=== PATIENT | male | born 1990 | race Caucasian/White ===

== ENCOUNTER 2017-10-03 16:45 | Inpatient (IN) | payer OTHER ==
[~2017-10-03] VITALS: Ht 182.9 cm; Wt 95.7 kg
[~2017-10-03 16:45] MED LIST: ALBU17I; ALLE24TA OR; AUGM875 PO; FLUTI44I INH; METH500T3 PO; NAPR-576 PO
[2017-10-03 16:46] VITALS: BP 120/62; PULSE 155; RESP 18; TEMP 101; O2SAT 98
[2017-10-03] MEDS ORDERED: ACETAMINOPHEN 500 MG CPLT PO ONE (17:30)
--- NOTE | 2017-10-03 17:56 | PD ---
HPI Chief Complaint: Cold / Flu Symptoms Time Seen by Provider: 17:54 Travel History International Travel<30 days: No Contact w/Intl Traveler<30days: No Traveled to known affect area: No History of Present Illness HPI 27-year-old male with remote history of IV drug abuse, states he last used heroin 2 months ago, presents to the emergency department for evaluation of 8 days of body aches, 7 days of diarrhea with development of subjective fever yesterday. Patient denies any nausea or vomiting. He denies any chest pain. States that he is short of breath and feels anxious. This has developed within the last 24 hours. Patient does have a cough with clear sputum. Denies any history of endocarditis. Denies any abdominal pain. Does report some left back pain, worse while lying flat. Patient also reports generalized weakness. He has no other symptoms to report at this time. [facility] Past Medical History Asthma: Yes Social History Alcohol Use: No Tobacco Use: Yes Substance Use: No Allergies-Medications (Allergen,Severity, Reaction): Coded Allergies: erythromycin base (Verified Allergy, Severe, Nausea/Vomiting, 10/03/17) raspberry (Unverified Allergy, Mild, 10/03/17) Reported Meds & Prescriptions Reported Meds & Active Scripts Active Robaxin (Methocarbamol) 500 Mg Tab 500 Mg PO QID Naproxen 500 Mg Tab 500 Mg PO BID Flovent Hfa (Fluticasone Propionate) 44 Mcg Aero 2 Puff INH BID Kelsie-D 24 Hour Allergy (Fexofenadine-Pseudoephedrine) 24 Hour Tab 24 Hour OR DAILY Augmentin (Amoxicillin/Clavulanate Potassium) 875 Mg Tab 875 Mg PO BID Reported Proventil Mdi (Albuterol Sulfate) 17 Gm Aero Review of Systems Except as stated in HPI: all other systems reviewed are Neg Physical Exam Narrative GENERAL: Well-nourished but toxic-appearing male patient, lying in bed, and mild distress. SKIN: Focused skin assessment warm/dry. HEAD: Atraumatic. Normocephalic. EYES: Pupils equal and round. No scleral icterus. No injection or drainage. ENT: No nasal bleeding or discharge. Mucous membranes dry. NECK: Trachea midline. No JVD. CARDIOVASCULAR: Tachycardic. No murmur appreciated. RESPIRATORY: Tachypneic mild accessory muscle use. Clear to auscultation. Breath sounds equal bilaterally. GASTROINTESTINAL: Abdomen soft, non-tender, nondistended. Hepatic and splenic margins not palpable. MUSCULOSKELETAL: No obvious deformities. No clubbing. No cyanosis. Trace lower extremity edema. Distal pulses are palpable. Cap refills within normal limits. NEUROLOGICAL: Awake and alert. No obvious cranial nerve deficits. Motor grossly within normal limits. Normal speech. Data Data Last Documented VS Vital Signs Date Time Temp Pulse Resp B/P (MAP) Pulse Ox O2 Delivery O2 Flow Rate FiO2 10/03/17 17:58 142 24 115/57 (76) 94 Room Air 10/03/17 16:46 101.0 Orders Orders Sepsis Workup Initiated (10/03/17 ) Complete Blood Count With Diff (10/03/17 17:01) Comprehensive Metabolic Panel (10/03/17 17:01) Urinalysis - C+S If Indicated (10/03/17 17:01) Lactic Acid Sepsis Protocol (10/03/17 17:01) Influenzae A/B Antigen (10/03/17 17:03) Electrocardiogram (10/03/17 ) Acetaminophen (Tylenol) (10/03/17 17:30) Westergren Sedimentation Rate (10/03/17 17:56) Sodium Chlor 0.9% 1000 Ml Inj (Ns 1000 M (10/03/17 17:57) Sodium Chlor 0.9% 1000 Ml Inj (Ns 1000 M (10/03/17 17:57) Sodium Chlor 0.9% 1000 Ml Inj (Ns 1000 M (10/03/17 17:57) Urine Culture (10/03/17 17:45) Chest, Single Ap (10/03/17 ) Vancomycin Inj (Vancomycin Inj) (10/03/17 18:30) Piperacil-Tazo 3.375 Gm Premix (Zosyn 3. (10/03/17 18:30) Admit Order (Ed Use Only) (10/03/17 18:42) Arterial Blood Gas (Abg) (10/03/17 ) Labs Laboratory Tests Test 10/03/17 17:30 10/03/17 17:45 Blood Urea Nitrogen 55 MG/DL Creatinine 2.21 MG/DL Random Glucose 109 MG/DL Total Protein 7.6 GM/DL Albumin 2.0 GM/DL Calcium Level 7.8 MG/DL Alkaline Phosphatase 109 U/L Aspartate Amino Transf (AST/SGOT) 25 U/L Alanine Aminotransferase (ALT/SGPT) 23 U/L Total Bilirubin 2.0 MG/DL Sodium Level 128 MEQ/L Potassium Level 3.2 MEQ/L Chloride Level 94 MEQ/L Carbon Dioxide Level 21.1 MEQ/L Anion Gap 13 MEQ/L Estimat Glomerular Filtration Rate 36 ML/MIN Lactic Acid Level 2.9 mmol/L Urine Color DARK-YELLOW Urine Turbidity HAZY Urine pH 5.5 Urine Specific [place] 1.018 Urine Protein 100 mg/dL Urine Glucose (UA) NEG mg/dL Urine Ketones NEG mg/dL Urine Occult Blood SMALL Urine Nitrite NEG Urine Bilirubin SMALL Urine Urobilinogen 4.0 MG/DL Urine Leukocyte Esterase SMALL Urine RBC 3 /hpf Urine WBC 12 /hpf Urine Bacteria RARE /hpf Urine Hyaline Casts 7 /lpf Urine Granular Casts 8 /lpf Microscopic Urinalysis Comment CULTURE INDICATED MDM Medical Decision Making Medical Screen Exam Complete: Yes Emergency Medical Condition: Yes Medical Record Reviewed: Yes Differential Diagnosis Sepsis versus pneumonia versus endocarditis versus PE Narrative Course 27-year-old male presents to emergency department for evaluation. Patient appears not well. He is tachycardic, tachypneic, and oxygen saturation on room air is 84-85%. Sepsis workup has been initiated. Discussed the patient my attending physician is also assessed the patient. Patient is given IV fluid boluses with IV Zosyn and IV Cipro vancomycin. I I discussed the patient with Dr. Mcallister, army manager personnel generalist manager. Patient will be admitted to the intensive care unit. CBC has not yet resulted as it is a reflex. Chest x-ray has not yet been completed. Laboratory Tests Test 10/03/17 17:30 10/03/17 17:45 Blood Urea Nitrogen 55 MG/DL Creatinine 2.21 MG/DL Random Glucose 109 MG/DL Total Protein 7.6 GM/DL Albumin 2.0 GM/DL Calcium Level 7.8 MG/DL Alkaline Phosphatase 109 U/L Aspartate Amino Transf (AST/SGOT) 25 U/L Alanine Aminotransferase (ALT/SGPT) 23 U/L Total Bilirubin 2.0 MG/DL Sodium Level 128 MEQ/L Potassium Level 3.2 MEQ/L Chloride Level 94 MEQ/L Carbon Dioxide Level 21.1 MEQ/L Anion Gap 13 MEQ/L Estimat Glomerular Filtration Rate 36 ML/MIN Lactic Acid Level 2.9 mmol/L Urine Color DARK-YELLOW Urine Turbidity HAZY Urine pH 5.5 Urine Specific [place] 1.018 Urine Protein 100 mg/dL Urine Glucose (UA) NEG mg/dL Urine Ketones NEG mg/dL Urine Occult Blood SMALL Urine Nitrite NEG Urine Bilirubin SMALL Urine Urobilinogen 4.0 MG/DL Urine Leukocyte Esterase SMALL Urine RBC 3 /hpf Urine WBC 12 /hpf Urine Bacteria RARE /hpf Urine Hyaline Casts 7 /lpf Urine Granular Casts 8 /lpf Microscopic Urinalysis Comment CULTURE INDICATED Diagnosis Primary Impression: Sepsis Qualified Codes: A41.9 - Sepsis, unspecified organism Admitting Information Admitting Physician Requests: Admit Condition: Stable LinetteGeraldine MCKEON Oct 03, 2017 17:56
[2017-10-03] MEDS ORDERED: SODIUM CHLOR 0.9% 1000 ML INJ 700 ML IV ONE (17:57)
[2017-10-03] MEDS ORDERED: SODIUM CHLOR 0.9% 1000 ML INJ 1,000 ML IV ONE ×2 (17:57)
[2017-10-03 17:58] VITALS: BP 115/57; PULSE 142; RESP 24; O2SAT 94
[2017-10-03 18:15] LABS: BACTERIA, URINE RARE /hpf; BILIRUBIN, URINE SMALL (NEG); BLOOD, URINE SMALL (NEG); GLUCOSE,URINE NEG (NEG); HYALINE CAST, URINE 7 /lpf (RARE); KETONE, URINE NEG (NEG); NITRITE,URINE NEG (NEG); PH, URINE 5.5 (5.0-8.5); URINE COLOR DARK-YELLOW (YELLW/STRAW); URINE LEUKOCYTE ESTERASE SMALL (NEG)
[2017-10-03 18:21] LABS: ALT (GPT) 23 U/L (12-78); AST (GOT) 25 U/L (15-37); BICARBONATE 21.1 MEQ/L (21.0-32.0); BLOOD UREA NITROGEN 55 MG/DL (7-18); CALCIUM 7.8 MG/DL (8.5-10.1); CHLORIDE 94 MEQ/L (98-107); CREATININE 2.21 MG/DL (0.60-1.30); GLOMERULAR FILTRATION RATE 36 ML/MIN (>89); GLUCOSE,RANDOM 109 MG/DL (74-106); SODIUM (NA) 128 MEQ/L (136-145)
[2017-10-03 18:24] LABS: ALKALINE PHOSPHATASE 109 U/L (45-117); TOTAL PROTEIN 7.6 GM/DL (6.4-8.2)
[2017-10-03 18:25] LABS: LACTIC ACID SEPSIS PROTOCOL 2.9 mmol/L (0.4-2.0)
[2017-10-03] MEDS ORDERED: VANCOMYCIN INJ 1,000 MG in SODIUM CHLOR 0.9% 250 ML INJ 250 ML IV ONE (18:30)
[2017-10-03] MEDS ORDERED: PIPERACIL-TAZO 3.375 GM PREMIX 50 ML IV SCH (18:30)
--- NOTE | 2017-10-03 18:56 | PD ---
Physical Exam Date Seen by Provider: Oct 03, 2017 Time Seen by Provider: 18:00 Narrative I, Dr. Sr , have reviewed the advance practice practitioner's documentation and am in agreement, met with the patient face to face, made the diagnosis, and the medical decision making was done by me. *My assessment and Findings: Patient seen and evaluated with nurse practitioner , please see practitioner note for further details, history of IV drug use, here for fevers, general weakness, dizziness, fairly tachycardic and hypoxic, fevers of 102, concerning for underlying sepsis. He is tachycardic as well and IV fluids are initiated in the ER. Sepsis protocol initiated in the ER. Considering the history of IV drug use, clear lungs, there is great concern for underlying endocarditis as well. Vancomycin and Zosyn was initiated in the ER. EKG shows sinus tachycardia. Laboratory Tests Test 10/03/17 17:30 10/03/17 17:45 Blood Urea Nitrogen 55 MG/DL (7-18) Creatinine 2.21 MG/DL (0.60-1.30) Random Glucose 109 MG/DL (74-106) Albumin 2.0 GM/DL (3.4-5.0) Calcium Level 7.8 MG/DL (8.5-10.1) Total Bilirubin 2.0 MG/DL (0.2-1.0) Sodium Level 128 MEQ/L (136-145) Potassium Level 3.2 MEQ/L (3.5-5.1) Chloride Level 94 MEQ/L (98-107) Estimat Glomerular Filtration Rate 36 ML/MIN (>89) Lactic Acid Level 2.9 mmol/L (0.4-2.0) Urine Color DARK-YELLOW (YELLW/STRAW) Urine Turbidity HAZY (CLEAR) Urine Protein 100 mg/dL (NEG-TRACE) Urine Occult Blood SMALL (NEG) Urine Bilirubin SMALL (NEG) Urine Urobilinogen 4.0 MG/DL (LESS THAN Urine Leukocyte Esterase SMALL (NEG) Urine WBC 12 /hpf (0-5) Urine Bacteria RARE /hpf (NONE) Lactate level is fairly elevated and patient is dehydrated with elevated BUN and creatinine a low sodium. Considering symptoms and history, my plan would be to admit the patient for further treatment in the ICU. Case has been discussed with Dr. Mcallister for admission. Aggregate critical care time was 30 minutes. Time to perform other separately billable procedures was not included in the critical care time. My time did not include minutes spent treating any other patients simultaneously or on activities that did not directly contribute to the patient's treatment. The services I provided to this patient were to treat and/or prevent clinically significant deterioration that could result in: Septic shock, cardiopulmonary compromise, endocarditis, I provided critical care services requiring my management, as noted below: Chart data review, documentation time, medication orders and management, vital sign assessments/reviewing monitor data, ordering and reviewing lab tests, ordering and interpreting/reviewing x-rays and diagnostic studies, care of the patient and discussion of the patient with the admitting physicians. Data Data Last Documented VS Vital Signs Date Time Temp Pulse Resp B/P (MAP) Pulse Ox O2 Delivery O2 Flow Rate FiO2 10/03/17 17:58 142 24 115/57 (76) 94 Room Air 10/03/17 16:46 101.0 Orders Orders Sepsis Workup Initiated (10/03/17 ) Complete Blood Count With Diff (10/03/17 17:01) Comprehensive Metabolic Panel (10/03/17 17:01) Urinalysis - C+S If Indicated (10/03/17 17:01) Lactic Acid Sepsis Protocol (10/03/17 17:01) Influenzae A/B Antigen (10/03/17 17:03) Electrocardiogram (10/03/17 ) Acetaminophen (Tylenol) (10/03/17 17:30) Westergren Sedimentation Rate (10/03/17 17:56) Sodium Chlor 0.9% 1000 Ml Inj (Ns 1000 M (10/03/17 17:57) Sodium Chlor 0.9% 1000 Ml Inj (Ns 1000 M (10/03/17 17:57) Sodium Chlor 0.9% 1000 Ml Inj (Ns 1000 M (10/03/17 17:57) Urine Culture (10/03/17 17:45) Chest, Single Ap (10/03/17 ) Vancomycin Inj (Vancomycin Inj) (10/03/17 18:30) Piperacil-Tazo 3.375 Gm Premix (Zosyn 3. (10/03/17 18:30) Admit Order (Ed Use Only) (10/03/17 18:42) Arterial Blood Gas (Abg) (10/03/17 ) Labs Laboratory Tests Test 10/03/17 17:30 10/03/17 17:45 Blood Urea Nitrogen 55 MG/DL Creatinine 2.21 MG/DL Random Glucose 109 MG/DL Total Protein 7.6 GM/DL Albumin 2.0 GM/DL Calcium Level 7.8 MG/DL Alkaline Phosphatase 109 U/L Aspartate Amino Transf (AST/SGOT) 25 U/L Alanine Aminotransferase (ALT/SGPT) 23 U/L Total Bilirubin 2.0 MG/DL Sodium Level 128 MEQ/L Potassium Level 3.2 MEQ/L Chloride Level 94 MEQ/L Carbon Dioxide Level 21.1 MEQ/L Anion Gap 13 MEQ/L Estimat Glomerular Filtration Rate 36 ML/MIN Lactic Acid Level 2.9 mmol/L Urine Color DARK-YELLOW Urine Turbidity HAZY Urine pH 5.5 Urine Specific [place] 1.018 Urine Protein 100 mg/dL Urine Glucose (UA) NEG mg/dL Urine Ketones NEG mg/dL Urine Occult Blood SMALL Urine Nitrite NEG Urine Bilirubin SMALL Urine Urobilinogen 4.0 MG/DL Urine Leukocyte Esterase SMALL Urine RBC 3 /hpf Urine WBC 12 /hpf Urine Bacteria RARE /hpf Urine Hyaline Casts 7 /lpf Urine Granular Casts 8 /lpf Microscopic Urinalysis Comment CULTURE INDICATED MDM Medical Record Reviewed: Yes Supervised Visit with TRAVIS: Yes Sepsis Criteria SIRS Criteria (2 or more): Heart rate over 90 Severe Sepsis (+one): Hypotension, Lactate >2, Acute Oliguria/Renal Failure Criteria Outcome: Meets severe sepsis criteria Diagnosis Primary Impression: Sepsis Qualified Codes: A41.9 - Sepsis, unspecified organism Admitting Information Admitting Physician Requests: Admit Condition: Stable Jose E Sr MD Oct 03, 2017 18:56
--- NOTE | 2017-10-03 19:19 | RADRPT ---
EXAM DATE/TIME: 10/03/2017 18:55 [place] COMPARISON: No previous studies available for comparison. INDICATIONS : Short of breath. MEDICAL HISTORY : None. SURGICAL HISTORY : None. ENCOUNTER: Initial ACUITY: 4 - 6 days PAIN SCORE: 3/10 LOCATION: Bilateral chest FINDINGS: A single view of the chest demonstrates scattered bilateral pulmonary infiltrates especially involvin g the mid to lower lung valdovinos. The heart size is upper limits of normal. No definite pleural effusio ns are demonstrated. The bony structures are grossly intact.. CONCLUSION: Bilateral patchy pulmonary infiltrates involving the mid to lower lung field bilaterally suggestive o f bilateral pneumonia. Victorino Vang MD on October 03, 2017 at 19:16 Board Certified Radiologist. This report was verified electronically.
[2017-10-03 19:33] VITALS: BP 120/56; PULSE 130; RESP 28; O2SAT 93
[2017-10-03 19:44] LABS: AUTOMATED NEUTROPHIL # 12.9 TH/MM3 (1.8-7.7); BASOPHIL % 0.2 % (0.0-2.0); EOSINOPHIL % 0.2 % (0.0-4.0); HEMOGLOBIN 8.8 GM/DL (13.0-17.0); LYMPH % 5.2 % (9.0-44.0); LYMPHOCYTE # 0.8 TH/MM3 (1.0-4.8); MEAN CELL VOLUME 83.6 FL (80.0-100.0); MEAN CORPUSCULAR HEMOGLOBIN 29.3 PG (27.0-34.0); MEAN CORPUSCULAR HGB CONC 35.1 % (32.0-36.0); MEAN PLATELET VOLUME 9.5 FL (7.0-11.0); MONO % 7.4 % (0.0-8.0); MONOCYTE # 1.1 TH/MM3 (0-0.9); RED BLOOD COUNT 2.99 MIL/MM3 (4.50-5.90); WHITE BLOOD COUNT 14.8 TH/MM3 (4.0-11.0)
[2017-10-03 20:08] LABS: PLATELET COUNT 120 TH/MM3 (150-450)
[2017-10-03 20:12] LABS: BANDS 11 % (0-6); LYMPHOCYTES 2 % (9-44); MONOCYTES 3 % (0-8); NEUTROPHIL # MANUAL DIFF 14.1 TH/MM3 (1.8-7.7); POLYS (SEG NEUTROPHILS) 84 % (16-70)
[2017-10-03 20:13] LABS: DOHLE BODIES PRESENT (NONE SEEN); TOXIC GRANULATION 1+ (NORMAL); TOXIC VACUOLATION PRESENT (NONE SEEN)
--- NOTE | 2017-10-03 20:16 | HHI.HP ---
[facility] Service Critical Care Medicine Primary Care Physician No Primary Care Physician Admission Diagnosis SEVERE SEPSIS; HYPOXIA Diagnosis: Travel History International Travel<30 Days: No Contact w/Intl Traveler <30 Da: No Traveled to Known Affected Are: No History of Present Illness 27-year-old male with remote history of IV drug abuse, states he last used heroin 2 months ago, presents for evaluation of 8 days of body aches, 7 days of diarrhea with development of subjective fever yesterday. Patient denies any nausea or vomiting. He denies any chest pain. States that he is short of breath and feels anxious. This has developed within the last 24 hours. Patient does have a cough with clear sputum. Denies any prior history of endocarditis. Denies any abdominal pain. Does report some left back pain, worse while lying flat. He is well reports generalized weakness. Review of Systems Constitutional: COMPLAINS OF: Diaphoretic episodes, Fatigue, Fever, Chills, Dizziness, Night Sweats, DENIES: Weight gain, Weight loss, Change in appetite Endocrine: DENIES: Heat/cold intolerance, Polydipsia, Polyuria, Polyphagia Eyes: DENIES: Blurred vision, Diplopia, Eye inflammation, Eye pain, Vision loss , Photosensitivity, Double Vision Ears, nose, mouth, throat: DENIES: Tinnitus, Hearing loss, Vertigo, Nasal discharge, Oral lesions, Throat pain, Hoarseness, Ear Pain, Running Nose, Epistaxis, Sinus Pain, Toothache, Odynophagia Respiratory: COMPLAINS OF: Cough, Sputum production, Shortness of breath, DENIES: Apneas, Snoring, Wheezing, Hemoptysis Cardiovascular: DENIES: Chest pain, Palpitations, Syncope, Dyspnea on Exertion , PND, Lower Extremity Edema, Orthopnea, Claudication Gastrointestinal: COMPLAINS OF: Diarrhea, DENIES: Abdominal pain, Black stools , Bloody stools, Constipation, Nausea, Vomiting, Difficulty Swallowing, Anorexia Genitourinary: DENIES: Sexual dysfunction, Urinary frequency, Urinary incontinence, Urgency, Hematuria, Dysuria, Nocturia, Penile Discharge, Testicular Pain, Testicular Swelling Musculoskeletal: COMPLAINS OF: Joint pain, Muscle aches, Back pain, DENIES: Stiffness, Joint Swelling, Neck pain Integumentary: DENIES: Abnormal pigmentation, Nail changes, Pruritus, Rash Hematologic/lymphatic: DENIES: Bruising, Lymphadenopathy Immunologic/allergic: DENIES: Eczema, Urticaria Neurologic: DENIES: Abnormal gait, Headache, Localized weakness, Paresthesias, Seizures, Speech Problems, Tremor, Poor Balance Psychiatric: DENIES: Anxiety, Confusion, Mood changes, Depression, Hallucinations, Agitation, Suicidal Ideation, Homicidal Ideation, Delusions Past Family Social History Allergies: Coded Allergies: erythromycin base (Verified Allergy, Severe, Nausea/Vomiting, 10/03/17) raspberry (Unverified Allergy, Mild, 10/03/17) Past Medical History Asthma Past Surgical History No surgical history Reported Medications Reported Meds & Active Scripts Active Robaxin (Methocarbamol) 500 Mg Tab 500 Mg PO QID Naproxen 500 Mg Tab 500 Mg PO BID Flovent Hfa (Fluticasone Propionate) 44 Mcg Aero 2 Puff INH BID Kelsie-D 24 Hour Allergy (Fexofenadine-Pseudoephedrine) 24 Hour Tab 24 Hour OR DAILY Augmentin (Amoxicillin/Clavulanate Potassium) 875 Mg Tab 875 Mg PO BID Reported Proventil Mdi (Albuterol Sulfate) 17 Gm Aero Active Ordered Medications Current Medications Medications (Trade) Dose Ordered Sig/Willem Route PRN Reason Start Time Stop Time Status Last Admin Dose Admin Sodium Chloride 1,000 ml @ 124 mls/hr Q8H4M IV 10/03/17 21:06 10/03/17 22:03 Sodium Chloride (NS Flush) 2 ml UNSCH PRN IV FLUSH FLUSH AFTER USING IV ACCESS 10/03/17 21:15 Sodium Chloride (NS Flush) 2 ml BID IV FLUSH 10/04/17 09:00 Acetaminophen (Tylenol) 650 mg Q6H PRN PO PAIN 1-5 AND/OR FEVER >101F 10/03/17 21:15 Morphine Sulfate (Morphine Inj) 2 mg Q2H PRN IV PUSH PAIN SCALE 6 TO 10 10/03/17 21:15 10/03/17 23:08 Famotidine (Pepcid Inj) 10 mg Q12HR IV PUSH 10/04/17 09:00 Lorazepam (Ativan Inj) 1 mg Q1H PRN IV PUSH Agitation/Sedation 10/03/17 21:15 Ondansetron HCl (Zofran Inj) 4 mg Q6H PRN IV PUSH NAUSEA OR VOMITING 10/03/17 21:15 Temazepam (Restoril) 15 mg HS PRN PO INSOMNIA 10/03/17 21:15 Albuterol/ Ipratropium (Duoneb Neb) 1 ampule Q6HR NEB INH 10/03/17 22:00 10/03/17 21:46 Albuterol/ Ipratropium (Duoneb Neb) 1 ampule Q2HR NEB PRN INH WHEEZING 10/03/17 21:15 Heparin Sodium (Porcine) (Heparin Inj) 5,000 units Q8H SQ 10/03/17 22:00 10/03/17 22:03 Miscellaneous Information 1 [id number] XX 10/03/17 21:15 Chlorhexidine Gluconate (Chlorhexidine 2% Cloth) 3 pack Taper DAILY@04 TOP 10/04/17 04:00 09/30/18 03:59 Chlorhexidine Gluconate (Chlorhexidine 2% Cloth) 3 pack UNSCH PRN TOP HYGIENIC CARE 10/03/17 21:15 Senna/Docusate Sodium (Renita-Colace) 1 tab BID PO 10/04/17 09:00 Magnesium Hydroxide (Milk Of Magnesia Liq) 30 ml Q12H PRN PO Mild constipation 10/03/17 21:15 Sennosides (Senokot) 17.2 mg Q12H PRN PO Moderate constipation 10/03/17 21:15 Bisacodyl (Dulcolax Supp) 10 mg DAILY PRN RECTAL SEVERE CONSITIPATION 10/03/17 21:15 Lactulose (Lactulose Liq) 30 ml DAILY PRN PO SEVERE CONSITIPATION 10/03/17 21:15 Pharmacy Profile Note 0 ml @ 0 mls/hr UNSCH OTHER 10/03/17 21:15 Piperacillin Sod/ Tazobactam Sod 100 ml @ 200 mls/hr Q6H IV 10/04/17 02:00 Azithromycin 500 mg/Sodium Chloride 250 ml @ 250 mls/hr Q24H IV 10/03/17 22:00 10/03/17 23:08 Family History No family history significant of malignancy Social History No alcohol abuse, positive for tobacco, he quit using heroin 2 months ago Physical Exam Vital Signs Vital Signs Date Time Temp Pulse Resp B/P (MAP) Pulse Ox O2 Delivery O2 Flow Rate FiO2 10/03/17 19:33 130 28 120/56 (77) 93 Nasal Cannula 4.00 10/03/17 17:58 142 24 115/57 (76) 94 Room Air 10/03/17 17:55 145 22 93 Room Air 10/03/17 16:46 101.0 155 18 120/62 (81) 98 Physical Exam GENERAL: Well-nourished, well-developed patient. SKIN: Warm and dry. HEAD: Normocephalic. EYES: No scleral icterus. No injection or drainage. NECK: Supple, trachea midline. No JVD or lymphadenopathy. CARDIOVASCULAR: Regular rate and rhythm without murmurs, gallops, or rubs. RESPIRATORY: Breath sounds equal bilaterally. No accessory muscle use. GASTROINTESTINAL: Abdomen soft, non-tender, nondistended. MUSCULOSKELETAL: No cyanosis, or edema. BACK: Nontender without obvious deformity. NEURO EXAM: GCS: 15 Mental Status: The patient is alert and oriented to person, place, and time with normal speech. Cranial Nerves: Visual acuity intact bilaterally. Visual valdovinos normal in all quadrants. Pupils are round, reactive to light. Extraocular movements are intact without ptosis. Hearing is normal bilaterally. Voice is normal. Tongue protrudes midline and moves symmetrically. Reflexes: Biceps, patellar, and Achilles are 2/4 bilaterally. No clonus. Sensation: Sensation is intact bilaterally to pain and light touch. Two-point discrimination is intact. Motor: Good muscle tone. Strength is 5/5 bilaterally. Cerebellar: [id number] and oizj-hu-[id number] test normal bilaterally. Laboratory Laboratory Tests Test 10/03/17 17:30 10/03/17 17:45 10/03/17 18:00 10/03/17 19:00 Blood Urea Nitrogen 55 Creatinine 2.21 Random Glucose 109 Total Protein 7.6 Albumin 2.0 Calcium Level 7.8 Alkaline Phosphatase 109 Aspartate Amino Transf (AST/SGOT) 25 Alanine Aminotransferase (ALT/SGPT) 23 Total Bilirubin 2.0 Sodium Level 128 Potassium Level 3.2 Chloride Level 94 Carbon Dioxide Level 21.1 Anion Gap 13 Estimat Glomerular Filtration Rate 36 Lactic Acid Level 2.9 Urine Color DARK-YELLOW Urine Turbidity HAZY Urine pH 5.5 Urine Specific [place] 1.018 Urine Protein 100 Urine Glucose (UA) NEG Urine Ketones NEG Urine Occult Blood SMALL Urine Nitrite NEG Urine Bilirubin SMALL Urine Urobilinogen 4.0 Urine Leukocyte Esterase SMALL Urine RBC 3 Urine WBC 12 Urine Bacteria RARE Urine Hyaline Casts 7 Urine Granular Casts 8 Microscopic Urinalysis Comment CULTURE INDICATED White Blood Count 14.8 Red Blood Count 2.99 Hemoglobin 8.8 Hematocrit 25.0 Mean Corpuscular Volume 83.6 Mean Corpuscular Hemoglobin 29.3 Mean Corpuscular Hemoglobin Concent 35.1 Red Cell Distribution Width 19.0 Platelet Count 120 Mean Platelet Volume 9.5 Neutrophils (%) (Auto) 87.0 Lymphocytes (%) (Auto) 5.2 Monocytes (%) (Auto) 7.4 Eosinophils (%) (Auto) 0.2 Basophils (%) (Auto) 0.2 Neutrophils # (Auto) 12.9 Lymphocytes # (Auto) 0.8 Monocytes # (Auto) 1.1 Eosinophils # (Auto) 0.0 Basophils # (Auto) 0.0 CBC Comment AUTO DIFF Differential Total Cells Counted 100 Neutrophils % (Manual) 84 Band Neutrophils % 11 Lymphocytes % 2 Monocytes % 3 Neutrophils # (Manual) 14.1 Differential Comment FINAL DIFF MANUAL Toxic Granulation 1+ Toxic Vacuolation PRESENT Dohle Bodies PRESENT Platelet Estimate LOW Platelet Morphology Comment ENLARGED Blood Gas Puncture Site LT RADIAL Blood Gas Patient Temperature 98.6 Venous Blood pH 7.47 Venous Blood Partial Pressure CO2 28 Venous Blood Partial Pressure O2 47 Venous Blood HCO3 20 Venous Blood Oxygen Saturation 79 Venous Blood Oxygen Content 7.8 Venous Blood Base Excess -2.9 Oxygen Delivery Device NASAL CANNULA Blood Gas Liter Flow 2 Blood Gas Inspired Oxygen 28 Date/Time Source Procedure Growth Status 10/03/17 17:40 Nasal Aspirate Influenza Types A,B Antigen (GIOVANA) - Final NEGATIVE FOR FLU A AND B ANTIGEN.... Complete 10/03/17 17:45 Urine Clean Catch Urine Culture Pending Worksheet Result Diagram: 10/03/17 1800 10/03/17 8250 Septic Shock Reassessment Septic shock perfusion: reassessment completed Caprini VTE Risk Assessment Caprini VTE Risk Assessment: Mod/High Risk (score >= 2) Caprini Risk Assessment Model Point Value = 1 Point Value = 2 Point Value = 3 Point Value = 5 Age 41-60 Minor surgery BMI > 25 kg/m2 Swollen legs Varicose veins or History of unexplained or recurrent spontaneous Oral contraceptives or hormone replacement Sepsis (< 1 month) Serious lung disease, including pneumonia (< 1 month) Abnormal pulmonary function Acute myocardial infarction Congestive heart failure (< 1 month) History of inflammatory bowel disease Medical patient at bed rest Age 61-74 Arthroscopic surgery Major open surgery (> 45 min) Laparoscopic surgery (> 45 min) Malignancy Confined to bed (> 72 hours) Immobilizing plaster cast Central venous access Age >= 75 History of VTE Family history of VTE Factor V Leiden Prothrombin [id number] Lupus anticoagulant Anticardiolipin antibodies Elevated serum homocysteine Heparin-induced thrombocytopenia Other congenital or acquired thrombophilia Stroke (< 1 month) Elective arthroplasty Hip, pelvis, or leg fracture Acute spinal cord injury (< 1 month) Prophylaxis Regimen Total Risk Factor Score Risk Level Prophylaxis Regimen 0-1 Low Early ambulation 2 Moderate Order ONE of the following: *Sequential Compression Device (SCD) *Heparin 5000 units SQ BID 3-4 Higher Order ONE of the following medications: *Heparin 5000 units SQ TID *Enoxaparin/Lovenox 40 mg SQ daily (WT < 150 kg, CrCl > 30 mL/min) *Enoxaparin/Lovenox 30 mg SQ daily (WT < 150 kg, CrCl > 10-29 mL/min) *Enoxaparin/Lovenox 30 mg SQ BID (WT < 150 kg, CrCl > 30 mL/min) AND/OR *Sequential Compression Device (SCD) 5 or more Highest Order ONE of the following medications: *Heparin 5000 units SQ TID (Preferred with Epidurals) *Enoxaparin/Lovenox 40 mg SQ daily (WT < 150 kg, CrCl > 30 mL/min) *Enoxaparin/Lovenox 30 mg SQ daily (WT < 150 kg, CrCl > 10-29 mL/min) *Enoxaparin/Lovenox 30 mg SQ BID (WT < 150 kg, CrCl > 30 mL/min) AND *Sequential Compression Device (SCD) Assessment and Plan Assessment and Plan Pneumonia - Broad-spectrum antibiotics - Panculture - Follow-up culture and sensitivity - De-escalate - Urine antigens - HIV testing Acute kidney injury - Severe dehydration - Aggressive IV fluids resuscitation - Strict I's and O's - Monitor trend of creatinine - Electrolytes replacement per ICU protocol Diarrhea - Likely bilateral - IV fluids and supportive care History of heroine abuse - HIV testing - Control for withdrawal DVT GI prophylaxis - Teds SCDs - Subcutaneous heparin - Pepcid Critical Care: The total critical care time was 35 minutes. Time to perform other separately billable procedures was not included in the critical care time. Abel Mcallister MD Oct 03, 2017 8:16 pm
[2017-10-03] MEDS ORDERED: CHLORHEXIDINE GLUCONATE 2 % 1 PACK (2 CLOTHS) TOP PRN (21:15)
[2017-10-03] MEDS ORDERED: LACTULOSE SYRUP 20 GM/30 ML CUP PO PRN (21:15)
[2017-10-03] MEDS ORDERED: BISACODYL 10 MG SUPP RECTAL PRN (21:15)
[2017-10-03] MEDS ORDERED: Vancomycin Consult Pharmacy 1 EA OTHER SCH (21:15)
[2017-10-03] MEDS ORDERED: SENNOSIDES 8.6 MG TAB PO PRN (21:15)
[2017-10-03] MEDS ORDERED: MISCELLANEOUS NURSING INFORMATION XX SCH (21:15)
[2017-10-03] MEDS ORDERED: MAGNESIUM HYDROXIDE SUSP 30 ML CUP PO PRN (21:15)
[2017-10-03] MEDS ORDERED: LORazepam 2 MG/ML VIAL IV PUSH ONE (21:45)
[2017-10-03] MEDS: RESP: ALBUTEROL 2.5 MG/IPRATROPIUM 0.5 MG NEB (SCH) INH (21:46)
[2017-10-03 21:50] VITALS: O2SAT 96
[2017-10-03] MEDS: HEPARIN SODIUM - SQ 10,000 UNITS/ML VIAL SQ SCH (22:03)
[2017-10-03] MEDS: SODIUM CHLOR 0.9% 1000 ML INJ 1,000 ML IV SCH (22:03)
[2017-10-03 22:18] VITALS: BP 121/59; PULSE 123; RESP 26; TEMP 98.8; O2SAT 95
[2017-10-03 23:00] VITALS: BP 124/57; PULSE 124; RESP 24; TEMP 98.8; O2SAT 95
[2017-10-03] MEDS ORDERED: VANCOMYCIN 1,000 MG/NS 250 ML IV ONE ×2 (23:00)
[2017-10-03] MEDS: AZITHROMYCIN INJ 500 MG in SODIUM CHLOR 0.9% 250 ML INJ 250 ML IV SCH (23:08)
[2017-10-03] MEDS: MORPHINE SULFATE 4 MG/ML INJ IV PUSH PRN (23:08)
[2017-10-04] VITALS (24 sets, daily range): BP systolic 98–125; BP diastolic 54–79; PULSE 113–145; RESP 20–48; TEMP 99.2–103; O2SAT 88–100
[2017-10-04] MEDS ORDERED: POTASSIUM PHOSPHATE MONOBASIC 500 MG TAB PO PRN (01:00)
[2017-10-04] MEDS ORDERED: MAGNESIUM SULFATE INJ 2 GM in SODIUM CHLORIDE 0.9% INJ 96 ML IV PRN (01:00)
[2017-10-04] MEDS ORDERED: POTASSIUM CHLOR 40 MEQ PREMIX 100 ML IV PRN ×2 (01:00)
[2017-10-04] MEDS ORDERED: SODIUM PHOSPHATE INJ 30 MMOL in SODIUM CHLOR 0.9% 250 ML INJ 240 ML IV PRN (01:00)
[2017-10-04] MEDS ORDERED: POTASSIUM PHOSPHATE MONOBASIC 500 MG TAB PO/TUBE PRN (01:00)
[2017-10-04] MEDS ORDERED: MAGNESIUM OXIDE 400 MG TAB PO PRN (01:00)
[2017-10-04] MEDS ORDERED: MAGNESIUM SULFATE INJ 4 GM in SODIUM CHLORIDE 0.9% INJ 92 ML IV PRN (01:00)
[2017-10-04] MEDS ORDERED: POTASSIUM CHLOR 20 MEQ PREMIX 100 ML IV PRN ×2 (01:00)
[2017-10-04] MEDS ORDERED: POTASSIUM PHOSPHATE INJ 30 MMOL in SODIUM CHLOR 0.9% 250 ML INJ 250 ML IV PRN (01:00)
[2017-10-04] MEDS ORDERED: POTASSIUM CHLORIDE 25 MEQ EFFERVESCENT TAB PO PRN (01:00)
[2017-10-04] MEDS ORDERED: SODIUM CHLOR 0.9% 1000 ML INJ 1,000 ML IV ONE ×5 (01:00→12:30)
[2017-10-04] MEDS: MORPHINE SULFATE 4 MG/ML INJ IV PUSH PRN ×5 (01:20→12:54)
[2017-10-04] MEDS: ACETAMINOPHEN 325 MG TAB PO PRN ×2 (01:39→11:44)
[2017-10-04] MEDS: PIPERACIL-TAZO 4.5 GM PREMIX 100 ML IV SCH ×4 (02:18→20:00)
[2017-10-04] MEDS: CHLORHEXIDINE GLUCONATE 2 % 1 PACK (2 CLOTHS) TOP SCH (04:00)
[2017-10-04] MEDS: RESP: ALBUTEROL 2.5 MG/IPRATROPIUM 0.5 MG NEB (SCH) INH ×4 (04:00→20:27)
[2017-10-04 04:08] LABS: INTERNATIONAL NORMALIZED RATIO 1.4 RATIO; MEAN CORPUSCULAR HEMOGLOBIN 30.2 PG (27.0-34.0); MEAN PLATELET VOLUME 8.7 FL (7.0-11.0); PLATELET COUNT 93 TH/MM3 (150-450); PROTHROMBIN TIME - PATIENT 14.4 SEC (9.8-11.6); RED BLOOD COUNT 2.19 MIL/MM3 (4.50-5.90); RED CELL DISTRIBUTION WIDTH 18.8 % (11.6-17.2); WHITE BLOOD COUNT 8.9 TH/MM3 (4.0-11.0)
[2017-10-04 04:28] LABS: ALBUMIN 1.4 GM/DL (3.4-5.0); BICARBONATE 22.2 MEQ/L (21.0-32.0); CALCIUM 6.4 MG/DL (8.5-10.1); CREATININE 1.21 MG/DL (0.60-1.30); MAGNESIUM 2.2 MG/DL (1.5-2.5); PHOSPHORUS 3.4 MG/DL (2.5-4.9); TOTAL BILIRUBIN ADULT 1.2 MG/DL (0.2-1.0); TOTAL PROTEIN 5.8 GM/DL (6.4-8.2)
[2017-10-04] MEDS: HEPARIN SODIUM - SQ 10,000 UNITS/ML VIAL SQ SCH (05:08)
[2017-10-04 05:09] LABS: HEMATOCRIT 18.4 % (39.0-51.0); HEMOGLOBIN 6.6 GM/DL (13.0-17.0)
[2017-10-04] MEDS: SODIUM CHLOR 0.9% 1000 ML INJ 1,000 ML IV SCH ×3 (05:10→22:10)
[2017-10-04] MEDS ORDERED: POTASSIUM CHLORIDE 20 MEQ CONTROLLED RELEASE TAB PO ONE (06:00)
[2017-10-04] MEDS: POTASSIUM CHLOR 20 MEQ PREMIX 100 ML IV SCH ×2 (06:15→08:12)
[2017-10-04 07:42] LABS: BANDS 10 % (0-6); LYMPHOCYTES 1 % (9-44); MONOCYTES 8 % (0-8); POLYS (SEG NEUTROPHILS) 80 % (16-70)
[2017-10-04] MEDS: FAMOTIDINE 20 MG/2 ML VIAL IV PUSH SCH ×2 (08:09→22:33)
[2017-10-04] MEDS: LORazepam 2 MG/ML VIAL IV PUSH PRN ×3 (08:09→12:14)
[2017-10-04] MEDS: DOCUSATE SODIUM 50 MG/SENNA 8.6 MG TAB PO SCH ×2 (08:10→22:33)
[2017-10-04] MEDS: SODIUM CHLORIDE 0.9% FLUSH 10 ML FLUSH IV FLUSH SCH ×2 (08:12→22:10)
[2017-10-04] MEDS: FLUTICASONE PROPIONATE 44 MCG/ACT 10.6 GM INHALER INH SCH ×2 (09:00→21:00)
[2017-10-04] MEDS: METHOCARBAMOL 500 MG TAB PO SCH ×4 (09:00→22:33)
--- NOTE | 2017-10-04 12:22 | HHI.CCPN ---
Subjective Remarks/Hospital Course 27-year-old male with remote history of IV drug abuse, states he last used heroin 2 months ago, presents for evaluation of 8 days of body aches, 7 days of diarrhea with development of subjective fever yesterday. Patient denies any nausea or vomiting. He denies any chest pain. States that he is short of breath and feels anxious. This has developed within the last 24 hours. Patient does have a cough with clear sputum. Denies any prior history of endocarditis. Denies any abdominal pain. Does report some left back pain, worse while lying flat. He is well reports generalized weakness. 10/04/17: He is critically ill, remains febrile up to 103, tachycardic diaphoretic. large tricuspid valve vegetation on bedside echo, formal echo pending. Infectious disease consulted, CT surgery consult ordered. D/W Dr. Macias and Dr. Charles. CARMEN/senior revenue accountant consult ordered. Hb 6.6 getting 2U PRBC Objective Vital Signs Date Time Temp Pulse Resp B/P (MAP) Pulse Ox O2 Delivery O2 Flow Rate FiO2 10/04/17 11:13 103.0 134 28 103/59 97 10/04/17 07:42 Nasal Cannula 2.00 Intake and Output 10/04/17 10/04/17 10/05/17 08:00 16:00 00:00 Intake Total 5200 ml 530 ml Output Total 1150 ml Balance 4050 ml 530 ml Result Diagram: 10/04/17 0331 10/04/17 0331 Other Results Microbiology Date/Time Source Procedure Growth Status 10/03/17 17:40 Nasal Aspirate Influenza Types A,B Antigen (GIOVANA) - Final NEGATIVE FOR FLU A AND B ANTIGEN.... Complete 10/03/17 21:30 Urine Random Urine Legionella Antigen - Final PRESUMPTIVE NEGATIVE FOR LEGIONELLA P... Complete 10/03/17 21:30 Urine Random Urine Streptococcus pneumoniae Antigen (M - Final PRESUMPTIVE NEGATIVE FOR STREPTOCOCCU... Complete Laboratory Tests Test 10/03/17 19:00 Blood Gas Puncture Site LT RADIAL Blood Gas Patient Temperature 98.6 Venous Blood pH 7.47 (7.360-7.400) Venous Blood Partial Pressure CO2 28 mmHg (44-48) Venous Blood Partial Pressure O2 47 mmHg (35-40) Venous Blood HCO3 20 mmol/L (22-26) Venous Blood Oxygen Saturation 79 % (70-76) Venous Blood Oxygen Content 7.8 Vol % (9.0-17.0) Venous Blood Base Excess -2.9 mmol/L (-2-2) Oxygen Delivery Device NASAL CANNULA Blood Gas Liter Flow 2 L/M Blood Gas Inspired Oxygen 28 % Objective Remarks GENERAL: Well-nourished, well-developed patient. Critically ill, tachypneic diaphoretic and tachycardic SKIN: Warm and dry. Extensive tattoos limit skin exam HEAD: Normocephalic. EYES: No scleral icterus. No injection or drainage. NECK: Supple, trachea midline. No JVD or lymphadenopathy. CARDIOVASCULAR: Tachycardic, heart rate in 140s. S1-S2 normal with systolic murmur at the left sternal border. Large TV vegetation on bedside echo RESPIRATORY: Tachypnea. Using accessory muscle use. Coarse rhonchi and crackles GASTROINTESTINAL: Abdomen soft, non-tender, nondistended. MUSCULOSKELETAL: No cyanosis, or edema. NEURO EXAM: The patient is alert and oriented to person, place, and time with normal speech. Pupils are round, reactive to light. Motor and sensory exam grossly normal A/P Assessment and Plan Neuro IVDU: Watch closely for withdrawal -Use Ativan and morphine as needed Resp: Acute hypoxemic respiratory failure Probable septic emboli to the lung -Proceed with endotracheal intubation due to hypoxemic respiratory failure, and to facilitate CARMEN - Broad-spectrum antibiotics - DuoNeb q6hr and PRN - Panculture, Follow-up culture and sensitivity - Urine antigens - HIV testing CVS: Large tricuspid valve vegetation/ Severe sepsis - Bedside echo shows mild tricuspid regurgitation - Cardiology and CT surgery consult - Need CARMEN GI: Diarrhea - NPO, IV famotidine : Acute kidney injury - Severe dehydration - Aggressive IV fluids resuscitation - Strict I's and O's - Monitor trend of creatinine - Electrolytes replacement per ICU protocol ID: Tricuspid valve lymphadenitis Severe sepsis - SEE CVS plan for details. - Continue Zosyn and vancomycin for now - Infectious disease in home sales consultant, CARMEN pending Endo: -Electrolyte replacement per protocol Heme: Anemia requiring transfusion Thrombocytopenia - Transfuse 2 units PRBC - Monitor CBC, Coags - Thrombocytopenia base most likely from sepsis and DIC DVT GI prophylaxis - Teds SCDs - Avoid chemical DVT prophylaxis due to blood loss - Pepcid Critical Care: The total critical care time was 55 minutes. Time to perform other separately billable procedures was not included in the critical care time. Physician D/W Melvin Harmon, and Jaki Brown MD Oct 04, 2017 12:22
--- NOTE | 2017-10-04 12:48 | ECHRPT ---
Indication: endocarditis CONCLUSIONS Mildly dilated left ventricle. Hyperdynamic left ventricular systolic function is mildly reduced with an estimated ejection fractio n in the range of 45-50%. [id number] mitral valve regurgitation. No aortic valve regurgitation. There is mild tricuspid valve regurgitation. The estimated pulmonary arterial pressure is 40.7 mmHg. two vegetations 2.1 x 3.2 2.6 x .8 at the tricuspid valve The estimated pulmonary arterial pressure is 40.7 mmHg. BP: / HR: Rhythm: MEASUREMENTS (Male / Female) Normal Values Technical Quality:Good 2D ECHO LV Diastolic Diameter PLAX 5.9 cm 4.2 - 5.9 / 3.9 - 5.3 cm LV Systolic Diameter PLAX 4.7 cm IVS Diastolic Thickness 1.0 cm 0.6 - 1.0 / 0.6 - 0.9 cm LVPW Diastolic Thickness 1.2 cm 0.6 - 1.0 / 0.6 - 0.9 cm LV Relative Wall Thickness 0.4 RV Internal Dim ED PLAX 2.8 cm M-MODE Aortic Root Diameter MM 3.5 cm LA Systolic Diameter MM 3.1 cm LA Ao Ratio MM 0.9 AV Cusp Separation MM 2.8 cm DOPPLER TR Peak Velocity 277.0 cm/s TR Peak Gradient 30.7 mmHg Right Atrial Pressure 10.0 mmHg Pulmonary Artery Systolic Pressu 40.7 mmHg Right Ventricular Systolic Press 40.7 mmHg FINDINGS LEFT VENTRICLE Mildly dilated left ventricle. The left ventricular systolic function is mildly reduced with an estimated ejection fraction in the range of 45- 50%. RIGHT VENTRICLE Normal right ventricular size and systolic function. LEFT ATRIUM The left atrial size is normal. RIGHT ATRIUM The right atrial size is normal. ATRIAL SEPTUM Normal atrial septal thickness without atrial level shunting by limited color doppler interrogation. AORTA The aortic root and proximal ascending aorta are normal in size on limited imaging. MITRAL VALVE Structurally normal mitral valve. [id number] mitral valve regurgitation. AORTIC VALVE Trileaflet aortic valve. No aortic valve regurgitation. TRICUSPID VALVE Structurally normal tricuspid valve. There is mild tricuspid valve regurgitation. The estimated pulmonary arterial pressure is 40.7 mmHg. two vegetations 2.1 x 3.2 2.6 x .8 The estimated pulmonary arterial pressure is 40.7 mmHg. PULMONARY VALVE No pulmonary valve regurgitation or stenosis. VESSELS The inferior vena cava is normal in size. PERICARDIUM No pericardial effusion. Carlos Enrique Nicolas MD (Electronically Signed) Final Date:04 October 2017 12:47
[2017-10-04] MEDS ORDERED: MIDAZOLAM HCL 5 MG/ML VIAL (1 ML) ONE ×2 (12:49→13:55)
[2017-10-04] MEDS ORDERED: ETOMIDATE 40 MG/20 ML VIAL ONE ×2 (12:49→13:56)
[2017-10-04] MEDS ORDERED: ROCURONIUM INJ 50 MG/5 ML VIAL IV ONE (14:00)
[2017-10-04] MEDS ORDERED: MIDAZOLAM HCL 5 MG/5 ML VIAL IV PUSH ONE (14:00)
[2017-10-04] MEDS ORDERED: ETOMIDATE 20 MG/10 ML VIAL IV PUSH ONE (14:00)
--- NOTE | 2017-10-04 14:22 | PD.ID.CON ---
History of Present Illness Service ID Consult Requested By Reason for Consult Evaluation and Mment of Severe Sepsis and Endocarditis. Primary Care Physician No Primary Care Physician Diagnoses: History of Present Illness Extremely poor historian. Most of the history was by review of medical records. Patient was being consented for Intubation and CARMEN. is a 27 y/o CM with remote history of IV drug abuse, states he last used heroin 2 months ago, presents for evaluation of body aches, 7 days of diarrhea with development of subjective fever yesterday. Patient denies any nausea or vomiting. He denies any chest pain. This has developed within the last 24 hours. Patient does have a cough with clear sputum. Denies any prior history of endocarditis. Denies any abdominal pain. Does report some left back pain, worse while lying flat. He is well reports generalized weakness. Patient met criteria for sepsis on admission. Flu antigen negative. CXR with bilateral infiltrates. performed a bedside 2D ECHO and verbally reported a large ~4.5 cm vegetation on TV. CXR suspicious for septic emboli. Blood cultures drawn but it appears patient has received augmentin at some point and cultures may possibly be negative. At the time of my evaluation patient is in the ICU, appears in respiratory distress there is a plan for intubation and CARMEN today. UO ok. No diarrhea, no rash. Not on pressors. ID is consulted for evaluation and Mment of Severe Sepsis and Endocarditis. Review of Systems ROS Limitations: Clinical Condition Constitutional: COMPLAINS OF: Diaphoretic episodes, Fever, Chills, DENIES: Fatigue, Weight gain, Weight loss, Dizziness, Change in appetite, Night Sweats Endocrine: DENIES: Heat/cold intolerance, Polydipsia, Polyuria, Polyphagia Eyes: DENIES: Blurred vision, Diplopia, Eye inflammation, Eye pain, Vision loss , Photosensitivity, Double Vision Ears, nose, mouth, throat: DENIES: Tinnitus, Hearing loss, Vertigo, Nasal discharge, Oral lesions, Throat pain, Hoarseness, Ear Pain, Running Nose, Epistaxis, Sinus Pain, Toothache, Odynophagia Respiratory: COMPLAINS OF: Sputum production, Shortness of breath, DENIES: Apneas, Cough, Snoring, Wheezing, Hemoptysis Cardiovascular: COMPLAINS OF: Chest pain, DENIES: Palpitations, Syncope, Dyspnea on Exertion, PND, Lower Extremity Edema, Orthopnea, Claudication Gastrointestinal: DENIES: Abdominal pain, Black stools, Bloody stools, Constipation, Diarrhea, Nausea, Vomiting, Difficulty Swallowing, Anorexia Genitourinary: DENIES: Sexual dysfunction, Urinary frequency, Urinary incontinence, Urgency, Hematuria, Dysuria, Nocturia, Penile Discharge, Testicular Pain, Testicular Swelling Musculoskeletal: DENIES: Joint pain, Muscle aches, Stiffness, Joint Swelling, Back pain, Neck pain Integumentary: DENIES: Abnormal pigmentation, Nail changes, Pruritus, Rash Hematologic/lymphatic: DENIES: Bruising, Lymphadenopathy Immunologic/allergic: DENIES: Eczema, Urticaria Neurologic: DENIES: Abnormal gait, Headache, Localized weakness, Paresthesias, Seizures, Speech Problems, Tremor, Poor Balance Psychiatric: COMPLAINS OF: Anxiety, DENIES: Confusion, Mood changes, Depression , Hallucinations, Agitation, Suicidal Ideation, Homicidal Ideation, Delusions Except as stated in HPI: all other systems reviewed are Neg Past Family Social History Allergies: Coded Allergies: erythromycin base (Verified Allergy, Severe, Nausea/Vomiting, 10/03/17) raspberry (Unverified Allergy, Mild, 10/03/17) Past Medical History Asthma Past Surgical History No surgical history per records. Reported Medications Reported Meds & Active Scripts Active Methocarbamol 500 Mg Tab 500 Mg PO QID Naproxen 500 Mg Tab 500 Mg PO BID Flovent Hfa (Fluticasone Propionate) 44 Mcg Aero 2 Puff INH BID Kelsie-D 24 Hour Allergy (Fexofenadine-Pseudoephedrine) 24 Hour Tab 24 Hour OR DAILY Augmentin (Amoxicillin/Clavulanate Potassium) 875 Mg Tab 875 Mg PO BID Reported Proventil Mdi (Albuterol Sulfate) 17 Gm Aero Active Ordered Medications Current Medications Medications (Trade) Dose Ordered Sig/Willem Route Start Time Stop Time Status Last Admin Sodium Chloride 1,000 ml @ 124 mls/hr Q8H4M IV 10/03/17 21:06 10/04/17 05:10 (NS Flush) 2 ml UNSCH PRN IV FLUSH 10/03/17 21:15 (NS Flush) 2 ml BID IV FLUSH 10/04/17 09:00 10/04/17 08:12 (Tylenol) 650 mg Q6H PRN PO 10/03/17 21:15 10/04/17 11:44 (Morphine Inj) 2 mg Q2H PRN IV PUSH 10/03/17 21:15 10/04/17 12:54 (Pepcid Inj) 10 mg Q12HR IV PUSH 10/04/17 09:00 10/04/17 08:09 (Ativan Inj) 1 mg Q1H PRN IV PUSH 10/03/17 21:15 10/04/17 12:14 (Zofran Inj) 4 mg Q6H PRN IV PUSH 10/03/17 21:15 (Restoril) 15 mg HS PRN PO 10/03/17 21:15 (Duoneb Neb) 1 ampule Q6HR NEB INH 10/03/17 22:00 10/03/17 21:46 (Duoneb Neb) 1 ampule Q2HR NEB PRN INH 10/03/17 21:15 Miscellaneous Information 1 Q361D XX 10/03/17 21:15 (Chlorhexidine 2% Cloth) 3 pack Taper DAILY@04 TOP 10/04/17 04:00 09/30/18 03:59 10/04/17 04:00 (Chlorhexidine 2% Cloth) 3 pack UNSCH PRN TOP 10/03/17 21:15 (Renita-Colace) 1 tab BID PO 10/04/17 09:00 10/04/17 08:10 (Milk Of Magnesia Liq) 30 ml Q12H PRN PO 10/03/17 21:15 (Senokot) 17.2 mg Q12H PRN PO 10/03/17 21:15 (Dulcolax Supp) 10 mg DAILY PRN RECTAL 10/03/17 21:15 (Lactulose Liq) 30 ml DAILY PRN PO 10/03/17 21:15 Pharmacy Profile Note 0 ml @ 0 mls/hr UNSCH OTHER 10/03/17 21:15 Piperacillin Sod/ Tazobactam Sod 100 ml @ 200 mls/hr Q6H IV 10/04/17 02:00 10/04/17 08:12 Azithromycin 500 mg/Sodium Chloride 250 ml @ 250 mls/hr Q24H IV 10/03/17 22:00 10/03/17 23:08 Potassium Chloride 100 ml @ 50 mls/hr Q2H PRN IV 10/04/17 01:00 Potassium Chloride 100 ml @ 50 mls/hr Q2H PRN IV 10/04/17 01:00 (K-Lyte Cl Eff) 50 meq UNSCH PRN PO 10/04/17 01:00 Potassium Chloride 100 ml @ 25 mls/hr UNSCH PRN IV 10/04/17 01:00 Potassium Chloride 100 ml @ 50 mls/hr Q2H PRN IV 10/04/17 01:00 Magnesium Sulfate 4 gm/Sodium Chloride 100 ml @ 50 mls/hr UNSCH PRN IV 10/04/17 01:00 (Mag-Ox) 800 mg UNSCH PRN PO 10/04/17 01:00 Magnesium Sulfate 2 gm/Sodium Chloride 100 ml @ 50 mls/hr UNSCH PRN IV 10/04/17 01:00 (K-Phos) 2,000 mg Q4H PRN PO 10/04/17 01:00 Sodium Phosphate 30 mmol/Sodium Chloride 250 ml @ 42 mls/hr UNSCH PRN IV 10/04/17 01:00 (K-Phos) 2,000 mg UNSCH PRN PO/TUBE 10/04/17 01:00 Potassium Phosphate 30 mmol/ Sodium Chloride 260 ml @ 42 mls/hr UNSCH PRN IV 10/04/17 01:00 (Flovent Hfa 44 Mcg Inh) 2 puff BID INH 10/04/17 09:00 (Robaxin) 500 mg QID PO 10/04/17 09:00 10/04/17 10:18 Acetaminophen 100 ml @ 400 mls/hr Q6H PRN IV 10/04/17 12:00 Family History could not be obtained. Social History IVDA heroin, cocaine and meth. Physical Exam Vital Signs Vital Signs Date Time Temp Pulse Resp B/P (MAP) Pulse Ox O2 Delivery O2 Flow Rate FiO2 10/04/17 12:59 26 10/04/17 11:13 103.0 134 28 103/59 97 10/04/17 11:00 103.0 134 34 103/59 (74) 97 10/04/17 10:00 143 32 98/79 (85) 100 10/04/17 10:00 143 10/04/17 09:00 129 30 125/63 (83) 100 10/04/17 08:43 101.0 127 28 111/58 99 10/04/17 08:00 128 10/04/17 08:00 101.0 129 32 111/69 (83) 98 10/04/17 07:42 100 Nasal Cannula 2.00 10/04/17 07:00 122 30 111/58 (75) 99 10/04/17 06:00 120 10/04/17 06:00 101.1 120 25 122/58 (79) 100 10/04/17 05:00 128 35 114/56 (75) 91 10/04/17 04:00 134 10/04/17 04:00 99.2 134 48 122/58 (79) 92 10/04/17 03:00 100.2 130 25 120/55 (76) 93 10/04/17 02:39 19 10/04/17 02:00 128 26 122/55 (77) 96 10/04/17 02:00 128 10/04/17 01:00 101.2 133 45 119/61 (80) 88 10/04/17 00:00 122 10/04/17 00:00 122 20 114/59 (77) 97 10/03/17 23:00 98.8 124 24 124/57 (79) 95 10/03/17 22:28 10/03/17 22:18 98.8 123 26 121/59 (79) 95 Nasal Cannula 4.00 10/03/17 21:50 96 Nasal Cannula 2.00 10/03/17 19:33 130 28 120/56 (77) 93 Nasal Cannula 4.00 10/03/17 17:58 142 24 115/57 (76) 94 Room Air 10/03/17 17:55 145 22 93 Room Air 10/03/17 16:46 101.0 155 18 120/62 (81) 98 Physical Exam GENERAL: This is a well-nourished, well-developed patient, in no apparent distress. SKIN: No rashes, ecchymoses or lesions. Cool and dry. Multiple tattoos. HEAD: Atraumatic. Normocephalic. No temporal or scalp tenderness. EYES: Pupils equal round and reactive. Extraocular motions intact. ENT: Nose without bleeding, purulent drainage or septal hematoma. Throat without erythema, tonsillar hypertrophy or exudate. Uvula midline. Airway patent. NECK: Trachea midline. Supple, nontender, no meningeal signs. CARDIOVASCULAR: ? systolic murmur. RESPIRATORY: Clear to auscultation. Decreased air entry bilaterally bases. GASTROINTESTINAL: Abdomen soft, non-tender, nondistended. MUSCULOSKELETAL: Extremities without clubbing, cyanosis, or edema. No joint tenderness, effusion, or edema noted. No calf tenderness. Negative Homans sign bilaterally. NEUROLOGICAL: Awake and alert. No obvious focal deficit. Psych cooperative IV line sites with no e.o infection. Laboratory Laboratory Tests Test 10/03/17 17:30 10/03/17 17:45 10/03/17 18:00 10/03/17 19:00 Blood Urea Nitrogen 55 Creatinine 2.21 Random Glucose 109 Total Protein 7.6 Albumin 2.0 Calcium Level 7.8 Alkaline Phosphatase 109 Aspartate Amino Transf (AST/SGOT) 25 Alanine Aminotransferase (ALT/SGPT) 23 Total Bilirubin 2.0 Sodium Level 128 Potassium Level 3.2 Chloride Level 94 Carbon Dioxide Level 21.1 Anion Gap 13 Estimat Glomerular Filtration Rate 36 Lactic Acid Level 2.9 Troponin I LESS THAN 0.02 Urine Color DARK-YELLOW Urine Turbidity HAZY Urine pH 5.5 Urine Specific [place] 1.018 Urine Protein 100 Urine Glucose (UA) NEG Urine Ketones NEG Urine Occult Blood SMALL Urine Nitrite NEG Urine Bilirubin SMALL Urine Urobilinogen 4.0 Urine Leukocyte Esterase SMALL Urine RBC 3 Urine WBC 12 Urine Bacteria RARE Urine Hyaline Casts 7 Urine Granular Casts 8 Microscopic Urinalysis Comment CULTURE INDICATED White Blood Count 14.8 Red Blood Count 2.99 Hemoglobin 8.8 Hematocrit 25.0 Mean Corpuscular Volume 83.6 Mean Corpuscular Hemoglobin 29.3 Mean Corpuscular Hemoglobin Concent 35.1 Red Cell Distribution Width 19.0 Platelet Count 120 Mean Platelet Volume 9.5 Neutrophils (%) (Auto) 87.0 Lymphocytes (%) (Auto) 5.2 Monocytes (%) (Auto) 7.4 Eosinophils (%) (Auto) 0.2 Basophils (%) (Auto) 0.2 Neutrophils # (Auto) 12.9 Lymphocytes # (Auto) 0.8 Monocytes # (Auto) 1.1 Eosinophils # (Auto) 0.0 Basophils # (Auto) 0.0 CBC Comment AUTO DIFF Differential Total Cells Counted 100 Neutrophils % (Manual) 84 Band Neutrophils % 11 Lymphocytes % 2 Monocytes % 3 Neutrophils # (Manual) 14.1 Differential Comment FINAL DIFF MANUAL Toxic Granulation 1+ Toxic Vacuolation PRESENT Dohle Bodies PRESENT Platelet Estimate LOW Platelet Morphology Comment ENLARGED Erythrocyte Sedimentation Rate 72 Blood Gas Puncture Site LT RADIAL Blood Gas Patient Temperature 98.6 Venous Blood pH 7.47 Venous Blood Partial Pressure CO2 28 Venous Blood Partial Pressure O2 47 Venous Blood HCO3 20 Venous Blood Oxygen Saturation 79 Venous Blood Oxygen Content 7.8 Venous Blood Base Excess -2.9 Oxygen Delivery Device NASAL CANNULA Blood Gas Liter Flow 2 Blood Gas Inspired Oxygen 28 Test 10/03/17 21:30 10/03/17 23:20 10/04/17 03:31 10/04/17 05:50 Lactic Acid Level 2.2 1.3 Nasal Screen MRSA (PCR) MRSA DETECTED White Blood Count 8.9 Red Blood Count 2.19 Hemoglobin 6.6 Hematocrit 18.4 Mean Corpuscular Volume 84.0 Mean Corpuscular Hemoglobin 30.2 Mean Corpuscular Hemoglobin Concent 36.0 Red Cell Distribution Width 18.8 Platelet Count 93 Mean Platelet Volume 8.7 CBC Comment AUTO DIFF Differential Total Cells Counted 100 Neutrophils % (Manual) 80 Band Neutrophils % 10 Lymphocytes % 1 Monocytes % 8 Eosinophils % 1 Neutrophils # (Manual) 8.0 Differential Comment FINAL DIFF MANUAL Platelet Estimate LOW Platelet Morphology Comment NORMAL Prothrombin Time 14.4 Prothromb Time International Ratio 1.4 Activated Partial Thromboplast Time 35.5 Blood Urea Nitrogen 31 Creatinine 1.21 Random Glucose 91 Total Protein 5.8 Albumin 1.4 Calcium Level 6.4 Phosphorus Level 3.4 Magnesium Level 2.2 Alkaline Phosphatase 72 Aspartate Amino Transf (AST/SGOT) 22 Alanine Aminotransferase (ALT/SGPT) 16 Total Bilirubin 1.2 Sodium Level 138 Potassium Level 3.1 Chloride Level 108 Carbon Dioxide Level 22.2 Anion Gap 8 Estimat Glomerular Filtration Rate 72 Protein Corrected Calcium 7.0 Troponin I LESS THAN 0.02 Date/Time Source Procedure Growth Status 10/04/17 03:31 Blood Peripheral Aerobic Blood Culture Pending Received 10/04/17 03:31 Blood Peripheral Anaerobic Blood Culture Pending Received 10/04/17 03:49 Sputum Expectorated Sputum Gram Stain Pending Received 10/04/17 03:49 Sputum Expectorated Sputum Sputum Culture Pending Received 10/03/17 21:30 Urine Random Urine Legionella Antigen - Final PRESUMPTIVE NEGATIVE FOR LEGIONELLA P... Complete 10/03/17 21:30 Urine Random Urine Streptococcus pneumoniae Antigen (M - Final PRESUMPTIVE NEGATIVE FOR STREPTOCOCCU... Complete Result Diagram: 10/04/1733010/04/17330 Imaging Last Impressions Chest X-Ray 10/03/17 0000 Signed Impressions: Service Date/Time: Tuesday, October 03, 2017 18:55 - CONCLUSION: Bilateral patchy pulmonary infiltrates involving the mid to lower lung field bilaterally suggestive of bilateral pneumonia. Victorino Vang MD Assessment and Plan Assessment and Plan Severe Sepsis present on admission High Probability of endocarditis. Pneumonia: septic emboli, aspiration pneumonia. TV vegetation IVDA: heroin, cocaine and methamphetamine. Recs: Continue Azithro IV Continue Vanco IV(target 15-20) Continue Zosyn IV Blood cultures x 2 CARMEN planned for [address] chest , A/P Follow cultures Follow clinically d/w , . D.w patients mom briefly findings so far. Lakia Macias MD Oct 04, 2017 14:22
--- NOTE | 2017-10-04 14:38 | PD.PROCEDR ---
Procedure Note Procedure After the risks and benefits were discussed the following procedure was performed: INTUBATION: The patient was put in optimal position for the procedure. Rapid sequence intubation was initiated by me using 20 milligrams of etomidate IV and [5 milligrams of Versed IV, 50 mg IV Rocuronium. DL with Mac 4 Blade Grade 1 view. The patient was intubated with a 8.0 cuffed endotracheal tube. Tube placement was confirmed by visualization of the tube and balloon passing through the cords, capnometry and subsequent chest x-ray. Breath sounds were equal and well aerated bilaterally postintubation. No breath sounds over stomach. Patient tolerated procedure well. Jaki Barraza MD Oct 04, 2017 14:38
[2017-10-04] MEDS ORDERED: PROPOFOL 500 MG/50 ML INJ 50 ML ONE (14:50)
[2017-10-04] MEDS: VANCOMYCIN INJ 1,750 MG in SODIUM CHLORID 0.9% 500 ML INJ 500 ML IV SCH (15:33)
--- NOTE | 2017-10-04 17:13 | RADRPT ---
EXAM DATE/TIME: 10/04/2017 16:11 [facility] COMPARISON: CHEST SINGLE AP, October 03, 2017, 18:55. INDICATIONS : Post intubation. MEDICAL HISTORY : None. SURGICAL HISTORY : None. ENCOUNTER: Initial ACUITY: 1 day PAIN SCORE: Non-responsive. LOCATION: Bilateral chest FINDINGS: Interval intubation with ET tube tip 4 cm above the sydni. Increasing patchy and partially consolid ated airspace infiltrates in the mid and lower lungs, now with loss of delineation of both hemidiaphr agms. The heart is upper limits normal in size. No evidence of pneumothorax. CONCLUSION: 1. ET tube in good position. 2. Significant increase in bilateral airspace opacities, now with consolidation in the lower lungs bi laterally. Mat Alejandra MD on October 04, 2017 at 17:10 Board Certified Radiologist. This report was verified electronically.
[2017-10-04 18:36] LABS: BASOPHIL % 0.3 % (0.0-2.0); EOSINOPHIL # 0.1 TH/MM3 (0-0.4); EOSINOPHIL % 0.6 % (0.0-4.0); HEMATOCRIT 22.4 % (39.0-51.0); HEMOGLOBIN 7.8 GM/DL (13.0-17.0); LYMPH % 8.6 % (9.0-44.0); MEAN CORPUSCULAR HEMOGLOBIN 29.3 PG (27.0-34.0); MEAN CORPUSCULAR HGB CONC 34.9 % (32.0-36.0); MEAN PLATELET VOLUME 8.4 FL (7.0-11.0); MONO % 11.9 % (0.0-8.0); MONOCYTE # 1.4 TH/MM3 (0-0.9); NEUT % 78.6 % (16.0-70.0); PLATELET COUNT 97 TH/MM3 (150-450); RED BLOOD COUNT 2.67 MIL/MM3 (4.50-5.90); WHITE BLOOD COUNT 11.5 TH/MM3 (4.0-11.0)
[2017-10-04 19:38] LABS: BANDS 7 % (0-6); CORRECTED NUCLEATED RBC 2 /100 WBC (0-0); LYMPHOCYTES 4 % (9-44); METAMYELOCYTES 2 % (0-1); MONOCYTES 3 % (0-8); NEUTROPHIL # MANUAL DIFF 10.7 TH/MM3 (1.8-7.7); NUCLEATED RED BLOOD CELL 2 (0-0); POLYS (SEG NEUTROPHILS) 84 % (16-70)
[2017-10-04 19:40] LABS: DOHLE BODIES PRESENT (NONE SEEN); TOXIC GRANULATION 1+ (NORMAL); TOXIC VACUOLATION PRESENT (NONE SEEN)
[2017-10-04] MEDS: CHLORHEXIDINE 0.12% (ORAL KIT) 15 ML CUP MT SCH (20:02)
[2017-10-04] MEDS: PROPOFOL 1000 MG/100 ML INJ 100 ML IV PRN ×2 (20:08→22:10)
[2017-10-04] MEDS ORDERED: IOHEXOL 350 MG/ML 10 ML VIAL (for RAD DIAG) IVCONTRAST ONE (21:33)
--- NOTE | 2017-10-04 21:41 | RADRPT ---
EXAM DATE/TIME: 10/04/2017 21:18 [facility] COMPARISON: CHEST SINGLE AP, October 04, 2017, 16:11. INDICATIONS : Hypoxia; septic. IV CONTRAST: 100 cc Omnipaque 350 (iohexol) IV ; Cumulative dose for multiple exams. RADIATION DOSE: 7.62 CTDIvol (mGy) ; Combined studies - Thorax/Abdomen/Pelvis MEDICAL HISTORY : None SURGICAL HISTORY : None. ENCOUNTER: Initial ACUITY: 1 day PAIN SCALE: Non-responsive LOCATION: Bilateral chest TECHNIQUE: Volumetric scanning of the chest was performed. Using automated exposure control and adjustment of t he mA and/or kV according to patient size, radiation dose was kept as low as reasonably achievable to obtain optimal diagnostic quality images. DICOM format image data is available electronically for review and comparison. Follow-up recommendations for detected pulmonary nodules are based at a minimum on nodule size and pa tient risk factors according to Fleischner Society Guidelines. FINDINGS: LUNGS: Abnormal appearance of the lungs with lobar consolidation of both lower lobes with air bronchograms a nd patchy areas of masslike infiltrate throughout the remainder of the segments of the lungs. These focal areas of masslike infiltrate measuring up to 4.1 cm and contains air bronchograms. One of the lesions is cavitary, best seen on image #27, located in the periphery of the lateral right midlung. All segments of both lungs are involved. PLEURA: Bilateral pleural effusions with mild lobular contour suggesting possible loculated pleural effusions . Effusions measure up to 3.4 cm in thickness on the left and 2.0 cm in thickness on the right. MEDIASTINUM: The heart and great vessels demonstrate no acute abnormality. There is no mediastinal or hilar lymph adenopathy. AXILLAE: Within normal limits. No lymphadenopathy. SKELETAL: Within normal limits for patient age. MISCELLANEOUS: Gastric and endotracheal tubes in place. CONCLUSION: Abnormal diffuse airspace opacities throughout both lungs with bilateral lower lobe consolidation and patchy focal areas of consolidation the remainder of the lungs. There is also bilateral pleural eff usions with probable loculation. Mat Alejandra MD on October 04, 2017 at 21:35 Board Certified Radiologist. This report was verified electronically.
--- NOTE | 2017-10-04 21:45 | RADRPT ---
EXAM DATE/TIME: 10/04/2017 21:21 [facility] COMPARISON: No previous studies available for comparison. INDICATIONS : Hypoxia; septic. IV CONTRAST: 100 cc Omnipaque 350 (iohexol) IV ; Cumulative dose for multiple exams. ORAL CONTRAST: No oral contrast ingested. RADIATION DOSE: 7.62 CTDIvol (mGy) ; Combined studies - Thorax/Abdomen/Pelvis MEDICAL HISTORY : None SURGICAL HISTORY : None. ENCOUNTER: Initial ACUITY: 1 day PAIN SCALE: Non-responsive LOCATION: Bilateral abdomen TECHNIQUE: Volumetric scanning of the abdomen and pelvis was performed. Using automated exposure control and ad justment of the mA and/or kV according to patient size, radiation dose was kept as low as reasonably achievable to obtain optimal diagnostic quality images. DICOM format image data is available electro nically for review and comparison. FINDINGS: LOWER LUNGS: Abnormal appearance the lungs; please see report of concurrently performed CT thorax. LIVER: Hepatomegaly with superior inferior dimension 24 cm. No focal lesions seen. No biliary duct dilatat ion. No calcified gallstones. SPLEEN: A large spleen with superior/inferior extent measuring 25 cm. No focal lesions. PANCREAS: Within normal limits. KIDNEYS: Normal in size and shape. There is no mass, stone or hydronephrosis. ADRENAL GLANDS: Within normal limits. VASCULAR: There is no aortic aneurysm. BOWEL/MESENTERY: No dilated loops of small or large bowel. ABDOMINAL WALL: Within normal limits. RETROPERITONEUM: There is no lymphadenopathy. Prominent varicosities in the anterior pararenal space about the pancre as. Mild amount of free fluid in the dependent pelvis measuring up to 1.7 cm.. BLADDER: No wall thickening or mass. REPRODUCTIVE: Within normal limits. INGUINAL: There is no lymphadenopathy or hernia. MUSCULOSKELETAL: Hemangioma of the L3 vertebral body. CONCLUSION: 1. Severe hepatosplenomegaly without focal lesion. 2. Free fluid in the pelvis. 3. Abnormal lower lungs and pleural effusions. 4. Prominent varices about the splenic vein. Mat Alejandra MD on October 04, 2017 at 21:39 Board Certified Radiologist. This report was verified electronically.
[2017-10-04] MEDS: AZITHROMYCIN INJ 500 MG in SODIUM CHLOR 0.9% 250 ML INJ 250 ML IV SCH (22:33)
[2017-10-04] MEDS: fentaNYL DRIP 250 ML IV PRN (22:33)
--- NOTE | 2017-10-04 22:49 | ECHRPT ---
Indication: endocarditis CONCLUSIONS The left ventricular systolic function is moderately reduced with an estimated ejection fraction in the range of 40-45%. Trace mitral valve regurgitation. There is mild tricuspid valve regurgitation. Large mobile vegetation noted on the tricuspid valve, may be into 2 separate vegetations, measures overall 4cm x 1.7cm. In limited views, there may be a mobile density noted on the pulmonic valve. BP: / HR: Rhythm: Sinus MEASUREMENTS (Male / Female) Normal Values Technical Quality:Good DOPPLER TR Peak Velocity 245.0 cm/s Pulmonary Artery Systolic 34.0 mmHg TR Peak Gradient 24.0 mmHg Right Ventricular Systoli 34.0 mmHg Right Atrial Pressure 10.0 mmHg Medications Versed 7mg Complications Proc. Components Patient intubated, medications given for sedation during the procedure FINDINGS LEFT VENTRICLE Normal left ventricular size. The left ventricular systolic function is moderately reduced with an estimated ejection fraction in the range of 40-45%. RIGHT VENTRICLE The right ventricular size is normal. LEFT ATRIUM The left atrial size is normal. RIGHT ATRIUM The right atrial size is normal. ATRIAL APPENDAGES Normal left atrial appendage size with no evidence of thrombus formation. ATRIAL SEPTUM Normal atrial septal thickness. No atrial level shunt is demonstrated by color flow Doppler or agitated saline imaging. AORTA Descending aorta showing no dissection MITRAL VALVE Structurally normal mitral valve. Trace mitral valve regurgitation. No evidence of vegetation AORTIC VALVE Trileaflet aortic valve. No aortic valve stenosis or regurgitation. TRICUSPID VALVE Mild thickening of the tricuspid valve leaflets. There is mild tricuspid valve regurgitation. Large mobile vegetation noted on the tricuspid valve, may be into 2 separate vegetations, measures overall 4cm x 1.7cm VESSELS The pulmonary valve is not well visualized. In limited views, there may be a mobile density noted on the pulmonic valve. Zen Roberts DO (Electronically Signed) Final Date:04 October 2017 22:48
--- NOTE | 2017-10-04 23:53 | EKG ---
Date Performed: 10/03/2017 Time Performed: 17:26:00 PTAGE: 27 years EKG: SINUS TACHYCARDIA WITH SHORT SC INTERVAL, POSSIBLE ATRIAL FLUTTER NONSPECIFIC ST & T-WAVE A BNORMALITY ABNORMAL RHYTHM ECG NO PREVIOUS TRACING DOCTOR: Zen Roberts Interpretating Date/Time 10/04/2017 23:52:23
[2017-10-05] VITALS (19 sets, daily range): BP systolic 96–115; BP diastolic 47–71; PULSE 86–129; RESP 16–20; TEMP 98.6–102.7; O2SAT 95–100
[2017-10-05] MEDS: PROPOFOL 1000 MG/100 ML INJ 100 ML IV PRN ×6 (02:05→22:37)
[2017-10-05] MEDS: PIPERACIL-TAZO 4.5 GM PREMIX 100 ML IV SCH ×3 (02:36→14:56)
[2017-10-05] MEDS: ACETAMINOPHEN 1000 MG/100 ML 100 ML IV PRN (03:09)
[2017-10-05] MEDS: CHLORHEXIDINE GLUCONATE 2 % 1 PACK (2 CLOTHS) TOP SCH (04:00)
[2017-10-05] MEDS: RESP: ALBUTEROL 2.5 MG/IPRATROPIUM 0.5 MG NEB (SCH) INH ×4 (04:19→20:24)
[2017-10-05] MEDS: VANCOMYCIN INJ 1,750 MG in SODIUM CHLORID 0.9% 500 ML INJ 500 ML IV SCH ×2 (05:15→16:00)
[2017-10-05] MEDS: SODIUM CHLOR 0.9% 1000 ML INJ 1,000 ML IV SCH ×3 (05:16→21:10)
--- NOTE | 2017-10-05 05:58 | MB ---
cc: ZEN ROBERTS DO DATE OF CONSULTATION: October 04, 2017 REASON FOR CONSULTATION Endocarditis. HISTORY OF PRESENT ILLNESS Mendoza New is a 27-year-old male who presented to [facility] on October 03, 2017 due to body aches, diarrhea and subjective fevers. The patient states that his fever started about 24 hours ago. He has a cough with clear sputum. Denies chest pain or shortness of breath. Overall he does have some generalized weakness. He admits to using heroin the last time around two months ago. On arrival he was treated for sepsis and had an echocardiogram this morning which showed a large vegetation on the tricuspid valve. This was evaluated by the CT surgeon, Dr. Charles, who asked that a CARMEN be done to further characterize the vegetation. I was asked to see the patient for consideration of CARMEN. PAST MEDICAL HISTORY 1. Asthma 2. IV drug abuse. PAST SURGICAL HISTORY Denies. ALLERGIES 1. Erythromycin 2. Rasberries. MEDICATIONS 1. Kelsie-D daily. 1. Augmentin 875 milligrams b.i.d. 2. Albuterol. 3. Methocarbamol 500 milligrams q.i.d. 4. Naproxen 500 milligrams b.i.d. 5. Flovent two puffs b.i.d. FAMILY HISTORY: Denies premature coronary artery disease or sudden cardiac within the family. SOCIAL HISTORY: The patient does smoke about a pack per day, previously used heroin but he states the last time was two months ago. Denies alcohol abuse. REVIEW OF SYSTEMS 14-systems were reviewed as above. Pertinent positives and negatives above otherwise negative. PHYSICAL EXAMINATION Vital signs: Temperature 103, heart rate 134, blood pressure 103/59, respirations 28, pulse ox 97%. In general the patient is a well-nourished, well-developed young male in mild distress. Extraocular muscles intact. Mucous membranes moist. Neck: Supple. No JVD at 45 degrees. No carotid bruits heard bilaterally. Carotid upstroke is brisk in nature. Heart: Tachycardiac, positive first and second heart sounds and due to the tachycardia difficult to determine if any murmurs. Lungs: Decreased breath sounds at bilateral bases. Abdomen: Soft, nontender, nondistended, no organomegaly noted. Extremities: Show no clubbing, cyanosis or edema. Femoral and distal pulses intact bilaterally. Neurologically: No focal deficits. Skin: Warm, dry and intact. Osteopathically, no kyphoscoliosis, lordosis or paraspinal tender points. LABORATORY FINDINGS Hemoglobin 6.6, hematocrit 18.1, platelets 93. Potassium 3.1, BUN 31, creatinine 1.21, lactic acid 2.2, troponin negative. Electrocardiogram: (October 03, 2017 at 17:26) sinus tachycardia with short CO interval. Nonspecific ST-T wave changes. IMPRESSION 1. Large tricuspid valve vegetation. 2. Severe sepsis. 3. Acute hypoxic respiratory failure. 4. Tachycardia secondary to dehydration as well as fever and sepsis. 5. Acute kidney injury. 6. Anemia requiring transfusion. 7. Thrombocytopenia. 8. IV heroin use. 9. Tobacco abuse. RECOMMENDATIONS 1. Mr. New presented with severe sepsis and was found to have a large vegetation due to his IV heroin use. 2. I was asked to consider CARMEN and I have discussed this with both the patient and his mother. They both consent to the procedure. 3. The patient is at the edge of acute respiratory failure and discuss this with Dr. Barraza and we felt that the best option is to intubate him. After intubation CARMEN will be done. 4. I spoke to him about his IV heroin use. 5. I spoke to him for greater than three minutes about his tobacco abuse. 6. CT surgery will evaluate the patient for further considerations. 7. He will be seen by Infectious Disease for their recommendations on antibiotics. 8. Further recommendations will be made based on the hospital course. Thank you for allowing me to see Mendoza New. If there are any questions, please do not hesitate to call. Zen Roberts DO VGP/JENY /10:02 PM /5:23 AM
--- NOTE | 2017-10-05 06:59 | PD.CAR.PN ---
CVT Progress Note Subjective/Hospital Course: Pt examined and chart reviewed. Full consult dictated. Agree with full antibiotic course (4-6 weeks) and repeat ECHO to evaluate the tricuspid valve. Objective: Vital Signs Date Time Temp Pulse Resp B/P (MAP) Pulse Ox O2 Delivery O2 Flow Rate FiO2 10/05/17 06:00 100 10/05/17 05:00 99.0 10/05/17 04:21 100 40 10/05/17 04:00 107 10/05/17 04:00 40 10/05/17 04:00 107 17 103/54 (70) 100 10/05/17 03:00 102.7 118 18 96/51 (66) 100 10/05/17 02:00 121 10/05/17 00:31 99 50 10/05/17 00:00 100.1 129 17 110/53 (72) 99 10/05/17 00:00 50 10/05/17 00:00 129 10/04/17 22:00 124 10/04/17 21:35 100 100 10/04/17 21:04 100 100 10/04/17 20:35 100 50 10/04/17 20:00 113 10/04/17 20:00 50 10/04/17 20:00 100.7 113 24 104/54 (71) 100 10/04/17 18:00 117 10/04/17 16:00 101.5 128 28 102/54 (70) 100 10/04/17 16:00 121 10/04/17 14:00 127 10/04/17 14:00 96 50 10/04/17 12:59 26 10/04/17 12:00 145 36 101/65 (77) 93 10/04/17 12:00 145 10/04/17 11:13 103.0 134 28 103/59 97 10/04/17 11:00 103.0 134 34 103/59 (74) 97 10/04/17 10:00 143 32 98/79 (85) 100 10/04/17 10:00 143 10/04/17 09:00 129 30 125/63 (83) 100 10/04/17 08:43 101.0 127 28 111/58 99 10/04/17 08:00 128 10/04/17 08:00 101.0 129 32 111/69 (83) 98 10/04/17 07:42 100 Nasal Cannula 2.00 10/04/17 07:00 122 30 111/58 (82) 99 Result Diagram: 10/04/17 1740 10/04/17 0331 Adeline Charles MD Oct 05, 2017 06:59
[2017-10-05] MEDS: CHLORHEXIDINE 0.12% (ORAL KIT) 15 ML CUP MT SCH ×2 (08:07→21:09)
[2017-10-05] MEDS: DOCUSATE SODIUM 50 MG/SENNA 8.6 MG TAB PO SCH ×2 (08:08→21:08)
[2017-10-05] MEDS: METHOCARBAMOL 500 MG TAB PO SCH ×4 (08:08→21:08)
[2017-10-05] MEDS: FAMOTIDINE 20 MG/2 ML VIAL IV PUSH SCH ×2 (08:08→21:09)
[2017-10-05] MEDS: SODIUM CHLORIDE 0.9% FLUSH 10 ML FLUSH IV FLUSH SCH ×2 (08:09→21:09)
[2017-10-05] MEDS: FLUTICASONE PROPIONATE 44 MCG/ACT 10.6 GM INHALER INH SCH ×2 (08:09→21:00)
[2017-10-05] MEDS: fentaNYL DRIP 250 ML IV PRN ×2 (09:20→17:39)
--- NOTE | 2017-10-05 10:24 | MB ---
cc: LATISHA PINZON VINCENT G. DO KHANNA, SOHIT K. MD DATE OF CONSULTATION: 10/05/2017 REFERRING PHYSICIAN: Dr. Rui Pinzon REASON FOR CONSULTATION: Tricuspid endocarditis. HISTORY Mr. New is a 27 year-old gentleman with a known history of IV drug use with reported recent use of heroin who presents with 24 hour history of progressive fevers, cough, malaise and diarrhea. The patient was seen in the emergency department and admitted, and has undergone further workup including an echocardiogram which revealed evidence of vegetation in the tricuspid valve. Additional radiographic imaging including CT demonstrates loculated pleural effusion on the right pleural space as well as multifocal areas of what appears to be septic emboli. Based on the echocardiogram, I was consulted for further management and opinion regarding his tricuspid pathology. Because of his worsening respiratory status and the need for a CARMEN he was intubated electively yesterday and CARMEN was performed which confirmed the presence of a 4 cm tricuspid vegetation with mild tricuspid insufficiency and mild left ventricular dysfunction. No additional valvular pathology is identified. At the present time he is intubated, mechanically ventilated and sedated. PAST MEDICAL HISTORY 1. Asthma. 2. IV drug abuse as described above. PAST SURGICAL HISTORY: Unremarkable. ALLERGIES: ERYTHROMYCIN, rash. MEDICATIONS: 1. Kelsie. 2. Augmentin. 3. Albuterol. 4. Methocarbamol. 5. Naprosyn. 6. Flovent. FAMILY HISTORY: No identifiable history of premature coronary artery disease, cardiac history or other valvular pathology. SOCIAL HISTORY: Remarkable for smoking one pack per day as well as IV drug use as noted above. Denies any significant alcohol use. REVIEW OF SYSTEMS: As above. All other primaries are negative. PHYSICAL EXAMINATION: On physical emanation today he is 182 cm tall, weighs 96 kg, blood pressure is 103/54 with a heart rate of 100 which is regular, respiratory rate is 17, he is on 40% FIO2 mechanical ventilation with sats of 100%. GENERAL: Normocephalic, atraumatic. HEENT: Pupils are reactive. Extraocular is intact. No cervical adenopathy, carotid bruits or JVD. Cardiovascular: Sinus tachycardia otherwise regular rate and rhythm. No gallops, rubs or identifiable murmurs. Lungs: Decreased breath sound in both bases with some rales scattered throughout otherwise good air exchange. Abdomen: Soft, nontender, nondistended, normal bowel sounds, no hepatosplenomegaly. Extremities: Bilateral lower extremity pulses are intact without cyanosis, clubbing, edema, no venous varicosities. Neurologically: Intact with no focal deficits although he is chemically sedated on mechanical ventilator. IMPRESSION 1. Large tricuspid valve vegetation with endocarditis. 2. Severe sepsis. 3. Hypoxia, respiratory failure. 4. Renal insufficiency with acute kidney disease. 5. Thrombocytopenia. 6. Progressive anemia. 7. IV drug abuse. PLAN: Clinical, echo, and CARMEN findings were reviewed and discussed with Dr. Madi tadeo. At this time given his significant medical issues and severe sepsis as well as in the setting of relatively minimal tricuspid insufficiency, my recommendation would be to continue with antibiotic therapy. Ideally he would need 4-6 weeks of antibiotic therapy with repeat echocardiogram at that time. Should there be continued evidence of tricuspid endocarditis at that time, and he continues to abstain from any further drug use, a more invasive strategy including surgical repair of the tricuspid valve could be undertaken. At his current clinical status, surgical intervention would carry a prohibitive risk and be of little benefit given his respiratory failure, renal failure, as well as lack of tricuspid insufficiency. Additionally he already has what appears to be septic emboli to his lungs and there is a likelihood that he could embolize this vegetation further, however, I am not sure in his current setting surgical therapy would be of much benefit to him. Will continue to follow him with you. Thank you for allowing me to participate in the care of this patient. Adeline MCKEON /9:46 AM /10:04 AM LEONCIO
--- NOTE | 2017-10-05 10:43 | HHI.CCPN ---
Subjective Remarks/Hospital Course 27-year-old male with remote history of IV drug abuse, states he last used heroin 2 months ago, presents for evaluation of 8 days of body aches, 7 days of diarrhea with development of subjective fever yesterday. Patient denies any nausea or vomiting. He denies any chest pain. States that he is short of breath and feels anxious. This has developed within the last 24 hours. Patient does have a cough with clear sputum. Denies any prior history of endocarditis. Denies any abdominal pain. Does report some left back pain, worse while lying flat. He is well reports generalized weakness. 10/04/17: He is critically ill, remains febrile up to 103, tachycardic diaphoretic. large tricuspid valve vegetation on bedside echo, formal echo pending. Infectious disease consulted, CT surgery consult ordered. D/W Dr. Macias and Dr. Charles. CARMEN/molecular biologist consult ordered. Hb 6.6 getting 2U PRBC 10/05: Remains critically ill intubated sedated. TE on yesterday TEF 40-45%. Large mobile vegetation noted on the tricuspid valve, may be 2 separate vegetations, measures overall 4cm x 1.7cm. Probable mobile density noted on the pulmonic valve. CT of the chest shows extensive septic emboli and consolidation , with loculated appearing effusion on the left base. Dr. Charles CT surgery recommends 4-6 weeks of IV antibiotics followed by repeat echo, considering surgery at that time if no improvement Objective Vital Signs Date Time Temp Pulse Resp B/P (MAP) Pulse Ox O2 Delivery O2 Flow Rate FiO2 10/05/17 09:07 100 40 10/05/17 06:00 100 10/05/17 05:00 99.0 10/05/17 04:00 17 103/54 (70) 10/04/17 07:42 Nasal Cannula 2.00 Intake and Output 10/05/17 10/05/17 10/06/17 08:00 16:00 00:00 Intake Total 100 ml Output Total 500 ml Balance -400 ml Result Diagram: 10/04/17 9944 10/04/17 6583 Other Results Microbiology Date/Time Source Procedure Growth Status 10/03/17 17:40 Nasal Aspirate Influenza Types A,B Antigen (GIOVANA) - Final NEGATIVE FOR FLU A AND B ANTIGEN.... Complete 10/03/17 21:30 Urine Random Urine Legionella Antigen - Final PRESUMPTIVE NEGATIVE FOR LEGIONELLA P... Complete 10/03/17 21:30 Urine Random Urine Streptococcus pneumoniae Antigen (M - Final PRESUMPTIVE NEGATIVE FOR STREPTOCOCCU... Complete 10/03/17 21:30 Urine Random Urine Urine Culture - Final NO GROWTH IN 48 HOURS. Complete 10/03/17 17:45 Urine Clean Catch Urine Culture - Final 10-50,000 CFU/ML MIXED GRAM POSITIVE ... Complete Laboratory Tests Test 10/04/17 16:37 Blood Gas Puncture Site LT RADIAL Blood Gas Patient Temperature 98.6 Blood Gas HCO3 18 mmol/L (22-26) Blood Gas Base Excess -6.9 mmol/L (-2-2) Blood Gas Oxygen Saturation 92 % (90-100) Arterial Blood pH 7.33 (7.380-7.420) Arterial Blood Partial Pressure CO2 35 mmHg (38-42) Arterial Blood Partial Pressure O2 75 mmHg (61-120) Arterial Blood Oxygen Content 10.6 Vol % (12.0-20.0) Arterial Blood Carboxyhemoglobin 2.0 % (0-4) Arterial Blood Methemoglobin 1.3 % (0-2) Blood Gas Hemoglobin 8.2 G/DL (12.0-16.0) Oxygen Delivery Device VENTILATOR Blood Gas Ventilator Setting AC/VT500/R16/P5 Blood Gas Inspired Oxygen 50 % Objective Remarks GENERAL: Well-nourished, well-developed patient. Critically ill, intubated sedated SKIN: Warm and dry. Extensive tattoos limits skin exam HEAD: Normocephalic. EYES: No scleral icterus. No injection or drainage. ENT: Orotracheally intubated NECK: Supple, trachea midline. No JVD or lymphadenopathy. CARDIOVASCULAR: S1-S2 normal with systolic murmur at the left sternal border. Large TV vegetation on bedside echo RESPIRATORY: Air entry is equal bilaterally, coarse rhonchi and crackles GASTROINTESTINAL: Abdomen soft, non-tender, nondistended. MUSCULOSKELETAL: No cyanosis, or edema. NEURO EXAM: The patient is intubated heavily sedated, Pupils are round, reactive to light. Moves extremities spontaneously when sedation is lightened A/P Assessment and Plan Neuro IVDU: -Watch closely for withdrawal -Propofol Versed and fentanyl for vent synchrony and sedation Resp: Acute hypoxemic respiratory failure Extensive septic emboli, consolidation of the lung with loculated left effusion - Continue ventilator support, no vent weaning until respiratory status improved - CT-guided chest tube placement for left loculated effusion, with lab studies - Discussed with cardiothoracic surgery Dr. Gould, patient may need decortication - Broad-spectrum antibiotics per ID, see below - DuoNeb q6hr and PRN CVS: Large tricuspid valve vegetation, pulmonic regurgitation Severe sepsis - Bedside echo shows mild tricuspid regurgitation - Cardiology and CT surgery consult - CARMEN 10/04: EF 40-45%. Large mobile vegetation on tricuspid valve, may be 2 separate vegetations, measures overall 4cm x 1.7cm. - Probable mobile density noted on the pulmonic valve. - See ID section for ABX GI: Diarrhea Hepatosplenomegaly - NPO, IV famotidine - Start tube feeds with Jevity today - Check C Diff - Hepatitis panel pending : Acute kidney injury - Severe dehydration - Aggressive IV fluids resuscitation - Strict I's and O's - Monitor trend of creatinine - Electrolytes replacement per ICU protocol ID: Tricuspid and pulmonic valve endocarditis Septic emboli to the lung Severe sepsis GPC bacteremia - Discussed with Dr. Gould CT surgery today - He recommends 4-6 weeks of IV antibiotics with repeat echo, consideration for surgery if Vegetation not improved - Continue Zosyn, azithromycin and vancomycin for now per ID Dr. Macias - F/U cultures - F/u HIV, Hepatitis panel Endo: -Electrolyte replacement per protocol Heme: Anemia requiring transfusion Thrombocytopenia - s/p 2 units PRBC - Monitor CBC, Coags - Thrombocytopenia base most likely from sepsis and DIC DVT GI prophylaxis - Teds SCDs - Avoid chemical DVT prophylaxis due to blood loss anemia - Pepcid Critical Care: The total critical care time was 45 minutes. Time to perform other separately billable procedures was not included in the critical care time. Patient remains very critical with multiorgan failure and severe septic shock. He has huge tricuspid valve and probably pulmonic valve vegetations. His prognosis appears guarded Jaki Barraza MD Oct 05, 2017 10:43
--- NOTE | 2017-10-05 11:03 | HHI.IDPN ---
Subjective Subjective Remarks is a 27 y/o CM with remote history of IV drug abuse, states he last used heroin 2 months ago, presents for evaluation of body aches, 7 days of diarrhea with development of subjective fever yesterday. Patient denies any nausea or vomiting. He denies any chest pain. This has developed within the last 24 hours. Patient does have a cough with clear sputum. Denies any prior history of endocarditis. Denies any abdominal pain. Does report some left back pain, worse while lying flat. He is well reports generalized weakness. Patient met criteria for sepsis on admission. Flu antigen negative. CXR with bilateral infiltrates. performed a bedside 2D ECHO and verbally reported a large ~4.5 cm vegetation on TV. CXR suspicious for septic emboli. Blood cultures drawn but it appears patient has received augmentin at some point and cultures may possibly be negative. At the time of my evaluation patient is in the ICU, appears in respiratory distress there is a plan for intubation and CARMEN today. UO ok. No diarrhea, no rash. Not on pressors. ID is consulted for evaluation and Mment of Severe Sepsis and Endocarditis. Overnight events reviewed. Persistent fevers overnight. No rash Diarrhea Cdiff ordered. Remains on vent. Secretions moderate pale yellow. Antibiotics Zosyn IV Vanco IV Azithro IV Lines Line sites with no e.o infection Past Medical History Past Medical History Asthma Past Surgical History No surgical history per records. Allergies: Coded Allergies: erythromycin base (Verified Allergy, Severe, Nausea/Vomiting, 10/03/17) raspberry (Unverified Allergy, Mild, 10/03/17) Objective . Vital Signs Date Time Temp Pulse Resp B/P (MAP) Pulse Ox O2 Delivery O2 Flow Rate FiO2 10/05/17 10:00 100 10/05/17 09:07 100 40 10/05/17 08:00 100.3 97 16 115/71 (86) 95 10/05/17 08:00 97 10/05/17 08:00 40 10/05/17 06:00 100 10/05/17 05:00 99.0 10/05/17 04:21 100 40 10/05/17 04:00 107 10/05/17 04:00 40 10/05/17 04:00 107 17 103/54 (70) 100 10/05/17 03:00 102.7 118 18 96/51 (66) 100 10/05/17 02:00 121 10/05/17 00:31 99 50 10/05/17 00:00 100.1 129 17 110/53 (72) 99 10/05/17 00:00 50 10/05/17 00:00 129 10/04/17 22:00 124 10/04/17 21:35 100 100 10/04/17 21:04 100 100 10/04/17 20:35 100 50 10/04/17 20:00 113 10/04/17 20:00 50 10/04/17 20:00 100.7 113 24 104/54 (71) 100 10/04/17 18:00 117 10/04/17 16:00 101.5 128 28 102/54 (70) 100 10/04/17 16:00 121 10/04/17 14:00 127 10/04/17 14:00 96 50 10/04/17 12:59 26 10/04/17 12:00 145 36 101/65 (77) 93 10/04/17 12:00 145 10/04/17 11:13 103.0 134 28 103/59 97 . Laboratory Tests Test 10/03/17 18:00 10/04/17 03:31 10/04/17 17:40 White Blood Count 14.8 TH/MM3 8.9 TH/MM3 11.5 TH/MM3 Red Blood Count 2.99 MIL/MM3 2.19 MIL/MM3 2.67 MIL/MM3 Hemoglobin 8.8 GM/DL 6.6 GM/DL 7.8 GM/DL Hematocrit 25.0 % 18.4 % 22.4 % Mean Corpuscular Volume 83.6 FL 84.0 FL 84.0 FL Mean Corpuscular Hemoglobin 29.3 PG 30.2 PG 29.3 PG Mean Corpuscular Hemoglobin Concent 35.1 % 36.0 % 34.9 % Red Cell Distribution Width 19.0 % 18.8 % 21.0 % Platelet Count 120 TH/MM3 93 TH/MM3 97 TH/MM3 Mean Platelet Volume 9.5 FL 8.7 FL 8.4 FL Neutrophils (%) (Auto) 87.0 % 78.6 % Lymphocytes (%) (Auto) 5.2 % 8.6 % Monocytes (%) (Auto) 7.4 % 11.9 % Eosinophils (%) (Auto) 0.2 % 0.6 % Basophils (%) (Auto) 0.2 % 0.3 % Neutrophils # (Auto) 12.9 TH/MM3 9.0 TH/MM3 Lymphocytes # (Auto) 0.8 TH/MM3 1.0 TH/MM3 Monocytes # (Auto) 1.1 TH/MM3 1.4 TH/MM3 Eosinophils # (Auto) 0.0 TH/MM3 0.1 TH/MM3 Basophils # (Auto) 0.0 TH/MM3 0.0 TH/MM3 CBC Comment AUTO DIFF AUTO DIFF AUTO DIFF Differential Total Cells Counted 100 100 100 Neutrophils % (Manual) 84 % 80 % 84 % Band Neutrophils % 11 % 10 % 7 % Lymphocytes % 2 % 1 % 4 % Monocytes % 3 % 8 % 3 % Neutrophils # (Manual) 14.1 TH/MM3 8.0 TH/MM3 10.7 TH/MM3 Differential Comment FINAL DIFF MANUAL FINAL DIFF MANUAL FINAL DIFF MANUAL Toxic Granulation 1+ 1+ Toxic Vacuolation PRESENT PRESENT Dohle Bodies PRESENT PRESENT Platelet Estimate LOW LOW LOW Platelet Morphology Comment ENLARGED NORMAL ENLARGED Erythrocyte Sedimentation Rate 72 mm/hr Eosinophils % 1 % Metamyelocytes 2 % Nucleated Red Blood Cells 2 /100 WBC Laboratory Tests Test 10/03/17 17:30 10/03/17 21:30 10/04/17 03:31 Blood Urea Nitrogen 55 MG/DL 31 MG/DL Creatinine 2.21 MG/DL 1.21 MG/DL Random Glucose 109 MG/DL 91 MG/DL Total Protein 7.6 GM/DL 5.8 GM/DL Albumin 2.0 GM/DL 1.4 GM/DL Calcium Level 7.8 MG/DL 6.4 MG/DL Alkaline Phosphatase 109 U/L 72 U/L Aspartate Amino Transf (AST/SGOT) 25 U/L 22 U/L Alanine Aminotransferase (ALT/SGPT) 23 U/L 16 U/L Total Bilirubin 2.0 MG/DL 1.2 MG/DL Sodium Level 128 MEQ/L 138 MEQ/L Potassium Level 3.2 MEQ/L 3.1 MEQ/L Chloride Level 94 MEQ/L 108 MEQ/L Carbon Dioxide Level 21.1 MEQ/L 22.2 MEQ/L Anion Gap 13 MEQ/L 8 MEQ/L Estimat Glomerular Filtration Rate 36 ML/MIN 72 ML/MIN Lactic Acid Level 2.9 mmol/L 2.2 mmol/L 1.3 mmol/L Troponin I LESS THAN 0.02 NG/ML LESS THAN 0.02 NG/ML Phosphorus Level 3.4 MG/DL Magnesium Level 2.2 MG/DL Protein Corrected Calcium 7.0 MG/DL Microbiology Date/Time Source Procedure Growth Status 10/04/17 17:45 Blood Peripheral Aerobic Blood Culture Pending Received 10/04/17 17:45 Blood Peripheral Anaerobic Blood Culture Pending Received 10/04/17 17:40 Blood Peripheral Aerobic Blood Culture Pending Received 10/04/17 17:40 Blood Peripheral Anaerobic Blood Culture Pending Received 10/04/17 03:31 Blood Peripheral Aerobic Blood Culture - Preliminary Gram Positive Cocci Resulted 10/04/17 03:31 Blood Peripheral Anaerobic Blood Culture Pending Resulted 10/04/17 03:49 Sputum Expectorated Sputum Gram Stain - Final Resulted 10/04/17 03:49 Sputum Expectorated Sputum Sputum Culture Pending Resulted 10/03/17 17:40 Nasal Aspirate Influenza Types A,B Antigen (GIOVANA) - Final NEGATIVE FOR FLU A AND B ANTIGEN.... Complete 10/03/17 21:30 Urine Random Urine Legionella Antigen - Final PRESUMPTIVE NEGATIVE FOR LEGIONELLA P... Complete 10/03/17 21:30 Urine Random Urine Streptococcus pneumoniae Antigen (M - Final PRESUMPTIVE NEGATIVE FOR STREPTOCOCCU... Complete 10/03/17 21:30 Urine Random Urine Urine Culture - Final NO GROWTH IN 48 HOURS. Complete 10/03/17 17:45 Urine Clean Catch Urine Culture - Final 10-50,000 CFU/ML MIXED GRAM POSITIVE ... Complete Imaging Last Impressions Chest X-Ray 10/04/17 0000 Signed Impressions: Service Date/Time: Wednesday, October 04, 2017 16:11 - CONCLUSION: 1. ET tube in good position. 2. Significant increase in bilateral airspace opacities, now with consolidation in the lower lungs bilaterally. Mat Alejandra MD Chest CT 10/04/17 0000 Signed Impressions: Service Date/Time: Wednesday, October 04, 2017 21:18 - CONCLUSION: Abnormal diffuse airspace opacities throughout both lungs with bilateral lower lobe consolidation and patchy focal areas of consolidation the remainder of the lungs. There is also bilateral pleural effusions with probable loculation. Mat Alejandra MD Abdomen/Pelvis CT 10/04/17 0000 Signed Impressions: Service Date/Time: Wednesday, October 04, 2017 21:21 - CONCLUSION: 1. Severe hepatosplenomegaly without focal lesion. 2. Free fluid in the pelvis. 3. Abnormal lower lungs and pleural effusions. 4. Prominent varices about the splenic vein. Mat Alejandra MD Physical Exam GENERAL: This is a well-nourished, well-developed patient, in no apparent distress. SKIN: No rashes, ecchymoses or lesions. Cool and dry. Multiple tattoos. HEAD: Atraumatic. Normocephalic. No temporal or scalp tenderness. EYES: Pupils equal round and reactive. Extraocular motions intact. ENT: Intubated. NECK: Trachea midline. Supple, nontender, no meningeal signs. CARDIOVASCULAR: ? systolic murmur. RESPIRATORY: Decreased air entry bilaterally bases. GASTROINTESTINAL: Abdomen soft, non-tender, nondistended. MUSCULOSKELETAL: Extremities without clubbing, cyanosis, or edema. NEUROLOGICAL: Sedated, moves extremities. Psych cooperative IV line sites with no e.o infection. Assessment & Plan Remarks Severe Sepsis present on admission Bilateral pleural effusions: left side appears loculated possible empyema. TV and Pulmonic valve endocarditis Pneumonia: septic emboli, aspiration pneumonia. IVDA: heroin, cocaine and methamphetamine. Acute renal failure: Sepsis, meds,contrast. Recs: DC Azithro IV Continue Vanco IV (target 15-20) Continue Oxacillin IV. Await susceptibilities for Staph aureus to target therapy. Once susceptibilities finalized will consider Genta IV if persistent bacteremia. Repeat Blood cultures x 2 on 10/07/2017 after 24 hours of Oxacillin IV. CT guided thoracentesis planned for today. Follow cultures Follow clinically d/w Lakia Colby MD Oct 05, 2017 11:03
[2017-10-05] MEDS: FREE WATER OG-TUBE SCH ×2 (12:00→18:00)
--- NOTE | 2017-10-05 12:17 | PD.CARD.PN ---
Subjective Subjective Remarks Better hemodynamically today No events over night Objective Medications Current Medications Medications (Trade) Dose Ordered Sig/Willem Route Start Time Stop Time Status Last Admin Sodium Chloride 1,000 ml @ 124 mls/hr Q8H4M IV 10/03/17 21:06 10/05/17 10:06 (NS Flush) 2 ml UNSCH PRN IV FLUSH 10/03/17 21:15 (NS Flush) 2 ml BID IV FLUSH 10/04/17 09:00 10/05/17 08:09 (Tylenol) 650 mg Q6H PRN PO 10/03/17 21:15 10/04/17 11:44 (Morphine Inj) 2 mg Q2H PRN IV PUSH 10/03/17 21:15 10/04/17 12:54 (Pepcid Inj) 10 mg Q12HR IV PUSH 10/04/17 09:00 10/05/17 08:08 (Ativan Inj) 1 mg Q1H PRN IV PUSH 10/03/17 21:15 10/04/17 12:14 (Zofran Inj) 4 mg Q6H PRN IV PUSH 10/03/17 21:15 (Restoril) 15 mg HS PRN PO 10/03/17 21:15 (Duoneb Neb) 1 ampule Q6HR NEB INH 10/03/17 22:00 10/05/17 09:07 (Duoneb Neb) 1 ampule Q2HR NEB PRN INH 10/03/17 21:15 Miscellaneous Information 1 Q361D XX 10/03/17 21:15 (Chlorhexidine 2% Cloth) 3 pack Taper DAILY@04 TOP 10/04/17 04:00 09/30/18 03:59 10/05/17 04:00 (Chlorhexidine 2% Cloth) 3 pack UNSCH PRN TOP 10/03/17 21:15 (Renita-Colace) 1 tab BID PO 10/04/17 09:00 10/05/17 08:08 (Milk Of Magnesia Liq) 30 ml Q12H PRN PO 10/03/17 21:15 (Senokot) 17.2 mg Q12H PRN PO 10/03/17 21:15 (Dulcolax Supp) 10 mg DAILY PRN RECTAL 10/03/17 21:15 (Lactulose Liq) 30 ml DAILY PRN PO 10/03/17 21:15 Pharmacy Profile Note 0 ml @ 0 mls/hr UNSCH OTHER 10/03/17 21:15 Piperacillin Sod/ Tazobactam Sod 100 ml @ 200 mls/hr Q6H IV 10/04/17 02:00 10/05/17 08:10 Potassium Chloride 100 ml @ 50 mls/hr Q2H PRN IV 10/04/17 01:00 Potassium Chloride 100 ml @ 50 mls/hr Q2H PRN IV 10/04/17 01:00 (K-Lyte Cl Eff) 50 meq UNSCH PRN PO 10/04/17 01:00 Potassium Chloride 100 ml @ 25 mls/hr UNSCH PRN IV 10/04/17 01:00 Potassium Chloride 100 ml @ 50 mls/hr Q2H PRN IV 10/04/17 01:00 Magnesium Sulfate 4 gm/Sodium Chloride 100 ml @ 50 mls/hr UNSCH PRN IV 10/04/17 01:00 (Mag-Ox) 800 mg UNSCH PRN PO 10/04/17 01:00 Magnesium Sulfate 2 gm/Sodium Chloride 100 ml @ 50 mls/hr UNSCH PRN IV 10/04/17 01:00 (K-Phos) 2,000 mg Q4H PRN PO 10/04/17 01:00 Sodium Phosphate 30 mmol/Sodium Chloride 250 ml @ 42 mls/hr UNSCH PRN IV 10/04/17 01:00 (K-Phos) 2,000 mg UNSCH PRN PO/TUBE 10/04/17 01:00 Potassium Phosphate 30 mmol/ Sodium Chloride 260 ml @ 42 mls/hr UNSCH PRN IV 10/04/17 01:00 (Flovent Hfa 44 Mcg Inh) 2 puff BID INH 10/04/17 09:00 (Robaxin) 500 mg QID PO 10/04/17 09:00 10/05/17 08:08 Acetaminophen 100 ml @ 400 mls/hr Q6H PRN IV 10/04/17 12:00 10/05/17 03:09 (Peridex 0.12% Liq) 15 ml BID@08,20 MT 10/04/17 20:00 10/05/17 08:07 Propofol 100 ml @ 3 mls/hr TITRATE PRN IV 10/04/17 14:45 10/05/17 10:05 Midazolam HCl 100 ml @ 2 mls/hr TITRATE PRN IV 10/04/17 14:45 Fentanyl Citrate 250 ml @ 5 mls/hr TITRATE PRN IV 10/04/17 14:45 10/05/17 09:20 Vancomycin HCl 1750 mg/Sodium Chloride 517.5 ml @ 257.5 mls/ hr Q12H IV 10/04/17 16:00 10/05/17 05:15 Miscellaneous Information SPECIFIC LAB TO BE ABE... ONCE ONCE .XX 10/05/17 15:45 10/05/17 15:46 (Beneprotein Powder) 2 pack TID OG-TUBE 10/05/17 13:00 (Free Water) 200 ml Q6HR OG-TUBE 10/05/17 12:00 Vital Signs / I&O Vital Signs Date Time Temp Pulse Resp B/P (MAP) Pulse Ox O2 Delivery O2 Flow Rate FiO2 10/05/17 11:39 100 40 10/05/17 10:00 100 10/05/17 09:07 100 40 10/05/17 08:00 100.3 97 16 115/71 (86) 95 10/05/17 08:00 97 10/05/17 08:00 40 10/05/17 06:00 100 10/05/17 05:00 99.0 10/05/17 04:21 100 40 10/05/17 04:00 107 10/05/17 04:00 40 10/05/17 04:00 107 17 103/54 (70) 100 10/05/17 03:00 102.7 118 18 96/51 (66) 100 10/05/17 02:00 121 10/05/17 00:31 99 50 10/05/17 00:00 100.1 129 17 110/53 (72) 99 10/05/17 00:00 50 10/05/17 00:00 129 10/04/17 22:00 124 10/04/17 21:35 100 100 10/04/17 21:04 100 100 10/04/17 20:35 100 50 10/04/17 20:00 113 10/04/17 20:00 50 10/04/17 20:00 100.7 113 24 104/54 (71) 100 10/04/17 18:00 117 10/04/17 16:00 101.5 128 28 102/54 (70) 100 10/04/17 16:00 121 10/04/17 14:00 127 10/04/17 14:00 96 50 10/04/17 12:59 26 I/O 10/04/17 10/04/17 10/04/17 10/05/17 10/05/17 10/05/17 07:00 15:00 23:00 07:00 15:00 23:00 Intake Total 5200 ml 960 ml 4433.5 ml 350 ml Output Total 1150 ml 1450 ml 1600 ml Balance 4050 ml 960 ml 2983.5 ml -1250 ml Intake Oral 600 ml 600 ml 0 ml IV Total 4600 ml 3183.5 ml 350 ml Packed Cells 800 ml 650 ml Blood Product IV Normal Saline Flush 160 ml Output Urine Total 1150 ml 1450 ml 1600 ml # Bowel Movements 0 0 Physical Exam GENERAL: Intubated and sedated SKIN: Warm and dry. HEAD: Atraumatic. Normocephalic. EYES: Pupils equal and round. No scleral icterus. No injection or drainage. ENT: No nasal bleeding or discharge. Mucous membranes pink and moist. NECK: Trachea midline. No JVD. CARDIOVASCULAR: Regular rate and rhythm. Mildly tachycardic RESPIRATORY: No accessory muscle use. Decreased breath sounds GASTROINTESTINAL: Abdomen soft, non-tender, nondistended. Hepatic and splenic margins not palpable. MUSCULOSKELETAL: Extremities without clubbing, cyanosis, or edema. No obvious deformities. NEUROLOGICAL: Intubated and sedated Laboratory Laboratory Tests Test 10/04/17 16:37 10/04/17 17:40 Blood Gas Puncture Site LT RADIAL Blood Gas Patient Temperature 98.6 Blood Gas HCO3 18 mmol/L Blood Gas Base Excess -6.9 mmol/L Blood Gas Oxygen Saturation 92 % Arterial Blood pH 7.33 Arterial Blood Partial Pressure CO2 35 mmHg Arterial Blood Partial Pressure O2 75 mmHg Arterial Blood Oxygen Content 10.6 Vol % Arterial Blood Carboxyhemoglobin 2.0 % Arterial Blood Methemoglobin 1.3 % Blood Gas Hemoglobin 8.2 G/DL Oxygen Delivery Device VENTILATOR Blood Gas Ventilator Setting AC/VT500/R16/P5 Blood Gas Inspired Oxygen 50 % White Blood Count 11.5 TH/MM3 Red Blood Count 2.67 MIL/MM3 Hemoglobin 7.8 GM/DL Hematocrit 22.4 % Mean Corpuscular Volume 84.0 FL Mean Corpuscular Hemoglobin 29.3 PG Mean Corpuscular Hemoglobin Concent 34.9 % Red Cell Distribution Width 21.0 % Platelet Count 97 TH/MM3 Mean Platelet Volume 8.4 FL Neutrophils (%) (Auto) 78.6 % Lymphocytes (%) (Auto) 8.6 % Monocytes (%) (Auto) 11.9 % Eosinophils (%) (Auto) 0.6 % Basophils (%) (Auto) 0.3 % Neutrophils # (Auto) 9.0 TH/MM3 Lymphocytes # (Auto) 1.0 TH/MM3 Monocytes # (Auto) 1.4 TH/MM3 Eosinophils # (Auto) 0.1 TH/MM3 Basophils # (Auto) 0.0 TH/MM3 CBC Comment AUTO DIFF Differential Total Cells Counted 100 Neutrophils % (Manual) 84 % Band Neutrophils % 7 % Lymphocytes % 4 % Monocytes % 3 % Neutrophils # (Manual) 10.7 TH/MM3 Metamyelocytes 2 % Nucleated Red Blood Cells 2 /100 WBC Differential Comment FINAL DIFF MANUAL Toxic Granulation 1+ Toxic Vacuolation PRESENT Dohle Bodies PRESENT Platelet Estimate LOW Platelet Morphology Comment ENLARGED Assessment and Plan Problem List: (1) Sepsis ICD Codes: A41.9 - Sepsis, unspecified organism Status: Acute (2) Endocarditis ICD Codes: I38 - Endocarditis, valve unspecified (3) Tobacco abuse ICD Codes: Z72.0 - Tobacco use (4) IV drug abuse ICD Codes: F19.10 - Other psychoactive substance abuse, uncomplicated Assessment and Plan 1) Severe sepsis secondary to endocarditis Per critical care/ID Appears to have both a large tricuspid valve as well as a moderate pulmonic valve endocarditis Anti-biotics per ID CT surgery evaluation, con't anti-biotics and repeat echo in 4-6 weeks 2) Tobacco abuse 3) IV heroine abuse 4) VDRF Problem Qualifiers (1) Sepsis: Qualified Codes: A41.9 - Sepsis, unspecified organism Zen Roberts DO Oct 05, 2017 12:17
[2017-10-05] MEDS: BENEPROTEIN POWDER 1 PACK OG-TUBE SCH ×2 (12:38→18:00)
[2017-10-05 14:05] LABS: BASOPHIL # 0.1 TH/MM3 (0-0.2); BASOPHIL % 0.5 % (0.0-2.0); EOSINOPHIL # 0.1 TH/MM3 (0-0.4); EOSINOPHIL % 0.9 % (0.0-4.0); HEMATOCRIT 25.7 % (39.0-51.0); HEMOGLOBIN 8.8 GM/DL (13.0-17.0); LYMPH % 6.4 % (9.0-44.0); LYMPHOCYTE # 0.8 TH/MM3 (1.0-4.8); MEAN CELL VOLUME 86.5 FL (80.0-100.0); MEAN CORPUSCULAR HEMOGLOBIN 29.6 PG (27.0-34.0); MEAN CORPUSCULAR HGB CONC 34.2 % (32.0-36.0); MEAN PLATELET VOLUME 8.4 FL (7.0-11.0); MONO % 7.2 % (0.0-8.0); MONOCYTE # 0.9 TH/MM3 (0-0.9); PLATELET COUNT 100 TH/MM3 (150-450); RED BLOOD COUNT 2.97 MIL/MM3 (4.50-5.90); RED CELL DISTRIBUTION WIDTH 21.5 % (11.6-17.2)
[2017-10-05 14:29] LABS: ALBUMIN 1.4 GM/DL (3.4-5.0); ALKALINE PHOSPHATASE 80 U/L (45-117); ALT (GPT) 12 U/L (12-78); AST (GOT) 21 U/L (15-37); BICARBONATE 21.8 MEQ/L (21.0-32.0); BLOOD UREA NITROGEN 26 MG/DL (7-18); CALCIUM 7.5 MG/DL (8.5-10.1); CHLORIDE 111 MEQ/L (98-107); CREATININE 1.35 MG/DL (0.60-1.30); GLOMERULAR FILTRATION RATE 64 ML/MIN (>89); GLUCOSE,RANDOM 59 MG/DL (74-106); SODIUM (NA) 140 MEQ/L (136-145); TOTAL BILIRUBIN ADULT 1.6 MG/DL (0.2-1.0)
[2017-10-05] MEDS ORDERED: PHARMACY ORDERED LAB ONE (15:45)
[2017-10-05] MEDS: OXACILLIN INJ 2 GM in SODIUM CHLORIDE 0.9% INJ 100 ML IV SCH ×2 (18:00→21:08)
[2017-10-05] MEDS: SODIUM CHLORIDE 0.9% FLUSH 10 ML FLUSH IV FLUSH PRN (21:09)
[2017-10-06] VITALS (19 sets, daily range): BP systolic 90–101; BP diastolic 46–54; PULSE 122–134; RESP 12–23; TEMP 98.7–103.1; O2SAT 98–100
[2017-10-06] MEDS: OXACILLIN INJ 2 GM in SODIUM CHLORIDE 0.9% INJ 100 ML IV SCH ×6 (02:21→21:23)
[2017-10-06] MEDS: SODIUM CHLOR 0.9% 1000 ML INJ 1,000 ML IV SCH (03:34)
[2017-10-06] MEDS: fentaNYL DRIP 250 ML IV PRN ×3 (03:34→22:23)
[2017-10-06] MEDS: CHLORHEXIDINE GLUCONATE 2 % 1 PACK (2 CLOTHS) TOP SCH (03:35)
[2017-10-06] MEDS: RESP: ALBUTEROL 2.5 MG/IPRATROPIUM 0.5 MG NEB (SCH) INH ×4 (04:03→20:18)
--- NOTE | 2017-10-06 04:07 | RADRPT ---
EXAM DATE/TIME: 10/06/2017 03:20 [facility] COMPARISON: CHEST SINGLE AP, October 04, 2017, 16:11. INDICATIONS : Shortness of breath, possible pulmonary disease. MEDICAL HISTORY : None. SURGICAL HISTORY : None. ENCOUNTER: Subsequent ACUITY: 3 days PAIN SCORE: Non-responsive. LOCATION: Bilateral chest FINDINGS: Cardiomegaly, bilateral effusions and increasing consolidation identified. Endotracheal tube and ente michael tube present. Osseous structures are intact. CONCLUSION: Worsening appearance of the chest. Chadwick Diaz MD on October 06, 2017 at 4:04 Board Certified Radiologist. This report was verified electronically.
[2017-10-06] MEDS: PROPOFOL 1000 MG/100 ML INJ 100 ML IV PRN ×2 (04:39→22:24)
[2017-10-06] MEDS: FREE WATER OG-TUBE SCH ×4 (06:00→18:00)
[2017-10-06] MEDS ORDERED: VANCOMYCIN 1,000 MG/NS 250 ML IV SCH ×2 (08:00)
--- NOTE | 2017-10-06 08:16 | HHI.CCPN ---
Subjective Remarks/Hospital Course 27-year-old male with remote history of IV drug abuse, states he last used heroin 2 months ago, presents for evaluation of 8 days of body aches, 7 days of diarrhea with development of subjective fever yesterday. Patient denies any nausea or vomiting. He denies any chest pain. States that he is short of breath and feels anxious. This has developed within the last 24 hours. Patient does have a cough with clear sputum. Denies any prior history of endocarditis. Denies any abdominal pain. Does report some left back pain, worse while lying flat. He is well reports generalized weakness. 10/04/17: He is critically ill, remains febrile up to 103, tachycardic diaphoretic. large tricuspid valve vegetation on bedside echo, formal echo pending. Infectious disease consulted, CT surgery consult ordered. D/W Dr. Macias and Dr. Charles. CARMEN/radiology ct technologist consult ordered. Hb 6.6 getting 2U PRBC 10/05: Remains critically ill intubated sedated. TE on yesterday TEF 40-45%. Large mobile vegetation noted on the tricuspid valve, may be 2 separate vegetations, measures overall 4cm x 1.7cm. Probable mobile density noted on the pulmonic valve. CT of the chest shows extensive septic emboli and consolidation , with loculated appearing effusion on the left base. Dr. Charles CT surgery recommends 4-6 weeks of IV antibiotics followed by repeat echo, considering surgery at that time if no improvement 10/06: Worsening CXR, with bibasilar worsening infiltrates and effusion. IR to place CT-guided left chest tube today for loculated effusion. Fluid overloaded approximately 8 kg. IV Lasix 40 mg x1. MSSA bacteremia persists Objective Vital Signs Date Time Temp Pulse Resp B/P (MAP) Pulse Ox O2 Delivery O2 Flow Rate FiO2 10/06/17 08:01 99 40 10/06/17 06:00 123 10/06/17 04:00 99.3 15 90/54 (66) 10/04/17 07:42 Nasal Cannula 2.00 Intake and Output 10/06/17 10/06/17 10/07/17 08:00 16:00 00:00 Intake Total 2042 ml Output Total 400 ml Balance 1642 ml Result Diagram: 10/05/17 1340 10/05/17 1340 Other Results Microbiology Date/Time Source Procedure Growth Status 10/03/17 17:40 Nasal Aspirate Influenza Types A,B Antigen (GIOVANA) - Final NEGATIVE FOR FLU A AND B ANTIGEN.... Complete 10/03/17 21:30 Urine Random Urine Legionella Antigen - Final PRESUMPTIVE NEGATIVE FOR LEGIONELLA P... Complete 10/03/17 21:30 Urine Random Urine Streptococcus pneumoniae Antigen (M - Final PRESUMPTIVE NEGATIVE FOR STREPTOCOCCU... Complete 10/03/17 21:30 Urine Random Urine Urine Culture - Final NO GROWTH IN 48 HOURS. Complete 10/03/17 17:45 Urine Clean Catch Urine Culture - Final 10-50,000 CFU/ML MIXED GRAM POSITIVE ... Complete Objective Remarks GENERAL: Well-nourished, well-developed patient. Critically ill, intubated sedated SKIN: Warm and dry. Extensive tattoos limits skin exam HEAD: Normocephalic. EYES: No scleral icterus. No injection or drainage. ENT: Orotracheally intubated NECK: Supple, trachea midline. No JVD or lymphadenopathy. CARDIOVASCULAR: S1-S2 normal with systolic murmur at the left sternal border. Large TV vegetation on bedside echo RESPIRATORY: Air entry is equal bilaterally, coarse rhonchi and crackles GASTROINTESTINAL: Abdomen soft, non-tender, nondistended. MUSCULOSKELETAL: No cyanosis, or edema. NEURO EXAM: The patient is intubated heavily sedated, Pupils are round, reactive to light. Moves extremities spontaneously when sedation is lightened A/P Assessment and Plan Neuro IVDU: -Propofol Versed and fentanyl for vent synchrony and sedation --Watch closely for withdrawal Resp: Acute hypoxemic respiratory failure Extensive septic emboli, consolidation of the lung Loculated left effusion - Continue ventilator support, no vent weaning until respiratory status improved , IR chest tube placed - CT-guided chest tube placement for left loculated effusion, with lab studies, D/W Dr. German Yarbrough - Discussed with cardiothoracic surgery Dr. Charles, patient may need decortication - Broad-spectrum antibiotics per ID, see below - DuoNeb q6hr and PRN CVS: Large tricuspid valve vegetation, and pulmonic vegetation Severe sepsis Fluid overload - Bedside echo shows mild tricuspid regurgitation - Cardiology and CT surgery consult - CARMEN 10/04: EF 40-45%. Large mobile vegetation on tricuspid valve, may be 2 separate vegetations, measures overall 4cm x 1.7cm. - Probable mobile density noted on the pulmonic valve. - See ID section for ABX - Dr. Charles CT surgery recommends 4-6 weeks of antibiotics and repeat echo - DC NS, IV Lasix 40 mg x1 GI: Hepatosplenomegaly Diarrhea - IV famotidine - Tube feeds with Jevity -placed on hold for IR procedure - Check C Diff, if diarrhea persist - Hepatitis panel pending : Acute kidney injury Dehydration on admission - Aggressive IV fluids resuscitation completed - Currently fluid overloaded with worsening bilateral effusion. Will start careful diuresis - Strict I's and O's - Monitor trend of creatinine - Electrolytes replacement per ICU protocol ID: Tricuspid and pulmonic valve endocarditis Septic emboli to the lung Severe sepsis MSSA bacteremia - Discussed with Dr. Charles CT surgery 10/05/17 - He recommends 4-6 weeks of IV antibiotics with repeat echo, consideration for surgery if Vegetations persists - Continue Zosyn, and vancomycin for now per ID Dr. Macias - F/U cultures - F/u HIV, Hepatitis panel Endo: -Electrolyte replacement per protocol Heme: Anemia requiring transfusion Thrombocytopenia - s/p 2 units PRBC - Monitor CBC, Coags - Thrombocytopenia base most likely from sepsis and DIC DVT GI prophylaxis - TEDs SCDs - Avoiding chemical DVT prophylaxis due to blood loss anemia, start Lovenox after chest tube placement - Pepcid Critical Care: The total critical care time was 40 minutes. Time to perform other separately billable procedures was not included in the critical care time. Patient remains very critical with multiorgan failure and severe septic shock. He has huge tricuspid valve and probably pulmonic valve vegetations. His prognosis appears guarded Jaki Barraza MD Oct 06, 2017 08:16
[2017-10-06] MEDS ORDERED: FUROSEMIDE 40 MG/4 ML VIAL IV PUSH ONE (09:00)
[2017-10-06] MEDS ORDERED: ALBUMIN 25% INJ 100 ML IV ONE (09:00)
[2017-10-06] MEDS: BENEPROTEIN POWDER 1 PACK OG-TUBE SCH ×3 (09:00→18:00)
[2017-10-06] MEDS: VASOPRESSIN INJ 40 UNITS in DEXTROSE 5% IN WATER 100ML INJ 98 ML IV SCH ×2 (09:00)
[2017-10-06] MEDS: FLUTICASONE PROPIONATE 44 MCG/ACT 10.6 GM INHALER INH SCH (09:00)
[2017-10-06 09:11] LABS: AUTOMATED NEUTROPHIL # 12.9 TH/MM3 (1.8-7.7); BASOPHIL # 0.1 TH/MM3 (0-0.2); BASOPHIL % 0.4 % (0.0-2.0); EOSINOPHIL # 0.1 TH/MM3 (0-0.4); EOSINOPHIL % 0.9 % (0.0-4.0); HEMATOCRIT 23.1 % (39.0-51.0); HEMOGLOBIN 7.7 GM/DL (13.0-17.0); LYMPHOCYTE # 1.1 TH/MM3 (1.0-4.8); MEAN CELL VOLUME 87.3 FL (80.0-100.0); MEAN CORPUSCULAR HEMOGLOBIN 29.2 PG (27.0-34.0); MEAN CORPUSCULAR HGB CONC 33.4 % (32.0-36.0); MEAN PLATELET VOLUME 8.9 FL (7.0-11.0); MONO % 6.4 % (0.0-8.0); NEUT % 85.3 % (16.0-70.0); PLATELET COUNT 102 TH/MM3 (150-450); RED BLOOD COUNT 2.65 MIL/MM3 (4.50-5.90); WHITE BLOOD COUNT 15.1 TH/MM3 (4.0-11.0)
[2017-10-06] MEDS: SODIUM CHLORIDE 0.9% FLUSH 10 ML FLUSH IV FLUSH SCH ×2 (09:11→21:22)
[2017-10-06] MEDS: FAMOTIDINE 20 MG/2 ML VIAL IV PUSH SCH ×2 (09:11→21:28)
[2017-10-06] MEDS: METHOCARBAMOL 500 MG TAB PO SCH ×4 (09:11→21:28)
[2017-10-06] MEDS: CHLORHEXIDINE 0.12% (ORAL KIT) 15 ML CUP MT SCH ×2 (09:11→21:23)
[2017-10-06] MEDS: DOCUSATE SODIUM 50 MG/SENNA 8.6 MG TAB PO SCH ×2 (09:11→21:23)
[2017-10-06 09:18] LABS: INTERNATIONAL NORMALIZED RATIO 1.1 RATIO; PROTHROMBIN TIME - PATIENT 11.5 SEC (9.8-11.6)
[2017-10-06 09:42] LABS: ALBUMIN 1.1 GM/DL (3.4-5.0); AST (GOT) 30 U/L (15-37); BICARBONATE 19.4 MEQ/L (21.0-32.0); BLOOD UREA NITROGEN 37 MG/DL (7-18); CALCIUM 7.5 MG/DL (8.5-10.1); CHLORIDE 111 MEQ/L (98-107); GLOMERULAR FILTRATION RATE 41 ML/MIN (>89); GLUCOSE,RANDOM 107 MG/DL (74-106); MAGNESIUM 3.1 MG/DL (1.5-2.5); SODIUM (NA) 141 MEQ/L (136-145)
[2017-10-06 09:44] LABS: BANDS 11 % (0-6); LYMPHOCYTES 4 % (9-44); METAMYELOCYTES 1 % (0-1); MONOCYTES 5 % (0-8); NEUTROPHIL # MANUAL DIFF 13.6 TH/MM3 (1.8-7.7); POLYS (SEG NEUTROPHILS) 78 % (16-70)
[2017-10-06 09:45] LABS: DOHLE BODIES PRESENT (NONE SEEN); TOXIC GRANULATION 2+ (NORMAL)
[2017-10-06 09:48] LABS: ALKALINE PHOSPHATASE 134 U/L (45-117); ALT (GPT) 9 U/L (12-78); RANDOM VANCOMYCIN 17.7 COMMENT; TOTAL PROTEIN 6.6 GM/DL (6.4-8.2)
[2017-10-06] MEDS ORDERED: CALCIUM CHLORIDE INJ 1 GM in SODIUM CHLORIDE 0.9% INJ 100 ML IV ONE (12:30)
[2017-10-06] MEDS ORDERED: SODIUM POLYSTYRENE SULFONATE SUSP 15 GM/60 ML CUP PO ONE ×2 (12:30→19:15)
[2017-10-06] MEDS ORDERED: INSULIN HUMAN REGULAR 1,000 UNITS/10 ML VIAL IV PUSH ONE ×2 (12:30→19:15)
[2017-10-06] MEDS ORDERED: SODIUM BICARBONATE 8.4% INJ 50 MEQ/50 ML SYR IV PUSH ONE ×2 (12:30→19:15)
[2017-10-06] MEDS ORDERED: DEXTROSE 50% IN WATER 50 ML SYRINGE IV PUSH ONE ×2 (12:30→19:15)
[2017-10-06] MEDS ORDERED: LIDOCAINE HCL 1% 20 ML VIAL ONE (14:38)
[2017-10-06] MEDS ORDERED: MIDAZOLAM HCL 2 MG/2 ML VIAL ONE (15:13)
--- NOTE | 2017-10-06 15:22 | PD.CARD.PN ---
Subjective Subjective Remarks No events over night CXR worse with effusions Objective Medications Current Medications Medications (Trade) Dose Ordered Sig/Willem Route Start Time Stop Time Status Last Admin (NS Flush) 2 ml UNSCH PRN IV FLUSH 10/03/17 21:15 10/05/17 21:09 (NS Flush) 2 ml BID IV FLUSH 10/04/17 09:00 10/06/17 09:11 (Tylenol) 650 mg Q6H PRN PO 10/03/17 21:15 10/04/17 11:44 (Morphine Inj) 2 mg Q2H PRN IV PUSH 10/03/17 21:15 10/04/17 12:54 (Pepcid Inj) 10 mg Q12HR IV PUSH 10/04/17 09:00 10/06/17 09:11 (Ativan Inj) 1 mg Q1H PRN IV PUSH 10/03/17 21:15 10/04/17 12:14 (Zofran Inj) 4 mg Q6H PRN IV PUSH 10/03/17 21:15 (Restoril) 15 mg HS PRN PO 10/03/17 21:15 (Duoneb Neb) 1 ampule Q6HR NEB INH 10/03/17 22:00 10/06/17 04:03 (Duoneb Neb) 1 ampule Q2HR NEB PRN INH 10/03/17 21:15 Miscellaneous Information 1 Q361D XX 10/03/17 21:15 (Chlorhexidine 2% Cloth) 3 pack Taper DAILY@04 TOP 10/04/17 04:00 09/30/18 03:59 10/06/17 03:35 (Chlorhexidine 2% Cloth) 3 pack UNSCH PRN TOP 10/03/17 21:15 (Renita-Colace) 1 tab BID PO 10/04/17 09:00 10/06/17 09:11 (Milk Of Magnesia Liq) 30 ml Q12H PRN PO 10/03/17 21:15 (Senokot) 17.2 mg Q12H PRN PO 10/03/17 21:15 (Dulcolax Supp) 10 mg DAILY PRN RECTAL 10/03/17 21:15 (Lactulose Liq) 30 ml DAILY PRN PO 10/03/17 21:15 Pharmacy Profile Note 0 ml @ 0 mls/hr UNSCH OTHER 10/03/17 21:15 Potassium Chloride 100 ml @ 50 mls/hr Q2H PRN IV 10/04/17 01:00 Potassium Chloride 100 ml @ 50 mls/hr Q2H PRN IV 10/04/17 01:00 (K-Lyte Cl Eff) 50 meq UNSCH PRN PO 10/04/17 01:00 Potassium Chloride 100 ml @ 25 mls/hr UNSCH PRN IV 10/04/17 01:00 Potassium Chloride 100 ml @ 50 mls/hr Q2H PRN IV 10/04/17 01:00 Magnesium Sulfate 4 gm/Sodium Chloride 100 ml @ 50 mls/hr UNSCH PRN IV 10/04/17 01:00 (Mag-Ox) 800 mg UNSCH PRN PO 10/04/17 01:00 Magnesium Sulfate 2 gm/Sodium Chloride 100 ml @ 50 mls/hr UNSCH PRN IV 10/04/17 01:00 (K-Phos) 2,000 mg Q4H PRN PO 10/04/17 01:00 Sodium Phosphate 30 mmol/Sodium Chloride 250 ml @ 42 mls/hr UNSCH PRN IV 10/04/17 01:00 (K-Phos) 2,000 mg UNSCH PRN PO/TUBE 10/04/17 01:00 Potassium Phosphate 30 mmol/ Sodium Chloride 260 ml @ 42 mls/hr UNSCH PRN IV 10/04/17 01:00 (Flovent Hfa 44 Mcg Inh) 2 puff BID INH 10/04/17 09:00 (Robaxin) 500 mg QID PO 10/04/17 09:00 10/06/17 12:05 Acetaminophen 100 ml @ 400 mls/hr Q6H PRN IV 10/04/17 12:00 10/05/17 03:09 (Peridex 0.12% Liq) 15 ml BID@08,20 MT 10/04/17 20:00 10/06/17 09:11 Propofol 100 ml @ 3 mls/hr TITRATE PRN IV 10/04/17 14:45 10/06/17 04:39 Midazolam HCl 100 ml @ 2 mls/hr TITRATE PRN IV 10/04/17 14:45 Fentanyl Citrate 250 ml @ 5 mls/hr TITRATE PRN IV 10/04/17 14:45 10/06/17 13:43 (Beneprotein Powder) 2 pack TID OG-TUBE 10/05/17 13:00 10/06/17 12:04 (Free Water) 200 ml Q6HR OG-TUBE 10/05/17 12:00 10/06/17 12:00 Vancomycin HCl 1000 mg/Sodium Chloride 250 ml @ 250 mls/hr Q8H IV 10/06/17 08:00 Future Hold 10/06/17 08:00 Oxacillin Sodium 2 gm/Sodium Chloride 100 ml @ 200 mls/hr Q4H IV 10/05/17 18:00 10/06/17 14:18 Vasopressin 40 units/Dextrose 100 ml @ 6 mls/hr [id number] IV 10/06/17 09:00 Vital Signs / I&O Vital Signs Date Time Temp Pulse Resp B/P (MAP) Pulse Ox O2 Delivery O2 Flow Rate FiO2 10/06/17 12:00 99.8 122 16 101/52 (68) 100 10/06/17 12:00 122 10/06/17 12:00 40 10/06/17 11:30 100 40 10/06/17 10:00 122 10/06/17 09:00 126 97/52 10/06/17 08:01 99 40 10/06/17 08:00 40 10/06/17 08:00 99.6 126 12 96/53 (67) 99 10/06/17 08:00 126 10/06/17 06:00 123 10/06/17 04:04 100 40 10/06/17 04:00 99.3 123 15 90/54 (66) 100 10/06/17 04:00 123 10/06/17 04:00 35 10/06/17 02:00 124 10/06/17 00:22 100 40 10/06/17 00:00 98.7 123 16 91/46 (61) 100 10/06/17 00:00 40 10/06/17 00:00 123 10/05/17 22:00 125 10/05/17 20:24 100 40 10/05/17 20:00 40 10/05/17 20:00 100.5 109 16 97/47 (64) 100 10/05/17 20:00 109 10/05/17 18:00 86 10/05/17 16:00 115 10/05/17 16:00 99.6 115 20 101/49 (66) 100 10/05/17 16:00 40 I/O 10/05/17 10/05/17 10/05/17 10/06/17 10/06/17 10/06/17 07:00 15:00 23:00 07:00 15:00 23:00 Intake Total 350 ml 3070 ml 2042 ml 2590 ml Output Total 1600 ml 500 ml 400 ml Balance -1250 ml 2570 ml 1642 ml 2590 ml Intake Oral 0 ml IV Total 350 ml 3032 ml 1200 ml 2590 ml Tube Feeding 38 ml 442 ml Other 400 ml Output Urine Total 1600 ml 500 ml 400 ml # Bowel Movements 0 0 Physical Exam GENERAL: Intubated and sedated SKIN: Warm and dry. HEAD: Atraumatic. Normocephalic. EYES: Pupils equal and round. No scleral icterus. No injection or drainage. ENT: No nasal bleeding or discharge. Mucous membranes pink and moist. NECK: Trachea midline. No JVD. CARDIOVASCULAR: Regular rate and rhythm. Mildly tachycardic RESPIRATORY: No accessory muscle use. Decreased breath sounds GASTROINTESTINAL: Abdomen soft, non-tender, nondistended. Hepatic and splenic margins not palpable. MUSCULOSKELETAL: Extremities without clubbing, cyanosis, or edema. No obvious deformities. NEUROLOGICAL: Intubated and sedated Laboratory Laboratory Tests Test 10/05/17 16:00 10/06/17 07:30 10/06/17 08:24 Vancomycin Level Trough 27.0 MCG/ML White Blood Count 15.1 TH/MM3 Red Blood Count 2.65 MIL/MM3 Hemoglobin 7.7 GM/DL Hematocrit 23.1 % Mean Corpuscular Volume 87.3 FL Mean Corpuscular Hemoglobin 29.2 PG Mean Corpuscular Hemoglobin Concent 33.4 % Red Cell Distribution Width 22.0 % Platelet Count 102 TH/MM3 Mean Platelet Volume 8.9 FL Neutrophils (%) (Auto) 85.3 % Lymphocytes (%) (Auto) 7.0 % Monocytes (%) (Auto) 6.4 % Eosinophils (%) (Auto) 0.9 % Basophils (%) (Auto) 0.4 % Neutrophils # (Auto) 12.9 TH/MM3 Lymphocytes # (Auto) 1.1 TH/MM3 Monocytes # (Auto) 1.0 TH/MM3 Eosinophils # (Auto) 0.1 TH/MM3 Basophils # (Auto) 0.1 TH/MM3 CBC Comment AUTO DIFF Differential Total Cells Counted 100 Neutrophils % (Manual) 78 % Band Neutrophils % 11 % Lymphocytes % 4 % Monocytes % 5 % Eosinophils % 1 % Neutrophils # (Manual) 13.6 TH/MM3 Metamyelocytes 1 % Differential Comment FINAL DIFF MANUAL Toxic Granulation 2+ Dohle Bodies PRESENT Platelet Estimate LOW Platelet Morphology Comment ENLARGED Blood Urea Nitrogen 37 MG/DL Creatinine 2.00 MG/DL Random Glucose 107 MG/DL Total Protein 6.6 GM/DL Albumin 1.1 GM/DL Calcium Level 7.5 MG/DL Magnesium Level 3.1 MG/DL Alkaline Phosphatase 134 U/L Aspartate Amino Transf (AST/SGOT) 30 U/L Alanine Aminotransferase (ALT/SGPT) 9 U/L Total Bilirubin 2.0 MG/DL Sodium Level 141 MEQ/L Potassium Level 5.8 MEQ/L Chloride Level 111 MEQ/L Carbon Dioxide Level 19.4 MEQ/L Anion Gap 11 MEQ/L Estimat Glomerular Filtration Rate 41 ML/MIN Random Vancomycin Level 17.7 COMMENT Prothrombin Time 11.5 SEC Prothromb Time International Ratio 1.1 RATIO Imaging Last 24 hours Impressions Chest X-Ray 10/06/17 0600 Signed Impressions: Service Date/Time: Friday, October 06, 2017 03:20 - CONCLUSION: Worsening appearance of the chest. 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
--- NOTE | 2017-10-06 16:02 | PD.RAD ---
Post CT Procedure Prog Note Pre Procedure Diagnosis: (1) Sepsis Post Procedure Diagnosis: (1) Sepsis Procedure Date: Oct 06, 2017 Supervising Radiologist: Emerson Hui Anesthesia: Conscious Sedation Plan of Activity Patient to Unit: Critical Care Patient Condition: Good See PACS Report for procedural detail/treatment Emerson Hui MD Oct 06, 2017 16:02
[2017-10-06 16:14] LABS: HEPATITIS B CORE AB IGM NEGATIVE (NEGATIVE)
[2017-10-06 16:33] LABS: HEPATITIS A AB IGM NEGATIVE (NEGATIVE)
--- NOTE | 2017-10-06 16:52 | RADRPT ---
EXAM DATE/TIME: 10/06/2017 15:37 INDICATIONS : History of septic emboli with loculated left inferolateral effusion. CT guided drainage has been requ ested due to persistent sepsis. SEDATION TIME: 45 minutes MEDICATION(S): 1.) 2 mg midazolam (Versed) IV DEVICE(S): 1.) [place] 12 Fr FLUID: Total volume [id number] cc of clear, red fluid was remoted. Fluid was sent for laboratory ordered studies. MEDICAL HISTORY : None. SURGICAL HISTORY : None. ENCOUNTER: Initial ACUITY: 1 day PAIN SCORE: Non-responsive LOCATION: Bilateral chest PROCEDURE: 1.) Conscious sedation with continuous EKG and oximetry monitoring. 2.) EKG and oximetry remained stable throughout the procedure. PROCEDURE : 1. CT guided chest tube placement. 2. Conscious sedation with continuous EKG and oximetry monitoring. The risks, benefits and alternatives to the procedure were explained and verbal and written consent w as obtained. The site was prepped in sterile fashion. Full sterile technique was used, including ca p, mask, sterile gloves and gown and a large sterile sheet. Hand hygiene and 2% chlorhexidine and/or betadine/alcohol prep was utilized per protocol for cutaneous antisepsis. The skin and subcutaneous tissues were infiltrated with local anesthetic solution. Using automated exposure control and adjus tment of the mA and/or kV according to patient size, radiation dose was kept as low as reasonably ach ievable to obtain optimal diagnostic quality images. DICOM format image data is available electronic ally for review and comparison. With CT guidance the chest was punctured and the prescribed catheter was placed in the lung apex. Wal l suction was applied. Post procedure images demonstrate satisfactory position of the tube. The cat heter was sutured in place and a Percu-Stay was applied. A proximally 900 cc of serosanguineous fluid was removed immediately following catheter placement. Conscious sedation was performed with the prescribed dosages and duration as above. The patient jordan ated the procedure well and there were no complications. EKG and oximetry remained stable throughout the procedure. The patient was sent to post anesthesia recovery in stable condition. CONCLUSION: Uncomplicated chest tube placement as above. Emerson Hui MD on October 06, 2017 at 16:47 Board Certified Radiologist. This report was verified electronically.
[2017-10-06 17:52] LABS: TOTAL PROTEIN,PLEURAL FLUID 3.8 GM/DL
[2017-10-06 18:40] LABS: PLEURAL FLUID RBC 8356 /MM3 (0-0); PLEURAL FLUID WBC 898 /MM3 (0-10)
[2017-10-06 18:41] LABS: PLEURAL FLUID HISTIOCYTES 2 %; PLEURAL FLUID LYMPHS 10 %; PLEURAL FLUID MONOS 11 %; PLEURAL FLUID POLYS (SEGS) 77 %
[2017-10-06] MEDS ORDERED: CALCIUM GLUCONATE INJ 2 GM in SODIUM CHLORIDE 0.9% INJ 100 ML IV ONE (19:15)
[2017-10-06] MEDS ORDERED: SODIUM CHLOR 0.9% 1000 ML INJ 1,000 ML IV ONE ×3 (19:15)
[2017-10-06] MEDS ORDERED: MAGNESIUM CITRATE SOLN 300 ML BTL NG ONE (19:15)
[2017-10-06] MEDS ORDERED: SODIUM POLYSTYRENE SULFONATE SUSP 15 GM/60 ML CUP RECTAL ONE (19:15)
[2017-10-06] MEDS: ACETAMINOPHEN 1000 MG/100 ML 100 ML IV PRN (22:10)
[2017-10-06 22:46] LABS: BICARBONATE 19.9 MEQ/L (21.0-32.0); CALCIUM 7.6 MG/DL (8.5-10.1); CREATININE 2.41 MG/DL (0.60-1.30)
[2017-10-07] VITALS (18 sets, daily range): BP systolic 94–102; BP diastolic 47–56; PULSE 102–123; RESP 15–17; TEMP 97.7–100.8; O2SAT 99–100
[2017-10-07] MEDS: VASOPRESSIN INJ 40 UNITS in DEXTROSE 5% IN WATER 100ML INJ 98 ML IV SCH ×4 (01:40→18:20)
[2017-10-07] MEDS: OXACILLIN INJ 2 GM in SODIUM CHLORIDE 0.9% INJ 100 ML IV SCH ×6 (02:50→19:21)
[2017-10-07] MEDS: RESP: ALBUTEROL 2.5 MG/IPRATROPIUM 0.5 MG NEB (SCH) INH ×2 (03:40→08:09)
[2017-10-07] MEDS: CHLORHEXIDINE GLUCONATE 2 % 1 PACK (2 CLOTHS) TOP SCH (04:00)
--- NOTE | 2017-10-07 05:03 | RADRPT ---
EXAM DATE/TIME: 10/07/2017 03:49 [place] COMPARISON: CHEST SINGLE AP, October 06, 2017, 3:20. INDICATIONS : Short of breath. MEDICAL HISTORY : None. SURGICAL HISTORY : None. ENCOUNTER: Subsequent ACUITY: 4 - 6 days PAIN SCORE: 0/10 LOCATION: Bilateral chest FINDINGS: There is a left sided chest tube in place. I do not see a pneumothorax. Stable enlargement of the car diac silhouette, bilateral consolidation and right effusion. Endotracheal tube tip at the inferior ma rgin of the clavicles. Enteric tube courses beneath the diaphragm. CONCLUSION: No definite pneumothorax with chest tube in place. Chadwick Diaz MD on October 07, 2017 at 5:00 Board Certified Radiologist. This report was verified electronically.
[2017-10-07] MEDS: FREE WATER OG-TUBE SCH ×4 (05:39→18:00)
[2017-10-07 07:04] LABS: AUTOMATED NEUTROPHIL # 12.4 TH/MM3 (1.8-7.7); BASOPHIL # 0.1 TH/MM3 (0-0.2); BASOPHIL % 0.5 % (0.0-2.0); EOSINOPHIL # 0.1 TH/MM3 (0-0.4); EOSINOPHIL % 0.8 % (0.0-4.0); HEMATOCRIT 21.6 % (39.0-51.0); HEMOGLOBIN 7.2 GM/DL (13.0-17.0); LYMPH % 6.9 % (9.0-44.0); MEAN CELL VOLUME 86.8 FL (80.0-100.0); MEAN CORPUSCULAR HEMOGLOBIN 29.1 PG (27.0-34.0); MEAN CORPUSCULAR HGB CONC 33.6 % (32.0-36.0); MEAN PLATELET VOLUME 8.8 FL (7.0-11.0); MONO % 4.9 % (0.0-8.0); MONOCYTE # 0.7 TH/MM3 (0-0.9); NEUT % 86.9 % (16.0-70.0); PLATELET COUNT 89 TH/MM3 (150-450); RED BLOOD COUNT 2.49 MIL/MM3 (4.50-5.90); RED CELL DISTRIBUTION WIDTH 21.8 % (11.6-17.2); WHITE BLOOD COUNT 14.3 TH/MM3 (4.0-11.0)
[2017-10-07 07:14] LABS: ALBUMIN 1.4 GM/DL (3.4-5.0); BICARBONATE 21.6 MEQ/L (21.0-32.0); CREATININE 3.02 MG/DL (0.60-1.30); MAGNESIUM 3.1 MG/DL (1.5-2.5); RANDOM VANCOMYCIN 19.1 COMMENT; TOTAL BILIRUBIN ADULT 1.7 MG/DL (0.2-1.0); TOTAL PROTEIN 7.1 GM/DL (6.4-8.2)
[2017-10-07 07:45] LABS: TOXIC GRANULATION 1+ (NORMAL); TOXIC VACUOLATION PRESENT (NONE SEEN)
[2017-10-07] MEDS: FLUTICASONE PROPIONATE 44 MCG/ACT 10.6 GM INHALER INH SCH ×2 (08:22→21:00)
[2017-10-07] MEDS: fentaNYL DRIP 250 ML IV PRN ×2 (08:38→18:00)
[2017-10-07] MEDS: FAMOTIDINE 20 MG/2 ML VIAL IV PUSH SCH ×2 (08:39→19:20)
[2017-10-07] MEDS: METHOCARBAMOL 500 MG TAB PO SCH ×4 (08:39→19:20)
[2017-10-07] MEDS: DOCUSATE SODIUM 50 MG/SENNA 8.6 MG TAB PO SCH ×2 (08:39→19:20)
[2017-10-07] MEDS: BENEPROTEIN POWDER 1 PACK OG-TUBE SCH ×3 (08:39→18:00)
[2017-10-07] MEDS: SODIUM CHLORIDE 0.9% FLUSH 10 ML FLUSH IV FLUSH SCH ×2 (08:40→19:21)
[2017-10-07] MEDS: CHLORHEXIDINE 0.12% (ORAL KIT) 15 ML CUP MT SCH ×2 (08:40→19:21)
[2017-10-07] MEDS: ALBUMIN 25% INJ 100 ML IV SCH ×2 (09:52→21:45)
[2017-10-07] MEDS: BUMETANIDE INJ 100 ML IV SCH (09:53)
[2017-10-07] MEDS: RESP: ALBUTEROL 2.5 MG/IPRATROPIUM 0.5 MG NEB (SCH) NEB ×3 (10:00→21:28)
--- NOTE | 2017-10-07 10:10 | PD.CONS ---
HPI Service Nephrology Consult Requested By Attending Reason for Consult ZEUS and fluid overloaded Primary Care Physician No Primary Care Physician History of Present Illness Patient is 27-year-old male who reported to ER with body aches, 7 days of diarrhea with development fever. Past medical history of IV drug use. Patient is sedated and ventilated FiO2 at 40 %. Nephrology is consulted for ZEUS and fluid over load status. Patients creatinine is 3.02 and GFR 25ml/min. Patient is UOP at 800cc for last 24 hours. Weight has increased by over 10 kg since admission. IVF's have been stopped and lasix has been given. Patient has endocarditis with large tricuspid valve vegetation, and pulmonic vegetation. Noted to have bacteremia with hypotension with SBP in the 90's. (Venus Barrett) Review of Systems ROS Limitations: Intubated (Venus Barrett) Past Family Social History Allergies: Coded Allergies: erythromycin base (Verified Allergy, Severe, Nausea/Vomiting, 10/03/17) raspberry (Unverified Allergy, Mild, 10/03/17) Past Medical History Asthma Active Ordered Medications Current Medications Medications (Trade) Dose Ordered Sig/Willem Route Start Time Stop Time Status Last Admin (NS Flush) 2 ml UNSCH PRN IV FLUSH 10/03/17 21:15 10/05/17 21:09 (NS Flush) 2 ml BID IV FLUSH 10/04/17 09:00 10/07/17 08:40 (Tylenol) 650 mg Q6H PRN PO 10/03/17 21:15 10/04/17 11:44 (Morphine Inj) 2 mg Q2H PRN IV PUSH 10/03/17 21:15 10/04/17 12:54 (Pepcid Inj) 10 mg Q12HR IV PUSH 10/04/17 09:00 10/07/17 08:39 (Ativan Inj) 1 mg Q1H PRN IV PUSH 10/03/17 21:15 10/04/17 12:14 (Zofran Inj) 4 mg Q6H PRN IV PUSH 10/03/17 21:15 (Restoril) 15 mg HS PRN PO 10/03/17 21:15 (Duoneb Neb) 1 ampule Q2HR NEB PRN INH 10/03/17 21:15 Miscellaneous Information 1 Q361D XX 10/03/17 21:15 (Chlorhexidine 2% Cloth) 3 pack Taper DAILY@04 TOP 10/04/17 04:00 09/30/18 03:59 10/07/17 04:00 (Chlorhexidine 2% Cloth) 3 pack UNSCH PRN TOP 10/03/17 21:15 (Renita-Colace) 1 tab BID PO 10/04/17 09:00 10/07/17 08:39 (Milk Of Magnesia Liq) 30 ml Q12H PRN PO 10/03/17 21:15 (Senokot) 17.2 mg Q12H PRN PO 10/03/17 21:15 (Dulcolax Supp) 10 mg DAILY PRN RECTAL 10/03/17 21:15 (Lactulose Liq) 30 ml DAILY PRN PO 10/03/17 21:15 Potassium Chloride 100 ml @ 50 mls/hr Q2H PRN IV 10/04/17 01:00 Potassium Chloride 100 ml @ 50 mls/hr Q2H PRN IV 10/04/17 01:00 (K-Lyte Cl Eff) 50 meq UNSCH PRN PO 10/04/17 01:00 Potassium Chloride 100 ml @ 25 mls/hr UNSCH PRN IV 10/04/17 01:00 Potassium Chloride 100 ml @ 50 mls/hr Q2H PRN IV 10/04/17 01:00 Magnesium Sulfate 4 gm/Sodium Chloride 100 ml @ 50 mls/hr UNSCH PRN IV 10/04/17 01:00 (Mag-Ox) 800 mg UNSCH PRN PO 10/04/17 01:00 Magnesium Sulfate 2 gm/Sodium Chloride 100 ml @ 50 mls/hr UNSCH PRN IV 10/04/17 01:00 (K-Phos) 2,000 mg Q4H PRN PO 10/04/17 01:00 Sodium Phosphate 30 mmol/Sodium Chloride 250 ml @ 42 mls/hr UNSCH PRN IV 10/04/17 01:00 (K-Phos) 2,000 mg UNSCH PRN PO/TUBE 10/04/17 01:00 Potassium Phosphate 30 mmol/ Sodium Chloride 260 ml @ 42 mls/hr UNSCH PRN IV 10/04/17 01:00 (Flovent Hfa 44 Mcg Inh) 2 puff BID INH 10/04/17 09:00 (Robaxin) 500 mg QID PO 10/04/17 09:00 10/07/17 11:47 Acetaminophen 100 ml @ 400 mls/hr Q6H PRN IV 10/04/17 12:00 10/06/17 22:10 (Peridex 0.12% Liq) 15 ml BID@08,20 MT 10/04/17 20:00 10/07/17 08:40 Propofol 100 ml @ 3 mls/hr TITRATE PRN IV 10/04/17 14:45 10/06/17 22:24 Midazolam HCl 100 ml @ 2 mls/hr TITRATE PRN IV 10/04/17 14:45 Fentanyl Citrate 250 ml @ 5 mls/hr TITRATE PRN IV 10/04/17 14:45 10/07/17 08:38 (Beneprotein Powder) 2 pack TID OG-TUBE 10/05/17 13:00 10/07/17 11:47 (Free Water) 200 ml Q6HR OG-TUBE 10/05/17 12:00 10/07/17 11:47 Oxacillin Sodium 2 gm/Sodium Chloride 100 ml @ 200 mls/hr Q4H IV 10/05/17 18:00 10/07/17 13:37 Vasopressin 40 units/Dextrose 100 ml @ 6 mls/hr [id number] IV 10/06/17 09:00 (Duoneb Neb) 1 ampule Q6HR NEB NEB 10/07/17 10:00 Bumetanide 100 ml @ 2 mls/hr Q24H IV 10/07/17 11:00 10/07/17 09:53 Albumin Human 100 ml @ 60 mls/hr Q12H IV 10/07/17 10:00 10/07/17 09:52 (Heparin Inj) 5,000 units Q8HR SQ 10/07/17 14:00 10/07/17 13:37 Social History Hx of IV drug use obtained from record (Venus Barrett) Physical Exam Vital Signs Vital Signs Date Time Temp Pulse Resp B/P (MAP) Pulse Ox O2 Delivery O2 Flow Rate FiO2 10/07/17 08:09 99 50 10/07/17 08:00 50 10/07/17 08:00 98.0 116 17 100/56 (71) 100 10/07/17 08:00 116 10/07/17 06:00 122 10/07/17 04:00 100.0 123 16 94/53 (67) 99 10/07/17 04:00 123 10/07/17 04:00 40 10/07/17 03:34 99 50 10/07/17 02:00 122 10/07/17 01:40 122 84/49 10/07/17 00:37 100 40 10/07/17 00:00 123 10/07/17 00:00 40 10/07/17 00:00 100.8 123 15 95/47 (63) 100 10/06/17 22:00 134 10/06/17 20:00 103.1 127 15 96/51 (66) 99 10/06/17 20:00 40 10/06/17 20:00 127 10/06/17 19:38 99 40 10/06/17 18:00 126 10/06/17 16:36 98 40 10/06/17 16:00 99.8 126 23 92/52 (65) 99 10/06/17 16:00 126 10/06/17 16:00 40 10/06/17 14:45 100 100 10/06/17 14:00 122 10/06/17 12:00 99.8 122 16 101/52 (68) 100 10/06/17 12:00 122 10/06/17 12:00 40 10/06/17 11:30 100 40 10/06/17 10:00 122 Physical Exam GENERAL: Well-nourished, well-developed patient. Critically ill, intubated sedated SKIN: Warm and dry. HEAD: Normocephalic. EYES: No scleral icterus. No injection or drainage. ENT: Orotracheally intubated NECK: Supple, trachea midline. No JVD or lymphadenopathy. CARDIOVASCULAR: S1-S2 normal with systolic murmur at the left sternal border. RESPIRATORY: breath sounds equal bilaterally, CT present GASTROINTESTINAL: Abdomen soft, non-tender, nondistended. MUSCULOSKELETAL: No cyanosis, or edema. Significant anasarca NEURO EXAM: The patient is intubated heavily sedated, opens eyes spontaneously Laboratory Laboratory Tests Test 10/06/17 15:50 10/06/17 17:45 10/07/17 00:00 10/07/17 05:07 Pleural Fluid pH 8.0 Pleural Fluid WBC 898 Pleural Fluid RBC 8356 Pleural Fluid Neutrophils 77 Pleural Fluid Lymphocytes 10 Pleural Fluid Monocytes 11 Pleural Fluid Histiocytes 2 Pleural Fluid Total Protein 3.8 Pleural Fluid LDH 537 Pleural Fluid Glucose 94 Blood Urea Nitrogen 44 45 Creatinine 2.41 3.02 Random Glucose 103 117 Calcium Level 7.6 7.0 Sodium Level 143 144 Potassium Level 6.0 5.5 Chloride Level 113 113 Carbon Dioxide Level 19.9 21.6 Anion Gap 10 9 Estimat Glomerular Filtration Rate 33 25 Blood Gas Puncture Site RT RADIAL Blood Gas Patient Temperature 98.6 Blood Gas HCO3 19 Blood Gas Base Excess -7.7 Blood Gas Oxygen Saturation 87 Arterial Blood pH 7.21 Arterial Blood Partial Pressure CO2 48 Arterial Blood Partial Pressure O2 68 Arterial Blood Oxygen Content 6.6 Arterial Blood Carboxyhemoglobin 1.7 Arterial Blood Methemoglobin 1.2 Blood Gas Hemoglobin 5.3 Oxygen Delivery Device VENT Blood Gas Ventilator Setting SEE COMMENT Blood Gas Inspired Oxygen 40 White Blood Count 14.3 Red Blood Count 2.49 Hemoglobin 7.2 Hematocrit 21.6 Mean Corpuscular Volume 86.8 Mean Corpuscular Hemoglobin 29.1 Mean Corpuscular Hemoglobin Concent 33.6 Red Cell Distribution Width 21.8 Platelet Count 89 Mean Platelet Volume 8.8 Neutrophils (%) (Auto) 86.9 Lymphocytes (%) (Auto) 6.9 Monocytes (%) (Auto) 4.9 Eosinophils (%) (Auto) 0.8 Basophils (%) (Auto) 0.5 Neutrophils # (Auto) 12.4 Lymphocytes # (Auto) 1.0 Monocytes # (Auto) 0.7 Eosinophils # (Auto) 0.1 Basophils # (Auto) 0.1 CBC Comment AUTO DIFF Differential Comment AUTO DIFF CONFIRMED Toxic Granulation 1+ Toxic Vacuolation PRESENT Platelet Estimate LOW Platelet Morphology Comment ENLARGED Total Protein 7.1 Albumin 1.4 Magnesium Level 3.1 Alkaline Phosphatase 320 Aspartate Amino Transf (AST/SGOT) 72 Alanine Aminotransferase (ALT/SGPT) 24 Total Bilirubin 1.7 Protein Corrected Calcium 7.0 Random Vancomycin Level 19.1 Test 10/07/17 05:20 Blood Gas Puncture Site RT RADIAL Blood Gas Patient Temperature 98.6 Blood Gas HCO3 19 Blood Gas Base Excess -7.4 Blood Gas Oxygen Saturation 98 Arterial Blood pH 7.22 Arterial Blood Partial Pressure CO2 48 Arterial Blood Partial Pressure O2 201 Arterial Blood Oxygen Content 13.5 Arterial Blood Carboxyhemoglobin 1.2 Arterial Blood Methemoglobin 0.5 Blood Gas Hemoglobin 9.5 Oxygen Delivery Device VENT Blood Gas Ventilator Setting SEE COMMENT Blood Gas Inspired Oxygen 50 Date/Time Source Procedure Growth Status 10/07/17 05:07 Blood Peripheral Aerobic Blood Culture Pending Received 10/07/17 05:07 Blood Peripheral Anaerobic Blood Culture Pending Received 10/06/17 15:50 Fluid Pleural Fluid Fungal Smear - Final NO FUNGAL ELEMENTS SEEN. Resulted 10/06/17 15:50 Fluid Pleural Fluid Fungal Culture Pending Resulted 10/04/17 03:49 Sputum Expectorated Sputum Gram Stain - Final Complete 10/04/17 03:49 Sputum Expectorated Sputum Sputum Culture - Final HEAVY GROWTH NORMAL RESPIRATORY RHIANNON Complete 10/03/17 21:30 Urine Random Urine Legionella Antigen - Final PRESUMPTIVE NEGATIVE FOR LEGIONELLA P... Complete 10/03/17 21:30 Urine Random Urine Streptococcus pneumoniae Antigen (M - Final PRESUMPTIVE NEGATIVE FOR STREPTOCOCCU... Complete (Venus Barrett) Result Diagram: 10/07/17 0507 10/07/17 0507 Imaging Last Impressions Chest X-Ray 10/07/17 0000 Signed Impressions: Service Date/Time: Saturday, October 07, 2017 03:49 - CONCLUSION: No definite pneumothorax with chest tube in place. Chadwick Diaz MD Chest Tube Insertion 10/06/17 0000 Signed Impressions: Service Date/Time: Friday, October 06, 2017 15:37 - CONCLUSION: Uncomplicated chest tube placement as above. Emerson Hui MD Chest CT 10/04/17 0000 Signed Impressions: Service Date/Time: Wednesday, October 04, 2017 21:18 - CONCLUSION: Abnormal diffuse airspace opacities throughout both lungs with bilateral lower lobe consolidation and patchy focal areas of consolidation the remainder of the lungs. There is also bilateral pleural effusions with probable loculation. Mat Alejandra MD Abdomen/Pelvis CT 10/04/17 0000 Signed Impressions: Service Date/Time: Wednesday, October 04, 2017 21:21 - CONCLUSION: 1. Severe hepatosplenomegaly without focal lesion. 2. Free fluid in the pelvis. 3. Abnormal lower lungs and pleural effusions. 4. Prominent varices about the splenic vein. Mat Alejandra MD (Venus Barrett) Assessment and Plan Problem List: (1) ZEUS (acute kidney injury) ICD Codes: N17.9 - Acute kidney failure, unspecified Plan: ZEUS most likely ATN from sepsis and low blood pressure Patient with over 10 kg weight gain. UOP over the past 24 hours at 800ml Significant anasarca Anemia with HGB of 7.2 Potassium level at 5.5 and protein corrected calcium at 7.0 Plan Continue to Monitor I+O Continue Bumex gtt and albumin every 12 hours Avoid nephrotoxins. Will monitor labs and urinary output (2) Sepsis ICD Codes: A41.9 - Sepsis, unspecified organism Status: Acute Plan: Antibiotics per ID (3) Endocarditis ICD Codes: I38 - Endocarditis, valve unspecified Status: Acute (Venus Barrett) Problem List: (1) ZEUS (acute kidney injury) ICD Codes: N17.9 - Acute kidney failure, unspecified Plan: ZEUS most likely ATN from sepsis and low blood pressure. Other differential will be ATN, Acute interstitial nephritis, and Post infectious GN,unlikely. Patient with over 10 kg weight gain. UOP over the past 24 hours at 800ml Significant anasarca Anemia with HGB of 7.2 Potassium level at 5.5 and protein corrected calcium at 7.0 Plan Continue to Monitor I+O Continue Bumex gtt and albumin every 12 hours Avoid nephrotoxins. Will monitor labs and urinary output. Patient seen and examined, agree with above. Continue Bumex infusion. Possible HD tomorrow if no improvement. (2) Sepsis ICD Codes: A41.9 - Sepsis, unspecified organism Status: Acute Plan: Antibiotics per ID (3) Endocarditis ICD Codes: I38 - Endocarditis, valve unspecified Status: Acute (Darek Tapia MD) Problem Qualifiers (1) Sepsis: Qualified Codes: A41.9 - Sepsis, unspecified organism (2) Endocarditis: Venus Barrett Oct 07, 2017 10:09 Darek Tapia MD Oct 07, 2017 17:42
--- NOTE | 2017-10-07 11:06 | HHI.CCPN ---
Subjective Remarks/Hospital Course 27-year-old male with remote history of IV drug abuse, states he last used heroin 2 months ago, presents for evaluation of 8 days of body aches, 7 days of diarrhea with development of subjective fever yesterday. Patient denies any nausea or vomiting. He denies any chest pain. States that he is short of breath and feels anxious. This has developed within the last 24 hours. Patient does have a cough with clear sputum. Denies any prior history of endocarditis. Denies any abdominal pain. Does report some left back pain, worse while lying flat. He is well reports generalized weakness. 10/04/17: He is critically ill, remains febrile up to 103, tachycardic diaphoretic. large tricuspid valve vegetation on bedside echo, formal echo pending. Infectious disease consulted, CT surgery consult ordered. D/W Dr. Macias and Dr. Charles. CARMEN/academic interventionist consult ordered. Hb 6.6 getting 2U PRBC 10/05: Remains critically ill intubated sedated. TE on yesterday TEF 40-45%. Large mobile vegetation noted on the tricuspid valve, may be 2 separate vegetations, measures overall 4cm x 1.7cm. Probable mobile density noted on the pulmonic valve. CT of the chest shows extensive septic emboli and consolidation , with loculated appearing effusion on the left base. Dr. Charles CT surgery recommends 4-6 weeks of IV antibiotics followed by repeat echo, considering surgery at that time if no improvement 10/06: Worsening CXR, with bibasilar worsening infiltrates and effusion. IR to place CT-guided left chest tube today for loculated effusion. Fluid overloaded approximately 8 kg. IV Lasix 40 mg x1. MSSA bacteremia persists 10/07: Remains intubated sedated remains critical severe volume overload with worsening renal function creatinine 3, weight up by at least [address] him on Bumex infusion and consult nephrology. Patient remains slightly oliguric 800 mL urine output in 24 hours. Chest x-ray showed bilateral infiltrates and worsening right effusion Objective Vital Signs Date Time Temp Pulse Resp B/P (MAP) Pulse Ox O2 Delivery O2 Flow Rate FiO2 10/07/17 08:09 99 50 10/07/17 08:00 98.0 116 17 100/56 (71) 10/04/17 07:42 Nasal Cannula 2.00 Intake and Output 10/07/17 10/07/17 10/08/17 08:00 16:00 00:00 Intake Total 1761 ml 72 ml Output Total 370 ml Balance 1391 ml 72 ml Result Diagram: 10/07/17 0507 10/07/17 0507 Other Results Laboratory Tests Test 10/07/17 00:00 10/07/17 05:20 Blood Gas Puncture Site RT RADIAL RT RADIAL Blood Gas Patient Temperature 98.6 98.6 Blood Gas HCO3 19 mmol/L (22-26) 19 mmol/L (22-26) Blood Gas Base Excess -7.7 mmol/L (-2-2) -7.4 mmol/L (-2-2) Blood Gas Oxygen Saturation 87 % (90-100) 98 % (90-100) Arterial Blood pH 7.21 (7.380-7.420) 7.22 (7.380-7.420) Arterial Blood Partial Pressure CO2 48 mmHg (38-42) 48 mmHg (38-42) Arterial Blood Partial Pressure O2 68 mmHG (61-120) 201 mmHG (61-120) Arterial Blood Oxygen Content 6.6 Vol % (12.0-20.0) 13.5 Vol % (12.0-20.0) Arterial Blood Carboxyhemoglobin 1.7 % (0-4) 1.2 % (0-4) Arterial Blood Methemoglobin 1.2 % (0-2) 0.5 % (0-2) Blood Gas Hemoglobin 5.3 G/DL (12.0-16.0) 9.5 G/DL (12.0-16.0) Oxygen Delivery Device VENT VENT Blood Gas Ventilator Setting SEE COMMENT SEE COMMENT Blood Gas Inspired Oxygen 40 % 50 % Objective Remarks GENERAL: Well-nourished, well-developed patient. Critically ill, intubated sedated SKIN: Warm and dry. Extensive tattoos limits skin exam HEAD: Normocephalic. EYES: No scleral icterus. No injection or drainage. ENT: Orotracheally intubated NECK: Supple, trachea midline. No JVD or lymphadenopathy. CARDIOVASCULAR: S1-S2 normal with systolic murmur at the left sternal border. Large TV vegetation on bedside echo RESPIRATORY: Air entry is equal bilaterally, coarse rhonchi and crackles. Moderate-sized right pleural effusion on bedside ultrasound GASTROINTESTINAL: Abdomen soft, non-tender, nondistended. MUSCULOSKELETAL: No cyanosis, or edema. Significant anasarca NEURO EXAM: The patient is intubated heavily sedated, Pupils are round, reactive to light. Moves extremities spontaneously and follows commands when sedation is lightened A/P Assessment and Plan Neuro IVDU: -Propofol Versed and fentanyl for vent synchrony and sedation --Watch closely for withdrawal Resp: Acute hypoxemic respiratory failure Extensive septic emboli, consolidation of the lung Loculated left effusion, moderat right effusion - Continue ventilator support, no vent weaning until respiratory status improved , - IR placed left chest tube 10/06 with more than 1 L exudative fluid out - May need right chest tube placement if effusion not clearing with Bumex infusion - Discussed with cardiothoracic surgery Dr. Charles, patient may need decortication - Broad-spectrum antibiotics per ID, see below - DuoNeb q6hr and PRN CVS: Large tricuspid valve vegetation, and pulmonic vegetation Severe sepsis Fluid overload - Bedside echo shows mild tricuspid regurgitation - Cardiology and CT surgery consult - CARMEN 10/04: EF 40-45%. Large mobile vegetation on tricuspid valve, may be 2 separate vegetations, measures overall 4cm x 1.7cm. - Probable mobile density noted on the pulmonic valve. - See ID section for ABX - Dr. Charles CT surgery recommends 4-6 weeks of antibiotics and repeat echo - Fluid up by >12 kg, started Bumex gtt GI: Hepatosplenomegaly Diarrhea - IV famotidine - Tube feeds with Jevity - Check C Diff, if diarrhea persist - Hepatitis C reactive : Acute kidney injury Dehydration on admission - Aggressive IV fluids resuscitation completed - Currently fluid overloaded with worsening bilateral effusion. Will start careful diuresis - Strict I's and O's - Monitor trend of creatinine - Electrolytes replacement per ICU protocol ID: Tricuspid and pulmonic valve endocarditis Septic emboli to the lung Severe sepsis MSSA bacteremia - Discussed with Dr. Charles CT surgery 10/05/17 - He recommends 4-6 weeks of IV antibiotics with repeat echo, consideration for surgery if Vegetations persists - Continue Oxacillin, and vancomycin for per ID Dr. Macias - F/U cultures - F/u HIV, Hepatitis panel. Hepatitis C reactive Endo: -Electrolyte replacement per protocol Heme: Anemia requiring transfusion Thrombocytopenia - s/p 2 units PRBC - Monitor CBC, Coags - Thrombocytopenia base most likely from sepsis and DIC DVT GI prophylaxis - TEDs SCDs - Avoiding chemical DVT prophylaxis due to blood loss anemia, start Heparin 5000 U sq q8 10/07 - Pepdustind Critical Care: The total critical care time was 40 minutes. Time to perform other separately billable procedures was not included in the critical care time. Patient remains very critical with multiorgan failure and severe septic shock. He has huge tricuspid valve and probably pulmonic valve vegetations. His prognosis appears guarded Jaki Barraza MD Oct 07, 2017 11:06
--- NOTE | 2017-10-07 11:29 | HHI.IDPN ---
Subjective Subjective Remarks is a 27 y/o CM with remote history of IV drug abuse, states he last used heroin 2 months ago, presents for evaluation of body aches, 7 days of diarrhea with development of subjective fever yesterday. Patient denies any nausea or vomiting. He denies any chest pain. This has developed within the last 24 hours. Patient does have a cough with clear sputum. Denies any prior history of endocarditis. Denies any abdominal pain. Does report some left back pain, worse while lying flat. He is well reports generalized weakness. Patient met criteria for sepsis on admission. Flu antigen negative. CXR with bilateral infiltrates. performed a bedside 2D ECHO and verbally reported a large ~4.5 cm vegetation on TV. CXR suspicious for septic emboli. Blood cultures drawn but it appears patient has received augmentin at some point and cultures may possibly be negative. At the time of my evaluation patient is in the ICU, appears in respiratory distress there is a plan for intubation and CARMEN today. UO ok. No diarrhea, no rash. Not on pressors. ID is consulted for evaluation and Mment of Severe Sepsis and Endocarditis. Overnight events reviewed. Persistent fevers overnight. No rash No diarrhea Remains on vent. Secretions moderate pale yellow. Had CT placed. Antibiotics Oxacillin IV Vanco IV Lines Line sites with no e.o infection Past Medical History Past Medical History Asthma Past Surgical History No surgical history per records. Allergies: Coded Allergies: erythromycin base (Verified Allergy, Severe, Nausea/Vomiting, 10/03/17) raspberry (Unverified Allergy, Mild, 10/03/17) Objective . Vital Signs Date Time Temp Pulse Resp B/P (MAP) Pulse Ox O2 Delivery O2 Flow Rate FiO2 10/07/17 11:16 100 40 10/07/17 08:09 99 50 10/07/17 08:00 50 10/07/17 08:00 98.0 116 17 100/56 (71) 100 10/07/17 08:00 116 10/07/17 06:00 122 10/07/17 04:00 100.0 123 16 94/53 (67) 99 10/07/17 04:00 123 10/07/17 04:00 40 10/07/17 03:34 99 50 10/07/17 02:00 122 10/07/17 01:40 122 84/49 10/07/17 00:37 100 40 10/07/17 00:00 123 10/07/17 00:00 40 10/07/17 00:00 100.8 123 15 95/47 (63) 100 10/06/17 22:00 134 10/06/17 20:00 103.1 127 15 96/51 (66) 99 10/06/17 20:00 40 10/06/17 20:00 127 10/06/17 19:38 99 40 10/06/17 18:00 126 10/06/17 16:36 98 40 10/06/17 16:00 99.8 126 23 92/52 (65) 99 10/06/17 16:00 126 10/06/17 16:00 40 10/06/17 14:45 100 100 10/06/17 14:00 122 10/06/17 12:00 99.8 122 16 101/52 (68) 100 10/06/17 12:00 122 10/06/17 12:00 40 10/06/17 11:30 100 40 10/07/17 10/07/17 10/08/17 15:00 23:00 07:00 Intake Total 72 ml Balance 72 ml IV Total 72 ml . Laboratory Tests Test 10/05/17 13:40 10/06/17 07:30 10/07/17 05:07 White Blood Count 13.0 TH/MM3 15.1 TH/MM3 14.3 TH/MM3 Red Blood Count 2.97 MIL/MM3 2.65 MIL/MM3 2.49 MIL/MM3 Hemoglobin 8.8 GM/DL 7.7 GM/DL 7.2 GM/DL Hematocrit 25.7 % 23.1 % 21.6 % Mean Corpuscular Volume 86.5 FL 87.3 FL 86.8 FL Mean Corpuscular Hemoglobin 29.6 PG 29.2 PG 29.1 PG Mean Corpuscular Hemoglobin Concent 34.2 % 33.4 % 33.6 % Red Cell Distribution Width 21.5 % 22.0 % 21.8 % Platelet Count 100 TH/MM3 102 TH/MM3 89 TH/MM3 Mean Platelet Volume 8.4 FL 8.9 FL 8.8 FL Neutrophils (%) (Auto) 85.0 % 85.3 % 86.9 % Lymphocytes (%) (Auto) 6.4 % 7.0 % 6.9 % Monocytes (%) (Auto) 7.2 % 6.4 % 4.9 % Eosinophils (%) (Auto) 0.9 % 0.9 % 0.8 % Basophils (%) (Auto) 0.5 % 0.4 % 0.5 % Neutrophils # (Auto) 11.0 TH/MM3 12.9 TH/MM3 12.4 TH/MM3 Lymphocytes # (Auto) 0.8 TH/MM3 1.1 TH/MM3 1.0 TH/MM3 Monocytes # (Auto) 0.9 TH/MM3 1.0 TH/MM3 0.7 TH/MM3 Eosinophils # (Auto) 0.1 TH/MM3 0.1 TH/MM3 0.1 TH/MM3 Basophils # (Auto) 0.1 TH/MM3 0.1 TH/MM3 0.1 TH/MM3 CBC Comment DIFF FINAL AUTO DIFF AUTO DIFF Differential Comment FINAL DIFF MANUAL AUTO DIFF CONFIRMED Differential Total Cells Counted 100 Neutrophils % (Manual) 78 % Band Neutrophils % 11 % Lymphocytes % 4 % Monocytes % 5 % Eosinophils % 1 % Neutrophils # (Manual) 13.6 TH/MM3 Metamyelocytes 1 % Toxic Granulation 2+ 1+ Dohle Bodies PRESENT Platelet Estimate LOW LOW Platelet Morphology Comment ENLARGED ENLARGED Toxic Vacuolation PRESENT Laboratory Tests Test 10/05/17 13:40 10/06/17 07:30 10/06/17 17:45 10/07/17 05:07 Blood Urea Nitrogen 26 MG/DL 37 MG/DL 44 MG/DL 45 MG/DL Creatinine 1.35 MG/DL 2.00 MG/DL 2.41 MG/DL 3.02 MG/DL Random Glucose 59 MG/DL 107 MG/DL 103 MG/DL 117 MG/DL Total Protein 7.0 GM/DL 6.6 GM/DL 7.1 GM/DL Albumin 1.4 GM/DL 1.1 GM/DL 1.4 GM/DL Calcium Level 7.5 MG/DL 7.5 MG/DL 7.6 MG/DL 7.0 MG/DL Alkaline Phosphatase 80 U/L 134 U/L 320 U/L Aspartate Amino Transf (AST/SGOT) 21 U/L 30 U/L 72 U/L Alanine Aminotransferase (ALT/SGPT) 12 U/L 9 U/L 24 U/L Total Bilirubin 1.6 MG/DL 2.0 MG/DL 1.7 MG/DL Sodium Level 140 MEQ/L 141 MEQ/L 143 MEQ/L 144 MEQ/L Potassium Level 5.1 MEQ/L 5.8 MEQ/L 6.0 MEQ/L 5.5 MEQ/L Chloride Level 111 MEQ/L 111 MEQ/L 113 MEQ/L 113 MEQ/L Carbon Dioxide Level 21.8 MEQ/L 19.4 MEQ/L 19.9 MEQ/L 21.6 MEQ/L Anion Gap 7 MEQ/L 11 MEQ/L 10 MEQ/L 9 MEQ/L Estimat Glomerular Filtration Rate 64 ML/MIN 41 ML/MIN 33 ML/MIN 25 ML/MIN C-Reactive Protein 27.70 MG/DL Magnesium Level 3.1 MG/DL 3.1 MG/DL Protein Corrected Calcium 7.0 MG/DL Microbiology Date/Time Source Procedure Growth Status 10/07/17 05:07 Blood Peripheral Aerobic Blood Culture Pending Received 10/07/17 05:07 Blood Peripheral Anaerobic Blood Culture Pending Received 10/07/17 05:01 Blood Peripheral Aerobic Blood Culture Pending Received 10/07/17 05:01 Blood Peripheral Anaerobic Blood Culture Pending Received 10/05/17 13:45 Blood Peripheral Aerobic Blood Culture - Preliminary Gram Positive Cocci Resulted 10/05/17 13:45 Blood Peripheral Anaerobic Blood Culture - Preliminary NO GROWTH IN 2 DAYS Resulted 10/05/17 13:40 Blood Peripheral Aerobic Blood Culture - Preliminary Gram Positive Cocci Resulted 10/05/17 13:40 Blood Peripheral Anaerobic Blood Culture - Preliminary NO GROWTH IN 2 DAYS Resulted 10/04/17 17:45 Blood Peripheral Aerobic Blood Culture - Final Staphylococcus Aureus Resulted 10/04/17 17:45 Blood Peripheral Anaerobic Blood Culture - Preliminary NO GROWTH IN 3 DAYS Resulted 10/04/17 17:40 Blood Peripheral Aerobic Blood Culture - Final Staphylococcus Aureus Resulted 10/04/17 17:40 Blood Peripheral Anaerobic Blood Culture - Preliminary NO GROWTH IN 3 DAYS Resulted 10/06/17 15:50 Fluid Pleural Fluid Fungal Smear - Final NO FUNGAL ELEMENTS SEEN. Resulted 10/06/17 15:50 Fluid Pleural Fluid Fungal Culture Pending Resulted 10/06/17 15:50 Fluid Pleural Fluid Acid Fast Stain Pending Received 10/06/17 15:50 Fluid Pleural Fluid Mycobacterial Culture Pending Received 10/06/17 15:50 Fluid Pleural Fluid Gram Stain - Final Resulted 10/06/17 15:50 Fluid Pleural Fluid Body Fluid Culture Pending Resulted Imaging Last Impressions Chest X-Ray 10/04/17 0000 Signed Impressions: Service Date/Time: Wednesday, October 04, 2017 16:11 - CONCLUSION: 1. ET tube in good position. 2. Significant increase in bilateral airspace opacities, now with consolidation in the lower lungs bilaterally. Mat Alejandra MD Chest CT 10/04/17 0000 Signed Impressions: Service Date/Time: Wednesday, October 04, 2017 21:18 - CONCLUSION: Abnormal diffuse airspace opacities throughout both lungs with bilateral lower lobe consolidation and patchy focal areas of consolidation the remainder of the lungs. There is also bilateral pleural effusions with probable loculation. Mat Alejandra MD Abdomen/Pelvis CT 10/04/17 0000 Signed Impressions: Service Date/Time: Wednesday, October 04, 2017 21:21 - CONCLUSION: 1. Severe hepatosplenomegaly without focal lesion. 2. Free fluid in the pelvis. 3. Abnormal lower lungs and pleural effusions. 4. Prominent varices about the splenic vein. Mat Alejandra MD Physical Exam GENERAL: This is a well-nourished, well-developed patient, in no apparent distress. SKIN: No rashes, ecchymoses or lesions. Cool and dry. Multiple tattoos. HEAD: Atraumatic. Normocephalic. No temporal or scalp tenderness. EYES: Pupils equal round and reactive. Extraocular motions intact. ENT: Intubated. NECK: Trachea midline. Supple, nontender, no meningeal signs. CARDIOVASCULAR: ? systolic murmur. RESPIRATORY: Decreased air entry bilaterally bases. GASTROINTESTINAL: Abdomen soft, non-tender, nondistended. MUSCULOSKELETAL: Extremities without clubbing, cyanosis, or edema. NEUROLOGICAL: Sedated, moves extremities. Psych cooperative IV line sites with no e.o infection. Assessment & Plan Remarks Severe Sepsis present on admission MSSA endocarditis. MSSA bacteremia persistent Bilateral pleural effusions: left side appears loculated possible empyema. TV and Pulmonic valve endocarditis Pneumonia: septic emboli, aspiration pneumonia. IVDA: heroin, cocaine and methamphetamine. Acute renal failure: Sepsis, meds,contrast. Recs: DC Vanco IV (target 15-20) Continue Oxacillin IV. Due to increase Cr cannot give Genta IV. Follow cultures Follow clinically d/w Lakia Bergeron MD Oct 07, 2017 11:29
[2017-10-07] MEDS: HEPARIN SODIUM - SQ 10,000 UNITS/ML VIAL SQ SCH ×2 (13:37→19:20)
[2017-10-07] MEDS: MIDAZOLAM 100 MG/100 ML INJ 100 ML IV PRN (15:00)
--- NOTE | 2017-10-07 15:15 | PD.PROCEDR ---
Central Line Procedure REASON FOR PROCEDURE Central venous access PROCEDURE PERFORMED Central line placement: right subclavian central line placement CONSENT Informed consent for procedure was obtained and time out performed. The risks and benefits of the procedure were discussed with family to include but limited to bleeding, clot formation, pneumothorax, infection, and even . ANESTHESIA Local injection of 1% Lidocaine DESCRIPTION OF THE PROCEDURE The patient was placed in supine, mild Trendelenburg position. The area was exposed and cleansed with ChloraPrep, times two. Large sterile drape was used to cover the patient, with the site exposed, under sterile conditions including cap, face mask, sterile gown, and sterile gloves. On single attempt, the introducer needle was inserted with negative pressure in syringe and venous flash was obtained. The guide wire was then advanced without any restriction and the needle was removed. The dilator was used without any complications. Using Seldinger technique the 20 CM 7F catheter was advanced over the guide wire to a depth of 17 centimeters. The guide wire was removed. All ports were aspirated with dark venous blood return and flushed easily with sterile saline. All ports were capped. Antibiotic disc was placed around central line at puncture site. The central line was secured to the skin with statlock. The area was bandaged with sterile see-through central line bandage. COMPLICATIONS: No apparent complications ESTIMATED BLOOD LOSS: Less than 2 cc. Jaki Barraza MD Oct 07, 2017 15:15
--- NOTE | 2017-10-07 16:31 | RADRPT ---
EXAM DATE/TIME: 10/07/2017 15:12 [facility] COMPARISON: CHEST SINGLE AP, October 06, 2017, 3:20. INDICATIONS : Post central line placement. MEDICAL HISTORY : None. SURGICAL HISTORY : None. ENCOUNTER: Initial ACUITY: 1 day PAIN SCORE: Non-responsive. LOCATION: Bilateral chest FINDINGS: A single portable frontal view of the chest shows interval placement of a left thoracostomy tube. The tip is near the apex. Bilateral pleural effusions and bilateral pulmonary infiltrates noted. No pneu mothorax. Tip of the endotracheal tube 4 cm proximal to sydni. Left subclavian central line. Nasogas tric tube courses off the inferior margin of the film. CONCLUSION: 1. Left thoracostomy tube placement without pneumothorax. 2. Left subclavian central line. 3. Unchanged bilateral pleural effusions and bilateral pulmonary infiltrates. Mat Barry Jr., MD on October 07, 2017 at 16:28 Board Certified Radiologist. This report was verified electronically.
[2017-10-07] MEDS ORDERED: BUMETANIDE INJ 2.5 MG/10 ML VIAL IV PUSH ONE (16:45)
[2017-10-07 19:24] LABS: ALBUMIN 1.6 GM/DL (3.4-5.0); BICARBONATE 22.5 MEQ/L (21.0-32.0); CREATININE 3.8 MG/DL (0.60-1.30); TOTAL BILIRUBIN ADULT 1.6 MG/DL (0.2-1.0); TOTAL PROTEIN 7.7 GM/DL (6.4-8.2)
[2017-10-07 19:42] LABS: CALCIUM 7.1 MG/DL (8.5-10.1); CALCIUM-PROTEIN CORRECTED 6.9 MG/DL (8.5-10.1)
[2017-10-07] MEDS ORDERED: CALCIUM GLUCONATE INJ 2 GM in SODIUM CHLORIDE 0.9% INJ 100 ML IV ONE (20:30)
[2017-10-07 21:10] LABS: SODIUM,RANDOM URINE 35 MEQ/L
[2017-10-07 21:52] LABS: OSMOLALITY,URINE 331 MOSM/KG (300-1300)
--- NOTE | 2017-10-07 22:30 | PD.CARD.PN ---
Subjective Subjective Remarks Patient was seen earlier today, late entry note No events overnight Weights up Objective Medications Current Medications Medications (Trade) Dose Ordered Sig/Willem Route Start Time Stop Time Status Last Admin (NS Flush) 2 ml UNSCH PRN IV FLUSH 10/03/17 21:15 10/05/17 21:09 (NS Flush) 2 ml BID IV FLUSH 10/04/17 09:00 10/07/17 19:21 (Tylenol) 650 mg Q6H PRN PO 10/03/17 21:15 10/04/17 11:44 (Morphine Inj) 2 mg Q2H PRN IV PUSH 10/03/17 21:15 10/04/17 12:54 (Pepcid Inj) 10 mg Q12HR IV PUSH 10/04/17 09:00 10/07/17 19:20 (Ativan Inj) 1 mg Q1H PRN IV PUSH 10/03/17 21:15 10/04/17 12:14 (Zofran Inj) 4 mg Q6H PRN IV PUSH 10/03/17 21:15 (Restoril) 15 mg HS PRN PO 10/03/17 21:15 (Duoneb Neb) 1 ampule Q2HR NEB PRN INH 10/03/17 21:15 Miscellaneous Information 1 Q361D XX 10/03/17 21:15 (Chlorhexidine 2% Cloth) 3 pack Taper DAILY@04 TOP 10/04/17 04:00 09/30/18 03:59 10/07/17 04:00 (Chlorhexidine 2% Cloth) 3 pack UNSCH PRN TOP 10/03/17 21:15 (Renita-Colace) 1 tab BID PO 10/04/17 09:00 10/07/17 19:20 (Milk Of Magnesia Liq) 30 ml Q12H PRN PO 10/03/17 21:15 (Senokot) 17.2 mg Q12H PRN PO 10/03/17 21:15 (Dulcolax Supp) 10 mg DAILY PRN RECTAL 10/03/17 21:15 (Lactulose Liq) 30 ml DAILY PRN PO 10/03/17 21:15 (Flovent Hfa 44 Mcg Inh) 2 puff BID INH 10/04/17 09:00 (Robaxin) 500 mg QID PO 10/04/17 09:00 10/07/17 19:20 Acetaminophen 100 ml @ 400 mls/hr Q6H PRN IV 10/04/17 12:00 10/06/17 22:10 (Peridex 0.12% Liq) 15 ml BID@08,20 MT 10/04/17 20:00 10/07/17 19:21 Propofol 100 ml @ 3 mls/hr TITRATE PRN IV 10/04/17 14:45 10/06/17 22:24 Midazolam HCl 100 ml @ 2 mls/hr TITRATE PRN IV 10/04/17 14:45 10/07/17 15:00 Fentanyl Citrate 250 ml @ 5 mls/hr TITRATE PRN IV 10/04/17 14:45 10/07/17 18:00 (Beneprotein Powder) 2 pack TID OG-TUBE 10/05/17 13:00 10/07/17 18:00 (Free Water) 200 ml Q6HR OG-TUBE 10/05/17 12:00 10/07/17 18:00 Oxacillin Sodium 2 gm/Sodium Chloride 100 ml @ 200 mls/hr Q4H IV 10/05/17 18:00 10/07/17 19:21 Vasopressin 40 units/Dextrose 100 ml @ 6 mls/hr [id number] IV 10/06/17 09:00 (Duoneb Neb) 1 ampule Q6HR NEB NEB 10/07/17 10:00 10/07/17 21:28 Bumetanide 100 ml @ 4 mls/hr Q24H IV 10/07/17 11:00 10/07/17 09:53 Albumin Human 100 ml @ 60 mls/hr Q12H IV 10/07/17 10:00 10/07/17 21:45 (Heparin Inj) 5,000 units Q8HR SQ 10/07/17 14:00 10/07/17 19:20 Vital Signs / I&O Vital Signs Date Time Temp Pulse Resp B/P (MAP) Pulse Ox O2 Delivery O2 Flow Rate FiO2 10/07/17 21:28 99 40 10/07/17 20:00 98.4 110 16 101/54 (70) 100 10/07/17 20:00 40 10/07/17 20:00 110 10/07/17 18:20 112 95/55 10/07/17 18:00 109 10/07/17 17:39 100 40 10/07/17 16:00 99.2 103 16 102/55 (71) 100 10/07/17 16:00 50 10/07/17 16:00 103 10/07/17 14:00 102 10/07/17 12:00 97.7 107 16 95/52 (66) 100 10/07/17 12:00 107 10/07/17 12:00 50 10/07/17 11:16 100 40 10/07/17 10:00 112 10/07/17 08:09 99 50 10/07/17 08:00 50 10/07/17 08:00 98.0 116 17 100/56 (71) 100 10/07/17 08:00 116 10/07/17 06:00 122 10/07/17 04:00 100.0 123 16 94/53 (67) 99 10/07/17 04:00 123 10/07/17 04:00 40 10/07/17 03:34 99 50 10/07/17 02:00 122 10/07/17 01:40 122 84/49 10/07/17 00:37 100 40 10/07/17 00:00 123 10/07/17 00:00 40 10/07/17 00:00 100.8 123 15 95/47 (63) 100 I/O 10/06/17 10/06/17 10/06/17 10/07/17 10/07/17 10/07/17 07:00 15:00 23:00 07:00 15:00 23:00 Intake Total 2042 ml 2590 ml 4540 ml 1761 ml 172 ml 642 ml Output Total 400 ml 1520 ml 370 ml 231 ml Balance 1642 ml 2590 ml 3020 ml 1391 ml 172 ml 411 ml IV Total 1200 ml 2590 ml 3921 ml 1200 ml 172 ml 413 ml Tube Feeding 442 ml 439 ml 561 ml 49 ml Tube Irrigant 180 ml 180 ml Other 400 ml Output Urine Total 400 ml 500 ml 300 ml 225 ml Stool Total 0 ml Chest Tube Drainage Total 1020 ml 70 ml 6 ml # Bowel Movements 0 2 Physical Exam GENERAL: Intubated and sedated SKIN: Warm and dry. HEAD: Atraumatic. Normocephalic. EYES: Pupils equal and round. No scleral icterus. No injection or drainage. ENT: No nasal bleeding or discharge. Mucous membranes pink and moist. NECK: Trachea midline. No JVD. CARDIOVASCULAR: Regular rate and rhythm. Mildly tachycardic RESPIRATORY: No accessory muscle use. Decreased breath sounds GASTROINTESTINAL: Abdomen soft, non-tender, nondistended. Hepatic and splenic margins not palpable. MUSCULOSKELETAL: Extremities without clubbing, cyanosis, or edema. No obvious deformities. NEUROLOGICAL: Intubated and sedated Laboratory Laboratory Tests Test 10/07/17 00:00 10/07/17 05:07 10/07/17 05:20 10/07/17 17:30 Blood Gas Puncture Site RT RADIAL RT RADIAL Blood Gas Patient Temperature 98.6 98.6 Blood Gas HCO3 19 mmol/L 19 mmol/L Blood Gas Base Excess -7.7 mmol/L -7.4 mmol/L Blood Gas Oxygen Saturation 87 % 98 % Arterial Blood pH 7.21 7.22 Arterial Blood Partial Pressure CO2 48 mmHg 48 mmHg Arterial Blood Partial Pressure O2 68 mmHG 201 mmHG Arterial Blood Oxygen Content 6.6 Vol % 13.5 Vol % Arterial Blood Carboxyhemoglobin 1.7 % 1.2 % Arterial Blood Methemoglobin 1.2 % 0.5 % Blood Gas Hemoglobin 5.3 G/DL 9.5 G/DL Oxygen Delivery Device VENT VENT Blood Gas Ventilator Setting SEE COMMENT SEE COMMENT Blood Gas Inspired Oxygen 40 % 50 % White Blood Count 14.3 TH/MM3 Red Blood Count 2.49 MIL/MM3 Hemoglobin 7.2 GM/DL Hematocrit 21.6 % Mean Corpuscular Volume 86.8 FL Mean Corpuscular Hemoglobin 29.1 PG Mean Corpuscular Hemoglobin Concent 33.6 % Red Cell Distribution Width 21.8 % Platelet Count 89 TH/MM3 Mean Platelet Volume 8.8 FL Neutrophils (%) (Auto) 86.9 % Lymphocytes (%) (Auto) 6.9 % Monocytes (%) (Auto) 4.9 % Eosinophils (%) (Auto) 0.8 % Basophils (%) (Auto) 0.5 % Neutrophils # (Auto) 12.4 TH/MM3 Lymphocytes # (Auto) 1.0 TH/MM3 Monocytes # (Auto) 0.7 TH/MM3 Eosinophils # (Auto) 0.1 TH/MM3 Basophils # (Auto) 0.1 TH/MM3 CBC Comment AUTO DIFF Differential Comment AUTO DIFF CONFIRMED Toxic Granulation 1+ Toxic Vacuolation PRESENT Platelet Estimate LOW Platelet Morphology Comment ENLARGED Blood Urea Nitrogen 45 MG/DL 54 MG/DL Creatinine 3.02 MG/DL 3.80 MG/DL Random Glucose 117 MG/DL 101 MG/DL Total Protein 7.1 GM/DL 7.7 GM/DL Albumin 1.4 GM/DL 1.6 GM/DL Calcium Level 7.0 MG/DL 7.1 MG/DL Magnesium Level 3.1 MG/DL Alkaline Phosphatase 320 U/L 300 U/L Aspartate Amino Transf (AST/SGOT) 72 U/L 127 U/L Alanine Aminotransferase (ALT/SGPT) 24 U/L 27 U/L Total Bilirubin 1.7 MG/DL 1.6 MG/DL Sodium Level 144 MEQ/L 144 MEQ/L Potassium Level 5.5 MEQ/L 5.5 MEQ/L Chloride Level 113 MEQ/L 113 MEQ/L Carbon Dioxide Level 21.6 MEQ/L 22.5 MEQ/L Anion Gap 9 MEQ/L 9 MEQ/L Estimat Glomerular Filtration Rate 25 ML/MIN 19 ML/MIN Protein Corrected Calcium 7.0 MG/DL 6.9 MG/DL Random Vancomycin Level 19.1 COMMENT Test 10/07/17 18:21 Urine Osmolality 331 MOSM/KG Urine Random Sodium 35 MEQ/L Imaging Last 24 hours Impressions Chest X-Ray 10/07/17 0000 Signed Impressions: Service Date/Time: Saturday, October 07, 2017 15:12 - CONCLUSION: 1. Left thoracostomy tube placement without pneumothorax. 2. Left subclavian central line. 3. Unchanged bilateral pleural effusions and bilateral pulmonary infiltrates. Mat Barry Jr., MD Chest X-Ray 10/07/17 0000 Signed Impressions: Service Date/Time: Saturday, October 07, 2017 03:49 - CONCLUSION: No definite pneumothorax with chest tube in place. Chadwick Diaz MD Assessment and Plan Problem List: (1) Sepsis ICD Codes: A41.9 - Sepsis, unspecified organism Status: Acute (2) Endocarditis ICD Codes: I38 - Endocarditis, valve unspecified Status: Acute (3) Tobacco abuse ICD Codes: Z72.0 - Tobacco use (4) IV drug abuse ICD Codes: F19.10 - Other psychoactive substance abuse, uncomplicated Assessment and Plan 1) Severe sepsis secondary to endocarditis Per critical care/ID Appears to have both a large tricuspid valve as well as a moderate pulmonic valve endocarditis Anti-biotics per ID CT surgery evaluation, con't anti-biotics and repeat echo in 4-6 weeks 2) Tobacco abuse 3) IV heroine abuse 4) VDRF 5) Pleural effusions Possible pigtail placed today for effusion 6) Agree with diuresis as possible Problem Qualifiers (1) Sepsis: Qualified Codes: A41.9 - Sepsis, unspecified organism (2) Endocarditis: Zen Roberts DO Oct 07, 2017 22:30
[2017-10-08] VITALS (20 sets, daily range): BP systolic 96–113; BP diastolic 50–58; PULSE 106–124; RESP 15–20; TEMP 99.1–103.1; O2SAT 96–100
[2017-10-08] MEDS: OXACILLIN INJ 2 GM in SODIUM CHLORIDE 0.9% INJ 100 ML IV SCH ×6 (03:18→21:22)
[2017-10-08] MEDS: RESP: ALBUTEROL 2.5 MG/IPRATROPIUM 0.5 MG NEB (SCH) NEB ×4 (04:00→20:44)
[2017-10-08] MEDS: CHLORHEXIDINE GLUCONATE 2 % 1 PACK (2 CLOTHS) TOP SCH (04:00)
--- NOTE | 2017-10-08 04:34 | RADRPT ---
EXAM DATE/TIME: 10/08/2017 02:51 [facility] COMPARISON: CHEST SINGLE AP, October 07, 2017, 15:12. INDICATIONS : Short of breath. MEDICAL HISTORY : None. SURGICAL HISTORY : None. ENCOUNTER: Subsequent ACUITY: 1 week PAIN SCORE: 0/10 LOCATION: Bilateral chest FINDINGS: Large bilateral effusions, right greater than left and consolidation right greater than left. Left-si ded chest tube. No evidence of pneumothorax. Endotracheal tube and enteric tube again noted. Cardiome marley. CONCLUSION: No significant change has occurred. Chadwick Diaz MD on October 08, 2017 at 4:32 Board Certified Radiologist. This report was verified electronically.
[2017-10-08] MEDS: HEPARIN SODIUM - SQ 10,000 UNITS/ML VIAL SQ SCH ×3 (04:54→21:22)
[2017-10-08] MEDS: PROPOFOL 1000 MG/100 ML INJ 100 ML IV PRN ×2 (04:55→10:51)
[2017-10-08] MEDS: fentaNYL DRIP 250 ML IV PRN ×2 (04:56→15:40)
[2017-10-08] MEDS: FREE WATER OG-TUBE SCH ×4 (04:57→17:34)
[2017-10-08 05:43] LABS: AUTOMATED NEUTROPHIL # 12.5 TH/MM3 (1.8-7.7); BASOPHIL # 0.1 TH/MM3 (0-0.2); BASOPHIL % 0.6 % (0.0-2.0); EOSINOPHIL # 0.2 TH/MM3 (0-0.4); EOSINOPHIL % 1.4 % (0.0-4.0); LYMPHOCYTE # 0.7 TH/MM3 (1.0-4.8); MEAN CELL VOLUME 85.8 FL (80.0-100.0); MEAN CORPUSCULAR HEMOGLOBIN 29.4 PG (27.0-34.0); MEAN CORPUSCULAR HGB CONC 34.3 % (32.0-36.0); MEAN PLATELET VOLUME 8.3 FL (7.0-11.0); MONOCYTE # 0.6 TH/MM3 (0-0.9); PLATELET COUNT 122 TH/MM3 (150-450); RED BLOOD COUNT 2.34 MIL/MM3 (4.50-5.90); RED CELL DISTRIBUTION WIDTH 21.8 % (11.6-17.2)
[2017-10-08 05:57] LABS: HEMOGLOBIN 6.9 GM/DL (13.0-17.0)
[2017-10-08 06:00] LABS: COMPLEMENT C4 21 MG/DL (10-40)
[2017-10-08 06:01] LABS: COMPLEMENT C3 88 MG/DL (90-180)
[2017-10-08 06:07] LABS: ALBUMIN 1.7 GM/DL (3.4-5.0); BICARBONATE 21.3 MEQ/L (21.0-32.0); CALCIUM 7.3 MG/DL (8.5-10.1); CREATININE 4.13 MG/DL (0.60-1.30); MAGNESIUM 3.3 MG/DL (1.5-2.5); TOTAL BILIRUBIN ADULT 1.5 MG/DL (0.2-1.0); TOTAL PROTEIN 7.8 GM/DL (6.4-8.2)
[2017-10-08] MEDS ORDERED: CALCIUM GLUCONATE INJ 2 GM in SODIUM CHLORIDE 0.9% INJ 100 ML IV ONE (07:00)
--- NOTE | 2017-10-08 07:14 | HHI.CCPN ---
Subjective Remarks/Hospital Course 27-year-old male with remote history of IV drug abuse, states he last used heroin 2 months ago, presents for evaluation of 8 days of body aches, 7 days of diarrhea with development of subjective fever yesterday. Patient denies any nausea or vomiting. He denies any chest pain. States that he is short of breath and feels anxious. This has developed within the last 24 hours. Patient does have a cough with clear sputum. Denies any prior history of endocarditis. Denies any abdominal pain. Does report some left back pain, worse while lying flat. He is well reports generalized weakness. 10/04/17: He is critically ill, remains febrile up to 103, tachycardic diaphoretic. large tricuspid valve vegetation on bedside echo, formal echo pending. Infectious disease consulted, CT surgery consult ordered. D/W Dr. Macias and Dr. Charles. CARMEN/flavor tank tender consult ordered. Hb 6.6 getting 2U PRBC 10/05: Remains critically ill intubated sedated. TE on yesterday TEF 40-45%. Large mobile vegetation noted on the tricuspid valve, may be 2 separate vegetations, measures overall 4cm x 1.7cm. Probable mobile density noted on the pulmonic valve. CT of the chest shows extensive septic emboli and consolidation , with loculated appearing effusion on the left base. Dr. Charles CT surgery recommends 4-6 weeks of IV antibiotics followed by repeat echo, considering surgery at that time if no improvement 10/06: Worsening CXR, with bibasilar worsening infiltrates and effusion. IR to place CT-guided left chest tube today for loculated effusion. Fluid overloaded approximately 8 kg. IV Lasix 40 mg x1. MSSA bacteremia persists 10/07: Remains intubated sedated remains critical severe volume overload with worsening renal function creatinine 3, weight up by at least [address] him on Bumex infusion and consult nephrology. Patient remains slightly oliguric 800 mL urine output in 24 hours. Chest x-ray showed bilateral infiltrates and worsening right effusion 10/08: Remains intubated heavily sedated oliguric. Continues to have positive fluid balance creatinine increased to 4.3. Hemoglobin 6.9. Currently on Bumex infusion with not adequate response. Persistently bacteremic. Bilateral infiltrates on chest x-ray with moderate right effusion Objective Vital Signs Date Time Temp Pulse Resp B/P (MAP) Pulse Ox O2 Delivery O2 Flow Rate FiO2 10/08/17 06:00 121 10/08/17 04:00 99.2 19 96/55 (69) 99 10/08/17 04:00 40 10/04/17 07:42 Nasal Cannula 2.00 Intake and Output 10/08/17 10/08/17 10/09/17 08:00 16:00 00:00 Intake Total 923 ml Output Total 550 ml Balance 373 ml Result Diagram: 10/08/17 0500 10/08/17 0500 Objective Remarks GENERAL: Well-nourished, well-developed patient. Critically ill, intubated sedated SKIN: Warm and dry. Extensive tattoos limits skin exam. Anasarca HEAD: Normocephalic. EYES: No scleral icterus. No injection or drainage. ENT: Orotracheally intubated NECK: Supple, trachea midline. No JVD or lymphadenopathy. CARDIOVASCULAR: S1-S2 normal with systolic murmur at the left sternal border. Large TV vegetation on bedside echo RESPIRATORY: Air entry is equal bilaterally, coarse rhonchi and crackles. Moderate-sized right pleural effusion on bedside ultrasound GASTROINTESTINAL: Abdomen soft, non-tender, nondistended. MUSCULOSKELETAL: No cyanosis. Significant anasarca NEURO EXAM: The patient is intubated heavily sedated, Pupils are round, reactive to light. Moves extremities spontaneously and follows commands when sedation is lightened A/P Assessment and Plan Neuro IVDU: - Propofol Versed and fentanyl for vent synchrony and sedation - Watch closely for withdrawal -Daily sedation medication Resp: Acute hypoxemic respiratory failure Extensive septic emboli, consolidation of the lung Loculated left effusion, moderat right effusion - Continue ventilator support, no vent weaning until respiratory status improved - IR placed left chest tube 10/06 with more than 1 L exudative fluid out - May need right chest tube placement if effusion not clearing with HD fluid removal - Discussed with cardiothoracic surgery Dr. Charles, patient may need decortication, if not adequately drained - Broad-spectrum antibiotics per ID, see below - DuoNeb q6hr and PRN CVS: Large tricuspid valve vegetation, and pulmonic vegetation Severe sepsis Fluid overload - Bedside echo shows mild tricuspid regurgitation - Cardiology and CT surgery consulted - CARMEN 10/04: EF 40-45%. Large mobile vegetation on tricuspid valve, may be 2 separate vegetations, measures overall 4cm x 1.7cm. - Probable mobile density noted on the pulmonic valve. - See ID section for ABX - Dr. Charles CT surgery recommends 4-6 weeks of antibiotics and repeat echo - Fluid up by >12 kg, started Bumex gtt-inadequate response to start hemodialysis today GI: Hepatosplenomegaly Diarrhea - IV famotidine - Tube feeds with Jevity - Check C Diff, if diarrhea persist - Hepatitis C reactive : Acute kidney failure with fluid overload Dehydration on admission - Currently fluid overloaded with worsening bilateral effusion. Inadequate response to Bumex infusion start hemodialysis today - Strict I's and O's, Monitor trend of creatinine - Electrolytes replacement per ICU protocol ID: Tricuspid and pulmonic valve endocarditis Septic emboli to the lung Severe sepsis MSSA bacteremia - Discussed with Dr. Charles CT surgery 10/05/17 - He recommends 4-6 weeks of IV antibiotics with repeat echo, consideration for surgery if Vegetations persists - Continue Oxacillin per ID Dr. Macias - F/U cultures - F/u HIV, Hepatitis panel. Hepatitis C reactive Endo: -Electrolyte replacement per protocol Heme: Anemia requiring transfusion Thrombocytopenia - s/p 2 units PRBC. Give 1 unit PRBC today ? Hemolysis. Check LDH and haptoglobin - Monitor CBC, Coags - Thrombocytopenia base most likely from sepsis and DIC DVT GI prophylaxis - TEDs SCDs - Avoiding chemical DVT prophylaxis due to blood loss anemia, started Heparin 5000 U sq q8 10/07, will hold again due to blood loss - Pepcid Critical Care: The total critical care time was 40 minutes. Time to perform other separately billable procedures was not included in the critical care time. Patient remains very critical with multiorgan failure and severe septic shock. He has huge tricuspid valve and probably pulmonic valve vegetations. His prognosis appears guarded. Renal failure worsening hemodialysis to be started today, also transfuse for anemia Jaki Barraza MD Oct 08, 2017 07:13
[2017-10-08] MEDS: DOCUSATE SODIUM 50 MG/SENNA 8.6 MG TAB PO SCH ×2 (08:33→21:21)
[2017-10-08] MEDS: METHOCARBAMOL 500 MG TAB PO SCH ×4 (08:33→21:21)
[2017-10-08] MEDS: FAMOTIDINE 20 MG/2 ML VIAL IV PUSH SCH ×2 (08:34→21:22)
[2017-10-08] MEDS: ACETAMINOPHEN 1000 MG/100 ML 100 ML IV PRN ×2 (08:35→21:18)
[2017-10-08] MEDS: SODIUM CHLORIDE 0.9% FLUSH 10 ML FLUSH IV FLUSH SCH ×2 (08:35→21:17)
--- NOTE | 2017-10-08 08:35 | EKG ---
Date Performed: 10/06/2017 Time Performed: 18:53:14 PTAGE: 27 years EKG: Likely sinus tachycardia Anteroseptal T wave changes are nonspecific Compared to previous t racing heart rate is slower Borderline ECG PREVIOUS TRACING : 10/03/2017 17.26 DOCTOR: Julio C Martínez Interpretating Date/Time 10/08/2017 08:33:08
[2017-10-08] MEDS: ALBUMIN 25% INJ 100 ML IV SCH ×2 (08:36→21:18)
[2017-10-08] MEDS: BENEPROTEIN POWDER 1 PACK OG-TUBE SCH ×3 (08:41→17:31)
[2017-10-08] MEDS: FLUTICASONE PROPIONATE 44 MCG/ACT 10.6 GM INHALER INH SCH ×2 (08:45→21:00)
[2017-10-08] MEDS: CHLORHEXIDINE 0.12% (ORAL KIT) 15 ML CUP MT SCH ×2 (08:45→21:17)
[2017-10-08] MEDS: BUMETANIDE INJ 100 ML IV SCH (08:52)
[2017-10-08] MEDS: VASOPRESSIN INJ 40 UNITS in DEXTROSE 5% IN WATER 100ML INJ 98 ML IV SCH ×2 (08:53)
--- NOTE | 2017-10-08 09:42 | HHI.IDPN ---
Subjective Subjective Remarks is a 27 y/o CM with remote history of IV drug abuse, states he last used heroin 2 months ago, presents for evaluation of body aches, 7 days of diarrhea with development of subjective fever yesterday. Patient denies any nausea or vomiting. He denies any chest pain. This has developed within the last 24 hours. Patient does have a cough with clear sputum. Denies any prior history of endocarditis. Denies any abdominal pain. Does report some left back pain, worse while lying flat. He is well reports generalized weakness. Patient met criteria for sepsis on admission. Flu antigen negative. CXR with bilateral infiltrates. performed a bedside 2D ECHO and verbally reported a large ~4.5 cm vegetation on TV. CXR suspicious for septic emboli. Blood cultures drawn but it appears patient has received augmentin at some point and cultures may possibly be negative. At the time of my evaluation patient is in the ICU, appears in respiratory distress there is a plan for intubation and CARMEN today. UO ok. No diarrhea, no rash. Not on pressors. ID is consulted for evaluation and Mment of Severe Sepsis and Endocarditis. Overnight events reviewed. No fevers No rash No diarrhea UO low. Vascath planned for today. Remains on vent. FiO2 40%, PEEP 5. Secretions moderate pale yellow. Had CT placed. Antibiotics Oxacillin IV Lines Line sites with no e.o infection Past Medical History Past Medical History Asthma Past Surgical History No surgical history per records. Allergies: Coded Allergies: erythromycin base (Verified Allergy, Severe, Nausea/Vomiting, 10/03/17) raspberry (Unverified Allergy, Mild, 10/03/17) Objective . Vital Signs Date Time Temp Pulse Resp B/P (MAP) Pulse Ox O2 Delivery O2 Flow Rate FiO2 10/08/17 08:23 99 40 10/08/17 06:00 121 10/08/17 04:00 99.2 113 19 96/55 (69) 99 10/08/17 04:00 99 40 10/08/17 04:00 112 10/08/17 04:00 40 10/08/17 02:00 113 10/08/17 01:15 99 40 10/08/17 00:00 99.1 111 17 102/50 (67) 99 10/08/17 00:00 111 10/08/17 00:00 40 10/07/17 22:00 112 10/07/17 21:28 99 40 10/07/17 20:00 98.4 110 16 101/54 (70) 100 10/07/17 20:00 40 10/07/17 20:00 110 10/07/17 18:20 112 95/55 10/07/17 18:00 109 10/07/17 17:39 100 40 10/07/17 16:00 99.2 103 16 102/55 (71) 100 10/07/17 16:00 50 10/07/17 16:00 103 10/07/17 14:00 102 10/07/17 12:00 97.7 107 16 95/52 (66) 100 10/07/17 12:00 107 10/07/17 12:00 50 10/07/17 11:16 100 40 10/07/17 10:00 112 . Laboratory Tests Test 10/07/17 05:07 10/08/17 05:00 White Blood Count 14.3 TH/MM3 14.0 TH/MM3 Red Blood Count 2.49 MIL/MM3 2.34 MIL/MM3 Hemoglobin 7.2 GM/DL 6.9 GM/DL Hematocrit 21.6 % 20.0 % Mean Corpuscular Volume 86.8 FL 85.8 FL Mean Corpuscular Hemoglobin 29.1 PG 29.4 PG Mean Corpuscular Hemoglobin Concent 33.6 % 34.3 % Red Cell Distribution Width 21.8 % 21.8 % Platelet Count 89 TH/MM3 122 TH/MM3 Mean Platelet Volume 8.8 FL 8.3 FL Neutrophils (%) (Auto) 86.9 % 89.0 % Lymphocytes (%) (Auto) 6.9 % 5.0 % Monocytes (%) (Auto) 4.9 % 4.0 % Eosinophils (%) (Auto) 0.8 % 1.4 % Basophils (%) (Auto) 0.5 % 0.6 % Neutrophils # (Auto) 12.4 TH/MM3 12.5 TH/MM3 Lymphocytes # (Auto) 1.0 TH/MM3 0.7 TH/MM3 Monocytes # (Auto) 0.7 TH/MM3 0.6 TH/MM3 Eosinophils # (Auto) 0.1 TH/MM3 0.2 TH/MM3 Basophils # (Auto) 0.1 TH/MM3 0.1 TH/MM3 CBC Comment AUTO DIFF DIFF FINAL Differential Comment AUTO DIFF CONFIRMED Toxic Granulation 1+ Toxic Vacuolation PRESENT Platelet Estimate LOW Platelet Morphology Comment ENLARGED Laboratory Tests Test 10/06/17 17:45 10/07/17 05:07 10/07/17 17:30 10/08/17 05:00 Blood Urea Nitrogen 44 MG/DL 45 MG/DL 54 MG/DL 56 MG/DL Creatinine 2.41 MG/DL 3.02 MG/DL 3.80 MG/DL 4.13 MG/DL Random Glucose 103 MG/DL 117 MG/DL 101 MG/DL 113 MG/DL Calcium Level 7.6 MG/DL 7.0 MG/DL 7.1 MG/DL 7.3 MG/DL Sodium Level 143 MEQ/L 144 MEQ/L 144 MEQ/L 145 MEQ/L Potassium Level 6.0 MEQ/L 5.5 MEQ/L 5.5 MEQ/L 5.1 MEQ/L Chloride Level 113 MEQ/L 113 MEQ/L 113 MEQ/L 113 MEQ/L Carbon Dioxide Level 19.9 MEQ/L 21.6 MEQ/L 22.5 MEQ/L 21.3 MEQ/L Anion Gap 10 MEQ/L 9 MEQ/L 9 MEQ/L 11 MEQ/L Estimat Glomerular Filtration Rate 33 ML/MIN 25 ML/MIN 19 ML/MIN 18 ML/MIN Total Protein 7.1 GM/DL 7.7 GM/DL 7.8 GM/DL Albumin 1.4 GM/DL 1.6 GM/DL 1.7 GM/DL Magnesium Level 3.1 MG/DL 3.3 MG/DL Alkaline Phosphatase 320 U/L 300 U/L 327 U/L Aspartate Amino Transf (AST/SGOT) 72 U/L 127 U/L 137 U/L Alanine Aminotransferase (ALT/SGPT) 24 U/L 27 U/L 33 U/L Total Bilirubin 1.7 MG/DL 1.6 MG/DL 1.5 MG/DL Protein Corrected Calcium 7.0 MG/DL 6.9 MG/DL 7.0 MG/DL Microbiology Date/Time Source Procedure Growth Status 10/07/17 05:07 Blood Peripheral Aerobic Blood Culture - Preliminary Gram Positive Cocci Resulted 10/07/17 05:07 Blood Peripheral Anaerobic Blood Culture Pending Resulted 10/07/17 05:01 Blood Peripheral Aerobic Blood Culture - Preliminary Gram Positive Cocci Resulted 10/07/17 05:01 Blood Peripheral Anaerobic Blood Culture Pending Resulted 10/05/17 13:45 Blood Peripheral Aerobic Blood Culture - Final Staphylococcus Aureus Resulted 10/05/17 13:45 Blood Peripheral Anaerobic Blood Culture - Preliminary NO GROWTH IN 2 DAYS Resulted 10/05/17 13:40 Blood Peripheral Aerobic Blood Culture - Final Staphylococcus Aureus Resulted 10/05/17 13:40 Blood Peripheral Anaerobic Blood Culture - Preliminary NO GROWTH IN 2 DAYS Resulted 10/06/17 15:50 Fluid Pleural Fluid Fungal Smear - Final NO FUNGAL ELEMENTS SEEN. Resulted 10/06/17 15:50 Fluid Pleural Fluid Fungal Culture Pending Resulted 10/06/17 15:50 Fluid Pleural Fluid Acid Fast Stain Pending Received 10/06/17 15:50 Fluid Pleural Fluid Mycobacterial Culture Pending Received 10/06/17 15:50 Fluid Pleural Fluid Gram Stain - Final Resulted 10/06/17 15:50 Fluid Pleural Fluid Body Fluid Culture - Preliminary NO GROWTH IN 48 HOURS. Resulted Imaging Last Impressions Chest X-Ray 10/04/17 0000 Signed Impressions: Service Date/Time: Wednesday, October 04, 2017 16:11 - CONCLUSION: 1. ET tube in good position. 2. Significant increase in bilateral airspace opacities, now with consolidation in the lower lungs bilaterally. Mat Alejandra MD Chest CT 10/04/17 0000 Signed Impressions: Service Date/Time: Wednesday, October 04, 2017 21:18 - CONCLUSION: Abnormal diffuse airspace opacities throughout both lungs with bilateral lower lobe consolidation and patchy focal areas of consolidation the remainder of the lungs. There is also bilateral pleural effusions with probable loculation. Mat Alejandra MD Abdomen/Pelvis CT 10/04/17 0000 Signed Impressions: Service Date/Time: Wednesday, October 04, 2017 21:21 - CONCLUSION: 1. Severe hepatosplenomegaly without focal lesion. 2. Free fluid in the pelvis. 3. Abnormal lower lungs and pleural effusions. 4. Prominent varices about the splenic vein. Mat Alejandra MD Physical Exam GENERAL: This is a well-nourished, well-developed patient, in no apparent distress. SKIN: No rashes, ecchymoses or lesions. Cool and dry. Multiple tattoos. HEAD: Atraumatic. Normocephalic. No temporal or scalp tenderness. EYES: Pupils equal round and reactive. Extraocular motions intact. ENT: Intubated. NECK: Trachea midline. Supple, nontender, no meningeal signs. CARDIOVASCULAR: ? systolic murmur. RESPIRATORY: Decreased air entry bilaterally bases. GASTROINTESTINAL: Abdomen soft, non-tender, nondistended. MUSCULOSKELETAL: Extremities without clubbing, cyanosis, or edema. NEUROLOGICAL: Sedated, moves extremities. Psych cooperative IV line sites with no e.o infection. Assessment & Plan Remarks Severe Sepsis present on admission MSSA endocarditis. MSSA bacteremia persistent Bilateral pleural effusions: left side appears loculated possible empyema. TV and Pulmonic valve endocarditis Pneumonia: septic emboli, aspiration pneumonia. IVDA: heroin, cocaine and methamphetamine. Acute renal failure: Sepsis, meds,contrast. Recs: Continue Oxacillin IV. Continue Rifampin oral. Follow cultures Follow clinically d/w Lakia Colby MD Oct 08, 2017 09:42
[2017-10-08] MEDS ORDERED: MIDAZOLAM HCL 5 MG/ML VIAL (1 ML) ONE (10:00)
--- NOTE | 2017-10-08 10:26 | PD.PROCEDR ---
Central Line Procedure REASON FOR PROCEDURE Central venous access PROCEDURE PERFORMED Central line placement: RIJ Vascath US guided CONSENT Informed consent for procedure was obtained and time out performed. The risks and benefits of the procedure were discussed to include but limited to bleeding , clot formation, infection, and even . ANESTHESIA Local injection of 1% Lidocaine DESCRIPTION OF THE PROCEDURE The patient was placed in supine, mild Trendelenburg position. The area was exposed and cleansed with ChloraPrep, times two. Large sterile drape was used to cover the patient, with the site exposed, under sterile conditions including cap, face mask, sterile gown, and sterile gloves. On single attempt, the introducer needle was inserted with negative pressure in syringe and venous flash was obtained. The guide wire was then advanced without any restriction and the needle was removed. The dilator was used without any complications. Using Seldinger technique the RIJ double lumen 14F Vascath was advanced over the guide wire to a depth of 17 centimeters. The guide wire was removed. All ports were aspirated with dark venous blood return and flushed easily with sterile saline. All ports were capped. Antibiotic disc was placed around central line at puncture site. The central line was secured to the skin with two interrupted 2.0 silk sutures. The area was bandaged with sterile see- through central line bandage. RADIOLOGICAL DATA Ultrasound guidance was used to locate, RIJ. Doppler/color flow was used to confirm venous flow. COMPLICATIONS: No apparent complications ESTIMATED BLOOD LOSS: Less than 1 cc. Jaki Barraza MD Oct 08, 2017 10:26
[2017-10-08] MEDS ORDERED: MIDAZOLAM HCL 5 MG/ML VIAL (1 ML) IV ONE (10:39)
[2017-10-08] MEDS ORDERED: HEPARIN SODIUM - IV 10,000 UNITS/10 ML VIAL IV FLUSH PRN (10:45)
[2017-10-08] MEDS ORDERED: diphenhydrAMINE HCL 25 MG CAP PO PRN (11:15)
[2017-10-08] MEDS ORDERED: SODIUM CHLOR 0.9% 1000 ML INJ 1,000 ML OTHER PRN (11:15)
[2017-10-08] MEDS ORDERED: ACETAMINOPHEN 325 MG TAB PO PRN (11:15)
--- NOTE | 2017-10-08 11:19 | RADRPT ---
EXAM DATE/TIME: 10/08/2017 10:44 [facility] COMPARISON: CHEST SINGLE AP, October 08, 2017, 2:51. INDICATIONS : Vascath placement. MEDICAL HISTORY : None. SURGICAL HISTORY : None. ENCOUNTER: Subsequent ACUITY: 1 week PAIN SCORE: Non-responsive. LOCATION: Bilateral chest FINDINGS: Vas-Cath entering from the right IJ approach. Nasogastric tube is called to GE junction. Smallbore chest tube in place on the left. The heart is enlarged. Moderate interstitial edema is present. CONCLUSION: Vas-Cath in good position no pneumothorax Moderate interstitial edema and bibasilar parenchymal changes. Rahul Yarbrough MD FACR on October 08, 2017 at 11:16 Board Certified Radiologist. This report was verified electronically.
[2017-10-08] MEDS ORDERED: NITROGLYCERIN 0.4 MG SL 25 TABS/BTL SL PRN (11:30)
[2017-10-08] MEDS ORDERED: GELATIN 12 MM/7 MM FOAM TOP PRN (11:30)
[2017-10-08] MEDS ORDERED: cloNIDine HCL 0.1 MG TAB PO PRN (11:30)
[2017-10-08 12:02] LABS: AMYLASE BODY FLUID 19 U/L; AMYLASE BODY FLUID TYPE PLEURAL
--- NOTE | 2017-10-08 14:23 | PD.CARD.PN ---
Subjective Subjective Remarks No events overnight Started on Bumex drip Vascath placed Objective Medications Current Medications Medications (Trade) Dose Ordered Sig/Willem Route Start Time Stop Time Status Last Admin (NS Flush) 2 ml UNSCH PRN IV FLUSH 10/03/17 21:15 10/05/17 21:09 (NS Flush) 2 ml BID IV FLUSH 10/04/17 09:00 10/08/17 08:35 (Tylenol) 650 mg Q6H PRN PO 10/03/17 21:15 10/04/17 11:44 (Morphine Inj) 2 mg Q2H PRN IV PUSH 10/03/17 21:15 10/04/17 12:54 (Pepcid Inj) 10 mg Q12HR IV PUSH 10/04/17 09:00 10/08/17 08:34 (Ativan Inj) 1 mg Q1H PRN IV PUSH 10/03/17 21:15 10/04/17 12:14 (Zofran Inj) 4 mg Q6H PRN IV PUSH 10/03/17 21:15 (Restoril) 15 mg HS PRN PO 10/03/17 21:15 (Duoneb Neb) 1 ampule Q2HR NEB PRN INH 10/03/17 21:15 Miscellaneous Information 1 Q361D XX 10/03/17 21:15 (Chlorhexidine 2% Cloth) 3 pack Taper DAILY@04 TOP 10/04/17 04:00 09/30/18 03:59 10/08/17 04:00 (Chlorhexidine 2% Cloth) 3 pack UNSCH PRN TOP 10/03/17 21:15 (Renita-Colace) 1 tab BID PO 10/04/17 09:00 10/08/17 08:33 (Milk Of Magnesia Liq) 30 ml Q12H PRN PO 10/03/17 21:15 (Senokot) 17.2 mg Q12H PRN PO 10/03/17 21:15 (Dulcolax Supp) 10 mg DAILY PRN RECTAL 10/03/17 21:15 (Lactulose Liq) 30 ml DAILY PRN PO 10/03/17 21:15 (Flovent Hfa 44 Mcg Inh) 2 puff BID INH 10/04/17 09:00 (Robaxin) 500 mg QID PO 10/04/17 09:00 10/08/17 08:33 Acetaminophen 100 ml @ 400 mls/hr Q6H PRN IV 10/04/17 12:00 10/08/17 08:35 (Peridex 0.12% Liq) 15 ml BID@08,20 MT 10/04/17 20:00 10/08/17 08:45 Propofol 100 ml @ 3 mls/hr TITRATE PRN IV 10/04/17 14:45 10/08/17 10:51 Midazolam HCl 100 ml @ 2 mls/hr TITRATE PRN IV 10/04/17 14:45 10/07/17 15:00 Fentanyl Citrate 250 ml @ 5 mls/hr TITRATE PRN IV 10/04/17 14:45 10/08/17 04:56 (Beneprotein Powder) 2 pack TID OG-TUBE 10/05/17 13:00 10/08/17 08:41 (Free Water) 200 ml Q6HR OG-TUBE 10/05/17 12:00 10/08/17 12:00 Oxacillin Sodium 2 gm/Sodium Chloride 100 ml @ 200 mls/hr Q4H IV 10/05/17 18:00 10/08/17 12:03 Vasopressin 40 units/Dextrose 100 ml @ 6 mls/hr [id number] IV 10/06/17 09:00 (Duoneb Neb) 1 ampule Q6HR NEB NEB 10/07/17 10:00 10/08/17 08:23 Bumetanide 100 ml @ 4 mls/hr Q24H IV 10/07/17 11:00 10/08/17 08:52 Albumin Human 100 ml @ 60 mls/hr Q12H IV 10/07/17 10:00 10/08/17 08:36 (Heparin Inj) 5,000 units Q8HR SQ 10/07/17 14:00 10/08/17 04:54 (Rifampin) 300 mg Q12HR PO 10/08/17 11:30 Sodium Chloride 1,000 ml @ 0 mls/hr Q0M PRN OTHER 10/08/17 10:33 (Heparin Inj) 8,000 units UNSCH PRN IV FLUSH 10/08/17 10:45 Sodium Chloride 1,000 ml @ 200 mls/hr Q5H PRN IV 10/08/17 11:15 Sodium Chloride 1,000 ml @ 0 mls/hr Q0M PRN OTHER 10/08/17 11:15 (Mannitol Inj) 12.5 gm UNSCH PRN IV 10/08/17 11:15 Albumin Human 100 ml @ 60 mls/hr UNSCH PRN IV 10/08/17 11:30 (NS Flush) 5 ml UNSCH PRN IV FLUSH 10/08/17 11:15 (Heparin Inj) UNSCH PRN .XX 10/08/17 11:15 (Gentamicin Inj) 20 mg UNSCH PRN OTHER 10/08/17 11:15 (Zofran Inj) 4 mg UNSCH PRN IV PUSH 10/08/17 11:15 (Tylenol) 650 mg UNSCH PRN PO 10/08/17 11:15 (Benadryl) 25 mg UNSCH PRN PO 10/08/17 11:15 (Nitrostat Sl) 0.4 mg UNSCH PRN SL 10/08/17 11:30 (Catapres) 0.1 mg UNSCH PRN PO 10/08/17 11:30 (Epogen Inj) 10,000 units UNSCH PRN IV PUSH 10/08/17 11:30 (Gelfoam 12 Mm/7 Mm Top) 1 foam UNSCH PRN TOP 10/08/17 11:30 Vital Signs / I&O Vital Signs Date Time Temp Pulse Resp B/P (MAP) Pulse Ox O2 Delivery O2 Flow Rate FiO2 10/08/17 13:15 103.1 123 18 113/54 97 10/08/17 12:13 98 40 10/08/17 08:23 99 40 10/08/17 06:00 121 10/08/17 04:00 99.2 113 19 96/55 (69) 99 10/08/17 04:00 99 40 10/08/17 04:00 112 10/08/17 04:00 40 10/08/17 02:00 113 10/08/17 01:15 99 40 10/08/17 00:00 99.1 111 17 102/50 (67) 99 10/08/17 00:00 111 10/08/17 00:00 40 10/07/17 22:00 112 10/07/17 21:28 99 40 10/07/17 20:00 98.4 110 16 101/54 (70) 100 10/07/17 20:00 40 10/07/17 20:00 110 10/07/17 18:20 112 95/55 10/07/17 18:00 109 10/07/17 17:39 100 40 10/07/17 16:00 99.2 103 16 102/55 (71) 100 10/07/17 16:00 50 10/07/17 16:00 103 I/O 10/07/17 10/07/17 10/07/17 10/08/17 10/08/17 10/08/17 06:59 14:59 22:59 06:59 14:59 22:59 Intake Total 1661 ml 272 ml 642 ml 923 ml 10 ml Output Total 370 ml 231 ml 550 ml Balance 1291 ml 272 ml 411 ml 373 ml 10 ml IV Total 1100 ml 272 ml 413 ml Tube Feeding 561 ml 49 ml 573 ml Blood Product IV Normal Saline Flush 10 ml Tube Irrigant 180 ml Other 350 ml Output Urine Total 300 ml 225 ml 550 ml Chest Tube Drainage Total 70 ml 6 ml 0 ml # Bowel Movements 2 1 Physical Exam GENERAL: Intubated and sedated SKIN: Warm and dry. HEAD: Atraumatic. Normocephalic. EYES: Pupils equal and round. No scleral icterus. No injection or drainage. ENT: No nasal bleeding or discharge. Mucous membranes pink and moist. NECK: Trachea midline. No JVD. CARDIOVASCULAR: Regular rate and rhythm. Mildly tachycardic RESPIRATORY: No accessory muscle use. Decreased breath sounds GASTROINTESTINAL: Abdomen soft, non-tender, nondistended. Hepatic and splenic margins not palpable. MUSCULOSKELETAL: Extremities without clubbing, cyanosis, or edema. No obvious deformities. NEUROLOGICAL: Intubated and sedated Laboratory Laboratory Tests Test 10/07/17 17:30 10/07/17 18:21 10/07/17 22:00 10/08/17 05:00 Blood Urea Nitrogen 54 MG/DL 56 MG/DL Creatinine 3.80 MG/DL 4.13 MG/DL Random Glucose 101 MG/DL 113 MG/DL Total Protein 7.7 GM/DL 7.8 GM/DL Albumin 1.6 GM/DL 1.7 GM/DL Calcium Level 7.1 MG/DL 7.3 MG/DL Alkaline Phosphatase 300 U/L 327 U/L Aspartate Amino Transf (AST/SGOT) 127 U/L 137 U/L Alanine Aminotransferase (ALT/SGPT) 27 U/L 33 U/L Total Bilirubin 1.6 MG/DL 1.5 MG/DL Sodium Level 144 MEQ/L 145 MEQ/L Potassium Level 5.5 MEQ/L 5.1 MEQ/L Chloride Level 113 MEQ/L 113 MEQ/L Carbon Dioxide Level 22.5 MEQ/L 21.3 MEQ/L Anion Gap 9 MEQ/L 11 MEQ/L Estimat Glomerular Filtration Rate 19 ML/MIN 18 ML/MIN Protein Corrected Calcium 6.9 MG/DL 7.0 MG/DL Urine Osmolality 331 MOSM/KG Urine Random Sodium 35 MEQ/L Urine Eosinophils NONE SEEN /HPF White Blood Count 14.0 TH/MM3 Red Blood Count 2.34 MIL/MM3 Hemoglobin 6.9 GM/DL Hematocrit 20.0 % Mean Corpuscular Volume 85.8 FL Mean Corpuscular Hemoglobin 29.4 PG Mean Corpuscular Hemoglobin Concent 34.3 % Red Cell Distribution Width 21.8 % Platelet Count 122 TH/MM3 Mean Platelet Volume 8.3 FL Neutrophils (%) (Auto) 89.0 % Lymphocytes (%) (Auto) 5.0 % Monocytes (%) (Auto) 4.0 % Eosinophils (%) (Auto) 1.4 % Basophils (%) (Auto) 0.6 % Neutrophils # (Auto) 12.5 TH/MM3 Lymphocytes # (Auto) 0.7 TH/MM3 Monocytes # (Auto) 0.6 TH/MM3 Eosinophils # (Auto) 0.2 TH/MM3 Basophils # (Auto) 0.1 TH/MM3 CBC Comment DIFF FINAL Differential Comment Magnesium Level 3.3 MG/DL Complement C3 88 MG/DL Complement C4 21 MG/DL Test 10/08/17 08:15 10/08/17 13:05 Haptoglobin 181 MG/DL Lactate Dehydrogenase 383 U/L Imaging Last 24 hours Impressions Chest X-Ray 10/08/17 0600 Signed Impressions: Service Date/Time: Sunday, October 08, 2017 02:51 - CONCLUSION: No significant change has occurred. Chadwick Diaz MD Chest X-Ray 10/08/17 0000 Signed Impressions: Service Date/Time: Sunday, October 08, 2017 10:44 - CONCLUSION: Vas-Cath in good position no pneumothorax Moderate interstitial edema and bibasilar parenchymal changes. Rahul Yarbrough MD FACR Assessment and Plan Problem List: (1) Sepsis ICD Codes: A41.9 - Sepsis, unspecified organism Status: Acute (2) Endocarditis ICD Codes: I38 - Endocarditis, valve unspecified Status: Acute (3) Tobacco abuse ICD Codes: Z72.0 - Tobacco use (4) IV drug abuse ICD Codes: F19.10 - Other psychoactive substance abuse, uncomplicated Assessment and Plan 1) Severe sepsis secondary to endocarditis Per critical care/ID Appears to have both a large tricuspid valve as well as a moderate pulmonic valve endocarditis Anti-biotics per ID CT surgery evaluation, con't anti-biotics and repeat echo in 4-6 weeks 2) Tobacco abuse 3) IV heroine abuse 4) VDRF 5) Pleural effusions 6) Agree with diuresis as possible Bumex drip started Problem Qualifiers (1) Sepsis: Qualified Codes: A41.9 - Sepsis, unspecified organism (2) Endocarditis: Zen Roberts DO Oct 08, 2017 14:23
[2017-10-08] MEDS: ACETAMINOPHEN 325 MG TAB PO PRN (15:33)
[2017-10-08] MEDS: RIFAMPIN 150 MG CAP PO SCH ×2 (15:49→21:20)
--- NOTE | 2017-10-08 15:53 | HHI.NPPN ---
Subjective History of Present Illness Patient is 27-year-old male who reported to ER with body aches, 7 days of diarrhea with development fever. Past medical history of IV drug use. Patient is sedated and ventilated FiO2 at 40 %. Nephrology is consulted for ZEUS and fluid over load status. Patients creatinine is 3.02 and GFR 25ml/min. Patient is UOP at 800cc for last 24 hours. Weight has increased by over 10 kg since admission. IVF's have been stopped and lasix has been given. Patient has endocarditis with large tricuspid valve vegetation, and pulmonic vegetation. Noted to have bacteremia with hypotension with SBP in the 90's. Additional Remarks Patient intubated and sedated. Receiving dialysis currently. (Venus Barrett) Objective Data Data 10/08/17 10/09/17 18:59 06:59 Intake Total 10 ml Balance 10 ml Blood Product IV Normal Saline Flush 10 ml Vital Signs Date Time Temp Pulse Resp B/P (MAP) Pulse Ox O2 Delivery O2 Flow Rate FiO2 10/08/17 13:15 103.1 123 18 113/54 97 10/08/17 12:13 98 40 10/08/17 08:23 99 40 10/08/17 06:00 121 10/08/17 04:00 99.2 113 19 96/55 (69) 99 10/08/17 04:00 99 40 10/08/17 04:00 112 10/08/17 04:00 40 10/08/17 02:00 113 10/08/17 01:15 99 40 10/08/17 00:00 99.1 111 17 102/50 (67) 99 10/08/17 00:00 111 10/08/17 00:00 40 10/07/17 22:00 112 10/07/17 21:28 99 40 10/07/17 20:00 98.4 110 16 101/54 (70) 100 10/07/17 20:00 40 10/07/17 20:00 110 10/07/17 18:20 112 95/55 10/07/17 18:00 109 10/07/17 17:39 100 40 10/07/17 16:00 99.2 103 16 102/55 (71) 100 10/07/17 16:00 50 10/07/17 16:00 103 (Venus Barrett) -: 10/08/17 0500 10/08/17 0500 Physical Exam General Appearance: Comfortable (Venus Barrett) Pulmonary Resp Exam: No Distress, Rhonchi, Decreased Bases (Venus Barrett) Cardiology CV Exam: Regular (Venus Barrett) Gastrointestinal/Abdomen GI Exam: Soft, Non-Tender, Bowel Sounds Present (Venus Barrett) Integumentary Skin Exam: Clear, Warm (Venus Barrett) Extremeties Extremities Exam: Moderate Edema (Venus Barrett) Neurologic Neuro Exam: Sedated (Venus Barrett) Assessment/Plan Problem List: (1) ZEUS (acute kidney injury) ICD Codes: N17.9 - Acute kidney failure, unspecified Plan: ZEUS most likely ATN from sepsis and low blood pressure. Other differential will be ATN, Acute interstitial nephritis, and Post infectious GN,unlikely. Patient with over 10 kg weight gain. UOP over the past 24 hours at 800ml Significant anasarca Anemia with HGB of 6.9 today transfusing 2 units of PRBC Calcium continues to be low replacement given Continue to Monitor I+O Continue Bumex gtt and albumin every 12 hours. Will continue to monitor labs and urinary output Patient seen during HD plan to remove 4 liters Blood pressure holding steady. (2) Sepsis ICD Codes: A41.9 - Sepsis, unspecified organism Status: Acute Plan: Antibiotics per ID (3) Endocarditis ICD Codes: I38 - Endocarditis, valve unspecified Status: Acute (Venus Barrett) Problem List: (1) ZEUS (acute kidney injury) ICD Codes: N17.9 - Acute kidney failure, unspecified Plan: ZEUS most likely ATN from sepsis and low blood pressure. Other differential will be ATN, Acute interstitial nephritis, and Post infectious GN,unlikely. Patient with over 10 kg weight gain. UOP over the past 24 hours at 800ml Significant anasarca Anemia with HGB of 6.9 today transfusing 2 units of PRBC Calcium continues to be low replacement given Continue to Monitor I+O Continue Bumex gtt and albumin every 12 hours. Will continue to monitor labs and urinary output Patient seen during HD plan to remove 4 liters Blood pressure holding steady. Patient seen and examined, agree with above. HD as needed. Avoid Nephrotoxins, follow urine out put and BMP. (2) Sepsis ICD Codes: A41.9 - Sepsis, unspecified organism Status: Acute Plan: Antibiotics per ID (3) Endocarditis ICD Codes: I38 - Endocarditis, valve unspecified Status: Acute (Darek Tapia MD) Problem Qualifiers (1) Sepsis: Qualified Codes: A41.9 - Sepsis, unspecified organism (2) Endocarditis: Venus Barrett Oct 08, 2017 15:53 Darek Tapia MD Oct 08, 2017 21:10
[2017-10-09] VITALS (18 sets, daily range): BP systolic 102–160; BP diastolic 55–59; PULSE 88–100; RESP 16–22; TEMP 98.4–99.9; O2SAT 96–100
[2017-10-09] MEDS: CHLORHEXIDINE GLUCONATE 2 % 1 PACK (2 CLOTHS) TOP SCH (01:57)
[2017-10-09] MEDS: VASOPRESSIN INJ 40 UNITS in DEXTROSE 5% IN WATER 100ML INJ 98 ML IV SCH ×4 (01:57→20:20)
[2017-10-09] MEDS: OXACILLIN INJ 2 GM in SODIUM CHLORIDE 0.9% INJ 100 ML IV SCH ×3 (01:58→08:28)
[2017-10-09] MEDS: fentaNYL DRIP 250 ML IV PRN ×2 (01:58→23:31)
[2017-10-09] MEDS: MIDAZOLAM 100 MG/100 ML INJ 100 ML IV PRN (02:04)
[2017-10-09] MEDS: RESP: ALBUTEROL 2.5 MG/IPRATROPIUM 0.5 MG NEB (SCH) NEB ×4 (04:32→21:12)
--- NOTE | 2017-10-09 04:52 | RADRPT ---
EXAM DATE/TIME: 10/09/2017 03:51 [facility] COMPARISON: CHEST SINGLE AP, October 08, 2017, 10:44. INDICATIONS : Shortness of breath, possible pulmonary disease. MEDICAL HISTORY : None. SURGICAL HISTORY : None. ENCOUNTER: Subsequent ACUITY: 1 week PAIN SCORE: 0/10 LOCATION: Bilateral chest FINDINGS: No significant interval change in appearance of the chest. Right jugular line, left subclavian line, left-sided chest tube and endotracheal tube and enteric tube are again noted. Cardiomegaly, effusions and consolidation remain. CONCLUSION: No significant change has occurred. Chadwick Diaz MD on October 09, 2017 at 4:50 Board Certified Radiologist. This report was verified electronically.
[2017-10-09] MEDS: HEPARIN SODIUM - SQ 10,000 UNITS/ML VIAL SQ SCH ×3 (05:20→21:20)
[2017-10-09] MEDS: FREE WATER OG-TUBE SCH ×2 (05:20)
[2017-10-09 05:50] LABS: AUTOMATED NEUTROPHIL # 8.1 TH/MM3 (1.8-7.7); BASOPHIL % 0.3 % (0.0-2.0); EOSINOPHIL # 0.2 TH/MM3 (0-0.4); EOSINOPHIL % 1.9 % (0.0-4.0); LYMPH % 8.3 % (9.0-44.0); LYMPHOCYTE # 0.8 TH/MM3 (1.0-4.8); MEAN CELL VOLUME 85.3 FL (80.0-100.0); MEAN CORPUSCULAR HEMOGLOBIN 29.5 PG (27.0-34.0); MEAN CORPUSCULAR HGB CONC 34.6 % (32.0-36.0); MEAN PLATELET VOLUME 8.2 FL (7.0-11.0); MONO % 5.2 % (0.0-8.0); MONOCYTE # 0.5 TH/MM3 (0-0.9); NEUT % 84.3 % (16.0-70.0); PLATELET COUNT 114 TH/MM3 (150-450); RED BLOOD COUNT 2.29 MIL/MM3 (4.50-5.90); WHITE BLOOD COUNT 9.6 TH/MM3 (4.0-11.0)
[2017-10-09 06:11] LABS: HEMATOCRIT 19.5 % (39.0-51.0); HEMOGLOBIN 6.8 GM/DL (13.0-17.0)
[2017-10-09 06:45] LABS: ALBUMIN 1.9 GM/DL (3.4-5.0); BICARBONATE 23.6 MEQ/L (21.0-32.0); CALCIUM 7.1 MG/DL (8.5-10.1); CREATININE 4.56 MG/DL (0.60-1.30); MAGNESIUM 2.9 MG/DL (1.5-2.5); TOTAL BILIRUBIN ADULT 1.8 MG/DL (0.2-1.0); TOTAL PROTEIN 7.8 GM/DL (6.4-8.2)
[2017-10-09 07:25] LABS: CALCIUM-PROTEIN CORRECTED 6.8 MG/DL (8.5-10.1)
[2017-10-09] MEDS: CHLORHEXIDINE 0.12% (ORAL KIT) 15 ML CUP MT SCH ×2 (08:00→20:00)
[2017-10-09] MEDS ORDERED: CALCIUM CHLORIDE INJ 2 GM in SODIUM CHLORIDE 0.9% INJ 100 ML IV ONE (08:15)
[2017-10-09] MEDS: METHOCARBAMOL 500 MG TAB PO SCH ×4 (08:26→21:20)
[2017-10-09] MEDS: RIFAMPIN 150 MG CAP PO SCH ×2 (08:26→21:20)
[2017-10-09] MEDS: DOCUSATE SODIUM 50 MG/SENNA 8.6 MG TAB PO SCH ×2 (08:26→21:20)
[2017-10-09] MEDS: FAMOTIDINE 20 MG/2 ML VIAL IV PUSH SCH (08:27)
[2017-10-09] MEDS: BENEPROTEIN POWDER 1 PACK OG-TUBE SCH ×3 (08:27→17:54)
[2017-10-09] MEDS: ALBUMIN 25% INJ 100 ML IV SCH ×2 (08:27→21:20)
[2017-10-09] MEDS: FLUTICASONE PROPIONATE 44 MCG/ACT 10.6 GM INHALER INH SCH ×2 (09:00→21:00)
[2017-10-09] MEDS: SODIUM CHLORIDE 0.9% FLUSH 10 ML FLUSH IV FLUSH SCH ×2 (09:57→21:00)
[2017-10-09] MEDS ORDERED: CEFTAROLINE INJ 600 MG in SODIUM CHLORIDE 0.9% INJ 100 ML IV SCH (10:00)
[2017-10-09] MEDS ORDERED: CEFTAROLINE INJ 300 MG in SODIUM CHLORIDE 0.9% INJ 100 ML IV SCH (11:00)
[2017-10-09] MEDS: PROPOFOL 1000 MG/100 ML INJ 100 ML IV PRN ×3 (11:07→23:32)
--- NOTE | 2017-10-09 11:38 | PD.CARD.PN ---
Subjective Subjective Remarks No events overnight Vascath placed Objective Medications Current Medications Medications (Trade) Dose Ordered Sig/Willem Route Start Time Stop Time Status Last Admin (NS Flush) 2 ml UNSCH PRN IV FLUSH 10/03/17 21:15 10/05/17 21:09 (NS Flush) 2 ml BID IV FLUSH 10/04/17 09:00 10/09/17 09:57 (Tylenol) 650 mg Q6H PRN PO 10/03/17 21:15 10/08/17 15:33 (Morphine Inj) 2 mg Q2H PRN IV PUSH 10/03/17 21:15 10/04/17 12:54 (Pepcid Inj) 10 mg Q12HR IV PUSH 10/04/17 09:00 10/09/17 08:27 (Ativan Inj) 1 mg Q1H PRN IV PUSH 10/03/17 21:15 10/04/17 12:14 (Zofran Inj) 4 mg Q6H PRN IV PUSH 10/03/17 21:15 (Restoril) 15 mg HS PRN PO 10/03/17 21:15 (Duoneb Neb) 1 ampule Q2HR NEB PRN INH 10/03/17 21:15 Miscellaneous Information 1 Q361D XX 10/03/17 21:15 (Chlorhexidine 2% Cloth) Taper DAILY@04 TOP 10/04/17 04:00 09/30/18 03:59 10/08/17 04:00 (Chlorhexidine 2% Cloth) 3 pack UNSCH PRN TOP 10/03/17 21:15 (Renita-Colace) 1 tab BID PO 10/04/17 09:00 10/09/17 08:26 (Milk Of Magnesia Liq) 30 ml Q12H PRN PO 10/03/17 21:15 (Senokot) 17.2 mg Q12H PRN PO 10/03/17 21:15 (Dulcolax Supp) 10 mg DAILY PRN RECTAL 10/03/17 21:15 (Lactulose Liq) 30 ml DAILY PRN PO 10/03/17 21:15 (Flovent Hfa 44 Mcg Inh) 2 puff BID INH 10/04/17 09:00 (Robaxin) 500 mg QID PO 10/04/17 09:00 10/09/17 08:26 Acetaminophen 100 ml @ 400 mls/hr Q6H PRN IV 10/04/17 12:00 10/08/17 21:18 (Peridex 0.12% Liq) 15 ml BID@08,20 MT 10/04/17 20:00 10/09/17 08:00 Propofol 100 ml @ 3 mls/hr TITRATE PRN IV 10/04/17 14:45 10/09/17 11:07 Midazolam HCl 100 ml @ 2 mls/hr TITRATE PRN IV 10/04/17 14:45 10/09/17 02:04 Fentanyl Citrate 250 ml @ 5 mls/hr TITRATE PRN IV 10/04/17 14:45 10/09/17 01:58 (Beneprotein Powder) 2 pack TID OG-TUBE 10/05/17 13:00 10/09/17 08:27 (Free Water) 200 ml Q6HR OG-TUBE 10/05/17 12:00 10/09/17 05:20 Vasopressin 40 units/Dextrose 100 ml @ 6 mls/hr [id number] IV 10/06/17 09:00 (Duoneb Neb) 1 ampule Q6HR NEB NEB 10/07/17 10:00 10/09/17 08:34 Albumin Human 100 ml @ 60 mls/hr Q12H IV 10/07/17 10:00 10/09/17 08:27 (Heparin Inj) 5,000 units Q8HR SQ 10/07/17 14:00 10/09/17 05:20 (Rifampin) 300 mg Q12HR PO 10/08/17 11:30 10/09/17 08:26 Sodium Chloride 1,000 ml @ 0 mls/hr Q0M PRN OTHER 10/08/17 10:33 (Heparin Inj) 8,000 units UNSCH PRN IV FLUSH 10/08/17 10:45 Sodium Chloride 1,000 ml @ 200 mls/hr Q5H PRN IV 10/08/17 11:15 Sodium Chloride 1,000 ml @ 0 mls/hr Q0M PRN OTHER 10/08/17 11:15 (Mannitol Inj) 12.5 gm UNSCH PRN IV 10/08/17 11:15 Albumin Human 100 ml @ 60 mls/hr UNSCH PRN IV 10/08/17 11:30 (NS Flush) 5 ml UNSCH PRN IV FLUSH 10/08/17 11:15 (Heparin Inj) UNSCH PRN .XX 10/08/17 11:15 (Gentamicin Inj) 20 mg UNSCH PRN OTHER 10/08/17 11:15 (Zofran Inj) 4 mg UNSCH PRN IV PUSH 10/08/17 11:15 (Tylenol) 650 mg UNSCH PRN PO 10/08/17 11:15 (Benadryl) 25 mg UNSCH PRN PO 10/08/17 11:15 (Nitrostat Sl) 0.4 mg UNSCH PRN SL 10/08/17 11:30 (Catapres) 0.1 mg UNSCH PRN PO 10/08/17 11:30 (Epogen Inj) 10,000 units UNSCH PRN IV PUSH 10/08/17 11:30 (Gelfoam 12 Mm/7 Mm Top) 1 foam UNSCH PRN TOP 10/08/17 11:30 Cefazolin Sodium 1000 mg/Sodium Chloride 100 ml @ 200 mls/hr Q8H IV 10/09/17 10:00 10/09/17 11:16 Ceftaroline Fosamil 300 mg/ Sodium Chloride 100 ml @ 100 mls/hr Q12H IV 10/09/17 11:00 Vital Signs / I&O Vital Signs Date Time Temp Pulse Resp B/P (MAP) Pulse Ox O2 Delivery O2 Flow Rate FiO2 10/09/17 08:34 100 40 10/09/17 06:00 94 10/09/17 04:59 100 40 10/09/17 04:00 40 10/09/17 04:00 97.5 96 16 102/55 (71) 97 10/09/17 04:00 96 10/09/17 02:09 100 40 10/09/17 02:00 95 10/09/17 01:57 96 10/09/17 00:00 99.1 97 18 102/55 (71) 100 10/09/17 00:00 97 10/09/17 00:00 40 10/08/17 23:35 99 40 10/08/17 22:00 107 10/08/17 20:40 99 40 10/08/17 20:00 107 10/08/17 20:00 100.9 107 16 111/58 (75) 99 10/08/17 20:00 40 10/08/17 19:00 100.8 107 18 112/56 99 10/08/17 18:00 106 10/08/17 16:00 40 10/08/17 16:00 112 10/08/17 16:00 101.2 112 15 110/55 (73) 100 10/08/17 14:00 123 10/08/17 13:15 103.1 123 18 113/54 97 10/08/17 12:13 98 40 10/08/17 12:00 100.7 124 20 106/51 (69) 96 10/08/17 12:00 40 10/08/17 12:00 124 10/08/17 11:58 100 40 I/O 10/08/17 10/08/17 10/08/17 10/09/17 10/09/17 10/09/17 07:00 15:00 23:00 07:00 15:00 23:00 Intake Total 923 ml 430 ml 1204 ml 1803 ml 25 ml Output Total 550 ml 4360 ml 450 ml Balance 373 ml 430 ml -3156 ml 1353 ml 25 ml IV Total 420 ml 200 ml 850 ml Tube Feeding 573 ml 394 ml 553 ml Packed Cells 400 ml Blood Product IV Normal Saline Flush 10 ml 10 ml 25 ml Tube Irrigant 400 ml Other 350 ml 200 ml Output Urine Total 550 ml 350 ml 450 ml Chest Tube Drainage Total 0 ml 10 ml Hemodialysis 4000 ml # Bowel Movements 1 0 Physical Exam GENERAL: Intubated and sedated SKIN: Warm and dry. HEAD: Atraumatic. Normocephalic. EYES: Pupils equal and round. No scleral icterus. No injection or drainage. ENT: No nasal bleeding or discharge. Mucous membranes pink and moist. NECK: Trachea midline. No JVD. CARDIOVASCULAR: Regular rate and rhythm. Mildly tachycardic RESPIRATORY: No accessory muscle use. Decreased breath sounds GASTROINTESTINAL: Abdomen soft, non-tender, nondistended. Hepatic and splenic margins not palpable. MUSCULOSKELETAL: Extremities without clubbing, cyanosis, or edema. No obvious deformities. NEUROLOGICAL: Intubated and sedated Laboratory Laboratory Tests Test 10/08/17 13:05 10/09/17 05:00 White Blood Count 9.6 TH/MM3 Red Blood Count 2.29 MIL/MM3 Hemoglobin 6.8 GM/DL Hematocrit 19.5 % Mean Corpuscular Volume 85.3 FL Mean Corpuscular Hemoglobin 29.5 PG Mean Corpuscular Hemoglobin Concent 34.6 % Red Cell Distribution Width 21.0 % Platelet Count 114 TH/MM3 Mean Platelet Volume 8.2 FL Neutrophils (%) (Auto) 84.3 % Lymphocytes (%) (Auto) 8.3 % Monocytes (%) (Auto) 5.2 % Eosinophils (%) (Auto) 1.9 % Basophils (%) (Auto) 0.3 % Neutrophils # (Auto) 8.1 TH/MM3 Lymphocytes # (Auto) 0.8 TH/MM3 Monocytes # (Auto) 0.5 TH/MM3 Eosinophils # (Auto) 0.2 TH/MM3 Basophils # (Auto) 0.0 TH/MM3 CBC Comment DIFF FINAL Differential Comment Blood Urea Nitrogen 58 MG/DL Creatinine 4.56 MG/DL Random Glucose 124 MG/DL Total Protein 7.8 GM/DL Albumin 1.9 GM/DL Calcium Level 7.1 MG/DL Magnesium Level 2.9 MG/DL Alkaline Phosphatase 327 U/L Aspartate Amino Transf (AST/SGOT) 121 U/L Alanine Aminotransferase (ALT/SGPT) 37 U/L Total Bilirubin 1.8 MG/DL Sodium Level 140 MEQ/L Potassium Level 5.0 MEQ/L Chloride Level 106 MEQ/L Carbon Dioxide Level 23.6 MEQ/L Anion Gap 10 MEQ/L Estimat Glomerular Filtration Rate 16 ML/MIN Protein Corrected Calcium 6.8 MG/DL Imaging Last 24 hours Impressions Chest X-Ray 10/09/17 0600 Signed Impressions: Service Date/Time: September 03:51 - CONCLUSION: No significant change has occurred. Chadwick Diaz MD Assessment and Plan Problem List: (1) Sepsis ICD Codes: A41.9 - Sepsis, unspecified organism Status: Acute (2) Endocarditis ICD Codes: I38 - Endocarditis, valve unspecified Status: Acute (3) Tobacco abuse ICD Codes: Z72.0 - Tobacco use (4) IV drug abuse ICD Codes: F19.10 - Other psychoactive substance abuse, uncomplicated Assessment and Plan 1) Severe sepsis secondary to endocarditis Per critical care/ID Appears to have both a large tricuspid valve as well as a moderate pulmonic valve endocarditis Anti-biotics per ID CT surgery evaluation, con't anti-biotics and repeat echo in 4-6 weeks 2) Tobacco abuse 3) IV heroine abuse 4) VDRF 5) Pleural effusions 6) Attempted to diuresis with Bumex drip Stopped Vascath placed for HD Problem Qualifiers (1) Sepsis: Qualified Codes: A41.9 - Sepsis, unspecified organism (2) Endocarditis: Zen Roberts DO Oct 09, 2017 11:38
--- NOTE | 2017-10-09 12:18 | PD.PROCEDR ---
Procedure Note Procedure Procedure: Ultrasound-guided right pigtail chest tube placement indication: Large right parapneumonic effusion A time-out was completed verifying correct patient, procedure, site, positioning , and special equipment. Ultrasound was used to karan the site. the patient was positioned appropriately for chest tube placement in left lateral decubitus position. The patients right chest was prepped and draped in sterile fashion. 1 % Lidocaine was used to anesthetize the surrounding skin area. A 0.25cm skin incision was made in the in the posterolateral right hemithorax at the site marked with ultrasound. 18-gauge needle was inserted into the pleural space and brown colored slightly cloudy pleural fluid was aspirated. Syringe was removed and guidewire was placed. After serial dilation, 10 F pigtail catheter was inserted into the pleural space using Seldinger technique and positioned appropriately. The chest tube was sutured securely to the skin with silk suture and a sterile dressing applied with StayFix. A pleurovac was attached to the chest tube and placed at -40 suction and a chest x-ray ordered. Initial output was 1100 ml drown colored old blood tinged slightly cloudy fluid Estimated Blood Loss: <1ml The patient tolerated the procedure well and there were no immediate complications. Jaki Barraza MD Oct 09, 2017 12:18
--- NOTE | 2017-10-09 12:46 | HHI.CCPN ---
Subjective Remarks/Hospital Course 27-year-old male with remote history of IV drug abuse, states he last used heroin 2 months ago, presents for evaluation of 8 days of body aches, 7 days of diarrhea with development of subjective fever yesterday. Patient denies any nausea or vomiting. He denies any chest pain. States that he is short of breath and feels anxious. This has developed within the last 24 hours. Patient does have a cough with clear sputum. Denies any prior history of endocarditis. Denies any abdominal pain. Does report some left back pain, worse while lying flat. He is well reports generalized weakness. 10/04/17: He is critically ill, remains febrile up to 103, tachycardic diaphoretic. large tricuspid valve vegetation on bedside echo, formal echo pending. Infectious disease consulted, CT surgery consult ordered. D/W Dr. Macias and Dr. Charles. CARMEN/banking specialist consult ordered. Hb 6.6 getting 2U PRBC 10/05: Remains critically ill intubated sedated. TE on yesterday TEF 40-45%. Large mobile vegetation noted on the tricuspid valve, may be 2 separate vegetations, measures overall 4cm x 1.7cm. Probable mobile density noted on the pulmonic valve. CT of the chest shows extensive septic emboli and consolidation , with loculated appearing effusion on the left base. Dr. Charles CT surgery recommends 4-6 weeks of IV antibiotics followed by repeat echo, considering surgery at that time if no improvement 10/06: Worsening CXR, with bibasilar worsening infiltrates and effusion. IR to place CT-guided left chest tube today for loculated effusion. Fluid overloaded approximately 8 kg. IV Lasix 40 mg x1. MSSA bacteremia persists 10/07: Remains intubated sedated remains critical severe volume overload with worsening renal function creatinine 3, weight up by at least [address] him on Bumex infusion and consult nephrology. Patient remains slightly oliguric 800 mL urine output in 24 hours. Chest x-ray showed bilateral infiltrates and worsening right effusion 10/08: Remains intubated heavily sedated oliguric. Continues to have positive fluid balance creatinine increased to 4.3. Hemoglobin 6.9. Currently on Bumex infusion with not adequate response. Persistently bacteremic. Bilateral infiltrates on chest x-ray with moderate right effusion 10/09: Intubated sedated remains severely fluid overloaded started on hemodialysis yesterday with 4 L removed still positive fluid balance. Hemoglobin 6.81 unit PRBC transfusion ordered along with calcium replacement. GI consulted for further workup. Large pleural effusion on right side plan for pigtail chest tube placement Objective Vital Signs Date Time Temp Pulse Resp B/P (MAP) Pulse Ox O2 Delivery O2 Flow Rate FiO2 10/09/17 08:34 100 40 10/09/17 06:00 94 10/09/17 04:00 97.5 16 102/55 (71) Intake and Output 10/09/17 10/09/17 10/10/17 08:00 16:00 00:00 Intake Total 1803 ml 450 ml Output Total 450 ml Balance 1353 ml 450 ml Result Diagram: 10/09/17 0500 10/09/17 0500 Other Results Microbiology Date/Time Source Procedure Growth Status 10/06/17 15:50 Fluid Pleural Fluid Gram Stain - Final Complete 10/06/17 15:50 Fluid Pleural Fluid Body Fluid Culture - Final NO GROWTH IN 72 HRS.--AEROBICALLY OR ... Complete Objective Remarks GENERAL: Well-nourished, well-developed patient. Critically ill, intubated sedated SKIN: Warm and dry. Extensive tattoos limits skin exam. Anasarca HEAD: Normocephalic. EYES: No scleral icterus. No injection or drainage. ENT: Orotracheally intubated NECK: Supple, trachea midline. No JVD or lymphadenopathy. CARDIOVASCULAR: S1-S2 normal with systolic murmur at the left sternal border. Large TV vegetation on bedside echo RESPIRATORY: Air entry is equal bilaterally, coarse rhonchi and crackles. Large right pleural effusion on bedside ultrasound GASTROINTESTINAL: Abdomen soft, non-tender, nondistended. MUSCULOSKELETAL: No cyanosis. Significant anasarca NEURO EXAM: The patient is intubated heavily sedated, Pupils are round, reactive to light. Moves extremities spontaneously and follows commands when sedation is lightened A/P Assessment and Plan Neuro IVDU: - Propofol Versed and fentanyl for vent synchrony and sedation - Watch closely for withdrawal - Daily sedation medication Resp: Acute hypoxemic respiratory failure Extensive septic emboli, consolidation of the lung Loculated left effusion, large right effusion - Continue ventilator support, no vent weaning until respiratory status, fluid overload resolved - IR placed left chest tube 10/06 with more than 1 L exudative fluid out. - Placed right-sided pigtail chest tube at the bedside today, brown tinged fluid approximately 1.1 L initial output - Discussed with cardiothoracic surgery Dr. Charles, patient may need decortication, if not adequately drained - Broad-spectrum antibiotics per ID, see below - DuoNeb q6hr and PRN CVS: Large tricuspid valve vegetation, and pulmonic vegetation Severe sepsis Fluid overload - Bedside echo shows mild tricuspid vegetation - Cardiology and CT surgery following - CARMEN 10/04: EF 40-45%. Large mobile vegetation on tricuspid valve, may be 2 separate vegetations, measures overall 4cm x 1.7cm. - Probable mobile density noted on the pulmonic valve. - See ID section for ABX - Dr. Charles CT surgery recommends 4-6 weeks of antibiotics and repeat echo - Fluid up by >15 kg, DC Bumex gtt-HD started 10/08 GI: Hepatosplenomegaly Diarrhea - IV famotidine change to Protonix due to persistent anemia - Tube feeds with Jevity - Check C Diff, if diarrhea persist, check stool for occult blood - Hepatitis C reactive : Acute kidney failure with fluid overload Dehydration on admission - Currently fluid overloaded with worsening bilateral effusion. - DC Bumex infusion started hemodialysis 10/08 - Strict I's and O's, Monitor trend of creatinine - Electrolytes replacement per ICU protocol ID: Tricuspid and pulmonic valve endocarditis Septic emboli to the lung Severe sepsis MSSA bacteremia - Discussed with Dr. Charles CT surgery 10/05/17 - He recommends 4-6 weeks of IV antibiotics with repeat echo, consideration for surgery if Vegetations persists - Ceftaroline and Cefazolin per ID Dr. Macias - Persistent MSSA bacteremia - F/u HIV, Hepatitis panel. Hepatitis C reactive Endo: -Electrolyte replacement per protocol Heme: Anemia requiring transfusion Thrombocytopenia - 1U PRBC today. LDH mildly elevated and haptoglobin normal - Monitor CBC, Coags - Thrombocytopenia base most likely from sepsis and DIC DVT GI prophylaxis - TEDs SCDs - Started Heparin 5000 U sq q8 10/07, holding 10/08 due to blood loss - Pepcid-change to Protonix Critical Care: The total critical care time was 35 minutes. Time to perform other separately billable procedures was not included in the critical care time. Patient remains critical with multiorgan failure and severe septic shock. He has huge tricuspid valve and probably pulmonic valve vegetations. His prognosis appears guarded. Renal failure worsening hemodialysis to be started , also transfuse for anemia. Respiratory failure and fluid overload persist. Jaki Barraza MD Oct 09, 2017 12:46
--- NOTE | 2017-10-09 13:00 | HHI.IDPN ---
Subjective Subjective Remarks is a 27 y/o CM with remote history of IV drug abuse, states he last used heroin 2 months ago, presents for evaluation of body aches, 7 days of diarrhea with development of subjective fever yesterday. Patient denies any nausea or vomiting. He denies any chest pain. This has developed within the last 24 hours. Patient does have a cough with clear sputum. Denies any prior history of endocarditis. Denies any abdominal pain. Does report some left back pain, worse while lying flat. He is well reports generalized weakness. Patient met criteria for sepsis on admission. Flu antigen negative. CXR with bilateral infiltrates. performed a bedside 2D ECHO and verbally reported a large ~4.5 cm vegetation on TV. CXR suspicious for septic emboli. Blood cultures drawn but it appears patient has received augmentin at some point and cultures may possibly be negative. At the time of my evaluation patient is in the ICU, appears in respiratory distress there is a plan for intubation and CARMEN today. UO ok. No diarrhea, no rash. Not on pressors. ID is consulted for evaluation and Mment of Severe Sepsis and Endocarditis. Overnight events reviewed. Persistent fevers Persistent bacteremia. Pt has 3 vegetations on tricuspid and pulmonic valve. No rash No diarrhea UO low. Vascath placed. Underwent HD yday and plan for another session today. Remains on vent. FiO2 40%, PEEP 5. Secretions moderate pale yellow. Plan for CT placement today. Antibiotics Oxacillin IV Lines Line sites with no e.o infection Past Medical History Past Medical History Asthma Past Surgical History No surgical history per records. Allergies: Coded Allergies: erythromycin base (Verified Allergy, Severe, Nausea/Vomiting, 10/03/17) raspberry (Unverified Allergy, Mild, 10/03/17) Objective . Vital Signs Date Time Temp Pulse Resp B/P (MAP) Pulse Ox O2 Delivery O2 Flow Rate FiO2 10/09/17 12:19 100 40 10/09/17 12:00 40 10/09/17 08:34 100 40 10/09/17 08:00 40 10/09/17 06:00 94 10/09/17 04:59 100 40 10/09/17 04:00 40 10/09/17 04:00 97.5 96 16 102/55 (71) 97 10/09/17 04:00 96 10/09/17 02:09 100 40 10/09/17 02:00 95 10/09/17 01:57 96 10/09/17 00:00 99.1 97 18 102/55 (71) 100 10/09/17 00:00 97 10/09/17 00:00 40 10/08/17 23:35 99 40 10/08/17 22:00 107 10/08/17 20:40 99 40 10/08/17 20:00 107 10/08/17 20:00 100.9 107 16 111/58 (75) 99 10/08/17 20:00 40 10/08/17 19:00 100.8 107 18 112/56 99 10/08/17 18:00 106 10/08/17 16:00 40 10/08/17 16:00 112 10/08/17 16:00 101.2 112 15 110/55 (73) 100 10/08/17 14:00 123 10/08/17 13:15 103.1 123 18 113/54 97 10/09/17 10/09/17 10/10/17 14:59 22:59 06:59 Intake Total 450 ml Balance 450 ml Packed Cells 400 ml Blood Product IV Normal Saline Flush 50 ml . Laboratory Tests Test 10/08/17 05:00 10/08/17 08:15 10/09/17 05:00 White Blood Count 14.0 TH/MM3 9.6 TH/MM3 Red Blood Count 2.34 MIL/MM3 2.29 MIL/MM3 Hemoglobin 6.9 GM/DL 6.8 GM/DL Hematocrit 20.0 % 19.5 % Mean Corpuscular Volume 85.8 FL 85.3 FL Mean Corpuscular Hemoglobin 29.4 PG 29.5 PG Mean Corpuscular Hemoglobin Concent 34.3 % 34.6 % Red Cell Distribution Width 21.8 % 21.0 % Platelet Count 122 TH/MM3 114 TH/MM3 Mean Platelet Volume 8.3 FL 8.2 FL Neutrophils (%) (Auto) 89.0 % 84.3 % Lymphocytes (%) (Auto) 5.0 % 8.3 % Monocytes (%) (Auto) 4.0 % 5.2 % Eosinophils (%) (Auto) 1.4 % 1.9 % Basophils (%) (Auto) 0.6 % 0.3 % Neutrophils # (Auto) 12.5 TH/MM3 8.1 TH/MM3 Lymphocytes # (Auto) 0.7 TH/MM3 0.8 TH/MM3 Monocytes # (Auto) 0.6 TH/MM3 0.5 TH/MM3 Eosinophils # (Auto) 0.2 TH/MM3 0.2 TH/MM3 Basophils # (Auto) 0.1 TH/MM3 0.0 TH/MM3 CBC Comment DIFF FINAL DIFF FINAL Differential Comment Haptoglobin 181 MG/DL Laboratory Tests Test 10/07/17 17:30 10/08/17 05:00 10/08/17 08:15 10/09/17 05:00 Blood Urea Nitrogen 54 MG/DL 56 MG/DL 58 MG/DL Creatinine 3.80 MG/DL 4.13 MG/DL 4.56 MG/DL Random Glucose 101 MG/DL 113 MG/DL 124 MG/DL Total Protein 7.7 GM/DL 7.8 GM/DL 7.8 GM/DL Albumin 1.6 GM/DL 1.7 GM/DL 1.9 GM/DL Calcium Level 7.1 MG/DL 7.3 MG/DL 7.1 MG/DL Alkaline Phosphatase 300 U/L 327 U/L 327 U/L Aspartate Amino Transf (AST/SGOT) 127 U/L 137 U/L 121 U/L Alanine Aminotransferase (ALT/SGPT) 27 U/L 33 U/L 37 U/L Total Bilirubin 1.6 MG/DL 1.5 MG/DL 1.8 MG/DL Sodium Level 144 MEQ/L 145 MEQ/L 140 MEQ/L Potassium Level 5.5 MEQ/L 5.1 MEQ/L 5.0 MEQ/L Chloride Level 113 MEQ/L 113 MEQ/L 106 MEQ/L Carbon Dioxide Level 22.5 MEQ/L 21.3 MEQ/L 23.6 MEQ/L Anion Gap 9 MEQ/L 11 MEQ/L 10 MEQ/L Estimat Glomerular Filtration Rate 19 ML/MIN 18 ML/MIN 16 ML/MIN Protein Corrected Calcium 6.9 MG/DL 7.0 MG/DL 6.8 MG/DL Magnesium Level 3.3 MG/DL 2.9 MG/DL Lactate Dehydrogenase 383 U/L Microbiology Date/Time Source Procedure Growth Status 10/07/17 05:07 Blood Peripheral Aerobic Blood Culture - Preliminary Staphylococcus Aureus Resulted 10/07/17 05:07 Blood Peripheral Anaerobic Blood Culture - Preliminary NO GROWTH IN 2 DAYS Resulted 10/07/17 05:01 Blood Peripheral Aerobic Blood Culture - Preliminary Gram Positive Cocci Resulted 10/07/17 05:01 Blood Peripheral Anaerobic Blood Culture - Preliminary NO GROWTH IN 2 DAYS Resulted 10/06/17 15:50 Fluid Pleural Fluid Fungal Smear - Final NO FUNGAL ELEMENTS SEEN. Resulted 10/06/17 15:50 Fluid Pleural Fluid Fungal Culture Pending Resulted 10/06/17 15:50 Fluid Pleural Fluid Acid Fast Stain - Final NO ACID FAST BACILLI SEEN Resulted 10/06/17 15:50 Fluid Pleural Fluid Mycobacterial Culture Pending Resulted 10/06/17 15:50 Fluid Pleural Fluid Gram Stain - Final Complete 10/06/17 15:50 Fluid Pleural Fluid Body Fluid Culture - Final NO GROWTH IN 72 HRS.--AEROBICALLY OR ... Complete Imaging Last Impressions Chest X-Ray 10/04/17 0000 Signed Impressions: Service Date/Time: Wednesday, October 04, 2017 16:11 - CONCLUSION: 1. ET tube in good position. 2. Significant increase in bilateral airspace opacities, now with consolidation in the lower lungs bilaterally. Mat Alejandra MD Chest CT 10/04/17 0000 Signed Impressions: Service Date/Time: Wednesday, October 04, 2017 21:18 - CONCLUSION: Abnormal diffuse airspace opacities throughout both lungs with bilateral lower lobe consolidation and patchy focal areas of consolidation the remainder of the lungs. There is also bilateral pleural effusions with probable loculation. Mat Alejandra MD Abdomen/Pelvis CT 10/04/17 0000 Signed Impressions: Service Date/Time: Wednesday, October 04, 2017 21:21 - CONCLUSION: 1. Severe hepatosplenomegaly without focal lesion. 2. Free fluid in the pelvis. 3. Abnormal lower lungs and pleural effusions. 4. Prominent varices about the splenic vein. Mat Alejandra MD Physical Exam GENERAL: This is a well-nourished, well-developed patient, in no apparent distress. SKIN: No rashes, ecchymoses or lesions. Cool and dry. Multiple tattoos. HEAD: Atraumatic. Normocephalic. No temporal or scalp tenderness. EYES: Pupils equal round and reactive. Extraocular motions intact. ENT: Intubated. NECK: Trachea midline. Supple, nontender, no meningeal signs. CARDIOVASCULAR: ? systolic murmur. RESPIRATORY: Decreased air entry bilaterally bases. GASTROINTESTINAL: Abdomen soft, non-tender, nondistended. MUSCULOSKELETAL: Extremities without clubbing, cyanosis, or edema. NEUROLOGICAL: Sedated, moves extremities. Psych cooperative IV line sites with no e.o infection. Assessment & Plan Remarks Severe Sepsis present on admission MSSA endocarditis. MSSA bacteremia persistent Bilateral pleural effusions: left side appears loculated possible empyema. TV and Pulmonic valve endocarditis Pneumonia: septic emboli, aspiration pneumonia. IVDA: heroin, cocaine and methamphetamine. Acute renal failure: Sepsis, meds,contrast. Recs: DC Oxacillin. Start Teflaro IV (salvage Rx for endocarditis given persistent bacteremia and renal failure) Start Ancef IV (will be the primary drug once bacteremia controlled) Continue Rifampin oral. Follow cultures Follow clinically d/w RN fredis Clinical pharmacist Lakia Tom MD Oct 09, 2017 13:00
[2017-10-09] MEDS: PANTOPRAZOLE SODIUM 40 MG VIAL IV PUSH SCH ×2 (13:35→21:20)
--- NOTE | 2017-10-09 13:35 | RADRPT ---
EXAM DATE/TIME: 10/09/2017 12:33 [facility] COMPARISON: CHEST SINGLE AP, October 09, 2017, 3:51. INDICATIONS : Post right pigtail catheter chest placement MEDICAL HISTORY : None. SURGICAL HISTORY : None. ENCOUNTER: Subsequent ACUITY: 1 week PAIN SCORE: Non-responsive. LOCATION: Right chest FINDINGS: Endotracheal tube, nasogastric tube, dialysis catheter and left thoracostomy tube remain in stable po sition. A new right base pigtail thoracostomy tube has been introduced. There has been interval decre ase in right effusion. Persistent diffuse bilateral alveolar parenchymal opacities with slight interv al improvement. Cardiac contours are grossly stable. CONCLUSION: Right base pigtail thoracostomy tube placed. No complication. Slight interval improvement in aeration . Madi Mccartney MD on October 09, 2017 at 13:30 Board Certified Radiologist. This report was verified electronically.
--- NOTE | 2017-10-09 14:41 | PD.CONS ---
HPI History of Present Illness This is a 27 year old male with hx IVDU who presented with body aches, diarrhea , SOB and was found to have heart valve vegetations and endocarditis. He is intubated and sedated on a vent. Having fluid overload, now on dialysis. s/p 2 chest tubes inserted. GI has been consulted for anemia requiring transfusion , s/p 4 x PRBC and one pending. No prior hx GIB. No reported bleeding currently. + family hx spherocytosis. hx obtained from EMR, pt's mother at bedside. (Kierra Paul) PFSH Past Medical History IVDU asthma strep throat Past Surgical History none (Kierra Paul) Coded Allergies: erythromycin base (Verified Allergy, Severe, Nausea/Vomiting, 10/03/17) raspberry (Unverified Allergy, Mild, 10/03/17) Family History spherocytosis - mother and aunt Social History IVDU, last used heroin 2m ago per EMR + tobacco use (Kierra Paul) Review of Systems noncontributory (Kierra Paul) GI Exam Vitals I&O Vital Signs Date Time Temp Pulse Resp B/P (MAP) Pulse Ox O2 Delivery O2 Flow Rate FiO2 10/09/17 12:19 100 40 10/09/17 12:00 91 10/09/17 12:00 40 10/09/17 12:00 98.9 91 22 109/57 (74) 99 10/09/17 10:00 95 10/09/17 08:34 100 40 10/09/17 08:00 98.6 96 16 110/55 (73) 96 10/09/17 08:00 40 10/09/17 08:00 96 10/09/17 06:00 94 10/09/17 04:59 100 40 10/09/17 04:00 40 10/09/17 04:00 97.5 96 16 102/55 (71) 97 10/09/17 04:00 96 10/09/17 02:09 100 40 10/09/17 02:00 95 10/09/17 01:57 96 10/09/17 00:00 99.1 97 18 102/55 (71) 100 10/09/17 00:00 97 10/09/17 00:00 40 10/08/17 23:35 99 40 10/08/17 22:00 107 10/08/17 20:40 99 40 10/08/17 20:00 107 10/08/17 20:00 100.9 107 16 111/58 (75) 99 10/08/17 20:00 40 10/08/17 19:00 100.8 107 18 112/56 99 10/08/17 18:00 106 10/08/17 16:00 40 10/08/17 16:00 112 10/08/17 16:00 101.2 112 15 110/55 (73) 100 I/O 10/08/17 10/08/17 10/08/17 10/09/17 10/09/17 10/09/17 07:00 15:00 23:00 07:00 15:00 23:00 Intake Total 923 ml 430 ml 1204 ml 1803 ml 450 ml Output Total 550 ml 4360 ml 450 ml Balance 373 ml 430 ml -3156 ml 1353 ml 450 ml IV Total 420 ml 200 ml 850 ml Tube Feeding 573 ml 394 ml 553 ml Packed Cells 400 ml 400 ml Blood Product IV Normal Saline Flush 10 ml 10 ml 50 ml Tube Irrigant 400 ml Other 350 ml 200 ml Output Urine Total 550 ml 350 ml 450 ml Chest Tube Drainage Total 0 ml 10 ml Hemodialysis 4000 ml # Bowel Movements 1 0 Imaging Last Impressions Chest X-Ray 10/09/17 0600 Signed Impressions: Service Date/Time: September 03:51 - CONCLUSION: No significant change has occurred. Chadwick Diaz MD Chest Tube Insertion 10/06/17 0000 Signed Impressions: Service Date/Time: Friday, October 06, 2017 15:37 - CONCLUSION: Uncomplicated chest tube placement as above. Emerson Hui MD Chest CT 10/04/17 0000 Signed Impressions: Service Date/Time: Wednesday, October 04, 2017 21:18 - CONCLUSION: Abnormal diffuse airspace opacities throughout both lungs with bilateral lower lobe consolidation and patchy focal areas of consolidation the remainder of the lungs. There is also bilateral pleural effusions with probable loculation. Mat Alejandra MD Abdomen/Pelvis CT 10/04/17 0000 Signed Impressions: Service Date/Time: Wednesday, October 04, 2017 21:21 - CONCLUSION: 1. Severe hepatosplenomegaly without focal lesion. 2. Free fluid in the pelvis. 3. Abnormal lower lungs and pleural effusions. 4. Prominent varices about the splenic vein. Mat Alejandra MD Laboratory Test 10/09/17 05:00 White Blood Count 9.6 TH/MM3 Red Blood Count 2.29 MIL/MM3 Hemoglobin 6.8 GM/DL Hematocrit 19.5 % Mean Corpuscular Volume 85.3 FL Mean Corpuscular Hemoglobin 29.5 PG Mean Corpuscular Hemoglobin Concent 34.6 % Red Cell Distribution Width 21.0 % Platelet Count 114 TH/MM3 Mean Platelet Volume 8.2 FL Neutrophils (%) (Auto) 84.3 % Lymphocytes (%) (Auto) 8.3 % Monocytes (%) (Auto) 5.2 % Eosinophils (%) (Auto) 1.9 % Basophils (%) (Auto) 0.3 % Neutrophils # (Auto) 8.1 TH/MM3 Lymphocytes # (Auto) 0.8 TH/MM3 Monocytes # (Auto) 0.5 TH/MM3 Eosinophils # (Auto) 0.2 TH/MM3 Basophils # (Auto) 0.0 TH/MM3 CBC Comment DIFF FINAL Differential Comment Blood Urea Nitrogen 58 MG/DL Creatinine 4.56 MG/DL Random Glucose 124 MG/DL Total Protein 7.8 GM/DL Albumin 1.9 GM/DL Calcium Level 7.1 MG/DL Magnesium Level 2.9 MG/DL Alkaline Phosphatase 327 U/L Aspartate Amino Transf (AST/SGOT) 121 U/L Alanine Aminotransferase (ALT/SGPT) 37 U/L Total Bilirubin 1.8 MG/DL Sodium Level 140 MEQ/L Potassium Level 5.0 MEQ/L Chloride Level 106 MEQ/L Carbon Dioxide Level 23.6 MEQ/L Anion Gap 10 MEQ/L Estimat Glomerular Filtration Rate 16 ML/MIN Protein Corrected Calcium 6.8 MG/DL Date/Time Source Procedure Growth Status 10/07/17 05:07 Blood Peripheral Aerobic Blood Culture - Preliminary Staphylococcus Aureus Resulted 10/07/17 05:07 Blood Peripheral Anaerobic Blood Culture - Preliminary NO GROWTH IN 2 DAYS Resulted 10/06/17 15:50 Fluid Pleural Fluid Fungal Smear - Final NO FUNGAL ELEMENTS SEEN. Resulted 10/06/17 15:50 Fluid Pleural Fluid Fungal Culture Pending Resulted 10/04/17 03:49 Sputum Expectorated Sputum Gram Stain - Final Complete 10/04/17 03:49 Sputum Expectorated Sputum Sputum Culture - Final HEAVY GROWTH NORMAL RESPIRATORY RHIANNON Complete 10/03/17 21:30 Urine Random Urine Legionella Antigen - Final PRESUMPTIVE NEGATIVE FOR LEGIONELLA P... Complete 10/03/17 21:30 Urine Random Urine Streptococcus pneumoniae Antigen (M - Final PRESUMPTIVE NEGATIVE FOR STREPTOCOCCU... Complete Physical Examination HEENT: normocephalic; atraumatic; no jaundice. 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 2/2 sepsis, hemodilution, spherocytosis? no obvious bleeding hemoccult pending. + family hx spherocytosis. CT showed hepatosplenomegaly severe, splenic vein varices s/p 4 X PRBC, 5th unit pending. - elevated LFTs - unclear etiology could be shock liver. he is + hep c ab. - septic emboli, respiratory failiure, IVDU, fluid overload, endocarditis and valve vegetations, ZEUS - CT surgery, ID, nephrology following PLAN - await hemoccult - monitor for bleeding - monitor HH - transfuse as needed - hcv quant pending - supportive care pt seen by myself and Dr Xiong and this note is written on his behalf (Kierra Paul) Physician Comments Patient seen and examined Agree with above Continue with current supportive care Monitor labs Probably the anemia is multifactorial The hepatosplenomegaly with elevated liver function tests will be worked up etiology unclear may require liver biopsy at some point (Trino Xiong MD) Kierra Paul Oct 09, 2017 14:41 Trino Xiong MD Oct 09, 2017 19:22
[2017-10-09 15:19] LABS: TOTAL PROTEIN,PLEURAL FLUID 4.6 GM/DL
[2017-10-09 15:58] LABS: PLEURAL FLUID EOS 3 %; PLEURAL FLUID LYMPHS 9 %; PLEURAL FLUID MONOS 4 %; PLEURAL FLUID POLYS (SEGS) 84 %
[2017-10-09 16:00] LABS: PLEURAL FLUID RBC 27716 /MM3 (0-0); PLEURAL FLUID WBC 535 /MM3 (0-10)
--- NOTE | 2017-10-09 18:59 | HHI.NPPN ---
Subjective History of Present Illness Patient is 27-year-old male who reported to ER with body aches, 7 days of diarrhea with development fever. Past medical history of IV drug use. Patient is sedated and ventilated FiO2 at 40 %. Nephrology is consulted for ZEUS and fluid over load status. Patients creatinine is 3.02 and GFR 25ml/min. Patient is UOP at 800cc for last 24 hours. Weight has increased by over 10 kg since admission. IVF's have been stopped and lasix has been given. Patient has endocarditis with large tricuspid valve vegetation, and pulmonic vegetation. Noted to have bacteremia with hypotension with SBP in the 90's. Additional Remarks Patient remain intubated and sedated. Objective Data Data 10/09/17 10/10/17 19:00 07:00 Intake Total 2205 ml Output Total 1900 ml Balance 305 ml IV Total 520 ml Tube Feeding 495 ml Packed Cells 800 ml Blood Product IV Normal Saline Flush 50 ml Tube Irrigant 240 ml Other 100 ml Output Urine Total 750 ml Chest Tube Drainage Total 1150 ml # Bowel Movements 0 Vital Signs Date Time Temp Pulse Resp B/P (MAP) Pulse Ox O2 Delivery O2 Flow Rate FiO2 10/09/17 18:00 99 10/09/17 16:17 100 40 10/09/17 16:00 88 10/09/17 16:00 40 10/09/17 16:00 99.9 100 16 108/57 (74) 98 10/09/17 14:00 90 10/09/17 12:19 100 40 10/09/17 12:00 91 10/09/17 12:00 40 10/09/17 12:00 98.9 91 22 109/57 (74) 99 10/09/17 10:00 95 10/09/17 08:34 100 40 10/09/17 08:00 98.6 96 16 110/55 (73) 96 10/09/17 08:00 40 10/09/17 08:00 96 10/09/17 06:00 94 10/09/17 04:59 100 40 10/09/17 04:00 40 10/09/17 04:00 97.5 96 16 102/55 (71) 97 10/09/17 04:00 96 10/09/17 02:09 100 40 10/09/17 02:00 95 2/15/18 01:57 96 10/09/17 00:00 99.1 97 18 102/55 (71) 100 10/09/17 00:00 97 10/09/17 00:00 40 10/08/17 23:35 99 40 10/08/17 22:00 107 10/08/17 20:40 99 40 10/08/17 20:00 107 10/08/17 20:00 100.9 107 16 111/58 (75) 99 10/08/17 20:00 40 10/08/17 19:00 100.8 107 18 112/56 99 -: 10/09/17 1525 10/09/17 0500 Microbiology 10/09/17 Fungal Smear, Received Pending 10/09/17 Fungal Culture, Received Pending 10/09/17 Acid Fast Stain, Received Pending 10/09/17 Mycobacterial Culture, Received Pending 10/09/17 Gram Stain, Received Pending 10/09/17 Body Fluid Culture, Received Pending Physical Exam General Appearance: Comfortable Pulmonary Resp Exam: No Distress, Rhonchi, Decreased Bases Cardiology CV Exam: Regular Gastrointestinal/Abdomen GI Exam: Soft, Non-Tender, Bowel Sounds Present Integumentary Skin Exam: Clear, Warm Extremeties Extremities Exam: Moderate Edema Neurologic Neuro Exam: Sedated Assessment/Plan Problem List: (1) ZEUS (acute kidney injury) ICD Codes: N17.9 - Acute kidney failure, unspecified Plan: ZEUS most likely ATN from sepsis and low blood pressure. Other differential will be ATN, Acute interstitial nephritis, and Post infectious GN,unlikely. Patient with over 10 kg weight gain. UOP over the past 24 hours at 750 ml Significant anasarca Calcium continues to be low replacement given Continue to Monitor I+O Will continue to monitor labs and urinary output HD today and as needed. Watch for renal recovery. (2) Sepsis ICD Codes: A41.9 - Sepsis, unspecified organism Status: Acute Plan: Antibiotics per ID (3) Endocarditis ICD Codes: I38 - Endocarditis, valve unspecified Status: Acute Problem Qualifiers (1) Sepsis: Qualified Codes: A41.9 - Sepsis, unspecified organism (2) Endocarditis: Darek Tapia MD Oct 09, 2017 18:59
[2017-10-09] MEDS: EPOETIN ALFA 10,000 UNITS/ML VIAL IV PUSH PRN (20:06)
[2017-10-09] MEDS: HEPARIN SODIUM - IV 10,000 UNITS/10 ML VIAL PRN (20:07)
[2017-10-09] MEDS: GENTAMICIN SULFATE 20 MG/2 ML VIAL OTHER PRN (20:07)
[2017-10-09 23:32] LABS: ALBUMIN 2.1 GM/DL (3.4-5.0); DIRECT BILIRUBIN ADULT 1.6 MG/DL (0.0-0.2)
[2017-10-09 23:49] LABS: INDIRECT BILIRUBIN 0.3 MG/DL (0.0-0.8); TOTAL BILIRUBIN ADULT 1.9 MG/DL (0.2-1.0); TOTAL PROTEIN 7.9 GM/DL (6.4-8.2)
[2017-10-10] VITALS (18 sets, daily range): BP systolic 110–124; BP diastolic 56–68; PULSE 98–109; RESP 16–22; TEMP 98.5–100; O2SAT 92–100
--- NOTE | 2017-10-10 02:09 | RADRPT ---
EXAM DATE/TIME: 10/10/2017 01:39 [facility] COMPARISON: CHEST SINGLE AP, October 09, 2017, 12:33. INDICATIONS : Evaluate for pneumonia- Respiratory failure MEDICAL HISTORY : None. SURGICAL HISTORY : None. ENCOUNTER: Subsequent ACUITY: 4 - 6 days PAIN SCORE: Non-responsive. LOCATION: Bilateral chest FINDINGS: Lines and tubes are present not significantly changed. Left basilar opacity is present may be due to a combination of consolidation and or pleural effusion. There is also perivascular parenchymal proces s bilaterally extending to both lung bases probable pulmonary edema. No definite pneumothorax is seen for technique. CONCLUSION: No appreciable change. All Kim MD on October 10, 2017 at 2:06 Board Certified Radiologist. This report was verified electronically.
[2017-10-10] MEDS: CHLORHEXIDINE GLUCONATE 2 % 1 PACK (2 CLOTHS) TOP SCH (03:35)
[2017-10-10] MEDS: RESP: ALBUTEROL 2.5 MG/IPRATROPIUM 0.5 MG NEB (SCH) NEB ×4 (04:00→23:01)
[2017-10-10] MEDS: PROPOFOL 1000 MG/100 ML INJ 100 ML IV PRN ×3 (04:01→20:23)
[2017-10-10] MEDS: CEFTAROLINE INJ 300 MG in SODIUM CHLORIDE 0.9% INJ 100 ML IV SCH ×2 (04:02→14:35)
[2017-10-10] MEDS: HEPARIN SODIUM - SQ 10,000 UNITS/ML VIAL SQ SCH ×3 (04:58→22:53)
[2017-10-10 05:26] LABS: AUTOMATED NEUTROPHIL # 10.3 TH/MM3 (1.8-7.7); BASOPHIL # 0.1 TH/MM3 (0-0.2); BASOPHIL % 0.4 % (0.0-2.0); EOSINOPHIL # 0.2 TH/MM3 (0-0.4); EOSINOPHIL % 1.7 % (0.0-4.0); HEMATOCRIT 23.9 % (39.0-51.0); HEMOGLOBIN 8.3 GM/DL (13.0-17.0); LYMPH % 5.1 % (9.0-44.0); LYMPHOCYTE # 0.6 TH/MM3 (1.0-4.8); MEAN CELL VOLUME 84.4 FL (80.0-100.0); MEAN CORPUSCULAR HEMOGLOBIN 29.4 PG (27.0-34.0); MEAN CORPUSCULAR HGB CONC 34.8 % (32.0-36.0); MEAN PLATELET VOLUME 8.8 FL (7.0-11.0); MONO % 4.4 % (0.0-8.0); MONOCYTE # 0.5 TH/MM3 (0-0.9); NEUT % 88.4 % (16.0-70.0); PLATELET COUNT 124 TH/MM3 (150-450); RED BLOOD COUNT 2.83 MIL/MM3 (4.50-5.90); RED CELL DISTRIBUTION WIDTH 19.8 % (11.6-17.2); WHITE BLOOD COUNT 11.7 TH/MM3 (4.0-11.0)
[2017-10-10 06:02] LABS: ALKALINE PHOSPHATASE 295 U/L (45-117); ALT (GPT) 29 U/L (12-78); AST (GOT) 83 U/L (15-37); BICARBONATE 27.1 MEQ/L (21.0-32.0); BLOOD UREA NITROGEN 47 MG/DL (7-18); CALCIUM 7.5 MG/DL (8.5-10.1); CHLORIDE 104 MEQ/L (98-107); CREATININE 4.08 MG/DL (0.60-1.30); GLOMERULAR FILTRATION RATE 18 ML/MIN (>89); GLUCOSE,RANDOM 87 MG/DL (74-106); MAGNESIUM 2.7 MG/DL (1.5-2.5); SODIUM (NA) 140 MEQ/L (136-145); TOTAL BILIRUBIN ADULT 1.8 MG/DL (0.2-1.0); TOTAL PROTEIN 8.2 GM/DL (6.4-8.2)
[2017-10-10] MEDS: CHLORHEXIDINE 0.12% (ORAL KIT) 15 ML CUP MT SCH ×2 (07:34→20:00)
[2017-10-10] MEDS: SODIUM CHLORIDE 0.9% FLUSH 10 ML FLUSH IV FLUSH SCH ×2 (07:35→20:15)
[2017-10-10] MEDS: PANTOPRAZOLE SODIUM 40 MG VIAL IV PUSH SCH ×2 (07:35→20:15)
[2017-10-10] MEDS: BENEPROTEIN POWDER 1 PACK OG-TUBE SCH ×3 (07:35→17:52)
[2017-10-10] MEDS: DOCUSATE SODIUM 50 MG/SENNA 8.6 MG TAB PO SCH ×2 (07:36→20:15)
[2017-10-10] MEDS: METHOCARBAMOL 500 MG TAB PO SCH ×4 (07:36→22:53)
[2017-10-10] MEDS: RIFAMPIN 150 MG CAP PO SCH ×2 (07:38→20:15)
[2017-10-10] MEDS: fentaNYL DRIP 250 ML IV PRN ×2 (08:44→22:54)
[2017-10-10] MEDS: FLUTICASONE PROPIONATE 44 MCG/ACT 10.6 GM INHALER INH SCH ×2 (09:00→20:14)
[2017-10-10] MEDS: ALBUMIN 25% INJ 100 ML IV SCH ×2 (10:00→22:54)
--- NOTE | 2017-10-10 10:51 | HHI.CCPN ---
Subjective Remarks/Hospital Course 27-year-old male with remote history of IV drug abuse, states he last used heroin 2 months ago, presents for evaluation of 8 days of body aches, 7 days of diarrhea with development of subjective fever yesterday. Patient denies any nausea or vomiting. He denies any chest pain. States that he is short of breath and feels anxious. This has developed within the last 24 hours. Patient does have a cough with clear sputum. Denies any prior history of endocarditis. Denies any abdominal pain. Does report some left back pain, worse while lying flat. He is well reports generalized weakness. 10/04/17: He is critically ill, remains febrile up to 103, tachycardic diaphoretic. large tricuspid valve vegetation on bedside echo, formal echo pending. Infectious disease consulted, CT surgery consult ordered. D/W Dr. Macias and Dr. Charles. CARMEN/enzyme chemist consult ordered. Hb 6.6 getting 2U PRBC 10/05: Remains critically ill intubated sedated. TE on yesterday TEF 40-45%. Large mobile vegetation noted on the tricuspid valve, may be 2 separate vegetations, measures overall 4cm x 1.7cm. Probable mobile density noted on the pulmonic valve. CT of the chest shows extensive septic emboli and consolidation , with loculated appearing effusion on the left base. Dr. Charles CT surgery recommends 4-6 weeks of IV antibiotics followed by repeat echo, considering surgery at that time if no improvement 10/06: Worsening CXR, with bibasilar worsening infiltrates and effusion. IR to place CT-guided left chest tube today for loculated effusion. Fluid overloaded approximately 8 kg. IV Lasix 40 mg x1. MSSA bacteremia persists 10/07: Remains intubated sedated remains critical severe volume overload with worsening renal function creatinine 3, weight up by at least [address] him on Bumex infusion and consult nephrology. Patient remains slightly oliguric 800 mL urine output in 24 hours. Chest x-ray showed bilateral infiltrates and worsening right effusion 10/08: Remains intubated heavily sedated oliguric. Continues to have positive fluid balance creatinine increased to 4.3. Hemoglobin 6.9. Currently on Bumex infusion with not adequate response. Persistently bacteremic. Bilateral infiltrates on chest x-ray with moderate right effusion 10/09: Intubated sedated remains severely fluid overloaded started on hemodialysis yesterday with 4 L removed still positive fluid balance. Hemoglobin 6.81 unit PRBC transfusion ordered along with calcium replacement. GI consulted for further workup. Large pleural effusion on right side plan for pigtail chest tube placement 10/10: Intubated sedated. Had HD with 25L removed yesterday. right chest tube placed yesterday 1.2 L of old blood tinged effusion drained-Gram stain negative. Chest x-ray shows improvement in effusion. Remains severely fluid overloaded still remains 16-17 kg up. Discussed with nephrology plan for HD with maximum fluid removal as tolerated Objective Vital Signs Date Time Temp Pulse Resp B/P (MAP) Pulse Ox O2 Delivery O2 Flow Rate FiO2 10/10/17 08:34 96 40 10/10/17 06:00 108 10/10/17 04:00 99.8 19 114/56 (75) Intake and Output 10/10/17 10/10/17 10/11/17 08:00 16:00 00:00 Intake Total 966 ml Output Total 414 ml Balance 552 ml Result Diagram: 10/10/17 0445 10/10/17 0445 Objective Remarks GENERAL: Well-nourished, well-developed patient. Critically ill, intubated sedated SKIN: Warm and dry. Extensive tattoos limits skin exam. Anasarca HEAD: Normocephalic. EYES: No scleral icterus. No injection or drainage. ENT: Orotracheally intubated NECK: Supple, trachea midline. No JVD or lymphadenopathy. RIJ Vascath in place CARDIOVASCULAR: S1-S2 normal with systolic murmur at the left sternal border. Large TV vegetation on bedside echo RESPIRATORY: Air entry is equal bilaterally, coarse rhonchi and crackles. Bilateral pig tail chest tubes in place GASTROINTESTINAL: Abdomen soft, non-tender, nondistended. MUSCULOSKELETAL: No cyanosis. Significant anasarca NEURO EXAM: The patient is intubated heavily sedated, Pupils are round, reactive to light. Moves extremities spontaneously and follows commands when sedation is lightened A/P Assessment and Plan Neuro IVDU: - Propofol Versed and fentanyl for vent synchrony and sedation - Watch closely for withdrawal - Daily sedation medication Resp: Acute hypoxemic respiratory failure Extensive septic emboli, consolidation of the lung Loculated left effusion, large right effusion - Continue ventilator support, no vent weaning until respiratory status, fluid overload improved - IR placed left chest tube 10/06 with more than 1 L exudative fluid out. - Placed right-sided pigtail chest tube at the bedside 10/09, brown tinged fluid approximately 1.1 L initial output - Discussed with cardiothoracic surgery Dr. Charlse, patient may need decortication, if not adequately drained - Broad-spectrum antibiotics per ID, see below - DuoNeb q6hr and PRN CVS: Large tricuspid valve vegetation, and pulmonic vegetation Severe sepsis Fluid overload - Bedside echo shows mild tricuspid vegetation - Cardiology and CT surgery following - CARMEN 10/04: EF 40-45%. Large mobile vegetation on tricuspid valve, may be 2 separate vegetations, measures overall 4cm x 1.7cm. - Probable mobile density noted on the pulmonic valve. - See ID section for ABX - Dr. Charles CT surgery recommends 4-6 weeks of antibiotics and repeat echo - Fluid up by >16 kg, DC Bumex gtt-HD started 10/08. D/W Dr. Tapia- will repeat HD with fluid removal today GI: Hepatosplenomegaly Diarrhea - IV famotidine changed to Protonix due to persistent anemia - Tube feeds with Jevity - Check C Diff, if diarrhea persist, check stool for occult blood - Hepatitis C reactive - GI consulted - patient has hepatosplenomegaly, appreciate Dr. Xiong's input : Acute kidney failure with fluid overload Dehydration on admission - Currently fluid overloaded with worsening bilateral effusion. - DCd Bumex infusion started hemodialysis 10/08, see above - Strict I's and O's, Monitor trend of creatinine - Electrolytes replacement per ICU protocol ID: Tricuspid and pulmonic valve endocarditis Septic emboli to the lung Severe sepsis MSSA bacteremia - Discussed with Dr. Charles CT surgery 10/05/17 - He recommends 4-6 weeks of IV antibiotics with repeat echo, consideration for surgery if Vegetations persists - Ceftaroline, Cefazolin, Rifampin per ID Dr. Macias - Persistent MSSA bacteremia, cultures reviewed - F/u HIV, Hepatitis panel. Hepatitis C reactive Endo: -Electrolyte replacement per protocol Heme: Anemia requiring transfusion Thrombocytopenia - 1U PRBC today. LDH mildly elevated and haptoglobin normal - Monitor CBC, Coags - Thrombocytopenia most likely from sepsis and DIC DVT GI prophylaxis - TEDs SCDs - Started Heparin 5000 U sq q8 10/07, holding 10/08 due to blood loss - Protonix 40 q12 Critical Care: The total critical care time was 35 minutes. Time to perform other separately billable procedures was not included in the critical care time. Patient remains critical with multiorgan failure and severe septic shock. He has huge tricuspid valve and probably pulmonic valve vegetations. His prognosis appears guarded. Renal failure worsening hemodialysis to be started , also transfuse for anemia. Respiratory failure and fluid overload persist. Jaki Barraza MD Oct 10, 2017 10:50
--- NOTE | 2017-10-10 12:16 | PD.CARD.PN ---
Subjective Subjective Remarks No events overnight Sedation decreasing Hgb stable Objective Medications Current Medications Medications (Trade) Dose Ordered Sig/Willem Route Start Time Stop Time Status Last Admin (NS Flush) 2 ml UNSCH PRN IV FLUSH 10/03/17 21:15 10/05/17 21:09 (NS Flush) 2 ml BID IV FLUSH 10/04/17 09:00 10/10/17 07:35 (Tylenol) 650 mg Q6H PRN PO 10/03/17 21:15 10/08/17 15:33 (Morphine Inj) 2 mg Q2H PRN IV PUSH 10/03/17 21:15 10/04/17 12:54 (Ativan Inj) 1 mg Q1H PRN IV PUSH 10/03/17 21:15 10/04/17 12:14 (Zofran Inj) 4 mg Q6H PRN IV PUSH 10/03/17 21:15 (Restoril) 15 mg HS PRN PO 10/03/17 21:15 (Duoneb Neb) 1 ampule Q2HR NEB PRN INH 10/03/17 21:15 Miscellaneous Information 1 Q361D XX 10/03/17 21:15 (Chlorhexidine 2% Cloth) Taper DAILY@04 TOP 10/04/17 04:00 09/30/18 03:59 10/08/17 04:00 (Chlorhexidine 2% Cloth) 3 pack UNSCH PRN TOP 10/03/17 21:15 (Renita-Colace) 1 tab BID PO 10/04/17 09:00 10/10/17 07:36 (Milk Of Magnesia Liq) 30 ml Q12H PRN PO 10/03/17 21:15 (Senokot) 17.2 mg Q12H PRN PO 10/03/17 21:15 (Dulcolax Supp) 10 mg DAILY PRN RECTAL 10/03/17 21:15 (Lactulose Liq) 30 ml DAILY PRN PO 10/03/17 21:15 (Flovent Hfa 44 Mcg Inh) 2 puff BID INH 10/04/17 09:00 (Robaxin) 500 mg QID PO 10/04/17 09:00 10/10/17 07:36 Acetaminophen 100 ml @ 400 mls/hr Q6H PRN IV 10/04/17 12:00 10/08/17 21:18 (Peridex 0.12% Liq) 15 ml BID@08,20 MT 10/04/17 20:00 10/10/17 07:34 Propofol 100 ml @ 3 mls/hr TITRATE PRN IV 10/04/17 14:45 10/10/17 04:01 Midazolam HCl 100 ml @ 2 mls/hr TITRATE PRN IV 10/04/17 14:45 10/09/17 02:04 Fentanyl Citrate 250 ml @ 5 mls/hr TITRATE PRN IV 10/04/17 14:45 10/10/17 08:44 (Beneprotein Powder) 2 pack TID OG-TUBE 10/05/17 13:00 10/10/17 07:35 Vasopressin 40 units/Dextrose 100 ml @ 6 mls/hr [id number] IV 10/06/17 09:00 (Duoneb Neb) 1 ampule Q6HR NEB NEB 10/07/17 10:00 10/10/17 08:32 Albumin Human 100 ml @ 60 mls/hr Q12H IV 10/07/17 10:00 10/10/17 10:00 (Heparin Inj) 5,000 units Q8HR SQ 10/07/17 14:00 10/10/17 04:58 (Rifampin) 300 mg Q12HR PO 10/08/17 11:30 10/10/17 07:38 Sodium Chloride 1,000 ml @ 0 mls/hr Q0M PRN OTHER 10/08/17 10:33 (Heparin Inj) 8,000 units UNSCH PRN IV FLUSH 10/08/17 10:45 Sodium Chloride 1,000 ml @ 200 mls/hr Q5H PRN IV 10/08/17 11:15 Sodium Chloride 1,000 ml @ 0 mls/hr Q0M PRN OTHER 10/08/17 11:15 (Mannitol Inj) 12.5 gm UNSCH PRN IV 10/08/17 11:15 Albumin Human 100 ml @ 60 mls/hr UNSCH PRN IV 10/08/17 11:30 (NS Flush) 5 ml UNSCH PRN IV FLUSH 10/08/17 11:15 (Heparin Inj) UNSCH PRN .XX 10/08/17 11:15 10/09/17 20:07 (Gentamicin Inj) 20 mg UNSCH PRN OTHER 10/08/17 11:15 10/09/17 20:07 (Zofran Inj) 4 mg UNSCH PRN IV PUSH 10/08/17 11:15 (Tylenol) 650 mg UNSCH PRN PO 10/08/17 11:15 (Benadryl) 25 mg UNSCH PRN PO 10/08/17 11:15 (Nitrostat Sl) 0.4 mg UNSCH PRN SL 10/08/17 11:30 (Catapres) 0.1 mg UNSCH PRN PO 10/08/17 11:30 (Epogen Inj) 10,000 units UNSCH PRN IV PUSH 10/08/17 11:30 10/09/17 20:06 (Gelfoam 12 Mm/7 Mm Top) 1 foam UNSCH PRN TOP 10/08/17 11:30 Cefazolin Sodium 1000 mg/Sodium Chloride 100 ml @ 200 mls/hr Q8H IV 10/09/17 10:00 10/10/17 09:59 (Protonix Inj) 40 mg Q12HR IV PUSH 10/09/17 12:45 10/10/17 07:35 Ceftaroline Fosamil 300 mg/ Sodium Chloride 100 ml @ 100 mls/hr Q12H IV 10/10/17 01:00 10/10/17 04:02 Vital Signs / I&O Vital Signs Date Time Temp Pulse Resp B/P (MAP) Pulse Ox O2 Delivery O2 Flow Rate FiO2 10/10/17 11:38 96 40 10/10/17 10:00 109 10/10/17 08:34 96 40 10/10/17 08:00 108 10/10/17 08:00 99.3 106 19 115/57 (76) 96 10/10/17 08:00 40 10/10/17 06:00 108 10/10/17 04:35 96 40 10/10/17 04:00 40 10/10/17 04:00 99.8 109 19 114/56 (75) 96 10/10/17 04:00 109 10/10/17 02:00 98 10/10/17 01:05 92 40 10/10/17 00:00 40 10/10/17 00:00 98.5 100 16 110/59 (76) 100 10/10/17 00:00 100 10/09/17 22:00 99 10/09/17 21:13 100 40 10/09/17 20:00 40 10/09/17 20:00 98.4 95 16 160/59 (92) 100 10/09/17 20:00 95 10/09/17 18:00 99 10/09/17 16:17 100 40 10/09/17 16:00 88 10/09/17 16:00 40 10/09/17 16:00 99.9 100 16 108/57 (74) 98 10/09/17 14:00 90 10/09/17 12:19 100 40 I/O 10/09/17 10/09/17 10/09/17 10/10/17 10/10/17 10/10/17 07:00 15:00 23:00 07:00 15:00 23:00 Intake Total 1803 ml 1370 ml 935 ml 966 ml 200 ml Output Total 450 ml 4400 ml 414 ml Balance 1353 ml 1370 ml -3465 ml 552 ml 200 ml IV Total 850 ml 520 ml 100 ml 200 ml Tube Feeding 553 ml 495 ml 866 ml Packed Cells 800 ml Blood Product IV Normal Saline Flush 50 ml Tube Irrigant 400 ml 240 ml 100 ml Other 100 ml Output Urine Total 450 ml 750 ml 350 ml Chest Tube Drainage Total 1150 ml 64 ml Hemodialysis 2500 ml # Bowel Movements 0 Physical Exam GENERAL: Intubated and sedated SKIN: Warm and dry. HEAD: Atraumatic. Normocephalic. EYES: Pupils equal and round. No scleral icterus. No injection or drainage. ENT: No nasal bleeding or discharge. Mucous membranes pink and moist. NECK: Trachea midline. No JVD. CARDIOVASCULAR: Regular rate and rhythm. Mildly tachycardic RESPIRATORY: No accessory muscle use. Decreased breath sounds GASTROINTESTINAL: Abdomen soft, non-tender, nondistended. Hepatic and splenic margins not palpable. MUSCULOSKELETAL: Extremities without clubbing, cyanosis, or edema. No obvious deformities. NEUROLOGICAL: Intubated and sedated Laboratory Laboratory Tests Test 10/09/17 15:25 10/09/17 22:15 10/10/17 04:45 Hemoglobin 8.3 GM/DL 8.3 GM/DL Iron Level 19 MCG/DL Ferritin 1217 NG/ML Total Bilirubin 1.9 MG/DL 1.8 MG/DL Direct Bilirubin 1.6 MG/DL Indirect Bilirubin 0.3 MG/DL Aspartate Amino Transf (AST/SGOT) 78 U/L 83 U/L Alanine Aminotransferase (ALT/SGPT) 30 U/L 29 U/L Alkaline Phosphatase 274 U/L 295 U/L Total Protein 7.9 GM/DL 8.2 GM/DL Albumin 2.1 GM/DL 2.0 GM/DL White Blood Count 11.7 TH/MM3 Red Blood Count 2.83 MIL/MM3 Hematocrit 23.9 % Mean Corpuscular Volume 84.4 FL Mean Corpuscular Hemoglobin 29.4 PG Mean Corpuscular Hemoglobin Concent 34.8 % Red Cell Distribution Width 19.8 % Platelet Count 124 TH/MM3 Mean Platelet Volume 8.8 FL Neutrophils (%) (Auto) 88.4 % Lymphocytes (%) (Auto) 5.1 % Monocytes (%) (Auto) 4.4 % Eosinophils (%) (Auto) 1.7 % Basophils (%) (Auto) 0.4 % Neutrophils # (Auto) 10.3 TH/MM3 Lymphocytes # (Auto) 0.6 TH/MM3 Monocytes # (Auto) 0.5 TH/MM3 Eosinophils # (Auto) 0.2 TH/MM3 Basophils # (Auto) 0.1 TH/MM3 CBC Comment DIFF FINAL Differential Comment Blood Urea Nitrogen 47 MG/DL Creatinine 4.08 MG/DL Random Glucose 87 MG/DL Calcium Level 7.5 MG/DL Magnesium Level 2.7 MG/DL Sodium Level 140 MEQ/L Potassium Level 4.6 MEQ/L Chloride Level 104 MEQ/L Carbon Dioxide Level 27.1 MEQ/L Anion Gap 9 MEQ/L Estimat Glomerular Filtration Rate 18 ML/MIN Imaging Last 24 hours Impressions Chest X-Ray 10/10/17 0600 Signed Impressions: Service Date/Time: Tuesday, October 10, 2017 01:39 - CONCLUSION: No appreciable change. All Kim MD Assessment and Plan Problem List: (1) Sepsis ICD Codes: A41.9 - Sepsis, unspecified organism Status: Acute (2) Endocarditis ICD Codes: I38 - Endocarditis, valve unspecified Status: Acute (3) Tobacco abuse ICD Codes: Z72.0 - Tobacco use (4) IV drug abuse ICD Codes: F19.10 - Other psychoactive substance abuse, uncomplicated Assessment and Plan 1) Severe sepsis secondary to endocarditis Per critical care/ID Appears to have both a large tricuspid valve as well as a moderate pulmonic valve endocarditis Anti-biotics per ID CT surgery evaluation, con't anti-biotics and repeat echo in 4-6 weeks 2) Tobacco abuse 3) IV heroine abuse 4) VDRF 5) Pleural effusions 6) Attempted to diuresis with Bumex drip Stopped Vascath placed for HD HD 4L off two days ago and 2.5L off yesterday 7) Will see PRN, call with questions Problem Qualifiers (1) Sepsis: Qualified Codes: A41.9 - Sepsis, unspecified organism (2) Endocarditis: Zen Roberts DO Oct 10, 2017 12:16
[2017-10-10] MEDS: ALBUMIN 25% INJ 100 ML IV PRN (13:17)
[2017-10-10 13:43] LABS: ANA SCREEN POS (NEG)
[2017-10-10] MEDS: GENTAMICIN SULFATE 20 MG/2 ML VIAL OTHER PRN (14:07)
--- NOTE | 2017-10-10 14:07 | HHI.IDPN ---
Subjective Subjective Remarks is a 27 y/o CM with remote history of IV drug abuse, states he last used heroin 2 months ago, presents for evaluation of body aches, 7 days of diarrhea with development of subjective fever yesterday. Patient denies any nausea or vomiting. He denies any chest pain. This has developed within the last 24 hours. Patient does have a cough with clear sputum. Denies any prior history of endocarditis. Denies any abdominal pain. Does report some left back pain, worse while lying flat. He is well reports generalized weakness. Patient met criteria for sepsis on admission. Flu antigen negative. CXR with bilateral infiltrates. performed a bedside 2D ECHO and verbally reported a large ~4.5 cm vegetation on TV. CXR suspicious for septic emboli. Blood cultures drawn but it appears patient has received augmentin at some point and cultures may possibly be negative. At the time of my evaluation patient is in the ICU, appears in respiratory distress there is a plan for intubation and CARMEN today. UO ok. No diarrhea, no rash. Not on pressors. ID is consulted for evaluation and Mment of Severe Sepsis and Endocarditis. Overnight events reviewed. Fevers defervesced since Teflaro, Ancef and Rifampin combo started. Pt has 3 vegetations on tricuspid and pulmonic valve. No rash No diarrhea UO low. Undergoing HD for 3rd day in row today. Remains on vent. FiO2 40%, PEEP 5. Secretions moderate pale yellow. Has Bilateral CTs in place. Antibiotics Oxacillin IV Lines Line sites with no e.o infection Past Medical History Past Medical History Asthma Past Surgical History No surgical history per records. Allergies: Coded Allergies: erythromycin base (Verified Allergy, Severe, Nausea/Vomiting, 10/03/17) raspberry (Unverified Allergy, Mild, 10/03/17) Objective . Vital Signs Date Time Temp Pulse Resp B/P (MAP) Pulse Ox O2 Delivery O2 Flow Rate FiO2 10/10/17 12:00 100.0 109 22 124/65 (84) 96 10/10/17 12:00 109 10/10/17 12:00 40 10/10/17 11:38 96 40 10/10/17 10:00 109 10/10/17 08:34 96 40 10/10/17 08:00 108 10/10/17 08:00 99.3 106 19 115/57 (76) 96 10/10/17 08:00 40 10/10/17 06:00 108 10/10/17 04:35 96 40 10/10/17 04:00 40 10/10/17 04:00 99.8 109 19 114/56 (75) 96 10/10/17 04:00 109 10/10/17 02:00 98 10/10/17 01:05 92 40 10/10/17 00:00 40 10/10/17 00:00 98.5 100 16 110/59 (76) 100 10/10/17 00:00 100 10/09/17 22:00 99 10/09/17 21:13 100 40 10/09/17 20:00 40 10/09/17 20:00 98.4 95 16 160/59 (92) 100 10/09/17 20:00 95 10/09/17 18:00 99 10/09/17 16:17 100 40 10/09/17 16:00 88 10/09/17 16:00 40 10/09/17 16:00 99.9 100 16 108/57 (74) 98 10/10/17 10/10/17 10/11/17 15:00 23:00 07:00 Intake Total 300 ml Balance 300 ml IV Total 300 ml . Laboratory Tests Test 10/09/17 05:00 10/09/17 15:25 10/10/17 04:45 White Blood Count 9.6 TH/MM3 11.7 TH/MM3 Red Blood Count 2.29 MIL/MM3 2.83 MIL/MM3 Hemoglobin 6.8 GM/DL 8.3 GM/DL 8.3 GM/DL Hematocrit 19.5 % 23.9 % Mean Corpuscular Volume 85.3 FL 84.4 FL Mean Corpuscular Hemoglobin 29.5 PG 29.4 PG Mean Corpuscular Hemoglobin Concent 34.6 % 34.8 % Red Cell Distribution Width 21.0 % 19.8 % Platelet Count 114 TH/MM3 124 TH/MM3 Mean Platelet Volume 8.2 FL 8.8 FL Neutrophils (%) (Auto) 84.3 % 88.4 % Lymphocytes (%) (Auto) 8.3 % 5.1 % Monocytes (%) (Auto) 5.2 % 4.4 % Eosinophils (%) (Auto) 1.9 % 1.7 % Basophils (%) (Auto) 0.3 % 0.4 % Neutrophils # (Auto) 8.1 TH/MM3 10.3 TH/MM3 Lymphocytes # (Auto) 0.8 TH/MM3 0.6 TH/MM3 Monocytes # (Auto) 0.5 TH/MM3 0.5 TH/MM3 Eosinophils # (Auto) 0.2 TH/MM3 0.2 TH/MM3 Basophils # (Auto) 0.0 TH/MM3 0.1 TH/MM3 CBC Comment DIFF FINAL DIFF FINAL Differential Comment Laboratory Tests Test 10/09/17 05:00 10/09/17 22:15 10/10/17 04:45 Blood Urea Nitrogen 58 MG/DL 47 MG/DL Creatinine 4.56 MG/DL 4.08 MG/DL Random Glucose 124 MG/DL 87 MG/DL Total Protein 7.8 GM/DL 7.9 GM/DL 8.2 GM/DL Albumin 1.9 GM/DL 2.1 GM/DL 2.0 GM/DL Calcium Level 7.1 MG/DL 7.5 MG/DL Magnesium Level 2.9 MG/DL 2.7 MG/DL Alkaline Phosphatase 327 U/L 274 U/L 295 U/L Aspartate Amino Transf (AST/SGOT) 121 U/L 78 U/L 83 U/L Alanine Aminotransferase (ALT/SGPT) 37 U/L 30 U/L 29 U/L Total Bilirubin 1.8 MG/DL 1.9 MG/DL 1.8 MG/DL Sodium Level 140 MEQ/L 140 MEQ/L Potassium Level 5.0 MEQ/L 4.6 MEQ/L Chloride Level 106 MEQ/L 104 MEQ/L Carbon Dioxide Level 23.6 MEQ/L 27.1 MEQ/L Anion Gap 10 MEQ/L 9 MEQ/L Estimat Glomerular Filtration Rate 16 ML/MIN 18 ML/MIN Protein Corrected Calcium 6.8 MG/DL Iron Level 19 MCG/DL Ferritin 1217 NG/ML Direct Bilirubin 1.6 MG/DL Indirect Bilirubin 0.3 MG/DL Microbiology Date/Time Source Procedure Growth Status 10/10/17 10:27 Blood Peripheral Aerobic Blood Culture Pending Received 10/10/17 10:27 Blood Peripheral Anaerobic Blood Culture Pending Received 10/10/17 05:25 Blood Peripheral Aerobic Blood Culture Pending Received 10/10/17 05:25 Blood Peripheral Anaerobic Blood Culture Pending Received 10/09/17 12:00 Fluid Pleural Fluid Fungal Smear - Final NO FUNGAL ELEMENTS SEEN. Resulted 10/09/17 12:00 Fluid Pleural Fluid Fungal Culture Pending Resulted 10/09/17 12:00 Fluid Pleural Fluid Acid Fast Stain Pending Received 10/09/17 12:00 Fluid Pleural Fluid Mycobacterial Culture Pending Received 10/09/17 12:00 Fluid Pleural Fluid Gram Stain - Final Resulted 10/09/17 12:00 Fluid Pleural Fluid Body Fluid Culture - Preliminary NO GROWTH IN 24 HOURS. Resulted Imaging Last Impressions Chest X-Ray 10/04/17 0000 Signed Impressions: Service Date/Time: Wednesday, October 04, 2017 16:11 - CONCLUSION: 1. ET tube in good position. 2. Significant increase in bilateral airspace opacities, now with consolidation in the lower lungs bilaterally. Mat Alejandra MD Chest CT 10/04/17 0000 Signed Impressions: Service Date/Time: Wednesday, October 04, 2017 21:18 - CONCLUSION: Abnormal diffuse airspace opacities throughout both lungs with bilateral lower lobe consolidation and patchy focal areas of consolidation the remainder of the lungs. There is also bilateral pleural effusions with probable loculation. Mat Alejandra MD Abdomen/Pelvis CT 10/04/17 0000 Signed Impressions: Service Date/Time: Wednesday, October 04, 2017 21:21 - CONCLUSION: 1. Severe hepatosplenomegaly without focal lesion. 2. Free fluid in the pelvis. 3. Abnormal lower lungs and pleural effusions. 4. Prominent varices about the splenic vein. Mat Alejandra MD Physical Exam GENERAL: This is a well-nourished, well-developed patient, in no apparent distress. SKIN: No rashes, ecchymoses or lesions. Cool and dry. Multiple tattoos. HEAD: Atraumatic. Normocephalic. No temporal or scalp tenderness. EYES: Pupils equal round and reactive. Extraocular motions intact. ENT: Intubated. NECK: Trachea midline. Supple, nontender, no meningeal signs. CARDIOVASCULAR: ? systolic murmur. RESPIRATORY: Decreased air entry bilaterally bases. GASTROINTESTINAL: Abdomen soft, non-tender, nondistended. MUSCULOSKELETAL: Extremities without clubbing, cyanosis, or edema. NEUROLOGICAL: Sedated, moves extremities. Psych cooperative IV line sites with no e.o infection. Assessment & Plan Remarks Severe Sepsis present on admission MSSA endocarditis. MSSA bacteremia persistent Bilateral pleural effusions: left side appears loculated possible empyema. TV and Pulmonic valve endocarditis Pneumonia: septic emboli, aspiration pneumonia. IVDA: heroin, cocaine and methamphetamine. Acute renal failure: Sepsis, meds,contrast. Recs: Continue Teflaro IV (salvage Rx for endocarditis given persistent bacteremia and renal failure) Continue Ancef IV (will be the primary drug once bacteremia controlled) Continue Rifampin oral. Follow cultures Follow clinically d/w ТАТЬЯНА [place] covering for me this weekend and available prn. Lakia Macias MD Oct 10, 2017 14:07
[2017-10-10] MEDS: HEPARIN SODIUM - IV 10,000 UNITS/10 ML VIAL PRN (14:08)
[2017-10-10 14:24] LABS: AMYLASE BODY FLUID 38 U/L; AMYLASE BODY FLUID TYPE PLEURAL
--- NOTE | 2017-10-10 16:08 | HHI.NPPN ---
Subjective History of Present Illness Patient is 27-year-old male who reported to ER with body aches, 7 days of diarrhea with development fever. Past medical history of IV drug use. Patient is sedated and ventilated FiO2 at 40 %. Nephrology is consulted for ZEUS and fluid over load status. Patients creatinine is 3.02 and GFR 25ml/min. Patient is UOP at 800cc for last 24 hours. Weight has increased by over 10 kg since admission. IVF's have been stopped and lasix has been given. Patient has endocarditis with large tricuspid valve vegetation, and pulmonic vegetation. Noted to have bacteremia with hypotension with SBP in the 90's. Additional Remarks Patient remain intubated and sedated. Dialysis today (Venus Barrett) Objective Data Data 10/10/17 10/11/17 19:00 07:00 Intake Total 300 ml Output Total 4000 ml Balance -3700 ml IV Total 300 ml Hemodialysis 4000 ml Vital Signs Date Time Temp Pulse Resp B/P (MAP) Pulse Ox O2 Delivery O2 Flow Rate FiO2 10/10/17 14:00 105 10/10/17 12:00 100.0 109 22 124/65 (84) 96 10/10/17 12:00 109 10/10/17 12:00 40 10/10/17 11:38 96 40 10/10/17 10:00 109 10/10/17 08:34 96 40 10/10/17 08:00 108 10/10/17 08:00 99.3 106 19 115/57 (76) 96 10/10/17 08:00 40 10/10/17 06:00 108 10/10/17 04:35 96 40 10/10/17 04:00 40 10/10/17 04:00 99.8 109 19 114/56 (75) 96 10/10/17 04:00 109 10/10/17 02:00 98 10/10/17 01:05 92 40 10/10/17 00:00 40 10/10/17 00:00 98.5 100 16 110/59 (76) 100 10/10/17 00:00 100 10/09/17 22:00 99 10/09/17 21:13 100 40 10/09/17 20:00 40 10/09/17 20:00 98.4 95 16 160/59 (92) 100 10/09/17 20:00 95 10/09/17 18:00 99 10/09/17 16:17 100 40 (Venus Barrett) -: 10/10/17 0445 10/10/17 0445 Microbiology 10/10/17 Aerobic Blood Culture, Received Pending 10/10/17 Anaerobic Blood Culture, Received Pending 10/10/17 Aerobic Blood Culture, Received Pending 10/10/17 Anaerobic Blood Culture, Received Pending (Venus Barrett) Physical Exam General Appearance: Comfortable (Venus Barrett) Pulmonary Resp Exam: No Distress, Rhonchi, Decreased Bases (Venus Barrett) Cardiology CV Exam: Regular (Venus Barrett) Gastrointestinal/Abdomen GI Exam: Soft, Non-Tender, Bowel Sounds Present (Venus Barrett) Integumentary Skin Exam: Clear, Warm (Venus Barrett) Extremeties Extremities Exam: Moderate Edema (Venus Barrett) Neurologic Neuro Exam: Sedated (Venus Barrett) Assessment/Plan Problem List: (1) ZEUS (acute kidney injury) ICD Codes: N17.9 - Acute kidney failure, unspecified Plan: ZESU most likely ATN from sepsis and low blood pressure. Other differential will be ATN, Acute interstitial nephritis, and Post infectious GN,unlikely. Patient with over 10 kg weight gain. Good UOP at 1100 over last 24 hours Significant anasarca Calcium continues to be low replacement given Will continue to monitor labs and urinary output HD today and 4 liters removed Epogen with dialysis HD as needed and watch for renal recovery. (2) Sepsis ICD Codes: A41.9 - Sepsis, unspecified organism Status: Acute Plan: Antibiotics per ID (3) Endocarditis ICD Codes: I38 - Endocarditis, valve unspecified Status: Acute (Venus Barrett) Problem List: (1) ZEUS (acute kidney injury) ICD Codes: N17.9 - Acute kidney failure, unspecified Plan: ZEUS most likely ATN from sepsis and low blood pressure. Other differential will be ATN, Acute interstitial nephritis, and Post infectious GN,unlikely. Patient with over 10 kg weight gain. Good UOP at 1100 over last 24 hours Significant anasarca Calcium continues to be low replacement given Will continue to monitor labs and urinary output HD today and 4 liters removed Epogen with dialysis HD as needed and watch for renal recovery. Patient seen and examined, agree with above. HD will be again in AM. (2) Sepsis ICD Codes: A41.9 - Sepsis, unspecified organism Status: Acute Plan: Antibiotics per ID (3) Endocarditis ICD Codes: I38 - Endocarditis, valve unspecified Status: Acute (Darek Tapia MD) Problem Qualifiers (1) Sepsis: Qualified Codes: A41.9 - Sepsis, unspecified organism (2) Endocarditis: Venus Barrett Oct 10, 2017 16:08 Darek Tapia MD Oct 10, 2017 20:52
--- NOTE | 2017-10-10 16:12 | HHI.GIFU ---
Subjective Remarks Patient currently receiving dialysis ET tube and sedation continues, nonverbal, or communicating Afebrile Abdomen taut, Abdominal distention noted (Merle De La Cruz) Objective Vitals I&O Vital Signs Date Time Temp Pulse Resp B/P (MAP) Pulse Ox O2 Delivery O2 Flow Rate FiO2 10/10/17 14:00 105 10/10/17 12:00 100.0 109 22 124/65 (84) 96 10/10/17 12:00 109 10/10/17 12:00 40 10/10/17 11:38 96 40 10/10/17 10:00 109 10/10/17 08:34 96 40 10/10/17 08:00 108 10/10/17 08:00 99.3 106 19 115/57 (76) 96 10/10/17 08:00 40 10/10/17 06:00 108 10/10/17 04:35 96 40 10/10/17 04:00 40 10/10/17 04:00 99.8 109 19 114/56 (75) 96 10/10/17 04:00 109 10/10/17 02:00 98 10/10/17 01:05 92 40 10/10/17 00:00 40 10/10/17 00:00 98.5 100 16 110/59 (76) 100 10/10/17 00:00 100 10/09/17 22:00 99 10/09/17 21:13 100 40 10/09/17 20:00 40 10/09/17 20:00 98.4 95 16 160/59 (92) 100 10/09/17 20:00 95 10/09/17 18:00 99 10/09/17 16:17 100 40 I/O 10/09/17 10/09/17 10/09/17 10/10/17 10/10/17 10/10/17 07:00 15:00 23:00 07:00 15:00 23:00 Intake Total 1803 ml 1370 ml 935 ml 966 ml 300 ml Output Total 450 ml 4400 ml 414 ml 4000 ml Balance 1353 ml 1370 ml -3465 ml 552 ml -3700 ml IV Total 850 ml 520 ml 100 ml 300 ml Tube Feeding 553 ml 495 ml 866 ml Packed Cells 800 ml Blood Product IV Normal Saline Flush 50 ml Tube Irrigant 400 ml 240 ml 100 ml Other 100 ml Output Urine Total 450 ml 750 ml 350 ml Chest Tube Drainage Total 1150 ml 64 ml Hemodialysis 2500 ml 4000 ml # Bowel Movements 0 Laboratory Laboratory Tests Test 10/09/17 22:15 10/10/17 04:45 Iron Level 19 Ferritin 1217 Total Bilirubin 1.9 1.8 Direct Bilirubin 1.6 Indirect Bilirubin 0.3 Aspartate Amino Transf (AST/SGOT) 78 83 Alanine Aminotransferase (ALT/SGPT) 30 29 Alkaline Phosphatase 274 295 Total Protein 7.9 8.2 Albumin 2.1 2.0 Anti-Nuclear Antibody Screen POS White Blood Count 11.7 Red Blood Count 2.83 Hemoglobin 8.3 Hematocrit 23.9 Mean Corpuscular Volume 84.4 Mean Corpuscular Hemoglobin 29.4 Mean Corpuscular Hemoglobin Concent 34.8 Red Cell Distribution Width 19.8 Platelet Count 124 Mean Platelet Volume 8.8 Neutrophils (%) (Auto) 88.4 Lymphocytes (%) (Auto) 5.1 Monocytes (%) (Auto) 4.4 Eosinophils (%) (Auto) 1.7 Basophils (%) (Auto) 0.4 Neutrophils # (Auto) 10.3 Lymphocytes # (Auto) 0.6 Monocytes # (Auto) 0.5 Eosinophils # (Auto) 0.2 Basophils # (Auto) 0.1 CBC Comment DIFF FINAL Differential Comment Blood Urea Nitrogen 47 Creatinine 4.08 Random Glucose 87 Calcium Level 7.5 Magnesium Level 2.7 Sodium Level 140 Potassium Level 4.6 Chloride Level 104 Carbon Dioxide Level 27.1 Anion Gap 9 Estimat Glomerular Filtration Rate 18 Date/Time Source Procedure Growth Status 10/10/17 10:27 Blood Peripheral Aerobic Blood Culture Pending Received 10/10/17 10:27 Blood Peripheral Anaerobic Blood Culture Pending Received 10/09/17 12:00 Fluid Pleural Fluid Fungal Smear - Final NO FUNGAL ELEMENTS SEEN. Resulted 10/09/17 12:00 Fluid Pleural Fluid Fungal Culture Pending Resulted 10/04/17 03:49 Sputum Expectorated Sputum Gram Stain - Final Complete 10/04/17 03:49 Sputum Expectorated Sputum Sputum Culture - Final HEAVY GROWTH NORMAL RESPIRATORY RHIANNON Complete 10/03/17 21:30 Urine Random Urine Legionella Antigen - Final PRESUMPTIVE NEGATIVE FOR LEGIONELLA P... Complete 10/03/17 21:30 Urine Random Urine Streptococcus pneumoniae Antigen (M - Final PRESUMPTIVE NEGATIVE FOR STREPTOCOCCU... Complete Physical Exam HEENT: Eyes closed; facial edema no jaundice. ET tube intact, NECK: Neck is supple, no JVD, no lymphadenopathy. CHEST: Chest is clear to auscultation and percussion. CARDIAC: Regular rate and rhythm with no murmur gallop or rubs. ABDOMEN: Soft, nondistended, nontender; no hepatosplenomegaly; bowel sounds are present in all four quadrants. EXTREMITIES: No clubbing, cyanosis, or edema. SKIN: Normal; no rash; no jaundice. FENCE BUILDER: No focal deficits; alert and oriented times three. (Merle De La Cruz) Assessment and Plan Plan anemia - normocytic hgb 8.8 on admission receiving 5 units total blood transfusions. Hemoglobin currently 8.3 no obvious bleeding, probable multifactorial given his history of drug abuse. Elevated LFTs- unspecified but probable shock liver, hepatitis C . Current labs include bilirubin 1.8, AST mildly increased 83, ALT normal 29, positive hepatitis C antibody, MARTÍN screen positive septic emboli, respiratory failure, fluid overload, endocarditis and valve vegetations, ZEUS - CT surgery, ID, nephrology following Currently patient remains in the intensive care setting, receiving hemodialysis at this time. Does have some abdominal bloating, no obvious bowel sounds heard. Possible ileus? PLAN -Nothing by mouth -KUB, R/O Ileus - Protonix IV - Rifampin - Bowel regimen if needed - monitor for bleeding - monitor labs with special attention to hemoglobin - transfuse as needed - Consider liver biopsy when stable - supportive care pt seen by myself and Dr Xiong and this note is written on his behalf (Merle De La Cruz) Physician Comments Patient seen and examined Agree with above Continue with current supportive care Monitor labs (Trino Xiong MD) Merle De La Cruz Oct 10, 2017 16:12 Trino Xiong MD Oct 10, 2017 18:57
--- NOTE | 2017-10-10 17:37 | RADRPT ---
EXAM DATE/TIME: 10/10/2017 16:46 [facility] COMPARISON: No previous studies available for comparison. INDICATIONS : Distention. MEDICAL HISTORY : None. SURGICAL HISTORY : None. ENCOUNTER: Subsequent ACUITY: 1 week PAIN SCORE: Non-responsive. LOCATION: Abdomen. FINDINGS: Nasogastric tube across the GE junction. Small bore left chest tube in place Small bore right chest tube in place Abdomen relatively gasless. There is no free air or obstruction. CONCLUSION: Negative for free air or obstruction. Rahul Yarbrough MD FACR on October 10, 2017 at 17:35 Board Certified Radiologist. This report was verified electronically.
[2017-10-11] VITALS (40 sets, daily range): BP systolic 107–128; BP diastolic 58–77; PULSE 97–115; RESP 16–40; TEMP 98.6; O2SAT 96–100
[2017-10-11] MEDS: CEFTAROLINE INJ 300 MG in SODIUM CHLORIDE 0.9% INJ 100 ML IV SCH ×2 (01:48→13:16)
[2017-10-11] MEDS: MIDAZOLAM 100 MG/100 ML INJ 100 ML IV PRN ×2 (01:49→23:21)
[2017-10-11] MEDS: RESP: ALBUTEROL 2.5 MG/IPRATROPIUM 0.5 MG NEB (SCH) NEB ×4 (03:28→20:17)
[2017-10-11] MEDS: CHLORHEXIDINE GLUCONATE 2 % 1 PACK (2 CLOTHS) TOP SCH (04:00)
--- NOTE | 2017-10-11 04:38 | RADRPT ---
EXAM DATE/TIME: 10/11/2017 03:30 [facility] COMPARISON: CHEST SINGLE AP, October 10, 2017, 1:39. INDICATIONS : Shortness of breath, possible pulmonary disease. MEDICAL HISTORY : None. SURGICAL HISTORY : None. ENCOUNTER: Subsequent ACUITY: 1 week PAIN SCORE: Non-responsive. LOCATION: Bilateral chest FINDINGS: Lines and tubes are present not significantly changed. Left basilar opacity is present may be due to a combination of consolidation and or pleural effusion. There is mild improvement in pulmonary edema since the prior examination. No definite pneumothorax is seen for technique. CONCLUSION: Mild improvement in pulmonary edema with residual edema remaining. Left basilar opacity is present ma y be due to a combination of consolidation and or pleural effusion. All Kim MD on October 11, 2017 at 4:35 Board Certified Radiologist. This report was verified electronically.
[2017-10-11 05:24] LABS: AUTOMATED NEUTROPHIL # 10.3 TH/MM3 (1.8-7.7); BASOPHIL # 0.1 TH/MM3 (0-0.2); BASOPHIL % 0.6 % (0.0-2.0); EOSINOPHIL # 0.2 TH/MM3 (0-0.4); EOSINOPHIL % 1.3 % (0.0-4.0); HEMOGLOBIN 7.6 GM/DL (13.0-17.0); LYMPH % 5.2 % (9.0-44.0); LYMPHOCYTE # 0.6 TH/MM3 (1.0-4.8); MEAN CELL VOLUME 84.7 FL (80.0-100.0); MEAN CORPUSCULAR HEMOGLOBIN 29.1 PG (27.0-34.0); MEAN CORPUSCULAR HGB CONC 34.4 % (32.0-36.0); MEAN PLATELET VOLUME 8.8 FL (7.0-11.0); MONO % 5.8 % (0.0-8.0); MONOCYTE # 0.7 TH/MM3 (0-0.9); NEUT % 87.1 % (16.0-70.0); PLATELET COUNT 125 TH/MM3 (150-450); RED CELL DISTRIBUTION WIDTH 19.3 % (11.6-17.2); WHITE BLOOD COUNT 11.8 TH/MM3 (4.0-11.0)
[2017-10-11] MEDS: VASOPRESSIN INJ 40 UNITS in DEXTROSE 5% IN WATER 100ML INJ 98 ML IV SCH ×4 (05:40→22:20)
[2017-10-11 05:46] LABS: ALBUMIN 2.4 GM/DL (3.4-5.0); ALT (GPT) 15 U/L (12-78); AST (GOT) 50 U/L (15-37); BICARBONATE 29.9 MEQ/L (21.0-32.0); CALCIUM 7.8 MG/DL (8.5-10.1); CHLORIDE 101 MEQ/L (98-107); CREATININE 3.85 MG/DL (0.60-1.30); GLOMERULAR FILTRATION RATE 19 ML/MIN (>89); GLUCOSE,RANDOM 100 MG/DL (74-106); SODIUM (NA) 139 MEQ/L (136-145)
[2017-10-11 05:52] LABS: ALKALINE PHOSPHATASE 260 U/L (45-117); BLOOD UREA NITROGEN 44 MG/DL (7-18); TOTAL PROTEIN 8.1 GM/DL (6.4-8.2)
[2017-10-11 05:56] LABS: TOTAL BILIRUBIN ADULT 1.6 MG/DL (0.2-1.0)
[2017-10-11] MEDS: PROPOFOL 1000 MG/100 ML INJ 100 ML IV PRN ×4 (06:26→22:01)
[2017-10-11] MEDS: HEPARIN SODIUM - SQ 10,000 UNITS/ML VIAL SQ SCH ×3 (06:27→20:30)
[2017-10-11] MEDS: CHLORHEXIDINE 0.12% (ORAL KIT) 15 ML CUP MT SCH ×2 (08:00→20:51)
[2017-10-11] MEDS: DOCUSATE SODIUM 50 MG/SENNA 8.6 MG TAB PO SCH ×2 (08:39→20:28)
[2017-10-11] MEDS: METHOCARBAMOL 500 MG TAB PO SCH ×4 (08:39→20:28)
[2017-10-11] MEDS: RIFAMPIN 150 MG CAP PO SCH ×2 (08:39→20:28)
[2017-10-11] MEDS: HEPARIN SODIUM - IV 10,000 UNITS/10 ML VIAL PRN (08:57)
[2017-10-11] MEDS: SODIUM CHLOR 0.9% 1000 ML INJ 1,000 ML IV PRN (08:57)
[2017-10-11] MEDS: GENTAMICIN SULFATE 20 MG/2 ML VIAL OTHER PRN (08:58)
[2017-10-11] MEDS: EPOETIN ALFA 10,000 UNITS/ML VIAL IV PUSH PRN (08:58)
[2017-10-11] MEDS: BENEPROTEIN POWDER 1 PACK OG-TUBE SCH ×3 (09:00→17:08)
[2017-10-11] MEDS: FLUTICASONE PROPIONATE 44 MCG/ACT 10.6 GM INHALER INH SCH (09:00)
--- NOTE | 2017-10-11 09:50 | HHI.GIFU ---
Subjective Remarks Pt intubated on vent, getting HD. (Kierra Paul) Objective Vitals I&O Vital Signs Date Time Temp Pulse Resp B/P (MAP) Pulse Ox O2 Delivery O2 Flow Rate FiO2 10/11/17 08:37 100 40 10/11/17 08:05 40 10/11/17 06:00 99 10/11/17 04:00 99.0 101 20 112/64 (80) 100 10/11/17 04:00 101 10/11/17 04:00 40 10/11/17 03:28 99 40 10/11/17 02:00 99 10/11/17 01:00 99 40 10/11/17 00:00 40 10/11/17 00:00 100 10/11/17 00:00 98.6 100 19 111/58 (75) 99 10/10/17 23:02 99 40 10/10/17 22:00 100 10/10/17 20:00 100 10/10/17 20:00 40 10/10/17 20:00 99.3 100 21 116/58 (77) 99 10/10/17 18:00 40 10/10/17 18:00 107 10/10/17 16:37 97 40 10/10/17 16:00 99.3 107 22 112/68 (83) 97 10/10/17 16:00 105 10/10/17 16:00 40 10/10/17 14:00 105 10/10/17 12:00 100.0 109 22 124/65 (84) 96 10/10/17 12:00 109 10/10/17 12:00 40 10/10/17 11:38 96 40 10/10/17 10:00 109 I/O 10/10/17 10/10/17 10/10/17 10/11/17 10/11/17 10/11/17 07:00 15:00 23:00 07:00 15:00 23:00 Intake Total 966 ml 300 ml 920 ml 622 ml Output Total 414 ml 4000 ml 375 ml 245 ml Balance 552 ml -3700 ml 545 ml 377 ml IV Total 300 ml 300 ml Tube Feeding 866 ml 620 ml 622 ml Tube Irrigant 100 ml Output Urine Total 350 ml 350 ml 225 ml Chest Tube Drainage Total 64 ml 25 ml 20 ml Hemodialysis 4000 ml Laboratory Laboratory Tests Test 10/11/17 05:00 White Blood Count 11.8 Red Blood Count 2.60 Hemoglobin 7.6 Hematocrit 22.0 Mean Corpuscular Volume 84.7 Mean Corpuscular Hemoglobin 29.1 Mean Corpuscular Hemoglobin Concent 34.4 Red Cell Distribution Width 19.3 Platelet Count 125 Mean Platelet Volume 8.8 Neutrophils (%) (Auto) 87.1 Lymphocytes (%) (Auto) 5.2 Monocytes (%) (Auto) 5.8 Eosinophils (%) (Auto) 1.3 Basophils (%) (Auto) 0.6 Neutrophils # (Auto) 10.3 Lymphocytes # (Auto) 0.6 Monocytes # (Auto) 0.7 Eosinophils # (Auto) 0.2 Basophils # (Auto) 0.1 CBC Comment DIFF FINAL Differential Comment Blood Urea Nitrogen 44 Creatinine 3.85 Random Glucose 100 Total Protein 8.1 Albumin 2.4 Calcium Level 7.8 Alkaline Phosphatase 260 Aspartate Amino Transf (AST/SGOT) 50 Alanine Aminotransferase (ALT/SGPT) 15 Total Bilirubin 1.6 Sodium Level 139 Potassium Level 3.9 Chloride Level 101 Carbon Dioxide Level 29.9 Anion Gap 8 Estimat Glomerular Filtration Rate 19 Date/Time Source Procedure Growth Status 10/10/17 10:27 Blood Peripheral Aerobic Blood Culture Pending Received 10/10/17 10:27 Blood Peripheral Anaerobic Blood Culture Pending Received 10/09/17 12:00 Fluid Pleural Fluid Fungal Smear - Final NO FUNGAL ELEMENTS SEEN. Resulted 10/09/17 12:00 Fluid Pleural Fluid Fungal Culture Pending Resulted 10/04/17 03:49 Sputum Expectorated Sputum Gram Stain - Final Complete 10/04/17 03:49 Sputum Expectorated Sputum Sputum Culture - Final HEAVY GROWTH NORMAL RESPIRATORY RHIANNON Complete 10/03/17 21:30 Urine Random Urine Legionella Antigen - Final PRESUMPTIVE NEGATIVE FOR LEGIONELLA P... Complete 10/03/17 21:30 Urine Random Urine Streptococcus pneumoniae Antigen (M - Final PRESUMPTIVE NEGATIVE FOR STREPTOCOCCU... Complete Imaging Last Impressions Chest X-Ray 10/11/17 0600 Signed Impressions: Service Date/Time: Wednesday, October 11, 2017 03:30 - CONCLUSION: Mild improvement in pulmonary edema with residual edema remaining. Left basilar opacity is present may be due to a combination of consolidation and or pleural effusion. All Kim MD Abdomen X-Ray 10/10/17 0000 Signed Impressions: Service Date/Time: Tuesday, October 10, 2017 16:46 - CONCLUSION: Negative for free air or obstruction. Rahul Yarbrough MD FACR Chest Tube Insertion 10/06/17 0000 Signed Impressions: Service Date/Time: Friday, October 06, 2017 15:37 - CONCLUSION: Uncomplicated chest tube placement as above. Emerson Hui MD Chest CT 10/04/17 0000 Signed Impressions: Service Date/Time: Wednesday, October 04, 2017 21:18 - CONCLUSION: Abnormal diffuse airspace opacities throughout both lungs with bilateral lower lobe consolidation and patchy focal areas of consolidation the remainder of the lungs. There is also bilateral pleural effusions with probable loculation. Mat Alejandra MD Abdomen/Pelvis CT 10/04/17 0000 Signed Impressions: Service Date/Time: Wednesday, October 04, 2017 21:21 - CONCLUSION: 1. Severe hepatosplenomegaly without focal lesion. 2. Free fluid in the pelvis. 3. Abnormal lower lungs and pleural effusions. 4. Prominent varices about the splenic vein. Mat Alejandra MD Physical Exam HEENT: normocephalic, piercings, intubated CHEST: coarse CARDIAC: tachy ABDOMEN: Soft, distended, BS + EXTREMITIES: gen edema SKIN: tattoos, no rash; no jaundice. INTERNAL AUDITOR: unresponsive (Kierra Paul HOSIERY REPAIRER) Assessment and Plan Plan ASSESSMENT - anemia - normocytic hgb 8.8 on admission and trending down. 2/2 sepsis, hemodilution, spherocytosis? no obvious bleeding hemoccult pending. + family hx spherocytosis. CT showed hepatosplenomegaly severe, splenic vein varices s/p 4 X PRBC, 5th unit pending. - elevated LFTs - unclear etiology could be shock liver. he is + hep c ab. - septic emboli, respiratory failiure, IVDU, fluid overload, endocarditis and valve vegetations, ZEUS - CT surgery, ID, nephrology following 10/10/17 Currently patient remains in the intensive care setting, receiving hemodialysis at this time. Does have some abdominal bloating, no obvious bowel sounds heard. Possible ileus? 10/11/17 KUB neg. decrease HH today, hgb 7.6. LFTs trending down. [place] quant [id number]. MARTÍN pos. rest of liver w/u pending on HD for ZEUS, fluid overload. PLAN - await rest of liver w/u - NPO - Protonix IV - abx per ID - monitor for bleeding - monitor labs - transfuse as needed - supportive care pt seen by myself and Dr Diego and this note is written on her behalf (Kierra Paul) Physician Comments seen, examined agree with above (Stefania Diego MD) Kierra Paul Oct 11, 2017 09:49 Stefania Diego MD Oct 11, 2017 19:46
[2017-10-11] MEDS: fentaNYL DRIP 250 ML IV PRN ×2 (10:39→22:08)
--- NOTE | 2017-10-11 11:13 | HHI.NPPN ---
Subjective History of Present Illness Patient is 27-year-old male who reported to ER with body aches, 7 days of diarrhea with development fever. Past medical history of IV drug use. Patient is sedated and ventilated FiO2 at 40 %. Nephrology is consulted for ZEUS and fluid over load status. Patients creatinine is 3.02 and GFR 25ml/min. Patient is UOP at 800cc for last 24 hours. Weight has increased by over 10 kg since admission. IVF's have been stopped and lasix has been given. Patient has endocarditis with large tricuspid valve vegetation, and pulmonic vegetation. Noted to have bacteremia with hypotension with SBP in the 90's. Additional Remarks Patient remain intubated and sedated. Objective Data Data Vital Signs Date Time Temp Pulse Resp B/P (MAP) Pulse Ox O2 Delivery O2 Flow Rate FiO2 10/11/17 08:37 100 40 10/11/17 08:05 40 10/11/17 06:00 99 10/11/17 04:00 99.0 101 20 112/64 (80) 100 10/11/17 04:00 101 10/11/17 04:00 40 10/11/17 03:28 99 40 10/11/17 02:00 99 10/11/17 01:00 99 40 10/11/17 00:00 40 10/11/17 00:00 100 10/11/17 00:00 98.6 100 19 111/58 (75) 99 10/10/17 23:02 99 40 10/10/17 22:00 100 10/10/17 20:00 100 10/10/17 20:00 40 10/10/17 20:00 99.3 100 21 116/58 (77) 99 10/10/17 18:00 40 10/10/17 18:00 107 10/10/17 16:37 97 40 10/10/17 16:00 99.3 107 22 112/68 (83) 97 10/10/17 16:00 105 10/10/17 16:00 40 10/10/17 14:00 105 10/10/17 12:00 100.0 109 22 124/65 (84) 96 10/10/17 12:00 109 10/10/17 12:00 40 10/10/17 11:38 96 40 -: 10/11/17 0500 10/11/17 0500 Physical Exam General Appearance: Comfortable Pulmonary Resp Exam: No Distress, Rhonchi, Decreased Bases Cardiology CV Exam: Regular Gastrointestinal/Abdomen GI Exam: Soft, Non-Tender, Bowel Sounds Present Integumentary Skin Exam: Clear, Warm Extremeties Extremities Exam: Moderate Edema Neurologic Neuro Exam: Sedated Assessment/Plan Problem List: (1) ZEUS (acute kidney injury) ICD Codes: N17.9 - Acute kidney failure, unspecified Plan: ZEUS most likely ATN from sepsis and low blood pressure. Other differential will be ATN, Acute interstitial nephritis, and Post infectious GN,unlikely. Patient with weight gain. Good UOP at 575 cc over last 24 hours Calcium 7.8 give calcium gluconate 1 g Will continue to monitor labs and urinary output HD today seen during hemodialysis ultrafiltration 3 L and 3K bath Epogen with dialysis HD as needed and watch for renal recovery. (2) Sepsis ICD Codes: A41.9 - Sepsis, unspecified organism Status: Acute Plan: Antibiotics per ID (3) Endocarditis ICD Codes: I38 - Endocarditis, valve unspecified Status: Acute Problem Qualifiers (1) Sepsis: Qualified Codes: A41.9 - Sepsis, unspecified organism (2) Endocarditis: Sofie De Los Santos MD Oct 11, 2017 11:13
[2017-10-11] MEDS: PANTOPRAZOLE SODIUM 40 MG VIAL IV PUSH SCH ×2 (12:14→20:28)
[2017-10-11] MEDS: SODIUM CHLORIDE 0.9% FLUSH 10 ML FLUSH IV FLUSH SCH ×2 (12:14→20:30)
[2017-10-11] MEDS: ALBUMIN 25% INJ 100 ML IV SCH ×2 (12:14→20:29)
[2017-10-11] MEDS ORDERED: CALCIUM GLUCONATE INJ 1 GM in DEXTROSE 5% IN WATER 100ML INJ 100 ML IV ONE ×2 (13:00)
[2017-10-11 13:47] LABS: SMOOTH MUSCLE TOTAL AUTOABS Negative (Negative)
--- NOTE | 2017-10-11 14:29 | HHI.CCPN ---
Subjective Remarks/Hospital Course 27-year-old male with remote history of IV drug abuse, states he last used heroin 2 months ago, presents for evaluation of 8 days of body aches, 7 days of diarrhea with development of subjective fever yesterday. Patient denies any nausea or vomiting. He denies any chest pain. States that he is short of breath and feels anxious. This has developed within the last 24 hours. Patient does have a cough with clear sputum. Denies any prior history of endocarditis. Denies any abdominal pain. Does report some left back pain, worse while lying flat. He is well reports generalized weakness. 10/04/17: He is critically ill, remains febrile up to 103, tachycardic diaphoretic. large tricuspid valve vegetation on bedside echo, formal echo pending. Infectious disease consulted, CT surgery consult ordered. D/W Dr. Macias and Dr. Charles. 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 Hb 6.6 getting 2U PRBC 10/05: Remains critically ill intubated sedated. TE on yesterday TEF 40-45%. Large mobile vegetation noted on the tricuspid valve, may be 2 separate vegetations, measures overall 4cm x 1.7cm. Probable mobile density noted on the pulmonic valve. CT of the chest shows extensive septic emboli and consolidation , with loculated appearing effusion on the left base. Dr. Charles CT surgery recommends 4-6 weeks of IV antibiotics followed by repeat echo, considering surgery at that time if no improvement 10/06: Worsening CXR, with bibasilar worsening infiltrates and effusion. IR to place CT-guided left chest tube today for loculated effusion. Fluid overloaded approximately 8 kg. IV Lasix 40 mg x1. MSSA bacteremia persists 10/07: Remains intubated sedated remains critical severe volume overload with worsening renal function creatinine 3, weight up by at least [address] him on Bumex infusion and consult nephrology. Patient remains slightly oliguric 800 mL urine output in 24 hours. Chest x-ray showed bilateral infiltrates and worsening right effusion 10/08: Remains intubated heavily sedated oliguric. Continues to have positive fluid balance creatinine increased to 4.3. Hemoglobin 6.9. Currently on Bumex infusion with not adequate response. Persistently bacteremic. Bilateral infiltrates on chest x-ray with moderate right effusion 10/09: Intubated sedated remains severely fluid overloaded started on hemodialysis yesterday with 4 L removed still positive fluid balance. Hemoglobin 6.81 unit PRBC transfusion ordered along with calcium replacement. GI consulted for further workup. Large pleural effusion on right side plan for pigtail chest tube placement 10/10: Intubated sedated. Had HD with 25L removed yesterday. right chest tube placed yesterday 1.2 L of old blood tinged effusion drained-Gram stain negative. Chest x-ray shows improvement in effusion. Remains severely fluid overloaded still remains 16-17 kg up. Discussed with nephrology plan for HD with maximum fluid removal as tolerated 10/11: The patient continues on sedation intubated, opens eyes spontaneously, not follow commands. The patient underwent hemodialysis yesterday approximately 3 L off. Bilateral chest tubes no leak noted. Minimal output left chest tube. Objective Vital Signs Date Time Temp Pulse Resp B/P (MAP) Pulse Ox O2 Delivery O2 Flow Rate FiO2 10/11/17 14:00 109 10/11/17 13:30 100.0 20 121/68 (85) 98 10/11/17 12:00 40 Intake and Output 10/11/17 10/11/17 10/11/17 07:59 15:59 23:59 Intake Total 622 ml 660 ml Output Total 245 ml Balance 377 ml 660 ml Result Diagram: 10/11/17 0500 10/11/17 0500 Imaging Last Impressions Chest X-Ray 10/11/17 0600 Signed Impressions: Service Date/Time: Wednesday, October 11, 2017 03:30 - CONCLUSION: Mild improvement in pulmonary edema with residual edema remaining. Left basilar opacity is present may be due to a combination of consolidation and or pleural effusion. All Kim MD Abdomen X-Ray 10/10/17 0000 Signed Impressions: Service Date/Time: Tuesday, October 10, 2017 16:46 - CONCLUSION: Negative for free air or obstruction. Rahul Yarbrough MD FACR Chest Tube Insertion 10/06/17 0000 Signed Impressions: Service Date/Time: Friday, October 06, 2017 15:37 - CONCLUSION: Uncomplicated chest tube placement as above. Emerson Hui MD Chest CT 10/04/17 0000 Signed Impressions: Service Date/Time: Wednesday, October 04, 2017 21:18 - CONCLUSION: Abnormal diffuse airspace opacities throughout both lungs with bilateral lower lobe consolidation and patchy focal areas of consolidation the remainder of the lungs. There is also bilateral pleural effusions with probable loculation. Mat Alejandra MD Abdomen/Pelvis CT 10/04/17 0000 Signed Impressions: Service Date/Time: Wednesday, October 04, 2017 21:21 - CONCLUSION: 1. Severe hepatosplenomegaly without focal lesion. 2. Free fluid in the pelvis. 3. Abnormal lower lungs and pleural effusions. 4. Prominent varices about the splenic vein. Mat Alejandra MD Objective Remarks GENERAL: Well-nourished, well-developed patient. Critically ill, intubated and sedated sedated SKIN: Warm and dry. Extensive tattoos limits skin exam. Anasarca HEAD: Normocephalic. EYES: No scleral icterus. No injection or drainage. ENT: Orotracheally intubated NECK: Supple, trachea midline. No JVD or lymphadenopathy. RIJ Vascath in place CARDIOVASCULAR: S1-S2 normal with systolic murmur at the left sternal border. Large TV vegetation on bedside echo RESPIRATORY: Air entry is equal bilaterally, coarse rhonchi and crackles. Bilateral pig tail chest tubes in place GASTROINTESTINAL: Abdomen soft, non-tender, nondistended. MUSCULOSKELETAL: No cyanosis. Significant anasarca NEURO EXAM: RASS-2, Pupils are round, reactive to light. Continues I opening Moves extremities spontaneously and follows commands when sedation is lightened , did not follow commands this a.m. A/P Assessment and Plan Neuro IVDU: - Propofol Versed and fentanyl for vent synchrony and sedation - Watch closely for withdrawal - Daily sedation medication Resp: Acute hypoxemic respiratory failure Extensive septic emboli, consolidation of the lung Loculated left effusion, large right effusion - Continue ventilator support, no vent weaning until respiratory status, fluid overload improved - IR placed left chest tube 10/06 with more than 1 L exudative fluid out. - Placed right-sided pigtail chest tube at the bedside 10/09, brown tinged fluid approximately 1.1 L initial output - Discussed with cardiothoracic surgery Dr. Charles, patient may need decortication, if not adequately drained - Broad-spectrum antibiotics per ID, see below - DuoNeb q6hr and PRN CVS: Large tricuspid valve vegetation, and pulmonic vegetation Severe sepsis Fluid overload - Bedside echo shows mild tricuspid vegetation - Cardiology and CT surgery following - CARMEN 10/04: EF 40-45%. Large mobile vegetation on tricuspid valve, may be 2 separate vegetations, measures overall 4cm x 1.7cm. - Probable mobile density noted on the pulmonic valve. - See ID section for ABX - Dr. Charles CT surgery recommends 4-6 weeks of antibiotics and repeat echo - Fluid up by >16 kg, DC Bumex gtt-HD started 10/08. D/W Dr. Tapia- will repeat HD with fluid removal today GI: Hepatosplenomegaly Diarrhea - IV famotidine changed to Protonix due to persistent anemia - Tube feeds with Jevity - Check C Diff, if diarrhea persist, check stool for occult blood - Hepatitis C reactive - GI consulted - patient has hepatosplenomegaly, appreciate Dr. Xiong's input : Acute kidney failure with fluid overload Dehydration on admission - Currently fluid overloaded with worsening bilateral effusion. - DCd Bumex infusion started hemodialysis 10/08, see above - Strict I's and O's, Monitor trend of creatinine - Electrolytes replacement per ICU protocol ID: Tricuspid and pulmonic valve endocarditis Septic emboli to the lung Severe sepsis MSSA bacteremia - Discussed with Dr. Charles CT surgery 10/05/17 - He recommends 4-6 weeks of IV antibiotics with repeat echo, consideration for surgery if Vegetations persists - Ceftaroline, Cefazolin, Rifampin per ID Dr. Macias - Persistent MSSA bacteremia, cultures reviewed - F/u HIV, Hepatitis panel. Hepatitis C reactive Endo: -Electrolyte replacement per protocol Heme: Anemia requiring transfusion Thrombocytopenia - 1U PRBC today. LDH mildly elevated and haptoglobin normal - Monitor CBC, Coags - Thrombocytopenia most likely from sepsis and DIC DVT GI prophylaxis - TEDs SCDs - Started Heparin 5000 U sq q8 10/07, holding 10/08 due to blood loss - Protonix 40 q12 Critical Care: my billing statement This patient remains critically ill with one or more organ systems which are or may become a threat to life. I have spent in excess of 32 minutes discontinuously in the care and management of this patient. This time is exclusive of procedures, and includes, but is not limited to, evaluation of the patient, review of the medical record, discussions with family, consultants, nursing staff, or respiratory therapy, and documentation in the medical record. Patient remains critical with multiorgan failure and severe septic shock. He has huge tricuspid valve and probably pulmonic valve vegetations. His prognosis appears guarded. Renal failure worsening hemodialysis to be started , also transfuse for anemia. Respiratory failure and fluid overload persist. Physician Prema Dalton MD Oct 11, 2017 14:29
--- NOTE | 2017-10-11 17:45 | HHI.IDPN ---
Subjective Subjective Remarks chart reviewed X cover for Dr Macias is a 27 y/o CM with remote history of IV drug abuse, states he last used heroin 2 months ago, presents for evaluation of body aches, 7 days of diarrhea with development of subjective fever yesterday. Patient denies any nausea or vomiting. He denies any chest pain. This has developed within the last 24 hours. Patient does have a cough with clear sputum. Denies any prior history of endocarditis. Denies any abdominal pain. Does report some left back pain, worse while lying flat. He is well reports generalized weakness. Patient met criteria for sepsis on admission. Flu antigen negative. CXR with bilateral infiltrates. performed a bedside 2D ECHO and verbally reported a large ~4.5 cm vegetation on TV. CXR suspicious for septic emboli. Blood cultures drawn but it appears patient has received augmentin at some point and cultures may possibly be negative. At the time of my evaluation patient is in the ICU, appears in respiratory distress there is a plan for intubation and CARMEN today. UO ok. No diarrhea, no rash. Not on pressors. ID is consulted for evaluation and Mment of Severe Sepsis and Endocarditis. Overnight events reviewed. Fevers defervesced since Teflaro, Ancef and Rifampin combo started. Pt has 3 vegetations on tricuspid and pulmonic valve. No rash No diarrhea UO low. Undergoing HD for 3rd day in row today. Remains on vent. FiO2 40%, PEEP 5. Secretions moderate pale yellow. Has Bilateral CTs in place. Antibiotics cefzoline teflafo rifampin Lines Line sites with no e.o infection Past Medical History Past Medical History Asthma HCV Past Surgical History No surgical history per records. Allergies: Coded Allergies: erythromycin base (Verified Allergy, Severe, Nausea/Vomiting, 10/03/17) raspberry (Unverified Allergy, Mild, 10/03/17) Objective . Vital Signs Date Time Temp Pulse Resp B/P (MAP) Pulse Ox O2 Delivery O2 Flow Rate FiO2 10/11/17 16:30 99.7 111 20 119/68 (85) 98 10/11/17 16:00 105 10/11/17 16:00 40 10/11/17 16:00 99.7 105 20 116/66 (83) 99 10/11/17 15:57 100 40 10/11/17 15:30 99.7 107 20 118/66 (83) 99 217/18 15:00 99.7 107 21 119/67 (84) 99 2/18 14:30 99.7 107 19 119/64 (82) 99 2/18 14:00 99.7 109 22 118/66 (83) 97 2/18 14:00 109 2/17/18 13:30 100.0 110 20 121/68 (85) 98 217/18 13:00 100.2 109 22 119/66 (83) 100 217/18 12:30 100.4 113 26 121/67 (85) 100 2/18 12:00 40 217/18 12:00 111 2/18 12:00 100.6 111 19 124/66 (85) 100 2/18 11:55 100 40 217/18 11:45 100.4 111 35 124/66 (85) 100 2/18 11:30 100.2 109 23 128/66 (86) 100 2/18 11:15 99.9 107 37 127/68 (87) 100 218 11:00 99.9 110 40 118/63 (81) 100 2/18 10:45 99.9 109 40 119/65 (83) 100 10/11/18 10:30 99.9 112 38 125/65 (85) 100 2/18 10:15 99.7 107 36 123/69 (87) 100 10/11/18 10:00 99.5 106 36 124/72 (89) 100 18 10:00 106 218 09:45 99.3 107 23 125/76 (92) 100 218 09:30 99.0 107 25 124/77 (93) 100 2/18 09:15 98.8 104 27 116/74 (88) 100 2/18 09:00 98.6 105 25 117/70 (86) 99 217/18 08:45 98.4 100 21 118/68 (85) 100 217/18 08:37 100 40 217/18 08:30 98.4 97 20 114/70 (85) 100 18 08:05 40 2/18 08:00 97 2/17/18 08:00 98.1 97 16 107/65 (79) 100 10/11/17 08:00 40 10/11/17 07:00 98.2 97 18 113/67 (82) 98 10/11/17 06:00 99 10/11/17 04:00 99.0 101 20 112/64 (80) 100 10/11/17 04:00 101 10/11/17 04:00 40 10/11/17 03:28 99 40 10/11/17 02:00 99 10/11/17 01:00 99 40 10/11/17 00:00 40 10/11/17 00:00 100 10/11/17 00:00 98.6 100 19 111/58 (75) 99 10/10/17 23:02 99 40 10/10/17 22:00 100 10/10/17 20:00 100 10/10/17 20:00 40 10/10/17 20:00 99.3 100 21 116/58 (77) 99 10/10/17 18:00 40 10/10/17 18:00 107 10/11/17 10/11/17 10/12/17 15:00 23:00 07:00 Intake Total 660 ml Balance 660 ml IV Total 660 ml . Laboratory Tests Test 10/10/17 04:45 10/11/17 05:00 White Blood Count 11.7 TH/MM3 11.8 TH/MM3 Red Blood Count 2.83 MIL/MM3 2.60 MIL/MM3 Hemoglobin 8.3 GM/DL 7.6 GM/DL Hematocrit 23.9 % 22.0 % Mean Corpuscular Volume 84.4 FL 84.7 FL Mean Corpuscular Hemoglobin 29.4 PG 29.1 PG Mean Corpuscular Hemoglobin Concent 34.8 % 34.4 % Red Cell Distribution Width 19.8 % 19.3 % Platelet Count 124 TH/MM3 125 TH/MM3 Mean Platelet Volume 8.8 FL 8.8 FL Neutrophils (%) (Auto) 88.4 % 87.1 % Lymphocytes (%) (Auto) 5.1 % 5.2 % Monocytes (%) (Auto) 4.4 % 5.8 % Eosinophils (%) (Auto) 1.7 % 1.3 % Basophils (%) (Auto) 0.4 % 0.6 % Neutrophils # (Auto) 10.3 TH/MM3 10.3 TH/MM3 Lymphocytes # (Auto) 0.6 TH/MM3 0.6 TH/MM3 Monocytes # (Auto) 0.5 TH/MM3 0.7 TH/MM3 Eosinophils # (Auto) 0.2 TH/MM3 0.2 TH/MM3 Basophils # (Auto) 0.1 TH/MM3 0.1 TH/MM3 CBC Comment DIFF FINAL DIFF FINAL Differential Comment Laboratory Tests Test 10/09/17 22:15 10/10/17 04:45 10/11/17 05:00 Iron Level 19 MCG/DL Ferritin 1217 NG/ML Total Bilirubin 1.9 MG/DL 1.8 MG/DL 1.6 MG/DL Direct Bilirubin 1.6 MG/DL Indirect Bilirubin 0.3 MG/DL Aspartate Amino Transf (AST/SGOT) 78 U/L 83 U/L 50 U/L Alanine Aminotransferase (ALT/SGPT) 30 U/L 29 U/L 15 U/L Alkaline Phosphatase 274 U/L 295 U/L 260 U/L Total Protein 7.9 GM/DL 8.2 GM/DL 8.1 GM/DL Albumin 2.1 GM/DL 2.0 GM/DL 2.4 GM/DL Blood Urea Nitrogen 47 MG/DL 44 MG/DL Creatinine 4.08 MG/DL 3.85 MG/DL Random Glucose 87 MG/DL 100 MG/DL Calcium Level 7.5 MG/DL 7.8 MG/DL Magnesium Level 2.7 MG/DL Sodium Level 140 MEQ/L 139 MEQ/L Potassium Level 4.6 MEQ/L 3.9 MEQ/L Chloride Level 104 MEQ/L 101 MEQ/L Carbon Dioxide Level 27.1 MEQ/L 29.9 MEQ/L Anion Gap 9 MEQ/L 8 MEQ/L Estimat Glomerular Filtration Rate 18 ML/MIN 19 ML/MIN Microbiology Date/Time Source Procedure Growth Status 10/10/17 10:27 Blood Peripheral Aerobic Blood Culture - Preliminary NO GROWTH IN 1 DAY Resulted 10/10/17 10:27 Blood Peripheral Anaerobic Blood Culture - Preliminary NO GROWTH IN 1 DAY Resulted 10/10/17 05:25 Blood Peripheral Aerobic Blood Culture - Preliminary NO GROWTH IN 1 DAY Resulted 10/10/17 05:25 Blood Peripheral Anaerobic Blood Culture - Preliminary NO GROWTH IN 1 DAY Resulted 10/09/17 12:00 Fluid Pleural Fluid Fungal Smear - Final NO FUNGAL ELEMENTS SEEN. Resulted 10/09/17 12:00 Fluid Pleural Fluid Fungal Culture Pending Resulted 10/09/17 12:00 Fluid Pleural Fluid Acid Fast Stain - Final NO ACID FAST BACILLI SEEN Resulted 10/09/17 12:00 Fluid Pleural Fluid Mycobacterial Culture Pending Resulted 10/09/17 12:00 Fluid Pleural Fluid Gram Stain - Final Resulted 10/09/17 12:00 Fluid Pleural Fluid Body Fluid Culture - Preliminary NO GROWTH IN 48 HOURS. Resulted Imaging Last Impressions Chest X-Ray 10/04/17 0000 Signed Impressions: Service Date/Time: Wednesday, October 04, 2017 16:11 - CONCLUSION: 1. ET tube in good position. 2. Significant increase in bilateral airspace opacities, now with consolidation in the lower lungs bilaterally. Mat Alejandra MD Chest CT 10/04/17 0000 Signed Impressions: Service Date/Time: Wednesday, October 04, 2017 21:18 - CONCLUSION: Abnormal diffuse airspace opacities throughout both lungs with bilateral lower lobe consolidation and patchy focal areas of consolidation the remainder of the lungs. There is also bilateral pleural effusions with probable loculation. Mat Alejandra MD Abdomen/Pelvis CT 10/04/17 Signed Impressions: Service Date/Time: Wednesday, October 04, 2017 21:21 - CONCLUSION: 1. Severe hepatosplenomegaly without focal lesion. 2. Free fluid in the pelvis. 3. Abnormal lower lungs and pleural effusions. 4. Prominent varices about the splenic vein. Mat Alejandra MD Physical Exam GENERAL: This is a well-nourished, well-developed patient, in no apparent distress. SKIN: No rashes, ecchymoses or lesions. Cool and dry. Multiple tattoos. HEAD: Atraumatic. Normocephalic. No temporal or scalp tenderness. EYES: Pupils equal round and reactive. Extraocular motions intact. ENT: Intubated. NECK: Trachea midline. Supple, nontender, no meningeal signs. CARDIOVASCULAR: ? systolic murmur. RESPIRATORY: Decreased air entry bilaterally bases. GASTROINTESTINAL: Abdomen soft, non-tender, nondistended. MUSCULOSKELETAL: Extremities without clubbing, cyanosis, or edema. NEUROLOGICAL: Sedated, moves extremities. Psych cooperative IV line sites with no e.o infection. Assessment & Plan Remarks Severe Sepsis present on admission MSSA endocarditis. MSSA bacteremia persistent Bilateral pleural effusions: left side appears loculated possible empyema. TV and Pulmonic valve endocarditis Pneumonia: septic emboli, aspiration pneumonia. IVDA: heroin, cocaine and methamphetamine. Acute renal failure: Sepsis, meds,contrast. - on HD Recs: Continue Teflaro IV (salvage Rx for endocarditis given persistent bacteremia and renal failure) Continue Ancef IV (will be the primary drug once bacteremia controlled) Continue Rifampin oral. Follow cultures Follow clinically d/w oNa Carrasco MD Oct 11, 2017 17:45
[2017-10-11] MEDS: ARTIFICIAL TEARS OPTH OINT 3.5 APPLIC/3.5 GM TUBO EACH EYE SCH (21:00)
[2017-10-12] VITALS (31 sets, daily range): BP systolic 112–127; BP diastolic 65–76; PULSE 106–122; RESP 19–29; TEMP 100.6; O2SAT 97–100
[2017-10-12] MEDS: CEFTAROLINE INJ 300 MG in SODIUM CHLORIDE 0.9% INJ 100 ML IV SCH ×2 (01:01→12:41)
[2017-10-12] MEDS: ARTIFICIAL TEARS OPTH OINT 3.5 APPLIC/3.5 GM TUBO EACH EYE SCH ×3 (01:54→21:19)
[2017-10-12] MEDS: FLUTICASONE PROPIONATE 44 MCG/ACT 10.6 GM INHALER INH SCH ×3 (01:55→21:00)
[2017-10-12] MEDS: RESP: ALBUTEROL 2.5 MG/IPRATROPIUM 0.5 MG NEB (SCH) NEB ×4 (03:11→20:55)
[2017-10-12] MEDS: PROPOFOL 1000 MG/100 ML INJ 100 ML IV PRN ×3 (03:46→18:01)
[2017-10-12] MEDS: CHLORHEXIDINE GLUCONATE 2 % 1 PACK (2 CLOTHS) TOP SCH (04:00)
[2017-10-12] MEDS: HEPARIN SODIUM - SQ 10,000 UNITS/ML VIAL SQ SCH ×3 (04:48→21:17)
--- NOTE | 2017-10-12 04:58 | RADRPT ---
EXAM DATE/TIME: 10/12/2017 04:07 [facility] COMPARISON: CHEST SINGLE AP, October 11, 2017, 3:30. INDICATIONS : Shortness of breath, possible pulmonary disease. MEDICAL HISTORY : None. SURGICAL HISTORY : None. ENCOUNTER: Subsequent ACUITY: 1 week PAIN SCORE: Non-responsive. LOCATION: Bilateral chest FINDINGS: A single view of the chest demonstrates endotracheal tube in good position. NG enters stomach. Small caliber left chest tube without significant pneumothorax. Bilateral mostly basilar airspace disease s lightly worse on the right since October 11 small caliber right chest tube also present without sign ificant pneumothorax. CONCLUSION: 1. Bilateral small caliber chest tubes without significant pneumothorax. NG tube, ET tube and right c entral line unchanged. Slight worsening of right basilar airspace disease since October 11. Christian Kaur MD on October 12, 2017 at 4:55 Board Certified Radiologist. This report was verified electronically.
[2017-10-12 05:51] LABS: AUTOMATED NEUTROPHIL # 9.8 TH/MM3 (1.8-7.7); BASOPHIL # 0.1 TH/MM3 (0-0.2); BASOPHIL % 0.5 % (0.0-2.0); EOSINOPHIL # 0.2 TH/MM3 (0-0.4); EOSINOPHIL % 1.7 % (0.0-4.0); HEMOGLOBIN 8.1 GM/DL (13.0-17.0); LYMPH % 6.1 % (9.0-44.0); LYMPHOCYTE # 0.7 TH/MM3 (1.0-4.8); MEAN CELL VOLUME 85.6 FL (80.0-100.0); MEAN CORPUSCULAR HEMOGLOBIN 28.9 PG (27.0-34.0); MEAN CORPUSCULAR HGB CONC 33.8 % (32.0-36.0); MEAN PLATELET VOLUME 8.6 FL (7.0-11.0); MONO % 7.5 % (0.0-8.0); MONOCYTE # 0.9 TH/MM3 (0-0.9); NEUT % 84.2 % (16.0-70.0); PLATELET COUNT 174 TH/MM3 (150-450); RED CELL DISTRIBUTION WIDTH 20.1 % (11.6-17.2); WHITE BLOOD COUNT 11.7 TH/MM3 (4.0-11.0)
[2017-10-12 06:16] LABS: ALBUMIN 2.4 GM/DL (3.4-5.0); AST (GOT) 37 U/L (15-37); BICARBONATE 30.4 MEQ/L (21.0-32.0); BLOOD UREA NITROGEN 40 MG/DL (7-18); CHLORIDE 101 MEQ/L (98-107); GLOMERULAR FILTRATION RATE 21 ML/MIN (>89); GLUCOSE,RANDOM 89 MG/DL (74-106); MAGNESIUM 2.6 MG/DL (1.5-2.5); SODIUM (NA) 138 MEQ/L (136-145)
[2017-10-12 06:19] LABS: ALKALINE PHOSPHATASE 199 U/L (45-117); ALT (GPT) 9 U/L (12-78); PHOSPHORUS 5.5 MG/DL (2.5-4.9); TOTAL BILIRUBIN ADULT 1.1 MG/DL (0.2-1.0); TOTAL PROTEIN 8.1 GM/DL (6.4-8.2)
[2017-10-12] MEDS: CHLORHEXIDINE 0.12% (ORAL KIT) 15 ML CUP MT SCH ×2 (08:00→20:00)
[2017-10-12] MEDS: RIFAMPIN 150 MG CAP PO SCH ×2 (08:11→21:16)
[2017-10-12] MEDS: DOCUSATE SODIUM 50 MG/SENNA 8.6 MG TAB PO SCH ×2 (08:12→21:17)
[2017-10-12] MEDS: PANTOPRAZOLE SODIUM 40 MG VIAL IV PUSH SCH ×2 (08:12→21:16)
[2017-10-12] MEDS: METHOCARBAMOL 500 MG TAB PO SCH ×4 (08:12→21:17)
[2017-10-12] MEDS: SODIUM CHLORIDE 0.9% FLUSH 10 ML FLUSH IV FLUSH SCH ×2 (08:12→21:17)
[2017-10-12] MEDS: BENEPROTEIN POWDER 1 PACK OG-TUBE SCH ×3 (08:32→17:36)
[2017-10-12] MEDS: ALBUMIN 25% INJ 100 ML IV SCH ×2 (09:49→21:16)
[2017-10-12] MEDS: fentaNYL DRIP 250 ML IV PRN ×2 (09:50→21:15)
--- NOTE | 2017-10-12 10:37 | HHI.GIFU ---
Subjective Remarks Intubated on vent. (Kierra Paul) Objective Vitals I&O Vital Signs Date Time Temp Pulse Resp B/P (MAP) Pulse Ox O2 Delivery O2 Flow Rate FiO2 10/12/17 10:00 119 10/12/17 08:46 100 40 10/12/17 08:30 114 10/12/17 08:30 99.9 114 24 117/71 (86) 100 10/12/17 08:00 40 10/12/17 08:00 112 10/12/17 08:00 99.7 112 20 114/70 (85) 100 10/12/17 08:00 111 10/12/17 07:30 99.5 109 20 112/67 (82) 100 10/12/17 07:00 99.3 108 21 114/67 (83) 100 10/12/17 06:00 109 10/12/17 04:00 110 10/12/17 04:00 99.9 110 19 123/73 (90) 100 10/12/17 04:00 40 10/12/17 03:58 100 40 10/12/17 02:00 108 10/12/17 01:04 100 40 10/12/17 00:00 106 10/12/17 00:00 99.5 106 19 120/72 (88) 100 10/12/17 00:00 40 10/11/17 22:20 94 122/85 10/11/17 22:17 100 40 10/11/17 22:00 111 10/11/17 20:12 96 40 10/11/17 20:00 100.2 115 19 123/66 (85) 100 10/11/17 20:00 115 10/11/17 20:00 40 10/11/17 18:00 111 10/11/17 16:30 99.7 111 20 119/68 (85) 98 10/11/17 16:00 105 10/11/17 16:00 40 10/11/17 16:00 99.7 105 20 116/66 (83) 99 18 15:57 100 40 10/11/17 15:30 99.7 107 20 118/66 (83) 99 10/11/17 15:00 99.7 107 21 119/67 (84) 99 10/11/17 14:30 99.7 107 19 119/64 (82) 99 10/11/17 14:00 99.7 109 22 118/66 (83) 97 10/11/17 14:00 109 10/11/17 13:30 100.0 110 20 121/68 (85) 98 10/11/17 13:00 100.2 109 22 119/66 (83) 100 10/11/17 12:30 100.4 113 26 121/67 (85) 100 10/11/17 12:00 40 10/11/17 12:00 111 10/11/17 12:00 100.6 111 19 124/66 (85) 100 10/11/17 11:55 100 40 10/11/17 11:45 100.4 111 35 124/66 (85) 100 10/11/17 11:30 100.2 109 23 128/66 (86) 100 10/11/17 11:15 99.9 107 37 127/68 (87) 100 10/11/17 11:00 99.9 110 40 118/63 (81) 100 10/11/17 10:45 99.9 109 40 119/65 (83) 100 I/O 10/11/17 10/11/17 10/11/17 10/12/17 10/12/17 10/12/17 07:00 15:00 23:00 07:00 15:00 23:00 Intake Total 622 ml 660 ml 1289 ml 1141 ml Output Total 245 ml 150 ml 408 ml Balance 377 ml 660 ml 1139 ml 733 ml IV Total 660 ml 699 ml 601 ml Tube Feeding 622 ml 590 ml 540 ml Output Urine Total 225 ml 150 ml 150 ml Stool Total 250 ml Chest Tube Drainage Total 20 ml 8 ml # Bowel Movements 2 Laboratory Laboratory Tests Test 10/12/17 04:20 White Blood Count 11.7 Red Blood Count 2.80 Hemoglobin 8.1 Hematocrit 24.0 Mean Corpuscular Volume 85.6 Mean Corpuscular Hemoglobin 28.9 Mean Corpuscular Hemoglobin Concent 33.8 Red Cell Distribution Width 20.1 Platelet Count 174 Mean Platelet Volume 8.6 Neutrophils (%) (Auto) 84.2 Lymphocytes (%) (Auto) 6.1 Monocytes (%) (Auto) 7.5 Eosinophils (%) (Auto) 1.7 Basophils (%) (Auto) 0.5 Neutrophils # (Auto) 9.8 Lymphocytes # (Auto) 0.7 Monocytes # (Auto) 0.9 Eosinophils # (Auto) 0.2 Basophils # (Auto) 0.1 CBC Comment DIFF FINAL Differential Comment Blood Urea Nitrogen 40 Creatinine 3.50 Random Glucose 89 Total Protein 8.1 Albumin 2.4 Calcium Level 8.0 Phosphorus Level 5.5 Magnesium Level 2.6 Alkaline Phosphatase 199 Aspartate Amino Transf (AST/SGOT) 37 Alanine Aminotransferase (ALT/SGPT) 9 Total Bilirubin 1.1 Sodium Level 138 Potassium Level 3.9 Chloride Level 101 Carbon Dioxide Level 30.4 Anion Gap 7 Estimat Glomerular Filtration Rate 21 Date/Time Source Procedure Growth Status 10/10/17 10:27 Blood Peripheral Aerobic Blood Culture - Preliminary NO GROWTH IN 1 DAY Resulted 10/10/17 10:27 Blood Peripheral Anaerobic Blood Culture - Preliminary NO GROWTH IN 1 DAY Resulted 10/09/17 12:00 Fluid Pleural Fluid Fungal Smear - Final NO FUNGAL ELEMENTS SEEN. Resulted 10/09/17 12:00 Fluid Pleural Fluid Fungal Culture Pending Resulted 10/04/17 03:49 Sputum Expectorated Sputum Gram Stain - Final Complete 10/04/17 03:49 Sputum Expectorated Sputum Sputum Culture - Final HEAVY GROWTH NORMAL RESPIRATORY RHIANNON Complete 10/03/17 21:30 Urine Random Urine Legionella Antigen - Final PRESUMPTIVE NEGATIVE FOR LEGIONELLA P... Complete 10/03/17 21:30 Urine Random Urine Streptococcus pneumoniae Antigen (M - Final PRESUMPTIVE NEGATIVE FOR STREPTOCOCCU... Complete Imaging Last Impressions Chest X-Ray 10/12/17 0600 Signed Impressions: Service Date/Time: Thursday, October 12, 2017 04:07 - CONCLUSION: 1. Bilateral small caliber chest tubes without significant pneumothorax. NG tube, ET tube and right central line unchanged. Slight worsening of right basilar airspace disease since October 11. Christian Kaur MD Abdomen X-Ray 10/10/17 0000 Signed Impressions: Service Date/Time: Tuesday, October 10, 2017 16:46 - CONCLUSION: Negative for free air or obstruction. Rahul Yarbrough MD FACR Chest Tube Insertion 10/06/17 0000 Signed Impressions: Service Date/Time: Friday, October 06, 2017 15:37 - CONCLUSION: Uncomplicated chest tube placement as above. Emerson Hui MD Chest CT 2/10/18 0000 Signed Impressions: Service Date/Time: Wednesday, October 04, 2017 21:18 - CONCLUSION: Abnormal diffuse airspace opacities throughout both lungs with bilateral lower lobe consolidation and patchy focal areas of consolidation the remainder of the lungs. There is also bilateral pleural effusions with probable loculation. Mat Alejandra MD Abdomen/Pelvis CT 10/04/17 0000 Signed Impressions: Service Date/Time: Wednesday, October 04, 2017 21:21 - CONCLUSION: 1. Severe hepatosplenomegaly without focal lesion. 2. Free fluid in the pelvis. 3. Abnormal lower lungs and pleural effusions. 4. Prominent varices about the splenic vein. Mat Alejandra MD Physical Exam HEENT: normocephalic, piercings, intubated CHEST: coarse CARDIAC: tachy ABDOMEN: Soft, distended, BS + EXTREMITIES: gen edema SKIN: tattoos, no rash; no jaundice. RN RECRUITMENT: unresponsive (Kierra Paul) Assessment and Plan Plan ASSESSMENT - anemia - normocytic hgb 8.8 on admission and trending down. 2/ sepsis, hemodilution, spherocytosis? no obvious bleeding hemoccult pending. + family hx spherocytosis. CT showed hepatosplenomegaly severe, splenic vein varices s/p 4 X PRBC, 5th unit pending. - elevated LFTs - unclear etiology could be shock liver. he is + hep c ab. - septic emboli, respiratory failiure, IVDU, fluid overload, endocarditis and valve vegetations, ZEUS - CT surgery, ID, nephrology following 10/10/17 Currently patient remains in the intensive care setting, receiving hemodialysis at this time. Does have some abdominal bloating, no obvious bowel sounds heard. Possible ileus? 10/11/17 KUB neg. decrease HH today, hgb 7.6. LFTs trending down. [place] 54715. MARTÍN pos. rest of liver w/u pending on HD for ZEUS, fluid overload. 10/12/17 LFTs trending down. tolerating TF. MARTÍN pos. rest of liver w/u pending. HH stable. PLAN - TF - await rest of liver w/u - Protonix IV - abx per ID - monitor for bleeding - monitor labs - transfuse as needed - supportive care pt seen by myself and Dr Diego and this note is written on her behalf (Kierra Paul) Kierra Paul Oct 12, 2017 10:37 Stefania Diego MD Oct 12, 2017 16:49
--- NOTE | 2017-10-12 12:17 | HHI.NPPN ---
Subjective History of Present Illness Patient is 27-year-old male who reported to ER with body aches, 7 days of diarrhea with development fever. Past medical history of IV drug use. Patient is sedated and ventilated FiO2 at 40 %. Nephrology is consulted for ZEUS and fluid over load status. Patients creatinine is 3.02 and GFR 25ml/min. Patient is UOP at 800cc for last 24 hours. Weight has increased by over 10 kg since admission. IVF's have been stopped and lasix has been given. Patient has endocarditis with large tricuspid valve vegetation, and pulmonic vegetation. Noted to have bacteremia with hypotension with SBP in the 90's. Additional Remarks Patient remain intubated and sedated. Objective Data Data Vital Signs Date Time Temp Pulse Resp B/P (MAP) Pulse Ox O2 Delivery O2 Flow Rate FiO2 10/12/17 12:03 40 10/12/17 11:31 99 40 10/12/17 10:00 119 10/12/17 08:46 100 40 10/12/17 08:30 114 10/12/17 08:30 99.9 114 24 117/71 (86) 100 10/12/17 08:00 40 10/12/17 08:00 112 10/12/17 08:00 99.7 112 20 114/70 (85) 100 10/12/17 08:00 111 10/12/17 07:30 99.5 109 20 112/67 (82) 100 10/12/17 07:00 99.3 108 21 114/67 (83) 100 10/12/17 06:00 109 10/12/17 04:00 110 10/12/17 04:00 99.9 110 19 123/73 (90) 100 10/12/17 04:00 40 10/12/17 03:58 100 40 10/12/17 02:00 108 10/12/17 01:04 100 40 10/12/17 00:00 106 10/12/17 00:00 99.5 106 19 120/72 (88) 100 10/12/17 00:00 40 10/11/17 22:20 94 122/85 10/11/17 22:17 100 40 10/11/17 22:00 111 10/11/17 20:12 96 40 10/11/17 20:00 100.2 115 19 123/66 (85) 100 10/11/17 20:00 115 10/11/17 20:00 40 10/11/17 18:00 111 10/11/17 16:30 99.7 111 20 119/68 (85) 98 10/11/17 16:00 105 10/11/17 16:00 40 10/11/17 16:00 99.7 105 20 116/66 (83) 99 10/11/17 15:57 100 40 10/11/17 15:30 99.7 107 20 118/66 (83) 99 10/11/17 15:00 99.7 107 21 119/67 (84) 99 10/11/17 14:30 99.7 107 19 119/64 (82) 99 10/11/17 14:00 99.7 109 22 118/66 (83) 97 10/11/17 14:00 109 10/11/17 13:30 100.0 110 20 121/68 (85) 98 10/11/17 13:00 100.2 109 22 119/66 (83) 100 10/11/17 12:30 100.4 113 26 121/67 (85) 100 -: 10/12/17 0420 10/12/17 0420 Physical Exam General Appearance: Comfortable Pulmonary Resp Exam: No Distress, Rhonchi, Decreased Bases Cardiology CV Exam: Regular Gastrointestinal/Abdomen GI Exam: Soft, Non-Tender, Bowel Sounds Present Integumentary Skin Exam: Clear, Warm Extremeties Extremities Exam: Moderate Edema Neurologic Neuro Exam: Sedated Assessment/Plan Problem List: (1) ZEUS (acute kidney injury) ICD Codes: N17.9 - Acute kidney failure, unspecified Plan: ZEUS most likely ATN from sepsis and low blood pressure. Other differential will be ATN, Acute interstitial nephritis, and Post infectious GN,unlikely. Patient with weight gain. Good UOP Will continue to monitor labs and urinary output HD as needed and watch for renal recovery. Cr declined post dialysis UF [address] Tapia to follow (2) Sepsis ICD Codes: A41.9 - Sepsis, unspecified organism Status: Acute Plan: Antibiotics per ID (3) Endocarditis ICD Codes: I38 - Endocarditis, valve unspecified Status: Acute Problem Qualifiers (1) Sepsis: Qualified Codes: A41.9 - Sepsis, unspecified organism (2) Endocarditis: Sofie De Los Santos MD Oct 12, 2017 12:17
--- NOTE | 2017-10-12 13:51 | HHI.CCPN ---
Subjective Remarks/Hospital Course 27-year-old male with remote history of IV drug abuse, states he last used heroin 2 months ago, presents for evaluation of 8 days of body aches, 7 days of diarrhea with development of subjective fever yesterday. Patient denies any nausea or vomiting. He denies any chest pain. States that he is short of breath and feels anxious. This has developed within the last 24 hours. Patient does have a cough with clear sputum. Denies any prior history of endocarditis. Denies any abdominal pain. Does report some left back pain, worse while lying flat. He is well reports generalized weakness. 10/04/17: He is critically ill, remains febrile up to 103, tachycardic diaphoretic. large tricuspid valve vegetation on bedside echo, formal echo pending. Infectious disease consulted, CT surgery consult ordered. D/W Dr. Macias and Dr. Charles. CARMEN/psychometrician consult ordered. Hb 6.6 getting 2U PRBC 10/05: Remains critically ill intubated sedated. TE on yesterday TEF 40-45%. Large mobile vegetation noted on the tricuspid valve, may be 2 separate vegetations, measures overall 4cm x 1.7cm. Probable mobile density noted on the pulmonic valve. CT of the chest shows extensive septic emboli and consolidation , with loculated appearing effusion on the left base. Dr. Charles CT surgery recommends 4-6 weeks of IV antibiotics followed by repeat echo, considering surgery at that time if no improvement 10/06: Worsening CXR, with bibasilar worsening infiltrates and effusion. IR to place CT-guided left chest tube today for loculated effusion. Fluid overloaded approximately 8 kg. IV Lasix 40 mg x1. MSSA bacteremia persists 10/07: Remains intubated sedated remains critical severe volume overload with worsening renal function creatinine 3, weight up by at least [address] him on Bumex infusion and consult nephrology. Patient remains slightly oliguric 800 mL urine output in 24 hours. Chest x-ray showed bilateral infiltrates and worsening right effusion 10/08: Remains intubated heavily sedated oliguric. Continues to have positive fluid balance creatinine increased to 4.3. Hemoglobin 6.9. Currently on Bumex infusion with not adequate response. Persistently bacteremic. Bilateral infiltrates on chest x-ray with moderate right effusion 10/09: Intubated sedated remains severely fluid overloaded started on hemodialysis yesterday with 4 L removed still positive fluid balance. Hemoglobin 6.81 unit PRBC transfusion ordered along with calcium replacement. GI consulted for further workup. Large pleural effusion on right side plan for pigtail chest tube placement 10/10: Intubated sedated. Had HD with 25L removed yesterday. right chest tube placed yesterday 1.2 L of old blood tinged effusion drained-Gram stain negative. Chest x-ray shows improvement in effusion. Remains severely fluid overloaded still remains 16-17 kg up. Discussed with nephrology plan for HD with maximum fluid removal as tolerated 10/11: The patient continues on sedation intubated, opens eyes spontaneously, not follow commands. The patient underwent hemodialysis yesterday approximately 3 L off. Bilateral chest tubes no leak noted. Minimal output left chest tube. 10/12: Daily sedation vacation initiated, opens eyes spontaneously, and following commands as squeezing hands bilaterally. Movement of lower extremities. She noted to have very thick secretions. Hemodialysis performed yesterday, approximately 3 L off. Patient noted to have thick copious secretions from airway, with worsening airspace disease on the right. Gen. surgery consulted for tracheostomy. Objective Vital Signs Date Time Temp Pulse Resp B/P (MAP) Pulse Ox O2 Delivery O2 Flow Rate FiO2 10/12/17 12:03 40 10/12/17 12:00 100.2 120 24 120/69 (86) 100 Intake and Output 10/12/17 10/12/17 10/13/17 08:00 16:00 00:00 Intake Total 1127 ml 98 ml Output Total 408 ml Balance 719 ml 98 ml Result Diagram: 10/12/17 0420 10/12/17 0420 Imaging Last Impressions Chest X-Ray 10/11/17 0600 Signed Impressions: Service Date/Time: Wednesday, October 11, 2017 03:30 - CONCLUSION: Mild improvement in pulmonary edema with residual edema remaining. Left basilar opacity is present may be due to a combination of consolidation and or pleural effusion. All Kim MD Abdomen X-Ray 10/10/17 0000 Signed Impressions: Service Date/Time: Tuesday, October 10, 2017 16:46 - CONCLUSION: Negative for free air or obstruction. Rahul Yarbrough MD FACR Chest Tube Insertion 10/06/17 0000 Signed Impressions: Service Date/Time: Friday, October 06, 2017 15:37 - CONCLUSION: Uncomplicated chest tube placement as above. Emerson Hui MD Chest CT 10/04/17 0000 Signed Impressions: Service Date/Time: Wednesday, October 04, 2017 21:18 - CONCLUSION: Abnormal diffuse airspace opacities throughout both lungs with bilateral lower lobe consolidation and patchy focal areas of consolidation the remainder of the lungs. There is also bilateral pleural effusions with probable loculation. Mat Alejandra MD Abdomen/Pelvis CT 10/04/17 0000 Signed Impressions: Service Date/Time: Wednesday, October 04, 2017 21:21 - CONCLUSION: 1. Severe hepatosplenomegaly without focal lesion. 2. Free fluid in the pelvis. 3. Abnormal lower lungs and pleural effusions. 4. Prominent varices about the splenic vein. Mat Alejandra MD Objective Remarks GENERAL: Well-nourished, well-developed patient. Critically ill, intubated and sedated SKIN: Warm and dry. Extensive tattoos limits skin exam. Anasarca HEAD: Normocephalic. EYES: No scleral icterus. No injection or drainage. Slight periorbital edema noted. ENT: Orotracheally intubated NECK: Supple, trachea midline. No JVD or lymphadenopathy. RIJ Vascath in place CARDIOVASCULAR: S1-S2 normal with systolic murmur at the left sternal border. Large TV vegetation on bedside echo RESPIRATORY: Air entry is equal bilaterally, coarse rhonchi and crackles. Bilateral pig tail chest tubes in place GASTROINTESTINAL: Abdomen soft, non-tender, nondistended. MUSCULOSKELETAL: No cyanosis. Significant anasarca NEURO EXAM: RASS-2, Pupils are round, reactive to light. Continues spontaneous opening .Moves extremities spontaneously and follows commands when sedation is lightened B/L upper extremities. A/P Assessment and Plan Neuro IVDU: - Propofol Versed and fentanyl for vent synchrony and sedation - Watch closely for withdrawal - Daily sedation medication Resp: Acute hypoxemic respiratory failure Extensive septic emboli, consolidation of the lung Loculated left effusion, large right effusion - Continue ventilator support, no vent weaning until respiratory status, fluid overload improved - IR placed left chest tube 10/06 with more than 1 L exudative fluid out. - Placed right-sided pigtail chest tube at the bedside 10/09, brown tinged fluid approximately 1.1 L initial output - Discussed with cardiothoracic surgery Dr. Charles, patient may need decortication, if not adequately drained - Broad-spectrum antibiotics per ID, see below - DuoNeb q6hr and PRN -Consult general surgery for possible tracheostomy. ETT Day 8 CVS: Large tricuspid valve vegetation, and pulmonic vegetation Severe sepsis Fluid overload - Bedside echo shows mild tricuspid vegetation - Cardiology and CT surgery following - CARMNE 10/04: EF 40-45%. Large mobile vegetation on tricuspid valve, may be 2 separate vegetations, measures overall 4cm x 1.7cm. - Probable mobile density noted on the pulmonic valve. - See ID section for ABX - Dr. Charles CT surgery recommends 4-6 weeks of antibiotics and repeat echo - Fluid up by >16 kg, DC Bumex gtt-HD started 10/08. D/W Dr. Tapia- will repeat HD with fluid removal today GI: Hepatosplenomegaly Diarrhea - IV famotidine changed to Protonix due to persistent anemia - Tube feeds with Jevity - Check C Diff, if diarrhea persist, check stool for occult blood - Hepatitis C reactive - GI consulted - patient has hepatosplenomegaly, appreciate Dr. Xiong's input : Acute kidney failure with fluid overload Dehydration on admission - Currently fluid overloaded with worsening bilateral effusion. - DCd Bumex infusion started hemodialysis 10/08, see above - Strict I's and O's, Monitor trend of creatinine - Electrolytes replacement per ICU protocol ID: Tricuspid and pulmonic valve endocarditis Septic emboli to the lung Severe sepsis MSSA bacteremia - Discussed with Dr. Charles CT surgery 10/05/17 - He recommends 4-6 weeks of IV antibiotics with repeat echo, consideration for surgery if Vegetations persists - Ceftaroline, Cefazolin, Rifampin per ID Dr. Macias - Persistent MSSA bacteremia, cultures reviewed - F/u HIV, Hepatitis panel. Hepatitis C reactive Endo: -Electrolyte replacement per protocol Heme: Anemia requiring transfusion Thrombocytopenia - 1U PRBC today. LDH mildly elevated and haptoglobin normal - Monitor CBC, Coags - Thrombocytopenia most likely from sepsis and DIC DVT GI prophylaxis - TEDs SCDs - Started Heparin 5000 U sq q8 10/07, holding 10/08 due to blood loss - Protonix 40 q12 Critical Care: my billing statement This patient remains critically ill with one or more organ systems which are or may become a threat to life. I have spent in excess of 30 minutes discontinuously in the care and management of this patient. This time is exclusive of procedures, and includes, but is not limited to, evaluation of the patient, review of the medical record, discussions with family, consultants, nursing staff, or respiratory therapy, and documentation in the medical record. Patient remains critical with multiorgan failure and severe septic shock. He has huge tricuspid valve and probably pulmonic valve vegetations. His prognosis appears guarded. Renal failure worsening hemodialysis to be started , also transfuse for anemia. Respiratory failure and fluid overload persist. Physician Prema Dalton MD Oct 12, 2017 13:51
[2017-10-12] MEDS: VASOPRESSIN INJ 40 UNITS in DEXTROSE 5% IN WATER 100ML INJ 98 ML IV SCH ×2 (14:10)
[2017-10-12] MEDS: ACETAMINOPHEN 325 MG TAB PO PRN (17:19)
[2017-10-13] VITALS (21 sets, daily range): BP systolic 106–124; BP diastolic 56–67; PULSE 109–127; RESP 20–24; TEMP 98.9–102.3; O2SAT 96–100
[2017-10-13] MEDS: ACETAMINOPHEN 1000 MG/100 ML 100 ML IV PRN ×2 (00:22→23:23)
[2017-10-13] MEDS: CEFTAROLINE INJ 300 MG in SODIUM CHLORIDE 0.9% INJ 100 ML IV SCH ×2 (00:22→13:28)
[2017-10-13] MEDS: PROPOFOL 1000 MG/100 ML INJ 100 ML IV PRN ×5 (00:29→23:24)
[2017-10-13] MEDS: MIDAZOLAM 100 MG/100 ML INJ 100 ML IV PRN ×2 (03:15→23:25)
[2017-10-13] MEDS: RESP: ALBUTEROL 2.5 MG/IPRATROPIUM 0.5 MG NEB (SCH) NEB ×4 (03:48→21:00)
[2017-10-13] MEDS: CHLORHEXIDINE GLUCONATE 2 % 1 PACK (2 CLOTHS) TOP SCH (04:00)
--- NOTE | 2017-10-13 04:38 | RADRPT ---
EXAM DATE/TIME: 10/13/2017 03:22 [facility] COMPARISON: CHEST SINGLE AP, October 12, 2017, 4:07. INDICATIONS : Shortness of breath, severe sepsis. MEDICAL HISTORY : Sepsis. SURGICAL HISTORY : None. ENCOUNTER: Subsequent ACUITY: 1 week PAIN SCORE: Non-responsive. LOCATION: Bilateral chest FINDINGS: A single AP erect view of the chest was obtained again demonstrates the endotracheal tube in place wi th the tip approximately 2 cm above the sydni. The nasogastric tube and right internal jugular centr al venous line remain in place as well. There are bilateral small bore chest tubes in place with no p neumothorax. The heart size remains moderately enlarged. Hazy alveolar opacities remain in the perihi lar regions and both lung bases. The costophrenic angles remain mildly blunted. CONCLUSION: 1. The bilateral small bore chest tubes remain in place with no pneumothoraces. 2. Findings consistent with congestive heart failure. This appears slightly increased. Jorge Jang MD on October 13, 2017 at 4:34 Board Certified Radiologist. This report was verified electronically.
[2017-10-13] MEDS: HEPARIN SODIUM - SQ 10,000 UNITS/ML VIAL SQ SCH ×3 (06:03→20:27)
[2017-10-13 07:05] LABS: AUTOMATED NEUTROPHIL # 9.2 TH/MM3 (1.8-7.7); BASOPHIL # 0.1 TH/MM3 (0-0.2); BASOPHIL % 0.6 % (0.0-2.0); EOSINOPHIL # 0.2 TH/MM3 (0-0.4); EOSINOPHIL % 2.1 % (0.0-4.0); HEMATOCRIT 22.3 % (39.0-51.0); HEMOGLOBIN 7.6 GM/DL (13.0-17.0); LYMPH % 8.3 % (9.0-44.0); LYMPHOCYTE # 0.9 TH/MM3 (1.0-4.8); MEAN CELL VOLUME 85.4 FL (80.0-100.0); MEAN CORPUSCULAR HGB CONC 33.9 % (32.0-36.0); MEAN PLATELET VOLUME 8.1 FL (7.0-11.0); MONO % 8.4 % (0.0-8.0); NEUT % 80.6 % (16.0-70.0); PLATELET COUNT 170 TH/MM3 (150-450); RED BLOOD COUNT 2.61 MIL/MM3 (4.50-5.90); RED CELL DISTRIBUTION WIDTH 20.6 % (11.6-17.2); WHITE BLOOD COUNT 11.4 TH/MM3 (4.0-11.0)
[2017-10-13 07:35] LABS: BICARBONATE 29.4 MEQ/L (21.0-32.0); CREATININE 4.4 MG/DL (0.60-1.30); MAGNESIUM 2.4 MG/DL (1.5-2.5); PHOSPHORUS 6.4 MG/DL (2.5-4.9)
[2017-10-13] MEDS: fentaNYL DRIP 250 ML IV PRN ×2 (07:39→18:58)
[2017-10-13] MEDS: VASOPRESSIN INJ 40 UNITS in DEXTROSE 5% IN WATER 100ML INJ 98 ML IV SCH ×2 (07:40)
[2017-10-13] MEDS: CHLORHEXIDINE 0.12% (ORAL KIT) 15 ML CUP MT SCH ×2 (08:00→20:00)
[2017-10-13] MEDS: FLUTICASONE PROPIONATE 44 MCG/ACT 10.6 GM INHALER INH SCH ×2 (09:00→20:28)
[2017-10-13] MEDS: BENEPROTEIN POWDER 1 PACK OG-TUBE SCH ×3 (09:00→17:49)
[2017-10-13] MEDS: SODIUM CHLORIDE 0.9% FLUSH 10 ML FLUSH IV FLUSH SCH ×2 (09:00→20:28)
[2017-10-13] MEDS: DOCUSATE SODIUM 50 MG/SENNA 8.6 MG TAB PO SCH ×2 (09:42→20:26)
[2017-10-13] MEDS: RIFAMPIN 150 MG CAP PO SCH ×2 (09:42→20:25)
[2017-10-13] MEDS: METHOCARBAMOL 500 MG TAB PO SCH ×4 (09:42→20:26)
[2017-10-13] MEDS: PANTOPRAZOLE SODIUM 40 MG VIAL IV PUSH SCH ×2 (09:42→20:27)
[2017-10-13] MEDS: ALBUMIN 25% INJ 100 ML IV SCH ×2 (09:43→21:39)
[2017-10-13] MEDS: ARTIFICIAL TEARS OPTH OINT 3.5 APPLIC/3.5 GM TUBO EACH EYE SCH ×2 (09:49→20:41)
--- NOTE | 2017-10-13 10:05 | PD.CONS ---
cc: Jorge Jimenez MD HPI Service General Surgery Consult Requested By Dr. Najera Reason for Consult Tracheostomy tube placement Primary Care Physician No Primary Care Physician History of Present Illness This is a 27 year old male who came to the Emergency Department with complaints of generalized weakness and subjective fevers per reports on October 03. All of the history of present illness as well as past medical history is obtained for the electronic medical record. The patient was intubated on October 04 due to respiratory distress. The patient had a CARMEN done on the same day which showed large mobile vegetation noted on the tricuspid valve. Cardiothoracic surgery was consulted who recommended full antibiotic course for 4-6 weeks and a repeat echocardiogram to evaluate the tricuspid valve. The patient has remained intubated. It was noted that the patient has a large amount of thick secretions. A General Surgery consultation has been requested for evaluation of possible percutaneous tracheostomy tube placement. Review of Systems ROS Limitations: Clinical Condition, Intubated Past Family Social History Past Medical History Asthma Past Surgical History Reported none Reported Medications Per reports none Allergies: Coded Allergies: erythromycin base (Verified Allergy, Severe, Nausea/Vomiting, 10/03/17) raspberry (Unverified Allergy, Mild, 10/03/17) Active Ordered Medications Current Medications Medications (Trade) Dose Ordered Sig/Willem Route Start Time Stop Time Status Last Admin (NS Flush) 2 ml UNSCH PRN IV FLUSH 10/03/17 21:15 10/05/17 21:09 (NS Flush) 2 ml BID IV FLUSH 10/04/17 09:00 10/12/17 21:17 (Tylenol) 650 mg Q6H PRN PO 10/03/17 21:15 10/12/17 17:19 (Morphine Inj) 2 mg Q2H PRN IV PUSH 10/03/17 21:15 10/04/17 12:54 (Ativan Inj) 1 mg Q1H PRN IV PUSH 10/03/17 21:15 10/04/17 12:14 (Zofran Inj) 4 mg Q6H PRN IV PUSH 10/03/17 21:15 (Restoril) 15 mg HS PRN PO 10/03/17 21:15 (Duoneb Neb) 1 ampule Q2HR NEB PRN INH 10/03/17 21:15 Miscellaneous Information 1 Q361D XX 10/03/17 21:15 (Chlorhexidine 2% Cloth) Taper DAILY@04 TOP 10/04/17 04:00 09/30/18 03:59 10/12/17 04:00 (Chlorhexidine 2% Cloth) 3 pack UNSCH PRN TOP 10/03/17 21:15 (Renita-Colace) 1 tab BID PO 10/04/17 09:00 10/12/17 21:17 (Milk Of Magnesia Liq) 30 ml Q12H PRN PO 10/03/17 21:15 10/11/17 08:39 (Senokot) 17.2 mg Q12H PRN PO 10/03/17 21:15 (Dulcolax Supp) 10 mg DAILY PRN RECTAL 10/03/17 21:15 10/11/17 17:08 (Lactulose Liq) 30 ml DAILY PRN PO 10/03/17 21:15 10/11/17 17:08 (Flovent Hfa 44 Mcg Inh) 2 puff BID INH 10/04/17 09:00 10/12/17 01:55 (Robaxin) 500 mg QID PO 10/04/17 09:00 10/12/17 21:17 Acetaminophen 100 ml @ 400 mls/hr Q6H PRN IV 10/04/17 12:00 10/13/17 00:22 (Peridex 0.12% Liq) 15 ml BID@08,20 MT 10/04/17 20:00 10/12/17 20:00 Propofol 100 ml @ 3 mls/hr TITRATE PRN IV 10/04/17 14:45 10/13/17 06:04 Midazolam HCl 100 ml @ 2 mls/hr TITRATE PRN IV 10/04/17 14:45 10/13/17 03:15 Fentanyl Citrate 250 ml @ 5 mls/hr TITRATE PRN IV 10/04/17 14:45 10/13/17 07:39 (Beneprotein Powder) 2 pack TID OG-TUBE 10/05/17 13:00 10/12/17 17:36 Vasopressin 40 units/Dextrose 100 ml @ 6 mls/hr [id number] IV 10/06/17 09:00 Albumin Human 100 ml @ 60 mls/hr Q12H IV 10/07/17 10:00 10/12/17 21:16 (Heparin Inj) 5,000 units Q8HR SQ 10/07/17 14:00 10/13/17 06:03 (Rifampin) 300 mg Q12HR PO 10/08/17 11:30 10/12/17 21:16 Sodium Chloride 1,000 ml @ 0 mls/hr Q0M PRN OTHER 10/08/17 10:33 (Heparin Inj) 8,000 units UNSCH PRN IV FLUSH 10/08/17 10:45 Sodium Chloride 1,000 ml @ 200 mls/hr Q5H PRN IV 10/08/17 11:15 10/11/17 08:57 Sodium Chloride 1,000 ml @ 0 mls/hr Q0M PRN OTHER 10/08/17 11:15 (Mannitol Inj) 12.5 gm UNSCH PRN IV 10/08/17 11:15 Albumin Human 100 ml @ 60 mls/hr UNSCH PRN IV 10/08/17 11:30 10/10/17 13:17 (NS Flush) 5 ml UNSCH PRN IV FLUSH 10/08/17 11:15 (Heparin Inj) UNSCH PRN .XX 10/08/17 11:15 10/11/17 08:57 (Gentamicin Inj) 20 mg UNSCH PRN OTHER 10/08/17 11:15 10/11/17 08:58 (Zofran Inj) 4 mg UNSCH PRN IV PUSH 10/08/17 11:15 (Tylenol) 650 mg UNSCH PRN PO 10/08/17 11:15 (Benadryl) 25 mg UNSCH PRN PO 10/08/17 11:15 (Nitrostat Sl) 0.4 mg UNSCH PRN SL 10/08/17 11:30 (Catapres) 0.1 mg UNSCH PRN PO 10/08/17 11:30 (Epogen Inj) 10,000 units UNSCH PRN IV PUSH 10/08/17 11:30 10/11/17 08:58 (Gelfoam 12 Mm/7 Mm Top) 1 foam UNSCH PRN TOP 10/08/17 11:30 (Protonix Inj) 40 mg Q12HR IV PUSH 10/09/17 12:45 10/12/17 21:16 Ceftaroline Fosamil 300 mg/ Sodium Chloride 100 ml @ 100 mls/hr Q12H IV 10/10/17 01:00 10/13/17 00:22 (Lacrilube Opht Oint) 1 applic Q12HR EACH EYE 10/11/17 14:30 10/12/17 21:19 (Duoneb Neb) 1 ampule Q6HR NEB NEB 10/11/17 16:00 10/13/17 07:08 Cefazolin Sodium 1000 mg/Sodium Chloride 100 ml @ 200 mls/hr Q12H IV 10/12/17 05:00 11/21/17 04:59 10/13/17 06:03 Family History Unable to obtain Social History Unable to obtain but per report + tobacco use; negative for ETOH; + heroin use- --reports state he last used 2 months ago Physical Exam Vital Signs Vital Signs Date Time Temp Pulse Resp B/P (MAP) Pulse Ox O2 Delivery O2 Flow Rate FiO2 10/13/17 07:08 96 40 10/13/17 06:18 98.9 10/13/17 06:00 112 10/13/17 04:00 110 10/13/17 04:00 40 10/13/17 04:00 100.0 110 20 117/58 (77) 99 10/13/17 03:52 100 40 10/13/17 02:00 120 10/13/17 01:07 98 40 10/13/17 00:00 40 10/13/17 00:00 118 10/13/17 00:00 101.0 118 23 124/67 (86) 98 10/12/17 22:00 122 10/12/17 20:55 99 40 10/12/17 20:00 100.6 114 23 121/69 (86) 98 10/12/17 20:00 40 10/12/17 20:00 114 10/12/17 18:00 117 10/12/17 17:30 40 10/12/17 16:00 100.9 120 29 125/73 (90) 100 10/12/17 16:00 120 10/12/17 16:00 40 10/12/17 15:39 100 40 10/12/17 15:30 100.9 120 23 123/71 (88) 100 10/12/17 15:00 100.9 121 27 127/74 (91) 100 10/12/17 14:30 100.9 118 26 125/71 (89) 100 10/12/17 14:00 119 2 14:00 100.8 119 26 127/76 (93) 100 10/12/17 13:30 100.6 118 26 123/73 (90) 100 10/12/17 13:00 100.4 122 27 121/68 (85) 100 10/12/17 12:03 40 10/12/17 12:00 100.2 120 24 120/69 (86) 100 10/12/17 12:00 120 10/12/17 12:00 40 10/12/17 11:31 99 40 10/12/17 11:30 100.2 117 22 117/65 (82) 100 10/12/17 11:00 100.6 117 21 120/68 (85) 100 10/12/17 10:30 100.4 119 26 125/73 (90) 100 10/12/17 10:00 100.0 119 25 119/69 (86) 100 10/12/17 10:00 119 Physical Exam GENERAL: 27 year old male; critically ill resting intubated and on mechanical ventilation SKIN: Tattoos on BUE; chest; abdomen; BLE. Skin warm and dry. HEAD: Atraumatic. Normocephalic. EYES: Pupils equal and round. No scleral icterus. No injection or drainage. ENT: No nasal bleeding or discharge. Mucous membranes pink and moist. NECK: Trachea midline. RIGHT IJ VasCath in place with both ports capped. CARDIOVASCULAR: Tachycardic. RESPIRATORY: No accessory muscle use. Clear to auscultation. Breath sounds equal bilaterally. Bilateral pigtail chest tubes in place. GASTROINTESTINAL: Abdomen soft, non-tender, distended. MUSCULOSKELETAL: Extremities without clubbing or cyanosis. No obvious deformities. BUE and BLE mild edema; non pitting. NEUROLOGICAL: Unable to examine; patient is intubated and sedated. PSYCHIATRIC: Unable to examine; patient is intubated and sedated. Laboratory Laboratory Tests Test 10/13/17 06:10 White Blood Count 11.4 Red Blood Count 2.61 Hemoglobin 7.6 Hematocrit 22.3 Mean Corpuscular Volume 85.4 Mean Corpuscular Hemoglobin 29.0 Mean Corpuscular Hemoglobin Concent 33.9 Red Cell Distribution Width 20.6 Platelet Count 170 Mean Platelet Volume 8.1 Neutrophils (%) (Auto) 80.6 Lymphocytes (%) (Auto) 8.3 Monocytes (%) (Auto) 8.4 Eosinophils (%) (Auto) 2.1 Basophils (%) (Auto) 0.6 Neutrophils # (Auto) 9.2 Lymphocytes # (Auto) 0.9 Monocytes # (Auto) 1.0 Eosinophils # (Auto) 0.2 Basophils # (Auto) 0.1 CBC Comment DIFF FINAL Differential Comment Blood Urea Nitrogen 53 Creatinine 4.40 Random Glucose 83 Calcium Level 8.0 Phosphorus Level 6.4 Magnesium Level 2.4 Sodium Level 136 Potassium Level 4.2 Chloride Level 99 Carbon Dioxide Level 29.4 Anion Gap 8 Estimat Glomerular Filtration Rate 16 Date/Time Source Procedure Growth Status 10/10/17 10:27 Blood Peripheral Aerobic Blood Culture - Preliminary NO GROWTH IN 2 DAYS Resulted 10/10/17 10:27 Blood Peripheral Anaerobic Blood Culture - Preliminary NO GROWTH IN 2 DAYS Resulted 10/09/17 12:00 Fluid Pleural Fluid Fungal Smear - Final NO FUNGAL ELEMENTS SEEN. Resulted 10/09/17 12:00 Fluid Pleural Fluid Fungal Culture Pending Resulted 10/04/17 03:49 Sputum Expectorated Sputum Gram Stain - Final Complete 10/04/17 03:49 Sputum Expectorated Sputum Sputum Culture - Final HEAVY GROWTH NORMAL RESPIRATORY RHIANNON Complete 10/03/17 21:30 Urine Random Urine Legionella Antigen - Final PRESUMPTIVE NEGATIVE FOR LEGIONELLA P... Complete 10/03/17 21:30 Urine Random Urine Streptococcus pneumoniae Antigen (M - Final PRESUMPTIVE NEGATIVE FOR STREPTOCOCCU... Complete Result Diagram: 10/13/17 0610 10/13/17 0610 Imaging Last 48 hours Impressions Chest X-Ray 10/13/17 06 Signed Impressions: Service Date/Time: Friday, October 13, 2017 03:22 - CONCLUSION: 1. The bilateral small bore chest tubes remain in place with no pneumothoraces. 2. Findings consistent with congestive heart failure. This appears slightly increased. Jorge Jang MD Chest X-Ray 10/12/17 06 Signed Impressions: Service Date/Time: Thursday, October 12, 2017 04:07 - CONCLUSION: 1. Bilateral small caliber chest tubes without significant pneumothorax. NG tube, ET tube and right central line unchanged. Slight worsening of right basilar airspace disease since October 11. Christian Kaur MD Assessment and Plan Assessment and Plan 27 year old male with sepsis; s/p CARMEN with large mobile vegetation noted on tricuspid valve; VDRF -Vent per CCM -Hemodialysis per Nephrology -Plan for tentative bedside trach tomorrow morning -Obtain consents -Hold anticoagulation and tube feeding after MN -I have attempted to call mother (Next of kin) and unable to reach her or leave a voicemail; will try again later -Thank you for this consult; We will continue to follow Attending Note - Dr. Jimenez; pt. seen and evaluated Chest clear to auscultation. Discussed with Dr. Barraza; if patient to obtain valve replacement, trach is not desirable Will hold off for now The exam, history, and the medical decision-making described in the above note were completed with the assistance of the mid-level provider. I reviewed and agree with the findings presented. I attest that I had a [id number] encounter with the patient on the same day, and personally performed and documented my assessment and findings in the medical record. Discussed Condition With Leticia Resendiz Dr., RN/Industrial Production Manager ARNP Oct 13, 2017 10:05 Jorge Jimenez MD Oct 13, 2017 17:53
--- NOTE | 2017-10-13 11:08 | HHI.IDPN ---
Subjective Subjective Remarks chart reviewed X cover for Dr Macias is a 27 y/o CM with remote history of IV drug abuse, states he last used heroin 2 months ago, presents for evaluation of body aches, 7 days of diarrhea with development of subjective fever yesterday. Patient denies any nausea or vomiting. He denies any chest pain. This has developed within the last 24 hours. Patient does have a cough with clear sputum. Denies any prior history of endocarditis. Denies any abdominal pain. Does report some left back pain, worse while lying flat. He is well reports generalized weakness. Patient met criteria for sepsis on admission. Flu antigen negative. CXR with bilateral infiltrates. performed a bedside 2D ECHO and verbally reported a large ~4.5 cm vegetation on TV. CXR suspicious for septic emboli. Blood cultures drawn but it appears patient has received augmentin at some point and cultures may possibly be negative. At the time of my evaluation patient is in the ICU, appears in respiratory distress there is a plan for intubation and CARMEN today. UO ok. No diarrhea, no rash. Not on pressors. ID is consulted for evaluation and Mment of Severe Sepsis and Endocarditis. Overnight events reviewed. Persistent fevers low grade. Pt has 3 vegetations on tricuspid and pulmonic valve. No rash No diarrhea UO low. Underwent HD for 4 days. Remains on vent. FiO2 40%, PEEP 5. Secretions moderate pale yellow. Has Bilateral CTs in place. Antibiotics Ancef IV Teflaro IV rifampin Lines Line sites with no e.o infection Past Medical History Past Medical History Asthma HCV Past Surgical History No surgical history per records. Allergies: Coded Allergies: erythromycin base (Verified Allergy, Severe, Nausea/Vomiting, 10/03/17) raspberry (Unverified Allergy, Mild, 10/03/17) Objective . Vital Signs Date Time Temp Pulse Resp B/P (MAP) Pulse Ox O2 Delivery O2 Flow Rate FiO2 10/13/17 10:19 100 40 10/13/17 10:19 40 10/13/17 10:02 98 40 10/13/17 07:08 96 40 10/13/17 06:18 98.9 10/13/17 06:00 112 10/13/17 04:00 110 10/13/17 04:00 40 10/13/17 04:00 100.0 110 20 117/58 (77) 99 2/19/18 03:52 100 40 10/13/17 02:00 120 10/13/17 01:07 98 40 10/13/17 00:00 40 10/13/17 00:00 118 10/13/17 00:00 101.0 118 23 124/67 (86) 98 10/12/17 22:00 122 10/12/17 20:55 99 40 10/12/17 20:00 100.6 114 23 121/69 (86) 98 10/12/17 20:00 40 10/12/17 20:00 114 10/12/17 18:00 117 10/12/17 17:30 40 10/12/17 16:00 100.9 120 29 125/73 (90) 100 10/12/17 16:00 120 10/12/17 16:00 40 10/12/17 15:39 100 40 10/12/17 15:30 100.9 120 23 123/71 (88) 100 10/12/17 15:00 100.9 121 27 127/74 (91) 100 10/12/17 14:30 100.9 118 26 125/71 (89) 100 10/12/17 14:00 119 10/12/17 14:00 100.8 119 26 127/76 (93) 100 10/12/17 13:30 100.6 118 26 123/73 (90) 100 10/12/17 13:00 100.4 122 27 121/68 (85) 100 10/12/17 12:03 40 10/12/17 12:00 100.2 120 24 120/69 (86) 100 10/12/17 12:00 120 10/12/17 12:00 40 10/12/17 11:31 99 40 10/12/17 11:30 100.2 117 22 117/65 (82) 100 10/13/17 10/13/17 10/14/17 15:00 23:00 07:00 Intake Total 350 ml Balance 350 ml IV Total 350 ml . Laboratory Tests Test 10/12/17 04:20 10/13/17 06:10 White Blood Count 11.7 TH/MM3 11.4 TH/MM3 Red Blood Count 2.80 MIL/MM3 2.61 MIL/MM3 Hemoglobin 8.1 GM/DL 7.6 GM/DL Hematocrit 24.0 % 22.3 % Mean Corpuscular Volume 85.6 FL 85.4 FL Mean Corpuscular Hemoglobin 28.9 PG 29.0 PG Mean Corpuscular Hemoglobin Concent 33.8 % 33.9 % Red Cell Distribution Width 20.1 % 20.6 % Platelet Count 174 TH/MM3 170 TH/MM3 Mean Platelet Volume 8.6 FL 8.1 FL Neutrophils (%) (Auto) 84.2 % 80.6 % Lymphocytes (%) (Auto) 6.1 % 8.3 % Monocytes (%) (Auto) 7.5 % 8.4 % Eosinophils (%) (Auto) 1.7 % 2.1 % Basophils (%) (Auto) 0.5 % 0.6 % Neutrophils # (Auto) 9.8 TH/MM3 9.2 TH/MM3 Lymphocytes # (Auto) 0.7 TH/MM3 0.9 TH/MM3 Monocytes # (Auto) 0.9 TH/MM3 1.0 TH/MM3 Eosinophils # (Auto) 0.2 TH/MM3 0.2 TH/MM3 Basophils # (Auto) 0.1 TH/MM3 0.1 TH/MM3 CBC Comment DIFF FINAL DIFF FINAL Differential Comment Laboratory Tests Test 10/12/17 04:20 10/13/17 06:10 Blood Urea Nitrogen 40 MG/DL 53 MG/DL Creatinine 3.50 MG/DL 4.40 MG/DL Random Glucose 89 MG/DL 83 MG/DL Total Protein 8.1 GM/DL Albumin 2.4 GM/DL Calcium Level 8.0 MG/DL 8.0 MG/DL Phosphorus Level 5.5 MG/DL 6.4 MG/DL Magnesium Level 2.6 MG/DL 2.4 MG/DL Alkaline Phosphatase 199 U/L Aspartate Amino Transf (AST/SGOT) 37 U/L Alanine Aminotransferase (ALT/SGPT) 9 U/L Total Bilirubin 1.1 MG/DL Sodium Level 138 MEQ/L 136 MEQ/L Potassium Level 3.9 MEQ/L 4.2 MEQ/L Chloride Level 101 MEQ/L 99 MEQ/L Carbon Dioxide Level 30.4 MEQ/L 29.4 MEQ/L Anion Gap 7 MEQ/L 8 MEQ/L Estimat Glomerular Filtration Rate 21 ML/MIN 16 ML/MIN Imaging Last Impressions Chest X-Ray 10/04/17 0000 Signed Impressions: Service Date/Time: Wednesday, October 04, 2017 16:11 - CONCLUSION: 1. ET tube in good position. 2. Significant increase in bilateral airspace opacities, now with consolidation in the lower lungs bilaterally. Mat Alejandra MD Chest CT 10/04/17 0000 Signed Impressions: Service Date/Time: Wednesday, October 04, 2017 21:18 - CONCLUSION: Abnormal diffuse airspace opacities throughout both lungs with bilateral lower lobe consolidation and patchy focal areas of consolidation the remainder of the lungs. There is also bilateral pleural effusions with probable loculation. Mat Alejandra MD Abdomen/Pelvis CT 10/04/17 0000 Signed Impressions: Service Date/Time: Wednesday, October 04, 2017 21:21 - CONCLUSION: 1. Severe hepatosplenomegaly without focal lesion. 2. Free fluid in the pelvis. 3. Abnormal lower lungs and pleural effusions. 4. Prominent varices about the splenic vein. Mat Alejandra MD Physical Exam GENERAL: This is a well-nourished, well-developed patient, in no apparent distress. SKIN: No rashes, ecchymoses or lesions. Cool and dry. Multiple tattoos. HEAD: Atraumatic. Normocephalic. No temporal or scalp tenderness. EYES: Pupils equal round and reactive. Extraocular motions intact. ENT: Intubated. NECK: Trachea midline. Supple, nontender, no meningeal signs. CARDIOVASCULAR: ? systolic murmur. RESPIRATORY: Decreased air entry bilaterally bases. GASTROINTESTINAL: Abdomen soft, distended, ? RUQ tenderness MUSCULOSKELETAL: Extremities without clubbing, cyanosis, or edema. NEUROLOGICAL: Sedated, moves extremities. Psych cooperative IV line sites with no e.o infection. Assessment & Plan Remarks Severe Sepsis present on admission MSSA endocarditis. MSSA bacteremia persistent Bilateral pleural effusions: left side appears loculated possible empyema. TV and Pulmonic valve endocarditis Pneumonia: septic emboli, aspiration pneumonia. IVDA: heroin, cocaine and methamphetamine. Acute renal failure: Sepsis, meds,contrast. - on HD Recs: Continue Teflaro IV (salvage Rx for endocarditis given persistent bacteremia and renal failure) Continue Ancef IV (will be the primary drug once bacteremia controlled) Continue Rifampin oral. Repeat Blood cultures (1 line, 1 periphery) dw : consider repeat CT C/A/P concern for septic emboli to vital organs ( spleen, liver, kidney, ascites) dw RN RUE with PIV with erythema now discontinued. Was placed in bacteremic phase. Doppler UE bilaterally to r.o septic thrombophlebitis. Follow cultures Follow clinically d/w Lakia Colby MD Oct 13, 2017 11:08
[2017-10-13] MEDS ORDERED: MISC INFORMATION OTHER ONE (11:30)
--- NOTE | 2017-10-13 12:43 | RADRPT ---
EXAM DATE/TIME: 10/13/2017 11:25 [facility] COMPARISON: No previous studies available for comparison. INDICATIONS : Arm swelling. MEDICAL HISTORY : Methicillin-resistant Staphylococcus aureus. MRSA. Asthma. Sputum production. Anxiety. Dyspnea. SURGICAL HISTORY : ENCOUNTER: Initial ACUITY: 1 day PAIN SCORE: Non-responsive LOCATION: Bilateral Arm. FINDINGS: RIGHT UPPER EXTREMITY: There is spontaneous flow documented in the brachial, basilic, cephalic, axillary, and subclavian vei ns. The vessels are compressible and augmentation response is documented. No filling defects are se en. The flow is phasic with respiration. Direction of flow in the jugular vein is caudal. LEFT UPPER EXTREMITY: There is spontaneous flow documented in the brachial, basilic, cephalic, axillary, and subclavian vei ns. The vessels are compressible and augmentation response is documented. No filling defects are se en. The flow is phasic with respiration. Direction of flow in the jugular vein is caudal. CONCLUSION: Normal examination. Christian Kaur MD on October 13, 2017 at 12:38 Board Certified Radiologist. This report was verified electronically.
--- NOTE | 2017-10-13 13:22 | HHI.GIFU ---
Subjective Remarks Pt remains sedated and mechanically ventilated Abdomen distended and firm TF currently off because the stopcock came dislodged (Leonora Graf) Objective Vitals I&O Vital Signs Date Time Temp Pulse Resp B/P (MAP) Pulse Ox O2 Delivery O2 Flow Rate FiO2 10/13/17 12:00 127 10/13/17 10:19 100 40 10/13/17 10:19 40 10/13/17 10:02 98 40 10/13/17 10:00 122 10/13/17 08:00 114 10/13/17 07:08 96 40 10/13/17 06:18 98.9 10/13/17 06:00 112 10/13/17 04:00 110 10/13/17 04:00 40 10/13/17 04:00 100.0 110 20 117/58 (77) 99 10/13/17 03:52 100 40 10/13/17 02:00 120 10/13/17 01:07 98 40 10/13/17 00:00 40 10/13/17 00:00 118 10/13/17 00:00 101.0 118 23 124/67 (86) 98 10/12/17 22:00 122 10/12/17 20:55 99 40 10/12/17 20:00 100.6 114 23 121/69 (86) 98 10/12/17 20:00 40 18 20:00 114 10/12/17 18:00 117 10/12/17 17:30 40 10/12/17 16:00 100.9 120 29 125/73 (90) 100 10/12/17 16:00 120 10/12/17 16:00 40 18 15:39 100 40 18 15:30 100.9 120 23 123/71 (88) 100 18 15:00 100.9 121 27 127/74 (91) 100 10/12/17 14:30 100.9 118 26 125/71 (89) 100 18 14:00 119 10/12/17 14:00 100.8 119 26 127/76 (93) 100 10/12/17 13:30 100.6 118 26 123/73 (90) 100 I/O 10/12/1710/12/17 10/13/17 10/13/17 10/13/17 07:00 15:00 23:00 07:00 15:00 23:00 Intake Total 1141 ml 198 ml 1265 ml 1207 ml 350 ml Output Total 408 ml 200 ml 212 ml Balance 733 ml 198 ml 1065 ml 995 ml 350 ml IV Total 601 ml 198 ml 690 ml 600 ml 350 ml Tube Feeding 540 ml 575 ml 527 ml Tube Irrigant 80 ml Output Urine Total 150 ml 200 ml 200 ml Stool Total 250 ml Chest Tube Drainage Total 8 ml 0 ml 12 ml # Bowel Movements 2 2 1 Laboratory Laboratory Tests Test 10/13/17 06:10 White Blood Count 11.4 Red Blood Count 2.61 Hemoglobin 7.6 Hematocrit 22.3 Mean Corpuscular Volume 85.4 Mean Corpuscular Hemoglobin 29.0 Mean Corpuscular Hemoglobin Concent 33.9 Red Cell Distribution Width 20.6 Platelet Count 170 Mean Platelet Volume 8.1 Neutrophils (%) (Auto) 80.6 Lymphocytes (%) (Auto) 8.3 Monocytes (%) (Auto) 8.4 Eosinophils (%) (Auto) 2.1 Basophils (%) (Auto) 0.6 Neutrophils # (Auto) 9.2 Lymphocytes # (Auto) 0.9 Monocytes # (Auto) 1.0 Eosinophils # (Auto) 0.2 Basophils # (Auto) 0.1 CBC Comment DIFF FINAL Differential Comment Blood Urea Nitrogen 53 Creatinine 4.40 Random Glucose 83 Calcium Level 8.0 Phosphorus Level 6.4 Magnesium Level 2.4 Sodium Level 136 Potassium Level 4.2 Chloride Level 99 Carbon Dioxide Level 29.4 Anion Gap 8 Estimat Glomerular Filtration Rate 16 Date/Time Source Procedure Growth Status 10/10/17 10:27 Blood Peripheral Aerobic Blood Culture - Preliminary NO GROWTH IN 3 DAYS Resulted 10/10/17 10:27 Blood Peripheral Anaerobic Blood Culture - Preliminary NO GROWTH IN 3 DAYS Resulted 10/09/17 12:00 Fluid Pleural Fluid Fungal Smear - Final NO FUNGAL ELEMENTS SEEN. Resulted 10/09/17 12:00 Fluid Pleural Fluid Fungal Culture Pending Resulted 10/04/17 03:49 Sputum Expectorated Sputum Gram Stain - Final Complete 10/04/17 03:49 Sputum Expectorated Sputum Sputum Culture - Final HEAVY GROWTH NORMAL RESPIRATORY RHIANNON Complete 10/03/17 21:30 Urine Random Urine Legionella Antigen - Final PRESUMPTIVE NEGATIVE FOR LEGIONELLA P... Complete 10/03/17 21:30 Urine Random Urine Streptococcus pneumoniae Antigen (M - Final PRESUMPTIVE NEGATIVE FOR STREPTOCOCCU... Complete Imaging Last Impressions Chest X-Ray 10/13/17 0600 Signed Impressions: Service Date/Time: Friday, October 13, 2017 03:22 - CONCLUSION: 1. The bilateral small bore chest tubes remain in place with no pneumothoraces. 2. Findings consistent with congestive heart failure. This appears slightly increased. Jorge Jang MD Upper Extremity Ultrasound 10/13/17 0000 Signed Impressions: Service Date/Time: Friday, October 13, 2017 11:25 - CONCLUSION: Normal examination. Christian Kaur MD Abdomen X-Ray 10/10/17 0000 Signed Impressions: Service Date/Time: Tuesday, October 10, 2017 16:46 - CONCLUSION: Negative for free air or obstruction. Rahul Yarbrough MD FACR Chest Tube Insertion 10/06/17 0000 Signed Impressions: Service Date/Time: Friday, October 06, 2017 15:37 - CONCLUSION: Uncomplicated chest tube placement as above. Emerson Hui MD Chest CT 10/04/17 0000 Signed Impressions: Service Date/Time: Wednesday, October 04, 2017 21:18 - CONCLUSION: Abnormal diffuse airspace opacities throughout both lungs with bilateral lower lobe consolidation and patchy focal areas of consolidation the remainder of the lungs. There is also bilateral pleural effusions with probable loculation. Mat Alejandra MD Abdomen/Pelvis CT 10/04/17 0000 Signed Impressions: Service Date/Time: Wednesday, October 04, 2017 21:21 - CONCLUSION: 1. Severe hepatosplenomegaly without focal lesion. 2. Free fluid in the pelvis. 3. Abnormal lower lungs and pleural effusions. 4. Prominent varices about the splenic vein. Mat Alejandra MD Physical Exam HEENT: Normocephalic CHEST: Synchronized with ventilator, mechanically ventilated via ETT CARDIAC: Sinus tachycardia ABDOMEN: Distended, firm, bowel sounds faint EXTREMITIES: Extremity edema GANG BOSS: Sedated (Leonora Graf) Assessment and Plan Plan ASSESSMENT - anemia - normocytic hgb 8.8 on admission and trending down. 2/2 sepsis, hemodilution, spherocytosis? no obvious bleeding hemoccult pending. + family hx spherocytosis. CT showed hepatosplenomegaly severe, splenic vein varices s/p 4 X PRBC, 5th unit pending. - elevated LFTs - unclear etiology could be shock liver. he is + hep c ab. - septic emboli, respiratory failiure, IVDU, fluid overload, endocarditis and valve vegetations, ZEUS - CT surgery, ID, nephrology following 10/10/17 Currently patient remains in the intensive care setting, receiving hemodialysis at this time. Does have some abdominal bloating, no obvious bowel sounds heard. Possible ileus? 10/11/17 KUB neg. decrease HH today, hgb 7.6. LFTs trending down. [place] quant 64055. MARTÍN pos. rest of liver w/u pending on HD for ZEUS, fluid overload. 10/12/17 LFTs trending down. tolerating TF. MARTÍN pos. rest of liver w/u pending. HH stable. (10/13) --> Abdomen distended and firm. Spoke with RN who states pt was tolerating TF without high residuals. Currently turned off and OG clamped because stopcock on tubing came dislodged during US procedure earlier. Last BM was yesterday, she reports no obvious source of GIB. Drop in H/H currently 7.6/22.3, last transfused Oct 09. Likely multifactorial, given decreased renal function. LFTs improving: AST-37 ALT-9 Alk phos-199 T bili- 1.1. Liver ERICKSON --> Hep C antibody (+), RNA 10,700, genotype pending. MARTÍN positive, titer pending. ASMA negative. Ceruloplasmin-38. Iron-19 Ferritin-1217. Liver imaging (CT abdomen and pelvis 10/04) --> Hepatomegaly with superior inferior dimension 24 cm. No focal lesions seen. No biliary duct dilation. No calcified gallstones. Pt remains mechanically ventilated via ETT, tracheostomy on hold because pt may be needing a valve replacement. Spoke with Dr. Barraza. ZEUS- dialysis PLAN - Rest of liver ERICKSON pending - Monitor LFTs - Monitor CBC - PEG at time of tracheostomy - TF - Further recommendations to follow based on clinical course and results of above Pt has been seen and examined by myself and Dr. Boyd and this note is written on his behalf (Leonora Graf) Physician Comments Seen and examined with STAFF REGISTERED NURSE, no active bleeding. Has Hep C. Bacterial endocarditis. (Ravi Boyd MD) Leonora Graf Oct 13, 2017 13:21 Ravi Boyd MD Oct 13, 2017 16:16
--- NOTE | 2017-10-13 14:00 | HHI.CCPN ---
Subjective Remarks/Hospital Course 27-year-old male with remote history of IV drug abuse, states he last used heroin 2 months ago, presents for evaluation of 8 days of body aches, 7 days of diarrhea with development of subjective fever yesterday. Patient denies any nausea or vomiting. He denies any chest pain. States that he is short of breath and feels anxious. This has developed within the last 24 hours. Patient does have a cough with clear sputum. Denies any prior history of endocarditis. Denies any abdominal pain. Does report some left back pain, worse while lying flat. He is well reports generalized weakness. 10/04/17: He is critically ill, remains febrile up to 103, tachycardic diaphoretic. large tricuspid valve vegetation on bedside echo, formal echo pending. Infectious disease consulted, CT surgery consult ordered. D/W Dr. Macias and Dr. Charles. CARMEN/fountain roller assembler consult ordered. Hb 6.6 getting 2U PRBC 10/05: Remains critically ill intubated sedated. TE on yesterday TEF 40-45%. Large mobile vegetation noted on the tricuspid valve, may be 2 separate vegetations, measures overall 4cm x 1.7cm. Probable mobile density noted on the pulmonic valve. CT of the chest shows extensive septic emboli and consolidation , with loculated appearing effusion on the left base. Dr. Charles CT surgery recommends 4-6 weeks of IV antibiotics followed by repeat echo, considering surgery at that time if no improvement 10/06: Worsening CXR, with bibasilar worsening infiltrates and effusion. IR to place CT-guided left chest tube today for loculated effusion. Fluid overloaded approximately 8 kg. IV Lasix 40 mg x1. MSSA bacteremia persists 10/07: Remains intubated sedated remains critical severe volume overload with worsening renal function creatinine 3, weight up by at least [address] him on Bumex infusion and consult nephrology. Patient remains slightly oliguric 800 mL urine output in 24 hours. Chest x-ray showed bilateral infiltrates and worsening right effusion 10/08: Remains intubated heavily sedated oliguric. Continues to have positive fluid balance creatinine increased to 4.3. Hemoglobin 6.9. Currently on Bumex infusion with not adequate response. Persistently bacteremic. Bilateral infiltrates on chest x-ray with moderate right effusion 10/09: Intubated sedated remains severely fluid overloaded started on hemodialysis yesterday with 4 L removed still positive fluid balance. Hemoglobin 6.81 unit PRBC transfusion ordered along with calcium replacement. GI consulted for further workup. Large pleural effusion on right side plan for pigtail chest tube placement 10/10: Intubated sedated. Had HD with 25L removed yesterday. right chest tube placed yesterday 1.2 L of old blood tinged effusion drained-Gram stain negative. Chest x-ray shows improvement in effusion. Remains severely fluid overloaded still remains 16-17 kg up. Discussed with nephrology plan for HD with maximum fluid removal as tolerated 10/11: The patient continues on sedation intubated, opens eyes spontaneously, not follow commands. The patient underwent hemodialysis yesterday approximately 3 L off. Bilateral chest tubes no leak noted. Minimal output left chest tube. 10/12: Daily sedation vacation initiated, opens eyes spontaneously, and following commands as squeezing hands bilaterally. Movement of lower extremities. She noted to have very thick secretions. Hemodialysis performed yesterday, approximately 3 L off. Patient noted to have thick copious secretions from airway, with worsening airspace disease on the right. Gen. surgery consulted for tracheostomy. 10/13: Patient remains critically ill opens eyes and follows commands on sedation hold. Did not tolerate CPAP trial today. Cancelled gen surgery consult for trach due to possible need for valve surgery. Continues to spike fever. Plan for changing line today Objective Vital Signs Date Time Temp Pulse Resp B/P (MAP) Pulse Ox O2 Delivery O2 Flow Rate FiO2 10/13/17 13:21 98 40 10/13/17 12:00 127 10/13/17 06:18 98.9 10/13/17 04:00 20 117/58 (77) Intake and Output 10/13/17 10/13/17 10/13/17 07:59 15:59 23:59 Intake Total 1557 ml Output Total 212 ml Balance 1345 ml Result Diagram: 10/13/1710 10/13/17 06 Imaging Last Impressions Chest X-Ray 10/11/17 0600 Signed Impressions: Service Date/Time: Wednesday, October 11, 2017 03:30 - CONCLUSION: Mild improvement in pulmonary edema with residual edema remaining. Left basilar opacity is present may be due to a combination of consolidation and or pleural effusion. All Kim MD Abdomen X-Ray 10/10/17 0000 Signed Impressions: Service Date/Time: Tuesday, October 10, 2017 16:46 - CONCLUSION: Negative for free air or obstruction. Rahul Yarbrough MD FACR Chest Tube Insertion 10/06/17 0000 Signed Impressions: Service Date/Time: Friday, October 06, 2017 15:37 - CONCLUSION: Uncomplicated chest tube placement as above. Emerson Hui MD Chest CT 10/04/17 0000 Signed Impressions: Service Date/Time: Wednesday, October 04, 2017 21:18 - CONCLUSION: Abnormal diffuse airspace opacities throughout both lungs with bilateral lower lobe consolidation and patchy focal areas of consolidation the remainder of the lungs. There is also bilateral pleural effusions with probable loculation. Mat Alejandra MD Abdomen/Pelvis CT 10/04/17 0000 Signed Impressions: Service Date/Time: Wednesday, October 04, 2017 21:21 - CONCLUSION: 1. Severe hepatosplenomegaly without focal lesion. 2. Free fluid in the pelvis. 3. Abnormal lower lungs and pleural effusions. 4. Prominent varices about the splenic vein. Mat Alejandra MD Objective Remarks GENERAL: Well-nourished, well-developed patient. Critically ill, intubated and sedated SKIN: Warm and dry. Extensive tattoos limits skin exam. Anasarca HEAD: Normocephalic. EYES: No scleral icterus. No injection or drainage. Slight periorbital edema noted. ENT: Orotracheally intubated NECK: Supple, trachea midline. No JVD or lymphadenopathy. RIJ Vascath in place. Left subclavian central line in place CARDIOVASCULAR: S1-S2 normal with systolic murmur at the left sternal border. Large TV vegetation on bedside echo RESPIRATORY: Air entry is equal bilaterally, coarse rhonchi and crackles. Bilateral pig tail chest tubes in place. Place right to water seal for 24 hours GASTROINTESTINAL: Abdomen soft, non-tender, nondistended. MUSCULOSKELETAL: No cyanosis. Significant anasarca NEURO EXAM: RASS-2, Pupils are round, reactive to light. Spontaneous eye opening .Moves extremities spontaneously and follows commands when sedation is lightened B/L upper extremities. A/P Assessment and Plan Neuro IVDU: - Propofol Versed and fentanyl for vent synchrony and sedation - Watch closely for withdrawal - Daily sedation medication as tolerated Resp: Acute hypoxemic respiratory failure Extensive septic emboli, consolidation of the lung Loculated left effusion, large right effusion - Continue ventilator support, no vent weaning until respiratory status, fluid overload improved - IR placed left chest tube 10/06 with more than 1 L exudative fluid out. - Placed right-sided pigtail chest tube at the bedside 10/09, brown tinged fluid approximately 1.1 L initial output, now output is minimum - Water seal right chest tube with CXR in am, remove if nor PTX on 10/14/17 - Discussed with cardiothoracic surgery Dr. Charles, patient may need decortication, if not adequately drained - Broad-spectrum antibiotics per ID, see below - DuoNeb q6hr and PRN - Avoid tracheostomy as Dr. Charles may do valve surgery to remove vegetation if infection not clearing with ABX CVS: Large tricuspid valve vegetation, and pulmonic vegetation Severe sepsis Fluid overload - Bedside echo shows mild tricuspid vegetation - Cardiology and CT surgery following - CARMEN 10/04: EF 40-45%. Large mobile vegetation on tricuspid valve, may be 2 separate vegetations, measures overall 4cm x 1.7cm. - Probable mobile density noted on the pulmonic valve. - See ID section for ABX - Dr. Charles CT surgery recommends 4-6 weeks of antibiotics and repeat echo - He may do valve surgery to remove vegetation if infection not clearing with ABX - Fluid up by >15 kg, HD started 10/08. Dr. Tapia GI: Hepatosplenomegaly Diarrhea - IV Protonix due to persistent anemia. GI following - Tube feeds with Jevity - Check C Diff, if diarrhea persist - Hepatitis C reactive - GI consulted - patient has hepatosplenomegaly, appreciate Dr. Xiong's input : Acute kidney failure with fluid overload Dehydration on admission - Currently fluid overloaded with worsening bilateral effusion. - DCd Bumex infusion started hemodialysis 10/08, see above - Strict I's and O's, Monitor trend of creatinine - Electrolytes replacement per ICU protocol ID: Tricuspid and pulmonic valve endocarditis Septic emboli to the lung Severe sepsis MSSA bacteremia - Discussed with Dr. Charles CT surgery 10/05/17 - He recommends 4-6 weeks of IV antibiotics with repeat echo, consideration for surgery if Vegetations persists - Ceftaroline, Cefazolin, Rifampin per ID Dr. Macias - Persistent MSSA bacteremia, cultures reviewed - F/u HIV, Hepatitis panel. Hepatitis C reactive Endo: -Electrolyte replacement per protocol Heme: Anemia requiring transfusion Thrombocytopenia - 1U PRBC today. LDH mildly elevated and haptoglobin normal - Monitor CBC, Coags - Thrombocytopenia most likely from sepsis and DIC DVT GI prophylaxis - TEDs SCDs - Started Heparin 5000 U sq q8 10/07, holding 10/08 due to blood loss - Protonix 40 q12 Critical Care: my billing statement This patient remains critically ill with one or more organ systems which are or may become a threat to life. I have spent in excess of 30 minutes discontinuously in the care and management of this patient. This time is exclusive of procedures, and includes, but is not limited to, evaluation of the patient, review of the medical record, discussions with family, consultants, nursing staff, or respiratory therapy, and documentation in the medical record. Patient remains critical with multiorgan failure and severe septic shock. He has huge tricuspid valve and probably pulmonic valve vegetations. His prognosis appears guarded. Renal failure worsening hemodialysis to be started , also transfuse for anemia. Respiratory failure and fluid overload persist. Jaki Barraza MD Oct 13, 2017 14:00
--- NOTE | 2017-10-13 15:28 | PD.PROCEDR ---
Central Line Procedure REASON FOR PROCEDURE Central venous access PROCEDURE PERFORMED Central line placement: Right subclavian central line CONSENT Informed consent for procedure was obtained from family. The risks and benefits of the procedure were discussed to include but limited to bleeding, clot formation, infection, and even . ANESTHESIA Local injection of 1% Lidocaine DESCRIPTION OF THE PROCEDURE The patient was placed in supine, mild Trendelenburg position. The area was exposed and cleansed with ChloraPrep, times two. Large sterile drape was used to cover the patient, with the site exposed, under sterile conditions including cap, face mask, sterile gown, and sterile gloves. On single attempt, the introducer needle was inserted with negative pressure in syringe and venous flash was obtained. The guide wire was then advanced without any restriction and the needle was removed. The dilator was used without any complications. Using Seldinger technique the left subclavian central line catheter was advanced over the guide wire to a depth of 16 centimeters. The guide wire was removed. All ports were aspirated with dark venous blood return and flushed easily with sterile saline. All ports were capped. Antibiotic disc was placed around central line at puncture site. The central line was secured to the skin with two interrupted 2.0 silk sutures. The area was bandaged with sterile see- through central line bandage. COMPLICATIONS: No apparent complications ESTIMATED BLOOD LOSS: Less than 1 cc. Jaki Barraza MD Oct 13, 2017 15:28
[2017-10-13 15:59] LABS: ANA PATTERN DIFFUSE
--- NOTE | 2017-10-13 16:15 | RADRPT ---
EXAM DATE/TIME: 10/13/2017 15:22 [facility] COMPARISON: CHEST SINGLE AP, October 13, 2017, 3:22. INDICATIONS : Evaluate central line placement MEDICAL HISTORY : Sepsis. pneumothorax SURGICAL HISTORY : bilateral chest tube ENCOUNTER: Subsequent ACUITY: 1 week PAIN SCORE: Non-responsive. LOCATION: Bilateral chest FINDINGS: Interval placement of right central line with tip projected near the origin of the superior vena cava . No evidence of pneumothorax. Left central line stable in position. Left chest drainage catheter in the upper chest and right chest catheter in the lower chest and gastric tube in place. No evidenc e of pneumothorax. Endotracheal tube tip 2.3 cm above the sydni. The patchy infiltrates in the rig ht lower lung and consolidative infiltrates in left lower lung are similar to prior. CONCLUSION: Right central line tip good position. No evidence of pneumothorax. The Mat Alejandra MD on October 13, 2017 at 16:12 Board Certified Radiologist. This report was verified electronically.
--- NOTE | 2017-10-13 19:18 | HHI.NPPN ---
Subjective History of Present Illness Patient is 27-year-old male who reported to ER with body aches, 7 days of diarrhea with development fever. Past medical history of IV drug use. Patient is sedated and ventilated FiO2 at 40 %. Nephrology is consulted for ZEUS and fluid over load status. Patients creatinine is 3.02 and GFR 25ml/min. Patient is UOP at 800cc for last 24 hours. Weight has increased by over 10 kg since admission. IVF's have been stopped and lasix has been given. Patient has endocarditis with large tricuspid valve vegetation, and pulmonic vegetation. Noted to have bacteremia with hypotension with SBP in the 90's. Additional Remarks Patient remain intubated and sedated, clinically same, now spiking fever. Objective Data Data 10/13/17 10/14/17 19:00 07:00 Intake Total 350 ml Balance 350 ml IV Total 350 ml Vital Signs Date Time Temp Pulse Resp B/P (MAP) Pulse Ox O2 Delivery O2 Flow Rate FiO2 10/13/17 18:00 109 10/13/17 16:00 100.7 111 24 106/56 (73) 99 10/13/17 16:00 111 10/13/17 16:00 40 10/13/17 15:47 99 40 10/13/17 14:00 126 10/13/17 13:21 98 40 10/13/17 12:00 127 10/13/17 12:00 102.3 127 24 123/67 (85) 98 10/13/17 12:00 40 10/13/17 10:19 100 40 10/13/17 10:19 40 10/13/17 10:02 98 40 10/13/17 10:00 122 10/13/17 08:00 114 10/13/17 08:00 40 10/13/17 08:00 100.4 114 20 119/66 (83) 99 10/13/17 07:08 96 40 10/13/17 06:18 98.9 10/13/17 06:00 112 10/13/17 04:00 110 10/13/17 04:00 40 10/13/17 04:00 100.0 110 20 117/58 (77) 99 10/13/17 03:52 100 40 10/13/17 02:00 120 10/13/17 01:07 98 40 2/19/18 00:00 40 10/13/17 00:00 118 10/13/17 00:00 101.0 118 23 124/67 (86) 98 10/12/17 22:00 122 10/12/17 20:55 99 40 10/12/17 20:00 100.6 114 23 121/69 (86) 98 10/12/17 20:00 40 10/12/17 20:00 114 -: 10/13/17 0610 10/13/17 0610 Microbiology 10/13/17 Aerobic Blood Culture, Received Pending 10/13/17 Anaerobic Blood Culture, Received Pending 10/13/17 Aerobic Blood Culture, Received Pending 10/13/17 Anaerobic Blood Culture, Received Pending Physical Exam General Appearance Remarks intubated, and sedated. Pulmonary Resp Exam: Breath Sounds Equal, Crackles, Rhonchi, Decreased Bases, Diminished Breath Sounds, Poor Inspiratory Effort Cardiology CV Exam: Regular Gastrointestinal/Abdomen GI Exam: Soft, Non-Tender, Bowel Sounds Present Integumentary Skin Exam: Clear, Warm Extremeties Extremities Exam: Moderate Edema, Dependent Edema Neurologic Neuro Exam: Sedated Assessment/Plan Problem List: (1) ZEUS (acute kidney injury) ICD Codes: N17.9 - Acute kidney failure, unspecified Plan: ZEUS most likely ATN from sepsis and low blood pressure. Other differential will be ATN, Acute interstitial nephritis, and Post infectious GN,unlikely. Patient with weight gain. Good UOP Will continue to monitor labs and urinary output HD as needed and watch for renal recovery. Last HD was done on Sat. urine out put is low. On Cefazolin, Ceftaroline and Rifampicin. ID is following. HD will be in AM. (2) Sepsis ICD Codes: A41.9 - Sepsis, unspecified organism Status: Acute Plan: Antibiotics per ID (3) Endocarditis ICD Codes: I38 - Endocarditis, valve unspecified Status: Acute Problem Qualifiers (1) Sepsis: Qualified Codes: A41.9 - Sepsis, unspecified organism (2) Endocarditis: Darek Tapia MD Oct 13, 2017 19:18
[2017-10-14] VITALS (27 sets, daily range): BP systolic 113–131; BP diastolic 60–81; PULSE 4–126; RESP 0–20; TEMP 99.1–101.2; O2SAT 98–100
[2017-10-14] MEDS: VASOPRESSIN INJ 40 UNITS in DEXTROSE 5% IN WATER 100ML INJ 98 ML IV SCH ×4 (00:20→17:44)
--- NOTE | 2017-10-14 00:55 | RADRPT ---
EXAM DATE/TIME: 10/14/2017 00:26 [facility] COMPARISON: CT THORAX W CONTRAST, October 04, 2017, 21:18. CHEST SINGLE AP, October 13, 2017, 15:22. INDICATIONS : Pleural effusion. RADIATION DOSE: 18.17 CTDIvol (mGy) MEDICAL HISTORY : MRSA; Drug use. SURGICAL HISTORY : None. ENCOUNTER: Initial ACUITY: 1 day PAIN SCALE: Non-responsive LOCATION: Bilateral chest TECHNIQUE: Volumetric scanning of the chest was performed. Using automated exposure control and adjustment of t he mA and/or kV according to patient size, radiation dose was kept as low as reasonably achievable to obtain optimal diagnostic quality images. DICOM format image data is available electronically for r eview and comparison. Follow-up recommendations for detected pulmonary nodules are based at a minimum on nodule size and pa tient risk factors according to Fleischner Society Guidelines. FINDINGS: LUNGS: Consolidation is again noted in both posterior lower lobes with air bronchograms. There are multiple scattered irregular pulmonary nodules. Several of the previously noted nodules in the right lung ther e no cavitary. These measure up to approximately 1.9 cm in diameter. PLEURAE: There's been interval placement of bilateral chest tubes since the last chest CT with small residual pleural effusions. MEDIASTINUM: The endotracheal tube and nasogastric tube remain in place. There is a right-sided central venous dennise e as well. The heart and great vessels demonstrate no acute abnormality. There is no mediastinal or hilar lymphadenopathy. The heart size appears mildly prominent. AXILLAE: Within normal limits. No lymphadenopathy. MUSCULOSKELETAL: Within normal limits for patient age. MISCELLANEOUS: The visualized upper abdominal organs demonstrate no acute abnormality. CONCLUSION: 1. Bilateral scattered pulmonary nodules are again noted. Several of the right nodules are now cavita ry and likely represent septic emboli given the history of IV drug abuse. 2. Interval placement of bilateral chest tubes with small pleural effusions noted. 3. Dense consolidation remains in the posterior lower lobes. Jorge Jang MD on October 14, 2017 at 0:48 Board Certified Radiologist. This report was verified electronically.
[2017-10-14] MEDS: CEFTAROLINE INJ 300 MG in SODIUM CHLORIDE 0.9% INJ 100 ML IV SCH ×3 (01:55→23:57)
[2017-10-14] MEDS: CHLORHEXIDINE GLUCONATE 2 % 1 PACK (2 CLOTHS) TOP SCH (04:00)
[2017-10-14] MEDS: HEPARIN SODIUM - SQ 10,000 UNITS/ML VIAL SQ SCH ×2 (04:35→14:00)
[2017-10-14] MEDS: RESP: ALBUTEROL 2.5 MG/IPRATROPIUM 0.5 MG NEB (SCH) NEB ×4 (04:40→19:13)
[2017-10-14 04:47] LABS: AUTOMATED NEUTROPHIL # 8.8 TH/MM3 (1.8-7.7); BASOPHIL # 0.1 TH/MM3 (0-0.2); BASOPHIL % 0.5 % (0.0-2.0); EOSINOPHIL # 0.2 TH/MM3 (0-0.4); EOSINOPHIL % 1.5 % (0.0-4.0); LYMPH % 7.5 % (9.0-44.0); LYMPHOCYTE # 0.8 TH/MM3 (1.0-4.8); MEAN CELL VOLUME 86.1 FL (80.0-100.0); MEAN CORPUSCULAR HEMOGLOBIN 29.9 PG (27.0-34.0); MEAN CORPUSCULAR HGB CONC 34.7 % (32.0-36.0); MEAN PLATELET VOLUME 8.1 FL (7.0-11.0); MONO % 8.4 % (0.0-8.0); MONOCYTE # 0.9 TH/MM3 (0-0.9); NEUT % 82.1 % (16.0-70.0); PLATELET COUNT 151 TH/MM3 (150-450); RED BLOOD COUNT 2.33 MIL/MM3 (4.50-5.90); RED CELL DISTRIBUTION WIDTH 20.1 % (11.6-17.2); WHITE BLOOD COUNT 10.7 TH/MM3 (4.0-11.0)
[2017-10-14 04:54] LABS: HEMOGLOBIN 6.9 GM/DL (13.0-17.0)
[2017-10-14 05:03] LABS: ALBUMIN 2.4 GM/DL (3.4-5.0); AST (GOT) 19 U/L (15-37); BICARBONATE 26.7 MEQ/L (21.0-32.0); BLOOD UREA NITROGEN 63 MG/DL (7-18); CALCIUM 8.2 MG/DL (8.5-10.1); CHLORIDE 95 MEQ/L (98-107); CREATININE 4.97 MG/DL (0.60-1.30); GLOMERULAR FILTRATION RATE 14 ML/MIN (>89); GLUCOSE,RANDOM 78 MG/DL (74-106); MAGNESIUM 2.4 MG/DL (1.5-2.5); SODIUM (NA) 134 MEQ/L (136-145)
[2017-10-14 05:05] LABS: ALT (GPT) LESS THAN 6 U/L (12-78)
[2017-10-14 05:07] LABS: ALKALINE PHOSPHATASE 119 U/L (45-117); TOTAL BILIRUBIN ADULT 1.2 MG/DL (0.2-1.0); TOTAL PROTEIN 7.6 GM/DL (6.4-8.2)
[2017-10-14] MEDS: PROPOFOL 1000 MG/100 ML INJ 100 ML IV PRN ×4 (06:22→23:58)
[2017-10-14] MEDS: fentaNYL DRIP 250 ML IV PRN ×2 (06:22→17:44)
--- NOTE | 2017-10-14 06:38 | RADRPT ---
EXAM DATE/TIME: 10/14/2017 05:21 [facility] COMPARISON: CHEST SINGLE AP, October 13, 2017, 15:22. INDICATIONS : Short of breath. MEDICAL HISTORY : Sepsis. pneumothorax SURGICAL HISTORY : bilateral chest tubes. ENCOUNTER: Subsequent ACUITY: 2 weeks PAIN SCORE: 0/10 LOCATION: Bilateral chest FINDINGS: A single AP semierect view of the chest was obtained and demonstrates interval removal of the previou sly noted left subclavian central venous line. The patient remains intubated with endotracheal tube t ip approximately 3 cm above the sydni. The nasogastric tube and right internal jugular central venou s line remain in place. The right subclavian central venous catheter remains in place as well. There are bilateral small bore chest tubes with no pneumothorax. The heart size remains mildly enlarged. Hernandez zy airspace disease remains in both lungs greatest at the lung bases. Phrenic angles appear mildly bl unted. CONCLUSION: 1. Interval removal of left subclavian central venous line. 2. Bilateral chest tubes remain in place with no pneumothorax. 3. No significant change in the bilateral airspace disease. Jorge Jang MD on October 14, 2017 at 6:35 Board Certified Radiologist. This report was verified electronically.
[2017-10-14] MEDS: CHLORHEXIDINE 0.12% (ORAL KIT) 15 ML CUP MT SCH ×2 (08:00→20:00)
[2017-10-14] MEDS: ALBUMIN 25% INJ 100 ML IV PRN (08:43)
[2017-10-14] MEDS: GENTAMICIN SULFATE 20 MG/2 ML VIAL OTHER PRN (08:43)
[2017-10-14] MEDS: HEPARIN SODIUM - IV 10,000 UNITS/10 ML VIAL PRN (08:43)
[2017-10-14] MEDS: DOCUSATE SODIUM 50 MG/SENNA 8.6 MG TAB PO SCH ×2 (09:00→21:18)
[2017-10-14] MEDS: BENEPROTEIN POWDER 1 PACK OG-TUBE SCH ×3 (09:00→17:43)
[2017-10-14] MEDS: FLUTICASONE PROPIONATE 44 MCG/ACT 10.6 GM INHALER INH SCH ×2 (09:57→21:00)
--- NOTE | 2017-10-14 10:38 | HHI.IDPN ---
Subjective Subjective Remarks is a 27 y/o CM with remote history of IV drug abuse, states he last used heroin 2 months ago, presents for evaluation of body aches, 7 days of diarrhea with development of subjective fever yesterday. Patient denies any nausea or vomiting. He denies any chest pain. This has developed within the last 24 hours. Patient does have a cough with clear sputum. Denies any prior history of endocarditis. Denies any abdominal pain. Does report some left back pain, worse while lying flat. He is well reports generalized weakness. Patient met criteria for sepsis on admission. Flu antigen negative. CXR with bilateral infiltrates. performed a bedside 2D ECHO and verbally reported a large ~4.5 cm vegetation on TV. CXR suspicious for septic emboli. Blood cultures drawn but it appears patient has received augmentin at some point and cultures may possibly be negative. At the time of my evaluation patient is in the ICU, appears in respiratory distress there is a plan for intubation and CARMEN today. UO ok. No diarrhea, no rash. Not on pressors. ID is consulted for evaluation and Mment of Severe Sepsis and Endocarditis. Overnight events reviewed. Persistent fevers Tmax 102 F Pt has 3 vegetations on tricuspid and pulmonic valve. No rash No diarrhea UO low. Underwent HD prn now plan for Tues, Th, Sat. Remains on vent. FiO2 40%, PEEP 5. Secretions moderate pale yellow. Has Bilateral CTs in place. CL changed. Has a Vascath in place. Undergoing HD today. Antibiotics Ancef IV Teflaro IV rifampin Lines Line sites with no e.o infection Past Medical History Past Medical History Asthma HCV Past Surgical History No surgical history per records. Allergies: Coded Allergies: erythromycin base (Verified Allergy, Severe, Nausea/Vomiting, 10/03/17) raspberry (Unverified Allergy, Mild, 10/03/17) Objective . Vital Signs Date Time Temp Pulse Resp B/P (MAP) Pulse Ox O2 Delivery O2 Flow Rate FiO2 10/14/17 09:53 100 40 10/14/17 07:16 100 40 10/14/17 06:00 106 10/14/17 04:40 100 40 10/14/17 04:00 99.6 107 19 113/67 (82) 100 10/14/17 04:00 107 10/14/17 04:00 40 10/14/17 02:00 108 10/14/17 01:19 99 40 10/14/17 00:20 100 100 10/14/17 00:00 116 10/14/17 00:00 101.2 116 16 118/70 (86) 100 10/14/17 00:00 40 10/13/17 23:53 22 10/13/17 22:00 115 10/13/17 21:00 100 40 10/13/17 20:00 109 10/13/17 20:00 40 10/13/17 20:00 99.6 109 20 112/67 (82) 100 10/13/17 18:00 109 10/13/17 16:00 100.7 111 24 106/56 (73) 99 10/13/17 16:00 111 10/13/17 16:00 40 10/13/17 15:47 99 40 10/13/17 14:00 126 10/13/17 13:21 98 40 10/13/17 12:00 127 10/13/17 12:00 102.3 127 24 123/67 (85) 98 10/13/17 12:00 40 . Laboratory Tests Test 10/13/17 06:10 10/14/17 03:15 White Blood Count 11.4 TH/MM3 10.7 TH/MM3 Red Blood Count 2.61 MIL/MM3 2.33 MIL/MM3 Hemoglobin 7.6 GM/DL 6.9 GM/DL Hematocrit 22.3 % 20.0 % Mean Corpuscular Volume 85.4 FL 86.1 FL Mean Corpuscular Hemoglobin 29.0 PG 29.9 PG Mean Corpuscular Hemoglobin Concent 33.9 % 34.7 % Red Cell Distribution Width 20.6 % 20.1 % Platelet Count 170 TH/MM3 151 TH/MM3 Mean Platelet Volume 8.1 FL 8.1 FL Neutrophils (%) (Auto) 80.6 % 82.1 % Lymphocytes (%) (Auto) 8.3 % 7.5 % Monocytes (%) (Auto) 8.4 % 8.4 % Eosinophils (%) (Auto) 2.1 % 1.5 % Basophils (%) (Auto) 0.6 % 0.5 % Neutrophils # (Auto) 9.2 TH/MM3 8.8 TH/MM3 Lymphocytes # (Auto) 0.9 TH/MM3 0.8 TH/MM3 Monocytes # (Auto) 1.0 TH/MM3 0.9 TH/MM3 Eosinophils # (Auto) 0.2 TH/MM3 0.2 TH/MM3 Basophils # (Auto) 0.1 TH/MM3 0.1 TH/MM3 CBC Comment DIFF FINAL DIFF FINAL Differential Comment Laboratory Tests Test 10/13/17 06:10 10/14/17 03:15 Blood Urea Nitrogen 53 MG/DL 63 MG/DL Creatinine 4.40 MG/DL 4.97 MG/DL Random Glucose 83 MG/DL 78 MG/DL Calcium Level 8.0 MG/DL 8.2 MG/DL Phosphorus Level 6.4 MG/DL Magnesium Level 2.4 MG/DL 2.4 MG/DL Sodium Level 136 MEQ/L 134 MEQ/L Potassium Level 4.2 MEQ/L 4.4 MEQ/L Chloride Level 99 MEQ/L 95 MEQ/L Carbon Dioxide Level 29.4 MEQ/L 26.7 MEQ/L Anion Gap 8 MEQ/L 12 MEQ/L Estimat Glomerular Filtration Rate 16 ML/MIN 14 ML/MIN Total Protein 7.6 GM/DL Albumin 2.4 GM/DL Alkaline Phosphatase 119 U/L Aspartate Amino Transf (AST/SGOT) 19 U/L Alanine Aminotransferase (ALT/SGPT) LESS THAN 6 U/L Total Bilirubin 1.2 MG/DL Microbiology Date/Time Source Procedure Growth Status 10/13/17 15:12 Blood Peripheral Aerobic Blood Culture Pending Received 10/13/17 15:12 Blood Peripheral Anaerobic Blood Culture Pending Received 10/13/17 14:45 Blood Line Aerobic Blood Culture Pending Received 10/13/17 14:45 Blood Line Anaerobic Blood Culture Pending Received Imaging Last Impressions Chest X-Ray 10/04/17 0000 Signed Impressions: Service Date/Time: Wednesday, October 04, 2017 16:11 - CONCLUSION: 1. ET tube in good position. 2. Significant increase in bilateral airspace opacities, now with consolidation in the lower lungs bilaterally. Mat Alejandra MD Chest CT 10/04/17 0000 Signed Impressions: Service Date/Time: Wednesday, October 04, 2017 21:18 - CONCLUSION: Abnormal diffuse airspace opacities throughout both lungs with bilateral lower lobe consolidation and patchy focal areas of consolidation the remainder of the lungs. There is also bilateral pleural effusions with probable loculation. Mat Alejandra MD Abdomen/Pelvis CT 10/04/17 0000 Signed Impressions: Service Date/Time: Wednesday, October 04, 2017 21:21 - CONCLUSION: 1. Severe hepatosplenomegaly without focal lesion. 2. Free fluid in the pelvis. 3. Abnormal lower lungs and pleural effusions. 4. Prominent varices about the splenic vein. Mat Alejandra MD Physical Exam GENERAL: This is a well-nourished, well-developed patient, in no apparent distress. SKIN: No rashes, ecchymoses or lesions. Cool and dry. Multiple tattoos. HEAD: Atraumatic. Normocephalic. No temporal or scalp tenderness. EYES: Pupils equal round and reactive. Extraocular motions intact. ENT: Intubated. NECK: Trachea midline. Supple, nontender, no meningeal signs. CARDIOVASCULAR: ? systolic murmur. RESPIRATORY: Decreased air entry bilaterally bases. GASTROINTESTINAL: Abdomen soft, distended, ? LUQ tenderness MUSCULOSKELETAL: Extremities without clubbing, cyanosis, or edema. NEUROLOGICAL: Sedated, moves extremities. Psych cooperative IV line sites with no e.o infection. Assessment & Plan Remarks Severe Sepsis present on admission MSSA endocarditis. MSSA bacteremia persistent Bilateral pleural effusions: left side appears loculated possible empyema. TV and Pulmonic valve endocarditis Pneumonia: septic emboli, aspiration pneumonia. IVDA: heroin, cocaine and methamphetamine. Acute renal failure: Sepsis, meds,contrast. - on HD Recs: Continue Teflaro IV (salvage Rx for endocarditis given persistent bacteremia and renal failure) Continue Ancef IV (will be the primary drug once bacteremia controlled) Continue Rifampin oral. fredis Fletcher: due to persistent fevers will get CT Abd/Pelvis concern for septic emboli/abscesses to vital organs (spleen, liver, kidney, ascites) Negative Doppler UE bilaterally to r.o septic thrombophlebitis. fredis Najera and : Cath holiday after HD today till am. Follow cultures Follow clinically d/w Lakia Colby MD Oct 14, 2017 10:38
[2017-10-14] MEDS: PANTOPRAZOLE SODIUM 40 MG VIAL IV PUSH SCH ×2 (11:56→21:18)
[2017-10-14] MEDS: SODIUM CHLORIDE 0.9% FLUSH 10 ML FLUSH IV FLUSH SCH ×2 (11:56→21:19)
[2017-10-14] MEDS: ARTIFICIAL TEARS OPTH OINT 3.5 APPLIC/3.5 GM TUBO EACH EYE SCH ×2 (11:56→21:19)
[2017-10-14] MEDS: METHOCARBAMOL 500 MG TAB PO SCH ×4 (11:57→21:18)
[2017-10-14] MEDS: RIFAMPIN 150 MG CAP PO SCH ×2 (11:57→21:18)
[2017-10-14] MEDS ORDERED: DIATRIZOATE MEGLUM/DIATRIZOATE SOD 9 ML CUP PO ONE (12:00)
[2017-10-14] MEDS: ALBUMIN 25% INJ 100 ML IV SCH ×2 (12:28→21:18)
[2017-10-14] MEDS ORDERED: ALTEPLASE RECOMBINANT 2 MG VIAL ONE (12:30)
[2017-10-14] MEDS ORDERED: SODIUM CHLORIDE 0.9% SOLN 100 ML (PAB) BAG IV ONE (12:30)
--- NOTE | 2017-10-14 15:16 | HHI.GIFU ---
Subjective Remarks Pt remains sedated and mechanically ventilated TF on hold for CT abdomen to be done today RN reports BM this morning, brown No reports of coffee ground emesis from OG (Leonora Graf) Objective Vitals I&O Vital Signs Date Time Temp Pulse Resp B/P (MAP) Pulse Ox O2 Delivery O2 Flow Rate FiO2 10/14/17 14:30 99.3 111 18 122/69 100 10/14/17 14:00 114 10/14/17 13:39 100 40 10/14/17 12:00 99.1 109 16 118/64 (82) 100 10/14/17 12:00 40 10/14/17 12:00 109 10/14/17 10:00 106 10/14/17 09:53 100 40 10/14/17 08:00 106 10/14/17 08:00 40 10/14/17 08:00 99.5 109 20 118/72 (87) 100 10/14/17 07:16 100 40 10/14/17 06:00 106 10/14/17 04:40 100 40 10/14/17 04:00 99.6 107 19 113/67 (82) 100 10/14/17 04:00 107 10/14/17 04:00 40 10/14/17 02:00 108 10/14/17 01:19 99 40 10/14/17 00:20 100 100 10/14/17 00:00 116 10/14/17 00:00 101.2 116 16 118/70 (86) 100 10/14/17 00:00 40 10/13/17 23:53 22 10/13/17 22:00 115 10/13/17 21:00 100 40 18 20:00 109 18 20:00 40 18 20:00 99.6 109 20 112/67 (82) 100 18 18:00 109 10/13/17 16:00 100.7 111 24 106/56 (73) 99 18 16:00 111 18 16:00 40 10/13/17 15:47 99 40 I/O 10/13/18 2//18 2//18 218 2//18 10/14/17 07:00 15:00 23:00 07:00 15:00 23:00 Intake Total 1207 ml 350 ml 0 ml 975 ml 10 ml Output Total 212 ml 265 ml 260 ml 3500 ml Balance 995 ml 350 ml -265 ml 715 ml -3490 ml Intake Oral 0 ml IV Total 600 ml 350 ml 975 ml Tube Feeding 527 ml Blood Product IV Normal Saline Flush 10 ml Tube Irrigant 80 ml Output Urine Total 200 ml 250 ml 250 ml Chest Tube Drainage Total 12 ml 15 ml 10 ml Hemodialysis 3500 ml # Bowel Movements 1 0 Laboratory Laboratory Tests Test 10/14/17 03:15 White Blood Count 10.7 Red Blood Count 2.33 Hemoglobin 6.9 Hematocrit 20.0 Mean Corpuscular Volume 86.1 Mean Corpuscular Hemoglobin 29.9 Mean Corpuscular Hemoglobin Concent 34.7 Red Cell Distribution Width 20.1 Platelet Count 151 Mean Platelet Volume 8.1 Neutrophils (%) (Auto) 82.1 Lymphocytes (%) (Auto) 7.5 Monocytes (%) (Auto) 8.4 Eosinophils (%) (Auto) 1.5 Basophils (%) (Auto) 0.5 Neutrophils # (Auto) 8.8 Lymphocytes # (Auto) 0.8 Monocytes # (Auto) 0.9 Eosinophils # (Auto) 0.2 Basophils # (Auto) 0.1 CBC Comment DIFF FINAL Differential Comment Blood Urea Nitrogen 63 Creatinine 4.97 Random Glucose 78 Total Protein 7.6 Albumin 2.4 Calcium Level 8.2 Magnesium Level 2.4 Alkaline Phosphatase 119 Aspartate Amino Transf (AST/SGOT) 19 Alanine Aminotransferase (ALT/SGPT) LESS THAN 6 Total Bilirubin 1.2 Sodium Level 134 Potassium Level 4.4 Chloride Level 95 Carbon Dioxide Level 26.7 Anion Gap 12 Estimat Glomerular Filtration Rate 14 Date/Time Source Procedure Growth Status 10/13/17 15:12 Blood Peripheral Aerobic Blood Culture - Preliminary NO GROWTH IN 1 DAY Resulted 10/13/17 15:12 Blood Peripheral Anaerobic Blood Culture - Preliminary NO GROWTH IN 1 DAY Resulted 10/09/17 12:00 Fluid Pleural Fluid Fungal Smear - Final NO FUNGAL ELEMENTS SEEN. Resulted 10/09/17 12:00 Fluid Pleural Fluid Fungal Culture Pending Resulted 10/04/17 03:49 Sputum Expectorated Sputum Gram Stain - Final Complete 10/04/17 03:49 Sputum Expectorated Sputum Sputum Culture - Final HEAVY GROWTH NORMAL RESPIRATORY RHIANNON Complete 10/03/17 21:30 Urine Random Urine Legionella Antigen - Final PRESUMPTIVE NEGATIVE FOR LEGIONELLA P... Complete 10/03/17 21:30 Urine Random Urine Streptococcus pneumoniae Antigen (M - Final PRESUMPTIVE NEGATIVE FOR STREPTOCOCCU... Complete Imaging Last Impressions Chest X-Ray 10/14/17 0600 Signed Impressions: Service Date/Time: Saturday, October 14, 2017 05:21 - CONCLUSION: 1. Interval removal of left subclavian central venous line. 2. Bilateral chest tubes remain in place with no pneumothorax. 3. No significant change in the bilateral airspace disease. Jorge Jang MD Chest CT 10/14/17 0000 Signed Impressions: Service Date/Time: Saturday, October 14, 2017 00:26 - CONCLUSION: 1. Bilateral scattered pulmonary nodules are again noted. Several of the right nodules are now cavitary and likely represent septic emboli given the history of IV drug abuse. 2. Interval placement of bilateral chest tubes with small pleural effusions noted. 3. Dense consolidation remains in the posterior lower lobes. Jorge Jang MD Upper Extremity Ultrasound 10/13/17 0000 Signed Impressions: Service Date/Time: Friday, October 13, 2017 11:25 - CONCLUSION: Normal examination. Christian Kaur MD Abdomen X-Ray 10/10/17 0000 Signed Impressions: Service Date/Time: Tuesday, October 10, 2017 16:46 - CONCLUSION: Negative for free air or obstruction. Rahul Yarbrough MD FACR Chest Tube Insertion 10/06/17 0000 Signed Impressions: Service Date/Time: Friday, October 06, 2017 15:37 - CONCLUSION: Uncomplicated chest tube placement as above. Emerson Hui MD Abdomen/Pelvis CT 10/04/17 0000 Signed Impressions: Service Date/Time: Wednesday, October 04, 2017 21:21 - CONCLUSION: 1. Severe hepatosplenomegaly without focal lesion. 2. Free fluid in the pelvis. 3. Abnormal lower lungs and pleural effusions. 4. Prominent varices about the splenic vein. Mat Alejandra MD Physical Exam HEENT: Normocephalic CHEST: Synchronized with ventilator, mechanically ventilated via ETT CARDIAC: Sinus tachycardia ABDOMEN: Distended, firm, bowel sounds faint EXTREMITIES: Extremity edema SHRINK PIT SUPERVISOR: Sedated (Bonnette,Leonora QUITLINE COUNSELOR) Assessment and Plan Plan ASSESSMENT - anemia - normocytic hgb 8.8 on admission and trending down. 2/2 sepsis, hemodilution, spherocytosis? no obvious bleeding hemoccult pending. + family hx spherocytosis. CT showed hepatosplenomegaly severe, splenic vein varices s/p 4 X PRBC, 5th unit pending. - elevated LFTs - unclear etiology could be shock liver. he is + hep c ab. - septic emboli, respiratory failiure, IVDU, fluid overload, endocarditis and valve vegetations, ZEUS - CT surgery, ID, nephrology following (10/13) --> Abdomen distended and firm. Spoke with RN who states pt was tolerating TF without high residuals. Currently turned off and OG clamped because stopcock on tubing came dislodged during US procedure earlier. Last BM was yesterday, she reports no obvious source of GIB. Drop in H/H currently 7.6/22.3, last transfused Oct 09. Likely multifactorial, given decreased renal function. LFTs improving: AST-37 ALT-9 Alk phos-199 T bili- 1.1. Liver ERICKSON --> Hep C antibody (+), RNA 10,700, genotype pending. MARTÍN positive, titer pending. ASMA negative. Ceruloplasmin-38. Iron-19 Ferritin-1217. Liver imaging (CT abdomen and pelvis 10/04) --> Hepatomegaly with superior inferior dimension 24 cm. No focal lesions seen. No biliary duct dilation. No calcified gallstones. Pt remains mechanically ventilated via ETT, tracheostomy on hold because pt may be needing a valve replacement. Spoke with Dr. Barraza. ZEUS- dialysis (10/14) --> Pt remains sedated and mechanically ventilated. Drop in H/H noted, currently 6.9/, pt receiving one unit PRBCs. Per RN no reports of GI bleeding, no coffee ground emesis, (+) BM this morning, she states brown. Pts TF on hold at this time for CT abdomen and pelvis being done at 1600. PLAN - Rest of liver ERICKSON pending - Monitor LFTs - Monitor H/H - Notify GI of any active bleeding - PEG at time of tracheostomy - TF - Further recommendations to follow based on clinical course and results of above Pt has been seen and examined by myself and Dr. Boyd and this note is written on his behalf (Leonora Graf) Physician Comments Seen and examined with QUITLINE COUNSELOR, CT pending today. ? CARMEN, ? tricuspid valve replacement. Drop in H/H but no overt bleeding. ? egd depending upon ct results. Transfuse as needed. (Ravi Boyd MD) Leonora Graf Oct 14, 2017 15:16 Ravi Boyd MD Oct 14, 2017 15:40
--- NOTE | 2017-10-14 16:36 | HHI.NPPN ---
Subjective History of Present Illness Patient is 27-year-old male who reported to ER with body aches, 7 days of diarrhea with development fever. Past medical history of IV drug use. Patient is sedated and ventilated FiO2 at 40 %. Nephrology is consulted for ZEUS and fluid over load status. Patients creatinine is 3.02 and GFR 25ml/min. Patient is UOP at 800cc for last 24 hours. Weight has increased by over 10 kg since admission. IVF's have been stopped and lasix has been given. Patient has endocarditis with large tricuspid valve vegetation, and pulmonic vegetation. Noted to have bacteremia with hypotension with SBP in the 90's. Additional Remarks Patient intubated and sedated. Dialysis this morning (Venus Barrett) Objective Data Data 10/14/17 10/15/17 19:00 07:00 Intake Total 10 ml Output Total 3500 ml Balance -3490 ml Blood Product IV Normal Saline Flush 10 ml Hemodialysis 3500 ml Vital Signs Date Time Temp Pulse Resp B/P (MAP) Pulse Ox O2 Delivery O2 Flow Rate FiO2 10/14/17 14:30 99.3 111 18 122/69 100 10/14/17 14:00 114 10/14/17 13:39 100 40 10/14/17 12:00 99.1 109 16 118/64 (82) 100 10/14/17 12:00 40 10/14/17 12:00 109 10/14/17 10:00 106 10/14/17 09:53 100 40 10/14/17 08:00 106 10/14/17 08:00 40 10/14/17 08:00 99.5 109 20 118/72 (87) 100 10/14/17 07:16 100 40 10/14/17 06:00 106 10/14/17 04:40 100 40 10/14/17 04:00 99.6 107 19 113/67 (82) 100 10/14/17 04:00 107 10/14/17 04:00 40 10/14/17 02:00 108 10/14/17 01:19 99 40 10/14/17 00:20 100 100 10/14/17 00:00 116 10/14/17 00:00 101.2 116 16 118/70 (86) 100 10/14/17 00:00 40 10/13/17 23:53 22 10/13/17 22:00 115 10/13/17 21:00 100 40 10/13/17 20:00 109 10/13/17 20:00 40 10/13/17 20:00 99.6 109 20 112/67 (82) 100 10/13/17 18:00 109 (Venus Barrett) -: 10/14/17 0315 10/14/17 0315 Physical Exam General Appearance: No Acute Distress (Venus Barrett) Pulmonary Resp Exam: Breath Sounds Equal, Crackles, Rhonchi, Decreased Bases, Diminished Breath Sounds, Poor Inspiratory Effort (Venus Barrett) Cardiology CV Exam: Regular (Venus Barrett) Gastrointestinal/Abdomen GI Exam: Soft, Non-Tender, Bowel Sounds Present (Venus Barrett) Integumentary Skin Exam: Clear, Warm (Venus Barrett) Extremeties Extremities Exam: Moderate Edema, Dependent Edema (Venus Barrett) Neurologic Neuro Exam: Sedated (Venus Barrett) Assessment/Plan Problem List: (1) ZEUS (acute kidney injury) ICD Codes: N17.9 - Acute kidney failure, unspecified Plan: ZEUS most likely ATN from sepsis and low blood pressure. Other differential will be ATN, Acute interstitial nephritis, and Post infectious GN,unlikely. Will continue to monitor labs and urinary output On Cefazolin, Ceftaroline and Rifampicin ID following HD this AM 3 liters removed. Creatinine 4.97 with UOP of 500 ml over past 24 hours. Anemia hgb of 6.9 transfusing PRBC HD as needed and watch for renal recovery. (2) Sepsis ICD Codes: A41.9 - Sepsis, unspecified organism Status: Acute Plan: Antibiotics per ID (3) Endocarditis ICD Codes: I38 - Endocarditis, valve unspecified Status: Acute (Venus Barrett) Problem List: (1) ZEUS (acute kidney injury) ICD Codes: N17.9 - Acute kidney failure, unspecified Plan: ZEUS most likely ATN from sepsis and low blood pressure. Other differential will be ATN, Acute interstitial nephritis, and Post infectious GN,unlikely. Will continue to monitor labs and urinary output On Cefazolin, Ceftaroline and Rifampicin ID following HD this AM 3 liters removed. Creatinine 4.97 with UOP of 500 ml over past 24 hours. Anemia hgb of 6.9 transfusing PRBC HD as needed and watch for renal recovery. Patient seen and examined, agree with above. HD done today, VasCath was removed due to fever. Continue antibiotics. New Vascath on R=. (2) Sepsis ICD Codes: A41.9 - Sepsis, unspecified organism Status: Acute Plan: Antibiotics per ID (3) Endocarditis ICD Codes: I38 - Endocarditis, valve unspecified Status: Acute (Darek Tapia MD) Problem Qualifiers (1) Sepsis: Qualified Codes: A41.9 - Sepsis, unspecified organism (2) Endocarditis: Venus Barrett Oct 14, 2017 16:36 Darek Tapia MD Oct 14, 2017 17:27
--- NOTE | 2017-10-14 17:51 | HHI.CCPN ---
Subjective Remarks/Hospital Course 27-year-old male with remote history of IV drug abuse, states he last used heroin 2 months ago, presents for evaluation of 8 days of body aches, 7 days of diarrhea with development of subjective fever yesterday. Patient denies any nausea or vomiting. He denies any chest pain. States that he is short of breath and feels anxious. This has developed within the last 24 hours. Patient does have a cough with clear sputum. Denies any prior history of endocarditis. Denies any abdominal pain. Does report some left back pain, worse while lying flat. He is well reports generalized weakness. 10/04/17: He is critically ill, remains febrile up to 103, tachycardic diaphoretic. large tricuspid valve vegetation on bedside echo, formal echo pending. Infectious disease consulted, CT surgery consult ordered. D/W Dr. Macias and Dr. Charles. CARMEN/liquid yeast supervisor consult ordered. Hb 6.6 getting 2U PRBC 10/05: Remains critically ill intubated sedated. TE on yesterday TEF 40-45%. Large mobile vegetation noted on the tricuspid valve, may be 2 separate vegetations, measures overall 4cm x 1.7cm. Probable mobile density noted on the pulmonic valve. CT of the chest shows extensive septic emboli and consolidation , with loculated appearing effusion on the left base. Dr. Charles CT surgery recommends 4-6 weeks of IV antibiotics followed by repeat echo, considering surgery at that time if no improvement 10/06: Worsening CXR, with bibasilar worsening infiltrates and effusion. IR to place CT-guided left chest tube today for loculated effusion. Fluid overloaded approximately 8 kg. IV Lasix 40 mg x1. MSSA bacteremia persists 10/07: Remains intubated sedated remains critical severe volume overload with worsening renal function creatinine 3, weight up by at least [address] him on Bumex infusion and consult nephrology. Patient remains slightly oliguric 800 mL urine output in 24 hours. Chest x-ray showed bilateral infiltrates and worsening right effusion 10/08: Remains intubated heavily sedated oliguric. Continues to have positive fluid balance creatinine increased to 4.3. Hemoglobin 6.9. Currently on Bumex infusion with not adequate response. Persistently bacteremic. Bilateral infiltrates on chest x-ray with moderate right effusion 10/09: Intubated sedated remains severely fluid overloaded started on hemodialysis yesterday with 4 L removed still positive fluid balance. Hemoglobin 6.81 unit PRBC transfusion ordered along with calcium replacement. GI consulted for further workup. Large pleural effusion on right side plan for pigtail chest tube placement 10/10: Intubated sedated. Had HD with 25L removed yesterday. right chest tube placed yesterday 1.2 L of old blood tinged effusion drained-Gram stain negative. Chest x-ray shows improvement in effusion. Remains severely fluid overloaded still remains 16-17 kg up. Discussed with nephrology plan for HD with maximum fluid removal as tolerated 10/11: The patient continues on sedation intubated, opens eyes spontaneously, not follow commands. The patient underwent hemodialysis yesterday approximately 3 L off. Bilateral chest tubes no leak noted. Minimal output left chest tube. 10/12: Daily sedation vacation initiated, opens eyes spontaneously, and following commands as squeezing hands bilaterally. Movement of lower extremities. She noted to have very thick secretions. Hemodialysis performed yesterday, approximately 3 L off. Patient noted to have thick copious secretions from airway, with worsening airspace disease on the right. Gen. surgery consulted for tracheostomy. 10/13: Patient remains critically ill opens eyes and follows commands on sedation hold. Did not tolerate CPAP trial today. Cancelled gen surgery consult for trach due to possible need for valve surgery. Continues to spike fever. Plan for changing line today 10/14: Plan for removal of vas catheter today, and to be replaced on . CT of the abdomen and pelvis pending. The patient was noted to have a drop in hemoglobin to 6.9 patient being transfused 1 unit of packed red blood cells. Left chest tube TPA instilled per IR serosanguineous drainage from left chest tube. Right chest tube placed to waterseal. Objective Vital Signs Date Time Temp Pulse Resp B/P (MAP) Pulse Ox O2 Delivery O2 Flow Rate FiO2 10/14/17 17:18 100 40 10/14/17 14:30 99.3 111 18 122/69 Intake and Output 10/14/17 10/14/17 10/15/17 08:00 16:00 00:00 Intake Total 575 ml 10 ml Output Total 260 ml 3500 ml Balance 315 ml -3490 ml Result Diagram: 2/20/18 0315 2/20/18 0315 Imaging Last Impressions Chest X-Ray 10/14/17 0600 Signed Impressions: Service Date/Time: Saturday, October 14, 2017 05:21 - CONCLUSION: 1. Interval removal of left subclavian central venous line. 2. Bilateral chest tubes remain in place with no pneumothorax. 3. No significant change in the bilateral airspace disease. Jorge Jang MD Chest CT 10/14/17 0000 Signed Impressions: Service Date/Time: Saturday, October 14, 2017 00:26 - CONCLUSION: 1. Bilateral scattered pulmonary nodules are again noted. Several of the right nodules are now cavitary and likely represent septic emboli given the history of IV drug abuse. 2. Interval placement of bilateral chest tubes with small pleural effusions noted. 3. Dense consolidation remains in the posterior lower lobes. Jorge Jang MD Upper Extremity Ultrasound 10/13/17 0000 Signed Impressions: Service Date/Time: Friday, October 13, 2017 11:25 - CONCLUSION: Normal examination. Christian Kaur MD Abdomen X-Ray 10/10/17 0000 Signed Impressions: Service Date/Time: Tuesday, October 10, 2017 16:46 - CONCLUSION: Negative for free air or obstruction. Rahul Yarbrough MD FACR Chest Tube Insertion 10/06/17 0000 Signed Impressions: Service Date/Time: Friday, October 06, 2017 15:37 - CONCLUSION: Uncomplicated chest tube placement as above. Emerson Hui MD Abdomen/Pelvis CT 10/04/17 0000 Signed Impressions: Service Date/Time: Wednesday, October 04, 2017 21:21 - CONCLUSION: 1. Severe hepatosplenomegaly without focal lesion. 2. Free fluid in the pelvis. 3. Abnormal lower lungs and pleural effusions. 4. Prominent varices about the splenic vein. Mat Alejandra MD Last Impressions Chest X-Ray 10/11/17 0600 Signed Impressions: Service Date/Time: Wednesday, October 11, 2017 03:30 - CONCLUSION: Mild improvement in pulmonary edema with residual edema remaining. Left basilar opacity is present may be due to a combination of consolidation and or pleural effusion. All Kim MD Abdomen X-Ray 10/10/17 0000 Signed Impressions: Service Date/Time: Tuesday, October 10, 2017 16:46 - CONCLUSION: Negative for free air or obstruction. Rahul Yarbrough MD FACR Chest Tube Insertion 10/06/17 0000 Signed Impressions: Service Date/Time: Friday, October 06, 2017 15:37 - CONCLUSION: Uncomplicated chest tube placement as above. Emerson Hui MD Chest CT 10/04/17 0000 Signed Impressions: Service Date/Time: Wednesday, October 04, 2017 21:18 - CONCLUSION: Abnormal diffuse airspace opacities throughout both lungs with bilateral lower lobe consolidation and patchy focal areas of consolidation the remainder of the lungs. There is also bilateral pleural effusions with probable loculation. Mat Alejandra MD Abdomen/Pelvis CT 10/04/17 0000 Signed Impressions: Service Date/Time: Wednesday, October 04, 2017 21:21 - CONCLUSION: 1. Severe hepatosplenomegaly without focal lesion. 2. Free fluid in the pelvis. 3. Abnormal lower lungs and pleural effusions. 4. Prominent varices about the splenic vein. Mat Alejandra MD Objective Remarks GENERAL: Well-nourished, well-developed patient. Critically ill, intubated and sedated SKIN: Warm and dry. Extensive tattoos limits skin exam. Anasarca HEAD: Normocephalic. EYES: No scleral icterus. No injection or drainage. Slight periorbital edema noted. ENT: Orotracheally intubated NECK: Supple, trachea midline. No JVD or lymphadenopathy. RIJ Vascath in place. Left subclavian central line in place CARDIOVASCULAR: S1-S2 normal with systolic murmur at the left sternal border. Large TV vegetation on bedside echo RESPIRATORY: Air entry is equal bilaterally, coarse rhonchi and crackles. Bilateral pig tail chest tubes in place. Place right to water seal for 24 hours GASTROINTESTINAL: Abdomen soft, non-tender, nondistended. MUSCULOSKELETAL: No cyanosis. Significant anasarca NEURO EXAM: RASS-2, Pupils are round, reactive to light. Spontaneous eye opening .Moves extremities spontaneously and follows commands when sedation is lightened B/L upper extremities. A/P Assessment and Plan Neuro IVDU: - Propofol Versed and fentanyl for vent synchrony and sedation - Watch closely for withdrawal - Daily sedation medication as tolerated Resp: Acute hypoxemic respiratory failure Extensive septic emboli, consolidation of the lung Loculated left effusion, large right effusion - Continue ventilator support, no vent weaning until respiratory status, fluid overload improved - IR placed left chest tube 10/06 with more than 1 L exudative fluid out. - Placed right-sided pigtail chest tube at the bedside 10/09, brown tinged fluid approximately 1.1 L initial output, now output is minimum - Water seal right chest tube with CXR in am, remove if nor PTX on 10/14/17 - Discussed with cardiothoracic surgery Dr. Charles, patient may need decortication, if not adequately drained - Broad-spectrum antibiotics per ID, see below - DuoNeb q6hr and PRN - Avoid tracheostomy as Dr. Charles may do valve surgery to remove vegetation if infection not clearing with ABX CVS: Large tricuspid valve vegetation, and pulmonic vegetation Severe sepsis Fluid overload - Bedside echo shows mild tricuspid vegetation - Cardiology and CT surgery following - CARMEN 10/04: EF 40-45%. Large mobile vegetation on tricuspid valve, may be 2 separate vegetations, measures overall 4cm x 1.7cm. - Probable mobile density noted on the pulmonic valve. - See ID section for ABX - Dr. Charles CT surgery recommends 4-6 weeks of antibiotics and repeat echo - He may do valve surgery to remove vegetation if infection not clearing with ABX - Fluid up by >15 kg, HD started 10/08. Dr. Tapia GI: Hepatosplenomegaly Diarrhea - IV Protonix due to persistent anemia. GI following - Tube feeds with Jevity - Check C Diff, if diarrhea persist - Hepatitis C reactive - GI consulted - patient has hepatosplenomegaly, appreciate Dr. Xiong's input : Acute kidney failure with fluid overload Dehydration on admission - Currently fluid overloaded with worsening bilateral effusion. - DCd Bumex infusion started hemodialysis 10/08, see above - Strict I's and O's, Monitor trend of creatinine - Electrolytes replacement per ICU protocol - 10/14-removal vas catheter. To be replaced on 10/16- discussed with nephrology and infectious disease ID: Tricuspid and pulmonic valve endocarditis Septic emboli to the lung Severe sepsis MSSA bacteremia - Discussed with Dr. Charles CT surgery 10/05/17 - He recommends 4-6 weeks of IV antibiotics with repeat echo, consideration for surgery if Vegetations persists - Ceftaroline, Cefazolin, Rifampin per ID Dr. Macias - Persistent MSSA bacteremia, cultures reviewed - F/u HIV, Hepatitis panel. Hepatitis C reactive - 10/14-CT of the abdomen and pelvis f/u results Endo: -Electrolyte replacement per protocol Heme: Anemia requiring transfusion Thrombocytopenia - 1U PRBC today. LDH mildly elevated and haptoglobin normal, Transfusion 1u PRBC on 10/14 - Monitor CBC, Coags - Thrombocytopenia most likely from sepsis and DIC DVT GI prophylaxis - TEDs SCDs - Started Heparin 5000 U sq q8 10/07, holding 10/08 due to blood loss - Protonix 40 q12 Critical Care: my billing statement This patient remains critically ill with one or more organ systems which are or may become a threat to life. I have spent in excess of 35 minutes discontinuously in the care and management of this patient. This time is exclusive of procedures, and includes, but is not limited to, evaluation of the patient, review of the medical record, discussions with family, consultants, nursing staff, or respiratory therapy, and documentation in the medical record. Patient remains critical with multiorgan failure and severe septic shock. He has huge tricuspid valve and probably pulmonic valve vegetations. His prognosis appears guarded. Renal failure worsening hemodialysis to be started , also transfuse for anemia. Respiratory failure and fluid overload persist. Physician Prema Dalton MD Oct 14, 2017 17:51
--- NOTE | 2017-10-14 18:06 | RADRPT ---
EXAM DATE/TIME: 10/14/2017 16:39 [facility] COMPARISON: CT ABDOMEN & PELVIS W CONTRAST, October 04, 2017, 21:21. CT THORAX W/O CONTRAST, October 14, 2017, 0:26. INDICATIONS : Sepsis, hypoxia ORAL CONTRAST: Prescribed oral contrast ingested. RADIATION DOSE: 16.87 CTDIvol (mGy) MEDICAL HISTORY : Methicillin-resistant Staphylococcus aureus. Asthma SURGICAL HISTORY : None. ENCOUNTER: Subsequent ACUITY: 1 week PAIN SCALE: Non-responsive LOCATION: Bilateral Abdomen TECHNIQUE: Volumetric scanning of the abdomen and pelvis was performed. Using automated exposure control and ad justment of the mA and/or kV according to patient size, radiation dose was kept as low as reasonably achievable to obtain optimal diagnostic quality images. DICOM format image data is available electro nically for review and comparison. FINDINGS: LOWER LUNGS: Patchy lung base infiltrates and posterior basilar consolidative change again noted with little berkowitz e. Bilateral effusions and bilateral thoracostomy tubes are present. LIVER: Homogeneous density without lesion. There is no dilation of the biliary tree. No calcified gallston es. SPLEEN: Enlarged without focal mass. PANCREAS: Within normal limits. KIDNEYS: Normal in size and shape. There is no mass, stone, or hydronephrosis. ADRENAL GLANDS: Within normal limits. VASCULAR: There is no aortic aneurysm. BOWEL/MESENTERY: There is mild nonspecific fluid and gaseous distention of bowel. There is small volume of free perito kennedy fluid. A nasogastric tube is present with tip in the stomach. A rectal tube is present. ABDOMINAL WALL: Within normal limits. RETROPERITONEUM: There is no lymphadenopathy. BLADDER: Decompressed with Shine catheter. REPRODUCTIVE: Within normal limits. INGUINAL: There is no lymphadenopathy or hernia. MUSCULOSKELETAL: Within normal limits for patient age. CONCLUSION: No new or acute intra-abdominal or pelvic findings. Madi Mccartney MD on October 14, 2017 at 18:00 Board Certified Radiologist. This report was verified electronically.
[2017-10-14] MEDS: MIDAZOLAM 100 MG/100 ML INJ 100 ML IV PRN (23:58)
[2017-10-15] VITALS (19 sets, daily range): BP systolic 110–121; BP diastolic 56–62; PULSE 107–126; RESP 16–18; TEMP 99.1–101.4; O2SAT 96–100
[2017-10-15] MEDS: CHLORHEXIDINE GLUCONATE 2 % 1 PACK (2 CLOTHS) TOP SCH (03:06)
[2017-10-15] MEDS: fentaNYL DRIP 250 ML IV PRN ×3 (03:06→22:32)
[2017-10-15] MEDS: RESP: ALBUTEROL 2.5 MG/IPRATROPIUM 0.5 MG NEB (SCH) NEB ×3 (03:43→14:40)
[2017-10-15 04:39] LABS: AUTOMATED NEUTROPHIL # 9.4 TH/MM3 (1.8-7.7); BASOPHIL # 0.1 TH/MM3 (0-0.2); BASOPHIL % 0.6 % (0.0-2.0); EOSINOPHIL # 0.2 TH/MM3 (0-0.4); EOSINOPHIL % 1.3 % (0.0-4.0); HEMATOCRIT 21.4 % (39.0-51.0); HEMOGLOBIN 7.4 GM/DL (13.0-17.0); LYMPH % 5.7 % (9.0-44.0); LYMPHOCYTE # 0.6 TH/MM3 (1.0-4.8); MEAN CELL VOLUME 85.4 FL (80.0-100.0); MEAN CORPUSCULAR HEMOGLOBIN 29.3 PG (27.0-34.0); MEAN CORPUSCULAR HGB CONC 34.3 % (32.0-36.0); MEAN PLATELET VOLUME 7.8 FL (7.0-11.0); MONO % 9.2 % (0.0-8.0); NEUT % 83.2 % (16.0-70.0); PLATELET COUNT 151 TH/MM3 (150-450); RED BLOOD COUNT 2.51 MIL/MM3 (4.50-5.90); RED CELL DISTRIBUTION WIDTH 19.8 % (11.6-17.2); WHITE BLOOD COUNT 11.3 TH/MM3 (4.0-11.0)
[2017-10-15 04:49] LABS: INTERNATIONAL NORMALIZED RATIO 1.2 RATIO
--- NOTE | 2017-10-15 04:51 | RADRPT ---
EXAM DATE/TIME: 10/15/2017 03:32 [facility] COMPARISON: CHEST SINGLE AP, October 14, 2017, 5:21. INDICATIONS : Short of breath. MEDICAL HISTORY : Sepsis. pneumothorax SURGICAL HISTORY : bilateral chest tubes. ENCOUNTER: Subsequent ACUITY: 2 weeks PAIN SCORE: 0/10 LOCATION: Bilateral chest FINDINGS: A single AP portable semierect view of the chest was obtained and demonstrates an endotracheal tube i n place with the tip 3 cm above the sydni. The nasogastric tube and right subclavian central venous catheter remain in place. The bilateral airspace disease and effusions are unchanged. Small bore bila teral chest tubes are again noted with no pneumothorax. There is moderate cardiomegaly. CONCLUSION: Stable appearance of bilateral chest tubes and no pneumothoraces. Jogre Jang MD on October 15, 2017 at 4:49 Board Certified Radiologist. This report was verified electronically.
[2017-10-15 05:18] LABS: BICARBONATE 27.7 MEQ/L (21.0-32.0); CALCIUM 8.2 MG/DL (8.5-10.1); CREATININE 4.12 MG/DL (0.60-1.30); MAGNESIUM 2.3 MG/DL (1.5-2.5)
[2017-10-15] MEDS: PROPOFOL 1000 MG/100 ML INJ 100 ML IV PRN ×3 (06:30→18:59)
[2017-10-15] MEDS: CHLORHEXIDINE 0.12% (ORAL KIT) 15 ML CUP MT SCH ×2 (08:00→20:00)
[2017-10-15] MEDS: FLUTICASONE PROPIONATE 44 MCG/ACT 10.6 GM INHALER INH SCH ×2 (09:00→20:59)
[2017-10-15] MEDS: PANTOPRAZOLE SODIUM 40 MG VIAL IV PUSH SCH ×2 (09:25→20:57)
[2017-10-15] MEDS: DOCUSATE SODIUM 50 MG/SENNA 8.6 MG TAB PO SCH ×2 (09:25→20:57)
[2017-10-15] MEDS: RIFAMPIN 150 MG CAP PO SCH ×2 (09:25→20:57)
[2017-10-15] MEDS: VASOPRESSIN INJ 40 UNITS in DEXTROSE 5% IN WATER 100ML INJ 98 ML IV SCH ×2 (09:26)
[2017-10-15] MEDS: ALBUMIN 25% INJ 100 ML IV SCH ×2 (09:26→21:05)
[2017-10-15] MEDS: SODIUM CHLORIDE 0.9% FLUSH 10 ML FLUSH IV FLUSH SCH ×2 (09:27→20:57)
[2017-10-15] MEDS: SODIUM CHLORIDE 0.9% FLUSH 10 ML FLUSH IV FLUSH PRN ×2 (09:27→20:58)
[2017-10-15] MEDS: METHOCARBAMOL 500 MG TAB PO SCH ×4 (09:50→20:57)
[2017-10-15] MEDS: BENEPROTEIN POWDER 1 PACK OG-TUBE SCH ×3 (09:50→18:59)
[2017-10-15] MEDS: ARTIFICIAL TEARS OPTH OINT 3.5 APPLIC/3.5 GM TUBO EACH EYE SCH ×2 (09:50→20:58)
--- NOTE | 2017-10-15 10:25 | HHI.NPPN ---
Subjective History of Present Illness Patient is 27-year-old male who reported to ER with body aches, 7 days of diarrhea with development fever. Past medical history of IV drug use. Patient is sedated and ventilated FiO2 at 40 %. Nephrology is consulted for ZEUS and fluid over load status. Patients creatinine is 3.02 and GFR 25ml/min. Patient is UOP at 800cc for last 24 hours. Weight has increased by over 10 kg since admission. IVF's have been stopped and lasix has been given. Patient has endocarditis with large tricuspid valve vegetation, and pulmonic vegetation. Noted to have bacteremia with hypotension with SBP in the 90's. Additional Remarks Patient intubated and sedated. Currently CPAP trial (Venus Barrett) Objective Data Data Vital Signs Date Time Temp Pulse Resp B/P (MAP) Pulse Ox O2 Delivery O2 Flow Rate FiO2 10/15/17 07:28 100 30 10/15/17 06:00 109 10/15/17 04:45 100 40 10/15/17 04:00 40 10/15/17 04:00 100.4 116 16 118/56 (76) 100 10/15/17 04:00 116 10/15/17 02:00 123 10/15/17 01:16 97 40 10/15/17 00:00 100.1 126 16 116/59 (78) 99 10/15/17 00:00 126 10/15/17 00:00 40 10/14/17 22:30 98 40 10/14/17 22:00 126 10/14/17 20:00 100.1 111 16 124/68 (86) 100 10/14/17 20:00 111 10/14/17 20:00 40 10/14/17 19:10 100 40 10/14/17 18:00 4 10/14/17 18:00 109 10/14/17 17:44 106 121/68 10/14/17 17:18 100 40 10/14/17 16:30 100 40 10/14/17 16:00 106 10/14/17 16:00 99.4 109 18 118/62 (80) 100 10/14/17 16:00 99.4 106 118/62 100 10/14/17 16:00 40 10/14/17 15:30 107 118/65 100 10/14/17 15:14 108 17 116/63 100 10/14/17 14:58 109 3 131/81 100 10/14/17 14:43 99.2 109 0 121/60 100 10/14/17 14:30 99.3 111 18 122/69 100 10/14/17 14:00 114 10/14/17 13:39 100 40 10/14/17 12:00 99.1 109 16 118/64 (82) 100 10/14/17 12:00 40 10/14/17 12:00 109 (Venus Barrett) -: 10/15/17 0400 10/15/17 0400 Physical Exam General Appearance: No Acute Distress (Venus Barrett) Pulmonary Resp Exam: Rhonchi, Decreased Bases, Diminished Breath Sounds, Poor Inspiratory Effort (Venus Barrett) Cardiology CV Exam: Regular (Venus Barrett) Gastrointestinal/Abdomen GI Exam: Soft, Non-Tender, Bowel Sounds Present (Venus Barrett) Integumentary Skin Exam: Clear, Warm (Venus Barrett) Extremeties Extremities Exam: Moderate Edema, Dependent Edema (Venus Barrett) Neurologic Neuro Exam: Sedated (Venus Barrett) Assessment/Plan Problem List: (1) ZEUS (acute kidney injury) ICD Codes: N17.9 - Acute kidney failure, unspecified Plan: ZEUS most likely ATN from sepsis and low blood pressure. Other differential will be ATN, Acute interstitial nephritis, and Post infectious GN,unlikely. On antibiotics ID following HD yesterday 3 1/2 liters removed. Creatinine 4.12 with UOP of 500 ml over past 24 hours. Anemia hgb of 7.4 and potassium WNL Will continue to monitor labs and urinary output HD as needed and watch for renal recovery. Vas Cath removed yesterday due to fever new vascath on . dialysis tomorrow (2) Sepsis ICD Codes: A41.9 - Sepsis, unspecified organism Status: Acute Plan: Antibiotics per ID (3) Endocarditis ICD Codes: I38 - Endocarditis, valve unspecified Status: Acute (Venus Barrett) Problem List: (1) ZEUS (acute kidney injury) ICD Codes: N17.9 - Acute kidney failure, unspecified Plan: ZEUS most likely ATN from sepsis and low blood pressure. Other differential will be ATN, Acute interstitial nephritis, and Post infectious GN,unlikely. On antibiotics ID following HD yesterday 3 1/2 liters removed. Creatinine 4.12 with UOP of 500 ml over past 24 hours. Anemia hgb of 7.4 and potassium WNL Will continue to monitor labs and urinary output HD as needed and watch for renal recovery. Vas Cath removed yesterday due to fever new vascath on . dialysis tomorrow. Patient seen and examined, agree with above. Still spiking fever, continue antibiotics as per ID. MARTÍN is low titre. (2) Sepsis ICD Codes: A41.9 - Sepsis, unspecified organism Status: Acute Plan: Antibiotics per ID (3) Endocarditis ICD Codes: I38 - Endocarditis, valve unspecified Status: Acute (Darek Tapia MD) Problem Qualifiers (1) Sepsis: Qualified Codes: A41.9 - Sepsis, unspecified organism (2) Endocarditis: Venus Barrett Oct 15, 2017 10:25 Darek Tapia MD Oct 15, 2017 19:00
--- NOTE | 2017-10-15 10:42 | HHI.CCPN ---
Subjective Remarks/Hospital Course 27-year-old male with remote history of IV drug abuse, states he last used heroin 2 months ago, presents for evaluation of 8 days of body aches, 7 days of diarrhea with development of subjective fever yesterday. Patient denies any nausea or vomiting. He denies any chest pain. States that he is short of breath and feels anxious. This has developed within the last 24 hours. Patient does have a cough with clear sputum. Denies any prior history of endocarditis. Denies any abdominal pain. Does report some left back pain, worse while lying flat. He is well reports generalized weakness. 10/04/17: He is critically ill, remains febrile up to 103, tachycardic diaphoretic. large tricuspid valve vegetation on bedside echo, formal echo pending. Infectious disease consulted, CT surgery consult ordered. D/W Dr. Macias and Dr. Charles. CARMEN/video poker floorman consult ordered. Hb 6.6 getting 2U PRBC 10/05: Remains critically ill intubated sedated. TE on yesterday TEF 40-45%. Large mobile vegetation noted on the tricuspid valve, may be 2 separate vegetations, measures overall 4cm x 1.7cm. Probable mobile density noted on the pulmonic valve. CT of the chest shows extensive septic emboli and consolidation , with loculated appearing effusion on the left base. Dr. Charles CT surgery recommends 4-6 weeks of IV antibiotics followed by repeat echo, considering surgery at that time if no improvement 10/06: Worsening CXR, with bibasilar worsening infiltrates and effusion. IR to place CT-guided left chest tube today for loculated effusion. Fluid overloaded approximately 8 kg. IV Lasix 40 mg x1. MSSA bacteremia persists 10/07: Remains intubated sedated remains critical severe volume overload with worsening renal function creatinine 3, weight up by at least [address] him on Bumex infusion and consult nephrology. Patient remains slightly oliguric 800 mL urine output in 24 hours. Chest x-ray showed bilateral infiltrates and worsening right effusion 10/08: Remains intubated heavily sedated oliguric. Continues to have positive fluid balance creatinine increased to 4.3. Hemoglobin 6.9. Currently on Bumex infusion with not adequate response. Persistently bacteremic. Bilateral infiltrates on chest x-ray with moderate right effusion 10/09: Intubated sedated remains severely fluid overloaded started on hemodialysis yesterday with 4 L removed still positive fluid balance. Hemoglobin 6.81 unit PRBC transfusion ordered along with calcium replacement. GI consulted for further workup. Large pleural effusion on right side plan for pigtail chest tube placement 10/10: Intubated sedated. Had HD with 25L removed yesterday. right chest tube placed yesterday 1.2 L of old blood tinged effusion drained-Gram stain negative. Chest x-ray shows improvement in effusion. Remains severely fluid overloaded still remains 16-17 kg up. Discussed with nephrology plan for HD with maximum fluid removal as tolerated 10/11: The patient continues on sedation intubated, opens eyes spontaneously, not follow commands. The patient underwent hemodialysis yesterday approximately 3 L off. Bilateral chest tubes no leak noted. Minimal output left chest tube. 10/12: Daily sedation vacation initiated, opens eyes spontaneously, and following commands as squeezing hands bilaterally. Movement of lower extremities. She noted to have very thick secretions. Hemodialysis performed yesterday, approximately 3 L off. Patient noted to have thick copious secretions from airway, with worsening airspace disease on the right. Gen. surgery consulted for tracheostomy. 10/13: Patient remains critically ill opens eyes and follows commands on sedation hold. Did not tolerate CPAP trial today. Cancelled gen surgery consult for trach due to possible need for valve surgery. Continues to spike fever. Plan for changing line today 10/14: Plan for removal of vas catheter today, and to be replaced on . CT of the abdomen and pelvis pending. The patient was noted to have a drop in hemoglobin to 6.9 patient being transfused 1 unit of packed red blood cells. Left chest tube TPA instilled per IR serosanguineous drainage from left chest tube. Right chest tube placed to waterseal. 10/15: Afebrile. Patient continues on CPAP this am > 3 hours currently. Patient following commands. Discussed with Gen. Surgery, Ms. Zelaya to continue CPAP trials today. Per General Surgery conversation with CTS, Dr. Chalres, if patient continues to fail CPAP trials, ok'd with CTS for tracheostomy. Pt received 1 u PRBC yesterday, Hgb, stable. Objective Vital Signs Date Time Temp Pulse Resp B/P (MAP) Pulse Ox O2 Delivery O2 Flow Rate FiO2 10/15/17 07:28 100 30 10/15/17 06:00 109 10/15/17 04:00 100.4 16 118/56 (76) Intake and Output 10/15/17 10/15/17 10/16/17 08:00 16:00 00:00 Intake Total 874 ml Output Total 298 ml Balance 576 ml Result Diagram: 10/15/17 0400 10/15/17 0400 Imaging Last Impressions Chest X-Ray 10/15/17 06 Signed Impressions: Service Date/Time: Sunday, October 15, 2017 03:32 - CONCLUSION: Stable appearance of bilateral chest tubes and no pneumothoraces. Jorge Jang MD Chest CT 10/14/17 0000 Signed Impressions: Service Date/Time: Saturday, October 14, 2017 00:26 - CONCLUSION: 1. Bilateral scattered pulmonary nodules are again noted. Several of the right nodules are now cavitary and likely represent septic emboli given the history of IV drug abuse. 2. Interval placement of bilateral chest tubes with small pleural effusions noted. 3. Dense consolidation remains in the posterior lower lobes. Jorge Jang MD Abdomen/Pelvis CT 10/14/17 0000 Signed Impressions: Service Date/Time: Saturday, October 14, 2017 16:39 - CONCLUSION: No new or acute intra-abdominal or pelvic findings. Madi Mccartney MD Upper Extremity Ultrasound 10/13/17 0000 Signed Impressions: Service Date/Time: Friday, October 13, 2017 11:25 - CONCLUSION: Normal examination. Christian Kaur MD Abdomen X-Ray 10/10/17 0000 Signed Impressions: Service Date/Time: Tuesday, October 10, 2017 16:46 - CONCLUSION: Negative for free air or obstruction. Rahul Yarbrough MD FACR Chest Tube Insertion 10/06/17 0000 Signed Impressions: Service Date/Time: Friday, October 06, 2017 15:37 - CONCLUSION: Uncomplicated chest tube placement as above. Emerson Hui MD Last Impressions Chest X-Ray 10/14/17 0600 Signed Impressions: Service Date/Time: Saturday, October 14, 2017 05:21 - CONCLUSION: 1. Interval removal of left subclavian central venous line. 2. Bilateral chest tubes remain in place with no pneumothorax. 3. No significant change in the bilateral airspace disease. Jorge Jang MD Chest CT 10/14/17 0000 Signed Impressions: Service Date/Time: Saturday, October 14, 2017 00:26 - CONCLUSION: 1. Bilateral scattered pulmonary nodules are again noted. Several of the right nodules are now cavitary and likely represent septic emboli given the history of IV drug abuse. 2. Interval placement of bilateral chest tubes with small pleural effusions noted. 3. Dense consolidation remains in the posterior lower lobes. Jorge Jang MD Upper Extremity Ultrasound 10/13/17 0000 Signed Impressions: Service Date/Time: Friday, October 13, 2017 11:25 - CONCLUSION: Normal examination. Christian Kaur MD Abdomen X-Ray 10/10/17 0000 Signed Impressions: Service Date/Time: Tuesday, October 10, 2017 16:46 - CONCLUSION: Negative for free air or obstruction. Rahul Yarbrough MD FACR Chest Tube Insertion 10/06/17 0000 Signed Impressions: Service Date/Time: Friday, October 06, 2017 15:37 - CONCLUSION: Uncomplicated chest tube placement as above. Emerson Hui MD Abdomen/Pelvis CT 10/04/17 0000 Signed Impressions: Service Date/Time: Wednesday, October 04, 2017 21:21 - CONCLUSION: 1. Severe hepatosplenomegaly without focal lesion. 2. Free fluid in the pelvis. 3. Abnormal lower lungs and pleural effusions. 4. Prominent varices about the splenic vein. Mat Alejandra MD Last Impressions Chest X-Ray 10/11/17 0600 Signed Impressions: Service Date/Time: Wednesday, October 11, 2017 03:30 - CONCLUSION: Mild improvement in pulmonary edema with residual edema remaining. Left basilar opacity is present may be due to a combination of consolidation and or pleural effusion. All Kim MD Abdomen X-Ray 10/10/17 0000 Signed Impressions: Service Date/Time: Tuesday, October 10, 2017 16:46 - CONCLUSION: Negative for free air or obstruction. Rahul Yarbrough MD FACR Chest Tube Insertion 10/06/17 0000 Signed Impressions: Service Date/Time: Friday, October 06, 2017 15:37 - CONCLUSION: Uncomplicated chest tube placement as above. Emerson Hui MD Chest CT 10/04/17 0000 Signed Impressions: Service Date/Time: Wednesday, October 04, 2017 21:18 - CONCLUSION: Abnormal diffuse airspace opacities throughout both lungs with bilateral lower lobe consolidation and patchy focal areas of consolidation the remainder of the lungs. There is also bilateral pleural effusions with probable loculation. Mat Alejandra MD Abdomen/Pelvis CT 10/04/17 0000 Signed Impressions: Service Date/Time: Wednesday, October 04, 2017 21:21 - CONCLUSION: 1. Severe hepatosplenomegaly without focal lesion. 2. Free fluid in the pelvis. 3. Abnormal lower lungs and pleural effusions. 4. Prominent varices about the splenic vein. Mat Alejandra MD Objective Remarks GENERAL: Well-nourished, well-developed patient. Critically ill, intubated , following commands SKIN: Warm and dry. Extensive tattoos limits skin exam. Anasarca HEAD: Normocephalic. EYES: No scleral icterus. No injection or drainage. Slight periorbital edema noted. ENT: Orotracheally intubated NECK: Supple, trachea midline. No JVD or lymphadenopathy. RIJ Vascath in place. Left subclavian central line in place CARDIOVASCULAR: S1-S2 normal with systolic murmur at the left sternal border. Large TV vegetation on bedside echo RESPIRATORY: Air entry is equal bilaterally, coarse rhonchi and crackles. Bilateral pig tail chest tubes in place.Right to water seal for 24 hours. GASTROINTESTINAL: Abdomen soft, non-tender, nondistended. MUSCULOSKELETAL: No cyanosis. Significant anasarca NEURO EXAM: RASS-1, Pupils are round, reactive to light. Spontaneous eye opening .Moves extremities spontaneously and follows commands when sedation is lightened B/L upper extremities. A/P Assessment and Plan Neuro IVDU: - Propofol Versed and fentanyl for vent synchrony and sedation - Watch closely for withdrawal - Daily sedation medication as tolerated Resp: Acute hypoxemic respiratory failure Extensive septic emboli, consolidation of the lung Loculated left effusion, large right effusion - Continue ventilator support, no vent weaning until respiratory status, fluid overload improved - IR placed left chest tube 10/06 with more than 1 L exudative fluid out. - Placed right-sided pigtail chest tube at the bedside 10/09, brown tinged fluid approximately 1.1 L initial output, now output is minimum - Water seal right chest tube with CXR in am, remove if nor PTX on 10/14/17 - Discussed with cardiothoracic surgery Dr. Charles, patient may need decortication, if not adequately drained - Broad-spectrum antibiotics per ID, see below - DuoNeb q6hr and PRN - Clarification of tracheostomy as Dr. Charles may do valve surgery to remove vegetation if infection not clearing with ABX, pending - Day 11 ETT- Pt continues on CPAP trials currently CVS: Large tricuspid valve vegetation, and pulmonic vegetation Severe sepsis Fluid overload - Bedside echo shows mild tricuspid vegetation - Cardiology and CT surgery following - CARMEN 10/04: EF 40-45%. Large mobile vegetation on tricuspid valve, may be 2 separate vegetations, measures overall 4cm x 1.7cm. - Probable mobile density noted on the pulmonic valve. - See ID section for ABX - Dr. Charles CT surgery recommends 4-6 weeks of antibiotics and repeat echo - He may do valve surgery to remove vegetation if infection not clearing with ABX - Fluid up by >15 kg, HD started 10/08. Dr. Tapia GI: Hepatosplenomegaly Diarrhea - IV Protonix due to persistent anemia. GI following - Tube feeds with Jevity - Check C Diff, if diarrhea persist - Hepatitis C reactive - GI consulted - patient has hepatosplenomegaly, appreciate Dr. Xiong's input : Acute kidney failure with fluid overload Dehydration on admission - Currently fluid overloaded with worsening bilateral effusion. - DCd Bumex infusion started hemodialysis 10/08, see above - Strict I's and O's, Monitor trend of creatinine - Electrolytes replacement per ICU protocol - 10/14-removal vas catheter. To be replaced on 10/16- discussed with nephrology and infectious disease ID: Tricuspid and pulmonic valve endocarditis Septic emboli to the lung Severe sepsis MSSA bacteremia - Discussed with Dr. Charles CT surgery 10/05/17 - He recommends 4-6 weeks of IV antibiotics with repeat echo, consideration for surgery if Vegetations persists - Ceftaroline, Cefazolin, Rifampin per ID Dr. Macias - Persistent MSSA bacteremia, cultures reviewed - F/u HIV, Hepatitis panel. Hepatitis C reactive - 10/14-CT of the abdomen and pelvis f/u results Endo: -Electrolyte replacement per protocol Heme: Anemia requiring transfusion Thrombocytopenia - 1U PRBC today. LDH mildly elevated and haptoglobin normal, Transfusion 1u PRBC on 10/14 - Monitor CBC, Coags - Thrombocytopenia most likely from sepsis and DIC DVT GI prophylaxis - TEDs SCDs - Started Heparin 5000 U sq q8 10/07, holding 10/08 due to blood loss - Protonix 40 q12 Critical Care: my billing statement This patient remains critically ill with one or more organ systems which are or may become a threat to life. I have spent in excess of 30 minutes discontinuously in the care and management of this patient. This time is exclusive of procedures, and includes, but is not limited to, evaluation of the patient, review of the medical record, discussions with family, consultants, nursing staff, or respiratory therapy, and documentation in the medical record. Patient remains critical with multiorgan failure and severe septic shock. He has huge tricuspid valve and probably pulmonic valve vegetations. His prognosis appears guarded. Renal failure worsening hemodialysis to be started , also transfuse for anemia. Respiratory failure and fluid overload persist. Physician Prema Dalton MD Oct 15, 2017 10:42
--- NOTE | 2017-10-15 12:22 | HHI.GIFU ---
Subjective Remarks Intubated on vent. undergoing CPAP trials, trach on hold. (Kierra Paul PLANT SUPERINTENDENT) Objective Vitals I&O Vital Signs Date Time Temp Pulse Resp B/P (MAP) Pulse Ox O2 Delivery O2 Flow Rate FiO2 10/15/17 11:44 100 30 10/15/17 08:00 111 10/15/17 07:28 100 30 10/15/17 06:00 109 10/15/17 04:45 100 40 10/15/17 04:00 40 10/15/17 04:00 100.4 116 16 118/56 (76) 100 10/15/17 04:00 116 10/15/17 02:00 123 10/15/17 01:16 97 40 10/15/17 00:00 100.1 126 16 116/59 (78) 99 10/15/17 00:00 126 10/15/17 00:00 40 10/14/17 22:30 98 40 10/14/17 22:00 126 10/14/17 20:00 100.1 111 16 124/68 (86) 100 10/14/17 20:00 111 10/14/17 20:00 40 18 19:10 100 40 18 18:00 4 10/14/17 18:00 109 10/14/17 17:44 106 121/68 18 17:18 100 40 18 16:30 100 40 18 16:00 106 10/14/17 16:00 99.4 109 18 118/62 (80) 100 10/14/17 16:00 99.4 106 118/62 100 18 16:00 40 18 15:30 107 118/65 100 18 15:14 108 17 116/63 100 18 14:58 109 3 131/81 100 10/14/17 14:43 99.2 109 0 121/60 100 10/14/17 14:30 99.3 111 18 122/69 100 18 14:00 114 10/14/17 13:39 100 40 I/O 18 2/18 2//18 2/18 2//18 10/15/17 07:00 15:00 23:00 07:00 15:00 23:00 Intake Total 1019 ml 422 ml 888 ml 1174 ml Output Total 260 ml 3500 ml 50 ml 298 ml Balance 759 ml -3078 ml 838 ml 876 ml IV Total 1019 ml 412 ml 288 ml 973 ml Tube Feeding 201 ml Packed Cells 400 ml Blood Product IV Normal Saline Flush 10 ml Tube Irrigant 200 ml Output Urine Total 250 ml 200 ml Chest Tube Drainage Total 10 ml 50 ml 98 ml Hemodialysis 3500 ml # Bowel Movements 1 Laboratory Laboratory Tests Test 10/15/17 04:00 White Blood Count 11.3 Red Blood Count 2.51 Hemoglobin 7.4 Hematocrit 21.4 Mean Corpuscular Volume 85.4 Mean Corpuscular Hemoglobin 29.3 Mean Corpuscular Hemoglobin Concent 34.3 Red Cell Distribution Width 19.8 Platelet Count 151 Mean Platelet Volume 7.8 Neutrophils (%) (Auto) 83.2 Lymphocytes (%) (Auto) 5.7 Monocytes (%) (Auto) 9.2 Eosinophils (%) (Auto) 1.3 Basophils (%) (Auto) 0.6 Neutrophils # (Auto) 9.4 Lymphocytes # (Auto) 0.6 Monocytes # (Auto) 1.0 Eosinophils # (Auto) 0.2 Basophils # (Auto) 0.1 CBC Comment DIFF FINAL Differential Comment Prothrombin Time 12.0 Prothromb Time International Ratio 1.2 Blood Urea Nitrogen 52 Creatinine 4.12 Random Glucose 79 Calcium Level 8.2 Magnesium Level 2.3 Sodium Level 135 Potassium Level 4.3 Chloride Level 97 Carbon Dioxide Level 27.7 Anion Gap 10 Estimat Glomerular Filtration Rate 18 Date/Time Source Procedure Growth Status 10/13/17 15:12 Blood Peripheral Aerobic Blood Culture - Preliminary NO GROWTH IN 2 DAYS Resulted 10/13/17 15:12 Blood Peripheral Anaerobic Blood Culture - Preliminary NO GROWTH IN 2 DAYS Resulted 10/09/17 12:00 Fluid Pleural Fluid Fungal Smear - Final NO FUNGAL ELEMENTS SEEN. Resulted 10/09/17 12:00 Fluid Pleural Fluid Fungal Culture Pending Resulted 10/04/17 03:49 Sputum Expectorated Sputum Gram Stain - Final Complete 10/04/17 03:49 Sputum Expectorated Sputum Sputum Culture - Final HEAVY GROWTH NORMAL RESPIRATORY RHIANNON Complete 10/03/17 21:30 Urine Random Urine Legionella Antigen - Final PRESUMPTIVE NEGATIVE FOR LEGIONELLA P... Complete 10/03/17 21:30 Urine Random Urine Streptococcus pneumoniae Antigen (M - Final PRESUMPTIVE NEGATIVE FOR STREPTOCOCCU... Complete Imaging Last Impressions Chest X-Ray 10/15/17 0600 Signed Impressions: Service Date/Time: Sunday, October 15, 2017 03:32 - CONCLUSION: Stable appearance of bilateral chest tubes and no pneumothoraces. Jorge Jang MD Chest CT 10/14/17 0000 Signed Impressions: Service Date/Time: Saturday, October 14, 2017 00:26 - CONCLUSION: 1. Bilateral scattered pulmonary nodules are again noted. Several of the right nodules are now cavitary and likely represent septic emboli given the history of IV drug abuse. 2. Interval placement of bilateral chest tubes with small pleural effusions noted. 3. Dense consolidation remains in the posterior lower lobes. Jorge Jang MD Abdomen/Pelvis CT 10/14/17 0000 Signed Impressions: Service Date/Time: Saturday, October 14, 2017 16:39 - CONCLUSION: No new or acute intra-abdominal or pelvic findings. Madi Mccartney MD Upper Extremity Ultrasound 10/13/17 0000 Signed Impressions: Service Date/Time: Friday, October 13, 2017 11:25 - CONCLUSION: Normal examination. Christian Kaur MD Abdomen X-Ray 10/10/17 0000 Signed Impressions: Service Date/Time: Tuesday, October 10, 2017 16:46 - CONCLUSION: Negative for free air or obstruction. Rahul Yarbrough MD FACR Chest Tube Insertion 10/06/17 0000 Signed Impressions: Service Date/Time: Friday, October 06, 2017 15:37 - CONCLUSION: Uncomplicated chest tube placement as above. Emerson Hui MD Physical Exam HEENT: Normocephalic intubated CHEST: coarse CARDIAC: Sinus tachycardia ABDOMEN: Distended,semifirm, bowel sounds faint tympanitic EXTREMITIES: Extremity edema COMMUNICABLE DISEASE SPECIALIST: Sedated (Kierra Paul) Assessment and Plan Plan ASSESSMENT - anemia - normocytic hgb 8.8 on admission and trending down. 2/2 sepsis, hemodilution, spherocytosis? no obvious bleeding hemoccult pending. + family hx spherocytosis. CT showed hepatosplenomegaly severe, splenic vein varices s/p 4 X PRBC, 5th unit pending. - elevated LFTs - unclear etiology could be shock liver. he is + hep c ab. - septic emboli, respiratory failiure, IVDU, fluid overload, endocarditis and valve vegetations, ZEUS - CT surgery, ID, nephrology following (10/13) --> Abdomen distended and firm. Spoke with RN who states pt was tolerating TF without high residuals. Currently turned off and OG clamped because stopcock on tubing came dislodged during US procedure earlier. Last BM was yesterday, she reports no obvious source of GIB. Drop in H/H currently 7.6/22.3, last transfused Oct 09. Likely multifactorial, given decreased renal function. LFTs improving: AST-37 ALT-9 Alk phos-199 T bili- 1.1. Liver ERICKSON --> Hep C antibody (+), RNA 10,700, genotype pending. MARTÍN positive, titer pending. ASMA negative. Ceruloplasmin-38. Iron-19 Ferritin-1217. Liver imaging (CT abdomen and pelvis 10/04) --> Hepatomegaly with superior inferior dimension 24 cm. No focal lesions seen. No biliary duct dilation. No calcified gallstones. Pt remains mechanically ventilated via ETT, tracheostomy on hold because pt may be needing a valve replacement. Spoke with Dr. Barraza. ZEUS- dialysis (10/14) --> Pt remains sedated and mechanically ventilated. Drop in H/H noted, currently 6.9, pt receiving one unit PRBCs. Per RN no reports of GI bleeding, no coffee ground emesis, (+) BM this morning, she states brown. Pts TF on hold at this time for CT abdomen and pelvis being done at 1600. 10/15/[address] under way. Poss pt may need TAVR per [facility]. TF running 25/ hr. CT noted, nothing new. LFTs trending down. ceruloplasmin 38. AMA still pending. had 1x prbc yesterday PLAN - continue TF - await AMA - Monitor LFTs - Monitor H/H - Notify GI of any active bleeding - PEG at time of tracheostomy - Further recommendations to follow based on clinical course and results of above Pt has been seen and examined by myself and Dr. Boyd and this note is written on his behalf (Kierra Paul) Physician Comments Seen and examined with PLANT SUPERINTENDENT, no acute finding on CT. H/H stable post transfusion. No acute gi issues. May need PEG. Will sign off, reconsult as needed. Thank you (Ravi Boyd MD) Kierra Paul Oct 15, 2017 12:22 Ravi Boyd MD Oct 15, 2017 14:27
--- NOTE | 2017-10-15 13:09 | HHI.IDPN ---
Subjective Subjective Remarks is a 27 y/o CM with remote history of IV drug abuse, states he last used heroin 2 months ago, presents for evaluation of body aches, 7 days of diarrhea with development of subjective fever yesterday. Patient denies any nausea or vomiting. He denies any chest pain. This has developed within the last 24 hours. Patient does have a cough with clear sputum. Denies any prior history of endocarditis. Denies any abdominal pain. Does report some left back pain, worse while lying flat. He is well reports generalized weakness. Patient met criteria for sepsis on admission. Flu antigen negative. CXR with bilateral infiltrates. performed a bedside 2D ECHO and verbally reported a large ~4.5 cm vegetation on TV. CXR suspicious for septic emboli. Blood cultures drawn but it appears patient has received augmentin at some point and cultures may possibly be negative. At the time of my evaluation patient is in the ICU, appears in respiratory distress there is a plan for intubation and CARMEN today. UO ok. No diarrhea, no rash. Not on pressors. ID is consulted for evaluation and Mment of Severe Sepsis and Endocarditis. Overnight events reviewed. Fevers defervesced. Pt has 3 vegetations on tricuspid and pulmonic valve. No rash No diarrhea UO low. Vascath removed. CL changed. Remains on vent. FiO2 40%, PEEP 5. Secretions moderate pale yellow. Has Bilateral CTs in place. CL changed. Antibiotics Ancef IV Teflaro IV rifampin Lines Line sites with no e.o infection Past Medical History Past Medical History Asthma HCV Past Surgical History No surgical history per records. Allergies: Coded Allergies: erythromycin base (Verified Allergy, Severe, Nausea/Vomiting, 10/03/17) raspberry (Unverified Allergy, Mild, 10/03/17) Objective . Vital Signs Date Time Temp Pulse Resp B/P (MAP) Pulse Ox O2 Delivery O2 Flow Rate FiO2 10/15/17 12:00 99.1 117 17 112/62 (79) 100 10/15/17 12:00 30 10/15/17 12:00 119 10/15/17 11:44 100 30 10/15/17 10:00 117 10/15/17 08:00 30 10/15/17 08:00 99.6 111 17 118/59 (78) 100 10/15/17 08:00 111 10/15/17 07:28 100 30 10/15/17 06:00 109 10/15/17 04:45 100 40 10/15/17 04:00 40 10/15/17 04:00 100.4 116 16 118/56 (76) 100 10/15/17 04:00 116 10/15/17 02:00 123 10/15/17 01:16 97 40 10/15/17 00:00 100.1 126 16 116/59 (78) 99 10/15/17 00:00 126 10/15/17 00:00 40 10/14/17 22:30 98 40 10/14/17 22:00 126 10/14/17 20:00 100.1 111 16 124/68 (86) 100 10/14/17 20:00 111 10/14/17 20:00 40 10/14/17 19:10 100 40 10/14/17 18:00 4 10/14/17 18:00 109 10/14/17 17:44 106 121/68 10/14/17 17:18 100 40 10/14/17 16:30 100 40 10/14/17 16:00 106 10/14/17 16:00 99.4 109 18 118/62 (80) 100 10/14/17 16:00 99.4 106 118/62 100 10/14/17 16:00 40 10/14/17 15:30 107 118/65 100 10/14/17 15:14 108 17 116/63 100 10/14/17 14:58 109 3 131/81 100 10/14/17 14:43 99.2 109 0 121/60 100 10/14/17 14:30 99.3 111 18 122/69 100 10/14/17 14:00 114 10/14/17 13:39 100 40 18 18 10/16/17 15:00 23:00 07:00 Intake Total 100 ml Balance 100 ml IV Total 100 ml . Laboratory Tests Test 10/14/17 03:15 10/15/17 04:00 White Blood Count 10.7 TH/MM3 11.3 TH/MM3 Red Blood Count 2.33 MIL/MM3 2.51 MIL/MM3 Hemoglobin 6.9 GM/DL 7.4 GM/DL Hematocrit 20.0 % 21.4 % Mean Corpuscular Volume 86.1 FL 85.4 FL Mean Corpuscular Hemoglobin 29.9 PG 29.3 PG Mean Corpuscular Hemoglobin Concent 34.7 % 34.3 % Red Cell Distribution Width 20.1 % 19.8 % Platelet Count 151 TH/MM3 151 TH/MM3 Mean Platelet Volume 8.1 FL 7.8 FL Neutrophils (%) (Auto) 82.1 % 83.2 % Lymphocytes (%) (Auto) 7.5 % 5.7 % Monocytes (%) (Auto) 8.4 % 9.2 % Eosinophils (%) (Auto) 1.5 % 1.3 % Basophils (%) (Auto) 0.5 % 0.6 % Neutrophils # (Auto) 8.8 TH/MM3 9.4 TH/MM3 Lymphocytes # (Auto) 0.8 TH/MM3 0.6 TH/MM3 Monocytes # (Auto) 0.9 TH/MM3 1.0 TH/MM3 Eosinophils # (Auto) 0.2 TH/MM3 0.2 TH/MM3 Basophils # (Auto) 0.1 TH/MM3 0.1 TH/MM3 CBC Comment DIFF FINAL DIFF FINAL Differential Comment Laboratory Tests Test 10/14/17 03:15 10/15/17 04:00 Blood Urea Nitrogen 63 MG/DL 52 MG/DL Creatinine 4.97 MG/DL 4.12 MG/DL Random Glucose 78 MG/DL 79 MG/DL Total Protein 7.6 GM/DL Albumin 2.4 GM/DL Calcium Level 8.2 MG/DL 8.2 MG/DL Magnesium Level 2.4 MG/DL 2.3 MG/DL Alkaline Phosphatase 119 U/L Aspartate Amino Transf (AST/SGOT) 19 U/L Alanine Aminotransferase (ALT/SGPT) LESS THAN 6 U/L Total Bilirubin 1.2 MG/DL Sodium Level 134 MEQ/L 135 MEQ/L Potassium Level 4.4 MEQ/L 4.3 MEQ/L Chloride Level 95 MEQ/L 97 MEQ/L Carbon Dioxide Level 26.7 MEQ/L 27.7 MEQ/L Anion Gap 12 MEQ/L 10 MEQ/L Estimat Glomerular Filtration Rate 14 ML/MIN 18 ML/MIN Microbiology Date/Time Source Procedure Growth Status 10/13/17 15:12 Blood Peripheral Aerobic Blood Culture - Preliminary NO GROWTH IN 2 DAYS Resulted 10/13/17 15:12 Blood Peripheral Anaerobic Blood Culture - Preliminary NO GROWTH IN 2 DAYS Resulted 10/13/17 14:45 Blood Line Aerobic Blood Culture - Preliminary NO GROWTH IN 2 DAYS Resulted 10/13/17 14:45 Blood Line Anaerobic Blood Culture - Preliminary NO GROWTH IN 2 DAYS Resulted Imaging Last Impressions Chest X-Ray 10/04/17 0000 Signed Impressions: Service Date/Time: Wednesday, October 04, 2017 16:11 - CONCLUSION: 1. ET tube in good position. 2. Significant increase in bilateral airspace opacities, now with consolidation in the lower lungs bilaterally. Mat Alejandra MD Chest CT 10/04/17 0000 Signed Impressions: Service Date/Time: Wednesday, October 04, 2017 21:18 - CONCLUSION: Abnormal diffuse airspace opacities throughout both lungs with bilateral lower lobe consolidation and patchy focal areas of consolidation the remainder of the lungs. There is also bilateral pleural effusions with probable loculation. Mat Alejandra MD Abdomen/Pelvis CT 10/04/17 0000 Signed Impressions: Service Date/Time: Wednesday, October 04, 2017 21:21 - CONCLUSION: 1. Severe hepatosplenomegaly without focal lesion. 2. Free fluid in the pelvis. 3. Abnormal lower lungs and pleural effusions. 4. Prominent varices about the splenic vein. Mat Alejandra MD Physical Exam GENERAL: This is a well-nourished, well-developed patient, in no apparent distress. SKIN: No rashes, ecchymoses or lesions. Cool and dry. Multiple tattoos. HEAD: Atraumatic. Normocephalic. No temporal or scalp tenderness. EYES: Pupils equal round and reactive. Extraocular motions intact. ENT: Intubated. NECK: Trachea midline. Supple, nontender, no meningeal signs. CARDIOVASCULAR: ? systolic murmur. RESPIRATORY: Decreased air entry bilaterally bases. GASTROINTESTINAL: Abdomen soft, distended, ? LUQ tenderness MUSCULOSKELETAL: Extremities without clubbing, cyanosis, or edema. NEUROLOGICAL: Sedated, moves extremities. Psych cooperative IV line sites with no e.o infection. Assessment & Plan Remarks Severe Sepsis present on admission MSSA endocarditis. MSSA bacteremia persistent Bilateral pleural effusions: left side appears loculated possible empyema. TV and Pulmonic valve endocarditis Pneumonia: septic emboli, aspiration pneumonia. IVDA: heroin, cocaine and methamphetamine. Acute renal failure: Sepsis, meds,contrast. - on HD Recs: Continue Teflaro IV (salvage Rx for endocarditis given persistent bacteremia and renal failure) Continue Ancef IV (will be the primary drug once bacteremia controlled) Continue Rifampin oral. CT A/P with no abscess or drainable focus. Ok to place Vascath in am for HD. Follow cultures Follow clinically d/w Lakia Colby MD Oct 15, 2017 13:09
[2017-10-15] MEDS: HEPARIN SODIUM - SQ 10,000 UNITS/ML VIAL SQ SCH ×2 (13:27→21:05)
[2017-10-15] MEDS: CEFTAROLINE INJ 300 MG in SODIUM CHLORIDE 0.9% INJ 100 ML IV SCH (13:34)
--- NOTE | 2017-10-15 15:23 | HHI.PR ---
cc: Jorge Jimenez MD Subjective Subjective Notes Intubated/Sedated Objective Vitals/I&O Vital Signs Date Time Temp Pulse Resp B/P (MAP) Pulse Ox O2 Delivery O2 Flow Rate FiO2 10/15/17 14:37 96 30 10/15/17 14:00 119 10/15/17 12:00 99.1 17 112/62 (79) Labs Laboratory Tests Test 10/15/17 04:00 White Blood Count 11.3 Red Blood Count 2.51 Hemoglobin 7.4 Hematocrit 21.4 Mean Corpuscular Volume 85.4 Mean Corpuscular Hemoglobin 29.3 Mean Corpuscular Hemoglobin Concent 34.3 Red Cell Distribution Width 19.8 Platelet Count 151 Mean Platelet Volume 7.8 Neutrophils (%) (Auto) 83.2 Lymphocytes (%) (Auto) 5.7 Monocytes (%) (Auto) 9.2 Eosinophils (%) (Auto) 1.3 Basophils (%) (Auto) 0.6 Neutrophils # (Auto) 9.4 Lymphocytes # (Auto) 0.6 Monocytes # (Auto) 1.0 Eosinophils # (Auto) 0.2 Basophils # (Auto) 0.1 CBC Comment DIFF FINAL Differential Comment Prothrombin Time 12.0 Prothromb Time International Ratio 1.2 Blood Urea Nitrogen 52 Creatinine 4.12 Random Glucose 79 Calcium Level 8.2 Magnesium Level 2.3 Sodium Level 135 Potassium Level 4.3 Chloride Level 97 Carbon Dioxide Level 27.7 Anion Gap 10 Estimat Glomerular Filtration Rate 18 Date/Time Source Procedure Growth Status 10/13/17 15:12 Blood Peripheral Aerobic Blood Culture - Preliminary NO GROWTH IN 2 DAYS Resulted 10/13/17 15:12 Blood Peripheral Anaerobic Blood Culture - Preliminary NO GROWTH IN 2 DAYS Resulted 10/09/17 12:00 Fluid Pleural Fluid Fungal Smear - Final NO FUNGAL ELEMENTS SEEN. Resulted 10/09/17 12:00 Fluid Pleural Fluid Fungal Culture Pending Resulted 10/04/17 03:49 Sputum Expectorated Sputum Gram Stain - Final Complete 10/04/17 03:49 Sputum Expectorated Sputum Sputum Culture - Final HEAVY GROWTH NORMAL RESPIRATORY RHIANNON Complete 10/03/17 21:30 Urine Random Urine Legionella Antigen - Final PRESUMPTIVE NEGATIVE FOR LEGIONELLA P... Complete 10/03/17 21:30 Urine Random Urine Streptococcus pneumoniae Antigen (M - Final PRESUMPTIVE NEGATIVE FOR STREPTOCOCCU... Complete Radiology Last 48 hours Impressions Chest X-Ray 10/13/17 0600 Signed Impressions: Service Date/Time: Friday, October 13, 2017 03:22 - CONCLUSION: 1. The bilateral small bore chest tubes remain in place with no pneumothoraces. 2. Findings consistent with congestive heart failure. This appears slightly increased. Jorge Jang MD Chest X-Ray 10/12/17599 Signed Impressions: Service Date/Time: Thursday, October 12, 2017 04:07 - CONCLUSION: 1. Bilateral small caliber chest tubes without significant pneumothorax. NG tube, ET tube and right central line unchanged. Slight worsening of right basilar airspace disease since October 11. Christian Kaur MD Cardiovascular: Regular Lungs: Clear Abdomen: Non-distended, Non-tender Extremities: No edema A/P Assessment and Plan 27 year old male with sepsis; s/p CARMEN with large mobile vegetation noted on tricuspid valve; VDRF -Tolerated CPAP trial today -If not able to extubated or fails trial extubation will be available for trach placement -Will continue to follow peripherally but please call should there be any questions Attending Note - Dr. Jimenez On 30% FIO2 currently Chest CTA The exam, history, and the medical decision-making described in the above note were completed with the assistance of the mid-level provider. I reviewed and agree with the findings presented. I attest that I had a [id number] encounter with the patient on the same day, and personally performed and documented my assessment and findings in the medical record. Leticia Zelaya/[employer] Project Manager [employer] Oct 15, 2017 15:23 Jorge Jimenez MD Oct 21, 2017 11:31
[2017-10-15] MEDS: ACETAMINOPHEN 325 MG TAB PO PRN (16:30)
[2017-10-15] MEDS: MIDAZOLAM 100 MG/100 ML INJ 100 ML IV PRN (22:33)
[2017-10-16] VITALS (20 sets, daily range): BP systolic 96–117; BP diastolic 46–70; PULSE 106–125; RESP 15–20; TEMP 99–102.1; O2SAT 94–100
[2017-10-16] MEDS: CEFTAROLINE INJ 300 MG in SODIUM CHLORIDE 0.9% INJ 100 ML IV SCH ×2 (00:32→13:00)
[2017-10-16] MEDS: PROPOFOL 1000 MG/100 ML INJ 100 ML IV PRN ×3 (00:33→20:55)
[2017-10-16] MEDS: VASOPRESSIN INJ 40 UNITS in DEXTROSE 5% IN WATER 100ML INJ 98 ML IV SCH ×4 (00:33→18:05)
[2017-10-16] MEDS: CHLORHEXIDINE GLUCONATE 2 % 1 PACK (2 CLOTHS) TOP SCH (03:25)
[2017-10-16] MEDS: ACETAMINOPHEN 1000 MG/100 ML 100 ML IV PRN (03:25)
[2017-10-16] MEDS: HEPARIN SODIUM - SQ 10,000 UNITS/ML VIAL SQ SCH ×3 (05:42→20:58)
--- NOTE | 2017-10-16 05:53 | RADRPT ---
EXAM DATE/TIME: 10/16/2017 04:06 [facility] COMPARISON: CHEST SINGLE AP, October 15, 2017, 3:32. INDICATIONS : Shortness of breath, severe sepsis. MEDICAL HISTORY : Sepsis. SURGICAL HISTORY : None. ENCOUNTER: Subsequent ACUITY: 2 weeks PAIN SCORE: Non-responsive. LOCATION: Bilateral chest FINDINGS: A single AP semierect view of the bilateral chest tubes with no pneumothorax. the chest was obtained and again demonstrates endotracheal tube in place with the tip 3 cm above the sydni. Nasogastric tub e and right subclavian central venous line remain in place. Small bore bilateral chest tubes are agai n noted with no pneumothorax. The heart size is moderately enlarged. Airspace opacity is noted in bot h lungs greatest in the lung bases with partial obscuration of the hemidiaphragms. The costophrenic a ngles remain blunted. CONCLUSION: 1. Cardiomegaly with airspace disease and apparent small effusions most characteristic of congestive heart failure. Jorge Jang MD on October 16, 2017 at 5:50 Board Certified Radiologist. This report was verified electronically.
[2017-10-16 06:51] LABS: AUTOMATED NEUTROPHIL # 9.4 TH/MM3 (1.8-7.7); BASOPHIL % 0.3 % (0.0-2.0); EOSINOPHIL # 0.3 TH/MM3 (0-0.4); EOSINOPHIL % 2.2 % (0.0-4.0); HEMATOCRIT 21.2 % (39.0-51.0); HEMOGLOBIN 7.3 GM/DL (13.0-17.0); LYMPH % 6.7 % (9.0-44.0); LYMPHOCYTE # 0.8 TH/MM3 (1.0-4.8); MEAN CELL VOLUME 86.1 FL (80.0-100.0); MEAN CORPUSCULAR HEMOGLOBIN 29.6 PG (27.0-34.0); MEAN CORPUSCULAR HGB CONC 34.4 % (32.0-36.0); MONO % 8.5 % (0.0-8.0); NEUT % 82.3 % (16.0-70.0); PLATELET COUNT 160 TH/MM3 (150-450); RED BLOOD COUNT 2.46 MIL/MM3 (4.50-5.90); RED CELL DISTRIBUTION WIDTH 20.4 % (11.6-17.2); WHITE BLOOD COUNT 11.4 TH/MM3 (4.0-11.0)
[2017-10-16 07:35] LABS: BICARBONATE 26.6 MEQ/L (21.0-32.0); CALCIUM 8.5 MG/DL (8.5-10.1); CREATININE 4.79 MG/DL (0.60-1.30)
[2017-10-16] MEDS: CHLORHEXIDINE 0.12% (ORAL KIT) 15 ML CUP MT SCH ×2 (08:00→20:56)
[2017-10-16] MEDS: RESP: ALBUTEROL 2.5 MG/IPRATROPIUM 0.5 MG NEB (PRN) INH (08:04)
[2017-10-16] MEDS: ARTIFICIAL TEARS OPTH OINT 3.5 APPLIC/3.5 GM TUBO EACH EYE SCH ×2 (09:00→20:56)
[2017-10-16] MEDS: FLUTICASONE PROPIONATE 44 MCG/ACT 10.6 GM INHALER INH SCH ×2 (09:00→20:56)
[2017-10-16] MEDS: BENEPROTEIN POWDER 1 PACK OG-TUBE SCH ×3 (09:00→18:00)
[2017-10-16] MEDS: DOCUSATE SODIUM 50 MG/SENNA 8.6 MG TAB PO SCH ×2 (09:00→20:57)
[2017-10-16] MEDS: PANTOPRAZOLE SODIUM 40 MG VIAL IV PUSH SCH ×2 (09:14→20:57)
[2017-10-16] MEDS: RIFAMPIN 150 MG CAP PO SCH ×2 (09:14→20:57)
[2017-10-16] MEDS: METHOCARBAMOL 500 MG TAB PO SCH ×4 (09:14→20:57)
[2017-10-16] MEDS: fentaNYL DRIP 250 ML IV PRN ×2 (09:15→19:23)
[2017-10-16] MEDS: SODIUM CHLORIDE 0.9% FLUSH 10 ML FLUSH IV FLUSH SCH ×2 (09:15→20:57)
[2017-10-16] MEDS: ALBUMIN 25% INJ 100 ML IV SCH ×2 (10:36→20:58)
--- NOTE | 2017-10-16 13:42 | HHI.CCPN ---
Subjective Remarks/Hospital Course 27-year-old male with remote history of IV drug abuse, states he last used heroin 2 months ago, presents for evaluation of 8 days of body aches, 7 days of diarrhea with development of subjective fever yesterday. Patient denies any nausea or vomiting. He denies any chest pain. States that he is short of breath and feels anxious. This has developed within the last 24 hours. Patient does have a cough with clear sputum. Denies any prior history of endocarditis. Denies any abdominal pain. Does report some left back pain, worse while lying flat. He is well reports generalized weakness. 10/04/17: He is critically ill, remains febrile up to 103, tachycardic diaphoretic. large tricuspid valve vegetation on bedside echo, formal echo pending. Infectious disease consulted, CT surgery consult ordered. D/W Dr. Macias and Dr. Charles. CARMEN/foam charger consult ordered. Hb 6.6 getting 2U PRBC 10/05: Remains critically ill intubated sedated. TE on yesterday TEF 40-45%. Large mobile vegetation noted on the tricuspid valve, may be 2 separate vegetations, measures overall 4cm x 1.7cm. Probable mobile density noted on the pulmonic valve. CT of the chest shows extensive septic emboli and consolidation , with loculated appearing effusion on the left base. Dr. Charles CT surgery recommends 4-6 weeks of IV antibiotics followed by repeat echo, considering surgery at that time if no improvement 10/06: Worsening CXR, with bibasilar worsening infiltrates and effusion. IR to place CT-guided left chest tube today for loculated effusion. Fluid overloaded approximately 8 kg. IV Lasix 40 mg x1. MSSA bacteremia persists 10/07: Remains intubated sedated remains critical severe volume overload with worsening renal function creatinine 3, weight up by at least [address] him on Bumex infusion and consult nephrology. Patient remains slightly oliguric 800 mL urine output in 24 hours. Chest x-ray showed bilateral infiltrates and worsening right effusion 10/08: Remains intubated heavily sedated oliguric. Continues to have positive fluid balance creatinine increased to 4.3. Hemoglobin 6.9. Currently on Bumex infusion with not adequate response. Persistently bacteremic. Bilateral infiltrates on chest x-ray with moderate right effusion 10/09: Intubated sedated remains severely fluid overloaded started on hemodialysis yesterday with 4 L removed still positive fluid balance. Hemoglobin 6.81 unit PRBC transfusion ordered along with calcium replacement. GI consulted for further workup. Large pleural effusion on right side plan for pigtail chest tube placement 10/10: Intubated sedated. Had HD with 25L removed yesterday. right chest tube placed yesterday 1.2 L of old blood tinged effusion drained-Gram stain negative. Chest x-ray shows improvement in effusion. Remains severely fluid overloaded still remains 16-17 kg up. Discussed with nephrology plan for HD with maximum fluid removal as tolerated 10/11: The patient continues on sedation intubated, opens eyes spontaneously, not follow commands. The patient underwent hemodialysis yesterday approximately 3 L off. Bilateral chest tubes no leak noted. Minimal output left chest tube. 10/12: Daily sedation vacation initiated, opens eyes spontaneously, and following commands as squeezing hands bilaterally. Movement of lower extremities. She noted to have very thick secretions. Hemodialysis performed yesterday, approximately 3 L off. Patient noted to have thick copious secretions from airway, with worsening airspace disease on the right. Gen. surgery consulted for tracheostomy. 10/13: Patient remains critically ill opens eyes and follows commands on sedation hold. Did not tolerate CPAP trial today. Cancelled gen surgery consult for trach due to possible need for valve surgery. Continues to spike fever. Plan for changing line today 10/14: Plan for removal of vas catheter today, and to be replaced on . CT of the abdomen and pelvis pending. The patient was noted to have a drop in hemoglobin to 6.9 patient being transfused 1 unit of packed red blood cells. Left chest tube TPA instilled per IR serosanguineous drainage from left chest tube. Right chest tube placed to waterseal. 10/15: Afebrile. Patient continues on CPAP this am > 3 hours currently. Patient following commands. Discussed with Gen. Surgery, Ms. Zelaya to continue CPAP trials today. Per General Surgery conversation with CTS, Dr. Charles, if patient continues to fail CPAP trials, ok'd with CTS for tracheostomy. Pt received 1 u PRBC yesterday, Hgb, stable. 10/16: Tolerated CPAP 12/5 for several hours but still remains very fluid overloaded. Vas-Cath removed 10/14/17, will place new VasCath today for HD. Attempt maximum fluid removal. Blood cultures from 10/13 remains negative, but still spiking fever T-max 102.1 Objective Vital Signs Date Time Temp Pulse Resp B/P (MAP) Pulse Ox O2 Delivery O2 Flow Rate FiO2 10/16/17 12:52 98 30 10/16/17 10:00 125 10/16/17 08:00 100.8 15 114/56 (75) Intake and Output 10/16/17 10/16/17 10/17/17 08:00 16:00 00:00 Intake Total 255 ml Output Total 170 ml Balance 85 ml Result Diagram: 10/16/17 0520 10/16/17 0520 Imaging Last Impressions Chest X-Ray 10/15/17 0600 Signed Impressions: Service Date/Time: Sunday, October 15, 2017 03:32 - CONCLUSION: Stable appearance of bilateral chest tubes and no pneumothoraces. Jorge Jang MD Chest CT 10/14/17 0000 Signed Impressions: Service Date/Time: Saturday, October 14, 2017 00:26 - CONCLUSION: 1. Bilateral scattered pulmonary nodules are again noted. Several of the right nodules are now cavitary and likely represent septic emboli given the history of IV drug abuse. 2. Interval placement of bilateral chest tubes with small pleural effusions noted. 3. Dense consolidation remains in the posterior lower lobes. Jorge Jang MD Abdomen/Pelvis CT 10/14/17 0000 Signed Impressions: Service Date/Time: Saturday, October 14, 2017 16:39 - CONCLUSION: No new or acute intra-abdominal or pelvic findings. Madi Mccartney MD Upper Extremity Ultrasound 10/13/17 0000 Signed Impressions: Service Date/Time: Friday, October 13, 2017 11:25 - CONCLUSION: Normal examination. Christian Kaur MD Abdomen X-Ray 10/10/17 0000 Signed Impressions: Service Date/Time: Tuesday, October 10, 2017 16:46 - CONCLUSION: Negative for free air or obstruction. Rahul Yarbrough MD FACR Chest Tube Insertion 10/06/17 0000 Signed Impressions: Service Date/Time: Friday, October 06, 2017 15:37 - CONCLUSION: Uncomplicated chest tube placement as above. Emerson Hui MD Last Impressions Chest X-Ray 10/14/17 0600 Signed Impressions: Service Date/Time: Saturday, October 14, 2017 05:21 - CONCLUSION: 1. Interval removal of left subclavian central venous line. 2. Bilateral chest tubes remain in place with no pneumothorax. 3. No significant change in the bilateral airspace disease. Jorge Jang MD Chest CT 10/14/17 0000 Signed Impressions: Service Date/Time: Saturday, October 14, 2017 00:26 - CONCLUSION: 1. Bilateral scattered pulmonary nodules are again noted. Several of the right nodules are now cavitary and likely represent septic emboli given the history of IV drug abuse. 2. Interval placement of bilateral chest tubes with small pleural effusions noted. 3. Dense consolidation remains in the posterior lower lobes. Jorge Jang MD Upper Extremity Ultrasound 10/13/17 0000 Signed Impressions: Service Date/Time: Friday, October 13, 2017 11:25 - CONCLUSION: Normal examination. Christian Kaur MD Abdomen X-Ray 10/10/17 0000 Signed Impressions: Service Date/Time: Tuesday, October 10, 2017 16:46 - CONCLUSION: Negative for free air or obstruction. Rahul Yarbrough MD FACR Chest Tube Insertion 10/06/17 0000 Signed Impressions: Service Date/Time: Friday, October 06, 2017 15:37 - CONCLUSION: Uncomplicated chest tube placement as above. Emerson Hui MD Abdomen/Pelvis CT 10/04/17 0000 Signed Impressions: Service Date/Time: Wednesday, October 04, 2017 21:21 - CONCLUSION: 1. Severe hepatosplenomegaly without focal lesion. 2. Free fluid in the pelvis. 3. Abnormal lower lungs and pleural effusions. 4. Prominent varices about the splenic vein. Mat Alejandra MD Last Impressions Chest X-Ray 10/11/17 0600 Signed Impressions: Service Date/Time: Wednesday, October 11, 2017 03:30 - CONCLUSION: Mild improvement in pulmonary edema with residual edema remaining. Left basilar opacity is present may be due to a combination of consolidation and or pleural effusion. All Kim MD Abdomen X-Ray 10/10/17 0000 Signed Impressions: Service Date/Time: Tuesday, October 10, 2017 16:46 - CONCLUSION: Negative for free air or obstruction. Rahul Yarbrough MD FACR Chest Tube Insertion 10/06/17 0000 Signed Impressions: Service Date/Time: Friday, October 06, 2017 15:37 - CONCLUSION: Uncomplicated chest tube placement as above. Emerson Hui MD Chest CT 10/04/17 0000 Signed Impressions: Service Date/Time: Wednesday, October 04, 2017 21:18 - CONCLUSION: Abnormal diffuse airspace opacities throughout both lungs with bilateral lower lobe consolidation and patchy focal areas of consolidation the remainder of the lungs. There is also bilateral pleural effusions with probable loculation. Mat Alejandra MD Abdomen/Pelvis CT 10/04/17 0000 Signed Impressions: Service Date/Time: Wednesday, October 04, 2017 21:21 - CONCLUSION: 1. Severe hepatosplenomegaly without focal lesion. 2. Free fluid in the pelvis. 3. Abnormal lower lungs and pleural effusions. 4. Prominent varices about the splenic vein. Mat Alejandra MD Objective Remarks GENERAL: Well-nourished, well-developed patient. Critically ill, intubated , following commands SKIN: Warm and dry. Extensive tattoos limits skin exam. Anasarca HEAD: Normocephalic. EYES: No scleral icterus. No injection or drainage. Slight periorbital edema noted. ENT: Orotracheally intubated NECK: Supple, trachea midline. No JVD or lymphadenopathy. [facility] Vascat site wihout evidence of infection. right subclavian central line in place CARDIOVASCULAR: S1-S2 normal with systolic murmur at the left sternal border. Large TV vegetation on bedside echo RESPIRATORY: Air entry is equal bilaterally, coarse rhonchi and crackles. Bilateral pig tail chest tubes in place. Right to water seal for 24 hours. GASTROINTESTINAL: Abdomen soft, non-tender, nondistended. MUSCULOSKELETAL: No cyanosis. Significant anasarca NEURO EXAM: RASS-1, Pupils are round, reactive to light. Spontaneous eye opening .Moves extremities spontaneously and follows commands when sedation is lightened A/P Assessment and Plan Neuro IVDU: - Propofol Versed and fentanyl for vent synchrony and sedation - Watch closely for withdrawal - Daily sedation medication as tolerated Resp: Acute hypoxemic respiratory failure Extensive septic emboli, consolidation of the lung Loculated left effusion, large right effusion - Continue ventilator support, CPAP daily - IR placed left chest tube 10/06 with more than 1 L exudative fluid out. - Placed right-sided pigtail chest tube at the bedside 10/09, brown tinged fluid approximately 1.1 L initial output, now output is minimum - Right chest tube with CXR in am, remove if nor PTX on 10/17/17. (Had HD catheter placed today 10/16/17) - Discussed with cardiothoracic surgery Dr. Charles, patient may need decortication, if not adequately drained - Broad-spectrum antibiotics per ID, see below - DuoNeb q6hr and PRN - Holding off tracheostomy as Dr. Charles may do valve surgery to remove vegetation if infection not clearing with ABX - Day 12 ETT- Pt continues on CPAP trials currently CVS: Large tricuspid valve vegetation, and pulmonic vegetation Severe sepsis Fluid overload - Bedside echo shows large tricuspid vegetation - Cardiology and CT surgery following - CARMEN 10/04: EF 40-45%. Large mobile vegetation on tricuspid valve, may be 2 separate vegetations, measures overall 4cm x 1.7cm. - Probable mobile density noted on the pulmonic valve. - See ID section for ABX - Dr. Charles CT surgery recommends 4-6 weeks of antibiotics and repeat echo - He may do valve surgery to remove vegetation if infection not clearing with ABX - Fluid up by >15 kg, HD started 10/08. Dr. Tapia. Continue with hemodialysis for fluid removal to facilitate ventilator weaning GI: Hepatosplenomegaly Diarrhea - IV Protonix due to persistent anemia. GI following - Tube feeds with Jevity - Hepatitis C reactive - GI consulted - patient has hepatosplenomegaly, appreciate Dr. Xiong's input : Acute kidney failure with fluid overload Dehydration on admission - Currently fluid overloaded with worsening bilateral effusion. - DCd Bumex infusion started hemodialysis 10/08, see above - Strict I's and O's, Monitor trend of creatinine - Electrolytes replacement per ICU protocol - 10/14-removed vas catheter. Replaced on 10/16-HD today ID: Tricuspid and pulmonic valve endocarditis Septic emboli to the lung Severe sepsis MSSA bacteremia - Discussed with Dr. Charles CT surgery 10/05/17 - He recommends 4-6 weeks of IV antibiotics with repeat echo, consideration for surgery if Vegetations persists - Ceftaroline, Cefazolin, Rifampin per ID Dr. Macias - Persistent MSSA bacteremia, cultures reviewed. Cultures from 10/13 negative - Check f/u Echo after 2 weeks of ABX, will discuss with - F/u HIV, Hepatitis panel. Hepatitis C reactive - 10/14-CT of the abdomen and pelvis f/u results Endo: -Electrolyte replacement per protocol Heme: Anemia requiring transfusion Thrombocytopenia - Transfuse PRBC to keep Hb>7.0 - LDH mildly elevated and haptoglobin normal, Transfusion 1u PRBC on 10/14 - Monitor CBC, Coags - Thrombocytopenia most likely from sepsis and DIC DVT GI prophylaxis - TEDs SCDs - Started Heparin 5000 U sq q12 - Protonix 40 q12 Critical Care: my billing statement This patient remains critically ill with one or more organ systems which are or may become a threat to life. I have spent in excess of 30 minutes discontinuously in the care and management of this patient. This time is exclusive of procedures, and includes, but is not limited to, evaluation of the patient, review of the medical record, discussions with family, consultants, nursing staff, or respiratory therapy, and documentation in the medical record. Patient remains critical with multiorgan failure and severe septic shock. He has huge tricuspid valve and probably pulmonic valve vegetations. His prognosis appears guarded. Renal failure worsening hemodialysis to be started , also transfuse for anemia. Respiratory failure and fluid overload persist. Jaki Barraza MD Oct 16, 2017 13:42
[2017-10-16] MEDS: VANCOMYCIN 25 MG/ML SOLN 100 ML BOTTLE PO SCH ×3 (14:24→20:59)
[2017-10-16] MEDS: ALBUMIN 25% INJ 100 ML IV PRN ×2 (14:50→14:55)
--- NOTE | 2017-10-16 14:50 | RADRPT ---
EXAM DATE/TIME: 10/16/2017 14:24 [facility] COMPARISON: CHEST SINGLE AP, October 16, 2017, 4:06. INDICATIONS : Vascath placement. MEDICAL HISTORY : Asthma. SURGICAL HISTORY : None. ENCOUNTER: Initial ACUITY: 1 week PAIN SCORE: Non-responsive. LOCATION: Bilateral chest FINDINGS: Right internal jugular catheter has been placed and the tip is projected at the cavoatrial junction. No evidence of pneumothorax. Right subclavian, endotracheal, gastric, and left chest drainage tubes are stable when compared to portable chest x-ray earlier today. There is persistent consolidation i n the left mid and lower lung and patchy opacities in the right lower lung. CONCLUSION: Vas-Cath in good position. No evidence of pneumothorax. Mat Alejandra MD on October 16, 2017 at 14:47 Board Certified Radiologist. This report was verified electronically.
--- NOTE | 2017-10-16 16:07 | HHI.NPPN ---
Subjective History of Present Illness Patient is 27-year-old male who reported to ER with body aches, 7 days of diarrhea with development fever. Past medical history of IV drug use. Patient is sedated and ventilated FiO2 at 40 %. Nephrology is consulted for ZEUS and fluid over load status. Patients creatinine is 3.02 and GFR 25ml/min. Patient is UOP at 800cc for last 24 hours. Weight has increased by over 10 kg since admission. IVF's have been stopped and lasix has been given. Patient has endocarditis with large tricuspid valve vegetation, and pulmonic vegetation. Noted to have bacteremia with hypotension with SBP in the 90's. Additional Remarks Patient intubated and sedated. Seen during HD (Venus Barrett) Objective Data Data Vital Signs Date Time Temp Pulse Resp B/P (MAP) Pulse Ox O2 Delivery O2 Flow Rate FiO2 10/16/17 15:28 100 30 10/16/17 14:00 109 10/16/17 12:52 98 30 10/16/17 12:00 99.0 109 15 96/46 (63) 99 10/16/17 12:00 109 10/16/17 12:00 50 10/16/17 10:02 97 30 10/16/17 10:00 125 10/16/17 08:00 100.8 125 15 114/56 (75) 95 10/16/17 08:00 50 10/16/17 08:00 125 10/16/17 07:23 100 30 10/16/17 06:00 118 10/16/17 04:41 94 30 10/16/17 04:00 30 10/16/17 04:00 118 10/16/17 04:00 100.9 118 20 114/70 (85) 100 10/16/17 02:00 117 10/16/17 01:03 100 30 10/16/17 00:00 102.1 111 20 117/63 (81) 100 10/16/17 00:00 111 10/16/17 00:00 30 10/15/17 22:03 100 30 10/15/17 22:00 109 10/15/17 20:00 107 10/15/17 20:00 30 10/15/17 20:00 99.1 107 18 110/56 (74) 100 10/15/17 19:20 99 30 10/15/17 18:00 113 (Venus Barrett) -: 10/16/17 0520 10/16/17 0520 Microbiology 10/16/17 Gram Stain, Received Pending 10/16/17 Sputum Culture, Received Pending (Venus Barrett) Physical Exam General Appearance: No Acute Distress (Venus Barrett) Pulmonary Resp Exam: Rhonchi, Decreased Bases, Diminished Breath Sounds, Poor Inspiratory Effort (Venus Barrett) Cardiology CV Exam: Regular (Venus Barrett) Gastrointestinal/Abdomen GI Exam: Soft, Non-Tender, Bowel Sounds Present (Venus Barrett) Integumentary Skin Exam: Clear, Warm (Venus Barrett) Extremeties Extremities Exam: Moderate Edema, Dependent Edema (Venus Barrett) Neurologic Neuro Exam: Sedated (Venus Barrett) Assessment/Plan Problem List: (1) ZEUS (acute kidney injury) ICD Codes: N17.9 - Acute kidney failure, unspecified Plan: ZEUS most likely ATN from sepsis and low blood pressure. Other differential will be ATN, Acute interstitial nephritis, and Post infectious GN,unlikely. On antibiotics ID following Creatinine 4.79 with UOP decreasing Anemia hgb of 7.3 and potassium WNL Will continue to monitor labs and urinary output HD as needed and watch for renal recovery. Seen during HD tolerating well (2) Sepsis ICD Codes: A41.9 - Sepsis, unspecified organism Status: Acute Plan: Antibiotics per ID (3) Endocarditis ICD Codes: I38 - Endocarditis, valve unspecified Status: Acute (Venus Barrett) Problem List: (1) ZEUS (acute kidney injury) ICD Codes: N17.9 - Acute kidney failure, unspecified Plan: ZEUS most likely ATN from sepsis and low blood pressure. Other differential will be ATN, Acute interstitial nephritis, and Post infectious GN,unlikely. On antibiotics ID following Creatinine 4.79 with UOP decreasing Anemia hgb of 7.3 and potassium WNL Will continue to monitor labs and urinary output HD as needed and watch for renal recovery. Seen during HD tolerating well Patient seen and examined, agree with above. (2) Sepsis ICD Codes: A41.9 - Sepsis, unspecified organism Status: Acute Plan: Antibiotics per ID (3) Endocarditis ICD Codes: I38 - Endocarditis, valve unspecified Status: Acute (Darek Tapia MD) Problem Qualifiers (1) Sepsis: Qualified Codes: A41.9 - Sepsis, unspecified organism (2) Endocarditis: Venus Barrett Oct 16, 2017 16:07 Darek Tapia MD Oct 16, 2017 21:21
[2017-10-16] MEDS: EPOETIN ALFA 10,000 UNITS/ML VIAL IV PUSH PRN (17:39)
[2017-10-16] MEDS: GENTAMICIN SULFATE 20 MG/2 ML VIAL OTHER PRN (17:40)
[2017-10-16] MEDS: HEPARIN SODIUM - IV 10,000 UNITS/10 ML VIAL PRN (17:40)
--- NOTE | 2017-10-16 18:02 | HHI.IDPN ---
Subjective Subjective Remarks is a 27 y/o CM with remote history of IV drug abuse, states he last used heroin 2 months ago, presents for evaluation of body aches, 7 days of diarrhea with development of subjective fever yesterday. Patient denies any nausea or vomiting. He denies any chest pain. This has developed within the last 24 hours. Patient does have a cough with clear sputum. Denies any prior history of endocarditis. Denies any abdominal pain. Does report some left back pain, worse while lying flat. He is well reports generalized weakness. Patient met criteria for sepsis on admission. Flu antigen negative. CXR with bilateral infiltrates. performed a bedside 2D ECHO and verbally reported a large ~4.5 cm vegetation on TV. CXR suspicious for septic emboli. Blood cultures drawn but it appears patient has received augmentin at some point and cultures may possibly be negative. At the time of my evaluation patient is in the ICU, appears in respiratory distress there is a plan for intubation and CARMEN today. UO ok. No diarrhea, no rash. Not on pressors. ID is consulted for evaluation and Mment of Severe Sepsis and Endocarditis. Overnight events reviewed. Fevers defervesced. Pt has 3 vegetations on tricuspid and pulmonic valve. No rash No diarrhea UO low. Vascath removed. CL changed. Remains on vent. FiO2 40%, PEEP 5. Secretions moderate pale yellow. Has Bilateral CTs in place. CL changed. Antibiotics Ancef IV Teflaro IV rifampin Lines Line sites with no e.o infection Past Medical History Past Medical History Asthma HCV Past Surgical History No surgical history per records. Allergies: Coded Allergies: erythromycin base (Verified Allergy, Severe, Nausea/Vomiting, 10/03/17) raspberry (Unverified Allergy, Mild, 10/03/17) Objective . Vital Signs Date Time Temp Pulse Resp B/P (MAP) Pulse Ox O2 Delivery O2 Flow Rate FiO2 10/16/17 16:00 109 10/16/17 16:00 99.0 110 15 109/59 (76) 100 10/16/17 16:00 30 10/16/17 15:28 100 30 10/16/17 14:00 109 10/16/17 12:52 98 30 10/16/17 12:00 99.0 109 15 96/46 (63) 99 2/22/18 12:00 109 10/16/17 12:00 50 10/16/17 10:02 97 30 10/16/17 10:00 125 10/16/17 08:00 100.8 125 15 114/56 (75) 95 10/16/17 08:00 50 10/16/17 08:00 125 10/16/17 07:23 100 30 10/16/17 06:00 118 10/16/17 04:41 94 30 10/16/17 04:00 30 10/16/17 04:00 118 10/16/17 04:00 100.9 118 20 114/70 (85) 100 10/16/17 02:00 117 10/16/17 01:03 100 30 10/16/17 00:00 102.1 111 20 117/63 (81) 100 10/16/17 00:00 111 10/16/17 00:00 30 10/15/17 22:03 100 30 10/15/17 22:00 109 10/15/17 20:00 107 10/15/17 20:00 30 10/15/17 20:00 99.1 107 18 110/56 (74) 100 10/15/17 19:20 99 30 10/16/17 10/16/17 10/17/17 15:00 23:00 07:00 Output Total 5000 ml Balance -5000 ml Hemodialysis 5000 ml . Laboratory Tests Test 10/15/17 04:00 10/16/17 05:20 White Blood Count 11.3 TH/MM3 11.4 TH/MM3 Red Blood Count 2.51 MIL/MM3 2.46 MIL/MM3 Hemoglobin 7.4 GM/DL 7.3 GM/DL Hematocrit 21.4 % 21.2 % Mean Corpuscular Volume 85.4 FL 86.1 FL Mean Corpuscular Hemoglobin 29.3 PG 29.6 PG Mean Corpuscular Hemoglobin Concent 34.3 % 34.4 % Red Cell Distribution Width 19.8 % 20.4 % Platelet Count 151 TH/MM3 160 TH/MM3 Mean Platelet Volume 7.8 FL 8.0 FL Neutrophils (%) (Auto) 83.2 % 82.3 % Lymphocytes (%) (Auto) 5.7 % 6.7 % Monocytes (%) (Auto) 9.2 % 8.5 % Eosinophils (%) (Auto) 1.3 % 2.2 % Basophils (%) (Auto) 0.6 % 0.3 % Neutrophils # (Auto) 9.4 TH/MM3 9.4 TH/MM3 Lymphocytes # (Auto) 0.6 TH/MM3 0.8 TH/MM3 Monocytes # (Auto) 1.0 TH/MM3 1.0 TH/MM3 Eosinophils # (Auto) 0.2 TH/MM3 0.3 TH/MM3 Basophils # (Auto) 0.1 TH/MM3 0.0 TH/MM3 CBC Comment DIFF FINAL DIFF FINAL Differential Comment Laboratory Tests Test 10/15/17 04:00 10/16/17 05:20 Blood Urea Nitrogen 52 MG/DL 66 MG/DL Creatinine 4.12 MG/DL 4.79 MG/DL Random Glucose 79 MG/DL 99 MG/DL Calcium Level 8.2 MG/DL 8.5 MG/DL Magnesium Level 2.3 MG/DL Sodium Level 135 MEQ/L 132 MEQ/L Potassium Level 4.3 MEQ/L 4.5 MEQ/L Chloride Level 97 MEQ/L 95 MEQ/L Carbon Dioxide Level 27.7 MEQ/L 26.6 MEQ/L Anion Gap 10 MEQ/L 10 MEQ/L Estimat Glomerular Filtration Rate 18 ML/MIN 15 ML/MIN Microbiology Date/Time Source Procedure Growth Status 10/16/17 12:55 Sputum Endotracheal Gram Stain Pending Received 10/16/17 12:55 Sputum Endotracheal Sputum Culture Pending Received Imaging Last Impressions Chest X-Ray 10/04/17 0000 Signed Impressions: Service Date/Time: Wednesday, October 04, 2017 16:11 - CONCLUSION: 1. ET tube in good position. 2. Significant increase in bilateral airspace opacities, now with consolidation in the lower lungs bilaterally. Mat Alejandra MD Chest CT 10/04/17 0000 Signed Impressions: Service Date/Time: Wednesday, October 04, 2017 21:18 - CONCLUSION: Abnormal diffuse airspace opacities throughout both lungs with bilateral lower lobe consolidation and patchy focal areas of consolidation the remainder of the lungs. There is also bilateral pleural effusions with probable loculation. Mat Alejandra MD Abdomen/Pelvis CT 10/04/17 0000 Signed Impressions: Service Date/Time: Wednesday, October 04, 2017 21:21 - CONCLUSION: 1. Severe hepatosplenomegaly without focal lesion. 2. Free fluid in the pelvis. 3. Abnormal lower lungs and pleural effusions. 4. Prominent varices about the splenic vein. Mat Alejandra MD Physical Exam GENERAL: This is a well-nourished, well-developed patient, in no apparent distress. SKIN: No rashes, ecchymoses or lesions. Cool and dry. Multiple tattoos. HEAD: Atraumatic. Normocephalic. No temporal or scalp tenderness. EYES: Pupils equal round and reactive. Extraocular motions intact. ENT: Intubated. NECK: Trachea midline. Supple, nontender, no meningeal signs. CARDIOVASCULAR: ? systolic murmur. RESPIRATORY: Decreased air entry bilaterally bases. GASTROINTESTINAL: Abdomen soft, distended, ? LUQ tenderness MUSCULOSKELETAL: Extremities without clubbing, cyanosis, or edema. NEUROLOGICAL: Sedated, moves extremities. Psych cooperative IV line sites with no e.o infection. Assessment & Plan Remarks Severe Sepsis present on admission MSSA endocarditis. MSSA bacteremia persistent Bilateral pleural effusions: left side appears loculated possible empyema. TV and Pulmonic valve endocarditis Pneumonia: septic emboli, aspiration pneumonia. IVDA: heroin, cocaine and methamphetamine. Acute renal failure: Sepsis, meds,contrast. - on HD Recs: Continue Teflaro IV (salvage Rx for endocarditis given persistent bacteremia and renal failure) Continue Ancef IV (will be the primary drug once bacteremia controlled) Continue Rifampin oral. Check Cdiff pcr Empiric vanco oral. Follow cultures Follow clinically d/w RN I will be off 10/17/2017 to 10/19/2017. Other ID MDs covering for me. Please check with [facility] call center. Lakia Macias MD Oct 16, 2017 18:02
[2017-10-16] MEDS: MIDAZOLAM 100 MG/100 ML INJ 100 ML IV PRN (20:55)
[2017-10-16 23:53] LABS: MITOCHONDRIAL ABS LESS THAN 20.0 U (<=20.0)
[2017-10-17] VITALS (18 sets, daily range): BP systolic 119–145; BP diastolic 55–68; PULSE 110–133; RESP 22–24; TEMP 98.7–100.5; O2SAT 92–100
[2017-10-17] MEDS: CEFTAROLINE INJ 300 MG in SODIUM CHLORIDE 0.9% INJ 100 ML IV SCH (02:17)
[2017-10-17] MEDS: CHLORHEXIDINE GLUCONATE 2 % 1 PACK (2 CLOTHS) TOP SCH (04:00)
[2017-10-17] MEDS: fentaNYL DRIP 250 ML IV PRN ×2 (05:39→21:36)
[2017-10-17] MEDS: PANTOPRAZOLE SODIUM 40 MG VIAL IV PUSH SCH ×2 (07:45→19:51)
[2017-10-17] MEDS: METHOCARBAMOL 500 MG TAB PO SCH ×4 (07:46→19:53)
[2017-10-17] MEDS: DOCUSATE SODIUM 50 MG/SENNA 8.6 MG TAB PO SCH ×2 (07:46→19:52)
[2017-10-17] MEDS: RIFAMPIN 150 MG CAP PO SCH ×2 (07:46→19:52)
[2017-10-17] MEDS: HEPARIN SODIUM - SQ 10,000 UNITS/ML VIAL SQ SCH (07:46)
[2017-10-17] MEDS: FLUTICASONE PROPIONATE 44 MCG/ACT 10.6 GM INHALER INH SCH ×2 (07:47→20:02)
[2017-10-17] MEDS: ARTIFICIAL TEARS OPTH OINT 3.5 APPLIC/3.5 GM TUBO EACH EYE SCH ×2 (07:47→19:52)
[2017-10-17] MEDS: VANCOMYCIN 25 MG/ML SOLN 100 ML BOTTLE PO SCH ×5 (07:48→19:53)
[2017-10-17] MEDS: BENEPROTEIN POWDER 1 PACK OG-TUBE SCH ×3 (07:48→18:00)
[2017-10-17] MEDS: CHLORHEXIDINE 0.12% (ORAL KIT) 15 ML CUP MT SCH ×2 (08:00→19:51)
[2017-10-17] MEDS: SODIUM CHLORIDE 0.9% FLUSH 10 ML FLUSH IV FLUSH SCH ×2 (09:00→20:06)
[2017-10-17 09:37] LABS: AUTOMATED NEUTROPHIL # 9.1 TH/MM3 (1.8-7.7); BASOPHIL # 0.1 TH/MM3 (0-0.2); EOSINOPHIL # 0.2 TH/MM3 (0-0.4); EOSINOPHIL % 1.7 % (0.0-4.0); LYMPH % 7.3 % (9.0-44.0); LYMPHOCYTE # 0.8 TH/MM3 (1.0-4.8); MEAN CORPUSCULAR HEMOGLOBIN 29.4 PG (27.0-34.0); MEAN CORPUSCULAR HGB CONC 33.8 % (32.0-36.0); PLATELET COUNT 188 TH/MM3 (150-450); RED BLOOD COUNT 2.27 MIL/MM3 (4.50-5.90); RED CELL DISTRIBUTION WIDTH 19.9 % (11.6-17.2); WHITE BLOOD COUNT 11.2 TH/MM3 (4.0-11.0)
[2017-10-17] MEDS: DEXMEDETOMIDINE INJ 200 MCG in SODIUM CHLORIDE 0.9% INJ 50 ML IV PRN ×4 (09:39→23:49)
--- NOTE | 2017-10-17 09:44 | HHI.IDPN ---
Subjective Subjective Remarks ID COVERAGE FOR DR VALDEZ is a 27 y/o CM with remote history of IV drug abuse, states he last used heroin 2 months ago, presents for evaluation of body aches, 7 days of diarrhea with development of subjective fever yesterday. Patient denies any nausea or vomiting. He denies any chest pain. This has developed within the last 24 hours. Patient does have a cough with clear sputum. Denies any prior history of endocarditis. Denies any abdominal pain. Does report some left back pain, worse while lying flat. He is well reports generalized weakness. Patient met criteria for sepsis on admission. Flu antigen negative. CXR with bilateral infiltrates. performed a bedside 2D ECHO and verbally reported a large ~4.5 cm vegetation on TV. CXR suspicious for septic emboli. Blood cultures drawn but it appears patient has received augmentin at some point and cultures may possibly be negative. At the time of my evaluation patient is in the ICU, appears in respiratory distress there is a plan for intubation and CARMEN today. UO ok. No diarrhea, no rash. Not on pressors. ID is consulted for evaluation and Mment of Severe Sepsis and Endocarditis. Notes reviewed D/W RN Self extubated this morning On nasal O2 Temps ok BP ok Last (+) BC 10/07 BC 10/10 negative, and other fup BC Rest of C/S reviewed 2 Pleural fluid C/S negative WBC 11k Had HD yesterday - took out 5L CARMEN with 2 veg in TV and possible 1 neg in PV No BM overnight, but started again this morning On the vent, for CPAP trials Has Bilateral CTs in place. CL changed. Antibiotics Ancef IV Teflaro IV - started 10/10 rifampin Current Medications Medications (Trade) Dose Ordered Sig/Willem Route Start Time Stop Time Status Last Admin (NS Flush) 2 ml UNSCH PRN IV FLUSH 10/03/17 21:15 10/15/17 20:58 (NS Flush) 2 ml BID IV FLUSH 10/04/17 09:00 10/16/17 20:57 (Tylenol) 650 mg Q6H PRN PO 10/03/17 21:15 10/15/17 16:30 (Morphine Inj) 2 mg Q2H PRN IV PUSH 10/03/17 21:10/04/17 12:54 (Ativan Inj) 1 mg Q1H PRN IV PUSH 10/03/17 21:15 10/04/17 12:14 (Zofran Inj) 4 mg Q6H PRN IV PUSH 10/03/17 21:15 (Restoril) 15 mg HS PRN PO 10/03/17 21:15 (Duoneb Neb) 1 ampule Q2HR NEB PRN INH 10/03/17 21:15 10/16/17 08:04 Miscellaneous Information 1 Q361D XX 10/03/17 21:15 (Chlorhexidine 2% Cloth) Taper DAILY@04 TOP 10/04/17 04:00 09/30/18 03:59 10/17/17 04:00 (Chlorhexidine 2% Cloth) 3 pack UNSCH PRN TOP 10/03/17 21:15 (Renita-Colace) 1 tab BID PO 10/04/17 09:00 10/16/17 20:57 (Milk Of Magnesia Liq) 30 ml Q12H PRN PO 10/03/17 21:15 10/11/17 08:39 (Senokot) 17.2 mg Q12H PRN PO 10/03/17 21:15 (Dulcolax Supp) 10 mg DAILY PRN RECTAL 10/03/17 21:15 10/11/17 17:08 (Lactulose Liq) 30 ml DAILY PRN PO 10/03/17 21:15 10/11/17 17:08 (Flovent Hfa 44 Mcg Inh) 2 puff BID INH 10/04/17 09:00 10/16/17 20:56 (Robaxin) 500 mg QID PO 10/04/17 09:00 10/17/17 07:46 Acetaminophen 100 ml @ 400 mls/hr Q6H PRN IV 10/04/17 12:00 10/16/17 03:25 (Peridex 0.12% Liq) 15 ml BID@08,20 MT 10/04/17 20:00 10/16/17 20:56 Propofol 100 ml @ 3 mls/hr TITRATE PRN IV 10/04/17 14:45 10/16/17 20:55 Midazolam HCl 100 ml @ 2 mls/hr TITRATE PRN IV 10/04/17 14:45 10/16/17 20:55 Fentanyl Citrate 250 ml @ 5 mls/hr TITRATE PRN IV 10/04/17 14:45 10/17/17 05:39 (Beneprotein Powder) 2 pack TID OG-TUBE 10/05/17 13:00 10/15/17 18:59 Vasopressin 40 units/Dextrose 100 ml @ 6 mls/hr [id number] IV 10/06/17 09:00 Albumin Human 100 ml @ 60 mls/hr Q12H IV 10/07/17 10:00 10/16/17 20:58 (Rifampin) 300 mg Q12HR PO 10/08/17 11:30 10/17/17 07:46 Sodium Chloride 1,000 ml @ 0 mls/hr Q0M PRN OTHER 10/08/17 10:33 (Heparin Inj) 8,000 units UNSCH PRN IV FLUSH 10/08/17 10:45 Sodium Chloride 1,000 ml @ 200 mls/hr Q5H PRN IV 10/08/17 11:15 10/11/17 08:57 Sodium Chloride 1,000 ml @ 0 mls/hr Q0M PRN OTHER 10/08/17 11:15 (Mannitol Inj) 12.5 gm UNSCH PRN IV 10/08/17 11:15 Albumin Human 100 ml @ 60 mls/hr UNSCH PRN IV 10/08/17 11:30 10/16/17 14:55 (NS Flush) 5 ml UNSCH PRN IV FLUSH 10/08/17 11:15 (Heparin Inj) UNSCH PRN .XX 10/08/17 11:15 10/16/17 17:40 (Gentamicin Inj) 20 mg UNSCH PRN OTHER 10/08/17 11:15 10/16/17 17:40 (Zofran Inj) 4 mg UNSCH PRN IV PUSH 10/08/17 11:15 (Tylenol) 650 mg UNSCH PRN PO 10/08/17 11:15 (Benadryl) 25 mg UNSCH PRN PO 10/08/17 11:15 (Nitrostat Sl) 0.4 mg UNSCH PRN SL 10/08/17 11:30 (Catapres) 0.1 mg UNSCH PRN PO 10/08/17 11:30 (Epogen Inj) 10,000 units UNSCH PRN IV PUSH 10/08/17 11:30 10/16/17 17:39 (Gelfoam 12 Mm/7 Mm Top) 1 foam UNSCH PRN TOP 10/08/17 11:30 (Protonix Inj) 40 mg Q12HR IV PUSH 10/09/17 12:45 10/17/17 07:45 Ceftaroline Fosamil 300 mg/ Sodium Chloride 100 ml @ 100 mls/hr Q12H IV 10/10/17 01:00 10/17/17 02:17 (Lacrilube Opht Oint) 1 applic Q12HR EACH EYE 10/11/17 14:30 10/17/17 07:47 Cefazolin Sodium 1000 mg/Sodium Chloride 100 ml @ 200 mls/hr Q12H IV 10/12/17 05:00 10/17/17 05:39 (Vancomycin 25 Mg/ml Liq) 125 mg QID PO 10/16/17 13:00 10/17/17 07:48 (Heparin Inj) 5,000 units Q12HR SQ 10/16/17 21:00 10/17/17 07:46 Dexmedetomidine HCl 200 mcg/ Sodium Chloride 52 ml @ 5.45 mls/hr TITRATE PRN IV 10/17/17 09:30 Lines Line sites with no e.o infection Past Medical History Asthma HCV Past Surgical History No surgical history per records. Allergies: Coded Allergies: erythromycin base (Verified Allergy, Severe, Nausea/Vomiting, 10/03/17) raspberry (Unverified Allergy, Mild, 10/03/17) Objective . Vital Signs Date Time Temp Pulse Resp B/P (MAP) Pulse Ox O2 Delivery O2 Flow Rate FiO2 10/17/17 09:05 92 Nasal Cannula 6 10/17/17 09:05 92 Nasal Cannula 6.00 10/17/17 07:45 35 10/17/17 07:45 100 35 10/17/17 06:00 122 10/17/17 04:00 30 10/17/17 04:00 98.7 124 129/59 (82) 98 10/17/17 04:00 124 10/17/17 03:18 96 30 10/17/17 02:00 120 10/17/17 00:00 30 10/17/17 00:00 121 10/17/17 00:00 99.2 121 133/65 (87) 100 2/22/18 23:20 100 30 10/16/17 22:00 111 10/16/17 20:00 107 10/16/17 20:00 30 10/16/17 20:00 100.2 107 111/59 (76) 100 10/16/17 19:15 100 30 10/16/17 18:00 106 10/16/17 16:00 109 10/16/17 16:00 99.0 110 15 109/59 (76) 100 10/16/17 16:00 30 10/16/17 15:28 100 30 10/16/17 14:00 109 10/16/17 12:52 98 30 10/16/17 12:00 99.0 109 15 96/46 (63) 99 10/16/17 12:00 109 10/16/17 12:00 50 10/16/17 10:02 97 30 10/16/17 10:00 125 . Laboratory Tests Test 10/16/17 05:20 10/17/17 08:55 White Blood Count 11.4 TH/MM3 Red Blood Count 2.46 MIL/MM3 Hemoglobin 7.3 GM/DL Hematocrit 21.2 % Mean Corpuscular Volume 86.1 FL Mean Corpuscular Hemoglobin 29.6 PG Mean Corpuscular Hemoglobin Concent 34.4 % Red Cell Distribution Width 20.4 % Platelet Count 160 TH/MM3 Mean Platelet Volume 8.0 FL Neutrophils (%) (Auto) 82.3 % Lymphocytes (%) (Auto) 6.7 % Monocytes (%) (Auto) 8.5 % Eosinophils (%) (Auto) 2.2 % Basophils (%) (Auto) 0.3 % Neutrophils # (Auto) 9.4 TH/MM3 Lymphocytes # (Auto) 0.8 TH/MM3 Monocytes # (Auto) 1.0 TH/MM3 Eosinophils # (Auto) 0.3 TH/MM3 Basophils # (Auto) 0.0 TH/MM3 CBC Comment DIFF FINAL Differential Comment Laboratory Tests Test 10/16/17 05:20 10/17/17 08:55 Blood Urea Nitrogen 66 MG/DL Creatinine 4.79 MG/DL Random Glucose 99 MG/DL Calcium Level 8.5 MG/DL Sodium Level 132 MEQ/L Potassium Level 4.5 MEQ/L Chloride Level 95 MEQ/L Carbon Dioxide Level 26.6 MEQ/L Anion Gap 10 MEQ/L Estimat Glomerular Filtration Rate 15 ML/MIN Microbiology Date/Time Source Procedure Growth Status 10/16/17 12:55 Sputum Endotracheal Gram Stain - Final Resulted 10/16/17 12:55 Sputum Endotracheal Sputum Culture Pending Resulted Imaging Last Impressions Chest X-Ray 10/16/17 0600 Signed Impressions: Service Date/Time: September 04:06 - CONCLUSION: 1. Cardiomegaly with airspace disease and apparent small effusions most characteristic of congestive heart failure. Jorge Jang MD Chest CT 10/14/17 0000 Signed Impressions: Service Date/Time: Saturday, October 14, 2017 00:26 - CONCLUSION: 1. Bilateral scattered pulmonary nodules are again noted. Several of the right nodules are now cavitary and likely represent septic emboli given the history of IV drug abuse. 2. Interval placement of bilateral chest tubes with small pleural effusions noted. 3. Dense consolidation remains in the posterior lower lobes. Jorge Jang MD Abdomen/Pelvis CT 10/14/17 0000 Signed Impressions: Service Date/Time: Saturday, October 14, 2017 16:39 - CONCLUSION: No new or acute intra-abdominal or pelvic findings. Madi Mccartney MD Upper Extremity Ultrasound 10/13/17 0000 Signed Impressions: Service Date/Time: Friday, October 13, 2017 11:25 - CONCLUSION: Normal examination. Christian Kaur MD Abdomen X-Ray 10/10/17 0000 Signed Impressions: Service Date/Time: Tuesday, October 10, 2017 16:46 - CONCLUSION: Negative for free air or obstruction. Rahul Yarbrough MD FACR Chest Tube Insertion 10/06/17 0000 Signed Impressions: Service Date/Time: Friday, October 06, 2017 15:37 - CONCLUSION: Uncomplicated chest tube placement as above. Emerson Hui MD Physical Exam GENERAL: Awake, and following commands, on nasal O2, NAD SKIN: No rashes. Cool and dry. Multiple tattoos. HEAD: Atraumatic. Normocephalic. No temporal or scalp tenderness. EYES: Pupils equal round and reactive. Extraocular motions intact. No petechia, no hemorrhage ENT: Moist oral mucosa, no nasal drainage NECK: Trachea midline. Supple, nontender, no meningeal signs. CARDIOVASCULAR: Has systolic murmur iat base of the heart RESPIRATORY: Decreased air entry bilaterally bases. [address] GASTROINTESTINAL: Abdomen soft, not tender, (+) BS MUSCULOSKELETAL: Extremities without clubbing, cyanosis. Mild pedal edema. NO embolic lesion seen. NEUROLOGICAL: Awake, follows commands Psych cooperative IV line sites with no e.o infection. 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 Pneumonia: septic emboli, aspiration pneumonia. Respiratory failure, self extubated 10/17 IVDA: heroin, cocaine and methamphetamine. Acute renal failure: Sepsis, meds,contrast. - on HD Recs: Stop Teflaro IV - repeat BC negative Continue Ancef IV (will be the primary drug once bacteremia controlled) Continue Rifampin oral. Check Cdiff pcr Continue empiric vanco oral. Follow cultures Monitor progress Monitor respiratory status D/W Chelsy Gay MD Oct 17, 2017 09:44
[2017-10-17 09:45] LABS: HEMATOCRIT 19.7 % (39.0-51.0); HEMOGLOBIN 6.7 GM/DL (13.0-17.0)
[2017-10-17 10:01] LABS: ALBUMIN 2.9 GM/DL (3.4-5.0); AST (GOT) 31 U/L (15-37); BICARBONATE 26.1 MEQ/L (21.0-32.0); BLOOD UREA NITROGEN 53 MG/DL (7-18); CALCIUM 8.5 MG/DL (8.5-10.1); CHLORIDE 96 MEQ/L (98-107); CREATININE 4.39 MG/DL (0.60-1.30); GLOMERULAR FILTRATION RATE 16 ML/MIN (>89); GLUCOSE,RANDOM 71 MG/DL (74-106); SODIUM (NA) 133 MEQ/L (136-145)
[2017-10-17 10:04] LABS: ALKALINE PHOSPHATASE 93 U/L (45-117); ALT (GPT) LESS THAN 6 U/L (12-78); TOTAL BILIRUBIN ADULT 1.3 MG/DL (0.2-1.0); TOTAL PROTEIN 8.1 GM/DL (6.4-8.2)
--- NOTE | 2017-10-17 10:04 | HHI.CCPN ---
Subjective Remarks/Hospital Course 27-year-old male with remote history of IV drug abuse, states he last used heroin 2 months ago, presents for evaluation of 8 days of body aches, 7 days of diarrhea with development of subjective fever yesterday. Patient denies any nausea or vomiting. He denies any chest pain. States that he is short of breath and feels anxious. This has developed within the last 24 hours. Patient does have a cough with clear sputum. Denies any prior history of endocarditis. Denies any abdominal pain. Does report some left back pain, worse while lying flat. He is well reports generalized weakness. 10/04/17: He is critically ill, remains febrile up to 103, tachycardic diaphoretic. large tricuspid valve vegetation on bedside echo, formal echo pending. Infectious disease consulted, CT surgery consult ordered. D/W Dr. Macias and Dr. Charles. CARMEN/charging manipulator consult ordered. Hb 6.6 getting 2U PRBC 10/05: Remains critically ill intubated sedated. TE on yesterday TEF 40-45%. Large mobile vegetation noted on the tricuspid valve, may be 2 separate vegetations, measures overall 4cm x 1.7cm. Probable mobile density noted on the pulmonic valve. CT of the chest shows extensive septic emboli and consolidation , with loculated appearing effusion on the left base. Dr. Charles CT surgery recommends 4-6 weeks of IV antibiotics followed by repeat echo, considering surgery at that time if no improvement 10/06: Worsening CXR, with bibasilar worsening infiltrates and effusion. IR to place CT-guided left chest tube today for loculated effusion. Fluid overloaded approximately 8 kg. IV Lasix 40 mg x1. MSSA bacteremia persists 10/07: Remains intubated sedated remains critical severe volume overload with worsening renal function creatinine 3, weight up by at least [address] him on Bumex infusion and consult nephrology. Patient remains slightly oliguric 800 mL urine output in 24 hours. Chest x-ray showed bilateral infiltrates and worsening right effusion 10/08: Remains intubated heavily sedated oliguric. Continues to have positive fluid balance creatinine increased to 4.3. Hemoglobin 6.9. Currently on Bumex infusion with not adequate response. Persistently bacteremic. Bilateral infiltrates on chest x-ray with moderate right effusion 10/09: Intubated sedated remains severely fluid overloaded started on hemodialysis yesterday with 4 L removed still positive fluid balance. Hemoglobin 6.81 unit PRBC transfusion ordered along with calcium replacement. GI consulted for further workup. Large pleural effusion on right side plan for pigtail chest tube placement 10/10: Intubated sedated. Had HD with 25L removed yesterday. right chest tube placed yesterday 1.2 L of old blood tinged effusion drained-Gram stain negative. Chest x-ray shows improvement in effusion. Remains severely fluid overloaded still remains 16-17 kg up. Discussed with nephrology plan for HD with maximum fluid removal as tolerated 10/11: The patient continues on sedation intubated, opens eyes spontaneously, not follow commands. The patient underwent hemodialysis yesterday approximately 3 L off. Bilateral chest tubes no leak noted. Minimal output left chest tube. 10/12: Daily sedation vacation initiated, opens eyes spontaneously, and following commands as squeezing hands bilaterally. Movement of lower extremities. She noted to have very thick secretions. Hemodialysis performed yesterday, approximately 3 L off. Patient noted to have thick copious secretions from airway, with worsening airspace disease on the right. Gen. surgery consulted for tracheostomy. 10/13: Patient remains critically ill opens eyes and follows commands on sedation hold. Did not tolerate CPAP trial today. Cancelled gen surgery consult for trach due to possible need for valve surgery. Continues to spike fever. Plan for changing line today 10/14: Plan for removal of vas catheter today, and to be replaced on . CT of the abdomen and pelvis pending. The patient was noted to have a drop in hemoglobin to 6.9 patient being transfused 1 unit of packed red blood cells. Left chest tube TPA instilled per IR serosanguineous drainage from left chest tube. Right chest tube placed to waterseal. 10/15: Afebrile. Patient continues on CPAP this am > 3 hours currently. Patient following commands. Discussed with Gen. Surgery, Ms. Zelaya to continue CPAP trials today. Per General Surgery conversation with CTS, Dr. Charles, if patient continues to fail CPAP trials, ok'd with CTS for tracheostomy. Pt received 1 u PRBC yesterday, Hgb, stable. 10/16: Tolerated CPAP 12/5 for several hours but still remains very fluid overloaded. Vas-Cath removed 10/14/17, will place new VasCath today for HD. Attempt maximum fluid removal. Blood cultures from 10/13 remains negative, but still spiking fever T-max 102.1 10/17: Patient tolerating CPAP better today at 10/5. Fever trending down. Hemoglobin dropped to 6.7. Plan was to do hemodialysis with maximum fluid removal and then extubated but patient ended up self extubating. I have discussed with Dr. Tapia who will dialyze today Objective Vital Signs Date Time Temp Pulse Resp B/P (MAP) Pulse Ox O2 Delivery O2 Flow Rate FiO2 10/17/17 09:05 92 Nasal Cannula 6 10/17/17 07:45 35 10/17/17 06:00 122 10/17/17 04:00 98.7 129/59 (82) 10/16/17 16:00 15 Intake and Output 10/17/17 10/17/17 10/18/17 08:00 16:00 00:00 Intake Total 300 ml Output Total 345 ml Balance -45 ml Result Diagram: 10/17/17 0855 10/16/17 0520 Imaging Last Impressions Chest X-Ray 10/15/17 0600 Signed Impressions: Service Date/Time: Sunday, October 15, 2017 03:32 - CONCLUSION: Stable appearance of bilateral chest tubes and no pneumothoraces. Jorge Jang MD Chest CT 10/14/17 0000 Signed Impressions: Service Date/Time: Saturday, October 14, 2017 00:26 - CONCLUSION: 1. Bilateral scattered pulmonary nodules are again noted. Several of the right nodules are now cavitary and likely represent septic emboli given the history of IV drug abuse. 2. Interval placement of bilateral chest tubes with small pleural effusions noted. 3. Dense consolidation remains in the posterior lower lobes. Jorge Jang MD Abdomen/Pelvis CT 10/14/17 0000 Signed Impressions: Service Date/Time: Saturday, October 14, 2017 16:39 - CONCLUSION: No new or acute intra-abdominal or pelvic findings. Madi Mccartney MD Upper Extremity Ultrasound 10/13/17 0000 Signed Impressions: Service Date/Time: Friday, October 13, 2017 11:25 - CONCLUSION: Normal examination. Christian Kaur MD Abdomen X-Ray 10/10/17 0000 Signed Impressions: Service Date/Time: Tuesday, October 10, 2017 16:46 - CONCLUSION: Negative for free air or obstruction. Rahul Yarbrough MD FACR Chest Tube Insertion 10/06/17 0000 Signed Impressions: Service Date/Time: Friday, October 06, 2017 15:37 - CONCLUSION: Uncomplicated chest tube placement as above. Emerson Hui MD Last Impressions Chest X-Ray 10/14/17 0600 Signed Impressions: Service Date/Time: Saturday, October 14, 2017 05:21 - CONCLUSION: 1. Interval removal of left subclavian central venous line. 2. Bilateral chest tubes remain in place with no pneumothorax. 3. No significant change in the bilateral airspace disease. Jorge Jang MD Chest CT 10/14/17 0000 Signed Impressions: Service Date/Time: Saturday, October 14, 2017 00:26 - CONCLUSION: 1. Bilateral scattered pulmonary nodules are again noted. Several of the right nodules are now cavitary and likely represent septic emboli given the history of IV drug abuse. 2. Interval placement of bilateral chest tubes with small pleural effusions noted. 3. Dense consolidation remains in the posterior lower lobes. Jorge Jang MD Upper Extremity Ultrasound 10/13/17 0000 Signed Impressions: Service Date/Time: Friday, October 13, 2017 11:25 - CONCLUSION: Normal examination. Christian Kaur MD Abdomen X-Ray 10/10/17 0000 Signed Impressions: Service Date/Time: Tuesday, October 10, 2017 16:46 - CONCLUSION: Negative for free air or obstruction. Rahul Yarbrough MD FACR Chest Tube Insertion 10/06/17 0000 Signed Impressions: Service Date/Time: Friday, October 06, 2017 15:37 - CONCLUSION: Uncomplicated chest tube placement as above. Emerson Hui MD Abdomen/Pelvis CT 10/04/17 0000 Signed Impressions: Service Date/Time: Wednesday, October 04, 2017 21:21 - CONCLUSION: 1. Severe hepatosplenomegaly without focal lesion. 2. Free fluid in the pelvis. 3. Abnormal lower lungs and pleural effusions. 4. Prominent varices about the splenic vein. Mat Alejandra MD Last Impressions Chest X-Ray 10/11/17 0600 Signed Impressions: Service Date/Time: Wednesday, October 11, 2017 03:30 - CONCLUSION: Mild improvement in pulmonary edema with residual edema remaining. Left basilar opacity is present may be due to a combination of consolidation and or pleural effusion. All Kim MD Abdomen X-Ray 10/10/17 0000 Signed Impressions: Service Date/Time: Tuesday, October 10, 2017 16:46 - CONCLUSION: Negative for free air or obstruction. Rahul Yarbrough MD FACR Chest Tube Insertion 10/06/17 0000 Signed Impressions: Service Date/Time: Friday, October 06, 2017 15:37 - CONCLUSION: Uncomplicated chest tube placement as above. Emerson Hui MD Chest CT 10/04/17 0000 Signed Impressions: Service Date/Time: Wednesday, October 04, 2017 21:18 - CONCLUSION: Abnormal diffuse airspace opacities throughout both lungs with bilateral lower lobe consolidation and patchy focal areas of consolidation the remainder of the lungs. There is also bilateral pleural effusions with probable loculation. Mat Alejandra MD Abdomen/Pelvis CT 10/04/17 0000 Signed Impressions: Service Date/Time: Wednesday, October 04, 2017 21:21 - CONCLUSION: 1. Severe hepatosplenomegaly without focal lesion. 2. Free fluid in the pelvis. 3. Abnormal lower lungs and pleural effusions. 4. Prominent varices about the splenic vein. Mat Alejandra MD Objective Remarks GENERAL: Well-nourished, well-developed patient. Critically ill, intubated , following commands SKIN: Warm and dry. Extensive tattoos limits skin exam. Anasarca HEAD: Normocephalic. EYES: No scleral icterus. No injection or drainage. Slight periorbital edema noted. ENT: Orotracheally intubated NECK: Supple, trachea midline. No JVD or lymphadenopathy. New RIJ Vascath in place. right subclavian central line in place CARDIOVASCULAR: S1-S2 normal with systolic murmur at the left sternal border. Large TV vegetation on bedside echo RESPIRATORY: Air entry is equal bilaterally, coarse rhonchi and crackles. Bilateral pig tail chest tubes in place. Right to water seal for 24 hours. GASTROINTESTINAL: Abdomen soft, non-tender, nondistended. MUSCULOSKELETAL: No cyanosis. Significant anasarca NEURO EXAM: RASS-1, Pupils are round, reactive to light. Spontaneous eye opening .Moves extremities spontaneously and follows commands when sedation is lightened A/P Assessment and Plan Neuro IVDU: - Precedex and fentanyl post extubation, as needed - Watch closely for withdrawal - Daily sedation medication as tolerated Resp: Acute hypoxemic respiratory failure Extensive septic emboli, consolidation of the lung Loculated left effusion, large right effusion - Tolerated CPAP better today, self extubated prior to planned extubation - IR placed left chest tube 10/06 with more than 1 L exudative fluid out. - Placed right-sided pigtail chest tube at the bedside 10/09, brown tinged fluid approximately 1.1 L initial output, now output is minimum - Right chest tube -remove if no PTX on 10/17/17. - Discussed with cardiothoracic surgery Dr. Charles, patient may need decortication, if not adequately drained - Broad-spectrum antibiotics per ID, see below - DuoNeb q6hr and PRN - Day 13 ETT- Self extubated prior to planned extubation. Tolerating for now CVS: Large tricuspid valve vegetation, and pulmonic vegetation Severe sepsis Fluid overload - Bedside echo shows large tricuspid vegetation. repeat echo after 3-4 weeks ABX - Cardiology and CT surgery has followed - CARMEN 10/04: EF 40-45%. Large mobile vegetation on tricuspid valve, may be 2 separate vegetations, measures overall 4cm x 1.7cm. - Probable mobile density noted on the pulmonic valve. - See ID section for ABX - Dr. Charles CT surgery recommends 4-6 weeks of antibiotics and repeat echo - He may do valve surgery to remove vegetation if infection not clearing with ABX - Fluid up by >15 kg, HD started 10/08. Dr. Tapia. Continue with hemodialysis for fluid removal GI: Hepatosplenomegaly Diarrhea - IV Protonix due to persistent anemia. GI following - Hold tube feeds for extubation - Hepatitis C reactive - GI consulted - patient has hepatosplenomegaly, appreciate GI input - Endoscopy is planned only if there is obvious GI bleed : Acute kidney failure with fluid overload Dehydration on admission - Started hemodialysis 10/08, see above - Strict I's and O's, Monitor trend of creatinine - Electrolytes replacement per ICU protocol - 10/14-removed vas catheter. Replaced on 10/16 - HD with 5L removed 10/16. Repeat HD today ID: Tricuspid and pulmonic valve endocarditis Septic emboli to the lung Severe sepsis MSSA bacteremia - Discussed with Dr. Charles CT surgery 10/05/17 - He recommends 4-6 weeks of IV antibiotics with repeat echo, consideration for surgery if Vegetations persists - Ceftaroline, Cefazolin, Rifampin per ID Dr. Macias - Check Cdiff pcr, Empiric vanco oral per ID - Persistent MSSA bacteremia, cultures reviewed. Cultures from 10/13 negative - Check f/u Echo after 4 weeks of ABX, will discuss with - F/u HIV, Hepatitis panel. Hepatitis C reactive - 10/14-CT of the abdomen and pelvis f/u results Endo: -Electrolyte replacement per protocol Heme: Anemia requiring transfusion Thrombocytopenia - Transfuse PRBC to keep Hb>7.0, give 1U today - LDH mildly elevated and haptoglobin normal, Transfusion 1u PRBC on 10/14 - Monitor CBC, Coags - Thrombocytopenia most likely from sepsis and DIC DVT GI prophylaxis - TEDs SCDs - Started Heparin 5000 U sq q12-DCD 10/17 due to persistent anemia requiring transfusion - Protonix 40 q12 Critical Care: my billing statement This patient remains critically ill with one or more organ systems which are or may become a threat to life. I have spent in excess of 30 minutes discontinuously in the care and management of this patient. This time is exclusive of procedures, and includes, but is not limited to, evaluation of the patient, review of the medical record, discussions with family, consultants, nursing staff, or respiratory therapy, and documentation in the medical record. Patient remains critical with multiorgan failure and severe septic shock. He has huge tricuspid valve and probably pulmonic valve vegetations. His prognosis appears guarded. Renal failure worsening hemodialysis to be started , also transfuse for anemia. Respiratory failure and fluid overload persist. HD today. Self extubated, tolerating well Jaki Barraza MD Oct 17, 2017 10:04
[2017-10-17] MEDS: VASOPRESSIN INJ 40 UNITS in DEXTROSE 5% IN WATER 100ML INJ 98 ML IV SCH ×2 (11:09)
[2017-10-17] MEDS: ALBUMIN 25% INJ 100 ML IV SCH ×2 (11:20→20:06)
--- NOTE | 2017-10-17 11:30 | RADRPT ---
EXAM DATE/TIME: 10/17/2017 10:12 [facility] COMPARISON: CT THORAX W/O CONTRAST, October 14, 2017, 0:26. CHEST SINGLE AP, October 16, 2017, 14:24. INDICATIONS : Respiratory disease. MEDICAL HISTORY : Sepsis. pneumothorax. asthma. SURGICAL HISTORY : None. ENCOUNTER: Subsequent ACUITY: 2 weeks PAIN SCORE: Non-responsive. LOCATION: Bilateral chest FINDINGS: The exam demonstrates bilateral small bore chest tubes. These appear stable in position compared to p revious. The heart is enlarged. There are multiple nodular areas and areas of infiltrate seen throughout both lungs. The overall appearance of the pulmonary parenchyma has mildly improved compared to the previou s examination. The right jugular line and right subclavian line are in satisfactory position. The visualized bony structures are grossly intact. CONCLUSION: 1. Support equipment in satisfactory position. 2. The patient has been extubated since previous exam. 3. Improving appearance of pulmonary parenchyma Mendoza Yarbrough MD on October 17, 2017 at 11:27 Board Certified Radiologist. This report was verified electronically.
--- NOTE | 2017-10-17 11:47 | HHI.NPPN ---
Subjective History of Present Illness Patient is 27-year-old male who reported to ER with body aches, 7 days of diarrhea with development fever. Past medical history of IV drug use. Patient is sedated and ventilated FiO2 at 40 %. Nephrology is consulted for ZEUS and fluid over load status. Patients creatinine is 3.02 and GFR 25ml/min. Patient is UOP at 800cc for last 24 hours. Weight has increased by over 10 kg since admission. IVF's have been stopped and lasix has been given. Patient has endocarditis with large tricuspid valve vegetation, and pulmonic vegetation. Noted to have bacteremia with hypotension with SBP in the 90's. Additional Remarks Patient self extubated on O2 6 liters. Copious secretions. Plan for dialysis today (Venus Barrett) Review of Systems Respiratory Lungs: SOB, Sputum (Venus Barrett) Objective Data Data Vital Signs Date Time Temp Pulse Resp B/P (MAP) Pulse Ox O2 Delivery O2 Flow Rate FiO2 10/17/17 10:00 128 10/17/17 09:05 92 Nasal Cannula 6 10/17/17 09:05 92 Nasal Cannula 6.00 10/17/17 08:00 122 10/17/17 08:00 99.8 125 129/60 (83) 98 10/17/17 08:00 30 10/17/17 08:00 125 10/17/17 08:00 98.9 10/17/17 07:45 35 10/17/17 07:45 100 35 10/17/17 06:00 122 10/17/17 04:00 30 10/17/17 04:00 98.7 124 129/59 (82) 98 10/17/17 04:00 124 10/17/17 03:18 96 30 10/17/17 02:00 120 10/17/17 00:00 30 10/17/17 00:00 121 10/17/17 00:00 99.2 121 133/65 (87) 100 10/16/17 23:20 100 30 10/16/17 22:00 111 10/16/17 20:00 107 10/16/17 20:00 30 10/16/17 20:00 100.2 107 111/59 (76) 100 10/16/17 19:15 100 30 2/22/18 18:00 106 10/16/17 16:00 109 10/16/17 16:00 99.0 110 15 109/59 (76) 100 10/16/17 16:00 30 10/16/17 15:28 100 30 10/16/17 14:00 109 10/16/17 12:52 98 30 10/16/17 12:00 99.0 109 15 96/46 (63) 99 10/16/17 12:00 109 10/16/17 12:00 50 (Venus Barrett) -: 10/17/17 0855 10/17/17 0855 Microbiology 10/16/17 Gram Stain - Final, Resulted 10/16/17 Sputum Culture, Resulted Pending (Venus Barrett) Physical Exam General Appearance: No Acute Distress, Comfortable (Darek Tapia MD) Pulmonary Resp Exam: Rhonchi, Decreased Bases, Diminished Breath Sounds, Poor Inspiratory Effort (Venus Barrett) Cardiology CV Exam: Tachycardia (Venus Barrett) Gastrointestinal/Abdomen GI Exam: Soft, Non-Tender, Bowel Sounds Present (Venus Barrett) Integumentary Skin Exam: Clear, Warm (Venus Barrett) Extremeties Extremities Exam: Moderate Edema, Dependent Edema (Venus Barrett) Neurologic Neuro Exam: Sedated (Venus Barrett) Neuro Exam: Awake (Darek Tpaia MD) Assessment/Plan Problem List: (1) ZEUS (acute kidney injury) ICD Codes: N17.9 - Acute kidney failure, unspecified Plan: ZEUS most likely ATN from sepsis and low blood pressure. Other differential will be ATN, Acute interstitial nephritis, and Post infectious GN,unlikely. On antibiotics ID following Creatinine slightly improved at 4.39 has decreased UOP Potassium WNL HGB at 6.7 plan to transfuse during dialysis Will continue to monitor labs and urinary output HD as needed and watch for renal recovery. HD scheduled again today (2) Sepsis ICD Codes: A41.9 - Sepsis, unspecified organism Status: Acute Plan: Antibiotics per ID (3) Endocarditis ICD Codes: I38 - Endocarditis, valve unspecified Status: Acute (Venus Barrett) Problem List: (1) ZEUS (acute kidney injury) ICD Codes: N17.9 - Acute kidney failure, unspecified Plan: ZEUS most likely ATN from sepsis and low blood pressure. Other differential will be ATN, Acute interstitial nephritis, and Post infectious GN,unlikely. On antibiotics ID following Creatinine slightly improved at 4.39 has decreased UOP Potassium WNL HGB at 6.7 plan to transfuse during dialysis Will continue to monitor labs and urinary output HD as needed and watch for renal recovery. HD scheduled again today. Patient seen and examined, agree with above. Patient has HD again , mainly for fluid removed. HD again in AM. (2) Sepsis ICD Codes: A41.9 - Sepsis, unspecified organism Status: Acute Plan: Antibiotics per ID (3) Endocarditis ICD Codes: I38 - Endocarditis, valve unspecified Status: Acute (Darek Tapia MD) Problem Qualifiers (1) Sepsis: Qualified Codes: A41.9 - Sepsis, unspecified organism (2) Endocarditis: Venus Barrett Oct 17, 2017 11:46 Darek Tapia MD Oct 17, 2017 22:55
[2017-10-17] MEDS: LACTOBACILLUS ACIDOPHILUS TAB PO SCH ×2 (13:00→18:00)
[2017-10-17] MEDS: SODIUM CHLOR 0.9% 1000 ML INJ 1,000 ML OTHER PRN (14:00)
[2017-10-17] MEDS: HEPARIN SODIUM - IV 10,000 UNITS/10 ML VIAL PRN (14:00)
[2017-10-17] MEDS: GENTAMICIN SULFATE 20 MG/2 ML VIAL OTHER PRN (14:00)
[2017-10-17] MEDS: RESP: ALBUTEROL 2.5 MG/IPRATROPIUM 0.5 MG NEB (SCH) NEB ×2 (16:00→20:35)
[2017-10-17] MEDS: ACETAMINOPHEN 1000 MG/100 ML 100 ML IV PRN (19:51)
[2017-10-18] VITALS (14 sets, daily range): BP systolic 118–139; BP diastolic 61–73; PULSE 102–130; RESP 20–24; TEMP 97.8–101; O2SAT 93–99
[2017-10-18] MEDS: RESP: ALBUTEROL 2.5 MG/IPRATROPIUM 0.5 MG NEB (SCH) NEB ×3 (03:29→21:42)
[2017-10-18] MEDS: DEXMEDETOMIDINE INJ 200 MCG in SODIUM CHLORIDE 0.9% INJ 50 ML IV PRN (03:48)
[2017-10-18] MEDS: CHLORHEXIDINE GLUCONATE 2 % 1 PACK (2 CLOTHS) TOP SCH (04:00)
[2017-10-18 06:01] LABS: AUTOMATED NEUTROPHIL # 9.3 TH/MM3 (1.8-7.7); BASOPHIL # 0.1 TH/MM3 (0-0.2); BASOPHIL % 0.8 % (0.0-2.0); EOSINOPHIL # 0.2 TH/MM3 (0-0.4); EOSINOPHIL % 1.7 % (0.0-4.0); HEMATOCRIT 22.2 % (39.0-51.0); HEMOGLOBIN 7.5 GM/DL (13.0-17.0); LYMPH % 7.2 % (9.0-44.0); LYMPHOCYTE # 0.8 TH/MM3 (1.0-4.8); MEAN CELL VOLUME 86.1 FL (80.0-100.0); MEAN CORPUSCULAR HEMOGLOBIN 29.2 PG (27.0-34.0); MEAN CORPUSCULAR HGB CONC 33.9 % (32.0-36.0); MEAN PLATELET VOLUME 7.9 FL (7.0-11.0); MONO % 7.8 % (0.0-8.0); MONOCYTE # 0.9 TH/MM3 (0-0.9); NEUT % 82.5 % (16.0-70.0); PLATELET COUNT 226 TH/MM3 (150-450); RED BLOOD COUNT 2.58 MIL/MM3 (4.50-5.90); RED CELL DISTRIBUTION WIDTH 19.6 % (11.6-17.2); WHITE BLOOD COUNT 11.3 TH/MM3 (4.0-11.0)
[2017-10-18 06:07] LABS: ALBUMIN 2.8 GM/DL (3.4-5.0); AST (GOT) 36 U/L (15-37); BICARBONATE 26.6 MEQ/L (21.0-32.0); BLOOD UREA NITROGEN 51 MG/DL (7-18); CALCIUM 8.8 MG/DL (8.5-10.1); CHLORIDE 99 MEQ/L (98-107); CREATININE 4.14 MG/DL (0.60-1.30); GLOMERULAR FILTRATION RATE 18 ML/MIN (>89); GLUCOSE,RANDOM 82 MG/DL (74-106); MAGNESIUM 2.3 MG/DL (1.5-2.5); SODIUM (NA) 136 MEQ/L (136-145)
--- NOTE | 2017-10-18 06:07 | RADRPT ---
EXAM DATE/TIME: 10/18/2017 04:05 [facility] COMPARISON: CHEST SINGLE AP, October 17, 2017, 10:12. INDICATIONS : Shortness of breath, possible pulmonary disease. MEDICAL HISTORY : Sepsis. SURGICAL HISTORY : None. ENCOUNTER: Subsequent ACUITY: 2 weeks PAIN SCORE: Non-responsive. LOCATION: Bilateral chest FINDINGS: Patchy air space opacities are again seen in both mid and lower lungs and with probable small pleural effusions. No pneumothorax demonstrated. Left chest tube remains in place. Mild cardiomegaly is stable. Right internal jugular cordis and right subclavian central venous catheters with tips in the right at rium are again noted. CONCLUSION: No significant change as above. Left chest tube remains in place. No pneumothorax. Madi Aguilar MD on October 18, 2017 at 6:05 Board Certified Radiologist. This report was verified electronically.
[2017-10-18 06:11] LABS: ALKALINE PHOSPHATASE 85 U/L (45-117); ALT (GPT) LESS THAN 6 U/L (12-78); TOTAL BILIRUBIN ADULT 1.1 MG/DL (0.2-1.0); TOTAL PROTEIN 8.3 GM/DL (6.4-8.2)
[2017-10-18] MEDS: CHLORHEXIDINE 0.12% (ORAL KIT) 15 ML CUP MT SCH ×2 (08:32→20:00)
[2017-10-18] MEDS: PANTOPRAZOLE SODIUM 40 MG VIAL IV PUSH SCH ×2 (08:32→20:42)
[2017-10-18] MEDS: SODIUM CHLORIDE 0.9% FLUSH 10 ML FLUSH IV FLUSH SCH ×2 (08:32→20:42)
[2017-10-18] MEDS: BENEPROTEIN POWDER 1 PACK OG-TUBE SCH ×3 (09:00→18:11)
[2017-10-18] MEDS: METHOCARBAMOL 500 MG TAB PO SCH ×4 (09:00→20:41)
[2017-10-18] MEDS: VANCOMYCIN 25 MG/ML SOLN 100 ML BOTTLE PO SCH ×4 (09:00→20:44)
[2017-10-18] MEDS: DOCUSATE SODIUM 50 MG/SENNA 8.6 MG TAB PO SCH ×2 (09:00→20:42)
[2017-10-18] MEDS: FLUTICASONE PROPIONATE 44 MCG/ACT 10.6 GM INHALER INH SCH ×2 (09:00→20:43)
[2017-10-18] MEDS: LACTOBACILLUS ACIDOPHILUS TAB PO SCH ×3 (09:00→18:10)
[2017-10-18] MEDS: RIFAMPIN 150 MG CAP PO SCH ×2 (09:00→20:41)
--- NOTE | 2017-10-18 11:22 | HHI.CCPN ---
Subjective Remarks/Hospital Course 27-year-old male with remote history of IV drug abuse, states he last used heroin 2 months ago, presents for evaluation of 8 days of body aches, 7 days of diarrhea with development of subjective fever yesterday. Patient denies any nausea or vomiting. He denies any chest pain. States that he is short of breath and feels anxious. This has developed within the last 24 hours. Patient does have a cough with clear sputum. Denies any prior history of endocarditis. Denies any abdominal pain. Does report some left back pain, worse while lying flat. He is well reports generalized weakness. 10/04/17: He is critically ill, remains febrile up to 103, tachycardic diaphoretic. large tricuspid valve vegetation on bedside echo, formal echo pending. Infectious disease consulted, CT surgery consult ordered. D/W Dr. Macias and Dr. Charles. 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 Hb 6.6 getting 2U PRBC 10/05: Remains critically ill intubated sedated. TE on yesterday TEF 40-45%. Large mobile vegetation noted on the tricuspid valve, may be 2 separate vegetations, measures overall 4cm x 1.7cm. Probable mobile density noted on the pulmonic valve. CT of the chest shows extensive septic emboli and consolidation , with loculated appearing effusion on the left base. Dr. Charles CT surgery recommends 4-6 weeks of IV antibiotics followed by repeat echo, considering surgery at that time if no improvement 10/06: Worsening CXR, with bibasilar worsening infiltrates and effusion. IR to place CT-guided left chest tube today for loculated effusion. Fluid overloaded approximately 8 kg. IV Lasix 40 mg x1. MSSA bacteremia persists 10/07: Remains intubated sedated remains critical severe volume overload with worsening renal function creatinine 3, weight up by at least [address] him on Bumex infusion and consult nephrology. Patient remains slightly oliguric 800 mL urine output in 24 hours. Chest x-ray showed bilateral infiltrates and worsening right effusion 10/08: Remains intubated heavily sedated oliguric. Continues to have positive fluid balance creatinine increased to 4.3. Hemoglobin 6.9. Currently on Bumex infusion with not adequate response. Persistently bacteremic. Bilateral infiltrates on chest x-ray with moderate right effusion 10/09: Intubated sedated remains severely fluid overloaded started on hemodialysis yesterday with 4 L removed still positive fluid balance. Hemoglobin 6.81 unit PRBC transfusion ordered along with calcium replacement. GI consulted for further workup. Large pleural effusion on right side plan for pigtail chest tube placement 10/10: Intubated sedated. Had HD with 25L removed yesterday. right chest tube placed yesterday 1.2 L of old blood tinged effusion drained-Gram stain negative. Chest x-ray shows improvement in effusion. Remains severely fluid overloaded still remains 16-17 kg up. Discussed with nephrology plan for HD with maximum fluid removal as tolerated 10/11: The patient continues on sedation intubated, opens eyes spontaneously, not follow commands. The patient underwent hemodialysis yesterday approximately 3 L off. Bilateral chest tubes no leak noted. Minimal output left chest tube. 10/12: Daily sedation vacation initiated, opens eyes spontaneously, and following commands as squeezing hands bilaterally. Movement of lower extremities. She noted to have very thick secretions. Hemodialysis performed yesterday, approximately 3 L off. Patient noted to have thick copious secretions from airway, with worsening airspace disease on the right. Gen. surgery consulted for tracheostomy. 10/13: Patient remains critically ill opens eyes and follows commands on sedation hold. Did not tolerate CPAP trial today. Cancelled gen surgery consult for trach due to possible need for valve surgery. Continues to spike fever. Plan for changing line today 10/14: Plan for removal of vas catheter today, and to be replaced on . CT of the abdomen and pelvis pending. The patient was noted to have a drop in hemoglobin to 6.9 patient being transfused 1 unit of packed red blood cells. Left chest tube TPA instilled per IR serosanguineous drainage from left chest tube. Right chest tube placed to waterseal. 10/15: Afebrile. Patient continues on CPAP this am > 3 hours currently. Patient following commands. Discussed with Gen. Surgery, Ms. Zelaya to continue CPAP trials today. Per General Surgery conversation with CTS, Dr. Charles, if patient continues to fail CPAP trials, ok'd with CTS for tracheostomy. Pt received 1 u PRBC yesterday, Hgb, stable. 10/16: Tolerated CPAP 12/5 for several hours but still remains very fluid overloaded. Vas-Cath removed 10/14/17, will place new VasCath today for HD. Attempt maximum fluid removal. Blood cultures from 10/13 remains negative, but still spiking fever T-max 102.1 10/17: Patient tolerating CPAP better today at 10/5. Fever trending down. Hemoglobin dropped to 6.7. Plan was to do hemodialysis with maximum fluid removal and then extubated but patient ended up self extubating. I have discussed with Dr. Tapia who will dialyze today 10/18: Extubated yesterday tolerating well respiratory acosta. Getting hemodialysis today with target removal of 3.5 L. Urine output is 400 mL in 24 hours. Bilateral chest tube output minimal. Hemoglobin remaining stable. Bedside echo shows large essentially unchanged TV vegetation Objective Vital Signs Date Time Temp Pulse Resp B/P (MAP) Pulse Ox O2 Delivery O2 Flow Rate FiO2 10/18/17 09:36 94 Nasal Cannula 4.00 10/18/17 08:00 101.0 121 22 125/62 (83) 10/18/17 04:00 30 Intake and Output 10/18/17 10/18/17 10/19/17 08:00 16:00 00:00 Intake Total 226.5 ml Output Total 340 ml Balance -113.5 ml Result Diagram: 10/18/17 0440 10/18/17 0440 Imaging Last Impressions Chest X-Ray 10/15/17 0600 Signed Impressions: Service Date/Time: Sunday, October 15, 2017 03:32 - CONCLUSION: Stable appearance of bilateral chest tubes and no pneumothoraces. Jorge Jang MD Chest CT 10/14/17 0000 Signed Impressions: Service Date/Time: Saturday, October 14, 2017 00:26 - CONCLUSION: 1. Bilateral scattered pulmonary nodules are again noted. Several of the right nodules are now cavitary and likely represent septic emboli given the history of IV drug abuse. 2. Interval placement of bilateral chest tubes with small pleural effusions noted. 3. Dense consolidation remains in the posterior lower lobes. Jorge Jang MD Abdomen/Pelvis CT 10/14/17 0000 Signed Impressions: Service Date/Time: Saturday, October 14, 2017 16:39 - CONCLUSION: No new or acute intra-abdominal or pelvic findings. Madi Mccartney MD Upper Extremity Ultrasound 10/13/17 0000 Signed Impressions: Service Date/Time: Friday, October 13, 2017 11:25 - CONCLUSION: Normal examination. Christian Kaur MD Abdomen X-Ray 10/10/17 0000 Signed Impressions: Service Date/Time: Tuesday, October 10, 2017 16:46 - CONCLUSION: Negative for free air or obstruction. Rahul Yarbrough MD FACR Chest Tube Insertion 10/06/17 0000 Signed Impressions: Service Date/Time: Friday, October 06, 2017 15:37 - CONCLUSION: Uncomplicated chest tube placement as above. Emerson Hui MD Last Impressions Chest X-Ray 10/14/17 0600 Signed Impressions: Service Date/Time: Saturday, October 14, 2017 05:21 - CONCLUSION: 1. Interval removal of left subclavian central venous line. 2. Bilateral chest tubes remain in place with no pneumothorax. 3. No significant change in the bilateral airspace disease. Jorge Jang MD Chest CT 10/14/17 0000 Signed Impressions: Service Date/Time: Saturday, October 14, 2017 00:26 - CONCLUSION: 1. Bilateral scattered pulmonary nodules are again noted. Several of the right nodules are now cavitary and likely represent septic emboli given the history of IV drug abuse. 2. Interval placement of bilateral chest tubes with small pleural effusions noted. 3. Dense consolidation remains in the posterior lower lobes. Jorge Jang MD Upper Extremity Ultrasound 10/13/17 0000 Signed Impressions: Service Date/Time: Friday, October 13, 2017 11:25 - CONCLUSION: Normal examination. Christian Kaur MD Abdomen X-Ray 10/10/17 0000 Signed Impressions: Service Date/Time: Tuesday, October 10, 2017 16:46 - CONCLUSION: Negative for free air or obstruction. Rahul Yarbrough MD FACR Chest Tube Insertion 10/06/17 0000 Signed Impressions: Service Date/Time: Friday, October 06, 2017 15:37 - CONCLUSION: Uncomplicated chest tube placement as above. Emerson Hui MD Abdomen/Pelvis CT 10/04/17 0000 Signed Impressions: Service Date/Time: Wednesday, October 04, 2017 21:21 - CONCLUSION: 1. Severe hepatosplenomegaly without focal lesion. 2. Free fluid in the pelvis. 3. Abnormal lower lungs and pleural effusions. 4. Prominent varices about the splenic vein. Mat Alejandra MD Last Impressions Chest X-Ray 10/11/17 0600 Signed Impressions: Service Date/Time: Wednesday, October 11, 2017 03:30 - CONCLUSION: Mild improvement in pulmonary edema with residual edema remaining. Left basilar opacity is present may be due to a combination of consolidation and or pleural effusion. All Kim MD Abdomen X-Ray 10/10/17 0000 Signed Impressions: Service Date/Time: Tuesday, October 10, 2017 16:46 - CONCLUSION: Negative for free air or obstruction. Rahul Yarbrough MD FACR Chest Tube Insertion 10/06/17 0000 Signed Impressions: Service Date/Time: Friday, October 06, 2017 15:37 - CONCLUSION: Uncomplicated chest tube placement as above. Emerson Hui MD Chest CT 10/04/17 0000 Signed Impressions: Service Date/Time: Wednesday, October 04, 2017 21:18 - CONCLUSION: Abnormal diffuse airspace opacities throughout both lungs with bilateral lower lobe consolidation and patchy focal areas of consolidation the remainder of the lungs. There is also bilateral pleural effusions with probable loculation. Mat Alejandra MD Abdomen/Pelvis CT 10/04/17 0000 Signed Impressions: Service Date/Time: Wednesday, October 04, 2017 21:21 - CONCLUSION: 1. Severe hepatosplenomegaly without focal lesion. 2. Free fluid in the pelvis. 3. Abnormal lower lungs and pleural effusions. 4. Prominent varices about the splenic vein. Mat Alejandra MD Objective Remarks GENERAL: Well-nourished, well-developed patient. Lying in bed not in acute distress SKIN: Warm and dry. Extensive tattoos limits skin exam. Anasarca HEAD: Normocephalic. EYES: No scleral icterus. No injection or drainage. Slight periorbital edema noted. ENT: Oral cavity moist NECK: Supple, trachea midline. No JVD or lymphadenopathy. New RIJ Vascath in place. right subclavian central line in place CARDIOVASCULAR: S1-S2 normal with systolic murmur at the left sternal border. Large TV vegetation on bedside echo, on admission and 10/18/17 RESPIRATORY: Air entry is equal bilaterally, coarse rhonchi and crackles. Bilateral pig tail chest tubes in place. Minimal output GASTROINTESTINAL: Abdomen soft, non-tender, nondistended. MUSCULOSKELETAL: No cyanosis. Significant anasarca NEURO EXAM: Alert awake oriented, Pupils are round, reactive to light. Spontaneous eye opening. Moves extremities spontaneously and follows commands when sedation is lightened A/P Assessment and Plan Neuro IVDU: - DC Precedex and fentanyl gtt - Start Fentanyl patch, with PRN IV Fentanyl. - Use Ativan PRN - Watch closely for withdrawal - Daily sedation medication as tolerated Resp: Acute hypoxemic respiratory failure, improving Extensive septic emboli, consolidation of the lung Loculated left effusion, large right effusion - Extubated 10/17 (Self extubated while on CPAP prior to planned extubation) - IR placed left chest tube 10/06 with more than 1 L exudative fluid out. - Dr. Barraza placed right-sided pigtail chest tube at the bedside 10/09, brown tinged fluid approximately 1.1 L initial output, now output is minimum - Remove right chest tube today 10/18/17. - Discussed with cardiothoracic surgery Dr. Charles, patient may need decortication, if not adequately drained - Broad-spectrum antibiotics per ID, see below - DuoNeb q12hr and PRN - EzPAP, IS CVS: Large tricuspid valve vegetation, and pulmonic vegetation Severe sepsis Fluid overload - Bedside echo shows large tricuspid vegetation. repeat bedside echo today 10/18 similar size - Cardiology and CT surgery has followed - CARMEN 10/04: EF 40-45%. Large mobile vegetation on tricuspid valve, may be 2 separate vegetations, measures overall 4cm x 1.7cm. - Probable mobile density noted on the pulmonic valve. - See ID section for ABX - Dr. Charles CT surgery recommends 4-6 weeks of antibiotics and repeat echo - He may do valve surgery to remove vegetation if infection not clearing with ABX - Fluid up by >15 kg, HD started 10/08. Dr. Tapia. Continue with hemodialysis for fluid removal GI: Hepatosplenomegaly Diarrhea - IV Protonix due to persistent anemia. GI following - Swallow eval and diet per speech recommendation - Hepatitis C reactive - GI consulted - patient has hepatosplenomegaly, appreciate GI input - Endoscopy is planned only if there is obvious GI bleed : Acute kidney failure with fluid overload Dehydration on admission - Started hemodialysis 10/08, see above - Strict I's and O's, Monitor trend of creatinine - Electrolytes replacement per ICU protocol - 10/14-removed vas catheter. Replaced on 10/16 - HD with 3.5L removal 10/18 ID: Tricuspid and pulmonic valve endocarditis Septic emboli to the lung Severe sepsis MSSA bacteremia - Discussed with Dr. Charles CT surgery 10/05/17 - He recommends 4-6 weeks of IV antibiotics with repeat echo, consideration for surgery if Vegetations persists - Bedside Echo shows persistent large veg today - Ceftaroline, Cefazolin, Rifampin per ID Dr. Macias - Check Cdiff pcr, Empiric vanco oral per ID - Persistent MSSA bacteremia, cultures reviewed. Cultures from 10/13 negative, but still spiking fever - Check f/u formal Echo after 4-6 weeks of ABX, will discuss with , Dr. Osorio and Dr. Roberts - F/u HIV, Hepatitis panel. Hepatitis C reactive - 10/14-CT of the abdomen and pelvis f/u results Endo: -Electrolyte replacement per protocol Heme: Anemia requiring transfusion Thrombocytopenia - Transfuse PRBC to keep Hb>7.0, give 1U today - LDH mildly elevated and haptoglobin normal, Transfusion 1u PRBC on 10/14, 10/17 - Monitor CBC, Coags - Thrombocytopenia most likely from sepsis and DIC DVT GI prophylaxis - TEDs SCDs - Started Heparin 5000 U sq q12-DCD 10/17 due to persistent anemia requiring transfusion - Protonix 40 q12 Critical Care: my billing statement This patient remains critically ill with one or more organ systems which are or may become a threat to life. I have spent in excess of 30 minutes discontinuously in the care and management of this patient. This time is exclusive of procedures, and includes, but is not limited to, evaluation of the patient, review of the medical record, discussions with family, consultants, nursing staff, or respiratory therapy, and documentation in the medical record. Patient remains critical with multiorgan failure and severe septic shock. He has huge tricuspid valve and probably pulmonic valve vegetations. His prognosis appears guarded. Renal failure worsening hemodialysis to be started , also transfuse for anemia. Respiratory failure and fluid overload persist. HD today. extubated 10/18, tolerating well Jaki Barraza MD Oct 18, 2017 11:22
[2017-10-18] MEDS: SODIUM CHLORIDE 0.9% FLUSH 10 ML FLUSH IV FLUSH PRN (11:26)
[2017-10-18] MEDS: HEPARIN SODIUM - IV 10,000 UNITS/10 ML VIAL PRN (11:26)
[2017-10-18] MEDS: GENTAMICIN SULFATE 20 MG/2 ML VIAL OTHER PRN (11:27)
[2017-10-18] MEDS: EPOETIN ALFA 10,000 UNITS/ML VIAL IV PUSH PRN (11:27)
--- NOTE | 2017-10-18 11:37 | HHI.NPPN ---
Subjective History of Present Illness Patient is 27-year-old male who reported to ER with body aches, 7 days of diarrhea with development fever. Past medical history of IV drug use. Patient is sedated and ventilated FiO2 at 40 %. Nephrology is consulted for ZEUS and fluid over load status. Patients creatinine is 3.02 and GFR 25ml/min. Patient is UOP at 800cc for last 24 hours. Weight has increased by over 10 kg since admission. IVF's have been stopped and lasix has been given. Patient has endocarditis with large tricuspid valve vegetation, and pulmonic vegetation. Noted to have bacteremia with hypotension with SBP in the 90's. Additional Remarks Extubated, seen on dialysis today. Review of Systems Respiratory Lungs: SOB, Sputum Objective Data Data Vital Signs Date Time Temp Pulse Resp B/P (MAP) Pulse Ox O2 Delivery O2 Flow Rate FiO2 10/18/17 09:36 94 Nasal Cannula 4.00 10/18/17 08:00 101.0 121 22 125/62 (83) 96 10/18/17 06:00 115 10/18/17 04:00 30 10/18/17 04:00 104 10/18/17 04:00 99.2 104 24 129/61 (83) 97 10/18/17 02:00 102 10/18/17 00:00 98.6 108 133/62 (85) 99 10/18/17 00:00 30 10/18/17 00:00 108 10/17/17 22:00 110 10/17/17 20:35 100 Nasal Cannula 4.00 10/17/17 20:00 100.5 118 128/64 (85) 96 10/17/17 20:00 30 10/17/17 20:00 118 10/17/17 18:00 124 10/17/17 16:00 123 10/17/17 16:00 30 10/17/17 16:00 99.0 125 22 145/68 (93) 99 10/17/17 14:00 123 10/17/17 13:47 100.5 125 24 119/55 99 10/17/17 12:26 133 10/17/17 12:26 100.1 133 128/64 (85) 98 10/17/17 12:26 30 10/17/17 12:00 128 -: 10/18/17 0440 10/18/17 0440 Physical Exam General Appearance: No Acute Distress, Comfortable Pulmonary Resp Exam: Rhonchi, Decreased Bases, Diminished Breath Sounds, Poor Inspiratory Effort Cardiology CV Exam: Tachycardia Gastrointestinal/Abdomen GI Exam: Soft, Non-Tender, Bowel Sounds Present Integumentary Skin Exam: Clear, Warm Extremeties Extremities Exam: Moderate Edema, Dependent Edema Neurologic Neuro Exam: Awake Assessment/Plan Problem List: (1) ZEUS (acute kidney injury) ICD Codes: N17.9 - Acute kidney failure, unspecified Plan: ZEUS most likely ATN from sepsis and low blood pressure. Other differential will be ATN, Acute interstitial nephritis, and Post infectious GN,unlikely. On antibiotics ID following 400 cc UOP HD today - goal 3.5L UF today (3.5L UF yesterday) Will plan to hold HD tomorrow and do next HD Friday, if stable. Will continue to monitor labs and urinary output Monitor for any renal recovery (2) Sepsis ICD Codes: A41.9 - Sepsis, unspecified organism Status: Acute Plan: Antibiotics per ID (3) Endocarditis ICD Codes: I38 - Endocarditis, valve unspecified Status: Acute Problem Qualifiers (1) Sepsis: Qualified Codes: A41.9 - Sepsis, unspecified organism (2) Endocarditis: Mendoza Calvo MD Oct 18, 2017 11:37
--- NOTE | 2017-10-18 12:51 | HHI.IDPN ---
Note Infectious Disease Note ID COVERAGE FOR DR VALDEZ is a 27 y/o CM with remote history of IV drug abuse, states he last used heroin 2 months ago, presents for evaluation of body aches, 7 days of diarrhea with development of subjective fever yesterday. Patient denies any nausea or vomiting. He denies any chest pain. This has developed within the last 24 hours. Patient does have a cough with clear sputum. Denies any prior history of endocarditis. Denies any abdominal pain. Does report some left back pain, worse while lying flat. He is well reports generalized weakness. Patient met criteria for sepsis on admission. Flu antigen negative. CXR with bilateral infiltrates. performed a bedside 2D ECHO and verbally reported a large ~4.5 cm vegetation on TV. CXR suspicious for septic emboli. Blood cultures drawn but it appears patient has received augmentin at some point and cultures may possibly be negative. At the time of my evaluation patient is in the ICU, appears in respiratory distress there is a plan for intubation and CARMEN today. UO ok. No diarrhea, no rash. Not on pressors. ID is consulted for evaluation and Mment of Severe Sepsis and Endocarditis. Notes reviewed D/W RN Awake and alert. Speaks with weak voice. On nasal O2 Spiked temp to 101. BP ok Last (+) BC 10/07 BC 10/10 negative. Rest of C/S reviewed 2 Pleural fluid C/S negative Gets hemodialysis.. Stool c. dif negative. CARMEN with 2 veg in TV and possible 1 neg in PV No BM overnight, but started again this morning On the vent, for CPAP trials Has Bilateral CTs in place. Antibiotics Ancef IV Rifampin Lines Line sites with no e.o infection Past Medical History Asthma HCV Past Surgical History No surgical history per records. Allergies: Coded Allergies: erythromycin base (Verified Allergy, Severe, Nausea/Vomiting, 10/03/17) raspberry (Unverified Allergy, Mild, 10/03/17) OBJECTIVE: Vital Signs Date Time Temp Pulse Resp B/P (MAP) Pulse Ox O2 Delivery O2 Flow Rate FiO2 10/18/17 12:00 124 10/18/17 10:00 123 10/18/17 09:36 94 Nasal Cannula 4.00 10/18/17 08:00 101.0 121 22 125/62 (83) 96 10/18/17 08:00 121 10/18/17 06:00 115 10/18/17 04:00 30 10/18/17 04:00 104 10/18/17 04:00 99.2 104 24 129/61 (83) 97 10/18/17 02:00 102 10/18/17 00:00 98.6 108 133/62 (85) 99 10/18/17 00:00 30 10/18/17 00:00 108 10/17/17 22:00 110 10/17/17 20:35 100 Nasal Cannula 4.00 10/17/17 20:00 100.5 118 128/64 (85) 96 10/17/17 20:00 30 10/17/17 20:00 118 10/17/17 18:00 124 10/17/17 16:00 123 10/17/17 16:00 30 10/17/17 16:00 99.0 125 22 145/68 (93) 99 10/17/17 14:00 123 10/17/17 13:47 100.5 125 24 119/55 99 Laboratory Tests Test 10/18/17 04:40 White Blood Count 11.3 TH/MM3 Red Blood Count 2.58 MIL/MM3 Hemoglobin 7.5 GM/DL Hematocrit 22.2 % Mean Corpuscular Volume 86.1 FL Mean Corpuscular Hemoglobin 29.2 PG Mean Corpuscular Hemoglobin Concent 33.9 % Red Cell Distribution Width 19.6 % Platelet Count 226 TH/MM3 Mean Platelet Volume 7.9 FL Neutrophils (%) (Auto) 82.5 % Lymphocytes (%) (Auto) 7.2 % Monocytes (%) (Auto) 7.8 % Eosinophils (%) (Auto) 1.7 % Basophils (%) (Auto) 0.8 % Neutrophils # (Auto) 9.3 TH/MM3 Lymphocytes # (Auto) 0.8 TH/MM3 Monocytes # (Auto) 0.9 TH/MM3 Eosinophils # (Auto) 0.2 TH/MM3 Basophils # (Auto) 0.1 TH/MM3 CBC Comment DIFF FINAL Differential Comment Blood Urea Nitrogen 51 MG/DL Creatinine 4.14 MG/DL Random Glucose 82 MG/DL Total Protein 8.3 GM/DL Albumin 2.8 GM/DL Calcium Level 8.8 MG/DL Magnesium Level 2.3 MG/DL Alkaline Phosphatase 85 U/L Aspartate Amino Transf (AST/SGOT) 36 U/L Alanine Aminotransferase (ALT/SGPT) LESS THAN 6 U/L Total Bilirubin 1.1 MG/DL Sodium Level 136 MEQ/L Potassium Level 3.7 MEQ/L Chloride Level 99 MEQ/L Carbon Dioxide Level 26.6 MEQ/L Anion Gap 10 MEQ/L Estimat Glomerular Filtration Rate 18 ML/MIN Imaging Chest X-Ray 10/16/17 0600 Signed Impressions: Service Date/Time: September 04:06 - CONCLUSION: 1. Cardiomegaly with airspace disease and apparent small effusions most characteristic of congestive heart failure. Jorge Jang MD Chest CT 10/14/17 0000 Signed Impressions: Service Date/Time: Saturday, October 14, 2017 00:26 - CONCLUSION: 1. Bilateral scattered pulmonary nodules are again noted. Several of the right nodules are now cavitary and likely represent septic emboli given the history of IV drug abuse. 2. Interval placement of bilateral chest tubes with small pleural effusions noted. 3. Dense consolidation remains in the posterior lower lobes. Jorge Jang MD Abdomen/Pelvis CT 10/14/17 0000 Signed Impressions: Service Date/Time: Saturday, October 14, 2017 16:39 - CONCLUSION: No new or acute intra-abdominal or pelvic findings. Madi Mccartney MD Upper Extremity Ultrasound 10/13/17 0000 Signed Impressions: Service Date/Time: Friday, October 13, 2017 11:25 - CONCLUSION: Normal examination. Christian Kaur MD Abdomen X-Ray 10/10/17 0000 Signed Impressions: Service Date/Time: Tuesday, October 10, 2017 16:46 - CONCLUSION: Negative for free air or obstruction. Rahul Yarbrough MD FACR Chest Tube Insertion 10/06/17 0000 Signed Impressions: Service Date/Time: Friday, October 06, 2017 15:37 - CONCLUSION: Uncomplicated chest tube placement as above. Emerson Hui MD GENERAL: Patient is in no acute distress. HEENT: EOMI, EBENEZER. No icterus. NECK: Supple. LUNGS: Clear decreased breath sounds. CARDIAC: Regular rate and rhythm. Loud COLIN URSB and LSB. ABDOMEN: Soft, non tender. EXTREMITIES: No CCE. SKIN: No rash. Multiple tatoos. NEURO: Non focal. PSYCH: Calm and cooperative. IMPRESSION: Severe Sepsis present on admission MSSA endocarditis. - TV and Pulmonic valve endocarditis MSSA bacteremia high grade, seem to be under control Bilateral pleural effusions: left side appears loculated possible empyema. Pneumonia: septic emboli, aspiration pneumonia. Respiratory failure, self extubated 10/17 IVDA: heroin, cocaine and methamphetamine. Acute renal failure: Sepsis, meds,contrast. - on HD Fever. Recs: Continue Ancef IV (will be the primary drug once bacteremia controlled) Continue Rifampin oral. Stop vanco oral. Follow cultures. Agree with central line change. Monitor progress Monitor respiratory status Jay Baugh MD Oct 18, 2017 12:51
[2017-10-18] MEDS: ARTIFICIAL TEARS OPTH OINT 3.5 APPLIC/3.5 GM TUBO EACH EYE SCH ×2 (12:55→20:43)
[2017-10-18] MEDS: METOPROLOL TARTRATE 25 MG TAB PO SCH ×2 (12:56→20:41)
[2017-10-18] MEDS: fentaNYL 100 MCG/HR PATCH T-DERMAL SCH (12:57)
[2017-10-18] MEDS: ALBUMIN 25% INJ 100 ML IV SCH ×2 (13:09→20:43)
[2017-10-18] MEDS: RESP: ALBUTEROL 2.5 MG/IPRATROPIUM 0.5 MG NEB (PRN) INH (15:32)
[2017-10-18] MEDS: VASOPRESSIN INJ 40 UNITS in DEXTROSE 5% IN WATER 100ML INJ 98 ML IV SCH ×2 (21:00)
[2017-10-19] VITALS (14 sets, daily range): BP systolic 120–128; BP diastolic 69–74; PULSE 109–128; RESP 18–24; TEMP 98.6–99.4; O2SAT 98–100
[2017-10-19] MEDS: CHLORHEXIDINE GLUCONATE 2 % 1 PACK (2 CLOTHS) TOP SCH (03:31)
[2017-10-19 05:50] LABS: AUTOMATED NEUTROPHIL # 9.2 TH/MM3 (1.8-7.7); BASOPHIL # 0.2 TH/MM3 (0-0.2); BASOPHIL % 1.4 % (0.0-2.0); EOSINOPHIL # 0.2 TH/MM3 (0-0.4); HEMOGLOBIN 7.5 GM/DL (13.0-17.0); LYMPH % 8.7 % (9.0-44.0); MEAN CELL VOLUME 86.4 FL (80.0-100.0); MEAN CORPUSCULAR HEMOGLOBIN 29.5 PG (27.0-34.0); MEAN CORPUSCULAR HGB CONC 34.2 % (32.0-36.0); MEAN PLATELET VOLUME 7.7 FL (7.0-11.0); MONO % 9.3 % (0.0-8.0); MONOCYTE # 1.1 TH/MM3 (0-0.9); NEUT % 78.6 % (16.0-70.0); PLATELET COUNT 262 TH/MM3 (150-450); RED BLOOD COUNT 2.54 MIL/MM3 (4.50-5.90); RED CELL DISTRIBUTION WIDTH 19.7 % (11.6-17.2); WHITE BLOOD COUNT 11.8 TH/MM3 (4.0-11.0)
[2017-10-19 06:05] LABS: ALBUMIN 3.1 GM/DL (3.4-5.0); AST (GOT) 39 U/L (15-37); BICARBONATE 30.6 MEQ/L (21.0-32.0); BLOOD UREA NITROGEN 46 MG/DL (7-18); CALCIUM 8.8 MG/DL (8.5-10.1); CHLORIDE 99 MEQ/L (98-107); CREATININE 3.73 MG/DL (0.60-1.30); GLOMERULAR FILTRATION RATE 20 ML/MIN (>89); GLUCOSE,RANDOM 90 MG/DL (74-106); SODIUM (NA) 138 MEQ/L (136-145)
[2017-10-19 06:06] LABS: ALT (GPT) LESS THAN 6 U/L (12-78); PHOSPHORUS 4.7 MG/DL (2.5-4.9)
[2017-10-19 06:08] LABS: ALKALINE PHOSPHATASE 80 U/L (45-117); TOTAL BILIRUBIN ADULT 1.2 MG/DL (0.2-1.0)
[2017-10-19] MEDS: METOPROLOL TARTRATE 25 MG TAB PO SCH ×3 (06:46→21:08)
[2017-10-19] MEDS: METHOCARBAMOL 500 MG TAB PO SCH ×4 (08:22→21:02)
[2017-10-19] MEDS: RIFAMPIN 150 MG CAP PO SCH ×2 (08:22→21:02)
[2017-10-19] MEDS: LACTOBACILLUS ACIDOPHILUS TAB PO SCH ×3 (08:22→18:33)
[2017-10-19] MEDS: BENEPROTEIN POWDER 1 PACK OG-TUBE SCH ×3 (08:22→18:00)
[2017-10-19] MEDS: PANTOPRAZOLE SODIUM 40 MG VIAL IV PUSH SCH ×2 (08:22→21:03)
[2017-10-19] MEDS: VANCOMYCIN 25 MG/ML SOLN 100 ML BOTTLE PO SCH ×4 (08:23→21:04)
[2017-10-19] MEDS: ARTIFICIAL TEARS OPTH OINT 3.5 APPLIC/3.5 GM TUBO EACH EYE SCH ×2 (08:23→21:00)
[2017-10-19] MEDS: CHLORHEXIDINE 0.12% (ORAL KIT) 15 ML CUP MT SCH ×2 (08:23→20:00)
[2017-10-19] MEDS: FLUTICASONE PROPIONATE 44 MCG/ACT 10.6 GM INHALER INH SCH ×2 (08:23→21:04)
[2017-10-19] MEDS: DOCUSATE SODIUM 50 MG/SENNA 8.6 MG TAB PO SCH ×2 (08:23→21:00)
[2017-10-19] MEDS: SODIUM CHLORIDE 0.9% FLUSH 10 ML FLUSH IV FLUSH SCH ×2 (08:23→21:04)
[2017-10-19] MEDS: RESP: ALBUTEROL 2.5 MG/IPRATROPIUM 0.5 MG NEB (SCH) NEB ×2 (08:41→19:29)
--- NOTE | 2017-10-19 09:08 | HHI.CCPN ---
Subjective Remarks/Hospital Course 27-year-old male with remote history of IV drug abuse, states he last used heroin 2 months ago, presents for evaluation of 8 days of body aches, 7 days of diarrhea with development of subjective fever yesterday. Patient denies any nausea or vomiting. He denies any chest pain. States that he is short of breath and feels anxious. This has developed within the last 24 hours. Patient does have a cough with clear sputum. Denies any prior history of endocarditis. Denies any abdominal pain. Does report some left back pain, worse while lying flat. He is well reports generalized weakness. 10/04/17: He is critically ill, remains febrile up to 103, tachycardic diaphoretic. large tricuspid valve vegetation on bedside echo, formal echo pending. Infectious disease consulted, CT surgery consult ordered. D/W Dr. Macias and Dr. Charles. CARMEN/health information tech consult ordered. Hb 6.6 getting 2U PRBC 10/05: Remains critically ill intubated sedated. TE on yesterday TEF 40-45%. Large mobile vegetation noted on the tricuspid valve, may be 2 separate vegetations, measures overall 4cm x 1.7cm. Probable mobile density noted on the pulmonic valve. CT of the chest shows extensive septic emboli and consolidation , with loculated appearing effusion on the left base. Dr. Charles CT surgery recommends 4-6 weeks of IV antibiotics followed by repeat echo, considering surgery at that time if no improvement 10/06: Worsening CXR, with bibasilar worsening infiltrates and effusion. IR to place CT-guided left chest tube today for loculated effusion. Fluid overloaded approximately 8 kg. IV Lasix 40 mg x1. MSSA bacteremia persists 10/07: Remains intubated sedated remains critical severe volume overload with worsening renal function creatinine 3, weight up by at least [address] him on Bumex infusion and consult nephrology. Patient remains slightly oliguric 800 mL urine output in 24 hours. Chest x-ray showed bilateral infiltrates and worsening right effusion 10/08: Remains intubated heavily sedated oliguric. Continues to have positive fluid balance creatinine increased to 4.3. Hemoglobin 6.9. Currently on Bumex infusion with not adequate response. Persistently bacteremic. Bilateral infiltrates on chest x-ray with moderate right effusion 10/09: Intubated sedated remains severely fluid overloaded started on hemodialysis yesterday with 4 L removed still positive fluid balance. Hemoglobin 6.81 unit PRBC transfusion ordered along with calcium replacement. GI consulted for further workup. Large pleural effusion on right side plan for pigtail chest tube placement 10/10: Intubated sedated. Had HD with 25L removed yesterday. right chest tube placed yesterday 1.2 L of old blood tinged effusion drained-Gram stain negative. Chest x-ray shows improvement in effusion. Remains severely fluid overloaded still remains 16-17 kg up. Discussed with nephrology plan for HD with maximum fluid removal as tolerated 10/11: The patient continues on sedation intubated, opens eyes spontaneously, not follow commands. The patient underwent hemodialysis yesterday approximately 3 L off. Bilateral chest tubes no leak noted. Minimal output left chest tube. 10/12: Daily sedation vacation initiated, opens eyes spontaneously, and following commands as squeezing hands bilaterally. Movement of lower extremities. She noted to have very thick secretions. Hemodialysis performed yesterday, approximately 3 L off. Patient noted to have thick copious secretions from airway, with worsening airspace disease on the right. Gen. surgery consulted for tracheostomy. 10/13: Patient remains critically ill opens eyes and follows commands on sedation hold. Did not tolerate CPAP trial today. Cancelled gen surgery consult for trach due to possible need for valve surgery. Continues to spike fever. Plan for changing line today 10/14: Plan for removal of vas catheter today, and to be replaced on . CT of the abdomen and pelvis pending. The patient was noted to have a drop in hemoglobin to 6.9 patient being transfused 1 unit of packed red blood cells. Left chest tube TPA instilled per IR serosanguineous drainage from left chest tube. Right chest tube placed to waterseal. 10/15: Afebrile. Patient continues on CPAP this am > 3 hours currently. Patient following commands. Discussed with Gen. Surgery, Ms. Zelaya to continue CPAP trials today. Per General Surgery conversation with CTS, Dr. Charles, if patient continues to fail CPAP trials, ok'd with CTS for tracheostomy. Pt received 1 u PRBC yesterday, Hgb, stable. 10/16: Tolerated CPAP 12/5 for several hours but still remains very fluid overloaded. Vas-Cath removed 10/14/17, will place new VasCath today for HD. Attempt maximum fluid removal. Blood cultures from 10/13 remains negative, but still spiking fever T-max 102.1 10/17: Patient tolerating CPAP better today at 10/5. Fever trending down. Hemoglobin dropped to 6.7. Plan was to do hemodialysis with maximum fluid removal and then extubated but patient ended up self extubating. I have discussed with Dr. Tapia who will dialyze today 10/18: Extubated yesterday tolerating well respiratory acosta. Getting hemodialysis today with target removal of 3.5 L. Urine output is 400 mL in 24 hours. Bilateral chest tube output minimal. Hemoglobin remaining stable. Bedside echo shows large essentially unchanged TV vegetation 10/19: Patient is breathing comfortably had hemodialysis yesterday with 3 L removed. Urine output 400 mL approximately in 24 hours. Bedside echo shows unchanged size and the tricuspid regurgitation. I discussed with Dr. Charles today-he is declining surgery due to active drug use, however will contact in no acute floor against tomorrow to see whether they will perform tricuspid valve surgery. If declined at [place] I will attempt [facility] for transfer Objective Vital Signs Date Time Temp Pulse Resp B/P (MAP) Pulse Ox O2 Delivery O2 Flow Rate FiO2 10/19/17 08:42 99 Nasal Cannula 3.00 10/19/17 06:00 118 10/19/17 04:00 98.8 20 120/69 (86) 10/18/17 04:00 30 Intake and Output 10/19/17 10/19/17 10/20/17 08:00 16:00 00:00 Intake Total 340 ml Output Total 258 ml Balance 82 ml Result Diagram: 10/19/17 0355 10/19/17 0355 Other Results Microbiology Date/Time Source Procedure Growth Status 10/16/17 12:55 Sputum Endotracheal Gram Stain - Final Complete 10/16/17 12:55 Sputum Endotracheal Sputum Culture - Final RARE GROWTH NORMAL RESPIRATORY RHIANNON Complete Imaging Last Impressions Chest X-Ray 10/15/17 0600 Signed Impressions: Service Date/Time: Sunday, October 15, 2017 03:32 - CONCLUSION: Stable appearance of bilateral chest tubes and no pneumothoraces. Jorge Jang MD Chest CT 10/14/17 0000 Signed Impressions: Service Date/Time: Saturday, October 14, 2017 00:26 - CONCLUSION: 1. Bilateral scattered pulmonary nodules are again noted. Several of the right nodules are now cavitary and likely represent septic emboli given the history of IV drug abuse. 2. Interval placement of bilateral chest tubes with small pleural effusions noted. 3. Dense consolidation remains in the posterior lower lobes. Jorge Jang MD Abdomen/Pelvis CT 10/14/17 0000 Signed Impressions: Service Date/Time: Saturday, October 14, 2017 16:39 - CONCLUSION: No new or acute intra-abdominal or pelvic findings. Madi Mccartney MD Upper Extremity Ultrasound 10/13/17 0000 Signed Impressions: Service Date/Time: Friday, October 13, 2017 11:25 - CONCLUSION: Normal examination. Christian Kaur MD Abdomen X-Ray 10/10/17 0000 Signed Impressions: Service Date/Time: Tuesday, October 10, 2017 16:46 - CONCLUSION: Negative for free air or obstruction. Rahul Yarbrough MD FACR Chest Tube Insertion 10/06/17 0000 Signed Impressions: Service Date/Time: Friday, October 06, 2017 15:37 - CONCLUSION: Uncomplicated chest tube placement as above. Emerson Hui MD Last Impressions Chest X-Ray 10/14/17 0600 Signed Impressions: Service Date/Time: Saturday, October 14, 2017 05:21 - CONCLUSION: 1. Interval removal of left subclavian central venous line. 2. Bilateral chest tubes remain in place with no pneumothorax. 3. No significant change in the bilateral airspace disease. Jorge Jang MD Chest CT 10/14/17 0000 Signed Impressions: Service Date/Time: Saturday, October 14, 2017 00:26 - CONCLUSION: 1. Bilateral scattered pulmonary nodules are again noted. Several of the right nodules are now cavitary and likely represent septic emboli given the history of IV drug abuse. 2. Interval placement of bilateral chest tubes with small pleural effusions noted. 3. Dense consolidation remains in the posterior lower lobes. Jorge Jang MD Upper Extremity Ultrasound 10/13/17 0000 Signed Impressions: Service Date/Time: Friday, October 13, 2017 11:25 - CONCLUSION: Normal examination. Christian aKur MD Abdomen X-Ray 10/10/17 0000 Signed Impressions: Service Date/Time: Tuesday, October 10, 2017 16:46 - CONCLUSION: Negative for free air or obstruction. Rahul Yarbrough MD FACR Chest Tube Insertion 10/06/17 0000 Signed Impressions: Service Date/Time: Friday, October 06, 2017 15:37 - CONCLUSION: Uncomplicated chest tube placement as above. Emerson Hui MD Abdomen/Pelvis CT 10/04/17 0000 Signed Impressions: Service Date/Time: Wednesday, October 04, 2017 21:21 - CONCLUSION: 1. Severe hepatosplenomegaly without focal lesion. 2. Free fluid in the pelvis. 3. Abnormal lower lungs and pleural effusions. 4. Prominent varices about the splenic vein. Mat Alejandra MD Last Impressions Chest X-Ray 10/11/17 0600 Signed Impressions: Service Date/Time: Wednesday, October 11, 2017 03:30 - CONCLUSION: Mild improvement in pulmonary edema with residual edema remaining. Left basilar opacity is present may be due to a combination of consolidation and or pleural effusion. All Kim MD Abdomen X-Ray 10/10/17 0000 Signed Impressions: Service Date/Time: Tuesday, October 10, 2017 16:46 - CONCLUSION: Negative for free air or obstruction. Rahul Yarbrough MD FACR Chest Tube Insertion 10/06/17 0000 Signed Impressions: Service Date/Time: Friday, October 06, 2017 15:37 - CONCLUSION: Uncomplicated chest tube placement as above. Emerson Hui MD Chest CT 10/04/17 0000 Signed Impressions: Service Date/Time: Wednesday, October 04, 2017 21:18 - CONCLUSION: Abnormal diffuse airspace opacities throughout both lungs with bilateral lower lobe consolidation and patchy focal areas of consolidation the remainder of the lungs. There is also bilateral pleural effusions with probable loculation. Mat Alejandra MD Abdomen/Pelvis CT 10/04/17 0000 Signed Impressions: Service Date/Time: Wednesday, October 04, 2017 21:21 - CONCLUSION: 1. Severe hepatosplenomegaly without focal lesion. 2. Free fluid in the pelvis. 3. Abnormal lower lungs and pleural effusions. 4. Prominent varices about the splenic vein. Mat Alejandra MD Objective Remarks GENERAL: Well-nourished, well-developed patient. Lying in bed not in acute distress, on NC SKIN: Warm and dry. Extensive tattoos limits skin exam. Anasarca HEAD: Normocephalic. EYES: No scleral icterus. No injection or drainage. Slight periorbital edema noted. ENT: Oral cavity moist NECK: Supple, trachea midline. No JVD or lymphadenopathy. New RIJ Vascath in place. right subclavian central line in place CARDIOVASCULAR: S1-S2 normal with systolic murmur at the left sternal border. Large TV vegetation on bedside echo, on admission and 10/18/17 RESPIRATORY: Air entry is equal bilaterally, coarse rhonchi and crackles. Left pig tail chest tubes in place. Minimal output GASTROINTESTINAL: Abdomen soft, non-tender, nondistended. MUSCULOSKELETAL: No cyanosis. Significant anasarca NEURO EXAM: Alert awake oriented, Pupils are round, reactive to light. Moving all extremities follows commands no focal deficit A/P Assessment and Plan Neuro IVDU: - Continue Fentanyl patch, with PRN IV Fentanyl. - Use Ativan PRN - Watch closely for withdrawal Resp: Acute hypoxemic respiratory failure, improved Extensive septic emboli, consolidation of the lung Loculated left effusion, large right effusion - Extubated 10/17 (Self extubated while on CPAP for planned extubation) - IR placed left chest tube 10/06 with more than 1 L exudative fluid out. Remove today 10/19 - Dr. Barraza placed right-sided pigtail chest tube at the bedside 10/09, brown tinged fluid approximately 1.1 L initial output, now output is minimum - Removed right chest tube 10/18/17. - Broad-spectrum antibiotics per ID, see below - DuoNeb q12hr and PRN - EzPAP, IS CVS: Large tricuspid valve vegetation, and pulmonic vegetation Severe sepsis Fluid overload - Bedside echo shows large tricuspid vegetation. repeat bedside echo today 10/18 similar size - Cardiology and CT surgery has followed. D/W Dr. Charles-he does not drink patient is a candidate for surgery due to active IV drug use - CARMEN 10/04: EF 40-45%. Large mobile vegetation on tricuspid valve, may be 2 separate vegetations, measures overall 4cm x 1.7cm. - Probable mobile density on pulmonic valve. - Rpt limited Echo in am - See ID section for ABX - HD started 10/08. Dr. Tapia. Continue with hemodialysis for fluid removal. Starting to achieve negative balance now GI: Hepatosplenomegaly Diarrhea - IV Protonix due to persistent anemia. GI following - Swallow eval and diet per speech recommendation - Hepatitis C reactive - Patient has hepatosplenomegaly, appreciate GI input - Endoscopy is planned only if there is obvious GI bleed : Acute kidney failure with fluid overload Dehydration on admission - Started hemodialysis 10/08, see above. Continue intermittent HD for fluid removal - Strict I's and O's, Monitor trend of creatinine - Electrolytes replacement per ICU protocol - 10/14-removed vas catheter. Replaced on 10/16 - HD with 3.5L removal 10/18 ID: Tricuspid and pulmonic valve endocarditis Septic emboli to the lung Severe sepsis MSSA bacteremia - Discussed with Dr. Charles CT surgery 10/05/17, 10/19, deemed not a surgical candidate - He recommends 4-6 weeks of IV antibiotics with repeat echo, consideration for surgery if Vegetations persists - Bedside Echo shows persistent large veg today - Ceftaroline, Cefazolin, Rifampin per ID Dr. Macias - Check C diff PCR, Empiric vanco oral per ID - Persistent MSSA bacteremia, cultures reviewed. Cultures from 10/13 negative, fever trending down now - Check f/u formal Echo 10/20 - Hepatitis C reactive Endo: -Electrolyte replacement per protocol Heme: Anemia requiring transfusion Thrombocytopenia - Transfuse PRBC to keep Hb>7.0 - LDH mildly elevated and haptoglobin normal, Transfusion 1u PRBC on 10/14, 10/17 - Monitor CBC, Coags - Thrombocytopenia most likely from sepsis and DIC DVT GI prophylaxis - TEDs SCDs - Started Heparin 5000 U sq q12-DCD 10/17 due to persistent anemia requiring transfusion - Protonix 40 q12 Critical Care: Level 3 PT/OT Jaki Barraza MD Oct 19, 2017 09:08
[2017-10-19] MEDS: ALBUMIN 25% INJ 100 ML IV SCH ×2 (10:07→21:04)
--- NOTE | 2017-10-19 10:45 | HHI.NPPN ---
Subjective History of Present Illness Patient is 27-year-old male who reported to ER with body aches, 7 days of diarrhea with development fever. Past medical history of IV drug use. Patient is sedated and ventilated FiO2 at 40 %. Nephrology is consulted for ZEUS and fluid over load status. Patients creatinine is 3.02 and GFR 25ml/min. Patient is UOP at 800cc for last 24 hours. Weight has increased by over 10 kg since admission. IVF's have been stopped and lasix has been given. Patient has endocarditis with large tricuspid valve vegetation, and pulmonic vegetation. Noted to have bacteremia with hypotension with SBP in the 90's. Additional Remarks No acute complaints, tolerated HD yesterday Review of Systems Respiratory Lungs: SOB, Sputum Objective Data Data 10/19/17 10/20/17 18:59 06:59 Intake Total 100 ml Balance 100 ml IV Total 100 ml Vital Signs Date Time Temp Pulse Resp B/P (MAP) Pulse Ox O2 Delivery O2 Flow Rate FiO2 10/19/17 10:00 120 10/19/17 08:42 99 Nasal Cannula 3.00 10/19/17 08:00 109 10/19/17 08:00 98.6 109 18 120/72 (88) 98 10/19/17 06:00 118 10/19/17 04:00 116 10/19/17 04:00 98.8 116 20 120/69 (86) 98 10/19/17 02:00 111 10/19/17 00:00 99.4 111 24 126/74 (91) 100 10/19/17 00:00 111 10/18/17 22:00 113 10/18/17 21:42 98 Nasal Cannula 4.00 10/18/17 20:00 100.6 128 20 139/71 (93) 99 10/18/17 20:00 128 10/18/17 18:00 127 10/18/17 16:00 97.9 128 24 130/73 (92) 93 10/18/17 16:00 130 10/18/17 15:25 22 10/18/17 14:00 128 10/18/17 12:00 124 10/18/17 12:00 97.8 124 20 118/61 (80) 95 -: 10/19/17 0355 10/19/17 0355 Microbiology 10/18/17 Aerobic Blood Culture, Received Pending 10/18/17 Anaerobic Blood Culture, Received Pending 10/18/17 Aerobic Blood Culture, Received Pending 10/18/17 Anaerobic Blood Culture, Received Pending Physical Exam General Appearance: No Acute Distress, Comfortable Pulmonary Resp Exam: Rhonchi, Decreased Bases, Diminished Breath Sounds, Poor Inspiratory Effort Cardiology CV Exam: Tachycardia Gastrointestinal/Abdomen GI Exam: Soft, Non-Tender, Bowel Sounds Present Integumentary Skin Exam: Clear, Warm Extremeties Extremities Exam: Moderate Edema, Dependent Edema Neurologic Neuro Exam: Awake Assessment/Plan Problem List: (1) ZEUS (acute kidney injury) ICD Codes: N17.9 - Acute kidney failure, unspecified Plan: ZEUS most likely ATN from sepsis and low blood pressure. Other differential will be ATN, Acute interstitial nephritis, and Post infectious GN,unlikely. On antibiotics ID following 400 cc UOP today HD done yesterday with 3.5 L UF Respiratory status stable. Plan for next HD Friday Will continue to monitor labs and urinary output Monitor for any renal recovery (2) Sepsis ICD Codes: A41.9 - Sepsis, unspecified organism Status: Acute Plan: Antibiotics per ID (3) Endocarditis ICD Codes: I38 - Endocarditis, valve unspecified Status: Acute Problem Qualifiers (1) Sepsis: Qualified Codes: A41.9 - Sepsis, unspecified organism (2) Endocarditis: Mendoza Calvo MD Oct 19, 2017 10:45
--- NOTE | 2017-10-19 11:30 | RADRPT ---
EXAM DATE/TIME: 10/19/2017 09:41 [facility] COMPARISON: CT THORAX W CONTRAST, October 04, 2017, 21:18. CHEST SINGLE AP, October 18, 2017, 4:05. INDICATIONS : Respiratory failure. MEDICAL HISTORY : Methicillin-resistant Staphylococcus aureus. Asthma. Sepsis. SURGICAL HISTORY : None. ENCOUNTER: Subsequent ACUITY: 2 weeks PAIN SCORE: 0/10 LOCATION: Bilateral chest FINDINGS: The heart size is borderline enlarged. The lungs demonstrate patchy areas of increased density diffu sely. A [id number] effusion is not clearly seen. There is a left-sided chest tube in good positio n. A left pneumothorax is not seen. There is a right internal jugular and right subclavian line in place. These lines are well placed with the tips overlying the SVC. CONCLUSION: 1. Borderline cardiomegaly. 2. Multiple patchy areas of consolidation scattered throughout the lungs bilaterally. This pattern is unchanged. 3. Left-sided chest tube in good position without evidence of pneumothorax. 4. Right internal jugular and right subclavian lines in good position. Madi Gold MD on October 19, 2017 at 10:32 Board Certified Radiologist. This report was verified electronically.
[2017-10-19] MEDS: VASOPRESSIN INJ 40 UNITS in DEXTROSE 5% IN WATER 100ML INJ 98 ML IV SCH ×2 (12:10)
[2017-10-19] MEDS: LORazepam 2 MG/ML VIAL IV PUSH PRN (23:10)
[2017-10-20] VITALS (14 sets, daily range): BP systolic 123–146; BP diastolic 81–87; PULSE 114–126; RESP 7–28; TEMP 98.3–100.4; O2SAT 90–100
[2017-10-20] MEDS: CHLORHEXIDINE GLUCONATE 2 % 1 PACK (2 CLOTHS) TOP SCH (03:18)
[2017-10-20] MEDS: VASOPRESSIN INJ 40 UNITS in DEXTROSE 5% IN WATER 100ML INJ 98 ML IV SCH ×4 (04:34→22:56)
[2017-10-20 04:44] LABS: AUTOMATED NEUTROPHIL # 10.1 TH/MM3 (1.8-7.7); BASOPHIL # 0.2 TH/MM3 (0-0.2); BASOPHIL % 1.9 % (0.0-2.0); EOSINOPHIL # 0.3 TH/MM3 (0-0.4); EOSINOPHIL % 2.2 % (0.0-4.0); HEMATOCRIT 22.3 % (39.0-51.0); HEMOGLOBIN 7.5 GM/DL (13.0-17.0); LYMPH % 7.6 % (9.0-44.0); MEAN CELL VOLUME 84.9 FL (80.0-100.0); MEAN CORPUSCULAR HEMOGLOBIN 28.7 PG (27.0-34.0); MEAN CORPUSCULAR HGB CONC 33.8 % (32.0-36.0); MEAN PLATELET VOLUME 7.7 FL (7.0-11.0); MONO % 9.7 % (0.0-8.0); MONOCYTE # 1.2 TH/MM3 (0-0.9); NEUT % 78.6 % (16.0-70.0); PLATELET COUNT 255 TH/MM3 (150-450); RED BLOOD COUNT 2.62 MIL/MM3 (4.50-5.90); RED CELL DISTRIBUTION WIDTH 19.7 % (11.6-17.2); WHITE BLOOD COUNT 12.8 TH/MM3 (4.0-11.0)
[2017-10-20] MEDS: METOPROLOL TARTRATE 25 MG TAB PO SCH ×4 (05:02→20:22)
[2017-10-20 05:07] LABS: ALBUMIN 3.1 GM/DL (3.4-5.0); AST (GOT) 48 U/L (15-37); BICARBONATE 27.3 MEQ/L (21.0-32.0); BLOOD UREA NITROGEN 56 MG/DL (7-18); CALCIUM 8.6 MG/DL (8.5-10.1); CHLORIDE 98 MEQ/L (98-107); CREATININE 4.59 MG/DL (0.60-1.30); GLOMERULAR FILTRATION RATE 16 ML/MIN (>89); GLUCOSE,RANDOM 93 MG/DL (74-106); SODIUM (NA) 135 MEQ/L (136-145)
[2017-10-20 05:10] LABS: ALKALINE PHOSPHATASE 78 U/L (45-117); ALT (GPT) LESS THAN 6 U/L (12-78); TOTAL BILIRUBIN ADULT 1.5 MG/DL (0.2-1.0); TOTAL PROTEIN 8.4 GM/DL (6.4-8.2)
--- NOTE | 2017-10-20 05:35 | RADRPT ---
EXAM DATE/TIME: 10/20/2017 03:39 [facility] COMPARISON: CHEST SINGLE AP, October 19, 2017, 9:41. INDICATIONS : Shortness of breath, possible pulmonary disease. MEDICAL HISTORY : Sepsis. SURGICAL HISTORY : None. ENCOUNTER: Subsequent ACUITY: 2 weeks PAIN SCORE: Non-responsive. LOCATION: Bilateral chest FINDINGS: Stable right IJ central line. Interval removal of right subclavian catheter. Stable left sided chest tube. Persistent patchy bilateral lower lung zone airspace disease. No significant pneumothorax. Card iomediastinal contours are stable. Remainder of the exam is unchanged. CONCLUSION: 1. Stable left-sided chest tube without pneumothorax. 2. Persistent patchy bilateral lower lung zone airspace disease. Emerson Hui MD on October 20, 2017 at 5:32 Board Certified Radiologist. This report was verified electronically.
[2017-10-20] MEDS: CHLORHEXIDINE 0.12% (ORAL KIT) 15 ML CUP MT SCH ×2 (08:00→20:00)
[2017-10-20] MEDS: ALBUMIN 25% INJ 100 ML IV SCH ×2 (08:21→20:22)
[2017-10-20] MEDS: DOCUSATE SODIUM 50 MG/SENNA 8.6 MG TAB PO SCH ×2 (08:22→20:05)
[2017-10-20] MEDS: LACTOBACILLUS ACIDOPHILUS TAB PO SCH ×3 (08:22→16:46)
[2017-10-20] MEDS: FLUTICASONE PROPIONATE 44 MCG/ACT 10.6 GM INHALER INH SCH ×2 (08:22→20:05)
[2017-10-20] MEDS: VANCOMYCIN 25 MG/ML SOLN 100 ML BOTTLE PO SCH ×4 (08:22→20:06)
[2017-10-20] MEDS: METHOCARBAMOL 500 MG TAB PO SCH ×4 (08:22→20:04)
[2017-10-20] MEDS: PANTOPRAZOLE SODIUM 40 MG VIAL IV PUSH SCH ×2 (08:23→20:04)
[2017-10-20] MEDS: ARTIFICIAL TEARS OPTH OINT 3.5 APPLIC/3.5 GM TUBO EACH EYE SCH ×2 (08:23→20:04)
[2017-10-20] MEDS: SODIUM CHLORIDE 0.9% FLUSH 10 ML FLUSH IV FLUSH SCH ×2 (08:23→20:05)
[2017-10-20] MEDS: BENEPROTEIN POWDER 1 PACK OG-TUBE SCH ×3 (08:24→16:45)
--- NOTE | 2017-10-20 08:39 | HHI.IDPN ---
Subjective Subjective Remarks is a 27 y/o CM with remote history of IV drug abuse, states he last used heroin 2 months ago, presents for evaluation of body aches, 7 days of diarrhea with development of subjective fever yesterday. Patient denies any nausea or vomiting. He denies any chest pain. This has developed within the last 24 hours. Patient does have a cough with clear sputum. Denies any prior history of endocarditis. Denies any abdominal pain. Does report some left back pain, worse while lying flat. He is well reports generalized weakness. Patient met criteria for sepsis on admission. Flu antigen negative. CXR with bilateral infiltrates. performed a bedside 2D ECHO and verbally reported a large ~4.5 cm vegetation on TV. CXR suspicious for septic emboli. Blood cultures drawn but it appears patient has received augmentin at some point and cultures may possibly be negative. ID is following for evaluation and Mment of Severe Sepsis and Endocarditis. Overnight events reviewed. Notes reviewed. D/W RN Extubated and on NC. Occ low grade temps. BP ok Last (+) BC 10/07 Rest of C/S reviewed 2 Pleural fluid C/S negative Last HD on Friday. CARMEN with persistent vegetations. 1 large BM overnight, Cdiff negative. Has Bilateral CTs in place. CL changed. Antibiotics Ancef IV Rifampin oral. Current Medications Medications (Trade) Dose Ordered Sig/Willem Route Start Time Stop Time Status Last Admin (NS Flush) 2 ml UNSCH PRN IV FLUSH 10/03/17 21:15 10/15/17 20:58 (NS Flush) 2 ml BID IV FLUSH 10/04/17 09:00 10/20/17 08:23 (Tylenol) 650 mg Q6H PRN PO 10/03/17 21:15 10/15/17 16:30 (Morphine Inj) 2 mg Q2H PRN IV PUSH 10/03/17 21:15 10/04/17 12:54 (Ativan Inj) 1 mg Q1H PRN IV PUSH 10/03/17 21:15 10/19/17 23:10 (Zofran Inj) 4 mg Q6H PRN IV PUSH 10/03/17 21:15 (Restoril) 15 mg HS PRN PO 10/03/17 21:15 (Duoneb Neb) 1 ampule Q2HR NEB PRN INH 10/03/17 21:15 10/18/17 15:32 Miscellaneous Information 1 Q361D XX 10/03/17 21:15 (Chlorhexidine 2% Cloth) Taper DAILY@04 TOP 10/04/17 04:00 09/30/18 03:59 10/18/17 04:00 (Chlorhexidine 2% Cloth) 3 pack UNSCH PRN TOP 10/03/17 21:15 (Renita-Colace) 1 tab BID PO 10/04/17 09:00 10/20/17 08:22 (Milk Of Magnesia Liq) 30 ml Q12H PRN PO 10/03/17 21:15 10/11/17 08:39 (Senokot) 17.2 mg Q12H PRN PO 10/03/17 21:15 (Dulcolax Supp) 10 mg DAILY PRN RECTAL 10/03/17 21:15 10/11/17 17:08 (Lactulose Liq) 30 ml DAILY PRN PO 10/03/17 21:15 10/11/17 17:08 (Flovent Hfa 44 Mcg Inh) 2 puff BID INH 10/04/17 09:00 10/20/17 08:22 (Robaxin) 500 mg QID PO 10/04/17 09:00 10/20/17 08:22 Acetaminophen 100 ml @ 400 mls/hr Q6H PRN IV 10/04/17 12:00 10/17/17 19:51 (Peridex 0.12% Liq) 15 ml BID@08,20 MT 10/04/17 20:00 10/19/17 08:23 (Beneprotein Powder) 2 pack TID OG-TUBE 10/05/17 13:00 10/19/17 08:22 Vasopressin 40 units/Dextrose 100 ml @ 6 mls/hr [id number] IV 10/06/17 09:00 Albumin Human 100 ml @ 60 mls/hr Q12H IV 10/07/17 10:00 10/20/17 08:21 (Rifampin) 300 mg Q12HR PO 10/08/17 11:30 10/19/17 21:02 Sodium Chloride 1,000 ml @ 0 mls/hr Q0M PRN OTHER 10/08/17 10:33 10/17/17 14:00 (Heparin Inj) 8,000 units UNSCH PRN IV FLUSH 10/08/17 10:45 Sodium Chloride 1,000 ml @ 200 mls/hr Q5H PRN IV 10/08/17 11:15 10/11/17 08:57 Sodium Chloride 1,000 ml @ 0 mls/hr Q0M PRN OTHER 10/08/17 11:15 (Mannitol Inj) 12.5 gm UNSCH PRN IV 10/08/17 11:15 Albumin Human 100 ml @ 60 mls/hr UNSCH PRN IV 10/08/17 11:30 10/16/17 14:55 (NS Flush) 5 ml UNSCH PRN IV FLUSH 10/08/17 11:15 10/18/17 11:26 (Heparin Inj) UNSCH PRN .XX 10/08/17 11:15 10/18/17 11:26 (Gentamicin Inj) 20 mg UNSCH PRN OTHER 10/08/17 11:15 10/18/17 11:27 (Zofran Inj) 4 mg UNSCH PRN IV PUSH 10/08/17 11:15 (Tylenol) 650 mg UNSCH PRN PO 10/08/17 11:15 (Benadryl) 25 mg UNSCH PRN PO 10/08/17 11:15 (Nitrostat Sl) 0.4 mg UNSCH PRN SL 10/08/17 11:30 (Catapres) 0.1 mg UNSCH PRN PO 10/08/17 11:30 (Epogen Inj) 10,000 units UNSCH PRN IV PUSH 10/08/17 11:30 10/18/17 11:27 (Gelfoam 12 Mm/7 Mm Top) 1 foam UNSCH PRN TOP 10/08/17 11:30 (Protonix Inj) 40 mg Q12HR IV PUSH 10/09/17 12:45 10/20/17 08:23 (Lacrilube Opht Oint) 1 applic Q12HR EACH EYE 10/11/17 14:30 10/20/17 08:23 (Lactinex) 1 tab TID PO 10/17/17 13:00 10/20/17 08:22 (Vancomycin 25 Mg/ml Liq) 125 mg QID PO 10/17/17 13:00 10/20/17 08:22 (Duragesic 100 Mcg Patch.72 Hr) 1 patch Q3D T-DERMAL 10/18/17 12:00 10/18/17 12:57 (Duoneb Neb) 1 ampule Q12HR NEB NEB 10/18/17 20:00 10/19/17 19:29 (fentaNYL INJ) 25 mcg Q1H PRN IV PUSH 10/18/17 11:00 Miscellaneous Information 1 Q3D T-DERMAL 10/21/17 12:00 Cefazolin Sodium 1000 mg/Sodium Chloride 100 ml @ 200 mls/hr Q8H IV 10/19/17 14:00 10/20/17 05:02 (Lopressor) 25 mg Q8HR PO 10/19/17 22:00 10/20/17 05:02 Lines Line sites with no e.o infection Past Medical History Asthma HCV Past Surgical History No surgical history per records. Allergies: Coded Allergies: erythromycin base (Verified Allergy, Severe, Nausea/Vomiting, 10/03/17) raspberry (Unverified Allergy, Mild, 10/03/17) Objective . Vital Signs Date Time Temp Pulse Resp B/P (MAP) Pulse Ox O2 Delivery O2 Flow Rate FiO2 10/20/17 06:00 114 10/20/17 04:00 123 10/20/17 04:00 100.4 123 24 135/82 (99) 100 10/20/17 02:00 124 10/20/17 00:00 122 10/20/17 00:00 99.4 122 24 146/82 (103) 100 10/19/17 22:00 121 10/19/17 20:00 98.8 128 24 128/73 (91) 98 10/19/17 20:00 128 10/19/17 19:32 99 Nasal Cannula 3.00 10/19/17 18:00 119 10/19/17 16:00 99.2 117 18 127/74 (91) 98 10/19/17 16:00 117 10/19/17 14:00 116 10/19/17 12:00 124 10/19/17 12:00 98.6 125 20 122/71 (88) 98 10/19/17 10:00 120 10/19/17 08:42 99 Nasal Cannula 3.00 . Laboratory Tests Test 10/19/17 03:55 10/20/17 04:15 White Blood Count 11.8 TH/MM3 12.8 TH/MM3 Red Blood Count 2.54 MIL/MM3 2.62 MIL/MM3 Hemoglobin 7.5 GM/DL 7.5 GM/DL Hematocrit 22.0 % 22.3 % Mean Corpuscular Volume 86.4 FL 84.9 FL Mean Corpuscular Hemoglobin 29.5 PG 28.7 PG Mean Corpuscular Hemoglobin Concent 34.2 % 33.8 % Red Cell Distribution Width 19.7 % 19.7 % Platelet Count 262 TH/MM3 255 TH/MM3 Mean Platelet Volume 7.7 FL 7.7 FL Neutrophils (%) (Auto) 78.6 % 78.6 % Lymphocytes (%) (Auto) 8.7 % 7.6 % Monocytes (%) (Auto) 9.3 % 9.7 % Eosinophils (%) (Auto) 2.0 % 2.2 % Basophils (%) (Auto) 1.4 % 1.9 % Neutrophils # (Auto) 9.2 TH/MM3 10.1 TH/MM3 Lymphocytes # (Auto) 1.0 TH/MM3 1.0 TH/MM3 Monocytes # (Auto) 1.1 TH/MM3 1.2 TH/MM3 Eosinophils # (Auto) 0.2 TH/MM3 0.3 TH/MM3 Basophils # (Auto) 0.2 TH/MM3 0.2 TH/MM3 CBC Comment DIFF FINAL DIFF FINAL Differential Comment Laboratory Tests Test 10/19/17 03:55 10/20/17 04:15 Blood Urea Nitrogen 46 MG/DL 56 MG/DL Creatinine 3.73 MG/DL 4.59 MG/DL Random Glucose 90 MG/DL 93 MG/DL Total Protein 8.0 GM/DL 8.4 GM/DL Albumin 3.1 GM/DL 3.1 GM/DL Calcium Level 8.8 MG/DL 8.6 MG/DL Phosphorus Level 4.7 MG/DL Magnesium Level 2.0 MG/DL Alkaline Phosphatase 80 U/L 78 U/L Aspartate Amino Transf (AST/SGOT) 39 U/L 48 U/L Alanine Aminotransferase (ALT/SGPT) LESS THAN 6 U/L LESS THAN 6 U/L Total Bilirubin 1.2 MG/DL 1.5 MG/DL Sodium Level 138 MEQ/L 135 MEQ/L Potassium Level 3.3 MEQ/L 3.6 MEQ/L Chloride Level 99 MEQ/L 98 MEQ/L Carbon Dioxide Level 30.6 MEQ/L 27.3 MEQ/L Anion Gap 8 MEQ/L 10 MEQ/L Estimat Glomerular Filtration Rate 20 ML/MIN 16 ML/MIN Microbiology Date/Time Source Procedure Growth Status 10/18/17 15:40 Blood Peripheral Aerobic Blood Culture - Preliminary NO GROWTH IN 1 DAY Resulted 10/18/17 15:40 Blood Peripheral Anaerobic Blood Culture - Preliminary NO GROWTH IN 1 DAY Resulted 10/18/17 13:45 Blood Peripheral Aerobic Blood Culture - Preliminary NO GROWTH IN 1 DAY Resulted 10/18/17 13:45 Blood Peripheral Anaerobic Blood Culture - Preliminary NO GROWTH IN 1 DAY Resulted Imaging Last Impressions Chest X-Ray 10/16/17 0600 Signed Impressions: Service Date/Time: September 04:06 - CONCLUSION: 1. Cardiomegaly with airspace disease and apparent small effusions most characteristic of congestive heart failure. Jorge Jang MD Chest CT 10/14/17 0000 Signed Impressions: Service Date/Time: Saturday, October 14, 2017 00:26 - CONCLUSION: 1. Bilateral scattered pulmonary nodules are again noted. Several of the right nodules are now cavitary and likely represent septic emboli given the history of IV drug abuse. 2. Interval placement of bilateral chest tubes with small pleural effusions noted. 3. Dense consolidation remains in the posterior lower lobes. Jorge Jang MD Abdomen/Pelvis CT 10/14/17 0000 Signed Impressions: Service Date/Time: Saturday, October 14, 2017 16:39 - CONCLUSION: No new or acute intra-abdominal or pelvic findings. Madi Mccartney MD Upper Extremity Ultrasound 10/13/17 0000 Signed Impressions: Service Date/Time: Friday, October 13, 2017 11:25 - CONCLUSION: Normal examination. Christian Kaur MD Abdomen X-Ray 10/10/17 0000 Signed Impressions: Service Date/Time: Tuesday, October 10, 2017 16:46 - CONCLUSION: Negative for free air or obstruction. Rahul Yarbrough MD FACR Chest Tube Insertion 10/06/17 0000 Signed Impressions: Service Date/Time: Friday, October 06, 2017 15:37 - CONCLUSION: Uncomplicated chest tube placement as above. Emerson Hui MD Physical Exam GENERAL: Awake, and following commands, on nasal O2, NAD SKIN: No rashes. Cool and dry. Multiple tattoos. HEAD: Atraumatic. Normocephalic. No temporal or scalp tenderness. EYES: Pupils equal round and reactive. Extraocular motions intact. No petechia, no hemorrhage ENT: Moist oral mucosa, no nasal drainage NECK: Trachea midline. Supple, nontender, no meningeal signs. CARDIOVASCULAR: Has systolic murmur RESPIRATORY: Decreased air entry bilaterally bases. Rt CT in place GASTROINTESTINAL: Abdomen soft, not tender, (+) BS MUSCULOSKELETAL: Extremities without clubbing, cyanosis. Mild pedal edema. No embolic lesion seen. NEUROLOGICAL: Awake, follows commands Psych cooperative IV line sites with no e.o infection. 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 Pneumonia: septic emboli, aspiration pneumonia. Respiratory failure, self extubated 10/17 IVDA: heroin, cocaine and methamphetamine. Acute renal failure: Sepsis, meds,contrast. - on HD Recs: Continue Ancef IV Continue Rifampin oral. Follow cultures Monitor progress Monitor respiratory status D/W RN BERNICE Burkett earlier he will make attempts for CT surgery. Patient at risk for recurrent embolization due to large and multiple vegetations. Lakia Macias MD Oct 20, 2017 08:39
[2017-10-20] MEDS: MORPHINE SULFATE 4 MG/ML INJ IV PUSH PRN ×4 (10:29→22:37)
[2017-10-20] MEDS: RESP: ALBUTEROL 2.5 MG/IPRATROPIUM 0.5 MG NEB (SCH) NEB ×2 (10:41→17:33)
--- NOTE | 2017-10-20 13:29 | RADRPT ---
EXAM DATE/TIME: 10/20/2017 12:42 [facility] COMPARISON: CHEST SINGLE AP, October 20, 2017, 3:39. INDICATIONS : Pneumothorax. MEDICAL HISTORY : Sepsis. SURGICAL HISTORY : None. ENCOUNTER: Subsequent ACUITY: 2 weeks PAIN SCORE: 0/10 LOCATION: Bilateral chest FINDINGS: Left thoracostomy tube remains in place. Right neck dialysis catheter remains in place. Patchy bilate ral infiltrates are grossly unchanged. Minimal effusion. Cardiac contours are grossly stable. CONCLUSION: No pneumothorax Madi Mccartney MD on October 20, 2017 at 13:25 Board Certified Radiologist. This report was verified electronically.
--- NOTE | 2017-10-20 13:42 | HHI.CCPN ---
Subjective Remarks/Hospital Course 27-year-old male with remote history of IV drug abuse, states he last used heroin 2 months ago, presents for evaluation of 8 days of body aches, 7 days of diarrhea with development of subjective fever yesterday. Patient denies any nausea or vomiting. He denies any chest pain. States that he is short of breath and feels anxious. This has developed within the last 24 hours. Patient does have a cough with clear sputum. Denies any prior history of endocarditis. Denies any abdominal pain. Does report some left back pain, worse while lying flat. He is well reports generalized weakness. 10/04/17: He is critically ill, remains febrile up to 103, tachycardic diaphoretic. large tricuspid valve vegetation on bedside echo, formal echo pending. Infectious disease consulted, CT surgery consult ordered. D/W Dr. Macias and Dr. Charles. CARMEN/nutritionist consult ordered. Hb 6.6 getting 2U PRBC 10/05: Remains critically ill intubated sedated. TE on yesterday TEF 40-45%. Large mobile vegetation noted on the tricuspid valve, may be 2 separate vegetations, measures overall 4cm x 1.7cm. Probable mobile density noted on the pulmonic valve. CT of the chest shows extensive septic emboli and consolidation , with loculated appearing effusion on the left base. Dr. Charles CT surgery recommends 4-6 weeks of IV antibiotics followed by repeat echo, considering surgery at that time if no improvement 10/06: Worsening CXR, with bibasilar worsening infiltrates and effusion. IR to place CT-guided left chest tube today for loculated effusion. Fluid overloaded approximately 8 kg. IV Lasix 40 mg x1. MSSA bacteremia persists 10/07: Remains intubated sedated remains critical severe volume overload with worsening renal function creatinine 3, weight up by at least [address] him on Bumex infusion and consult nephrology. Patient remains slightly oliguric 800 mL urine output in 24 hours. Chest x-ray showed bilateral infiltrates and worsening right effusion 10/08: Remains intubated heavily sedated oliguric. Continues to have positive fluid balance creatinine increased to 4.3. Hemoglobin 6.9. Currently on Bumex infusion with not adequate response. Persistently bacteremic. Bilateral infiltrates on chest x-ray with moderate right effusion 10/09: Intubated sedated remains severely fluid overloaded started on hemodialysis yesterday with 4 L removed still positive fluid balance. Hemoglobin 6.81 unit PRBC transfusion ordered along with calcium replacement. GI consulted for further workup. Large pleural effusion on right side plan for pigtail chest tube placement 10/10: Intubated sedated. Had HD with 25L removed yesterday. right chest tube placed yesterday 1.2 L of old blood tinged effusion drained-Gram stain negative. Chest x-ray shows improvement in effusion. Remains severely fluid overloaded still remains 16-17 kg up. Discussed with nephrology plan for HD with maximum fluid removal as tolerated 10/11: The patient continues on sedation intubated, opens eyes spontaneously, not follow commands. The patient underwent hemodialysis yesterday approximately 3 L off. Bilateral chest tubes no leak noted. Minimal output left chest tube. 10/12: Daily sedation vacation initiated, opens eyes spontaneously, and following commands as squeezing hands bilaterally. Movement of lower extremities. She noted to have very thick secretions. Hemodialysis performed yesterday, approximately 3 L off. Patient noted to have thick copious secretions from airway, with worsening airspace disease on the right. Gen. surgery consulted for tracheostomy. 10/13: Patient remains critically ill opens eyes and follows commands on sedation hold. Did not tolerate CPAP trial today. Cancelled gen surgery consult for trach due to possible need for valve surgery. Continues to spike fever. Plan for changing line today 10/14: Plan for removal of vas catheter today, and to be replaced on . CT of the abdomen and pelvis pending. The patient was noted to have a drop in hemoglobin to 6.9 patient being transfused 1 unit of packed red blood cells. Left chest tube TPA instilled per IR serosanguineous drainage from left chest tube. Right chest tube placed to waterseal. 10/15: Afebrile. Patient continues on CPAP this am > 3 hours currently. Patient following commands. Discussed with Gen. Surgery, Ms. Zelaya to continue CPAP trials today. Per General Surgery conversation with CTS, Dr. Charles, if patient continues to fail CPAP trials, ok'd with CTS for tracheostomy. Pt received 1 u PRBC yesterday, Hgb, stable. 10/16: Tolerated CPAP 12/5 for several hours but still remains very fluid overloaded. Vas-Cath removed 10/14/17, will place new VasCath today for HD. Attempt maximum fluid removal. Blood cultures from 10/13 remains negative, but still spiking fever T-max 102.1 10/17: Patient tolerating CPAP better today at 10/5. Fever trending down. Hemoglobin dropped to 6.7. Plan was to do hemodialysis with maximum fluid removal and then extubated but patient ended up self extubating. I have discussed with Dr. Tapia who will dialyze today 10/18: Extubated yesterday tolerating well respiratory acosta. Getting hemodialysis today with target removal of 3.5 L. Urine output is 400 mL in 24 hours. Bilateral chest tube output minimal. Hemoglobin remaining stable. Bedside echo shows large essentially unchanged TV vegetation 10/19: Patient is breathing comfortably had hemodialysis yesterday with 3 L removed. Urine output 400 mL approximately in 24 hours. Bedside echo shows unchanged size and the tricuspid regurgitation. I discussed with Dr. Charles today-he is declining surgery due to active drug use, however will contact in no acute floor against tomorrow to see whether they will perform tricuspid valve surgery. If declined at [facility] I will attempt [facility] for transfer 10/20: Breathing comfortably, but tearful emotional, hemodialysis plan for today. Creatinine slightly worsened urine output approximately 400 mL in 24 hours. Left chest tube to be removed by IR today. Waiting to hear back from [facility] regarding transfer for valve surgery. Declined by our thoracic surgeon due to active drug use and multiple complications Objective Vital Signs Date Time Temp Pulse Resp B/P (MAP) Pulse Ox O2 Delivery O2 Flow Rate FiO2 10/20/17 12:00 126 10/20/17 10:44 99 Nasal Cannula 2.00 10/20/17 10:34 22 10/20/17 08:00 98.3 138/86 (103) 10/18/17 04:00 30 Intake and Output 10/20/17 10/20/17 10/20/17 07:59 15:59 23:59 Intake Total 580 ml Output Total 254 ml Balance 326 ml Result Diagram: 10/20/17 0415 10/20/17 0415 Imaging Last Impressions Chest X-Ray 10/15/17 0600 Signed Impressions: Service Date/Time: Sunday, October 15, 2017 03:32 - CONCLUSION: Stable appearance of bilateral chest tubes and no pneumothoraces. Jorge Jang MD Chest CT 10/14/17 0000 Signed Impressions: Service Date/Time: Saturday, October 14, 2017 00:26 - CONCLUSION: 1. Bilateral scattered pulmonary nodules are again noted. Several of the right nodules are now cavitary and likely represent septic emboli given the history of IV drug abuse. 2. Interval placement of bilateral chest tubes with small pleural effusions noted. 3. Dense consolidation remains in the posterior lower lobes. Jorge Jang MD Abdomen/Pelvis CT 10/14/17 0000 Signed Impressions: Service Date/Time: Saturday, October 14, 2017 16:39 - CONCLUSION: No new or acute intra-abdominal or pelvic findings. Madi Mccartney MD Upper Extremity Ultrasound 10/13/17 0000 Signed Impressions: Service Date/Time: Friday, October 13, 2017 11:25 - CONCLUSION: Normal examination. Christian Kaur MD Abdomen X-Ray 10/10/17 0000 Signed Impressions: Service Date/Time: Tuesday, October 10, 2017 16:46 - CONCLUSION: Negative for free air or obstruction. Rahul Yarbrough MD FACR Chest Tube Insertion 10/06/17 0000 Signed Impressions: Service Date/Time: Friday, October 06, 2017 15:37 - CONCLUSION: Uncomplicated chest tube placement as above. Emerson Hui MD Last Impressions Chest X-Ray 10/14/17 0600 Signed Impressions: Service Date/Time: Saturday, October 14, 2017 05:21 - CONCLUSION: 1. Interval removal of left subclavian central venous line. 2. Bilateral chest tubes remain in place with no pneumothorax. 3. No significant change in the bilateral airspace disease. Jorge Jang MD Chest CT 10/14/17 0000 Signed Impressions: Service Date/Time: Saturday, October 14, 2017 00:26 - CONCLUSION: 1. Bilateral scattered pulmonary nodules are again noted. Several of the right nodules are now cavitary and likely represent septic emboli given the history of IV drug abuse. 2. Interval placement of bilateral chest tubes with small pleural effusions noted. 3. Dense consolidation remains in the posterior lower lobes. Jorge Jang MD Upper Extremity Ultrasound 10/13/17 0000 Signed Impressions: Service Date/Time: Friday, October 13, 2017 11:25 - CONCLUSION: Normal examination. Christian Kaur MD Abdomen X-Ray 10/10/17 0000 Signed Impressions: Service Date/Time: Tuesday, October 10, 2017 16:46 - CONCLUSION: Negative for free air or obstruction. Rahul Yarbrough MD FACR Chest Tube Insertion 10/06/17 0000 Signed Impressions: Service Date/Time: Friday, October 06, 2017 15:37 - CONCLUSION: Uncomplicated chest tube placement as above. Emerson Hui MD Abdomen/Pelvis CT 10/04/17 0000 Signed Impressions: Service Date/Time: Wednesday, October 04, 2017 21:21 - CONCLUSION: 1. Severe hepatosplenomegaly without focal lesion. 2. Free fluid in the pelvis. 3. Abnormal lower lungs and pleural effusions. 4. Prominent varices about the splenic vein. Mat Alejandra MD Last Impressions Chest X-Ray 10/11/17 0600 Signed Impressions: Service Date/Time: Wednesday, October 11, 2017 03:30 - CONCLUSION: Mild improvement in pulmonary edema with residual edema remaining. Left basilar opacity is present may be due to a combination of consolidation and or pleural effusion. All Kim MD Abdomen X-Ray 10/10/17 0000 Signed Impressions: Service Date/Time: Tuesday, October 10, 2017 16:46 - CONCLUSION: Negative for free air or obstruction. Rahul Yarbrough MD FACR Chest Tube Insertion 10/06/17 0000 Signed Impressions: Service Date/Time: Friday, October 06, 2017 15:37 - CONCLUSION: Uncomplicated chest tube placement as above. Emerson Hui MD Chest CT 10/04/17 0000 Signed Impressions: Service Date/Time: Wednesday, October 04, 2017 21:18 - CONCLUSION: Abnormal diffuse airspace opacities throughout both lungs with bilateral lower lobe consolidation and patchy focal areas of consolidation the remainder of the lungs. There is also bilateral pleural effusions with probable loculation. Mat Alejandra MD Abdomen/Pelvis CT 10/04/17 0000 Signed Impressions: Service Date/Time: Wednesday, October 04, 2017 21:21 - CONCLUSION: 1. Severe hepatosplenomegaly without focal lesion. 2. Free fluid in the pelvis. 3. Abnormal lower lungs and pleural effusions. 4. Prominent varices about the splenic vein. Mat Alejandra MD Objective Remarks GENERAL: Well-nourished, well-developed patient. Lying in bed not in acute distress, on NC SKIN: Warm and dry. Extensive tattoos limits skin exam. Anasarca HEAD: Normocephalic. EYES: No scleral icterus. No injection or drainage. Slight periorbital edema noted. ENT: Oral cavity moist NECK: Supple, trachea midline. No JVD or lymphadenopathy. New RIJ Vascath in place. CARDIOVASCULAR: S1-S2 normal with systolic murmur at the left sternal border. Large TV vegetation on bedside echo, on admission and 10/18/17 RESPIRATORY: Air entry is equal bilaterally, coarse rhonchi and crackles. Left pig tail chest tubes in place. Minimal output GASTROINTESTINAL: Abdomen soft, non-tender, nondistended. MUSCULOSKELETAL: No cyanosis. Significant anasarca NEURO EXAM: Alert awake oriented, Pupils are round, reactive to light. Moving all extremities follows commands no focal deficit A/P Assessment and Plan Neuro IVDU: - Continue Fentanyl patch, with PRN IV Fentanyl. - Use Ativan PRN - Watch closely for withdrawal Resp: Acute hypoxemic respiratory failure, improved Extensive septic emboli, consolidation of the lung Loculated left effusion, large right effusion - Extubated 10/17 (Self extubated while on CPAP for planned extubation) - IR placed left chest tube 10/06 with more than 1 L exudative fluid out. Remove today 10/20 - Dr. Barraza placed right-sided pigtail chest tube at the bedside 10/09, brown tinged fluid approximately 1.1 L initial output, now output is minimum - Removed right chest tube 10/18/17. - Broad-spectrum antibiotics per ID, see below - DuoNeb q12hr and PRN - EzPAP, IS CVS: Large tricuspid valve vegetation, and pulmonic vegetation Severe sepsis Fluid overload - Bedside echo shows large tricuspid vegetation. repeat bedside echo today 10/18 similar size - Cardiology and CT surgery has followed. D/W Dr. Charles declined surgery due to active IV drug use, multiple medical complications. Await input from [facility] - [facility] 10/04: EF 40-45%. Large mobile vegetation on tricuspid valve, may be 2 separate vegetations, measures overall 4cm x 1.7cm. - Probable mobile density on pulmonic valve. - Rpt limited Echo today - See ID section for ABX - HD started 10/08. Dr. Tapia. Continue with hemodialysis for fluid removal. Starting to achieve negative balance now GI: Hepatosplenomegaly Diarrhea - IV Protonix due to persistent anemia. GI following - Swallow eval and diet per speech recommendation - Hepatitis C reactive - Patient has hepatosplenomegaly, appreciate GI input - Endoscopy is planned only if there is obvious GI bleed : Acute kidney failure with fluid overload Dehydration on admission - Started hemodialysis 10/08, see above. Continue intermittent HD for fluid removal - Strict I's and O's, Monitor trend of creatinine - Electrolytes replacement per ICU protocol - 10/14-removed vas catheter. Replaced on 10/16 - HD today ID: Tricuspid and pulmonic valve endocarditis Septic emboli to the lung Severe sepsis MSSA bacteremia - Discussed with Dr. Charles CT surgery 10/05/17, 10/19, deemed not a surgical candidate, await input from [facility] - Bedside Echo shows persistent large veg 10/18. Formal limited Echo today - Ceftaroline, Cefazolin, Rifampin per ID Dr. Macias - Persistent MSSA bacteremia, cultures reviewed. Cultures from 10/13 negative, fever trending down now -- Hepatitis C reactive Endo: -Electrolyte replacement per protocol Heme: Anemia requiring transfusion Thrombocytopenia - Transfuse PRBC to keep Hb>7.0 - LDH mildly elevated and haptoglobin normal, Transfusion 1u PRBC on 10/14, 10/17 - Monitor CBC, Coags - Thrombocytopenia most likely from sepsis and DIC DVT GI prophylaxis - TEDs SCDs - Started Heparin 5000 U sq q12-DCD 10/17 due to persistent anemia requiring transfusion - Protonix 40 q12 Critical Care: Level 3 PT/OT Jaki Barraza MD Oct 20, 2017 13:42
--- NOTE | 2017-10-20 14:49 | ECHRPT ---
Indication: follow up endocarditis CONCLUSIONS The left ventricular systolic function is eshgtqkr-fz-wllevug reduced with an estimated ejection fra ction in the range of 35-40%. Two large vegetations noted on tricuspid valve ( 3.3x1.9cm, 1x1.9cm), most likely no change from pre vious echo, just now noted to be 2 separate vegatations. Moderate tricuspid regurgitation. The pulmonary valve is not well visualized. Vegatation noted in the right ventricle on short axis view may be from the tricsupid valve, most lik mathew not part of the pulmonic valve. There is a small pericardial effusion present. No hemodynamically significant echocardiographic features were observed (no pre-tamponade physiology). BP: / HR: Rhythm: MEASUREMENTS (Male / Female) Normal Values Technical Quality:Good 2D ECHO LV Diastolic Diameter PLAX 5.7 cm 4.2 - 5.9 / 3.9 - 5.3 cm LV Systolic Diameter PLAX 4.9 cm IVS Diastolic Thickness 1.2 cm 0.6 - 1.0 / 0.6 - 0.9 cm LVPW Diastolic Thickness 1.0 cm 0.6 - 1.0 / 0.6 - 0.9 cm LV Relative Wall Thickness 0.4 RV Internal Dim ED PLAX 2.8 cm FINDINGS LEFT VENTRICLE Normal left ventricular size. The left ventricular systolic function is qcnqsydg-tn-rqtzwtj reduced with an estimated ejection fra ction in the range of 35-40%. Wall thickness is normal. RIGHT VENTRICLE Grossly normal size and function Vegatation noted in the right ventricle on short axis view may be extension of the tricsupid valve, most likely not part of the pulmonic valve. LEFT ATRIUM The left atrial size is normal. RIGHT ATRIUM The right atrial size is normal. ATRIAL SEPTUM Normal atrial septal thickness AORTA The aortic root and proximal ascending aorta are normal in size on limited imaging. MITRAL VALVE Structurally normal mitral valve. Trace mitral valve regurgitation. No mitral valve stenosis. AORTIC VALVE Grossly normal aortic valve. No aortic valve stenosis or regurgitation. TRICUSPID VALVE Two large vegetations noted on tricuspid valve ( 3.3x1.9cm, 1x1.9cm), most likely no change from pre vious echo, just now noted to be 2 separate vegatations. Moderate tricuspid regurgitation PULMONARY VALVE The pulmonary valve is not well visualized. VESSELS The inferior vena cava is normal in size. PERICARDIUM There is a small pericardial effusion present. No hemodynamically significant echocardiographic features were observed (no pre-tamponade physiology). Zen Roberts DO (Electronically Signed) Final Date:20 October 2017 14:48 Amended: 20 October 2017 15:54
--- NOTE | 2017-10-20 14:52 | PD.WCN.NOT ---
Wound Consult Description: Received consult from Doctor Pollack for wound management of sacrum Communicated with: ТАТЬЯНА Mendiola and Doctor Jaki Barraza, verbal order received Recommendation: 1.Please cleanse wound to sacrum, coccyx, and bilateral buttocks with normal saline only and pat dry. 2.Apply Santyl tj thickness to wound bed only with dry 4x4 gauze pad. 3.Cover with ABD pad, secured medfix tape. Change dressing daily. 4.Turn patient every 2 hours and PRN for comfort and offloading of pressure from bhargavi prominences. Additional Information: Patient seen on 5th floor [facility] for wound management of sacrum. Patient was turned to L side with the assistance of Maury VAZ [facility], and information technology advisor to reveal open wound to sacrum, coccyx and bilateral buttock. Wound measures 9 cm x 12.5 cm x eschar. Wound bed presents with ~70% coverage of dry black eschar, ~ 20% yellow slough and ~10% pink tissue. Wound bed is dry, with no active drainage. Wound has mild foul odor.Periwound is unremarkable. Cleansed wound with normal saline. and pat dry. ТАТЬЯНА Mendiola to apply dressing as recommended above when Santyl is obtained from pharmacy. Patient laying on advanced turn alternating pressure support surface.Spoke with patient about increasing protein in diet to help with wound healing. Patient is in pain and appears anxious at this time. RN will re-enforce teaching at a later time. Patient was positioned off bottom toward L side before brief writer left room. Aury Arceo [facility] Oct 20, 2017 14:52
--- NOTE | 2017-10-20 15:33 | HHI.NPPN ---
Subjective History of Present Illness Patient is 27-year-old male who reported to ER with body aches, 7 days of diarrhea with development fever. Past medical history of IV drug use. Patient is sedated and ventilated FiO2 at 40 %. Nephrology is consulted for ZEUS and fluid over load status. Patients creatinine is 3.02 and GFR 25ml/min. Patient is UOP at 800cc for last 24 hours. Weight has increased by over 10 kg since admission. IVF's have been stopped and lasix has been given. Patient has endocarditis with large tricuspid valve vegetation, and pulmonic vegetation. Noted to have bacteremia with hypotension with SBP in the 90's. Additional Remarks No acute complaints, dialysis planned for tomorrow. On O2 2 liters appears lethargic (Venus Barrett) Objective Data Data Vital Signs Date Time Temp Pulse Resp B/P (MAP) Pulse Ox O2 Delivery O2 Flow Rate FiO2 10/20/17 14:00 117 10/20/17 12:00 98.9 126 28 130/87 (101) 90 10/20/17 12:00 126 10/20/17 10:44 99 Nasal Cannula 2.00 10/20/17 10:34 22 10/20/17 10:00 122 10/20/17 08:00 116 10/20/17 08:00 98.3 116 25 138/86 (103) 94 10/20/17 06:00 114 10/20/17 04:00 123 10/20/17 04:00 100.4 123 24 135/82 (99) 100 10/20/17 02:00 124 10/20/17 00:00 122 10/20/17 00:00 99.4 122 24 146/82 (103) 100 10/19/17 22:00 121 10/19/17 20:00 98.8 128 24 128/73 (91) 98 10/19/17 20:00 128 10/19/17 19:32 99 Nasal Cannula 2.00 10/19/17 18:00 119 10/19/17 16:00 99.2 117 18 127/74 (91) 98 10/19/17 16:00 117 (Venus Barrett) -: 10/20/17 0415 10/20/17 0415 Physical Exam General Appearance: No Acute Distress, Comfortable (Venus BarrettP) Pulmonary Resp Exam: Decreased Bases, Diminished Breath Sounds, Poor Inspiratory Effort (Venus BarrettP) Cardiology CV Exam: Tachycardia (Venus Barrett) Gastrointestinal/Abdomen GI Exam: Soft, Non-Tender, Bowel Sounds Present (Venus BarrettP) Integumentary Skin Exam: Clear, Warm (Venus Barrett) Extremeties Extremities Exam: Moderate Edema, Dependent Edema (Venus Barrett) Neurologic Neuro Exam: Awake (Venus Barrett) Assessment/Plan Problem List: (1) ZEUS (acute kidney injury) ICD Codes: N17.9 - Acute kidney failure, unspecified Plan: ZEUS most likely ATN from sepsis and low blood pressure. Other differential will be ATN, Acute interstitial nephritis, and Post infectious GN,unlikely. On antibiotics ID following 400 cc UOP today Last HD done Friday Respiratory status stable. Creatinine at 4.59 and potassium WNL Plan for next HD Tomorrow Will continue to monitor labs and urinary output Monitor for any renal recovery (2) Sepsis ICD Codes: A41.9 - Sepsis, unspecified organism Status: Acute Plan: Antibiotics per ID (3) Endocarditis ICD Codes: I38 - Endocarditis, valve unspecified Status: Acute (Venus Barrtet) Problem List: (1) ZEUS (acute kidney injury) ICD Codes: N17.9 - Acute kidney failure, unspecified Plan: ZEUS most likely ATN from sepsis and low blood pressure. Other differential will be ATN, Acute interstitial nephritis, and Post infectious GN,unlikely. On antibiotics ID following 400 cc UOP today Last HD done Friday Respiratory status stable. Creatinine at 4.59 and potassium WNL Plan for next HD Tomorrow Will continue to monitor labs and urinary output Monitor for any renal recovery. Patient seen and examined, agree with above. BUN and Creatinine still increasing. HD will be in AM. (2) Sepsis ICD Codes: A41.9 - Sepsis, unspecified organism Status: Acute Plan: Antibiotics per ID (3) Endocarditis ICD Codes: I38 - Endocarditis, valve unspecified Status: Acute (Darek Tapia MD) Problem Qualifiers (1) Sepsis: Qualified Codes: A41.9 - Sepsis, unspecified organism (2) Endocarditis: Venus Barrett Oct 20, 2017 15:33 Darek Tapia MD Oct 20, 2017 19:16
--- NOTE | 2017-10-20 16:37 | RADRPT ---
EXAM DATE/TIME: 10/20/2017 15:37 [facility] COMPARISON: CHEST EXPIRATION ONLY, October 20, 2017, 12:42. INDICATIONS : Chest tube removal. MEDICAL HISTORY : Sepsis. SURGICAL HISTORY : None. ENCOUNTER: Subsequent ACUITY: 2 weeks PAIN SCORE: Non-responsive. LOCATION: Bilateral chest FINDINGS: Chest tube has been removed. There is no pneumothorax on the left. Cardiomegaly with moderate bibas ilar parenchymal changes persist. Mild interstitial edema is evident. Vas-Cath in good position. CONCLUSION: No pneumothorax, following chest tube removal. Rahul Yarbrough MD FACR on October 20, 2017 at 16:36 Board Certified Radiologist. This report was verified electronically.
[2017-10-20] MEDS: COLLAGENASE OINT 30 GM TUBE TOPICAL SCH (16:45)
[2017-10-20] MEDS: RIFAMPIN 150 MG CAP PO SCH ×2 (18:59→20:05)
[2017-10-20] MEDS: RESP: ALBUTEROL 2.5 MG/IPRATROPIUM 0.5 MG NEB (PRN) INH (21:56)
[2017-10-21] VITALS (30 sets, daily range): BP systolic 120–178; BP diastolic 66–101; PULSE 109–120; RESP 11–42; TEMP 97–100; O2SAT 89–100
[2017-10-21] MEDS: MORPHINE SULFATE 4 MG/ML INJ IV PUSH PRN ×6 (01:03→23:47)
[2017-10-21] MEDS: METOPROLOL TARTRATE 25 MG TAB PO SCH ×3 (05:03→20:54)
[2017-10-21] MEDS: RESP: ALBUTEROL 2.5 MG/IPRATROPIUM 0.5 MG NEB (SCH) NEB ×3 (06:21→20:24)
[2017-10-21] MEDS: VANCOMYCIN 25 MG/ML SOLN 100 ML BOTTLE PO SCH ×4 (07:47→20:56)
[2017-10-21] MEDS: PANTOPRAZOLE SODIUM 40 MG VIAL IV PUSH SCH (07:49)
[2017-10-21] MEDS: METHOCARBAMOL 500 MG TAB PO SCH ×4 (07:49→20:54)
[2017-10-21] MEDS: DOCUSATE SODIUM 50 MG/SENNA 8.6 MG TAB PO SCH ×2 (07:49→20:54)
[2017-10-21] MEDS: ARTIFICIAL TEARS OPTH OINT 3.5 APPLIC/3.5 GM TUBO EACH EYE SCH (07:49)
[2017-10-21] MEDS: LACTOBACILLUS ACIDOPHILUS TAB PO SCH ×3 (07:49→18:13)
[2017-10-21] MEDS: CHLORHEXIDINE 0.12% (ORAL KIT) 15 ML CUP MT SCH ×2 (07:50→20:00)
[2017-10-21] MEDS: SODIUM CHLORIDE 0.9% FLUSH 10 ML FLUSH IV FLUSH SCH ×2 (07:50→20:53)
[2017-10-21] MEDS: FLUTICASONE PROPIONATE 44 MCG/ACT 10.6 GM INHALER INH SCH ×2 (07:50→20:55)
[2017-10-21] MEDS: BENEPROTEIN POWDER 1 PACK OG-TUBE SCH ×2 (07:51→13:00)
[2017-10-21] MEDS: ALBUMIN 25% INJ 100 ML IV SCH (10:27)
[2017-10-21] MEDS: GENTAMICIN SULFATE 20 MG/2 ML VIAL OTHER PRN (10:28)
[2017-10-21] MEDS: EPOETIN ALFA 10,000 UNITS/ML VIAL IV PUSH PRN (10:28)
[2017-10-21] MEDS: HEPARIN SODIUM - IV 10,000 UNITS/10 ML VIAL PRN (10:28)
[2017-10-21] MEDS: ACETAMINOPHEN 325 MG TAB PO PRN (11:09)
[2017-10-21] MEDS: fentaNYL 100 MCG/HR PATCH T-DERMAL SCH (11:09)
--- NOTE | 2017-10-21 11:14 | RADRPT ---
EXAM DATE/TIME: 10/20/2017 00:00 [place] COMPARISON: No previous studies available for comparison. INDICATIONS : LEFT LOCULATED EFFUSION DEVICE(S): 1.) Vaseline occlusive dressing PROCEDURE : Chest tube removal. Using aseptic technique the previously placed chest tube was easily removed in one piece and Vaseline gauze and sterile dressing was applied. Chest radiograph is to be obtained. CONCLUSION: Uncomplicated chest tube removal. Madi Mccartney MD on October 21, 2017 at 11:13 Board Certified Radiologist. This report was verified electronically.
[2017-10-21] MEDS: REMOVE OLD PATCH T-DERMAL SCH (12:00)
[2017-10-21] MEDS: RIFAMPIN 150 MG CAP PO SCH ×2 (12:27→20:53)
--- NOTE | 2017-10-21 12:31 | HHI.IDPN ---
Subjective Subjective Remarks is a 27 y/o CM with remote history of IV drug abuse, states he last used heroin 2 months ago, presents for evaluation of body aches, 7 days of diarrhea with development of subjective fever yesterday. Patient denies any nausea or vomiting. He denies any chest pain. This has developed within the last 24 hours. Patient does have a cough with clear sputum. Denies any prior history of endocarditis. Denies any abdominal pain. Does report some left back pain, worse while lying flat. He is well reports generalized weakness. Patient met criteria for sepsis on admission. Flu antigen negative. CXR with bilateral infiltrates. performed a bedside 2D ECHO and verbally reported a large ~4.5 cm vegetation on TV. CXR suspicious for septic emboli. Blood cultures drawn but it appears patient has received augmentin at some point and cultures may possibly be negative. ID is following for evaluation and M'ment of Severe Sepsis and Endocarditis. Overnight events reviewed. On RA Awake,AAOx3,NF. Occ low grade temps. BP ok underwent HD CARMEN with persistent vegetations. Antibiotics Ancef IV Rifampin oral. Current Medications Medications (Trade) Dose Ordered Sig/Willem Route Start Time Stop Time Status Last Admin (NS Flush) 2 ml UNSCH PRN IV FLUSH 10/03/17 21:15 10/15/17 20:58 (NS Flush) 2 ml BID IV FLUSH 10/04/17 09:00 10/21/17 07:50 (Tylenol) 650 mg Q6H PRN PO 10/03/17 21:15 10/21/17 11:09 (Morphine Inj) 2 mg Q2H PRN IV PUSH 10/03/17 21:15 10/21/17 07:49 (Ativan Inj) 1 mg Q1H PRN IV PUSH 10/03/17 21:15 10/19/17 23:10 (Zofran Inj) 4 mg Q6H PRN IV PUSH 10/03/17 21:15 (Restoril) 15 mg HS PRN PO 10/03/17 21:15 (Duoneb Neb) 1 ampule Q2HR NEB PRN INH 10/03/17 21:15 10/20/17 21:56 Miscellaneous Information 1 Q361D XX 10/03/17 21:15 (Chlorhexidine 2% Cloth) Taper DAILY@04 TOP 10/04/17 04:00 09/30/18 03:59 10/18/17 04:00 (Chlorhexidine 2% Cloth) 3 pack UNSCH PRN TOP 10/03/17 21:15 (Renita-Colace) 1 tab BID PO 10/04/17 09:00 10/21/17 07:49 (Milk Of Magnesia Liq) 30 ml Q12H PRN PO 10/03/17 21:15 10/11/17 08:39 (Senokot) 17.2 mg Q12H PRN PO 10/03/17 21:15 (Dulcolax Supp) 10 mg DAILY PRN RECTAL 10/03/17 21:15 10/11/17 17:08 (Lactulose Liq) 30 ml DAILY PRN PO 10/03/17 21:15 10/11/17 17:08 (Flovent Hfa 44 Mcg Inh) 2 puff BID INH 10/04/17 09:00 10/21/17 07:50 (Robaxin) 500 mg QID PO 10/04/17 09:00 10/21/17 07:49 Acetaminophen 100 ml @ 400 mls/hr Q6H PRN IV 10/04/17 12:00 10/17/17 19:51 (Peridex 0.12% Liq) 15 ml BID@08,20 MT 10/04/17 20:00 10/19/17 08:23 (Beneprotein Powder) 2 pack TID OG-TUBE 10/05/17 13:00 10/19/17 08:22 Vasopressin 40 units/Dextrose 100 ml @ 6 mls/hr [id number] IV 10/06/17 09:00 Albumin Human 100 ml @ 60 mls/hr Q12H IV 10/07/17 10:00 10/21/17 10:27 (Rifampin) 300 mg Q12HR PO 10/08/17 11:30 10/20/17 18:59 Sodium Chloride 1,000 ml @ 0 mls/hr Q0M PRN OTHER 10/08/17 10:33 10/17/17 14:00 (Heparin Inj) 8,000 units UNSCH PRN IV FLUSH 10/08/17 10:45 Sodium Chloride 1,000 ml @ 200 mls/hr Q5H PRN IV 10/08/17 11:15 10/11/17 08:57 Sodium Chloride 1,000 ml @ 0 mls/hr Q0M PRN OTHER 10/08/17 11:15 (Mannitol Inj) 12.5 gm UNSCH PRN IV 10/08/17 11:15 Albumin Human 100 ml @ 60 mls/hr UNSCH PRN IV 10/08/17 11:30 10/16/17 14:55 (NS Flush) 5 ml UNSCH PRN IV FLUSH 10/08/17 11:15 10/18/17 11:26 (Heparin Inj) UNSCH PRN .XX 10/08/17 11:15 10/21/17 10:28 (Gentamicin Inj) 20 mg UNSCH PRN OTHER 10/08/17 11:15 10/21/17 10:28 (Zofran Inj) 4 mg UNSCH PRN IV PUSH 10/08/17 11:15 (Tylenol) 650 mg UNSCH PRN PO 10/08/17 11:15 (Benadryl) 25 mg UNSCH PRN PO 10/08/17 11:15 (Nitrostat Sl) 0.4 mg UNSCH PRN SL 10/08/17 11:30 (Catapres) 0.1 mg UNSCH PRN PO 10/08/17 11:30 (Epogen Inj) 10,000 units UNSCH PRN IV PUSH 10/08/17 11:30 10/21/17 10:28 (Gelfoam 12 Mm/7 Mm Top) 1 foam UNSCH PRN TOP 10/08/17 11:30 (Protonix Inj) 40 mg Q12HR IV PUSH 10/09/17 12:45 10/21/17 07:49 (Lacrilube Opht Oint) 1 applic Q12HR EACH EYE 10/11/17 14:30 10/21/17 07:49 (Lactinex) 1 tab TID PO 10/17/17 13:00 10/21/17 07:49 (Vancomycin 25 Mg/ml Liq) 125 mg QID PO 10/17/17 13:00 10/21/17 07:47 (Duragesic 100 Mcg Patch.72 Hr) 1 patch Q3D T-DERMAL 10/18/17 12:00 10/21/17 11:09 (Duoneb Neb) 1 ampule Q12HR NEB NEB 10/18/17 20:00 10/21/17 06:21 (fentaNYL INJ) 25 mcg Q1H PRN IV PUSH 10/18/17 11:00 Miscellaneous Information 1 Q3D T-DERMAL 10/21/17 12:00 Cefazolin Sodium 1000 mg/Sodium Chloride 100 ml @ 200 mls/hr Q8H IV 10/19/17 14:00 10/21/17 05:03 (Lopressor) 50 mg Q8HR PO 10/20/17 14:00 10/21/17 05:03 (Santyl Oint) 1 applic DAILY TOPICAL 10/20/17 16:00 10/20/17 16:45 Lines Line sites with no e.o infection Past Medical History Asthma HCV Past Surgical History No surgical history per records. Allergies: Coded Allergies: erythromycin base (Verified Allergy, Severe, Nausea/Vomiting, 10/03/17) raspberry (Unverified Allergy, Mild, 10/03/17) Objective . Vital Signs Date Time Temp Pulse Resp B/P (MAP) Pulse Ox O2 Delivery O2 Flow Rate FiO2 10/21/17 06:00 116 10/21/17 05:41 17 10/21/17 04:00 100.0 119 24 145/81 (102) 10/21/17 04:00 119 10/21/17 02:00 120 10/21/17 00:00 115 10/21/17 00:00 99.6 115 25 131/80 (97) 98 10/20/17 22:04 95 Nasal Cannula 2.00 10/20/17 22:00 114 10/20/17 20:00 100.2 116 7 123/81 (95) 98 10/20/17 20:00 116 10/20/17 18:00 115 10/20/17 16:00 121 10/20/17 16:00 98.8 121 19 124/87 (99) 96 10/20/17 14:00 117 10/21/17 10/21/17 10/22/17 15:00 23:00 07:00 Output Total 5000 ml Balance -5000 ml Hemodialysis 5000 ml . Laboratory Tests Test 10/20/17 04:15 White Blood Count 12.8 TH/MM3 Red Blood Count 2.62 MIL/MM3 Hemoglobin 7.5 GM/DL Hematocrit 22.3 % Mean Corpuscular Volume 84.9 FL Mean Corpuscular Hemoglobin 28.7 PG Mean Corpuscular Hemoglobin Concent 33.8 % Red Cell Distribution Width 19.7 % Platelet Count 255 TH/MM3 Mean Platelet Volume 7.7 FL Neutrophils (%) (Auto) 78.6 % Lymphocytes (%) (Auto) 7.6 % Monocytes (%) (Auto) 9.7 % Eosinophils (%) (Auto) 2.2 % Basophils (%) (Auto) 1.9 % Neutrophils # (Auto) 10.1 TH/MM3 Lymphocytes # (Auto) 1.0 TH/MM3 Monocytes # (Auto) 1.2 TH/MM3 Eosinophils # (Auto) 0.3 TH/MM3 Basophils # (Auto) 0.2 TH/MM3 CBC Comment DIFF FINAL Differential Comment Laboratory Tests Test 10/20/17 04:15 Blood Urea Nitrogen 56 MG/DL Creatinine 4.59 MG/DL Random Glucose 93 MG/DL Total Protein 8.4 GM/DL Albumin 3.1 GM/DL Calcium Level 8.6 MG/DL Alkaline Phosphatase 78 U/L Aspartate Amino Transf (AST/SGOT) 48 U/L Alanine Aminotransferase (ALT/SGPT) LESS THAN 6 U/L Total Bilirubin 1.5 MG/DL Sodium Level 135 MEQ/L Potassium Level 3.6 MEQ/L Chloride Level 98 MEQ/L Carbon Dioxide Level 27.3 MEQ/L Anion Gap 10 MEQ/L Estimat Glomerular Filtration Rate 16 ML/MIN Microbiology Date/Time Source Procedure Growth Status 10/18/17 15:40 Blood Peripheral Aerobic Blood Culture - Preliminary NO GROWTH IN 3 DAYS Resulted 10/18/17 15:40 Blood Peripheral Anaerobic Blood Culture - Preliminary NO GROWTH IN 3 DAYS Resulted 10/18/17 13:45 Blood Peripheral Aerobic Blood Culture - Preliminary NO GROWTH IN 3 DAYS Resulted 10/18/17 13:45 Blood Peripheral Anaerobic Blood Culture - Preliminary NO GROWTH IN 3 DAYS Resulted Imaging Last Impressions Chest X-Ray 10/16/17 0600 Signed Impressions: Service Date/Time: September 04:06 - CONCLUSION: 1. Cardiomegaly with airspace disease and apparent small effusions most characteristic of congestive heart failure. Jorge Jang MD Chest CT 10/14/17 0000 Signed Impressions: Service Date/Time: Saturday, October 14, 2017 00:26 - CONCLUSION: 1. Bilateral scattered pulmonary nodules are again noted. Several of the right nodules are now cavitary and likely represent septic emboli given the history of IV drug abuse. 2. Interval placement of bilateral chest tubes with small pleural effusions noted. 3. Dense consolidation remains in the posterior lower lobes. Jorge Jang MD Abdomen/Pelvis CT 10/14/17 0000 Signed Impressions: Service Date/Time: Saturday, October 14, 2017 16:39 - CONCLUSION: No new or acute intra-abdominal or pelvic findings. Madi Mccartney MD Upper Extremity Ultrasound 10/13/17 0000 Signed Impressions: Service Date/Time: Friday, October 13, 2017 11:25 - CONCLUSION: Normal examination. Christian Kaur MD Abdomen X-Ray 10/10/17 0000 Signed Impressions: Service Date/Time: Tuesday, October 10, 2017 16:46 - CONCLUSION: Negative for free air or obstruction. Rahul Yarbrough MD FACR Chest Tube Insertion 10/06/17 0000 Signed Impressions: Service Date/Time: Friday, October 06, 2017 15:37 - CONCLUSION: Uncomplicated chest tube placement as above. Emerson Hui MD Physical Exam GENERAL: Awake, and following commands, on nasal O2, NAD SKIN: No rashes. Cool and dry. Multiple tattoos. HEAD: Atraumatic. Normocephalic. No temporal or scalp tenderness. EYES: Pupils equal round and reactive. Extraocular motions intact. No petechia, no hemorrhage ENT: Moist oral mucosa, no nasal drainage NECK: Trachea midline. Supple, nontender, no meningeal signs. CARDIOVASCULAR: Has systolic murmur RESPIRATORY: Decreased air entry bilaterally bases. Rt CT in place GASTROINTESTINAL: Abdomen soft, not tender, (+) BS MUSCULOSKELETAL: Extremities without clubbing, cyanosis. Mild pedal edema. No embolic lesion seen. NEUROLOGICAL: Awake, follows commands Psych cooperative IV line sites with no e.o infection. 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 Pneumonia: septic emboli, aspiration pneumonia. Respiratory failure, self extubated 10/17 IVDA: heroin, cocaine and methamphetamine. Acute renal failure: Sepsis, meds,contrast. - on HD Recs: Continue Ancef IV Continue Rifampin oral. Follow cultures Monitor progress Monitor respiratory status D/W Lakia Colby MD Oct 21, 2017 12:30
[2017-10-21] MEDS: COLLAGENASE OINT 30 GM TUBE TOPICAL SCH (12:35)
[2017-10-21 13:19] LABS: AUTOMATED NEUTROPHIL # 11.6 TH/MM3 (1.8-7.7); BASOPHIL # 0.4 TH/MM3 (0-0.2); BASOPHIL % 2.5 % (0.0-2.0); EOSINOPHIL # 0.3 TH/MM3 (0-0.4); EOSINOPHIL % 2.1 % (0.0-4.0); HEMATOCRIT 23.6 % (39.0-51.0); HEMOGLOBIN 8.2 GM/DL (13.0-17.0); LYMPH % 6.6 % (9.0-44.0); MEAN CELL VOLUME 85.1 FL (80.0-100.0); MEAN CORPUSCULAR HEMOGLOBIN 29.6 PG (27.0-34.0); MEAN CORPUSCULAR HGB CONC 34.8 % (32.0-36.0); MEAN PLATELET VOLUME 7.7 FL (7.0-11.0); MONOCYTE # 1.1 TH/MM3 (0-0.9); NEUT % 80.8 % (16.0-70.0); PLATELET COUNT 233 TH/MM3 (150-450); RED BLOOD COUNT 2.77 MIL/MM3 (4.50-5.90); RED CELL DISTRIBUTION WIDTH 19.3 % (11.6-17.2); WHITE BLOOD COUNT 14.4 TH/MM3 (4.0-11.0)
--- NOTE | 2017-10-21 13:21 | HHI.CCPN ---
Subjective Remarks/Hospital Course 27-year-old male with remote history of IV drug abuse, states he last used heroin 2 months ago, presents for evaluation of 8 days of body aches, 7 days of diarrhea with development of subjective fever yesterday. Patient denies any nausea or vomiting. He denies any chest pain. States that he is short of breath and feels anxious. This has developed within the last 24 hours. Patient does have a cough with clear sputum. Denies any prior history of endocarditis. Denies any abdominal pain. Does report some left back pain, worse while lying flat. He is well reports generalized weakness. 10/04/17: He is critically ill, remains febrile up to 103, tachycardic diaphoretic. large tricuspid valve vegetation on bedside echo, formal echo pending. Infectious disease consulted, CT surgery consult ordered. D/W Dr. Macias and Dr. Charles. CARMEN/sociology research assistant consult ordered. Hb 6.6 getting 2U PRBC 10/05: Remains critically ill intubated sedated. TE on yesterday TEF 40-45%. Large mobile vegetation noted on the tricuspid valve, may be 2 separate vegetations, measures overall 4cm x 1.7cm. Probable mobile density noted on the pulmonic valve. CT of the chest shows extensive septic emboli and consolidation , with loculated appearing effusion on the left base. Dr. Charles CT surgery recommends 4-6 weeks of IV antibiotics followed by repeat echo, considering surgery at that time if no improvement 10/06: Worsening CXR, with bibasilar worsening infiltrates and effusion. IR to place CT-guided left chest tube today for loculated effusion. Fluid overloaded approximately 8 kg. IV Lasix 40 mg x1. MSSA bacteremia persists 10/07: Remains intubated sedated remains critical severe volume overload with worsening renal function creatinine 3, weight up by at least [address] him on Bumex infusion and consult nephrology. Patient remains slightly oliguric 800 mL urine output in 24 hours. Chest x-ray showed bilateral infiltrates and worsening right effusion 10/08: Remains intubated heavily sedated oliguric. Continues to have positive fluid balance creatinine increased to 4.3. Hemoglobin 6.9. Currently on Bumex infusion with not adequate response. Persistently bacteremic. Bilateral infiltrates on chest x-ray with moderate right effusion 10/09: Intubated sedated remains severely fluid overloaded started on hemodialysis yesterday with 4 L removed still positive fluid balance. Hemoglobin 6.81 unit PRBC transfusion ordered along with calcium replacement. GI consulted for further workup. Large pleural effusion on right side plan for pigtail chest tube placement 10/10: Intubated sedated. Had HD with 25L removed yesterday. right chest tube placed yesterday 1.2 L of old blood tinged effusion drained-Gram stain negative. Chest x-ray shows improvement in effusion. Remains severely fluid overloaded still remains 16-17 kg up. Discussed with nephrology plan for HD with maximum fluid removal as tolerated 10/11: The patient continues on sedation intubated, opens eyes spontaneously, not follow commands. The patient underwent hemodialysis yesterday approximately 3 L off. Bilateral chest tubes no leak noted. Minimal output left chest tube. 10/12: Daily sedation vacation initiated, opens eyes spontaneously, and following commands as squeezing hands bilaterally. Movement of lower extremities. She noted to have very thick secretions. Hemodialysis performed yesterday, approximately 3 L off. Patient noted to have thick copious secretions from airway, with worsening airspace disease on the right. Gen. surgery consulted for tracheostomy. 10/13: Patient remains critically ill opens eyes and follows commands on sedation hold. Did not tolerate CPAP trial today. Cancelled gen surgery consult for trach due to possible need for valve surgery. Continues to spike fever. Plan for changing line today 10/14: Plan for removal of vas catheter today, and to be replaced on . CT of the abdomen and pelvis pending. The patient was noted to have a drop in hemoglobin to 6.9 patient being transfused 1 unit of packed red blood cells. Left chest tube TPA instilled per IR serosanguineous drainage from left chest tube. Right chest tube placed to waterseal. 10/15: Afebrile. Patient continues on CPAP this am > 3 hours currently. Patient following commands. Discussed with Gen. Surgery, Ms. Zelaya to continue CPAP trials today. Per General Surgery conversation with CTS, Dr. Charles, if patient continues to fail CPAP trials, ok'd with CTS for tracheostomy. Pt received 1 u PRBC yesterday, Hgb, stable. 10/16: Tolerated CPAP 12/5 for several hours but still remains very fluid overloaded. Vas-Cath removed 10/14/17, will place new VasCath today for HD. Attempt maximum fluid removal. Blood cultures from 10/13 remains negative, but still spiking fever T-max 102.1 10/17: Patient tolerating CPAP better today at 10/5. Fever trending down. Hemoglobin dropped to 6.7. Plan was to do hemodialysis with maximum fluid removal and then extubated but patient ended up self extubating. I have discussed with Dr. Tapia who will dialyze today 10/18: Extubated yesterday tolerating well respiratory acosta. Getting hemodialysis today with target removal of 3.5 L. Urine output is 400 mL in 24 hours. Bilateral chest tube output minimal. Hemoglobin remaining stable. Bedside echo shows large essentially unchanged TV vegetation 10/19: Patient is breathing comfortably had hemodialysis yesterday with 3 L removed. Urine output 400 mL approximately in 24 hours. Bedside echo shows unchanged size and the tricuspid regurgitation. I discussed with Dr. Charles today-he is declining surgery due to active drug use, however will contact in no acute floor against tomorrow to see whether they will perform tricuspid valve surgery. If declined at [facility] I will attempt [facility] for transfer 10/20: Breathing comfortably, but tearful emotional, hemodialysis plan for today. Creatinine slightly worsened urine output approximately 400 mL in 24 hours. Left chest tube to be removed by IR today. Waiting to hear back from [facility] regarding transfer for valve surgery. Declined by our thoracic surgeon due to active drug use and multiple complications Subjective 10/21: T-max 100.4. Currently 100. Resting in bed on nasal cannula in no acute distress. Receiving hemodialysis today Objective Vital Signs Date Time Temp Pulse Resp B/P (MAP) Pulse Ox O2 Delivery O2 Flow Rate FiO2 10/21/17 06:00 116 10/21/17 05:41 17 10/21/17 04:00 100.0 145/81 (102) 10/21/17 00:00 98 10/20/17 22:04 Nasal Cannula 2.00 10/18/17 04:00 30 Intake and Output 10/21/17 10/21/17 10/22/17 08:00 16:00 00:00 Intake Total 600 ml Output Total 225 ml 5000 ml Balance 375 ml -5000 ml Result Diagram: 10/20/17 0415 10/20/17 0415 Other Results Microbiology Date/Time Source Procedure Growth Status 10/18/17 15:40 Blood Peripheral Aerobic Blood Culture - Preliminary NO GROWTH IN 3 DAYS Resulted 10/18/17 15:40 Blood Peripheral Anaerobic Blood Culture - Preliminary NO GROWTH IN 3 DAYS Resulted 10/09/17 12:00 Fluid Pleural Fluid Fungal Smear - Final NO FUNGAL ELEMENTS SEEN. Resulted 10/09/17 12:00 Fluid Pleural Fluid Fungal Culture - Preliminary NO GROWTH IN 1 WEEK Resulted 10/16/17 12:55 Sputum Endotracheal Gram Stain - Final Complete 10/16/17 12:55 Sputum Endotracheal Sputum Culture - Final RARE GROWTH NORMAL RESPIRATORY RHIANNON Complete 10/03/17 21:30 Urine Random Urine Legionella Antigen - Final PRESUMPTIVE NEGATIVE FOR LEGIONELLA P... Complete 10/03/17 21:30 Urine Random Urine Streptococcus pneumoniae Antigen (M - Final PRESUMPTIVE NEGATIVE FOR STREPTOCOCCU... Complete Imaging Last Impressions Chest X-Ray 10/20/17 1230 Signed Impressions: Service Date/Time: Friday, October 20, 2017 12:42 - CONCLUSION: No pneumothorax Madi Mccartney MD Tunnelled Chest Tube Removal 10/20/17 0000 Signed Impressions: Service Date/Time: Friday, October 20, 2017 00:00 - CONCLUSION: Uncomplicated chest tube removal. Madi Mccartney MD Chest CT 10/14/17 0000 Signed Impressions: Service Date/Time: Saturday, October 14, 2017 00:26 - CONCLUSION: 1. Bilateral scattered pulmonary nodules are again noted. Several of the right nodules are now cavitary and likely represent septic emboli given the history of IV drug abuse. 2. Interval placement of bilateral chest tubes with small pleural effusions noted. 3. Dense consolidation remains in the posterior lower lobes. Jorge Jang MD Abdomen/Pelvis CT 10/14/17 0000 Signed Impressions: Service Date/Time: Saturday, October 14, 2017 16:39 - CONCLUSION: No new or acute intra-abdominal or pelvic findings. Madi Mccartney MD Upper Extremity Ultrasound 10/13/17 0000 Signed Impressions: Service Date/Time: Friday, October 13, 2017 11:25 - CONCLUSION: Normal examination. Christian Kaur MD Abdomen X-Ray 10/10/17 0000 Signed Impressions: Service Date/Time: Tuesday, October 10, 2017 16:46 - CONCLUSION: Negative for free air or obstruction. Rahul Yarbrough MD FACR Chest Tube Insertion 10/06/17 0000 Signed Impressions: Service Date/Time: Friday, October 06, 2017 15:37 - CONCLUSION: Uncomplicated chest tube placement as above. Emerson Hui MD Objective Remarks GENERAL: 27-year-old male resting in bed in no acute distress on nasal cannula SKIN: Warm and dry. Extensive tattoos limits skin exam. Anasarca. Positive carrera HEAD: Normocephalic. EYES: No scleral icterus. No injection or drainage. Slight periorbital edema noted. ENT: Oral cavity moist NECK: Supple, trachea midline. No JVD or lymphadenopathy. RIJ Vascath in place. Clean dry and intact CARDIOVASCULAR: S1-S2 no S4.. 2 out of 6 systolic murmur at the left sternal border. Large TV vegetation on bedside echo, on admission and 10/18/17 RESPIRATORY: Air entry is equal bilaterally, coarse rhonchi and crackles. Left pig tail chest tubes in place. Minimal output GASTROINTESTINAL: Abdomen soft, non-tender, nondistended. MUSCULOSKELETAL: Positive anasarca NEURO EXAM: Alert awake oriented, Pupils are round, reactive to light. Moving all extremities follows commands no focal deficit A/P Assessment and Plan Neuro/Psych IVDU Acetaminophen 650 mg p.o. every 6 hours as needed fever Hydrocodone/acetaminophen 5/325 1 tablet every 4 hours as needed pain 1 through 5 Morphine sulfate 2 mg IV every 2 hours as needed pain 6 or 10 - Continue Fentanyl patch 75 mcg every 72 hours Resp: Acute hypoxemic respiratory failure, improved Extensive septic emboli, consolidation of the lung Loculated left effusion, large right effusion - Extubated 10/17 (Self extubated while on CPAP for planned extubation) - IR placed left chest tube 10/06 with more than 1 L exudative fluid out. Removed 10/20 - Dr. Barraza placed right-sided pigtail chest tube at the bedside 10/09, brown tinged fluid approximately 1.1 L initial output, now output is minimum - Removed right chest tube 10/18/17. - Broad-spectrum antibiotics per ID, see below - Nasal cannula to maintain saturations greater than equal to 92% - Incentive spirometry while awake - Albuterol/ipratropium aerosols every 6 hours while awake with albuterol aerosols every 2 hours. Dyspnea - EzPAP - Fluticasone 44 mcg inhalation twice daily CVS: Large tricuspid valve vegetation Small pericardial effusion Acute systolic heart failure Mild pulmonary hypertension - Bedside echo shows large tricuspid vegetation. repeat bedside echo today 10/18 similar size - Cardiology and CT surgery has followed. D/W Dr. hCarles declined surgery due to active IV drug use, multiple medical complications. Await input from [facility] - CARMEN 10/04: EF 45-50 %. Large mobile vegetation on tricuspid valve, 2 separate vegetations 2.1 x 3.2 cm and 2.6 x 0.8 cm. PIP 40.7 mmHg -Echo 10/20 -EF 35-40%. Tricuspid valve education 1 3.3 potential 0.9 and 11.9 cm Currently on metoprolol tartrate 50 mg p.o. every 8 hours GI: Hepatosplenomegaly Diarrhea Hypoalbuminemia Hepatitis C reactive genotype pending. Viral load 10,700 Elevated ceruloplasmin MARTÍN + diffuse Elevated total bilirubin Elevated AST -Pantoprazole 40 mg p.o. twice daily due to persistent anemia. GI f is followed currently signed off - Swallow eval and diet per speech recommendation - Hepatitis C reactive. Genotype pending. Viral load 10,700 -Renal diet -Docusate sodium/senna 1 tablet twice daily for bowel regimen Renal/: Acute kidney failure with fluid overload - Started hemodialysis 10/08,above. - Continue intermittent HD for fluid removal. -5 L today 10/21 - Strict I's and O's, Monitor trend of creatinine - Replace electrolytes as clinically indicated - 10/14-removed vas catheter. Replaced on 10/16 ID: Tricuspid and pulmonic valve endocarditis Septic emboli to the lung Severe sepsis MSSA bacteremia - Discussed with Dr. Charles CT surgery 10/05/17, 10/19, deemed not a surgical candidate, await input from [facility] - Ceftaroline, Cefazolin, Rifampin per ID Dr. Macias. Also on vancomycin 125 mg 4 times daily - Persistent MSSA bacteremia 10/04, 10/05 10/07 blood cultures, cultures reviewed. Blood cultures from 10/13 negative, fever trending down now Endo: -Electrolyte replacement per protocol Heme: Anemia requiring transfusion Leukocytosis Normocytic anemia - Transfuse PRBC to keep Hb>7.0 - LDH mildly elevated and haptoglobin normal, Transfusion 1u PRBC on 10/14, 10/17 - Monitor CBC, Coags - Thrombocytopenia most likely from sepsis and DIC has resolved -Epogen 10,000 units as needed with hemodialysis MSK: PT evaluate and treat FEN: Replace electrolytes as clinically indicated DVT GI prophylaxis - TEDs SCDs - Started Heparin 5000 U sq q12-DCD 10/17 due to persistent anemia requiring transfusion Restart 10/21 -Pantoprazole 40 q12 Level 2 follow-up Danny Marie MD Oct 21, 2017 13:21
[2017-10-21 13:47] LABS: ALBUMIN 3.5 GM/DL (3.4-5.0); ALKALINE PHOSPHATASE 78 U/L (45-117); ALT (GPT) LESS THAN 6 U/L (12-78); AST (GOT) 42 U/L (15-37); BICARBONATE 29.6 MEQ/L (21.0-32.0); BLOOD UREA NITROGEN 45 MG/DL (7-18); CALCIUM 8.8 MG/DL (8.5-10.1); CHLORIDE 92 MEQ/L (98-107); CREATININE 4.03 MG/DL (0.60-1.30); GLOMERULAR FILTRATION RATE 18 ML/MIN (>89); GLUCOSE,RANDOM 117 MG/DL (74-106); SODIUM (NA) 131 MEQ/L (136-145)
[2017-10-21 13:51] LABS: TOXIC GRANULATION 1+ (NORMAL)
--- NOTE | 2017-10-21 16:22 | HHI.NPPN ---
Subjective History of Present Illness Patient is 27-year-old male who reported to ER with body aches, 7 days of diarrhea with development fever. Past medical history of IV drug use. Patient is sedated and ventilated FiO2 at 40 %. Nephrology is consulted for ZEUS and fluid over load status. Patients creatinine is 3.02 and GFR 25ml/min. Patient is UOP at 800cc for last 24 hours. Weight has increased by over 10 kg since admission. IVF's have been stopped and lasix has been given. Patient has endocarditis with large tricuspid valve vegetation, and pulmonic vegetation. Noted to have bacteremia with hypotension with SBP in the 90's. Additional Remarks Patient is alert and responding to questions. Mild SOB. Dialysis this morning (Venus Barrett) Objective Data Data 10/21/17 10/22/17 18:59 06:59 Output Total 5000 ml Balance -5000 ml Hemodialysis 5000 ml Vital Signs Date Time Temp Pulse Resp B/P (MAP) Pulse Ox O2 Delivery O2 Flow Rate FiO2 10/21/17 14:00 117 22 152/76 (101) 97 10/21/17 14:00 117 10/21/17 13:30 24 10/21/17 13:00 117 10/21/17 13:00 117 28 141/75 (97) 100 10/21/17 12:22 117 28 98 10/21/17 12:00 117 10/21/17 11:00 115 25 145/80 (101) 97 10/21/17 11:00 115 10/21/17 10:00 114 10/21/17 10:00 114 19 144/78 (100) 99 10/21/17 09:00 114 22 141/76 (97) 99 10/21/17 09:00 114 10/21/17 08:00 113 10/21/17 08:00 113 42 120/68 (85) 10/21/17 07:00 111 10/21/17 07:00 111 28 133/66 (88) 91 10/21/17 06:00 116 10/21/17 05:41 17 10/21/17 04:00 100.0 119 24 145/81 (102) 10/21/17 04:00 119 10/21/17 02:00 120 10/21/17 00:00 115 10/21/17 00:00 99.6 115 25 131/80 (97) 98 10/20/17 22:04 95 Nasal Cannula 2.00 10/20/17 22:00 114 10/20/17 20:00 100.2 116 7 123/81 (95) 98 10/20/17 20:00 116 10/20/17 18:00 115 (Venus Barrett) -: 10/21/17 1306 10/21/17 1306 Physical Exam General Appearance: No Acute Distress, Comfortable (Venus Barrett) Pulmonary Resp Exam: Decreased Bases, Diminished Breath Sounds, Poor Inspiratory Effort (Venus Barrett) Cardiology CV Exam: Tachycardia (Venus Barrett) Gastrointestinal/Abdomen GI Exam: Soft, Non-Tender, Bowel Sounds Present (Venus Barrett) Integumentary Skin Exam: Clear, Warm (Venus Barrett) Extremeties Extremities Exam: Moderate Edema, Dependent Edema (Venus Barrett) Neurologic Neuro Exam: Awake (Venus Barrett) Assessment/Plan Problem List: (1) ZEUS (acute kidney injury) ICD Codes: N17.9 - Acute kidney failure, unspecified Plan: ZEUS most likely ATN from sepsis and low blood pressure. Other differential will be ATN, Acute interstitial nephritis, and Post infectious GN,unlikely. 450 cc UOP past 24 hours Creatinine at 4.03 and potassium WNL Will continue to monitor labs and urinary output Monitor for any renal recovery. HD today for 5 liters removed Next dialysis for . (2) Sepsis ICD Codes: A41.9 - Sepsis, unspecified organism Status: Acute Plan: Antibiotics per ID (3) Endocarditis ICD Codes: I38 - Endocarditis, valve unspecified Status: Acute (Venus Barrett) Problem List: (1) ZEUS (acute kidney injury) ICD Codes: N17.9 - Acute kidney failure, unspecified Plan: ZEUS most likely ATN from sepsis and low blood pressure. Other differential will be ATN, Acute interstitial nephritis, and Post infectious GN,unlikely. 450 cc UOP past 24 hours Creatinine at 4.03 and potassium WNL Will continue to monitor labs and urinary output Monitor for any renal recovery. HD today for 5 liters removed Next dialysis for . Patient seen and examined, agree with above. Watch for renal recovery, HD as needed. (2) Sepsis ICD Codes: A41.9 - Sepsis, unspecified organism Status: Acute Plan: Antibiotics per ID (3) Endocarditis ICD Codes: I38 - Endocarditis, valve unspecified Status: Acute (Darek Tapia MD) Problem Qualifiers (1) Sepsis: Qualified Codes: A41.9 - Sepsis, unspecified organism (2) Endocarditis: Venus Barrett Oct 21, 2017 16:21 Darek Tapia MD Oct 21, 2017 18:55
[2017-10-21] MEDS: ACETAMINOPHEN/HYDROcodone 325 MG/5 MG TAB PO PRN (16:29)
[2017-10-21] MEDS: CHLORHEXIDINE GLUCONATE 2 % 1 PACK (2 CLOTHS) TOP SCH (20:52)
[2017-10-21] MEDS: HEPARIN SODIUM - SQ 10,000 UNITS/ML VIAL SQ SCH (20:53)
[2017-10-21] MEDS: PANTOPRAZOLE SOD 40 MG DELAYED RELEASE TAB PO SCH (20:54)
[2017-10-22] VITALS (14 sets, daily range): BP systolic 93–140; BP diastolic 53–75; PULSE 12–133; RESP 18–33; TEMP 98.6–100.2; O2SAT 92–100
[2017-10-22] MEDS: MORPHINE SULFATE 4 MG/ML INJ IV PUSH PRN ×7 (02:27→20:21)
[2017-10-22] MEDS: ACETAMINOPHEN/HYDROcodone 325 MG/5 MG TAB PO PRN ×2 (03:48→12:52)
[2017-10-22] MEDS: METOPROLOL TARTRATE 25 MG TAB PO SCH ×3 (04:37→22:00)
[2017-10-22] MEDS: RESP: ALBUTEROL 2.5 MG/3 ML NEB (PRN) NEB (05:12)
[2017-10-22 07:40] LABS: AUTOMATED NEUTROPHIL # 10.6 TH/MM3 (1.8-7.7); BASOPHIL # 0.3 TH/MM3 (0-0.2); BASOPHIL % 2.3 % (0.0-2.0); EOSINOPHIL # 0.4 TH/MM3 (0-0.4); EOSINOPHIL % 3.2 % (0.0-4.0); HEMATOCRIT 21.5 % (39.0-51.0); HEMOGLOBIN 7.4 GM/DL (13.0-17.0); LYMPH % 6.9 % (9.0-44.0); LYMPHOCYTE # 0.9 TH/MM3 (1.0-4.8); MEAN CORPUSCULAR HEMOGLOBIN 29.5 PG (27.0-34.0); MEAN CORPUSCULAR HGB CONC 34.3 % (32.0-36.0); MEAN PLATELET VOLUME 7.8 FL (7.0-11.0); MONOCYTE # 1.4 TH/MM3 (0-0.9); NEUT % 77.6 % (16.0-70.0); PLATELET COUNT 182 TH/MM3 (150-450); RED CELL DISTRIBUTION WIDTH 19.6 % (11.6-17.2); WHITE BLOOD COUNT 13.7 TH/MM3 (4.0-11.0)
[2017-10-22] MEDS: RESP: ALBUTEROL 2.5 MG/IPRATROPIUM 0.5 MG NEB (SCH) NEB ×4 (07:53→19:30)
[2017-10-22] MEDS: CHLORHEXIDINE 0.12% (ORAL KIT) 15 ML CUP MT SCH ×2 (08:00→20:00)
[2017-10-22 08:13] LABS: BICARBONATE 27.9 MEQ/L (21.0-32.0); CALCIUM 8.7 MG/DL (8.5-10.1); CREATININE 5.14 MG/DL (0.60-1.30); MAGNESIUM 1.9 MG/DL (1.5-2.5); PHOSPHORUS 5.2 MG/DL (2.5-4.9)
[2017-10-22] MEDS: RIFAMPIN 150 MG CAP PO SCH ×2 (08:59→20:19)
[2017-10-22] MEDS: FLUTICASONE PROPIONATE 44 MCG/ACT 10.6 GM INHALER INH SCH ×2 (08:59→20:20)
[2017-10-22] MEDS: PANTOPRAZOLE SOD 40 MG DELAYED RELEASE TAB PO SCH ×2 (09:00→20:19)
[2017-10-22] MEDS: VANCOMYCIN 25 MG/ML SOLN 100 ML BOTTLE PO SCH (09:00)
[2017-10-22] MEDS: METHOCARBAMOL 500 MG TAB PO SCH ×4 (09:00→20:19)
[2017-10-22] MEDS: SODIUM CHLORIDE 0.9% FLUSH 10 ML FLUSH IV FLUSH SCH ×2 (09:00→20:20)
[2017-10-22] MEDS: DOCUSATE SODIUM 50 MG/SENNA 8.6 MG TAB PO SCH ×2 (09:00→20:19)
[2017-10-22] MEDS: LACTOBACILLUS ACIDOPHILUS TAB PO SCH ×3 (09:00→18:33)
[2017-10-22] MEDS: HEPARIN SODIUM - SQ 10,000 UNITS/ML VIAL SQ SCH ×2 (09:01→20:18)
[2017-10-22] MEDS: COLLAGENASE OINT 30 GM TUBE TOPICAL SCH (09:02)
--- NOTE | 2017-10-22 09:07 | HHI.NPPN ---
Subjective History of Present Illness Patient is 27-year-old male who reported to ER with body aches, 7 days of diarrhea with development fever. Past medical history of IV drug use. Patient is sedated and ventilated FiO2 at 40 %. Nephrology is consulted for ZEUS and fluid over load status. Patients creatinine is 3.02 and GFR 25ml/min. Patient is UOP at 800cc for last 24 hours. Weight has increased by over 10 kg since admission. IVF's have been stopped and lasix has been given. Patient has endocarditis with large tricuspid valve vegetation, and pulmonic vegetation. Noted to have bacteremia with hypotension with SBP in the 90's. Additional Remarks Patient is alert and responding to questions. Tearful during visit. (Venus Barrett) Review of Systems Psych Psych: Depression, Anxiety (Venus Barrett) Objective Data Data Vital Signs Date Time Temp Pulse Resp B/P (MAP) Pulse Ox O2 Delivery O2 Flow Rate FiO2 10/22/17 07:54 95 Nasal Cannula 3.00 10/22/17 06:00 113 10/22/17 04:00 98.6 117 33 103/69 (80) 98 10/22/17 04:00 117 10/22/17 02:00 123 10/22/17 00:00 99.9 121 30 140/75 (96) 97 10/22/17 00:00 121 10/21/17 22:00 117 10/21/17 20:22 99 Nasal Cannula 3.00 10/21/17 20:00 99.7 112 19 129/80 (96) 98 10/21/17 20:00 112 10/21/17 18:00 114 10/21/17 17:01 111 29 178/101 (126) 93 10/21/17 17:00 111 10/21/17 17:00 111 22 89 10/21/17 16:45 111 25 156/81 (106) 97 10/21/17 16:33 100 Nasal Cannula 3.00 10/21/17 16:30 97.0 109 26 144/80 (101) 100 10/21/17 16:15 110 23 140/88 (105) 98 10/21/17 16:00 111 23 145/85 (105) 99 10/21/17 16:00 111 10/21/17 15:45 113 23 140/87 (104) 98 10/21/17 15:30 113 26 141/82 (101) 99 10/21/17 15:15 114 25 133/76 (95) 98 10/21/17 15:00 112 24 140/89 (106) 100 10/21/17 14:45 113 22 142/85 (104) 100 10/21/17 14:30 114 11 140/86 (104) 100 10/21/17 14:00 117 22 152/76 (101) 97 10/21/17 14:00 117 10/21/17 13:30 24 10/21/17 13:00 117 10/21/17 13:00 117 28 141/75 (97) 100 10/21/17 12:22 117 28 98 10/21/17 12:00 117 10/21/17 11:00 115 25 145/80 (101) 97 10/21/17 11:00 115 10/21/17 10:00 114 10/21/17 10:00 114 19 144/78 (100) 99 (Venus Barrett) -: 10/22/17 0725 10/22/17 0725 Physical Exam General Appearance: No Acute Distress, Comfortable (Venus Barrett) Eyes Eye Exam: Pupils Equal (Venus Barrett) Pulmonary Resp Exam: Decreased Bases, Diminished Breath Sounds, Poor Inspiratory Effort (Venus Barrett) Cardiology CV Exam: Tachycardia (Venus Barrett) Gastrointestinal/Abdomen GI Exam: Soft, Non-Tender, Bowel Sounds Present (Venus Barrett) Integumentary Skin Exam: Clear, Warm (Venus Barrett) Extremeties Extremities Exam: Moderate Edema (Venus Barrett) Neurologic Neuro Exam: Awake (Venus Barrett) Assessment/Plan Problem List: (1) ZEUS (acute kidney injury) ICD Codes: N17.9 - Acute kidney failure, unspecified Plan: ZEUS most likely ATN from sepsis and low blood pressure. Other differential will be ATN, Acute interstitial nephritis, and Post infectious GN,unlikely. Indwelling Shine catheter removed Creatinine at 5.14 and potassium WNL PO4 at 5.4. On renal diet will watch HGB 7.4 Epogen with dialysis Will continue to monitor labs, urinary output, and watch for renal recovery HD in tomorrow. (2) Sepsis ICD Codes: A41.9 - Sepsis, unspecified organism Status: Acute Plan: Antibiotics per ID (3) Endocarditis ICD Codes: I38 - Endocarditis, valve unspecified Status: Acute (Venus Barrett) Problem List: (1) ZEUS (acute kidney injury) ICD Codes: N17.9 - Acute kidney failure, unspecified Plan: ZEUS most likely ATN from sepsis and low blood pressure. Other differential will be ATN, Acute interstitial nephritis, and Post infectious GN,unlikely. Indwelling Shine catheter removed Creatinine at 5.14 and potassium WNL PO4 at 5.4. On renal diet will watch HGB 7.4 Epogen with dialysis Will continue to monitor labs, urinary output, and watch for renal recovery HD in tomorrow. Patient seen and examined, agree with above. (2) Sepsis ICD Codes: A41.9 - Sepsis, unspecified organism Status: Acute Plan: Antibiotics per ID (3) Endocarditis ICD Codes: I38 - Endocarditis, valve unspecified Status: Acute (Darek Tapia MD) Problem Qualifiers (1) Sepsis: Qualified Codes: A41.9 - Sepsis, unspecified organism (2) Endocarditis: Venus Barrett Oct 22, 2017 09:07 Darek Tapia MD Oct 22, 2017 19:16
[2017-10-22] MEDS: ONDANSETRON HCL 4 MG/2 ML VIAL IV PUSH PRN (10:22)
--- NOTE | 2017-10-22 12:34 | HHI.IDPN ---
Subjective Subjective Remarks is a 27 y/o CM with remote history of IV drug abuse, states he last used heroin 2 months ago, presents for evaluation of body aches, 7 days of diarrhea with development of subjective fever yesterday. Patient denies any nausea or vomiting. He denies any chest pain. This has developed within the last 24 hours. Patient does have a cough with clear sputum. Denies any prior history of endocarditis. Denies any abdominal pain. Does report some left back pain, worse while lying flat. He is well reports generalized weakness. Patient met criteria for sepsis on admission. Flu antigen negative. CXR with bilateral infiltrates. performed a bedside 2D ECHO and verbally reported a large ~4.5 cm vegetation on TV. CXR suspicious for septic emboli. Blood cultures drawn but it appears patient has received augmentin at some point and cultures may possibly be negative. ID is following for evaluation and M'ment of Severe Sepsis and Endocarditis. Overnight events reviewed. On RA Awake,AAOx3,NF. Occ low grade temps. BP ok HD tues, thurs and Sat Antibiotics Ancef IV Rifampin oral. Current Medications Medications (Trade) Dose Ordered Sig/Willem Route Start Time Stop Time Status Last Admin (NS Flush) 2 ml UNSCH PRN IV FLUSH 10/03/17 21:15 10/15/17 20:58 (NS Flush) 2 ml BID IV FLUSH 10/04/17 09:00 10/21/17 07:50 (Tylenol) 650 mg Q6H PRN PO 10/03/17 21:15 10/21/17 11:09 (Morphine Inj) 2 mg Q2H PRN IV PUSH 10/03/17 21:15 10/21/17 07:49 (Ativan Inj) 1 mg Q1H PRN IV PUSH 10/03/17 21:15 10/19/17 23:10 (Zofran Inj) 4 mg Q6H PRN IV PUSH 10/03/17 21:15 (Restoril) 15 mg HS PRN PO 10/03/17 21:15 (Duoneb Neb) 1 ampule Q2HR NEB PRN INH 10/03/17 21:15 10/20/17 21:56 Miscellaneous Information 1 Q361D XX 10/03/17 21:15 (Chlorhexidine 2% Cloth) Taper DAILY@04 TOP 10/04/17 04:00 09/30/18 03:59 10/18/17 04:00 (Chlorhexidine 2% Cloth) 3 pack UNSCH PRN TOP 10/03/17 21:15 (Renita-Colace) 1 tab BID PO 10/04/17 09:00 10/21/17 07:49 (Milk Of Magnesia Liq) 30 ml Q12H PRN PO 10/03/17 21:15 10/11/17 08:39 (Senokot) 17.2 mg Q12H PRN PO 10/03/17 21:15 (Dulcolax Supp) 10 mg DAILY PRN RECTAL 10/03/17 21:15 10/11/17 17:08 (Lactulose Liq) 30 ml DAILY PRN PO 10/03/17 21:15 10/11/17 17:08 (Flovent Hfa 44 Mcg Inh) 2 puff BID INH 10/04/17 09:00 10/21/17 07:50 (Robaxin) 500 mg QID PO 10/04/17 09:00 10/21/17 07:49 Acetaminophen 100 ml @ 400 mls/hr Q6H PRN IV 10/04/17 12:00 10/17/17 19:51 (Peridex 0.12% Liq) 15 ml BID@08,20 MT 10/04/17 20:00 10/19/17 08:23 (Beneprotein Powder) 2 pack TID OG-TUBE 10/05/17 13:00 10/19/17 08:22 Vasopressin 40 units/Dextrose 100 ml @ 6 mls/hr [id number] IV 10/06/17 09:00 Albumin Human 100 ml @ 60 mls/hr Q12H IV 10/07/17 10:00 10/21/17 10:27 (Rifampin) 300 mg Q12HR PO 10/08/17 11:30 10/20/17 18:59 Sodium Chloride 1,000 ml @ 0 mls/hr Q0M PRN OTHER 10/08/17 10:33 10/17/17 14:00 (Heparin Inj) 8,000 units UNSCH PRN IV FLUSH 10/08/17 10:45 Sodium Chloride 1,000 ml @ 200 mls/hr Q5H PRN IV 10/08/17 11:15 10/11/17 08:57 Sodium Chloride 1,000 ml @ 0 mls/hr Q0M PRN OTHER 10/08/17 11:15 (Mannitol Inj) 12.5 gm UNSCH PRN IV 10/08/17 11:15 Albumin Human 100 ml @ 60 mls/hr UNSCH PRN IV 10/08/17 11:30 10/16/17 14:55 (NS Flush) 5 ml UNSCH PRN IV FLUSH 10/08/17 11:15 10/18/17 11:26 (Heparin Inj) UNSCH PRN .XX 10/08/17 11:15 10/21/17 10:28 (Gentamicin Inj) 20 mg UNSCH PRN OTHER 10/08/17 11:15 10/21/17 10:28 (Zofran Inj) 4 mg UNSCH PRN IV PUSH 10/08/17 11:15 (Tylenol) 650 mg UNSCH PRN PO 10/08/17 11:15 (Benadryl) 25 mg UNSCH PRN PO 10/08/17 11:15 (Nitrostat Sl) 0.4 mg UNSCH PRN SL 10/08/17 11:30 (Catapres) 0.1 mg UNSCH PRN PO 10/08/17 11:30 (Epogen Inj) 10,000 units UNSCH PRN IV PUSH 10/08/17 11:30 10/21/17 10:28 (Gelfoam 12 Mm/7 Mm Top) 1 foam UNSCH PRN TOP 10/08/17 11:30 (Protonix Inj) 40 mg Q12HR IV PUSH 10/09/17 12:45 10/21/17 07:49 (Lacrilube Opht Oint) 1 applic Q12HR EACH EYE 10/11/17 14:30 10/21/17 07:49 (Lactinex) 1 tab TID PO 10/17/17 13:00 10/21/17 07:49 (Vancomycin 25 Mg/ml Liq) 125 mg QID PO 10/17/17 13:00 10/21/17 07:47 (Duragesic 100 Mcg Patch.72 Hr) 1 patch Q3D T-DERMAL 10/18/17 12:00 10/21/17 11:09 (Duoneb Neb) 1 ampule Q12HR NEB NEB 10/18/17 20:00 10/21/17 06:21 (fentaNYL INJ) 25 mcg Q1H PRN IV PUSH 10/18/17 11:00 Miscellaneous Information 1 Q3D T-DERMAL 10/21/17 12:00 Cefazolin Sodium 1000 mg/Sodium Chloride 100 ml @ 200 mls/hr Q8H IV 10/19/17 14:00 10/21/17 05:03 (Lopressor) 50 mg Q8HR PO 10/20/17 14:00 10/21/17 05:03 (Santyl Oint) 1 applic DAILY TOPICAL 10/20/17 16:00 10/20/17 16:45 Lines Line sites with no e.o infection Past Medical History Asthma HCV Past Surgical History No surgical history per records. Allergies: Coded Allergies: erythromycin base (Verified Allergy, Severe, Nausea/Vomiting, 10/03/17) raspberry (Unverified Allergy, Mild, 10/03/17) Objective . Vital Signs Date Time Temp Pulse Resp B/P (MAP) Pulse Ox O2 Delivery O2 Flow Rate FiO2 10/22/17 09:08 27 10/22/17 07:54 95 Nasal Cannula 3.00 10/22/17 06:00 113 10/22/17 04:00 98.6 117 33 103/69 (80) 98 10/22/17 04:00 117 10/22/17 02:00 123 10/22/17 00:00 99.9 121 30 140/75 (96) 97 10/22/17 00:00 121 10/21/17 22:00 117 10/21/17 20:22 99 Nasal Cannula 3.00 10/21/17 20:00 99.7 112 19 129/80 (96) 98 10/21/17 20:00 112 10/21/17 18:00 114 10/21/17 17:01 111 29 178/101 (126) 93 10/21/17 17:00 111 10/21/17 17:00 111 22 89 10/21/17 16:45 111 25 156/81 (106) 97 10/21/17 16:33 100 Nasal Cannula 3.00 10/21/17 16:30 97.0 109 26 144/80 (101) 100 10/21/17 16:15 110 23 140/88 (105) 98 10/21/17 16:00 111 23 145/85 (105) 99 10/21/17 16:00 111 10/21/17 15:45 113 23 140/87 (104) 98 10/21/17 15:30 113 26 141/82 (101) 99 10/21/17 15:15 114 25 133/76 (95) 98 10/21/17 15:00 112 24 140/89 (106) 100 10/21/17 14:45 113 22 142/85 (104) 100 10/21/17 14:30 114 11 140/86 (104) 100 10/21/17 14:00 117 22 152/76 (101) 97 10/21/17 14:00 117 10/21/17 13:30 24 10/21/17 13:00 117 10/21/17 13:00 117 28 141/75 (97) 100 . Laboratory Tests Test 10/21/17 13:06 10/22/17 07:25 White Blood Count 14.4 TH/MM3 13.7 TH/MM3 Red Blood Count 2.77 MIL/MM3 2.50 MIL/MM3 Hemoglobin 8.2 GM/DL 7.4 GM/DL Hematocrit 23.6 % 21.5 % Mean Corpuscular Volume 85.1 FL 86.0 FL Mean Corpuscular Hemoglobin 29.6 PG 29.5 PG Mean Corpuscular Hemoglobin Concent 34.8 % 34.3 % Red Cell Distribution Width 19.3 % 19.6 % Platelet Count 233 TH/MM3 182 TH/MM3 Mean Platelet Volume 7.7 FL 7.8 FL Neutrophils (%) (Auto) 80.8 % 77.6 % Lymphocytes (%) (Auto) 6.6 % 6.9 % Monocytes (%) (Auto) 8.0 % 10.0 % Eosinophils (%) (Auto) 2.1 % 3.2 % Basophils (%) (Auto) 2.5 % 2.3 % Neutrophils # (Auto) 11.6 TH/MM3 10.6 TH/MM3 Lymphocytes # (Auto) 1.0 TH/MM3 0.9 TH/MM3 Monocytes # (Auto) 1.1 TH/MM3 1.4 TH/MM3 Eosinophils # (Auto) 0.3 TH/MM3 0.4 TH/MM3 Basophils # (Auto) 0.4 TH/MM3 0.3 TH/MM3 CBC Comment AUTO DIFF DIFF FINAL Differential Comment AUTO DIFF CONFIRMED Toxic Granulation 1+ Platelet Estimate NORMAL Platelet Morphology Comment NORMAL Laboratory Tests Test 10/21/17 13:06 10/22/17 07:25 Blood Urea Nitrogen 45 MG/DL 55 MG/DL Creatinine 4.03 MG/DL 5.14 MG/DL Random Glucose 117 MG/DL 91 MG/DL Total Protein 9.0 GM/DL Albumin 3.5 GM/DL 3.0 GM/DL Calcium Level 8.8 MG/DL 8.7 MG/DL Alkaline Phosphatase 78 U/L Aspartate Amino Transf (AST/SGOT) 42 U/L Alanine Aminotransferase (ALT/SGPT) LESS THAN 6 U/L Total Bilirubin 2.0 MG/DL Sodium Level 131 MEQ/L 127 MEQ/L Potassium Level 3.4 MEQ/L 3.9 MEQ/L Chloride Level 92 MEQ/L 89 MEQ/L Carbon Dioxide Level 29.6 MEQ/L 27.9 MEQ/L Anion Gap 9 MEQ/L 10 MEQ/L Estimat Glomerular Filtration Rate 18 ML/MIN 14 ML/MIN Phosphorus Level 5.2 MG/DL Magnesium Level 1.9 MG/DL Imaging Last Impressions Chest X-Ray 10/16/17 0600 Signed Impressions: Service Date/Time: September 04:06 - CONCLUSION: 1. Cardiomegaly with airspace disease and apparent small effusions most characteristic of congestive heart failure. Jorge Jang MD Chest CT 10/14/17 0000 Signed Impressions: Service Date/Time: Saturday, October 14, 2017 00:26 - CONCLUSION: 1. Bilateral scattered pulmonary nodules are again noted. Several of the right nodules are now cavitary and likely represent septic emboli given the history of IV drug abuse. 2. Interval placement of bilateral chest tubes with small pleural effusions noted. 3. Dense consolidation remains in the posterior lower lobes. Jorge Jang MD Abdomen/Pelvis CT 10/14/17 0000 Signed Impressions: Service Date/Time: Saturday, October 14, 2017 16:39 - CONCLUSION: No new or acute intra-abdominal or pelvic findings. Madi Mccartney MD Upper Extremity Ultrasound 10/13/17 0000 Signed Impressions: Service Date/Time: Friday, October 13, 2017 11:25 - CONCLUSION: Normal examination. Christian Kaur MD Abdomen X-Ray 10/10/17 0000 Signed Impressions: Service Date/Time: Tuesday, October 10, 2017 16:46 - CONCLUSION: Negative for free air or obstruction. Rahul Yarbrough MD FACR Chest Tube Insertion 10/06/17 0000 Signed Impressions: Service Date/Time: Friday, October 06, 2017 15:37 - CONCLUSION: Uncomplicated chest tube placement as above. Emerson Hui MD Physical Exam GENERAL: Awake, and following commands, on nasal O2, NAD SKIN: No rashes. Cool and dry. Multiple tattoos. HEAD: Atraumatic. Normocephalic. No temporal or scalp tenderness. EYES: Pupils equal round and reactive. Extraocular motions intact. No petechia, no hemorrhage ENT: Moist oral mucosa, no nasal drainage NECK: Trachea midline. Supple, nontender, no meningeal signs. CARDIOVASCULAR: Has systolic murmur RESPIRATORY: Decreased air entry bilaterally bases. Rt CT in place GASTROINTESTINAL: Abdomen soft, not tender, (+) BS MUSCULOSKELETAL: Extremities without clubbing, cyanosis. Mild pedal edema. No embolic lesion seen. NEUROLOGICAL: Awake, follows commands Psych cooperative IV line sites with no e.o infection. 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 Pneumonia: septic emboli, aspiration pneumonia. Respiratory failure, self extubated 10/17 IVDA: heroin, cocaine and methamphetamine. Acute renal failure: Sepsis, meds,contrast. - on HD Recs: Continue Ancef IV Continue Rifampin oral. Follow cultures Monitor progress Monitor respiratory status D/W Lakia Colby MD Oct 22, 2017 12:34
--- NOTE | 2017-10-22 14:40 | HHI.CCPN ---
Subjective Remarks/Hospital Course 27-year-old male with remote history of IV drug abuse, states he last used heroin 2 months ago, presents for evaluation of 8 days of body aches, 7 days of diarrhea with development of subjective fever yesterday. Patient denies any nausea or vomiting. He denies any chest pain. States that he is short of breath and feels anxious. This has developed within the last 24 hours. Patient does have a cough with clear sputum. Denies any prior history of endocarditis. Denies any abdominal pain. Does report some left back pain, worse while lying flat. He is well reports generalized weakness. 10/04/17: He is critically ill, remains febrile up to 103, tachycardic diaphoretic. large tricuspid valve vegetation on bedside echo, formal echo pending. Infectious disease consulted, CT surgery consult ordered. D/W Dr. Macias and Dr. Charles. CARMEN/in house counsel consult ordered. Hb 6.6 getting 2U PRBC 10/05: Remains critically ill intubated sedated. TE on yesterday TEF 40-45%. Large mobile vegetation noted on the tricuspid valve, may be 2 separate vegetations, measures overall 4cm x 1.7cm. Probable mobile density noted on the pulmonic valve. CT of the chest shows extensive septic emboli and consolidation , with loculated appearing effusion on the left base. Dr. Charles CT surgery recommends 4-6 weeks of IV antibiotics followed by repeat echo, considering surgery at that time if no improvement 10/06: Worsening CXR, with bibasilar worsening infiltrates and effusion. IR to place CT-guided left chest tube today for loculated effusion. Fluid overloaded approximately 8 kg. IV Lasix 40 mg x1. MSSA bacteremia persists 10/07: Remains intubated sedated remains critical severe volume overload with worsening renal function creatinine 3, weight up by at least [address] him on Bumex infusion and consult nephrology. Patient remains slightly oliguric 800 mL urine output in 24 hours. Chest x-ray showed bilateral infiltrates and worsening right effusion 10/08: Remains intubated heavily sedated oliguric. Continues to have positive fluid balance creatinine increased to 4.3. Hemoglobin 6.9. Currently on Bumex infusion with not adequate response. Persistently bacteremic. Bilateral infiltrates on chest x-ray with moderate right effusion 10/09: Intubated sedated remains severely fluid overloaded started on hemodialysis yesterday with 4 L removed still positive fluid balance. Hemoglobin 6.81 unit PRBC transfusion ordered along with calcium replacement. GI consulted for further workup. Large pleural effusion on right side plan for pigtail chest tube placement 10/10: Intubated sedated. Had HD with 25L removed yesterday. right chest tube placed yesterday 1.2 L of old blood tinged effusion drained-Gram stain negative. Chest x-ray shows improvement in effusion. Remains severely fluid overloaded still remains 16-17 kg up. Discussed with nephrology plan for HD with maximum fluid removal as tolerated 10/11: The patient continues on sedation intubated, opens eyes spontaneously, not follow commands. The patient underwent hemodialysis yesterday approximately 3 L off. Bilateral chest tubes no leak noted. Minimal output left chest tube. 10/12: Daily sedation vacation initiated, opens eyes spontaneously, and following commands as squeezing hands bilaterally. Movement of lower extremities. She noted to have very thick secretions. Hemodialysis performed yesterday, approximately 3 L off. Patient noted to have thick copious secretions from airway, with worsening airspace disease on the right. Gen. surgery consulted for tracheostomy. 10/13: Patient remains critically ill opens eyes and follows commands on sedation hold. Did not tolerate CPAP trial today. Cancelled gen surgery consult for trach due to possible need for valve surgery. Continues to spike fever. Plan for changing line today 10/14: Plan for removal of vas catheter today, and to be replaced on . CT of the abdomen and pelvis pending. The patient was noted to have a drop in hemoglobin to 6.9 patient being transfused 1 unit of packed red blood cells. Left chest tube TPA instilled per IR serosanguineous drainage from left chest tube. Right chest tube placed to waterseal. 10/15: Afebrile. Patient continues on CPAP this am > 3 hours currently. Patient following commands. Discussed with Gen. Surgery, Ms. Zelaya to continue CPAP trials today. Per General Surgery conversation with CTS, Dr. Charles, if patient continues to fail CPAP trials, ok'd with CTS for tracheostomy. Pt received 1 u PRBC yesterday, Hgb, stable. 10/16: Tolerated CPAP 12/5 for several hours but still remains very fluid overloaded. Vas-Cath removed 10/14/17, will place new VasCath today for HD. Attempt maximum fluid removal. Blood cultures from 10/13 remains negative, but still spiking fever T-max 102.1 10/17: Patient tolerating CPAP better today at 10/5. Fever trending down. Hemoglobin dropped to 6.7. Plan was to do hemodialysis with maximum fluid removal and then extubated but patient ended up self extubating. I have discussed with Dr. Tapia who will dialyze today 10/18: Extubated yesterday tolerating well respiratory acosta. Getting hemodialysis today with target removal of 3.5 L. Urine output is 400 mL in 24 hours. Bilateral chest tube output minimal. Hemoglobin remaining stable. Bedside echo shows large essentially unchanged TV vegetation 10/19: Patient is breathing comfortably had hemodialysis yesterday with 3 L removed. Urine output 400 mL approximately in 24 hours. Bedside echo shows unchanged size and the tricuspid regurgitation. I discussed with Dr. Charles today-he is declining surgery due to active drug use, however will contact in no acute floor against tomorrow to see whether they will perform tricuspid valve surgery. If declined at [place] I will attempt [facility] for transfer 10/20: Breathing comfortably, but tearful emotional, hemodialysis plan for today. Creatinine slightly worsened urine output approximately 400 mL in 24 hours. Left chest tube to be removed by IR today. Waiting to hear back from [facility] regarding transfer for valve surgery. Declined by our thoracic surgeon due to active drug use and multiple complications 10/21: T-max 100.4. Currently 100. Resting in bed on nasal cannula in no acute distress. Receiving hemodialysis today Objective Vital Signs Date Time Temp Pulse Resp B/P (MAP) Pulse Ox O2 Delivery O2 Flow Rate FiO2 10/22/17 09:08 27 10/22/17 07:54 95 Nasal Cannula 3.00 10/22/17 06:00 113 10/22/17 04:00 98.6 103/69 (80) Intake and Output 10/22/17 10/22/17 10/22/17 07:59 15:59 23:59 Intake Total 1060 ml Output Total 25 ml Balance 1035 ml Result Diagram: 10/22/17 0725 10/22/17 0725 Imaging Last Impressions Chest X-Ray 10/20/17 1230 Signed Impressions: Service Date/Time: Friday, October 20, 2017 12:42 - CONCLUSION: No pneumothorax Madi Mccartney MD Tunnelled Chest Tube Removal 10/20/17 0000 Signed Impressions: Service Date/Time: Friday, October 20, 2017 00:00 - CONCLUSION: Uncomplicated chest tube removal. Madi Mccartney MD Chest CT 10/14/17 0000 Signed Impressions: Service Date/Time: Saturday, October 14, 2017 00:26 - CONCLUSION: 1. Bilateral scattered pulmonary nodules are again noted. Several of the right nodules are now cavitary and likely represent septic emboli given the history of IV drug abuse. 2. Interval placement of bilateral chest tubes with small pleural effusions noted. 3. Dense consolidation remains in the posterior lower lobes. Jorge Jang MD Abdomen/Pelvis CT 10/14/17 0000 Signed Impressions: Service Date/Time: Saturday, October 14, 2017 16:39 - CONCLUSION: No new or acute intra-abdominal or pelvic findings. Madi Mccartney MD Upper Extremity Ultrasound 10/13/17 0000 Signed Impressions: Service Date/Time: Friday, October 13, 2017 11:25 - CONCLUSION: Normal examination. Christian Kaur MD Abdomen X-Ray 10/10/17 0000 Signed Impressions: Service Date/Time: Tuesday, October 10, 2017 16:46 - CONCLUSION: Negative for free air or obstruction. Rahul Yarbrough MD FACR Chest Tube Insertion 10/06/17 0000 Signed Impressions: Service Date/Time: Friday, October 06, 2017 15:37 - CONCLUSION: Uncomplicated chest tube placement as above. Emerson Hui MD Objective Remarks GENERAL: 27-year-old male resting in bed in no acute distress on nasal cannula SKIN: Warm and dry. Extensive tattoos limits skin exam. Anasarca. Positive carrera HEAD: Normocephalic. EYES: No scleral icterus. No injection or drainage. Slight periorbital edema noted. ENT: Oral cavity moist NECK: Supple, trachea midline. No JVD or lymphadenopathy. RIJ Vascath in place. Clean dry and intact CARDIOVASCULAR: S1-S2 no S4.. 2 out of 6 systolic murmur at the left sternal border. Large TV vegetation on bedside echo, on admission and 10/18/17 RESPIRATORY: Air entry is equal bilaterally, coarse rhonchi and crackles. Left pig tail chest tubes in place. Minimal output GASTROINTESTINAL: Abdomen soft, non-tender, nondistended. MUSCULOSKELETAL: Positive anasarca NEURO EXAM: Alert awake oriented, Pupils are round, reactive to light. Moving all extremities follows commands no focal deficit A/P Assessment and Plan Neuro/Psych IVDU Acetaminophen 650 mg p.o. every 6 hours as needed fever Hydrocodone/acetaminophen 5/325 1 tablet every 4 hours as needed pain 1 through 5 Morphine sulfate 2 mg IV every 2 hours as needed pain 6 or 10 - Continue Fentanyl patch 75 mcg every 72 hours Resp: Acute hypoxemic respiratory failure, improved Extensive septic emboli, consolidation of the lung Loculated left effusion, large right effusion - Extubated 10/17 (Self extubated while on CPAP for planned extubation) - IR placed left chest tube 10/06 with more than 1 L exudative fluid out. Removed 10/20 - Dr. Barraza placed right-sided pigtail chest tube at the bedside 10/09, brown tinged fluid approximately 1.1 L initial output, now output is minimum - Removed right chest tube 10/18/17. - Broad-spectrum antibiotics per ID, see below - Nasal cannula to maintain saturations greater than equal to 92% - Incentive spirometry while awake - Albuterol/ipratropium aerosols every 6 hours while awake with albuterol aerosols every 2 hours. Dyspnea - EzPAP - Fluticasone 44 mcg inhalation twice daily CVS: Large tricuspid valve vegetation Small pericardial effusion Acute systolic heart failure Mild pulmonary hypertension - Bedside echo shows large tricuspid vegetation. repeat bedside echo today 10/18 similar size - Cardiology and CT surgery has followed. D/W Dr. Charles declined surgery due to active IV drug use, multiple medical complications. Await input from [facility] - CARMEN 10/04: EF 45-50 %. Large mobile vegetation on tricuspid valve, 2 separate vegetations 2.1 x 3.2 cm and 2.6 x 0.8 cm. PIP 40.7 mmHg -Echo 10/20 -EF 35-40%. Tricuspid valve education 1 3.3 potential 0.9 and 11.9 cm Currently on metoprolol tartrate 50 mg p.o. every 8 hours GI: Hepatosplenomegaly Diarrhea Hypoalbuminemia Hepatitis C reactive genotype pending. Viral load 10,700 Elevated ceruloplasmin MARTÍN +40 diffuse Elevated total bilirubin Elevated AST -Pantoprazole 40 mg p.o. twice daily due to persistent anemia. GI f is followed currently signed off - Swallow eval and diet per speech recommendation - Hepatitis C reactive. Genotype pending. Viral load 10,700 -Renal diet -Docusate sodium/senna 1 tablet twice daily for bowel regimen Renal/: Acute kidney failure with fluid overload - Started hemodialysis 10/08,above. - Continue intermittent HD for fluid removal. -5 L today 10/21 - Strict I's and O's, Monitor trend of creatinine - Replace electrolytes as clinically indicated - 10/14-removed vas catheter. Replaced on 10/16 ID: Tricuspid and pulmonic valve endocarditis Septic emboli to the lung Severe sepsis MSSA bacteremia - Discussed with Dr. Charles [place] surgery 10/05/17, 10/19, deemed not a surgical candidate, await input from [facility] - Cefazolin, Rifampin per ID Dr. Macias. 10/22 discontinued vancomycin 125 mg 4 times daily - Persistent MSSA bacteremia 10/04, 10/05 10/07 blood cultures, cultures reviewed. Blood cultures from 10/13 negative, fever trending down now Endo: -Electrolyte replacement per protocol Heme: Anemia requiring transfusion Leukocytosis Normocytic anemia - Transfuse PRBC to keep Hb>7.0 - LDH mildly elevated and haptoglobin normal, Transfusion 1u PRBC on 10/14, 10/17 - Monitor CBC, Coags - Thrombocytopenia most likely from sepsis and DIC has resolved -Epogen 10,000 units as needed with hemodialysis MSK: PT evaluate and treat FEN: Replace electrolytes as clinically indicated DVT GI prophylaxis - TEDs SCDs - Started Heparin 5000 U sq q12-DCD 10/17 due to persistent anemia requiring transfusion Restart 10/21 -Pantoprazole 40 q12 Level 2 follow-up Danny Marie MD Oct 22, 2017 14:40
[2017-10-22] MEDS: ACETAMINOPHEN 325 MG TAB PO PRN (16:40)
[2017-10-22] MEDS ORDERED: ALBUMIN 5% INJ 500 ML IV ONE (17:15)
[2017-10-22] MEDS ORDERED: SODIUM CHLOR 0.9% 1000 ML INJ 1,000 ML IV ONE (17:15)
[2017-10-23] VITALS (15 sets, daily range): BP systolic 85–119; BP diastolic 51–74; PULSE 101–134; RESP 20–30; TEMP 97.7–100.1; O2SAT 86–100
[2017-10-23] MEDS: MORPHINE SULFATE 4 MG/ML INJ IV PUSH PRN ×6 (02:39→20:32)
[2017-10-23] MEDS: CHLORHEXIDINE GLUCONATE 2 % 1 PACK (2 CLOTHS) TOP SCH (02:46)
[2017-10-23 04:19] LABS: AUTOMATED NEUTROPHIL # 10.9 TH/MM3 (1.8-7.7); BASOPHIL # 0.2 TH/MM3 (0-0.2); BASOPHIL % 1.3 % (0.0-2.0); EOSINOPHIL # 0.4 TH/MM3 (0-0.4); EOSINOPHIL % 2.7 % (0.0-4.0); LYMPH % 7.7 % (9.0-44.0); MEAN CELL VOLUME 85.7 FL (80.0-100.0); MEAN CORPUSCULAR HEMOGLOBIN 29.4 PG (27.0-34.0); MEAN CORPUSCULAR HGB CONC 34.3 % (32.0-36.0); MONO % 8.5 % (0.0-8.0); MONOCYTE # 1.2 TH/MM3 (0-0.9); NEUT % 79.8 % (16.0-70.0); PLATELET COUNT 133 TH/MM3 (150-450); RED BLOOD COUNT 2.35 MIL/MM3 (4.50-5.90); RED CELL DISTRIBUTION WIDTH 19.6 % (11.6-17.2); WHITE BLOOD COUNT 13.6 TH/MM3 (4.0-11.0)
[2017-10-23 04:28] LABS: HEMATOCRIT 20.2 % (39.0-51.0); HEMOGLOBIN 6.9 GM/DL (13.0-17.0)
[2017-10-23 04:48] LABS: BICARBONATE 24.5 MEQ/L (21.0-32.0); CALCIUM 8.9 MG/DL (8.5-10.1); CREATININE 5.99 MG/DL (0.60-1.30); MAGNESIUM 1.7 MG/DL (1.5-2.5); PHOSPHORUS 6.4 MG/DL (2.5-4.9)
--- NOTE | 2017-10-23 04:49 | RADRPT ---
EXAM DATE/TIME: 10/23/2017 03:31 [place] COMPARISON: CHEST EXPIRATION ONLY, October 20, 2017, 15:37. CHEST SINGLE AP, October 20, 2017, 3:39. INDICATIONS : Shortness of breath, possible pulmonary disease. MEDICAL HISTORY : Sepsis. SURGICAL HISTORY : None. ENCOUNTER: Subsequent ACUITY: 2 weeks PAIN SCORE: Non-responsive. LOCATION: Bilateral chest FINDINGS: Stable right IJ temporary dialysis catheter. Cardiac silhouette is enlarged with patchy bilateral mid to lower lung zone airspace disease. No significant pneumothorax. Remainder of exam is unchanged. CONCLUSION: 1. Stable patchy bilateral mid to lower lung zone airspace disease. 2. Cardiomegaly with mild positive fluid balance. 3. No significant interval change. Emerson Hui MD on October 23, 2017 at 4:46 Board Certified Radiologist. This report was verified electronically.
[2017-10-23] MEDS: METOPROLOL TARTRATE 25 MG TAB PO SCH ×3 (07:09→21:49)
[2017-10-23] MEDS: CHLORHEXIDINE 0.12% (ORAL KIT) 15 ML CUP MT SCH ×2 (08:00→20:00)
[2017-10-23] MEDS: LACTOBACILLUS ACIDOPHILUS TAB PO SCH ×3 (08:33→17:28)
[2017-10-23] MEDS: METHOCARBAMOL 500 MG TAB PO SCH ×4 (08:33→20:30)
[2017-10-23] MEDS: DOCUSATE SODIUM 50 MG/SENNA 8.6 MG TAB PO SCH ×2 (08:33→20:29)
[2017-10-23] MEDS: ACETAMINOPHEN/HYDROcodone 325 MG/5 MG TAB PO PRN ×2 (08:33→16:36)
[2017-10-23] MEDS: PANTOPRAZOLE SOD 40 MG DELAYED RELEASE TAB PO SCH ×2 (08:33→20:31)
[2017-10-23] MEDS: SODIUM CHLORIDE 0.9% FLUSH 10 ML FLUSH IV FLUSH SCH ×2 (08:34→20:30)
[2017-10-23] MEDS: COLLAGENASE OINT 30 GM TUBE TOPICAL SCH (08:34)
[2017-10-23] MEDS: ACETAMINOPHEN 325 MG TAB PO PRN (08:34)
[2017-10-23] MEDS: HEPARIN SODIUM - SQ 10,000 UNITS/ML VIAL SQ SCH ×2 (08:34→20:31)
[2017-10-23] MEDS: FLUTICASONE PROPIONATE 44 MCG/ACT 10.6 GM INHALER INH SCH ×2 (08:34→21:49)
[2017-10-23] MEDS: RIFAMPIN 150 MG CAP PO SCH ×2 (08:42→20:30)
[2017-10-23] MEDS: RESP: ALBUTEROL 2.5 MG/IPRATROPIUM 0.5 MG NEB (SCH) NEB ×3 (08:49→20:48)
--- NOTE | 2017-10-23 09:41 | HHI.NPPN ---
Subjective History of Present Illness Patient is 27-year-old male who reported to ER with body aches, 7 days of diarrhea with development fever. Past medical history of IV drug use. Patient is sedated and ventilated FiO2 at 40 %. Nephrology is consulted for ZEUS and fluid over load status. Patients creatinine is 3.02 and GFR 25ml/min. Patient is UOP at 800cc for last 24 hours. Weight has increased by over 10 kg since admission. IVF's have been stopped and lasix has been given. Patient has endocarditis with large tricuspid valve vegetation, and pulmonic vegetation. Noted to have bacteremia with hypotension with SBP in the 90's. Additional Remarks OOB in chair eating breakfast. Continues to feel SOB. Edema is improving (Venus Barrett) Review of Systems Respiratory Lungs: SOB (Venus Barrett) Cardiovascular Cardiac Remarks denies CP (Venus Barrett) Psych Psych: Depression, Anxiety (Venus Barrett) Objective Data Data 10/23/17 10/24/17 19:00 07:00 Intake Total 100 ml Balance 100 ml IV Total 100 ml Vital Signs Date Time Temp Pulse Resp B/P (MAP) Pulse Ox O2 Delivery O2 Flow Rate FiO2 10/23/17 08:52 98 Nasal Cannula 3.00 10/23/17 06:38 31 10/23/17 06:00 134 10/23/17 04:00 123 10/23/17 04:00 98.1 123 30 95/66 (76) 91 10/23/17 03:34 98.1 120 22 105/67 95 10/23/17 02:00 117 10/23/17 00:00 124 10/23/17 00:00 100.0 124 20 85/51 (62) 95 10/22/17 22:00 133 10/22/17 20:00 120 10/22/17 20:00 100.1 120 28 103/58 (73) 92 10/22/17 19:57 98 Nasal Cannula 3.00 10/22/17 18:00 116 10/22/17 17:40 18 10/22/17 16:00 123 10/22/17 16:00 12 10/22/17 16:00 100.0 123 27 93/53 (66) 96 10/22/17 14:00 126 2/28/18 13:52 27 10/22/17 12:00 100.2 118 30 106/63 (77) 98 10/22/17 12:00 118 10/22/17 10:00 118 (Venus Barrett) -: 10/23/17 0325 10/23/17 0325 Imaging Last Impressions Chest X-Ray 10/23/17 0600 Signed Impressions: Service Date/Time: October 03:31 - CONCLUSION: 1. Stable patchy bilateral mid to lower lung zone airspace disease. 2. Cardiomegaly with mild positive fluid balance. 3. No significant interval change. Emerson Hui MD Tunnelled Chest Tube Removal 10/20/17 0000 Signed Impressions: Service Date/Time: Friday, October 20, 2017 00:00 - CONCLUSION: Uncomplicated chest tube removal. Madi Mccartney MD Chest CT 10/14/17 0000 Signed Impressions: Service Date/Time: Saturday, October 14, 2017 00:26 - CONCLUSION: 1. Bilateral scattered pulmonary nodules are again noted. Several of the right nodules are now cavitary and likely represent septic emboli given the history of IV drug abuse. 2. Interval placement of bilateral chest tubes with small pleural effusions noted. 3. Dense consolidation remains in the posterior lower lobes. Jorge Jang MD Abdomen/Pelvis CT 10/14/17 0000 Signed Impressions: Service Date/Time: Saturday, October 14, 2017 16:39 - CONCLUSION: No new or acute intra-abdominal or pelvic findings. Madi Mccartney MD Upper Extremity Ultrasound 10/13/17 0000 Signed Impressions: Service Date/Time: Friday, October 13, 2017 11:25 - CONCLUSION: Normal examination. Christian Kaur MD Abdomen X-Ray 10/10/17 0000 Signed Impressions: Service Date/Time: Tuesday, October 10, 2017 16:46 - CONCLUSION: Negative for free air or obstruction. Rahul Yarbrough MD FACR Chest Tube Insertion 10/06/17 0000 Signed Impressions: Service Date/Time: Friday, October 06, 2017 15:37 - CONCLUSION: Uncomplicated chest tube placement as above. Emerson Hui MD (Venus Barrett) Physical Exam General Appearance: No Acute Distress, Comfortable (Venus BarrettP) Eyes Eye Exam: Pupils Equal (Venus Barrett) Pulmonary Resp Exam: Decreased Bases, Diminished Breath Sounds, Poor Inspiratory Effort (Venus Barrett) Cardiology CV Exam: Tachycardia (Venus BarrettP) Gastrointestinal/Abdomen GI Exam: Soft, Non-Tender, Bowel Sounds Present, Distended (Venus BarrettP) Integumentary Skin Exam: Clear, Warm (Venus Barrett) Extremeties Extremities Exam: Moderate Edema (Venus BarrettP) Neurologic Neuro Exam: Awake (Venus Barrett) Assessment/Plan Problem List: (1) ZEUS (acute kidney injury) ICD Codes: N17.9 - Acute kidney failure, unspecified Plan: ZEUS most likely ATN from sepsis and low blood pressure. Other differential will be ATN, Acute interstitial nephritis, and Post infectious GN,unlikely. Creatinine increasing at 5.99 and potassium WNL PO4 increased at 6.4 will order phoslo HGB dropped to 6.9 yesterday transfused PRBC Epogen with dialysis Hyponatremia with sodium level of 126 today Will continue to monitor labs and urinary output Dialysis today (2) Sepsis ICD Codes: A41.9 - Sepsis, unspecified organism Status: Acute Plan: Antibiotics per ID (3) Endocarditis ICD Codes: I38 - Endocarditis, valve unspecified Status: Acute (Venus BarrettP) Problem List: (1) ZEUS (acute kidney injury) ICD Codes: N17.9 - Acute kidney failure, unspecified Plan: ZEUS most likely ATN from sepsis and low blood pressure. Other differential will be ATN, Acute interstitial nephritis, and Post infectious GN,unlikely. Creatinine increasing at 5.99 and potassium WNL PO4 increased at 6.4 will order phoslo HGB dropped to 6.9 yesterday transfused PRBC Epogen with dialysis Hyponatremia with sodium level of 126 today Will continue to monitor labs and urinary output Dialysis today. Patient seen and examined, agree with above. HD as needed. (2) Sepsis ICD Codes: A41.9 - Sepsis, unspecified organism Status: Acute Plan: Antibiotics per ID (3) Endocarditis ICD Codes: I38 - Endocarditis, valve unspecified Status: Acute (Darek Tapia MD) Problem Qualifiers (1) Sepsis: Qualified Codes: A41.9 - Sepsis, unspecified organism (2) Endocarditis: Venus Barrett Oct 23, 2017 09:41 Darek Tapia MD Oct 23, 2017 21:20
[2017-10-23] MEDS: ALBUMIN 25% INJ 100 ML IV PRN ×2 (10:00→10:15)
[2017-10-23 10:15] LABS: BASOPHIL # 0.2 TH/MM3 (0-0.2); BASOPHIL % 1.3 % (0.0-2.0); EOSINOPHIL # 0.2 TH/MM3 (0-0.4); EOSINOPHIL % 0.9 % (0.0-4.0); HEMATOCRIT 22.2 % (39.0-51.0); HEMOGLOBIN 7.5 GM/DL (13.0-17.0); LYMPH % 5.2 % (9.0-44.0); LYMPHOCYTE # 0.8 TH/MM3 (1.0-4.8); MEAN CELL VOLUME 84.3 FL (80.0-100.0); MEAN CORPUSCULAR HEMOGLOBIN 28.6 PG (27.0-34.0); MEAN PLATELET VOLUME 8.4 FL (7.0-11.0); MONO % 6.8 % (0.0-8.0); MONOCYTE # 1.1 TH/MM3 (0-0.9); NEUT % 85.8 % (16.0-70.0); PLATELET COUNT 151 TH/MM3 (150-450); RED BLOOD COUNT 2.63 MIL/MM3 (4.50-5.90); RED CELL DISTRIBUTION WIDTH 20.5 % (11.6-17.2); WHITE BLOOD COUNT 16.3 TH/MM3 (4.0-11.0)
[2017-10-23] MEDS: GENTAMICIN SULFATE 20 MG/2 ML VIAL OTHER PRN (12:13)
[2017-10-23] MEDS: EPOETIN ALFA 10,000 UNITS/ML VIAL IV PUSH PRN (12:14)
[2017-10-23] MEDS: HEPARIN SODIUM - IV 10,000 UNITS/10 ML VIAL PRN (12:14)
--- NOTE | 2017-10-23 12:23 | PD.CAR.PN ---
CVT Progress Note Subjective/Hospital Course: Awaiting response from . May need to approach Michael for possible tricuspid endocarditis surgery. Objective: Vital Signs Date Time Temp Pulse Resp B/P (MAP) Pulse Ox O2 Delivery O2 Flow Rate FiO2 10/23/17 12:00 97.7 101 21 106/53 (70) 88 10/23/17 12:00 101 10/23/17 10:00 109 10/23/17 09:29 27 10/23/17 09:29 27 10/23/17 09:29 27 10/23/17 08:52 98 Nasal Cannula 3.00 10/23/17 08:00 126 10/23/17 08:00 100.1 126 30 93/56 (68) 94 10/23/17 06:00 134 10/23/17 04:00 123 10/23/17 04:00 98.1 123 30 95/66 (76) 91 10/23/17 03:34 98.1 120 22 105/67 95 10/23/17 02:00 117 10/23/17 00:00 124 10/23/17 00:00 100.0 124 20 85/51 (62) 95 10/22/17 22:00 133 10/22/17 20:00 120 10/22/17 20:00 100.1 120 28 103/58 (73) 92 10/22/17 19:57 98 Nasal Cannula 3.00 10/22/17 18:00 116 10/22/17 16:00 123 10/22/17 16:00 12 10/22/17 16:00 100.0 123 27 93/53 (66) 96 10/22/17 14:00 126 Labs: Laboratory Tests Test 10/23/17 03:25 10/23/17 09:35 White Blood Count 13.6 TH/MM3 (4.0-11.0) 16.3 TH/MM3 (4.0-11.0) Red Blood Count 2.35 MIL/MM3 (4.50-5.90) 2.63 MIL/MM3 (4.50-5.90) Hemoglobin 6.9 GM/DL (13.0-17.0) 7.5 GM/DL (13.0-17.0) Hematocrit 20.2 % (39.0-51.0) 22.2 % (39.0-51.0) Mean Corpuscular Volume 85.7 FL (80.0-100.0) 84.3 FL (80.0-100.0) Mean Corpuscular Hemoglobin 29.4 PG (27.0-34.0) 28.6 PG (27.0-34.0) Mean Corpuscular Hemoglobin Concent 34.3 % (32.0-36.0) 34.0 % (32.0-36.0) Red Cell Distribution Width 19.6 % (11.6-17.2) 20.5 % (11.6-17.2) Platelet Count 133 TH/MM3 (150-450) 151 TH/MM3 (150-450) Mean Platelet Volume 8.0 FL (7.0-11.0) 8.4 FL (7.0-11.0) Neutrophils (%) (Auto) 79.8 % (16.0-70.0) 85.8 % (16.0-70.0) Lymphocytes (%) (Auto) 7.7 % (9.0-44.0) 5.2 % (9.0-44.0) Monocytes (%) (Auto) 8.5 % (0.0-8.0) 6.8 % (0.0-8.0) Eosinophils (%) (Auto) 2.7 % (0.0-4.0) 0.9 % (0.0-4.0) Basophils (%) (Auto) 1.3 % (0.0-2.0) 1.3 % (0.0-2.0) Neutrophils # (Auto) 10.9 TH/MM3 (1.8-7.7) 14.0 TH/MM3 (1.8-7.7) Lymphocytes # (Auto) 1.0 TH/MM3 (1.0-4.8) 0.8 TH/MM3 (1.0-4.8) Monocytes # (Auto) 1.2 TH/MM3 (0-0.9) 1.1 TH/MM3 (0-0.9) Eosinophils # (Auto) 0.4 TH/MM3 (0-0.4) 0.2 TH/MM3 (0-0.4) Basophils # (Auto) 0.2 TH/MM3 (0-0.2) 0.2 TH/MM3 (0-0.2) CBC Comment AUTO DIFF DIFF FINAL Differential Comment AUTO DIFF CONFIRMED Blood Urea Nitrogen 64 MG/DL (7-18) Creatinine 5.99 MG/DL (0.60-1.30) Random Glucose 85 MG/DL (74-106) Albumin 3.0 GM/DL (3.4-5.0) Calcium Level 8.9 MG/DL (8.5-10.1) Phosphorus Level 6.4 MG/DL (2.5-4.9) Magnesium Level 1.7 MG/DL (1.5-2.5) Sodium Level 126 MEQ/L (136-145) Potassium Level 4.3 MEQ/L (3.5-5.1) Chloride Level 88 MEQ/L (98-107) Carbon Dioxide Level 24.5 MEQ/L (21.0-32.0) Anion Gap 14 MEQ/L (5-15) Estimat Glomerular Filtration Rate 11 ML/MIN (>89) Result Diagram: 10/23/17 0935 10/23/17 0325 (1) Sepsis (2) Endocarditis (3) Tobacco abuse (4) IV drug abuse Problem Qualifiers (1) Sepsis: Qualified Codes: A41.9 - Sepsis, unspecified organism (2) Endocarditis: Adeline Charles MD Oct 23, 2017 12:23
[2017-10-23] MEDS: CALCIUM ACETATE 667 MG CAP PO SCH ×2 (13:06→17:29)
--- NOTE | 2017-10-23 15:00 | HHI.CCPN ---
Subjective Remarks/Hospital Course 27-year-old male with remote history of IV drug abuse, states he last used heroin 2 months ago, presents for evaluation of 8 days of body aches, 7 days of diarrhea with development of subjective fever yesterday. Patient denies any nausea or vomiting. He denies any chest pain. States that he is short of breath and feels anxious. This has developed within the last 24 hours. Patient does have a cough with clear sputum. Denies any prior history of endocarditis. Denies any abdominal pain. Does report some left back pain, worse while lying flat. He is well reports generalized weakness. 10/04/17: He is critically ill, remains febrile up to 103, tachycardic diaphoretic. large tricuspid valve vegetation on bedside echo, formal echo pending. Infectious disease consulted, CT surgery consult ordered. D/W Dr. Macias and Dr. Charles. CARMEN/in store marketing representative consult ordered. Hb 6.6 getting 2U PRBC 10/05: Remains critically ill intubated sedated. TE on yesterday TEF 40-45%. Large mobile vegetation noted on the tricuspid valve, may be 2 separate vegetations, measures overall 4cm x 1.7cm. Probable mobile density noted on the pulmonic valve. CT of the chest shows extensive septic emboli and consolidation , with loculated appearing effusion on the left base. Dr. Charles CT surgery recommends 4-6 weeks of IV antibiotics followed by repeat echo, considering surgery at that time if no improvement 10/06: Worsening CXR, with bibasilar worsening infiltrates and effusion. IR to place CT-guided left chest tube today for loculated effusion. Fluid overloaded approximately 8 kg. IV Lasix 40 mg x1. MSSA bacteremia persists 10/07: Remains intubated sedated remains critical severe volume overload with worsening renal function creatinine 3, weight up by at least [address] him on Bumex infusion and consult nephrology. Patient remains slightly oliguric 800 mL urine output in 24 hours. Chest x-ray showed bilateral infiltrates and worsening right effusion 10/08: Remains intubated heavily sedated oliguric. Continues to have positive fluid balance creatinine increased to 4.3. Hemoglobin 6.9. Currently on Bumex infusion with not adequate response. Persistently bacteremic. Bilateral infiltrates on chest x-ray with moderate right effusion 10/09: Intubated sedated remains severely fluid overloaded started on hemodialysis yesterday with 4 L removed still positive fluid balance. Hemoglobin 6.81 unit PRBC transfusion ordered along with calcium replacement. GI consulted for further workup. Large pleural effusion on right side plan for pigtail chest tube placement 10/10: Intubated sedated. Had HD with 25L removed yesterday. right chest tube placed yesterday 1.2 L of old blood tinged effusion drained-Gram stain negative. Chest x-ray shows improvement in effusion. Remains severely fluid overloaded still remains 16-17 kg up. Discussed with nephrology plan for HD with maximum fluid removal as tolerated 10/11: The patient continues on sedation intubated, opens eyes spontaneously, not follow commands. The patient underwent hemodialysis yesterday approximately 3 L off. Bilateral chest tubes no leak noted. Minimal output left chest tube. 10/12: Daily sedation vacation initiated, opens eyes spontaneously, and following commands as squeezing hands bilaterally. Movement of lower extremities. She noted to have very thick secretions. Hemodialysis performed yesterday, approximately 3 L off. Patient noted to have thick copious secretions from airway, with worsening airspace disease on the right. Gen. surgery consulted for tracheostomy. 10/13: Patient remains critically ill opens eyes and follows commands on sedation hold. Did not tolerate CPAP trial today. Cancelled gen surgery consult for trach due to possible need for valve surgery. Continues to spike fever. Plan for changing line today 10/14: Plan for removal of vas catheter today, and to be replaced on . CT of the abdomen and pelvis pending. The patient was noted to have a drop in hemoglobin to 6.9 patient being transfused 1 unit of packed red blood cells. Left chest tube TPA instilled per IR serosanguineous drainage from left chest tube. Right chest tube placed to waterseal. 10/15: Afebrile. Patient continues on CPAP this am > 3 hours currently. Patient following commands. Discussed with Gen. Surgery, Ms. Zelaya to continue CPAP trials today. Per General Surgery conversation with CTS, Dr. Charles, if patient continues to fail CPAP trials, ok'd with CTS for tracheostomy. Pt received 1 u PRBC yesterday, Hgb, stable. 10/16: Tolerated CPAP 12/5 for several hours but still remains very fluid overloaded. Vas-Cath removed 10/14/17, will place new VasCath today for HD. Attempt maximum fluid removal. Blood cultures from 10/13 remains negative, but still spiking fever T-max 102.1 10/17: Patient tolerating CPAP better today at 10/5. Fever trending down. Hemoglobin dropped to 6.7. Plan was to do hemodialysis with maximum fluid removal and then extubated but patient ended up self extubating. I have discussed with Dr. Tapia who will dialyze today 10/18: Extubated yesterday tolerating well respiratory acosta. Getting hemodialysis today with target removal of 3.5 L. Urine output is 400 mL in 24 hours. Bilateral chest tube output minimal. Hemoglobin remaining stable. Bedside echo shows large essentially unchanged TV vegetation 10/19: Patient is breathing comfortably had hemodialysis yesterday with 3 L removed. Urine output 400 mL approximately in 24 hours. Bedside echo shows unchanged size and the tricuspid regurgitation. I discussed with Dr. Charles today-he is declining surgery due to active drug use, however will contact in no acute floor against tomorrow to see whether they will perform tricuspid valve surgery. If declined at [facility] I will attempt [facility] for transfer 10/20: Breathing comfortably, but tearful emotional, hemodialysis plan for today. Creatinine slightly worsened urine output approximately 400 mL in 24 hours. Left chest tube to be removed by IR today. Waiting to hear back from [facility] regarding transfer for valve surgery. Declined by our thoracic surgeon due to active drug use and multiple complications 10/21: T-max 100.4. Currently 100. Resting in bed on nasal cannula in no acute distress. Receiving hemodialysis today 10/22: Being baptized today. Requesting transfer to [facility]. Discussed with cardiothoracic surgeon who stated current plan by Dr. Charles regarding moderate tricuspid regurgitation is adequate. We will recheck echocardiogram in 1-2 weeks or if clinically indicated. Currently complaining of some neck pain while sitting in chair Subjective 10/23: Being transfused 1 unit PRBCs today. Currently receiving hemodialysis. Denies back pain.. Request to go to chair. Tolerating diet. Remains on nasal cannula. Objective Vital Signs Date Time Temp Pulse Resp B/P (MAP) Pulse Ox O2 Delivery O2 Flow Rate FiO2 10/23/17 14:29 20 10/23/17 12:00 97.7 101 106/53 (70) 88 10/23/17 08:52 Nasal Cannula 3.00 Intake and Output 10/23/17 10/23/17 10/23/17 07:59 15:59 23:59 Intake Total 990 ml Output Total 0 ml 3000 ml Balance 990 ml -3000 ml Result Diagram: 10/23/17 0935 10/23/17 0325 Other Results Microbiology Date/Time Source Procedure Growth Status 10/18/17 15:40 Blood Peripheral Aerobic Blood Culture - Final NO GROWTH IN 5 DAYS Complete 10/18/17 15:40 Blood Peripheral Anaerobic Blood Culture - Final NO GROWTH IN 5 DAYS Complete 10/09/17 12:00 Fluid Pleural Fluid Fungal Smear - Final NO FUNGAL ELEMENTS SEEN. Resulted 10/09/17 12:00 Fluid Pleural Fluid Fungal Culture - Preliminary NO GROWTH IN 2 WEEKS Resulted 10/16/17 12:55 Sputum Endotracheal Gram Stain - Final Complete 10/16/17 12:55 Sputum Endotracheal Sputum Culture - Final RARE GROWTH NORMAL RESPIRATORY RHIANNON Complete 10/03/17 21:30 Urine Random Urine Legionella Antigen - Final PRESUMPTIVE NEGATIVE FOR LEGIONELLA P... Complete 10/03/17 21:30 Urine Random Urine Streptococcus pneumoniae Antigen (M - Final PRESUMPTIVE NEGATIVE FOR STREPTOCOCCU... Complete Imaging Last Impressions Chest X-Ray 10/23/17 0600 Signed Impressions: Service Date/Time: October 03:31 - CONCLUSION: 1. Stable patchy bilateral mid to lower lung zone airspace disease. 2. Cardiomegaly with mild positive fluid balance. 3. No significant interval change. Emerson Hui MD Tunnelled Chest Tube Removal 10/20/17 0000 Signed Impressions: Service Date/Time: Friday, October 20, 2017 00:00 - CONCLUSION: Uncomplicated chest tube removal. Madi Mccartney MD Chest CT 10/14/17 0000 Signed Impressions: Service Date/Time: Saturday, October 14, 2017 00:26 - CONCLUSION: 1. Bilateral scattered pulmonary nodules are again noted. Several of the right nodules are now cavitary and likely represent septic emboli given the history of IV drug abuse. 2. Interval placement of bilateral chest tubes with small pleural effusions noted. 3. Dense consolidation remains in the posterior lower lobes. Jorge Jang MD Abdomen/Pelvis CT 10/14/17 0000 Signed Impressions: Service Date/Time: Saturday, October 14, 2017 16:39 - CONCLUSION: No new or acute intra-abdominal or pelvic findings. Madi Mccartney MD Upper Extremity Ultrasound 10/13/17 0000 Signed Impressions: Service Date/Time: Friday, October 13, 2017 11:25 - CONCLUSION: Normal examination. Christian Kaur MD Abdomen X-Ray 10/10/17 0000 Signed Impressions: Service Date/Time: Tuesday, October 10, 2017 16:46 - CONCLUSION: Negative for free air or obstruction. Rahul Yarbrough MD FACR Chest Tube Insertion 10/06/17 0000 Signed Impressions: Service Date/Time: Friday, October 06, 2017 15:37 - CONCLUSION: Uncomplicated chest tube placement as above. Emerson Hui MD Objective Remarks GENERAL: 27-year-old male resting in bed in no acute distress on nasal cannula SKIN: Warm and dry. Extensive tattoos limits skin exam. Anasarca. Positive carrera HEAD: Normocephalic. EYES: No scleral icterus. No injection or drainage. Slight periorbital edema noted. ENT: Oral cavity moist NECK: Supple, trachea midline. No JVD or lymphadenopathy. RIJ Vascath in place. Clean dry and intact CARDIOVASCULAR: S1-S2 no S4.. 2 out of 6 systolic murmur at the left sternal border. Large TV vegetation on bedside echo, on admission and 10/18/17 RESPIRATORY: Air entry is equal bilaterally, coarse rhonchi and crackles. Left pig tail chest tubes in place. Minimal output GASTROINTESTINAL: Abdomen soft, non-tender, nondistended. MUSCULOSKELETAL: Positive anasarca NEURO EXAM: Alert awake oriented, Pupils are round, reactive to light. Moving all extremities follows commands no focal deficit A/P Assessment and Plan Neuro/Psych IVDU Acetaminophen 650 mg p.o. every 6 hours as needed fever Hydrocodone/acetaminophen 5/325 1 tablet every 4 hours as needed pain 1 through 5 Morphine sulfate 2 mg IV every 2 hours as needed pain 6 or 10 - Continue Fentanyl patch 75 mcg every 72 hours Resp: Acute hypoxemic respiratory failure, improved Extensive septic emboli, consolidation of the lung Loculated left effusion, large right effusion - Extubated 10/17 (Self extubated while on CPAP for planned extubation) - IR placed left chest tube 10/06 with more than 1 L exudative fluid out. Removed 10/20 - Dr. Barraza placed right-sided pigtail chest tube at the bedside 10/09, brown tinged fluid approximately 1.1 L initial output, now output is minimum - Removed right chest tube 10/18/17. - Broad-spectrum antibiotics per ID, see below - Nasal cannula to maintain saturations greater than equal to 92% - Incentive spirometry while awake - Albuterol/ipratropium aerosols every 6 hours while awake with albuterol aerosols every 2 hours. Dyspnea - EzPAP - Fluticasone 44 mcg inhalation twice daily CVS: Large tricuspid valve vegetation Small pericardial effusion Acute systolic heart failure Mild pulmonary hypertension - Bedside echo shows large tricuspid vegetation. repeat bedside echo today 10/18 similar size - Cardiology and CT surgery has followed. D/W Dr. Charles declined surgery due to active IV drug use, multiple medical complications. Await input from [facility] - CARMEN 10/04: EF 45-50 %. Large mobile vegetation on tricuspid valve, 2 separate vegetations 2.1 x 3.2 cm and 2.6 x 0.8 cm. PIP 40.7 mmHg -Echo 10/20 -EF 35-40%. Tricuspid valve education 1 3.3 potential 0.9 and 11.9 cm Currently on metoprolol tartrate 50 mg p.o. every 8 hours GI: Hepatosplenomegaly Diarrhea Hypoalbuminemia Hepatitis C reactive genotype pending. Viral load 10,700 Elevated ceruloplasmin MARTÍN +1/40 diffuse Elevated total bilirubin Elevated AST -Pantoprazole 40 mg p.o. twice daily due to persistent anemia. GI f is followed currently signed off - Swallow eval and diet per speech recommendation - Hepatitis C reactive. Genotype pending. Viral load 10,700 -Renal diet -Docusate sodium/senna 1 tablet twice daily for bowel regimen Renal/: Acute kidney failure with fluid overload - Started hemodialysis 10/08,above. - Continue intermittent HD for fluid removal. -5 L today 10/21 - Strict I's and O's, Monitor trend of creatinine - Replace electrolytes as clinically indicated - 10/14-removed vas catheter. Replaced on 10/16 ID: Tricuspid and pulmonic valve endocarditis Septic emboli to the lung Severe sepsis MSSA bacteremia - Discussed with Dr. Charles CT surgery 10/05/17, 10/19, deemed not a surgical candidate, await input from [facility] - Cefazolin, Rifampin per ID Dr. Macias. 10/22 discontinued vancomycin 125 mg 4 times daily - Persistent MSSA bacteremia 10/04, 10/05 10/07 blood cultures, cultures reviewed. Blood cultures from 10/13 negative, fever trending down now Endo: Sliding scale insulin if indicated Heme: Anemia requiring transfusion Leukocytosis Normocytic anemia - Transfuse PRBC to keep Hb>7.0 - LDH mildly elevated and haptoglobin normal, Transfusion 1u PRBC on 10/14, 10/17 and 10/23 - Monitor CBC, Coags - Thrombocytopenia most likely from sepsis and DIC has resolved -Epogen 10,000 units as needed with hemodialysis MSK: PT evaluate and treat FEN: Hyponatremia Replace electrolytes as clinically indicated DVT GI prophylaxis - TEDs SCDs - Started Heparin 5000 U sq q12-DCD 10/17 due to persistent anemia requiring transfusion Restart 10/21 -Pantoprazole 40 q12 Level 2 follow-up Danny Marie MD Oct 23, 2017 15:00
[2017-10-23] MEDS: ONDANSETRON HCL 4 MG/2 ML VIAL IV PUSH PRN (16:35)
[2017-10-23] MEDS: HALOPERIDOL LACTATE 5 MG/ML AMP IV PUSH PRN (23:42)
[2017-10-24] VITALS (14 sets, daily range): BP systolic 91–126; BP diastolic 53–64; PULSE 96–117; RESP 18–25; TEMP 97.5–98.9; O2SAT 96–100
[2017-10-24] MEDS: HALOPERIDOL LACTATE 5 MG/ML AMP IV PUSH PRN ×2 (02:20→04:49)
[2017-10-24] MEDS: CHLORHEXIDINE GLUCONATE 2 % 1 PACK (2 CLOTHS) TOP SCH (04:00)
[2017-10-24] MEDS: METOPROLOL TARTRATE 25 MG TAB PO SCH ×3 (04:50→22:00)
[2017-10-24 06:18] LABS: BASOPHIL # 0.2 TH/MM3 (0-0.2); BASOPHIL % 1.5 % (0.0-2.0); EOSINOPHIL # 0.3 TH/MM3 (0-0.4); EOSINOPHIL % 1.8 % (0.0-4.0); HEMOGLOBIN 7.7 GM/DL (13.0-17.0); LYMPH % 8.6 % (9.0-44.0); LYMPHOCYTE # 1.3 TH/MM3 (1.0-4.8); MEAN CELL VOLUME 84.9 FL (80.0-100.0); MEAN CORPUSCULAR HEMOGLOBIN 28.4 PG (27.0-34.0); MEAN CORPUSCULAR HGB CONC 33.4 % (32.0-36.0); MEAN PLATELET VOLUME 9.3 FL (7.0-11.0); MONO % 7.8 % (0.0-8.0); MONOCYTE # 1.2 TH/MM3 (0-0.9); NEUT % 80.3 % (16.0-70.0); PLATELET COUNT 182 TH/MM3 (150-450); RED BLOOD COUNT 2.71 MIL/MM3 (4.50-5.90); RED CELL DISTRIBUTION WIDTH 20.6 % (11.6-17.2); WHITE BLOOD COUNT 14.9 TH/MM3 (4.0-11.0)
[2017-10-24 06:54] LABS: ALBUMIN 3.2 GM/DL (3.4-5.0); ALKALINE PHOSPHATASE 77 U/L (45-117); ALT (GPT) 53 U/L (12-78); AST (GOT) 1257 U/L (15-37); BICARBONATE 23.5 MEQ/L (21.0-32.0); BLOOD UREA NITROGEN 50 MG/DL (7-18); CALCIUM 8.8 MG/DL (8.5-10.1); CHLORIDE 89 MEQ/L (98-107); CREATININE 5.31 MG/DL (0.60-1.30); GLOMERULAR FILTRATION RATE 13 ML/MIN (>89); GLUCOSE,RANDOM 87 MG/DL (74-106); MAGNESIUM 1.8 MG/DL (1.5-2.5); PHOSPHORUS 5.2 MG/DL (2.5-4.9); SODIUM (NA) 128 MEQ/L (136-145); TOTAL BILIRUBIN ADULT 2.9 MG/DL (0.2-1.0); TOTAL PROTEIN 8.2 GM/DL (6.4-8.2)
[2017-10-24] MEDS: CHLORHEXIDINE 0.12% (ORAL KIT) 15 ML CUP MT SCH ×2 (08:00→20:00)
[2017-10-24] MEDS: RESP: ALBUTEROL 2.5 MG/IPRATROPIUM 0.5 MG NEB (SCH) NEB ×3 (08:11→20:18)
[2017-10-24] MEDS: LACTOBACILLUS ACIDOPHILUS TAB PO SCH ×3 (08:39→16:17)
[2017-10-24] MEDS: CALCIUM ACETATE 667 MG CAP PO SCH ×3 (08:39→16:42)
[2017-10-24] MEDS: PANTOPRAZOLE SOD 40 MG DELAYED RELEASE TAB PO SCH ×2 (08:39→22:01)
[2017-10-24] MEDS: HEPARIN SODIUM - SQ 10,000 UNITS/ML VIAL SQ SCH ×2 (08:40→20:59)
[2017-10-24] MEDS: DOCUSATE SODIUM 50 MG/SENNA 8.6 MG TAB PO SCH ×2 (08:40→21:00)
[2017-10-24] MEDS: RIFAMPIN 150 MG CAP PO SCH (08:40)
[2017-10-24] MEDS: COLLAGENASE OINT 30 GM TUBE TOPICAL SCH (08:40)
[2017-10-24] MEDS: SODIUM CHLORIDE 0.9% FLUSH 10 ML FLUSH IV FLUSH SCH ×2 (08:41→20:59)
[2017-10-24] MEDS: FLUTICASONE PROPIONATE 44 MCG/ACT 10.6 GM INHALER INH SCH ×2 (08:41→20:59)
--- NOTE | 2017-10-24 09:22 | HHI.NPPN ---
Subjective Complaints: Shortness of Breath Renal Failure: Acute History of Present Illness Patient is 27-year-old male who reported to ER with body aches, 7 days of diarrhea with development fever. Past medical history of IV drug use. Patient is sedated and ventilated FiO2 at 40 %. Nephrology is consulted for ZEUS and fluid over load status. Patients creatinine is 3.02 and GFR 25ml/min. Patient is UOP at 800cc for last 24 hours. Weight has increased by over 10 kg since admission. IVF's have been stopped and lasix has been given. Patient has endocarditis with large tricuspid valve vegetation, and pulmonic vegetation. Noted to have bacteremia with hypotension with SBP in the 90's. Additional Remarks OOB in chair eating breakfast. Mild SOB. Edema is improving (Vensu Barrett) Review of Systems Respiratory Lungs: SOB (Venus Barrett) Cardiovascular Cardiac Remarks denies CP (Venus Barrett) Psych Psych: Depression, Anxiety (Venus Barrett) Objective Data Data Vital Signs Date Time Temp Pulse Resp B/P (MAP) Pulse Ox O2 Delivery O2 Flow Rate FiO2 10/24/17 08:11 100 Nasal Cannula 4.00 10/24/17 06:00 102 10/24/17 04:00 104 10/24/17 04:00 97.7 104 18 108/64 (79) 97 10/24/17 02:00 103 10/24/17 00:00 100 10/24/17 00:00 97.8 100 19 96/54 (68) 97 10/23/17 22:00 109 10/23/17 20:53 100 Nasal Cannula 3.00 10/23/17 20:00 99.9 108 22 111/67 (82) 96 10/23/17 20:00 108 10/23/17 18:00 109 10/23/17 16:00 124 10/23/17 16:00 98.6 124 27 119/74 (89) 86 10/23/17 14:29 20 10/23/17 14:00 110 10/23/17 12:00 97.7 101 21 106/53 (70) 88 10/23/17 12:00 101 10/23/17 10:00 109 10/23/17 09:29 27 10/23/17 09:29 27 (Corinne Barrettne MirnaNguyễn MCKEON) -: 10/24/17 0520 10/24/17 0520 Tubes & Lines: Vas-Cath (ArnoldVenus) Physical Exam General Appearance: No Acute Distress, Comfortable, Anxious (AnjumpaukaylynVenus) Eyes Eye Exam: Pupils Equal (AnjumpaukaylynVenusP) Pulmonary Resp Exam: Decreased Bases, Diminished Breath Sounds, Poor Inspiratory Effort (AnjumVenus loredoP) Cardiology CV Exam: Tachycardia (AnjumVenus loredoP) Gastrointestinal/Abdomen GI Exam: Soft, Non-Tender, Bowel Sounds Present, Distended (Venus BarrettP) Integumentary Skin Exam: Clear, Warm (Venus BarrettP) Extremeties Extremities Exam: Moderate Edema (Venus BarrettP) Neurologic Neuro Exam: Alert, Awake (Venus BarrettP) Assessment/Plan Assessment Summary: ZEUS/Acute Renal Failure Electrolyte Assessment: Hyponatremia Problem List: (1) ZEUS (acute kidney injury) ICD Codes: N17.9 - Acute kidney failure, unspecified Plan: ZEUS most likely ATN from sepsis and low blood pressure. Other differential will be ATN, Acute interstitial nephritis, and Post infectious GN,unlikely. Creatinine at 5.33 and potassium WNL Hyponatremia improved at 128 today Plan Continue phoslo Epogen with dialysis. HGB 7.7 Will continue to monitor labs and urinary output Dialysis yesterday 3 liiters removed. Dialysis as needed (2) Sepsis ICD Codes: A41.9 - Sepsis, unspecified organism Status: Acute Plan: Antibiotics per ID (3) Endocarditis ICD Codes: I38 - Endocarditis, valve unspecified Status: Acute (AnjumpaukaylynVenus MirnaNguyễn LUCIANOP) Problem List: (1) ZEUS (acute kidney injury) ICD Codes: N17.9 - Acute kidney failure, unspecified Plan: ZEUS most likely ATN from sepsis and low blood pressure. Other differential will be ATN, Acute interstitial nephritis, and Post infectious GN,unlikely. Creatinine at 5.33 and potassium WNL Hyponatremia improved at 128 today Plan Continue phoslo Epogen with dialysis. HGB 7.7 Will continue to monitor labs and urinary output Dialysis yesterday 3 liters removed. Dialysis as needed. Patient seen and examined, agree with above. HD to continue as needed. (2) Sepsis ICD Codes: A41.9 - Sepsis, unspecified organism Status: Acute Plan: Antibiotics per ID (3) Endocarditis ICD Codes: I38 - Endocarditis, valve unspecified Status: Acute (Darek Tapia MD) Problem Qualifiers (1) Sepsis: Qualified Codes: A41.9 - Sepsis, unspecified organism (2) Endocarditis: Venus Barrett Oct 24, 2017 09:22 Darek Tapia MD Oct 24, 2017 21:06
[2017-10-24] MEDS: REMOVE OLD PATCH T-DERMAL SCH (12:00)
[2017-10-24 12:32] LABS: DIRECT BILIRUBIN ADULT 1.8 MG/DL (0.0-0.2)
[2017-10-24] MEDS: fentaNYL 100 MCG/HR PATCH T-DERMAL SCH (12:32)
[2017-10-24 12:34] LABS: TOTAL BILIRUBIN ADULT 2.8 MG/DL (0.2-1.0)
--- NOTE | 2017-10-24 12:35 | HHI.IDPN ---
Subjective Subjective Remarks is a 27 y/o CM with remote history of IV drug abuse, states he last used heroin 2 months ago, presents for evaluation of body aches, 7 days of diarrhea with development of subjective fever yesterday. Patient denies any nausea or vomiting. He denies any chest pain. This has developed within the last 24 hours. Patient does have a cough with clear sputum. Denies any prior history of endocarditis. Denies any abdominal pain. Does report some left back pain, worse while lying flat. He is well reports generalized weakness. Patient met criteria for sepsis on admission. Flu antigen negative. CXR with bilateral infiltrates. performed a bedside 2D ECHO and verbally reported a large ~4.5 cm vegetation on TV. CXR suspicious for septic emboli. Blood cultures drawn but it appears patient has received augmentin at some point and cultures may possibly be negative. ID is following for evaluation and M'ment of Severe Sepsis and Endocarditis. Overnight events reviewed. On RA Awake,AAOx3,NF. Occ low grade temps. BP ok HD tues, thurs and Sat Antibiotics Current Medications Medications (Trade) Dose Ordered Sig/Willem Route Start Time Stop Time Status Last Admin (NS Flush) 2 ml UNSCH PRN IV FLUSH 10/03/17 21:15 10/15/17 20:58 (NS Flush) 2 ml BID IV FLUSH 10/04/17 09:00 10/24/17 08:41 (Morphine Inj) 2 mg Q2H PRN IV PUSH 10/03/17 21:15 10/23/17 20:32 (Zofran Inj) 4 mg Q6H PRN IV PUSH 10/03/17 21:15 10/23/17 16:35 (Restoril) 15 mg HS PRN PO 10/03/17 21:15 Miscellaneous Information 1 Q361D XX 10/03/17 21:15 (Chlorhexidine 2% Cloth) 3 pack Taper DAILY@04 TOP 10/04/17 04:00 09/30/18 03:59 10/24/17 04:00 (Chlorhexidine 2% Cloth) 3 pack UNSCH PRN TOP 10/03/17 21:15 (Renita-Colace) 1 tab BID PO 10/04/17 09:00 10/23/17 20:29 (Senokot) 17.2 mg Q12H PRN PO 10/03/17 21:15 (Dulcolax Supp) 10 mg DAILY PRN RECTAL 10/03/17 21:15 10/11/17 17:08 (Lactulose Liq) 30 ml DAILY PRN PO 10/03/17 21:15 10/11/17 17:08 (Flovent Hfa 44 Mcg Inh) 2 puff BID INH 10/04/17 09:00 10/24/17 08:41 (Peridex 0.12% Liq) 15 ml BID@08,20 MT 10/04/17 20:00 10/19/17 08:23 Sodium Chloride 1,000 ml @ 0 mls/hr Q0M PRN OTHER 10/08/17 10:33 10/17/17 14:00 (Heparin Inj) 8,000 units UNSCH PRN IV FLUSH 10/08/17 10:45 Sodium Chloride 1,000 ml @ 200 mls/hr Q5H PRN IV 10/08/17 11:15 10/11/17 08:57 Sodium Chloride 1,000 ml @ 0 mls/hr Q0M PRN OTHER 10/08/17 11:15 (Mannitol Inj) 12.5 gm UNSCH PRN IV 10/08/17 11:15 Albumin Human 100 ml @ 60 mls/hr UNSCH PRN IV 10/08/17 11:30 10/23/17 10:15 (NS Flush) 5 ml UNSCH PRN IV FLUSH 10/08/17 11:15 10/18/17 11:26 (Heparin Inj) UNSCH PRN .XX 10/08/17 11:15 10/23/17 12:14 (Gentamicin Inj) 20 mg UNSCH PRN OTHER 10/08/17 11:15 10/23/17 12:13 (Zofran Inj) 4 mg UNSCH PRN IV PUSH 10/08/17 11:15 (Benadryl) 25 mg UNSCH PRN PO 10/08/17 11:15 (Nitrostat Sl) 0.4 mg UNSCH PRN SL 10/08/17 11:30 (Catapres) 0.1 mg UNSCH PRN PO 10/08/17 11:30 (Epogen Inj) 10,000 units UNSCH PRN IV PUSH 10/08/17 11:30 10/23/17 12:14 (Gelfoam 12 Mm/7 Mm Top) 1 foam UNSCH PRN TOP 10/08/17 11:30 (Lactinex) 1 tab TID PO 10/17/17 13:00 10/24/17 08:39 (Duragesic 100 Mcg Patch.72 Hr) 1 patch Q3D T-DERMAL 10/18/17 12:00 10/24/17 12:32 Miscellaneous Information 1 Q3D T-DERMAL 10/21/17 12:00 10/24/17 12:00 (Lopressor) 50 mg Q8HR PO 10/20/17 14:00 10/24/17 12:31 (Santyl Oint) 1 applic DAILY TOPICAL 10/20/17 16:00 10/24/17 08:40 (Duoneb Neb) 1 ampule Q6HR WHILE AWAKE NEB NEB 10/21/17 14:00 10/24/17 11:26 (Albuterol Neb) 2.5 mg Q2HR NEB PRN NEB 10/21/17 13:30 10/22/17 05:12 (Protonix) 40 mg Q12HR PO 10/21/17 21:00 10/24/17 08:39 ([place] 5-325 Mg) 1 tab Q4H PRN PO 10/21/17 13:45 10/23/17 16:36 (Heparin Inj) 5,000 units Q12HR SQ 10/21/17 21:00 10/24/17 08:40 (Phoslo) 667 mg TID PO 10/23/17 13:00 10/24/17 12:31 Cefazolin Sodium 1000 mg/Sodium Chloride 100 ml @ 200 mls/hr Q12H IV 10/24/17 03:00 10/24/17 02:21 (Haldol Inj) 5 mg Q4H PRN IV PUSH 10/23/17 23:30 10/24/17 04:49 Lines Line sites with no e.o infection Past Medical History Asthma HCV Past Surgical History No surgical history per records. Allergies: Coded Allergies: erythromycin base (Verified Allergy, Severe, Nausea/Vomiting, 10/03/17) raspberry (Unverified Allergy, Mild, 10/03/17) Objective . Vital Signs Date Time Temp Pulse Resp B/P (MAP) Pulse Ox O2 Delivery O2 Flow Rate FiO2 10/24/17 10:00 115 10/24/17 08:11 100 Nasal Cannula 4.00 10/24/17 08:00 98.9 104 19 97/61 (73) 100 10/24/17 08:00 104 10/24/17 06:00 102 10/24/17 04:00 104 10/24/17 04:00 97.7 104 18 108/64 (79) 97 10/24/17 02:00 103 10/24/17 00:00 100 10/24/17 00:00 97.8 100 19 96/54 (68) 97 10/23/17 22:00 109 10/23/17 20:53 100 Nasal Cannula 3.00 10/23/17 20:00 99.9 108 22 111/67 (82) 96 10/23/17 20:00 108 10/23/17 18:00 109 10/23/17 16:00 124 10/23/17 16:00 98.6 124 27 119/74 (89) 86 10/23/17 14:29 20 10/23/17 14:00 110 . Laboratory Tests Test 10/23/17 03:25 10/23/17 09:35 10/24/17 05:20 White Blood Count 13.6 TH/MM3 16.3 TH/MM3 14.9 TH/MM3 Red Blood Count 2.35 MIL/MM3 2.63 MIL/MM3 2.71 MIL/MM3 Hemoglobin 6.9 GM/DL 7.5 GM/DL 7.7 GM/DL Hematocrit 20.2 % 22.2 % 23.0 % Mean Corpuscular Volume 85.7 FL 84.3 FL 84.9 FL Mean Corpuscular Hemoglobin 29.4 PG 28.6 PG 28.4 PG Mean Corpuscular Hemoglobin Concent 34.3 % 34.0 % 33.4 % Red Cell Distribution Width 19.6 % 20.5 % 20.6 % Platelet Count 133 TH/MM3 151 TH/MM3 182 TH/MM3 Mean Platelet Volume 8.0 FL 8.4 FL 9.3 FL Neutrophils (%) (Auto) 79.8 % 85.8 % 80.3 % Lymphocytes (%) (Auto) 7.7 % 5.2 % 8.6 % Monocytes (%) (Auto) 8.5 % 6.8 % 7.8 % Eosinophils (%) (Auto) 2.7 % 0.9 % 1.8 % Basophils (%) (Auto) 1.3 % 1.3 % 1.5 % Neutrophils # (Auto) 10.9 TH/MM3 14.0 TH/MM3 12.0 TH/MM3 Lymphocytes # (Auto) 1.0 TH/MM3 0.8 TH/MM3 1.3 TH/MM3 Monocytes # (Auto) 1.2 TH/MM3 1.1 TH/MM3 1.2 TH/MM3 Eosinophils # (Auto) 0.4 TH/MM3 0.2 TH/MM3 0.3 TH/MM3 Basophils # (Auto) 0.2 TH/MM3 0.2 TH/MM3 0.2 TH/MM3 CBC Comment AUTO DIFF DIFF FINAL DIFF FINAL Differential Comment AUTO DIFF CONFIRMED Laboratory Tests Test 10/23/17 03:25 10/24/17 05:20 10/24/17 11:46 Blood Urea Nitrogen 64 MG/DL 50 MG/DL Creatinine 5.99 MG/DL 5.31 MG/DL Random Glucose 85 MG/DL 87 MG/DL Albumin 3.0 GM/DL 3.2 GM/DL Calcium Level 8.9 MG/DL 8.8 MG/DL Phosphorus Level 6.4 MG/DL 5.2 MG/DL Magnesium Level 1.7 MG/DL 1.8 MG/DL Sodium Level 126 MEQ/L 128 MEQ/L Potassium Level 4.3 MEQ/L 3.8 MEQ/L Chloride Level 88 MEQ/L 89 MEQ/L Carbon Dioxide Level 24.5 MEQ/L 23.5 MEQ/L Anion Gap 14 MEQ/L 16 MEQ/L Estimat Glomerular Filtration Rate 11 ML/MIN 13 ML/MIN Total Protein 8.2 GM/DL Alkaline Phosphatase 77 U/L Aspartate Amino Transf (AST/SGOT) 1257 U/L Alanine Aminotransferase (ALT/SGPT) 53 U/L Total Bilirubin 2.9 MG/DL Direct Bilirubin 1.8 MG/DL Ammonia 24 MCMOL/L Imaging Last Impressions Chest X-Ray 10/16/17 0600 Signed Impressions: Service Date/Time: September 04:06 - CONCLUSION: 1. Cardiomegaly with airspace disease and apparent small effusions most characteristic of congestive heart failure. Jorge Jang MD Chest CT 10/14/17 0000 Signed Impressions: Service Date/Time: Saturday, October 14, 2017 00:26 - CONCLUSION: 1. Bilateral scattered pulmonary nodules are again noted. Several of the right nodules are now cavitary and likely represent septic emboli given the history of IV drug abuse. 2. Interval placement of bilateral chest tubes with small pleural effusions noted. 3. Dense consolidation remains in the posterior lower lobes. Jorge Jang MD Abdomen/Pelvis CT 10/14/17 0000 Signed Impressions: Service Date/Time: Saturday, October 14, 2017 16:39 - CONCLUSION: No new or acute intra-abdominal or pelvic findings. Madi Mccartney MD Upper Extremity Ultrasound 10/13/17 0000 Signed Impressions: Service Date/Time: Friday, October 13, 2017 11:25 - CONCLUSION: Normal examination. Christian Kaur MD Abdomen X-Ray 10/10/17 0000 Signed Impressions: Service Date/Time: Tuesday, October 10, 2017 16:46 - CONCLUSION: Negative for free air or obstruction. Rahul Yarbrough MD FACR Chest Tube Insertion 10/06/17 0000 Signed Impressions: Service Date/Time: Friday, October 06, 2017 15:37 - CONCLUSION: Uncomplicated chest tube placement as above. Emerson Hui MD Physical Exam GENERAL: Awake, and following commands, on nasal O2, NAD SKIN: No rashes. Cool and dry. Multiple tattoos. HEAD: Atraumatic. Normocephalic. No temporal or scalp tenderness. EYES: Pupils equal round and reactive. Extraocular motions intact. No petechia, no hemorrhage ENT: Moist oral mucosa, no nasal drainage NECK: Trachea midline. Supple, nontender, no meningeal signs. CARDIOVASCULAR: Has systolic murmur RESPIRATORY: Decreased air entry bilaterally bases. Rt CT in place GASTROINTESTINAL: Abdomen soft, not tender, (+) BS MUSCULOSKELETAL: Extremities without clubbing, cyanosis. Mild pedal edema. No embolic lesion seen. NEUROLOGICAL: Awake, follows commands Psych cooperative IV line sites with no e.o infection. 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 Pneumonia: septic emboli, aspiration pneumonia. Respiratory failure, self extubated 10/17 IVDA: heroin, cocaine and methamphetamine. Acute renal failure: Sepsis, meds,contrast. - on HD Recs: Continue Ancef IV DC Rifampin oral. US Abd: r/o acalculous cholecystitis. Follow cultures D/W Lakia Colby MD Oct 24, 2017 12:35
[2017-10-24 13:03] LABS: ALBUMIN 3.3 GM/DL (3.4-5.0)
[2017-10-24 13:10] LABS: TOTAL PROTEIN 8.5 GM/DL (6.4-8.2)
--- NOTE | 2017-10-24 16:52 | HHI.CCPN ---
Subjective Remarks/Hospital Course 27-year-old male with remote history of IV drug abuse, states he last used heroin 2 months ago, presents for evaluation of 8 days of body aches, 7 days of diarrhea with development of subjective fever yesterday. Patient denies any nausea or vomiting. He denies any chest pain. States that he is short of breath and feels anxious. This has developed within the last 24 hours. Patient does have a cough with clear sputum. Denies any prior history of endocarditis. Denies any abdominal pain. Does report some left back pain, worse while lying flat. He is well reports generalized weakness. 10/04/17: He is critically ill, remains febrile up to 103, tachycardic diaphoretic. large tricuspid valve vegetation on bedside echo, formal echo pending. Infectious disease consulted, CT surgery consult ordered. D/W Dr. Macias and Dr. Charles. CARMEN/director of photography consult ordered. Hb 6.6 getting 2U PRBC 10/05: Remains critically ill intubated sedated. TE on yesterday TEF 40-45%. Large mobile vegetation noted on the tricuspid valve, may be 2 separate vegetations, measures overall 4cm x 1.7cm. Probable mobile density noted on the pulmonic valve. CT of the chest shows extensive septic emboli and consolidation , with loculated appearing effusion on the left base. Dr. Charles CT surgery recommends 4-6 weeks of IV antibiotics followed by repeat echo, considering surgery at that time if no improvement 10/06: Worsening CXR, with bibasilar worsening infiltrates and effusion. IR to place CT-guided left chest tube today for loculated effusion. Fluid overloaded approximately 8 kg. IV Lasix 40 mg x1. MSSA bacteremia persists 10/07: Remains intubated sedated remains critical severe volume overload with worsening renal function creatinine 3, weight up by at least [address] him on Bumex infusion and consult nephrology. Patient remains slightly oliguric 800 mL urine output in 24 hours. Chest x-ray showed bilateral infiltrates and worsening right effusion 10/08: Remains intubated heavily sedated oliguric. Continues to have positive fluid balance creatinine increased to 4.3. Hemoglobin 6.9. Currently on Bumex infusion with not adequate response. Persistently bacteremic. Bilateral infiltrates on chest x-ray with moderate right effusion 10/09: Intubated sedated remains severely fluid overloaded started on hemodialysis yesterday with 4 L removed still positive fluid balance. Hemoglobin 6.81 unit PRBC transfusion ordered along with calcium replacement. GI consulted for further workup. Large pleural effusion on right side plan for pigtail chest tube placement 10/10: Intubated sedated. Had HD with 25L removed yesterday. right chest tube placed yesterday 1.2 L of old blood tinged effusion drained-Gram stain negative. Chest x-ray shows improvement in effusion. Remains severely fluid overloaded still remains 16-17 kg up. Discussed with nephrology plan for HD with maximum fluid removal as tolerated 10/11: The patient continues on sedation intubated, opens eyes spontaneously, not follow commands. The patient underwent hemodialysis yesterday approximately 3 L off. Bilateral chest tubes no leak noted. Minimal output left chest tube. 10/12: Daily sedation vacation initiated, opens eyes spontaneously, and following commands as squeezing hands bilaterally. Movement of lower extremities. She noted to have very thick secretions. Hemodialysis performed yesterday, approximately 3 L off. Patient noted to have thick copious secretions from airway, with worsening airspace disease on the right. Gen. surgery consulted for tracheostomy. 10/13: Patient remains critically ill opens eyes and follows commands on sedation hold. Did not tolerate CPAP trial today. Cancelled gen surgery consult for trach due to possible need for valve surgery. Continues to spike fever. Plan for changing line today 10/14: Plan for removal of vas catheter today, and to be replaced on . CT of the abdomen and pelvis pending. The patient was noted to have a drop in hemoglobin to 6.9 patient being transfused 1 unit of packed red blood cells. Left chest tube TPA instilled per IR serosanguineous drainage from left chest tube. Right chest tube placed to waterseal. 10/15: Afebrile. Patient continues on CPAP this am > 3 hours currently. Patient following commands. Discussed with Gen. Surgery, Ms. Zelaya to continue CPAP trials today. Per General Surgery conversation with CTS, Dr. Charles, if patient continues to fail CPAP trials, ok'd with CTS for tracheostomy. Pt received 1 u PRBC yesterday, Hgb, stable. 10/16: Tolerated CPAP 12/5 for several hours but still remains very fluid overloaded. Vas-Cath removed 10/14/17, will place new VasCath today for HD. Attempt maximum fluid removal. Blood cultures from 10/13 remains negative, but still spiking fever T-max 102.1 10/17: Patient tolerating CPAP better today at 10/5. Fever trending down. Hemoglobin dropped to 6.7. Plan was to do hemodialysis with maximum fluid removal and then extubated but patient ended up self extubating. I have discussed with Dr. Tapia who will dialyze today 10/18: Extubated yesterday tolerating well respiratory acosta. Getting hemodialysis today with target removal of 3.5 L. Urine output is 400 mL in 24 hours. Bilateral chest tube output minimal. Hemoglobin remaining stable. Bedside echo shows large essentially unchanged TV vegetation 10/19: Patient is breathing comfortably had hemodialysis yesterday with 3 L removed. Urine output 400 mL approximately in 24 hours. Bedside echo shows unchanged size and the tricuspid regurgitation. I discussed with Dr. Charles today-he is declining surgery due to active drug use, however will contact in no acute floor against tomorrow to see whether they will perform tricuspid valve surgery. If declined at [place] I will attempt [facility] for transfer 10/20: Breathing comfortably, but tearful emotional, hemodialysis plan for today. Creatinine slightly worsened urine output approximately 400 mL in 24 hours. Left chest tube to be removed by IR today. Waiting to hear back from [facility] regarding transfer for valve surgery. Declined by our thoracic surgeon due to active drug use and multiple complications 10/21: T-max 100.4. Currently 100. Resting in bed on nasal cannula in no acute distress. Receiving hemodialysis today 10/22: Being baptized today. Requesting transfer to [facility]. Discussed with cardiothoracic surgeon who stated current plan by Dr. Charles regarding moderate tricuspid regurgitation is adequate. We will recheck echocardiogram in 1-2 weeks or if clinically indicated. Currently complaining of some neck pain while sitting in chair 10/23: Being transfused 1 unit PRBCs today. Currently receiving hemodialysis. Denies back pain.. Request to go to chair. Tolerating diet. Remains on nasal cannula. Subjective 3/2: Resting in bed in no acute distress. Afebrile. Requesting to go to chair. Tolerating diet. Remains on nasal cannula. AST elevated. Discontinue rifampin and possible hepatotoxic drugs. Liver ultrasound pending. Will CT abdomen and pelvis rule out hepatic, pancreatic, renal infarct or musculoskeletal source. CPK low normal. Amylase and lipase pending. Objective Vital Signs Date Time Temp Pulse Resp B/P (MAP) Pulse Ox O2 Delivery O2 Flow Rate FiO2 10/24/17 14:00 98 10/24/17 12:00 97.5 25 126/64 (84) 96 10/24/17 08:11 Nasal Cannula 4.00 Intake and Output 10/24/17 10/24/17 10/25/17 08:00 16:00 00:00 Output Total 300 ml Balance -300 ml Result Diagram: 10/24/17 0520 10/24/17 0520 Other Results Microbiology Date/Time Source Procedure Growth Status 10/18/17 15:40 Blood Peripheral Aerobic Blood Culture - Final NO GROWTH IN 5 DAYS Complete 10/18/17 15:40 Blood Peripheral Anaerobic Blood Culture - Final NO GROWTH IN 5 DAYS Complete 10/09/17 12:00 Fluid Pleural Fluid Fungal Smear - Final NO FUNGAL ELEMENTS SEEN. Resulted 10/09/17 12:00 Fluid Pleural Fluid Fungal Culture - Preliminary NO GROWTH IN 2 WEEKS Resulted 10/16/17 12:55 Sputum Endotracheal Gram Stain - Final Complete 10/16/17 12:55 Sputum Endotracheal Sputum Culture - Final RARE GROWTH NORMAL RESPIRATORY RHIANNON Complete 10/03/17 21:30 Urine Random Urine Legionella Antigen - Final PRESUMPTIVE NEGATIVE FOR LEGIONELLA P... Complete 10/03/17 21:30 Urine Random Urine Streptococcus pneumoniae Antigen (M - Final PRESUMPTIVE NEGATIVE FOR STREPTOCOCCU... Complete Imaging Last Impressions Chest X-Ray 10/23/17 0600 Signed Impressions: Service Date/Time: October 03:31 - CONCLUSION: 1. Stable patchy bilateral mid to lower lung zone airspace disease. 2. Cardiomegaly with mild positive fluid balance. 3. No significant interval change. Emerson Hui MD Tunnelled Chest Tube Removal 10/20/17 0000 Signed Impressions: Service Date/Time: Friday, October 20, 2017 00:00 - CONCLUSION: Uncomplicated chest tube removal. Madi Mccartney MD Chest CT 10/14/17 0000 Signed Impressions: Service Date/Time: Saturday, October 14, 2017 00:26 - CONCLUSION: 1. Bilateral scattered pulmonary nodules are again noted. Several of the right nodules are now cavitary and likely represent septic emboli given the history of IV drug abuse. 2. Interval placement of bilateral chest tubes with small pleural effusions noted. 3. Dense consolidation remains in the posterior lower lobes. Jorge Jang MD Abdomen/Pelvis CT 10/14/17 0000 Signed Impressions: Service Date/Time: Saturday, October 14, 2017 16:39 - CONCLUSION: No new or acute intra-abdominal or pelvic findings. Madi Mccartney MD Upper Extremity Ultrasound 10/13/17 0000 Signed Impressions: Service Date/Time: Friday, October 13, 2017 11:25 - CONCLUSION: Normal examination. Christian Kaur MD Abdomen X-Ray 10/10/17 0000 Signed Impressions: Service Date/Time: Tuesday, October 10, 2017 16:46 - CONCLUSION: Negative for free air or obstruction. Rahul Yarbrough MD FACR Chest Tube Insertion 10/06/17 0000 Signed Impressions: Service Date/Time: Friday, October 06, 2017 15:37 - CONCLUSION: Uncomplicated chest tube placement as above. Emerson Hui MD Objective Remarks GENERAL: 27-year-old male resting in bed in no acute distress on nasal cannula SKIN: Warm and dry. Extensive tattoos limits skin exam. Anasarca. Positive carrera HEAD: Normocephalic. EYES: No scleral icterus. No injection or drainage. Slight periorbital edema noted. ENT: Oral cavity moist NECK: Supple, trachea midline. No JVD or lymphadenopathy. RIJ Vascath in place. Clean dry and intact CARDIOVASCULAR: S1-S2 no S4.. 2 out of 6 systolic murmur at the left sternal border. RESPIRATORY: Air entry is equal bilaterally, coarse rhonchi and crackles. Left pig tail chest tubes in place. Minimal output GASTROINTESTINAL: Abdomen soft, non-tender, nondistended. MUSCULOSKELETAL: Positive anasarca NEURO EXAM: Alert awake oriented, Pupils are round, reactive to light. Moving all extremities follows commands no focal deficit A/P Assessment and Plan Neuro/Psych IVDU Morphine sulfate 2 mg IV every 2 hours as needed pain 6 or 10 - Continue Fentanyl patch 75 mcg every 72 hours Resp: Acute hypoxemic respiratory failure, improved Extensive septic emboli, consolidation of the lung Loculated left effusion, large right effusion - Extubated 10/17 (Self extubated while on CPAP for planned extubation) - IR placed left chest tube 10/06 with more than 1 L exudative fluid out. Removed 10/20 - Dr. Barraza placed right-sided pigtail chest tube at the bedside 10/09, brown tinged fluid approximately 1.1 L initial output, now output is minimum - Removed right chest tube 10/18/17. - Broad-spectrum antibiotics per ID, see below - Nasal cannula to maintain saturations greater than equal to 92% - Incentive spirometry while awake - Albuterol/ipratropium aerosols every 6 hours while awake with albuterol aerosols every 2 hours. Dyspnea - EzPAP - Fluticasone 44 mcg inhalation twice daily CVS: Large tricuspid valve vegetation Small pericardial effusion Acute systolic heart failure Mild pulmonary hypertension - Bedside echo shows large tricuspid vegetation. repeat bedside echo today 10/18 similar size - Cardiology and CT surgery has followed. D/W Dr. Charles declined surgery due to active IV drug use, multiple medical complications. Await input from [facility] - CARMEN 10/04: EF 45-50 %. Large mobile vegetation on tricuspid valve, 2 separate vegetations 2.1 x 3.2 cm and 2.6 x 0.8 cm. PIP 40.7 mmHg -Echo 10/20 -EF 35-40%. Tricuspid valve education 1 3.3 potential 0.9 and 11.9 cm Currently on metoprolol tartrate 50 mg p.o. every 8 hours GI: Hepatosplenomegaly Diarrhea Hypoalbuminemia Hepatitis C reactive genotype pending. Viral load 10,700 Elevated ceruloplasmin MARTÍN +1/40 diffuse Elevated total bilirubin Elevated AST -Pantoprazole 40 mg p.o. twice daily due to persistent anemia. GI has followed currently signed off - Swallow eval and diet per speech recommendation - Hepatitis C reactive. Genotype pending. Viral load 10,700 -Renal diet -Docusate sodium/senna 1 tablet twice daily for bowel regimen Hepatic ultrasound pending. Will check CT abdomen/pelvis rule out hepatic, pancreatic, nephrotic versus musculoskeletal source. CPK normal. Discontinue nephrotoxic drugs including rifampin and acetaminophen Renal/: Acute kidney failure with fluid overload - Started hemodialysis 10/08,above. - Continue intermittent HD for fluid removal. -5 L today 10/21 - Strict I's and O's, Monitor trend of creatinine - Replace electrolytes as clinically indicated - 10/14-removed vas catheter. Replaced on 10/16 ID: Tricuspid and pulmonic valve endocarditis Septic emboli to the lung Severe sepsis MSSA bacteremia - Discussed with Dr. Charles CT surgery 10/05/17, 10/19, deemed not a surgical candidate, await input from [facility] - Cefazolin, Rifampin per ID Dr. Macias. 10/22 discontinued vancomycin 125 mg 4 times daily - Persistent MSSA bacteremia 10/04, 10/05 10/07 blood cultures, cultures reviewed. Blood cultures from 10/13 negative, fever trending down now Endo: Sliding scale insulin if indicated Heme: Anemia requiring transfusion Leukocytosis Normocytic anemia - Transfuse PRBC to keep Hb>7.0 - LDH mildly elevated and haptoglobin normal, Transfusion 1u PRBC on 10/14, 10/17 and 10/23 - Monitor CBC, Coags - Thrombocytopenia most likely from sepsis and DIC has resolved -Epogen 10,000 units as needed with hemodialysis MSK: PT evaluate and treat FEN: Hyponatremia Replace electrolytes as clinically indicated DVT GI prophylaxis - TEDs SCDs - Started Heparin 5000 U sq q12-DCD 10/17 due to persistent anemia requiring transfusion Restart 10/21 -Pantoprazole 40 q12 Level 2 follow-up Danny Marie MD Oct 24, 2017 16:52
--- NOTE | 2017-10-24 17:25 | RADRPT ---
EXAM DATE/TIME: 10/24/2017 16:43 [facility] COMPARISON: CT ABDOMEN & PELVIS W/O CONTRAST, October 14, 2017, 16:39. INDICATIONS : Increased lab values. MEDICAL HISTORY : Methicillin-resistant Staphylococcus aureus. Asthma. Anxiety. Dyspnea. Fever. SURGICAL HISTORY : None. ENCOUNTER: Initial ACUITY: 1 day PAIN SCORE: 2/10 LOCATION: Bilateral upper quadrant MEASUREMENTS: LIVER: 23.2 cm length COMMON DUCT: 5 mm RIGHT KIDNEY: 14.5 x 7.4 x 6.0 cm SPLEEN: 20.7 cm length FINDINGS: Ascites. LIVER: Enlarged without focal mass or biliary ductal dilatation. COMMON DUCT: No intraluminal mass or stone visualized. GALLBLADDER: Mild nonspecific wall thickening. No stones PANCREAS: Obscured RIGHT KIDNEY: Increased cortical echogenicity suggesting medical renal disease. No hydronephrosis SPLEEN: Enlarged without focal mass CONCLUSION: Hepatosplenomegaly with ascites. Echogenic kidney Madi Mccartney MD on October 24, 2017 at 17:15 Board Certified Radiologist. This report was verified electronically.
[2017-10-24] MEDS ORDERED: DIATRIZOATE MEGLUM/DIATRIZOATE SOD 9 ML CUP PO ONE (17:30)
[2017-10-24] MEDS: MORPHINE SULFATE 4 MG/ML INJ IV PUSH PRN (20:58)
--- NOTE | 2017-10-24 23:02 | RADRPT ---
EXAM DATE/TIME: 10/24/2017 21:37 [facility] COMPARISON: CT ABDOMEN & PELVIS W/O CONTRAST, October 14, 2017, 16:39. INDICATIONS : Severe sepsis, hypoxia. ORAL CONTRAST: Prescribed oral contrast ingested. RADIATION DOSE: 16.49 CTDIvol (mGy) MEDICAL HISTORY : None SURGICAL HISTORY : None. ENCOUNTER: Subsequent ACUITY: 2 weeks PAIN SCALE: 5/10 LOCATION: abdomen TECHNIQUE: Volumetric scanning of the abdomen and pelvis was performed. Using automated exposure control and adjustment of the mA and/or kV according to patient size, radiation dose was kept as low as reasonably achievable to obtain optimal diagnostic quality images. DICOM format image data is av ailable electronically for review and comparison. FINDINGS: LOWER LUNGS: Small bilateral pleural effusions as well as patchy infiltrates are noted within the visualized lung bases. LIVER: Hepatomegaly is noted. No focal mass is noted on this limited unenhanced exam. There is no dilation of the biliary tree. No calcified gallstones. SPLEEN: Splenomegaly is noted. PANCREAS: Within normal limits. KIDNEYS: Normal in size and shape. There is no mass, stone, or hydronephrosis. ADRENAL GLANDS: Within normal limits. VASCULAR: There is no aortic aneurysm. BOWEL/MESENTERY: The stomach, small bowel, and colon demonstrate no acute abnormality. There is no free intraperitoneal air. Moderate amount of ascites is noted throughout the abdomen and pelvis. ABDOMINAL WALL: Diffuse anasarca is noted. RETROPERITONEUM: There is no lymphadenopathy. BLADDER: No wall thickening or mass. REPRODUCTIVE: Within normal limits. INGUINAL: There is no lymphadenopathy or hernia. MUSCULOSKELETAL: Within normal limits for patient age. CONCLUSION: 1. Hepatosplenomegaly. 2. Moderate amount of ascites. 3. Diffuse anasarca. 4. Bibasilar pleural effusions and scattered infiltrates. Khoi Padilla MD on October 24, 2017 at 22:58 Board Certified Radiologist. This report was verified electronically.
[2017-10-25] VITALS (16 sets, daily range): BP systolic 82–102; BP diastolic 44–66; PULSE 93–125; RESP 18–37; TEMP 97.7–99.2; O2SAT 94–100
[2017-10-25] MEDS: MORPHINE SULFATE 4 MG/ML INJ IV PUSH PRN ×3 (00:33→17:04)
[2017-10-25] MEDS: RESP: ALBUTEROL 2.5 MG/3 ML NEB (PRN) NEB (01:24)
[2017-10-25] MEDS: HALOPERIDOL LACTATE 5 MG/ML AMP IV PUSH PRN ×3 (02:29→17:04)
[2017-10-25] MEDS: CHLORHEXIDINE GLUCONATE 2 % 1 PACK (2 CLOTHS) TOP SCH (04:00)
--- NOTE | 2017-10-25 05:19 | RADRPT ---
EXAM DATE/TIME: 10/25/2017 04:18 [facility] COMPARISON: CHEST SINGLE AP, October 23, 2017, 3:31. INDICATIONS : Shortness of breath, possible pulmonary disease. MEDICAL HISTORY : Sepsis. SURGICAL HISTORY : None. ENCOUNTER: Subsequent ACUITY: 2 weeks PAIN SCORE: 0/10 LOCATION: Bilateral chest FINDINGS: Right internal jugular catheter tip remains projected over the proximal superior vena cava. There is persistent airspace opacities in the left mid and lower lung, slightly improved from prior. Patchy infiltrates in the lower left lateral right lung, stable. CONCLUSION: Bilateral infiltrates, stable on the right, and slightly improved on the left. Mat Alejandra MD on October 25, 2017 at 5:17 Board Certified Radiologist. This report was verified electronically.
[2017-10-25] MEDS: METOPROLOL TARTRATE 25 MG TAB PO SCH ×3 (06:00→21:21)
[2017-10-25 07:42] LABS: AUTOMATED NEUTROPHIL # 15.9 TH/MM3 (1.8-7.7); BASOPHIL # 0.1 TH/MM3 (0-0.2); BASOPHIL % 0.6 % (0.0-2.0); EOSINOPHIL # 0.2 TH/MM3 (0-0.4); EOSINOPHIL % 1.3 % (0.0-4.0); HEMATOCRIT 21.8 % (39.0-51.0); HEMOGLOBIN 7.4 GM/DL (13.0-17.0); LYMPH % 5.3 % (9.0-44.0); MEAN CELL VOLUME 84.8 FL (80.0-100.0); MEAN CORPUSCULAR HEMOGLOBIN 28.8 PG (27.0-34.0); MEAN PLATELET VOLUME 9.3 FL (7.0-11.0); MONO % 6.3 % (0.0-8.0); MONOCYTE # 1.2 TH/MM3 (0-0.9); NEUT % 86.5 % (16.0-70.0); PLATELET COUNT 184 TH/MM3 (150-450); RED BLOOD COUNT 2.57 MIL/MM3 (4.50-5.90); RED CELL DISTRIBUTION WIDTH 20.3 % (11.6-17.2); WHITE BLOOD COUNT 18.4 TH/MM3 (4.0-11.0)
[2017-10-25] MEDS: CHLORHEXIDINE 0.12% (ORAL KIT) 15 ML CUP MT SCH ×2 (07:44→20:00)
[2017-10-25] MEDS: RESP: ALBUTEROL 2.5 MG/IPRATROPIUM 0.5 MG NEB (SCH) NEB ×3 (08:29→22:24)
[2017-10-25 08:50] LABS: BICARBONATE 23.6 MEQ/L (21.0-32.0); TOTAL PROTEIN 7.6 GM/DL (6.4-8.2); TRIGLYCERIDES 127 MG/DL (42-150)
[2017-10-25 09:32] LABS: ALBUMIN 2.9 GM/DL (3.4-5.0); ALKALINE PHOSPHATASE 77 U/L (45-117); ALT (GPT) 73 U/L (12-78); AST (GOT) 1500 U/L (15-37); BLOOD UREA NITROGEN 61 MG/DL (7-18); CALCIUM 8.2 MG/DL (8.5-10.1); CHLORIDE 88 MEQ/L (98-107); CREATININE 6.45 MG/DL (0.60-1.30); GLOMERULAR FILTRATION RATE 11 ML/MIN (>89); GLUCOSE,RANDOM 91 MG/DL (74-106); HDL CHOLESTEROL 8.5 MG/DL (40.0-60.0); MAGNESIUM 1.7 MG/DL (1.5-2.5); PHOSPHORUS 4.9 MG/DL (2.5-4.9); SODIUM (NA) 125 MEQ/L (136-145); TROPONIN I LESS THAN 0.02 NG/ML (0.02-0.05)
[2017-10-25] MEDS: CALCIUM ACETATE 667 MG CAP PO SCH ×3 (09:46→18:21)
[2017-10-25] MEDS: PANTOPRAZOLE SOD 40 MG DELAYED RELEASE TAB PO SCH ×2 (09:46→20:55)
[2017-10-25] MEDS: DOCUSATE SODIUM 50 MG/SENNA 8.6 MG TAB PO SCH ×2 (09:46→20:55)
[2017-10-25] MEDS: LACTOBACILLUS ACIDOPHILUS TAB PO SCH ×3 (09:46→18:21)
[2017-10-25] MEDS: FLUTICASONE PROPIONATE 44 MCG/ACT 10.6 GM INHALER INH SCH ×2 (09:46→20:56)
[2017-10-25] MEDS: SODIUM CHLORIDE 0.9% FLUSH 10 ML FLUSH IV FLUSH SCH ×2 (09:46→20:56)
[2017-10-25] MEDS: HEPARIN SODIUM - SQ 10,000 UNITS/ML VIAL SQ SCH ×2 (09:47→20:55)
[2017-10-25] MEDS: COLLAGENASE OINT 30 GM TUBE TOPICAL SCH (09:47)
[2017-10-25 09:50] LABS: CHOLESTEROL LESS THAN 50 MG/DL (120-200); CHOLESTEROL/ HDL RATIO 5.88 RATIO; LDL CHOLESTEROL 16 MG/DL (0-99)
[2017-10-25] MEDS: SODIUM CHLOR 0.9% 1000 ML INJ 1,000 ML OTHER PRN (10:39)
[2017-10-25] MEDS: GENTAMICIN SULFATE 20 MG/2 ML VIAL OTHER PRN (10:40)
[2017-10-25] MEDS: SODIUM CHLORIDE 0.9% FLUSH 10 ML FLUSH IV FLUSH PRN (10:40)
[2017-10-25] MEDS: HEPARIN SODIUM - IV 10,000 UNITS/10 ML VIAL PRN (10:40)
[2017-10-25] MEDS: EPOETIN ALFA 10,000 UNITS/ML VIAL IV PUSH PRN (10:41)
[2017-10-25] MEDS: ALBUMIN 25% INJ 100 ML IV PRN (10:42)
--- NOTE | 2017-10-25 14:25 | HHI.NPPN ---
Subjective Complaints: Shortness of Breath Renal Failure: Acute History of Present Illness Patient is 27-year-old male who reported to ER with body aches, 7 days of diarrhea with development fever. Past medical history of IV drug use. Patient is sedated and ventilated FiO2 at 40 %. Nephrology is consulted for ZEUS and fluid over load status. Patients creatinine is 3.02 and GFR 25ml/min. Patient is UOP at 800cc for last 24 hours. Weight has increased by over 10 kg since admission. IVF's have been stopped and lasix has been given. Patient has endocarditis with large tricuspid valve vegetation, and pulmonic vegetation. Noted to have bacteremia with hypotension with SBP in the 90's. Additional Remarks patient was seen and examined during dialysis. On 3K, UF goal is 2.5 liters. Right IJ Vascath. Patient is lethargic. Review of Systems Respiratory Lungs: SOB Cardiovascular Cardiac Remarks denies CP Psych Psych: Depression, Anxiety Objective Data Data 10/25/17 10/26/17 19:00 07:00 Output Total 2000 ml Balance -2000 ml Hemodialysis 2000 ml Vital Signs Date Time Temp Pulse Resp B/P (MAP) Pulse Ox O2 Delivery O2 Flow Rate FiO2 10/25/17 12:00 98.7 123 37 90/63 (72) 94 10/25/17 12:00 123 10/25/17 11:51 18 10/25/17 10:00 106 10/25/17 08:30 99 Nasal Cannula 3.00 10/25/17 08:00 99.0 95 18 84/53 (63) 100 10/25/17 08:00 95 10/25/17 06:00 100 10/25/17 04:00 99 10/25/17 04:00 98.8 99 27 83/51 (62) 98 10/25/17 02:00 109 10/25/17 00:00 109 10/25/17 00:00 98.6 109 25 102/66 (78) 97 10/24/17 22:00 106 10/24/17 20:21 100 Nasal Cannula 4.00 10/24/17 20:00 101 10/24/17 20:00 97.9 101 24 105/61 (76) 100 10/24/17 18:00 99 10/24/17 16:00 96 10/24/17 16:00 98.7 96 21 91/53 (66) 100 -: 10/25/17 0609 10/25/17 0609 Tubes & Lines: Vas-Cath Physical Exam General Appearance: No Acute Distress, Comfortable, Anxious Eyes Eye Exam: Pupils Equal Pulmonary Resp Exam: Decreased Bases, Diminished Breath Sounds, Poor Inspiratory Effort Cardiology CV Exam: Tachycardia Gastrointestinal/Abdomen GI Exam: Soft, Non-Tender, Bowel Sounds Present, Distended Integumentary Skin Exam: Clear, Warm Extremeties Extremities Exam: Moderate Edema Neurologic Neuro Exam: Alert, Awake Assessment/Plan Assessment Summary: ZEUS/Acute Renal Failure Electrolyte Assessment: Hyponatremia Problem List: (1) ZEUS (acute kidney injury) ICD Codes: N17.9 - Acute kidney failure, unspecified Plan: ZEUS most likely ATN from sepsis and low blood pressure. Other differential will be ATN, Acute interstitial nephritis, and Post infectious GN,unlikely. Continue dialysis TTS. Monitor for signs of renal recovery. Monitor urine output. (2) Sepsis ICD Codes: A41.9 - Sepsis, unspecified organism Status: Acute Plan: Antibiotics per ID (3) Endocarditis ICD Codes: I38 - Endocarditis, valve unspecified Status: Acute Problem Qualifiers (1) Sepsis: Qualified Codes: A41.9 - Sepsis, unspecified organism (2) Endocarditis: Gadiel Farrar MD Oct 25, 2017 14:25
[2017-10-25] MEDS: TEMAZEPAM 15 MG CAP PO PRN (20:55)
[2017-10-25] MEDS ORDERED: SODIUM CHLORIDE 1 GRAM TAB PO ONE (21:00)
--- NOTE | 2017-10-25 21:02 | HHI.CCPN ---
Subjective Remarks/Hospital Course 27-year-old male with remote history of IV drug abuse, states he last used heroin 2 months ago, presents for evaluation of 8 days of body aches, 7 days of diarrhea with development of subjective fever yesterday. Patient denies any nausea or vomiting. He denies any chest pain. States that he is short of breath and feels anxious. This has developed within the last 24 hours. Patient does have a cough with clear sputum. Denies any prior history of endocarditis. Denies any abdominal pain. Does report some left back pain, worse while lying flat. He is well reports generalized weakness. 10/04/17: He is critically ill, remains febrile up to 103, tachycardic diaphoretic. large tricuspid valve vegetation on bedside echo, formal echo pending. Infectious disease consulted, CT surgery consult ordered. D/W Dr. Macias and Dr. Charles. CARMEN/printed circuit board designer consult ordered. Hb 6.6 getting 2U PRBC 10/05: Remains critically ill intubated sedated. TE on yesterday TEF 40-45%. Large mobile vegetation noted on the tricuspid valve, may be 2 separate vegetations, measures overall 4cm x 1.7cm. Probable mobile density noted on the pulmonic valve. CT of the chest shows extensive septic emboli and consolidation , with loculated appearing effusion on the left base. Dr. Charles CT surgery recommends 4-6 weeks of IV antibiotics followed by repeat echo, considering surgery at that time if no improvement 10/06: Worsening CXR, with bibasilar worsening infiltrates and effusion. IR to place CT-guided left chest tube today for loculated effusion. Fluid overloaded approximately 8 kg. IV Lasix 40 mg x1. MSSA bacteremia persists 10/07: Remains intubated sedated remains critical severe volume overload with worsening renal function creatinine 3, weight up by at least [address] him on Bumex infusion and consult nephrology. Patient remains slightly oliguric 800 mL urine output in 24 hours. Chest x-ray showed bilateral infiltrates and worsening right effusion 10/08: Remains intubated heavily sedated oliguric. Continues to have positive fluid balance creatinine increased to 4.3. Hemoglobin 6.9. Currently on Bumex infusion with not adequate response. Persistently bacteremic. Bilateral infiltrates on chest x-ray with moderate right effusion 10/09: Intubated sedated remains severely fluid overloaded started on hemodialysis yesterday with 4 L removed still positive fluid balance. Hemoglobin 6.81 unit PRBC transfusion ordered along with calcium replacement. GI consulted for further workup. Large pleural effusion on right side plan for pigtail chest tube placement 10/10: Intubated sedated. Had HD with 25L removed yesterday. right chest tube placed yesterday 1.2 L of old blood tinged effusion drained-Gram stain negative. Chest x-ray shows improvement in effusion. Remains severely fluid overloaded still remains 16-17 kg up. Discussed with nephrology plan for HD with maximum fluid removal as tolerated 10/11: The patient continues on sedation intubated, opens eyes spontaneously, not follow commands. The patient underwent hemodialysis yesterday approximately 3 L off. Bilateral chest tubes no leak noted. Minimal output left chest tube. 10/12: Daily sedation vacation initiated, opens eyes spontaneously, and following commands as squeezing hands bilaterally. Movement of lower extremities. She noted to have very thick secretions. Hemodialysis performed yesterday, approximately 3 L off. Patient noted to have thick copious secretions from airway, with worsening airspace disease on the right. Gen. surgery consulted for tracheostomy. 10/13: Patient remains critically ill opens eyes and follows commands on sedation hold. Did not tolerate CPAP trial today. Cancelled gen surgery consult for trach due to possible need for valve surgery. Continues to spike fever. Plan for changing line today 10/14: Plan for removal of vas catheter today, and to be replaced on . CT of the abdomen and pelvis pending. The patient was noted to have a drop in hemoglobin to 6.9 patient being transfused 1 unit of packed red blood cells. Left chest tube TPA instilled per IR serosanguineous drainage from left chest tube. Right chest tube placed to waterseal. 10/15: Afebrile. Patient continues on CPAP this am > 3 hours currently. Patient following commands. Discussed with Gen. Surgery, Ms. Zelaya to continue CPAP trials today. Per General Surgery conversation with CTS, Dr. Charles, if patient continues to fail CPAP trials, ok'd with CTS for tracheostomy. Pt received 1 u PRBC yesterday, Hgb, stable. 10/16: Tolerated CPAP 12/5 for several hours but still remains very fluid overloaded. Vas-Cath removed 10/14/17, will place new VasCath today for HD. Attempt maximum fluid removal. Blood cultures from 10/13 remains negative, but still spiking fever T-max 102.1 10/17: Patient tolerating CPAP better today at 10/5. Fever trending down. Hemoglobin dropped to 6.7. Plan was to do hemodialysis with maximum fluid removal and then extubated but patient ended up self extubating. I have discussed with Dr. Tapia who will dialyze today 10/18: Extubated yesterday tolerating well respiratory acosta. Getting hemodialysis today with target removal of 3.5 L. Urine output is 400 mL in 24 hours. Bilateral chest tube output minimal. Hemoglobin remaining stable. Bedside echo shows large essentially unchanged TV vegetation 10/19: Patient is breathing comfortably had hemodialysis yesterday with 3 L removed. Urine output 400 mL approximately in 24 hours. Bedside echo shows unchanged size and the tricuspid regurgitation. I discussed with Dr. Charles today-he is declining surgery due to active drug use, however will contact in no acute floor against tomorrow to see whether they will perform tricuspid valve surgery. If declined at [place] I will attempt [facility] for transfer 10/20: Breathing comfortably, but tearful emotional, hemodialysis plan for today. Creatinine slightly worsened urine output approximately 400 mL in 24 hours. Left chest tube to be removed by IR today. Waiting to hear back from [facility] regarding transfer for valve surgery. Declined by our thoracic surgeon due to active drug use and multiple complications 10/21: T-max 100.4. Currently 100. Resting in bed on nasal cannula in no acute distress. Receiving hemodialysis today 10/22: Being baptized today. Requesting transfer to [facility]. Discussed with cardiothoracic surgeon who stated current plan by Dr. Charles regarding moderate tricuspid regurgitation is adequate. We will recheck echocardiogram in 1-2 weeks or if clinically indicated. Currently complaining of some neck pain while sitting in chair 10/23: Being transfused 1 unit PRBCs today. Currently receiving hemodialysis. Denies back pain.. Request to go to chair. Tolerating diet. Remains on nasal cannula. 10/24: Resting in bed in no acute distress. Afebrile. Requesting to go to chair. Tolerating diet. Remains on nasal cannula. AST elevated. Discontinue rifampin and possible hepatotoxic drugs. Liver ultrasound pending. Will CT abdomen and pelvis rule out hepatic, pancreatic, renal infarct or musculoskeletal source. CPK low normal. Amylase and lipase pending. Subjective 10/25: Out of bed to chair today. Remains on nasal cannula.. No new issues past [address] abdomen/pelvis revealed hepatosplenomegaly/ ascites. No signs of nephrotic infarction, acalculous cholecystitis. CPK and troponin negative. Objective Vital Signs Date Time Temp Pulse Resp B/P (MAP) Pulse Ox O2 Delivery O2 Flow Rate FiO2 10/25/17 18:00 93 10/25/17 17:09 18 10/25/17 16:00 99.2 87/51 (63) 95 10/25/17 08:30 Nasal Cannula 3.00 Intake and Output 10/25/17 10/25/17 10/26/17 08:00 16:00 00:00 Intake Total 580 ml Output Total 2000 ml 0 ml Balance 580 ml -2000 ml 0 ml Result Diagram: 10/25/17 0609 10/25/17 0609 Other Results Microbiology Date/Time Source Procedure Growth Status 10/18/17 15:40 Blood Peripheral Aerobic Blood Culture - Final NO GROWTH IN 5 DAYS Complete 10/18/17 15:40 Blood Peripheral Anaerobic Blood Culture - Final NO GROWTH IN 5 DAYS Complete 10/09/17 12:00 Fluid Pleural Fluid Fungal Smear - Final NO FUNGAL ELEMENTS SEEN. Resulted 10/09/17 12:00 Fluid Pleural Fluid Fungal Culture - Preliminary NO GROWTH IN 2 WEEKS Resulted 10/16/17 12:55 Sputum Endotracheal Gram Stain - Final Complete 10/16/17 12:55 Sputum Endotracheal Sputum Culture - Final RARE GROWTH NORMAL RESPIRATORY RHIANNON Complete 10/03/17 21:30 Urine Random Urine Legionella Antigen - Final PRESUMPTIVE NEGATIVE FOR LEGIONELLA P... Complete 10/03/17 21:30 Urine Random Urine Streptococcus pneumoniae Antigen (M - Final PRESUMPTIVE NEGATIVE FOR STREPTOCOCCU... Complete Imaging Last Impressions Chest X-Ray 10/25/17 0600 Signed Impressions: Service Date/Time: Wednesday, October 25, 2017 04:18 - CONCLUSION: Bilateral infiltrates, stable on the right, and slightly improved on the left. Mat Alejandra MD Liver Ultrasound 10/24/17 0000 Signed Impressions: Service Date/Time: Tuesday, October 24, 2017 16:43 - CONCLUSION: Hepatosplenomegaly with ascites. Echogenic kidney Madi Mccartney MD Abdomen/Pelvis CT 10/24/17 0000 Signed Impressions: Service Date/Time: Tuesday, October 24, 2017 21:37 - CONCLUSION: 1. Hepatosplenomegaly. 2. Moderate amount of ascites. 3. Diffuse anasarca. 4. Bibasilar pleural effusions and scattered infiltrates. Khoi Padilla MD Tunnelled Chest Tube Removal 10/20/17 0000 Signed Impressions: Service Date/Time: Friday, October 20, 2017 00:00 - CONCLUSION: Uncomplicated chest tube removal. Madi Mccartney MD Chest CT 10/14/17 0000 Signed Impressions: Service Date/Time: Saturday, October 14, 2017 00:26 - CONCLUSION: 1. Bilateral scattered pulmonary nodules are again noted. Several of the right nodules are now cavitary and likely represent septic emboli given the history of IV drug abuse. 2. Interval placement of bilateral chest tubes with small pleural effusions noted. 3. Dense consolidation remains in the posterior lower lobes. Jorge Jang MD Upper Extremity Ultrasound 10/13/17 0000 Signed Impressions: Service Date/Time: Friday, October 13, 2017 11:25 - CONCLUSION: Normal examination. Christian Kaur MD Abdomen X-Ray 10/10/17 0000 Signed Impressions: Service Date/Time: Tuesday, October 10, 2017 16:46 - CONCLUSION: Negative for free air or obstruction. Rahul Yarbrough MD FACR Chest Tube Insertion 10/06/17 0000 Signed Impressions: Service Date/Time: Friday, October 06, 2017 15:37 - CONCLUSION: Uncomplicated chest tube placement as above. Emerson Hui MD Objective Remarks GENERAL: 27-year-old male resting in bed in no acute distress on nasal cannula SKIN: Warm and dry. Extensive tattoos limits skin exam. Anasarca. Positive carrera HEAD: Normocephalic. EYES: No scleral icterus. No injection or drainage. Slight periorbital edema noted. ENT: Oral cavity moist NECK: Supple, trachea midline. No JVD or lymphadenopathy. RIJ Vascath in place. Clean dry and intact CARDIOVASCULAR: S1-S2 no S4.. 2 out of 6 systolic murmur at the left sternal border. RESPIRATORY: Air entry is equal bilaterally, coarse rhonchi and crackles. Left pig tail chest tubes in place. Minimal output GASTROINTESTINAL: Abdomen soft, non-tender, nondistended. MUSCULOSKELETAL: Positive anasarca NEURO EXAM: Alert awake oriented, Pupils are round, reactive to light. Moving all extremities follows commands no focal deficit Urinary Catheter: No Assessment to: Continue Vascular Central Line Catheter: No Assessment to: Continue A/P Assessment and Plan Neuro/Psych IVDU Morphine sulfate 2 mg IV every 2 hours as needed pain 6 to 10 Continue Fentanyl patch 75 mcg every 72 hours Resp: Acute hypoxemic respiratory failure, improved Extensive septic emboli, consolidation of the lung Loculated left effusion, large right effusion - Extubated 10/17 (Self extubated while on CPAP for planned extubation) - IR placed left chest tube 10/06 with more than 1 L exudative fluid out. Removed 10/20 - Dr. Barraza placed right-sided pigtail chest tube at the bedside 10/09, brown tinged fluid approximately 1.1 L initial output, now output is minimum - Removed right chest tube 10/18/17. - Broad-spectrum antibiotics per ID, see below - Nasal cannula to maintain saturations greater than equal to 92% - Incentive spirometry while awake - Albuterol/ipratropium aerosols every 6 hours while awake with albuterol aerosols every 2 hours. Dyspnea - EzPAP every 6 hours since 10/17 - Fluticasone 44 mcg inhalation twice daily CVS: Large tricuspid valve vegetation Small pericardial effusion Acute systolic heart failure Mild pulmonary hypertension - Bedside echo shows large tricuspid vegetation. repeat bedside echo today 10/18 similar size - Cardiology and CT surgery has followed. D/W Dr. Charles declined surgery due to active IV drug use, multiple medical complications. Discussed with [facility] who agreed with plan of our cardiothoracic surgeon. No transfer at this time. May consider [facility] as third option if tricuspid valve on future echocardiograms reveal worsening tricuspid regurgitation - CARMEN 10/04: EF 45-50 %. Large mobile vegetation on tricuspid valve, 2 separate vegetations 2.1 x 3.2 cm and 2.6 x 0.8 cm. PIP 40.7 mmHg -Echo 10/20 -EF 35-40%. Tricuspid valve vegetation Currently on metoprolol tartrate 25 mg p.o. every 8 hours GI: Hepatosplenomegaly Diarrhea Hypoalbuminemia Hepatitis C genotype 1A Elevated ceruloplasmin MARTÍN +1/40 diffuse Elevated total bilirubin Elevated AST -Pantoprazole 40 mg p.o. twice daily due to persistent anemia. GI has followed currently signed off - Hepatitis C reactive. Genotype 1a Viral load 10,700 -Renal diet -Docusate sodium/senna 1 tablet twice daily for bowel regimen Hepatic ultrasound revealed hepatosplenomegaly.. CT abdomen/pelvis 10/24 revealed no obvious hepatic, pancreatic, nephrotic versus musculoskeletal source. Hepatosplenomegaly. Moderate ascites. Anasarca. CPK and troponin normal. Discontinue nephrotoxic drugs including rifampin and acetaminophen Repeat liver function tests in a.m. 10/26 Renal/: Acute kidney failure with fluid overload - Started hemodialysis 10/08,above. - Continue intermittent HD for fluid removal. -2 L today 10/25 - Strict I's and O's, Monitor trend of creatinine - Replace electrolytes as clinically indicated - 10/14-removed vas catheter. Replaced on 10/16 ID: Tricuspid and pulmonic valve endocarditis Septic emboli to the lung Severe sepsis MSSA bacteremia - Discussed with Dr. Charles CT surgery 10/05/17, 10/19, deemed not a surgical candidate, await input from [facility] - Cefazolin per ID Dr. Macias. 10/22 discontinued vancomycin 125 mg 4 times daily. discontinue rifampin due to elevated AST - Persistent MSSA bacteremia 10/04, 10/05 10/07 blood cultures, cultures reviewed. Blood cultures from 10/13 negative, fever trending down now Endo: Sliding scale insulin if indicated Heme: Anemia requiring transfusion Leukocytosis Normocytic anemia - Transfuse PRBC to keep Hb>7.0 - LDH mildly elevated and haptoglobin normal, Transfusion 1u PRBC on 10/14, 10/17 and 10/23 and 10/25 - Monitor CBC, Coags - Thrombocytopenia most likely from sepsis and DIC has resolved -Epogen 10,000 units as needed with hemodialysis MSK: PT evaluate and treat FEN: Hyponatremia Replace electrolytes as clinically indicated Hyponatremia workup ordered. See orders DVT GI prophylaxis - TEDs SCDs - Started Heparin 5000 U sq q12-DCD 10/17 due to persistent anemia requiring transfusion Restart 10/21 -Pantoprazole 40 q12 Level 2 follow-up Danny Marie MD Oct 25, 2017 21:02
[2017-10-26] VITALS (19 sets, daily range): BP systolic 94–110; BP diastolic 50–59; PULSE 95–112; RESP 17–30; TEMP 97.9–98.9; O2SAT 93–100
[2017-10-26] MEDS: CHLORHEXIDINE GLUCONATE 2 % 1 PACK (2 CLOTHS) TOP SCH ×2 (02:42→21:40)
[2017-10-26] MEDS: MORPHINE SULFATE 4 MG/ML INJ IV PUSH PRN ×4 (02:42→21:41)
[2017-10-26] MEDS: RESP: ALBUTEROL 2.5 MG/IPRATROPIUM 0.5 MG NEB (SCH) NEB ×4 (03:07→21:02)
[2017-10-26] MEDS: HALOPERIDOL LACTATE 5 MG/ML AMP IV PUSH PRN ×2 (04:57→23:39)
--- NOTE | 2017-10-26 06:03 | RADRPT ---
EXAM DATE/TIME: 10/26/2017 03:32 [place] COMPARISON: CHEST SINGLE AP, October 25, 2017, 4:18. INDICATIONS : Shortness of breath, possible pulmonary disease. MEDICAL HISTORY : Sepsis. SURGICAL HISTORY : None. ENCOUNTER: Subsequent ACUITY: 2 weeks PAIN SCORE: 0/10 LOCATION: Bilateral chest FINDINGS: Right internal jugular catheter tip projects in the right atrium. Patchy airspace infiltrates in the periphery of the mid and lower lungs bilaterally are similar to prior exam. The heart is stable in size. CONCLUSION: Stable bilateral patchy infiltrates. Mat Alejandra MD on October 26, 2017 at 6:01 Board Certified Radiologist. This report was verified electronically.
[2017-10-26] MEDS: METOPROLOL TARTRATE 25 MG TAB PO SCH ×3 (06:09→21:40)
[2017-10-26 06:30] LABS: AUTOMATED NEUTROPHIL # 14.9 TH/MM3 (1.8-7.7); BASOPHIL # 0.2 TH/MM3 (0-0.2); BASOPHIL % 0.9 % (0.0-2.0); EOSINOPHIL # 0.2 TH/MM3 (0-0.4); EOSINOPHIL % 1.3 % (0.0-4.0); HEMATOCRIT 22.6 % (39.0-51.0); HEMOGLOBIN 7.6 GM/DL (13.0-17.0); LYMPH % 3.9 % (9.0-44.0); LYMPHOCYTE # 0.7 TH/MM3 (1.0-4.8); MEAN CELL VOLUME 85.1 FL (80.0-100.0); MEAN CORPUSCULAR HEMOGLOBIN 28.7 PG (27.0-34.0); MEAN CORPUSCULAR HGB CONC 33.7 % (32.0-36.0); MEAN PLATELET VOLUME 8.5 FL (7.0-11.0); MONOCYTE # 1.2 TH/MM3 (0-0.9); NEUT % 86.9 % (16.0-70.0); PLATELET COUNT 139 TH/MM3 (150-450); RED BLOOD COUNT 2.65 MIL/MM3 (4.50-5.90); RED CELL DISTRIBUTION WIDTH 19.6 % (11.6-17.2); WHITE BLOOD COUNT 17.1 TH/MM3 (4.0-11.0)
[2017-10-26 07:05] LABS: CORTISOL 26.7 MCG/DL
[2017-10-26 07:15] LABS: ALBUMIN 2.9 GM/DL (3.4-5.0); ALKALINE PHOSPHATASE 90 U/L (45-117); ALT (GPT) 37 U/L (12-78); AST (GOT) 697 U/L (15-37); BLOOD UREA NITROGEN 47 MG/DL (7-18); CALCIUM 8.7 MG/DL (8.5-10.1); CHLORIDE 90 MEQ/L (98-107); CREATININE 5.53 MG/DL (0.60-1.30); GLOMERULAR FILTRATION RATE 13 ML/MIN (>89); GLUCOSE,RANDOM 85 MG/DL (74-106); MAGNESIUM 1.6 MG/DL (1.5-2.5); PHOSPHORUS 3.9 MG/DL (2.5-4.9); SODIUM (NA) 128 MEQ/L (136-145); TOTAL BILIRUBIN ADULT 2.1 MG/DL (0.2-1.0); TOTAL PROTEIN 7.9 GM/DL (6.4-8.2)
[2017-10-26] MEDS: LACTOBACILLUS ACIDOPHILUS TAB PO SCH ×3 (07:51→18:41)
[2017-10-26] MEDS: COLLAGENASE OINT 30 GM TUBE TOPICAL SCH (07:51)
[2017-10-26] MEDS: SODIUM CHLORIDE 1 GRAM TAB PO SCH (07:51)
[2017-10-26] MEDS: PANTOPRAZOLE SOD 40 MG DELAYED RELEASE TAB PO SCH ×2 (07:51→21:40)
[2017-10-26] MEDS: HEPARIN SODIUM - SQ 10,000 UNITS/ML VIAL SQ SCH ×2 (07:51→21:40)
[2017-10-26] MEDS: CALCIUM ACETATE 667 MG CAP PO SCH ×3 (07:52→18:41)
[2017-10-26] MEDS: SODIUM CHLORIDE 0.9% FLUSH 10 ML FLUSH IV FLUSH SCH ×2 (07:52→21:39)
[2017-10-26] MEDS: DOCUSATE SODIUM 50 MG/SENNA 8.6 MG TAB PO SCH ×2 (07:52→21:00)
[2017-10-26] MEDS: FLUTICASONE PROPIONATE 44 MCG/ACT 10.6 GM INHALER INH SCH ×2 (07:52→21:39)
[2017-10-26] MEDS: CHLORHEXIDINE 0.12% (ORAL KIT) 15 ML CUP MT SCH ×2 (07:53→20:00)
--- NOTE | 2017-10-26 11:37 | HHI.IDPN ---
Subjective Subjective Remarks is a 27 y/o CM with remote history of IV drug abuse, states he last used heroin 2 months ago, presents for evaluation of body aches, 7 days of diarrhea with development of subjective fever yesterday. Patient denies any nausea or vomiting. He denies any chest pain. This has developed within the last 24 hours. Patient does have a cough with clear sputum. Denies any prior history of endocarditis. Denies any abdominal pain. Does report some left back pain, worse while lying flat. He is well reports generalized weakness. Patient met criteria for sepsis on admission. Flu antigen negative. CXR with bilateral infiltrates. performed a bedside 2D ECHO and verbally reported a large ~4.5 cm vegetation on TV. CXR suspicious for septic emboli. Blood cultures drawn but it appears patient has received augmentin at some point and cultures may possibly be negative. ID is following for evaluation and M'ment of Severe Sepsis and Endocarditis. Overnight events reviewed. Awake,AAOx3,NF. BP ok HD tues, thurs and Sat No rash No diarrhea Antibiotics Current Medications Medications (Trade) Dose Ordered Sig/Willem Route Start Time Stop Time Status Last Admin (NS Flush) 2 ml UNSCH PRN IV FLUSH 10/03/17 21:15 10/15/17 20:58 (NS Flush) 2 ml BID IV FLUSH 10/04/17 09:00 10/24/17 08:41 (Morphine Inj) 2 mg Q2H PRN IV PUSH 10/03/17 21:15 10/23/17 20:32 (Zofran Inj) 4 mg Q6H PRN IV PUSH 10/03/17 21:15 10/23/17 16:35 (Restoril) 15 mg HS PRN PO 10/03/17 21:15 Miscellaneous Information 1 Q361D XX 10/03/17 21:15 (Chlorhexidine 2% Cloth) 3 pack Taper DAILY@04 TOP 10/04/17 04:00 09/30/18 03:59 10/24/17 04:00 (Chlorhexidine 2% Cloth) 3 pack UNSCH PRN TOP 10/03/17 21:15 (Renita-Colace) 1 tab BID PO 10/04/17 09:00 10/23/17 20:29 (Senokot) 17.2 mg Q12H PRN PO 10/03/17 21:15 (Dulcolax Supp) 10 mg DAILY PRN RECTAL 10/03/17 21:15 10/11/17 17:08 (Lactulose Liq) 30 ml DAILY PRN PO 10/03/17 21:15 10/11/17 17:08 (Flovent Hfa 44 Mcg Inh) 2 puff BID INH 10/04/17 09:00 10/24/17 08:41 (Peridex 0.12% Liq) 15 ml BID@08,20 MT 10/04/17 20:00 10/19/17 08:23 Sodium Chloride 1,000 ml @ 0 mls/hr Q0M PRN OTHER 10/08/17 10:33 10/17/17 14:00 (Heparin Inj) 8,000 units UNSCH PRN IV FLUSH 10/08/17 10:45 Sodium Chloride 1,000 ml @ 200 mls/hr Q5H PRN IV 10/08/17 11:15 10/11/17 08:57 Sodium Chloride 1,000 ml @ 0 mls/hr Q0M PRN OTHER 10/08/17 11:15 (Mannitol Inj) 12.5 gm UNSCH PRN IV 10/08/17 11:15 Albumin Human 100 ml @ 60 mls/hr UNSCH PRN IV 10/08/17 11:30 10/23/17 10:15 (NS Flush) 5 ml UNSCH PRN IV FLUSH 10/08/17 11:15 10/18/17 11:26 (Heparin Inj) UNSCH PRN .XX 10/08/17 11:15 10/23/17 12:14 (Gentamicin Inj) 20 mg UNSCH PRN OTHER 10/08/17 11:15 10/23/17 12:13 (Zofran Inj) 4 mg UNSCH PRN IV PUSH 10/08/17 11:15 (Benadryl) 25 mg UNSCH PRN PO 10/08/17 11:15 (Nitrostat Sl) 0.4 mg UNSCH PRN SL 10/08/17 11:30 (Catapres) 0.1 mg UNSCH PRN PO 10/08/17 11:30 (Epogen Inj) 10,000 units UNSCH PRN IV PUSH 10/08/17 11:30 10/23/17 12:14 (Gelfoam 12 Mm/7 Mm Top) 1 foam UNSCH PRN TOP 10/08/17 11:30 (Lactinex) 1 tab TID PO 10/17/17 13:00 10/24/17 08:39 (Duragesic 100 Mcg Patch.72 Hr) 1 patch Q3D T-DERMAL 10/18/17 12:00 10/24/17 12:32 Miscellaneous Information 1 Q3D T-DERMAL 10/21/17 12:00 10/24/17 12:00 (Lopressor) 50 mg Q8HR PO 10/20/17 14:00 10/24/17 12:31 (Santyl Oint) 1 applic DAILY TOPICAL 10/20/17 16:00 10/24/17 08:40 (Duoneb Neb) 1 ampule Q6HR WHILE AWAKE NEB NEB 10/21/17 14:00 10/24/17 11:26 (Albuterol Neb) 2.5 mg Q2HR NEB PRN NEB 10/21/17 13:30 10/22/17 05:12 (Protonix) 40 mg Q12HR PO 10/21/17 21:00 10/24/17 08:39 ([place] 5-325 Mg) 1 tab Q4H PRN PO 10/21/17 13:45 10/23/17 16:36 (Heparin Inj) 5,000 units Q12HR SQ 10/21/17 21:00 10/24/17 08:40 (Phoslo) 667 mg TID PO 10/23/17 13:00 10/24/17 12:31 Cefazolin Sodium 1000 mg/Sodium Chloride 100 ml @ 200 mls/hr Q12H IV 10/24/17 03:00 10/24/17 02:21 (Haldol Inj) 5 mg Q4H PRN IV PUSH 10/23/17 23:30 10/24/17 04:49 Lines Line sites with no e.o infection Past Medical History Asthma HCV Past Surgical History No surgical history per records. Allergies: Coded Allergies: erythromycin base (Verified Allergy, Severe, Nausea/Vomiting, 10/03/17) raspberry (Unverified Allergy, Mild, 10/03/17) Objective . Vital Signs Date Time Temp Pulse Resp B/P (MAP) Pulse Ox O2 Delivery O2 Flow Rate FiO2 10/26/17 11:00 108 26 97/53 (68) 95 10/26/17 11:00 108 10/26/17 10:00 105 23 94/50 (65) 10/26/17 10:00 105 10/26/17 09:00 108 28 97/52 (67) 97 10/26/17 09:00 108 10/26/17 08:05 99 Nasal Cannula 4.00 10/26/17 08:00 110 10/26/17 08:00 98.1 110 17 100/56 (71) 97 10/26/17 06:00 109 10/26/17 04:00 98.9 107 28 110/55 (73) 93 10/26/17 04:00 107 10/26/17 02:00 100 10/26/17 00:00 98.9 95 19 94/51 (65) 100 10/26/17 00:00 95 10/25/17 22:24 100 Nasal Cannula 4.00 10/25/17 22:00 96 10/25/17 21:05 97.7 97 23 90/55 95 10/25/17 20:52 98.6 93 18 86/53 95 10/25/17 20:00 98.6 101 21 82/44 (57) 95 10/25/17 20:00 101 10/25/17 18:00 93 10/25/17 17:09 18 10/25/17 16:00 99.2 118 33 87/51 (63) 95 10/25/17 16:00 118 10/25/17 14:00 125 10/25/17 12:00 98.7 123 37 90/63 (72) 94 10/25/17 12:00 123 . Microbiology Date/Time Source Procedure Growth Status 10/18/17 15:40 Blood Peripheral Aerobic Blood Culture - Final NO GROWTH IN 5 DAYS Complete 10/18/17 15:40 Blood Peripheral Anaerobic Blood Culture - Final NO GROWTH IN 5 DAYS Complete 10/09/17 12:00 Fluid Pleural Fluid Fungal Smear - Final NO FUNGAL ELEMENTS SEEN. Resulted 10/09/17 12:00 Fluid Pleural Fluid Fungal Culture - Preliminary NO GROWTH IN 2 WEEKS Resulted 10/16/17 12:55 Sputum Endotracheal Gram Stain - Final Complete 10/16/17 12:55 Sputum Endotracheal Sputum Culture - Final RARE GROWTH NORMAL RESPIRATORY RHIANNON Complete 10/03/17 21:30 Urine Random Urine Legionella Antigen - Final PRESUMPTIVE NEGATIVE FOR LEGIONELLA P... Complete 10/03/17 21:30 Urine Random Urine Streptococcus pneumoniae Antigen (M - Final PRESUMPTIVE NEGATIVE FOR STREPTOCOCCU... Complete Laboratory Tests Test 10/24/17 05:20 10/24/17 11:46 10/25/17 06:09 10/26/17 06:21 White Blood Count 14.9 TH/MM3 18.4 TH/MM3 17.1 TH/MM3 Red Blood Count 2.71 MIL/MM3 2.57 MIL/MM3 2.65 MIL/MM3 Hemoglobin 7.7 GM/DL 7.4 GM/DL 7.6 GM/DL Hematocrit 23.0 % 21.8 % 22.6 % Mean Corpuscular Volume 84.9 FL 84.8 FL 85.1 FL Mean Corpuscular Hemoglobin 28.4 PG 28.8 PG 28.7 PG Mean Corpuscular Hemoglobin Concent 33.4 % 34.0 % 33.7 % Red Cell Distribution Width 20.6 % 20.3 % 19.6 % Platelet Count 182 TH/MM3 184 TH/MM3 139 TH/MM3 Mean Platelet Volume 9.3 FL 9.3 FL 8.5 FL Neutrophils (%) (Auto) 80.3 % 86.5 % 86.9 % Lymphocytes (%) (Auto) 8.6 % 5.3 % 3.9 % Monocytes (%) (Auto) 7.8 % 6.3 % 7.0 % Eosinophils (%) (Auto) 1.8 % 1.3 % 1.3 % Basophils (%) (Auto) 1.5 % 0.6 % 0.9 % Neutrophils # (Auto) 12.0 TH/MM3 15.9 TH/MM3 14.9 TH/MM3 Lymphocytes # (Auto) 1.3 TH/MM3 1.0 TH/MM3 0.7 TH/MM3 Monocytes # (Auto) 1.2 TH/MM3 1.2 TH/MM3 1.2 TH/MM3 Eosinophils # (Auto) 0.3 TH/MM3 0.2 TH/MM3 0.2 TH/MM3 Basophils # (Auto) 0.2 TH/MM3 0.1 TH/MM3 0.2 TH/MM3 CBC Comment DIFF FINAL DIFF FINAL DIFF FINAL Differential Comment Blood Urea Nitrogen 50 MG/DL 61 MG/DL 47 MG/DL Creatinine 5.31 MG/DL 6.45 MG/DL 5.53 MG/DL Random Glucose 87 MG/DL 91 MG/DL 85 MG/DL Total Protein 8.2 GM/DL 8.5 GM/DL 7.6 GM/DL 7.9 GM/DL Albumin 3.2 GM/DL 3.3 GM/DL 2.9 GM/DL 2.9 GM/DL Calcium Level 8.8 MG/DL 8.2 MG/DL 8.7 MG/DL Phosphorus Level 5.2 MG/DL 4.9 MG/DL 3.9 MG/DL Magnesium Level 1.8 MG/DL 1.7 MG/DL 1.6 MG/DL Alkaline Phosphatase 77 U/L 82 U/L 77 U/L 90 U/L Aspartate Amino Transf (AST/SGOT) 1257 U/L 1628 U/L 1500 U/L 697 U/L Alanine Aminotransferase (ALT/SGPT) 53 U/L 68 U/L 73 U/L 37 U/L Total Bilirubin 2.9 MG/DL 2.8 MG/DL 2.0 MG/DL 2.1 MG/DL Sodium Level 128 MEQ/L 125 MEQ/L 128 MEQ/L Potassium Level 3.8 MEQ/L 3.9 MEQ/L 3.7 MEQ/L Chloride Level 89 MEQ/L 88 MEQ/L 90 MEQ/L Carbon Dioxide Level 23.5 MEQ/L 23.6 MEQ/L 22.0 MEQ/L Anion Gap 16 MEQ/L 13 MEQ/L 16 MEQ/L Estimat Glomerular Filtration Rate 13 ML/MIN 11 ML/MIN 13 ML/MIN Direct Bilirubin 1.8 MG/DL Indirect Bilirubin 1.0 MG/DL Ammonia 24 MCMOL/L Total Creatine Kinase 31 U/L Troponin I LESS THAN 0.02 NG/ML C-Reactive Protein 17.00 MG/DL Triglycerides Level 127 MG/DL Cholesterol Level LESS THAN 50 MG/DL LDL Cholesterol 16 MG/DL HDL Cholesterol 8.5 MG/DL Cholesterol/HDL Ratio 5.88 RATIO Amylase Level 36 U/L Lipase 157 U/L Uric Acid 9.2 MG/DL Serum Osmolality 284 MOSM/KG Random Cortisol 26.7 MCG/DL Imaging Last Impressions Chest X-Ray 10/16/17 0600 Signed Impressions: Service Date/Time: September 04:06 - CONCLUSION: 1. Cardiomegaly with airspace disease and apparent small effusions most characteristic of congestive heart failure. Jorge Jang MD Chest CT 10/14/17 0000 Signed Impressions: Service Date/Time: Saturday, October 14, 2017 00:26 - CONCLUSION: 1. Bilateral scattered pulmonary nodules are again noted. Several of the right nodules are now cavitary and likely represent septic emboli given the history of IV drug abuse. 2. Interval placement of bilateral chest tubes with small pleural effusions noted. 3. Dense consolidation remains in the posterior lower lobes. Jorge Jang MD Abdomen/Pelvis CT 10/14/17 0000 Signed Impressions: Service Date/Time: Saturday, October 14, 2017 16:39 - CONCLUSION: No new or acute intra-abdominal or pelvic findings. Madi Mccartney MD Upper Extremity Ultrasound 10/13/17 0000 Signed Impressions: Service Date/Time: Friday, October 13, 2017 11:25 - CONCLUSION: Normal examination. Christian Kaur MD Abdomen X-Ray 10/10/17 0000 Signed Impressions: Service Date/Time: Tuesday, October 10, 2017 16:46 - CONCLUSION: Negative for free air or obstruction. Rahul Yarbrough MD FACR Chest Tube Insertion 10/06/17 0000 Signed Impressions: Service Date/Time: Friday, October 06, 2017 15:37 - CONCLUSION: Uncomplicated chest tube placement as above. Emerson Hui MD Physical Exam GENERAL: Awake, and following commands, on nasal O2, NAD SKIN: No rashes. Cool and dry. Multiple tattoos. HEAD: Atraumatic. Normocephalic. No temporal or scalp tenderness. EYES: Pupils equal round and reactive. Extraocular motions intact. No petechia, no hemorrhage ENT: Moist oral mucosa, no nasal drainage NECK: Trachea midline. Supple, nontender, no meningeal signs. CARDIOVASCULAR: Has systolic murmur RESPIRATORY: Decreased air entry bilaterally bases. Rt CT in place GASTROINTESTINAL: Abdomen soft, not tender, (+) BS MUSCULOSKELETAL: Extremities without clubbing, cyanosis. Mild pedal edema. No embolic lesion seen. NEUROLOGICAL: Awake, follows commands Psych cooperative IV line sites with no e.o infection. 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 Pneumonia: septic emboli, aspiration pneumonia. Respiratory failure, self extubated 10/17 IVDA: heroin, cocaine and methamphetamine. Acute renal failure: Sepsis, meds,contrast. - on HD Abnormal LFTs: ? Rifampin induced vs volume overload related. Recs: Continue Ancef IV CT and US abdomen reviewed. Follow cultures D/W Lakia Colby MD Oct 26, 2017 11:37
[2017-10-26] MEDS: ACETAMINOPHEN/HYDROcodone 325 MG/5 MG TAB PO PRN (15:07)
--- NOTE | 2017-10-26 17:59 | HHI.CCPN ---
Subjective Remarks/Hospital Course 27-year-old male with remote history of IV drug abuse, states he last used heroin 2 months ago, presents for evaluation of 8 days of body aches, 7 days of diarrhea with development of subjective fever yesterday. Patient denies any nausea or vomiting. He denies any chest pain. States that he is short of breath and feels anxious. This has developed within the last 24 hours. Patient does have a cough with clear sputum. Denies any prior history of endocarditis. Denies any abdominal pain. Does report some left back pain, worse while lying flat. He is well reports generalized weakness. 10/04/17: He is critically ill, remains febrile up to 103, tachycardic diaphoretic. large tricuspid valve vegetation on bedside echo, formal echo pending. Infectious disease consulted, CT surgery consult ordered. D/W Dr. Macias and Dr. Charles. CARMEN/fish trapper consult ordered. Hb 6.6 getting 2U PRBC 10/05: Remains critically ill intubated sedated. TE on yesterday TEF 40-45%. Large mobile vegetation noted on the tricuspid valve, may be 2 separate vegetations, measures overall 4cm x 1.7cm. Probable mobile density noted on the pulmonic valve. CT of the chest shows extensive septic emboli and consolidation , with loculated appearing effusion on the left base. Dr. Charles CT surgery recommends 4-6 weeks of IV antibiotics followed by repeat echo, considering surgery at that time if no improvement 10/06: Worsening CXR, with bibasilar worsening infiltrates and effusion. IR to place CT-guided left chest tube today for loculated effusion. Fluid overloaded approximately 8 kg. IV Lasix 40 mg x1. MSSA bacteremia persists 10/07: Remains intubated sedated remains critical severe volume overload with worsening renal function creatinine 3, weight up by at least [address] him on Bumex infusion and consult nephrology. Patient remains slightly oliguric 800 mL urine output in 24 hours. Chest x-ray showed bilateral infiltrates and worsening right effusion 10/08: Remains intubated heavily sedated oliguric. Continues to have positive fluid balance creatinine increased to 4.3. Hemoglobin 6.9. Currently on Bumex infusion with not adequate response. Persistently bacteremic. Bilateral infiltrates on chest x-ray with moderate right effusion 10/09: Intubated sedated remains severely fluid overloaded started on hemodialysis yesterday with 4 L removed still positive fluid balance. Hemoglobin 6.81 unit PRBC transfusion ordered along with calcium replacement. GI consulted for further workup. Large pleural effusion on right side plan for pigtail chest tube placement 10/10: Intubated sedated. Had HD with 25L removed yesterday. right chest tube placed yesterday 1.2 L of old blood tinged effusion drained-Gram stain negative. Chest x-ray shows improvement in effusion. Remains severely fluid overloaded still remains 16-17 kg up. Discussed with nephrology plan for HD with maximum fluid removal as tolerated 10/11: The patient continues on sedation intubated, opens eyes spontaneously, not follow commands. The patient underwent hemodialysis yesterday approximately 3 L off. Bilateral chest tubes no leak noted. Minimal output left chest tube. 10/12: Daily sedation vacation initiated, opens eyes spontaneously, and following commands as squeezing hands bilaterally. Movement of lower extremities. She noted to have very thick secretions. Hemodialysis performed yesterday, approximately 3 L off. Patient noted to have thick copious secretions from airway, with worsening airspace disease on the right. Gen. surgery consulted for tracheostomy. 10/13: Patient remains critically ill opens eyes and follows commands on sedation hold. Did not tolerate CPAP trial today. Cancelled gen surgery consult for trach due to possible need for valve surgery. Continues to spike fever. Plan for changing line today 10/14: Plan for removal of vas catheter today, and to be replaced on . CT of the abdomen and pelvis pending. The patient was noted to have a drop in hemoglobin to 6.9 patient being transfused 1 unit of packed red blood cells. Left chest tube TPA instilled per IR serosanguineous drainage from left chest tube. Right chest tube placed to waterseal. 10/15: Afebrile. Patient continues on CPAP this am > 3 hours currently. Patient following commands. Discussed with Gen. Surgery, Ms. Zelaya to continue CPAP trials today. Per General Surgery conversation with CTS, Dr. Charles, if patient continues to fail CPAP trials, ok'd with CTS for tracheostomy. Pt received 1 u PRBC yesterday, Hgb, stable. 10/16: Tolerated CPAP 12/5 for several hours but still remains very fluid overloaded. Vas-Cath removed 10/14/17, will place new VasCath today for HD. Attempt maximum fluid removal. Blood cultures from 10/13 remains negative, but still spiking fever T-max 102.1 10/17: Patient tolerating CPAP better today at 10/5. Fever trending down. Hemoglobin dropped to 6.7. Plan was to do hemodialysis with maximum fluid removal and then extubated but patient ended up self extubating. I have discussed with Dr. Tapia who will dialyze today 10/18: Extubated yesterday tolerating well respiratory acosta. Getting hemodialysis today with target removal of 3.5 L. Urine output is 400 mL in 24 hours. Bilateral chest tube output minimal. Hemoglobin remaining stable. Bedside echo shows large essentially unchanged TV vegetation 10/19: Patient is breathing comfortably had hemodialysis yesterday with 3 L removed. Urine output 400 mL approximately in 24 hours. Bedside echo shows unchanged size and the tricuspid regurgitation. I discussed with Dr. Charles today-he is declining surgery due to active drug use, however will contact in no acute floor against tomorrow to see whether they will perform tricuspid valve surgery. If declined at [facility] I will attempt [facility] for transfer 10/20: Breathing comfortably, but tearful emotional, hemodialysis plan for today. Creatinine slightly worsened urine output approximately 400 mL in 24 hours. Left chest tube to be removed by IR today. Waiting to hear back from [facility] regarding transfer for valve surgery. Declined by our thoracic surgeon due to active drug use and multiple complications 10/21: T-max 100.4. Currently 100. Resting in bed on nasal cannula in no acute distress. Receiving hemodialysis today 10/22: Being baptized today. Requesting transfer to [facility]. Discussed with cardiothoracic surgeon who stated current plan by Dr. Charles regarding moderate tricuspid regurgitation is adequate. We will recheck echocardiogram in 1-2 weeks or if clinically indicated. Currently complaining of some neck pain while sitting in chair 10/23: Being transfused 1 unit PRBCs today. Currently receiving hemodialysis. Denies back pain.. Request to go to chair. Tolerating diet. Remains on nasal cannula. 10/24: Resting in bed in no acute distress. Afebrile. Requesting to go to chair. Tolerating diet. Remains on nasal cannula. AST elevated. Discontinue rifampin and possible hepatotoxic drugs. Liver ultrasound pending. Will CT abdomen and pelvis rule out hepatic, pancreatic, renal infarct or musculoskeletal source. CPK low normal. Amylase and lipase pending. Subjective 10/25: Out of bed to chair today. Remains on nasal cannula.. No new issues past [address] abdomen/pelvis revealed hepatosplenomegaly/ ascites. No signs of nephrotic infarction, acalculous cholecystitis. CPK and troponin negative. 10/26: Patient continues on 3 L nasal cannula. Patient has poor appetite family bringing food from home encourage intake. Objective Vital Signs Date Time Temp Pulse Resp B/P (MAP) Pulse Ox O2 Delivery O2 Flow Rate FiO2 10/26/17 16:00 112 29 102/55 (71) 96 10/26/17 12:00 97.9 10/26/17 08:05 Nasal Cannula 4.00 Intake and Output 10/26/17 10/26/17 10/27/17 08:00 16:00 00:00 Intake Total 1010 ml Output Total 0 ml Balance 1010 ml Result Diagram: 10/26/17 0621 10/26/17 0621 Imaging Last Impressions Chest X-Ray 10/26/17 0600 Signed Impressions: Service Date/Time: Thursday, October 26, 2017 03:32 - CONCLUSION: Stable bilateral patchy infiltrates. Mat Alejandra MD Liver Ultrasound 10/24/17 0000 Signed Impressions: Service Date/Time: Tuesday, October 24, 2017 16:43 - CONCLUSION: Hepatosplenomegaly with ascites. Echogenic kidney Madi Mccartney MD Abdomen/Pelvis CT 10/24/17 0000 Signed Impressions: Service Date/Time: Tuesday, October 24, 2017 21:37 - CONCLUSION: 1. Hepatosplenomegaly. 2. Moderate amount of ascites. 3. Diffuse anasarca. 4. Bibasilar pleural effusions and scattered infiltrates. Khoi Padilla MD Tunnelled Chest Tube Removal 10/20/17 0000 Signed Impressions: Service Date/Time: Friday, October 20, 2017 00:00 - CONCLUSION: Uncomplicated chest tube removal. Madi Mccartney MD Chest CT 10/14/17 0000 Signed Impressions: Service Date/Time: Saturday, October 14, 2017 00:26 - CONCLUSION: 1. Bilateral scattered pulmonary nodules are again noted. Several of the right nodules are now cavitary and likely represent septic emboli given the history of IV drug abuse. 2. Interval placement of bilateral chest tubes with small pleural effusions noted. 3. Dense consolidation remains in the posterior lower lobes. Jorge Jang MD Upper Extremity Ultrasound 10/13/17 0000 Signed Impressions: Service Date/Time: Friday, October 13, 2017 11:25 - CONCLUSION: Normal examination. Christian Kaur MD Abdomen X-Ray 10/10/17 0000 Signed Impressions: Service Date/Time: Tuesday, October 10, 2017 16:46 - CONCLUSION: Negative for free air or obstruction. Rahul Yarbrough MD FACR Chest Tube Insertion 10/06/17 0000 Signed Impressions: Service Date/Time: Friday, October 06, 2017 15:37 - CONCLUSION: Uncomplicated chest tube placement as above. Emerson Hui MD Last Impressions Chest X-Ray 10/25/17 0600 Signed Impressions: Service Date/Time: Wednesday, October 25, 2017 04:18 - CONCLUSION: Bilateral infiltrates, stable on the right, and slightly improved on the left. Mat Alejandra MD Liver Ultrasound 10/24/17 0000 Signed Impressions: Service Date/Time: Tuesday, October 24, 2017 16:43 - CONCLUSION: Hepatosplenomegaly with ascites. Echogenic kidney Madi Mccartney MD Abdomen/Pelvis CT 10/24/17 0000 Signed Impressions: Service Date/Time: Tuesday, October 24, 2017 21:37 - CONCLUSION: 1. Hepatosplenomegaly. 2. Moderate amount of ascites. 3. Diffuse anasarca. 4. Bibasilar pleural effusions and scattered infiltrates. Khoi Padilla MD Tunnelled Chest Tube Removal 10/20/17 0000 Signed Impressions: Service Date/Time: Friday, October 20, 2017 00:00 - CONCLUSION: Uncomplicated chest tube removal. Madi Mccartney MD Chest CT 10/14/17 0000 Signed Impressions: Service Date/Time: Saturday, October 14, 2017 00:26 - CONCLUSION: 1. Bilateral scattered pulmonary nodules are again noted. Several of the right nodules are now cavitary and likely represent septic emboli given the history of IV drug abuse. 2. Interval placement of bilateral chest tubes with small pleural effusions noted. 3. Dense consolidation remains in the posterior lower lobes. Jorge Jang MD Upper Extremity Ultrasound 10/13/17 0000 Signed Impressions: Service Date/Time: Friday, October 13, 2017 11:25 - CONCLUSION: Normal examination. Christian Kaur MD Abdomen X-Ray 10/10/17 0000 Signed Impressions: Service Date/Time: Tuesday, October 10, 2017 16:46 - CONCLUSION: Negative for free air or obstruction. Rahul Yarbrough MD FACR Chest Tube Insertion 10/06/17 0000 Signed Impressions: Service Date/Time: Friday, October 06, 2017 15:37 - CONCLUSION: Uncomplicated chest tube placement as above. Emerson Hui MD Objective Remarks GENERAL: 27-year-old male resting in bed in no acute distress on nasal cannula SKIN: Warm and dry. Extensive tattoos limits skin exam. Anasarca. Positive carrera HEAD: Normocephalic. EYES: No scleral icterus. No injection or drainage. Slight periorbital edema noted. ENT: Oral cavity moist NECK: Supple, trachea midline. No JVD or lymphadenopathy. RIJ Vascath in place. Clean dry and intact CARDIOVASCULAR: S1-S2 no S4.. 2 out of 6 systolic murmur at the left sternal border. RESPIRATORY: Air entry is equal bilaterally, coarse rhonchi and crackles. Left pig tail chest tubes in place. Minimal output GASTROINTESTINAL: Abdomen soft, non-tender, nondistended. MUSCULOSKELETAL: Positive anasarca NEURO EXAM: Alert awake oriented, Pupils are round, reactive to light. Moving all extremities follows commands no focal deficit A/P Assessment and Plan Neuro/Psych IVDU Morphine sulfate 2 mg IV every 2 hours as needed pain 6 to 10 Continue Fentanyl patch 75 mcg every 72 hours Resp: Acute hypoxemic respiratory failure, improved Extensive septic emboli, consolidation of the lung Loculated left effusion, large right effusion - Extubated 10/17 (Self extubated while on CPAP for planned extubation) - IR placed left chest tube 10/06 with more than 1 L exudative fluid out. Removed 10/20 - Dr. Barraza placed right-sided pigtail chest tube at the bedside 10/09, brown tinged fluid approximately 1.1 L initial output, now output is minimum - Removed right chest tube 10/18/17. - Broad-spectrum antibiotics per ID, see below - Nasal cannula to maintain saturations greater than equal to 92% - Incentive spirometry while awake - Albuterol/ipratropium aerosols every 6 hours while awake with albuterol aerosols every 2 hours. Dyspnea - EzPAP every 6 hours since 10/17 - Fluticasone 44 mcg inhalation twice daily CVS: Large tricuspid valve vegetation Small pericardial effusion Acute systolic heart failure Mild pulmonary hypertension - Bedside echo shows large tricuspid vegetation. repeat bedside echo today 10/18 similar size - Cardiology and CT surgery has followed. D/W Dr. Charles declined surgery due to active IV drug use, multiple medical complications. [facility] with [facility] who agreed with plan of our cardiothoracic surgeon. No transfer at this time. May consider [facility] as third option if tricuspid valve on future echocardiograms reveal worsening tricuspid regurgitation - CARMEN 10/04: EF 45-50 %. Large mobile vegetation on tricuspid valve, 2 separate vegetations 2.1 x 3.2 cm and 2.6 x 0.8 cm. PIP 40.7 mmHg -Echo 10/20 -EF 35-40%. Tricuspid valve vegetation Currently on metoprolol tartrate 25 mg p.o. every 8 hours GI: Hepatosplenomegaly Diarrhea Hypoalbuminemia Hepatitis C genotype 1A Elevated ceruloplasmin MARTÍN + diffuse Elevated total bilirubin Elevated AST -Pantoprazole 40 mg p.o. twice daily due to persistent anemia. GI has followed currently signed off - Hepatitis C reactive. Genotype 1a Viral load 10,700 -Renal diet -Docusate sodium/senna 1 tablet twice daily for bowel regimen Hepatic ultrasound revealed hepatosplenomegaly.. CT abdomen/pelvis 10/24 revealed no obvious hepatic, pancreatic, nephrotic versus musculoskeletal source. Hepatosplenomegaly. Moderate ascites. Anasarca. CPK and troponin normal. Discontinue nephrotoxic drugs including rifampin and acetaminophen Repeat liver function tests in a.m. 10/26 Renal/: Acute kidney failure with fluid overload - Started hemodialysis 10/08,above. - Continue intermittent HD for fluid removal. -2 L today 10/25 - Strict I's and O's, Monitor trend of creatinine - Replace electrolytes as clinically indicated - 10/14-removed vas catheter. Replaced on 10/16 ID: Tricuspid and pulmonic valve endocarditis Septic emboli to the lung Severe sepsis MSSA bacteremia - Discussed with Dr. Charles CT surgery 10/05/17, 10/19, deemed not a surgical candidate, await input from [facility] - Cefazolin per ID Dr. Macias. 10/22 discontinued vancomycin 125 mg 4 times daily. discontinue rifampin due to elevated AST - Persistent MSSA bacteremia 10/04, 10/05 10/07 blood cultures, cultures reviewed. Blood cultures from 10/13 negative, fever trending down now Endo: Sliding scale insulin if indicated Heme: Anemia requiring transfusion Leukocytosis Normocytic anemia - Transfuse PRBC to keep Hb>7.0 - LDH mildly elevated and haptoglobin normal, Transfusion 1u PRBC on 10/14, 10/17 and 10/23 and 10/25 - Monitor CBC, Coags - Thrombocytopenia most likely from sepsis and DIC has resolved -Epogen 10,000 units as needed with hemodialysis MSK: PT evaluate and treat FEN: Hyponatremia Replace electrolytes as clinically indicated Hyponatremia workup ordered. See orders DVT GI prophylaxis - TEDs SCDs - Started Heparin 5000 U sq q12-DCD 10/17 due to persistent anemia requiring transfusion Restart 10/21 -Pantoprazole 40 q12 Level 2 follow-up Physician Prema Dalton MD Oct 26, 2017 17:59
[2017-10-26] MEDS: TEMAZEPAM 15 MG CAP PO PRN (21:40)
[2017-10-27] VITALS (14 sets, daily range): BP systolic 97–120; BP diastolic 51–67; PULSE 97–115; RESP 20–27; TEMP 97.7–98.8; O2SAT 92–100
[2017-10-27] MEDS: RESP: ALBUTEROL 2.5 MG/IPRATROPIUM 0.5 MG NEB (SCH) NEB ×4 (04:17→21:49)
[2017-10-27] MEDS: METOPROLOL TARTRATE 25 MG TAB PO SCH ×3 (05:18→22:28)
[2017-10-27] MEDS: MORPHINE SULFATE 4 MG/ML INJ IV PUSH PRN ×7 (05:18→22:29)
--- NOTE | 2017-10-27 07:21 | HHI.PR ---
Subjective Remarks In Bed appears chronically ill. Feels very tired. Answering some questions. Denies chest pain or shortness of breath at this time. Objective Vitals Vital Signs Date Time Temp Pulse Resp B/P (MAP) Pulse Ox O2 Delivery O2 Flow Rate FiO2 10/27/17 06:00 100 10/27/17 04:00 98.8 103 21 115/56 (75) 100 10/27/17 04:00 102 10/27/17 02:00 115 10/27/17 00:00 109 10/27/17 00:00 98.5 109 27 104/51 (68) 92 10/26/17 22:00 109 10/26/17 21:02 100 Nasal Cannula 4.00 10/26/17 20:00 112 10/26/17 20:00 98.8 112 28 100/57 (71) 98 10/26/17 19:00 109 10/26/17 18:00 107 10/26/17 16:00 112 29 102/55 (71) 96 10/26/17 16:00 112 10/26/17 15:00 109 10/26/17 15:00 109 28 95/55 (68) 10/26/17 14:00 104 22 107/54 (71) 10/26/17 14:00 104 10/26/17 13:00 105 25 105/59 (74) 99 10/26/17 13:00 105 10/26/17 12:00 106 10/26/17 12:00 97.9 106 30 97/57 (70) 10/26/17 11:00 108 26 97/53 (68) 95 10/26/17 11:00 108 10/26/17 10:00 105 23 94/50 (65) 10/26/17 10:00 105 10/26/17 09:00 108 28 97/52 (67) 97 10/26/17 09:00 108 10/26/17 08:05 99 Nasal Cannula 4.00 10/26/17 08:00 110 10/26/17 08:00 98.1 110 17 100/56 (71) 97 I/O 10/26/17 10/26/17 10/26/17 10/27/17 10/27/17 10/27/17 07:00 15:00 23:00 07:00 15:00 23:00 Intake Total 1010 ml 100 ml 580 ml Output Total 0 ml 1200 ml 0 ml Balance 1010 ml -1100 ml 580 ml Intake Oral 480 ml 0 ml 480 ml IV Total 100 ml 100 ml 100 ml Packed Cells 400 ml Blood Product IV Normal Saline Flush 30 ml Output Urine Total 0 ml 1200 ml 0 ml # Bowel Movements 1 1 0 Result Diagram: 10/26/17 0621 10/26/17 06 Imaging Last Impressions Chest X-Ray 10/26/17 0600 Signed Impressions: Service Date/Time: Thursday, October 26, 2017 03:32 - CONCLUSION: Stable bilateral patchy infiltrates. Mat Alejandra MD Liver Ultrasound 10/24/17 0000 Signed Impressions: Service Date/Time: Tuesday, October 24, 2017 16:43 - CONCLUSION: Hepatosplenomegaly with ascites. Echogenic kidney Madi Mccartney MD Abdomen/Pelvis CT 10/24/17 0000 Signed Impressions: Service Date/Time: Tuesday, October 24, 2017 21:37 - CONCLUSION: 1. Hepatosplenomegaly. 2. Moderate amount of ascites. 3. Diffuse anasarca. 4. Bibasilar pleural effusions and scattered infiltrates. Khoi Padilla MD Tunnelled Chest Tube Removal 10/20/17 0000 Signed Impressions: Service Date/Time: Friday, October 20, 2017 00:00 - CONCLUSION: Uncomplicated chest tube removal. Madi Mccartney MD Chest CT 10/14/17 0000 Signed Impressions: Service Date/Time: Saturday, October 14, 2017 00:26 - CONCLUSION: 1. Bilateral scattered pulmonary nodules are again noted. Several of the right nodules are now cavitary and likely represent septic emboli given the history of IV drug abuse. 2. Interval placement of bilateral chest tubes with small pleural effusions noted. 3. Dense consolidation remains in the posterior lower lobes. Jorge Jang MD Upper Extremity Ultrasound 10/13/17 0000 Signed Impressions: Service Date/Time: Friday, October 13, 2017 11:25 - CONCLUSION: Normal examination. Christian Kaur MD Abdomen X-Ray 10/10/17 0000 Signed Impressions: Service Date/Time: Tuesday, October 10, 2017 16:46 - CONCLUSION: Negative for free air or obstruction. Rahul Yarbrough MD FACR Chest Tube Insertion 2/12/18 0000 Signed Impressions: Service Date/Time: Friday, October 06, 2017 15:37 - CONCLUSION: Uncomplicated chest tube placement as above. Emerson Hui MD Objective Remarks GENERAL: 27-year-old male resting in bed in no acute distress on nasal cannula SKIN: Warm and dry. Extensive tattoos limits skin exam. Anasarca. Positive carrera HEAD: Normocephalic. EYES: No scleral icterus. No injection or drainage. Slight periorbital edema noted. NECK: Supple, trachea midline. No JVD or lymphadenopathy. RIJ Vascath in place. Clean dry and intact CARDIOVASCULAR: S1-S2 no S4.. 2 out of 6 systolic murmur at the left sternal border. RESPIRATORY: Air entry is equal bilaterally, coarse rhonchi and crackles. Left pig tail chest tubes in place. Minimal output GASTROINTESTINAL: Abdomen soft, non-tender, nondistended. MUSCULOSKELETAL: Positive anasarca NEURO EXAM: Alert awake oriented, Pupils are round, reactive to light. Moving all extremities follows commands no focal deficit A/P Assessment and Plan Neuro/Psych IVDU Morphine sulfate 2 mg IV every 2 hours as needed pain 6 to 10, taper down Continue Fentanyl patch 75 mcg every 72 hours. Taper as tolerated Consult palliative care for pain management Resp: Acute hypoxemic respiratory failure, improved Extensive septic emboli, consolidation of the lung Loculated left effusion, large right effusion - Extubated 10/17 (Self extubated while on CPAP for planned extubation) - IR placed left chest tube 10/06 with more than 1 L exudative fluid out. Removed 10/20 - Dr. Barraza placed right-sided pigtail chest tube at the bedside 10/09, brown tinged fluid approximately 1.1 L initial output, now output is minimum - Removed right chest tube 10/18/17. - Broad-spectrum antibiotics per ID, see below - Nasal cannula to maintain saturations greater than equal to 92% - Incentive spirometry while awake - Albuterol/ipratropium aerosols every 6 hours while awake with albuterol aerosols every 2 hours. Dyspnea - EzPAP every 6 hours since 10/17 - Fluticasone 44 mcg inhalation twice daily CVS: Large tricuspid valve vegetation Small pericardial effusion Acute systolic heart failure Mild pulmonary hypertension - Bedside echo shows large tricuspid vegetation. repeat bedside echo today 10/18 similar size - Cardiology and CT surgery has followed. D/W Dr. Charles declined surgery due to active IV drug use, multiple medical complications. Discussed with [facility] who agreed with plan of our cardiothoracic surgeon. No transfer at this time. May consider OR as third option if tricuspid valve on future echocardiograms reveal worsening tricuspid regurgitation - CARMEN 10/04: EF 45-50 %. Large mobile vegetation on tricuspid valve, 2 separate vegetations 2.1 x 3.2 cm and 2.6 x 0.8 cm. PIP 40.7 mmHg -Echo 10/20 -EF 35-40%. Tricuspid valve vegetation Currently on metoprolol tartrate 25 mg p.o. every 8 hours GI: Hepatosplenomegaly Diarrhea Hypoalbuminemia Hepatitis C genotype 1A Elevated ceruloplasmin MARTÍN + diffuse Elevated total bilirubin Elevated AST -Pantoprazole 40 mg p.o. twice daily due to persistent anemia. GI has followed currently signed off - Hepatitis C reactive. Genotype 1a Viral load 10,700 -Renal diet -Docusate sodium/senna 1 tablet twice daily for bowel regimen Hepatic ultrasound revealed hepatosplenomegaly.. CT abdomen/pelvis 10/24 revealed no obvious hepatic, pancreatic, nephrotic versus musculoskeletal source. Hepatosplenomegaly. Moderate ascites. Anasarca. CPK and troponin normal. Discontinue nephrotoxic drugs including rifampin and acetaminophen Repeat liver function tests in a.m. 10/26 Renal/: Acute kidney failure with fluid overload - Started hemodialysis 10/08,above. - Continue intermittent HD for fluid removal. -2 L today 10/25 - Strict I's and O's, Monitor trend of creatinine - Replace electrolytes as clinically indicated - 10/14-removed vas catheter. Replaced on 10/16 ID: Tricuspid and pulmonic valve endocarditis Septic emboli to the lung Severe sepsis MSSA bacteremia - Discussed with Dr. Charles CT surgery 10/05/17, 10/19, deemed not a surgical candidate, await input from tertiary care center - Cefazolin per ID Dr. Macias. 10/22 discontinued vancomycin 125 mg 4 times daily. 3/to discontinue rifampin due to elevated AST - Persistent MSSA bacteremia 10/04, 10/05 10/07 blood cultures, cultures reviewed. Blood cultures from 10/13 negative, fever trending down now Endo: Sliding scale insulin if indicated Heme: Anemia requiring transfusion Leukocytosis Normocytic anemia - Transfuse PRBC to keep Hb>7.0 - LDH mildly elevated and haptoglobin normal, Transfusion 1u PRBC on 10/14, 10/17 and 10/23 and 10/25 - Monitor CBC, Coags - Thrombocytopenia most likely from sepsis and DIC has resolved -Epogen 10,000 units as needed with hemodialysis MSK: PT evaluate and treat FEN: Hyponatremia Replace electrolytes as clinically indicated Hyponatremia workup ordered. See orders DVT GI prophylaxis - TEDs SCDs - Started Heparin 5000 U sq q12-DCD 10/17 due to persistent anemia requiring transfusion Restart 10/21 -Pantoprazole 40 q12 Physical deconditioning Consult PT/OT Discussed with the patient, ICU nurse Transfer to [facility] floor Monika Martinez MD Oct 27, 2017 07:21
[2017-10-27] MEDS: CHLORHEXIDINE 0.12% (ORAL KIT) 15 ML CUP MT SCH ×2 (08:00→20:28)
[2017-10-27] MEDS: SODIUM CHLORIDE 1 GRAM TAB PO SCH (08:49)
[2017-10-27] MEDS: LACTOBACILLUS ACIDOPHILUS TAB PO SCH ×3 (08:49→16:34)
[2017-10-27] MEDS: PANTOPRAZOLE SOD 40 MG DELAYED RELEASE TAB PO SCH ×2 (08:49→20:29)
[2017-10-27] MEDS: CALCIUM ACETATE 667 MG CAP PO SCH ×3 (08:50→16:34)
[2017-10-27] MEDS: HEPARIN SODIUM - SQ 10,000 UNITS/ML VIAL SQ SCH ×2 (08:51→20:30)
[2017-10-27] MEDS: DOCUSATE SODIUM 50 MG/SENNA 8.6 MG TAB PO SCH ×2 (08:51→20:29)
[2017-10-27] MEDS: FLUTICASONE PROPIONATE 44 MCG/ACT 10.6 GM INHALER INH SCH ×2 (08:51→20:29)
[2017-10-27] MEDS: SODIUM CHLORIDE 0.9% FLUSH 10 ML FLUSH IV FLUSH SCH ×2 (08:54→20:29)
[2017-10-27] MEDS: COLLAGENASE OINT 30 GM TUBE TOPICAL SCH (08:55)
--- NOTE | 2017-10-27 10:01 | HHI.NPPN ---
Subjective Complaints: Shortness of Breath Renal Failure: Acute History of Present Illness Patient is 27-year-old male who reported to ER with body aches, 7 days of diarrhea with development fever. Past medical history of IV drug use. Patient is sedated and ventilated FiO2 at 40 %. Nephrology is consulted for ZEUS and fluid over load status. Patients creatinine is 3.02 and GFR 25ml/min. Patient is UOP at 800cc for last 24 hours. Weight has increased by over 10 kg since admission. IVF's have been stopped and lasix has been given. Patient has endocarditis with large tricuspid valve vegetation, and pulmonic vegetation. Noted to have bacteremia with hypotension with SBP in the 90's. Additional Remarks Patient reports mild SOB. Edema is improving. O2 at 4 liters plans to transfer to medical floor. (Venus Barrett) Review of Systems Respiratory Lungs: SOB (Venus Barrett) Cardiovascular Cardiac Remarks denies CP (Venus Barrett) Psych Psych: Depression, Anxiety (Venus Barrett) Objective Data Data Vital Signs Date Time Temp Pulse Resp B/P (MAP) Pulse Ox O2 Delivery O2 Flow Rate FiO2 10/27/17 09:34 95 Nasal Cannula 4.00 10/27/17 06:00 100 10/27/17 04:00 98.8 103 21 115/56 (75) 100 10/27/17 04:00 102 10/27/17 02:00 115 10/27/17 00:00 109 10/27/17 00:00 98.5 109 27 104/51 (68) 92 10/26/17 22:00 109 10/26/17 21:02 100 Nasal Cannula 4.00 10/26/17 20:00 112 10/26/17 20:00 98.8 112 28 100/57 (71) 98 10/26/17 19:00 109 10/26/17 18:00 107 10/26/17 16:00 112 29 102/55 (71) 96 10/26/17 16:00 112 10/26/17 15:00 109 10/26/17 15:00 109 28 95/55 (68) 10/26/17 14:00 104 22 107/54 (71) 10/26/17 14:00 104 10/26/17 13:00 105 25 105/59 (74) 99 10/26/17 13:00 105 10/26/17 12:00 106 10/26/17 12:00 97.9 106 30 97/57 (70) 10/26/17 11:00 108 26 97/53 (68) 95 10/26/17 11:00 108 10/26/17 10:00 105 23 94/50 (65) 10/26/17 10:00 105 (Venus Barrett) -: 10/26/17 0621 10/26/17 0621 Tubes & Lines: Vas-Cath (Venus BarrettP) Physical Exam General Appearance: No Acute Distress, Comfortable, Anxious (Venus BarrettP) Eyes Eye Exam: Pupils Equal (Venus Barrett. PROSTHETICS ASSISTANT) Pulmonary Resp Exam: Decreased Bases, Diminished Breath Sounds, Poor Inspiratory Effort (Venus BarrettP) Cardiology CV Exam: Tachycardia (Venus BarrettP) Gastrointestinal/Abdomen GI Exam: Soft, Non-Tender, Bowel Sounds Present, Distended (Venus Barrett. PROSTHETICS ASSISTANT) Integumentary Skin Exam: Clear, Warm (Venus BarrettP) Extremeties Extremities Exam: Moderate Edema (Venus Barrett. PROSTHETICS ASSISTANT) Neurologic Neuro Exam: Alert, Awake (Venus BarrettP) Assessment/Plan Assessment Summary: ZEUS/Acute Renal Failure Electrolyte Assessment: Hyponatremia Problem List: (1) ZEUS (acute kidney injury) ICD Codes: N17.9 - Acute kidney failure, unspecified Plan: ZEUS most likely ATN from sepsis and low blood pressure. Other differential will be ATN, Acute interstitial nephritis, and Post infectious GN,unlikely. HD started on 10/08 Plan Continue dialysis TTS and monitor for signs of renal recovery. Continue to monitor urine output 1200 ml over past 24 hours. Avoid nephrotoxins (2) Sepsis ICD Codes: A41.9 - Sepsis, unspecified organism Status: Acute Plan: Antibiotics per ID (3) Endocarditis ICD Codes: I38 - Endocarditis, valve unspecified Status: Acute (Venus BarrettP) Problem List: (1) ZEUS (acute kidney injury) ICD Codes: N17.9 - Acute kidney failure, unspecified Plan: ZEUS most likely ATN from sepsis and low blood pressure. Other differential will be ATN, Acute interstitial nephritis, and Post infectious GN,unlikely. HD started on 10/08 Plan Continue dialysis TTS and monitor for signs of renal recovery. Continue to monitor urine output 1200 ml over past 24 hours. Avoid nephrotoxins. Patient seen and examined, agree with above. HD will be in AM. Watch for renal recovery. (2) Sepsis ICD Codes: A41.9 - Sepsis, unspecified organism Status: Acute Plan: Antibiotics per ID (3) Endocarditis ICD Codes: I38 - Endocarditis, valve unspecified Status: Acute (Darek Tapia MD) Problem Qualifiers (1) Sepsis: Qualified Codes: A41.9 - Sepsis, unspecified organism (2) Endocarditis: Venus Barrett Oct 27, 2017 10:01 Darek Tapia MD Oct 27, 2017 20:40
[2017-10-27] MEDS: REMOVE OLD PATCH T-DERMAL SCH (12:00)
[2017-10-27] MEDS: FERROUS SULFATE 325 MG (65 MG ELEMENTAL IRON) TAB PO SCH ×2 (13:37→16:34)
[2017-10-27] MEDS: fentaNYL 100 MCG/HR PATCH T-DERMAL SCH (14:40)
[2017-10-27] MEDS: TEMAZEPAM 15 MG CAP PO PRN (20:29)
[2017-10-28] VITALS (10 sets, daily range): BP systolic 107–119; BP diastolic 56–62; PULSE 91–114; RESP 16–20; TEMP 97.6–99.3; O2SAT 90–95
[2017-10-28] MEDS: MORPHINE SULFATE 4 MG/ML INJ IV PUSH PRN ×10 (00:37→23:17)
[2017-10-28] MEDS: CHLORHEXIDINE GLUCONATE 2 % 1 PACK (2 CLOTHS) TOP SCH (03:05)
[2017-10-28] MEDS: RESP: ALBUTEROL 2.5 MG/IPRATROPIUM 0.5 MG NEB (SCH) NEB ×4 (04:00→20:54)
[2017-10-28] MEDS: METOPROLOL TARTRATE 25 MG TAB PO SCH ×3 (05:00→21:48)
[2017-10-28 06:23] LABS: AUTOMATED NEUTROPHIL # 14.5 TH/MM3 (1.8-7.7); BASOPHIL # 0.1 TH/MM3 (0-0.2); BASOPHIL % 0.5 % (0.0-2.0); EOSINOPHIL # 0.3 TH/MM3 (0-0.4); EOSINOPHIL % 1.7 % (0.0-4.0); HEMATOCRIT 23.9 % (39.0-51.0); LYMPH % 4.3 % (9.0-44.0); LYMPHOCYTE # 0.7 TH/MM3 (1.0-4.8); MEAN CELL VOLUME 85.9 FL (80.0-100.0); MEAN CORPUSCULAR HEMOGLOBIN 28.7 PG (27.0-34.0); MEAN CORPUSCULAR HGB CONC 33.4 % (32.0-36.0); MEAN PLATELET VOLUME 8.8 FL (7.0-11.0); MONO % 7.9 % (0.0-8.0); MONOCYTE # 1.3 TH/MM3 (0-0.9); NEUT % 85.6 % (16.0-70.0); PLATELET COUNT 114 TH/MM3 (150-450); RED BLOOD COUNT 2.78 MIL/MM3 (4.50-5.90); RED CELL DISTRIBUTION WIDTH 19.5 % (11.6-17.2)
[2017-10-28 06:45] LABS: BICARBONATE 22.5 MEQ/L (21.0-32.0); CALCIUM 8.8 MG/DL (8.5-10.1); CREATININE 7.13 MG/DL (0.60-1.30)
--- NOTE | 2017-10-28 07:54 | HHI.PR ---
Subjective Remarks He was seen earlier today in dialysis. Patient is sleeping, says he does not have any pain at this time. No shortness of breath. Says he is eating better and he was up in the chair yesterday. Feels still weak. No nausea or vomiting no diarrhea or constipation. Objective Vitals Vital Signs Date Time Temp Pulse Resp B/P (MAP) Pulse Ox O2 Delivery O2 Flow Rate FiO2 10/28/17 04:00 Nasal Cannula 2.00 10/28/17 04:00 99.0 105 16 116/62 (80) 95 10/28/17 03:59 105 10/28/17 00:00 99.3 113 20 110/57 (74) 95 10/28/17 00:00 Nasal Cannula 3.00 10/27/17 23:54 106 10/27/17 21:51 94 Nasal Cannula 4.00 10/27/17 20:34 108 10/27/17 20:00 Nasal Cannula 3.00 10/27/17 18:35 98.5 98 21 120/56 (77) 100 10/27/17 16:39 20 10/27/17 16:00 97.8 104 22 114/58 (76) 99 10/27/17 16:00 104 10/27/17 15:40 18 10/27/17 14:00 101 10/27/17 12:00 97 10/27/17 12:00 97.7 97 26 102/56 (71) 98 10/27/17 10:00 97 10/27/17 09:34 95 Nasal Cannula 4.00 10/27/17 08:00 101 10/27/17 08:00 98.6 101 20 97/67 (77) 97 I/O 10/27/17 10/27/17 10/27/17 10/28/17 10/28/17 10/28/17 07:00 15:00 23:00 07:00 15:00 23:00 Intake Total 580 ml 100 ml Output Total 0 ml Balance 580 ml 100 ml Intake Oral 480 ml IV Total 100 ml 100 ml Output Urine Total 0 ml # Bowel Movements 0 Result Diagram: 10/28/17 0511 10/28/17 0511 Imaging Last Impressions Chest X-Ray 10/26/17 0600 Signed Impressions: Service Date/Time: Thursday, October 26, 2017 03:32 - CONCLUSION: Stable bilateral patchy infiltrates. Mat Alejandra MD Liver Ultrasound 10/24/17 0000 Signed Impressions: Service Date/Time: Tuesday, October 24, 2017 16:43 - CONCLUSION: Hepatosplenomegaly with ascites. Echogenic kidney Madi Mccartney MD Abdomen/Pelvis CT 10/24/17 0000 Signed Impressions: Service Date/Time: Tuesday, October 24, 2017 21:37 - CONCLUSION: 1. Hepatosplenomegaly. 2. Moderate amount of ascites. 3. Diffuse anasarca. 4. Bibasilar pleural effusions and scattered infiltrates. Khoi Padilla MD Tunnelled Chest Tube Removal 10/20/17 0000 Signed Impressions: Service Date/Time: Friday, October 20, 2017 00:00 - CONCLUSION: Uncomplicated chest tube removal. Madi Mccartney MD Chest CT 10/14/17 0000 Signed Impressions: Service Date/Time: Saturday, October 14, 2017 00:26 - CONCLUSION: 1. Bilateral scattered pulmonary nodules are again noted. Several of the right nodules are now cavitary and likely represent septic emboli given the history of IV drug abuse. 2. Interval placement of bilateral chest tubes with small pleural effusions noted. 3. Dense consolidation remains in the posterior lower lobes. Jorge Jang MD Upper Extremity Ultrasound 10/13/17 0000 Signed Impressions: Service Date/Time: Friday, October 13, 2017 11:25 - CONCLUSION: Normal examination. Christian Kaur MD Abdomen X-Ray 10/10/17 0000 Signed Impressions: Service Date/Time: Tuesday, October 10, 2017 16:46 - CONCLUSION: Negative for free air or obstruction. Rahul Yarbrough MD FACR Chest Tube Insertion 10/06/17 0000 Signed Impressions: Service Date/Time: Friday, October 06, 2017 15:37 - CONCLUSION: Uncomplicated chest tube placement as above. Emerson Hui MD Objective Remarks GENERAL: 27-year-old male resting in bed in no acute distress on nasal cannula SKIN: Warm and dry. Extensive tattoos limits skin exam. Anasarca. Positive carrera HEAD: Normocephalic. EYES: No scleral icterus. No injection or drainage. Slight periorbital edema noted. NECK: Supple, trachea midline. No JVD or lymphadenopathy. RIJ Vascath in place. Clean dry and intact CARDIOVASCULAR: S1-S2 no S4.. 2 out of 6 systolic murmur at the left sternal border. RESPIRATORY: Air entry is equal bilaterally, coarse rhonchi and crackles. Left pig tail chest tubes in place. Minimal output GASTROINTESTINAL: Abdomen soft, non-tender, nondistended. MUSCULOSKELETAL: Positive anasarca NEURO EXAM: Alert awake oriented, Pupils are round, reactive to light. Moving all extremities follows commands no focal deficit A/P Assessment and Plan Neuro/Psych IVDU Morphine sulfate 2 mg IV every 2 hours as needed pain 6 to 10, taper down. Continue Fentanyl patch 75 mcg every 72 hours. Taper as tolerated. Consult palliative care for pain management Resp: Acute hypoxemic respiratory failure, improved Extensive septic emboli, consolidation of the lung Loculated left effusion, large right effusion - Extubated 10/17 (Self extubated while on CPAP for planned extubation) - IR placed left chest tube 10/06 with more than 1 L exudative fluid out. Removed 10/20 - Dr. Barraza placed right-sided pigtail chest tube at the bedside 10/09, brown tinged fluid approximately 1.1 L initial output, now output is minimum - Removed right chest tube 10/18/17. - Broad-spectrum antibiotics per ID, see below - Nasal cannula to maintain saturations greater than equal to 92% - Incentive spirometry while awake - Albuterol/ipratropium aerosols every 6 hours while awake with albuterol aerosols every 2 hours. Dyspnea - EzPAP every 6 hours since 10/17 - Fluticasone 44 mcg inhalation twice daily CVS: Large tricuspid valve vegetation Small pericardial effusion Acute systolic heart failure Mild pulmonary hypertension - Bedside echo shows large tricuspid vegetation. repeat bedside echo today 10/18 similar size - Cardiology and CT surgery has followed. D/W Dr. Charles declined surgery due to active IV drug use, multiple medical complications. Discussed with [facility] who agreed with plan of our cardiothoracic surgeon. No transfer at this time. May consider OR as third option if tricuspid valve on future echocardiograms reveal worsening tricuspid regurgitation - CARMEN 10/04: EF 45-50 %. Large mobile vegetation on tricuspid valve, 2 separate vegetations 2.1 x 3.2 cm and 2.6 x 0.8 cm. PIP 40.7 mmHg -Echo 10/20 -EF 35-40%. Tricuspid valve vegetation Currently on metoprolol tartrate 25 mg p.o. every 8 hours GI: Hepatosplenomegaly Diarrhea Hypoalbuminemia Hepatitis C genotype 1A Elevated ceruloplasmin MARTÍN + diffuse Elevated total bilirubin Elevated AST -Pantoprazole 40 mg p.o. twice daily due to persistent anemia. GI has followed currently signed off - Hepatitis C reactive. Genotype 1a Viral load 10,700 -Renal diet -Docusate sodium/senna 1 tablet twice daily for bowel regimen Hepatic ultrasound revealed hepatosplenomegaly.. CT abdomen/pelvis 10/24 revealed no obvious hepatic, pancreatic, nephrotic versus musculoskeletal source. Hepatosplenomegaly. Moderate ascites. Anasarca. CPK and troponin normal. Discontinue nephrotoxic drugs including rifampin and acetaminophen Repeat liver function tests in a.m. 10/26 Renal/: Acute kidney failure with fluid overload - Started hemodialysis 10/08,above. - Continue intermittent HD for fluid removal. -2 L today 10/25 - Strict I's and O's, Monitor trend of creatinine - Replace electrolytes as clinically indicated - 10/14-removed vas catheter. Replaced on 10/16 ID: Tricuspid and pulmonic valve endocarditis Septic emboli to the lung Severe sepsis MSSA bacteremia - Discussed with Dr. Charles CT surgery 10/05/17, 10/19, deemed not a surgical candidate, await input from tertiary care center - Cefazolin per ID Dr. Macias. 10/22 discontinued vancomycin 125 mg 4 times daily. 3/to discontinue rifampin due to elevated AST - Persistent MSSA bacteremia 10/04, 10/05 10/07 blood cultures, cultures reviewed. Blood cultures from 10/13 negative, fever trending down now Endo: Sliding scale insulin if indicated Heme: Anemia requiring transfusion Leukocytosis Normocytic anemia - Transfuse PRBC to keep Hb>7.0 - LDH mildly elevated and haptoglobin normal, Transfusion 1u PRBC on 10/14, 10/17 and 10/23 and 10/25 - Monitor CBC, Coags - Thrombocytopenia most likely from sepsis and DIC has resolved -Epogen 10,000 units as needed with hemodialysis MSK: PT evaluate and treat FEN: Hyponatremia Replace electrolytes as clinically indicated Hyponatremia workup ordered. See orders DVT GI prophylaxis - TEDs SCDs - Started Heparin 5000 U sq q12-DCD 10/17 due to persistent anemia requiring transfusion Restart 10/21 -Pantoprazole 40 q12 Physical deconditioning Consult PT/OT Discussed with the patient, ICU nurse [facility] Monika Martinez MD Oct 28, 2017 07:54
[2017-10-28] MEDS: CHLORHEXIDINE 0.12% (ORAL KIT) 15 ML CUP MT SCH ×2 (08:00→20:00)
[2017-10-28] MEDS: SODIUM CHLORIDE 0.9% FLUSH 10 ML FLUSH IV FLUSH SCH ×2 (08:49→20:12)
[2017-10-28] MEDS: DOCUSATE SODIUM 50 MG/SENNA 8.6 MG TAB PO SCH ×2 (09:00→20:12)
[2017-10-28] MEDS: LACTOBACILLUS ACIDOPHILUS TAB PO SCH ×3 (09:00→17:40)
[2017-10-28] MEDS: CALCIUM ACETATE 667 MG CAP PO SCH ×3 (09:00→17:40)
[2017-10-28] MEDS: ALBUMIN 25% INJ 100 ML IV PRN ×2 (09:54→09:55)
[2017-10-28] MEDS: GENTAMICIN SULFATE 20 MG/2 ML VIAL OTHER PRN (09:57)
[2017-10-28] MEDS: EPOETIN ALFA 10,000 UNITS/ML VIAL IV PUSH PRN (09:57)
[2017-10-28] MEDS: HEPARIN SODIUM - IV 10,000 UNITS/10 ML VIAL PRN (09:58)
--- NOTE | 2017-10-28 10:03 | HHI.NPPN ---
Subjective Complaints: Shortness of Breath Renal Failure: Acute History of Present Illness Patient is 27-year-old male who reported to ER with body aches, 7 days of diarrhea with development fever. Past medical history of IV drug use. Patient is sedated and ventilated FiO2 at 40 %. Nephrology is consulted for ZEUS and fluid over load status. Patients creatinine is 3.02 and GFR 25ml/min. Patient is UOP at 800cc for last 24 hours. Weight has increased by over 10 kg since admission. IVF's have been stopped and lasix has been given. Patient has endocarditis with large tricuspid valve vegetation, and pulmonic vegetation. Noted to have bacteremia with hypotension with SBP in the 90's. Additional Remarks Patient seen during dialysis. Edema is improving. (Venus Barrett) Review of Systems Respiratory Lungs: SOB (Venus Barrett) Cardiovascular Cardiac Remarks denies CP (Venus Barrett) Psych Psych: Depression, Anxiety (Venus Barrett) Objective Data Data Vital Signs Date Time Temp Pulse Resp B/P (MAP) Pulse Ox O2 Delivery O2 Flow Rate FiO2 10/28/17 08:00 97.6 99 20 107/61 (76) 95 10/28/17 07:00 Nasal Cannula 4.00 10/28/17 04:00 Nasal Cannula 2.00 10/28/17 04:00 99.0 105 16 116/62 (80) 95 10/28/17 03:59 105 10/28/17 00:00 99.3 113 20 110/57 (74) 95 10/28/17 00:00 Nasal Cannula 3.00 10/27/17 23:54 106 10/27/17 21:51 94 Nasal Cannula 4.00 10/27/17 20:34 108 10/27/17 20:00 Nasal Cannula 3.00 10/27/17 18:35 98.5 98 21 120/56 (77) 100 10/27/17 16:39 20 10/27/17 16:00 97.8 104 22 114/58 (76) 99 10/27/17 16:00 104 10/27/17 15:40 18 10/27/17 14:00 101 10/27/17 12:00 97 10/27/17 12:00 97.7 97 26 102/56 (71) 98 (Corinne Barrettne MirnaNguyễn MCKEON) -: 10/28/17 0511 10/28/17 0511 Tubes & Lines: Vas-Cath (AnjumpaukaylynVenus) Physical Exam General Appearance: No Acute Distress, Comfortable, Anxious (Venus BarrettP) Eyes Eye Exam: Pupils Equal (Venus BarrettP) Pulmonary Resp Exam: Decreased Bases, Diminished Breath Sounds, Poor Inspiratory Effort (Venus Barrett DIRECTOR VALIDATION) Cardiology CV Exam: Tachycardia (AnjumVenus loredoP) Gastrointestinal/Abdomen GI Exam: Soft, Non-Tender, Bowel Sounds Present, Distended (Venus BarrettP) Integumentary Skin Exam: Clear, Warm (Venus BarrettP) Extremeties Extremities Exam: Moderate Edema (Venus BarrettP) Neurologic Neuro Exam: Alert, Awake (Venus BarrettP) Assessment/Plan Assessment Summary: ZEUS/Acute Renal Failure Electrolyte Assessment: Hyponatremia Problem List: (1) ZEUS (acute kidney injury) ICD Codes: N17.9 - Acute kidney failure, unspecified Plan: ZEUS most likely ATN from sepsis and low blood pressure. Other differential will be ATN, Acute interstitial nephritis, and Post infectious GN,unlikely. HD started on 10/08 Plan Continue dialysis TTS and monitor for signs of renal recovery. Continue to monitor urine output Avoid nephrotoxins. Seen during dialysis plan to removed 1.5. Creatinine up to 7.13 and potassium WNL (2) Sepsis ICD Codes: A41.9 - Sepsis, unspecified organism Status: Acute Plan: Antibiotics per ID (3) Endocarditis ICD Codes: I38 - Endocarditis, valve unspecified Status: Acute (AnjumpaukaylynVenus DIRECTOR VALIDATION) Problem List: (1) ZEUS (acute kidney injury) ICD Codes: N17.9 - Acute kidney failure, unspecified Plan: ZEUS most likely ATN from sepsis and low blood pressure. Other differential will be ATN, Acute interstitial nephritis, and Post infectious GN,unlikely. HD started on 10/08 Plan Continue dialysis TTS and monitor for signs of renal recovery. Continue to monitor urine output Avoid nephrotoxins. Seen during dialysis plan to removed 1.5. Creatinine up to 7.13 and potassium WNL. Patient seen and examined, agree with above. Creatinine is still elevated, watch for renal recovery. Antibiotics as per ID. (2) Sepsis ICD Codes: A41.9 - Sepsis, unspecified organism Status: Acute Plan: Antibiotics per ID (3) Endocarditis ICD Codes: I38 - Endocarditis, valve unspecified Status: Acute (Darek Tapia MD) Problem Qualifiers (1) Sepsis: Qualified Codes: A41.9 - Sepsis, unspecified organism (2) Endocarditis: Venus Barrett Oct 28, 2017 10:03 Darek Tapia MD Oct 28, 2017 21:22
[2017-10-28] MEDS: PANTOPRAZOLE SOD 40 MG DELAYED RELEASE TAB PO SCH ×2 (12:48→20:13)
[2017-10-28] MEDS: HEPARIN SODIUM - SQ 10,000 UNITS/ML VIAL SQ SCH ×2 (12:48→20:13)
[2017-10-28] MEDS: SODIUM CHLORIDE 1 GRAM TAB PO SCH (12:48)
[2017-10-28] MEDS: FERROUS SULFATE 325 MG (65 MG ELEMENTAL IRON) TAB PO SCH ×2 (12:48→17:40)
[2017-10-28] MEDS: FLUTICASONE PROPIONATE 44 MCG/ACT 10.6 GM INHALER INH SCH ×2 (12:55→20:11)
[2017-10-28] MEDS: COLLAGENASE OINT 30 GM TUBE TOPICAL SCH (14:00)
[2017-10-28] MEDS ORDERED: SODIUM CHLORIDE 1 GRAM TAB PO ONE (16:00)
--- NOTE | 2017-10-28 16:54 | HHI.HCPN ---
Palliative care consulted for pain management. Case discussed with Dr. Martinez and Dr. Collazo. Patient with significant history of IV drug abuse to include Heroin, currently with large tricuspid valve regurgitation and extensive septic emboli. Discussed with Dr. Martinez that palliative care is unable to provide recommendations on pain management for this patient given significant history of IV drug abuse, which is beyond palliative care scope of expertise. Palliative care offered assistance with clarification of goals of care and advance directives. Full palliative care consultation to follow. MIKE Wang [facility] [employer] . . Autumn Goins Oct 28, 2017 16:54
[2017-10-29] VITALS (15 sets, daily range): BP systolic 105–128; BP diastolic 56–67; PULSE 102–113; RESP 17–18; TEMP 97.4–99; O2SAT 92–96
[2017-10-29] MEDS: MORPHINE SULFATE 4 MG/ML INJ IV PUSH PRN ×3 (01:43→08:42)
[2017-10-29] MEDS: CHLORHEXIDINE GLUCONATE 2 % 1 PACK (2 CLOTHS) TOP SCH (03:48)
[2017-10-29] MEDS: RESP: ALBUTEROL 2.5 MG/IPRATROPIUM 0.5 MG NEB (SCH) NEB ×4 (03:56→20:23)
[2017-10-29] MEDS: METOPROLOL TARTRATE 25 MG TAB PO SCH ×3 (05:20→20:53)
[2017-10-29] MEDS: RESP: ALBUTEROL 2.5 MG/3 ML NEB (PRN) NEB (05:44)
[2017-10-29 06:38] LABS: HEMATOCRIT 23.3 % (39.0-51.0); HEMOGLOBIN 7.8 GM/DL (13.0-17.0); MEAN CELL VOLUME 85.9 FL (80.0-100.0); MEAN CORPUSCULAR HEMOGLOBIN 28.6 PG (27.0-34.0); MEAN CORPUSCULAR HGB CONC 33.3 % (32.0-36.0); MEAN PLATELET VOLUME 8.7 FL (7.0-11.0); PLATELET COUNT 125 TH/MM3 (150-450); RED BLOOD COUNT 2.71 MIL/MM3 (4.50-5.90); RED CELL DISTRIBUTION WIDTH 19.8 % (11.6-17.2)
[2017-10-29 07:07] LABS: BICARBONATE 24.3 MEQ/L (21.0-32.0); CALCIUM 8.5 MG/DL (8.5-10.1); CREATININE 5.86 MG/DL (0.60-1.30)
[2017-10-29 07:29] LABS: BANDS 1 % (0-6); LYMPHOCYTES 4 % (9-44); MONOCYTES 11 % (0-8); NEUTROPHIL # MANUAL DIFF 14.5 TH/MM3 (1.8-7.7); POLYS (SEG NEUTROPHILS) 84 % (16-70)
[2017-10-29] MEDS: CHLORHEXIDINE 0.12% (ORAL KIT) 15 ML CUP MT SCH ×2 (08:00→20:00)
[2017-10-29] MEDS: HEPARIN SODIUM - SQ 10,000 UNITS/ML VIAL SQ SCH ×2 (08:37→20:53)
[2017-10-29] MEDS: DOCUSATE SODIUM 50 MG/SENNA 8.6 MG TAB PO SCH ×2 (08:37→20:54)
[2017-10-29] MEDS: LACTOBACILLUS ACIDOPHILUS TAB PO SCH ×3 (08:37→17:29)
[2017-10-29] MEDS: CALCIUM ACETATE 667 MG CAP PO SCH ×3 (08:37→17:29)
[2017-10-29] MEDS: PANTOPRAZOLE SOD 40 MG DELAYED RELEASE TAB PO SCH ×2 (08:37→20:53)
[2017-10-29] MEDS: SODIUM CHLORIDE 1 GRAM TAB PO SCH (08:37)
[2017-10-29] MEDS: FLUTICASONE PROPIONATE 44 MCG/ACT 10.6 GM INHALER INH SCH (08:38)
[2017-10-29] MEDS: SODIUM CHLORIDE 0.9% FLUSH 10 ML FLUSH IV FLUSH SCH ×2 (08:38→20:54)
[2017-10-29] MEDS: COLLAGENASE OINT 30 GM TUBE TOPICAL SCH (08:38)
--- NOTE | 2017-10-29 10:55 | HHI.NPPN ---
Subjective Complaints: Shortness of Breath Renal Failure: Acute History of Present Illness Patient is 27-year-old male who reported to ER with body aches, 7 days of diarrhea with development fever. Past medical history of IV drug use. Patient is sedated and ventilated FiO2 at 40 %. Nephrology is consulted for ZEUS and fluid over load status. Patients creatinine is 3.02 and GFR 25ml/min. Patient is UOP at 800cc for last 24 hours. Weight has increased by over 10 kg since admission. IVF's have been stopped and lasix has been given. Patient has endocarditis with large tricuspid valve vegetation, and pulmonic vegetation. Noted to have bacteremia with hypotension with SBP in the 90's. Additional Remarks Patient resting comfortably. Mild SOB. Edema is improving. (Venus Barrett) Review of Systems Respiratory Lungs: SOB (Venus Barrett) Cardiovascular Cardiac Remarks denies CP (Vensu Barrett) Psych Psych: Depression, Anxiety (Venus Barrett) Objective Data Data Vital Signs Date Time Temp Pulse Resp B/P (MAP) Pulse Ox O2 Delivery O2 Flow Rate FiO2 10/29/17 09:34 92 Nasal Cannula 3.00 10/29/17 08:55 18 10/29/17 08:06 98.4 103 18 105/59 (74) 93 10/29/17 05:34 99.0 113 17 116/56 (76) 93 10/29/17 04:01 94 Nasal Cannula 3.00 10/29/17 04:00 Nasal Cannula 4.00 10/29/17 04:00 113 10/29/17 00:04 97.5 111 17 121/58 (79) 93 10/29/17 00:00 109 10/29/17 00:00 Nasal Cannula 4.00 10/28/17 20:54 90 Nasal Cannula 2.00 10/28/17 20:00 114 10/28/17 20:00 Nasal Cannula 4.00 10/28/17 16:00 98.5 107 20 119/56 (77) 90 10/28/17 14:07 95 Nasal Cannula 2.00 10/28/17 12:00 91 (Venus Barrett) -: 10/29/17 0500 10/29/17 0500 Tubes & Lines: Vas-Cath (Venus Barrett) Physical Exam General Appearance: No Acute Distress, Comfortable, Anxious (Venus Barrett) Eyes Eye Exam: Pupils Equal (Veuns Barrett) Pulmonary Resp Exam: Decreased Bases, Diminished Breath Sounds (Venus Barrett) Cardiology CV Exam: Tachycardia (Venus Barrett) Gastrointestinal/Abdomen GI Exam: Soft, Non-Tender, Bowel Sounds Present, Distended (Venus Barrett) Integumentary Skin Exam: Clear, Warm (Venus Barrett) Extremeties Extremities Exam: Moderate Edema (Venus Barrett) Neurologic Neuro Exam: Alert, Awake (Venus Barrett) Assessment/Plan Assessment Summary: ZEUS/Acute Renal Failure Electrolyte Assessment: Hyponatremia Problem List: (1) ZEUS (acute kidney injury) ICD Codes: N17.9 - Acute kidney failure, unspecified Plan: ZEUS most likely ATN from sepsis and low blood pressure. Other differential will be ATN, Acute interstitial nephritis, and Post infectious GN,unlikely. HD started on 10/08 Plan Continue dialysis TTS and monitor for signs of renal recovery. Continue to monitor urine output Avoid nephrotoxins. Anemia Epogen with dialysis Dialysis yesterday 5 liters removed (2) Sepsis ICD Codes: A41.9 - Sepsis, unspecified organism Status: Acute Plan: Antibiotics per ID (3) Endocarditis ICD Codes: I38 - Endocarditis, valve unspecified Status: Acute (Venus Barrett) Problem List: (1) ZEUS (acute kidney injury) ICD Codes: N17.9 - Acute kidney failure, unspecified Plan: ZEUS most likely ATN from sepsis and low blood pressure. Other differential will be ATN, Acute interstitial nephritis, and Post infectious GN,unlikely. HD started on 10/08 Plan Continue dialysis TTS and monitor for signs of renal recovery. Continue to monitor urine output Avoid nephrotoxins. Anemia Epogen with dialysis Dialysis yesterday 5 liters removed. Patient seen and examined, agree with above. Follow the urine out put and BMP. HD as needed, watch for renal recovery. (2) Sepsis ICD Codes: A41.9 - Sepsis, unspecified organism Status: Acute Plan: Antibiotics per ID (3) Endocarditis ICD Codes: I38 - Endocarditis, valve unspecified Status: Acute (Darek Tapia MD) Problem Qualifiers (1) Sepsis: Qualified Codes: A41.9 - Sepsis, unspecified organism (2) Endocarditis: Venus Barrett Oct 29, 2017 10:55 Darek Tapia MD Oct 29, 2017 21:30
[2017-10-29] MEDS: FERROUS SULFATE 325 MG (65 MG ELEMENTAL IRON) TAB PO SCH ×2 (13:25→17:28)
[2017-10-29] MEDS: MORPHINE SULFATE 2 MG/ML SYRINGE IV PUSH PRN ×2 (13:28→17:59)
--- NOTE | 2017-10-29 13:54 | HHI.PR ---
Subjective Remarks Had a large BM. Sleepy No fever or chills. Says he feels better today. Was up in the chair. No n/v/d/ c. Eating better Objective Vitals Vital Signs Date Time Temp Pulse Resp B/P (MAP) Pulse Ox O2 Delivery O2 Flow Rate FiO2 10/29/17 13:11 102 10/29/17 13:05 102 10/29/17 12:06 97.8 109 18 108/67 (81) 94 10/29/17 09:34 92 Nasal Cannula 3.00 10/29/17 08:55 18 10/29/17 08:06 98.4 103 18 105/59 (74) 93 10/29/17 08:00 102 10/29/17 07:15 94 Nasal Cannula 4.00 10/29/17 05:34 99.0 113 17 116/56 (76) 93 10/29/17 04:01 94 Nasal Cannula 3.00 10/29/17 04:00 Nasal Cannula 4.00 10/29/17 04:00 113 10/29/17 00:04 97.5 111 17 121/58 (79) 93 10/29/17 00:00 109 10/29/17 00:00 Nasal Cannula 4.00 10/28/17 20:54 90 Nasal Cannula 2.00 10/28/17 20:00 114 10/28/17 20:00 Nasal Cannula 4.00 10/28/17 16:00 98.5 107 20 119/56 (77) 90 10/28/17 14:07 95 Nasal Cannula 2.00 I/O 10/28/17 10/28/17 10/28/17 10/29/17 10/29/17 10/29/17 07:00 15:00 23:00 07:00 15:00 23:00 Intake Total 100 ml 360 ml 340 ml Output Total 5000 ml 450 ml Balance 100 ml -4640 ml -110 ml Intake Oral 360 ml 240 ml IV Total 100 ml 100 ml Output Urine Total 450 ml Hemodialysis 5000 ml Result Diagram: 10/29/17 0500 10/29/17 0500 Imaging Last Impressions Chest X-Ray 10/26/17 0600 Signed Impressions: Service Date/Time: Thursday, October 26, 2017 03:32 - CONCLUSION: Stable bilateral patchy infiltrates. Mat Alejandra MD Liver Ultrasound 10/24/17 0000 Signed Impressions: Service Date/Time: Tuesday, October 24, 2017 16:43 - CONCLUSION: Hepatosplenomegaly with ascites. Echogenic kidney Madi Mccartney MD Abdomen/Pelvis CT 10/24/17 0000 Signed Impressions: Service Date/Time: Tuesday, October 24, 2017 21:37 - CONCLUSION: 1. Hepatosplenomegaly. 2. Moderate amount of ascites. 3. Diffuse anasarca. 4. Bibasilar pleural effusions and scattered infiltrates. Khoi Padilla MD Tunnelled Chest Tube Removal 10/20/17 0000 Signed Impressions: Service Date/Time: Friday, October 20, 2017 00:00 - CONCLUSION: Uncomplicated chest tube removal. Madi Mccartney MD Chest CT 10/14/17 0000 Signed Impressions: Service Date/Time: Saturday, October 14, 2017 00:26 - CONCLUSION: 1. Bilateral scattered pulmonary nodules are again noted. Several of the right nodules are now cavitary and likely represent septic emboli given the history of IV drug abuse. 2. Interval placement of bilateral chest tubes with small pleural effusions noted. 3. Dense consolidation remains in the posterior lower lobes. Jorge Jang MD Upper Extremity Ultrasound 10/13/17 0000 Signed Impressions: Service Date/Time: Friday, October 13, 2017 11:25 - CONCLUSION: Normal examination. Christian Kaur MD Abdomen X-Ray 10/10/17 0000 Signed Impressions: Service Date/Time: Tuesday, October 10, 2017 16:46 - CONCLUSION: Negative for free air or obstruction. Rahul Yarbrough MD FACR Chest Tube Insertion 10/06/17 0000 Signed Impressions: Service Date/Time: Friday, October 06, 2017 15:37 - CONCLUSION: Uncomplicated chest tube placement as above. Emerson Hui MD Objective Remarks GENERAL: 27-year-old male resting in bed in no acute distress on nasal cannula SKIN: Warm and dry. Extensive tattoos limits skin exam. Anasarca. Positive carrera HEAD: Normocephalic. EYES: No scleral icterus. No injection or drainage. Slight periorbital edema noted. NECK: Supple, trachea midline. No JVD or lymphadenopathy. RIJ Vascath in place. Clean dry and intact CARDIOVASCULAR: S1-S2 no S4.. 2 out of 6 systolic murmur at the left sternal border. RESPIRATORY: Air entry is equal bilaterally, coarse rhonchi and crackles. Left pig tail chest tubes in place. Minimal output GASTROINTESTINAL: Abdomen soft, non-tender, nondistended. MUSCULOSKELETAL: Positive anasarca NEURO EXAM: Alert awake oriented, Pupils are round, reactive to light. Moving all extremities follows commands no focal deficit A/P Assessment and Plan Neuro/Psych IVDU Morphine sulfate 2 mg IV every 2 hours as needed pain 6 to 10, taper down. Continue Fentanyl patch 75 mcg every 72 hours. Taper as tolerated. Consult palliative care for pain management Resp: Acute hypoxemic respiratory failure, improved Extensive septic emboli, consolidation of the lung Loculated left effusion, large right effusion - Extubated 10/17 (Self extubated while on CPAP for planned extubation) - IR placed left chest tube 10/06 with more than 1 L exudative fluid out. Removed 10/20 - Dr. Barraza placed right-sided pigtail chest tube at the bedside 10/09, brown tinged fluid approximately 1.1 L initial output, now output is minimum - Removed right chest tube 10/18/17. - Broad-spectrum antibiotics per ID, see below - Nasal cannula to maintain saturations greater than equal to 92% - Incentive spirometry while awake - Albuterol/ipratropium aerosols every 6 hours while awake with albuterol aerosols every 2 hours. Dyspnea - EzPAP every 6 hours since 10/17 - Fluticasone 44 mcg inhalation twice daily CVS: Large tricuspid valve vegetation Small pericardial effusion Acute systolic heart failure Mild pulmonary hypertension - Bedside echo shows large tricuspid vegetation. repeat bedside echo today 10/18 similar size - Cardiology and CT surgery has followed. D/W Dr. Charles declined surgery due to active IV drug use, multiple medical complications. Discussed with Psychiatric who agreed with plan of our cardiothoracic surgeon. No transfer at this time. May consider OR as third option if tricuspid valve on future echocardiograms reveal worsening tricuspid regurgitation - CARMEN 10/04: EF 45-50 %. Large mobile vegetation on tricuspid valve, 2 separate vegetations 2.1 x 3.2 cm and 2.6 x 0.8 cm. PIP 40.7 mmHg -Echo 10/20 -EF 35-40%. Tricuspid valve vegetation Currently on metoprolol tartrate 25 mg p.o. every 8 hours GI: Hepatosplenomegaly Diarrhea Hypoalbuminemia Hepatitis C genotype 1A Elevated ceruloplasmin MARTÍN + diffuse Elevated total bilirubin Elevated AST -Pantoprazole 40 mg p.o. twice daily due to persistent anemia. GI has followed currently signed off - Hepatitis C reactive. Genotype 1a Viral load 10,700 -Renal diet -Docusate sodium/senna 1 tablet twice daily for bowel regimen Hepatic ultrasound revealed hepatosplenomegaly.. CT abdomen/pelvis 10/24 revealed no obvious hepatic, pancreatic, nephrotic versus musculoskeletal source. Hepatosplenomegaly. Moderate ascites. Anasarca. CPK and troponin normal. Discontinue nephrotoxic drugs including rifampin and acetaminophen Repeat liver function tests in a.m. 10/26 Renal/: Acute kidney failure with fluid overload - Started hemodialysis 10/08,above. - Continue intermittent HD for fluid removal. -2 L today 10/25 - Strict I's and O's, Monitor trend of creatinine - Replace electrolytes as clinically indicated - 10/14-removed vas catheter. Replaced on 10/16 ID: Tricuspid and pulmonic valve endocarditis Septic emboli to the lung Severe sepsis MSSA bacteremia - Discussed with Dr. Charles CT surgery 10/05/17, 10/19, deemed not a surgical candidate, await input from tertiary care center - Cefazolin per ID Dr. Macias. 10/22 discontinued vancomycin 125 mg 4 times daily. 3/to discontinue rifampin due to elevated AST - Persistent MSSA bacteremia 10/04, 10/05 10/07 blood cultures, cultures reviewed. Blood cultures from 10/13 negative, fever trending down now Endo: Sliding scale insulin if indicated Heme: Anemia requiring transfusion Leukocytosis Normocytic anemia - Transfuse PRBC to keep Hb>7.0 - LDH mildly elevated and haptoglobin normal, Transfusion 1u PRBC on 10/14, 10/17 and 10/23 and 10/25 - Monitor CBC, Coags - Thrombocytopenia most likely from sepsis and DIC has resolved -Epogen 10,000 units as needed with hemodialysis MSK: PT evaluate and treat FEN: Hyponatremia Replace electrolytes as clinically indicated Hyponatremia workup ordered. See orders DVT GI prophylaxis - TEDs SCDs - Started Heparin 5000 U sq q12-DCD 10/17 due to persistent anemia requiring transfusion Restart 10/21 -Pantoprazole 40 q12 Physical deconditioning Consult PT/OT Discussed with the patient, ICU nurse Transfer to [facility] Monika Martinez MD Oct 29, 2017 13:54
--- NOTE | 2017-10-29 14:10 | PD.CONS ---
Consult Service Palliative Care Consult Requested By Dr. Martinez. Primary Care Physician No Primary Care Physician Reason for Consultation a. To assist with evaluation and management of symptoms including: Debility.Debility. b. To assist medical decision maker(s) with: better understanding of current medical conditions; weighing benefits/burdens of medical treatment options; making medical treatment decisions. . HPI History of Present Illness Mr. New is a 27-year-old male with a significant history of polysubstance drug abuse and asthma. Patient presented to the emergency room on 10/03/17 endorsing flulike symptoms. Chest x-ray obtained revealing bilateral patchy pulmonary infiltrates suggestive of bilateral pneumonia. UA negative for nitrites, small leukocyte. Patient was admitted for management and monitoring of sepsis. Ribbon Weaver, Dr. Mcallister consulted on 10/03/17. 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 Clinical course complicated by fever, tachycardia, respiratory failure and significant decrease in hemoglobin from 8.9 to 6.6. Patient was intubated and placed on mechanical ventilation. Cardiology, Dr. Roberts consulted on 10/04/17 for consideration of CARMEN which was performed on 10/04/17. It reveals 2 vegetations measuring 2.1 x 3.2 cm and 2.6 x 0.8cm at the tricuspid valve. EF of 45-50%. Cardiothoracic surgeon, Dr. Charles consulted on 10/05. Recommending management with IV antibiotics, no surgical approach at that time. Infectious disease, Dr. Carlyle Macias consulted for management. Blood culture 10/05/17 and 10/07/17 growing Staphylococcus Aureus. Clinical course further complicated by acute kidney injury with fluid overload, likely secondary to acute tubular necrosis. Nephrology, Regnia consulted on . Vas-Cath was placed on 10/08 and patient was started on hemodialysis. GI , Dr. Xiong consulted on 10/09/17 secondary to anemia requiring transfusions. No obvious source of bleeding noted. CT reveal hepatosplenomegaly and splenic vein varices. Patient positive for hep C. On 10/17/17, patient self extubated while on CPAP. Chest tube was discontinued the following day. Patient continues requiring hemodialysis, most recent treatment in 10/28 removing 5 L. Case discussed with Dr. Martinez. [facility] in [place] also declining surgical intervention given multiple medical complications. Palliative care consulted for clarification of goals of care and assistance with psychosocial support. Case discussed with Dr. Carlyle Macias, patient being treated for MSSA bacteremia/endocarditis. Currently on Ancef, likely requiring IV antibiotic treatment for an additional 3-4 weeks. Met with patient in his room. In bed in moderate distress. Endorsing right- sided abdominal pain and buttocks pain. Denies nausea, vomiting or shortness of breath during my visit. In this first visit, reviewed the role of palliative care in advanced illness in regards to symptom management as well as support surrounding goals of care and advance care planning. Patient receptive to my visit. Obtained past medical history and psychosocial history. Patient reports that he had a very troubled childhood with significant history of polysubstance drug abuse. Patient reports that he is started using drugs with marijuana when he was about 10 years old. Battling anxiety, depression and aggressive behavior since he was a child. Reports that substance abuse progress with chronic use of Lortab, ecstasy, crystal meth, acid and IV Dilaudid and heroin. He reports that he started with IV drug use when he was a teenager, does not recall when. This abuse was exacerbated about 2 years ago but reports that he quit in June 2017 when his grandmother . Patient very tearful during my visit. He verbalized "I did this to myself". Denies any prior psychiatric or psychological treatment, although mother with significant history of bipolar. Patient with a fair understanding of his clinical condition and treatment management. He verbalized wishing to get better so he can go back home. Goals of treatment are aggressive. Telephone conversation with patient's mother Mely. Medical update provided. Mother with a fair understanding of patient's clinical condition and current management. Mother under the impression that surgical intervention was denied to patient because "he did it to himself". Explained to mother that patient is not a surgical candidate given multiple ongoing medical complications. Mother verbalized that she has been told by the medical team that patient "may not survive this hospitalization". Reviewed pathophysiology of endocarditis with vegetation to include septic emboli. Mother also verbalizing aggressive management. She reports that she is not coming to the hospital frequently as she has been having a lot of verbal altercations with patient. Mother reports that since patient had "acid overdose" back in February of last year, he is not "himself anymore". Mother receptive to palliative care follow-ups for medical updates and emotional support. . Function/Cognitive Trajectory Patient residing with both parents prior to this hospitalization. Fully independent with all ADLs. Mother reports that patient has been having cognitive decline to include forgetfulness and increased aggressive behaviors since "acid overdose" in February of last year. . Review of Systems Constitutional: COMPLAINS OF: Change in appetite, Pain, Generalized weakness, DENIES: Fever Endocrine: DENIES: Heat/cold intolerance Eyes: DENIES: Eye inflammation, Eye pain, Vision loss Ears, nose, mouth, throat: DENIES: Nasal discharge, Throat pain, Ear Pain, Running Nose Respiratory: COMPLAINS OF: Shortness of breath, DENIES: Cough, Hemoptysis Cardiovascular: COMPLAINS OF: Dyspnea on Exertion, Lower Extremity Edema Gastrointestinal: COMPLAINS OF: Abdominal pain, DENIES: Constipation, Nausea, Vomiting, Difficulty Swallowing Genitourinary: DENIES: Urinary incontinence, Hematuria Musculoskeletal: COMPLAINS OF: Muscle aches Integumentary: DENIES: Abnormal pigmentation Hematologic/Lymphatics: COMPLAINS OF: Bruising Immunologic/Allergic: DENIES: Eczema Neurologic: DENIES: Headache, Localized weakness, Seizures, Speech Problems, Tremor Psychiatric: COMPLAINS OF: Anxiety, Confusion, Mood changes, Depression Past Family Social History Coded Allergies: erythromycin base (Verified Allergy, Severe, Nausea/Vomiting, 10/03/17) raspberry (Unverified Allergy, Mild, 10/03/17) Past Medical History Polysubstance drug abuse Asthma Anxiety -untreated Depression -untreated . Past Surgical History none. . Reported Medications Methocarbamol 500 Mg Tab 500 Mg PO QID Naproxen 500 Mg Tab 500 Mg PO BID Flovent Hfa (Fluticasone Propionate) 44 Mcg Aero 2 Puff INH BID Kelsie-D 24 Hour Allergy (Fexofenadine-Pseudoephedrine) 24 Hour Tab 24 Hour OR DAILY Augmentin (Amoxicillin/Clavulanate Potassium) 875 Mg Tab 875 Mg PO BID Proventil Mdi (Albuterol Sulfate) 17 Gm Aero . Current Medications Medications (Trade) Dose Ordered Sig/Willem Route Start Time Stop Time Status Last Admin (NS Flush) 2 ml UNSCH PRN IV FLUSH 10/03/17 21:15 10/15/17 20:58 (NS Flush) 2 ml BID IV FLUSH 10/04/17 09:00 10/29/17 08:38 (Zofran Inj) 4 mg Q6H PRN IV PUSH 10/03/17 21:15 10/23/17 16:35 (Restoril) 15 mg HS PRN PO 10/03/17 21:15 10/27/17 20:29 Miscellaneous Information 1 Q361D XX 10/03/17 21:15 (Chlorhexidine 2% Cloth) Taper DAILY@04 TOP 10/04/17 04:00 09/30/18 03:59 10/26/17 21:40 (Chlorhexidine 2% Cloth) 3 pack UNSCH PRN TOP 10/03/17 21:15 (Renita-Colace) 1 tab BID PO 10/04/17 09:00 10/29/17 08:37 (Senokot) 17.2 mg Q12H PRN PO 10/03/17 21:15 (Dulcolax Supp) 10 mg DAILY PRN RECTAL 10/03/17 21:15 10/11/17 17:08 (Lactulose Liq) 30 ml DAILY PRN PO 10/03/17 21:15 10/11/17 17:08 (Flovent Hfa 44 Mcg Inh) 2 puff BID INH 10/04/17 09:00 10/29/17 08:38 (Peridex 0.12% Liq) 15 ml BID@08,20 MT 10/04/17 20:00 10/28/17 08:00 Sodium Chloride 1,000 ml @ 0 mls/hr Q0M PRN OTHER 10/08/17 10:33 10/25/17 10:39 (Heparin Inj) 8,000 units UNSCH PRN IV FLUSH 10/08/17 10:45 Sodium Chloride 1,000 ml @ 200 mls/hr Q5H PRN IV 10/08/17 11:15 10/11/17 08:57 Sodium Chloride 1,000 ml @ 0 mls/hr Q0M PRN OTHER 10/08/17 11:15 (Mannitol Inj) 12.5 gm UNSCH PRN IV 10/08/17 11:15 Albumin Human 100 ml @ 60 mls/hr UNSCH PRN IV 10/08/17 11:30 10/28/17 09:55 (NS Flush) 5 ml UNSCH PRN IV FLUSH 10/08/17 11:15 10/25/17 10:40 (Heparin Inj) UNSCH PRN .XX 10/08/17 11:15 10/28/17 09:58 (Gentamicin Inj) 20 mg UNSCH PRN OTHER 10/08/17 11:15 10/28/17 09:57 (Zofran Inj) 4 mg UNSCH PRN IV PUSH 10/08/17 11:15 (Benadryl) 25 mg UNSCH PRN PO 10/08/17 11:15 (Nitrostat Sl) 0.4 mg UNSCH PRN SL 10/08/17 11:30 (Catapres) 0.1 mg UNSCH PRN PO 10/08/17 11:30 (Epogen Inj) 10,000 units UNSCH PRN IV PUSH 10/08/17 11:30 10/28/17 09:57 (Gelfoam 12 Mm/7 Mm Top) 1 foam UNSCH PRN TOP 10/08/17 11:30 (Lactinex) 1 tab TID PO 10/17/17 13:00 10/29/17 08:37 (Duragesic 100 Mcg Patch.72 Hr) 1 patch Q3D T-DERMAL 10/18/17 12:00 10/27/17 14:40 Miscellaneous Information 1 Q3D T-DERMAL 10/21/17 12:00 10/27/17 12:00 (Santyl Oint) 1 applic DAILY TOPICAL 10/20/17 16:00 10/29/17 08:38 (Albuterol Neb) 2.5 mg Q2HR NEB PRN NEB 10/21/17 13:30 10/29/17 05:44 (Protonix) 40 mg Q12HR PO 10/21/17 21:00 10/29/17 08:37 (Sundance 5-325 Mg) 1 tab Q4H PRN PO 10/21/17 13:45 10/26/17 15:07 (Heparin Inj) 5,000 units Q12HR SQ 10/21/17 21:00 10/29/17 08:37 (Phoslo) 667 mg TID PO 10/23/17 13:00 10/29/17 08:37 Cefazolin Sodium 1000 mg/Sodium Chloride 100 ml @ 200 mls/hr Q12H IV 10/24/17 03:00 10/29/17 01:43 (Haldol Inj) 5 mg Q4H PRN IV PUSH 10/23/17 23:30 10/26/17 23:39 (Lopressor) 25 mg Q8HR PO 10/25/17 22:00 10/29/17 05:20 (Sodium Chloride) 1 gm DAILY PO 10/26/17 09:00 10/29/17 08:37 (Duoneb Neb) 1 ampule Q6HR NEB NEB 10/25/17 22:00 10/29/17 09:32 (Ferrous Sulfate) 325 mg BID@12,17 PO 10/27/17 12:00 10/28/17 17:40 (Morphine Inj) 2 mg Q4H PRN IV PUSH 10/29/17 12:45 Family History Mother with bipolar disease and liver failure Father with bladder cancer and AAA Aunt and mother with spherocytosis . Substance Use Tobacco: Smoking 1 pack per day since age 10. Alcohol: None reported. Illicits: Polysubstance drug abuse to include marijuana, Lortab, ecstasy, crystal meth, acid and IV Dilaudid and heroin. . Psychosocial History Patient originally from [facility]. Single, no children. Residing with both parents. 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 He reports being engaged to girlfriend Tamy. No service. . Spiritual/Cultural Factors Moravian julia. . Living Will: Never completed Health Care Surrogate: Never completed Durable Power of Minister Assistant: Never completed Health Care Surrogate(s): No advance directives completed. Patient is single, no children. As per [place] statue, healthcare proxy decision making foals to patient's parents. . Today's verbally stated goals: Patient verbalizing aggressive goals. . Family/friends goals: Mother Mely supportive of patient's wishes. . Ethical and Legal Issues No ethical legal issues identified. . Physical Exam Vital Signs Date Time Temp Pulse Resp B/P (MAP) Pulse Ox O2 Delivery O2 Flow Rate FiO2 10/29/17 12:06 97.8 109 18 108/67 (81) 94 10/29/17 09:34 92 Nasal Cannula 3.00 10/29/17 08:55 18 10/29/17 08:06 98.4 103 18 105/59 (74) 93 10/29/17 05:34 99.0 113 17 116/56 (76) 93 10/29/17 04:01 94 Nasal Cannula 3.00 10/29/17 04:00 Nasal Cannula 4.00 10/29/17 04:00 113 10/29/17 00:04 97.5 111 17 121/58 (79) 93 10/29/17 00:00 109 10/29/17 00:00 Nasal Cannula 4.00 10/28/17 20:54 90 Nasal Cannula 2.00 10/28/17 20:00 114 10/28/17 20:00 Nasal Cannula 4.00 10/28/17 16:00 98.5 107 20 119/56 (77) 90 10/28/17 14:07 95 Nasal Cannula 2.00 Exam CONSTITUTIONAL/GENERAL: This is an adequately nourished young patient in bed in moderate distress. Restless during my visit. TUBES/LINES/DRAINS: Nasal cannula, Vas-Cath, PIV. SKIN: No jaundice, rashes, or lesions. No wounds seen anteriorly. Skin temperature appropriate. Not diaphoretic. Large areas of tattoos from head to toe, multiple body piercings. HEAD: Atraumatic. Normocephalic. EYES: Pupils equal and round and reactive. Extraocular motions intact. No scleral icterus. No injection or drainage. ENT: Hearing grossly normal. Nose without bleeding or purulent drainage. Moist oral mucosa. NECK: Trachea midline. Supple, nontender. CARDIOVASCULAR: Regular rate and rhythm. No JVD. Peripheral pulses symmetric. RESPIRATORY/CHEST: Symmetric, unlabored respirations. Clear, diminished to auscultation. Breath sounds equal bilaterally. GASTROINTESTINAL: Abdomen large, round, tender. Bowel sounds present. GENITOURINARY: Without palpable bladder distension. MUSCULOSKELETAL: Extremities without clubbing, cyanosis. No mottling or clubbing. Trace edema to bilateral lower extremities. NEUROLOGICAL: Awake and alert x self, place and situation. Forgetful at times. Follows commands. Moves all extremities. PSYCHIATRIC: Tearful, anxious. . Diagnostic Tests Laboratory Laboratory Tests Test 10/26/17 18:54 10/28/17 05:11 10/29/17 05:00 Urine Osmolality 300 MOSM/KG (300-1300) Urine Random Sodium 94 MEQ/L Urine Opiates Screen POS (NEG) Urine Barbiturates Screen NEG (NEG) Urine Amphetamines Screen NEG (NEG) Urine Benzodiazepines Screen POS (NEG) Urine Cocaine Screen NEG (NEG) Urine Cannabinoids Screen NEG (NEG) White Blood Count 17.0 TH/MM3 (4.0-11.0) 17.0 TH/MM3 (4.0-11.0) Red Blood Count 2.78 MIL/MM3 (4.50-5.90) 2.71 MIL/MM3 (4.50-5.90) Hemoglobin 8.0 GM/DL (13.0-17.0) 7.8 GM/DL (13.0-17.0) Hematocrit 23.9 % (39.0-51.0) 23.3 % (39.0-51.0) Mean Corpuscular Volume 85.9 FL (80.0-100.0) 85.9 FL (80.0-100.0) Mean Corpuscular Hemoglobin 28.7 PG (27.0-34.0) 28.6 PG (27.0-34.0) Mean Corpuscular Hemoglobin Concent 33.4 % (32.0-36.0) 33.3 % (32.0-36.0) Red Cell Distribution Width 19.5 % (11.6-17.2) 19.8 % (11.6-17.2) Platelet Count 114 TH/MM3 (150-450) 125 TH/MM3 (150-450) Mean Platelet Volume 8.8 FL (7.0-11.0) 8.7 FL (7.0-11.0) Neutrophils (%) (Auto) 85.6 % (16.0-70.0) Lymphocytes (%) (Auto) 4.3 % (9.0-44.0) Monocytes (%) (Auto) 7.9 % (0.0-8.0) Eosinophils (%) (Auto) 1.7 % (0.0-4.0) Basophils (%) (Auto) 0.5 % (0.0-2.0) Neutrophils # (Auto) 14.5 TH/MM3 (1.8-7.7) Lymphocytes # (Auto) 0.7 TH/MM3 (1.0-4.8) Monocytes # (Auto) 1.3 TH/MM3 (0-0.9) Eosinophils # (Auto) 0.3 TH/MM3 (0-0.4) Basophils # (Auto) 0.1 TH/MM3 (0-0.2) CBC Comment AUTO DIFF AUTO DIFF Differential Comment AUTO DIFF CONFIRMED FINAL DIFF MANUAL Platelet Estimate LOW (NORMAL) LOW (NORMAL) Platelet Morphology Comment NORMAL (NORMAL) NORMAL (NORMAL) Blood Urea Nitrogen 59 MG/DL (7-18) 37 MG/DL (7-18) Creatinine 7.13 MG/DL (0.60-1.30) 5.86 MG/DL (0.60-1.30) Random Glucose 87 MG/DL (74-106) 98 MG/DL (74-106) Calcium Level 8.8 MG/DL (8.5-10.1) 8.5 MG/DL (8.5-10.1) Sodium Level 126 MEQ/L (136-145) 130 MEQ/L (136-145) Potassium Level 4.0 MEQ/L (3.5-5.1) 3.9 MEQ/L (3.5-5.1) Chloride Level 89 MEQ/L (98-107) 93 MEQ/L (98-107) Carbon Dioxide Level 22.5 MEQ/L (21.0-32.0) 24.3 MEQ/L (21.0-32.0) Anion Gap 15 MEQ/L (5-15) 13 MEQ/L (5-15) Estimat Glomerular Filtration Rate 9 ML/MIN (>89) 12 ML/MIN (>89) Differential Total Cells Counted 100 Neutrophils % (Manual) 84 % (16-70) Band Neutrophils % 1 % (0-6) Lymphocytes % 4 % (9-44) Monocytes % 11 % (0-8) Neutrophils # (Manual) 14.5 TH/MM3 (1.8-7.7) Result Diagram: 10/29/17 0500 10/29/17 0500 Microbiology Microbiology Date/Time Source Procedure Growth Status 10/18/17 15:40 Blood Peripheral Aerobic Blood Culture - Final NO GROWTH IN 5 DAYS Complete 10/18/17 15:40 Blood Peripheral Anaerobic Blood Culture - Final NO GROWTH IN 5 DAYS Complete 10/09/17 12:00 Fluid Pleural Fluid Fungal Smear - Final NO FUNGAL ELEMENTS SEEN. Resulted 10/09/17 12:00 Fluid Pleural Fluid Fungal Culture - Preliminary NO GROWTH IN 2 WEEKS Resulted 10/16/17 12:55 Sputum Endotracheal Gram Stain - Final Complete 10/16/17 12:55 Sputum Endotracheal Sputum Culture - Final RARE GROWTH NORMAL RESPIRATORY RHIANNON Complete 10/03/17 21:30 Urine Random Urine Legionella Antigen - Final PRESUMPTIVE NEGATIVE FOR LEGIONELLA P... Complete 10/03/17 21:30 Urine Random Urine Streptococcus pneumoniae Antigen (M - Final PRESUMPTIVE NEGATIVE FOR STREPTOCOCCU... Complete Imaging Last Impressions Chest X-Ray 10/26/17 0600 Signed Impressions: Service Date/Time: Thursday, October 26, 2017 03:32 - CONCLUSION: Stable bilateral patchy infiltrates. Mat Alejandra MD Liver Ultrasound 10/24/17 0000 Signed Impressions: Service Date/Time: Tuesday, October 24, 2017 16:43 - CONCLUSION: Hepatosplenomegaly with ascites. Echogenic kidney Madi Mccartney MD Abdomen/Pelvis CT 10/24/17 0000 Signed Impressions: Service Date/Time: Tuesday, October 24, 2017 21:37 - CONCLUSION: 1. Hepatosplenomegaly. 2. Moderate amount of ascites. 3. Diffuse anasarca. 4. Bibasilar pleural effusions and scattered infiltrates. Khoi Padilla MD Tunnelled Chest Tube Removal 10/20/17 0000 Signed Impressions: Service Date/Time: Friday, October 20, 2017 00:00 - CONCLUSION: Uncomplicated chest tube removal. Madi Mccartney MD Chest CT 10/14/17 0000 Signed Impressions: Service Date/Time: Saturday, October 14, 2017 00:26 - CONCLUSION: 1. Bilateral scattered pulmonary nodules are again noted. Several of the right nodules are now cavitary and likely represent septic emboli given the history of IV drug abuse. 2. Interval placement of bilateral chest tubes with small pleural effusions noted. 3. Dense consolidation remains in the posterior lower lobes. Jorge Jang MD Upper Extremity Ultrasound 10/13/17 0000 Signed Impressions: Service Date/Time: Friday, October 13, 2017 11:25 - CONCLUSION: Normal examination. Christian Kaur MD Abdomen X-Ray 10/10/17 0000 Signed Impressions: Service Date/Time: Tuesday, October 10, 2017 16:46 - CONCLUSION: Negative for free air or obstruction. Rahul Yarbrough MD FACR Chest Tube Insertion 10/06/17 0000 Signed Impressions: Service Date/Time: Friday, October 06, 2017 15:37 - CONCLUSION: Uncomplicated chest tube placement as above. Emerson Hui MD Procedures * 10/04/17 -endotracheal intubation * 10/08/17 -Vas-Cath placement * 10/09/17 -right pigtail chest tube * 10/17/17 -self extubated * 10/18/17 -chest tube discontinued . Patient/Family Conference Present at Family Conference: Patient, mother Mely via telephone. . Family Conference Time (mins): 52 Family Conference Location: Bedside, Telephone Issues Discussed: * Palliative care role, purpose, approach * Additional medical, psychosocial, and spiritual history * Patients general health, functional status, and cognitive changes in the months leading up to the current hospitalization * Patient/family understanding of the current medical problems * Patient/family understanding of prognosis * Patients goals of care as best understood from advance directives and/or conversations and/or values * Current medical treatment options and benefits/burdens of those options * Questions answered to the best of my ability * Palliative care contact information provided . Assessment and Plan Disease Oriented Problem List: (1) Septic embolism (2) Tricuspid valve vegetation (3) MSSA bacteremia (4) Acute systolic heart failure (5) Hepatosplenomegaly (6) Hepatitis C (7) Anemia (8) ZEUS (acute kidney injury) (9) IV drug abuse Symptom Scale: (1) Depression 0-10 Scale: Unable to quantify (2) Debility 0-10 Scale: Unable to quantify (3) Pain 0-10 Scale: Unable to quantify Pertinent Non-Medical Issues Psychosocial: Patient originally from [facility]. Single, no children. Residing with both parents. 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 He reports being engaged to girlfriend Tamy. No service. Spiritual: Moravian julia. Legal: No advance directives completed Ethical issues impacting care: No ethical issues identified. . Important Contacts Mother Mely , alternate number for sister Venus. Father Mendoza . . Prognosis Mr. New is a 27-year-old male with a significant history of polysubstance drug abuse and asthma. Patient presented to the emergency room on 10/03/17 endorsing flulike symptoms. He was admitted for sepsis, pneumonia. ETT later revealing large tricuspid mobile vegetation. Clinical course complicated by extensive septic emboli, respiratory failure, acute kidney injury requiring hemodialysis. Cardiothoracic surgery at [place] in at [facility] again maría consulted. Patient not a surgical candidate given multiple medical complications. Overall prognosis is guarded, patient at high risk for ongoing septic emboli, further complications, continue decline and . . Code Status: Full Code Plan * CODE STATUS: Full code. * HEALTHCARE DECISION-MAKING: Patient participating a medical decision making. Fair insight into his complicated medical issues. No advance directives completed. As per [place] statute, healthcare proxy decision making folds to patient's parents Mely and Mendoza New. Patient was offered assistance with completion of advance directives, he declined. He verbalized being okay with both of his parents making medical decisions on his behalf. * GOALS OF CARE: Patient verbalizing aggressive goals of care to include FULL code. He verbalized wishing to get better so he can go back home. Overall prognosis and additional goals of care not addressed during this visit given patient's emotional state. Patient tearful, verbalizing " I did this to myself" . Endorsing strong feelings of sadness, difficulty coping with overall medical condition and prolonged hospitalization. Patient receptive to palliative care follow-ups for ongoing emotional support. Patient's parents supportive of aggressive goals. Difficult psychosocial situation which affects long-term plans for this patient. Patient has no payer source or coverage for rehabilitation. * SYMPTOMS: * =Depression: Patient reports significant anxiety and depression since childhood. No psychiatric or psychological treatment reported. Significant history of multi-substance drug abuse which started at age 10. Patient tearful, verbalizing " I did this to myself". Patient endorsing strong feelings of sadness, difficulty coping with overall medical condition and prolonged hospitalization. Palliative care recommends psychiatric consult for evaluation and management. Patient's mother with significant history of bipolar disorder. * = Debility: Secondary to acute illness, multiple medical complications and prolonged hospitalization. PT OT following. * = Pain: Management deferred to attending given significant history of polysubstance IV drug abuse. Management beyond the scope of palliative care expertise. * Case discussed in great detail with Dr. Martinez and Dr. Carlyle Macias. * Palliative care contact information has been provided to patient and family. * Palliative care will continue to follow up for further clarification of goals , emotional support as patient's clinical course continues to evolve. . Time Spent Total Floor Time (mins): 77 (Total time to include review and summarization of available medical records, physical exam, goals of care conversation with patient, telephone conversation with patient's mother, case discussion with attending and Dr. Carlyle Macias. ) >50% Counseling/Coord of Care: Yes Thank you for the opportunity to participate in the care of Mr. New. Attestation To help prompt me to consider important information that might be impacting today's encounter and assessment, information from prior notes written by myself or my colleagues may have been "brought forward" into today's note. My signature on this note, however, is an attestation that I personally performed the exam, history, and/or decision-making noted today, and, unless otherwise indicated, the interactions with patient, family, and staff as well as the review of records all occurred today. I also attest that the listed assessment and stated plan reflect my best clinical judgment today based on the combination of historical information, prior notes, and today's exam/ interactions. When time spent is documented, it refers only to time spent today by the signer, or if indicated, combined time spent today by collaborating physician/nurse practitioner. Autumn Goins Oct 29, 2017 14:04
--- NOTE | 2017-10-29 19:28 | HHI.PR ---
Subjective Remarks At the request of Dr. Martinez, I went to evaluate the patient and make recommendations regarding chronic opiate dependence to control his inpatient pain and opiate dependence. Upon entering the room, the patient was talking on the phone. He did not stop to acknowledge me. When I introduced myself, he looked over and stated, "Can you come back tomorrow? I'm on the phone." At the patient's request, I will re-evaluate the patient tomorrow and make recommendations regarding his opiate dependence. As best I can evaluate by chart review and general appearance, the patient is not in acute distress and there is not an emergent need for my consult recommendations tonight. Objective Vital Signs Date Time Temp Pulse Resp B/P (MAP) Pulse Ox O2 Delivery O2 Flow Rate FiO2 10/29/17 18:42 103 10/29/17 18:21 18 10/29/17 16:06 97.4 103 17 114/62 (79) 94 10/29/17 13:11 102 10/29/17 13:05 102 10/29/17 12:06 97.8 109 18 108/67 (81) 94 10/29/17 09:34 92 Nasal Cannula 3.00 10/29/17 08:55 18 10/29/17 08:06 98.4 103 18 105/59 (74) 93 10/29/17 08:00 102 10/29/17 07:15 94 Nasal Cannula 4.00 10/29/17 05:34 99.0 113 17 116/56 (76) 93 10/29/17 04:01 94 Nasal Cannula 3.00 10/29/17 04:00 Nasal Cannula 4.00 10/29/17 04:00 113 10/29/17 00:04 97.5 111 17 121/58 (79) 93 10/29/17 00:00 109 10/29/17 00:00 Nasal Cannula 4.00 10/28/17 20:54 90 Nasal Cannula 2.00 10/28/17 20:00 114 10/28/17 20:00 Nasal Cannula 4.00 I/O 10/28/17 10/28/17 10/28/17 10/29/17 10/29/17 10/29/17 07:00 15:00 23:00 07:00 15:00 23:00 Intake Total 100 ml 360 ml 340 ml 700 ml Output Total 5000 ml 450 ml 200 ml Balance 100 ml -4640 ml -110 ml 500 ml Intake Oral 360 ml 240 ml 600 ml IV Total 100 ml 100 ml 100 ml Output Urine Total 450 ml 200 ml Hemodialysis 5000 ml # Bowel Movements 1 Result Diagram: 10/29/17 0500 10/29/17 0500 Joel Fischer MD Oct 29, 2017 19:28
[2017-10-30] VITALS (10 sets, daily range): BP systolic 100–126; BP diastolic 56–88; PULSE 103–120; RESP 18–20; TEMP 97.3–99; O2SAT 93–100
[2017-10-30] MEDS: MORPHINE SULFATE 2 MG/ML SYRINGE IV PUSH PRN ×2 (00:36→05:49)
[2017-10-30] MEDS: CHLORHEXIDINE GLUCONATE 2 % 1 PACK (2 CLOTHS) TOP SCH (04:00)
[2017-10-30 05:50] LABS: AUTOMATED NEUTROPHIL # 13.3 TH/MM3 (1.8-7.7); BASOPHIL # 0.1 TH/MM3 (0-0.2); BASOPHIL % 0.6 % (0.0-2.0); EOSINOPHIL # 0.5 TH/MM3 (0-0.4); EOSINOPHIL % 3.3 % (0.0-4.0); HEMATOCRIT 24.6 % (39.0-51.0); HEMOGLOBIN 8.5 GM/DL (13.0-17.0); LYMPH % 5.7 % (9.0-44.0); LYMPHOCYTE # 0.9 TH/MM3 (1.0-4.8); MEAN CORPUSCULAR HEMOGLOBIN 29.7 PG (27.0-34.0); MEAN CORPUSCULAR HGB CONC 34.5 % (32.0-36.0); MEAN PLATELET VOLUME 8.2 FL (7.0-11.0); MONO % 8.6 % (0.0-8.0); MONOCYTE # 1.4 TH/MM3 (0-0.9); NEUT % 81.8 % (16.0-70.0); PLATELET COUNT 125 TH/MM3 (150-450); RED BLOOD COUNT 2.86 MIL/MM3 (4.50-5.90); WHITE BLOOD COUNT 16.2 TH/MM3 (4.0-11.0)
[2017-10-30] MEDS: METOPROLOL TARTRATE 25 MG TAB PO SCH ×3 (05:54→23:41)
[2017-10-30] MEDS: RESP: ALBUTEROL 2.5 MG/3 ML NEB (PRN) NEB ×3 (06:06→20:43)
[2017-10-30 06:12] LABS: BICARBONATE 23.9 MEQ/L (21.0-32.0); CALCIUM 8.2 MG/DL (8.5-10.1); CREATININE 6.53 MG/DL (0.60-1.30)
[2017-10-30] MEDS: CHLORHEXIDINE 0.12% (ORAL KIT) 15 ML CUP MT SCH ×2 (08:00→20:00)
[2017-10-30] MEDS: SODIUM CHLORIDE 1 GRAM TAB PO SCH (09:00)
[2017-10-30] MEDS: CALCIUM ACETATE 667 MG CAP PO SCH ×3 (09:00→17:32)
[2017-10-30] MEDS: LACTOBACILLUS ACIDOPHILUS TAB PO SCH ×3 (09:00→17:32)
[2017-10-30] MEDS: HEPARIN SODIUM - SQ 10,000 UNITS/ML VIAL SQ SCH ×2 (09:00→23:42)
[2017-10-30] MEDS: DOCUSATE SODIUM 50 MG/SENNA 8.6 MG TAB PO SCH ×2 (09:00→21:00)
[2017-10-30] MEDS: COLLAGENASE OINT 30 GM TUBE TOPICAL SCH (09:00)
[2017-10-30] MEDS: SODIUM CHLORIDE 0.9% FLUSH 10 ML FLUSH IV FLUSH SCH ×2 (09:00→23:43)
[2017-10-30] MEDS: PANTOPRAZOLE SOD 40 MG DELAYED RELEASE TAB PO SCH ×2 (09:00→23:41)
--- NOTE | 2017-10-30 10:23 | HHI.NPPN ---
Subjective Complaints: Shortness of Breath Renal Failure: Acute History of Present Illness Patient is 27-year-old male who reported to ER with body aches, 7 days of diarrhea with development fever. Past medical history of IV drug use. Patient is sedated and ventilated FiO2 at 40 %. Nephrology is consulted for ZEUS and fluid over load status. Patients creatinine is 3.02 and GFR 25ml/min. Patient is UOP at 800cc for last 24 hours. Weight has increased by over 10 kg since admission. IVF's have been stopped and lasix has been given. Patient has endocarditis with large tricuspid valve vegetation, and pulmonic vegetation. Noted to have bacteremia with hypotension with SBP in the 90's. Additional Remarks Seen during dialysis. Does not report any problems. (Venus Barrett) Review of Systems Respiratory Lungs: SOB (Venus Barrett) Cardiovascular Cardiac Remarks denies CP (Venus Barrett) Psych Psych: Depression, Anxiety (Venus Barrett) Objective Data Data Vital Signs Date Time Temp Pulse Resp B/P (MAP) Pulse Ox O2 Delivery O2 Flow Rate FiO2 10/30/17 08:00 98.0 103 18 113/68 (83) 94 10/30/17 04:00 106 10/30/17 04:00 97.9 106 18 118/67 (84) 98 10/30/17 00:00 Nasal Cannula 4.00 10/30/17 00:00 109 10/30/17 00:00 98.0 110 18 107/64 (78) 93 10/29/17 20:27 96 Nasal Cannula 3.50 10/29/17 20:00 98.0 105 18 128/63 (84) 95 10/29/17 20:00 103 10/29/17 19:00 95 Nasal Cannula 4.00 10/29/17 18:42 103 10/29/17 18:21 18 10/29/17 16:06 97.4 103 17 114/62 (79) 94 10/29/17 13:11 102 10/29/17 13:05 102 10/29/17 12:06 97.8 109 18 108/67 (81) 94 (Venus Barrett) -: 10/30/17 0353 10/30/17 0333 Tubes & Lines: Vas-Cath (Venus BarrettP) Physical Exam General Appearance: No Acute Distress, Comfortable, Anxious (Venus BarrettP) Eyes Eye Exam: Pupils Equal (Venus Barrett) Pulmonary Resp Exam: Decreased Bases, Diminished Breath Sounds (Venus BarrettP) Cardiology CV Exam: Tachycardia (Venus BarrettP) Gastrointestinal/Abdomen GI Exam: Soft, Non-Tender, Bowel Sounds Present, Distended (Venus BarrettP) Integumentary Skin Exam: Clear, Warm (Venus BarrettP) Extremeties Extremities Exam: Moderate Edema (Venus Barrett) Neurologic Neuro Exam: Alert, Awake (Venus Barrett) Assessment/Plan Assessment Summary: ZEUS/Acute Renal Failure Electrolyte Assessment: Hyponatremia Problem List: (1) ZEUS (acute kidney injury) ICD Codes: N17.9 - Acute kidney failure, unspecified Plan: ZEUS most likely ATN from sepsis and low blood pressure. Other differential will be ATN, Acute interstitial nephritis, and Post infectious GN,unlikely. HD started on 10/08 Plan Avoid nephrotoxins. Anemia Epogen with dialysis Seen during dialysis Follow the urine out put and BMP. HD as needed, watch for renal recovery. (2) Sepsis ICD Codes: A41.9 - Sepsis, unspecified organism Status: Acute Plan: Antibiotics per ID (3) Endocarditis ICD Codes: I38 - Endocarditis, valve unspecified Status: Acute (Venus BarrettP) Problem List: (1) ZEUS (acute kidney injury) ICD Codes: N17.9 - Acute kidney failure, unspecified Plan: ZEUS most likely ATN from sepsis and low blood pressure. Other differential will be ATN, Acute interstitial nephritis, and Post infectious GN,unlikely. HD started on 10/08 Plan Avoid nephrotoxins. Anemia Epogen with dialysis Seen during dialysis Follow the urine out put and BMP. HD as needed, watch for renal recovery. Patient seen and examined, agree with above. D/W patient's father. (2) Sepsis ICD Codes: A41.9 - Sepsis, unspecified organism Status: Acute Plan: Antibiotics per ID (3) Endocarditis ICD Codes: I38 - Endocarditis, valve unspecified Status: Acute (Darek Tapia MD) Problem Qualifiers (1) Sepsis: Qualified Codes: A41.9 - Sepsis, unspecified organism (2) Endocarditis: Venus Barrett Oct 30, 2017 10:23 Darek Tapia MD Oct 30, 2017 21:40
[2017-10-30] MEDS: FLUTICASONE PROPIONATE 44 MCG/ACT 10.6 GM INHALER INH SCH ×2 (10:25→23:43)
[2017-10-30] MEDS: REMOVE OLD PATCH T-DERMAL SCH (12:00)
[2017-10-30] MEDS: HEPARIN SODIUM - IV 10,000 UNITS/10 ML VIAL PRN (12:06)
[2017-10-30] MEDS: EPOETIN ALFA 10,000 UNITS/ML VIAL IV PUSH PRN (12:06)
[2017-10-30] MEDS: GENTAMICIN SULFATE 20 MG/2 ML VIAL OTHER PRN (12:06)
[2017-10-30] MEDS: ALBUMIN 25% INJ 100 ML IV PRN (12:07)
[2017-10-30] MEDS: FERROUS SULFATE 325 MG (65 MG ELEMENTAL IRON) TAB PO SCH ×2 (13:21→17:32)
[2017-10-30] MEDS: fentaNYL 100 MCG/HR PATCH T-DERMAL SCH (13:22)
--- NOTE | 2017-10-30 14:01 | HHI.IDPN ---
Subjective Subjective Remarks is a 27 y/o CM with remote history of IV drug abuse, states he last used heroin 2 months ago, presents for evaluation of body aches, 7 days of diarrhea with development of subjective fever yesterday. Patient denies any nausea or vomiting. He denies any chest pain. This has developed within the last 24 hours. Patient does have a cough with clear sputum. Denies any prior history of endocarditis. Denies any abdominal pain. Does report some left back pain, worse while lying flat. He is well reports generalized weakness. Patient met criteria for sepsis on admission. Flu antigen negative. CXR with bilateral infiltrates. performed a bedside 2D ECHO and verbally reported a large ~4.5 cm vegetation on TV. CXR suspicious for septic emboli. Blood cultures drawn but it appears patient has received augmentin at some point and cultures may possibly be negative. ID is following for evaluation and M'ment of Severe Sepsis and Endocarditis. Overnight events reviewed. Awake,AAOx3,NF. BP ok HD tues, thurs and Sat No rash No diarrhea Stat vitals: BP ok, HR 100, Sats 100% on 4L. Appears more Short of breath even though s/p Hemodialysis and reported removal of 2.5L. Antibiotics Current Medications Medications (Trade) Dose Ordered Sig/Willem Route Start Time Stop Time Status Last Admin (NS Flush) 2 ml UNSCH PRN IV FLUSH 10/03/17 21:15 10/15/17 20:58 (NS Flush) 2 ml BID IV FLUSH 10/04/17 09:00 10/24/17 08:41 (Morphine Inj) 2 mg Q2H PRN IV PUSH 10/03/17 21:15 10/23/17 20:32 (Zofran Inj) 4 mg Q6H PRN IV PUSH 10/03/17 21:15 10/23/17 16:35 (Restoril) 15 mg HS PRN PO 10/03/17 21:15 Miscellaneous Information 1 Q361D XX 10/03/17 21:15 (Chlorhexidine 2% Cloth) 3 pack Taper DAILY@04 TOP 10/04/17 04:00 09/30/18 03:59 10/24/17 04:00 (Chlorhexidine 2% Cloth) 3 pack UNSCH PRN TOP 10/03/17 21:15 (Renita-Colace) 1 tab BID PO 10/04/17 09:00 10/23/17 20:29 (Senokot) 17.2 mg Q12H PRN PO 10/03/17 21:15 (Dulcolax Supp) 10 mg DAILY PRN RECTAL 10/03/17 21:15 10/11/17 17:08 (Lactulose Liq) 30 ml DAILY PRN PO 10/03/17 21:15 10/11/17 17:08 (Flovent Hfa 44 Mcg Inh) 2 puff BID INH 10/04/17 09:00 10/24/17 08:41 (Peridex 0.12% Liq) 15 ml BID@08,20 MT 10/04/17 20:00 10/19/17 08:23 Sodium Chloride 1,000 ml @ 0 mls/hr Q0M PRN OTHER 10/08/17 10:33 10/17/17 14:00 (Heparin Inj) 8,000 units UNSCH PRN IV FLUSH 10/08/17 10:45 Sodium Chloride 1,000 ml @ 200 mls/hr Q5H PRN IV 10/08/17 11:15 10/11/17 08:57 Sodium Chloride 1,000 ml @ 0 mls/hr Q0M PRN OTHER 10/08/17 11:15 (Mannitol Inj) 12.5 gm UNSCH PRN IV 10/08/17 11:15 Albumin Human 100 ml @ 60 mls/hr UNSCH PRN IV 10/08/17 11:30 10/23/17 10:15 (NS Flush) 5 ml UNSCH PRN IV FLUSH 10/08/17 11:15 10/18/17 11:26 (Heparin Inj) UNSCH PRN .XX 10/08/17 11:15 10/23/17 12:14 (Gentamicin Inj) 20 mg UNSCH PRN OTHER 10/08/17 11:15 10/23/17 12:13 (Zofran Inj) 4 mg UNSCH PRN IV PUSH 10/08/17 11:15 (Benadryl) 25 mg UNSCH PRN PO 10/08/17 11:15 (Nitrostat Sl) 0.4 mg UNSCH PRN SL 10/08/17 11:30 (Catapres) 0.1 mg UNSCH PRN PO 10/08/17 11:30 (Epogen Inj) 10,000 units UNSCH PRN IV PUSH 10/08/17 11:30 10/23/17 12:14 (Gelfoam 12 Mm/7 Mm Top) 1 foam UNSCH PRN TOP 10/08/17 11:30 (Lactinex) 1 tab TID PO 10/17/17 13:00 10/24/17 08:39 (Duragesic 100 Mcg Patch.72 Hr) 1 patch Q3D T-DERMAL 10/18/17 12:00 10/24/17 12:32 Miscellaneous Information 1 Q3D T-DERMAL 10/21/17 12:00 10/24/17 12:00 (Lopressor) 50 mg Q8HR PO 10/20/17 14:00 10/24/17 12:31 (Santyl Oint) 1 applic DAILY TOPICAL 10/20/17 16:00 10/24/17 08:40 (Duoneb Neb) 1 ampule Q6HR WHILE AWAKE NEB NEB 10/21/17 14:00 10/24/17 11:26 (Albuterol Neb) 2.5 mg Q2HR NEB PRN NEB 10/21/17 13:30 10/22/17 05:12 (Protonix) 40 mg Q12HR PO 10/21/17 21:00 10/24/17 08:39 ([place] 5-325 Mg) 1 tab Q4H PRN PO 10/21/17 13:45 10/23/17 16:36 (Heparin Inj) 5,000 units Q12HR SQ 10/21/17 21:00 10/24/17 08:40 (Phoslo) 667 mg TID PO 10/23/17 13:00 10/24/17 12:31 Cefazolin Sodium 1000 mg/Sodium Chloride 100 ml @ 200 mls/hr Q12H IV 10/24/17 03:00 10/24/17 02:21 (Haldol Inj) 5 mg Q4H PRN IV PUSH 10/23/17 23:30 10/24/17 04:49 Lines Line sites with no e.o infection Past Medical History Asthma HCV Past Surgical History No surgical history per records. Allergies: Coded Allergies: erythromycin base (Verified Allergy, Severe, Nausea/Vomiting, 10/03/17) raspberry (Unverified Allergy, Mild, 2/9/18) Objective . Vital Signs Date Time Temp Pulse Resp B/P (MAP) Pulse Ox O2 Delivery O2 Flow Rate FiO2 10/30/17 08:00 98.0 103 18 113/68 (83) 94 10/30/17 04:00 106 10/30/17 04:00 97.9 106 18 118/67 (84) 98 10/30/17 00:00 Nasal Cannula 4.00 10/30/17 00:00 109 10/30/17 00:00 98.0 110 18 107/64 (78) 93 10/29/17 20:27 96 Nasal Cannula 3.50 10/29/17 20:00 98.0 105 18 128/63 (84) 95 10/29/17 20:00 103 10/29/17 19:00 95 Nasal Cannula 4.00 10/29/17 18:42 103 10/29/17 18:21 18 10/29/17 16:06 97.4 103 17 114/62 (79) 94 10/30/17 10/30/17 10/31/17 14:59 22:59 06:59 Output Total 1500 ml Balance -1500 ml Hemodialysis 1500 ml . Laboratory Tests Test 10/29/17 05:00 10/30/17 03:53 White Blood Count 17.0 TH/MM3 16.2 TH/MM3 Red Blood Count 2.71 MIL/MM3 2.86 MIL/MM3 Hemoglobin 7.8 GM/DL 8.5 GM/DL Hematocrit 23.3 % 24.6 % Mean Corpuscular Volume 85.9 FL 86.0 FL Mean Corpuscular Hemoglobin 28.6 PG 29.7 PG Mean Corpuscular Hemoglobin Concent 33.3 % 34.5 % Red Cell Distribution Width 19.8 % 20.0 % Platelet Count 125 TH/MM3 125 TH/MM3 Mean Platelet Volume 8.7 FL 8.2 FL CBC Comment AUTO DIFF DIFF FINAL Differential Total Cells Counted 100 Neutrophils % (Manual) 84 % Band Neutrophils % 1 % Lymphocytes % 4 % Monocytes % 11 % Neutrophils # (Manual) 14.5 TH/MM3 Differential Comment FINAL DIFF MANUAL Platelet Estimate LOW Platelet Morphology Comment NORMAL Neutrophils (%) (Auto) 81.8 % Lymphocytes (%) (Auto) 5.7 % Monocytes (%) (Auto) 8.6 % Eosinophils (%) (Auto) 3.3 % Basophils (%) (Auto) 0.6 % Neutrophils # (Auto) 13.3 TH/MM3 Lymphocytes # (Auto) 0.9 TH/MM3 Monocytes # (Auto) 1.4 TH/MM3 Eosinophils # (Auto) 0.5 TH/MM3 Basophils # (Auto) 0.1 TH/MM3 Laboratory Tests Test 10/29/17 05:00 10/30/17 03:33 Blood Urea Nitrogen 37 MG/DL 45 MG/DL Creatinine 5.86 MG/DL 6.53 MG/DL Random Glucose 98 MG/DL 88 MG/DL Calcium Level 8.5 MG/DL 8.2 MG/DL Sodium Level 130 MEQ/L 129 MEQ/L Potassium Level 3.9 MEQ/L 3.8 MEQ/L Chloride Level 93 MEQ/L 91 MEQ/L Carbon Dioxide Level 24.3 MEQ/L 23.9 MEQ/L Anion Gap 13 MEQ/L 14 MEQ/L Estimat Glomerular Filtration Rate 12 ML/MIN 10 ML/MIN Imaging Last Impressions Chest X-Ray 10/16/17 0600 Signed Impressions: Service Date/Time: September 04:06 - CONCLUSION: 1. Cardiomegaly with airspace disease and apparent small effusions most characteristic of congestive heart failure. Jorge Jang MD Chest CT 10/14/17 0000 Signed Impressions: Service Date/Time: Saturday, October 14, 2017 00:26 - CONCLUSION: 1. Bilateral scattered pulmonary nodules are again noted. Several of the right nodules are now cavitary and likely represent septic emboli given the history of IV drug abuse. 2. Interval placement of bilateral chest tubes with small pleural effusions noted. 3. Dense consolidation remains in the posterior lower lobes. Jorge Jang MD Abdomen/Pelvis CT 10/14/17 0000 Signed Impressions: Service Date/Time: Saturday, October 14, 2017 16:39 - CONCLUSION: No new or acute intra-abdominal or pelvic findings. Madi Mccartney MD Upper Extremity Ultrasound 10/13/17 0000 Signed Impressions: Service Date/Time: Friday, October 13, 2017 11:25 - CONCLUSION: Normal examination. Christian Kaur MD Abdomen X-Ray 10/10/17 0000 Signed Impressions: Service Date/Time: Tuesday, October 10, 2017 16:46 - CONCLUSION: Negative for free air or obstruction. Rahul Yarbrough MD FACR Chest Tube Insertion 10/06/17 0000 Signed Impressions: Service Date/Time: Friday, October 06, 2017 15:37 - CONCLUSION: Uncomplicated chest tube placement as above. Emerson Hui MD Physical Exam GENERAL: Awake, and following commands, on nasal O2, in mild resp distress. SKIN: No rashes. Cool and dry. Multiple tattoos. HEAD: Atraumatic. Normocephalic. No temporal or scalp tenderness. EYES: Pupils equal round and reactive. Extraocular motions intact. No petechia, no hemorrhage ENT: Moist oral mucosa, no nasal drainage NECK: Trachea midline. Supple, nontender, no meningeal signs. CARDIOVASCULAR: Has systolic murmur RESPIRATORY: Decreased air entry bilaterally bases. Coarse creps bilaterally. GASTROINTESTINAL: Abdomen soft, not tender, (+) BS, distended. MUSCULOSKELETAL: Extremities without clubbing, cyanosis. Mild pedal edema. No embolic lesion seen. NEUROLOGICAL: Awake, follows commands Psych cooperative IV line sites with no e.o infection. 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 Pneumonia: septic emboli, aspiration pneumonia. Respiratory failure, self extubated 10/17 IVDA: heroin, cocaine and methamphetamine. Acute renal failure: Sepsis, meds,contrast. - on HD Abnormal LFTs: ? Rifampin induced vs volume overload related. Recs: Continue Ancef IV (for MSSA TV endocarditis) Start Cefepime IV (for possible HCAP given increased secretions and pneumonia on clinical exam) Start Zyvox oral (for MRSA HCAP) Stat vitals. Stat CXR (this will be post HD this am) If increased infiltrates will consider CT (chest + abdomen+pelvis) with contrast prior to HD if ok with Nephrology. Concern for increasing septic emboli ? ongoing embolization in view of large size and multiple emboli. Also consider US abdomen if significant ascites consider paracentesis ( diagnostic and therapeutic) may help reduce work of breathing by lowering diaphragm. Follow cultures D/W RN to cover for me 10/31/2017 to 11/02/2017. Lakia Macias MD Oct 30, 2017 14:01
--- NOTE | 2017-10-30 14:54 | PD.PSY.CON ---
Provisional Diagnosis Admission Date Oct 03, 2017 at 18:44 History of Present Illness Service Psychiatry Consult Requested By Anxiety Reason for Consult Anxiety Primary Care Physician No Primary Care Physician Past Family Social History Coded Allergies: erythromycin base (Verified Allergy, Severe, Nausea/Vomiting, 10/03/17) raspberry (Unverified Allergy, Mild, 10/03/17) Active Scripts Methocarbamol (Methocarbamol) 500 Mg Tab, 500 MG PO QID, #28 1 Refill Prov:ARIADNE RUVALCABA M.D. R3 06/20/11 Naproxen (Naproxen) 500 Mg Tab, 500 MG PO BID, #20 0 Refills Prov:ARIADNE RUVALCABA M.D. R3 05/23/11 Fluticasone Propionate (Flovent Hfa) 44 Mcg Aero, 2 PUFF INH BID, #1 2 Refills Prov:ARIADNE RUVALCABA M.D. R3 05/23/11 Fexofenadine-Pseudoephedrine (Kelsie-D 24 Hour Allergy) 24 Hour Tab, 24 HOUR OR DAILY, #30 0 Refills Prov:ARIADNE RUVALCABA M.D. R3 05/23/11 Amoxicillin/Clavulanate K (Augmentin) 875 Mg Tab, 875 MG PO BID, #60 0 Refills Prov:ARIADNE RUVALCABA M.D. R3 05/23/11 Reported Medications Albuterol Sulfate (Proventil Mdi) 17 Gm Aero 11/15/07 Current Medications Medications (Trade) Dose Ordered Sig/Willem Route Start Time Stop Time Status Last Admin (NS Flush) 2 ml UNSCH PRN IV FLUSH 10/03/17 21:15 10/15/17 20:58 (NS Flush) 2 ml BID IV FLUSH 10/04/17 09:00 10/29/17 20:54 (Zofran Inj) 4 mg Q6H PRN IV PUSH 10/03/17 21:15 10/23/17 16:35 (Restoril) 15 mg HS PRN PO 10/03/17 21:15 10/27/17 20:29 Miscellaneous Information 1 Q361D XX 10/03/17 21:15 (Chlorhexidine 2% Cloth) Taper DAILY@04 TOP 10/04/17 04:00 09/30/18 03:59 10/26/17 21:40 (Chlorhexidine 2% Cloth) 3 pack UNSCH PRN TOP 10/03/17 21:15 (Renita-Colace) 1 tab BID PO 10/04/17 09:00 10/29/17 08:37 (Senokot) 17.2 mg Q12H PRN PO 10/03/17 21:15 (Dulcolax Supp) 10 mg DAILY PRN RECTAL 10/03/17 21:15 10/11/17 17:08 (Lactulose Liq) 30 ml DAILY PRN PO 10/03/17 21:15 10/11/17 17:08 (Flovent Hfa 44 Mcg Inh) 2 puff BID INH 10/04/17 09:00 10/30/17 10:25 (Peridex 0.12% Liq) 15 ml BID@08,20 MT 10/04/17 20:00 10/28/17 08:00 Sodium Chloride 1,000 ml @ 0 mls/hr Q0M PRN OTHER 10/08/17 10:33 10/25/17 10:39 (Heparin Inj) 8,000 units UNSCH PRN IV FLUSH 10/08/17 10:45 Sodium Chloride 1,000 ml @ 200 mls/hr Q5H PRN IV 10/08/17 11:15 10/11/17 08:57 Sodium Chloride 1,000 ml @ 0 mls/hr Q0M PRN OTHER 10/08/17 11:15 (Mannitol Inj) 12.5 gm UNSCH PRN IV 10/08/17 11:15 Albumin Human 100 ml @ 60 mls/hr UNSCH PRN IV 10/08/17 11:30 10/30/17 12:07 (NS Flush) 5 ml UNSCH PRN IV FLUSH 10/08/17 11:15 10/25/17 10:40 (Heparin Inj) UNSCH PRN .XX 10/08/17 11:15 10/30/17 12:06 (Gentamicin Inj) 20 mg UNSCH PRN OTHER 10/08/17 11:15 10/30/17 12:06 (Zofran Inj) 4 mg UNSCH PRN IV PUSH 10/08/17 11:15 (Benadryl) 25 mg UNSCH PRN PO 10/08/17 11:15 (Nitrostat Sl) 0.4 mg UNSCH PRN SL 10/08/17 11:30 (Catapres) 0.1 mg UNSCH PRN PO 10/08/17 11:30 (Epogen Inj) 10,000 units UNSCH PRN IV PUSH 10/08/17 11:30 10/30/17 12:06 (Gelfoam 12 Mm/7 Mm Top) 1 foam UNSCH PRN TOP 10/08/17 11:30 (Lactinex) 1 tab TID PO 10/17/17 13:00 10/30/17 13:21 (Duragesic 100 Mcg Patch.72 Hr) 1 patch Q3D T-DERMAL 10/18/17 12:00 10/30/17 13:22 Miscellaneous Information 1 Q3D T-DERMAL 10/21/17 12:00 10/30/17 12:00 (Santyl Oint) 1 applic DAILY TOPICAL 10/20/17 16:00 10/29/17 08:38 (Albuterol Neb) 2.5 mg Q2HR NEB PRN NEB 10/21/17 13:30 10/30/17 13:37 (Protonix) 40 mg Q12HR PO 10/21/17 21:00 10/29/17 20:53 ([place] 5-325 Mg) 1 tab Q4H PRN PO 10/21/17 13:45 10/26/17 15:07 (Heparin Inj) 5,000 units Q12HR SQ 10/21/17 21:00 10/29/17 20:53 (Phoslo) 667 mg TID PO 10/23/17 13:00 10/30/17 13:21 Cefazolin Sodium 1000 mg/Sodium Chloride 100 ml @ 200 mls/hr Q12H IV 10/24/17 03:00 10/30/17 13:23 (Haldol Inj) 5 mg Q4H PRN IV PUSH 10/23/17 23:30 10/26/17 23:39 (Lopressor) 25 mg Q8HR PO 10/25/17 22:00 10/30/17 13:21 (Sodium Chloride) 1 gm DAILY PO 10/26/17 09:00 10/29/17 08:37 (Ferrous Sulfate) 325 mg BID@12,17 PO 10/27/17 12:00 10/30/17 13:21 (Morphine Inj) 2 mg Q4H PRN IV PUSH 10/29/17 12:45 10/30/17 05:49 Cefepime HCl 2000 mg/Sodium Chloride 100 ml @ 200 mls/hr Q48H IV 10/30/17 14:00 UNV (Zyvox) 600 mg Q12HR PO 10/30/17 14:00 UNV Physical Exam Vital Signs Vital Signs Date Time Temp Pulse Resp B/P (MAP) Pulse Ox O2 Delivery O2 Flow Rate FiO2 10/30/17 13:55 113 110/56 (74) 100 10/30/17 08:00 97.3 18 10/30/17 00:00 Nasal Cannula 4.00 I/O 10/30/17 10/30/17 10/31/17 08:00 16:00 00:00 Intake Total 340 ml Output Total 0 ml 1500 ml Balance 340 ml -1500 ml Lab Results Test 10/30/17 03:33 10/30/17 03:53 Blood Urea Nitrogen 45 MG/DL Creatinine 6.53 MG/DL Random Glucose 88 MG/DL Calcium Level 8.2 MG/DL Sodium Level 129 MEQ/L Potassium Level 3.8 MEQ/L Chloride Level 91 MEQ/L Carbon Dioxide Level 23.9 MEQ/L Anion Gap 14 MEQ/L Estimat Glomerular Filtration Rate 10 ML/MIN White Blood Count 16.2 TH/MM3 Red Blood Count 2.86 MIL/MM3 Hemoglobin 8.5 GM/DL Hematocrit 24.6 % Mean Corpuscular Volume 86.0 FL Mean Corpuscular Hemoglobin 29.7 PG Mean Corpuscular Hemoglobin Concent 34.5 % Red Cell Distribution Width 20.0 % Platelet Count 125 TH/MM3 Mean Platelet Volume 8.2 FL Neutrophils (%) (Auto) 81.8 % Lymphocytes (%) (Auto) 5.7 % Monocytes (%) (Auto) 8.6 % Eosinophils (%) (Auto) 3.3 % Basophils (%) (Auto) 0.6 % Neutrophils # (Auto) 13.3 TH/MM3 Lymphocytes # (Auto) 0.9 TH/MM3 Monocytes # (Auto) 1.4 TH/MM3 Eosinophils # (Auto) 0.5 TH/MM3 Basophils # (Auto) 0.1 TH/MM3 CBC Comment DIFF FINAL Differential Comment Date/Time Source Procedure Growth Status 10/18/17 15:40 Blood Peripheral Aerobic Blood Culture - Final NO GROWTH IN 5 DAYS Complete 10/18/17 15:40 Blood Peripheral Anaerobic Blood Culture - Final NO GROWTH IN 5 DAYS Complete 10/09/17 12:00 Fluid Pleural Fluid Fungal Smear - Final NO FUNGAL ELEMENTS SEEN. Resulted 10/09/17 12:00 Fluid Pleural Fluid Fungal Culture - Preliminary NO GROWTH IN 3 WEEKS Resulted 10/16/17 12:55 Sputum Endotracheal Gram Stain - Final Complete 10/16/17 12:55 Sputum Endotracheal Sputum Culture - Final RARE GROWTH NORMAL RESPIRATORY RHIANNON Complete 10/03/17 21:30 Urine Random Urine Legionella Antigen - Final PRESUMPTIVE NEGATIVE FOR LEGIONELLA P... Complete 10/03/17 21:30 Urine Random Urine Streptococcus pneumoniae Antigen (M - Final PRESUMPTIVE NEGATIVE FOR STREPTOCOCCU... Complete Assessment & Plan Problem List: (1) Sepsis ICD Codes: A41.9 - Sepsis, unspecified organism Status: Acute Assessment & Plan: I visited this patient this morning at about 11 AM, came back 2 hours later, to perform a psychiatric evaluation, the patient was not present. I will return tomorrow morning. Assessment & Plan Estimated LOS: days Problem Qualifiers (1) Sepsis: Qualified Codes: A41.9 - Sepsis, unspecified organism Timothy Graves MD Oct 30, 2017 14:54
--- NOTE | 2017-10-30 15:06 | HHI.PR ---
Subjective Remarks Pt very emotional and tearful, states to me "I wish someone would give me something to make me sleep so I don't ever wake up". Pt states breathing is OK. Not worsening. No nausea or vomiting. Pt later tells me "tell the lady (referring to palliative care) I made my decision, i decided to stay" Objective Vitals Vital Signs Date Time Temp Pulse Resp B/P (MAP) Pulse Ox O2 Delivery O2 Flow Rate FiO2 10/30/17 13:55 113 110/56 (74) 100 10/30/17 08:00 97.3 105 18 126/88 (101) 97 10/30/17 08:00 98.0 103 18 113/68 (83) 94 10/30/17 04:00 106 10/30/17 04:00 97.9 106 18 118/67 (84) 98 10/30/17 00:00 Nasal Cannula 4.00 10/30/17 00:00 109 10/30/17 00:00 98.0 110 18 107/64 (78) 93 10/29/17 20:27 96 Nasal Cannula 3.50 10/29/17 20:00 98.0 105 18 128/63 (84) 95 10/29/17 20:00 103 10/29/17 19:00 95 Nasal Cannula 4.00 10/29/17 18:42 103 10/29/17 18:21 18 10/29/17 16:06 97.4 103 17 114/62 (79) 94 I/O 10/29/17 10/29/17 10/29/17 10/30/17 10/30/17 10/30/17 07:00 15:00 23:00 07:00 15:00 23:00 Intake Total 340 ml 700 ml 340 ml Output Total 450 ml 200 ml 0 ml 1500 ml Balance -110 ml 500 ml 340 ml -1500 ml Intake Oral 240 ml 600 ml 240 ml IV Total 100 ml 100 ml 100 ml Output Urine Total 450 ml 200 ml 0 ml Hemodialysis 1500 ml # Bowel Movements 1 0 Result Diagram: 10/30/17 0353 10/30/17 0333 Imaging Last Impressions Chest X-Ray 10/26/17 0600 Signed Impressions: Service Date/Time: Thursday, October 26, 2017 03:32 - CONCLUSION: Stable bilateral patchy infiltrates. Mat Alejandra MD Liver Ultrasound 10/24/17 0000 Signed Impressions: Service Date/Time: Tuesday, October 24, 2017 16:43 - CONCLUSION: Hepatosplenomegaly with ascites. Echogenic kidney Madi Mccartney MD Abdomen/Pelvis CT 10/24/17 0000 Signed Impressions: Service Date/Time: Tuesday, October 24, 2017 21:37 - CONCLUSION: 1. Hepatosplenomegaly. 2. Moderate amount of ascites. 3. Diffuse anasarca. 4. Bibasilar pleural effusions and scattered infiltrates. Khoi Padilla MD Tunnelled Chest Tube Removal 10/20/17 0000 Signed Impressions: Service Date/Time: Friday, October 20, 2017 00:00 - CONCLUSION: Uncomplicated chest tube removal. Madi Mccartney MD Chest CT 10/14/17 0000 Signed Impressions: Service Date/Time: Saturday, October 14, 2017 00:26 - CONCLUSION: 1. Bilateral scattered pulmonary nodules are again noted. Several of the right nodules are now cavitary and likely represent septic emboli given the history of IV drug abuse. 2. Interval placement of bilateral chest tubes with small pleural effusions noted. 3. Dense consolidation remains in the posterior lower lobes. Jorge Jang MD Upper Extremity Ultrasound 10/13/17 0000 Signed Impressions: Service Date/Time: Friday, October 13, 2017 11:25 - CONCLUSION: Normal examination. Christian Kaur MD Abdomen X-Ray 10/10/17 0000 Signed Impressions: Service Date/Time: Tuesday, October 10, 2017 16:46 - CONCLUSION: Negative for free air or obstruction. Rahul Yarbrough MD FACR Chest Tube Insertion 10/06/17 0000 Signed Impressions: Service Date/Time: Friday, October 06, 2017 15:37 - CONCLUSION: Uncomplicated chest tube placement as above. Emerson Hui MD Objective Remarks GENERAL: sitting on bedside commode, tearful SKIN: tattoos noted NECK: Supple, trachea midline. CARDIOVASCULAR: 2 out of 6 systolic murmur at the left sternal border. RESPIRATORY: Air entry is equal bilaterally, coarse rhonchi and faint crackles at bases. GASTROINTESTINAL: Abdomen soft, non-tender, nondistended. MUSCULOSKELETAL: Positive anasarca NEURO EXAM: Alert awake oriented, Moving all extremities follows commands no focal deficit PSYCH: tearful, frustrated, and appears mad at times A/P Assessment and Plan IVDU switched morhine 2mg q4hr to dilaudid 0.5 IV q6hrs prn breakthrough. Added norco 10/325 po q6hrs prn pain 6-10 instead of morphine Continue Fentanyl patch 75 mcg every 72 hours. Taper as tolerated. Palliative care following. Dr. Barry attempted to evaluate to pt on two different occasions but pt wasn't in room. Appreciate recs regarding pain regimen. Acute hypoxemic respiratory failure, improved Extensive septic emboli, consolidation of the lung Loculated left effusion, large right effusion - Extubated 10/17 (Self extubated while on CPAP for planned extubation) - IR placed left chest tube 10/06 with more than 1 L exudative fluid out. Removed 10/20 - Dr. Barraza placed right-sided pigtail chest tube at the bedside 10/09, brown tinged fluid approximately 1.1 L initial output, now output is minimum - Removed right chest tube 10/18/17. - Broad-spectrum antibiotics per ID, see below - Nasal cannula to maintain saturations greater than equal to 92% - Incentive spirometry while awake/Albuterol/ipratropium aerosols every 6 hours while awake with albuterol aerosols every 2 hours. Dyspnea/ EzPAP every 6 hours since 10/17 - Fluticasone 44 mcg inhalation twice daily Large tricuspid valve vegetation Small pericardial effusion Acute systolic heart failure Mild pulmonary hypertension - Bedside echo shows large tricuspid vegetation. repeat bedside echo today 10/18 similar size - Cardiology and CT surgery has followed. D/W Dr. Charles declined surgery due to active IV drug use, multiple medical complications. Discussed with [facility] who agreed with plan of our cardiothoracic surgeon. No transfer at this time. Apparently [facility] hasn't accepted the transfer per CM - CARMEN 10/04: EF 45-50 %. Large mobile vegetation on tricuspid valve, 2 separate vegetations 2.1 x 3.2 cm and 2.6 x 0.8 cm. PIP 40.7 mmHg -Echo 10/20 -EF 35-40%. Tricuspid valve vegetation Currently on metoprolol tartrate 25 mg p.o. every 8 hours Hepatosplenomegaly Diarrhea Hypoalbuminemia Hepatitis C genotype 1A Elevated ceruloplasmin MARTÍN + diffuse Elevated total bilirubin Elevated AST -Pantoprazole 40 mg p.o. twice daily due to persistent anemia. GI has followed currently signed off - Hepatitis C reactive. Genotype 1a Viral load 10,700 -Renal diet -Docusate sodium/senna 1 tablet twice daily for bowel regimen Hepatic ultrasound revealed hepatosplenomegaly.. CT abdomen/pelvis 10/24 revealed no obvious hepatic, pancreatic, nephrotic versus musculoskeletal source. Hepatosplenomegaly. Moderate ascites. Anasarca. CPK and troponin normal. Discontinue nephrotoxic drugs including rifampin and acetaminophen Repeat liver function tests in a.m. 10/26 Acute kidney failure with fluid overload - on hemodialysis 10/08,above. - Continue intermittent HD for fluid removal. -2 L today 10/25 - Strict I's and O's, Monitor trend of creatinine - Replace electrolytes as clinically indicated - 10/14-removed vas catheter. Replaced on 10/16 Tricuspid and pulmonic valve endocarditis Septic emboli to the lung Severe sepsis MSSA bacteremia - Discussed with Dr. Charles CT surgery 10/05/17, 10/19, deemed not a surgical candidate - Cefazolin per ID Dr. Macias. 10/22 discontinued vancomycin 125 mg 4 times daily. 3/to discontinue rifampin due to elevated AST. Dr. Macias added today zyvox and cefepime IV - Persistent MSSA bacteremia 10/04, 10/05 10/07 blood cultures, cultures reviewed. Blood cultures from 10/13 negative, fever trending down now Anemia requiring transfusion Leukocytosis Normocytic anemia - Transfuse PRBC to keep Hb>7.0 - LDH mildly elevated and haptoglobin normal, Transfusion 1u PRBC on 10/14, 10/17 and 10/23 and 10/25 - Monitor CBC, Coags - Thrombocytopenia most likely from sepsis and DIC has resolved -Epogen 10,000 units as needed with hemodialysis PT following Hyponatremia Replace electrolytes as clinically indicated Hyponatremia workup ordered. See orders Discharge Planning Pt has no payor source. Pt currently on HD. ID following. f/u chest x-ray Pt very emotional, tearful then angry at times. Psych attempted to evaluate the pt but pt wasn't in room. They will evaluate tomorrow. Gia Yu MD Oct 30, 2017 15:06
--- NOTE | 2017-10-30 15:07 | HHI.HCPN ---
Reason for visit a. To assist with evaluation and management of symptoms including: Debility.Debility. b. To assist medical decision maker(s) with: better understanding of current medical conditions; weighing benefits/burdens of medical treatment options; making medical treatment decisions. . Subjective/Interval History Primary care follow-up for further clarifications of goals of care, emotional support. Patient seen in his room. Sitting up at the edge of the bed, father at bedside. Patient anxious, restless. Endorses significant pain to abdomen and back, currently rated at 5/10. Worsen with any movement, alleviated with breakthrough pain medication. Also endorsing shortness of breath with minimal exertion, feeling tired all the time. Febrile, tachycardic with heart rate in the low 110s. Currently on nasal cannula at 4 L, oxygen saturation the mid 90s. Laboratory workup revealing persistence leukocytosis 16.2, Hgb stable at 8.5. BUN/creatinine 45/6.53. Underwent dialysis today, 1.5 L removed. Patient with emotional lability. Started crying when I asked how he was feeling. Endorsing feeling "miserable", requesting to go home to "let me ". Patient verbalized "I know that I am dying, why is everybody lying to me, just tell me the truth". Asked patient why he was feeling this way, he responded "because I know the truth". Patient agitated, threatening to leave AMA. Discussed with patient that given his higher level of needs, it is not reasonable to just leave without arrangements. Discussed that he is dialysis dependent and outpatient dialysis will need to be arranged. Patient requesting to go home with hospice. Reviewed that with hospice, hemodialysis would have to be discontinue, which would cause his in a matter of a few days. Patient verbalizing "I don't care". Spoke with patient's parents Mely and Mendoza. They both report being elderly , sick and unable to care for patient at home. Both parents are wishing for aggressive management. Reviewed with parents that psychiatry consultation is still pending. Mother receptive to palliative care follow-ups for medical updates and emotional support. Case discussed with Dr. Carlyle Macias and Dr. Yu. . Family/friend interactions See interval note. . Advance Directives Living Will: Never completed Health Care Surrogate: Never completed Durable Power of Ehs Manager: Never completed Advance Directive Specifics Health Care Surrogate(s): No advance directives completed. Patient is single, no children. As per [place] statue, healthcare proxy decision making foals to patient's parents. . Significant change in goals: Aggressive management. . Objective Vital Signs Date Time Temp Pulse Resp B/P (MAP) Pulse Ox O2 Delivery O2 Flow Rate FiO2 10/30/17 13:55 113 110/56 (74) 100 10/30/17 08:00 97.3 105 18 126/88 (101) 97 10/30/17 08:00 98.0 103 18 113/68 (83) 94 10/30/17 04:00 106 10/30/17 04:00 97.9 106 18 118/67 (84) 98 10/30/17 00:00 Nasal Cannula 4.00 10/30/17 00:00 109 10/30/17 00:00 98.0 110 18 107/64 (78) 93 10/29/17 20:27 96 Nasal Cannula 3.50 10/29/17 20:00 98.0 105 18 128/63 (84) 95 10/29/17 20:00 103 10/29/17 19:00 95 Nasal Cannula 4.00 10/29/17 18:42 103 10/29/17 18:21 18 10/29/17 16:06 97.4 103 17 114/62 (79) 94 Intake & Output 10/30/17 10/30/17 07:00 19:00 Intake Total 340 ml Output Total 0 ml 1500 ml Balance 340 ml -1500 ml Intake Oral 240 ml IV Total 100 ml Output Urine Total 0 ml Hemodialysis 1500 ml # Bowel Movements 0 Physical Exam CONSTITUTIONAL/GENERAL: This is an adequately nourished young patient in bed in moderate distress. Restless during my visit. TUBES/LINES/DRAINS: Nasal cannula, Vas-Cath, PIV. SKIN: No jaundice, rashes, or lesions. No wounds seen anteriorly. Skin temperature appropriate. Not diaphoretic. Large areas of tattoos from head to toe, multiple body piercings. HEAD: Atraumatic. Normocephalic. EYES: Pupils equal and round and reactive. Extraocular motions intact. No scleral icterus. No injection or drainage. ENT: Hearing grossly normal. Nose without bleeding or purulent drainage. Moist oral mucosa. NECK: Trachea midline. Supple, nontender. CARDIOVASCULAR: Regular rate and rhythm. No JVD. Peripheral pulses symmetric. RESPIRATORY/CHEST: Symmetric, unlabored respirations. Clear, diminished to auscultation. Breath sounds equal bilaterally. GASTROINTESTINAL: Abdomen large, round, tender. Bowel sounds present. GENITOURINARY: Without palpable bladder distension. MUSCULOSKELETAL: Extremities without clubbing, cyanosis. No mottling or clubbing. Trace edema to bilateral lower extremities. NEUROLOGICAL: Awake and alert x self, place and situation. Forgetful at times. Follows commands. Moves all extremities. PSYCHIATRIC: Tearful, anxious. Labile. . Diagnostic Tests Laboratory Laboratory Tests Test 10/28/17 05:11 10/29/17 05:00 10/30/17 03:33 10/30/17 03:53 White Blood Count 17.0 TH/MM3 (4.0-11.0) 17.0 TH/MM3 (4.0-11.0) 16.2 TH/MM3 (4.0-11.0) Red Blood Count 2.78 MIL/MM3 (4.50-5.90) 2.71 MIL/MM3 (4.50-5.90) 2.86 MIL/MM3 (4.50-5.90) Hemoglobin 8.0 GM/DL (13.0-17.0) 7.8 GM/DL (13.0-17.0) 8.5 GM/DL (13.0-17.0) Hematocrit 23.9 % (39.0-51.0) 23.3 % (39.0-51.0) 24.6 % (39.0-51.0) Mean Corpuscular Volume 85.9 FL (80.0-100.0) 85.9 FL (80.0-100.0) 86.0 FL (80.0-100.0) Mean Corpuscular Hemoglobin 28.7 PG (27.0-34.0) 28.6 PG (27.0-34.0) 29.7 PG (27.0-34.0) Mean Corpuscular Hemoglobin Concent 33.4 % (32.0-36.0) 33.3 % (32.0-36.0) 34.5 % (32.0-36.0) Red Cell Distribution Width 19.5 % (11.6-17.2) 19.8 % (11.6-17.2) 20.0 % (11.6-17.2) Platelet Count 114 TH/MM3 (150-450) 125 TH/MM3 (150-450) 125 TH/MM3 (150-450) Mean Platelet Volume 8.8 FL (7.0-11.0) 8.7 FL (7.0-11.0) 8.2 FL (7.0-11.0) Neutrophils (%) (Auto) 85.6 % (16.0-70.0) 81.8 % (16.0-70.0) Lymphocytes (%) (Auto) 4.3 % (9.0-44.0) 5.7 % (9.0-44.0) Monocytes (%) (Auto) 7.9 % (0.0-8.0) 8.6 % (0.0-8.0) Eosinophils (%) (Auto) 1.7 % (0.0-4.0) 3.3 % (0.0-4.0) Basophils (%) (Auto) 0.5 % (0.0-2.0) 0.6 % (0.0-2.0) Neutrophils # (Auto) 14.5 TH/MM3 (1.8-7.7) 13.3 TH/MM3 (1.8-7.7) Lymphocytes # (Auto) 0.7 TH/MM3 (1.0-4.8) 0.9 TH/MM3 (1.0-4.8) Monocytes # (Auto) 1.3 TH/MM3 (0-0.9) 1.4 TH/MM3 (0-0.9) Eosinophils # (Auto) 0.3 TH/MM3 (0-0.4) 0.5 TH/MM3 (0-0.4) Basophils # (Auto) 0.1 TH/MM3 (0-0.2) 0.1 TH/MM3 (0-0.2) CBC Comment AUTO DIFF AUTO DIFF DIFF FINAL Differential Comment AUTO DIFF CONFIRMED FINAL DIFF MANUAL Platelet Estimate LOW (NORMAL) LOW (NORMAL) Platelet Morphology Comment NORMAL (NORMAL) NORMAL (NORMAL) Blood Urea Nitrogen 59 MG/DL (7-18) 37 MG/DL (7-18) 45 MG/DL (7-18) Creatinine 7.13 MG/DL (0.60-1.30) 5.86 MG/DL (0.60-1.30) 6.53 MG/DL (0.60-1.30) Random Glucose 87 MG/DL (74-106) 98 MG/DL (74-106) 88 MG/DL (74-106) Calcium Level 8.8 MG/DL (8.5-10.1) 8.5 MG/DL (8.5-10.1) 8.2 MG/DL (8.5-10.1) Sodium Level 126 MEQ/L (136-145) 130 MEQ/L (136-145) 129 MEQ/L (136-145) Potassium Level 4.0 MEQ/L (3.5-5.1) 3.9 MEQ/L (3.5-5.1) 3.8 MEQ/L (3.5-5.1) Chloride Level 89 MEQ/L (98-107) 93 MEQ/L (98-107) 91 MEQ/L (98-107) Carbon Dioxide Level 22.5 MEQ/L (21.0-32.0) 24.3 MEQ/L (21.0-32.0) 23.9 MEQ/L (21.0-32.0) Anion Gap 15 MEQ/L (5-15) 13 MEQ/L (5-15) 14 MEQ/L (5-15) Estimat Glomerular Filtration Rate 9 ML/MIN (>89) 12 ML/MIN (>89) 10 ML/MIN (>89) Differential Total Cells Counted 100 Neutrophils % (Manual) 84 % (16-70) Band Neutrophils % 1 % (0-6) Lymphocytes % 4 % (9-44) Monocytes % 11 % (0-8) Neutrophils # (Manual) 14.5 TH/MM3 (1.8-7.7) Result Diagram: 10/30/17 0353 10/30/17 0333 Procedures * 10/04/17 -endotracheal intubation * 10/08/17 -Vas-Cath placement * 10/09/17 -right pigtail chest tube * 10/17/17 -self extubated * 10/18/17 -chest tube discontinued . Assessment and Plan Disease Oriented Problem List: (1) Septic embolism (2) Tricuspid valve vegetation (3) MSSA bacteremia (4) Acute systolic heart failure (5) Hepatosplenomegaly (6) Hepatitis C (7) Anemia (8) ZEUS (acute kidney injury) (9) IV drug abuse Symptom Scale: (1) Depression 0-10 Scale: Unable to quantify (2) Debility 0-10 Scale: Unable to quantify (3) Pain 0-10 Scale: 5 Pertinent Non-Medical Issues Psychosocial: Patient originally from [facility]. Single, no children. Residing with both parents. 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 Patient is the only child. He reports being engaged to girlfriend Tamy. No service. Spiritual: [employer]. Legal: No advance directives completed Ethical issues impacting care: No ethical issues identified. . Important Contacts Mother Mely , alternate number for sister Venus. Father Mendoza . . Prognosis Mr. New is a 27-year-old male with a significant history of polysubstance drug abuse and asthma. Patient presented to the emergency room on 10/03/17 endorsing flulike symptoms. He was admitted for sepsis, pneumonia. ETT later revealing large tricuspid mobile vegetation. Clinical course complicated by extensive septic emboli, respiratory failure, acute kidney injury requiring hemodialysis. Cardiothoracic surgery at [place] in at [facility] again maría consulted. Patient not a surgical candidate given multiple medical complications. Overall prognosis is guarded, patient at high risk for ongoing septic emboli, further complications, continue decline and . . Code Status: Full Code Plan * CODE STATUS: Full code. * HEALTHCARE DECISION-MAKING: Patient participating a medical decision making. Fair insight into his complicated medical issues. However, pending psychiatry consultation. No advance directives completed. As per [place] statute, healthcare proxy decision making folds to patient's parents Mely and Mendoza New. Patient was offered assistance with completion of advance directives , he declined. He verbalized being okay with both of his parents making medical decisions on his behalf. * GOALS OF CARE: Aggressive goals of care by default, both parents supportive of aggressive management. Patient with significant emotional lability during my visit. Patient crying, agitated, threatening to leave AMA. Requesting to go home "to ". Both parents report that they are unable to care for patient at home given higher level of needs. Pending psychiatry evaluation for decision -making capacity and recommendations on anxiety, depression. * SYMPTOMS: * =Depression: Patient reports significant anxiety and depression since childhood. No psychiatric or psychological treatment reported. Significant history of multi-substance drug abuse which started at age 10. Patient tearful, verbalizing " I did this to myself". Patient endorsing strong feelings of sadness, difficulty coping with overall medical condition and prolonged hospitalization. Patient's mother with significant history of bipolar disorder. Pending psychiatry evaluation. * = Debility: Secondary to acute illness, multiple medical complications and prolonged hospitalization. PT OT following. * = Pain: Management deferred to attending given significant history of polysubstance IV drug abuse. Dr. Fischer consulted for recommendations. * Case discussed in great detail with Dr. Yu and Dr. Carlyle Macias. * Palliative care contact information has been provided to patient and family. * Palliative care will continue to follow up for further clarification of goals , emotional support as patient's clinical course continues to evolve. . Time Spent Total Floor Time (mins): 41 (Total time to include review of medical records, physical exam, goals of care conversation with patient and both parents, case discussion with attending and ID.) >50% Counseling/Coord of Care: Yes Attestation To help prompt me to consider important information that might be impacting today's encounter and assessment, information from prior notes written by myself or my colleagues may have been "brought forward" into today's note. My signature on this note, however, is an attestation that I personally performed the exam, history, and/or decision-making noted today, and, unless otherwise indicated, the interactions with patient, family, and staff as well as the review of records all occurred today. I also attest that the listed assessment and stated plan reflect my best clinical judgment today based on the combination of historical information, prior notes, and today's exam/ interactions. When time spent is documented, it refers only to time spent today by the signer, or if indicated, combined time spent today by collaborating physician/nurse practitioner. Autumn Goins Oct 30, 2017 15:07
[2017-10-30] MEDS ORDERED: ACETAMINOPHEN/HYDROcodone 325 MG/10 MG TAB PO PRN (15:15)
[2017-10-30] MEDS ORDERED: HYDROmorphone HCL PF 2 MG/ML VIAL IV PUSH PRN (15:16)
[2017-10-30] MEDS: LINEZOLID 600 MG TAB PO SCH ×2 (16:13→23:41)
[2017-10-30] MEDS: CEFEPIME INJ 2,000 MG in SODIUM CHLORIDE 0.9% INJ 100 ML IV SCH (17:32)
--- NOTE | 2017-10-30 17:37 | RADRPT ---
EXAM DATE/TIME: 10/30/2017 17:04 [facility] COMPARISON: CHEST SINGLE AP, October 26, 2017, 3:32. INDICATIONS : Pneumonia. MEDICAL HISTORY : Sepsis. SURGICAL HISTORY : None. ENCOUNTER: Subsequent ACUITY: 1 day PAIN SCORE: Non-responsive. LOCATION: Bilateral chest FINDINGS: There are patchy bilateral pulmonary infiltrates which appear to be increased compared to the prior s tudy. The heart size is mildly enlarged but stable. There is no pneumothorax. There is a right-sided central line in place. CONCLUSION: Increasing bilateral scattered pulmonary infiltrates compared to the prior study. Victorino Vang MD on October 30, 2017 at 17:35 Board Certified Radiologist. This report was verified electronically.
--- NOTE | 2017-10-30 19:48 | PD.CONS ---
History of Present Illness Service Inpatient Pain management Consult Requested By Dr. Martinez Reason for Consult patient with IVDA and infective endocarditis, please make recommendations regarding pain management in opiate dependence. Primary Care Physician No Primary Care Physician Diagnoses: History of Present Illness This is a 27yM with history of IVDA and infective endocarditis whose course has been complicated by acute renal failure requiring renal replacement therapy. Dr. Martinez asked me to consult to assist with managing the patient's inpatient pain needs as well as chronic opiate dependence. When I evaluated the patient, he was significantly somnolent and fell asleep multiple times during my interview. He states he first got addicted to pain pills for a "slipped disc" in his back, which then led to a methamphetamine addiction, and then a heroin addiction. He states currently his pain is poorly controlled on this current regimen. He says his pain is a 10/10. He locates the pain in his hips, his sacrum, his lower back. He states he has a pressure ulcer and this hurts as well. He states that none of the pain medicine we have given him helps. ROS is otherwise negative. His current pain regimen includes: [place] 5-10/325mg po q4h prn fentanyl patch 100 mcg/hr patch q72h hydromorphone 0.5mg iv q6h prn breakthrough pain Review of Systems ROS Limitations: Clinical Condition, Altered Mental Status, Poor Historian Except as stated in HPI: all other systems reviewed are Neg Past Family Social History Allergies: Coded Allergies: erythromycin base (Verified Allergy, Severe, Nausea/Vomiting, 10/03/17) raspberry (Unverified Allergy, Mild, 10/03/17) Past Medical History Asthma Past Surgical History No surgical history Reported Medications Methocarbamol 500 Mg Tab 500 Mg PO QID Naproxen 500 Mg Tab 500 Mg PO BID Flovent Hfa (Fluticasone Propionate) 44 Mcg Aero 2 Puff INH BID Kelsie-D 24 Hour Allergy (Fexofenadine-Pseudoephedrine) 24 Hour Tab 24 Hour OR DAILY Augmentin (Amoxicillin/Clavulanate Potassium) 875 Mg Tab 875 Mg PO BID Proventil Mdi (Albuterol Sulfate) 17 Gm Aero Active Ordered Medications See MAR Family History reviewed and found to be noncontributory to his acute illness. Social History + methamphetamine use, +heroin use. Physical Exam Vital Signs Vital Signs Date Time Temp Pulse Resp B/P (MAP) Pulse Ox O2 Delivery O2 Flow Rate FiO2 10/30/17 17:28 18 10/30/17 16:00 99.0 109 20 113/67 (82) 93 10/30/17 15:54 18 10/30/17 13:55 113 110/56 (74) 100 10/30/17 08:00 97.3 105 18 126/88 (101) 97 10/30/17 08:00 98.0 103 18 113/68 (83) 94 10/30/17 04:00 106 10/30/17 04:00 97.9 106 18 118/67 (84) 98 10/30/17 00:00 Nasal Cannula 4.00 10/30/17 00:00 109 10/30/17 00:00 98.0 110 18 107/64 (78) 93 10/29/17 20:27 96 Nasal Cannula 3.50 10/29/17 20:00 98.0 105 18 128/63 (84) 95 10/29/17 20:00 103 Physical Exam gen: young male, lying in bed, somnolent on my exam, falling asleep during interview. tearful at times. heent: pupils 2mm, miotic, reactive. mucous membranes moist. neck: right IJ dialysis catheter in place with site which is clean and dry, dressing intact. no jvd. chest: unlabored. nc o2. equal chest rise. cv: normal rate, regular rhythm. abd: soft, nontender, nondistended. no guarding. extr: distal pulses 2+. no peripheral edema. warm and well perfused. neuro: RASS -1. falls asleep during exam. moves all extremities. follows commands. Laboratory Laboratory Tests Test 10/30/17 03:33 10/30/17 03:53 Blood Urea Nitrogen 45 Creatinine 6.53 Random Glucose 88 Calcium Level 8.2 Sodium Level 129 Potassium Level 3.8 Chloride Level 91 Carbon Dioxide Level 23.9 Anion Gap 14 Estimat Glomerular Filtration Rate 10 White Blood Count 16.2 Red Blood Count 2.86 Hemoglobin 8.5 Hematocrit 24.6 Mean Corpuscular Volume 86.0 Mean Corpuscular Hemoglobin 29.7 Mean Corpuscular Hemoglobin Concent 34.5 Red Cell Distribution Width 20.0 Platelet Count 125 Mean Platelet Volume 8.2 Neutrophils (%) (Auto) 81.8 Lymphocytes (%) (Auto) 5.7 Monocytes (%) (Auto) 8.6 Eosinophils (%) (Auto) 3.3 Basophils (%) (Auto) 0.6 Neutrophils # (Auto) 13.3 Lymphocytes # (Auto) 0.9 Monocytes # (Auto) 1.4 Eosinophils # (Auto) 0.5 Basophils # (Auto) 0.1 CBC Comment DIFF FINAL Differential Comment Date/Time Source Procedure Growth Status 10/18/17 15:40 Blood Peripheral Aerobic Blood Culture - Final NO GROWTH IN 5 DAYS Complete 10/18/17 15:40 Blood Peripheral Anaerobic Blood Culture - Final NO GROWTH IN 5 DAYS Complete 10/09/17 12:00 Fluid Pleural Fluid Fungal Smear - Final NO FUNGAL ELEMENTS SEEN. Resulted 10/09/17 12:00 Fluid Pleural Fluid Fungal Culture - Preliminary NO GROWTH IN 3 WEEKS Resulted 10/16/17 12:55 Sputum Endotracheal Gram Stain - Final Complete 10/16/17 12:55 Sputum Endotracheal Sputum Culture - Final RARE GROWTH NORMAL RESPIRATORY RHIANNON Complete 10/03/17 21:30 Urine Random Urine Legionella Antigen - Final PRESUMPTIVE NEGATIVE FOR LEGIONELLA P... Complete 10/03/17 21:30 Urine Random Urine Streptococcus pneumoniae Antigen (M - Final PRESUMPTIVE NEGATIVE FOR STREPTOCOCCU... Complete Result Diagram: 10/30/17 0353 10/30/17 0333 Imaging Last Impressions Chest X-Ray 10/30/17 0000 Signed Impressions: Service Date/Time: October 17:04 - CONCLUSION: Increasing bilateral scattered pulmonary infiltrates compared to the prior study. Victorino Vang MD Liver Ultrasound 10/24/17 0000 Signed Impressions: Service Date/Time: Tuesday, October 24, 2017 16:43 - CONCLUSION: Hepatosplenomegaly with ascites. Echogenic kidney Madi Mccartney MD Abdomen/Pelvis CT 10/24/17 0000 Signed Impressions: Service Date/Time: Tuesday, October 24, 2017 21:37 - CONCLUSION: 1. Hepatosplenomegaly. 2. Moderate amount of ascites. 3. Diffuse anasarca. 4. Bibasilar pleural effusions and scattered infiltrates. Khoi Padilla MD Tunnelled Chest Tube Removal 10/20/17 0000 Signed Impressions: Service Date/Time: Friday, October 20, 2017 00:00 - CONCLUSION: Uncomplicated chest tube removal. Madi Mccartney MD Chest CT 10/14/17 0000 Signed Impressions: Service Date/Time: Saturday, October 14, 2017 00:26 - CONCLUSION: 1. Bilateral scattered pulmonary nodules are again noted. Several of the right nodules are now cavitary and likely represent septic emboli given the history of IV drug abuse. 2. Interval placement of bilateral chest tubes with small pleural effusions noted. 3. Dense consolidation remains in the posterior lower lobes. Jorge Jang MD Upper Extremity Ultrasound 10/13/17 0000 Signed Impressions: Service Date/Time: Friday, October 13, 2017 11:25 - CONCLUSION: Normal examination. Christian Kaur MD Abdomen X-Ray 10/10/17 0000 Signed Impressions: Service Date/Time: Tuesday, October 10, 2017 16:46 - CONCLUSION: Negative for free air or obstruction. Rahul Yarbrough MD FACR Chest Tube Insertion 10/06/17 0000 Signed Impressions: Service Date/Time: Friday, October 06, 2017 15:37 - CONCLUSION: Uncomplicated chest tube placement as above. Emerson Hui MD Assessment and Plan Assessment and Plan Assessment: 27yM with IVDA including methamphetamine and heroin now with opiate dependence and infective endocarditis. Our current narcotic pain regimen is not controlling his pain, as evidenced by the fact that it clearly is causing untoward side effects of over-sedation, and the patient continues to confirm that his pain is not adequately controlled despite escalating doses. I would not recommend using narcotic pain medicine to treat any acute pain he has, as they are unlikely to be affective given his severe tolerance. However, the patient is unwilling to abstain from using narcotic pain medicine, and does not want to go through inpatient withdraws. I would recommend given the patient's unwillingness to abstain from narcotics, to leave the patient on a maintenance regimen of narcotics to prevent withdraws. On my assessment, the patient does not have any pain needs that would be benefited by IV opiate analgesics Total 24h morphine equivalents currently: 240 oral morphine equivalents per day. Active Problems: Opioid Dependence Central pain syndrome Opioid induced hyperalgesia Infective Endocarditis Chronic back pain subacute pain associated with decubitus ulcer Recommendations: Pain regimen: - continue fentanyl patch 100mcg/hr q3d. this will prevent patient from withdrawing from opiates and experiencing significant symptoms - schedule tyelnol 500mg po q6h [facility] for adjuvant pain therapy - start gabapentin 200mg po q12h (highly renally cleared). given renal dysfunction, would slowly titrate up by 100-200mg/day every 3-5 days up to a maximum of between 0481-1635 mg/day. - start cymbalta for adjuvant chronic pain (SNRI pathway) - start tizanidine 2mg po q8h (alpha-2 agonism pathway.) could also consider alternative alpha-2 agonists such as guanfacine 2mg po q12h or clonidine 0.3mg po TID - would provide patient with oxycodone 5mg po q6h prn pain for any breakthrough pain needs. this could be tapered down to q8h or even q12h dosing over the next several days. d/c norco, d/c dilaudid, d/c morphine. would not offer iv pain medications as these have been ineffective at treating his pain and have had significant documented side effects The patient states he does not want to taper narcotics, so I would recommend against that at this point. If at any point, the decision is made to taper the narcotics, would recommend decreasing total dose by 10% per week. An example schedule is provided below: Current total dose: 240mg morphine: Convert all narcotics into oral morphine doses. Dose schedule as below: Week 1: 216 mg morphine: 60mg po q8h oral long-acting morphine + 5mg po q6h short acting morphine prn for breakthrough Week 2: 180 mg morphine: 50mg po q8h oral long-acting morphine + 5mg po q6h short acting morphine prn for breakthrough Week 3: 153 mg morphine: 45mg po q8h oral long-acting morphine + 5mg po q6h short acting morphine prn for breakthrough Week 4: 140 mg morphine: 40mg po q8h oral long-acting morphine + 5mg po q6h short acting morphine prn for breakthrough Week 5: 125 mg morphine: 35mg po q8h oral long-acting morphine + 5mg po q6h short acting morphine prn for breakthrough Week 6: 112 mg morphine: 30mg po q8h oral long-acting morphine + 5mg po q6h short acting morphine prn for breakthrough Week 7: 101 mg morphine: 25mg po q8h oral long-acting morphine + 5mg po q6h short acting morphine prn for breakthrough Week 8: 90 mg morphine: 20mg po q8h oral long-acting morphine + 5mg po q6h short acting morphine prn for breakthrough Week 9: 72 mg morphine: 15mg po q8h oral long-acting morphine + 5mg po q6h short acting morphine prn for breakthrough Week 10: 58 mg morphine: 10mg po q8h oral long-acting morphine + 5mg po q6h short acting morphine prn for breakthrough Week 11: 52 mg morphine: 15mg po q12h oral long-acting morphine + 5mg po q6h short-acting morphine prn for breakthrough Week 12: 46mg morphine: 10mg po q12h oral long-acting morphine + 5mg po q6h short acting morphine prn for breakthrough Week 13: 42mg morphine: 10mg po q12h oral long-acting morphine + 5mg po q8h short acting morphine prn for breakthrough Week 14: 38mg morphine: 10mg po q12h oral long-acting morphine + 5mg po q12h short-acting morphine prn for breakthrough Week 15: 34mg morphine: 10mg po q8h long-acting morphine prn Week 16: 10mg po q12h long-acting morphine prn Week 17: 10mg po daily long-acting morphine Off. Please contact me if you have any questions or concerns regarding the above recommendations. Joel Fischer MD Oct 30, 2017 19:48
[2017-10-30] MEDS ORDERED: GABAPENTIN 100 MG CAP PO SCH (21:00)
[2017-10-30] MEDS ORDERED: diphenhydrAMINE HCL ELIXIR 12.5 MG/5 ML CUP PO PRN ×2 (21:30→21:45)
[2017-10-31] VITALS (12 sets, daily range): BP systolic 83–107; BP diastolic 49–58; PULSE 98–114; RESP 14–24; TEMP 97.1–98.3; O2SAT 93–97
[2017-10-31] MEDS: ACETAMINOPHEN 500 MG CPLT PO SCH ×5 (01:03→23:48)
[2017-10-31] MEDS: CHLORHEXIDINE GLUCONATE 2 % 1 PACK (2 CLOTHS) TOP SCH (04:00)
[2017-10-31] MEDS: METOPROLOL TARTRATE 25 MG TAB PO SCH ×3 (05:15→21:40)
[2017-10-31 07:59] LABS: AUTOMATED NEUTROPHIL # 10.7 TH/MM3 (1.8-7.7); BASOPHIL # 0.1 TH/MM3 (0-0.2); BASOPHIL % 0.8 % (0.0-2.0); EOSINOPHIL # 0.4 TH/MM3 (0-0.4); EOSINOPHIL % 2.7 % (0.0-4.0); HEMATOCRIT 23.6 % (39.0-51.0); HEMOGLOBIN 8.1 GM/DL (13.0-17.0); LYMPHOCYTE # 1.1 TH/MM3 (1.0-4.8); MEAN CELL VOLUME 86.5 FL (80.0-100.0); MEAN CORPUSCULAR HEMOGLOBIN 29.5 PG (27.0-34.0); MEAN CORPUSCULAR HGB CONC 34.2 % (32.0-36.0); MEAN PLATELET VOLUME 7.9 FL (7.0-11.0); MONO % 9.2 % (0.0-8.0); MONOCYTE # 1.2 TH/MM3 (0-0.9); NEUT % 79.3 % (16.0-70.0); PLATELET COUNT 100 TH/MM3 (150-450); RED BLOOD COUNT 2.73 MIL/MM3 (4.50-5.90); RED CELL DISTRIBUTION WIDTH 19.9 % (11.6-17.2); WHITE BLOOD COUNT 13.5 TH/MM3 (4.0-11.0)
[2017-10-31] MEDS: CHLORHEXIDINE 0.12% (ORAL KIT) 15 ML CUP MT SCH ×2 (08:00→20:00)
[2017-10-31 08:05] LABS: BICARBONATE 23.9 MEQ/L (21.0-32.0); CALCIUM 8.1 MG/DL (8.5-10.1); CREATININE 5.52 MG/DL (0.60-1.30)
[2017-10-31] MEDS: CALCIUM ACETATE 667 MG CAP PO SCH ×3 (09:00→17:48)
[2017-10-31] MEDS ORDERED: DULoxetine HCl DR 20 MG CAP PO SCH (09:00)
[2017-10-31] MEDS: LACTOBACILLUS ACIDOPHILUS TAB PO SCH ×3 (09:00→17:49)
[2017-10-31] MEDS: DOCUSATE SODIUM 50 MG/SENNA 8.6 MG TAB PO SCH ×2 (09:00→21:00)
--- NOTE | 2017-10-31 09:12 | HHI.PR ---
Subjective Remarks Follow-up on endocarditis. No deteriorations overnight per nursing. Patient himself says he is eating well. Objective Vital Signs Date Time Temp Pulse Resp B/P (MAP) Pulse Ox O2 Delivery O2 Flow Rate FiO2 10/31/17 07:34 95 Nasal Cannula 3.00 10/31/17 04:30 98 10/31/17 04:17 97.1 102 18 89/53 (65) 93 10/31/17 00:00 114 10/30/17 23:30 98.6 120 18 119/62 (81) 95 10/30/17 21:03 98.5 114 18 100/58 (72) 99 10/30/17 20:45 Nasal Cannula 4.00 10/30/17 20:43 93 Nasal Cannula 4.00 10/30/17 19:09 93 Nasal Cannula 4.00 10/30/17 17:28 18 10/30/17 16:00 99.0 109 20 113/67 (82) 93 10/30/17 15:54 18 10/30/17 15:00 104 10/30/17 13:55 113 110/56 (74) 100 10/30/17 12:00 104 I/O 10/30/17 10/30/17 10/30/17 10/31/17 10/31/17 10/31/17 07:00 15:00 23:00 07:00 15:00 23:00 Intake Total 340 ml 1300 ml 960 ml Output Total 0 ml 1500 ml Balance 340 ml -1500 ml 1300 ml 960 ml Intake Oral 240 ml 1300 ml 960 ml IV Total 100 ml Output Urine Total 0 ml Hemodialysis 1500 ml # Voids 0 # Bowel Movements 0 2 0 Result Diagram: 10/31/17 0615 10/31/17 0615 Objective Remarks Slightly muffled heart sounds, unlabored breathing, no lower extremity edema, sitting up in bed, awake, alert, no acute distress A/P Assessment and Plan IVDU switched morhine 2mg q4hr to dilaudid 0.5 IV q6hrs prn breakthrough. Added norco 10/325 po q6hrs prn pain 6-10 instead of morphine Continue Fentanyl patch 75 mcg every 72 hours. Taper as tolerated. Palliative care following. Dr. Barry attempted to evaluate to pt on two different occasions but pt wasn't in room. Appreciate recs regarding pain regimen. Acute hypoxemic respiratory failure - improving Extensive septic emboli, consolidation of the lung Loculated left effusion, large right effusion - Extubated 10/17 (Self extubated while on CPAP for planned extubation) - IR placed left chest tube 10/06 with more than 1 L exudative fluid out. Removed 10/20 - Dr. Barraza placed right-sided pigtail chest tube at the bedside 10/09, brown tinged fluid approximately 1.1 L initial output, now output is minimum. Removed right chest tube 10/18/17. - Broad-spectrum antibiotics per ID, see below - Incentive spirometry while awake/Albuterol/ipratropium aerosols every 6 hours while awake with albuterol aerosols every 2 hours. Dyspnea/ EzPAP every 6 hours since 10/17 - Fluticasone - considerable increase in bilateral infiltrates, right greater than left, noted on independent review of chest x-ray that was obtained yesterday; no clinical deterioration has been correlated however. white count decreasing Large tricuspid valve vegetation Small pericardial effusion Acute systolic heart failure Mild pulmonary hypertension - Bedside echo shows large tricuspid vegetation. repeat bedside echo today 10/18 similar size - Cardiology and CT surgery has followed. D/W Dr. Charles declined surgery due to active IV drug use, multiple medical complications. Discussed with [facility] who agreed with plan of our cardiothoracic surgeon. No transfer at this time. Apparently [facility] hasn't accepted the transfer per CM - CARMEN 10/04: EF 45-50 %. Large mobile vegetation on tricuspid valve, 2 separate vegetations 2.1 x 3.2 cm and 2.6 x 0.8 cm. PIP 40.7 mmHg -Echo 10/20 -EF 35-40%. Tricuspid valve vegetation Currently on metoprolol tartrate 25 mg p.o. every 8 hours Hepatosplenomegaly Diarrhea Hypoalbuminemia Hepatitis C genotype 1A Elevated ceruloplasmin MARTÍN + diffuse Elevated total bilirubin Elevated AST -Pantoprazole 40 mg p.o. twice daily due to persistent anemia. GI has followed currently signed off - Hepatitis C reactive. Genotype 1a Viral load 10,700 -Renal diet -Docusate sodium/senna 1 tablet twice daily for bowel regimen Hepatic ultrasound revealed hepatosplenomegaly.. CT abdomen/pelvis 10/24 revealed no obvious hepatic, pancreatic, nephrotic versus musculoskeletal source. Hepatosplenomegaly. Moderate ascites. Anasarca. CPK and troponin normal. Repeat liver function tests in a.m. 3/ Acute kidney failure with fluid overload - on hemodialysis 10/08,above. - Continue intermittent HD for fluid removal. -2 L today 10/25 - Strict I's and O's, Monitor trend of creatinine - Replace electrolytes as clinically indicated - 10/14-removed vas catheter. Replaced on 10/16 Tricuspid and pulmonic valve endocarditis Septic emboli to the lung Severe sepsis MSSA bacteremia - Discussed with Dr. Charles CT surgery 10/05/17, 10/19, deemed not a surgical candidate - Cefazolin per ID Dr. Macias. 10/22 discontinued vancomycin 125 mg 4 times daily. discontinue rifampin due to elevated AST. Currently on zyvox and cefepime IV - Persistent MSSA bacteremia 10/04, 10/05 10/07 blood cultures, cultures reviewed. Blood cultures from 10/13 negative; has been afebrile recently. Anemia requiring transfusion Leukocytosis Normocytic anemia - Transfuse PRBC to keep Hb>7.0 - LDH mildly elevated and haptoglobin normal, Transfusion 1u PRBC on 10/14, 10/17 and 10/23 and 10/25 - Monitor CBC, Coags - Thrombocytopenia most likely from sepsis and DIC has resolved -Epogen 10,000 units as needed with hemodialysis PT following Hyponatremia Replace electrolytes as clinically indicated Hyponatremia workup ordered. See orders Discharge Planning Pt has no payor source. Pt currently on HD. ID, palliative care, [facility] following; no outside accepting facility at this time, CM following.. Pt very emotional, tearful then angry at times. Psych attempted to evaluate the pt but pt wasn't in room yesterday. They will evaluate again today Nicolas Dorman MD Oct 31, 2017 09:12
--- NOTE | 2017-10-31 09:37 | HHI.NPPN ---
Subjective Complaints: Shortness of Breath Renal Failure: Acute History of Present Illness Patient is 27-year-old male who reported to ER with body aches, 7 days of diarrhea with development fever. Past medical history of IV drug use. Patient is sedated and ventilated FiO2 at 40 %. Nephrology is consulted for ZEUS and fluid over load status. Patients creatinine is 3.02 and GFR 25ml/min. Patient is UOP at 800cc for last 24 hours. Weight has increased by over 10 kg since admission. IVF's have been stopped and lasix has been given. Patient has endocarditis with large tricuspid valve vegetation, and pulmonic vegetation. Noted to have bacteremia with hypotension with SBP in the 90's. Additional Remarks OOB on couch. Mild SOB and abdominal distention. Reports that he did not sleep well. (Venus Barrett) Review of Systems Respiratory Lungs: SOB Respiratory Remarks mild (Venus Barrett) Cardiovascular Cardiac Remarks denies CP (Venus Barrett) Psych Psych: Depression, Anxiety (Venus Barrett) Objective Data Data Vital Signs Date Time Temp Pulse Resp B/P (MAP) Pulse Ox O2 Delivery O2 Flow Rate FiO2 10/31/17 07:34 95 Nasal Cannula 3.00 10/31/17 04:30 98 10/31/17 04:17 97.1 102 18 89/53 (65) 93 10/31/17 00:00 114 10/30/17 23:30 98.6 120 18 119/62 (81) 95 10/30/17 21:03 98.5 114 18 100/58 (72) 99 10/30/17 20:45 Nasal Cannula 4.00 10/30/17 20:43 93 Nasal Cannula 4.00 10/30/17 19:09 93 Nasal Cannula 4.00 10/30/17 17:28 18 10/30/17 16:00 99.0 109 20 113/67 (82) 93 10/30/17 15:54 18 10/30/17 15:00 104 10/30/17 13:55 113 110/56 (74) 100 10/30/17 12:00 104 (Venus Barrett) -: 10/31/17 0615 10/31/17 0615 Tubes & Lines: Vas-Cath (Venus BarrettP) Physical Exam General Appearance: No Acute Distress, Comfortable, Anxious (Venus Barrett [employer]) Eyes Eye Exam: Pupils Equal (Venus Barrett [employer]) Pulmonary Resp Exam: Decreased Bases, Diminished Breath Sounds (Venus Barrett [employer] INS[employer]JUSTER) Cardiology CV Exam: Tachycardia (Venus Barrett [employer]) Gastrointestinal/Abdomen GI Exam: Soft, Non-Tender, Bowel Sounds Present, Distended (Venus Barrett [employer]ER) Integumentary Skin Exam: Clear, Warm (Venus Barrett [employer]JUSTER) Extremeties Extremities Exam: Moderate Edema (Venus Barrett [employer]) Neurologic Neuro Exam: Alert, Awake (Venus BarrettP) Assessment/Plan Assessment Summary: ZEUS/Acute Renal Failure Electrolyte Assessment: Hyponatremia Problem List: (1) ZEUS (acute kidney injury) ICD Codes: N17.9 - Acute kidney failure, unspecified Plan: ZEUS most likely ATN from sepsis and low blood pressure. Other differential will be ATN, Acute interstitial nephritis, and Post infectious GN,unlikely. HD started on 10/08 Plan Avoid nephrotoxins. Anemia continue epogen with dialysis Dialysis yesterday for 1500 liters removed Follow the urine out put and BMP. HD as needed, watch for renal recovery. (2) Sepsis ICD Codes: A41.9 - Sepsis, unspecified organism Status: Acute Plan: Antibiotics per ID (3) Endocarditis ICD Codes: I38 - Endocarditis, valve unspecified Status: Acute (Venus Barrett [employer] INS[employer]ANCE ADJUSTER) Problem List: (1) ZEUS (acute kidney injury) ICD Codes: N17.9 - Acute kidney failure, unspecified Plan: ZEUS most likely ATN from sepsis and low blood pressure. Other differential will be ATN, Acute interstitial nephritis, and Post infectious GN,unlikely. HD started on 10/08 Plan Avoid nephrotoxins. Anemia continue epogen with dialysis Dialysis yesterday for 1500 liters removed Follow the urine out put and BMP. HD as needed, watch for renal recovery. Patient seen and examined, agree with above. Watch for renal recovery, now eating better. (2) Sepsis ICD Codes: A41.9 - Sepsis, unspecified organism Status: Acute Plan: Antibiotics per ID (3) Endocarditis ICD Codes: I38 - Endocarditis, valve unspecified Status: Acute (Darek Tapia MD) Problem Qualifiers (1) Sepsis: Qualified Codes: A41.9 - Sepsis, unspecified organism (2) Endocarditis: Venus Barrett Oct 31, 2017 09:37 Darek Tapia MD Nov 01, 2017 09:23
--- NOTE | 2017-10-31 10:12 | PD.PN.STU ---
Subjective Remarks This patient is a 27y/o male with no past psychiatric hospitalization , 4 suicide attempts- most recent was 3 years ago, a hx of polysubstance abuse, a medical history of asthma, bacterial endocarditis with septic emboli, anemia requiring transfusion, ZEUS, Hepatitis C, and elevated AST. He is domiciled in [place] with his mother and father, unemployed, has a girlfriend, and high school is highest level of education. the patient reports that he has been abusing many drugs since he was 14 including marijuana, tobacco, methamphetamine , heroin, Dilaudid, and acid. has used the drugs on and off and decided to quit 2 weeks prior to his hospitalization to get his life on track. He reports that he has always been an anxious person especially when in groups of people. The patient describes he feels "numb" since being in the hospital. He reports getting easily irritated and often feeling restless most of his life. He has trouble focusing, has been getting poor sleep since being int he hospital, and a normal appetite. The patient thinks the source of his anxiety is other people. He reports that he also feels sad because "my life is not on track". He states that he has never seen a psychiatrist or been on any medication for psychiatric reasons. The patient is oriented and shows no obvious cognitive deficits. He reports a family history of bipolar in his mother and denies any episodes of talking very fast, decreased need for sleep, or making out of the normal reckless decisions. He denies suicidal or homicidal ideations and denies any audio or visual hallucinations. Objective Vitals Vital Signs Date Time Temp Pulse Resp B/P (MAP) Pulse Ox O2 Delivery O2 Flow Rate FiO2 10/31/17 07:34 95 Nasal Cannula 3.00 10/31/17 04:30 98 10/31/17 04:17 97.1 102 18 89/53 (65) 93 10/31/17 00:00 114 10/30/17 23:30 98.6 120 18 119/62 (81) 95 10/30/17 21:03 98.5 114 18 100/58 (72) 99 10/30/17 20:45 Nasal Cannula 4.00 10/30/17 20:43 93 Nasal Cannula 4.00 10/30/17 19:09 93 Nasal Cannula 4.00 3/8/18 17:28 18 10/30/17 16:00 99.0 109 20 113/67 (82) 93 10/30/17 15:54 18 10/30/17 15:00 104 10/30/17 13:55 113 110/56 (74) 100 10/30/17 12:00 104 I/O 10/30/17 10/30/17 10/30/17 10/31/17 10/31/17 10/31/17 07:00 15:00 23:00 07:00 15:00 23:00 Intake Total 340 ml 1300 ml 960 ml Output Total 0 ml 1500 ml Balance 340 ml -1500 ml 1300 ml 960 ml Intake Oral 240 ml 1300 ml 960 ml IV Total 100 ml Output Urine Total 0 ml Hemodialysis 1500 ml # Voids 0 # Bowel Movements 0 2 0 Result Diagram: 10/31/1715 10/31/17614 Objective Remarks Mental Status Exam: Appearance: sitting in the chair with girlfriend, covered with tattoos Behavior: uncooperative with interview Speech: low tone, hesitant to give information, normal rate Thought Process: derailment of thoughts, Thought Content: focused on his life being off track, Mood: "sad" Affect: labile, often irritated Insight: poor Judgment: poor Impulse: poor Ideations: no suicidal or homicidal ideations Delusions: denies Hallucinations: denies Oriented: to person, place, and time Level of Knowledge: unremarkable Medications and IVs Administered Medications Medications (Trade) Dose Ordered Sig/Willem Route PRN Reason Start Time Stop Time Status Last Admin Dose Admin Sodium Chloride (NS Flush) 2 ml UNSCH PRN IV FLUSH FLUSH AFTER USING IV ACCESS 10/03/17 21:15 10/15/17 20:58 Sodium Chloride (NS Flush) 2 ml BID IV FLUSH 10/04/17 09:00 10/30/17 23:43 Ondansetron HCl (Zofran Inj) 4 mg Q6H PRN IV PUSH NAUSEA OR VOMITING 10/03/17 21:15 10/23/17 16:35 Temazepam (Restoril) 15 mg HS PRN PO INSOMNIA 10/03/17 21:15 10/27/17 20:29 Chlorhexidine Gluconate (Chlorhexidine 2% Cloth) Taper DAILY@04 TOP 10/04/17 04:00 09/30/18 03:59 3/4/18 21:40 Senna/Docusate Sodium (Renita-Colace) 1 tab BID PO 10/04/17 09:00 10/29/17 08:37 Bisacodyl (Dulcolax Supp) 10 mg DAILY PRN RECTAL SEVERE CONSITIPATION 10/03/17 21:15 10/11/17 17:08 Lactulose (Lactulose Liq) 30 ml DAILY PRN PO SEVERE CONSITIPATION 10/03/17 21:15 10/11/17 17:08 Fluticasone Propionate (Flovent Hfa 44 Mcg Inh) 2 puff BID INH 10/04/17 09:00 10/30/17 23:43 Chlorhexidine Gluconate (Peridex 0.12% Liq) 15 ml BID@08,20 MT 10/04/17 20:00 10/28/17 08:00 Sodium Chloride 1,000 ml @ 0 mls/hr Q0M PRN OTHER For Prime & Rinse Back 10/08/17 10:33 10/25/17 10:39 Sodium Chloride 1,000 ml @ 200 mls/hr Q5H PRN IV WITH DIALYSIS 10/08/17 11:15 10/11/17 08:57 Albumin Human 100 ml @ 60 mls/hr UNSCH PRN IV WITH DIALYSIS 10/08/17 11:30 10/30/17 12:07 Sodium Chloride (NS Flush) 5 ml UNSCH PRN IV FLUSH WITH DIALYSIS 10/08/17 11:15 10/25/17 10:40 Heparin Sodium (Porcine) (Heparin Inj) UNSCH PRN .XX WITH DIALYSIS 10/08/17 11:15 10/30/17 12:06 Gentamicin Sulfate (Gentamicin Inj) 20 mg UNSCH PRN OTHER WITH DIALYSIS 10/08/17 11:15 10/30/17 12:06 Epoetin Julio (Epogen Inj) 10,000 units UNSCH PRN IV PUSH WITH DIALYSIS 10/08/17 11:30 10/30/17 12:06 Lactobacillus Acidophilus (Lactinex) 1 tab TID PO 10/17/17 13:00 10/30/17 17:32 Fentanyl (Duragesic 100 Mcg Patch.72 Hr) 1 patch Q3D T-DERMAL 10/18/17 12:00 10/30/17 13:22 Miscellaneous Information 1 Q3D T-DERMAL 10/21/17 12:00 10/30/17 12:00 Collagenase (Santyl Oint) 1 applic DAILY TOPICAL 10/20/17 16:00 10/29/17 08:38 Albuterol Sulfate (Albuterol Neb) 2.5 mg Q2HR NEB PRN NEB dyspnea 10/21/17 13:30 10/30/17 20:43 Pantoprazole Sodium (Protonix) 40 mg Q12HR PO 10/21/17 21:00 10/30/17 23:41 Heparin Sodium (Porcine) (Heparin Inj) 5,000 units Q12HR SQ 10/21/17 21:00 10/30/17 23:42 Calcium Acetate (Phoslo) 667 mg TID PO 10/23/17 13:00 10/30/17 17:32 Cefazolin Sodium 1000 mg/Sodium Chloride 100 ml @ 200 mls/hr Q12H IV 10/24/17 03:00 10/31/17 04:06 Haloperidol Lactate (Haldol Inj) 5 mg Q4H PRN IV PUSH agitation 10/23/17 23:30 10/26/17 23:39 Metoprolol Tartrate (Lopressor) 25 mg Q8HR PO 10/25/17 22:00 10/30/17 23:41 Sodium Chloride (Sodium Chloride) 1 gm DAILY PO 10/26/17 09:00 10/29/17 08:37 Ferrous Sulfate (Ferrous Sulfate) 325 mg BID@12,17 PO 10/27/17 12:00 10/30/17 17:32 Cefepime HCl 2000 mg/Sodium Chloride 100 ml @ 200 mls/hr Q48H IV 10/30/17 16:00 10/30/17 17:32 Linezolid (Zyvox) 600 mg Q12HR PO 10/30/17 14:00 10/30/17 23:41 Acetaminophen (Tylenol) 500 mg Q6HR PO 10/31/17 00:00 10/31/17 05:17 Oxycodone HCl (Roxicodone) 5 mg Q6H PRN PO pain 6-10 10/30/17 20:00 10/31/17 01:03 Gabapentin (Neurontin) 200 mg Q12HR PO 10/30/17 21:00 10/30/17 23:41 Tizanidine HCl (Zanaflex) 2 mg Q8HR PO 10/30/17 22:00 10/31/17 05:18 A/P Assessment and Plan This patient is a 27y/o male with no past psychiatric hospitalization , 4 suicide attempts- most recent was 3 years ago, a hx of polysubstance abuse, a medical history of asthma, bacterial endocarditis with septic emboli, anemia requiring transfusion, ZEUS, Hepatitis C, and elevated AST. He is domiciled in [place] with his mother and father, unemployed, has a girlfriend, and high school is highest level of education. The patient reports an extensive history of polysubstance abuse since the age of 14. He also admits to feeling anxious for most of his life, mostly when around other people. He has issues with focusing, sleeping, becoming irritated, feeling restless, and worrying. This has been going on since before the hospital so it is not likely to be adjustment disorder. He reports that after he leaves the hospital he wants "to get my life on track". He denies any suicidal or homicidal ideations. He has no outpatient psychiatric care and reports never taking any psychiatric medications. 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 He will also benefit from Hydroxyzine 50mg POQ6 hours as needed for acute anxiety in the hospital. Due to his history of drug abuse, benzodiazepines are not a good option. Brief psychotherapy and psychoeducation was provided. The patient does not meet criteria for psychiatric admission at this time. Robert Westbrook M3 Oct 31, 2017 10:12
--- NOTE | 2017-10-31 11:16 | HHI.IDPN ---
Subjective Subjective Remarks ID COVERAGE is a 27 y/o CM with remote history of IV drug abuse, states he last used heroin 2 months ago, presents for evaluation of body aches, 7 days of diarrhea with development of subjective fever yesterday. Patient denies any nausea or vomiting. He denies any chest pain. This has developed within the last 24 hours. Patient does have a cough with clear sputum. Denies any prior history of endocarditis. Denies any abdominal pain. Does report some left back pain, worse while lying flat. He is well reports generalized weakness. Patient met criteria for sepsis on admission. Flu antigen negative. CXR with bilateral infiltrates. performed a bedside 2D ECHO and verbally reported a large ~4.5 cm vegetation on TV. CXR suspicious for septic emboli. Blood cultures drawn but it appears patient has received augmentin at some point and cultures may possibly be negative. ID is following for evaluation and M'ment of Severe Sepsis and Endocarditis. Notes reviewed Temps ok Mild SOB, up in couch On nasal O2 Had HD yesterday - only took out 1500 ml BP ok No rash No diarrhea CXR 10/30 with increased infiltrates Antibiotics Current Medications Ancef Cefepime Zyvox Medications (Trade) Dose Ordered Sig/Willem Route Start Time Stop Time Status Last Admin (NS Flush) 2 ml UNSCH PRN IV FLUSH 10/03/17 21:15 10/15/17 20:58 (NS Flush) 2 ml BID IV FLUSH 10/04/17 09:00 10/30/17 23:43 (Zofran Inj) 4 mg Q6H PRN IV PUSH 10/03/17 21:15 10/23/17 16:35 (Restoril) 15 mg HS PRN PO 10/03/17 21:15 10/27/17 20:29 Miscellaneous Information 1 Q361D XX 10/03/17 21:15 (Chlorhexidine 2% Cloth) Taper DAILY@04 TOP 10/04/17 04:00 09/30/18 03:59 10/26/17 21:40 (Chlorhexidine 2% Cloth) 3 pack UNSCH PRN TOP 10/03/17 21:15 (Renita-Colace) 1 tab BID PO 10/04/17 09:00 10/29/17 08:37 (Senokot) 17.2 mg Q12H PRN PO 10/03/17 21:15 (Dulcolax Supp) 10 mg DAILY PRN RECTAL 10/03/17 21:15 10/11/17 17:08 (Lactulose Liq) 30 ml DAILY PRN PO 10/03/17 21:15 10/11/17 17:08 (Flovent Hfa 44 Mcg Inh) 2 puff BID INH 10/04/17 09:00 10/30/17 23:43 (Peridex 0.12% Liq) 15 ml BID@08,20 MT 10/04/17 20:00 10/28/17 08:00 Sodium Chloride 1,000 ml @ 0 mls/hr Q0M PRN OTHER 10/08/17 10:33 10/25/17 10:39 (Heparin Inj) 8,000 units UNSCH PRN IV FLUSH 10/08/17 10:45 Sodium Chloride 1,000 ml @ 200 mls/hr Q5H PRN IV 10/08/17 11:15 10/11/17 08:57 Sodium Chloride 1,000 ml @ 0 mls/hr Q0M PRN OTHER 10/08/17 11:15 (Mannitol Inj) 12.5 gm UNSCH PRN IV 10/08/17 11:15 Albumin Human 100 ml @ 60 mls/hr UNSCH PRN IV 10/08/17 11:30 10/30/17 12:07 (NS Flush) 5 ml UNSCH PRN IV FLUSH 10/08/17 11:15 10/25/17 10:40 (Heparin Inj) UNSCH PRN .XX 10/08/17 11:15 10/30/17 12:06 (Gentamicin Inj) 20 mg UNSCH PRN OTHER 10/08/17 11:15 10/30/17 12:06 (Zofran Inj) 4 mg UNSCH PRN IV PUSH 10/08/17 11:15 (Nitrostat Sl) 0.4 mg UNSCH PRN SL 10/08/17 11:30 (Catapres) 0.1 mg UNSCH PRN PO 10/08/17 11:30 (Epogen Inj) 10,000 units UNSCH PRN IV PUSH 10/08/17 11:30 10/30/17 12:06 (Gelfoam 12 Mm/7 Mm Top) 1 foam UNSCH PRN TOP 10/08/17 11:30 (Lactinex) 1 tab TID PO 10/17/17 13:00 10/30/17 17:32 (Duragesic 100 Mcg Patch.72 Hr) 1 patch Q3D T-DERMAL 10/18/17 12:00 10/30/17 13:22 Miscellaneous Information 1 Q3D T-DERMAL 10/21/17 12:00 10/30/17 12:00 (Santyl Oint) 1 applic DAILY TOPICAL 10/20/17 16:00 10/29/17 08:38 (Albuterol Neb) 2.5 mg Q2HR NEB PRN NEB 10/21/17 13:30 10/30/17 20:43 (Protonix) 40 mg Q12HR PO 10/21/17 21:00 10/30/17 23:41 (Heparin Inj) 5,000 units Q12HR SQ 10/21/17 21:00 10/30/17 23:42 (Phoslo) 667 mg TID PO 10/23/17 13:00 10/30/17 17:32 Cefazolin Sodium 1000 mg/Sodium Chloride 100 ml @ 200 mls/hr Q12H IV 10/24/17 03:00 10/31/17 04:06 (Haldol Inj) 5 mg Q4H PRN IV PUSH 10/23/17 23:30 10/26/17 23:39 (Lopressor) 25 mg Q8HR PO 10/25/17 22:00 10/30/17 23:41 (Sodium Chloride) 1 gm DAILY PO 10/26/17 09:00 10/29/17 08:37 (Ferrous Sulfate) 325 mg BID@12,17 PO 10/27/17 12:00 10/30/17 17:32 Cefepime HCl 2000 mg/Sodium Chloride 100 ml @ 200 mls/hr Q48H IV 10/30/17 16:00 10/30/17 17:32 (Zyvox) 600 mg Q12HR PO 10/30/17 14:00 10/30/17 23:41 (Tylenol) 500 mg Q6HR PO 10/31/17 00:00 10/31/17 05:17 (Roxicodone) 5 mg Q6H PRN PO 10/30/17 20:00 10/31/17 01:03 (Neurontin) 200 mg Q12HR PO 10/30/17 21:00 10/30/17 23:41 (Cymbalta Dr) 20 mg DAILY PO 10/31/17 09:00 UNV (Zanaflex) 2 mg Q8HR PO 10/30/17 22:00 10/31/17 05:18 (Benadryl Liq) 12.5 mg Q4H PRN PO 10/30/17 21:45 Lines Line sites with no e.o infection Past Medical History Asthma HCV Past Surgical History No surgical history per records. Allergies: Coded Allergies: erythromycin base (Verified Allergy, Severe, Nausea/Vomiting, 10/03/17) raspberry (Unverified Allergy, Mild, 10/03/17) Objective . Vital Signs Date Time Temp Pulse Resp B/P (MAP) Pulse Ox O2 Delivery O2 Flow Rate FiO2 10/31/17 10:15 88/49 (62) 10/31/17 08:00 Nasal Cannula 3.00 10/31/17 08:00 97.2 105 14 83/55 (64) 94 10/31/17 07:34 95 Nasal Cannula 3.00 10/31/17 04:30 98 10/31/17 04:17 97.1 102 18 89/53 (65) 93 10/31/17 00:00 114 10/30/17 23:30 98.6 120 18 119/62 (81) 95 10/30/17 21:03 98.5 114 18 100/58 (72) 99 10/30/17 20:45 Nasal Cannula 4.00 10/30/17 20:43 93 Nasal Cannula 4.00 10/30/17 19:09 93 Nasal Cannula 4.00 10/30/17 17:28 18 10/30/17 16:00 99.0 109 20 113/67 (82) 93 10/30/17 15:54 18 10/30/17 15:00 104 10/30/17 13:55 113 110/56 (74) 100 10/30/17 12:00 104 . Laboratory Tests Test 10/30/17 03:53 10/31/17 06:15 White Blood Count 16.2 TH/MM3 13.5 TH/MM3 Red Blood Count 2.86 MIL/MM3 2.73 MIL/MM3 Hemoglobin 8.5 GM/DL 8.1 GM/DL Hematocrit 24.6 % 23.6 % Mean Corpuscular Volume 86.0 FL 86.5 FL Mean Corpuscular Hemoglobin 29.7 PG 29.5 PG Mean Corpuscular Hemoglobin Concent 34.5 % 34.2 % Red Cell Distribution Width 20.0 % 19.9 % Platelet Count 125 TH/MM3 100 TH/MM3 Mean Platelet Volume 8.2 FL 7.9 FL Neutrophils (%) (Auto) 81.8 % 79.3 % Lymphocytes (%) (Auto) 5.7 % 8.0 % Monocytes (%) (Auto) 8.6 % 9.2 % Eosinophils (%) (Auto) 3.3 % 2.7 % Basophils (%) (Auto) 0.6 % 0.8 % Neutrophils # (Auto) 13.3 TH/MM3 10.7 TH/MM3 Lymphocytes # (Auto) 0.9 TH/MM3 1.1 TH/MM3 Monocytes # (Auto) 1.4 TH/MM3 1.2 TH/MM3 Eosinophils # (Auto) 0.5 TH/MM3 0.4 TH/MM3 Basophils # (Auto) 0.1 TH/MM3 0.1 TH/MM3 CBC Comment DIFF FINAL DIFF FINAL Differential Comment Laboratory Tests Test 10/30/17 03:33 10/31/17 06:15 Blood Urea Nitrogen 45 MG/DL 35 MG/DL Creatinine 6.53 MG/DL 5.52 MG/DL Random Glucose 88 MG/DL 87 MG/DL Calcium Level 8.2 MG/DL 8.1 MG/DL Sodium Level 129 MEQ/L 130 MEQ/L Potassium Level 3.8 MEQ/L 3.7 MEQ/L Chloride Level 91 MEQ/L 92 MEQ/L Carbon Dioxide Level 23.9 MEQ/L 23.9 MEQ/L Anion Gap 14 MEQ/L 14 MEQ/L Estimat Glomerular Filtration Rate 10 ML/MIN 13 ML/MIN Imaging Chest X-Ray 10/30/17 0000 Signed Impressions: Service Date/Time: October 17:04 - CONCLUSION: Increasing bilateral scattered pulmonary infiltrates compared to the prior study. Victorino Vang MD Liver Ultrasound 10/24/17 0000 Signed Impressions: Service Date/Time: Tuesday, October 24, 2017 16:43 - CONCLUSION: Hepatosplenomegaly with ascites. Echogenic kidney Madi Mccartney MD Abdomen/Pelvis CT 10/24/17 0000 Signed Impressions: Service Date/Time: Tuesday, October 24, 2017 21:37 - CONCLUSION: 1. Hepatosplenomegaly. 2. Moderate amount of ascites. 3. Diffuse anasarca. 4. Bibasilar pleural effusions and scattered infiltrates. Khoi Padilla MD Tunnelled Chest Tube Removal 10/20/17 0000 Signed Impressions: Service Date/Time: Friday, October 20, 2017 00:00 - CONCLUSION: Uncomplicated chest tube removal. Madi Mccartney MD Chest CT 10/14/17 0000 Signed Impressions: Service Date/Time: Saturday, October 14, 2017 00:26 - CONCLUSION: 1. Bilateral scattered pulmonary nodules are again noted. Several of the right nodules are now cavitary and likely represent septic emboli given the history of IV drug abuse. 2. Interval placement of bilateral chest tubes with small pleural effusions noted. 3. Dense consolidation remains in the posterior lower lobes. Jorge Jang MD Upper Extremity Ultrasound 10/13/17 0000 Signed Impressions: Service Date/Time: Friday, October 13, 2017 11:25 - CONCLUSION: Normal examination. Christian Kaur MD Abdomen X-Ray 10/10/17 0000 Signed Impressions: Service Date/Time: Tuesday, October 10, 2017 16:46 - CONCLUSION: Negative for free air or obstruction. Rahul Yarbrough MD FACR Chest Tube Insertion 10/06/17 0000 Signed Impressions: Service Date/Time: Friday, October 06, 2017 15:37 - CONCLUSION: Uncomplicated chest tube placement as above. Emerson Hui MD Physical Exam GENERAL: Awake, and following commands, on nasal O2, in mild resp distress. SKIN: No rashes. Cool and dry. Multiple tattoos. HEAD: Atraumatic. Normocephalic. No temporal or scalp tenderness. EYES: Pupils equal round and reactive. Extraocular motions intact. No petechia, no hemorrhage ENT: Moist oral mucosa, no nasal drainage NECK: Trachea midline. Supple, nontender, no meningeal signs. CARDIOVASCULAR: Has systolic murmur RESPIRATORY: Decreased air entry bilaterally bases. Rales bilaterally. GASTROINTESTINAL: Abdomen soft, not tender, (+) BS, distended. MUSCULOSKELETAL: Extremities without clubbing, cyanosis. Mild pedal edema. No embolic lesion seen. NEUROLOGICAL: Awake, follows commands Psych cooperative IV line sites with no e.o infection. 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 Pneumonia: septic emboli, aspiration pneumonia. Respiratory failure, self extubated 10/17 IVDA: heroin, cocaine and methamphetamine. Acute renal failure: Sepsis, meds,contrast. - on HD Abnormal LFTs: ? Rifampin induced vs volume overload related. Recs: Continue Ancef IV (for MSSA TV endocarditis) Continue Cefepime IV (for possible HCAP given increased secretions and pneumonia on clinical exam) Continue Zyvox oral (for MRSA HCAP) Will D/W nephrology regarding repeat CT (chest + abdomen+pelvis) with contrast to reevaluate with contrast prior to HD. Concern for increasing septic emboli ? ongoing embolization in view of large size and multiple emboli. Also consider US abdomen if significant ascites consider paracentesis ( diagnostic and therapeutic) may help reduce work of breathing by lowering diaphragm. Chelsy Kramer MD Oct 31, 2017 11:16
--- NOTE | 2017-10-31 12:11 | PD.PSY.CON ---
Provisional Diagnosis Admission Date Oct 03, 2017 at 18:44 [place] I. SAIMA, polysubstance dependence, including opiates, amphetamines, cannabis, benzodiazepines [place] II. Deferred History of Present Illness Service Psychiatry Consult Requested By Medical team Reason for Consult Anxiety Primary Care Physician No Primary Care Physician HPI Note written by , MS3, reviewed and edited by me. This patient is a 27 y/o male with no past psychiatric hospitalization , 4 suicide attempts- most recent was 3 years ago, a hx of polysubstance abuse, a medical history of asthma, bacterial endocarditis with septic emboli, anemia requiring transfusion, ZEUS, Hepatitis C, and elevated AST. He is domiciled in [place] with his mother and father, unemployed, has a girlfriend, and high school is highest level of education. the patient reports that he has been abusing many drugs since he was 14 including marijuana, tobacco, methamphetamine , heroin, Dilaudid, and acid. has used the drugs on and off and decided to quit 2 weeks prior to his hospitalization to get his life on track. He reports that he has always been an anxious person especially when in groups of people. The patient describes he feels "numb" since being in the hospital. He reports getting easily irritated and often feeling restless most of his life. He has trouble focusing, has been getting poor sleep since being int he hospital, and a normal appetite. The patient thinks the source of his anxiety is other people. He reports that he also feels sad because "my life is not on track". He states that he has never seen a psychiatrist or been on any medication for psychiatric reasons. The patient is oriented and shows no obvious cognitive deficits. He reports a family history of bipolar in his mother and denies any episodes of talking very fast, decreased need for sleep, or making out of the normal reckless decisions. He denies suicidal or homicidal ideations and denies any audio or visual hallucinations. Review of Systems Respiratory: COMPLAINS OF: Shortness of breath Psychiatric: COMPLAINS OF: Anxiety Except as stated in HPI: all other systems reviewed are Neg Past Family Social History Coded Allergies: erythromycin base (Verified Allergy, Severe, Nausea/Vomiting, 10/03/17) raspberry (Unverified Allergy, Mild, 10/03/17) Active Scripts Methocarbamol (Methocarbamol) 500 Mg Tab, 500 MG PO QID, #28 1 Refill Prov:ARIADNE RUVALCABA M.D. R3 06/20/11 Naproxen (Naproxen) 500 Mg Tab, 500 MG PO BID, #20 0 Refills Prov:ARIADNE RUVALCABA M.D. R3 05/23/11 Fluticasone Propionate (Flovent Hfa) 44 Mcg Aero, 2 PUFF INH BID, #1 2 Refills Prov:ARIADNE RUVALCABA M.D. R3 05/23/11 Fexofenadine-Pseudoephedrine (Kelsie-D 24 Hour Allergy) 24 Hour Tab, 24 HOUR OR DAILY, #30 0 Refills Prov:ARIADNE RUVALCABA M.D. R3 05/23/11 Amoxicillin/Clavulanate K (Augmentin) 875 Mg Tab, 875 MG PO BID, #60 0 Refills Prov:ARIADNE RUVALCABA M.D. R3 05/23/11 Reported Medications Albuterol Sulfate (Proventil Mdi) 17 Gm Aero 11/15/07 Current Medications Medications (Trade) Dose Ordered Sig/Willem Route Start Time Stop Time Status Last Admin (NS Flush) 2 ml UNSCH PRN IV FLUSH 10/03/17 21:15 10/15/17 20:58 (NS Flush) 2 ml BID IV FLUSH 10/04/17 09:00 10/30/17 23:43 (Zofran Inj) 4 mg Q6H PRN IV PUSH 10/03/17 21:15 10/23/17 16:35 (Restoril) 15 mg HS PRN PO 10/03/17 21:15 10/27/17 20:29 Miscellaneous Information 1 Q361D XX 10/03/17 21:15 (Chlorhexidine 2% Cloth) Taper DAILY@04 TOP 10/04/17 04:00 09/30/18 03:59 10/26/17 21:40 (Chlorhexidine 2% Cloth) 3 pack UNSCH PRN TOP 10/03/17 21:15 (Renita-Colace) 1 tab BID PO 10/04/17 09:00 10/29/17 08:37 (Senokot) 17.2 mg Q12H PRN PO 10/03/17 21:15 (Dulcolax Supp) 10 mg DAILY PRN RECTAL 10/03/17 21:15 10/11/17 17:08 (Lactulose Liq) 30 ml DAILY PRN PO 10/03/17 21:15 10/11/17 17:08 (Flovent Hfa 44 Mcg Inh) 2 puff BID INH 10/04/17 09:00 10/30/17 23:43 (Peridex 0.12% Liq) 15 ml BID@08,20 MT 10/04/17 20:00 10/28/17 08:00 Sodium Chloride 1,000 ml @ 0 mls/hr Q0M PRN OTHER 10/08/17 10:33 10/25/17 10:39 (Heparin Inj) 8,000 units UNSCH PRN IV FLUSH 10/08/17 10:45 Sodium Chloride 1,000 ml @ 200 mls/hr Q5H PRN IV 10/08/17 11:15 10/11/17 08:57 Sodium Chloride 1,000 ml @ 0 mls/hr Q0M PRN OTHER 10/08/17 11:15 (Mannitol Inj) 12.5 gm UNSCH PRN IV 10/08/17 11:15 Albumin Human 100 ml @ 60 mls/hr UNSCH PRN IV 10/08/17 11:30 10/30/17 12:07 (NS Flush) 5 ml UNSCH PRN IV FLUSH 10/08/17 11:15 10/25/17 10:40 (Heparin Inj) UNSCH PRN .XX 10/08/17 11:15 10/30/17 12:06 (Gentamicin Inj) 20 mg UNSCH PRN OTHER 10/08/17 11:15 10/30/17 12:06 (Zofran Inj) 4 mg UNSCH PRN IV PUSH 10/08/17 11:15 (Nitrostat Sl) 0.4 mg UNSCH PRN SL 10/08/17 11:30 (Catapres) 0.1 mg UNSCH PRN PO 10/08/17 11:30 (Epogen Inj) 10,000 units UNSCH PRN IV PUSH 10/08/17 11:30 10/30/17 12:06 (Gelfoam 12 Mm/7 Mm Top) 1 foam UNSCH PRN TOP 10/08/17 11:30 (Lactinex) 1 tab TID PO 10/17/17 13:00 10/30/17 17:32 (Duragesic 100 Mcg Patch.72 Hr) 1 patch Q3D T-DERMAL 10/18/17 12:00 10/30/17 13:22 Miscellaneous Information 1 Q3D T-DERMAL 10/21/17 12:00 10/30/17 12:00 (Santyl Oint) 1 applic DAILY TOPICAL 10/20/17 16:00 10/29/17 08:38 (Albuterol Neb) 2.5 mg Q2HR NEB PRN NEB 10/21/17 13:30 10/30/17 20:43 (Protonix) 40 mg Q12HR PO 10/21/17 21:00 10/30/17 23:41 (Heparin Inj) 5,000 units Q12HR SQ 10/21/17 21:00 10/30/17 23:42 (Phoslo) 667 mg TID PO 10/23/17 13:00 10/30/17 17:32 Cefazolin Sodium 1000 mg/Sodium Chloride 100 ml @ 200 mls/hr Q12H IV 10/24/17 03:00 10/31/17 04:06 (Haldol Inj) 5 mg Q4H PRN IV PUSH 10/23/17 23:30 10/26/17 23:39 (Lopressor) 25 mg Q8HR PO 10/25/17 22:00 10/30/17 23:41 (Sodium Chloride) 1 gm DAILY PO 10/26/17 09:00 10/29/17 08:37 (Ferrous Sulfate) 325 mg BID@12,17 PO 10/27/17 12:00 10/30/17 17:32 Cefepime HCl 2000 mg/Sodium Chloride 100 ml @ 200 mls/hr Q48H IV 10/30/17 16:00 10/30/17 17:32 (Zyvox) 600 mg Q12HR PO 10/30/17 14:00 10/30/17 23:41 (Tylenol) 500 mg Q6HR PO 10/31/17 00:00 10/31/17 05:17 (Roxicodone) 5 mg Q6H PRN PO 10/30/17 20:00 10/31/17 01:03 (Neurontin) 200 mg Q12HR PO 10/30/17 21:00 10/30/17 23:41 (Cymbalta Dr) 20 mg DAILY PO 10/31/17 09:00 UNV (Zanaflex) 2 mg Q8HR PO 10/30/17 22:00 10/31/17 05:18 (Benadryl Liq) 12.5 mg Q4H PRN PO 10/30/17 21:45 Family Psych History Mother is bipolar Social History Patient is unemployed, he lives at home with his parents, he has a fianc Patient's Strengths (min. 2) Verbal communication Physical Exam Patient his hypoactive, seems to be Of Fatigue, but No EPS, No Tremors Vital Signs Vital Signs Date Time Temp Pulse Resp B/P (MAP) Pulse Ox O2 Delivery O2 Flow Rate FiO2 10/31/17 10:15 88/49 (62) 10/31/17 08:00 Nasal Cannula 3.00 10/31/17 08:00 97.2 105 14 94 I/O 10/31/17 10/31/17 11/01/17 08:00 16:00 00:00 Intake Total 960 ml Balance 960 ml Lab Results Test 10/31/17 06:15 White Blood Count 13.5 TH/MM3 Red Blood Count 2.73 MIL/MM3 Hemoglobin 8.1 GM/DL Hematocrit 23.6 % Mean Corpuscular Volume 86.5 FL Mean Corpuscular Hemoglobin 29.5 PG Mean Corpuscular Hemoglobin Concent 34.2 % Red Cell Distribution Width 19.9 % Platelet Count 100 TH/MM3 Mean Platelet Volume 7.9 FL Neutrophils (%) (Auto) 79.3 % Lymphocytes (%) (Auto) 8.0 % Monocytes (%) (Auto) 9.2 % Eosinophils (%) (Auto) 2.7 % Basophils (%) (Auto) 0.8 % Neutrophils # (Auto) 10.7 TH/MM3 Lymphocytes # (Auto) 1.1 TH/MM3 Monocytes # (Auto) 1.2 TH/MM3 Eosinophils # (Auto) 0.4 TH/MM3 Basophils # (Auto) 0.1 TH/MM3 CBC Comment DIFF FINAL Differential Comment Blood Urea Nitrogen 35 MG/DL Creatinine 5.52 MG/DL Random Glucose 87 MG/DL Calcium Level 8.1 MG/DL Sodium Level 130 MEQ/L Potassium Level 3.7 MEQ/L Chloride Level 92 MEQ/L Carbon Dioxide Level 23.9 MEQ/L Anion Gap 14 MEQ/L Estimat Glomerular Filtration Rate 13 ML/MIN Date/Time Source Procedure Growth Status 10/18/17 15:40 Blood Peripheral Aerobic Blood Culture - Final NO GROWTH IN 5 DAYS Complete 10/18/17 15:40 Blood Peripheral Anaerobic Blood Culture - Final NO GROWTH IN 5 DAYS Complete 10/09/17 12:00 Fluid Pleural Fluid Fungal Smear - Final NO FUNGAL ELEMENTS SEEN. Resulted 10/09/17 12:00 Fluid Pleural Fluid Fungal Culture - Preliminary NO GROWTH IN 3 WEEKS Resulted 10/16/17 12:55 Sputum Endotracheal Gram Stain - Final Complete 10/16/17 12:55 Sputum Endotracheal Sputum Culture - Final RARE GROWTH NORMAL RESPIRATORY RHIANNON Complete 10/03/17 21:30 Urine Random Urine Legionella Antigen - Final PRESUMPTIVE NEGATIVE FOR LEGIONELLA P... Complete 10/03/17 21:30 Urine Random Urine Streptococcus pneumoniae Antigen (M - Final PRESUMPTIVE NEGATIVE FOR STREPTOCOCCU... Complete Mental Status Examination Appearance: Appropriate Consciousness: Alert Orientation: x4 Motor Activity: Normal gait Speech: Unremarkable Language: Adequate Fund of Knowledge: Adequate Attention and Concentration: Adequate Memory: Unremarkable Mood: Oppositional Affect: Irritable Thought Process & Associations: Intact Thought Content: Appropriate Hallucination Type: None Delusion Type: None Suicidal Ideation: No Suicidal Plan: No Suicidal Intention: No Homicidal Ideation: No Homicidal Plan: No Homicidal Intention: No Insight: Poor Judgment: Impulsive Assessment & Plan Problem List: (1) Sepsis ICD Codes: A41.9 - Sepsis, unspecified organism Status: Acute (2) SAIMA (generalized anxiety disorder) ICD Codes: F41.1 - Generalized anxiety disorder Assessment & Plan: This patient is a 27y/o male with no past psychiatric hospitalization, 4 suicide attempts- most recent was 3 years ago, a hx of polysubstance abuse, a medical history of asthma, bacterial endocarditis with septic emboli, anemia requiring transfusion, ZEUS, Hepatitis C, and elevated AST. He is domiciled in [place] with his mother and father, unemployed, has a girlfriend, and high school is highest level of education. The patient reports an extensive history of polysubstance abuse since the age of 14. He also admits to feeling anxious for most of his life, mostly when around other people. He has issues with focusing, sleeping, becoming irritated, feeling restless, and worrying. This has been going on since before the hospital so it is not likely to be adjustment disorder. He reports that after he leaves the hospital he wants "to get my life on track". He denies any suicidal or homicidal ideations. He has no outpatient psychiatric care and reports never taking any psychiatric medications. Due to his anxiety and mild depression, he will benefit from correction SNRI therapy with Cymbalta 60 mg PO daily. He will also benefit from Hydroxyzine 50mg POQ6 hours as needed for acute anxiety in the hospital. will increase Gabapentin to 300 mg tid to help with anxiety. Due to his history of drug abuse, benzodiazepines are not a good option. Brief psychotherapy and psychoeducation was provided. The patient does not meet criteria for psychiatric admission at this time. Consult appreciated. Assessment & Plan Estimated LOS: days Problem Qualifiers (1) Sepsis: Qualified Codes: A41.9 - Sepsis, unspecified organism Timothy Graves MD Oct 31, 2017 12:11
[2017-10-31] MEDS: LINEZOLID 600 MG TAB PO SCH ×2 (12:27→21:38)
[2017-10-31] MEDS: SODIUM CHLORIDE 1 GRAM TAB PO SCH (12:27)
[2017-10-31] MEDS: FERROUS SULFATE 325 MG (65 MG ELEMENTAL IRON) TAB PO SCH ×2 (12:27→17:49)
[2017-10-31] MEDS: PANTOPRAZOLE SOD 40 MG DELAYED RELEASE TAB PO SCH ×2 (12:28→21:38)
[2017-10-31] MEDS: SODIUM CHLORIDE 0.9% FLUSH 10 ML FLUSH IV FLUSH SCH ×2 (12:29→21:38)
[2017-10-31] MEDS: COLLAGENASE OINT 30 GM TUBE TOPICAL SCH (12:30)
[2017-10-31] MEDS: HEPARIN SODIUM - SQ 10,000 UNITS/ML VIAL SQ SCH ×2 (12:30→21:40)
[2017-10-31] MEDS: FLUTICASONE PROPIONATE 44 MCG/ACT 10.6 GM INHALER INH SCH ×2 (12:30→21:39)
[2017-10-31] MEDS: RESP: ALBUTEROL 2.5 MG/3 ML NEB (PRN) NEB (13:20)
[2017-10-31] MEDS: GABAPENTIN 100 MG CAP PO SCH (17:48)
[2017-10-31] MEDS: hydrOXYzine HCL 25 MG TAB PO PRN (18:16)
[2017-11-01] VITALS: BP 102/54; PULSE 118; PULSE 120; RESP 20; TEMP 98; O2SAT 93
[2017-11-01] MEDS: CHLORHEXIDINE GLUCONATE 2 % 1 PACK (2 CLOTHS) TOP SCH (03:41)
[2017-11-01 04:00] VITALS: BP 91/53; PULSE 106; PULSE 112; RESP 20; TEMP 98.7; O2SAT 92
[2017-11-01] MEDS: hydrOXYzine HCL 25 MG TAB PO PRN ×2 (04:35→20:19)
[2017-11-01] MEDS: ACETAMINOPHEN 500 MG CPLT PO SCH ×4 (05:56→23:59)
[2017-11-01] MEDS: METOPROLOL TARTRATE 25 MG TAB PO SCH ×3 (05:56→22:00)
[2017-11-01 08:00] VITALS: PULSE 113; PULSE 115; RESP 18; TEMP 98.5; O2SAT 96
[2017-11-01] MEDS: CHLORHEXIDINE 0.12% (ORAL KIT) 15 ML CUP MT SCH ×2 (08:00→20:00)
[2017-11-01] MEDS ORDERED: SODIUM CHLOR 0.9% 250 ML INJ 250 ML IV ONE (08:30)
[2017-11-01] MEDS ORDERED: DULoxetine HCl DR 30 MG CAP PO SCH (09:00)
[2017-11-01] MEDS: DOCUSATE SODIUM 50 MG/SENNA 8.6 MG TAB PO SCH ×2 (09:00→20:16)
[2017-11-01] MEDS: LACTOBACILLUS ACIDOPHILUS TAB PO SCH ×3 (09:05→17:51)
[2017-11-01] MEDS: GABAPENTIN 100 MG CAP PO SCH ×3 (09:05→17:51)
[2017-11-01] MEDS: LINEZOLID 600 MG TAB PO SCH ×2 (09:05→20:18)
[2017-11-01] MEDS: CALCIUM ACETATE 667 MG CAP PO SCH ×3 (09:05→17:51)
[2017-11-01] MEDS: SODIUM CHLORIDE 1 GRAM TAB PO SCH (09:05)
[2017-11-01] MEDS: PANTOPRAZOLE SOD 40 MG DELAYED RELEASE TAB PO SCH ×2 (09:05→20:19)
[2017-11-01] MEDS: SODIUM CHLORIDE 0.9% FLUSH 10 ML FLUSH IV FLUSH SCH ×2 (09:06→20:17)
[2017-11-01] MEDS: HEPARIN SODIUM - SQ 10,000 UNITS/ML VIAL SQ SCH ×2 (09:06→20:17)
[2017-11-01] MEDS: FLUTICASONE PROPIONATE 44 MCG/ACT 10.6 GM INHALER INH SCH ×2 (09:06→20:17)
[2017-11-01] MEDS: COLLAGENASE OINT 30 GM TUBE TOPICAL SCH (09:07)
--- NOTE | 2017-11-01 09:58 | HHI.PR ---
Subjective Remarks Follow-up on endocarditis. No deteriorations overnight per nursing. However nursing did note that the patient did have a low blood pressure of 70/50 where the patient was asymptomatic. He was noted to be saturating on room air at one point this morning since the patient does like to take off his nasal cannula quite frequently. His blood pressure did respond nicely to a one-time bolus of 250 cc with a systolic rising to 120. Patient himself says he feels a little nauseated but overall okay. Objective Vital Signs Date Time Temp Pulse Resp B/P (MAP) Pulse Ox O2 Delivery O2 Flow Rate FiO2 11/01/17 08:00 98.5 113 18 96 11/01/17 04:00 106 11/01/17 04:00 98.7 112 20 91/53 (66) 92 11/01/17 00:00 120 11/01/17 00:00 98.0 118 20 102/54 (70) 93 10/31/17 20:00 98.0 110 20 91/56 (68) 96 10/31/17 19:54 110 10/31/17 19:00 Nasal Cannula 3.00 10/31/17 16:18 109 10/31/17 16:00 98.3 112 22 107/58 (74) 96 10/31/17 16:00 Nasal Cannula 3.00 10/31/17 12:23 104 10/31/17 12:00 Nasal Cannula 3.00 10/31/17 12:00 97.6 101 24 91/53 (66) 97 10/31/17 10:15 88/49 (62) I/O 10/31/17 10/31/17 10/31/17 11/01/17 11/01/17 11/01/17 07:00 15:00 23:00 07:00 15:00 23:00 Intake Total 960 ml 100 ml Balance 960 ml 100 ml Intake Oral 960 ml IV Total 100 ml # Voids 0 # Bowel Movements 0 1 Result Diagram: 10/31/1715 10/31/17 0615 Objective Remarks Systolic gallop heard S1-S2, unlabored breathing, no lower extremity edema, lying in bed, awake, alert, no acute distress A/P Assessment and Plan Acute hypoxemic respiratory failure - improving - acute systolic HF with increase in bilateral infiltrates, right greater than left, noted on independent review of 10/30 chest x-ray; no clinical deterioration has been correlated however. white count decreasing Extensive septic emboli, consolidation of the lung Loculated left effusion, large right effusion - Extubated 10/17 (Self extubated while on CPAP for planned extubation) - IR placed left chest tube 10/06 with more than 1 L exudative fluid out. Removed 10/20 - right-sided pigtail chest tube at the bedside 10/09, brown tinged fluid approximately 1.1 L initial output, now output is minimum. Removed right chest tube 10/18/17. - Broad-spectrum antibiotics per ID, see below - Incentive spirometry while awake/Albuterol/ipratropium aerosols as well as EzPAP - Fluticasone Large tricuspid valve vegetation Small pericardial effusion Acute systolic heart failure Mild pulmonary hypertension - Bedside echo shows large tricuspid vegetation. repeat bedside echo today 10/18 similar size - Cardiology and CT surgery has followed. D/W Dr. Charles declined surgery due to active IV drug use, multiple medical complications. Discussed with [facility] who agreed with plan of our cardiothoracic surgeon. [facility] administration has denied the patient as well per CM. - CARMEN 10/04: EF 45-50 %. Large mobile vegetation on tricuspid valve, 2 separate vegetations 2.1 x 3.2 cm and 2.6 x 0.8 cm. PIP 40.7 mmHg -Echo 10/20 -EF 35-40%. Tricuspid valve vegetation Currently on metoprolol tartrate 25 mg p.o. every 8 hours IVDU switched morhine 2mg q4hr to dilaudid 0.5 IV q6hrs prn breakthrough. Added norco 10/325 po q6hrs prn pain 6-10 instead of morphine Continue Fentanyl patch 75 mcg every 72 hours. Taper as tolerated. Palliative care following. Dr. Barry gave recs regarding pain regimen. Hepatosplenomegaly Diarrhea Hypoalbuminemia Hepatitis C genotype 1A Elevated ceruloplasmin MARTÍN + diffuse Elevated total bilirubin Elevated AST -Pantoprazole - Hepatitis C reactive. Genotype 1a Viral load 10,700 Hepatic ultrasound revealed hepatosplenomegaly.. CT abdomen/pelvis 10/24 revealed no obvious hepatic, pancreatic, nephrotic versus musculoskeletal source. Hepatosplenomegaly. Moderate ascites. Anasarca. CPK and troponin normal. Acute kidney failure with fluid overload - on hemodialysis 10/08,above. - Continue intermittent HD for fluid removal. - 10/14-removed vas catheter. Replaced on 10/16 Tricuspid and pulmonic valve endocarditis Septic emboli to the lung Severe sepsis MSSA bacteremia - Discussed with Dr. Charles CT surgery 10/05/17, 10/19, deemed not a surgical candidate - Cefazolin per ID Dr. Macias. 10/22 discontinued vancomycin 125 mg 4 times daily. / discontinue rifampin due to elevated AST. Currently on zyvox and cefepime IV - Persistent MSSA bacteremia 10/04, 10/05 10/07 blood cultures, cultures reviewed. Blood cultures from 10/13 negative; has been afebrile recently. Anemia requiring transfusion Leukocytosis Normocytic anemia - currently stable - LDH mildly elevated and haptoglobin normal, Transfusion 1u PRBC on 10/14, 10/17 and 10/23 and 10/25 - Thrombocytopenia most likely from sepsis and DIC has resolved PT following Hyponatremia nephrology managing, suspect 09/26 CHF Discharge Planning Pt has no payor source. Pt currently on HD. ID, palliative care, [facility] following; no outside accepting facility. not a surgical candidate. Continue abx as only option for tx at this time although it may seem futile; pt not on board with transition to palliative care at this time. Nicolas Dorman MD Nov 01, 2017 09:58
--- NOTE | 2017-11-01 10:19 | HHI.NPPN ---
Subjective Complaints: Shortness of Breath Renal Failure: Acute History of Present Illness Patient is 27-year-old male who reported to ER with body aches, 7 days of diarrhea with development fever. Past medical history of IV drug use. Patient is sedated and ventilated FiO2 at 40 %. Nephrology is consulted for ZEUS and fluid over load status. Patients creatinine is 3.02 and GFR 25ml/min. Patient is UOP at 800cc for last 24 hours. Weight has increased by over 10 kg since admission. IVF's have been stopped and lasix has been given. Patient has endocarditis with large tricuspid valve vegetation, and pulmonic vegetation. Noted to have bacteremia with hypotension with SBP in the 90's. Additional Remarks Patient seen during HD, no SOB, no abd. pain. Review of Systems Respiratory Lungs: SOB Respiratory Remarks mild Cardiovascular Cardiac Remarks denies CP Psych Psych: Depression, Anxiety Objective Data Data Vital Signs Date Time Temp Pulse Resp B/P (MAP) Pulse Ox O2 Delivery O2 Flow Rate FiO2 11/01/17 08:00 98.5 113 18 96 11/01/17 04:00 106 11/01/17 04:00 98.7 112 20 91/53 (66) 92 11/01/17 00:00 120 11/01/17 00:00 98.0 118 20 102/54 (70) 93 10/31/17 20:00 98.0 110 20 91/56 (68) 96 10/31/17 19:54 110 10/31/17 19:00 Nasal Cannula 3.00 10/31/17 16:18 109 10/31/17 16:00 98.3 112 22 107/58 (74) 96 10/31/17 16:00 Nasal Cannula 3.00 10/31/17 12:23 104 10/31/17 12:00 Nasal Cannula 3.00 10/31/17 12:00 97.6 101 24 91/53 (66) 97 -: 10/31/17 0615 10/31/17 0615 Tubes & Lines: Vas-Cath Physical Exam General Appearance: No Acute Distress, Comfortable Eyes Eye Exam: Pupils Equal Pulmonary Resp Exam: Decreased Bases, Diminished Breath Sounds Cardiology CV Exam: Tachycardia Gastrointestinal/Abdomen GI Exam: Soft, Non-Tender, Bowel Sounds Present, Distended Integumentary Skin Exam: Clear, Warm Extremeties Extremities Exam: Moderate Edema Neurologic Neuro Exam: Alert, Awake Psychiatric Psych Exam: Appropriate Responses Assessment/Plan Assessment Summary: ZEUS/Acute Renal Failure Electrolyte Assessment: Hyponatremia Problem List: (1) ZEUS (acute kidney injury) ICD Codes: N17.9 - Acute kidney failure, unspecified Plan: ZEUS most likely ATN from sepsis and low blood pressure. Other differential will be ATN, Acute interstitial nephritis, and Post infectious GN,unlikely. HD started on 10/08 Plan Avoid nephrotoxins. Anemia continue Epogen with dialysis Follow the urine out put and BMP. Watch for renal recovery, now eating better. HD now, urine out put is low. BP is on lower side. (2) Sepsis ICD Codes: A41.9 - Sepsis, unspecified organism Status: Acute Plan: Antibiotics per ID (3) Endocarditis ICD Codes: I38 - Endocarditis, valve unspecified Status: Acute Problem Qualifiers (1) Sepsis: Qualified Codes: A41.9 - Sepsis, unspecified organism (2) Endocarditis: Darek Tapia MD Nov 01, 2017 10:19
[2017-11-01] MEDS: EPOETIN ALFA 10,000 UNITS/ML VIAL IV PUSH PRN (12:41)
[2017-11-01] MEDS: ALBUMIN 25% INJ 100 ML IV PRN (12:42)
[2017-11-01] MEDS: GENTAMICIN SULFATE 20 MG/2 ML VIAL OTHER PRN (12:42)
[2017-11-01] MEDS: HEPARIN SODIUM - IV 10,000 UNITS/10 ML VIAL PRN (12:42)
[2017-11-01] MEDS: FERROUS SULFATE 325 MG (65 MG ELEMENTAL IRON) TAB PO SCH ×2 (14:12→17:50)
--- NOTE | 2017-11-01 14:47 | HHI.IDPN ---
Subjective Subjective Remarks ID COVERAGE is a 27 y/o CM with remote history of IV drug abuse, states he last used heroin 2 months ago, presents for evaluation of body aches, 7 days of diarrhea with development of subjective fever yesterday. Patient denies any nausea or vomiting. He denies any chest pain. This has developed within the last 24 hours. Patient does have a cough with clear sputum. Denies any prior history of endocarditis. Denies any abdominal pain. Does report some left back pain, worse while lying flat. He is well reports generalized weakness. Patient met criteria for sepsis on admission. Flu antigen negative. CXR with bilateral infiltrates. performed a bedside 2D ECHO and verbally reported a large ~4.5 cm vegetation on TV. CXR suspicious for septic emboli. Blood cultures drawn but it appears patient has received augmentin at some point and cultures may possibly be negative. ID is following for evaluation and M'ment of Severe Sepsis and Endocarditis. Notes reviewed Temps ok Had HD today, took out 1L SOB better On nasal O2 BP ok No rash No diarrhea CXR 10/30 with increased infiltrates Antibiotics Current Medications Ancef Cefepime Zyvox Medications (Trade) Dose Ordered Sig/Willem Route Start Time Stop Time Status Last Admin (NS Flush) 2 ml UNSCH PRN IV FLUSH 10/03/17 21:15 10/15/17 20:58 (NS Flush) 2 ml BID IV FLUSH 10/04/17 09:00 11/01/17 09:06 (Zofran Inj) 4 mg Q6H PRN IV PUSH 10/03/17 21:15 10/23/17 16:35 (Restoril) 15 mg HS PRN PO 10/03/17 21:15 10/27/17 20:29 Miscellaneous Information 1 Q361D XX 10/03/17 21:15 (Chlorhexidine 2% Cloth) Taper DAILY@04 TOP 10/04/17 04:00 09/30/18 03:59 10/26/17 21:40 (Chlorhexidine 2% Cloth) 3 pack UNSCH PRN TOP 10/03/17 21:15 (Renita-Colace) 1 tab BID PO 10/04/17 09:00 10/29/17 08:37 (Senokot) 17.2 mg Q12H PRN PO 10/03/17 21:15 (Dulcolax Supp) 10 mg DAILY PRN RECTAL 10/03/17 21:15 10/11/17 17:08 (Lactulose Liq) 30 ml DAILY PRN PO 10/03/17 21:15 10/11/17 17:08 (Flovent Hfa 44 Mcg Inh) 2 puff BID INH 10/04/17 09:00 11/01/17 09:06 (Peridex 0.12% Liq) 15 ml BID@08,20 MT 10/04/17 20:00 10/28/17 08:00 Sodium Chloride 1,000 ml @ 0 mls/hr Q0M PRN OTHER 10/08/17 10:33 10/25/17 10:39 (Heparin Inj) 8,000 units UNSCH PRN IV FLUSH 10/08/17 10:45 Sodium Chloride 1,000 ml @ 200 mls/hr Q5H PRN IV 10/08/17 11:15 10/11/17 08:57 Sodium Chloride 1,000 ml @ 0 mls/hr Q0M PRN OTHER 10/08/17 11:15 (Mannitol Inj) 12.5 gm UNSCH PRN IV 10/08/17 11:15 Albumin Human 100 ml @ 60 mls/hr UNSCH PRN IV 10/08/17 11:30 11/01/17 12:42 (NS Flush) 5 ml UNSCH PRN IV FLUSH 10/08/17 11:15 10/25/17 10:40 (Heparin Inj) UNSCH PRN .XX 10/08/17 11:15 11/01/17 12:42 (Gentamicin Inj) 20 mg UNSCH PRN OTHER 10/08/17 11:15 11/01/17 12:42 (Zofran Inj) 4 mg UNSCH PRN IV PUSH 10/08/17 11:15 (Nitrostat Sl) 0.4 mg UNSCH PRN SL 10/08/17 11:30 (Catapres) 0.1 mg UNSCH PRN PO 10/08/17 11:30 (Epogen Inj) 10,000 units UNSCH PRN IV PUSH 10/08/17 11:30 11/01/17 12:41 (Gelfoam 12 Mm/7 Mm Top) 1 foam UNSCH PRN TOP 10/08/17 11:30 (Lactinex) 1 tab TID PO 10/17/17 13:00 11/01/17 14:12 (Duragesic 100 Mcg Patch.72 Hr) 1 patch Q3D T-DERMAL 10/18/17 12:00 10/30/17 13:22 Miscellaneous Information 1 Q3D T-DERMAL 10/21/17 12:00 10/30/17 12:00 (Santyl Oint) 1 applic DAILY TOPICAL 10/20/17 16:00 11/01/17 09:07 (Albuterol Neb) 2.5 mg Q2HR NEB PRN NEB 10/21/17 13:30 10/31/17 13:20 (Protonix) 40 mg Q12HR PO 10/21/17 21:00 11/01/17 09:05 (Heparin Inj) 5,000 units Q12HR SQ 10/21/17 21:00 11/01/17 09:06 (Phoslo) 667 mg TID PO 10/23/17 13:00 11/01/17 14:12 Cefazolin Sodium 1000 mg/Sodium Chloride 100 ml @ 200 mls/hr Q12H IV 10/24/17 03:00 11/01/17 03:41 (Haldol Inj) 5 mg Q4H PRN IV PUSH 10/23/17 23:30 10/26/17 23:39 (Lopressor) 25 mg Q8HR PO 10/25/17 22:00 10/30/17 23:41 (Sodium Chloride) 1 gm DAILY PO 10/26/17 09:00 11/01/17 09:05 (Ferrous Sulfate) 325 mg BID@12,17 PO 10/27/17 12:00 11/01/17 14:12 Cefepime HCl 2000 mg/Sodium Chloride 100 ml @ 200 mls/hr Q48H IV 10/30/17 16:00 10/30/17 17:32 (Zyvox) 600 mg Q12HR PO 10/30/17 14:00 11/01/17 09:05 (Tylenol) 500 mg Q6HR PO 10/31/17 00:00 11/01/17 14:13 (Roxicodone) 5 mg Q6H PRN PO 10/30/17 20:00 10/31/17 21:38 (Zanaflex) 2 mg Q8HR PO 10/30/17 22:00 11/01/17 14:12 (Cymbalta Dr) 60 mg DAILY PO 11/01/17 09:00 Future Hold (Neurontin) 300 mg TID PO 10/31/17 18:00 11/01/17 14:12 (Atarax) 50 mg Q8H PRN PO 10/31/17 17:15 11/01/17 04:35 Lines Line sites with no e.o infection Past Medical History Asthma HCV Past Surgical History No surgical history per records. Allergies: Coded Allergies: erythromycin base (Verified Allergy, Severe, Nausea/Vomiting, 10/03/17) raspberry (Unverified Allergy, Mild, 10/03/17) Objective . Vital Signs Date Time Temp Pulse Resp B/P (MAP) Pulse Ox O2 Delivery O2 Flow Rate FiO2 11/01/17 09:30 4.00 11/01/17 08:00 98.5 113 18 96 11/01/17 04:00 106 11/01/17 04:00 98.7 112 20 91/53 (66) 92 11/01/17 00:00 120 11/01/17 00:00 98.0 118 20 102/54 (70) 93 10/31/17 20:00 98.0 110 20 91/56 (68) 96 10/31/17 19:54 110 10/31/17 19:00 Nasal Cannula 3.00 10/31/17 16:18 109 10/31/17 16:00 98.3 112 22 107/58 (74) 96 10/31/17 16:00 Nasal Cannula 3.00 11/01/17 11/01/17 11/02/17 15:00 23:00 07:00 Intake Total 250 ml Output Total 1000 ml Balance -750 ml IV Total 250 ml Hemodialysis 1000 ml . Laboratory Tests Test 10/31/17 06:15 White Blood Count 13.5 TH/MM3 Red Blood Count 2.73 MIL/MM3 Hemoglobin 8.1 GM/DL Hematocrit 23.6 % Mean Corpuscular Volume 86.5 FL Mean Corpuscular Hemoglobin 29.5 PG Mean Corpuscular Hemoglobin Concent 34.2 % Red Cell Distribution Width 19.9 % Platelet Count 100 TH/MM3 Mean Platelet Volume 7.9 FL Neutrophils (%) (Auto) 79.3 % Lymphocytes (%) (Auto) 8.0 % Monocytes (%) (Auto) 9.2 % Eosinophils (%) (Auto) 2.7 % Basophils (%) (Auto) 0.8 % Neutrophils # (Auto) 10.7 TH/MM3 Lymphocytes # (Auto) 1.1 TH/MM3 Monocytes # (Auto) 1.2 TH/MM3 Eosinophils # (Auto) 0.4 TH/MM3 Basophils # (Auto) 0.1 TH/MM3 CBC Comment DIFF FINAL Differential Comment Laboratory Tests Test 10/31/17 06:15 Blood Urea Nitrogen 35 MG/DL Creatinine 5.52 MG/DL Random Glucose 87 MG/DL Calcium Level 8.1 MG/DL Sodium Level 130 MEQ/L Potassium Level 3.7 MEQ/L Chloride Level 92 MEQ/L Carbon Dioxide Level 23.9 MEQ/L Anion Gap 14 MEQ/L Estimat Glomerular Filtration Rate 13 ML/MIN Imaging Chest X-Ray 10/30/17 0000 Signed Impressions: Service Date/Time: October 17:04 - CONCLUSION: Increasing bilateral scattered pulmonary infiltrates compared to the prior study. Victorino Vang MD Liver Ultrasound 10/24/17 0000 Signed Impressions: Service Date/Time: Tuesday, October 24, 2017 16:43 - CONCLUSION: Hepatosplenomegaly with ascites. Echogenic kidney Madi Mccartney MD Abdomen/Pelvis CT 10/24/17 0000 Signed Impressions: Service Date/Time: Tuesday, October 24, 2017 21:37 - CONCLUSION: 1. Hepatosplenomegaly. 2. Moderate amount of ascites. 3. Diffuse anasarca. 4. Bibasilar pleural effusions and scattered infiltrates. Khoi Padilla MD Tunnelled Chest Tube Removal 10/20/17 0000 Signed Impressions: Service Date/Time: Friday, October 20, 2017 00:00 - CONCLUSION: Uncomplicated chest tube removal. Madi Mccartney MD Chest CT 10/14/17 0000 Signed Impressions: Service Date/Time: Saturday, October 14, 2017 00:26 - CONCLUSION: 1. Bilateral scattered pulmonary nodules are again noted. Several of the right nodules are now cavitary and likely represent septic emboli given the history of IV drug abuse. 2. Interval placement of bilateral chest tubes with small pleural effusions noted. 3. Dense consolidation remains in the posterior lower lobes. Jorge Jang MD Upper Extremity Ultrasound 10/13/17 0000 Signed Impressions: Service Date/Time: Friday, October 13, 2017 11:25 - CONCLUSION: Normal examination. Christian Kaur MD Abdomen X-Ray 10/10/17 0000 Signed Impressions: Service Date/Time: Tuesday, October 10, 2017 16:46 - CONCLUSION: Negative for free air or obstruction. Rahul Yarbrough MD FACR Chest Tube Insertion 10/06/17 0000 Signed Impressions: Service Date/Time: Friday, October 06, 2017 15:37 - CONCLUSION: Uncomplicated chest tube placement as above. Emerson Hui MD Physical Exam GENERAL: Awake, and following commands, sitting at side of the bed, looks comfortable at rest SKIN: No generalized rash. Cool and dry. Multiple tattoos. HEAD: Atraumatic. Normocephalic. No temporal or scalp tenderness. EYES: Pupils equal round and reactive. Extraocular motions intact. No petechia, no hemorrhage ENT: Moist oral mucosa, no nasal drainage NECK: Trachea midline. Supple, nontender, no meningeal signs. CARDIOVASCULAR: Has systolic murmur RESPIRATORY: Decreased air entry bilaterally bases. Rales bilaterally. GASTROINTESTINAL: Abdomen soft, not tender, (+) BS, distended. MUSCULOSKELETAL: Extremities without clubbing, cyanosis. Mild pedal edema. No embolic lesion seen. NEUROLOGICAL: Awake, follows commands Psych cooperative IV line sites with no e.o infection. 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 Pneumonia: septic emboli, aspiration pneumonia. Respiratory failure, self extubated 10/17 IVDA: heroin, cocaine and methamphetamine. Acute renal failure: Sepsis, meds,contrast. - on HD Abnormal LFTs: ? Rifampin induced vs volume overload related. Recs: Continue Ancef IV (for MSSA TV endocarditis) Continue Cefepime IV (for possible HCAP given increased secretions and pneumonia on clinical exam) Continue Zyvox oral (for MRSA HCAP) Repeat CXR Friday to follow infiltrates ?repeat CT if breathing not better as well as check for ascites Monitor progress Chelsy Kramer MD Nov 01, 2017 14:47
[2017-11-01 15:45] LABS: ALBUMIN 3.2 GM/DL (3.4-5.0)
[2017-11-01 15:46] LABS: INDIRECT BILIRUBIN 0.6 MG/DL (0.0-0.8); TOTAL BILIRUBIN ADULT 1.6 MG/DL (0.2-1.0); TOTAL PROTEIN 8.6 GM/DL (6.4-8.2)
[2017-11-01 16:00] VITALS: PULSE 117; PULSE 121; RESP 18; TEMP 98.6; O2SAT 100
[2017-11-01] MEDS: CEFEPIME INJ 2,000 MG in SODIUM CHLORIDE 0.9% INJ 100 ML IV SCH (16:00)
[2017-11-01 20:00] VITALS: BP 134/73; PULSE 121; PULSE 123; RESP 20; TEMP 98; O2SAT 95
[2017-11-01 22:30] VITALS: O2SAT 96
[2017-11-02] VITALS (7 sets, daily range): BP systolic 86–99; BP diastolic 47–54; PULSE 96–116; RESP 16–22; TEMP 97.3–98.7; O2SAT 93–100
[2017-11-02] MEDS: CHLORHEXIDINE GLUCONATE 2 % 1 PACK (2 CLOTHS) TOP SCH (03:06)
[2017-11-02] MEDS: hydrOXYzine HCL 25 MG TAB PO PRN ×2 (04:36→13:38)
[2017-11-02] MEDS: METOPROLOL TARTRATE 25 MG TAB PO SCH ×3 (04:36→21:47)
[2017-11-02] MEDS: ACETAMINOPHEN 500 MG CPLT PO SCH ×4 (04:37→22:49)
[2017-11-02] MEDS: CHLORHEXIDINE 0.12% (ORAL KIT) 15 ML CUP MT SCH ×2 (07:47→20:00)
[2017-11-02] MEDS: DOCUSATE SODIUM 50 MG/SENNA 8.6 MG TAB PO SCH ×2 (09:00→21:00)
--- NOTE | 2017-11-02 10:16 | HHI.NPPN ---
Subjective Complaints: Shortness of Breath Renal Failure: Acute History of Present Illness Patient is 27-year-old male who reported to ER with body aches, 7 days of diarrhea with development fever. Past medical history of IV drug use. Patient is sedated and ventilated FiO2 at 40 %. Nephrology is consulted for ZEUS and fluid over load status. Patients creatinine is 3.02 and GFR 25ml/min. Patient is UOP at 800cc for last 24 hours. Weight has increased by over 10 kg since admission. IVF's have been stopped and lasix has been given. Patient has endocarditis with large tricuspid valve vegetation, and pulmonic vegetation. Noted to have bacteremia with hypotension with SBP in the 90's. Additional Remarks OOB in chair. Mild SOB and moderate lower extremity edema (Venus Barrett) Review of Systems Respiratory Lungs: SOB Respiratory Remarks mild (Venus Barrett) Cardiovascular Cardiac Remarks denies CP (Venus Barrett) Psych Psych: Depression, Anxiety (Venus Barrett) Objective Data Data Vital Signs Date Time Temp Pulse Resp B/P (MAP) Pulse Ox O2 Delivery O2 Flow Rate FiO2 11/02/17 08:00 97.3 104 16 91/54 (66) 97 11/02/17 04:00 98.7 113 20 86/47 (60) 94 11/02/17 04:00 Nasal Cannula 4.00 11/02/17 04:00 112 11/02/17 00:00 98.0 116 20 99/54 (69) 93 11/02/17 00:00 Nasal Cannula 4.00 11/01/17 22:30 96 Nasal Cannula 4.00 11/01/17 20:00 98.0 121 20 134/73 (93) 95 11/01/17 20:00 123 11/01/17 20:00 Nasal Cannula 3.00 11/01/17 16:00 121 11/01/17 16:00 Nasal Cannula 3.00 11/01/17 16:00 98.6 117 18 100 (Venus Barrett) -: 10/31/17 0615 10/31/17 0615 Tubes & Lines: Vas-Cath (Venus Barrett) Physical Exam General Appearance: No Acute Distress, Comfortable (Venus Barrett) Eyes Eye Exam: Pupils Equal (Venus Barrett) Pulmonary Resp Exam: Decreased Bases, Diminished Breath Sounds (Venus Barrett) Cardiology CV Exam: Tachycardia (Venus Barrett) Gastrointestinal/Abdomen GI Exam: Soft, Non-Tender, Bowel Sounds Present, Distended (Venus Barrett) Integumentary Skin Exam: Clear, Warm (Venus Barrett) Extremeties Extremities Exam: Moderate Edema (Venus Barrett) Neurologic Neuro Exam: Alert, Awake (Venus Barrett) Psychiatric Psych Exam: Appropriate Responses (Venus Barrett) Assessment/Plan Assessment Summary: ZEUS/Acute Renal Failure Electrolyte Assessment: Hyponatremia Problem List: (1) ZEUS (acute kidney injury) ICD Codes: N17.9 - Acute kidney failure, unspecified Plan: ZEUS most likely ATN from sepsis and low blood pressure. Other differential will be ATN, Acute interstitial nephritis, and Post infectious GN,unlikely. HD started on 10/08 Plan Avoid nephrotoxins. Anemia continue Epogen with dialysis Follow the urine out put and BMP. HD with 1 liter removed yesterday. Dialysis currently T// Watch for renal recovery (2) Sepsis ICD Codes: A41.9 - Sepsis, unspecified organism Status: Acute Plan: Antibiotics per ID (3) Endocarditis ICD Codes: I38 - Endocarditis, valve unspecified Status: Acute (Venus Barrett) Problem List: (1) ZEUS (acute kidney injury) ICD Codes: N17.9 - Acute kidney failure, unspecified Plan: ZEUS most likely ATN from sepsis and low blood pressure. Other differential will be ATN, Acute interstitial nephritis, and Post infectious GN,unlikely. HD started on 10/08 Plan Avoid nephrotoxins. Anemia continue Epogen with dialysis Follow the urine out put and BMP. HD with 1 liter removed yesterday. Dialysis currently T// Watch for renal recovery. Patient seen and examined, agree with above. HD as schedule and needed. (2) Sepsis ICD Codes: A41.9 - Sepsis, unspecified organism Status: Acute Plan: Antibiotics per ID (3) Endocarditis ICD Codes: I38 - Endocarditis, valve unspecified Status: Acute (Darek Tapia MD) Problem Qualifiers (1) Sepsis: Qualified Codes: A41.9 - Sepsis, unspecified organism (2) Endocarditis: Venus Barrett Nov 02, 2017 10:16 Darek Tapia MD Nov 02, 2017 22:46
[2017-11-02] MEDS: LINEZOLID 600 MG TAB PO SCH ×2 (10:51→21:43)
[2017-11-02] MEDS: CALCIUM ACETATE 667 MG CAP PO SCH ×3 (10:51→16:42)
[2017-11-02] MEDS: GABAPENTIN 100 MG CAP PO SCH ×3 (10:51→16:42)
[2017-11-02] MEDS: SODIUM CHLORIDE 1 GRAM TAB PO SCH (10:51)
[2017-11-02] MEDS: PANTOPRAZOLE SOD 40 MG DELAYED RELEASE TAB PO SCH ×2 (10:51→21:42)
[2017-11-02] MEDS: LACTOBACILLUS ACIDOPHILUS TAB PO SCH ×3 (10:51→16:42)
[2017-11-02] MEDS: SODIUM CHLORIDE 0.9% FLUSH 10 ML FLUSH IV FLUSH SCH ×2 (10:54→21:00)
[2017-11-02] MEDS: FLUTICASONE PROPIONATE 44 MCG/ACT 10.6 GM INHALER INH SCH ×2 (10:54→21:43)
[2017-11-02] MEDS: COLLAGENASE OINT 30 GM TUBE TOPICAL SCH (10:55)
[2017-11-02] MEDS: HEPARIN SODIUM - SQ 10,000 UNITS/ML VIAL SQ SCH ×2 (10:55→21:42)
--- NOTE | 2017-11-02 11:29 | HHI.PR ---
Subjective Remarks Follow-up on endocarditis. No deteriorations overnight per nursing except for that the patient had a mechanical fall by tripping on his blanket. When asked about this, he gets tearful and calls himself "an idiot." When asked if he would rather prefer comfort care even if it would mean that he could earlier , he verbally affirms that this is something he would be interested in as opposed to living longer with more suffering. Otherwise he has no new complaints. Objective Vital Signs Date Time Temp Pulse Resp B/P (MAP) Pulse Ox O2 Delivery O2 Flow Rate FiO2 11/02/17 08:00 97.3 104 16 91/54 (66) 97 11/02/17 04:00 98.7 113 20 86/47 (60) 94 11/02/17 04:00 Nasal Cannula 4.00 11/02/17 04:00 112 11/02/17 00:00 98.0 116 20 99/54 (69) 93 11/02/17 00:00 Nasal Cannula 4.00 11/01/17 22:30 96 Nasal Cannula 4.00 11/01/17 20:00 98.0 121 20 134/73 (93) 95 11/01/17 20:00 123 11/01/17 20:00 Nasal Cannula 3.00 11/01/17 16:00 121 11/01/17 16:00 Nasal Cannula 3.00 11/01/17 16:00 98.6 117 18 100 I/O 11/01/17 11/01/17 11/01/17 11/02/17 11/02/17 11/02/17 07:00 15:00 23:00 07:00 15:00 23:00 Intake Total 100 ml 250 ml 100 ml Output Total 1000 ml Balance 100 ml -750 ml 100 ml IV Total 100 ml 250 ml 100 ml Hemodialysis 1000 ml # Bowel Movements 1 Result Diagram: 10/31/1715 10/31/1715 Objective Remarks Systolic gallop heard S1-S2, unlabored breathing, no lower extremity edema, lying in bed, awake, alert, no acute distress Tearful demeanor, awake, alert, no respiratory distress mild-moderate to LE edema BL nonpitting from foot to shins BL A/P Assessment and Plan Acute hypoxemic respiratory failure -reaching a plateau - acute systolic HF; nephrology following Extensive septic emboli, consolidation of the lung Loculated left effusion, large right effusion - Extubated 10/17 (Self extubated while on CPAP for planned extubation) - IR placed left chest tube 10/06 with more than 1 L exudative fluid out. Removed 10/20 - right-sided pigtail chest tube at the bedside 10/09, brown tinged fluid approximately 1.1 L initial output, now output is minimum. Removed right chest tube 10/18/17. - Broad-spectrum antibiotics per ID, see below - Incentive spirometry while awake/Albuterol/ipratropium aerosols as well as EzPAP - Fluticasone Large tricuspid valve vegetation Small pericardial effusion Acute systolic heart failure Mild pulmonary hypertension - Bedside echo shows large tricuspid vegetation. repeat bedside echo today 10/18 similar size - Cardiology and CT surgery has followed. D/W Dr. Charles declined surgery due to active IV drug use, multiple medical complications. Discussed with [facility] who agreed with plan of our cardiothoracic surgeon. [facility] administration has denied the patient as well per CM. - CARMEN 10/04: EF 45-50 %. Large mobile vegetation on tricuspid valve, 2 separate vegetations 2.1 x 3.2 cm and 2.6 x 0.8 cm. PIP 40.7 mmHg -Echo 10/20 -EF 35-40%. Tricuspid valve vegetation Currently on metoprolol tartrate IVDU switched morhine 2mg q4hr to dilaudid 0.5 IV q6hrs prn breakthrough. Added norco 10/325 po q6hrs prn pain 6-10 instead of morphine Continue Fentanyl patch 75 mcg every 72 hours. Taper as tolerated. Palliative care following. Dr. Barry gave recs regarding pain regimen. Hepatosplenomegaly Diarrhea Hypoalbuminemia Hepatitis C genotype 1A Elevated ceruloplasmin MARTÍN + diffuse Elevated total bilirubin Elevated AST -Pantoprazole - Hepatitis C reactive. Genotype 1a Viral load 10,700 Hepatic ultrasound revealed hepatosplenomegaly.. CT abdomen/pelvis 10/24 revealed no obvious hepatic, pancreatic, nephrotic versus musculoskeletal source. Hepatosplenomegaly. Moderate ascites. Anasarca. CPK and troponin normal. Acute kidney failure with fluid overload - on hemodialysis 10/08,above. - Continue intermittent HD for fluid removal. - 10/14-removed vas catheter. Replaced on 10/16 Tricuspid and pulmonic valve endocarditis Septic emboli to the lung Severe sepsis MSSA bacteremia - Discussed with Dr. Charles CT surgery 10/05/17, 10/19, deemed not a surgical candidate - Cefazolin per ID Dr. Macias. 10/22 discontinued vancomycin 125 mg 4 times daily. 3/to discontinue rifampin due to elevated AST. Currently on zyvox and cefepime IV - Persistent MSSA bacteremia 10/04, 10/05 10/07 blood cultures, cultures reviewed. Blood cultures from 10/13 negative; has been afebrile recently. Anemia requiring transfusion Leukocytosis Normocytic anemia - currently stable - LDH mildly elevated and haptoglobin normal, Transfusion 1u PRBC on 10/14, 10/17 and 10/23 and 10/25 - Thrombocytopenia most likely from sepsis and DIC has resolved PT following Hyponatremia nephrology managing, suspect 09/26 CHF Discharge Planning Pt has no payor source. Pt currently on HD. ID, palliative care, [facility] following; no outside accepting facility. not a surgical candidate. Continue abx as only option for tx at this time although it may seem futile; patient is more open to palliative care at this time; change from the past few days. Says he wants to make his own medical decisions as opposed to deferring to his parents at this time. Nicolas Dorman MD Nov 02, 2017 11:29
[2017-11-02] MEDS: fentaNYL 100 MCG/HR PATCH T-DERMAL SCH (13:41)
[2017-11-02] MEDS: FERROUS SULFATE 325 MG (65 MG ELEMENTAL IRON) TAB PO SCH ×2 (13:41→16:42)
[2017-11-02] MEDS: REMOVE OLD PATCH T-DERMAL SCH (13:41)
[2017-11-03] VITALS (10 sets, daily range): BP systolic 84–104; BP diastolic 52–60; PULSE 92–124; RESP 16–20; TEMP 97.8–99.1; O2SAT 93–99
[2017-11-03] MEDS: CHLORHEXIDINE GLUCONATE 2 % 1 PACK (2 CLOTHS) TOP SCH (01:51)
[2017-11-03] MEDS: hydrOXYzine HCL 25 MG TAB PO PRN (02:58)
[2017-11-03] MEDS: ACETAMINOPHEN 500 MG CPLT PO SCH ×3 (05:28→17:54)
[2017-11-03] MEDS: METOPROLOL TARTRATE 25 MG TAB PO SCH ×3 (05:28→21:15)
[2017-11-03] MEDS: CHLORHEXIDINE 0.12% (ORAL KIT) 15 ML CUP MT SCH ×2 (08:00→20:00)
[2017-11-03] MEDS: PANTOPRAZOLE SOD 40 MG DELAYED RELEASE TAB PO SCH ×2 (08:34→21:14)
[2017-11-03] MEDS: DOCUSATE SODIUM 50 MG/SENNA 8.6 MG TAB PO SCH ×2 (08:34→21:00)
[2017-11-03] MEDS: SODIUM CHLORIDE 1 GRAM TAB PO SCH (08:34)
[2017-11-03] MEDS: GABAPENTIN 100 MG CAP PO SCH ×3 (08:34→17:53)
[2017-11-03] MEDS: LINEZOLID 600 MG TAB PO SCH ×2 (08:34→21:14)
[2017-11-03] MEDS: LACTOBACILLUS ACIDOPHILUS TAB PO SCH ×3 (08:34→17:53)
[2017-11-03] MEDS: COLLAGENASE OINT 30 GM TUBE TOPICAL SCH (08:35)
[2017-11-03] MEDS: SODIUM CHLORIDE 0.9% FLUSH 10 ML FLUSH IV FLUSH SCH ×2 (08:35→21:16)
[2017-11-03] MEDS: FLUTICASONE PROPIONATE 44 MCG/ACT 10.6 GM INHALER INH SCH ×2 (08:35→21:17)
[2017-11-03] MEDS: CALCIUM ACETATE 667 MG CAP PO SCH ×3 (08:35→17:53)
[2017-11-03] MEDS: HEPARIN SODIUM - SQ 10,000 UNITS/ML VIAL SQ SCH ×2 (08:35→21:15)
--- NOTE | 2017-11-03 10:59 | RADRPT ---
EXAM DATE/TIME: 11/03/2017 10:16 [place] COMPARISON: CT THORAX W/O CONTRAST, October 14, 2017, 0:26. INDICATIONS : Shortness of breath. RADIATION DOSE: 14.93 CTDIvol (mGy) MEDICAL HISTORY : Cardiovascular disease. Renal failure, acute. SURGICAL HISTORY : None. ENCOUNTER: Initial ACUITY: 3 days PAIN SCALE: 5/10 LOCATION: chest TECHNIQUE: Volumetric scanning of the chest was performed. Using automated exposure control and adjustment of t he mA and/or kV according to patient size, radiation dose was kept as low as reasonably achievable to obtain optimal diagnostic quality images. DICOM format image data is available electronically for r eview and comparison. Follow-up recommendations for detected pulmonary nodules are based at a minimum on nodule size and pa tient risk factors according to Fleischner Society Guidelines. FINDINGS: There is scattered areas of consolidation identified bilaterally as well as scattered cavitary nodule s. The overall degree of consolidation and nodularity is decreased in several of the nodules have res olved. The left-sided pigtail catheter has been removed. There are small bilateral effusions. There i s bilateral hilar adenopathy a small pericardial effusion. Gynecomastia is present. The osseous struc tures are intact. Ascites is present. CONCLUSION: Scattered areas of consolidation and scattered nodular foci identified, a overall improved from the p revious study however the consolidation in the right middle lobe is increased and is a change from pr evious studies. Chadwick Diaz MD on November 03, 2017 at 10:55 Board Certified Radiologist. This report was verified electronically.
--- NOTE | 2017-11-03 11:15 | HHI.PR ---
Subjective Remarks Follow-up on endocarditis. No deteriorations overnight per nursing. However, CXR showed worsening, ID ordered further images. Mom and dad at bedside. Mom is not agreeable to comfort care plan. Patient starts to argue against his mom very aggressively when hearing this. Says he knows he's going to . Objective Vital Signs Date Time Temp Pulse Resp B/P (MAP) Pulse Ox O2 Delivery O2 Flow Rate FiO2 11/03/17 11:03 98.4 124 20 84/52 (63) 99 11/03/17 08:00 Nasal Cannula 4.00 11/03/17 04:00 Nasal Cannula 4.00 11/03/17 00:00 99.1 98 16 91/58 (69) 99 11/03/17 00:00 Nasal Cannula 4.00 11/03/17 00:00 95 11/02/17 20:37 Nasal Cannula 4.00 11/02/17 20:00 98.1 103 22 90/52 (65) 96 11/02/17 20:00 Nasal Cannula 4.00 11/02/17 20:00 96 11/02/17 18:20 95 4.00 11/02/17 16:00 Nasal Cannula 4.00 11/02/17 16:00 97.8 98 16 90/51 (64) 96 11/02/17 12:00 98.1 110 17 94/52 (66) 100 11/02/17 12:00 Nasal Cannula 4.00 I/O 11/02/17 11/02/17 11/02/17 11/03/17 11/03/17 11/03/17 07:00 15:00 23:00 07:00 15:00 23:00 Intake Total 100 ml 500 ml 500 ml Output Total 100 ml 0 ml Balance 100 ml 400 ml 500 ml Intake Oral 500 ml 400 ml IV Total 100 ml 100 ml Output Urine Total 100 ml 0 ml # Bowel Movements 1 0 Result Diagram: 10/31/1715 10/31/17 0615 Objective Remarks Systolic gallop heard S1-S2, unlabored breathing, lying in bed, awake, alert, no acute distress mild-moderate to LE edema BL unchanged from yesterday Patient appears to be in a stable mood but then gets very tearful when arguing with his parents A/P Assessment and Plan New infiltrates on right middle lobe per CT scan -Pulmonology consult per ID, ID managing antibiotics Acute hypoxemic respiratory failure -reaching a plateau at about 3 L, now likely chronic - acute systolic HF; nephrology following Extensive septic emboli, consolidation of the lung Loculated left effusion, large right effusion - Extubated 10/17 (Self extubated while on CPAP for planned extubation) - IR placed left chest tube 10/06 with more than 1 L exudative fluid out. Removed 10/20 - right-sided pigtail chest tube at the bedside 10/09, brown tinged fluid approximately 1.1 L initial output, now output is minimum. Removed right chest tube 10/18/17. - Broad-spectrum antibiotics per ID, see below - Incentive spirometry while awake/Albuterol/ipratropium aerosols as well as EzPAP - Fluticasone Large tricuspid valve vegetation Small pericardial effusion Acute systolic heart failure Mild pulmonary hypertension - Bedside echo shows large tricuspid vegetation. repeat bedside echo today 10/18 similar size - Cardiology and CT surgery has followed. D/W Dr. Charles declined surgery due to active IV drug use, multiple medical complications. Discussed with [facility] who agreed with plan of our cardiothoracic surgeon. [facility] administration has denied the patient as well per CM. - CARMEN 10/04: EF 45-50 %. Large mobile vegetation on tricuspid valve, 2 separate vegetations 2.1 x 3.2 cm and 2.6 x 0.8 cm. PIP 40.7 mmHg -Echo 10/20 -EF 35-40%. Tricuspid valve vegetation Currently on metoprolol tartrate IVDU switched morhine 2mg q4hr to dilaudid 0.5 IV q6hrs prn breakthrough. Added norco 10/325 po q6hrs prn pain 6-10 instead of morphine Continue Fentanyl patch 75 mcg every 72 hours. Taper as tolerated. Palliative care following. Dr. Barry gave recs regarding pain regimen. Hepatosplenomegaly Diarrhea Hypoalbuminemia Hepatitis C genotype 1A Elevated ceruloplasmin MARTÍN + diffuse Elevated total bilirubin Elevated AST -Pantoprazole - Hepatitis C reactive. Genotype 1a Viral load 10,700 Hepatic ultrasound revealed hepatosplenomegaly.. CT abdomen/pelvis 10/24 revealed no obvious hepatic, pancreatic, nephrotic versus musculoskeletal source. Hepatosplenomegaly. Moderate ascites. Anasarca. CPK and troponin normal. Acute kidney failure with fluid overload - on hemodialysis 10/08,above. - Continue intermittent HD for fluid removal. - 10/14-removed vas catheter. Replaced on 10/16 Tricuspid and pulmonic valve endocarditis Septic emboli to the lung Severe sepsis MSSA bacteremia - Discussed with Dr. Charles CT surgery 10/05/17, 10/19, deemed not a surgical candidate - Cefazolin per ID Dr. Macias. 10/22 discontinued vancomycin 125 mg 4 times daily. / discontinue rifampin due to elevated AST. Currently on zyvox and cefepime IV - Persistent MSSA bacteremia 10/04, 10/05 10/07 blood cultures, cultures reviewed. Blood cultures from 10/13 negative; has been afebrile recently. Anemia requiring transfusion Leukocytosis Normocytic anemia - currently stable - LDH mildly elevated and haptoglobin normal, Transfusion 1u PRBC on 10/14, 10/17 and 10/23 and 10/25 - Thrombocytopenia most likely from sepsis and DIC has resolved PT following Hyponatremia nephrology managing, suspect 09/26 CHF Depression, discussed with psychiatry, patient is capable of making his own decisions medically speaking and it is safe to continue with Cymbalta while on linezolid as the risk of actual serotonin syndrome is realistically low. Relayed to palliative care, if ID deems pt poor prognosis can re-discuss palliative/comfort measures. Pt's mother not agreeable to comfort plan but she is not the medical decision-maker. Discharge Planning Pt has no payor source. Pt currently on HD. ID, palliative care, [facility] following; no outside accepting facility. not a surgical candidate. Continue abx as only option for tx at this time although it may seem futile; patient is more open to palliative care at this time; change from the past few days. Says he wants to make his own medical decisions as opposed to deferring to his parents at this time. Nicolas Dorman MD Nov 03, 2017 11:15
[2017-11-03] MEDS ORDERED: DULoxetine HCl DR 30 MG CAP PO SCH (12:00)
[2017-11-03] MEDS: DULoxetine HCl DR 60 MG CAP PO SCH (12:17)
[2017-11-03] MEDS: FERROUS SULFATE 325 MG (65 MG ELEMENTAL IRON) TAB PO SCH ×2 (12:18→17:54)
[2017-11-03] MEDS: RESP: ALBUTEROL 2.5 MG/3 ML NEB (PRN) NEB ×2 (14:21→20:24)
--- NOTE | 2017-11-03 15:00 | HHI.IDPN ---
Subjective Subjective Remarks ID COVERAGE is a 27 y/o CM with remote history of IV drug abuse, states he last used heroin 2 months ago, presents for evaluation of body aches, 7 days of diarrhea with development of subjective fever yesterday. Patient denies any nausea or vomiting. He denies any chest pain. This has developed within the last 24 hours. Patient does have a cough with clear sputum. Denies any prior history of endocarditis. Denies any abdominal pain. Does report some left back pain, worse while lying flat. He is well reports generalized weakness. Patient met criteria for sepsis on admission. Flu antigen negative. CXR with bilateral infiltrates. performed a bedside 2D ECHO and verbally reported a large ~4.5 cm vegetation on TV. CXR suspicious for septic emboli. Blood cultures drawn but it appears patient has received augmentin at some point and cultures may possibly be negative. ID is following for evaluation and M'ment of Severe Sepsis and Endocarditis. Notes reviewed Temps ok States breathing a little better today Up in chair Repeat CT with some improvement in infiltrates Last HD 11/01 BP ok No rash No diarrhea Antibiotics Current Medications Ancef Cefepime Zyvox Medications (Trade) Dose Ordered Sig/Willem Route Start Time Stop Time Status Last Admin (NS Flush) 2 ml UNSCH PRN IV FLUSH 10/03/17 21:15 10/15/17 20:58 (NS Flush) 2 ml BID IV FLUSH 10/04/17 09:00 11/03/17 08:35 (Zofran Inj) 4 mg Q6H PRN IV PUSH 10/03/17 21:15 10/23/17 16:35 (Restoril) 15 mg HS PRN PO 10/03/17 21:15 10/27/17 20:29 Miscellaneous Information 1 Q361D XX 10/03/17 21:15 (Chlorhexidine 2% Cloth) Taper DAILY@04 TOP 10/04/17 04:00 09/30/18 03:59 10/26/17 21:40 (Chlorhexidine 2% Cloth) 3 pack UNSCH PRN TOP 10/03/17 21:15 (Renita-Colace) 1 tab BID PO 10/04/17 09:00 11/03/17 08:34 (Senokot) 17.2 mg Q12H PRN PO 10/03/17 21:15 (Dulcolax Supp) 10 mg DAILY PRN RECTAL 10/03/17 21:15 10/11/17 17:08 (Lactulose Liq) 30 ml DAILY PRN PO 10/03/17 21:15 10/11/17 17:08 (Flovent Hfa 44 Mcg Inh) 2 puff BID INH 10/04/17 09:00 11/03/17 08:35 (Peridex 0.12% Liq) 15 ml BID@08,20 MT 10/04/17 20:00 10/28/17 08:00 Sodium Chloride 1,000 ml @ 0 mls/hr Q0M PRN OTHER 10/08/17 10:33 10/25/17 10:39 (Heparin Inj) 8,000 units UNSCH PRN IV FLUSH 10/08/17 10:45 Sodium Chloride 1,000 ml @ 200 mls/hr Q5H PRN IV 10/08/17 11:15 10/11/17 08:57 Sodium Chloride 1,000 ml @ 0 mls/hr Q0M PRN OTHER 10/08/17 11:15 (Mannitol Inj) 12.5 gm UNSCH PRN IV 10/08/17 11:15 Albumin Human 100 ml @ 60 mls/hr UNSCH PRN IV 10/08/17 11:30 11/01/17 12:42 (NS Flush) 5 ml UNSCH PRN IV FLUSH 10/08/17 11:15 10/25/17 10:40 (Heparin Inj) UNSCH PRN .XX 10/08/17 11:15 11/01/17 12:42 (Gentamicin Inj) 20 mg UNSCH PRN OTHER 10/08/17 11:15 11/01/17 12:42 (Zofran Inj) 4 mg UNSCH PRN IV PUSH 10/08/17 11:15 (Nitrostat Sl) 0.4 mg UNSCH PRN SL 10/08/17 11:30 (Catapres) 0.1 mg UNSCH PRN PO 10/08/17 11:30 (Epogen Inj) 10,000 units UNSCH PRN IV PUSH 10/08/17 11:30 11/01/17 12:41 (Gelfoam 12 Mm/7 Mm Top) 1 foam UNSCH PRN TOP 10/08/17 11:30 (Lactinex) 1 tab TID PO 10/17/17 13:00 11/03/17 12:18 (Duragesic 100 Mcg Patch.72 Hr) 1 patch Q3D T-DERMAL 10/18/17 12:00 11/02/17 13:41 Miscellaneous Information 1 Q3D T-DERMAL 10/21/17 12:00 11/02/17 13:41 (Santyl Oint) 1 applic DAILY TOPICAL 10/20/17 16:00 11/03/17 08:35 (Albuterol Neb) 2.5 mg Q2HR NEB PRN NEB 10/21/17 13:30 11/03/17 14:21 (Protonix) 40 mg Q12HR PO 10/21/17 21:00 11/03/17 08:34 (Heparin Inj) 5,000 units Q12HR SQ 10/21/17 21:00 11/03/17 08:35 (Phoslo) 667 mg TID PO 10/23/17 13:00 11/03/17 12:18 Cefazolin Sodium 1000 mg/Sodium Chloride 100 ml @ 200 mls/hr Q12H IV 10/24/17 03:00 11/03/17 14:26 (Haldol Inj) 5 mg Q4H PRN IV PUSH 10/23/17 23:30 10/26/17 23:39 (Lopressor) 25 mg Q8HR PO 10/25/17 22:00 11/03/17 14:24 (Sodium Chloride) 1 gm DAILY PO 10/26/17 09:00 11/03/17 08:34 (Ferrous Sulfate) 325 mg BID@12,17 PO 10/27/17 12:00 11/03/17 12:18 Cefepime HCl 2000 mg/Sodium Chloride 100 ml @ 200 mls/hr Q48H IV 10/30/17 16:00 11/01/17 16:00 (Zyvox) 600 mg Q12HR PO 10/30/17 14:00 11/03/17 08:34 (Tylenol) 500 mg Q6HR PO 10/31/17 00:00 11/03/17 12:18 (Roxicodone) 5 mg Q6H PRN PO 10/30/17 20:00 11/03/17 14:24 (Zanaflex) 2 mg Q8HR PO 10/30/17 22:00 11/03/17 14:24 (Neurontin) 300 mg TID PO 10/31/17 18:00 11/03/17 12:18 (Atarax) 50 mg Q8H PRN PO 10/31/17 17:15 11/03/17 02:58 (Cymbalta Dr) 60 mg DAILY PO 11/03/17 12:00 11/03/17 12:17 Lines Line sites with no e.o infection Past Medical History Asthma HCV Past Surgical History No surgical history per records. Allergies: Coded Allergies: erythromycin base (Verified Allergy, Severe, Nausea/Vomiting, 10/03/17) raspberry (Unverified Allergy, Mild, 10/03/17) Objective . Vital Signs Date Time Temp Pulse Resp B/P (MAP) Pulse Ox O2 Delivery O2 Flow Rate FiO2 11/03/17 14:24 97 Nasal Cannula 4.00 11/03/17 11:03 98.4 124 20 84/52 (63) 99 11/03/17 08:00 Nasal Cannula 4.00 11/03/17 04:00 Nasal Cannula 4.00 11/03/17 00:00 99.1 98 16 91/58 (69) 99 11/03/17 00:00 Nasal Cannula 4.00 11/03/17 00:00 95 11/02/17 20:37 Nasal Cannula 4.00 11/02/17 20:00 98.1 103 22 90/52 (65) 96 11/02/17 20:00 Nasal Cannula 4.00 11/02/17 20:00 96 11/02/17 18:20 95 4.00 11/02/17 16:00 Nasal Cannula 4.00 11/02/17 16:00 97.8 98 16 90/51 (64) 96 Imaging Chest X-Ray 10/30/17 0000 Signed Impressions: Service Date/Time: October 17:04 - CONCLUSION: Increasing bilateral scattered pulmonary infiltrates compared to the prior study. Victorino Vang MD Liver Ultrasound 10/24/17 0000 Signed Impressions: Service Date/Time: Tuesday, October 24, 2017 16:43 - CONCLUSION: Hepatosplenomegaly with ascites. Echogenic kidney Madi Mccartney MD Abdomen/Pelvis CT 10/24/17 0000 Signed Impressions: Service Date/Time: Tuesday, October 24, 2017 21:37 - CONCLUSION: 1. Hepatosplenomegaly. 2. Moderate amount of ascites. 3. Diffuse anasarca. 4. Bibasilar pleural effusions and scattered infiltrates. Khoi Padilla MD Tunnelled Chest Tube Removal 10/20/17 0000 Signed Impressions: Service Date/Time: Friday, October 20, 2017 00:00 - CONCLUSION: Uncomplicated chest tube removal. Madi Mccartney MD Chest CT 10/14/17 0000 Signed Impressions: Service Date/Time: Saturday, October 14, 2017 00:26 - CONCLUSION: 1. Bilateral scattered pulmonary nodules are again noted. Several of the right nodules are now cavitary and likely represent septic emboli given the history of IV drug abuse. 2. Interval placement of bilateral chest tubes with small pleural effusions noted. 3. Dense consolidation remains in the posterior lower lobes. Jorge Jang MD Upper Extremity Ultrasound 10/13/17 0000 Signed Impressions: Service Date/Time: Friday, October 13, 2017 11:25 - CONCLUSION: Normal examination. Christian Kaur MD Abdomen X-Ray 10/10/17 0000 Signed Impressions: Service Date/Time: Tuesday, October 10, 2017 16:46 - CONCLUSION: Negative for free air or obstruction. Rahul Yarbrough MD FACR Chest Tube Insertion 10/06/17 0000 Signed Impressions: Service Date/Time: Friday, October 06, 2017 15:37 - CONCLUSION: Uncomplicated chest tube placement as above. Emerson Hui MD Physical Exam GENERAL: Awake, and following commands, up in chair, looks comfortable at rest SKIN: No generalized rash. Cool and dry. Multiple tattoos. HEAD: Atraumatic. Normocephalic. No temporal or scalp tenderness. EYES: Pupils equal round and reactive. Extraocular motions intact. No petechia, no hemorrhage ENT: Moist oral mucosa, no nasal drainage NECK: Trachea midline. Supple, nontender, no meningeal signs. CARDIOVASCULAR: Has systolic murmur RESPIRATORY: Decreased air entry bilaterally bases. GASTROINTESTINAL: Abdomen soft, not tender, (+) BS, distended. MUSCULOSKELETAL: Extremities without clubbing, cyanosis. (+) bilateral pedal edema. No embolic lesion seen. NEUROLOGICAL: Awake, follows commands Psych cooperative IV line sites with no e.o infection. 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 Pneumonia: septic emboli, aspiration pneumonia. - CT chest 11/03 improving Respiratory failure, self extubated 10/17 IVDA: heroin, cocaine and methamphetamine. Acute renal failure: Sepsis, meds,contrast. - on HD Abnormal LFTs: ? Rifampin induced vs volume overload related. Recs: Continue Ancef IV (for MSSA TV endocarditis) Continue Cefepime IV (for possible HCAP given increased secretions and pneumonia on clinical exam) Continue Zyvox oral (for MRSA HCAP) Monitor progress D/W Dr Dorman (HEPAS) Chelsy Kramer MD Nov 03, 2017 15:00
--- NOTE | 2017-11-03 15:27 | HHI.HCPN ---
Reason for visit a. To assist with evaluation and management of symptoms including: Debility. b. To assist medical decision maker(s) with: better understanding of current medical conditions; weighing benefits/burdens of medical treatment options; making medical treatment decisions. . Subjective/Interval History Palliative care follow-up for further clarifications of goals of care, emotional support. Patient seen in his room. Sitting up in recliner chair in no acute distress. However, intermittent crying episodes. Endorsing pain to lower back and buttocks area, currently rated at 7/10. Reports that pain is exacerbated by prolonged sitting, alleviated with pain medication. Reports that his breathing is better than this morning, appetite reported as good. Patient afebrile, heart rate in the 120s. Currently tolerating O2 via nasal cannula 4 L, oxygen saturation in the high 90s. Pulmonology has been consulted for evaluation of worsening shortness of breath, pending consultation. CT of the chest revealing scattered areas of consolidation, overall improved from previous studies. Last hemodialysis treatment 11/01 removing 1 L. Patient noted with increased peripheral edema, ascites. Patient's parents Mendoza and Mely at bedside. Upon palliative care entering pt's room, patient's mother started raising her voice stating that "you should NOT be discussing hospice with my son, I forbid anybody from telling my son that he is dying", "I am sure that is because he's uninsured that you all don't want to keep him here". "My mother with hospice, hospice killed her". "my son is not dying". Active listening provided to patient's mother, acknowledged her frustration regarding patient's clinical condition. Reassured parents that patient is receiving adequate medical management given his condition. Patient intermittently arguing/yelling at his mother. Patient verbalizes that he wishes to stay hospitalized for IV therapy. Case discussed in great detail with Dr. Dorman. Concerns of patient's poor insight into his clinical condition/impulsive judgment as documented by psychiatry on 10/31/17. He is being followed by psychiatry for anxiety and depression. Recently started on SNRI for depression and hydroxyzine for anxiety. Reviewed that disposition for this patient is affected by his socioeconomic situation, currently unfunded for rehabilitation or placement. Family verbalized not being able to care for him at home given higher level of needs. No palliative care outpatient options in the community. Comfort- directed care with hospice is definitely available in the community; however, hemodialysis would be discontinued which will leave patient with a life expectancy of 1-2 weeks. Both parents are NOT in line with comfort-director goals/hospice. It is important to note that if patient is found to retain medical decision making capacity and he chooses hospice, both parents will retain the statutory right to readdress goals of care once patient looses medical decision-making capacity (ei. altered mental status or progression of illness). Telephone call to Dr. Graves. Left message on [employer]. Palliative care recommends psychiatry follow-up for pt determination of medical decision making capacity. . Family/friend interactions See interval note. . Advance Directives Living Will: Never completed Health Care Surrogate: Never completed Durable Power of Spout Positioner: Never completed Advance Directive Specifics Health Care Surrogate(s): No advance directives completed. Patient is single, no children. As per [place] statue, healthcare proxy decision making foals to patient's parents. . Significant change in goals: Goals of care remain unchanged. . Objective Vital Signs Date Time Temp Pulse Resp B/P (MAP) Pulse Ox O2 Delivery O2 Flow Rate FiO2 11/03/17 14:24 97 Nasal Cannula 4.00 11/03/17 11:03 98.4 124 20 84/52 (63) 99 11/03/17 08:00 Nasal Cannula 4.00 11/03/17 04:00 Nasal Cannula 4.00 11/03/17 00:00 99.1 98 16 91/58 (69) 99 11/03/17 00:00 Nasal Cannula 4.00 11/03/17 00:00 95 11/02/17 20:37 Nasal Cannula 4.00 11/02/17 20:00 98.1 103 22 90/52 (65) 96 11/02/17 20:00 Nasal Cannula 4.00 11/02/17 20:00 96 11/02/17 18:20 95 4.00 11/02/17 16:00 Nasal Cannula 4.00 11/02/17 16:00 97.8 98 16 90/51 (64) 96 Intake & Output 11/03/17 11/03/17 07:00 19:00 Intake Total 500 ml Output Total 0 ml Balance 500 ml Intake Oral 400 ml IV Total 100 ml Output Urine Total 0 ml # Bowel Movements 0 Physical Exam CONSTITUTIONAL/GENERAL: This is an adequately nourished young patient sitting up in recliner chair in no acute distress. TUBES/LINES/DRAINS: Nasal cannula, Vas-Cath, PIV. SKIN: No jaundice, rashes, or lesions. No wounds seen anteriorly. Skin temperature appropriate. Not diaphoretic. Large areas of tattoos from head to toe, multiple body piercings. HEAD: Atraumatic. Normocephalic. EYES: Pupils equal and round and reactive. Extraocular motions intact. No scleral icterus. No injection or drainage. ENT: Hearing grossly normal. Nose without bleeding or purulent drainage. Moist oral mucosa. NECK: Trachea midline. Supple, nontender. CARDIOVASCULAR: Regular rate and rhythm. No JVD. Peripheral pulses symmetric. RESPIRATORY/CHEST: Symmetric, unlabored respirations. Clear, diminished to auscultation. Breath sounds equal bilaterally. GASTROINTESTINAL: Abdomen large, round, tender. Bowel sounds present. Ascites. GENITOURINARY: Without palpable bladder distension. MUSCULOSKELETAL: Extremities without clubbing, cyanosis. No mottling or clubbing. Worsening peripheral edema. NEUROLOGICAL: Awake and alert x self, place and situation. Follows commands. Moves all extremities. PSYCHIATRIC: Tearful, anxious. Labile. . Diagnostic Tests Laboratory Laboratory Tests Test 11/01/17 14:35 Total Bilirubin 1.6 MG/DL (0.2-1.0) Direct Bilirubin 1.0 MG/DL (0.0-0.2) Indirect Bilirubin 0.6 MG/DL (0.0-0.8) Aspartate Amino Transf (AST/SGOT) 23 U/L (15-37) Alanine Aminotransferase (ALT/SGPT) 9 U/L (12-78) Alkaline Phosphatase 72 U/L (45-117) Total Protein 8.6 GM/DL (6.4-8.2) Albumin 3.2 GM/DL (3.4-5.0) Result Diagram: 10/31/17 0615 10/31/17 0615 Imaging Last [address] 11/03/17 0000 Signed Impressions: Service Date/Time: Friday, November 03, 2017 10:16 - CONCLUSION: Scattered areas of consolidation and scattered nodular foci identified, a overall improved from the previous study however the consolidation in the right middle lobe is increased and is a change from previous studies. Chadwick Diaz MD Procedures * 10/04/17 -endotracheal intubation * 10/08/17 -Vas-Cath placement * 10/09/17 -right pigtail chest tube * 10/17/17 -self extubated * 10/18/17 -chest tube discontinued . Assessment and Plan Disease Oriented Problem List: (1) Septic embolism (2) Tricuspid valve vegetation (3) MSSA bacteremia (4) Acute systolic heart failure (5) Hepatosplenomegaly (6) Hepatitis C (7) Anemia (8) ZEUS (acute kidney injury) (9) IV drug abuse Symptom Scale: (1) Depression 0-10 Scale: Unable to quantify (2) Debility 0-10 Scale: Unable to quantify (3) Pain 0-10 Scale: 6 Pertinent Non-Medical Issues Psychosocial: Patient originally from [facility]. Single, no children. Residing with both parents. 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 Patient is the only child. He reports being engaged to girlfriend Tamy. No service. Spiritual: Baptism julia. Legal: No advance directives completed Ethical issues impacting care: No ethical issues identified. . Important Contacts Mother Mely , alternate number for sister Venus. Father Mendoza . . Prognosis Mr. New is a 27-year-old male with a significant history of polysubstance drug abuse and asthma. Patient presented to the emergency room on 10/03/17 endorsing flulike symptoms. He was admitted for sepsis, pneumonia. ETT later revealing large tricuspid mobile vegetation. Clinical course complicated by extensive septic emboli, respiratory failure, acute kidney injury requiring hemodialysis. Cardiothoracic surgery at [place] in at [facility] ([place], [place]) again maría consulted. Patient not a surgical candidate given multiple medical complications. Overall prognosis is guarded, patient at high risk for ongoing septic emboli, further complications, continue decline and . . Code Status: Full Code Plan * CODE STATUS: Full code. * HEALTHCARE DECISION-MAKING: Patient participating a medical decision making. Poor insight into his complicated medical issues. No advance directives completed. As per [place] statute, healthcare proxy decision making folds to patient's parents Mely and Mendoza New. Palliative care recommends psychiatry follow-up for evaluation of medical decision making capacity. * GOALS OF CARE: Aggressive goals of care by default, both parents supportive of aggressive management. Patient with emotional lability during this visit and prior visits. Reports of patient requesting comfort-directed care/hospice, patient verbalized during my visit wishing to stay hospitalized for completion of IV antibiotic treatment. Concerns of patient's poor insight/impulsive judgment as documented by psychiatry on 10/31/17. Palliative care recommends psychiatry evaluation for medical decision-making capacity given the above. Disposition for this patient is affected by his socioeconomic situation, no payor source for rehabilitation or placement. Family verbalized not being able to care for him at home given higher level of needs. Comfort-directed care with hospice is definitely an option; however, hemodialysis would be discontinued which will leave patient with a life expectancy of 1-2 weeks. Both parents are NOT in line with comfort-director goals/hospice or discontinuation of HD. It is important to note that if patient is found to retain medical decision making capacity and he chooses hospice, both parents will retain the statutory right to readdress goals of care once patient looses medical decision-making capacity (ei. altered mental status or progression of illness). * SYMPTOMS: * =Depression: Patient reports significant anxiety and depression since childhood. Psychiatry following. Patient placed on SNRI. * =Debility: Secondary to acute illness, multiple medical complications and prolonged hospitalization. PT OT following. * =Pain: Management deferred to attending given significant history of polysubstance IV drug abuse. Dr. Fischer consulted for recommendations. * Case discussed in great detail with Dr. Dorman and Dr. Love. * Palliative care contact information has been provided to patient and family. * Palliative care will continue to follow up for further clarification of goals , emotional support as patient's clinical course continues to evolve. . Time Spent Total Floor Time (mins): 43 (Total time to include review medical records, physical exam, goals of care conversation with patient and parents, case discussion with attending.) >50% Counseling/Coord of Care: Yes Attestation To help prompt me to consider important information that might be impacting today's encounter and assessment, information from prior notes written by myself or my colleagues may have been "brought forward" into today's note. My signature on this note, however, is an attestation that I personally performed the exam, history, and/or decision-making noted today, and, unless otherwise indicated, the interactions with patient, family, and staff as well as the review of records all occurred today. I also attest that the listed assessment and stated plan reflect my best clinical judgment today based on the combination of historical information, prior notes, and today's exam/ interactions. When time spent is documented, it refers only to time spent today by the signer, or if indicated, combined time spent today by collaborating physician/nurse practitioner. Autunm Goins Nov 03, 2017 15:27
[2017-11-03] MEDS: CEFEPIME INJ 2,000 MG in SODIUM CHLORIDE 0.9% INJ 100 ML IV SCH (15:55)
[2017-11-04] VITALS (7 sets, daily range): BP systolic 91–111; BP diastolic 50–74; PULSE 88–131; RESP 18–20; TEMP 97–98.2; O2SAT 92–98
[2017-11-04] MEDS: CHLORHEXIDINE GLUCONATE 2 % 1 PACK (2 CLOTHS) TOP SCH (04:00)
[2017-11-04] MEDS: ACETAMINOPHEN 500 MG CPLT PO SCH ×5 (05:06→18:00)
[2017-11-04] MEDS: METOPROLOL TARTRATE 25 MG TAB PO SCH ×3 (05:38→22:00)
[2017-11-04] MEDS: CHLORHEXIDINE 0.12% (ORAL KIT) 15 ML CUP MT SCH ×2 (08:00→20:00)
[2017-11-04] MEDS: PANTOPRAZOLE SOD 40 MG DELAYED RELEASE TAB PO SCH ×2 (08:50→21:17)
[2017-11-04] MEDS: SODIUM CHLORIDE 0.9% FLUSH 10 ML FLUSH IV FLUSH SCH ×2 (08:50→21:18)
[2017-11-04] MEDS: GABAPENTIN 100 MG CAP PO SCH ×4 (08:50→18:16)
[2017-11-04] MEDS: LACTOBACILLUS ACIDOPHILUS TAB PO SCH ×4 (08:50→18:16)
[2017-11-04] MEDS: LINEZOLID 600 MG TAB PO SCH (08:50)
[2017-11-04] MEDS: SODIUM CHLORIDE 1 GRAM TAB PO SCH (08:50)
[2017-11-04] MEDS: DULoxetine HCl DR 60 MG CAP PO SCH (08:50)
[2017-11-04] MEDS: CALCIUM ACETATE 667 MG CAP PO SCH ×4 (08:50→18:16)
[2017-11-04] MEDS: FLUTICASONE PROPIONATE 44 MCG/ACT 10.6 GM INHALER INH SCH ×2 (08:50→21:18)
[2017-11-04] MEDS: DOCUSATE SODIUM 50 MG/SENNA 8.6 MG TAB PO SCH ×2 (08:50→21:00)
[2017-11-04] MEDS: COLLAGENASE OINT 30 GM TUBE TOPICAL SCH (08:51)
[2017-11-04] MEDS: HEPARIN SODIUM - SQ 10,000 UNITS/ML VIAL SQ SCH ×2 (08:51→21:18)
--- NOTE | 2017-11-04 11:08 | HHI.IDPN ---
Subjective Subjective Remarks ID COVERAGE is a 27 y/o CM with remote history of IV drug abuse, states he last used heroin 2 months ago, presents for evaluation of body aches, 7 days of diarrhea with development of subjective fever yesterday. Patient denies any nausea or vomiting. He denies any chest pain. This has developed within the last 24 hours. Patient does have a cough with clear sputum. Denies any prior history of endocarditis. Denies any abdominal pain. Does report some left back pain, worse while lying flat. He is well reports generalized weakness. Patient met criteria for sepsis on admission. Flu antigen negative. CXR with bilateral infiltrates. performed a bedside 2D ECHO and verbally reported a large ~4.5 cm vegetation on TV. CXR suspicious for septic emboli. Blood cultures drawn but it appears patient has received augmentin at some point and cultures may possibly be negative. ID is following for evaluation and M'ment of Severe Sepsis and Endocarditis. Notes reviewed Temps ok States breathing a little better today Up in chair Repeat CT with some improvement in infiltrates Last HD 11/01 BP ok No rash No diarrhea Antibiotics Current Medications Ancef Cefepime Zyvox Medications (Trade) Dose Ordered Sig/Willem Route Start Time Stop Time Status Last Admin (NS Flush) 2 ml UNSCH PRN IV FLUSH 10/03/17 21:15 10/15/17 20:58 (NS Flush) 2 ml BID IV FLUSH 10/04/17 09:00 11/03/17 08:35 (Zofran Inj) 4 mg Q6H PRN IV PUSH 10/03/17 21:15 10/23/17 16:35 (Restoril) 15 mg HS PRN PO 10/03/17 21:15 10/27/17 20:29 Miscellaneous Information 1 Q361D XX 10/03/17 21:15 (Chlorhexidine 2% Cloth) Taper DAILY@04 TOP 10/04/17 04:00 09/30/18 03:59 10/26/17 21:40 (Chlorhexidine 2% Cloth) 3 pack UNSCH PRN TOP 10/03/17 21:15 (Renita-Colace) 1 tab BID PO 10/04/17 09:00 11/03/17 08:34 (Senokot) 17.2 mg Q12H PRN PO 10/03/17 21:15 (Dulcolax Supp) 10 mg DAILY PRN RECTAL 10/03/17 21:15 10/11/17 17:08 (Lactulose Liq) 30 ml DAILY PRN PO 10/03/17 21:15 10/11/17 17:08 (Flovent Hfa 44 Mcg Inh) 2 puff BID INH 10/04/17 09:00 11/03/17 08:35 (Peridex 0.12% Liq) 15 ml BID@08,20 MT 10/04/17 20:00 10/28/17 08:00 Sodium Chloride 1,000 ml @ 0 mls/hr Q0M PRN OTHER 10/08/17 10:33 10/25/17 10:39 (Heparin Inj) 8,000 units UNSCH PRN IV FLUSH 10/08/17 10:45 Sodium Chloride 1,000 ml @ 200 mls/hr Q5H PRN IV 10/08/17 11:15 10/11/17 08:57 Sodium Chloride 1,000 ml @ 0 mls/hr Q0M PRN OTHER 10/08/17 11:15 (Mannitol Inj) 12.5 gm UNSCH PRN IV 10/08/17 11:15 Albumin Human 100 ml @ 60 mls/hr UNSCH PRN IV 10/08/17 11:30 11/01/17 12:42 (NS Flush) 5 ml UNSCH PRN IV FLUSH 10/08/17 11:15 10/25/17 10:40 (Heparin Inj) UNSCH PRN .XX 10/08/17 11:15 11/01/17 12:42 (Gentamicin Inj) 20 mg UNSCH PRN OTHER 10/08/17 11:15 11/01/17 12:42 (Zofran Inj) 4 mg UNSCH PRN IV PUSH 10/08/17 11:15 (Nitrostat Sl) 0.4 mg UNSCH PRN SL 10/08/17 11:30 (Catapres) 0.1 mg UNSCH PRN PO 10/08/17 11:30 (Epogen Inj) 10,000 units UNSCH PRN IV PUSH 10/08/17 11:30 11/01/17 12:41 (Gelfoam 12 Mm/7 Mm Top) 1 foam UNSCH PRN TOP 10/08/17 11:30 (Lactinex) 1 tab TID PO 10/17/17 13:00 11/03/17 12:18 (Duragesic 100 Mcg Patch.72 Hr) 1 patch Q3D T-DERMAL 10/18/17 12:00 11/02/17 13:41 Miscellaneous Information 1 Q3D T-DERMAL 10/21/17 12:00 11/02/17 13:41 (Santyl Oint) 1 applic DAILY TOPICAL 10/20/17 16:00 11/03/17 08:35 (Albuterol Neb) 2.5 mg Q2HR NEB PRN NEB 10/21/17 13:30 11/03/17 14:21 (Protonix) 40 mg Q12HR PO 10/21/17 21:00 11/03/17 08:34 (Heparin Inj) 5,000 units Q12HR SQ 10/21/17 21:00 11/03/17 08:35 (Phoslo) 667 mg TID PO 10/23/17 13:00 11/03/17 12:18 Cefazolin Sodium 1000 mg/Sodium Chloride 100 ml @ 200 mls/hr Q12H IV 10/24/17 03:00 11/03/17 14:26 (Haldol Inj) 5 mg Q4H PRN IV PUSH 10/23/17 23:30 10/26/17 23:39 (Lopressor) 25 mg Q8HR PO 10/25/17 22:00 11/03/17 14:24 (Sodium Chloride) 1 gm DAILY PO 10/26/17 09:00 11/03/17 08:34 (Ferrous Sulfate) 325 mg BID@12,17 PO 10/27/17 12:00 11/03/17 12:18 Cefepime HCl 2000 mg/Sodium Chloride 100 ml @ 200 mls/hr Q48H IV 10/30/17 16:00 11/01/17 16:00 (Zyvox) 600 mg Q12HR PO 10/30/17 14:00 11/03/17 08:34 (Tylenol) 500 mg Q6HR PO 10/31/17 00:00 11/03/17 12:18 (Roxicodone) 5 mg Q6H PRN PO 10/30/17 20:00 11/03/17 14:24 (Zanaflex) 2 mg Q8HR PO 10/30/17 22:00 11/03/17 14:24 (Neurontin) 300 mg TID PO 10/31/17 18:00 11/03/17 12:18 (Atarax) 50 mg Q8H PRN PO 10/31/17 17:15 11/03/17 02:58 (Cymbalta Dr) 60 mg DAILY PO 11/03/17 12:00 11/03/17 12:17 Lines Line sites with no e.o infection Past Medical History Asthma HCV Past Surgical History No surgical history per records. Allergies: Coded Allergies: erythromycin base (Verified Allergy, Severe, Nausea/Vomiting, 10/03/17) raspberry (Unverified Allergy, Mild, 10/03/17) Objective . Vital Signs Date Time Temp Pulse Resp B/P (MAP) Pulse Ox O2 Delivery O2 Flow Rate FiO2 11/04/17 08:30 98 Nasal Cannula 3.00 11/04/17 08:00 Nasal Cannula 4.00 11/04/17 08:00 88 11/04/17 08:00 97.0 95 20 91/67 (75) 96 11/04/17 04:36 100 11/04/17 04:00 97.4 104 20 103/55 (71) 95 11/04/17 00:00 Nasal Cannula 4.00 11/03/17 23:52 93 11/03/17 20:24 99 Nasal Cannula 3.00 11/03/17 20:00 98.4 99 18 92/53 (66) 93 11/03/17 19:58 92 11/03/17 19:00 4.00 11/03/17 16:05 97.8 110 19 104/60 (75) 97 11/03/17 16:00 102 11/03/17 14:24 97 Nasal Cannula 4.00 11/03/17 12:05 98.2 115 19 101/60 (74) 97 Imaging Chest X-Ray 10/30/17 0000 Signed Impressions: Service Date/Time: October 17:04 - CONCLUSION: Increasing bilateral scattered pulmonary infiltrates compared to the prior study. Victorino Vang MD Liver Ultrasound 10/24/17 0000 Signed Impressions: Service Date/Time: Tuesday, October 24, 2017 16:43 - CONCLUSION: Hepatosplenomegaly with ascites. Echogenic kidney Madi Mccartney MD Abdomen/Pelvis CT 10/24/17 0000 Signed Impressions: Service Date/Time: Tuesday, October 24, 2017 21:37 - CONCLUSION: 1. Hepatosplenomegaly. 2. Moderate amount of ascites. 3. Diffuse anasarca. 4. Bibasilar pleural effusions and scattered infiltrates. Khoi Padilla MD Tunnelled Chest Tube Removal 10/20/17 0000 Signed Impressions: Service Date/Time: Friday, October 20, 2017 00:00 - CONCLUSION: Uncomplicated chest tube removal. Madi Mccartney MD Chest CT 10/14/17 0000 Signed Impressions: Service Date/Time: Saturday, October 14, 2017 00:26 - CONCLUSION: 1. Bilateral scattered pulmonary nodules are again noted. Several of the right nodules are now cavitary and likely represent septic emboli given the history of IV drug abuse. 2. Interval placement of bilateral chest tubes with small pleural effusions noted. 3. Dense consolidation remains in the posterior lower lobes. Jorge Jang MD Upper Extremity Ultrasound 10/13/17 0000 Signed Impressions: Service Date/Time: Friday, October 13, 2017 11:25 - CONCLUSION: Normal examination. Christian Kaur MD Abdomen X-Ray 10/10/17 0000 Signed Impressions: Service Date/Time: Tuesday, October 10, 2017 16:46 - CONCLUSION: Negative for free air or obstruction. Rahul Yarbrough MD FACR Chest Tube Insertion 10/06/17 0000 Signed Impressions: Service Date/Time: Friday, October 06, 2017 15:37 - CONCLUSION: Uncomplicated chest tube placement as above. Emerson Hui MD Physical Exam GENERAL: Awake, and following commands, up in chair, looks comfortable at rest SKIN: No generalized rash. Cool and dry. Multiple tattoos. HEAD: Atraumatic. Normocephalic. No temporal or scalp tenderness. EYES: Pupils equal round and reactive. Extraocular motions intact. No petechia, no hemorrhage ENT: Moist oral mucosa, no nasal drainage NECK: Trachea midline. Supple, nontender, no meningeal signs. CARDIOVASCULAR: Has systolic murmur RESPIRATORY: Decreased air entry bilaterally bases. GASTROINTESTINAL: Abdomen soft, not tender, (+) BS, distended. MUSCULOSKELETAL: Extremities without clubbing, cyanosis. (+) bilateral pedal edema. No embolic lesion seen. NEUROLOGICAL: Awake, follows commands Psych cooperative IV line sites with no e.o infection. 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 Pneumonia: septic emboli, aspiration pneumonia. - CT chest 11/03 improving Respiratory failure, self extubated 10/17 IVDA: heroin, cocaine and methamphetamine. Acute renal failure: Sepsis, meds,contrast. - on HD Low platelets: ? meds, sepsis. HIT. Ascites: 3rd spacing vs infection related. Recs: Continue Ancef IV (for MSSA TV endocarditis) Continue Cefepime IV (for possible HCAP given increased secretions and pneumonia on clinical exam) DC Zyvox oral(low platelets). Send HIT panel as low platelets were prior to Zyvox and Cefepime. Patient has been on Heparin for DVT prophylaxis and in HD sessions. Sputum Cx Need 2D ECHO report to assess valve function as cause for resp issues. Repeat CT reviewed: new area of septic embolus related consolidation. Abdomen distended: has moderate ascites on prior CT from 10/30/2017. Repeat US if large volume ascites would recommend paracentesis as it might help with resp work of breathing. Diagnostic and therapeutic please send studies for lab and micro. Pulm consult dw Monitor progress D/W Dr Dorman (HEPAS) Lakia Macias MD Nov 04, 2017 11:08
--- NOTE | 2017-11-04 12:11 | MB ---
cc: Jony Bustamante MD DATE OF CONSULT: 11/03/2017 REFERRING PHYSICIAN: Dr. Macias. REASON FOR CONSULTATION: Lung infiltrates. HISTORY OF PRESENT ILLNESS: Mr. New is a 27-year-old male with history of IV drug abuse, with MSSA sepsis, tricuspid valve endocarditis and pneumonia. He is being treated with antibiotic, Ancef, Zyvox and cefepime. He complains of pain mostly in his back and the buttocks area, has mild shortness of breath. No fever, no chest pain, no nausea or vomiting. He had CT scan of the chest shows he has moderate improvement than the previous study, showing consolidation of the right middle lobe. LABORATORY DATA: His CBC showed WBC count 13.5, hemoglobin 8.1, hematocrit 23.6, MCV 86, platelet count 100. Sodium 130, potassium 3.7, CO2 24, BUN 35, creatinine 5.35. PAST MEDICAL HISTORY: Significant for endocarditis, hepatitis C, IV drug use. MEDICATIONS: Currently taking duloxetine 60 milligrams a day, Neurontin 300 milligrams three times a day, Atarax 50 milligrams every 8 hours, Tylenol 500 milligrams every 6 hours, tizanidine 2 milligrams every 8 hours, oxycodone 5 milligrams for pain, cefepime 2 grams every 48 hours, Zyvox 600 milligrams every 12 hours, ferrous sulfate 325 milligrams a day, metoprolol 25 mg a day , Haldol 5 milligrams injection as needed, Protonix 40 milligrams a day, heparin 5 milligrams every 12 hours, albuterol/atrovent nebulizer treatment, Flovent inhaler 44 micrograms 2 puffs twice a day. ALLERGIES: HE IS ALLERGIC TO ERYTHROMYCIN AND RASPBERRY. SOCIAL HISTORY: He is single. Has a history of smoking 1 pack a day and IV drugs. He denies alcohol abuse. 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 FAMILY HISTORY: No children. Both parents are alive. REVIEW OF SYSTEMS: Feels weak and tired. Appetite is fair. Complains of back pain. No seizures, stroke, or epilepsy. PHYSICAL EXAMINATION: GENERAL: Moderate malnourished male, mild short of breath and weak. VITAL SIGNS: His blood pressure 101/60, heart rate 115, respiration 19, temperature 98.2. HEENT: Examination unremarkable. NECK: Supple. JVD not raised. CHEST: Equal good air entry bilaterally, no rhonchi or wheeze. CARDIOVASCULAR: S1 normal. ABDOMEN: Soft, mildly distended, nontender, bowel sounds are present. EXTREMITIES: He has a body full of tattoos. He has 1+ pedal edema. IMPRESSION: 1. Lung infiltrate, improving. 2. Small pleural effusion. 3. Abdominal distention. 4. Methicillin-sensitive staphylococcus aureus, endocarditis/pneumonia. PLAN: I discussed with the patient, he is on 2 liters nasal canula and feels better. We will monitor his CP, continue his present antibiotic per ID recommendation. He has renal failure, monitor his renal function. Further treatment will depend on his course in the hospital. Thank you Dr. Macias for this consult. MD PEBBLES Sebastian/EMMA , 04:37 PM , 05:44 PM [email or web address]
--- NOTE | 2017-11-04 12:21 | HHI.NPPN ---
Subjective Complaints: Shortness of Breath Renal Failure: Acute History of Present Illness Patient is 27-year-old male who reported to ER with body aches, 7 days of diarrhea with development fever. Past medical history of IV drug use. Patient is sedated and ventilated FiO2 at 40 %. Nephrology is consulted for ZEUS and fluid over load status. Patients creatinine is 3.02 and GFR 25ml/min. Patient is UOP at 800cc for last 24 hours. Weight has increased by over 10 kg since admission. IVF's have been stopped and lasix has been given. Patient has endocarditis with large tricuspid valve vegetation, and pulmonic vegetation. Noted to have bacteremia with hypotension with SBP in the 90's. Additional Remarks Patient resting comfortable this morning. No complaints. (Venus Barrett) Review of Systems Respiratory Lungs: SOB Respiratory Remarks mild (Venus Barrett) Cardiovascular Cardiac Remarks denies CP (Venus Barrett) Psych Psych: Depression, Anxiety (Venus Barrett) Objective Data Data Vital Signs Date Time Temp Pulse Resp B/P (MAP) Pulse Ox O2 Delivery O2 Flow Rate FiO2 11/04/17 08:30 98 Nasal Cannula 3.00 11/04/17 08:00 Nasal Cannula 4.00 11/04/17 08:00 88 11/04/17 08:00 97.0 95 20 91/67 (75) 96 11/04/17 04:36 100 11/04/17 04:00 97.4 104 20 103/55 (71) 95 11/04/17 00:00 Nasal Cannula 4.00 11/03/17 23:52 93 11/03/17 20:24 99 Nasal Cannula 3.00 11/03/17 20:00 98.4 99 18 92/53 (66) 93 11/03/17 19:58 92 11/03/17 19:00 4.00 11/03/17 16:05 97.8 110 19 104/60 (75) 97 11/03/17 16:00 102 11/03/17 14:24 97 Nasal Cannula 4.00 (Venus Barrett) -: 10/31/17 0615 10/31/17 0615 Tubes & Lines: Vas-Cath (Venus Barrett) Physical Exam General Appearance: No Acute Distress, Comfortable (Venus BarrettP) Eyes Eye Exam: Pupils Equal (Venus Barrett) Pulmonary Resp Exam: Decreased Bases, Diminished Breath Sounds (Venus BarrettP) Cardiology CV Exam: Tachycardia (Venus Barrett) Gastrointestinal/Abdomen GI Exam: Soft, Non-Tender, Bowel Sounds Present, Distended (Venus Barrett) Integumentary Skin Exam: Clear, Warm (Venus Barrett) Extremeties Extremities Exam: Moderate Edema (Venus Barrett) Neurologic Neuro Exam: Alert, Awake (Venus Barrett) Psychiatric Psych Exam: Appropriate Responses (Venus Barrett) Assessment/Plan Assessment Summary: ZEUS/Acute Renal Failure Electrolyte Assessment: Hyponatremia Problem List: (1) ZEUS (acute kidney injury) ICD Codes: N17.9 - Acute kidney failure, unspecified Plan: ZEUS most likely ATN from sepsis and low blood pressure. Other differential will be ATN, Acute interstitial nephritis, and Post infectious GN,unlikely. HD started on 10/08 Plan Avoid nephrotoxins. Anemia continue Epogen with dialysis Follow the urine out put and BMP. Dialysis currently T//SA Dialysis scheduled for today Watch for renal recovery. (2) Sepsis ICD Codes: A41.9 - Sepsis, unspecified organism Status: Acute Plan: Antibiotics per ID (3) Endocarditis ICD Codes: I38 - Endocarditis, valve unspecified Status: Acute (Venus Barrett) Problem List: (1) ZEUS (acute kidney injury) ICD Codes: N17.9 - Acute kidney failure, unspecified Plan: ZEUS most likely ATN from sepsis and low blood pressure. Other differential will be ATN, Acute interstitial nephritis, and Post infectious GN,unlikely. HD started on 10/08 Plan Avoid nephrotoxins. Anemia continue Epogen with dialysis Follow the urine out put and BMP. Dialysis currently T/TH/SA Dialysis scheduled for today Watch for renal recovery. Patient seen and examined, agree with above. No improvement in the renal function so far. (2) Sepsis ICD Codes: A41.9 - Sepsis, unspecified organism Status: Acute Plan: Antibiotics per ID (3) Endocarditis ICD Codes: I38 - Endocarditis, valve unspecified Status: Acute (Darek Tapia MD) Problem Qualifiers (1) Sepsis: Qualified Codes: A41.9 - Sepsis, unspecified organism (2) Endocarditis: Venus Barrett Nov 04, 2017 12:20 Darek Tapia MD Nov 04, 2017 20:39
[2017-11-04] MEDS: FERROUS SULFATE 325 MG (65 MG ELEMENTAL IRON) TAB PO SCH ×3 (12:26→18:16)
[2017-11-04] MEDS: RESP: ALBUTEROL 2.5 MG/3 ML NEB (PRN) NEB (14:32)
--- NOTE | 2017-11-04 15:34 | HHI.PR ---
Subjective Remarks Follow-up on endocarditis. No deteriorations overnight per nursing. Patient has no new complaints. Denies any worsening shortness of breath. Objective Vital Signs Date Time Temp Pulse Resp B/P (MAP) Pulse Ox O2 Delivery O2 Flow Rate FiO2 11/04/17 12:00 97.2 96 20 106/74 (85) 92 11/04/17 08:30 98 Nasal Cannula 3.00 11/04/17 08:00 Nasal Cannula 4.00 11/04/17 08:00 88 11/04/17 08:00 97.0 95 20 91/67 (75) 96 11/04/17 04:36 100 11/04/17 04:00 97.4 104 20 103/55 (71) 95 11/04/17 00:00 Nasal Cannula 4.00 11/03/17 23:52 93 11/03/17 20:24 99 Nasal Cannula 3.00 11/03/17 20:00 98.4 99 18 92/53 (66) 93 11/03/17 19:58 92 11/03/17 19:00 4.00 11/03/17 16:05 97.8 110 19 104/60 (75) 97 11/03/17 16:00 102 I/O 11/03/17 11/03/17 11/03/17 11/04/17 11/04/17 11/04/17 07:00 15:00 23:00 07:00 15:00 23:00 Intake Total 500 ml 360 ml 300 ml Output Total 0 ml Balance 500 ml 360 ml 300 ml Intake Oral 400 ml 360 ml 200 ml IV Total 100 ml 100 ml Output Urine Total 0 ml # Voids 3 0 # Bowel Movements 0 1 0 Result Diagram: 10/31/17 0615 10/31/17 0615 Objective Remarks Systolic gallop heard S1-S2, unlabored breathing, lying in bed, awake, alert, no acute distress mild-moderate to LE edema BL unchanged from yesterday Sitting up in bed, no acute distress, not tearful today A/P Assessment and Plan New infiltrates on right middle lobe per CT scan -Pulmonology consult per ID, ID managing antibiotics Chronic hypoxemic respiratory failure -reaching a plateau at about 3 L, now likely chronic -Likely multifactorial, secondary septic emboli pneumonia and heart failure, treated all as below Loculated left effusion, large right effusion - Extubated 10/17 (Self extubated while on CPAP for planned extubation) - IR placed left chest tube 10/06 with more than 1 L exudative fluid out. Removed 10/20 - right-sided pigtail chest tube at the bedside 10/09, brown tinged fluid approximately 1.1 L initial output, now output is minimum. Removed right chest tube 10/18/17. - Broad-spectrum antibiotics per ID, see below - Incentive spirometry while awake/Albuterol/ipratropium aerosols as well as EzPAP - Fluticasone Extensive septic emboli, consolidation of the lung Large tricuspid valve vegetation Small pericardial effusion Acute systolic heart failure Mild pulmonary hypertension - Bedside echo shows large tricuspid vegetation. repeat bedside echo today 10/18 similar size - Cardiology and CT surgery has followed. D/W Dr. Charles declined surgery due to active IV drug use, multiple medical complications. Discussed with [facility] who agreed with plan of our cardiothoracic surgeon. [facility] administration has denied the patient as well per CM. - CARMEN 10/04: EF 45-50 %. Large mobile vegetation on tricuspid valve, 2 separate vegetations 2.1 x 3.2 cm and 2.6 x 0.8 cm. PIP 40.7 mmHg -Echo 10/20 -EF 35-40%. Tricuspid valve vegetation Currently on metoprolol tartrate Repeat echocardiogram is pending per infectious disease IVDU -switched morhine 2mg q4hr to dilaudid 0.5 IV q6hrs prn breakthrough. Added norco 10/325 po q6hrs prn pain 6-10 instead of morphine -Continue Fentanyl patch 75 mcg every 72 hours. Taper as tolerated. -Palliative care following. -Dr. Barry gave recs regarding pain regimen. Hepatosplenomegaly Diarrhea Hypoalbuminemia Hepatitis C genotype 1A Elevated ceruloplasmin MARTÍN +40 diffuse Elevated total bilirubin Elevated AST -Pantoprazole - Hepatitis C reactive. Genotype 1a Viral load 10,700 Hepatic ultrasound revealed hepatosplenomegaly.. CT abdomen/pelvis 10/24 revealed no obvious hepatic, pancreatic, nephrotic versus musculoskeletal source. Hepatosplenomegaly. Moderate ascites. Anasarca. CPK and troponin normal. CRF - on hemodialysis 10/08,above. - Continue intermittent HD for fluid removal. - 10/14-removed vas catheter. Replaced on 10/16 Tricuspid and pulmonic valve endocarditis Septic emboli to the lung Severe sepsis MSSA bacteremia - Discussed with Dr. Charles CT surgery 10/05/17, 10/19, deemed not a surgical candidate - Cefazolin per ID Dr. Macias. 10/22 discontinued vancomycin 125 mg 4 times daily. 3/to discontinue rifampin due to elevated AST. Currently on zyvox and cefepime IV - Persistent MSSA bacteremia 10/04, 10/05 10/07 blood cultures, cultures reviewed. Blood cultures from 10/13 negative; has been afebrile recently. Anemia requiring transfusion Leukocytosis Normocytic anemia - currently stable - LDH mildly elevated and haptoglobin normal, Transfusion 1u PRBC on 10/14, 10/17 and 10/23 and 10/25 - Thrombocytopenia most likely from sepsis and DIC has resolved PT following Hyponatremia -nephrology managing, suspect 2/2 CHF Depression, discussed with psychiatry, patient is capable of making his own decisions medically speaking and it is safe to continue with Cymbalta while on linezolid as the risk of actual serotonin syndrome is realistically low. Relayed to palliative care, if ID deems pt poor prognosis can re-discuss palliative/comfort measures. Pt's mother not agreeable to comfort plan but she is not the medical decision-maker. Discharge Planning Pt has no payor source. Pt currently on HD. ID, palliative care, [facility] following; no outside accepting facility. not a surgical candidate. Continue abx as only option for tx at this time; better prognosis assessment with repeat echo results Nicolas Dorman MD Nov 04, 2017 15:34
[2017-11-04] MEDS: EPOETIN ALFA 10,000 UNITS/ML VIAL IV PUSH PRN (17:04)
[2017-11-04] MEDS: GENTAMICIN SULFATE 20 MG/2 ML VIAL OTHER PRN (17:05)
[2017-11-04] MEDS: ALBUMIN 25% INJ 100 ML IV PRN ×2 (17:06→17:07)
[2017-11-04] MEDS: HEPARIN SODIUM - IV 10,000 UNITS/10 ML VIAL PRN (17:06)
--- NOTE | 2017-11-04 19:43 | HHI.PR ---
Subjective Remarks 27 YOWM with bilat infilt, pl eff, MSSA Endocarditis up in chair Cough with small amount of sp Has swelling of ext Objective Vital Signs Vital Signs Date Time Temp Pulse Resp B/P (MAP) Pulse Ox O2 Delivery O2 Flow Rate FiO2 11/04/17 12:00 91 11/04/17 12:00 97.2 96 20 106/74 (85) 92 11/04/17 08:30 98 Nasal Cannula 3.00 11/04/17 08:00 Nasal Cannula 4.00 11/04/17 08:00 88 11/04/17 08:00 97.0 95 20 91/67 (75) 96 11/04/17 04:36 100 11/04/17 04:00 97.4 104 20 103/55 (71) 95 11/04/17 00:00 Nasal Cannula 4.00 11/03/17 23:52 93 11/03/17 20:24 99 Nasal Cannula 3.00 11/03/17 20:00 98.4 99 18 92/53 (66) 93 11/03/17 19:58 92 I/O 11/03/17 11/03/17 11/03/17 11/04/17 11/04/17 11/04/17 07:00 15:00 23:00 07:00 15:00 23:00 Intake Total 500 ml 360 ml 300 ml Output Total 0 ml 3100 ml Balance 500 ml 360 ml 300 ml -3100 ml Intake Oral 400 ml 360 ml 200 ml IV Total 100 ml 100 ml Output Urine Total 0 ml Hemodialysis 3100 ml # Voids 3 0 # Bowel Movements 0 1 0 1 Result Diagram: 10/31/1761410/31/17614 Objective Remarks GENERAL: MBMN WM, mild sob SKIN: Warm and dry. HEAD: Normocephalic. EYES: No scleral icterus. No injection or drainage. NECK: Supple, trachea midline. No JVD or lymphadenopathy. CARDIOVASCULAR: Regular rate and rhythm without murmurs, gallops, or rubs. RESPIRATORY: Breath sounds equal bilaterally. No accessory muscle use. GASTROINTESTINAL: Abdomen soft, non-tender, nondistended. Abd distended, non tender MUSCULOSKELETAL: No cyanosis, ++ edema. BACK: Nontender without obvious deformity. No CVA tenderness. A/P Assessment and Plan Bilat infilterates improving Pl eff small Abd distension MSSA Endocarditis renal failure PLAN: Aerosol nebs Cont Abx per ID Monitor lytes Supplement 02 Pl eff small, will monitor Jony Bustamante MD Nov 04, 2017 19:43
--- NOTE | 2017-11-04 23:06 | RADRPT ---
EXAM DATE/TIME: 11/04/2017 17:54 [facility] COMPARISON: US ABDOMEN - LIVER, October 24, 2017, 16:43. INDICATIONS : Abdomen pain. MEDICAL HISTORY : Methicillin-resistant Staphylococcus aureus. Hepatitis C. IVDU. Endocarditis. Abdomen pain. Asthma. Dyspnea. Depression. Anxiety. SURGICAL HISTORY : None. ENCOUNTER: Initial ACUITY: 1 day PAIN SCORE: 1/10 LOCATION: Abdomen. MEASUREMENTS: LIVER: 24.9 cm length COMMON DUCT: 8 mm RIGHT KIDNEY: 13.1 x 7.5 x 6.1 cm LEFT KIDNEY: 14.0 x 7.2 x 6.7 cm SPLEEN: 22.3 cm length AORTA: 2.3cm maximal FINDINGS: LIVER: Normal echotexture without focal lesion or ductal dilatation. COMMON DUCT: No intraluminal mass or stone visualized. GALLBLADDER: Contains no stones, demonstrates no wall thickening or pericholecystic fluid.Gallbladder is contracte d. PANCREAS: The visualized portions are within normal limits. RIGHT KIDNEY: No hydronephrosis, stone or mass. Mildly echogenic. LEFT KIDNEY: No hydronephrosis, stone or mass.Mildly echogenic. SPLEEN: No focal lesion. AORTA: Non aneurysmal. IVC: Within normal limits. There is moderate ascites. CONCLUSION: Nonspecific hepatosplenomegaly again noted. There is moderate ascites and is increased from the prior CT and ultrasound. Mildly echogenic kidneys again noted typical of chronic parenchymal disease. No o bstructive uropathy seen. Madi Aguilar MD on November 04, 2017 at 23:02 Board Certified Radiologist. This report was verified electronically.
[2017-11-05] VITALS (9 sets, daily range): BP systolic 88–101; BP diastolic 48–65; PULSE 92–115; RESP 17–20; TEMP 97.2–98.1; O2SAT 90–97
[2017-11-05] MEDS: CHLORHEXIDINE GLUCONATE 2 % 1 PACK (2 CLOTHS) TOP SCH (03:04)
[2017-11-05] MEDS: ACETAMINOPHEN 500 MG CPLT PO SCH ×4 (05:25→18:19)
[2017-11-05] MEDS: METOPROLOL TARTRATE 25 MG TAB PO SCH ×3 (05:47→21:59)
[2017-11-05 06:47] LABS: HEMATOCRIT 23.2 % (39.0-51.0); HEMOGLOBIN 7.8 GM/DL (13.0-17.0); MEAN CELL VOLUME 86.2 FL (80.0-100.0); MEAN CORPUSCULAR HEMOGLOBIN 29.2 PG (27.0-34.0); MEAN CORPUSCULAR HGB CONC 33.9 % (32.0-36.0); MEAN PLATELET VOLUME 7.8 FL (7.0-11.0); PLATELET COUNT 104 TH/MM3 (150-450); RED BLOOD COUNT 2.69 MIL/MM3 (4.50-5.90); RED CELL DISTRIBUTION WIDTH 20.3 % (11.6-17.2); WHITE BLOOD COUNT 9.7 TH/MM3 (4.0-11.0)
[2017-11-05 07:20] LABS: BICARBONATE 26.5 MEQ/L (21.0-32.0); CALCIUM 8.1 MG/DL (8.5-10.1); CREATININE 5.31 MG/DL (0.60-1.30)
[2017-11-05] MEDS: CHLORHEXIDINE 0.12% (ORAL KIT) 15 ML CUP MT SCH ×2 (08:00→20:00)
[2017-11-05] MEDS: COLLAGENASE OINT 30 GM TUBE TOPICAL SCH (09:00)
[2017-11-05] MEDS: DOCUSATE SODIUM 50 MG/SENNA 8.6 MG TAB PO SCH ×2 (10:01→22:00)
[2017-11-05] MEDS: GABAPENTIN 100 MG CAP PO SCH ×2 (10:02→12:43)
[2017-11-05] MEDS: LACTOBACILLUS ACIDOPHILUS TAB PO SCH ×3 (10:02→18:18)
[2017-11-05] MEDS: PANTOPRAZOLE SOD 40 MG DELAYED RELEASE TAB PO SCH ×2 (10:02→22:00)
[2017-11-05] MEDS: DULoxetine HCl DR 60 MG CAP PO SCH (10:02)
[2017-11-05] MEDS: HEPARIN SODIUM - SQ 10,000 UNITS/ML VIAL SQ SCH ×2 (10:02→22:01)
--- NOTE | 2017-11-05 10:02 | HHI.NPPN ---
Subjective Complaints: Shortness of Breath Renal Failure: Acute History of Present Illness Patient is 27-year-old male who reported to ER with body aches, 7 days of diarrhea with development fever. Past medical history of IV drug use. Patient is sedated and ventilated FiO2 at 40 %. Nephrology is consulted for ZEUS and fluid over load status. Patients creatinine is 3.02 and GFR 25ml/min. Patient is UOP at 800cc for last 24 hours. Weight has increased by over 10 kg since admission. IVF's have been stopped and lasix has been given. Patient has endocarditis with large tricuspid valve vegetation, and pulmonic vegetation. Noted to have bacteremia with hypotension with SBP in the 90's. Additional Remarks Patient resting comfortable this morning. Condition unchanged (Venus Barrett) Review of Systems Respiratory Lungs: SOB Respiratory Remarks mild (Venus Barrett) Cardiovascular Cardiac Remarks denies CP (Venus Barrett) Psych Psych: Depression, Anxiety (Venus Barrett) Objective Data Data Vital Signs Date Time Temp Pulse Resp B/P (MAP) Pulse Ox O2 Delivery O2 Flow Rate FiO2 11/05/17 08:06 97.7 110 17 101/57 (72) 90 11/05/17 04:00 98.0 107 20 97/65 (76) 95 11/05/17 00:00 98.1 115 20 98/48 (65) 94 11/04/17 21:19 Nasal Cannula 2.00 11/04/17 20:04 131 11/04/17 20:00 98.2 124 18 111/50 (70) 92 11/04/17 19:00 Nasal Cannula 4.00 11/04/17 12:00 91 11/04/17 12:00 97.2 96 20 106/74 (85) 92 (Venus Barrett) -: 11/05/17 0520 11/05/17 0520 Microbiology 11/04/17 Gram Stain, Received Pending 11/04/17 Sputum Culture, Received Pending Tubes & Lines: Vas-Cath (Venus Barrett) Physical Exam General Appearance: No Acute Distress, Comfortable (Venus Barrett) Eyes Eye Exam: Pupils Equal (Venus Barrett) Pulmonary Resp Exam: Decreased Bases, Diminished Breath Sounds (Venus Barrett) Cardiology CV Exam: Tachycardia (Venus Barrett) Gastrointestinal/Abdomen GI Exam: Soft, Non-Tender, Bowel Sounds Present, Distended (Venus Barrett) Integumentary Skin Exam: Clear, Warm (Venus Barrett) Extremeties Extremities Exam: Moderate Edema (Venus Barrett) Neurologic Neuro Exam: Alert, Awake (Venus Barrett) Psychiatric Psych Exam: Appropriate Responses (Venus Barrett) Assessment/Plan Assessment Summary: ZEUS/Acute Renal Failure Electrolyte Assessment: Hyponatremia Problem List: (1) ZEUS (acute kidney injury) ICD Codes: N17.9 - Acute kidney failure, unspecified Plan: ZEUS most likely ATN from sepsis and low blood pressure. Other differential will be ATN, Acute interstitial nephritis, and Post infectious GN,unlikely. HD started on 10/08 Plan Avoid nephrotoxins. Anemia continue Epogen with dialysis Continue phoslo Follow the urine out put and BMP. Dialysis currently T/TH/SA Dialysis yesterday with 3 liters removed Watch for renal recovery thus far no improvement in the renal function. Dialysis for tomorrow (2) Sepsis ICD Codes: A41.9 - Sepsis, unspecified organism Status: Acute Plan: Antibiotics per ID (3) Endocarditis ICD Codes: I38 - Endocarditis, valve unspecified Status: Acute Plan: antibiotics renal dosing (Venus Barrett) Problem List: (1) ZEUS (acute kidney injury) ICD Codes: N17.9 - Acute kidney failure, unspecified Plan: ZEUS most likely ATN from sepsis and low blood pressure. Other differential will be ATN, Acute interstitial nephritis, and Post infectious GN,unlikely. HD started on 10/08 Plan Avoid nephrotoxins. Anemia continue Epogen with dialysis Continue phoslo Follow the urine out put and BMP. Dialysis currently T/TH/SA Dialysis yesterday with 3 liters removed Watch for renal recovery thus far no improvement in the renal function. Dialysis for tomorrow. Patient seen and examined, agree with above. Creatinine is still elevated. (2) Sepsis ICD Codes: A41.9 - Sepsis, unspecified organism Status: Acute Plan: Antibiotics per ID (3) Endocarditis ICD Codes: I38 - Endocarditis, valve unspecified Status: Acute Plan: antibiotics renal dosing (Darek Tapia MD) Problem Qualifiers (1) Sepsis: Qualified Codes: A41.9 - Sepsis, unspecified organism (2) Endocarditis: Venus Barrett Nov 05, 2017 10:02 Darek Tapia MD Nov 05, 2017 22:01
[2017-11-05] MEDS: SODIUM CHLORIDE 1 GRAM TAB PO SCH (10:03)
[2017-11-05] MEDS: SODIUM CHLORIDE 0.9% FLUSH 10 ML FLUSH IV FLUSH SCH ×2 (10:03→22:00)
[2017-11-05] MEDS: CALCIUM ACETATE 667 MG CAP PO SCH ×3 (10:03→18:18)
[2017-11-05] MEDS: FLUTICASONE PROPIONATE 44 MCG/ACT 10.6 GM INHALER INH SCH ×2 (10:04→22:01)
[2017-11-05] MEDS: RESP: ALBUTEROL 2.5 MG/3 ML NEB (PRN) NEB (11:28)
[2017-11-05] MEDS: REMOVE OLD PATCH T-DERMAL SCH (12:00)
[2017-11-05] MEDS: FERROUS SULFATE 325 MG (65 MG ELEMENTAL IRON) TAB PO SCH ×2 (12:43→18:19)
[2017-11-05] MEDS: ONDANSETRON HCL 4 MG/2 ML VIAL IV PUSH PRN (12:44)
[2017-11-05] MEDS: fentaNYL 100 MCG/HR PATCH T-DERMAL SCH (12:52)
--- NOTE | 2017-11-05 14:55 | HHI.PR ---
Subjective Remarks Follow-up on endocarditis. No deteriorations overnight per nursing. Patient has no new complaints. Denies any worsening shortness of breath. Says he feels okay this morning. Objective Vital Signs Date Time Temp Pulse Resp B/P (MAP) Pulse Ox O2 Delivery O2 Flow Rate FiO2 11/05/17 12:06 97.2 111 18 88/56 (67) 91 11/05/17 11:31 92 Nasal Cannula 2.00 11/05/17 08:06 97.7 110 17 101/57 (72) 90 11/05/17 08:00 Nasal Cannula 4.00 11/05/17 07:53 107 11/05/17 04:00 98.0 107 20 97/65 (76) 95 11/05/17 00:00 98.1 115 20 98/48 (65) 94 11/04/17 21:19 Nasal Cannula 2.00 11/04/17 20:04 131 11/04/17 20:00 98.2 124 18 111/50 (70) 92 11/04/17 19:00 Nasal Cannula 4.00 I/O 11/04/17 11/04/17 11/04/17 11/05/17 11/05/17 11/05/17 07:00 15:00 23:00 07:00 15:00 23:00 Intake Total 300 ml 0 ml 0 ml Output Total 3100 ml 0 ml Balance 300 ml -3100 ml 0 ml Intake Oral 200 ml 0 ml 0 ml IV Total 100 ml Output Urine Total 0 ml Hemodialysis 3100 ml # Voids 0 # Bowel Movements 0 1 Result Diagram: 11/05/17 0520 11/05/17 0520 Objective Remarks unlabored breathing, lying in bed, awake, alert, no acute distress mild-moderate to LE edema BL unchanged from yesterday Sitting up in bed, no acute distress A/P Assessment and Plan right middle lobe per CT scan -Pulmonology consult per ID, ID managing antibiotics Chronic hypoxemic respiratory failure -reaching a plateau at about 3 L, now likely chronic -Likely multifactorial, secondary septic emboli pneumonia and heart failure, treated all as below Extensive septic emboli, consolidation of the lung Large tricuspid valve vegetation Small pericardial effusion Acute systolic heart failure Mild pulmonary hypertension - Bedside echo shows large tricuspid vegetation. repeat bedside echo today 10/18 similar size - Cardiology and CT surgery has followed. D/W Dr. Charles declined surgery due to active IV drug use, multiple medical complications. Discussed with Psychiatric who agreed with plan of our cardiothoracic surgeon. [facility] administration has denied the patient as well per CM. - CARMEN 10/04: EF 45-50 %. Large mobile vegetation on tricuspid valve, 2 separate vegetations 2.1 x 3.2 cm and 2.6 x 0.8 cm. PIP 40.7 mmHg -Echo 10/20 -EF 35-40%. Tricuspid valve vegetation Currently on metoprolol tartrate Repeat echocardiogram shows relatively unchanged size of vegetations. Loculated left effusion, large right effusion - Extubated 10/17 (Self extubated while on CPAP for planned extubation) - IR placed left chest tube 10/06 with more than 1 L exudative fluid out. Removed 10/20 - right-sided pigtail chest tube at the bedside 10/09, brown tinged fluid approximately 1.1 L initial output, now output is minimum. Removed right chest tube 10/18/17. - Broad-spectrum antibiotics per ID, see below - Incentive spirometry while awake/Albuterol/ipratropium aerosols as well as EzPAP - Fluticasone IVDU -switched morhine 2mg q4hr to dilaudid 0.5 IV q6hrs prn breakthrough. Added norco 10/325 po q6hrs prn pain 6-10 instead of morphine -Continue Fentanyl patch 75 mcg every 72 hours. Taper as tolerated. -Palliative care following. -Dr. Barry gave recs regarding pain regimen. Hepatosplenomegaly Diarrhea Hypoalbuminemia Hepatitis C genotype 1A Elevated ceruloplasmin MARTÍN +40 diffuse Elevated total bilirubin Elevated AST -Pantoprazole - Hepatitis C reactive. Genotype 1a Viral load 10,700 Hepatic ultrasound revealed hepatosplenomegaly.. CT abdomen/pelvis 10/24 revealed no obvious hepatic, pancreatic, nephrotic versus musculoskeletal source. Hepatosplenomegaly. Moderate ascites. Anasarca. CPK and troponin normal. CRF - on hemodialysis 10/08,above. - Continue intermittent HD for fluid removal. - 10/14-removed vas catheter. Replaced on 10/16 Tricuspid and pulmonic valve endocarditis/Septic emboli to the lung/MSSA bacteremia - CT deemed not a surgical candidate - Cefazolin per ID Dr. Macias. 10/22 discontinued vancomycin 125 mg 4 times daily. 3/to discontinue rifampin due to elevated AST. Currently on zyvox and cefepime IV - Persistent MSSA bacteremia 10/04, 10/05 10/07 blood cultures, cultures reviewed. Blood cultures from 10/13 negative; has been afebrile recently. Anemia requiring transfusion - currently stable - LDH mildly elevated and haptoglobin normal, Transfusion 1u PRBC on 10/14, 10/17 and 10/23 and 33 Thrombocytopenia -Most likely from sepsis and DIC recently, but checking hit panel per infectious disease request PT following Hyponatremia -nephrology managing, suspect 2/2 CHF Depression - cymbalta Discharge Planning Pt has no payor source. Pt currently on HD. ID, palliative care, [facility] following; no outside accepting facility. not a surgical candidate. Continue abx as only option for tx at this time; better prognosis assessment with repeat echo results Discharge Planning Patient is not operable per cardiothoracic surgery from [place], [place], apparently Early input as well. Medical management for the time being per infectious disease. Nicolas Dorman MD Nov 05, 2017 14:55
[2017-11-05 15:11] LABS: HEPARIN INDUCED PLATELET AB NEGATIVE (NEGATIVE)
[2017-11-05] MEDS: CEFEPIME INJ 2,000 MG in SODIUM CHLORIDE 0.9% INJ 100 ML IV SCH (18:18)
--- NOTE | 2017-11-05 18:33 | ECHRPT ---
Indication: follow up endocarditis CONCLUSIONS Normal left ventricular size. Wall thickness is normal. The left ventricular systolic function is moderately reduced with an estimated ejection fraction in the range of 35-40%. There is evidence of increased right atrial pressure. The right atrial size is moderately dilated. Trace mitral valve regurgitation. Findings consistent with 2 large vegetation on the tricuspid valve 2.7x1.4 and 1.5x1.5 cm. There is moderate to severe tricuspid regurgitation. There is a small pericardial effusion present. A small left sided pleural effusion is noted. BP: 104 / 60 HR: 124 Rhythm: MEASUREMENTS (Male / Female) Normal Values Technical Quality:Good 2D ECHO LV Diastolic Diameter PLAX 5.1 cm 4.2 - 5.9 / 3.9 - 5.3 cm LV Systolic Diameter PLAX 4.3 cm IVS Diastolic Thickness 1.0 cm 0.6 - 1.0 / 0.6 - 0.9 cm LVPW Diastolic Thickness 0.8 cm 0.6 - 1.0 / 0.6 - 0.9 cm LV Relative Wall Thickness 0.3 RV Internal Dim ED PLAX 3.2 cm LA Systolic Diameter LX 3.6 cm 3.0 - 4.0 / 2.7 - 3.8 cm M-MODE Aortic Root Diameter MM 3.6 cm AV Cusp Separation MM 2.6 cm DOPPLER Mitral E Point Velocity 44.4 cm/s Mitral A Point Velocity 56.8 cm/s Mitral E to A Ratio 0.8 TR Peak Velocity 202.0 cm/s TR Peak Gradient 16.3 mmHg FINDINGS LEFT VENTRICLE Normal left ventricular size. Wall thickness is normal. The left ventricular systolic function is moderately reduced with an estimated ejection fraction in the range of 35-40%. RIGHT VENTRICLE Normal right ventricular size and systolic function. LEFT ATRIUM The left atrial size is normal. RIGHT ATRIUM There is evidence of increased right atrial pressure. The right atrial size is moderately dilated. ATRIAL SEPTUM Normal atrial septal thickness without atrial level shunting by limited color doppler interrogation. AORTA The aortic root and proximal ascending aorta are normal in size on limited imaging. MITRAL VALVE Trace mitral valve regurgitation. AORTIC VALVE Trileaflet aortic valve. No aortic valve stenosis or regurgitation. TRICUSPID VALVE Findings consistent with 2 large vegetation on the tricuspid valve 2.7x1.4 and 1.5x1.5 There is moderate to severe tricuspid regurgitation. PULMONARY VALVE No pulmonary valve regurgitation or stenosis. VESSELS The inferior vena cava is normal in size. PERICARDIUM There is a small pericardial effusion present. A small left sided pleural effusion is noted. Balbir Wu MD, FACC (Electronically Signed) Final Date:05 November 2017 18:32
--- NOTE | 2017-11-05 19:59 | HHI.PR ---
Subjective Remarks 27 YOWM with bilat infilt, pl eff, MSSA Endocarditis up in chair Cough with small amount of sp Has swelling of ext No new complaint Objective Vital Signs Vital Signs Date Time Temp Pulse Resp B/P (MAP) Pulse Ox O2 Delivery O2 Flow Rate FiO2 11/05/17 19:19 20 11/05/17 16:06 97.2 92 18 90/50 (63) 91 11/05/17 13:34 20 11/05/17 13:34 20 11/05/17 12:45 110 20 90/54 (66) 11/05/17 12:06 97.2 111 18 88/56 (67) 91 11/05/17 11:31 92 Nasal Cannula 2.00 11/05/17 08:06 97.7 110 17 101/57 (72) 90 11/05/17 08:00 Nasal Cannula 4.00 11/05/17 07:53 107 11/05/17 04:00 98.0 107 20 97/65 (76) 95 11/05/17 00:00 98.1 115 20 98/48 (65) 94 11/04/17 21:19 Nasal Cannula 2.00 11/04/17 20:04 131 11/04/17 20:00 98.2 124 18 111/50 (70) 92 I/O 11/04/17 11/04/17 11/04/17 11/05/17 11/05/17 11/05/17 07:00 15:00 23:00 07:00 15:00 23:00 Intake Total 300 ml 0 ml 0 ml 720 ml Output Total 3100 ml 0 ml Balance 300 ml -3100 ml 0 ml 720 ml Intake Oral 200 ml 0 ml 0 ml 720 ml IV Total 100 ml Output Urine Total 0 ml Hemodialysis 3100 ml # Voids 0 0 # Bowel Movements 0 1 0 Result Diagram: 11/05/17 0520 11/05/17 0520 Objective Remarks GENERAL: MBMN WM, mild sob SKIN: Warm and dry. HEAD: Normocephalic. EYES: No scleral icterus. No injection or drainage. NECK: Supple, trachea midline. No JVD or lymphadenopathy. CARDIOVASCULAR: Regular rate and rhythm without murmurs, gallops, or rubs. RESPIRATORY: Breath sounds equal bilaterally. No accessory muscle use. GASTROINTESTINAL: Abdomen soft, non-tender, nondistended. Abd distended, non tender MUSCULOSKELETAL: No cyanosis, ++ edema. BACK: Nontender without obvious deformity. No CVA tenderness. A/P Assessment and Plan Bilat infilterates improving Pl eff small Abd distension MSSA Endocarditis renal failure PLAN: Aerosol nebs Cont Abx per ID Monitor lytes Supplement 02 Pl eff small, will monitor HD per renal Jony Bustamante MD Nov 05, 2017 19:59
[2017-11-06] VITALS (7 sets, daily range): BP systolic 81–91; BP diastolic 47–58; PULSE 91–110; RESP 18–20; TEMP 97.5–98; O2SAT 93–97
[2017-11-06] MEDS: CHLORHEXIDINE GLUCONATE 2 % 1 PACK (2 CLOTHS) TOP SCH (03:58)
[2017-11-06] MEDS: METOPROLOL TARTRATE 25 MG TAB PO SCH ×3 (05:34→21:39)
[2017-11-06] MEDS: ACETAMINOPHEN 500 MG CPLT PO SCH ×4 (05:56→18:00)
[2017-11-06] MEDS: SODIUM CHLORIDE 0.9% FLUSH 10 ML FLUSH IV FLUSH SCH ×2 (09:00→21:00)
[2017-11-06] MEDS: DOCUSATE SODIUM 50 MG/SENNA 8.6 MG TAB PO SCH ×2 (09:00→21:00)
[2017-11-06] MEDS: COLLAGENASE OINT 30 GM TUBE TOPICAL SCH (09:00)
[2017-11-06] MEDS: SODIUM CHLORIDE 1 GRAM TAB PO SCH (09:48)
[2017-11-06] MEDS: CALCIUM ACETATE 667 MG CAP PO SCH ×3 (09:49→18:00)
[2017-11-06] MEDS: HEPARIN SODIUM - SQ 10,000 UNITS/ML VIAL SQ SCH ×2 (09:49→21:38)
[2017-11-06] MEDS: DULoxetine HCl DR 60 MG CAP PO SCH (09:49)
[2017-11-06] MEDS: LACTOBACILLUS ACIDOPHILUS TAB PO SCH ×3 (09:49→21:38)
[2017-11-06] MEDS: PANTOPRAZOLE SOD 40 MG DELAYED RELEASE TAB PO SCH ×2 (09:49→21:38)
[2017-11-06] MEDS: FLUTICASONE PROPIONATE 44 MCG/ACT 10.6 GM INHALER INH SCH ×2 (09:50→21:00)
--- NOTE | 2017-11-06 10:24 | HHI.NPPN ---
Subjective Complaints: Shortness of Breath Renal Failure: Acute History of Present Illness Patient is 27-year-old male who reported to ER with body aches, 7 days of diarrhea with development fever. Past medical history of IV drug use. Patient is sedated and ventilated FiO2 at 40 %. Nephrology is consulted for ZEUS and fluid over load status. Patients creatinine is 3.02 and GFR 25ml/min. Patient is UOP at 800cc for last 24 hours. Weight has increased by over 10 kg since admission. IVF's have been stopped and lasix has been given. Patient has endocarditis with large tricuspid valve vegetation, and pulmonic vegetation. Noted to have bacteremia with hypotension with SBP in the 90's. Additional Remarks Patient is lethargic. Opens eyes to commands. (Venus Barrett) Review of Systems Respiratory Lungs: SOB Respiratory Remarks mild (Venus Barrett) Cardiovascular Cardiac Remarks denies CP (Venus Barrett) Psych Psych: Depression, Anxiety (Venus Barrett) Objective Data Data Vital Signs Date Time Temp Pulse Resp B/P (MAP) Pulse Ox O2 Delivery O2 Flow Rate FiO2 11/06/17 08:06 97.5 104 18 81/58 (66) 93 11/06/17 04:00 100 11/06/17 00:00 98.0 95 20 97 11/06/17 00:00 91 11/06/17 00:00 91/56 (68) 11/05/17 20:00 105 11/05/17 20:00 97.6 97 18 97/53 (68) 97 11/05/17 20:00 Nasal Cannula 4.00 11/05/17 19:19 20 11/05/17 16:06 97.2 92 18 90/50 (63) 91 11/05/17 13:34 20 11/05/17 13:34 20 11/05/17 12:45 110 20 90/54 (66) 11/05/17 12:06 97.2 111 18 88/56 (67) 91 11/05/17 11:31 92 Nasal Cannula 2.00 (Venus Barrett) -: 11/05/17 0520 11/05/17 0520 Tubes & Lines: Vas-Cath (Gellermann,Venus M. STRAW HAT BRUSHER) Physical Exam General Appearance: No Acute Distress, Comfortable (Venus Barrett. STR[employer] HAT BRUSHER) Eyes Eye Exam: Pupils Equal (Venus Barrett STRAW HAT BRUSHER) Pulmonary Resp Exam: Decreased Bases, Diminished Breath Sounds (Venus Barrett. STRAW HAT BRUSHER) Cardiology CV Exam: Tachycardia (Venus Barrett. STRAW HAT BRUSHER) Gastrointestinal/Abdomen GI Exam: Soft, Non-Tender, Bowel Sounds Present, Distended (Venus BarrettP) Integumentary Skin Exam: Clear, Warm (Venus BarrettP) Extremeties Extremities Exam: Moderate Edema (Venus BarrettP) Neurologic Neuro Exam: Alert, Awake (Venus BarrettP) Psychiatric Psych Exam: Appropriate Responses (Venus Barrett) Assessment/Plan Assessment Summary: ZEUS/Acute Renal Failure Electrolyte Assessment: Hyponatremia Problem List: (1) ZEUS (acute kidney injury) ICD Codes: N17.9 - Acute kidney failure, unspecified Plan: ZEUS most likely ATN from sepsis and low blood pressure. Other differential will be ATN, Acute interstitial nephritis, and Post infectious GN,unlikely. HD started on 10/08 Plan Dialysis currently T// Avoid nephrotoxins. Anemia continue Epogen with dialysis Continue phoslo Follow the urine out put and BMP. Continue to watch for renal recovery however thus far no improvement in the renal function. Dialysis scheduled for today (2) Sepsis ICD Codes: A41.9 - Sepsis, unspecified organism Status: Acute Plan: Antibiotics per ID (3) Endocarditis ICD Codes: I38 - Endocarditis, valve unspecified Status: Acute Plan: antibiotics renal dosing (Venus Barrett) Problem List: (1) ZEUS (acute kidney injury) ICD Codes: N17.9 - Acute kidney failure, unspecified Plan: ZEUS most likely ATN from sepsis and low blood pressure. Other differential will be ATN, Acute interstitial nephritis, and Post infectious GN,unlikely. HD started on 10/08 Plan Dialysis currently T/TH/SA Avoid nephrotoxins. Anemia continue Epogen with dialysis Continue phoslo Follow the urine out put and BMP. Continue to watch for renal recovery however thus far no improvement in the renal function. Dialysis scheduled for today. Patient seen and examined, agree with above. BP is on lower side, Metoprolol is on hold for today. (2) Sepsis ICD Codes: A41.9 - Sepsis, unspecified organism Status: Acute Plan: Antibiotics per ID (3) Endocarditis ICD Codes: I38 - Endocarditis, valve unspecified Status: Acute Plan: antibiotics renal dosing (Darek Tapia MD) Problem Qualifiers (1) Sepsis: Qualified Codes: A41.9 - Sepsis, unspecified organism (2) Endocarditis: Venus Barrett Nov 06, 2017 10:24 Darek Tapia MD Nov 06, 2017 14:03
--- NOTE | 2017-11-06 11:11 | HHI.PR ---
Subjective Remarks Follow-up on endocarditis. No deteriorations overnight per nursing. Patient has no new complaints. unchanged shortness of breath. Objective Vital Signs Date Time Temp Pulse Resp B/P (MAP) Pulse Ox O2 Delivery O2 Flow Rate FiO2 11/06/17 08:06 97.5 104 18 81/58 (66) 93 11/06/17 04:00 100 11/06/17 00:00 98.0 95 20 97 11/06/17 00:00 91 11/06/17 00:00 91/56 (68) 11/05/17 20:00 105 11/05/17 20:00 97.6 97 18 97/53 (68) 97 11/05/17 20:00 Nasal Cannula 4.00 11/05/17 19:19 20 11/05/17 16:06 97.2 92 18 90/50 (63) 91 11/05/17 13:34 20 11/05/17 13:34 20 11/05/17 12:45 110 20 90/54 (66) 11/05/17 12:06 97.2 111 18 88/56 (67) 91 11/05/17 11:31 92 Nasal Cannula 2.00 I/O 11/05/17 11/05/17 11/05/17 11/06/17 11/06/17 11/06/17 07:00 15:00 23:00 07:00 15:00 23:00 Intake Total 0 ml 720 ml 400 ml Output Total 0 ml 20 ml Balance 0 ml 720 ml 380 ml Intake Oral 0 ml 720 ml 400 ml Output Urine Total 0 ml 20 ml # Voids 0 # Bowel Movements 0 0 Result Diagram: 11/05/17 0520 11/05/17 0520 Objective Remarks unlabored breathing, lying in bed, awake mild-moderate to LE edema BL unchanged from yesterday Lying in bed, no acute distress A/P Assessment and Plan right middle lobe per CT scan -Pulmonology consult per ID, ID managing antibiotics Chronic hypoxemic respiratory failure -reaching a plateau at about 3 L, now likely chronic -Likely multifactorial, secondary septic emboli pneumonia and heart failure, treated all as below Extensive septic emboli, consolidation of the lung Large tricuspid valve vegetation Small pericardial effusion Acute systolic heart failure Mild pulmonary hypertension - Bedside echo shows large tricuspid vegetation. repeat bedside echo today 10/18 similar size - Cardiology and CT surgery has followed. D/W Dr. Charles declined surgery due to active IV drug use, multiple medical complications. Discussed with [facility] who agreed with plan of our cardiothoracic surgeon. [facility] administration has denied the patient as well per CM. Currently on metoprolol tartrate Tricuspid vegetation sizes' apparently has decreased from 10/20 to 11/05 echos. Discussed with ID, could be reflective of dislodging/showering emboli Loculated left effusion, large right effusion - Extubated 10/17 (Self extubated while on CPAP for planned extubation) - IR placed left chest tube 10/06 with more than 1 L exudative fluid out. Removed 10/20 - right-sided pigtail chest tube at the bedside 10/09, brown tinged fluid approximately 1.1 L initial output, now output is minimum. Removed right chest tube 10/18/17. - Broad-spectrum antibiotics per ID, see below - Incentive spirometry while awake/Albuterol/ipratropium aerosols as well as EzPAP - Fluticasone IVDU -switched morhine 2mg q4hr to dilaudid 0.5 IV q6hrs prn breakthrough. Added norco 10/325 po q6hrs prn pain 6-10 instead of morphine -Continue Fentanyl patch 75 mcg every 72 hours. Taper as tolerated. -Palliative care following. -Dr. Barry gave recs regarding pain regimen. Hepatosplenomegaly Diarrhea Hypoalbuminemia Hepatitis C genotype 1A Elevated ceruloplasmin MARTÍN +1/40 diffuse Elevated total bilirubin Elevated AST -Pantoprazole - Hepatitis C reactive. Genotype 1a Viral load 10,700 Hepatic ultrasound revealed hepatosplenomegaly.. CT abdomen/pelvis 10/24 revealed no obvious hepatic, pancreatic, nephrotic versus musculoskeletal source. Hepatosplenomegaly. Moderate ascites. Anasarca. CPK and troponin normal. CRF - on hemodialysis 10/08,above. - Continue intermittent HD for fluid removal. - 10/14-removed vas catheter. Replaced on 10/16 Tricuspid and pulmonic valve endocarditis/Septic emboli to the lung/MSSA bacteremia - CT deemed not a surgical candidate - Cefazolin per ID Dr. Macias. 10/22 discontinued vancomycin 125 mg 4 times daily. 3/to discontinue rifampin due to elevated AST. Currently on zyvox and cefepime IV - Persistent MSSA bacteremia 10/04, 10/05 10/07 blood cultures, cultures reviewed. Blood cultures from 10/13 negative; has been afebrile recently. Anemia requiring transfusion - currently stable - LDH mildly elevated and haptoglobin normal, Transfusion 1u PRBC on 10/14, 10/17 and 10/23 and 3/3 Thrombocytopenia -Most likely from sepsis and DIC recently, but checking hit panel per infectious disease request PT following Hyponatremia -nephrology managing, suspect 2/2 CHF Depression - cymbalta Discharge Planning Pt has no payor source. Pt currently on HD. ID, palliative care, no outside accepting facility. not a surgical candidate. Continue abx as only option for tx at this time; better prognosis assessment with repeat echo results Discharge Planning Patient is not operable per cardiothoracic surgery from [place], [place], apparently [place] input as well. Medical management for the time being per infectious disease. Nicolas Dorman MD Nov 06, 2017 11:11
--- NOTE | 2017-11-06 13:48 | HHI.IDPN ---
Subjective Subjective Remarks is a 27 y/o CM with remote history of IV drug abuse, states he last used heroin 2 months ago, presents for evaluation of body aches, 7 days of diarrhea with development of subjective fever yesterday. Patient denies any nausea or vomiting. He denies any chest pain. This has developed within the last 24 hours. Patient does have a cough with clear sputum. Denies any prior history of endocarditis. Denies any abdominal pain. Does report some left back pain, worse while lying flat. He is well reports generalized weakness. Patient met criteria for sepsis on admission. Flu antigen negative. CXR with bilateral infiltrates. performed a bedside 2D ECHO and verbally reported a large ~4.5 cm vegetation on TV. CXR suspicious for septic emboli. Blood cultures drawn but it appears patient has received augmentin at some point and cultures may possibly be negative. ID is following for evaluation and M'ment of Severe Sepsis and Endocarditis. Notes reviewed Temps ok Complains of shortness of breath on exertion. Sitting in a chair. Undergoes HD. BP ok No rash No diarrhea US abdomen with moderate ascitic fluid. Antibiotics Reported Meds & Active Scripts Active Methocarbamol 500 Mg Tab 500 Mg PO QID Naproxen 500 Mg Tab 500 Mg PO BID Flovent Hfa (Fluticasone Propionate) 44 Mcg Aero 2 Puff INH BID Kelsie-D 24 Hour Allergy (Fexofenadine-Pseudoephedrine) 24 Hour Tab 24 Hour OR DAILY Augmentin (Amoxicillin/Clavulanate Potassium) 875 Mg Tab 875 Mg PO BID Reported Proventil Mdi (Albuterol Sulfate) 17 Gm Aero Lines Line sites with no e.o infection Past Medical History Asthma HCV Past Surgical History No surgical history per records. Allergies: Coded Allergies: erythromycin base (Verified Allergy, Severe, Nausea/Vomiting, 10/03/17) raspberry (Unverified Allergy, Mild, 10/03/17) Objective . Vital Signs Date Time Temp Pulse Resp B/P (MAP) Pulse Ox O2 Delivery O2 Flow Rate FiO2 11/06/17 12:24 97.7 110 18 83/51 (62) 95 11/06/17 08:06 97.5 104 18 81/58 (66) 93 11/06/17 04:00 100 11/06/17 00:00 98.0 95 20 97 11/06/17 00:00 91 11/06/17 00:00 91/56 (68) 11/05/17 20:00 105 11/05/17 20:00 97.6 97 18 97/53 (68) 97 11/05/17 20:00 Nasal Cannula 4.00 11/05/17 19:19 20 11/05/17 16:06 97.2 92 18 90/50 (63) 91 . Laboratory Tests Test 11/05/17 05:20 White Blood Count 9.7 TH/MM3 Red Blood Count 2.69 MIL/MM3 Hemoglobin 7.8 GM/DL Hematocrit 23.2 % Mean Corpuscular Volume 86.2 FL Mean Corpuscular Hemoglobin 29.2 PG Mean Corpuscular Hemoglobin Concent 33.9 % Red Cell Distribution Width 20.3 % Platelet Count 104 TH/MM3 Mean Platelet Volume 7.8 FL Laboratory Tests Test 11/05/17 05:20 Blood Urea Nitrogen 35 MG/DL Creatinine 5.31 MG/DL Random Glucose 78 MG/DL Calcium Level 8.1 MG/DL Phosphorus Level 5.0 MG/DL Sodium Level 131 MEQ/L Potassium Level 3.5 MEQ/L Chloride Level 93 MEQ/L Carbon Dioxide Level 26.5 MEQ/L Anion Gap 12 MEQ/L Estimat Glomerular Filtration Rate 13 ML/MIN Microbiology Date/Time Source Procedure Growth Status 11/04/17 19:41 Sputum Expectorated Sputum Gram Stain - Final Complete 11/04/17 19:41 Sputum Expectorated Sputum Sputum Culture - Final HEAVY GROWTH NORMAL RESPIRATORY HERI Complete Imaging Chest X-Ray 10/30/17 0000 Signed Impressions: Service Date/Time: October 17:04 - CONCLUSION: Increasing bilateral scattered pulmonary infiltrates compared to the prior study. Victorino Vang MD Liver Ultrasound 10/24/17 0000 Signed Impressions: Service Date/Time: Tuesday, October 24, 2017 16:43 - CONCLUSION: Hepatosplenomegaly with ascites. Echogenic kidney Madi Mccartney MD Abdomen/Pelvis CT 10/24/17 0000 Signed Impressions: Service Date/Time: Tuesday, October 24, 2017 21:37 - CONCLUSION: 1. Hepatosplenomegaly. 2. Moderate amount of ascites. 3. Diffuse anasarca. 4. Bibasilar pleural effusions and scattered infiltrates. Khoi Padilla MD Tunnelled Chest Tube Removal 10/20/17 0000 Signed Impressions: Service Date/Time: Friday, October 20, 2017 00:00 - CONCLUSION: Uncomplicated chest tube removal. Madi Mccartney MD Chest CT 10/14/17 0000 Signed Impressions: Service Date/Time: Saturday, October 14, 2017 00:26 - CONCLUSION: 1. Bilateral scattered pulmonary nodules are again noted. Several of the right nodules are now cavitary and likely represent septic emboli given the history of IV drug abuse. 2. Interval placement of bilateral chest tubes with small pleural effusions noted. 3. Dense consolidation remains in the posterior lower lobes. Jorge Jang MD Upper Extremity Ultrasound 10/13/17 0000 Signed Impressions: Service Date/Time: Friday, October 13, 2017 11:25 - CONCLUSION: Normal examination. Christian Kaur MD Abdomen X-Ray 10/10/17 0000 Signed Impressions: Service Date/Time: Tuesday, October 10, 2017 16:46 - CONCLUSION: Negative for free air or obstruction. Rahul Yarbrough MD FACR Chest Tube Insertion 10/06/17 0000 Signed Impressions: Service Date/Time: Friday, October 06, 2017 15:37 - CONCLUSION: Uncomplicated chest tube placement as above. Emerson Hui MD Physical Exam GENERAL: Awake, and following commands, up in chair, looks comfortable at rest SKIN: No generalized rash. Cool and dry. Multiple tattoos. HEAD: Atraumatic. Normocephalic. No temporal or scalp tenderness. EYES: Pupils equal round and reactive. Extraocular motions intact. No petechia, no hemorrhage ENT: Moist oral mucosa, no nasal drainage NECK: Trachea midline. Supple, nontender, no meningeal signs. CARDIOVASCULAR: Has systolic murmur RESPIRATORY: Decreased air entry bilaterally bases. GASTROINTESTINAL: Abdomen soft, not tender, (+) BS, distended. MUSCULOSKELETAL: Extremities without clubbing, cyanosis. (+) bilateral pedal edema. No embolic lesion seen. NEUROLOGICAL: Awake, follows commands Psych cooperative IV line sites with no e.o infection. 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 MR. Ascites: likely from 3rd spacing. Bilateral pleural effusions: left side appears loculated possible empyema. Pneumonia: septic emboli, aspiration pneumonia. - CT chest 11/03 improving Respiratory failure, self extubated 10/17 IVDA: heroin, cocaine and methamphetamine. Acute renal failure: Sepsis, meds,contrast. - on HD Low platelets: ? meds, sepsis. HIT. Ascites: 3rd spacing vs infection related. Recs: Continue Ancef IV (for MSSA TV endocarditis) DC Cefepime Sputum Cx with normal resp heri. 2D ECHO moderate to severe TR. US with moderately large volume ascites recommend paracentesis as it might help with resp work of breathing. Diagnostic and therapeutic please send studies for lab and micro. Appreciate pulm consult. Monitor progress D/W Dr Dorman ([facility]) dw RN I will be OOT from 11/07 - 11/16/2017. Other ID MDs covering for me. Lakia Macias MD Nov 06, 2017 13:48
[2017-11-06] MEDS: GABAPENTIN 100 MG CAP PO SCH (13:50)
[2017-11-06] MEDS: FERROUS SULFATE 325 MG (65 MG ELEMENTAL IRON) TAB PO SCH ×2 (13:50→17:00)
--- NOTE | 2017-11-06 14:19 | HHI.HCSW ---
Mentally Impaired Teacher Visit Follow Up Visit Palliative care continues to follow along with Mr. New throughout hospitalization. Attempted to see today for ongoing emotional support. Patient is currently off the floor. Goals remain unchanged at this time. Palliative care will be available as needed. Radha Barry, LITIGATION SUPPORT ANALYST Nov 06, 2017 14:19
[2017-11-06] MEDS: MANNITOL 12.5 GM/50 ML VIAL IV PRN (14:30)
[2017-11-06] MEDS: ALBUMIN 25% INJ 100 ML IV PRN (14:30)
[2017-11-06] MEDS: HEPARIN SODIUM - IV 10,000 UNITS/10 ML VIAL PRN (17:27)
[2017-11-06] MEDS: GENTAMICIN SULFATE 20 MG/2 ML VIAL OTHER PRN (17:28)
[2017-11-06] MEDS: EPOETIN ALFA 10,000 UNITS/ML VIAL IV PUSH PRN (17:28)
--- NOTE | 2017-11-06 19:13 | HHI.PR ---
Subjective Remarks 27 YOWM with bilat infilt, pl eff, MSSA Endocarditis up in chair Cough with small amount of sp Has swelling of ext No new complaint Had HD Objective Vital Signs Vital Signs Date Time Temp Pulse Resp B/P (MAP) Pulse Ox O2 Delivery O2 Flow Rate FiO2 11/06/17 12:24 97.7 110 18 83/51 (62) 95 11/06/17 09:00 Nasal Cannula 4.00 11/06/17 08:06 97.5 104 18 81/58 (66) 93 11/06/17 07:37 106 11/06/17 04:00 100 11/06/17 00:00 98.0 95 20 97 11/06/17 00:00 91 11/06/17 00:00 91/56 (68) 11/05/17 20:00 105 11/05/17 20:00 97.6 97 18 97/53 (68) 97 11/05/17 20:00 Nasal Cannula 4.00 11/05/17 19:19 20 I/O 11/05/17 11/05/17 11/05/17 11/06/17 11/06/17 11/06/17 07:00 15:00 23:00 07:00 15:00 23:00 Intake Total 0 ml 720 ml 400 ml 600 ml Output Total 0 ml 20 ml Balance 0 ml 720 ml 380 ml 600 ml Intake Oral 0 ml 720 ml 400 ml 600 ml Output Urine Total 0 ml 20 ml # Voids 0 0 # Bowel Movements 0 0 Result Diagram: 11/05/17 0520 11/05/17 0520 Objective Remarks GENERAL: MBMN WM, mild sob SKIN: Warm and dry. HEAD: Normocephalic. EYES: No scleral icterus. No injection or drainage. NECK: Supple, trachea midline. No JVD or lymphadenopathy. CARDIOVASCULAR: Regular rate and rhythm without murmurs, gallops, or rubs. RESPIRATORY: Breath sounds equal bilaterally. No accessory muscle use. GASTROINTESTINAL: Abdomen soft, non-tender, nondistended. Abd distended, non tender MUSCULOSKELETAL: No cyanosis, ++ edema. BACK: Nontender without obvious deformity. No CVA tenderness. A/P Assessment and Plan Bilat infilterates improving Pl eff small Abd distension MSSA Endocarditis renal failure PLAN: Aerosol nebs Cont Abx per ID Monitor lytes Supplement 02 Pl eff small, will monitor HD per renal Aneja,Jony Dev MD Nov 06, 2017 19:13
[2017-11-06] MEDS: CHLORHEXIDINE 0.12% (ORAL KIT) 15 ML CUP MT SCH (19:30)
[2017-11-07] VITALS (7 sets, daily range): BP systolic 89–146; BP diastolic 50–85; PULSE 93–124; RESP 18–20; TEMP 96.9–98.1; O2SAT 91–96
[2017-11-07] MEDS: CHLORHEXIDINE GLUCONATE 2 % 1 PACK (2 CLOTHS) TOP SCH (02:57)
[2017-11-07] MEDS: ACETAMINOPHEN 500 MG CPLT PO SCH ×5 (05:35→22:52)
[2017-11-07] MEDS: METOPROLOL TARTRATE 25 MG TAB PO SCH ×3 (05:36→21:23)
[2017-11-07] MEDS: SODIUM CHLORIDE 0.9% FLUSH 10 ML FLUSH IV FLUSH SCH ×2 (07:25→21:00)
[2017-11-07] MEDS: CHLORHEXIDINE 0.12% (ORAL KIT) 15 ML CUP MT SCH ×2 (07:37→20:00)
[2017-11-07 08:49] LABS: HEMATOCRIT 25.7 % (39.0-51.0); HEMOGLOBIN 8.5 GM/DL (13.0-17.0); MEAN CELL VOLUME 87.5 FL (80.0-100.0); MEAN CORPUSCULAR HEMOGLOBIN 28.9 PG (27.0-34.0); MEAN CORPUSCULAR HGB CONC 33.1 % (32.0-36.0); MEAN PLATELET VOLUME 8.3 FL (7.0-11.0); PLATELET COUNT 139 TH/MM3 (150-450); RED BLOOD COUNT 2.94 MIL/MM3 (4.50-5.90); RED CELL DISTRIBUTION WIDTH 19.8 % (11.6-17.2); WHITE BLOOD COUNT 13.9 TH/MM3 (4.0-11.0)
[2017-11-07] MEDS: DOCUSATE SODIUM 50 MG/SENNA 8.6 MG TAB PO SCH ×2 (08:50→21:00)
[2017-11-07] MEDS: CALCIUM ACETATE 667 MG CAP PO SCH ×3 (08:50→17:55)
[2017-11-07] MEDS: SODIUM CHLORIDE 1 GRAM TAB PO SCH (08:50)
[2017-11-07] MEDS: FLUTICASONE PROPIONATE 44 MCG/ACT 10.6 GM INHALER INH SCH ×2 (08:50→21:00)
[2017-11-07] MEDS: PANTOPRAZOLE SOD 40 MG DELAYED RELEASE TAB PO SCH ×2 (08:50→21:23)
[2017-11-07] MEDS: LACTOBACILLUS ACIDOPHILUS TAB PO SCH ×3 (08:50→17:54)
[2017-11-07] MEDS: DULoxetine HCl DR 60 MG CAP PO SCH (08:50)
[2017-11-07] MEDS: COLLAGENASE OINT 30 GM TUBE TOPICAL SCH (08:51)
[2017-11-07 08:54] LABS: INTERNATIONAL NORMALIZED RATIO 1.7 RATIO; PROTHROMBIN TIME - PATIENT 17.4 SEC (9.8-11.6)
--- NOTE | 2017-11-07 08:55 | HHI.PR ---
Subjective Remarks 27 YOWM with bilat infilt, pl eff, MSSA Endocarditis up in chair Cough with small amount of sp Swelling legs decreased No new complaint C/O Hurting all over Objective Vital Signs Vital Signs Date Time Temp Pulse Resp B/P (MAP) Pulse Ox O2 Delivery O2 Flow Rate FiO2 11/07/17 08:00 97.0 116 18 89/54 (66) 92 11/07/17 04:00 98.1 107 20 93/50 (64) 95 11/07/17 04:00 Nasal Cannula 4.00 11/07/17 04:00 105 11/07/17 00:00 Nasal Cannula 4.00 11/07/17 00:00 96 11/07/17 00:00 97.9 93 20 146/85 (105) 91 11/06/17 20:00 96 11/06/17 20:00 Nasal Cannula 4.00 11/06/17 18:00 97.8 96 20 88/47 (61) 97 11/06/17 12:24 97.7 110 18 83/51 (62) 95 11/06/17 09:00 Nasal Cannula 4.00 I/O 11/06/17 11/06/17 11/06/17 11/07/17 11/07/17 11/07/17 07:00 15:00 23:00 07:00 15:00 23:00 Intake Total 400 ml 600 ml 580 ml Output Total 20 ml Balance 380 ml 600 ml 580 ml Intake Oral 400 ml 600 ml 480 ml IV Total 100 ml Output Urine Total 20 ml # Voids 0 # Bowel Movements 0 Result Diagram: 11/05/17 0520 11/05/17 0520 Objective Remarks GENERAL: MBMN WM, mild sob SKIN: Warm and dry. HEAD: Normocephalic. EYES: No scleral icterus. No injection or drainage. NECK: Supple, trachea midline. No JVD or lymphadenopathy. CARDIOVASCULAR: Regular rate and rhythm without murmurs, gallops, or rubs. RESPIRATORY: Breath sounds equal bilaterally. No accessory muscle use. GASTROINTESTINAL: Abdomen soft, non-tender, nondistended. Abd distended, non tender MUSCULOSKELETAL: No cyanosis, ++ edema. BACK: Nontender without obvious deformity. No CVA tenderness. A/P Assessment and Plan Bilat infilterates improving Pl eff small Abd distension MSSA Endocarditis renal failure PLAN: Aerosol nebs Cont Abx per ID Monitor lytes Supplement 02 Pl eff small, will monitor HD per renal Jony Bustamante MD Nov 07, 2017 08:55
[2017-11-07] MEDS: HEPARIN SODIUM - SQ 10,000 UNITS/ML VIAL SQ SCH ×2 (08:57→21:23)
[2017-11-07 09:21] LABS: TOTAL PROTEIN 8.2 GM/DL (6.4-8.2)
[2017-11-07] MEDS: GABAPENTIN 100 MG CAP PO SCH (12:55)
[2017-11-07] MEDS: FERROUS SULFATE 325 MG (65 MG ELEMENTAL IRON) TAB PO SCH ×2 (12:55→16:40)
--- NOTE | 2017-11-07 13:25 | HHI.IDPN ---
Subjective Subjective Remarks ID COVERAGE is a 27 y/o CM with remote history of IV drug abuse, states he last used heroin 2 months ago, presents for evaluation of body aches, 7 days of diarrhea with development of subjective fever yesterday. Patient denies any nausea or vomiting. He denies any chest pain. This has developed within the last 24 hours. Patient does have a cough with clear sputum. Denies any prior history of endocarditis. Denies any abdominal pain. Does report some left back pain, worse while lying flat. He is well reports generalized weakness. Patient met criteria for sepsis on admission. Flu antigen negative. CXR with bilateral infiltrates. performed a bedside 2D ECHO and verbally reported a large ~4.5 cm vegetation on TV. CXR suspicious for septic emboli. Blood cultures drawn but it appears patient has received augmentin at some point and cultures may possibly be negative. ID is following for evaluation and M'ment of Severe Sepsis and Endocarditis. Notes reviewed Had repeat abdominal US Temps ok Complains of [place] Sitting at side of bed BP ok No rash No diarrhea US abdomen 11/04 with moderate ascitic fluid, repeat pending Had HD 11/06 Antibiotics Ancef Current Medications Medications (Trade) Dose Ordered Sig/Willem Route Start Time Stop Time Status Last Admin (NS Flush) 2 ml UNSCH PRN IV FLUSH 10/03/17 21:15 10/15/17 20:58 (NS Flush) 2 ml BID IV FLUSH 10/04/17 09:00 11/07/17 07:25 (Zofran Inj) 4 mg Q6H PRN IV PUSH 10/03/17 21:15 11/05/17 12:44 (Restoril) 15 mg HS PRN PO 10/03/17 21:15 10/27/17 20:29 Miscellaneous Information 1 Q361D XX 10/03/17 21:15 (Chlorhexidine 2% Cloth) Taper DAILY@04 TOP 10/04/17 04:00 09/30/18 03:59 10/26/17 21:40 (Chlorhexidine 2% Cloth) 3 pack UNSCH PRN TOP 10/03/17 21:15 (Renita-Colace) 1 tab BID PO 10/04/17 09:00 11/07/17 08:50 (Senokot) 17.2 mg Q12H PRN PO 10/03/17 21:15 (Dulcolax Supp) 10 mg DAILY PRN RECTAL 10/03/17 21:15 10/11/17 17:08 (Lactulose Liq) 30 ml DAILY PRN PO 10/03/17 21:15 10/11/17 17:08 (Flovent Hfa 44 Mcg Inh) 2 puff BID INH 10/04/17 09:00 11/07/17 08:50 (Peridex 0.12% Liq) 15 ml BID@08,20 MT 10/04/17 20:00 11/07/17 07:37 Sodium Chloride 1,000 ml @ 0 mls/hr Q0M PRN OTHER 10/08/17 10:33 10/25/17 10:39 (Heparin Inj) 8,000 units UNSCH PRN IV FLUSH 10/08/17 10:45 Sodium Chloride 1,000 ml @ 200 mls/hr Q5H PRN IV 10/08/17 11:15 10/11/17 08:57 Sodium Chloride 1,000 ml @ 0 mls/hr Q0M PRN OTHER 10/08/17 11:15 (Mannitol Inj) 12.5 gm UNSCH PRN IV 10/08/17 11:15 11/06/17 14:30 Albumin Human 100 ml @ 60 mls/hr UNSCH PRN IV 10/08/17 11:30 11/06/17 14:30 (NS Flush) 5 ml UNSCH PRN IV FLUSH 10/08/17 11:15 10/25/17 10:40 (Heparin Inj) UNSCH PRN .XX 10/08/17 11:15 11/06/17 17:27 (Gentamicin Inj) 20 mg UNSCH PRN OTHER 10/08/17 11:15 11/04/17 17:05 (Zofran Inj) 4 mg UNSCH PRN IV PUSH 10/08/17 11:15 (Nitrostat Sl) 0.4 mg UNSCH PRN SL 10/08/17 11:30 (Catapres) 0.1 mg UNSCH PRN PO 10/08/17 11:30 (Epogen Inj) 10,000 units UNSCH PRN IV PUSH 10/08/17 11:30 11/06/17 17:28 (Gelfoam 12 Mm/7 Mm Top) 1 foam UNSCH PRN TOP 10/08/17 11:30 (Lactinex) 1 tab TID PO 10/17/17 13:00 11/07/17 12:55 (Duragesic 100 Mcg Patch.72 Hr) 1 patch Q3D T-DERMAL 10/18/17 12:00 11/05/17 12:52 Miscellaneous Information 1 Q3D T-DERMAL 10/21/17 12:00 11/05/17 12:00 (Santyl Oint) 1 applic DAILY TOPICAL 10/20/17 16:00 11/07/17 08:51 (Albuterol Neb) 2.5 mg Q2HR NEB PRN NEB 10/21/17 13:30 11/05/17 11:28 (Protonix) 40 mg Q12HR PO 10/21/17 21:00 11/07/17 08:50 (Heparin Inj) 5,000 units Q12HR SQ 10/21/17 21:00 11/06/17 21:38 (Phoslo) 667 mg TID PO 10/23/17 13:00 11/07/17 12:55 Cefazolin Sodium 1000 mg/Sodium Chloride 100 ml @ 200 mls/hr Q12H IV 10/24/17 03:00 11/07/17 02:52 (Haldol Inj) 5 mg Q4H PRN IV PUSH 10/23/17 23:30 10/26/17 23:39 (Lopressor) 25 mg Q8HR PO 10/25/17 22:00 11/03/17 14:24 (Sodium Chloride) 1 gm DAILY PO 10/26/17 09:00 11/07/17 08:50 (Ferrous Sulfate) 325 mg BID@12,17 PO 10/27/17 12:00 11/07/17 12:55 (Tylenol) 500 mg Q6HR PO 10/31/17 00:00 11/07/17 12:55 (Roxicodone) 5 mg Q6H PRN PO 10/30/17 20:00 11/07/17 02:52 (Zanaflex) 2 mg Q8HR PO 10/30/17 22:00 11/07/17 13:00 (Atarax) 50 mg Q8H PRN PO 10/31/17 17:15 11/03/17 02:58 (Cymbalta Dr) 60 mg DAILY PO 11/03/17 12:00 11/07/17 08:50 (Neurontin) 300 mg Q24H PO 11/06/17 13:00 11/07/17 12:55 Lines Line sites with no e.o infection Past Medical History Asthma HCV Past Surgical History No surgical history per records. Allergies: Coded Allergies: erythromycin base (Verified Allergy, Severe, Nausea/Vomiting, 10/03/17) raspberry (Unverified Allergy, Mild, 10/03/17) Objective . Vital Signs Date Time Temp Pulse Resp B/P (MAP) Pulse Ox O2 Delivery O2 Flow Rate FiO2 11/07/17 13:00 96.9 122 18 95/55 (68) 91 11/07/17 08:00 97.0 116 18 89/54 (66) 92 11/07/17 04:00 98.1 107 20 93/50 (64) 95 11/07/17 04:00 Nasal Cannula 4.00 11/07/17 04:00 105 11/07/17 00:00 Nasal Cannula 4.00 11/07/17 00:00 96 11/07/17 00:00 97.9 93 20 146/85 (105) 91 11/06/17 20:00 96 11/06/17 20:00 Nasal Cannula 4.00 11/06/17 18:00 97.8 96 20 88/47 (61) 97 . Laboratory Tests Test 11/07/17 07:36 White Blood Count 13.9 TH/MM3 Red Blood Count 2.94 MIL/MM3 Hemoglobin 8.5 GM/DL Hematocrit 25.7 % Mean Corpuscular Volume 87.5 FL Mean Corpuscular Hemoglobin 28.9 PG Mean Corpuscular Hemoglobin Concent 33.1 % Red Cell Distribution Width 19.8 % Platelet Count 139 TH/MM3 Mean Platelet Volume 8.3 FL Laboratory Tests Test 11/07/17 07:36 Lactate Dehydrogenase 148 U/L Total Protein 8.2 GM/DL Microbiology Date/Time Source Procedure Growth Status 11/04/17 19:41 Sputum Expectorated Sputum Gram Stain - Final Complete 11/04/17 19:41 Sputum Expectorated Sputum Sputum Culture - Final HEAVY GROWTH NORMAL RESPIRATORY HERI Complete Imaging Chest X-Ray 10/30/17 0000 Signed Impressions: Service Date/Time: October 17:04 - CONCLUSION: Increasing bilateral scattered pulmonary infiltrates compared to the prior study. Victorino Vang MD Liver Ultrasound 10/24/17 0000 Signed Impressions: Service Date/Time: Tuesday, October 24, 2017 16:43 - CONCLUSION: Hepatosplenomegaly with ascites. Echogenic kidney Madi Mccartney MD Abdomen/Pelvis CT 10/24/17 0000 Signed Impressions: Service Date/Time: Tuesday, October 24, 2017 21:37 - CONCLUSION: 1. Hepatosplenomegaly. 2. Moderate amount of ascites. 3. Diffuse anasarca. 4. Bibasilar pleural effusions and scattered infiltrates. Khoi Padilla MD Tunnelled Chest Tube Removal 10/20/17 0000 Signed Impressions: Service Date/Time: Friday, October 20, 2017 00:00 - CONCLUSION: Uncomplicated chest tube removal. Madi Mccartney MD Chest CT 10/14/17 0000 Signed Impressions: Service Date/Time: Saturday, October 14, 2017 00:26 - CONCLUSION: 1. Bilateral scattered pulmonary nodules are again noted. Several of the right nodules are now cavitary and likely represent septic emboli given the history of IV drug abuse. 2. Interval placement of bilateral chest tubes with small pleural effusions noted. 3. Dense consolidation remains in the posterior lower lobes. Jorge Jang MD Upper Extremity Ultrasound 10/13/17 0000 Signed Impressions: Service Date/Time: Friday, October 13, 2017 11:25 - CONCLUSION: Normal examination. Christian Kaur MD Abdomen X-Ray 10/10/17 0000 Signed Impressions: Service Date/Time: Tuesday, October 10, 2017 16:46 - CONCLUSION: Negative for free air or obstruction. Rahul Yarbrough MD FACR Chest Tube Insertion 10/06/17 0000 Signed Impressions: Service Date/Time: Friday, October 06, 2017 15:37 - CONCLUSION: Uncomplicated chest tube placement as above. Emerson Hui MD Physical Exam GENERAL: Awake, and following commands,sitting at side of bed. looks comfortable at rest SKIN: No generalized rash. Cool and dry. Multiple tattoos. HEAD: Atraumatic. Normocephalic. No temporal or scalp tenderness. EYES: Pupils equal round and reactive. Extraocular motions intact. No petechia, no hemorrhage ENT: Moist oral mucosa, no nasal drainage NECK: Trachea midline. Supple, nontender, no meningeal signs. CARDIOVASCULAR: Has systolic murmur RESPIRATORY: Decreased air entry bilaterally bases. GASTROINTESTINAL: Abdomen soft, not tender, (+) BS, distended. MUSCULOSKELETAL: Extremities without clubbing, cyanosis. (+) bilateral pedal edema. No embolic lesion seen. NEUROLOGICAL: Awake, follows commands Psych cooperative IV line sites with no e.o infection. 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 MR. Ascites: likely from 3rd spacing. Bilateral pleural effusions: left side appears loculated possible empyema. Pneumonia: septic emboli, aspiration pneumonia. - CT chest 11/03 improving Respiratory failure, self extubated 10/17 IVDA: heroin, cocaine and methamphetamine. Acute renal failure: Sepsis, meds,contrast. - on HD Low platelets: ? meds, sepsis. HIT. Ascites: 3rd spacing vs infection related. Recs: Continue Ancef IV (for MSSA TV endocarditis) Sputum Cx with normal resp heri. 2D ECHO moderate to severe TR. US with moderately large volume ascites recommend paracentesis as it might help with resp work of breathing. Diagnostic and therapeutic please send studies for lab and micro. - await repeat US Monitor progress Dr Baugh available if needed this weekend Chelsy Kramer MD Nov 07, 2017 13:25
--- NOTE | 2017-11-07 13:40 | RADRPT ---
EXAM DATE/TIME: 11/07/2017 11:36 [facility] COMPARISON: No previous studies available for comparison. INDICATIONS : Evaluate for ascites. MEDICAL HISTORY : Methicillin-resistant Staphylococcus aureus. Hepatitis C. IVDU. Endocarditis. Abdomen pain. Asthma. D yspnea. Depression. Anxiety. SURGICAL HISTORY : None. ENCOUNTER: Subsequent ACUITY: 1 day PAIN SCORE: 0/10 LOCATION: Right lower quadrant AREA EVALUATED: Right lower quadrant. FINDINGS: Imaging of the abdomen and pelvis was performed to evaluate for ascites for possible paracentesis. A moderate amount of ascites was confirmed and a spot was marked for paracentesis. The patient refused the paracentesis procedure and therefore was sent back to the floor. CONCLUSION: Moderate amount of ascites confirmed for subsequent paracentesis but the patient refu sed the procedure and therefore was sent back to the floor. Khoi Padilla MD on November 07, 2017 at 13:36 Board Certified Radiologist. This report was verified electronically.
--- NOTE | 2017-11-07 16:03 | HHI.NPPN ---
Subjective Complaints: Shortness of Breath Renal Failure: Acute History of Present Illness Patient is 27-year-old male who reported to ER with body aches, 7 days of diarrhea with development fever. Past medical history of IV drug use. Patient is sedated and ventilated FiO2 at 40 %. Nephrology is consulted for ZEUS and fluid over load status. Patients creatinine is 3.02 and GFR 25ml/min. Patient is UOP at 800cc for last 24 hours. Weight has increased by over 10 kg since admission. IVF's have been stopped and lasix has been given. Patient has endocarditis with large tricuspid valve vegetation, and pulmonic vegetation. Noted to have bacteremia with hypotension with SBP in the 90's. Additional Remarks Patient is lethargic and sleepy, following verbal commands, not in distress. Review of Systems Respiratory Lungs: SOB Respiratory Remarks mild Cardiovascular Cardiac Remarks denies CP Psych Psych: Depression, Anxiety Objective Data Data Vital Signs Date Time Temp Pulse Resp B/P (MAP) Pulse Ox O2 Delivery O2 Flow Rate FiO2 11/07/17 13:00 96.9 122 18 95/55 (68) 91 11/07/17 08:00 97.0 116 18 89/54 (66) 92 11/07/17 04:00 98.1 107 20 93/50 (64) 95 11/07/17 04:00 Nasal Cannula 4.00 11/07/17 04:00 105 11/07/17 00:00 Nasal Cannula 4.00 11/07/17 00:00 96 11/07/17 00:00 97.9 93 20 146/85 (105) 91 11/06/17 20:00 96 11/06/17 20:00 Nasal Cannula 4.00 11/06/17 18:00 97.8 96 20 88/47 (61) 97 -: 11/07/17 0736 11/05/17 0520 Tubes & Lines: Vas-Cath Physical Exam General Appearance: No Acute Distress, Comfortable Eyes Eye Exam: Pupils Equal Pulmonary Resp Exam: Decreased Bases, Diminished Breath Sounds Cardiology CV Exam: Tachycardia Gastrointestinal/Abdomen GI Exam: Soft, Non-Tender, Bowel Sounds Present, Distended Integumentary Skin Exam: Clear, Warm Extremeties Extremities Exam: Moderate Edema Neurologic Neuro Exam: Alert, Awake Psychiatric Psych Exam: Appropriate Responses Assessment/Plan Assessment Summary: ZEUS/Acute Renal Failure Electrolyte Assessment: Hyponatremia Problem List: (1) ZEUS (acute kidney injury) ICD Codes: N17.9 - Acute kidney failure, unspecified Plan: ZEUS most likely ATN from sepsis and low blood pressure. Other differential will be ATN, Acute interstitial nephritis, and Post infectious GN,unlikely. HD started on 10/08 Plan Dialysis currently T/ Avoid nephrotoxins. Anemia continue Epogen with dialysis Continue phoslo Follow the urine out put and BMP. Continue to watch for renal recovery however thus far no improvement in the renal function. Dialysis to continue TTS. No improvement in renal function so far. Urine out put decreased. D/W the family at bed side. (2) Sepsis ICD Codes: A41.9 - Sepsis, unspecified organism Status: Acute Plan: Antibiotics per ID (3) Endocarditis ICD Codes: I38 - Endocarditis, valve unspecified Status: Acute Plan: antibiotics renal dosing Problem Qualifiers (1) Sepsis: Qualified Codes: A41.9 - Sepsis, unspecified organism (2) Endocarditis: Darek Tapia MD Nov 07, 2017 16:03
--- NOTE | 2017-11-07 19:00 | HHI.PR ---
Subjective Remarks Follow-up on endocarditis. No deteriorations overnight per nursing. Patient has no new complaints. Complaining of the same pain. Objective Vital Signs Date Time Temp Pulse Resp B/P (MAP) Pulse Ox O2 Delivery O2 Flow Rate FiO2 11/07/17 17:13 92 Nasal Cannula 2.00 11/07/17 16:00 97.4 124 18 109/68 (82) 92 11/07/17 13:00 96.9 122 18 95/55 (68) 91 11/07/17 08:00 97.0 116 18 89/54 (66) 92 11/07/17 04:00 98.1 107 20 93/50 (64) 95 11/07/17 04:00 Nasal Cannula 4.00 11/07/17 04:00 105 11/07/17 00:00 Nasal Cannula 4.00 11/07/17 00:00 96 11/07/17 00:00 97.9 93 20 146/85 (105) 91 11/06/17 20:00 96 11/06/17 20:00 Nasal Cannula 4.00 I/O 11/06/17 11/06/17 11/06/17 11/07/17 11/07/17 11/07/17 07:00 15:00 23:00 07:00 15:00 23:00 Intake Total 400 ml 600 ml 580 ml Output Total 20 ml Balance 380 ml 600 ml 580 ml Intake Oral 400 ml 600 ml 480 ml IV Total 100 ml Output Urine Total 20 ml # Voids 0 # Bowel Movements 0 Result Diagram: 11/07/17 0736 11/05/17 0520 Objective Remarks unlabored breathing, lying in bed, awake mild-moderate to LE edema BL unchanged from yesterday A/P Assessment and Plan right middle lobe per CT scan -Pulmonology consult per ID, ID managing antibiotics, namely Zefazone at this time Chronic hypoxemic respiratory failure -reaching a plateau at about 3 L, now likely chronic -Likely multifactorial, secondary septic emboli pneumonia and heart failure, treated all as below Extensive septic emboli, consolidation of the lung Large tricuspid valve vegetation Small pericardial effusion Acute systolic heart failure Mild pulmonary hypertension - Bedside echo shows large tricuspid vegetation. repeat bedside echo today 10/18 similar size - Cardiology and CT surgery has followed. D/W Dr. Charles declined surgery due to active IV drug use, multiple medical complications. Discussed with [facility] who agreed with plan of our cardiothoracic surgeon. [facility] administration has denied the patient as well per CM. Currently on metoprolol tartrate Tricuspid vegetation sizes' apparently has decreased from 10/20 to 11/05 echos. Discussed with ID, could be reflective of dislodging/showering emboli, on cefazolin Loculated left effusion, large right effusion - Extubated 10/17 (Self extubated while on CPAP for planned extubation) - IR placed left chest tube 10/06 with more than 1 L exudative fluid out. Removed 10/20 - right-sided pigtail chest tube at the bedside 10/09, brown tinged fluid approximately 1.1 L initial output, now output is minimum. Removed right chest tube 10/18/17. - Broad-spectrum antibiotics per ID, see below - Incentive spirometry while awake/Albuterol/ipratropium aerosols as well as EzPAP - Fluticasone IVDU -switched morhine 2mg q4hr to dilaudid 0.5 IV q6hrs prn breakthrough. Added norco 10/325 po q6hrs prn pain 6-10 instead of morphine -Continue Fentanyl patch 75 mcg every 72 hours. Taper as tolerated. -Palliative care following. -Dr. Barry gave recs regarding pain regimen. Hepatosplenomegaly Diarrhea Hypoalbuminemia Hepatitis C genotype 1A Elevated ceruloplasmin MARTÍN +1/40 diffuse Elevated total bilirubin Elevated AST -Pantoprazole - Hepatitis C reactive. Genotype 1a Viral load 10,700 Hepatic ultrasound revealed hepatosplenomegaly.. CT abdomen/pelvis 10/24 revealed no obvious hepatic, pancreatic, nephrotic versus musculoskeletal source. Hepatosplenomegaly. Moderate ascites. Anasarca. CPK and troponin normal. CRF - on hemodialysis 10/08,above. - Continue intermittent HD for fluid removal. - 10/14-removed vas catheter. Replaced on 10/16 Tricuspid and pulmonic valve endocarditis/Septic emboli to the lung/MSSA bacteremia - CT deemed not a surgical candidate - Cefazolin per ID Dr. Macias. 10/22 discontinued vancomycin 125 mg 4 times daily. 3/to discontinue rifampin due to elevated AST. Currently on zyvox and cefepime IV - Persistent MSSA bacteremia 10/04, 10/05 10/07 blood cultures, cultures reviewed. Blood cultures from 10/13 negative; has been afebrile recently. Anemia requiring transfusion - currently stable - LDH mildly elevated and haptoglobin normal, Transfusion 1u PRBC on 10/14, 10/17 and 10/23 and 3/3 Thrombocytopenia -Most likely from sepsis and DIC recently, but checking hit panel per infectious disease request PT following Hyponatremia -nephrology managing, suspect 2/2 CHF Depression - cymbalta Discharge Planning Pt has no payor source. Pt currently on HD. ID, palliative care, no outside accepting facility. not a surgical candidate. Continue abx as only option for tx at this time; better prognosis assessment with repeat echo results Discharge Planning Patient is not operable per cardiothoracic surgery from [place], [place], apparently [place] input as well. Medical management for the time being per infectious disease. Nicolas Dorman MD Nov 07, 2017 19:00
[2017-11-08] VITALS (10 sets, daily range): BP systolic 90–127; BP diastolic 53–60; PULSE 90–118; RESP 18–20; TEMP 97.3–98.7; O2SAT 90–96
[2017-11-08] MEDS: CHLORHEXIDINE GLUCONATE 2 % 1 PACK (2 CLOTHS) TOP SCH (01:56)
[2017-11-08] MEDS: METOPROLOL TARTRATE 25 MG TAB PO SCH ×3 (04:06→22:00)
[2017-11-08] MEDS: ACETAMINOPHEN 500 MG CPLT PO SCH ×4 (05:32→23:09)
[2017-11-08] MEDS: CHLORHEXIDINE 0.12% (ORAL KIT) 15 ML CUP MT SCH ×2 (08:00→20:00)
[2017-11-08] MEDS: COLLAGENASE OINT 30 GM TUBE TOPICAL SCH (08:08)
[2017-11-08] MEDS: FLUTICASONE PROPIONATE 44 MCG/ACT 10.6 GM INHALER INH SCH ×2 (08:08→22:13)
[2017-11-08] MEDS: RESP: ALBUTEROL 2.5 MG/3 ML NEB (PRN) NEB ×2 (08:10→18:27)
[2017-11-08] MEDS: SODIUM CHLORIDE 1 GRAM TAB PO SCH (08:25)
[2017-11-08] MEDS: HEPARIN SODIUM - SQ 10,000 UNITS/ML VIAL SQ SCH ×2 (08:25→22:13)
[2017-11-08] MEDS: PANTOPRAZOLE SOD 40 MG DELAYED RELEASE TAB PO SCH ×2 (08:25→22:08)
[2017-11-08] MEDS: CALCIUM ACETATE 667 MG CAP PO SCH ×3 (08:25→17:44)
[2017-11-08] MEDS: DULoxetine HCl DR 60 MG CAP PO SCH (08:25)
[2017-11-08] MEDS: DOCUSATE SODIUM 50 MG/SENNA 8.6 MG TAB PO SCH ×2 (08:25→22:08)
[2017-11-08] MEDS: LACTOBACILLUS ACIDOPHILUS TAB PO SCH ×3 (08:25→17:44)
[2017-11-08] MEDS: SODIUM CHLORIDE 0.9% FLUSH 10 ML FLUSH IV FLUSH SCH ×2 (08:26→21:00)
[2017-11-08] MEDS: HEPARIN SODIUM - IV 10,000 UNITS/10 ML VIAL PRN (09:57)
[2017-11-08] MEDS: SODIUM CHLOR 0.9% 1000 ML INJ 1,000 ML IV PRN (09:57)
[2017-11-08] MEDS: GENTAMICIN SULFATE 20 MG/2 ML VIAL OTHER PRN (09:58)
[2017-11-08] MEDS: EPOETIN ALFA 10,000 UNITS/ML VIAL IV PUSH PRN (09:58)
--- NOTE | 2017-11-08 10:42 | HHI.NPPN ---
Subjective Complaints: Shortness of Breath Renal Failure: Acute History of Present Illness Patient is 27-year-old male who reported to ER with body aches, 7 days of diarrhea with development fever. Past medical history of IV drug use. Patient is sedated and ventilated FiO2 at 40 %. Nephrology is consulted for ZEUS and fluid over load status. Patients creatinine is 3.02 and GFR 25ml/min. Patient is UOP at 800cc for last 24 hours. Weight has increased by over 10 kg since admission. IVF's have been stopped and lasix has been given. Patient has endocarditis with large tricuspid valve vegetation, and pulmonic vegetation. Noted to have bacteremia with hypotension with SBP in the 90's. Additional Remarks Seen on HD, remains lethargic, confused. Review of Systems Respiratory Lungs: SOB Respiratory Remarks mild Cardiovascular Cardiac Remarks denies CP Psych Psych: Depression, Anxiety Objective Data Data Vital Signs Date Time Temp Pulse Resp B/P (MAP) Pulse Ox O2 Delivery O2 Flow Rate FiO2 11/08/17 08:14 91 Nasal Cannula 4.00 11/08/17 08:00 97.3 117 20 127/58 (81) 90 11/08/17 04:00 97.9 108 20 98/57 (71) 92 11/08/17 00:00 Nasal Cannula 4.00 11/08/17 00:00 97.8 105 20 101/54 (70) 92 11/08/17 00:00 101 11/07/17 20:00 Nasal Cannula 4.00 11/07/17 20:00 97.8 118 20 93/51 (65) 96 11/07/17 17:13 92 Nasal Cannula 2.00 11/07/17 16:00 97.4 124 18 109/68 (82) 92 11/07/17 13:00 96.9 122 18 95/55 (68) 91 -: 11/07/17 0736 11/05/17 0520 Tubes & Lines: Vas-Cath Physical Exam General Appearance: No Acute Distress, Comfortable Eyes Eye Exam: Pupils Equal Pulmonary Resp Exam: Decreased Bases, Diminished Breath Sounds Cardiology CV Exam: Tachycardia Gastrointestinal/Abdomen GI Exam: Soft, Non-Tender, Bowel Sounds Present, Distended Integumentary Skin Exam: Clear, Warm Extremeties Extremities Exam: Moderate Edema Neurologic Neuro Exam: Awake Psychiatric Psych Exam: Appropriate Responses Assessment/Plan Assessment Summary: ZEUS/Acute Renal Failure Electrolyte Assessment: Hyponatremia Problem List: (1) ZEUS (acute kidney injury) ICD Codes: N17.9 - Acute kidney failure, unspecified Plan: ZEUS most likely ATN from sepsis and low blood pressure. Other differential will be ATN, Acute interstitial nephritis, and Post infectious GN,unlikely. HD started on 10/08 Plan Dialysis currently T// Avoid nephrotoxins. Anemia continue Epogen with dialysis Continue phoslo Follow the urine out put and BMP. Continue to watch for renal recovery however thus far no improvement in the renal function. Seen on HD today, tolerating HD well. Plan next HD Friday (2) Sepsis ICD Codes: A41.9 - Sepsis, unspecified organism Status: Acute Plan: Antibiotics per ID (3) Endocarditis ICD Codes: I38 - Endocarditis, valve unspecified Status: Acute Plan: antibiotics renal dosing Problem Qualifiers (1) Sepsis: Qualified Codes: A41.9 - Sepsis, unspecified organism (2) Endocarditis: Mendoza Calvo MD Nov 08, 2017 10:42
[2017-11-08] MEDS: REMOVE OLD PATCH T-DERMAL SCH (13:18)
[2017-11-08] MEDS: fentaNYL 100 MCG/HR PATCH T-DERMAL SCH (13:18)
[2017-11-08] MEDS: GABAPENTIN 100 MG CAP PO SCH (13:19)
[2017-11-08] MEDS: FERROUS SULFATE 325 MG (65 MG ELEMENTAL IRON) TAB PO SCH ×2 (13:19→17:44)
--- NOTE | 2017-11-08 14:03 | HHI.PR ---
Subjective Remarks Patient c/o pain in buttocks and tail bone. c/o having chills but denies fevers. Denies abdominal pain, nausea or vomiting. Denies cp/sob. Objective Vitals Vital Signs Date Time Temp Pulse Resp B/P (MAP) Pulse Ox O2 Delivery O2 Flow Rate FiO2 11/08/17 12:00 98.1 114 20 106/55 (72) 92 11/08/17 08:14 91 Nasal Cannula 4.00 11/08/17 08:00 97.3 117 20 127/58 (81) 90 11/08/17 04:00 97.9 108 20 98/57 (71) 92 11/08/17 00:00 Nasal Cannula 4.00 11/08/17 00:00 97.8 105 20 101/54 (70) 92 11/08/17 00:00 101 11/07/17 20:00 Nasal Cannula 4.00 11/07/17 20:00 97.8 118 20 93/51 (65) 96 11/07/17 17:13 92 Nasal Cannula 2.00 11/07/17 16:00 97.4 124 18 109/68 (82) 92 I/O 11/07/17 11/07/17 11/07/17 11/08/17 11/08/17 11/08/17 07:00 15:00 23:00 07:00 15:00 23:00 Intake Total 580 ml 1320 ml 120 ml Balance 580 ml 1320 ml 120 ml Intake Oral 480 ml 1320 ml 120 ml IV Total 100 ml # Voids 1 1 # Bowel Movements 0 Result Diagram: 11/07/17 0736 11/05/17 0520 Imaging Last Impressions Abdomen Ultrasound 11/07/17 0000 Signed Impressions: Service Date/Time: Tuesday, November 07, 2017 11:36 - CONCLUSION: Moderate amount of ascites confirmed for subsequent paracentesis but the patient refused the procedure and therefore was sent back to the floor. Khoi Padilla MD Chest CT 11/03/17 0000 Signed Impressions: Service Date/Time: Friday, November 03, 2017 10:16 - CONCLUSION: Scattered areas of consolidation and scattered nodular foci identified, a overall improved from the previous study however the consolidation in the right middle lobe is increased and is a change from previous studies. Chadwick Diaz MD Chest X-Ray 10/30/17 0000 Signed Impressions: Service Date/Time: October 17:04 - CONCLUSION: Increasing bilateral scattered pulmonary infiltrates compared to the prior study. Victorino Vang MD Liver Ultrasound 10/24/17 0000 Signed Impressions: Service Date/Time: Tuesday, October 24, 2017 16:43 - CONCLUSION: Hepatosplenomegaly with ascites. Echogenic kidney Madi Mccartney MD Abdomen/Pelvis CT 10/24/17 0000 Signed Impressions: Service Date/Time: Tuesday, October 24, 2017 21:37 - CONCLUSION: 1. Hepatosplenomegaly. 2. Moderate amount of ascites. 3. Diffuse anasarca. 4. Bibasilar pleural effusions and scattered infiltrates. Khoi Padilla MD Tunnelled Chest Tube Removal 10/20/17 0000 Signed Impressions: Service Date/Time: Friday, October 20, 2017 00:00 - CONCLUSION: Uncomplicated chest tube removal. Madi Mccartney MD Upper Extremity Ultrasound 10/13/17 0000 Signed Impressions: Service Date/Time: Friday, October 13, 2017 11:25 - CONCLUSION: Normal examination. Christian Kaur MD Abdomen X-Ray 10/10/17 0000 Signed Impressions: Service Date/Time: Tuesday, October 10, 2017 16:46 - CONCLUSION: Negative for free air or obstruction. Rahul Yarbrough MD FACR Chest Tube Insertion 10/06/17 0000 Signed Impressions: Service Date/Time: Friday, October 06, 2017 15:37 - CONCLUSION: Uncomplicated chest tube placement as above. Emerson Hui MD Objective Remarks AAOx3 mild distress due to pain S1S2 RRR, soft 2/6 systolic murmur Abdomen soft, nt, nd no edema in lower extremities Procedures CT-guided chest tube placement on left chest. Date 10/06/17. Medications and IVs Current Medications Medications (Trade) Dose Ordered Sig/Willem Route Start Time Stop Time Status Last Admin (NS Flush) 2 ml UNSCH PRN IV FLUSH 10/03/17 21:15 10/15/17 20:58 (NS Flush) 2 ml BID IV FLUSH 10/04/17 09:00 11/08/17 08:26 (Zofran Inj) 4 mg Q6H PRN IV PUSH 10/03/17 21:15 3/14/18 12:44 (Restoril) 15 mg HS PRN PO 10/03/17 21:15 10/27/17 20:29 Miscellaneous Information 1 Q361D XX 10/03/17 21:15 (Chlorhexidine 2% Cloth) Taper DAILY@04 TOP 10/04/17 04:00 09/30/18 03:59 10/26/17 21:40 (Chlorhexidine 2% Cloth) 3 pack UNSCH PRN TOP 10/03/17 21:15 (Renita-Colace) 1 tab BID PO 10/04/17 09:00 11/07/17 08:50 (Senokot) 17.2 mg Q12H PRN PO 10/03/17 21:15 (Dulcolax Supp) 10 mg DAILY PRN RECTAL 10/03/17 21:15 10/11/17 17:08 (Lactulose Liq) 30 ml DAILY PRN PO 10/03/17 21:15 10/11/17 17:08 (Flovent Hfa 44 Mcg Inh) 2 puff BID INH 10/04/17 09:00 11/08/17 08:08 (Peridex 0.12% Liq) 15 ml BID@08,20 MT 10/04/17 20:00 11/07/17 07:37 Sodium Chloride 1,000 ml @ 0 mls/hr Q0M PRN OTHER 10/08/17 10:33 10/25/17 10:39 (Heparin Inj) 8,000 units UNSCH PRN IV FLUSH 10/08/17 10:45 Sodium Chloride 1,000 ml @ 200 mls/hr Q5H PRN IV 10/08/17 11:15 11/08/17 09:57 Sodium Chloride 1,000 ml @ 0 mls/hr Q0M PRN OTHER 10/08/17 11:15 (Mannitol Inj) 12.5 gm UNSCH PRN IV 10/08/17 11:15 11/06/17 14:30 Albumin Human 100 ml @ 60 mls/hr UNSCH PRN IV 10/08/17 11:30 11/06/17 14:30 (NS Flush) 5 ml UNSCH PRN IV FLUSH 10/08/17 11:15 10/25/17 10:40 (Heparin Inj) UNSCH PRN .XX 10/08/17 11:15 11/08/17 09:57 (Gentamicin Inj) 20 mg UNSCH PRN OTHER 10/08/17 11:15 11/08/17 09:58 (Zofran Inj) 4 mg UNSCH PRN IV PUSH 10/08/17 11:15 (Nitrostat Sl) 0.4 mg UNSCH PRN SL 10/08/17 11:30 (Catapres) 0.1 mg UNSCH PRN PO 10/08/17 11:30 (Epogen Inj) 10,000 units UNSCH PRN IV PUSH 10/08/17 11:30 11/08/17 09:58 (Gelfoam 12 Mm/7 Mm Top) 1 foam UNSCH PRN TOP 10/08/17 11:30 (Lactinex) 1 tab TID PO 10/17/17 13:00 11/08/17 13:19 (Duragesic 100 Mcg Patch.72 Hr) 1 patch Q3D T-DERMAL 10/18/17 12:00 11/08/17 13:18 Miscellaneous Information 1 Q3D T-DERMAL 10/21/17 12:00 11/08/17 13:18 (Santyl Oint) 1 applic DAILY TOPICAL 10/20/17 16:00 11/08/17 08:08 (Albuterol Neb) 2.5 mg Q2HR NEB PRN NEB 10/21/17 13:30 11/08/17 08:10 (Protonix) 40 mg Q12HR PO 10/21/17 21:00 11/08/17 08:25 (Heparin Inj) 5,000 units Q12HR SQ 10/21/17 21:00 11/08/17 08:25 (Phoslo) 667 mg TID PO 10/23/17 13:00 11/08/17 13:19 Cefazolin Sodium 1000 mg/Sodium Chloride 100 ml @ 200 mls/hr Q12H IV 10/24/17 03:00 11/08/17 01:56 (Haldol Inj) 5 mg Q4H PRN IV PUSH 10/23/17 23:30 10/26/17 23:39 (Lopressor) 25 mg Q8HR PO 10/25/17 22:00 11/03/17 14:24 (Sodium Chloride) 1 gm DAILY PO 10/26/17 09:00 11/08/17 08:25 (Ferrous Sulfate) 325 mg BID@12,17 PO 10/27/17 12:00 11/08/17 13:19 (Tylenol) 500 mg Q6HR PO 10/31/17 00:00 11/08/17 13:19 (Roxicodone) 5 mg Q6H PRN PO 10/30/17 20:00 11/08/17 05:36 (Zanaflex) 2 mg Q8HR PO 10/30/17 22:00 11/08/17 05:33 (Atarax) 50 mg Q8H PRN PO 10/31/17 17:15 11/03/17 02:58 (Cymbalta Dr) 60 mg DAILY PO 11/03/17 12:00 11/08/17 08:25 (Neurontin) 300 mg Q24H PO 11/06/17 13:00 11/08/17 13:19 A/P Problem List: (1) Endocarditis ICD Code: I38 - Endocarditis, valve unspecified Status: Acute Plan: 2D echocardiogram as stated above showed a large tricuspid valve vegetation. Repeat bedside echocardiogram on 10/18 showed a similar size vegetation. Cardiology and CT surgery has followed. D/W Dr. Charles declined surgery due to active IV drug use, multiple medical complications. Discussed with [facility] who agreed with plan of our cardiothoracic surgeon. [facility] administration has denied the patient as well per CM. ID consulted. Continue IV antibiotics as per ID. Currently on IV cefazolin. (2) MSSA bacteremia ICD Code: R78.81 - Bacteremia Plan: Continue IV antibiotics as per ID. Last blood cultures on 10/18 negative 5. 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 Dr Bradley decilned performing surgery on patient. (4) IV drug abuse ICD Code: F19.10 - Other psychoactive substance abuse, uncomplicated Plan: The patient states he has not used drugs in 3 months. Advised and reinforced drug cessation. (5) Pleural effusion, bilateral ICD Code: J90 - Pleural effusion, not elsewhere classified Plan: Likely secondary to fluid overload and acute systolic heart failure. The patient has been dialyzed (6) Septic embolism ICD Code: I26.90 - Septic pulmonary embolism without acute cor pulmonale Status: Acute Plan: Secondary to tricuspid valve endocarditis. On 4 L nasal cannula. Likely chronic respiratory failure. (7) Hepatitis C ICD Code: B19.20 - Unspecified viral hepatitis C without hepatic coma Plan: Hepatitis C antibody reactive. Hepatitis C viral load 18176. Hepatitis C genotype 1A. Hepatitic ultrasound revealed hepatosplenomegaly. We will refer to GI as an outpatient for treatment. (8) Hepatosplenomegaly ICD Code: R16.2 - Hepatomegaly with splenomegaly, not elsewhere classified Plan: As seen on CT of the abdomen and pelvis with moderate amount of ascites and diffuse anasarca. (9) Sacral decubitus ulcer, stage IV ICD Code: L89.154 - Pressure ulcer of sacral region, stage 4 Status: Acute Plan: Consult wound care. (10) Anasarca ICD Code: R60.1 - Generalized edema Plan: As evidenced by bilateral pleural effusions, ascites and anasarca described on CT abdomen and pelvis. Patient refused abdominal paracentesis. Patient being dialyzed. (11) Acute systolic heart failure ICD Code: I50.21 - Acute systolic (congestive) heart failure Plan: Echo with EF of 35-40%. Treat fluid overload with dialysis. (12) Moderate protein-calorie malnutrition ICD Code: E44.0 - Moderate protein-calorie malnutrition Status: Acute Plan: Low albumin. dietary consulted ---> recommended liberalizing diet since protein restriction not needed. This was ordered. Nepro BID ordered by me. (13) Hyponatremia ICD Code: E87.1 - Hypo-osmolality and hyponatremia Status: Acute Plan: Likely due to fluid overload. Will place on fluid restriction. (14) ZEUS (acute kidney injury) ICD Code: N17.9 - Acute kidney failure, unspecified Plan: Most likely due to ATN from sepsis and low blood pressure. HD started on 10/08. Continue dialysis as per nephrology. Dialysis currently on Friday/ and Friday schedule. I will nephrotoxins, continue to monitor BUN and creatinine. (15) Anemia ICD Code: D64.9 - Anemia, unspecified Plan: On ferrous sulfate and Epogen as per nephrology. Anemia likely secondary to chronic kidney disease. (16) Debility ICD Code: R53.81 - Other malaise Status: Acute Plan: Continue PT and OT. Patient will need to go to rehab upon discharge. (17) Transaminitis ICD Code: R74.0 - Nonspecific elevation of levels of transaminase and lactic acid dehydrogenase [LDH] Status: Resolved Plan: Now resolved. Continue to monitor liver function tests. Transaminitis likely secondary to sepsis and hepatitis C. Assessment and Plan DVT prophylaxis: SCDs, heparin subcutaneously. Discharge Planning Continue to monitor the medical floor. Pending clinical improvement. Problem Qualifiers (1) Endocarditis: (2) Hepatitis C: (3) Anemia: Nathan Krishnan MD Nov 08, 2017 14:03
[2017-11-08 17:58] LABS: AUTOMATED NEUTROPHIL # 10.6 TH/MM3 (1.8-7.7); BASOPHIL # 0.2 TH/MM3 (0-0.2); BASOPHIL % 1.3 % (0.0-2.0); EOSINOPHIL # 0.2 TH/MM3 (0-0.4); EOSINOPHIL % 1.5 % (0.0-4.0); HEMOGLOBIN 8.9 GM/DL (13.0-17.0); LYMPH % 6.9 % (9.0-44.0); LYMPHOCYTE # 0.9 TH/MM3 (1.0-4.8); MEAN CELL VOLUME 87.1 FL (80.0-100.0); MEAN CORPUSCULAR HEMOGLOBIN 28.6 PG (27.0-34.0); MEAN CORPUSCULAR HGB CONC 32.8 % (32.0-36.0); MEAN PLATELET VOLUME 8.1 FL (7.0-11.0); MONO % 7.5 % (0.0-8.0); NEUT % 82.8 % (16.0-70.0); PLATELET COUNT 141 TH/MM3 (150-450); RED CELL DISTRIBUTION WIDTH 19.7 % (11.6-17.2); WHITE BLOOD COUNT 12.8 TH/MM3 (4.0-11.0)
[2017-11-08 18:23] LABS: ALBUMIN 2.9 GM/DL (3.4-5.0); ALKALINE PHOSPHATASE 60 U/L (45-117); ALT (GPT) 7 U/L (12-78); AST (GOT) 42 U/L (15-37); BICARBONATE 26.4 MEQ/L (21.0-32.0); BLOOD UREA NITROGEN 23 MG/DL (7-18); CALCIUM 8.3 MG/DL (8.5-10.1); CHLORIDE 95 MEQ/L (98-107); CREATININE 4.37 MG/DL (0.60-1.30); GLOMERULAR FILTRATION RATE 16 ML/MIN (>89); GLUCOSE,RANDOM 91 MG/DL (74-106); SODIUM (NA) 133 MEQ/L (136-145); TOTAL BILIRUBIN ADULT 1.2 MG/DL (0.2-1.0); TOTAL PROTEIN 8.2 GM/DL (6.4-8.2)
[2017-11-08] MEDS ORDERED: NALOXONE HCL 0.4 MG/ML AMP IV PUSH PRN (20:15)
[2017-11-09] VITALS (11 sets, daily range): BP systolic 87–109; BP diastolic 52–92; PULSE 87–105; RESP 17–20; TEMP 97.4–98.9; O2SAT 92–100
[2017-11-09] MEDS: RESP: ALBUTEROL 2.5 MG/3 ML NEB (PRN) NEB ×3 (03:11→22:36)
[2017-11-09] MEDS: CHLORHEXIDINE GLUCONATE 2 % 1 PACK (2 CLOTHS) TOP SCH (03:39)
[2017-11-09] MEDS: METOPROLOL TARTRATE 25 MG TAB PO SCH ×3 (06:00→22:00)
[2017-11-09] MEDS: ACETAMINOPHEN 500 MG CPLT PO SCH ×4 (06:05→23:56)
[2017-11-09] MEDS: CHLORHEXIDINE 0.12% (ORAL KIT) 15 ML CUP MT SCH ×2 (08:00→20:00)
[2017-11-09] MEDS: SODIUM CHLORIDE 0.9% FLUSH 10 ML FLUSH IV FLUSH SCH ×2 (09:14→22:27)
[2017-11-09] MEDS: FLUTICASONE PROPIONATE 44 MCG/ACT 10.6 GM INHALER INH SCH ×2 (09:14→22:20)
[2017-11-09] MEDS: COLLAGENASE OINT 30 GM TUBE TOPICAL SCH (09:14)
[2017-11-09] MEDS: PANTOPRAZOLE SOD 40 MG DELAYED RELEASE TAB PO SCH ×2 (09:15→22:27)
[2017-11-09] MEDS: HEPARIN SODIUM - SQ 10,000 UNITS/ML VIAL SQ SCH ×2 (09:15→22:27)
[2017-11-09] MEDS: DULoxetine HCl DR 60 MG CAP PO SCH (09:15)
[2017-11-09] MEDS: SODIUM CHLORIDE 1 GRAM TAB PO SCH (09:15)
[2017-11-09] MEDS: CALCIUM ACETATE 667 MG CAP PO SCH ×3 (09:15→17:25)
[2017-11-09] MEDS: LACTOBACILLUS ACIDOPHILUS TAB PO SCH ×3 (09:15→17:25)
[2017-11-09] MEDS: DOCUSATE SODIUM 50 MG/SENNA 8.6 MG TAB PO SCH ×2 (09:15→21:00)
[2017-11-09 10:48] LABS: AUTOMATED NEUTROPHIL # 9.6 TH/MM3 (1.8-7.7); BASOPHIL # 0.1 TH/MM3 (0-0.2); BASOPHIL % 1.2 % (0.0-2.0); EOSINOPHIL # 0.2 TH/MM3 (0-0.4); EOSINOPHIL % 2.1 % (0.0-4.0); HEMATOCRIT 23.3 % (39.0-51.0); HEMOGLOBIN 7.7 GM/DL (13.0-17.0); LYMPH % 7.8 % (9.0-44.0); LYMPHOCYTE # 0.9 TH/MM3 (1.0-4.8); MEAN CELL VOLUME 85.5 FL (80.0-100.0); MEAN CORPUSCULAR HEMOGLOBIN 28.4 PG (27.0-34.0); MEAN CORPUSCULAR HGB CONC 33.2 % (32.0-36.0); MEAN PLATELET VOLUME 8.3 FL (7.0-11.0); MONO % 7.6 % (0.0-8.0); MONOCYTE # 0.9 TH/MM3 (0-0.9); NEUT % 81.3 % (16.0-70.0); PLATELET COUNT 128 TH/MM3 (150-450); RED BLOOD COUNT 2.73 MIL/MM3 (4.50-5.90); WHITE BLOOD COUNT 11.8 TH/MM3 (4.0-11.0)
[2017-11-09 10:57] LABS: ALBUMIN 2.7 GM/DL (3.4-5.0); AST (GOT) 26 U/L (15-37); BLOOD UREA NITROGEN 25 MG/DL (7-18); CALCIUM 8.5 MG/DL (8.5-10.1); CHLORIDE 93 MEQ/L (98-107); CREATININE 4.87 MG/DL (0.60-1.30); GLOMERULAR FILTRATION RATE 15 ML/MIN (>89); GLUCOSE,RANDOM 77 MG/DL (74-106); MAGNESIUM 1.7 MG/DL (1.5-2.5); SODIUM (NA) 130 MEQ/L (136-145)
[2017-11-09 10:59] LABS: ALT (GPT) 6 U/L (12-78)
[2017-11-09 11:01] LABS: ALKALINE PHOSPHATASE 63 U/L (45-117); TOTAL BILIRUBIN ADULT 1.1 MG/DL (0.2-1.0); TOTAL PROTEIN 7.4 GM/DL (6.4-8.2)
[2017-11-09] MEDS: FERROUS SULFATE 325 MG (65 MG ELEMENTAL IRON) TAB PO SCH ×2 (11:43→17:25)
[2017-11-09] MEDS: GABAPENTIN 100 MG CAP PO SCH (11:43)
--- NOTE | 2017-11-09 13:12 | HHI.PR ---
Subjective Remarks c/o abdominal discomfort sob on exertion Patient agreeable to paracentesis - however requests for it to be done tomorrow. BP low PAtient denies dizziness Objective Vitals Vital Signs Date Time Temp Pulse Resp B/P (MAP) Pulse Ox O2 Delivery O2 Flow Rate FiO2 11/09/17 08:00 98.1 87 20 87/52 (64) 98 11/09/17 08:00 88 11/09/17 08:00 Nasal Cannula 4.00 11/09/17 04:00 97.5 101 18 92/60 (71) 100 11/09/17 03:56 99 11/09/17 03:11 92 Nasal Cannula 4.00 11/09/17 00:00 98.9 97 18 98/62 (74) 98 11/08/17 23:52 90 11/08/17 22:15 Nasal Cannula 4.00 11/08/17 20:19 90/60 (70) 11/08/17 20:00 107 11/08/17 20:00 98.7 110 18 96 11/08/17 16:32 118 11/08/17 16:00 97.6 110 20 90/53 (65) 93 I/O 11/08/17 11/08/17 11/08/17 11/09/17 11/09/17 11/09/17 06:59 14:59 22:59 06:59 14:59 22:59 Intake Total 120 ml 720 ml 100 ml Output Total 2000 ml Balance 120 ml -1280 ml 100 ml Intake Oral 120 ml 720 ml IV Total 100 ml Hemodialysis 2000 ml # Voids 1 # Bowel Movements 1 Result Diagram: 11/09/17 0745 11/09/17 0745 Objective Remarks AAOx3 mild distress due to pain S1S2 RRR, soft 2/6 systolic murmur Abdomen soft, nt, nd +1 edema in lower extremities BL Procedures CT-guided chest tube placement on left chest. Date 10/06/17. Medications and IVs Current Medications Medications (Trade) Dose Ordered Sig/Willem Route Start Time Stop Time Status Last Admin (NS Flush) 2 ml UNSCH PRN IV FLUSH 10/03/17 21:15 10/15/17 20:58 (NS Flush) 2 ml BID IV FLUSH 10/04/17 09:00 11/09/17 09:14 (Zofran Inj) 4 mg Q6H PRN IV PUSH 10/03/17 21:15 11/05/17 12:44 (Restoril) 15 mg HS PRN PO 10/03/17 21:15 10/27/17 20:29 Miscellaneous Information 1 Q361D XX 10/03/17 21:15 (Chlorhexidine 2% Cloth) Taper DAILY@04 TOP 10/04/17 04:00 09/30/18 03:59 10/26/17 21:40 (Chlorhexidine 2% Cloth) 3 pack UNSCH PRN TOP 10/03/17 21:15 (Renita-Colace) 1 tab BID PO 10/04/17 09:00 11/09/17 09:15 (Senokot) 17.2 mg Q12H PRN PO 10/03/17 21:15 (Dulcolax Supp) 10 mg DAILY PRN RECTAL 10/03/17 21:15 10/11/17 17:08 (Lactulose Liq) 30 ml DAILY PRN PO 10/03/17 21:15 10/11/17 17:08 (Flovent Hfa 44 Mcg Inh) 2 puff BID INH 10/04/17 09:00 11/09/17 09:14 (Peridex 0.12% Liq) 15 ml BID@08,20 MT 10/04/17 20:00 11/07/17 07:37 Sodium Chloride 1,000 ml @ 0 mls/hr Q0M PRN OTHER 10/08/17 10:33 10/25/17 10:39 (Heparin Inj) 8,000 units UNSCH PRN IV FLUSH 10/08/17 10:45 Sodium Chloride 1,000 ml @ 200 mls/hr Q5H PRN IV 10/08/17 11:15 11/08/17 09:57 Sodium Chloride 1,000 ml @ 0 mls/hr Q0M PRN OTHER 10/08/17 11:15 (Mannitol Inj) 12.5 gm UNSCH PRN IV 10/08/17 11:15 11/06/17 14:30 Albumin Human 100 ml @ 60 mls/hr UNSCH PRN IV 10/08/17 11:30 11/06/17 14:30 (NS Flush) 5 ml UNSCH PRN IV FLUSH 10/08/17 11:15 10/25/17 10:40 (Heparin Inj) UNSCH PRN .XX 10/08/17 11:15 11/08/17 09:57 (Gentamicin Inj) 20 mg UNSCH PRN OTHER 10/08/17 11:15 11/08/17 09:58 (Zofran Inj) 4 mg UNSCH PRN IV PUSH 10/08/17 11:15 (Nitrostat Sl) 0.4 mg UNSCH PRN SL 10/08/17 11:30 (Catapres) 0.1 mg UNSCH PRN PO 10/08/17 11:30 (Epogen Inj) 10,000 units UNSCH PRN IV PUSH 10/08/17 11:30 11/08/17 09:58 (Gelfoam 12 Mm/7 Mm Top) 1 foam UNSCH PRN TOP 10/08/17 11:30 (Lactinex) 1 tab TID PO 10/17/17 13:00 11/09/17 11:43 (Duragesic 100 Mcg Patch.72 Hr) 1 patch Q3D T-DERMAL 10/18/17 12:00 11/08/17 13:18 Miscellaneous Information 1 Q3D T-DERMAL 10/21/17 12:00 11/08/17 13:18 (Santyl Oint) 1 applic DAILY TOPICAL 10/20/17 16:00 11/09/17 09:14 (Albuterol Neb) 2.5 mg Q2HR NEB PRN NEB 10/21/17 13:30 11/09/17 03:11 (Protonix) 40 mg Q12HR PO 10/21/17 21:00 11/09/17 09:15 (Heparin Inj) 5,000 units Q12HR SQ 10/21/17 21:00 11/09/17 09:15 (Phoslo) 667 mg TID PO 10/23/17 13:00 11/09/17 11:43 Cefazolin Sodium 1000 mg/Sodium Chloride 100 ml @ 200 mls/hr Q12H IV 10/24/17 03:00 11/09/17 02:00 (Haldol Inj) 5 mg Q4H PRN IV PUSH 10/23/17 23:30 10/26/17 23:39 (Lopressor) 25 mg Q8HR PO 10/25/17 22:00 11/03/17 14:24 (Sodium Chloride) 1 gm DAILY PO 10/26/17 09:00 11/09/17 09:15 (Ferrous Sulfate) 325 mg BID@,17 PO 10/27/17 12:00 11/09/17 11:43 (Tylenol) 500 mg Q6HR PO 10/31/17 00:00 11/09/17 11:43 (Roxicodone) 5 mg Q6H PRN PO 10/30/17 20:00 11/08/17 14:45 (Zanaflex) 2 mg Q8HR PO 10/30/17 22:00 11/09/17 06:04 (Atarax) 50 mg Q8H PRN PO 10/31/17 17:15 11/03/17 02:58 (Cymbalta Dr) 60 mg DAILY PO 11/03/17 12:00 11/09/17 09:15 (Neurontin) 300 mg Q24H PO 11/06/17 13:00 11/09/17 11:43 (Narcan Inj) 0.4 mg Q2M PRN IV PUSH 11/08/17 20:15 11/08/17 20:16 A/P Problem List: (1) Endocarditis ICD Code: I38 - Endocarditis, valve unspecified Status: Acute Plan: 2D echocardiogram as stated above showed a large tricuspid valve vegetation. Repeat bedside echocardiogram on 10/18 showed a similar size vegetation. Cardiology and CT surgery has followed. D/W Dr. Charles declined surgery due to active IV drug use, multiple medical complications. Discussed with [facility] who agreed with plan of our cardiothoracic surgeon. [facility] administration has denied the patient as well per CM. ID consulted. Continue IV antibiotics as per ID. Currently on IV cefazolin. (2) MSSA bacteremia ICD Code: R78.81 - Bacteremia Plan: Continue IV antibiotics as per ID. Last blood cultures on 10/18 negative 5. 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 Dr Bradley decilned performing surgery on patient. (4) IV drug abuse ICD Code: F19.10 - Other psychoactive substance abuse, uncomplicated Plan: The patient states he has not used drugs in 3 months. Advised and reinforced drug cessation. (5) Pleural effusion, bilateral ICD Code: J90 - Pleural effusion, not elsewhere classified Plan: Likely secondary to fluid overload and acute systolic heart failure. The patient has been dialyzed. (6) Septic embolism ICD Code: I26.90 - Septic pulmonary embolism without acute cor pulmonale Status: Acute Plan: Secondary to tricuspid valve endocarditis. On 4 L nasal cannula. Likely chronic respiratory failure. (7) Hepatitis C ICD Code: B19.20 - Unspecified viral hepatitis C without hepatic coma Plan: Hepatitis C antibody reactive. Hepatitis C viral load 79538. Hepatitis C genotype 1A. Hepatitic ultrasound revealed hepatosplenomegaly. We will refer to GI as an outpatient for treatment. (8) Hepatosplenomegaly ICD Code: R16.2 - Hepatomegaly with splenomegaly, not elsewhere classified Plan: As seen on CT of the abdomen and pelvis with moderate amount of ascites and diffuse anasarca. (9) Sacral decubitus ulcer, stage IV ICD Code: L89.154 - Pressure ulcer of sacral region, stage 4 Status: Acute Plan: Consult wound care. (10) Anasarca ICD Code: R60.1 - Generalized edema Plan: As evidenced by bilateral pleural effusions, ascites and anasarca described on CT abdomen and pelvis. Patient refused abdominal paracentesis. Patient being dialyzed. 11/09 Patient now agreeable to have abdominal paracentesis, however requests for it to be done tomorrow. Will order for am. (11) Acute systolic heart failure ICD Code: I50.21 - Acute systolic (congestive) heart failure Plan: Echo with EF of 35-40%. Treat fluid overload with dialysis. (12) Moderate protein-calorie malnutrition ICD Code: E44.0 - Moderate protein-calorie malnutrition Status: Acute Plan: Low albumin. dietary consulted ---> recommended liberalizing diet since protein restriction not needed. This was ordered. Nepro BID ordered by ca. (13) Hyponatremia ICD Code: E87.1 - Hypo-osmolality and hyponatremia Status: Acute Plan: On fluid restriction - continue. (14) ZEUS (acute kidney injury) ICD Code: N17.9 - Acute kidney failure, unspecified Plan: Most likely due to ATN from sepsis and low blood pressure. HD started on 10/08. Continue dialysis as per nephrology. Dialysis currently on Friday/ and Friday schedule. Avoid nephrotoxins, continue to monitor BUN and creatinine. 11/09 hemoglobin dropped from 8.9-7.7. No obvious bleeding. Continue to monitor hemoglobin and hematocrit. Transfuse as needed for hemoglobin less than 7 or symptomatic anemia. (15) Anemia ICD Code: D64.9 - Anemia, unspecified Plan: On ferrous sulfate and Epogen as per nephrology. Anemia likely secondary to chronic kidney disease. (16) Debility ICD Code: R53.81 - Other malaise Status: Acute Plan: Continue PT and OT. Patient will need to go to rehab upon discharge. (17) Transaminitis ICD Code: R74.0 - Nonspecific elevation of levels of transaminase and lactic acid dehydrogenase [LDH] Status: Resolved Plan: Now resolved. Continue to monitor liver function tests. Transaminitis likely secondary to sepsis and hepatitis C. 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 Patient also has history of chronic opiate dependence. Dr. Barry saw the patient in consultation for pain management on October 30, 2017. He recommended fentanyl patch 100 mcg/h every 3 days. Scheduled Tylenol 500 mg p.o. every 6 hours for adjuvant pain therapy, gabapentin 200 mg p.o. every 12 hours. Given renal dysfunction recommended titration to be a slowly made from 100-200 mg per day every 3-5 days to a maximum of 1800- 3600 mg per day. Recommended tizanidine 2 mg p.o. every 8 hours. Recommended oxycodone 5 mg p.o. every 6 hours as needed pain for breakthrough pain. (19) MARTÍN positive ICD Code: R76.8 - Other specified abnormal immunological findings in serum Status: Acute Plan: The patient also has a positive MARTÍN with a titer of 1: 40 with a diffuse pattern. This is a low pattern and the patient does not have any other symptoms consistent with rheumatic disease. Will not pursue any further testing. The patient will need to follow-up as an outpatient by his primary care physician. (20) Hypotension ICD Code: I95.9 - Hypotension, unspecified Plan: Unclear etiology of hypotension. However the patient is on hemodialysis and is hypoalbuminemic, also patient is on several medications to control pain including fentanyl patch, Roxicodone, gabapentin. All of these factors could be contributing to the patient's hypotension. Upon review of records the patient has been hypotensive for some time now. Patient's hypotension started on 10/31/17 and blood pressure occasionally goes up , however it is most consistently in the high 80s to low 90s systolic. Start midodrine for blood pressure support. Assessment and Plan DVT prophylaxis: SCDs, heparin subcutaneously. Discharge Planning Continue to monitor the medical floor. Pending clinical improvement. Problem Qualifiers (1) Endocarditis: (2) Hepatitis C: (3) Anemia: (4) Hypotension: Qualified Codes: I95.9 - Hypotension, unspecified Nathan Krishnan MD Nov 09, 2017 13:12
[2017-11-09] MEDS: MIDODRINE 5 MG TAB PO SCH (17:25)
[2017-11-10] VITALS (9 sets, daily range): BP systolic 95–98; BP diastolic 55–74; PULSE 97–109; RESP 17–18; TEMP 97.2–98.2; O2SAT 95–98
[2017-11-10] MEDS: CHLORHEXIDINE GLUCONATE 2 % 1 PACK (2 CLOTHS) TOP SCH (03:16)
[2017-11-10] MEDS: RESP: ALBUTEROL 2.5 MG/3 ML NEB (PRN) NEB ×3 (04:38→15:52)
[2017-11-10] MEDS: METOPROLOL TARTRATE 25 MG TAB PO SCH ×3 (05:29→22:25)
[2017-11-10] MEDS: MIDODRINE 5 MG TAB PO SCH ×3 (06:09→16:35)
[2017-11-10] MEDS: ACETAMINOPHEN 500 MG CPLT PO SCH ×3 (06:09→18:18)
[2017-11-10] MEDS: HEPARIN SODIUM - SQ 10,000 UNITS/ML VIAL SQ SCH ×3 (09:00→21:44)
[2017-11-10] MEDS: DOCUSATE SODIUM 50 MG/SENNA 8.6 MG TAB PO SCH ×2 (09:00→21:44)
[2017-11-10] MEDS: SODIUM CHLORIDE 1 GRAM TAB PO SCH (09:57)
[2017-11-10] MEDS: DULoxetine HCl DR 60 MG CAP PO SCH (09:57)
[2017-11-10] MEDS: CALCIUM ACETATE 667 MG CAP PO SCH ×3 (09:57→18:18)
[2017-11-10] MEDS: PANTOPRAZOLE SOD 40 MG DELAYED RELEASE TAB PO SCH ×2 (09:57→21:44)
[2017-11-10] MEDS: SODIUM CHLORIDE 0.9% FLUSH 10 ML FLUSH IV FLUSH SCH ×2 (09:58→21:00)
[2017-11-10] MEDS: FLUTICASONE PROPIONATE 44 MCG/ACT 10.6 GM INHALER INH SCH ×2 (09:58→21:47)
[2017-11-10] MEDS: LACTOBACILLUS ACIDOPHILUS TAB PO SCH ×3 (10:10→18:18)
[2017-11-10] MEDS: CHLORHEXIDINE 0.12% (ORAL KIT) 15 ML CUP MT SCH ×2 (10:13→20:00)
[2017-11-10] MEDS: COLLAGENASE OINT 30 GM TUBE TOPICAL SCH (10:22)
[2017-11-10 10:30] LABS: AUTOMATED NEUTROPHIL # 8.3 TH/MM3 (1.8-7.7); BASOPHIL # 0.1 TH/MM3 (0-0.2); BASOPHIL % 1.2 % (0.0-2.0); EOSINOPHIL # 0.3 TH/MM3 (0-0.4); EOSINOPHIL % 2.9 % (0.0-4.0); HEMATOCRIT 23.5 % (39.0-51.0); HEMOGLOBIN 8.1 GM/DL (13.0-17.0); LYMPH % 9.3 % (9.0-44.0); MEAN CELL VOLUME 85.4 FL (80.0-100.0); MEAN CORPUSCULAR HEMOGLOBIN 29.2 PG (27.0-34.0); MEAN CORPUSCULAR HGB CONC 34.2 % (32.0-36.0); MEAN PLATELET VOLUME 7.7 FL (7.0-11.0); MONO % 6.7 % (0.0-8.0); MONOCYTE # 0.7 TH/MM3 (0-0.9); NEUT % 79.9 % (16.0-70.0); PLATELET COUNT 115 TH/MM3 (150-450); RED BLOOD COUNT 2.76 MIL/MM3 (4.50-5.90); RED CELL DISTRIBUTION WIDTH 19.9 % (11.6-17.2); WHITE BLOOD COUNT 10.4 TH/MM3 (4.0-11.0)
[2017-11-10] MEDS: hydrOXYzine HCL 25 MG TAB PO PRN (10:33)
--- NOTE | 2017-11-10 10:40 | HHI.NPPN ---
Subjective Complaints: Shortness of Breath Renal Failure: Acute History of Present Illness Patient is 27-year-old male who reported to ER with body aches, 7 days of diarrhea with development fever. Past medical history of IV drug use. Patient is sedated and ventilated FiO2 at 40 %. Nephrology is consulted for ZEUS and fluid over load status. Patients creatinine is 3.02 and GFR 25ml/min. Patient is UOP at 800cc for last 24 hours. Weight has increased by over 10 kg since admission. IVF's have been stopped and lasix has been given. Patient has endocarditis with large tricuspid valve vegetation, and pulmonic vegetation. Noted to have bacteremia with hypotension with SBP in the 90's. Additional Remarks Patient is alert this morning. Mild SOB reported. (Venus Barrett) Review of Systems Respiratory Lungs: SOB Respiratory Remarks mild (Venus Barrett) Cardiovascular Cardiac Remarks denies CP (Venus Barrett) Psych Psych: Depression, Anxiety (Venus Barrett) Objective Data Data Vital Signs Date Time Temp Pulse Resp B/P (MAP) Pulse Ox O2 Delivery O2 Flow Rate FiO2 11/10/17 08:06 98.2 102 17 95/74 (81) 97 11/10/17 04:17 97.2 105 18 95/61 (72) 95 11/10/17 04:00 101 11/10/17 02:02 19 11/10/17 00:39 97 11/10/17 00:00 97.3 101 18 95/64 (74) 96 11/09/17 22:36 96 Nasal Cannula 4.00 11/09/17 22:25 Nasal Cannula 4.00 11/09/17 20:37 101 11/09/17 20:00 98.0 102 17 98/66 (77) 96 11/09/17 17:57 103 11/09/17 16:00 97.4 104 20 109/56 (73) 97 11/09/17 15:09 Nasal Cannula 4.00 11/09/17 12:00 97.7 105 20 92/92 (92) 93 11/09/17 12:00 101 (Venus Barrett) -: 11/10/17 1010 11/09/17 0745 Tubes & Lines: Vas-Cath (Venus Barrett. TELEHEALTH CASE MANAGER) Physical Exam General Appearance: No Acute Distress, Comfortable (Venus Barrett. TELEHEALTH CASE MANAGER) Eyes Eye Exam: Pupils Equal (Venus Barrett. TELEHEALTH CASE MANAGER) Pulmonary Resp Exam: Decreased Bases, Diminished Breath Sounds (Venus Barrett M. TELEHEALTH CASE MANAGER) Cardiology CV Exam: Tachycardia (Venus Barrett. TELEHEALTH CASE MANAGER) Gastrointestinal/Abdomen GI Exam: Soft, Non-Tender, Bowel Sounds Present, Distended (Venus Barrett. TELEHEALTH CASE MANAGER) Integumentary Skin Exam: Clear, Warm (Venus Barrett. TELEHEALTH CASE MANAGER) Extremeties Extremities Exam: Moderate Edema (Venus Barrett. TELEHEALTH CASE MANAGER) Neurologic Neuro Exam: Awake (Venus Barrett. TELEHEALTH CASE MANAGER) Psychiatric Psych Exam: Appropriate Responses (Venus Barrett. TELEHEALTH CASE MANAGER) Assessment/Plan Assessment Summary: ZEUS/Acute Renal Failure Electrolyte Assessment: Hyponatremia Problem List: (1) ZEUS (acute kidney injury) ICD Codes: N17.9 - Acute kidney failure, unspecified Plan: ZEUS most likely ATN from sepsis and low blood pressure. Other differential will be ATN, Acute interstitial nephritis, and Post infectious GN,unlikely. HD started on 10/08 Plan Dialysis currently / through vas cath Continue Epogen with dialysis Continue phoslo Follow the urine out put and BMP. Continue to watch for renal recovery however thus far no improvement in the renal function. (2) Sepsis ICD Codes: A41.9 - Sepsis, unspecified organism Status: Acute Plan: Antibiotics per ID (3) Endocarditis ICD Codes: I38 - Endocarditis, valve unspecified Status: Acute Plan: antibiotics renal dosing (Venus Barrett. TELEHEALTH CASE MANAGER) Problem List: (1) ZEUS (acute kidney injury) ICD Codes: N17.9 - Acute kidney failure, unspecified Plan: ZEUS most likely ATN from sepsis and low blood pressure. Other differential will be ATN, Acute interstitial nephritis, and Post infectious GN,unlikely. HD started on 10/08 Plan Dialysis currently T/ through vas cath Continue Epogen with dialysis Continue phoslo Follow the urine out put and BMP. Continue to watch for renal recovery however thus far no improvement in the renal function. Patient seen and examined, agree with above. HD will be in AM. (2) Sepsis ICD Codes: A41.9 - Sepsis, unspecified organism Status: Acute Plan: Antibiotics per ID (3) Endocarditis ICD Codes: I38 - Endocarditis, valve unspecified Status: Acute Plan: antibiotics renal dosing (Darek Tapia MD) Problem Qualifiers (1) Sepsis: Qualified Codes: A41.9 - Sepsis, unspecified organism (2) Endocarditis: Venus Barrett Nov 10, 2017 10:40 Darek Tapia MD Nov 10, 2017 19:08
[2017-11-10 10:59] LABS: BICARBONATE 26.9 MEQ/L (21.0-32.0); CALCIUM 8.6 MG/DL (8.5-10.1); CREATININE 5.54 MG/DL (0.60-1.30)
[2017-11-10 12:49] LABS: TOTAL PROTEIN,PERITONEAL FLUID 5.4 GM/DL
--- NOTE | 2017-11-10 12:58 | HHI.IDPN ---
Subjective Subjective Remarks ID COVERAGE is a 27 y/o CM with remote history of IV drug abuse, states he last used heroin 2 months ago, presents for evaluation of body aches, 7 days of diarrhea with development of subjective fever yesterday. Patient denies any nausea or vomiting. He denies any chest pain. This has developed within the last 24 hours. Patient does have a cough with clear sputum. Denies any prior history of endocarditis. Denies any abdominal pain. Does report some left back pain, worse while lying flat. He is well reports generalized weakness. Patient met criteria for sepsis on admission. Flu antigen negative. CXR with bilateral infiltrates. performed a bedside 2D ECHO and verbally reported a large ~4.5 cm vegetation on TV. CXR suspicious for septic emboli. Blood cultures drawn but it appears patient has received augmentin at some point and cultures may possibly be negative. ID is following for evaluation and M'ment of Severe Sepsis and Endocarditis. Notes reviewed Just came back from his paracentesis Temps ok Mild SOB BP ok No rash No diarrhea Antibiotics Ancef Current Medications Medications (Trade) Dose Ordered Sig/Willem Route Start Time Stop Time Status Last Admin (NS Flush) 2 ml UNSCH PRN IV FLUSH 10/03/17 21:15 10/15/17 20:58 (NS Flush) 2 ml BID IV FLUSH 10/04/17 09:00 11/10/17 09:58 (Zofran Inj) 4 mg Q6H PRN IV PUSH 10/03/17 21:15 11/05/17 12:44 (Restoril) 15 mg HS PRN PO 10/03/17 21:15 10/27/17 20:29 Miscellaneous Information 1 Q361D XX 10/03/17 21:15 (Chlorhexidine 2% Cloth) Taper DAILY@04 TOP 10/04/17 04:00 09/30/18 03:59 10/26/17 21:40 (Chlorhexidine 2% Cloth) 3 pack UNSCH PRN TOP 10/03/17 21:15 (Renita-Colace) 1 tab BID PO 10/04/17 09:00 11/09/17 09:15 (Senokot) 17.2 mg Q12H PRN PO 10/03/17 21:15 (Dulcolax Supp) 10 mg DAILY PRN RECTAL 10/03/17:15 10/11/17 17:08 (Lactulose Liq) 30 ml DAILY PRN PO 10/03/17 21:15 10/11/17 17:08 (Flovent Hfa 44 Mcg Inh) 2 puff BID INH 10/04/17 09:00 11/10/17 09:58 (Peridex 0.12% Liq) 15 ml BID@08,20 MT 10/04/17 20:00 11/10/17 10:13 Sodium Chloride 1,000 ml @ 0 mls/hr Q0M PRN OTHER 10/08/17 10:33 10/25/17 10:39 (Heparin Inj) 8,000 units UNSCH PRN IV FLUSH 10/08/17 10:45 Sodium Chloride 1,000 ml @ 200 mls/hr Q5H PRN IV 10/08/17 11:15 11/08/17 09:57 Sodium Chloride 1,000 ml @ 0 mls/hr Q0M PRN OTHER 10/08/17 11:15 (Mannitol Inj) 12.5 gm UNSCH PRN IV 10/08/17 11:15 11/06/17 14:30 Albumin Human 100 ml @ 60 mls/hr UNSCH PRN IV 10/08/17 11:30 11/06/17 14:30 (NS Flush) 5 ml UNSCH PRN IV FLUSH 10/08/17 11:15 10/25/17 10:40 (Heparin Inj) UNSCH PRN .XX 10/08/17 11:15 11/08/17 09:57 (Gentamicin Inj) 20 mg UNSCH PRN OTHER 10/08/17 11:15 11/08/17 09:58 (Zofran Inj) 4 mg UNSCH PRN IV PUSH 10/08/17 11:15 (Nitrostat Sl) 0.4 mg UNSCH PRN SL 10/08/17 11:30 (Catapres) 0.1 mg UNSCH PRN PO 10/08/17 11:30 (Epogen Inj) 10,000 units UNSCH PRN IV PUSH 10/08/17 11:30 11/08/17 09:58 (Gelfoam 12 Mm/7 Mm Top) 1 foam UNSCH PRN TOP 10/08/17 11:30 (Lactinex) 1 tab TID PO 10/17/17 13:00 11/10/17 10:10 (Duragesic 100 Mcg Patch.72 Hr) 1 patch Q3D T-DERMAL 10/18/17 12:00 11/08/17 13:18 Miscellaneous Information 1 Q3D T-DERMAL 10/21/17 12:00 11/08/17 13:18 (Santyl Oint) 1 applic DAILY TOPICAL 10/20/17 16:00 11/10/17 10:22 (Albuterol Neb) 2.5 mg Q2HR NEB PRN NEB 10/21/17 13:30 11/10/17 10:35 (Protonix) 40 mg Q12HR PO 10/21/17 21:00 11/10/17 09:57 (Heparin Inj) 5,000 units Q12HR SQ 10/21/17 21:00 11/09/17 22:27 (Phoslo) 667 mg TID PO 10/23/17 13:00 11/10/17 09:57 Cefazolin Sodium 1000 mg/Sodium Chloride 100 ml @ 200 mls/hr Q12H IV 10/24/17 03:00 11/10/17 02:02 (Haldol Inj) 5 mg Q4H PRN IV PUSH 10/23/17 23:30 10/26/17 23:39 (Lopressor) 25 mg Q8HR PO 10/25/17 22:00 11/03/17 14:24 (Sodium Chloride) 1 gm DAILY PO 10/26/17 09:00 11/10/17 09:57 (Ferrous Sulfate) 325 mg BID@12,17 PO 10/27/17 12:00 11/09/17 17:25 (Tylenol) 500 mg Q6HR PO 10/31/17 00:00 11/10/17 06:09 (Roxicodone) 5 mg Q6H PRN PO 10/30/17 20:00 11/10/17 10:10 (Zanaflex) 2 mg Q8HR PO 10/30/17 22:00 11/10/17 06:09 (Atarax) 50 mg Q8H PRN PO 10/31/17 17:15 11/10/17 10:33 (Cymbalta Dr) 60 mg DAILY PO 11/03/17 12:00 11/10/17 09:57 (Neurontin) 300 mg Q24H PO 11/06/17 13:00 11/09/17 11:43 (Narcan Inj) 0.4 mg Q2M PRN IV PUSH 11/08/17 20:15 11/08/17 20:16 (Proamatine) 5 mg TID@07,12,17 PO 11/09/17 17:00 11/10/17 06:09 Albumin Human 0 ml @ 60 mls/hr ONCE ONCE IV 11/10/17 13:00 11/10/17 13:01 UNV Lines Line sites with no e.o infection Past Medical History Asthma HCV Past Surgical History No surgical history per records. Allergies: Coded Allergies: erythromycin base (Verified Allergy, Severe, Nausea/Vomiting, 10/03/17) raspberry (Unverified Allergy, Mild, 10/03/17) Objective . Vital Signs Date Time Temp Pulse Resp B/P (MAP) Pulse Ox O2 Delivery O2 Flow Rate FiO2 11/10/17 08:06 98.2 102 17 95/74 (81) 97 11/10/17 08:00 Nasal Cannula 4.00 30 11/10/17 04:17 97.2 105 18 95/61 (72) 95 11/10/17 04:00 101 11/10/17 02:02 19 11/10/17 00:39 97 11/10/17 00:00 97.3 101 18 95/64 (74) 96 11/09/17 22:36 96 Nasal Cannula 4.00 11/09/17 22:25 Nasal Cannula 4.00 11/09/17 20:37 101 11/09/17 20:00 98.0 102 17 98/66 (77) 96 11/09/17 17:57 103 11/09/17 16:00 97.4 104 20 109/56 (73) 97 11/09/17 15:09 Nasal Cannula 4.00 . Laboratory Tests Test 11/08/17 17:00 11/09/17 07:45 11/10/17 10:10 White Blood Count 12.8 TH/MM3 11.8 TH/MM3 10.4 TH/MM3 Red Blood Count 3.10 MIL/MM3 2.73 MIL/MM3 2.76 MIL/MM3 Hemoglobin 8.9 GM/DL 7.7 GM/DL 8.1 GM/DL Hematocrit 27.0 % 23.3 % 23.5 % Mean Corpuscular Volume 87.1 FL 85.5 FL 85.4 FL Mean Corpuscular Hemoglobin 28.6 PG 28.4 PG 29.2 PG Mean Corpuscular Hemoglobin Concent 32.8 % 33.2 % 34.2 % Red Cell Distribution Width 19.7 % 20.0 % 19.9 % Platelet Count 141 TH/MM3 128 TH/MM3 115 TH/MM3 Mean Platelet Volume 8.1 FL 8.3 FL 7.7 FL Neutrophils (%) (Auto) 82.8 % 81.3 % 79.9 % Lymphocytes (%) (Auto) 6.9 % 7.8 % 9.3 % Monocytes (%) (Auto) 7.5 % 7.6 % 6.7 % Eosinophils (%) (Auto) 1.5 % 2.1 % 2.9 % Basophils (%) (Auto) 1.3 % 1.2 % 1.2 % Neutrophils # (Auto) 10.6 TH/MM3 9.6 TH/MM3 8.3 TH/MM3 Lymphocytes # (Auto) 0.9 TH/MM3 0.9 TH/MM3 1.0 TH/MM3 Monocytes # (Auto) 1.0 TH/MM3 0.9 TH/MM3 0.7 TH/MM3 Eosinophils # (Auto) 0.2 TH/MM3 0.2 TH/MM3 0.3 TH/MM3 Basophils # (Auto) 0.2 TH/MM3 0.1 TH/MM3 0.1 TH/MM3 CBC Comment DIFF FINAL DIFF FINAL DIFF FINAL Differential Comment Laboratory Tests Test 11/08/17 17:00 11/09/17 07:45 11/10/17 10:00 Blood Urea Nitrogen 23 MG/DL 25 MG/DL 27 MG/DL Creatinine 4.37 MG/DL 4.87 MG/DL 5.54 MG/DL Random Glucose 91 MG/DL 77 MG/DL 88 MG/DL Total Protein 8.2 GM/DL 7.4 GM/DL Albumin 2.9 GM/DL 2.7 GM/DL Calcium Level 8.3 MG/DL 8.5 MG/DL 8.6 MG/DL Alkaline Phosphatase 60 U/L 63 U/L Aspartate Amino Transf (AST/SGOT) 42 U/L 26 U/L Alanine Aminotransferase (ALT/SGPT) 7 U/L 6 U/L Total Bilirubin 1.2 MG/DL 1.1 MG/DL Sodium Level 133 MEQ/L 130 MEQ/L 130 MEQ/L Potassium Level 3.6 MEQ/L 3.4 MEQ/L 3.5 MEQ/L Chloride Level 95 MEQ/L 93 MEQ/L 92 MEQ/L Carbon Dioxide Level 26.4 MEQ/L 24.0 MEQ/L 26.9 MEQ/L Anion Gap 12 MEQ/L 13 MEQ/L 11 MEQ/L Estimat Glomerular Filtration Rate 16 ML/MIN 15 ML/MIN 13 ML/MIN Phosphorus Level 3.0 MG/DL Magnesium Level 1.7 MG/DL Microbiology Date/Time Source Procedure Growth Status 11/10/17 11:45 Fluid Peritoneal Fluid Gram Stain Pending Received 11/10/17 11:45 Fluid Peritoneal Fluid Body Fluid Culture Pending Received Imaging Chest X-Ray 10/30/17 0000 Signed Impressions: Service Date/Time: October 17:04 - CONCLUSION: Increasing bilateral scattered pulmonary infiltrates compared to the prior study. Victorino Vang MD Liver Ultrasound 10/24/17 0000 Signed Impressions: Service Date/Time: Tuesday, October 24, 2017 16:43 - CONCLUSION: Hepatosplenomegaly with ascites. Echogenic kidney Madi Mccartney MD Abdomen/Pelvis CT 10/24/17 0000 Signed Impressions: Service Date/Time: Tuesday, October 24, 2017 21:37 - CONCLUSION: 1. Hepatosplenomegaly. 2. Moderate amount of ascites. 3. Diffuse anasarca. 4. Bibasilar pleural effusions and scattered infiltrates. Khoi Padilla MD Tunnelled Chest Tube Removal 10/20/17 0000 Signed Impressions: Service Date/Time: Friday, October 20, 2017 00:00 - CONCLUSION: Uncomplicated chest tube removal. Madi Mccartney MD Chest CT 10/14/17 0000 Signed Impressions: Service Date/Time: Saturday, October 14, 2017 00:26 - CONCLUSION: 1. Bilateral scattered pulmonary nodules are again noted. Several of the right nodules are now cavitary and likely represent septic emboli given the history of IV drug abuse. 2. Interval placement of bilateral chest tubes with small pleural effusions noted. 3. Dense consolidation remains in the posterior lower lobes. Jorge Jang MD Upper Extremity Ultrasound 10/13/17 0000 Signed Impressions: Service Date/Time: Friday, October 13, 2017 11:25 - CONCLUSION: Normal examination. Christian Kaur MD Abdomen X-Ray 10/10/17 0000 Signed Impressions: Service Date/Time: Tuesday, October 10, 2017 16:46 - CONCLUSION: Negative for free air or obstruction. Rahul Yarbrough MD FACR Chest Tube Insertion 10/06/17 0000 Signed Impressions: Service Date/Time: Friday, October 06, 2017 15:37 - CONCLUSION: Uncomplicated chest tube placement as above. Emerson Hui MD Physical Exam GENERAL: Awakens easily, and following commands looks comfortable at rest SKIN: No generalized rash. Cool and dry. Multiple tattoos. HEAD: Atraumatic. Normocephalic. No temporal or scalp tenderness. EYES: Pupils equal round and reactive. Extraocular motions intact. No petechia, no hemorrhage ENT: Moist oral mucosa, no nasal drainage NECK: Trachea midline. Supple, nontender, no meningeal signs. CARDIOVASCULAR: Has systolic murmur RESPIRATORY: Decreased air entry bilaterally bases. GASTROINTESTINAL: Abdomen soft, not tender, (+) BS, distended. MUSCULOSKELETAL: Extremities without clubbing, cyanosis. (+) bilateral pedal edema. No embolic lesion seen. NEUROLOGICAL: Awake, follows commands Psych cooperative IV line sites with no e.o infection. 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 MRNguyễn Ascites: likely from 3rd spacing. Bilateral pleural effusions: left side appears loculated possible empyema. Pneumonia: septic emboli, aspiration pneumonia. - CT chest 11/03 improving Respiratory failure, self extubated 10/17 IVDA: heroin, cocaine and methamphetamine. Acute renal failure: Sepsis, meds,contrast. - on HD Low platelets: ? meds, sepsis. HIT. Ascites: 3rd spacing vs infection related. Recs: Continue Ancef IV (for MSSA TV endocarditis) Sputum Cx with normal resp heri. 2D ECHO moderate to severe TR. Follow peritoneal fluid analysis - tap should help some with his respiratory status Monitor progress Chelsy Kramer MD Nov 10, 2017 12:58
[2017-11-10] MEDS ORDERED: ALBUMIN 25% INJ 0 ML IV ONE (13:00)
[2017-11-10] MEDS: FERROUS SULFATE 325 MG (65 MG ELEMENTAL IRON) TAB PO SCH ×2 (13:09→16:36)
[2017-11-10] MEDS: GABAPENTIN 100 MG CAP PO SCH (13:12)
[2017-11-10 13:27] LABS: PERITONEAL RBC 41 /MM3 (0-0)
[2017-11-10 13:30] LABS: PERITONEAL EOS 1 %; PERITONEAL HISTIOCYTES 9 %; PERITONEAL LYMPHS 10 %; PERITONEAL MESOTHELIAL 1 %; PERITONEAL MONOS 3 %; PERITONEAL POLYS(SEGS) 76 %
--- NOTE | 2017-11-10 13:40 | HHI.PR ---
Subjective Remarks Deferred entry. The patient was seen earlier at 10:45 AM. The patient states that he feels uncomfortable, very distended. The patient states that he is afraid of procedure to be done. Denies chest pain or shortness of breath. Objective Vitals Vital Signs Date Time Temp Pulse Resp B/P (MAP) Pulse Ox O2 Delivery O2 Flow Rate FiO2 11/10/17 08:06 98.2 102 17 95/74 (81) 97 11/10/17 08:00 Nasal Cannula 4.00 30 11/10/17 04:17 97.2 105 18 95/61 (72) 95 11/10/17 04:00 101 11/10/17 02:02 19 11/10/17 00:39 97 11/10/17 00:00 97.3 101 18 95/64 (74) 96 11/09/17 22:36 96 Nasal Cannula 4.00 11/09/17 22:25 Nasal Cannula 4.00 11/09/17 20:37 101 11/09/17 20:00 98.0 102 17 98/66 (77) 96 11/09/17 17:57 103 11/09/17 16:00 97.4 104 20 109/56 (73) 97 11/09/17 15:09 Nasal Cannula 4.00 I/O 11/09/17 11/09/17 11/09/17 11/10/17 11/10/17 11/10/17 07:00 15:00 23:00 07:00 15:00 23:00 Intake Total 100 ml 240 ml 280 ml Balance 100 ml 240 ml 280 ml Intake Oral 240 ml 180 ml IV Total 100 ml 100 ml # Voids 1 # Bowel Movements 1 0 Result Diagram: 11/10/17 1010 11/10/17 1000 Imaging Last Impressions Abdomen Ultrasound 11/07/17 0000 Signed Impressions: Service Date/Time: Tuesday, November 07, 2017 11:36 - CONCLUSION: Moderate amount of ascites confirmed for subsequent paracentesis but the patient refused the procedure and therefore was sent back to the floor. Khoi Padilla MD Chest CT 11/03/17 0000 Signed Impressions: Service Date/Time: Friday, November 03, 2017 10:16 - CONCLUSION: Scattered areas of consolidation and scattered nodular foci identified, a overall improved from the previous study however the consolidation in the right middle lobe is increased and is a change from previous studies. Chadwick Diaz MD Chest X-Ray 10/30/17 0000 Signed Impressions: Service Date/Time: October 17:04 - CONCLUSION: Increasing bilateral scattered pulmonary infiltrates compared to the prior study. Victorino Vang MD Liver Ultrasound 10/24/17 0000 Signed Impressions: Service Date/Time: Tuesday, October 24, 2017 16:43 - CONCLUSION: Hepatosplenomegaly with ascites. Echogenic kidney Madi Mccartney MD Abdomen/Pelvis CT 10/24/17 0000 Signed Impressions: Service Date/Time: Tuesday, October 24, 2017 21:37 - CONCLUSION: 1. Hepatosplenomegaly. 2. Moderate amount of ascites. 3. Diffuse anasarca. 4. Bibasilar pleural effusions and scattered infiltrates. Khoi Padilla MD Tunnelled Chest Tube Removal 10/20/17 0000 Signed Impressions: Service Date/Time: Friday, October 20, 2017 00:00 - CONCLUSION: Uncomplicated chest tube removal. Madi Mccartney MD Upper Extremity Ultrasound 10/13/17 0000 Signed Impressions: Service Date/Time: Friday, October 13, 2017 11:25 - CONCLUSION: Normal examination. Christian Kaur MD Abdomen X-Ray 10/10/17 0000 Signed Impressions: Service Date/Time: Tuesday, October 10, 2017 16:46 - CONCLUSION: Negative for free air or obstruction. Rahul Yarbrough MD FACR Chest Tube Insertion 10/06/17 0000 Signed Impressions: Service Date/Time: Friday, October 06, 2017 15:37 - CONCLUSION: Uncomplicated chest tube placement as above. Emerson Hui MD Objective Remarks AAOx3 mild distress due to pain S1S2 RRR, soft 2/6 systolic murmur Abdomen soft, nt, nd +1 edema in lower extremities BL Procedures CT-guided chest tube placement on left chest. Date 10/06/17. Medications and IVs Current Medications Medications (Trade) Dose Ordered Sig/Willem Route Start Time Stop Time Status Last Admin (NS Flush) 2 ml UNSCH PRN IV FLUSH 10/03/17 21:15 10/15/17 20:58 (NS Flush) 2 ml BID IV FLUSH 10/04/17 09:00 11/10/17 09:58 (Zofran Inj) 4 mg Q6H PRN IV PUSH 10/03/17 21:15 11/05/17 12:44 (Restoril) 15 mg HS PRN PO 10/03/17 21:15 10/27/17 20:29 Miscellaneous Information 1 Q361D XX 10/03/17 21:15 (Chlorhexidine 2% Cloth) Taper DAILY@04 TOP 10/04/17 04:00 09/30/18 03:59 10/26/17 21:40 (Chlorhexidine 2% Cloth) 3 pack UNSCH PRN TOP 10/03/17 21:15 (Renita-Colace) 1 tab BID PO 10/04/17 09:00 11/09/17 09:15 (Senokot) 17.2 mg Q12H PRN PO 10/03/17 21:15 (Dulcolax Supp) 10 mg DAILY PRN RECTAL 10/03/17 21:15 10/11/17 17:08 (Lactulose Liq) 30 ml DAILY PRN PO 10/03/17 21:15 10/11/17 17:08 (Flovent Hfa 44 Mcg Inh) 2 puff BID INH 10/04/17 09:00 11/10/17 09:58 (Peridex 0.12% Liq) 15 ml BID@08,20 MT 10/04/17 20:00 11/10/17 10:13 Sodium Chloride 1,000 ml @ 0 mls/hr Q0M PRN OTHER 10/08/17 10:33 10/25/17 10:39 (Heparin Inj) 8,000 units UNSCH PRN IV FLUSH 10/08/17 10:45 Sodium Chloride 1,000 ml @ 200 mls/hr Q5H PRN IV 10/08/17 11:15 11/08/17 09:57 Sodium Chloride 1,000 ml @ 0 mls/hr Q0M PRN OTHER 10/08/17 11:15 (Mannitol Inj) 12.5 gm UNSCH PRN IV 10/08/17 11:15 11/06/17 14:30 Albumin Human 100 ml @ 60 mls/hr UNSCH PRN IV 10/08/17 11:30 11/06/17 14:30 (NS Flush) 5 ml UNSCH PRN IV FLUSH 10/08/17 11:15 10/25/17 10:40 (Heparin Inj) UNSCH PRN .XX 10/08/17 11:15 11/08/17 09:57 (Gentamicin Inj) 20 mg UNSCH PRN OTHER 10/08/17 11:15 11/08/17 09:58 (Zofran Inj) 4 mg UNSCH PRN IV PUSH 10/08/17 11:15 (Nitrostat Sl) 0.4 mg UNSCH PRN SL 10/08/17 11:30 (Catapres) 0.1 mg UNSCH PRN PO 10/08/17 11:30 (Epogen Inj) 10,000 units UNSCH PRN IV PUSH 10/08/17 11:30 11/08/17 09:58 (Gelfoam 12 Mm/7 Mm Top) 1 foam UNSCH PRN TOP 10/08/17 11:30 (Lactinex) 1 tab TID PO 10/17/17 13:00 11/10/17 13:07 (Duragesic 100 Mcg Patch.72 Hr) 1 patch Q3D T-DERMAL 10/18/17 12:00 11/08/17 13:18 Miscellaneous Information 1 Q3D T-DERMAL 10/21/17 12:00 11/08/17 13:18 (Santyl Oint) 1 applic DAILY TOPICAL 10/20/17 16:00 11/10/17 10:22 (Albuterol Neb) 2.5 mg Q2HR NEB PRN NEB 10/21/17 13:30 11/10/17 10:35 (Protonix) 40 mg Q12HR PO 10/21/17 21:00 11/10/17 09:57 (Heparin Inj) 5,000 units Q12HR SQ 10/21/17 21:00 11/09/17 22:27 (Phoslo) 667 mg TID PO 10/23/17 13:00 11/10/17 13:07 Cefazolin Sodium 1000 mg/Sodium Chloride 100 ml @ 200 mls/hr Q12H IV 10/24/17 03:00 11/10/17 02:02 (Haldol Inj) 5 mg Q4H PRN IV PUSH 10/23/17 23:30 10/26/17 23:39 (Lopressor) 25 mg Q8HR PO 10/25/17 22:00 11/03/17 14:24 (Sodium Chloride) 1 gm DAILY PO 10/26/17 09:00 11/10/17 09:57 (Ferrous Sulfate) 325 mg BID@,17 PO 10/27/17 12:00 11/10/17 13:09 (Tylenol) 500 mg Q6HR PO 10/31/17 00:00 11/10/17 13:10 (Roxicodone) 5 mg Q6H PRN PO 10/30/17 20:00 11/10/17 10:10 (Zanaflex) 2 mg Q8HR PO 10/30/17 22:00 11/10/17 13:08 (Atarax) 50 mg Q8H PRN PO 10/31/17 17:15 11/10/17 10:33 (Cymbalta Dr) 60 mg DAILY PO 11/03/17 12:00 11/10/17 09:57 (Neurontin) 300 mg Q24H PO 11/06/17 13:00 11/10/17 13:12 (Narcan Inj) 0.4 mg Q2M PRN IV PUSH 11/08/17 20:15 11/08/17 20:16 (Proamatine) 5 mg TID@,, PO 11/09/17 17:00 11/10/17 13:12 A/P Problem List: (1) Endocarditis ICD Code: I38 - Endocarditis, valve unspecified Status: Acute Plan: 2D echocardiogram as stated above showed a large tricuspid valve vegetation. Repeat bedside echocardiogram on 10/18 showed a similar size vegetation. Cardiology and CT surgery has followed. D/W Dr. Charles declined surgery due to active IV drug use, multiple medical complications. Discussed with [facility] who agreed with plan of our cardiothoracic surgeon. [facility] administration has denied the patient as well per CM. ID consulted. Continue IV antibiotics as per ID. Currently on IV cefazolin. (2) MSSA bacteremia ICD Code: R78.81 - Bacteremia Plan: Continue IV antibiotics as per ID. Last blood cultures on 10/18 negative 5. 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 Dr Bradley decilned performing surgery on patient. (4) IV drug abuse ICD Code: F19.10 - Other psychoactive substance abuse, uncomplicated Plan: The patient states he has not used drugs in 3 months. Advised and reinforced drug cessation. (5) Pleural effusion, bilateral ICD Code: J90 - Pleural effusion, not elsewhere classified Plan: Likely secondary to fluid overload and acute systolic heart failure. The patient has been dialyzed. (6) Septic embolism ICD Code: I26.90 - Septic pulmonary embolism without acute cor pulmonale Status: Acute Plan: Secondary to tricuspid valve endocarditis. On 4 L nasal cannula. Likely chronic respiratory failure. (7) Hepatitis C ICD Code: B19.20 - Unspecified viral hepatitis C without hepatic coma Plan: Hepatitis C antibody reactive. Hepatitis C viral load [id number]. Hepatitis C genotype 1A. Hepatitic ultrasound revealed hepatosplenomegaly. We will refer to GI as an outpatient for treatment. (8) Hepatosplenomegaly ICD Code: R16.2 - Hepatomegaly with splenomegaly, not elsewhere classified Plan: As seen on CT of the abdomen and pelvis with moderate amount of ascites and diffuse anasarca. (9) Sacral decubitus ulcer, stage IV ICD Code: L89.154 - Pressure ulcer of sacral region, stage 4 Status: Acute Plan: Consult wound care. (10) Anasarca ICD Code: R60.1 - Generalized edema Plan: As evidenced by bilateral pleural effusions, ascites and anasarca described on CT abdomen and pelvis. Patient refused abdominal paracentesis. Patient being dialyzed. 11/10 For Diagnostic and therapeutic abdominal paracentesis today. (11) Acute systolic heart failure ICD Code: I50.21 - Acute systolic (congestive) heart failure Plan: Echo with EF of 35-40%. Treat fluid overload with dialysis. (12) Moderate protein-calorie malnutrition ICD Code: E44.0 - Moderate protein-calorie malnutrition Status: Acute Plan: Low albumin. dietary consulted ---> recommended liberalizing diet since protein restriction not needed. This was ordered. Nepro BID ordered by me. (13) Hyponatremia ICD Code: E87.1 - Hypo-osmolality and hyponatremia Status: Acute Plan: On fluid restriction - continue. (14) ZEUS (acute kidney injury) ICD Code: N17.9 - Acute kidney failure, unspecified Plan: Most likely due to ATN from sepsis and low blood pressure. HD started on 10/08. Continue dialysis as per nephrology. Dialysis currently on Friday/ and Friday schedule. Avoid nephrotoxins, continue to monitor BUN and creatinine. 11/09 hemoglobin dropped from 8.9-7.7. No obvious bleeding. Continue to monitor hemoglobin and hematocrit. Transfuse as needed for hemoglobin less than 7 or symptomatic anemia. (15) Anemia ICD Code: D64.9 - Anemia, unspecified Plan: On ferrous sulfate and Epogen as per nephrology. Anemia likely secondary to chronic kidney disease. (16) Debility ICD Code: R53.81 - Other malaise Status: Acute Plan: Continue PT and OT. Patient will need to go to rehab upon discharge. (17) Transaminitis ICD Code: R74.0 - Nonspecific elevation of levels of transaminase and lactic acid dehydrogenase [LDH] Status: Resolved Plan: Now resolved. Continue to monitor liver function tests. Transaminitis likely secondary to sepsis and hepatitis C. 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 Patient also has history of chronic opiate dependence. Dr. Barry saw the patient in consultation for pain management on October 30, 2017. He recommended fentanyl patch 100 mcg/h every 3 days. Scheduled Tylenol 500 mg p.o. every 6 hours for adjuvant pain therapy, gabapentin 200 mg p.o. every 12 hours. Given renal dysfunction recommended titration to be a slowly made from 100-200 mg per day every 3-5 days to a maximum of 1800- 3600 mg per day. Recommended tizanidine 2 mg p.o. every 8 hours. Recommended oxycodone 5 mg p.o. every 6 hours as needed pain for breakthrough pain. (19) MARTÍN positive ICD Code: R76.8 - Other specified abnormal immunological findings in serum Status: Acute Plan: The patient also has a positive MARTÍN with a titer of 1: 40 with a diffuse pattern. This is a low pattern and the patient does not have any other symptoms consistent with rheumatic disease. Will not pursue any further testing. The patient will need to follow-up as an outpatient by his primary care physician. (20) Hypotension ICD Code: I95.9 - Hypotension, unspecified Plan: Unclear etiology of hypotension. However the patient is on hemodialysis and is hypoalbuminemic, also patient is on several medications to control pain including fentanyl patch, Roxicodone, gabapentin. All of these factors could be contributing to the patient's hypotension. Upon review of records the patient has been hypotensive for some time now. Patient's hypotension started on 10/31/17 and blood pressure occasionally goes up , however it is most consistently in the high 80s to low 90s systolic. Start midodrine for blood pressure support. 11/10 BP better but bp still lowin the 90's systolic. Increase Midodrine dose to 10 mg po tid. Assessment and Plan DVT prophylaxis: SCDs, heparin subcutaneously. Discharge Planning Continue to monitor the medical floor. Pending clinical improvement. Problem Qualifiers (1) Endocarditis: (2) Hepatitis C: (3) Anemia: (4) Hypotension: Qualified Codes: I95.9 - Hypotension, unspecified Nathan Krishnan MD Nov 10, 2017 13:40
--- NOTE | 2017-11-10 13:41 | RADRPT ---
EXAM DATE/TIME: 11/10/2017 10:52 [facility] COMPARISON: No previous studies available for comparison. INDICATIONS : Ascites. MEDICAL HISTORY : Methicillin-resistant Staphylococcus aureus. Hepatitis C. IVDU. Endocarditis. SURGICAL HISTORY : None. ENCOUNTER: Initial ACUITY: 1 day PAIN SCORE: 0/10 LOCATION: Right lower quadrant FLUID: Total volume of 3600 cc of clear, yellowascites. fluid was removed. Fluid was sent to lab for ordered studies. Post procedure scanning reveals no hematoma or other complication. TECHNIQUE: 1. Ultrasound guidance for abdominal paracentesis. 2. Paracentesis. The risks, benefits, and alternatives to ultrasound guided paracentesis were explained to the patient in detail including the risk of bleeding and infection. Written and verbal informed consent was obt ained. With the patient on the ultrasound table, ultrasound imaging was used to select the most appropriate approach for paracentesis. Overlying skin was prepped and draped in the usual sterile fashion and wi th a local anesthetic, a dermatotomy was made with an 11 blade scalpel. A 6 [place] [id number] ca theter was introduced into the peritoneal cavity and fluid was collected. The patient tolerated the procedure well and left the ultrasound suite in stable condition. CONCLUSION: Uncomplicated ultrasound guided paracentesis. Madi Mccartney MD on November 10, 2017 at 13:39 Board Certified Radiologist. This report was verified electronically.
[2017-11-10] MEDS ORDERED: LIDOCAINE HCL 1% 20 ML VIAL ONE (15:55)
--- NOTE | 2017-11-10 17:17 | PD.WCN.NOT ---
Wound Consult Description: Received reconsult from Doctor Bolaños for evaluation of pressure ulcer to sacral region from Doctor Bolaños Communicated with: RN Ehsan may and Doctor Bolaños Recommendation: Consult plastics for possible debridement of previously noted unstageable pressure injury, that is now a stage 4 sacral pressure injury 1.Please cleanse wound to sacrum, coccyx, and bilateral buttocks with normal saline only and pat dry. 2.Apply Santyl tj thickness to wound bed only 3. Pack wound loosely with 0.125% dakin's solution moistened gauze 4.Cover with bordered gauze and Change dressing daily.Until seen by plastics. 5. Apply skin prep to periwound and before securing dressing. 4.Turn patient every 2 hours and PRN for comfort and offloading of pressure from bhargavi prominences. For R posterior leg. 1.Cleanse wound with normal saline and pat dry. 2. Apply Santyl tj thickness to wound bed and cover with dry 4x4 gauze. 3. Secure dressing with rolled gauze and tape. 4. Change dressing daily. Additional Information: Patient seen on for follow up of wound to sacrum, coccyx, and bilateral buttock buttocks previously noted as unstageable pressure injury. Patient seen today with Lucille NIXON and commercial lines underwriter. Patient is noted laying on advanced turn pressure redistributing surface. Patient was turned with the assistance of Lucille NIXON and commercial lines underwriter to to L side for wound assessment. Removed bordered gauze, and gauze dressing in place to reveal stage 4 pressure injury to sacral, coccyx and bilateral buttock area. Wound bed presents with ~30% red granulation tissue and ~50% yellow loosely adherent slough and ~10% subcutaneous tissue, and ~ 10% facia. Wound margins are uneven, but well defined. Periwound presents with pink skin that is blanchable Wound measures 8.9cm x 10.5 cm x ~2cm. Undermining is noted between 9 and 12 o'clock, deepest at 12 o'clock measuring 2.7cm. Wound was cleansed with normal saline and patted dry. Apply Santyl tj thickness to saline moistened 4x4 gauze pad and loosely packed wound. Covered with dry 4x4 gauze pad. Secured dressing with bordered gauze. Skin prep was applied to periwound and intact skin to be covered by dressing. Assessed full thickness wound to R posterior leg that presents with ~70% brown/ yellow slough coverage and ~30% pink tissue. Wound presents dry without active drainage or odor. Periwound is unremarkable.Wound measures ~2cm x ~2cm x ~0.2cm .Wound was cleansed with normal saline and left open to air. RN to apply dressing as recommended above when supplies obtained and wound care order is in place. Patient tolerated wound assessment fairly , with some complaints of pain with undermining assessment.RN Ehsan to medicate patient for pain.Patient was positioned off bottom with pillow in place for support. Recommendations for wound care noted above. Also recommend plastics for debridement. Aury Arceo [facility]ITALPham Nov 10, 2017 17:17
[2017-11-10 18:38] LABS: HEMATOCRIT 22.9 % (39.0-51.0); HEMOGLOBIN 7.7 GM/DL (13.0-17.0); MEAN CELL VOLUME 86.1 FL (80.0-100.0); MEAN CORPUSCULAR HEMOGLOBIN 28.8 PG (27.0-34.0); MEAN CORPUSCULAR HGB CONC 33.4 % (32.0-36.0); MEAN PLATELET VOLUME 7.8 FL (7.0-11.0); PLATELET COUNT 100 TH/MM3 (150-450); RED BLOOD COUNT 2.66 MIL/MM3 (4.50-5.90); RED CELL DISTRIBUTION WIDTH 20.2 % (11.6-17.2); WHITE BLOOD COUNT 11.3 TH/MM3 (4.0-11.0)
[2017-11-10 18:50] LABS: INTERNATIONAL NORMALIZED RATIO 1.6 RATIO; PROTHROMBIN TIME - PATIENT 16.2 SEC (9.8-11.6)
--- NOTE | 2017-11-10 20:42 | HHI.PR ---
Subjective Remarks 27 YOWM with bilat infilt, pl eff, MSSA Endocarditis up in chair Cough with small amount of sp Swelling legs decreased Had Paracentesis done Objective Vital Signs Vital Signs Date Time Temp Pulse Resp B/P (MAP) Pulse Ox O2 Delivery O2 Flow Rate FiO2 11/10/17 16:06 98.2 106 18 98/55 (69) 95 11/10/17 16:00 104 11/10/17 12:06 97.5 109 17 96/64 (75) 98 11/10/17 08:06 98.2 102 17 95/74 (81) 97 11/10/17 08:00 Nasal Cannula 4.00 30 11/10/17 04:17 97.2 105 18 95/61 (72) 95 11/10/17 04:00 101 11/10/17 02:02 19 11/10/17 00:39 97 11/10/17 00:00 97.3 101 18 95/64 (74) 96 11/09/17 22:36 96 Nasal Cannula 4.00 11/09/17 22:25 Nasal Cannula 4.00 I/O 11/09/17 11/09/17 11/09/17 11/10/17 11/10/17 11/10/17 07:00 15:00 23:00 07:00 15:00 23:00 Intake Total 100 ml 240 ml 280 ml 700 ml Output Total 200 ml Balance 100 ml 240 ml 280 ml 500 ml Intake Oral 240 ml 180 ml 600 ml IV Total 100 ml 100 ml 100 ml Output Urine Total 200 ml # Voids 1 # Bowel Movements 1 0 0 Result Diagram: 11/10/17 1737 11/10/17 1000 Objective Remarks GENERAL: MBMN WM, mild sob SKIN: Warm and dry. HEAD: Normocephalic. EYES: No scleral icterus. No injection or drainage. NECK: Supple, trachea midline. No JVD or lymphadenopathy. CARDIOVASCULAR: Regular rate and rhythm without murmurs, gallops, or rubs. RESPIRATORY: Breath sounds equal bilaterally. No accessory muscle use. GASTROINTESTINAL: Abdomen soft, non-tender, nondistended. Abd distended, non tender MUSCULOSKELETAL: No cyanosis, ++ edema. BACK: Nontender without obvious deformity. No CVA tenderness. A/P Assessment and Plan Bilat infilterates improving Pl eff small Abd distension MSSA Endocarditis renal failure PLAN: Aerosol nebs Cont Abx per ID Monitor lytes Supplement 02 Pl eff small, will monitor HD per renal Jony Bustamante MD Nov 10, 2017 20:42
[2017-11-11] VITALS (9 sets, daily range): BP systolic 86–103; BP diastolic 49–55; PULSE 81–109; RESP 18–22; TEMP 97.3–98.8; O2SAT 91–97
[2017-11-11] MEDS: ACETAMINOPHEN 500 MG CPLT PO SCH ×4 (01:02→17:09)
[2017-11-11] MEDS: TEMAZEPAM 15 MG CAP PO PRN (01:02)
[2017-11-11] MEDS: CHLORHEXIDINE GLUCONATE 2 % 1 PACK (2 CLOTHS) TOP SCH (03:03)
[2017-11-11] MEDS: RESP: ALBUTEROL 2.5 MG/3 ML NEB (PRN) NEB ×2 (04:51→14:29)
[2017-11-11] MEDS: MIDODRINE 5 MG TAB PO SCH ×3 (06:18→17:09)
[2017-11-11] MEDS: METOPROLOL TARTRATE 25 MG TAB PO SCH ×3 (06:18→20:53)
[2017-11-11] MEDS: CHLORHEXIDINE 0.12% (ORAL KIT) 15 ML CUP MT SCH ×2 (08:00→20:00)
[2017-11-11] MEDS: LACTOBACILLUS ACIDOPHILUS TAB PO SCH ×3 (08:48→17:08)
[2017-11-11] MEDS: DULoxetine HCl DR 60 MG CAP PO SCH (08:48)
[2017-11-11] MEDS: SODIUM CHLORIDE 1 GRAM TAB PO SCH (08:48)
[2017-11-11] MEDS: PANTOPRAZOLE SOD 40 MG DELAYED RELEASE TAB PO SCH ×2 (08:48→20:53)
[2017-11-11] MEDS: CALCIUM ACETATE 667 MG CAP PO SCH ×3 (08:48→17:08)
[2017-11-11] MEDS: FLUTICASONE PROPIONATE 44 MCG/ACT 10.6 GM INHALER INH SCH ×2 (08:49→20:59)
[2017-11-11] MEDS: SODIUM CHLORIDE 0.9% FLUSH 10 ML FLUSH IV FLUSH SCH ×2 (08:49→20:55)
[2017-11-11] MEDS: SODIUM HYPOCHLORITE 0.125% 500 ML BTL TOPICAL SCH (08:49)
[2017-11-11] MEDS: COLLAGENASE OINT 30 GM TUBE TOPICAL SCH (08:49)
[2017-11-11] MEDS: HEPARIN SODIUM - SQ 10,000 UNITS/ML VIAL SQ SCH ×2 (08:49→20:54)
[2017-11-11] MEDS: DOCUSATE SODIUM 50 MG/SENNA 8.6 MG TAB PO SCH ×2 (08:49→20:52)
[2017-11-11] MEDS: ALBUMIN 25% INJ 100 ML IV PRN ×2 (09:41→09:54)
[2017-11-11] MEDS: MANNITOL 12.5 GM/50 ML VIAL IV PRN (10:04)
[2017-11-11] MEDS: ONDANSETRON HCL 4 MG/2 ML VIAL IV PUSH PRN (11:45)
[2017-11-11] MEDS: EPOETIN ALFA 10,000 UNITS/ML VIAL IV PUSH PRN (11:59)
[2017-11-11] MEDS: REMOVE OLD PATCH T-DERMAL SCH (12:00)
[2017-11-11] MEDS: fentaNYL 100 MCG/HR PATCH T-DERMAL SCH (12:00)
[2017-11-11 12:04] LABS: AMYLASE BODY FLUID 19 U/L; AMYLASE BODY FLUID TYPE PERITONEAL
[2017-11-11] MEDS: GABAPENTIN 100 MG CAP PO SCH (13:18)
[2017-11-11] MEDS: FERROUS SULFATE 325 MG (65 MG ELEMENTAL IRON) TAB PO SCH ×2 (13:19→17:08)
--- NOTE | 2017-11-11 13:25 | HHI.NPPN ---
Subjective Complaints: Shortness of Breath Renal Failure: Acute History of Present Illness Patient is 27-year-old male who reported to ER with body aches, 7 days of diarrhea with development fever. Past medical history of IV drug use. Patient is sedated and ventilated FiO2 at 40 %. Nephrology is consulted for ZEUS and fluid over load status. Patients creatinine is 3.02 and GFR 25ml/min. Patient is UOP at 800cc for last 24 hours. Weight has increased by over 10 kg since admission. IVF's have been stopped and lasix has been given. Patient has endocarditis with large tricuspid valve vegetation, and pulmonic vegetation. Noted to have bacteremia with hypotension with SBP in the 90's. Additional Remarks Seen during dialysis. Patient is alert. (Venus Barrett) Review of Systems Respiratory Lungs: SOB Respiratory Remarks mild (Venus Barrett) Cardiovascular Cardiac Remarks denies CP (Venus Barrett) Psych Psych: Depression, Anxiety (Venus Barrett) Objective Data Data 11/11/17 11/12/17 19:00 07:00 Intake Total 200 ml Output Total 1500 ml Balance -1300 ml IV Total 200 ml Hemodialysis 1500 ml Vital Signs Date Time Temp Pulse Resp B/P (MAP) Pulse Ox O2 Delivery O2 Flow Rate FiO2 11/11/17 08:00 Nasal Cannula 4.00 11/11/17 08:00 91 11/11/17 08:00 97.3 87 20 86/53 (64) 95 11/11/17 06:20 100 92/49 (63) 92 11/11/17 06:20 Nasal Cannula 4.00 11/11/17 04:00 Nasal Cannula 4.00 11/11/17 03:42 96 11/11/17 03:01 98.3 104 18 93/55 (68) 92 11/11/17 00:00 97.4 99 22 103/51 (68) 97 11/10/17 23:40 97 11/10/17 22:25 Nasal Cannula 4.00 11/10/17 19:55 Nasal Cannula 4.00 11/10/17 16:06 98.2 106 18 98/55 (69) 95 11/10/17 16:00 104 (Venus Barrett) -: 11/10/17 1737 11/10/17 1000 Tubes & Lines: Vas-Cath (Venus Barrett. [employer]) Physical Exam General Appearance: No Acute Distress, Comfortable (Venus Barrett. [employer]) Eyes Eye Exam: Pupils Equal (Venus Barrett M. [employer]) Pulmonary Resp Exam: Decreased Bases, Diminished Breath Sounds (Corinne Barrettne M. [employer]) Cardiology CV Exam: Tachycardia (Venus Barrett [employer]) Gastrointestinal/Abdomen GI Exam: Soft, Non-Tender, Bowel Sounds Present, Distended (AnjumlerVenus patiño M. [employer]) Integumentary Skin Exam: Clear, Warm (Venus Barrett. [employer]) Extremeties Extremities Exam: Moderate Edema (Venus Barrett. [employer]) Neurologic Neuro Exam: Awake (Venus Barrett. [employer]) Psychiatric Psych Exam: Appropriate Responses (Venus Barrett [employer]) Assessment/Plan Assessment Summary: ZEUS/Acute Renal Failure Electrolyte Assessment: Hyponatremia Problem List: (1) ZEUS (acute kidney injury) ICD Codes: N17.9 - Acute kidney failure, unspecified Plan: ZEUS most likely ATN from sepsis and low blood pressure. Other differential will be ATN, Acute interstitial nephritis, and Post infectious GN,unlikely. HD started on 10/08 Plan Dialysis currently T/ through vas cath Continue Epogen with dialysis Continue phoslo Follow the urine out put and BMP. Seen during dialysis 1.5 liters removed Hypotension on midodrine 10 mg TID (2) Sepsis ICD Codes: A41.9 - Sepsis, unspecified organism Status: Acute Plan: Antibiotics per ID (3) Endocarditis ICD Codes: I38 - Endocarditis, valve unspecified Status: Acute Plan: antibiotics renal dosing (Venus Barrett. [employer]) Problem List: (1) ZEUS (acute kidney injury) ICD Codes: N17.9 - Acute kidney failure, unspecified Plan: ZEUS most likely ATN from sepsis and low blood pressure. Other differential will be ATN, Acute interstitial nephritis, and Post infectious GN,unlikely. HD started on 10/08 Plan Dialysis currently T// through vas cath Continue Epogen with dialysis Continue phoslo Follow the urine out put and BMP. Seen during dialysis 1.5 liters removed Hypotension on midodrine 10 mg TID. Decrease Metoprolol 12.5 mg. (2) Sepsis ICD Codes: A41.9 - Sepsis, unspecified organism Status: Acute Plan: Antibiotics per ID (3) Endocarditis ICD Codes: I38 - Endocarditis, valve unspecified Status: Acute Plan: antibiotics renal dosing (Darek Tapia MD) Problem Qualifiers (1) Sepsis: Qualified Codes: A41.9 - Sepsis, unspecified organism (2) Endocarditis: Venus Barrett Nov 11, 2017 13:25 Darek Tapia MD Nov 11, 2017 18:13
--- NOTE | 2017-11-11 16:53 | HHI.HCPN ---
Reason for visit a. To assist with evaluation and management of symptoms including: Debility. b. To assist medical decision maker(s) with: better understanding of current medical conditions; weighing benefits/burdens of medical treatment options; making medical treatment decisions. . Subjective/Interval History Palliative care follow-up for further clarifications of goals of care, emotional support. Patient seen in his room. No family at bedside. Lying in bed. arouses easily, lethargic, in no acute distress. He reports that his breathing is better after paracentesis for removal of 3.6L on 11/10/17. Post hemodialysis on 11/11/17. Trace LE edema noted. He reports a constant, aching pain to lower back and buttocks area, currently rated at 8/10. Denies chest pain. He states his appetite is good, though lunch tray is unopened at bedside (visit done around 3pm). Nursing documentation of meals on 11/10 was 25-75% of meals. Afebrile. Hypotensive, BP 86/53, asymptomatic while lying in bed. Remains on oxygen via NC 4 LPM. No new labs or imaging today. Peritoneal fluid culture 11/10 no growth in 24 hours. Patient denies any questions or concerns during my visit. Advised palliative care will continue to follow, he agrees. . Family/friend interactions No family present. . Advance Directives Living Will: Never completed Health Care Surrogate: Never completed Durable Power of Lap Runner: Never completed Advance Directive Specifics Health Care Surrogate(s): No advance directives completed. Patient is single, no children. As per [place] statue, healthcare proxy decision making foals to patient's parents. . Significant change in goals: NO CODE. Patient/family goals remain aggressive. . Objective Vital Signs Date Time Temp Pulse Resp B/P (MAP) Pulse Ox O2 Delivery O2 Flow Rate FiO2 11/11/17 12:00 Nasal Cannula 4.00 11/11/17 08:00 Nasal Cannula 4.00 11/11/17 08:00 91 11/11/17 08:00 97.3 87 20 86/53 (64) 95 11/11/17 06:20 100 92/49 (63) 92 11/11/17 06:20 Nasal Cannula 4.00 11/11/17 04:00 Nasal Cannula 4.00 11/11/17 03:42 96 11/11/17 03:01 98.3 104 18 93/55 (68) 92 11/11/17 00:00 97.4 99 22 103/51 (68) 97 11/10/17 23:40 97 11/10/17 22:25 Nasal Cannula 4.00 11/10/17 19:55 Nasal Cannula 4.00 Intake & Output 11/11/17 11/11/17 07:00 19:00 Intake Total 720 ml 200 ml Output Total 0 ml 1500 ml Balance 720 ml -1300 ml Intake Oral 720 ml IV Total 200 ml Output Urine Total 0 ml Hemodialysis 1500 ml # Bowel Movements 1 Physical Exam CONSTITUTIONAL/GENERAL: This is an adequately nourished young patient sitting up in recliner chair in no acute distress. TUBES/LINES/DRAINS: Nasal cannula, Vas-Cath, PIV. SKIN: No jaundice, rashes, or lesions. Wounds on sacrum, coccyx and bilateral buttocks, not visualized during today's visit. Skin temperature appropriate. Not diaphoretic. Large areas of tattoos from head to toe, multiple body piercings. ENT: Hearing grossly normal. Nose without bleeding or purulent drainage. Moist oral mucosa. CARDIOVASCULAR: Regular rate and rhythm. RESPIRATORY/CHEST: Symmetric, unlabored respirations. Clear, diminished to auscultation. Breath sounds equal bilaterally. GASTROINTESTINAL: Abdomen large, distended, round, mildly tender. Bowel sounds present. Ascites. GENITOURINARY: Without palpable bladder distension. MUSCULOSKELETAL: Trace lower extremity edema. No mottling or clubbing. NEUROLOGICAL: Awakens easily. Alert to self, place and situation. Follows commands. Moves all extremities. PSYCHIATRIC: Calm, lethargic. . Diagnostic Tests Laboratory Laboratory Tests Test 11/08/17 17:00 11/09/17 07:45 11/10/17 10:00 11/10/17 10:10 White Blood Count 12.8 TH/MM3 (4.0-11.0) 11.8 TH/MM3 (4.0-11.0) 10.4 TH/MM3 (4.0-11.0) Red Blood Count 3.10 MIL/MM3 (4.50-5.90) 2.73 MIL/MM3 (4.50-5.90) 2.76 MIL/MM3 (4.50-5.90) Hemoglobin 8.9 GM/DL (13.0-17.0) 7.7 GM/DL (13.0-17.0) 8.1 GM/DL (13.0-17.0) Hematocrit 27.0 % (39.0-51.0) 23.3 % (39.0-51.0) 23.5 % (39.0-51.0) Mean Corpuscular Volume 87.1 FL (80.0-100.0) 85.5 FL (80.0-100.0) 85.4 FL (80.0-100.0) Mean Corpuscular Hemoglobin 28.6 PG (27.0-34.0) 28.4 PG (27.0-34.0) 29.2 PG (27.0-34.0) Mean Corpuscular Hemoglobin Concent 32.8 % (32.0-36.0) 33.2 % (32.0-36.0) 34.2 % (32.0-36.0) Red Cell Distribution Width 19.7 % (11.6-17.2) 20.0 % (11.6-17.2) 19.9 % (11.6-17.2) Platelet Count 141 TH/MM3 (150-450) 128 TH/MM3 (150-450) 115 TH/MM3 (150-450) Mean Platelet Volume 8.1 FL (7.0-11.0) 8.3 FL (7.0-11.0) 7.7 FL (7.0-11.0) Neutrophils (%) (Auto) 82.8 % (16.0-70.0) 81.3 % (16.0-70.0) 79.9 % (16.0-70.0) Lymphocytes (%) (Auto) 6.9 % (9.0-44.0) 7.8 % (9.0-44.0) 9.3 % (9.0-44.0) Monocytes (%) (Auto) 7.5 % (0.0-8.0) 7.6 % (0.0-8.0) 6.7 % (0.0-8.0) Eosinophils (%) (Auto) 1.5 % (0.0-4.0) 2.1 % (0.0-4.0) 2.9 % (0.0-4.0) Basophils (%) (Auto) 1.3 % (0.0-2.0) 1.2 % (0.0-2.0) 1.2 % (0.0-2.0) Neutrophils # (Auto) 10.6 TH/MM3 (1.8-7.7) 9.6 TH/MM3 (1.8-7.7) 8.3 TH/MM3 (1.8-7.7) Lymphocytes # (Auto) 0.9 TH/MM3 (1.0-4.8) 0.9 TH/MM3 (1.0-4.8) 1.0 TH/MM3 (1.0-4.8) Monocytes # (Auto) 1.0 TH/MM3 (0-0.9) 0.9 TH/MM3 (0-0.9) 0.7 TH/MM3 (0-0.9) Eosinophils # (Auto) 0.2 TH/MM3 (0-0.4) 0.2 TH/MM3 (0-0.4) 0.3 TH/MM3 (0-0.4) Basophils # (Auto) 0.2 TH/MM3 (0-0.2) 0.1 TH/MM3 (0-0.2) 0.1 TH/MM3 (0-0.2) CBC Comment DIFF FINAL DIFF FINAL DIFF FINAL Differential Comment Blood Urea Nitrogen 23 MG/DL (7-18) 25 MG/DL (7-18) 27 MG/DL (7-18) Creatinine 4.37 MG/DL (0.60-1.30) 4.87 MG/DL (0.60-1.30) 5.54 MG/DL (0.60-1.30) Random Glucose 91 MG/DL (74-106) 77 MG/DL (74-106) 88 MG/DL (74-106) Total Protein 8.2 GM/DL (6.4-8.2) 7.4 GM/DL (6.4-8.2) 8.0 GM/DL (6.4-8.2) Albumin 2.9 GM/DL (3.4-5.0) 2.7 GM/DL (3.4-5.0) Calcium Level 8.3 MG/DL (8.5-10.1) 8.5 MG/DL (8.5-10.1) 8.6 MG/DL (8.5-10.1) Alkaline Phosphatase 60 U/L (45-117) 63 U/L (45-117) Aspartate Amino Transf (AST/SGOT) 42 U/L (15-37) 26 U/L (15-37) Alanine Aminotransferase (ALT/SGPT) 7 U/L (12-78) 6 U/L (12-78) Total Bilirubin 1.2 MG/DL (0.2-1.0) 1.1 MG/DL (0.2-1.0) Sodium Level 133 MEQ/L (136-145) 130 MEQ/L (136-145) 130 MEQ/L (136-145) Potassium Level 3.6 MEQ/L (3.5-5.1) 3.4 MEQ/L (3.5-5.1) 3.5 MEQ/L (3.5-5.1) Chloride Level 95 MEQ/L (98-107) 93 MEQ/L (98-107) 92 MEQ/L (98-107) Carbon Dioxide Level 26.4 MEQ/L (21.0-32.0) 24.0 MEQ/L (21.0-32.0) 26.9 MEQ/L (21.0-32.0) Anion Gap 12 MEQ/L (5-15) 13 MEQ/L (5-15) 11 MEQ/L (5-15) Estimat Glomerular Filtration Rate 16 ML/MIN (>89) 15 ML/MIN (>89) 13 ML/MIN (>89) Phosphorus Level 3.0 MG/DL (2.5-4.9) Magnesium Level 1.7 MG/DL (1.5-2.5) Lactate Dehydrogenase 171 U/L (87-241) Test 11/10/17 11:45 11/10/17 17:37 Body Fluid Amylase Source PERITONEAL Body Fluid Amylase 19 U/L Peritoneal Fluid WBC 717 /MM3 (0-10) Peritoneal Fluid RBC 41 /MM3 (0-0) Peritoneal Fluid Neutrophils 76 % Peritoneal Fluid Lymphocytes 10 % Peritoneal Fluid Monocytes 3 % Peritoneal Fluid Eosinophils 1 % Peritoneal Fluid Histiocytes 9 % Peritoneal Fluid Mesothelial Cells 1 % Peritoneal Fluid Total Protein 5.4 GM/DL Peritoneal Fluid Albumin 2.2 G/DL Peritoneal Fluid LDH 106 U/L Peritoneal Fluid Glucose 86 MG/DL White Blood Count 11.3 TH/MM3 (4.0-11.0) Red Blood Count 2.66 MIL/MM3 (4.50-5.90) Hemoglobin 7.7 GM/DL (13.0-17.0) Hematocrit 22.9 % (39.0-51.0) Mean Corpuscular Volume 86.1 FL (80.0-100.0) Mean Corpuscular Hemoglobin 28.8 PG (27.0-34.0) Mean Corpuscular Hemoglobin Concent 33.4 % (32.0-36.0) Red Cell Distribution Width 20.2 % (11.6-17.2) Platelet Count 100 TH/MM3 (150-450) Mean Platelet Volume 7.8 FL (7.0-11.0) Prothrombin Time 16.2 SEC (9.8-11.6) Prothromb Time International Ratio 1.6 RATIO Activated Partial Thromboplast Time 35.5 SEC (24.3-30.1) Result Diagram: 11/10/17 1737 11/10/17 1000 Microbiology Microbiology Date/Time Source Procedure Growth Status 11/10/17 11:45 Fluid Peritoneal Fluid Gram Stain - Final Resulted 11/10/17 11:45 Fluid Peritoneal Fluid Body Fluid Culture - Preliminary NO GROWTH IN 24 HOURS. Resulted Imaging Last Impressions Cyst Biopsy Asp-Paracentesis US 11/10/17 0000 Signed Impressions: Service Date/Time: Friday, November 10, 2017 10:52 - CONCLUSION: Uncomplicated ultrasound guided paracentesis. Madi Mccartney MD Abdomen Ultrasound 11/07/17 0000 Signed Impressions: Service Date/Time: Tuesday, November 07, 2017 11:36 - CONCLUSION: Moderate amount of ascites confirmed for subsequent paracentesis but the patient refused the procedure and therefore was sent back to the floor. Khoi Padilla MD Chest CT 11/03/17 0000 Signed Impressions: Service Date/Time: Friday, November 03, 2017 10:16 - CONCLUSION: Scattered areas of consolidation and scattered nodular foci identified, a overall improved from the previous study however the consolidation in the right middle lobe is increased and is a change from previous studies. Chadwick Diaz MD Chest X-Ray 10/30/17 0000 Signed Impressions: Service Date/Time: October 17:04 - CONCLUSION: Increasing bilateral scattered pulmonary infiltrates compared to the prior study. Victorino Vang MD Liver Ultrasound 10/24/17 0000 Signed Impressions: Service Date/Time: Tuesday, October 24, 2017 16:43 - CONCLUSION: Hepatosplenomegaly with ascites. Echogenic kidney Madi Mccartney MD Abdomen/Pelvis CT 10/24/17 0000 Signed Impressions: Service Date/Time: Tuesday, October 24, 2017 21:37 - CONCLUSION: 1. Hepatosplenomegaly. 2. Moderate amount of ascites. 3. Diffuse anasarca. 4. Bibasilar pleural effusions and scattered infiltrates. Khoi Padilla MD Tunnelled Chest Tube Removal 10/20/17 0000 Signed Impressions: Service Date/Time: Friday, October 20, 2017 00:00 - CONCLUSION: Uncomplicated chest tube removal. Madi Mccartney MD Upper Extremity Ultrasound 10/13/17 0000 Signed Impressions: Service Date/Time: Friday, October 13, 2017 11:25 - CONCLUSION: Normal examination. Christian Kaur MD Abdomen X-Ray 10/10/17 0000 Signed Impressions: Service Date/Time: Tuesday, October 10, 2017 16:46 - CONCLUSION: Negative for free air or obstruction. Rahul Yarbrough MD FACR Chest Tube Insertion 10/06/17 0000 Signed Impressions: Service Date/Time: Friday, October 06, 2017 15:37 - CONCLUSION: Uncomplicated chest tube placement as above. Emerson Hui MD Procedures * 10/04/17 -endotracheal intubation * 10/08/17 -Vas-Cath placement * 10/09/17 -right pigtail chest tube * 10/17/17 -self extubated * 10/18/17 -chest tube discontinued . Assessment and Plan Disease Oriented Problem List: (1) Septic embolism (2) Tricuspid valve vegetation (3) MSSA bacteremia (4) Acute systolic heart failure (5) Hepatosplenomegaly (6) Hepatitis C (7) Anemia (8) ZEUS (acute kidney injury) (9) IV drug abuse Symptom Scale: (1) Depression 0-10 Scale: Unable to quantify (2) Debility 0-10 Scale: Unable to quantify (3) Pain 0-10 Scale: 6 Pertinent Non-Medical Issues Psychosocial: Patient originally from [facility]. Single, no children. Residing with both parents. 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 Patient is the only child. He reports being engaged to girlfriend Tamy. No service. Spiritual: Hindu julia. Legal: No advance directives completed Ethical issues impacting care: No ethical issues identified. . Important Contacts Mother Mely , alternate number for sister Venus. Father Mendoza . . Prognosis Mr. New is a 27-year-old male with a significant history of polysubstance drug abuse and asthma. Patient presented to the emergency room on 10/03/17 endorsing flulike symptoms. He was admitted for sepsis, pneumonia. ETT later revealing large tricuspid mobile vegetation. Clinical course complicated by extensive septic emboli, respiratory failure, acute kidney injury requiring hemodialysis. Cardiothoracic surgery at [place] in at [facility] again maría consulted. Patient not a surgical candidate given multiple medical complications. Overall prognosis is guarded, patient at high risk for ongoing septic emboli, further complications, continue decline and . . Code Status: Full Code Plan * HEALTHCARE DECISION-MAKING: Patient participating in medical decision making. Poor insight into his complicated medical issues. No advance directives completed. As per [place] statute, healthcare proxy decision making folds to patient's parents Mely and Mendoza New. * FULL CODE * GOALS OF CARE: Aggressive goals of care by default, both parents supportive of aggressive management. Disposition for this patient is affected by his socioeconomic situation, no payor source for rehabilitation or placement. Family previously verbalized not being able to care for him at home given higher level of needs. Comfort-directed care with hospice is definitely an option; however, hemodialysis would be discontinued which will leave patient with a life expectancy of 1-2 weeks. Both parents are NOT in line with comfort- director goals/hospice or discontinuation of HD. * SYMPTOMS: * =Depression: Patient reports significant anxiety and depression since childhood. Psychiatry started Cymbalta 60mg PO daily, mood seems improved. * =Debility: Secondary to acute illness, multiple medical complications and prolonged hospitalization. PT OT following. * =Pain: Management deferred to attending given significant history of polysubstance IV drug abuse. Dr. Fischer consulted for recommendations. * Palliative care contact information has been provided to patient and family. * Palliative care will continue to follow up for further clarification of goals , emotional support as patient's clinical course continues to evolve. . Attestation To help prompt me to consider important information that might be impacting today's encounter and assessment, information from prior notes written by myself or my colleagues may have been "brought forward" into today's note. My signature on this note, however, is an attestation that I personally performed the exam, history, and/or decision-making noted today, and, unless otherwise indicated, the interactions with patient, family, and staff as well as the review of records all occurred today. I also attest that the listed assessment and stated plan reflect my best clinical judgment today based on the combination of historical information, prior notes, and today's exam/ interactions. When time spent is documented, it refers only to time spent today by the signer, or if indicated, combined time spent today by collaborating physician/nurse practitioner. Zahra Sandoval Nov 11, 2017 16:53
[2017-11-11] MEDS ORDERED: PILL SPLITTER OTHER PRN (19:00)
--- NOTE | 2017-11-11 19:09 | HHI.PR ---
Subjective Remarks 27 YOWM with bilat infilt, pl eff, MSSA Endocarditis up in chair Cough with small amount of sp Swelling legs decreased Had Paracentesis done Sitting on the side of bed Breathing better Objective Vital Signs Vital Signs Date Time Temp Pulse Resp B/P (MAP) Pulse Ox O2 Delivery O2 Flow Rate FiO2 11/11/17 16:00 Nasal Cannula 4.00 11/11/17 16:00 109 11/11/17 16:00 98.8 88 20 88/53 (65) 91 11/11/17 12:00 Nasal Cannula 4.00 11/11/17 08:00 Nasal Cannula 4.00 11/11/17 08:00 91 11/11/17 08:00 97.3 87 20 86/53 (64) 95 11/11/17 06:20 100 92/49 (63) 92 11/11/17 06:20 Nasal Cannula 4.00 11/11/17 04:00 Nasal Cannula 4.00 11/11/17 03:42 96 11/11/17 03:01 98.3 104 18 93/55 (68) 92 11/11/17 00:00 97.4 99 22 103/51 (68) 97 11/10/17 23:40 97 11/10/17 22:25 Nasal Cannula 4.00 11/10/17 19:55 Nasal Cannula 4.00 I/O 11/10/17 11/10/17 11/10/17 11/11/17 11/11/17 11/11/17 07:00 15:00 23:00 07:00 15:00 23:00 Intake Total 280 ml 700 ml 720 ml 200 ml Output Total 200 ml 0 ml 1500 ml Balance 280 ml 500 ml 720 ml -1300 ml Intake Oral 180 ml 600 ml 720 ml IV Total 100 ml 100 ml 200 ml Output Urine Total 200 ml 0 ml Hemodialysis 1500 ml # Voids 1 # Bowel Movements 0 0 1 Result Diagram: 11/10/17 1737 11/10/17 1000 Objective Remarks GENERAL: MBMN WM, mild sob SKIN: Warm and dry. HEAD: Normocephalic. EYES: No scleral icterus. No injection or drainage. NECK: Supple, trachea midline. No JVD or lymphadenopathy. CARDIOVASCULAR: Regular rate and rhythm without murmurs, gallops, or rubs. RESPIRATORY: Breath sounds equal bilaterally. No accessory muscle use. GASTROINTESTINAL: Abdomen soft, non-tender, nondistended. Abd distended, non tender MUSCULOSKELETAL: No cyanosis, ++ edema. BACK: Nontender without obvious deformity. No CVA tenderness. A/P Assessment and Plan Bilat infilterates improving Pl eff small Abd distension MSSA Endocarditis renal failure PLAN: Aerosol nebs Cont Abx per ID Monitor lytes Supplement 02 Pl eff small, will monitor HD per renal Better after paracentesis, abd still distended oJny Bustamante MD Nov 11, 2017 19:09
[2017-11-11 22:29] LABS: AUTOMATED NEUTROPHIL # 7.6 TH/MM3 (1.8-7.7); BASOPHIL # 0.1 TH/MM3 (0-0.2); BASOPHIL % 1.4 % (0.0-2.0); EOSINOPHIL # 0.2 TH/MM3 (0-0.4); EOSINOPHIL % 2.2 % (0.0-4.0); HEMATOCRIT 25.4 % (39.0-51.0); HEMOGLOBIN 8.5 GM/DL (13.0-17.0); LYMPH % 12.3 % (9.0-44.0); LYMPHOCYTE # 1.2 TH/MM3 (1.0-4.8); MEAN CELL VOLUME 85.7 FL (80.0-100.0); MEAN CORPUSCULAR HEMOGLOBIN 28.8 PG (27.0-34.0); MEAN CORPUSCULAR HGB CONC 33.6 % (32.0-36.0); MONOCYTE # 0.8 TH/MM3 (0-0.9); NEUT % 76.1 % (16.0-70.0); PLATELET COUNT 94 TH/MM3 (150-450); RED BLOOD COUNT 2.96 MIL/MM3 (4.50-5.90); RED CELL DISTRIBUTION WIDTH 20.8 % (11.6-17.2)
[2017-11-11 23:12] LABS: ACANTHOCYTES OCC (NORMAL)
[2017-11-11 23:15] LABS: ALBUMIN 3.1 GM/DL (3.4-5.0); ALKALINE PHOSPHATASE 61 U/L (45-117); ALT (GPT) LESS THAN 6 U/L (12-78); AST (GOT) 9 U/L (15-37); BICARBONATE 25.5 MEQ/L (21.0-32.0); BLOOD UREA NITROGEN 23 MG/DL (7-18); CALCIUM 8.3 MG/DL (8.5-10.1); CHLORIDE 93 MEQ/L (98-107); CREATININE 4.67 MG/DL (0.60-1.30); GLOMERULAR FILTRATION RATE 15 ML/MIN (>89); GLUCOSE,RANDOM 95 MG/DL (74-106); MAGNESIUM 1.8 MG/DL (1.5-2.5); PHOSPHORUS 3.2 MG/DL (2.5-4.9); SODIUM (NA) 132 MEQ/L (136-145); TOTAL BILIRUBIN ADULT 1.2 MG/DL (0.2-1.0); TOTAL PROTEIN 7.6 GM/DL (6.4-8.2)
[2017-11-12] VITALS (10 sets, daily range): BP systolic 88–158; BP diastolic 54–79; PULSE 69–87; RESP 16–20; TEMP 97.3–98.2; O2SAT 94–98
[2017-11-12] MEDS: ACETAMINOPHEN 500 MG CPLT PO SCH ×4 (00:54→17:34)
[2017-11-12] MEDS: CHLORHEXIDINE GLUCONATE 2 % 1 PACK (2 CLOTHS) TOP SCH (03:20)
[2017-11-12] MEDS: RESP: ALBUTEROL 2.5 MG/3 ML NEB (PRN) NEB ×3 (04:07→22:33)
[2017-11-12] MEDS: MIDODRINE 5 MG TAB PO SCH ×3 (06:59→17:35)
[2017-11-12] MEDS: CHLORHEXIDINE 0.12% (ORAL KIT) 15 ML CUP MT SCH ×2 (08:00→20:00)
[2017-11-12] MEDS: DOCUSATE SODIUM 50 MG/SENNA 8.6 MG TAB PO SCH ×2 (09:00→21:00)
[2017-11-12] MEDS: CALCIUM ACETATE 667 MG CAP PO SCH ×3 (09:34→17:34)
[2017-11-12] MEDS: PANTOPRAZOLE SOD 40 MG DELAYED RELEASE TAB PO SCH ×2 (09:34→21:51)
[2017-11-12] MEDS: SODIUM CHLORIDE 1 GRAM TAB PO SCH (09:34)
[2017-11-12] MEDS: HEPARIN SODIUM - SQ 10,000 UNITS/ML VIAL SQ SCH ×2 (09:34→21:51)
[2017-11-12] MEDS: DULoxetine HCl DR 60 MG CAP PO SCH (09:34)
[2017-11-12] MEDS: LACTOBACILLUS ACIDOPHILUS TAB PO SCH ×3 (09:34→17:34)
[2017-11-12] MEDS: METOPROLOL TARTRATE 25 MG TAB PO SCH ×2 (09:34→21:50)
[2017-11-12] MEDS: SODIUM CHLORIDE 0.9% FLUSH 10 ML FLUSH IV FLUSH SCH ×2 (09:35→21:52)
[2017-11-12] MEDS: FLUTICASONE PROPIONATE 44 MCG/ACT 10.6 GM INHALER INH SCH ×2 (09:38→21:52)
[2017-11-12 09:49] LABS: AUTOMATED NEUTROPHIL # 7.1 TH/MM3 (1.8-7.7); BASOPHIL # 0.2 TH/MM3 (0-0.2); BASOPHIL % 1.7 % (0.0-2.0); EOSINOPHIL # 0.2 TH/MM3 (0-0.4); EOSINOPHIL % 2.3 % (0.0-4.0); HEMATOCRIT 27.7 % (39.0-51.0); HEMOGLOBIN 9.2 GM/DL (13.0-17.0); LYMPH % 12.8 % (9.0-44.0); LYMPHOCYTE # 1.2 TH/MM3 (1.0-4.8); MEAN CELL VOLUME 86.8 FL (80.0-100.0); MEAN CORPUSCULAR HEMOGLOBIN 28.7 PG (27.0-34.0); MEAN CORPUSCULAR HGB CONC 33.1 % (32.0-36.0); MEAN PLATELET VOLUME 8.3 FL (7.0-11.0); MONOCYTE # 0.8 TH/MM3 (0-0.9); NEUT % 75.2 % (16.0-70.0); PLATELET COUNT 99 TH/MM3 (150-450); RED BLOOD COUNT 3.19 MIL/MM3 (4.50-5.90); RED CELL DISTRIBUTION WIDTH 20.6 % (11.6-17.2); WHITE BLOOD COUNT 9.4 TH/MM3 (4.0-11.0)
--- NOTE | 2017-11-12 09:57 | HHI.PR ---
Subjective Remarks late entry - patient seen on Patient states abdomen is much improved as well as breathing Denies fevers or chills Still c/o cough Objective Vitals Vital Signs Date Time Temp Pulse Resp B/P (MAP) Pulse Ox O2 Delivery O2 Flow Rate FiO2 11/12/17 04:08 94 2.00 11/12/17 04:02 81 11/12/17 03:28 Nasal Cannula 4.00 11/12/17 03:21 97.3 83 20 102/75 (84) 96 11/12/17 00:00 98.2 82 18 101/72 (82) 94 11/12/17 00:00 Nasal Cannula 4.00 11/11/17 23:43 81 11/11/17 20:00 97.5 87 20 97/53 (68) 95 11/11/17 20:00 Nasal Cannula 4.00 11/11/17 19:42 93 11/11/17 16:00 Nasal Cannula 4.00 11/11/17 16:00 109 11/11/17 16:00 98.8 88 20 88/53 (65) 91 11/11/17 12:00 Nasal Cannula 4.00 I/O 11/11/17 11/11/17 11/11/17 11/12/17 11/12/17 11/12/17 07:00 15:00 23:00 07:00 15:00 23:00 Intake Total 720 ml 200 ml Output Total 0 ml 1500 ml Balance 720 ml -1300 ml Intake Oral 720 ml IV Total 200 ml Output Urine Total 0 ml Hemodialysis 1500 ml # Bowel Movements 1 Result Diagram: 11/11/17215011/11/172150 Objective Remarks AAOx3 nad S1S2 RRR, soft 2/6 systolic murmur Abdomen soft, nt, nd Clear lungs BL +1 edema in lower extremities BL Procedures CT-guided chest tube placement on left chest. Date 10/06/17. A/P Problem List: (1) Endocarditis ICD Code: I38 - Endocarditis, valve unspecified Status: Acute Plan: 2D echocardiogram as stated above showed a large tricuspid valve vegetation. Repeat bedside echocardiogram on 10/18 showed a similar size vegetation. Cardiology and CT surgery has followed. D/W Dr. Charles declined surgery due to active IV drug use, multiple medical complications. Discussed with [facility] who agreed with plan of our cardiothoracic surgeon. [facility] administration has denied the patient as well per CM. ID consulted. Continue IV antibiotics as per ID. Currently on IV cefazolin. (2) MSSA bacteremia ICD Code: R78.81 - Bacteremia Plan: Continue IV antibiotics as per ID. Last blood cultures on 10/18 negative 5. 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 Dr Mirna rosadoned performing surgery on patient. (4) IV drug abuse ICD Code: F19.10 - Other psychoactive substance abuse, uncomplicated Plan: The patient states he has not used drugs in 3 months. Advised and reinforced drug cessation. (5) Pleural effusion, bilateral ICD Code: J90 - Pleural effusion, not elsewhere classified Plan: Likely secondary to fluid overload and acute systolic heart failure. The patient hasis being dialyzed (6) Septic embolism ICD Code: I26.90 - Septic pulmonary embolism without acute cor pulmonale Status: Acute Plan: Secondary to tricuspid valve endocarditis. On 4 L nasal cannula. Likely chronic respiratory failure. (7) Hepatitis C ICD Code: B19.20 - Unspecified viral hepatitis C without hepatic coma Plan: Hepatitis C antibody reactive. Hepatitis C viral load 22290. Hepatitis C genotype 1A. Hepatitic ultrasound revealed hepatosplenomegaly. We will refer to GI as an outpatient for treatment. (8) Hepatosplenomegaly ICD Code: R16.2 - Hepatomegaly with splenomegaly, not elsewhere classified Plan: As seen on CT of the abdomen and pelvis with moderate amount of ascites and diffuse anasarca. (9) Sacral decubitus ulcer, stage IV ICD Code: L89.154 - Pressure ulcer of sacral region, stage 4 Status: Acute Plan: wound care consulted - fu recommendations. Recommended plastic surgery consult for debridement. (10) Anasarca ICD Code: R60.1 - Generalized edema Plan: As evidenced by bilateral pleural effusions, ascites and anasarca described on CT abdomen and pelvis. Patient refused abdominal paracentesis. Patient being dialyzed. 11/10 For Diagnostic and therapeutic abdominal paracentesis today. 11/11 SP abdominal paracentesis on 11/10. Ascitic fluid non infectious. (11) Acute systolic heart failure ICD Code: I50.21 - Acute systolic (congestive) heart failure Plan: Echo with EF of 35-40%. Treat fluid overload with dialysis. (12) Moderate protein-calorie malnutrition ICD Code: E44.0 - Moderate protein-calorie malnutrition Status: Acute (13) Hyponatremia ICD Code: E87.1 - Hypo-osmolality and hyponatremia Status: Acute Plan: On fluid restriction - continue. (14) ZEUS (acute kidney injury) ICD Code: N17.9 - Acute kidney failure, unspecified Plan: Most likely due to ATN from sepsis and low blood pressure. HD started on 10/08. Continue dialysis as per nephrology. Dialysis currently on Friday/ and Friday schedule. Avoid nephrotoxins, continue to monitor BUN and creatinine. (15) Anemia ICD Code: D64.9 - Anemia, unspecified Plan: On ferrous sulfate and Epogen as per nephrology. Anemia likely secondary to chronic kidney disease. 11/09 hemoglobin dropped from 8.9-7.7. No obvious bleeding. Continue to monitor hemoglobin and hematocrit. Transfuse as needed for hemoglobin less than 7 or symptomatic anemia. (16) Debility ICD Code: R53.81 - Other malaise Status: Acute Plan: Continue PT and OT. Patient will need to go to rehab upon discharge. (17) Transaminitis ICD Code: R74.0 - Nonspecific elevation of levels of transaminase and lactic acid dehydrogenase [LDH] Status: Resolved Plan: Now resolved. Continue to monitor liver function tests. Transaminitis likely secondary to sepsis and hepatitis C. 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 This is a low pattern and the patient does not have any other symptoms consistent with rheumatic disease. Will not pursue any further testing. The patient will need to follow-up as an outpatient by his primary care physician. (20) Hypotension ICD Code: I95.9 - Hypotension, unspecified Plan: Unclear etiology of hypotension. However the patient is on hemodialysis and is hypoalbuminemic, also patient is on several medications to control pain including fentanyl patch, Roxicodone, gabapentin. All of these factors could be contributing to the patient's hypotension. Upon review of records the patient has been hypotensive for some time now. Patient's hypotension started on 10/31/17 and blood pressure occasionally goes up , however it is most consistently in the high 80s to low 90s systolic. Start midodrine for blood pressure support. 11/10 BP better but bp still lowin the 90's systolic. Increase Midodrine dose to 10 mg po tid. 11/11 BP still borderline low, continue midodrine. Patient asymptomatic. Assessment and Plan DVT prophylaxis: SCDs, heparin subcutaneously. Discharge Planning Continue to monitor the medical floor. Pending clinical improvement. Problem Qualifiers (1) Endocarditis: (2) Hepatitis C: (3) Anemia: (4) Hypotension: Qualified Codes: I95.9 - Hypotension, unspecified Nathan Krishnan MD Nov 12, 2017 09:57
[2017-11-12 10:19] LABS: ALBUMIN 2.9 GM/DL (3.4-5.0); BICARBONATE 25.6 MEQ/L (21.0-32.0); BLOOD UREA NITROGEN 25 MG/DL (7-18); CALCIUM 8.3 MG/DL (8.5-10.1); CHLORIDE 92 MEQ/L (98-107); CREATININE 4.87 MG/DL (0.60-1.30); GLOMERULAR FILTRATION RATE 15 ML/MIN (>89); GLUCOSE,RANDOM 73 MG/DL (74-106); SODIUM (NA) 131 MEQ/L (136-145)
[2017-11-12 10:21] LABS: ALT (GPT) LESS THAN 6 U/L (12-78); AST (GOT) 7 U/L (15-37)
[2017-11-12 10:23] LABS: ALKALINE PHOSPHATASE 60 U/L (45-117); TOTAL BILIRUBIN ADULT 1.2 MG/DL (0.2-1.0); TOTAL PROTEIN 7.7 GM/DL (6.4-8.2)
[2017-11-12 10:53] LABS: ACANTHOCYTES OCC (NORMAL)
--- NOTE | 2017-11-12 11:19 | HHI.NPPN ---
Subjective Complaints: Shortness of Breath Renal Failure: Acute History of Present Illness Patient is 27-year-old male who reported to ER with body aches, 7 days of diarrhea with development fever. Past medical history of IV drug use. Patient is sedated and ventilated FiO2 at 40 %. Nephrology is consulted for ZEUS and fluid over load status. Patients creatinine is 3.02 and GFR 25ml/min. Patient is UOP at 800cc for last 24 hours. Weight has increased by over 10 kg since admission. IVF's have been stopped and lasix has been given. Patient has endocarditis with large tricuspid valve vegetation, and pulmonic vegetation. Noted to have bacteremia with hypotension with SBP in the 90's. Additional Remarks Patient is resting comfortably. No complaints. (Venus Barrett) Review of Systems Respiratory Lungs: SOB Respiratory Remarks mild (Venus Barrett) Cardiovascular Cardiac Remarks denies CP (Venus Barrett) Psych Psych: Depression, Anxiety (Venus Barrett) Objective Data Data Vital Signs Date Time Temp Pulse Resp B/P (MAP) Pulse Ox O2 Delivery O2 Flow Rate FiO2 11/12/17 09:30 Nasal Cannula 4.00 11/12/17 08:05 97.6 87 17 95/59 (71) 97 11/12/17 04:08 94 2.00 11/12/17 04:02 81 11/12/17 03:28 Nasal Cannula 4.00 11/12/17 03:21 97.3 83 20 102/75 (84) 96 11/12/17 00:00 98.2 82 18 101/72 (82) 94 11/12/17 00:00 Nasal Cannula 4.00 11/11/17 23:43 81 11/11/17 20:00 97.5 87 20 97/53 (68) 95 11/11/17 20:00 Nasal Cannula 4.00 11/11/17 19:42 93 11/11/17 16:00 Nasal Cannula 4.00 11/11/17 16:00 109 11/11/17 16:00 98.8 88 20 88/53 (65) 91 11/11/17 12:00 Nasal Cannula 4.00 (Venus Barrett) -: 11/12/17 0703 11/12/17 0703 Tubes & Lines: Vas-Cath (Venus Barrett. ELECTRIC METER REPAIRER) Physical Exam General Appearance: No Acute Distress, Comfortable (Venus BarrettP) Eyes Eye Exam: Pupils Equal (Venus Barrett. ELECTRIC METER REPAIRER) Pulmonary Resp Exam: Decreased Bases, Diminished Breath Sounds (Venus Barrett. ELECTRIC METER REPAIRER) Cardiology CV Exam: Tachycardia (Venus Barrett ELECTRIC METER REPAIRER) Gastrointestinal/Abdomen GI Exam: Soft, Non-Tender, Bowel Sounds Present, Distended (Venus Barrett. ELECTRIC METER REPAIRER) Integumentary Skin Exam: Clear, Warm (Venus BarrettP) Extremeties Extremities Exam: Moderate Edema (Venus Barrett. ELECTRIC METER REPAIRER) Neurologic Neuro Exam: Awake (Venus Barrett ELECTRIC METER REPAIRER) Psychiatric Psych Exam: Appropriate Responses (Venus BarrettP) Assessment/Plan Assessment Summary: ZEUS/Acute Renal Failure Electrolyte Assessment: Hyponatremia Problem List: (1) ZEUS (acute kidney injury) ICD Codes: N17.9 - Acute kidney failure, unspecified Plan: ZEUS most likely ATN from sepsis and low blood pressure. Other differential will be ATN, Acute interstitial nephritis, and Post infectious GN,unlikely. HD started on 10/08 Plan Dialysis currently T/ through vas cath Continue Epogen with dialysis Continue phoslo Follow the urine out put and BMP. Hypotension on midodrine 10 mg TID and metoprolol decreased Dialysis tomorrow. (2) Sepsis ICD Codes: A41.9 - Sepsis, unspecified organism Status: Acute Plan: Antibiotics per ID (3) Endocarditis ICD Codes: I38 - Endocarditis, valve unspecified Status: Acute Plan: antibiotics renal dosing (Venus Barrett. ELECTRIC METER REPAIRER) Problem List: (1) ZEUS (acute kidney injury) ICD Codes: N17.9 - Acute kidney failure, unspecified Plan: ZEUS most likely ATN from sepsis and low blood pressure. Other differential will be ATN, Acute interstitial nephritis, and Post infectious GN,unlikely. HD started on 10/08 Plan Dialysis currently T// through vas cath Continue Epogen with dialysis Continue phoslo Follow the urine out put and BMP. Hypotension on midodrine 10 mg TID and metoprolol decreased Dialysis tomorrow. Patient seen and examined, agree with above. No improvement in the renal function, HD in AM. (2) Sepsis ICD Codes: A41.9 - Sepsis, unspecified organism Status: Acute Plan: Antibiotics per ID (3) Endocarditis ICD Codes: I38 - Endocarditis, valve unspecified Status: Acute Plan: antibiotics renal dosing (Darek Tapia MD) Problem Qualifiers (1) Sepsis: Qualified Codes: A41.9 - Sepsis, unspecified organism (2) Endocarditis: Venus Barrett Nov 12, 2017 11:19 Darek Tapia MD Nov 12, 2017 22:56
--- NOTE | 2017-11-12 12:53 | HHI.IDPN ---
Subjective Subjective Remarks ID COVERAGE is a 27 y/o CM with remote history of IV drug abuse, states he last used heroin 2 months ago, presents for evaluation of body aches, 7 days of diarrhea with development of subjective fever yesterday. Patient denies any nausea or vomiting. He denies any chest pain. This has developed within the last 24 hours. Patient does have a cough with clear sputum. Denies any prior history of endocarditis. Denies any abdominal pain. Does report some left back pain, worse while lying flat. He is well reports generalized weakness. Patient met criteria for sepsis on admission. Flu antigen negative. CXR with bilateral infiltrates. performed a bedside 2D ECHO and verbally reported a large ~4.5 cm vegetation on TV. CXR suspicious for septic emboli. Blood cultures drawn but it appears patient has received augmentin at some point and cultures may possibly be negative. ID is following for evaluation and M'ment of Severe Sepsis and Endocarditis. Notes reviewed Peritoneal fluid C/S negative so far HD done yesterday Temps ok Mild SOB BP ok No rash No diarrhea Antibiotics Ancef Current Medications Medications (Trade) Dose Ordered Sig/Willem Route Start Time Stop Time Status Last Admin (NS Flush) 2 ml UNSCH PRN IV FLUSH 10/03/17 21:15 10/15/17 20:58 (NS Flush) 2 ml BID IV FLUSH 10/04/17 09:00 11/10/17 09:58 (Zofran Inj) 4 mg Q6H PRN IV PUSH 10/03/17 21:15 11/05/17 12:44 (Restoril) 15 mg HS PRN PO 10/03/17 21:15 10/27/17 20:29 Miscellaneous Information 1 Q361D XX 10/03/17 21:15 (Chlorhexidine 2% Cloth) Taper DAILY@04 TOP 10/04/17 04:00 09/30/18 03:59 10/26/17 21:40 (Chlorhexidine 2% Cloth) 3 pack UNSCH PRN TOP 10/03/17 21:15 (Renita-Colace) 1 tab BID PO 10/04/17 09:00 11/09/17 09:15 (Senokot) 17.2 mg Q12H PRN PO 10/03/17 21:15 (Dulcolax Supp) 10 mg DAILY PRN RECTAL 2/9/18 21:15 10/11/17 17:08 (Lactulose Liq) 30 ml DAILY PRN PO 10/03/17 21:15 10/11/17 17:08 (Flovent Hfa 44 Mcg Inh) 2 puff BID INH 10/04/17 09:00 11/10/17 09:58 (Peridex 0.12% Liq) 15 ml BID@08,20 MT 10/04/17 20:00 11/10/17 10:13 Sodium Chloride 1,000 ml @ 0 mls/hr Q0M PRN OTHER 10/08/17 10:33 10/25/17 10:39 (Heparin Inj) 8,000 units UNSCH PRN IV FLUSH 10/08/17 10:45 Sodium Chloride 1,000 ml @ 200 mls/hr Q5H PRN IV 10/08/17 11:15 11/08/17 09:57 Sodium Chloride 1,000 ml @ 0 mls/hr Q0M PRN OTHER 10/08/17 11:15 (Mannitol Inj) 12.5 gm UNSCH PRN IV 10/08/17 11:15 11/06/17 14:30 Albumin Human 100 ml @ 60 mls/hr UNSCH PRN IV 10/08/17 11:30 11/06/17 14:30 (NS Flush) 5 ml UNSCH PRN IV FLUSH 10/08/17 11:15 10/25/17 10:40 (Heparin Inj) UNSCH PRN .XX 10/08/17 11:15 11/08/17 09:57 (Gentamicin Inj) 20 mg UNSCH PRN OTHER 10/08/17 11:15 11/08/17 09:58 (Zofran Inj) 4 mg UNSCH PRN IV PUSH 10/08/17 11:15 (Nitrostat Sl) 0.4 mg UNSCH PRN SL 10/08/17 11:30 (Catapres) 0.1 mg UNSCH PRN PO 10/08/17 11:30 (Epogen Inj) 10,000 units UNSCH PRN IV PUSH 10/08/17 11:30 11/08/17 09:58 (Gelfoam 12 Mm/7 Mm Top) 1 foam UNSCH PRN TOP 10/08/17 11:30 (Lactinex) 1 tab TID PO 10/17/17 13:00 11/10/17 10:10 (Duragesic 100 Mcg Patch.72 Hr) 1 patch Q3D T-DERMAL 10/18/17 12:00 11/08/17 13:18 Miscellaneous Information 1 Q3D T-DERMAL 10/21/17 12:00 11/08/17 13:18 (Santyl Oint) 1 applic DAILY TOPICAL 10/20/17 16:00 11/10/17 10:22 (Albuterol Neb) 2.5 mg Q2HR NEB PRN NEB 10/21/17 13:30 11/10/17 10:35 (Protonix) 40 mg Q12HR PO 10/21/17 21:00 11/10/17 09:57 (Heparin Inj) 5,000 units Q12HR SQ 10/21/17 21:00 11/09/17 22:27 (Phoslo) 667 mg TID PO 10/23/17 13:00 11/10/17 09:57 Cefazolin Sodium 1000 mg/Sodium Chloride 100 ml @ 200 mls/hr Q12H IV 10/24/17 03:00 11/10/17 02:02 (Haldol Inj) 5 mg Q4H PRN IV PUSH 10/23/17 23:30 10/26/17 23:39 (Lopressor) 25 mg Q8HR PO 10/25/17 22:00 11/03/17 14:24 (Sodium Chloride) 1 gm DAILY PO 10/26/17 09:00 11/10/17 09:57 (Ferrous Sulfate) 325 mg BID@12,17 PO 10/27/17 12:00 11/09/17 17:25 (Tylenol) 500 mg Q6HR PO 10/31/17 00:00 11/10/17 06:09 (Roxicodone) 5 mg Q6H PRN PO 10/30/17 20:00 11/10/17 10:10 (Zanaflex) 2 mg Q8HR PO 10/30/17 22:00 11/10/17 06:09 (Atarax) 50 mg Q8H PRN PO 10/31/17 17:15 11/10/17 10:33 (Cymbalta Dr) 60 mg DAILY PO 11/03/17 12:00 11/10/17 09:57 (Neurontin) 300 mg Q24H PO 11/06/17 13:00 11/09/17 11:43 (Narcan Inj) 0.4 mg Q2M PRN IV PUSH 11/08/17 20:15 11/08/17 20:16 (Proamatine) 5 mg TID@07,12,17 PO 11/09/17 17:00 11/10/17 06:09 Albumin Human 0 ml @ 60 mls/hr ONCE ONCE IV 11/10/17 13:00 11/10/17 13:01 UNV Lines Line sites with no e.o infection Past Medical History Asthma HCV Past Surgical History No surgical history per records. Allergies: Coded Allergies: erythromycin base (Verified Allergy, Severe, Nausea/Vomiting, 10/03/17) raspberry (Unverified Allergy, Mild, 10/03/17) Objective . Vital Signs Date Time Temp Pulse Resp B/P (MAP) Pulse Ox O2 Delivery O2 Flow Rate FiO2 11/12/17 11:22 94 Nasal Cannula 2.00 11/12/17 09:30 Nasal Cannula 4.00 11/12/17 08:05 97.6 87 17 95/59 (71) 97 11/12/17 04:08 94 2.00 11/12/17 04:02 81 11/12/17 03:28 Nasal Cannula 4.00 11/12/17 03:21 97.3 83 20 102/75 (84) 96 11/12/17 00:00 98.2 82 18 101/72 (82) 94 11/12/17 00:00 Nasal Cannula 4.00 11/11/17 23:43 81 11/11/17 20:00 97.5 87 20 97/53 (68) 95 11/11/17 20:00 Nasal Cannula 4.00 11/11/17 19:42 93 11/11/17 16:00 Nasal Cannula 4.00 11/11/17 16:00 109 11/11/17 16:00 98.8 88 20 88/53 (65) 91 . Laboratory Tests Test 11/10/17 17:37 11/11/17 21:51 11/12/17 07:03 White Blood Count 11.3 TH/MM3 10.0 TH/MM3 9.4 TH/MM3 Red Blood Count 2.66 MIL/MM3 2.96 MIL/MM3 3.19 MIL/MM3 Hemoglobin 7.7 GM/DL 8.5 GM/DL 9.2 GM/DL Hematocrit 22.9 % 25.4 % 27.7 % Mean Corpuscular Volume 86.1 FL 85.7 FL 86.8 FL Mean Corpuscular Hemoglobin 28.8 PG 28.8 PG 28.7 PG Mean Corpuscular Hemoglobin Concent 33.4 % 33.6 % 33.1 % Red Cell Distribution Width 20.2 % 20.8 % 20.6 % Platelet Count 100 TH/MM3 94 TH/MM3 99 TH/MM3 Mean Platelet Volume 7.8 FL 8.0 FL 8.3 FL Neutrophils (%) (Auto) 76.1 % 75.2 % Lymphocytes (%) (Auto) 12.3 % 12.8 % Monocytes (%) (Auto) 8.0 % 8.0 % Eosinophils (%) (Auto) 2.2 % 2.3 % Basophils (%) (Auto) 1.4 % 1.7 % Neutrophils # (Auto) 7.6 TH/MM3 7.1 TH/MM3 Lymphocytes # (Auto) 1.2 TH/MM3 1.2 TH/MM3 Monocytes # (Auto) 0.8 TH/MM3 0.8 TH/MM3 Eosinophils # (Auto) 0.2 TH/MM3 0.2 TH/MM3 Basophils # (Auto) 0.1 TH/MM3 0.2 TH/MM3 CBC Comment AUTO DIFF AUTO DIFF Differential Comment AUTO DIFF CONFIRMED AUTO DIFF CONFIRMED Platelet Estimate LOW Platelet Morphology Comment NORMAL Polychromasia 2.0 % Basophilic Stippling FAINT Acanthocytes OCC OCC Laboratory Tests Test 11/11/17 21:51 11/12/17 07:03 Blood Urea Nitrogen 23 MG/DL 25 MG/DL Creatinine 4.67 MG/DL 4.87 MG/DL Random Glucose 95 MG/DL 73 MG/DL Total Protein 7.6 GM/DL 7.7 GM/DL Albumin 3.1 GM/DL 2.9 GM/DL Calcium Level 8.3 MG/DL 8.3 MG/DL Phosphorus Level 3.2 MG/DL Magnesium Level 1.8 MG/DL Alkaline Phosphatase 61 U/L 60 U/L Aspartate Amino Transf (AST/SGOT) 9 U/L 7 U/L Alanine Aminotransferase (ALT/SGPT) LESS THAN 6 U/L LESS THAN 6 U/L Total Bilirubin 1.2 MG/DL 1.2 MG/DL Sodium Level 132 MEQ/L 131 MEQ/L Potassium Level 3.6 MEQ/L 3.6 MEQ/L Chloride Level 93 MEQ/L 92 MEQ/L Carbon Dioxide Level 25.5 MEQ/L 25.6 MEQ/L Anion Gap 14 MEQ/L 13 MEQ/L Estimat Glomerular Filtration Rate 15 ML/MIN 15 ML/MIN Microbiology Date/Time Source Procedure Growth Status 11/10/17 11:45 Fluid Peritoneal Fluid Gram Stain - Final Resulted 11/10/17 11:45 Fluid Peritoneal Fluid Body Fluid Culture - Preliminary NO GROWTH IN 48 HOURS. Resulted Imaging Chest X-Ray 10/30/17 0000 Signed Impressions: Service Date/Time: October 17:04 - CONCLUSION: Increasing bilateral scattered pulmonary infiltrates compared to the prior study. Victorino Vang MD Liver Ultrasound 10/24/17 0000 Signed Impressions: Service Date/Time: Tuesday, October 24, 2017 16:43 - CONCLUSION: Hepatosplenomegaly with ascites. Echogenic kidney Madi Mccartney MD Abdomen/Pelvis CT 10/24/17 0000 Signed Impressions: Service Date/Time: Tuesday, October 24, 2017 21:37 - CONCLUSION: 1. Hepatosplenomegaly. 2. Moderate amount of ascites. 3. Diffuse anasarca. 4. Bibasilar pleural effusions and scattered infiltrates. Khoi Padilla MD Tunnelled Chest Tube Removal 10/20/17 0000 Signed Impressions: Service Date/Time: Friday, October 20, 2017 00:00 - CONCLUSION: Uncomplicated chest tube removal. Madi Mccartney MD Chest CT 10/14/17 0000 Signed Impressions: Service Date/Time: Saturday, October 14, 2017 00:26 - CONCLUSION: 1. Bilateral scattered pulmonary nodules are again noted. Several of the right nodules are now cavitary and likely represent septic emboli given the history of IV drug abuse. 2. Interval placement of bilateral chest tubes with small pleural effusions noted. 3. Dense consolidation remains in the posterior lower lobes. Jorge Jang MD Upper Extremity Ultrasound 10/13/17 0000 Signed Impressions: Service Date/Time: Friday, October 13, 2017 11:25 - CONCLUSION: Normal examination. Christian Kaur MD Abdomen X-Ray 2/16/18 0000 Signed Impressions: Service Date/Time: Tuesday, October 10, 2017 16:46 - CONCLUSION: Negative for free air or obstruction. Rahul Yarbrough MD FACR Chest Tube Insertion 10/06/17 0000 Signed Impressions: Service Date/Time: Friday, October 06, 2017 15:37 - CONCLUSION: Uncomplicated chest tube placement as above. Emerson Hui MD Physical Exam GENERAL: Awake, and following commands looks comfortable at rest SKIN: No generalized rash. Cool and dry. Multiple tattoos. HEAD: Atraumatic. Normocephalic. No temporal or scalp tenderness. EYES: Pupils equal round and reactive. Extraocular motions intact. No petechia, no hemorrhage ENT: Moist oral mucosa, no nasal drainage NECK: Trachea midline. Supple, nontender, no meningeal signs. CARDIOVASCULAR: Has systolic murmur RESPIRATORY: Decreased air entry bilaterally bases. GASTROINTESTINAL: Abdomen soft, not tender, (+) BS, distended. MUSCULOSKELETAL: Extremities without clubbing, cyanosis. (+) bilateral pedal edema. No embolic lesion seen. NEUROLOGICAL: Awake, follows commands Psych cooperative IV line sites with no e.o infection. 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 MR. Ascites: likely from 3rd spacing. Bilateral pleural effusions: left side appears loculated possible empyema. Pneumonia: septic emboli, aspiration pneumonia. - CT chest 11/03 improving Respiratory failure, self extubated 10/17 IVDA: heroin, cocaine and methamphetamine. Acute renal failure: Sepsis, meds,contrast. - on HD Low platelets: ? meds, sepsis. HIT. Ascites: 3rd spacing vs infection related. Recs: Continue Ancef IV (for MSSA TV endocarditis) Sputum Cx with normal resp heri. 2D ECHO moderate to severe TR. Follow peritoneal fluid analysis - tap should help some with his respiratory status Monitor progress I Will be off November 13- Other ID MD covering in my absence Dr Chance Macias back 11/17 Chelsy Kramer MD Nov 12, 2017 12:53
[2017-11-12] MEDS: GABAPENTIN 100 MG CAP PO SCH (13:33)
[2017-11-12] MEDS: FERROUS SULFATE 325 MG (65 MG ELEMENTAL IRON) TAB PO SCH ×2 (13:34→17:35)
[2017-11-12] MEDS: COLLAGENASE OINT 30 GM TUBE TOPICAL SCH (13:37)
[2017-11-12] MEDS: SODIUM HYPOCHLORITE 0.125% 500 ML BTL TOPICAL SCH (13:37)
--- NOTE | 2017-11-12 16:58 | HHI.PR ---
Subjective Remarks Deferred entry, the patient was seen earlier at 11:05 AM. The patient states he feels better, abdominal pain, respiratory status has improved. Patient is a febrile Objective Vitals Vital Signs Date Time Temp Pulse Resp B/P (MAP) Pulse Ox O2 Delivery O2 Flow Rate FiO2 11/12/17 12:05 97.7 69 18 158/79 (105) 98 11/12/17 11:22 94 Nasal Cannula 2.00 11/12/17 09:30 Nasal Cannula 4.00 11/12/17 08:05 97.6 87 17 95/59 (71) 97 11/12/17 04:08 94 2.00 11/12/17 04:02 81 11/12/17 03:28 Nasal Cannula 4.00 11/12/17 03:21 97.3 83 20 102/75 (84) 96 11/12/17 00:00 98.2 82 18 101/72 (82) 94 11/12/17 00:00 Nasal Cannula 4.00 11/11/17 23:43 81 11/11/17 20:00 97.5 87 20 97/53 (68) 95 11/11/17 20:00 Nasal Cannula 4.00 11/11/17 19:42 93 I/O 11/11/17 11/11/17 11/11/17 11/12/17 11/12/17 11/12/17 06:59 14:59 22:59 06:59 14:59 22:59 Intake Total 720 ml 200 ml Output Total 0 ml 1500 ml Balance 720 ml -1300 ml Intake Oral 720 ml IV Total 200 ml Output Urine Total 0 ml Hemodialysis 1500 ml # Bowel Movements 1 Result Diagram: 11/12/17 0703 11/12/17 0703 Imaging Last Impressions Cyst Biopsy Asp-Paracentesis US 11/10/17 0000 Signed Impressions: Service Date/Time: Friday, November 10, 2017 10:52 - CONCLUSION: Uncomplicated ultrasound guided paracentesis. Madi Mccartney MD Abdomen Ultrasound 11/07/17 0000 Signed Impressions: Service Date/Time: Tuesday, November 07, 2017 11:36 - CONCLUSION: Moderate amount of ascites confirmed for subsequent paracentesis but the patient refused the procedure and therefore was sent back to the floor. Khoi Padilla MD Chest CT 11/03/17 0000 Signed Impressions: Service Date/Time: Friday, November 03, 2017 10:16 - CONCLUSION: Scattered areas of consolidation and scattered nodular foci identified, a overall improved from the previous study however the consolidation in the right middle lobe is increased and is a change from previous studies. Chadwick Diaz MD Chest X-Ray 10/30/17 0000 Signed Impressions: Service Date/Time: October 17:04 - CONCLUSION: Increasing bilateral scattered pulmonary infiltrates compared to the prior study. Victorino Vang MD Liver Ultrasound 10/24/17 0000 Signed Impressions: Service Date/Time: Tuesday, October 24, 2017 16:43 - CONCLUSION: Hepatosplenomegaly with ascites. Echogenic kidney Madi Mccartney MD Abdomen/Pelvis CT 10/24/17 0000 Signed Impressions: Service Date/Time: Tuesday, October 24, 2017 21:37 - CONCLUSION: 1. Hepatosplenomegaly. 2. Moderate amount of ascites. 3. Diffuse anasarca. 4. Bibasilar pleural effusions and scattered infiltrates. Khoi Padilla MD Tunnelled Chest Tube Removal 10/20/17 0000 Signed Impressions: Service Date/Time: Friday, October 20, 2017 00:00 - CONCLUSION: Uncomplicated chest tube removal. Madi Mccartney MD Upper Extremity Ultrasound 10/13/17 0000 Signed Impressions: Service Date/Time: Friday, October 13, 2017 11:25 - CONCLUSION: Normal examination. Christian Kaur MD Abdomen X-Ray 10/10/17 0000 Signed Impressions: Service Date/Time: Tuesday, October 10, 2017 16:46 - CONCLUSION: Negative for free air or obstruction. Rahul Yarbrough MD FACR Chest Tube Insertion 10/06/17 0000 Signed Impressions: Service Date/Time: Friday, October 06, 2017 15:37 - CONCLUSION: Uncomplicated chest tube placement as above. Emerson Hui MD Objective Remarks AAOx3 nad S1S2 RRR, soft 2/6 systolic murmur Abdomen soft, nt, nd Clear lungs BL +1 edema in lower extremities BL Procedures CT-guided chest tube placement on left chest. Date 10/06/17. Medications and IVs Current Medications Medications (Trade) Dose Ordered Sig/Willem Route Start Time Stop Time Status Last Admin (NS Flush) 2 ml UNSCH PRN IV FLUSH 10/03/17 21:15 10/15/17 20:58 (NS Flush) 2 ml BID IV FLUSH 10/04/17 09:00 11/12/17 09:35 (Zofran Inj) 4 mg Q6H PRN IV PUSH 10/03/17 21:15 11/11/17 11:45 (Restoril) 15 mg HS PRN PO 10/03/17 21:15 11/11/17 01:02 Miscellaneous Information 1 Q361D XX 10/03/17 21:15 (Chlorhexidine 2% Cloth) 3 pack Taper DAILY@04 TOP 10/04/17 04:00 09/30/18 03:59 10/26/17 21:40 (Chlorhexidine 2% Cloth) 3 pack UNSCH PRN TOP 10/03/17 21:15 (Renita-Colace) 1 tab BID PO 10/04/17 09:00 11/11/17 20:52 (Senokot) 17.2 mg Q12H PRN PO 10/03/17 21:15 (Dulcolax Supp) 10 mg DAILY PRN RECTAL 10/03/17 21:15 10/11/17 17:08 (Lactulose Liq) 30 ml DAILY PRN PO 10/03/17 21:15 10/11/17 17:08 (Flovent Hfa 44 Mcg Inh) 2 puff BID INH 10/04/17 09:00 11/12/17 09:38 (Peridex 0.12% Liq) 15 ml BID@08,20 MT 10/04/17 20:00 11/10/17 10:13 Sodium Chloride 1,000 ml @ 0 mls/hr Q0M PRN OTHER 10/08/17 10:33 10/25/17 10:39 (Heparin Inj) 8,000 units UNSCH PRN IV FLUSH 10/08/17 10:45 Sodium Chloride 1,000 ml @ 200 mls/hr Q5H PRN IV 10/08/17 11:15 11/08/17 09:57 Sodium Chloride 1,000 ml @ 0 mls/hr Q0M PRN OTHER 10/08/17 11:15 (Mannitol Inj) 12.5 gm UNSCH PRN IV 10/08/17 11:15 11/11/17 10:04 Albumin Human 100 ml @ 60 mls/hr UNSCH PRN IV 10/08/17 11:30 11/11/17 09:54 (NS Flush) 5 ml UNSCH PRN IV FLUSH 10/08/17 11:15 10/25/17 10:40 (Heparin Inj) UNSCH PRN .XX 10/08/17 11:15 11/08/17 09:57 (Gentamicin Inj) 20 mg UNSCH PRN OTHER 10/08/17 11:15 11/08/17 09:58 (Zofran Inj) 4 mg UNSCH PRN IV PUSH 10/08/17 11:15 (Nitrostat Sl) 0.4 mg UNSCH PRN SL 10/08/17 11:30 (Catapres) 0.1 mg UNSCH PRN PO 10/08/17 11:30 (Epogen Inj) 10,000 units UNSCH PRN IV PUSH 10/08/17 11:30 11/11/17 11:59 (Gelfoam 12 Mm/7 Mm Top) 1 foam UNSCH PRN TOP 10/08/17 11:30 (Lactinex) 1 tab TID PO 10/17/17 13:00 11/12/17 13:33 (Duragesic 100 Mcg Patch.72 Hr) 1 patch Q3D T-DERMAL 10/18/17 12:00 11/08/17 13:18 Miscellaneous Information 1 Q3D T-DERMAL 10/21/17 12:00 11/08/17 13:18 (Albuterol Neb) 2.5 mg Q2HR NEB PRN NEB 10/21/17 13:30 11/12/17 11:22 (Protonix) 40 mg Q12HR PO 10/21/17 21:00 11/12/17 09:34 (Heparin Inj) 5,000 units Q12HR SQ 10/21/17 21:00 11/12/17 09:34 (Phoslo) 667 mg TID PO 10/23/17 13:00 11/12/17 13:34 Cefazolin Sodium 1000 mg/Sodium Chloride 100 ml @ 200 mls/hr Q12H IV 10/24/17 03:00 11/12/17 15:47 (Haldol Inj) 5 mg Q4H PRN IV PUSH 10/23/17 23:30 10/26/17 23:39 (Sodium Chloride) 1 gm DAILY PO 10/26/17 09:00 11/12/17 09:34 (Ferrous Sulfate) 325 mg BID@12,17 PO 10/27/17 12:00 11/12/17 13:34 (Tylenol) 500 mg Q6HR PO 10/31/17 00:00 11/12/17 13:33 (Roxicodone) 5 mg Q6H PRN PO 10/30/17 20:00 11/12/17 15:47 (Zanaflex) 2 mg Q8HR PO 10/30/17 22:00 11/12/17 13:34 (Atarax) 50 mg Q8H PRN PO 10/31/17 17:15 11/10/17 10:33 (Cymbalta Dr) 60 mg DAILY PO 11/03/17 12:00 11/12/17 09:34 (Neurontin) 300 mg Q24H PO 11/06/17 13:00 11/12/17 13:33 (Narcan Inj) 0.4 mg Q2M PRN IV PUSH 11/08/17 20:15 11/08/17 20:16 (Santyl Oint) 1 applic DAILY TOPICAL 11/11/17 09:00 11/12/17 13:37 (Dakin'S 0.125% Soln) 500 ml DAILY TOPICAL 11/11/17 09:00 11/12/17 13:37 (Proamatine) 10 mg TID@07,12,17 PO 11/11/17 12:00 11/12/17 13:34 (Lopressor) 12.5 mg BID PO 11/11/17 21:00 11/12/17 09:34 (Pill Splitter) 1 ea UNSCH PRN OTHER 11/11/17 19:00 A/P Problem List: (1) Endocarditis ICD Code: I38 - Endocarditis, valve unspecified Status: Acute Plan: 2D echocardiogram as stated above showed a large tricuspid valve vegetation. Repeat bedside echocardiogram on 10/18 showed a similar size vegetation. Cardiology and CT surgery has followed. D/W Dr. Charles declined surgery due to active IV drug use, multiple medical complications. Discussed with [facility] who agreed with plan of our cardiothoracic surgeon. [facility] administration has denied the patient as well per CM. ID consulted. Continue IV antibiotics as per ID. Currently on IV cefazolin. (2) MSSA bacteremia ICD Code: R78.81 - Bacteremia Plan: Continue IV antibiotics as per ID. Last blood cultures on 10/18 negative 5. 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 Dr Mirna rosadoned performing surgery on patient. (4) IV drug abuse ICD Code: F19.10 - Other psychoactive substance abuse, uncomplicated Plan: The patient states he has not used drugs in 3 months. Advised and reinforced drug cessation. (5) Pleural effusion, bilateral ICD Code: J90 - Pleural effusion, not elsewhere classified Plan: Likely secondary to fluid overload and acute systolic heart failure. The patient hasis being dialyzed 11/12 repeat chest x-ray. (6) Septic embolism ICD Code: I26.90 - Septic pulmonary embolism without acute cor pulmonale Status: Acute Plan: Secondary to tricuspid valve endocarditis. 11/12 previously on 4 L nasal cannula, respiratory status improving with patient on 2 L nasal cannula. (7) Hepatitis C ICD Code: B19.20 - Unspecified viral hepatitis C without hepatic coma Plan: Hepatitis C antibody reactive. Hepatitis C viral load 63342. Hepatitis C genotype 1A. Hepatitic ultrasound revealed hepatosplenomegaly. We will refer to GI as an outpatient for treatment. (8) Hepatosplenomegaly ICD Code: R16.2 - Hepatomegaly with splenomegaly, not elsewhere classified Plan: As seen on CT of the abdomen and pelvis with moderate amount of ascites and diffuse anasarca. (9) Sacral decubitus ulcer, stage IV ICD Code: L89.154 - Pressure ulcer of sacral region, stage 4 Status: Acute Plan: wound care consulted - fu recommendations. Recommended plastic surgery consult for debridement. 11/12 consult plastic surgery. Continue wound care. (10) Anasarca ICD Code: R60.1 - Generalized edema Plan: As evidenced by bilateral pleural effusions, ascites and anasarca described on CT abdomen and pelvis. Patient refused abdominal paracentesis. Patient being dialyzed. 11/10 For Diagnostic and therapeutic abdominal paracentesis today. 11/11 SP abdominal paracentesis on 11/10. Ascitic fluid non infectious. (11) Acute systolic heart failure ICD Code: I50.21 - Acute systolic (congestive) heart failure Plan: Echo with EF of 35-40%. Treat fluid overload with dialysis. (12) Moderate protein-calorie malnutrition ICD Code: E44.0 - Moderate protein-calorie malnutrition Status: Acute Plan: Dietitian consulted, recommends liberalize diet to allow more fluid options and hopefully increase p.o. intake. Nepro twice daily with encouragement. (13) Hyponatremia ICD Code: E87.1 - Hypo-osmolality and hyponatremia Status: Acute Plan: On fluid restriction - continue. Sodium stable at 131. (14) ZEUS (acute kidney injury) ICD Code: N17.9 - Acute kidney failure, unspecified Plan: Most likely due to ATN from sepsis and low blood pressure. HD started on 10/08. Continue dialysis as per nephrology. Dialysis currently on Friday/ and Friday schedule. Avoid nephrotoxins, continue to monitor BUN and creatinine. (15) Anemia ICD Code: D64.9 - Anemia, unspecified Plan: On ferrous sulfate and Epogen as per nephrology. Anemia likely secondary to chronic kidney disease. 11/09 hemoglobin dropped from 8.9-7.7. No obvious bleeding. Continue to monitor hemoglobin and hematocrit. Transfuse as needed for hemoglobin less than 7 or symptomatic anemia. 11/12 continue Epogen with dialysis as per nephrology. Hemoglobin trending up now 9.5. (16) Debility ICD Code: R53.81 - Other malaise Status: Acute Plan: Continue PT and OT. Patient will need to go to rehab upon discharge. (17) Transaminitis ICD Code: R74.0 - Nonspecific elevation of levels of transaminase and lactic acid dehydrogenase [LDH] Status: Resolved Plan: Now resolved. Continue to monitor liver function tests. Transaminitis likely secondary to sepsis and hepatitis C. 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 This is a low pattern and the patient does not have any other symptoms consistent with rheumatic disease. Will not pursue any further testing. The patient will need to follow-up as an outpatient by his primary care physician. (20) Hypotension ICD Code: I95.9 - Hypotension, unspecified Plan: Unclear etiology of hypotension. However the patient is on hemodialysis and is hypoalbuminemic, also patient is on several medications to control pain including fentanyl patch, Roxicodone, gabapentin. All of these factors could be contributing to the patient's hypotension. Upon review of records the patient has been hypotensive for some time now. Patient's hypotension started on 10/31/17 and blood pressure occasionally goes up , however it is most consistently in the high 80s to low 90s systolic. Start midodrine for blood pressure support. 11/10 BP better but bp still lowin the 90's systolic. Increase Midodrine dose to 10 mg po tid. 11/11 BP still borderline low, continue midodrine. Patient asymptomatic. Assessment and Plan DVT prophylaxis: SCDs, heparin subcutaneously. Discharge Planning Continue to monitor the medical floor. Pending clinical improvement. Problem Qualifiers (1) Endocarditis: (2) Hepatitis C: (3) Anemia: (4) Hypotension: Qualified Codes: I95.9 - Hypotension, unspecified Nathan Krishnan MD Nov 12, 2017 16:58
--- NOTE | 2017-11-12 20:27 | HHI.PR ---
Subjective Remarks 27 YOWM with bilat infilt, pl eff, MSSA Endocarditis up in chair Cough with small amount of sp Swelling legs decreased Had Paracentesis done Breathing better Objective Vital Signs Vital Signs Date Time Temp Pulse Resp B/P (MAP) Pulse Ox O2 Delivery O2 Flow Rate FiO2 11/12/17 16:05 98.0 85 18 88/54 (65) 96 11/12/17 12:05 97.7 69 18 158/79 (105) 98 11/12/17 11:22 94 Nasal Cannula 2.00 11/12/17 09:30 Nasal Cannula 4.00 11/12/17 08:05 97.6 87 17 95/59 (71) 97 11/12/17 04:08 94 2.00 11/12/17 04:02 81 11/12/17 03:28 Nasal Cannula 4.00 11/12/17 03:21 97.3 83 20 102/75 (84) 96 11/12/17 00:00 98.2 82 18 101/72 (82) 94 11/12/17 00:00 Nasal Cannula 4.00 11/11/17 23:43 81 I/O 11/11/17 11/11/17 11/11/17 11/12/17 11/12/17 11/12/17 07:00 15:00 23:00 07:00 15:00 23:00 Intake Total 720 ml 200 ml 460 ml Output Total 0 ml 1500 ml 400 ml Balance 720 ml -1300 ml 60 ml Intake Oral 720 ml 360 ml IV Total 200 ml 100 ml Output Urine Total 0 ml 400 ml Hemodialysis 1500 ml # Bowel Movements 1 0 Result Diagram: 11/12/1770211/12/17 07 Objective Remarks GENERAL: MBMN WM, mild sob SKIN: Warm and dry. HEAD: Normocephalic. EYES: No scleral icterus. No injection or drainage. NECK: Supple, trachea midline. No JVD or lymphadenopathy. CARDIOVASCULAR: Regular rate and rhythm without murmurs, gallops, or rubs. RESPIRATORY: Breath sounds equal bilaterally. No accessory muscle use. GASTROINTESTINAL: Abdomen soft, non-tender, nondistended. Abd distended, non tender MUSCULOSKELETAL: No cyanosis, ++ edema. BACK: Nontender without obvious deformity. No CVA tenderness. A/P Assessment and Plan Bilat infilterates improving Pl eff small Abd distension MSSA Endocarditis renal failure PLAN: Aerosol nebs Cont Abx per ID Monitor lytes Supplement 02 Pl eff small, will monitor HD per renal Jony Bustamante MD Nov 12, 2017 20:27
[2017-11-13] VITALS (9 sets, daily range): BP systolic 91–115; BP diastolic 60–68; PULSE 74–96; RESP 15–20; TEMP 97.3–98.1; O2SAT 95–100
[2017-11-13] MEDS: ACETAMINOPHEN 500 MG CPLT PO SCH ×5 (00:04→22:43)
[2017-11-13] MEDS: CHLORHEXIDINE GLUCONATE 2 % 1 PACK (2 CLOTHS) TOP SCH (03:16)
[2017-11-13] MEDS: MIDODRINE 5 MG TAB PO SCH ×3 (06:06→18:20)
[2017-11-13] MEDS: RESP: ALBUTEROL 2.5 MG/3 ML NEB (PRN) NEB ×2 (06:19→23:21)
[2017-11-13] MEDS: CHLORHEXIDINE 0.12% (ORAL KIT) 15 ML CUP MT SCH ×2 (08:00→20:00)
[2017-11-13] MEDS: DOCUSATE SODIUM 50 MG/SENNA 8.6 MG TAB PO SCH ×2 (09:00→22:43)
[2017-11-13] MEDS: LACTOBACILLUS ACIDOPHILUS TAB PO SCH ×3 (09:00→14:31)
[2017-11-13] MEDS: SODIUM CHLORIDE 1 GRAM TAB PO SCH (09:00)
[2017-11-13] MEDS: CALCIUM ACETATE 667 MG CAP PO SCH ×3 (09:00→18:20)
[2017-11-13] MEDS: PANTOPRAZOLE SOD 40 MG DELAYED RELEASE TAB PO SCH ×2 (09:00→22:43)
[2017-11-13] MEDS: HEPARIN SODIUM - SQ 10,000 UNITS/ML VIAL SQ SCH ×2 (09:00→22:44)
[2017-11-13] MEDS: SODIUM HYPOCHLORITE 0.125% 500 ML BTL TOPICAL SCH (09:00)
[2017-11-13] MEDS: COLLAGENASE OINT 30 GM TUBE TOPICAL SCH (09:00)
[2017-11-13] MEDS: METOPROLOL TARTRATE 25 MG TAB PO SCH ×2 (09:00→22:43)
[2017-11-13] MEDS: FLUTICASONE PROPIONATE 44 MCG/ACT 10.6 GM INHALER INH SCH ×2 (09:00→22:46)
[2017-11-13] MEDS: SODIUM CHLORIDE 0.9% FLUSH 10 ML FLUSH IV FLUSH SCH ×2 (09:00→22:46)
[2017-11-13 09:54] LABS: HEMATOCRIT 29.7 % (39.0-51.0); HEMOGLOBIN 9.9 GM/DL (13.0-17.0); MEAN CELL VOLUME 88.1 FL (80.0-100.0); MEAN CORPUSCULAR HEMOGLOBIN 29.2 PG (27.0-34.0); MEAN CORPUSCULAR HGB CONC 33.2 % (32.0-36.0); MEAN PLATELET VOLUME 8.5 FL (7.0-11.0); PLATELET COUNT 108 TH/MM3 (150-450); RED BLOOD COUNT 3.37 MIL/MM3 (4.50-5.90); RED CELL DISTRIBUTION WIDTH 20.4 % (11.6-17.2); WHITE BLOOD COUNT 9.6 TH/MM3 (4.0-11.0)
[2017-11-13 10:14] LABS: BICARBONATE 23.8 MEQ/L (21.0-32.0); CALCIUM 7.9 MG/DL (8.5-10.1); CREATININE 5.08 MG/DL (0.60-1.30)
[2017-11-13] MEDS: ONDANSETRON HCL 4 MG/2 ML VIAL IV PUSH PRN (11:01)
[2017-11-13] MEDS: HEPARIN SODIUM - IV 10,000 UNITS/10 ML VIAL PRN (11:01)
[2017-11-13] MEDS: MANNITOL 12.5 GM/50 ML VIAL IV PRN ×2 (11:01→11:06)
[2017-11-13] MEDS: EPOETIN ALFA 10,000 UNITS/ML VIAL IV PUSH PRN (11:01)
[2017-11-13] MEDS: GENTAMICIN SULFATE 20 MG/2 ML VIAL OTHER PRN (11:02)
[2017-11-13] MEDS: ALBUMIN 25% INJ 100 ML IV PRN (11:05)
[2017-11-13] MEDS: DULoxetine HCl DR 60 MG CAP PO SCH (11:32)
[2017-11-13] MEDS: FERROUS SULFATE 325 MG (65 MG ELEMENTAL IRON) TAB PO SCH ×2 (11:32→18:20)
[2017-11-13] MEDS: GABAPENTIN 100 MG CAP PO SCH (11:33)
--- NOTE | 2017-11-13 14:32 | HHI.NPPN ---
Subjective Complaints: Shortness of Breath Renal Failure: Acute History of Present Illness Patient is 27-year-old male who reported to ER with body aches, 7 days of diarrhea with development fever. Past medical history of IV drug use. Patient is sedated and ventilated FiO2 at 40 %. Nephrology is consulted for ZEUS and fluid over load status. Patients creatinine is 3.02 and GFR 25ml/min. Patient is UOP at 800cc for last 24 hours. Weight has increased by over 10 kg since admission. IVF's have been stopped and lasix has been given. Patient has endocarditis with large tricuspid valve vegetation, and pulmonic vegetation. Noted to have bacteremia with hypotension with SBP in the 90's. Additional Remarks Patient is resting comfortably. No complaints. Seen during dialysis (Venus Barrett) Review of Systems Cardiovascular Cardiac Remarks denies CP (Venus Barrett) Psych Psych: Depression, Anxiety (Venus Barrett) Objective Data Data 11/13/17 11/14/17 19:00 07:00 Output Total 1800 ml Balance -1800 ml Hemodialysis 1800 ml Vital Signs Date Time Temp Pulse Resp B/P (MAP) Pulse Ox O2 Delivery O2 Flow Rate FiO2 11/13/17 12:00 97.4 96 16 97/60 (72) 11/13/17 11:23 78 11/13/17 08:10 Nasal Cannula 4.00 30 11/13/17 08:10 74 11/13/17 08:00 97.3 86 15 97/63 (74) 95 11/13/17 06:05 102/68 (79) 11/13/17 04:00 79 11/13/17 04:00 Nasal Cannula 4.00 11/13/17 04:00 98.1 76 17 91/63 (72) 97 11/13/17 00:00 98.0 80 17 115/60 (78) 98 11/13/17 00:00 Nasal Cannula 4.00 11/13/17 00:00 88 11/12/17 20:29 96 Nasal Cannula 2.00 11/12/17 20:00 85 11/12/17 20:00 97.7 87 16 121/56 (77) 97 11/12/17 20:00 Nasal Cannula 4.00 11/12/17 16:05 98.0 85 18 88/54 (65 96 (Venus Barrett) -: 11/13/17 0655 11/13/17 0655 Tubes & Lines: Vas-Cath (Venus Barrett) Physical Exam General Appearance: No Acute Distress, Comfortable (Venus Barrett) Eyes Eye Exam: Pupils Equal (Venus Barrett) Pulmonary Resp Exam: Decreased Bases, Diminished Breath Sounds (Venus Barrett) Cardiology CV Exam: Tachycardia (Venus Barrett) Gastrointestinal/Abdomen GI Exam: Soft, Non-Tender, Bowel Sounds Present, Distended (Venus Barrett) Integumentary Skin Exam: Clear, Warm (Venus Barrett) Extremeties Extremities Exam: Moderate Edema (Venus Barrett) Neurologic Neuro Exam: Awake (Venus Barrett) Psychiatric Psych Exam: Appropriate Responses (Venus Barrett) Assessment/Plan Assessment Summary: ZEUS/Acute Renal Failure Electrolyte Assessment: Hyponatremia Problem List: (1) ZEUS (acute kidney injury) ICD Codes: N17.9 - Acute kidney failure, unspecified Plan: ZEUS most likely ATN from sepsis and low blood pressure. Other differential will be ATN, Acute interstitial nephritis, and Post infectious GN,unlikely. HD started on 10/08 Plan Dialysis currently T// through vas cath Continue Epogen with dialysis Continue phoslo Continue with midodrine 10 mg TID. Follow the urine out put and BMP. Dialysis with 1.8 liters removed. (2) Sepsis ICD Codes: A41.9 - Sepsis, unspecified organism Status: Acute Plan: Antibiotics per ID (3) Endocarditis ICD Codes: I38 - Endocarditis, valve unspecified Status: Acute Plan: antibiotics renal dosing (Venus Barrett) Problem List: (1) ZEUS (acute kidney injury) ICD Codes: N17.9 - Acute kidney failure, unspecified Plan: ZEUS most likely ATN from sepsis and low blood pressure. Other differential will be ATN, Acute interstitial nephritis, and Post infectious GN,unlikely. HD started on 10/08 Plan Dialysis currently T// through vas cath Continue Epogen with dialysis Continue phoslo Continue with midodrine 10 mg TID. Follow the urine out put and BMP. Dialysis with 1.8 liters removed. Patient seen and examined, agree with above. HD as needed, watch for renal recovery. (2) Sepsis ICD Codes: A41.9 - Sepsis, unspecified organism Status: Acute Plan: Antibiotics per ID (3) Endocarditis ICD Codes: I38 - Endocarditis, valve unspecified Status: Acute Plan: antibiotics renal dosing (Darek Tapia MD) Problem Qualifiers (1) Sepsis: Qualified Codes: A41.9 - Sepsis, unspecified organism (2) Endocarditis: Venus Barrett Nov 13, 2017 14:32 Darek Tapia MD Nov 13, 2017 14:48
--- NOTE | 2017-11-13 15:35 | HHI.PR ---
Subjective Remarks Deferred entry, the patient was seen earlier at 11:15 AM. The patient states he feels very tired, denies abdominal pain, nausea vomiting. Denies fevers or chills. Patient on 4 L nasal cannula. States could not sleep well last night. Objective Vitals Vital Signs Date Time Temp Pulse Resp B/P (MAP) Pulse Ox O2 Delivery O2 Flow Rate FiO2 11/13/17 12:00 97.4 96 16 97/60 (72) 11/13/17 11:23 78 11/13/17 08:10 Nasal Cannula 4.00 30 11/13/17 08:10 74 11/13/17 08:00 97.3 86 15 97/63 (74) 95 11/13/17 06:05 102/68 (79) 11/13/17 04:00 79 11/13/17 04:00 Nasal Cannula 4.00 11/13/17 04:00 98.1 76 17 91/63 (72) 97 11/13/17 00:00 98.0 80 17 115/60 (78) 98 11/13/17 00:00 Nasal Cannula 4.00 11/13/17 00:00 88 11/12/17 20:29 96 Nasal Cannula 2.00 11/12/17 20:00 85 11/12/17 20:00 97.7 87 16 121/56 (77) 97 11/12/17 20:00 Nasal Cannula 4.00 11/12/17 16:05 98.0 85 18 88/54 (65) 96 I/O 11/12/17 11/12/17 11/12/17 11/13/17 11/13/17 11/13/17 07:00 15:00 23:00 07:00 15:00 23:00 Intake Total 460 ml 700 ml Output Total 400 ml 0 ml 1800 ml Balance 60 ml 700 ml -1800 ml Intake Oral 360 ml 700 ml IV Total 100 ml Output Urine Total 400 ml 0 ml Hemodialysis 1800 ml # Bowel Movements 0 0 Result Diagram: 11/13/1755 11/13/17 0655 Imaging Last Impressions Cyst Biopsy Asp-Paracentesis US 11/10/17 0000 Signed Impressions: Service Date/Time: Friday, November 10, 2017 10:52 - CONCLUSION: Uncomplicated ultrasound guided paracentesis. Madi Mccartney MD Abdomen Ultrasound 11/07/17 0000 Signed Impressions: Service Date/Time: Tuesday, November 07, 2017 11:36 - CONCLUSION: Moderate amount of ascites confirmed for subsequent paracentesis but the patient refused the procedure and therefore was sent back to the floor. Khoi Padilla MD Chest CT 11/03/17 0000 Signed Impressions: Service Date/Time: Friday, November 03, 2017 10:16 - CONCLUSION: Scattered areas of consolidation and scattered nodular foci identified, a overall improved from the previous study however the consolidation in the right middle lobe is increased and is a change from previous studies. Chadwick Diaz MD Chest X-Ray 10/30/17 0000 Signed Impressions: Service Date/Time: October 17:04 - CONCLUSION: Increasing bilateral scattered pulmonary infiltrates compared to the prior study. Victorino Vang MD Liver Ultrasound 10/24/17 0000 Signed Impressions: Service Date/Time: Tuesday, October 24, 2017 16:43 - CONCLUSION: Hepatosplenomegaly with ascites. Echogenic kidney Madi Mccartney MD Abdomen/Pelvis CT 10/24/17 0000 Signed Impressions: Service Date/Time: Tuesday, October 24, 2017 21:37 - CONCLUSION: 1. Hepatosplenomegaly. 2. Moderate amount of ascites. 3. Diffuse anasarca. 4. Bibasilar pleural effusions and scattered infiltrates. Khoi Padilla MD Tunnelled Chest Tube Removal 10/20/17 0000 Signed Impressions: Service Date/Time: Friday, October 20, 2017 00:00 - CONCLUSION: Uncomplicated chest tube removal. Madi Mccartney MD Upper Extremity Ultrasound 10/13/17 0000 Signed Impressions: Service Date/Time: Friday, October 13, 2017 11:25 - CONCLUSION: Normal examination. Christian Kaur MD Abdomen X-Ray 10/10/17 0000 Signed Impressions: Service Date/Time: Tuesday, October 10, 2017 16:46 - CONCLUSION: Negative for free air or obstruction. Rahul Yarbrough MD FACR Chest Tube Insertion 10/06/17 0000 Signed Impressions: Service Date/Time: Friday, October 06, 2017 15:37 - CONCLUSION: Uncomplicated chest tube placement as above. Emerson Hui MD Objective Remarks AAOx3 nad S1S2 RRR, soft 2/6 systolic murmur Abdomen soft, nt, nd Clear lungs BL +1 edema in lower extremities BL Procedures CT-guided chest tube placement on left chest. Date 10/06/17. Medications and IVs Current Medications Medications (Trade) Dose Ordered Sig/Willem Route Start Time Stop Time Status Last Admin (NS Flush) 2 ml UNSCH PRN IV FLUSH 10/03/17 21:15 10/15/17 20:58 (NS Flush) 2 ml BID IV FLUSH 10/04/17 09:00 11/13/17 09:00 (Zofran Inj) 4 mg Q6H PRN IV PUSH 10/03/17 21:15 11/11/17 11:45 (Restoril) 15 mg HS PRN PO 10/03/17 21:15 11/11/17 01:02 Miscellaneous Information 1 Q361D XX 10/03/17 21:15 (Chlorhexidine 2% Cloth) 3 pack Taper DAILY@04 TOP 10/04/17 04:00 09/30/18 03:59 10/26/17 21:40 (Chlorhexidine 2% Cloth) 3 pack UNSCH PRN TOP 10/03/17 21:15 (Renita-Colace) 1 tab BID PO 10/04/17 09:00 11/11/17 20:52 (Senokot) 17.2 mg Q12H PRN PO 10/03/17 21:15 (Dulcolax Supp) 10 mg DAILY PRN RECTAL 10/03/17 21:15 10/11/17 17:08 (Lactulose Liq) 30 ml DAILY PRN PO 10/03/17 21:15 10/11/17 17:08 (Flovent Hfa 44 Mcg Inh) 2 puff BID INH 10/04/17 09:00 11/12/17 21:52 (Peridex 0.12% Liq) 15 ml BID@08,20 MT 10/04/17 20:00 11/10/17 10:13 Sodium Chloride 1,000 ml @ 0 mls/hr Q0M PRN OTHER 10/08/17 10:33 10/25/17 10:39 (Heparin Inj) 8,000 units UNSCH PRN IV FLUSH 10/08/17 10:45 Sodium Chloride 1,000 ml @ 200 mls/hr Q5H PRN IV 10/08/17 11:15 11/08/17 09:57 Sodium Chloride 1,000 ml @ 0 mls/hr Q0M PRN OTHER 10/08/17 11:15 (Mannitol Inj) 12.5 gm UNSCH PRN IV 10/08/17 11:15 11/13/17 11:06 Albumin Human 100 ml @ 60 mls/hr UNSCH PRN IV 10/08/17 11:30 11/13/17 11:05 (NS Flush) 5 ml UNSCH PRN IV FLUSH 10/08/17 11:15 10/25/17 10:40 (Heparin Inj) UNSCH PRN .XX 10/08/17 11:15 11/13/17 11:01 (Gentamicin Inj) 20 mg UNSCH PRN OTHER 10/08/17 11:15 11/13/17 11:02 (Zofran Inj) 4 mg UNSCH PRN IV PUSH 10/08/17 11:15 11/13/17 11:01 (Nitrostat Sl) 0.4 mg UNSCH PRN SL 10/08/17 11:30 (Catapres) 0.1 mg UNSCH PRN PO 10/08/17 11:30 (Epogen Inj) 10,000 units UNSCH PRN IV PUSH 10/08/17 11:30 11/13/17 11:01 (Gelfoam 12 Mm/7 Mm Top) 1 foam UNSCH PRN TOP 10/08/17 11:30 (Lactinex) 1 tab TID PO 10/17/17 13:00 11/13/17 14:31 (Duragesic 100 Mcg Patch.72 Hr) 1 patch Q3D T-DERMAL 10/18/17 12:00 11/08/17 13:18 Miscellaneous Information 1 Q3D T-DERMAL 10/21/17 12:00 11/08/17 13:18 (Albuterol Neb) 2.5 mg Q2HR NEB PRN NEB 10/21/17 13:30 11/13/17 06:19 (Protonix) 40 mg Q12HR PO 10/21/17 21:00 11/13/17 09:00 (Heparin Inj) 5,000 units Q12HR SQ 10/21/17 21:00 11/13/17 09:00 (Phoslo) 667 mg TID PO 10/23/17 13:00 11/13/17 09:00 Cefazolin Sodium 1000 mg/Sodium Chloride 100 ml @ 200 mls/hr Q12H IV 10/24/17 03:00 11/13/17 14:31 (Haldol Inj) 5 mg Q4H PRN IV PUSH 10/23/17 23:30 10/26/17 23:39 (Sodium Chloride) 1 gm DAILY PO 10/26/17 09:00 11/13/17 09:00 (Ferrous Sulfate) 325 mg BID@12,17 PO 10/27/17 12:00 11/13/17 11:32 (Tylenol) 500 mg Q6HR PO 10/31/17 00:00 11/13/17 11:38 (Roxicodone) 5 mg Q6H PRN PO 10/30/17 20:00 11/13/17 11:33 (Zanaflex) 2 mg Q8HR PO 10/30/17 22:00 11/13/17 14:31 (Atarax) 50 mg Q8H PRN PO 10/31/17 17:15 11/10/17 10:33 (Cymbalta Dr) 60 mg DAILY PO 11/03/17 12:00 11/13/17 11:32 (Neurontin) 300 mg Q24H PO 11/06/17 13:00 11/13/17 11:33 (Narcan Inj) 0.4 mg Q2M PRN IV PUSH 11/08/17 20:15 11/08/17 20:16 (Santyl Oint) 1 applic DAILY TOPICAL 11/11/17 09:00 11/13/17 09:00 (Dakin'S 0.125% Soln) 500 ml DAILY TOPICAL 11/11/17 09:00 11/13/17 09:00 (Proamatine) 10 mg TID@07,12,17 PO 11/11/17 12:00 11/13/17 11:32 (Lopressor) 12.5 mg BID PO 11/11/17 21:00 11/13/17 09:00 (Pill Splitter) 1 ea UNSCH PRN OTHER 11/11/17 19:00 A/P Problem List: (1) Endocarditis ICD Code: I38 - Endocarditis, valve unspecified Status: Acute (2) MSSA bacteremia ICD Code: R78.81 - Bacteremia (3) Tricuspid valve vegetation ICD Code: I33.0 - Acute and subacute infective endocarditis (4) IV drug abuse ICD Code: F19.10 - Other psychoactive substance abuse, uncomplicated (5) Pleural effusion, bilateral ICD Code: J90 - Pleural effusion, not elsewhere classified (6) Septic embolism ICD Code: I26.90 - Septic pulmonary embolism without acute cor pulmonale Status: Acute (7) Hepatitis C ICD Code: B19.20 - Unspecified viral hepatitis C without hepatic coma (8) Hepatosplenomegaly ICD Code: R16.2 - Hepatomegaly with splenomegaly, not elsewhere classified (9) Sacral decubitus ulcer, stage IV ICD Code: L89.154 - Pressure ulcer of sacral region, stage 4 Status: Acute (10) Anasarca ICD Code: R60.1 - Generalized edema (11) Acute systolic heart failure ICD Code: I50.21 - Acute systolic (congestive) heart failure (12) Moderate protein-calorie malnutrition ICD Code: E44.0 - Moderate protein-calorie malnutrition Status: Acute (13) Hyponatremia ICD Code: E87.1 - Hypo-osmolality and hyponatremia Status: Acute (14) ZEUS (acute kidney injury) ICD Code: N17.9 - Acute kidney failure, unspecified (15) Anemia ICD Code: D64.9 - Anemia, unspecified (16) Debility ICD Code: R53.81 - Other malaise Status: Acute (17) Transaminitis ICD Code: R74.0 - Nonspecific elevation of levels of transaminase and lactic acid dehydrogenase [LDH] Status: Resolved (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 Repeat bedside echocardiogram on 10/18 showed a similar size vegetation. Cardiology and CT surgery has followed. D/W Dr. Charles declined surgery due to active IV drug use, multiple medical complications. Discussed with [facility] who agreed with plan of our cardiothoracic surgeon. [facility] administration has denied the patient as well per CM. ID consulted. Continue IV antibiotics as per ID. Currently on IV cefazolin. (2) MSSA bacteremia Plan: Continue IV antibiotics as per ID. Last blood cultures on 10/18 negative 5. (3) Tricuspid valve vegetation Plan: Cardiology consulted and following. Dr Mirna aranda performing surgery on patient. (4) IV drug abuse Plan: The patient states he has not used drugs in 3 months. Advised and reinforced drug cessation. (5) Pleural effusion, bilateral Plan: Likely secondary to fluid overload and acute systolic heart failure. The patient hasis being dialyzed 11/12 repeat chest x-ray. (6) Septic embolism Plan: Secondary to tricuspid valve endocarditis. 11/12 previously on 4 L nasal cannula, respiratory status improving with patient on 2 L nasal cannula. (7) Hepatitis C Plan: Hepatitis C antibody reactive. Hepatitis C viral load 07471. Hepatitis C genotype 1A. Hepatitic ultrasound revealed hepatosplenomegaly. We will refer to GI as an outpatient for treatment. (8) Hepatosplenomegaly Plan: As seen on CT of the abdomen and pelvis with moderate amount of ascites and diffuse anasarca. (9) Sacral decubitus ulcer, stage IV Plan: wound care consulted - fu recommendations. Recommended plastic surgery consult for debridement. 11/12 consult plastic surgery. Continue wound care. (10) Anasarca Plan: As evidenced by bilateral pleural effusions, ascites and anasarca described on CT abdomen and pelvis. Patient refused abdominal paracentesis. Patient being dialyzed. 11/10 For Diagnostic and therapeutic abdominal paracentesis today. SP abdominal paracentesis on 11/10. Ascitic fluid non infectious. (11) Acute systolic heart failure Plan: Echo with EF of 35-40%. Treat fluid overload with dialysis. (12) Moderate protein-calorie malnutrition Plan: Dietitian consulted, recommends liberalize diet to allow more fluid options and hopefully increase p.o. intake. Nepro twice daily with encouragement. (13) Hyponatremia Plan: On fluid restriction - continue. Sodium stable at 131. (14) ZEUS (acute kidney injury) Plan: Most likely due to ATN from sepsis and low blood pressure. HD started on 10/08. Continue dialysis as per nephrology. Dialysis currently on Friday/ and Friday schedule. Avoid nephrotoxins, continue to monitor BUN and creatinine. (15) Anemia Plan: On ferrous sulfate and Epogen as per nephrology. Anemia likely secondary to chronic kidney disease. 11/09 hemoglobin dropped from 8.9-7.7. No obvious bleeding. Continue to monitor hemoglobin and hematocrit. Transfuse as needed for hemoglobin less than 7 or symptomatic anemia. 11/12 continue Epogen with dialysis as per nephrology. Hemoglobin trending up now 9.5. (16) Debility Plan: Continue PT and OT. Patient will need to go to rehab upon discharge. (17) Transaminitis Plan: Now resolved. Continue to monitor liver function tests. Transaminitis likely secondary to sepsis and hepatitis C. 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 Pain seems to be controlled. (19) MARTÍN positive Plan: The patient also has a positive MARTÍN with a titer of 1: 40 with a diffuse pattern. This is a low pattern and the patient does not have any other symptoms consistent with rheumatic disease. Will not pursue any further testing. The patient will need to follow-up as an outpatient by his primary care physician. (20) Hypotension Plan: Unclear etiology of hypotension. However the patient is on hemodialysis and is hypoalbuminemic, also patient is on several medications to control pain including fentanyl patch, Roxicodone, gabapentin. All of these factors could be contributing to the patient's hypotension. Upon review of records the patient has been hypotensive for some time now. Patient's hypotension started on 10/31/17 and blood pressure occasionally goes up , however it is most consistently in the high 80s to low 90s systolic. Start midodrine for blood pressure support. 11/10 BP better but bp still lowin the 90's systolic. Increase Midodrine dose to 10 mg po tid. 11/13 BP still borderline low, continue midodrine. Patient asymptomatic. DVT prophylaxis: SCDs, heparin subcutaneously. Discharge Planning Continue to monitor the medical floor. Pending clinical improvement and infectious disease clearance. Problem Qualifiers (1) Endocarditis: (2) Hepatitis C: (3) Anemia: (4) Hypotension: Qualified Codes: I95.9 - Hypotension, unspecified Nathan Krishnan MD Nov 13, 2017 15:35
[2017-11-13] MEDS ORDERED: TEMAZEPAM 15 MG CAP PO PRN (15:45)
--- NOTE | 2017-11-13 17:10 | HHI.PR ---
Subjective Remarks 27 YOWM with bilat infilt, pl eff, MSSA Endocarditis up in chair Cough with small amount of sp Swelling legs decreased Breathing better On 4 LNC Objective Vital Signs Vital Signs Date Time Temp Pulse Resp B/P (MAP) Pulse Ox O2 Delivery O2 Flow Rate FiO2 11/13/17 15:37 78 11/13/17 12:00 97.4 96 16 97/60 (72) 11/13/17 11:23 78 11/13/17 08:10 Nasal Cannula 4.00 30 11/13/17 08:10 74 11/13/17 08:00 97.3 86 15 97/63 (74) 95 11/13/17 06:05 102/68 (79) 11/13/17 04:00 79 11/13/17 04:00 Nasal Cannula 4.00 11/13/17 04:00 98.1 76 17 91/63 (72) 97 11/13/17 00:00 98.0 80 17 115/60 (78) 98 11/13/17 00:00 Nasal Cannula 4.00 11/13/17 00:00 88 11/12/17 20:29 96 Nasal Cannula 2.00 11/12/17 20:00 85 11/12/17 20:00 97.7 87 16 121/56 (77) 97 11/12/17 20:00 Nasal Cannula 4.00 I/O 11/12/17 11/12/17 11/12/17 11/13/17 11/13/17 11/13/17 07:00 15:00 23:00 07:00 15:00 23:00 Intake Total 460 ml 700 ml Output Total 400 ml 0 ml 1800 ml Balance 60 ml 700 ml -1800 ml Intake Oral 360 ml 700 ml IV Total 100 ml Output Urine Total 400 ml 0 ml Hemodialysis 1800 ml # Bowel Movements 0 0 Result Diagram: 11/13/1765411/13/17 0655 Objective Remarks GENERAL: MBMN WM, mild sob SKIN: Warm and dry. HEAD: Normocephalic. EYES: No scleral icterus. No injection or drainage. NECK: Supple, trachea midline. No JVD or lymphadenopathy. CARDIOVASCULAR: Regular rate and rhythm without murmurs, gallops, or rubs. RESPIRATORY: Breath sounds equal bilaterally. No accessory muscle use. GASTROINTESTINAL: Abdomen soft, non-tender, nondistended. Abd distended, non tender MUSCULOSKELETAL: No cyanosis, ++ edema. BACK: Nontender without obvious deformity. No CVA tenderness. A/P Assessment and Plan Bilat infilterates improving Pl eff small Abd distension MSSA Endocarditis renal failure PLAN: Aerosol nebs Cont Abx per ID Monitor lytes Supplement 02 Pl eff small, will monitor HD per renal Stable on NC Jony Bustamante MD Nov 13, 2017 17:10
[2017-11-13] MEDS: TEMAZEPAM 15 MG CAP PO PRN (22:49)
[2017-11-14] VITALS (10 sets, daily range): BP systolic 92–101; BP diastolic 50–62; PULSE 82–96; RESP 17–20; TEMP 97.4–98.8; O2SAT 94–98
[2017-11-14] MEDS: RESP: ALBUTEROL 2.5 MG/3 ML NEB (PRN) NEB ×4 (02:58→20:52)
[2017-11-14] MEDS: CHLORHEXIDINE GLUCONATE 2 % 1 PACK (2 CLOTHS) TOP SCH (04:00)
[2017-11-14] MEDS: MIDODRINE 5 MG TAB PO SCH ×3 (05:33→17:30)
[2017-11-14] MEDS: ACETAMINOPHEN 500 MG CPLT PO SCH ×3 (05:33→17:31)
[2017-11-14] MEDS: CHLORHEXIDINE 0.12% (ORAL KIT) 15 ML CUP MT SCH ×3 (05:36→20:00)
[2017-11-14] MEDS: FLUTICASONE PROPIONATE 44 MCG/ACT 10.6 GM INHALER INH SCH ×2 (09:00→21:37)
[2017-11-14] MEDS: SODIUM CHLORIDE 0.9% FLUSH 10 ML FLUSH IV FLUSH SCH ×2 (09:00→21:37)
[2017-11-14] MEDS: COLLAGENASE OINT 30 GM TUBE TOPICAL SCH (09:00)
[2017-11-14] MEDS: SODIUM HYPOCHLORITE 0.125% 500 ML BTL TOPICAL SCH (09:00)
[2017-11-14] MEDS: CALCIUM ACETATE 667 MG CAP PO SCH ×3 (09:02→17:31)
[2017-11-14] MEDS: PANTOPRAZOLE SOD 40 MG DELAYED RELEASE TAB PO SCH ×2 (09:02→21:36)
[2017-11-14] MEDS: DOCUSATE SODIUM 50 MG/SENNA 8.6 MG TAB PO SCH ×2 (09:02→21:00)
[2017-11-14] MEDS: DULoxetine HCl DR 60 MG CAP PO SCH (09:02)
[2017-11-14] MEDS: LACTOBACILLUS ACIDOPHILUS TAB PO SCH ×3 (09:03→17:30)
[2017-11-14] MEDS: HEPARIN SODIUM - SQ 10,000 UNITS/ML VIAL SQ SCH ×2 (09:03→21:38)
[2017-11-14] MEDS: SODIUM CHLORIDE 1 GRAM TAB PO SCH (09:03)
[2017-11-14] MEDS: METOPROLOL TARTRATE 25 MG TAB PO SCH ×2 (09:03→21:36)
--- NOTE | 2017-11-14 11:26 | HHI.NPPN ---
Subjective Complaints: Shortness of Breath Renal Failure: Acute History of Present Illness Patient is 27-year-old male who reported to ER with body aches, 7 days of diarrhea with development fever. Past medical history of IV drug use. Patient is sedated and ventilated FiO2 at 40 %. Nephrology is consulted for ZEUS and fluid over load status. Patients creatinine is 3.02 and GFR 25ml/min. Patient is UOP at 800cc for last 24 hours. Weight has increased by over 10 kg since admission. IVF's have been stopped and lasix has been given. Patient has endocarditis with large tricuspid valve vegetation, and pulmonic vegetation. Noted to have bacteremia with hypotension with SBP in the 90's. Additional Remarks Patient is resting comfortably. Family is at bedside. No complaints. (Venus Barrett) Review of Systems Cardiovascular Cardiac Remarks denies CP (Venus Barrett) Gastrointestinal GI Remarks No abdominal pain (Venus Barrett) Psych Psych: Depression, Anxiety (Venus Barrett) Objective Data Data Vital Signs Date Time Temp Pulse Resp B/P (MAP) Pulse Ox O2 Delivery O2 Flow Rate FiO2 11/14/17 08:00 97.9 88 20 101/62 (75) 96 11/14/17 04:00 Nasal Cannula 4.00 11/14/17 04:00 97.4 88 17 95/62 (73) 94 11/14/17 04:00 90 11/14/17 00:00 Nasal Cannula 3.00 11/14/17 00:00 83 11/14/17 00:00 98.8 84 19 94/50 (65) 95 11/13/17 20:00 Nasal Cannula 4.00 11/13/17 20:00 98.1 76 20 107/64 (78) 100 11/13/17 20:00 91 11/13/17 15:37 78 11/13/17 12:00 97.4 96 16 97/60 (72) (Venus Barrett) -: 11/13/17 0655 11/13/17 0655 Tubes & Lines: Vas-Cath (Venus Barrett) Physical Exam General Appearance: No Acute Distress, Comfortable (Venus Barrett) Eyes Eye Exam: Pupils Equal (Venus Barrett) Pulmonary Resp Exam: Breath Sounds Equal, Decreased Bases, Diminished Breath Sounds (Venus Barrett) Cardiology CV Exam: Regular, Murmur (Venus Barrett) Gastrointestinal/Abdomen GI Exam: Soft, Non-Tender, Bowel Sounds Present, Distended (Venus Barrett) Integumentary Skin Exam: Clear, Warm (Venus Barrett) Extremeties Extremities Exam: Trace Edema (Venus Barrett) Neurologic Neuro Exam: Awake (Venus Barrett) Psychiatric Psych Exam: Appropriate Responses (Venus Barrett) Assessment/Plan Assessment Summary: ZEUS/Acute Renal Failure Electrolyte Assessment: Hyponatremia Problem List: (1) ZEUS (acute kidney injury) ICD Codes: N17.9 - Acute kidney failure, unspecified Plan: ZESU most likely ATN from sepsis and low blood pressure. Other differential will be ATN, Acute interstitial nephritis, and Post infectious GN,unlikely. HD started on 10/08 Plan Dialysis currently T/ through vas cath Continue Epogen with dialysis Continue phoslo Continue with midodrine 10 mg TID. Follow the urine out put and BMP and watch for renal recovery Dialysis with 1.8 liters removed. Dialysis tomorrow (2) Sepsis ICD Codes: A41.9 - Sepsis, unspecified organism Status: Acute Plan: Antibiotics per ID (3) Endocarditis ICD Codes: I38 - Endocarditis, valve unspecified Status: Acute Plan: antibiotics renal dosing (Venus Barrett) Problem List: (1) ZEUS (acute kidney injury) ICD Codes: N17.9 - Acute kidney failure, unspecified Plan: ZEUS most likely ATN from sepsis and low blood pressure. Other differential will be ATN, Acute interstitial nephritis, and Post infectious GN,unlikely. HD started on 10/08 Plan Dialysis currently T/ through vas cath Continue Epogen with dialysis Continue phoslo Continue with midodrine 10 mg TID. Follow the urine out put and BMP and watch for renal recovery Dialysis with 1.8 liters removed. Dialysis tomorrow. Patient seen and examined, agree with above. Watch for renal recovery. (2) Sepsis ICD Codes: A41.9 - Sepsis, unspecified organism Status: Acute Plan: Antibiotics per ID (3) Endocarditis ICD Codes: I38 - Endocarditis, valve unspecified Status: Acute Plan: antibiotics renal dosing (Darek Tapia MD) Problem Qualifiers (1) Sepsis: Qualified Codes: A41.9 - Sepsis, unspecified organism (2) Endocarditis: Venus Barrett Nov 14, 2017 11:26 Darek Tapia MD Nov 17, 2017 19:27
[2017-11-14] MEDS: fentaNYL 100 MCG/HR PATCH T-DERMAL SCH ×2 (12:00→12:47)
[2017-11-14] MEDS: REMOVE OLD PATCH T-DERMAL SCH (12:00)
[2017-11-14] MEDS: GABAPENTIN 100 MG CAP PO SCH (12:47)
[2017-11-14] MEDS: FERROUS SULFATE 325 MG (65 MG ELEMENTAL IRON) TAB PO SCH ×2 (12:48→17:30)
--- NOTE | 2017-11-14 14:34 | HHI.PR ---
Subjective Remarks Patient states feels very thirsty - requesting ice chips. Feels tired c/o of early satiety Objective Vitals Vital Signs Date Time Temp Pulse Resp B/P (MAP) Pulse Ox O2 Delivery O2 Flow Rate FiO2 11/14/17 08:00 97.9 88 20 101/62 (75) 96 11/14/17 04:00 Nasal Cannula 4.00 11/14/17 04:00 97.4 88 17 95/62 (73) 94 11/14/17 04:00 90 11/14/17 00:00 Nasal Cannula 3.00 11/14/17 00:00 83 11/14/17 00:00 98.8 84 19 94/50 (65) 95 11/13/17 20:00 Nasal Cannula 4.00 11/13/17 20:00 98.1 76 20 107/64 (78) 100 11/13/17 20:00 91 11/13/17 15:37 78 I/O 11/13/17 11/13/17 11/13/17 11/14/17 11/14/17 11/14/17 07:00 15:00 23:00 07:00 15:00 23:00 Intake Total 700 ml 480 ml 300 ml Output Total 0 ml 1800 ml 100 ml 0 ml Balance 700 ml -1800 ml 380 ml 300 ml Intake Oral 700 ml 380 ml 200 ml IV Total 100 ml 100 ml Output Urine Total 0 ml 100 ml 0 ml Hemodialysis 1800 ml # Bowel Movements 0 0 1 Result Diagram: 11/13/17 0655 11/13/17 0655 Imaging Last Impressions Cyst Biopsy Asp-Paracentesis US 11/10/17 0000 Signed Impressions: Service Date/Time: Friday, November 10, 2017 10:52 - CONCLUSION: Uncomplicated ultrasound guided paracentesis. Madi Mccartney MD Abdomen Ultrasound 11/07/17 0000 Signed Impressions: Service Date/Time: Tuesday, November 07, 2017 11:36 - CONCLUSION: Moderate amount of ascites confirmed for subsequent paracentesis but the patient refused the procedure and therefore was sent back to the floor. Khoi Padilla MD Chest CT 11/03/17 0000 Signed Impressions: Service Date/Time: Friday, November 03, 2017 10:16 - CONCLUSION: Scattered areas of consolidation and scattered nodular foci identified, a overall improved from the previous study however the consolidation in the right middle lobe is increased and is a change from previous studies. Chadwick Diaz MD Chest X-Ray 10/30/17 0000 Signed Impressions: Service Date/Time: October 17:04 - CONCLUSION: Increasing bilateral scattered pulmonary infiltrates compared to the prior study. Victorino Vang MD Liver Ultrasound 10/24/17 0000 Signed Impressions: Service Date/Time: Tuesday, October 24, 2017 16:43 - CONCLUSION: Hepatosplenomegaly with ascites. Echogenic kidney Madi Mccartney MD Abdomen/Pelvis CT 10/24/17 0000 Signed Impressions: Service Date/Time: Tuesday, October 24, 2017 21:37 - CONCLUSION: 1. Hepatosplenomegaly. 2. Moderate amount of ascites. 3. Diffuse anasarca. 4. Bibasilar pleural effusions and scattered infiltrates. Kohi Padilla MD Tunnelled Chest Tube Removal 10/20/17 0000 Signed Impressions: Service Date/Time: Friday, October 20, 2017 00:00 - CONCLUSION: Uncomplicated chest tube removal. Madi Mccartney MD Upper Extremity Ultrasound 10/13/17 0000 Signed Impressions: Service Date/Time: Friday, October 13, 2017 11:25 - CONCLUSION: Normal examination. Christian Kaur MD Abdomen X-Ray 10/10/17 0000 Signed Impressions: Service Date/Time: Tuesday, October 10, 2017 16:46 - CONCLUSION: Negative for free air or obstruction. Rahul Yarbrough MD FACR Chest Tube Insertion 10/06/17 0000 Signed Impressions: Service Date/Time: Friday, October 06, 2017 15:37 - CONCLUSION: Uncomplicated chest tube placement as above. Emerson Hui MD Objective Remarks AAOx3 nad S1S2 RRR, soft 2/6 systolic murmur Abdomen soft, nt, mildly, distended Clear lungs BL +1 edema in lower extremities BL Procedures CT-guided chest tube placement on left chest. Date 10/06/17. Medications and IVs Current Medications Medications (Trade) Dose Ordered Sig/Willem Route Start Time Stop Time Status Last Admin (NS Flush) 2 ml UNSCH PRN IV FLUSH 10/03/17 21:15 10/15/17 20:58 (NS Flush) 2 ml BID IV FLUSH 10/04/17 09:00 3/23/18 09:00 (Zofran Inj) 4 mg Q6H PRN IV PUSH 10/03/17 21:15 11/11/17 11:45 (Restoril) 15 mg HS PRN PO 10/03/17 21:15 11/13/17 22:49 Miscellaneous Information 1 Q361D XX 10/03/17 21:15 (Chlorhexidine 2% Cloth) 3 pack Taper DAILY@04 TOP 10/04/17 04:00 09/30/18 03:59 10/26/17 21:40 (Chlorhexidine 2% Cloth) 3 pack UNSCH PRN TOP 10/03/17 21:15 (Renita-Colace) 1 tab BID PO 10/04/17 09:00 11/14/17 09:02 (Senokot) 17.2 mg Q12H PRN PO 10/03/17 21:15 (Dulcolax Supp) 10 mg DAILY PRN RECTAL 10/03/17 21:15 10/11/17 17:08 (Lactulose Liq) 30 ml DAILY PRN PO 10/03/17 21:15 10/11/17 17:08 (Flovent Hfa 44 Mcg Inh) 2 puff BID INH 10/04/17 09:00 11/14/17 09:00 (Peridex 0.12% Liq) 15 ml BID@08,20 MT 10/04/17 20:00 11/14/17 08:00 Sodium Chloride 1,000 ml @ 0 mls/hr Q0M PRN OTHER 10/08/17 10:33 10/25/17 10:39 (Heparin Inj) 8,000 units UNSCH PRN IV FLUSH 10/08/17 10:45 Sodium Chloride 1,000 ml @ 200 mls/hr Q5H PRN IV 10/08/17 11:15 11/08/17 09:57 Sodium Chloride 1,000 ml @ 0 mls/hr Q0M PRN OTHER 10/08/17 11:15 (Mannitol Inj) 12.5 gm UNSCH PRN IV 10/08/17 11:15 11/13/17 11:06 Albumin Human 100 ml @ 60 mls/hr UNSCH PRN IV 10/08/17 11:30 11/13/17 11:05 (NS Flush) 5 ml UNSCH PRN IV FLUSH 10/08/17 11:15 10/25/17 10:40 (Heparin Inj) UNSCH PRN .XX 10/08/17 11:15 11/13/17 11:01 (Gentamicin Inj) 20 mg UNSCH PRN OTHER 10/08/17 11:15 11/13/17 11:02 (Zofran Inj) 4 mg UNSCH PRN IV PUSH 10/08/17 11:15 11/13/17 11:01 (Nitrostat Sl) 0.4 mg UNSCH PRN SL 10/08/17 11:30 (Catapres) 0.1 mg UNSCH PRN PO 10/08/17 11:30 (Epogen Inj) 10,000 units UNSCH PRN IV PUSH 10/08/17 11:30 11/13/17 11:01 (Gelfoam 12 Mm/7 Mm Top) 1 foam UNSCH PRN TOP 10/08/17 11:30 (Lactinex) 1 tab TID PO 10/17/17 13:00 11/14/17 12:47 (Duragesic 100 Mcg Patch.72 Hr) 1 patch Q3D T-DERMAL 10/18/17 12:00 11/14/17 12:47 Miscellaneous Information 1 Q3D T-DERMAL 10/21/17 12:00 11/14/17 12:00 (Albuterol Neb) 2.5 mg Q2HR NEB PRN NEB 10/21/17 13:30 11/14/17 11:28 (Protonix) 40 mg Q12HR PO 10/21/17 21:00 11/14/17 09:02 (Heparin Inj) 5,000 units Q12HR SQ 10/21/17 21:00 11/14/17 09:03 (Phoslo) 667 mg TID PO 10/23/17 13:00 11/14/17 12:48 Cefazolin Sodium 1000 mg/Sodium Chloride 100 ml @ 200 mls/hr Q12H IV 10/24/17 03:00 11/14/17 02:43 (Haldol Inj) 5 mg Q4H PRN IV PUSH 10/23/17 23:30 10/26/17 23:39 (Sodium Chloride) 1 gm DAILY PO 10/26/17 09:00 11/14/17 09:03 (Ferrous Sulfate) 325 mg BID@12,17 PO 10/27/17 12:00 11/14/17 12:48 (Tylenol) 500 mg Q6HR PO 10/31/17 00:00 11/14/17 12:48 (Roxicodone) 5 mg Q6H PRN PO 10/30/17 20:00 11/14/17 09:08 (Zanaflex) 2 mg Q8HR PO 10/30/17 22:00 11/14/17 05:34 (Atarax) 50 mg Q8H PRN PO 10/31/17 17:15 11/10/17 10:33 (Cymbalta Dr) 60 mg DAILY PO 11/03/17 12:00 11/14/17 09:02 (Neurontin) 300 mg Q24H PO 11/06/17 13:00 11/14/17 12:47 (Narcan Inj) 0.4 mg Q2M PRN IV PUSH 11/08/17 20:15 11/08/17 20:16 (Santyl Oint) 1 applic DAILY TOPICAL 11/11/17 09:00 11/14/17 09:00 (Dakin'S 0.125% Soln) 500 ml DAILY TOPICAL 11/11/17 09:00 11/14/17 09:00 (Proamatine) 10 mg TID@07,12,17 PO 11/11/17 12:00 11/14/17 12:47 (Lopressor) 12.5 mg BID PO 11/11/17 21:00 11/14/17 09:03 (Pill Splitter) 1 ea UNSCH PRN OTHER 11/11/17 19:00 (Restoril) 15 mg HS PRN PO 11/13/17 15:45 A/P Problem List: (1) Endocarditis ICD Code: I38 - Endocarditis, valve unspecified Status: Acute (2) MSSA bacteremia ICD Code: R78.81 - Bacteremia (3) Tricuspid valve vegetation ICD Code: I33.0 - Acute and subacute infective endocarditis (4) IV drug abuse ICD Code: F19.10 - Other psychoactive substance abuse, uncomplicated (5) Pleural effusion, bilateral ICD Code: J90 - Pleural effusion, not elsewhere classified (6) Septic embolism ICD Code: I26.90 - Septic pulmonary embolism without acute cor pulmonale Status: Acute (7) Hepatitis C ICD Code: B19.20 - Unspecified viral hepatitis C without hepatic coma (8) Hepatosplenomegaly ICD Code: R16.2 - Hepatomegaly with splenomegaly, not elsewhere classified (9) Sacral decubitus ulcer, stage IV ICD Code: L89.154 - Pressure ulcer of sacral region, stage 4 Status: Acute (10) Anasarca ICD Code: R60.1 - Generalized edema (11) Acute systolic heart failure ICD Code: I50.21 - Acute systolic (congestive) heart failure (12) Moderate protein-calorie malnutrition ICD Code: E44.0 - Moderate protein-calorie malnutrition Status: Acute (13) Hyponatremia ICD Code: E87.1 - Hypo-osmolality and hyponatremia Status: Acute (14) ZEUS (acute kidney injury) ICD Code: N17.9 - Acute kidney failure, unspecified (15) Anemia ICD Code: D64.9 - Anemia, unspecified (16) Debility ICD Code: R53.81 - Other malaise Status: Acute (17) Transaminitis ICD Code: R74.0 - Nonspecific elevation of levels of transaminase and lactic acid dehydrogenase [LDH] Status: Resolved (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 Repeat bedside echocardiogram on 10/18 showed a similar size vegetation. Cardiology and CT surgery has followed. D/W Dr. Charles declined surgery due to active IV drug use, multiple medical complications. Discussed with [facility] who agreed with plan of our cardiothoracic surgeon. [facility] administration has denied the patient as well per CM. ID consulted. Continue IV antibiotics as per ID. Currently on IV cefazolin. (2) MSSA bacteremia Plan: Continue IV antibiotics as per ID. Last blood cultures on 10/18 negative 5. (3) Tricuspid valve vegetation Plan: Cardiology consulted and following. Dr Bradley decilned performing surgery on patient. (4) IV drug abuse Plan: The patient states he has not used drugs in 3 months. Advised and reinforced drug cessation. (5) Pleural effusion, bilateral Plan: Likely secondary to fluid overload and acute systolic heart failure. The patient hasis being dialyzed 11/14 repeat chest x-ray. (6) Septic embolism Plan: Secondary to tricuspid valve endocarditis. 11/12 previously on 4 L nasal cannula, respiratory status improving with patient on 2 L nasal cannula. (7) Hepatitis C Plan: Hepatitis C antibody reactive. Hepatitis C viral load [id number]. Hepatitis C genotype 1A. Hepatitic ultrasound revealed hepatosplenomegaly. We will refer to GI as an outpatient for treatment. (8) Hepatosplenomegaly Plan: As seen on CT of the abdomen and pelvis with moderate amount of ascites and diffuse anasarca. (9) Sacral decubitus ulcer, stage IV Plan: wound care consulted - fu recommendations. Recommended plastic surgery consult for debridement. 11/12 consult plastic surgery. Continue wound care. (10) Anasarca Plan: As evidenced by bilateral pleural effusions, ascites and anasarca described on CT abdomen and pelvis. Patient refused abdominal paracentesis. Patient being dialyzed. 11/10 For Diagnostic and therapeutic abdominal paracentesis today. SP abdominal paracentesis on 11/10. Ascitic fluid non infectious. (11) Acute systolic heart failure Plan: Echo with EF of 35-40%. Treat fluid overload with dialysis. (12) Moderate protein-calorie malnutrition Plan: Dietitian consulted, recommends liberalize diet to allow more fluid options and hopefully increase p.o. intake. Nepro twice daily with encouragement. (13) Hyponatremia Plan: On fluid restriction - continue. Sodium stable at 131. (14) ZEUS (acute kidney injury) Plan: Most likely due to ATN from sepsis and low blood pressure. HD started on 10/08. Continue dialysis as per nephrology. Dialysis currently on Friday/ and Friday schedule. Avoid nephrotoxins, continue to monitor BUN and creatinine. (15) Anemia Plan: On ferrous sulfate and Epogen as per nephrology. Anemia likely secondary to chronic kidney disease. 11/09 hemoglobin dropped from 8.9-7.7. No obvious bleeding. Continue to monitor hemoglobin and hematocrit. Transfuse as needed for hemoglobin less than 7 or symptomatic anemia. 11/12 continue Epogen with dialysis as per nephrology. Hemoglobin trending up now 9.5. (16) Debility Plan: Continue PT and OT. Patient will need to go to rehab upon discharge. (17) Transaminitis Plan: Now resolved. Continue to monitor liver function tests. Transaminitis likely secondary to sepsis and hepatitis C. 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 Pain seems to be controlled. (19) MARTÍN positive Plan: The patient also has a positive MARTÍN with a titer of 1: 40 with a diffuse pattern. This is a low pattern and the patient does not have any other symptoms consistent with rheumatic disease. Will not pursue any further testing. The patient will need to follow-up as an outpatient by his primary care physician. (20) Hypotension Plan: Unclear etiology of hypotension. However the patient is on hemodialysis and is hypoalbuminemic, also patient is on several medications to control pain including fentanyl patch, Roxicodone, gabapentin. All of these factors could be contributing to the patient's hypotension. Upon review of records the patient has been hypotensive for some time now. Patient's hypotension started on 10/31/17 and blood pressure occasionally goes up , however it is most consistently in the high 80s to low 90s systolic. Start midodrine for blood pressure support. 11/10 BP better but bp still lowin the 90's systolic. Increase Midodrine dose to 10 mg po tid. 11/13 BP still borderline low, continue midodrine. Patient asymptomatic. DVT prophylaxis: SCDs, heparin subcutaneously. Discharge Planning Continue to monitor the medical floor. Pending clinical improvement and infectious disease clearance. Problem Qualifiers (1) Endocarditis: (2) Hepatitis C: (3) Anemia: (4) Hypotension: Qualified Codes: I95.9 - Hypotension, unspecified Nathan Krishnan MD Nov 14, 2017 14:34
--- NOTE | 2017-11-14 15:12 | RADRPT ---
EXAM DATE/TIME: 11/14/2017 14:46 [facility] COMPARISON: CHEST SINGLE AP, October 30, 2017, 17:04. INDICATIONS : Pleural effusion. MEDICAL HISTORY : Hepatitis C. MRSA, Endocarditis SURGICAL HISTORY : None. ENCOUNTER: Initial ACUITY: 1 month PAIN SCORE: 2/10 LOCATION: Bilateral chest FINDINGS: A single view of the chest demonstrates cardiomegaly. Pulmonary vascular congestion and perihilar flako ma. Right-sided pleural effusion noted. Right-sided vascular catheter unchanged.. Osseous structures are intact. CONCLUSION: Cardiomegaly with improving bilateral perihilar edema. Moderate right pleural effusion. Chaitanya Copeland MD on November 14, 2017 at 15:08 Board Certified Radiologist. This report was verified electronically.
--- NOTE | 2017-11-14 18:54 | HHI.PR ---
Subjective Remarks 27 YOWM with bilat infilt, pl eff, MSSA Endocarditis up in chair Cough with small amount of sp Breathing better On 2 LNC Objective Vital Signs Vital Signs Date Time Temp Pulse Resp B/P (MAP) Pulse Ox O2 Delivery O2 Flow Rate FiO2 11/14/17 18:02 96 Nasal Cannula 2.00 11/14/17 16:00 98.3 86 20 92/61 (71) 96 11/14/17 08:00 97.9 88 20 101/62 (75) 96 11/14/17 04:00 Nasal Cannula 4.00 11/14/17 04:00 97.4 88 17 95/62 (73) 94 11/14/17 04:00 90 11/14/17 00:00 Nasal Cannula 3.00 11/14/17 00:00 83 11/14/17 00:00 98.8 84 19 94/50 (65) 95 11/13/17 20:00 Nasal Cannula 4.00 11/13/17 20:00 98.1 76 20 107/64 (78) 100 11/13/17 20:00 91 I/O 11/13/17 11/13/17 11/13/17 11/14/17 11/14/17 11/14/17 07:00 15:00 23:00 07:00 15:00 23:00 Intake Total 700 ml 480 ml 300 ml 600 ml Output Total 0 ml 1800 ml 100 ml 0 ml Balance 700 ml -1800 ml 380 ml 300 ml 600 ml Intake Oral 700 ml 380 ml 200 ml 600 ml IV Total 100 ml 100 ml Output Urine Total 0 ml 100 ml 0 ml Hemodialysis 1800 ml # Voids 0 # Bowel Movements 0 0 1 0 Result Diagram: 11/13/1765411/13/17654 Objective Remarks GENERAL: MBMN WM, mild sob SKIN: Warm and dry. HEAD: Normocephalic. EYES: No scleral icterus. No injection or drainage. NECK: Supple, trachea midline. No JVD or lymphadenopathy. CARDIOVASCULAR: Regular rate and rhythm without murmurs, gallops, or rubs. RESPIRATORY: Breath sounds equal bilaterally. No accessory muscle use. GASTROINTESTINAL: Abdomen soft, non-tender, nondistended. Abd distended, non tender MUSCULOSKELETAL: No cyanosis, ++ edema. BACK: Nontender without obvious deformity. No CVA tenderness. A/P Assessment and Plan Bilat infilterates improving Pl eff small Abd distension MSSA Endocarditis renal failure PLAN: Aerosol nebs Cont Abx per ID Supplement 02 Pl eff small, will monitor HD per renal Jony Bustamante MD Nov 14, 2017 18:54
[2017-11-15] VITALS (10 sets, daily range): BP systolic 93–106; BP diastolic 53–73; PULSE 84–101; RESP 18; TEMP 97.6–98.5; O2SAT 93–99
[2017-11-15] MEDS: ACETAMINOPHEN 500 MG CPLT PO SCH ×4 (00:13→17:57)
[2017-11-15] MEDS: RESP: ALBUTEROL 2.5 MG/3 ML NEB (PRN) NEB ×5 (00:38→16:17)
[2017-11-15] MEDS: CHLORHEXIDINE GLUCONATE 2 % 1 PACK (2 CLOTHS) TOP SCH (03:19)
[2017-11-15] MEDS: MIDODRINE 5 MG TAB PO SCH ×3 (05:32→17:55)
[2017-11-15] MEDS: CHLORHEXIDINE 0.12% (ORAL KIT) 15 ML CUP MT SCH ×2 (08:00→20:00)
[2017-11-15] MEDS: COLLAGENASE OINT 30 GM TUBE TOPICAL SCH (09:00)
[2017-11-15] MEDS: DOCUSATE SODIUM 50 MG/SENNA 8.6 MG TAB PO SCH ×2 (09:00→21:00)
[2017-11-15] MEDS: LACTOBACILLUS ACIDOPHILUS TAB PO SCH ×3 (10:05→17:57)
[2017-11-15] MEDS: METOPROLOL TARTRATE 25 MG TAB PO SCH ×2 (10:06→21:00)
[2017-11-15] MEDS: DULoxetine HCl DR 60 MG CAP PO SCH (10:06)
[2017-11-15] MEDS: SODIUM CHLORIDE 1 GRAM TAB PO SCH (10:06)
[2017-11-15] MEDS: PANTOPRAZOLE SOD 40 MG DELAYED RELEASE TAB PO SCH ×2 (10:07→21:00)
[2017-11-15] MEDS: CALCIUM ACETATE 667 MG CAP PO SCH ×3 (10:07→17:57)
[2017-11-15] MEDS: HEPARIN SODIUM - SQ 10,000 UNITS/ML VIAL SQ SCH ×2 (10:09→21:00)
[2017-11-15] MEDS: SODIUM CHLORIDE 0.9% FLUSH 10 ML FLUSH IV FLUSH SCH ×2 (10:11→21:00)
[2017-11-15] MEDS: FLUTICASONE PROPIONATE 44 MCG/ACT 10.6 GM INHALER INH SCH ×2 (10:14→21:00)
--- NOTE | 2017-11-15 13:25 | HHI.PR ---
Subjective Remarks The patient denies chest pain or shortness of breath. The patient states he feels very tired and weak. Patient is afebrile, on 2 L nasal cannula. Objective Vitals Vital Signs Date Time Temp Pulse Resp B/P (MAP) Pulse Ox O2 Delivery O2 Flow Rate FiO2 11/15/17 12:00 97.9 84 18 105/62 (76) 96 11/15/17 09:12 94 Nasal Cannula 4.00 11/15/17 08:00 98.0 95 18 102/65 (77) 96 11/15/17 04:00 97.6 86 18 93/73 (80) 94 11/15/17 04:00 90 11/15/17 00:40 93 Nasal Cannula 11/15/17 00:00 89 11/15/17 00:00 98.1 91 18 106/60 (75) 94 11/14/17 21:00 Nasal Cannula 4.00 11/14/17 20:00 82 11/14/17 20:00 98.3 84 18 96/60 (72) 94 11/14/17 18:02 96 Nasal Cannula 2.00 11/14/17 16:00 98.3 86 20 92/61 (71) 96 11/14/17 15:47 86 I/O 11/14/17 11/14/17 11/14/17 11/15/17 11/15/17 11/15/17 07:00 15:00 23:00 07:00 15:00 23:00 Intake Total 300 ml 600 ml 240 ml Output Total 0 ml 400 ml Balance 300 ml 600 ml -160 ml Intake Oral 200 ml 600 ml 240 ml IV Total 100 ml Output Urine Total 0 ml 400 ml # Voids 0 # Bowel Movements 1 0 1 Result Diagram: 11/13/17 0655 11/13/17 0655 Imaging Last Impressions Chest X-Ray 11/14/17 0000 Signed Impressions: Service Date/Time: Tuesday, November 14, 2017 14:46 - CONCLUSION: Cardiomegaly with improving bilateral perihilar edema. Moderate right pleural effusion. Chaitanya Copeland MD Cyst Biopsy Asp-Paracentesis US 11/10/17 0000 Signed Impressions: Service Date/Time: Friday, November 10, 2017 10:52 - CONCLUSION: Uncomplicated ultrasound guided paracentesis. Madi Mccartney MD Abdomen Ultrasound 11/07/17 0000 Signed Impressions: Service Date/Time: Tuesday, November 07, 2017 11:36 - CONCLUSION: Moderate amount of ascites confirmed for subsequent paracentesis but the patient refused the procedure and therefore was sent back to the floor. Khoi Padilla MD Chest CT 11/03/17 0000 Signed Impressions: Service Date/Time: Friday, November 03, 2017 10:16 - CONCLUSION: Scattered areas of consolidation and scattered nodular foci identified, a overall improved from the previous study however the consolidation in the right middle lobe is increased and is a change from previous studies. Chadwick Diaz MD Liver Ultrasound 10/24/17 0000 Signed Impressions: Service Date/Time: Tuesday, October 24, 2017 16:43 - CONCLUSION: Hepatosplenomegaly with ascites. Echogenic kidney Madi Mccartney MD Abdomen/Pelvis CT 10/24/17 0000 Signed Impressions: Service Date/Time: Tuesday, October 24, 2017 21:37 - CONCLUSION: 1. Hepatosplenomegaly. 2. Moderate amount of ascites. 3. Diffuse anasarca. 4. Bibasilar pleural effusions and scattered infiltrates. Khoi Padilla MD Tunnelled Chest Tube Removal 10/20/17 0000 Signed Impressions: Service Date/Time: Friday, October 20, 2017 00:00 - CONCLUSION: Uncomplicated chest tube removal. Madi Mccartney MD Upper Extremity Ultrasound 10/13/17 0000 Signed Impressions: Service Date/Time: Friday, October 13, 2017 11:25 - CONCLUSION: Normal examination. Christian Kaur MD Abdomen X-Ray 10/10/17 0000 Signed Impressions: Service Date/Time: Tuesday, October 10, 2017 16:46 - CONCLUSION: Negative for free air or obstruction. Rahul Yarbrough MD FACR Chest Tube Insertion 10/06/17 0000 Signed Impressions: Service Date/Time: Friday, October 06, 2017 15:37 - CONCLUSION: Uncomplicated chest tube placement as above. Emerson Hui MD Objective Remarks AAOx3 nad S1S2 RRR, soft 2/6 systolic murmur Abdomen soft, nt, mildly, distended Clear lungs BL +1 edema in lower extremities BL Procedures CT-guided chest tube placement on left chest. Date 10/06/17. Medications and IVs Current Medications Medications (Trade) Dose Ordered Sig/Willem Route Start Time Stop Time Status Last Admin (NS Flush) 2 ml UNSCH PRN IV FLUSH 10/03/17 21:15 10/15/17 20:58 (NS Flush) 2 ml BID IV FLUSH 10/04/17 09:00 11/15/17 10:11 (Zofran Inj) 4 mg Q6H PRN IV PUSH 10/03/17 21:15 11/11/17 11:45 (Restoril) 15 mg HS PRN PO 10/03/17 21:15 11/13/17 22:49 Miscellaneous Information 1 Q361D XX 10/03/17 21:15 (Chlorhexidine 2% Cloth) 3 pack Taper DAILY@04 TOP 10/04/17 04:00 09/30/18 03:59 10/26/17 21:40 (Chlorhexidine 2% Cloth) 3 pack UNSCH PRN TOP 10/03/17 21:15 (Renita-Colace) 1 tab BID PO 10/04/17 09:00 11/14/17 09:02 (Senokot) 17.2 mg Q12H PRN PO 10/03/17 21:15 (Dulcolax Supp) 10 mg DAILY PRN RECTAL 10/03/17 21:15 10/11/17 17:08 (Lactulose Liq) 30 ml DAILY PRN PO 10/03/17 21:15 10/11/17 17:08 (Flovent Hfa 44 Mcg Inh) 2 puff BID INH 10/04/17 09:00 11/15/17 10:14 (Peridex 0.12% Liq) 15 ml BID@08,20 MT 10/04/17 20:00 11/14/17 08:00 Sodium Chloride 1,000 ml @ 0 mls/hr Q0M PRN OTHER 10/08/17 10:33 10/25/17 10:39 (Heparin Inj) 8,000 units UNSCH PRN IV FLUSH 10/08/17 10:45 Sodium Chloride 1,000 ml @ 200 mls/hr Q5H PRN IV 10/08/17 11:15 11/08/17 09:57 Sodium Chloride 1,000 ml @ 0 mls/hr Q0M PRN OTHER 10/08/17 11:15 (Mannitol Inj) 12.5 gm UNSCH PRN IV 10/08/17 11:15 11/13/17 11:06 Albumin Human 100 ml @ 60 mls/hr UNSCH PRN IV 10/08/17 11:30 11/13/17 11:05 (NS Flush) 5 ml UNSCH PRN IV FLUSH 10/08/17 11:15 10/25/17 10:40 (Heparin Inj) UNSCH PRN .XX 10/08/17 11:15 11/13/17 11:01 (Gentamicin Inj) 20 mg UNSCH PRN OTHER 10/08/17 11:15 11/13/17 11:02 (Zofran Inj) 4 mg UNSCH PRN IV PUSH 10/08/17 11:15 11/13/17 11:01 (Nitrostat Sl) 0.4 mg UNSCH PRN SL 10/08/17 11:30 (Catapres) 0.1 mg UNSCH PRN PO 10/08/17 11:30 (Epogen Inj) 10,000 units UNSCH PRN IV PUSH 10/08/17 11:30 11/13/17 11:01 (Gelfoam 12 Mm/7 Mm Top) 1 foam UNSCH PRN TOP 10/08/17 11:30 (Lactinex) 1 tab TID PO 10/17/17 13:00 11/15/17 10:05 (Duragesic 100 Mcg Patch.72 Hr) 1 patch Q3D T-DERMAL 10/18/17 12:00 11/08/17 13:18 Miscellaneous Information 1 Q3D T-DERMAL 10/21/17 12:00 11/14/17 12:00 (Albuterol Neb) 2.5 mg Q2HR NEB PRN NEB 10/21/17 13:30 11/15/17 09:12 (Protonix) 40 mg Q12HR PO 10/21/17 21:00 11/15/17 10:07 (Heparin Inj) 5,000 units Q12HR SQ 10/21/17 21:00 11/15/17 10:09 (Phoslo) 667 mg TID PO 10/23/17 13:00 11/15/17 10:07 Cefazolin Sodium 1000 mg/Sodium Chloride 100 ml @ 200 mls/hr Q12H IV 10/24/17 03:00 11/15/17 03:52 (Haldol Inj) 5 mg Q4H PRN IV PUSH 10/23/17 23:30 10/26/17 23:39 (Sodium Chloride) 1 gm DAILY PO 10/26/17 09:00 11/15/17 10:06 (Ferrous Sulfate) 325 mg BID@12,17 PO 10/27/17 12:00 11/14/17 17:30 (Tylenol) 500 mg Q6HR PO 10/31/17 00:00 11/15/17 05:31 (Roxicodone) 5 mg Q6H PRN PO 10/30/17 20:00 11/15/17 10:05 (Zanaflex) 2 mg Q8HR PO 10/30/17 22:00 11/15/17 05:31 (Atarax) 50 mg Q8H PRN PO 10/31/17 17:15 11/10/17 10:33 (Cymbalta Dr) 60 mg DAILY PO 11/03/17 12:00 11/15/17 10:06 (Neurontin) 300 mg Q24H PO 11/06/17 13:00 11/14/17 12:47 (Narcan Inj) 0.4 mg Q2M PRN IV PUSH 11/08/17 20:15 11/08/17 20:16 (Santyl Oint) 1 applic DAILY TOPICAL 11/11/17 09:00 11/14/17 09:00 (Dakin'S 0.125% Soln) 500 ml DAILY TOPICAL 11/11/17 09:00 11/14/17 09:00 (Proamatine) 10 mg TID@,,17 PO 11/11/17 12:00 11/15/17 05:32 (Lopressor) 12.5 mg BID PO 11/11/17 21:00 11/15/17 10:06 (Pill Splitter) 1 ea UNSCH PRN OTHER 11/11/17 19:00 A/P Problem List: (1) Endocarditis ICD Code: I38 - Endocarditis, valve unspecified Status: Acute (2) MSSA bacteremia ICD Code: R78.81 - Bacteremia (3) Tricuspid valve vegetation ICD Code: I33.0 - Acute and subacute infective endocarditis (4) IV drug abuse ICD Code: F19.10 - Other psychoactive substance abuse, uncomplicated (5) Pleural effusion, bilateral ICD Code: J90 - Pleural effusion, not elsewhere classified (6) Septic embolism ICD Code: I26.90 - Septic pulmonary embolism without acute cor pulmonale Status: Acute (7) Hepatitis C ICD Code: B19.20 - Unspecified viral hepatitis C without hepatic coma (8) Hepatosplenomegaly ICD Code: R16.2 - Hepatomegaly with splenomegaly, not elsewhere classified (9) Sacral decubitus ulcer, stage IV ICD Code: L89.154 - Pressure ulcer of sacral region, stage 4 Status: Acute (10) Anasarca ICD Code: R60.1 - Generalized edema (11) Acute systolic heart failure ICD Code: I50.21 - Acute systolic (congestive) heart failure (12) Moderate protein-calorie malnutrition ICD Code: E44.0 - Moderate protein-calorie malnutrition Status: Acute (13) Hyponatremia ICD Code: E87.1 - Hypo-osmolality and hyponatremia Status: Acute (14) ZEUS (acute kidney injury) ICD Code: N17.9 - Acute kidney failure, unspecified (15) Anemia ICD Code: D64.9 - Anemia, unspecified (16) Debility ICD Code: R53.81 - Other malaise Status: Acute (17) Transaminitis ICD Code: R74.0 - Nonspecific elevation of levels of transaminase and lactic acid dehydrogenase [LDH] Status: Resolved (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 Repeat bedside echocardiogram on 10/18 showed a similar size vegetation. Cardiology and CT surgery has followed. D/W Dr. Charles declined surgery due to active IV drug use, multiple medical complications. Discussed with [facility] who agreed with plan of our cardiothoracic surgeon. [facility] administration has denied the patient as well per CM. ID consulted. Continue IV antibiotics as per ID. Currently on IV cefazolin. (2) MSSA bacteremia Plan: Continue IV antibiotics as per ID. Last blood cultures on 2/24 negative 5. (3) Tricuspid valve vegetation Plan: Cardiology consulted and following. Dr Mirna aranda performing surgery on patient. (4) IV drug abuse Plan: The patient states he has not used drugs in 3 months. Advised and reinforced drug cessation. (5) Pleural effusion, bilateral Plan: Likely secondary to fluid overload and acute systolic heart failure. The patient hasis being dialyzed 11/11 4 repeat chest x-ray on 11/14 showed cardiomegaly with improving bilateral perihilar edema. Moderate right pleural effusion. Images reviewed by me. We will continue to follow and repeat chest x-ray in a couple days to see evolution of pleural effusion. The patient might require thoracentesis. (6) Septic embolism Plan: Secondary to tricuspid valve endocarditis. 11/12 previously on 4 L nasal cannula, respiratory status improving with patient on 2 L nasal cannula. (7) Hepatitis C Plan: Hepatitis C antibody reactive. Hepatitis C viral load 11348. Hepatitis C genotype 1A. Hepatitic ultrasound revealed hepatosplenomegaly. We will refer to GI as an outpatient for treatment. (8) Hepatosplenomegaly Plan: As seen on CT of the abdomen and pelvis with moderate amount of ascites and diffuse anasarca. (9) Sacral decubitus ulcer, stage IV Plan: wound care consulted - fu recommendations. Recommended plastic surgery consult for debridement. 11/12 consult plastic surgery. Continue wound care. (10) Anasarca Plan: As evidenced by bilateral pleural effusions, ascites and anasarca described on CT abdomen and pelvis. Patient refused abdominal paracentesis. Patient being dialyzed. 11/10 For Diagnostic and therapeutic abdominal paracentesis today. SP abdominal paracentesis on 11/10. Ascitic fluid non infectious. (11) Acute systolic heart failure Plan: Echo with EF of 35-40%. Treat fluid overload with dialysis. (12) Moderate protein-calorie malnutrition Plan: Dietitian consulted, recommends liberalize diet to allow more fluid options and hopefully increase p.o. intake. Nepro twice daily with encouragement. (13) Hyponatremia Plan: On fluid restriction - continue. Sodium stable at 131. (14) ZEUS (acute kidney injury) Plan: Most likely due to ATN from sepsis and low blood pressure. HD started on 10/08. Continue dialysis as per nephrology. Dialysis currently on Friday/ and Friday schedule. Avoid nephrotoxins, continue to monitor BUN and creatinine. (15) Anemia Plan: On ferrous sulfate and Epogen as per nephrology. Anemia likely secondary to chronic kidney disease. 11/09 hemoglobin dropped from 8.9-7.7. No obvious bleeding. Continue to monitor hemoglobin and hematocrit. Transfuse as needed for hemoglobin less than 7 or symptomatic anemia. 11/12 continue Epogen with dialysis as per nephrology. Hemoglobin trending up now 9.5. (16) Debility Plan: Continue PT and OT. Patient will need to go to rehab upon discharge. (17) Transaminitis Plan: Now resolved. Continue to monitor liver function tests. Transaminitis likely secondary to sepsis and hepatitis C. 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 Pain seems to be controlled. (19) MARTÍN positive Plan: The patient also has a positive MARTÍN with a titer of 1: 40 with a diffuse pattern. This is a low pattern and the patient does not have any other symptoms consistent with rheumatic disease. Will not pursue any further testing. The patient will need to follow-up as an outpatient by his primary care physician. (20) Hypotension Plan: Unclear etiology of hypotension. However the patient is on hemodialysis and is hypoalbuminemic, also patient is on several medications to control pain including fentanyl patch, Roxicodone, gabapentin. All of these factors could be contributing to the patient's hypotension. Upon review of records the patient has been hypotensive for some time now. Patient's hypotension started on 10/31/17 and blood pressure occasionally goes up , however it is most consistently in the high 80s to low 90s systolic. Start midodrine for blood pressure support. 11/10 BP better but bp still lowin the 90's systolic. Increase Midodrine dose to 10 mg po tid. BP still borderline low, continue midodrine. Patient asymptomatic. DVT prophylaxis: SCDs, heparin subcutaneously. Discharge Planning Continue to monitor the medical floor. Pending clinical improvement and infectious disease clearance. Problem Qualifiers (1) Endocarditis: (2) Hepatitis C: (3) Anemia: (4) Hypotension: Qualified Codes: I95.9 - Hypotension, unspecified Nathan Krishnan MD Nov 15, 2017 13:25
[2017-11-15] MEDS: SODIUM CHLOR 0.9% 1000 ML INJ 1,000 ML OTHER PRN (14:56)
[2017-11-15] MEDS: SODIUM CHLORIDE 0.9% FLUSH 10 ML FLUSH IV FLUSH PRN (14:56)
[2017-11-15] MEDS: EPOETIN ALFA 10,000 UNITS/ML VIAL IV PUSH PRN (14:57)
[2017-11-15] MEDS: HEPARIN SODIUM - IV 10,000 UNITS/10 ML VIAL PRN (14:57)
[2017-11-15] MEDS: GENTAMICIN SULFATE 20 MG/2 ML VIAL OTHER PRN (14:57)
--- NOTE | 2017-11-15 15:05 | HHI.PR ---
Subjective Remarks 27 YOWM with bilat infilt, pl eff, MSSA Endocarditis up in chair Cough with small amount of sp Breathing better On 2 LNC No new complaint Objective Vital Signs Vital Signs Date Time Temp Pulse Resp B/P (MAP) Pulse Ox O2 Delivery O2 Flow Rate FiO2 11/15/17 12:00 97.9 84 18 105/62 (76) 96 11/15/17 09:12 94 Nasal Cannula 4.00 11/15/17 08:00 98.0 95 18 102/65 (77) 96 11/15/17 07:15 Nasal Cannula 2.00 11/15/17 04:00 97.6 86 18 93/73 (80) 94 11/15/17 04:00 90 11/15/17 00:40 93 Nasal Cannula 11/15/17 00:00 89 11/15/17 00:00 98.1 91 18 106/60 (75) 94 11/14/17 21:00 Nasal Cannula 4.00 11/14/17 20:00 82 11/14/17 20:00 98.3 84 18 96/60 (72) 94 11/14/17 18:02 96 Nasal Cannula 2.00 11/14/17 16:00 98.3 86 20 92/61 (71) 96 11/14/17 15:47 86 I/O 11/14/17 11/14/17 11/14/17 11/15/17 11/15/17 11/15/17 07:00 15:00 23:00 07:00 15:00 23:00 Intake Total 300 ml 600 ml 240 ml Output Total 0 ml 400 ml Balance 300 ml 600 ml -160 ml Intake Oral 200 ml 600 ml 240 ml IV Total 100 ml Output Urine Total 0 ml 400 ml # Voids 0 # Bowel Movements 1 0 1 Result Diagram: 11/13/17 0655 11/13/17 0655 Objective Remarks GENERAL: MBMN WM, mild sob SKIN: Warm and dry. HEAD: Normocephalic. EYES: No scleral icterus. No injection or drainage. NECK: Supple, trachea midline. No JVD or lymphadenopathy. CARDIOVASCULAR: Regular rate and rhythm without murmurs, gallops, or rubs. RESPIRATORY: Breath sounds equal bilaterally. No accessory muscle use. GASTROINTESTINAL: Abdomen soft, non-tender, nondistended. Abd distended, non tender MUSCULOSKELETAL: No cyanosis, ++ edema. BACK: Nontender without obvious deformity. No CVA tenderness. A/P Assessment and Plan Bilat infilterates improving Pl eff small Abd distension MSSA Endocarditis renal failure PLAN: Aerosol nebs Cont Abx per ID Supplement 02 Pl eff small, will monitor HD per renal Available prn over weekend. Jony Bustamante MD Nov 15, 2017 15:05
[2017-11-15] MEDS: ONDANSETRON HCL 4 MG/2 ML VIAL IV PUSH PRN (15:48)
[2017-11-15] MEDS: FERROUS SULFATE 325 MG (65 MG ELEMENTAL IRON) TAB PO SCH ×2 (17:00→17:55)
--- NOTE | 2017-11-15 17:25 | HHI.NPPN ---
Subjective Complaints: Shortness of Breath Renal Failure: Acute History of Present Illness Patient is 27-year-old male who reported to ER with body aches, 7 days of diarrhea with development fever. Past medical history of IV drug use. Patient is sedated and ventilated FiO2 at 40 %. Nephrology is consulted for ZEUS and fluid over load status. Patients creatinine is 3.02 and GFR 25ml/min. Patient is UOP at 800cc for last 24 hours. Weight has increased by over 10 kg since admission. IVF's have been stopped and lasix has been given. Patient has endocarditis with large tricuspid valve vegetation, and pulmonic vegetation. Noted to have bacteremia with hypotension with SBP in the 90's. Additional Remarks Patient is resting comfortably. Family is at bedside. No complaints. Review of Systems Cardiovascular Cardiac Remarks denies CP Gastrointestinal GI Remarks No abdominal pain Psych Psych: Depression, Anxiety Objective Data Data Vital Signs Date Time Temp Pulse Resp B/P (MAP) Pulse Ox O2 Delivery O2 Flow Rate FiO2 11/15/17 12:40 86 11/15/17 12:00 97.9 84 18 105/62 (76) 96 11/15/17 09:12 94 Nasal Cannula 4.00 11/15/17 08:00 98.0 95 18 102/65 (77) 96 11/15/17 08:00 84 11/15/17 07:15 Nasal Cannula 2.00 11/15/17 04:00 97.6 86 18 93/73 (80) 94 11/15/17 04:00 90 11/15/17 00:40 93 Nasal Cannula 11/15/17 00:00 89 11/15/17 00:00 98.1 91 18 106/60 (75) 94 11/14/17 21:00 Nasal Cannula 4.00 11/14/17 20:00 82 11/14/17 20:00 98.3 84 18 96/60 (72) 94 11/14/17 18:02 96 Nasal Cannula 2.00 -: 11/13/17 0655 11/13/17 0655 Tubes & Lines: Vas-Cath Physical Exam General Appearance: No Acute Distress, Comfortable Eyes Eye Exam: Pupils Equal Pulmonary Resp Exam: Breath Sounds Equal, Decreased Bases, Diminished Breath Sounds Cardiology CV Exam: Regular, Murmur Gastrointestinal/Abdomen GI Exam: Soft, Non-Tender, Bowel Sounds Present, Distended Integumentary Skin Exam: Clear, Warm Extremeties Extremities Exam: Trace Edema Neurologic Neuro Exam: Awake Psychiatric Psych Exam: Appropriate Responses Assessment/Plan Assessment Summary: ZEUS/Acute Renal Failure Electrolyte Assessment: Hyponatremia Problem List: (1) ZEUS (acute kidney injury) ICD Codes: N17.9 - Acute kidney failure, unspecified Plan: ZEUS most likely ATN from sepsis and low blood pressure. Other differential will be ATN, Acute interstitial nephritis, and Post infectious GN,unlikely. HD started on 10/08 Plan Dialysis currently through vas cath Continue Epogen with dialysis Continue phoslo Continue with midodrine 10 mg TID. Follow the urine out put and BMP and watch for renal recovery Patient seen during hemodialysis 3 L removed he is tolerating it (2) Sepsis ICD Codes: A41.9 - Sepsis, unspecified organism Status: Acute Plan: Antibiotics per ID (3) Endocarditis ICD Codes: I38 - Endocarditis, valve unspecified Status: Acute Plan: antibiotics renal dosing Problem Qualifiers (1) Sepsis: Qualified Codes: A41.9 - Sepsis, unspecified organism (2) Endocarditis: Sofie De Los Santos MD Nov 15, 2017 17:25
[2017-11-15] MEDS: SODIUM HYPOCHLORITE 0.125% 500 ML BTL TOPICAL SCH (17:53)
[2017-11-15] MEDS: GABAPENTIN 100 MG CAP PO SCH (17:54)
[2017-11-15 23:33] LABS: AUTOMATED NEUTROPHIL # 6.6 TH/MM3 (1.8-7.7); BASOPHIL # 0.1 TH/MM3 (0-0.2); BASOPHIL % 1.1 % (0.0-2.0); EOSINOPHIL # 0.4 TH/MM3 (0-0.4); EOSINOPHIL % 4.2 % (0.0-4.0); HEMATOCRIT 24.8 % (39.0-51.0); HEMOGLOBIN 8.8 GM/DL (13.0-17.0); LYMPH % 12.3 % (9.0-44.0); LYMPHOCYTE # 1.1 TH/MM3 (1.0-4.8); MEAN CORPUSCULAR HGB CONC 35.6 % (32.0-36.0); MEAN PLATELET VOLUME 8.5 FL (7.0-11.0); MONO % 8.5 % (0.0-8.0); MONOCYTE # 0.8 TH/MM3 (0-0.9); NEUT % 73.9 % (16.0-70.0); PLATELET COUNT 90 TH/MM3 (150-450); RED BLOOD COUNT 2.85 MIL/MM3 (4.50-5.90); RED CELL DISTRIBUTION WIDTH 21.4 % (11.6-17.2); WHITE BLOOD COUNT 8.9 TH/MM3 (4.0-11.0)
[2017-11-15 23:58] LABS: ALBUMIN 2.5 GM/DL (3.4-5.0); ALT (GPT) LESS THAN 6 U/L (12-78); AST (GOT) 6 U/L (15-37); BICARBONATE 27.2 MEQ/L (21.0-32.0); BLOOD UREA NITROGEN 23 MG/DL (7-18); CALCIUM 7.8 MG/DL (8.5-10.1); CHLORIDE 94 MEQ/L (98-107); CREATININE 3.46 MG/DL (0.60-1.30); GLOMERULAR FILTRATION RATE 22 ML/MIN (>89); GLUCOSE,RANDOM 94 MG/DL (74-106); MAGNESIUM 1.7 MG/DL (1.5-2.5); PHOSPHORUS 3.7 MG/DL (2.5-4.9); SODIUM (NA) 133 MEQ/L (136-145)
[2017-11-16] VITALS (11 sets, daily range): BP systolic 91–105; BP diastolic 54–62; PULSE 70–94; RESP 17–20; TEMP 97.5–98.2; O2SAT 95–98
[2017-11-16] LABS: ALKALINE PHOSPHATASE 65 U/L (45-117); TOTAL PROTEIN 7.2 GM/DL (6.4-8.2)
[2017-11-16 00:03] LABS: TOXIC GRANULATION 2+ (NORMAL)
[2017-11-16 00:04] LABS: ACANTHOCYTES OCC (NORMAL)
[2017-11-16] MEDS: CHLORHEXIDINE GLUCONATE 2 % 1 PACK (2 CLOTHS) TOP SCH (03:37)
[2017-11-16] MEDS: ACETAMINOPHEN 500 MG CPLT PO SCH ×4 (05:40→18:07)
[2017-11-16] MEDS: MIDODRINE 5 MG TAB PO SCH ×3 (05:41→18:07)
[2017-11-16] MEDS: PANTOPRAZOLE SOD 40 MG DELAYED RELEASE TAB PO SCH ×2 (07:55→20:41)
[2017-11-16] MEDS: DOCUSATE SODIUM 50 MG/SENNA 8.6 MG TAB PO SCH ×2 (07:55→20:42)
[2017-11-16] MEDS: DULoxetine HCl DR 60 MG CAP PO SCH (07:56)
[2017-11-16] MEDS: SODIUM CHLORIDE 1 GRAM TAB PO SCH (07:56)
[2017-11-16] MEDS: METOPROLOL TARTRATE 25 MG TAB PO SCH ×2 (07:56→20:40)
[2017-11-16] MEDS: LACTOBACILLUS ACIDOPHILUS TAB PO SCH ×3 (07:57→18:07)
[2017-11-16] MEDS: CHLORHEXIDINE 0.12% (ORAL KIT) 15 ML CUP MT SCH ×2 (08:00→20:00)
[2017-11-16] MEDS: HEPARIN SODIUM - SQ 10,000 UNITS/ML VIAL SQ SCH ×2 (08:02→20:42)
[2017-11-16] MEDS: CALCIUM ACETATE 667 MG CAP PO SCH ×3 (08:02→18:06)
[2017-11-16] MEDS: FLUTICASONE PROPIONATE 44 MCG/ACT 10.6 GM INHALER INH SCH ×2 (08:04→20:42)
[2017-11-16] MEDS: RESP: ALBUTEROL 2.5 MG/3 ML NEB (PRN) NEB ×3 (08:31→22:14)
[2017-11-16] MEDS: SODIUM CHLORIDE 0.9% FLUSH 10 ML FLUSH IV FLUSH SCH ×2 (09:00→20:42)
[2017-11-16] MEDS: SODIUM HYPOCHLORITE 0.125% 500 ML BTL TOPICAL SCH (09:00)
[2017-11-16] MEDS: COLLAGENASE OINT 30 GM TUBE TOPICAL SCH (09:00)
--- NOTE | 2017-11-16 12:51 | HHI.PR ---
Subjective Remarks Patient states he feels much better. Denies cp/sob Afebrile Objective Vitals Vital Signs Date Time Temp Pulse Resp B/P (MAP) Pulse Ox O2 Delivery O2 Flow Rate FiO2 11/16/17 12:00 97.8 89 20 96/59 (71) 96 11/16/17 08:33 96 Nasal Cannula 3.00 11/16/17 08:10 86 11/16/17 08:00 97.8 93 20 100/60 (73) 97 11/16/17 04:00 98.2 72 17 95/54 (68) 97 11/16/17 04:00 78 11/16/17 04:00 Nasal Cannula 4.00 11/16/17 00:00 82 11/16/17 00:00 98.0 70 17 91/62 (72) 98 11/15/17 21:05 Nasal Cannula 4.00 11/15/17 20:00 98.1 85 18 103/56 (72) 97 11/15/17 20:00 89 11/15/17 17:30 98.5 100 18 96/53 (67) 99 11/15/17 16:00 101 I/O 11/15/17 11/15/17 11/15/17 11/16/17 11/16/17 11/16/17 07:00 15:00 23:00 07:00 15:00 23:00 Intake Total 240 ml 600 ml 100 ml Output Total 400 ml 3000 ml 400 ml Balance -160 ml -2400 ml -300 ml Intake Oral 240 ml 600 ml IV Total 100 ml Output Urine Total 400 ml 400 ml Hemodialysis 3000 ml # Bowel Movements 1 Result Diagram: 11/15/17225511/15/[id number] Imaging Last Impressions Chest X-Ray 11/14/17 0000 Signed Impressions: Service Date/Time: Tuesday, November 14, 2017 14:46 - CONCLUSION: Cardiomegaly with improving bilateral perihilar edema. Moderate right pleural effusion. Chaitanya Copeland MD Cyst Biopsy Asp-Paracentesis US 11/10/17 0000 Signed Impressions: Service Date/Time: Friday, November 10, 2017 10:52 - CONCLUSION: Uncomplicated ultrasound guided paracentesis. Madi Mccartney MD Abdomen Ultrasound 11/07/17 0000 Signed Impressions: Service Date/Time: Tuesday, November 07, 2017 11:36 - CONCLUSION: Moderate amount of ascites confirmed for subsequent paracentesis but the patient refused the procedure and therefore was sent back to the floor. Khoi Padilla MD Chest CT 11/03/17 0000 Signed Impressions: Service Date/Time: Friday, November 03, 2017 10:16 - CONCLUSION: Scattered areas of consolidation and scattered nodular foci identified, a overall improved from the previous study however the consolidation in the right middle lobe is increased and is a change from previous studies. Chadwick Diaz MD Liver Ultrasound 10/24/17 0000 Signed Impressions: Service Date/Time: Tuesday, October 24, 2017 16:43 - CONCLUSION: Hepatosplenomegaly with ascites. Echogenic kidney Madi Mccartney MD Abdomen/Pelvis CT 10/24/17 0000 Signed Impressions: Service Date/Time: Tuesday, October 24, 2017 21:37 - CONCLUSION: 1. Hepatosplenomegaly. 2. Moderate amount of ascites. 3. Diffuse anasarca. 4. Bibasilar pleural effusions and scattered infiltrates. Khoi Padilla MD Tunnelled Chest Tube Removal 10/20/17 0000 Signed Impressions: Service Date/Time: Friday, October 20, 2017 00:00 - CONCLUSION: Uncomplicated chest tube removal. Madi Mccartney MD Upper Extremity Ultrasound 10/13/17 0000 Signed Impressions: Service Date/Time: Friday, October 13, 2017 11:25 - CONCLUSION: Normal examination. Christian Kaur MD Abdomen X-Ray 10/10/17 0000 Signed Impressions: Service Date/Time: Tuesday, October 10, 2017 16:46 - CONCLUSION: Negative for free air or obstruction. Rahul Yarbrough MD FACR Chest Tube Insertion 10/06/17 0000 Signed Impressions: Service Date/Time: Friday, October 06, 2017 15:37 - CONCLUSION: Uncomplicated chest tube placement as above. Emerson Hui MD Objective Remarks AAOx3 nad S1S2 RRR, soft 2/6 systolic murmur Abdomen soft, nt, mildly, distended Clear lungs BL +1 edema in lower extremities BL Procedures CT-guided chest tube placement on left chest. Date 10/06/17. Medications and IVs Current Medications Medications (Trade) Dose Ordered Sig/Willem Route Start Time Stop Time Status Last Admin (NS Flush) 2 ml UNSCH PRN IV FLUSH 10/03/17 21:15 10/15/17 20:58 (NS Flush) 2 ml BID IV FLUSH 10/04/17 09:00 11/16/17 09:00 (Zofran Inj) 4 mg Q6H PRN IV PUSH 10/03/17 21:15 11/11/17 11:45 (Restoril) 15 mg HS PRN PO 10/03/17 21:15 11/13/17 22:49 Miscellaneous Information 1 Q361D XX 10/03/17 21:15 (Chlorhexidine 2% Cloth) Taper DAILY@04 TOP 10/04/17 04:00 09/30/18 03:59 10/26/17 21:40 (Chlorhexidine 2% Cloth) 3 pack UNSCH PRN TOP 10/03/17 21:15 (Renita-Colace) 1 tab BID PO 10/04/17 09:00 11/15/17 21:00 (Senokot) 17.2 mg Q12H PRN PO 10/03/17 21:15 (Dulcolax Supp) 10 mg DAILY PRN RECTAL 10/03/17 21:15 10/11/17 17:08 (Lactulose Liq) 30 ml DAILY PRN PO 10/03/17 21:15 10/11/17 17:08 (Flovent Hfa 44 Mcg Inh) 2 puff BID INH 10/04/17 09:00 11/16/17 08:04 (Peridex 0.12% Liq) 15 ml BID@08,20 MT 10/04/17 20:00 11/14/17 08:00 Sodium Chloride 1,000 ml @ 0 mls/hr Q0M PRN OTHER 10/08/17 10:33 11/15/17 14:56 (Heparin Inj) 8,000 units UNSCH PRN IV FLUSH 10/08/17 10:45 Sodium Chloride 1,000 ml @ 200 mls/hr Q5H PRN IV 10/08/17 11:15 11/08/17 09:57 Sodium Chloride 1,000 ml @ 0 mls/hr Q0M PRN OTHER 10/08/17 11:15 (Mannitol Inj) 12.5 gm UNSCH PRN IV 10/08/17 11:15 11/13/17 11:06 Albumin Human 100 ml @ 60 mls/hr UNSCH PRN IV 10/08/17 11:30 11/13/17 11:05 (NS Flush) 5 ml UNSCH PRN IV FLUSH 10/08/17 11:15 11/15/17 14:56 (Heparin Inj) UNSCH PRN .XX 10/08/17 11:15 11/15/17 14:57 (Gentamicin Inj) 20 mg UNSCH PRN OTHER 10/08/17 11:15 11/15/17 14:57 (Zofran Inj) 4 mg UNSCH PRN IV PUSH 10/08/17 11:15 11/15/17 15:48 (Nitrostat Sl) 0.4 mg UNSCH PRN SL 10/08/17 11:30 (Catapres) 0.1 mg UNSCH PRN PO 10/08/17 11:30 (Epogen Inj) 10,000 units UNSCH PRN IV PUSH 10/08/17 11:30 11/15/17 14:57 (Gelfoam 12 Mm/7 Mm Top) 1 foam UNSCH PRN TOP 10/08/17 11:30 (Lactinex) 1 tab TID PO 10/17/17 13:00 11/16/17 18:07 (Duragesic 100 Mcg Patch.72 Hr) 1 patch Q3D T-DERMAL 10/18/17 12:00 11/08/17 13:18 Miscellaneous Information 1 Q3D T-DERMAL 10/21/17 12:00 11/14/17 12:00 (Albuterol Neb) 2.5 mg Q2HR NEB PRN NEB 10/21/17 13:30 11/16/17 14:18 (Protonix) 40 mg Q12HR PO 10/21/17 21:00 11/16/17 07:55 (Heparin Inj) 5,000 units Q12HR SQ 10/21/17 21:00 11/16/17 08:02 (Phoslo) 667 mg TID PO 10/23/17 13:00 11/16/17 18:06 Cefazolin Sodium 1000 mg/Sodium Chloride 100 ml @ 200 mls/hr Q12H IV 10/24/17 03:00 11/16/17 14:41 (Haldol Inj) 5 mg Q4H PRN IV PUSH 10/23/17 23:30 10/26/17 23:39 (Sodium Chloride) 1 gm DAILY PO 10/26/17 09:00 11/16/17 07:56 (Ferrous Sulfate) 325 mg BID@12,17 PO 10/27/17 12:00 11/16/17 18:07 (Tylenol) 500 mg Q6HR PO 10/31/17 00:00 11/16/17 18:07 (Roxicodone) 5 mg Q6H PRN PO 10/30/17 20:00 11/16/17 14:04 (Zanaflex) 2 mg Q8HR PO 10/30/17 22:00 11/16/17 14:03 (Atarax) 50 mg Q8H PRN PO 10/31/17 17:15 11/10/17 10:33 (Cymbalta Dr) 60 mg DAILY PO 11/03/17 12:00 11/16/17 07:56 (Neurontin) 300 mg Q24H PO 11/06/17 13:00 11/16/17 14:03 (Narcan Inj) 0.4 mg Q2M PRN IV PUSH 11/08/17 20:15 11/08/17 20:16 (Santyl Oint) 1 applic DAILY TOPICAL 11/11/17 09:00 11/16/17 09:00 (Dakin'S 0.125% Soln) 500 ml DAILY TOPICAL 11/11/17 09:00 11/16/17 09:00 (Proamatine) 10 mg TID@07,,17 PO 11/11/17 12:00 11/16/17 18:07 (Lopressor) 12.5 mg BID PO 11/11/17 21:00 11/16/17 07:56 (Pill Splitter) 1 ea UNSCH PRN OTHER 11/11/17 19:00 (Lasix Inj) 120 mg BID IV PUSH 11/16/17 21:00 A/P Problem List: (1) Endocarditis ICD Code: I38 - Endocarditis, valve unspecified Status: Acute (2) MSSA bacteremia ICD Code: R78.81 - Bacteremia (3) Tricuspid valve vegetation ICD Code: I33.0 - Acute and subacute infective endocarditis (4) IV drug abuse ICD Code: F19.10 - Other psychoactive substance abuse, uncomplicated (5) Pleural effusion, bilateral ICD Code: J90 - Pleural effusion, not elsewhere classified (6) Septic embolism ICD Code: I26.90 - Septic pulmonary embolism without acute cor pulmonale Status: Acute (7) Hepatitis C ICD Code: B19.20 - Unspecified viral hepatitis C without hepatic coma (8) Hepatosplenomegaly ICD Code: R16.2 - Hepatomegaly with splenomegaly, not elsewhere classified (9) Sacral decubitus ulcer, stage IV ICD Code: L89.154 - Pressure ulcer of sacral region, stage 4 Status: Acute (10) Anasarca ICD Code: R60.1 - Generalized edema (11) Acute systolic heart failure ICD Code: I50.21 - Acute systolic (congestive) heart failure (12) Moderate protein-calorie malnutrition ICD Code: E44.0 - Moderate protein-calorie malnutrition Status: Acute (13) Hyponatremia ICD Code: E87.1 - Hypo-osmolality and hyponatremia Status: Acute (14) ZEUS (acute kidney injury) ICD Code: N17.9 - Acute kidney failure, unspecified (15) Anemia ICD Code: D64.9 - Anemia, unspecified (16) Debility ICD Code: R53.81 - Other malaise Status: Acute (17) Transaminitis ICD Code: R74.0 - Nonspecific elevation of levels of transaminase and lactic acid dehydrogenase [LDH] Status: Resolved (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 Repeat bedside echocardiogram on 10/18 showed a similar size vegetation. Cardiology and CT surgery has followed. D/W Dr. Charles declined surgery due to active IV drug use, multiple medical complications. Discussed with [facility] who agreed with plan of our cardiothoracic surgeon. [facility] administration has denied the patient as well per CM. ID consulted. Continue IV antibiotics as per ID. Currently on IV cefazolin. (2) MSSA bacteremia Plan: Continue IV antibiotics as per ID. Last blood cultures on 10/18 negative 5. (3) Tricuspid valve vegetation Plan: Cardiology consulted and following. Dr Mirna aranda performing surgery on patient. (4) IV drug abuse Plan: The patient states he has not used drugs in 3 months. Advised and reinforced drug cessation. (5) Pleural effusion, bilateral Plan: Likely secondary to fluid overload and acute systolic heart failure. The patient hasis being dialyzed repeat chest x-ray on 11/14 showed cardiomegaly with improving bilateral perihilar edema. Moderate right pleural effusion. Images reviewed by me. We will continue to follow and repeat chest x-ray in a couple days to see evolution of pleural effusion. The patient might require thoracentesis. 11/16 repeat cxr in am. (6) Septic embolism Plan: Secondary to tricuspid valve endocarditis. 11/12 previously on 4 L nasal cannula, respiratory status improving with patient on 2 L nasal cannula. (7) Hepatitis C Plan: Hepatitis C antibody reactive. Hepatitis C viral load 13297. Hepatitis C genotype 1A. Hepatitic ultrasound revealed hepatosplenomegaly. We will refer to GI as an outpatient for treatment. (8) Hepatosplenomegaly Plan: As seen on CT of the abdomen and pelvis with moderate amount of ascites and diffuse anasarca. (9) Sacral decubitus ulcer, stage IV Plan: wound care consulted - fu recommendations. Recommended plastic surgery consult for debridement. 11/12 consult plastic surgery. Continue wound care. (10) Anasarca Plan: As evidenced by bilateral pleural effusions, ascites and anasarca described on CT abdomen and pelvis. Patient refused abdominal paracentesis. Patient being dialyzed. 11/10 For Diagnostic and therapeutic abdominal paracentesis today. SP abdominal paracentesis on 11/10. Ascitic fluid non infectious. (11) Acute systolic heart failure Plan: Echo with EF of 35-40%. Treat fluid overload with dialysis. (12) Moderate protein-calorie malnutrition Plan: Dietitian consulted, recommends liberalize diet to allow more fluid options and hopefully increase p.o. intake. Nepro twice daily with encouragement. (13) Hyponatremia Plan: On fluid restriction - continue. Sodium stable at 131. (14) ZEUS (acute kidney injury) Plan: Most likely due to ATN from sepsis and low blood pressure. HD started on 10/08. Continue dialysis as per nephrology. Dialysis currently on Friday/ and Friday schedule. Avoid nephrotoxins, continue to monitor BUN and creatinine. (15) Anemia Plan: On ferrous sulfate and Epogen as per nephrology. Anemia likely secondary to chronic kidney disease. 11/09 hemoglobin dropped from 8.9-7.7. No obvious bleeding. Continue to monitor hemoglobin and hematocrit. Transfuse as needed for hemoglobin less than 7 or symptomatic anemia. 11/12 continue Epogen with dialysis as per nephrology. Hemoglobin trending up now 9.5. (16) Debility Plan: Continue PT and OT. Patient will need to go to rehab upon discharge. (17) Transaminitis Plan: Now resolved. Continue to monitor liver function tests. Transaminitis likely secondary to sepsis and hepatitis C. 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 Pain seems to be controlled. (19) MARTÍN positive Plan: The patient also has a positive MARTÍN with a titer of 1: 40 with a diffuse pattern. This is a low pattern and the patient does not have any other symptoms consistent with rheumatic disease. Will not pursue any further testing. The patient will need to follow-up as an outpatient by his primary care physician. (20) Hypotension Plan: Unclear etiology of hypotension. However the patient is on hemodialysis and is hypoalbuminemic, also patient is on several medications to control pain including fentanyl patch, Roxicodone, gabapentin. All of these factors could be contributing to the patient's hypotension. Upon review of records the patient has been hypotensive for some time now. Patient's hypotension started on 10/31/17 and blood pressure occasionally goes up , however it is most consistently in the high 80s to low 90s systolic. Start midodrine for blood pressure support. 11/10 BP better but bp still lowin the 90's systolic. Increase Midodrine dose to 10 mg po tid. BP still borderline low, continue midodrine. Patient asymptomatic. DVT prophylaxis: SCDs, heparin subcutaneously. Discharge Planning Continue to monitor the medical floor. Pending clinical improvement and infectious disease clearance. Problem Qualifiers (1) Endocarditis: (2) Hepatitis C: (3) Anemia: (4) Hypotension: Qualified Codes: I95.9 - Hypotension, unspecified Nathan Krishnan MD Nov 16, 2017 12:51
[2017-11-16] MEDS: FERROUS SULFATE 325 MG (65 MG ELEMENTAL IRON) TAB PO SCH ×2 (14:03→18:07)
[2017-11-16] MEDS: GABAPENTIN 100 MG CAP PO SCH (14:03)
--- NOTE | 2017-11-16 14:24 | HHI.NPPN ---
Subjective Complaints: Shortness of Breath Renal Failure: Acute History of Present Illness Patient is 27-year-old male who reported to ER with body aches, 7 days of diarrhea with development fever. Past medical history of IV drug use. Patient is sedated and ventilated FiO2 at 40 %. Nephrology is consulted for ZEUS and fluid over load status. Patients creatinine is 3.02 and GFR 25ml/min. Patient is UOP at 800cc for last 24 hours. Weight has increased by over 10 kg since admission. IVF's have been stopped and lasix has been given. Patient has endocarditis with large tricuspid valve vegetation, and pulmonic vegetation. Noted to have bacteremia with hypotension with SBP in the 90's. Additional Remarks Patient is short of breath, pulled his Vas-Cath out last night Review of Systems Cardiovascular Cardiac Remarks denies CP Gastrointestinal GI Remarks No abdominal pain Psych Psych: Depression, Anxiety Objective Data Data Vital Signs Date Time Temp Pulse Resp B/P (MAP) Pulse Ox O2 Delivery O2 Flow Rate FiO2 11/16/17 12:00 97.8 89 20 96/59 (71) 96 11/16/17 08:33 96 Nasal Cannula 3.00 11/16/17 08:10 86 11/16/17 08:00 97.8 93 20 100/60 (73) 97 11/16/17 04:00 98.2 72 17 95/54 (68) 97 11/16/17 04:00 78 11/16/17 04:00 Nasal Cannula 4.00 11/16/17 00:00 82 11/16/17 00:00 98.0 70 17 91/62 (72) 98 11/15/17 21:05 Nasal Cannula 4.00 11/15/17 20:00 98.1 85 18 103/56 (72) 97 11/15/17 20:00 89 11/15/17 17:30 98.5 100 18 96/53 (67) 99 11/15/17 16:00 101 -: 11/15/17 2256 11/15/17 2256 Tubes & Lines: Vas-Cath Physical Exam General Appearance: No Acute Distress, Comfortable Eyes Eye Exam: Pupils Equal Pulmonary Resp Exam: Breath Sounds Equal, Crackles, Rhonchi, Decreased Bases, Diminished Breath Sounds Cardiology CV Exam: Regular, Murmur Gastrointestinal/Abdomen GI Exam: Soft, Non-Tender, Bowel Sounds Present, Distended Integumentary Skin Exam: Clear, Warm Extremeties Extremities Exam: Trace Edema Neurologic Neuro Exam: Awake Psychiatric Psych Exam: Appropriate Responses Assessment/Plan Assessment Summary: ZEUS/Acute Renal Failure Electrolyte Assessment: Hyponatremia Problem List: (1) ZEUS (acute kidney injury) ICD Codes: N17.9 - Acute kidney failure, unspecified Plan: ZEUS most likely ATN from sepsis and low blood pressure. Other differential will be ATN, Acute interstitial nephritis, and Post infectious GN,unlikely. HD started on 10/08 Plan Dialysis currently through vas cath, he pulled it out requests another Vas-Cath in the morning He is short of breath today his dialysis was yesterday 3 L were removed Given higher dose of Lasix 100 mg in followed by 120 mg twice a day Care of breathing treatment DuoNeb He has urine output Acute tubular necrosis is resolving creatinine was 3.46 Dr. Tapia to follow (2) Sepsis ICD Codes: A41.9 - Sepsis, unspecified organism Status: Acute Plan: Antibiotics per ID (3) Endocarditis ICD Codes: I38 - Endocarditis, valve unspecified Status: Acute Plan: antibiotics renal dosing Problem Qualifiers (1) Sepsis: Qualified Codes: A41.9 - Sepsis, unspecified organism (2) Endocarditis: Sofie De Los Santos MD Nov 16, 2017 14:24
[2017-11-16] MEDS ORDERED: RESP: ALBUTEROL 2.5 MG/IPRATROPIUM 0.5 MG NEB (SCH) NEB ONE (15:00)
[2017-11-16] MEDS ORDERED: FUROSEMIDE 100 MG/10 ML VIAL IV PUSH ONE (15:00)
[2017-11-16 16:13] LABS: CALCIUM 7.6 MG/DL (8.5-10.1); CREATININE 3.62 MG/DL (0.60-1.30)
[2017-11-16] MEDS: FUROSEMIDE 100 MG/10 ML VIAL IV PUSH SCH (20:43)
[2017-11-17] VITALS (8 sets, daily range): BP systolic 102–113; BP diastolic 58–73; PULSE 85–115; RESP 18–20; TEMP 96–98.4; O2SAT 91–100
[2017-11-17] MEDS: ACETAMINOPHEN 500 MG CPLT PO SCH ×4 (00:01→22:34)
[2017-11-17] MEDS: CHLORHEXIDINE GLUCONATE 2 % 1 PACK (2 CLOTHS) TOP SCH (04:00)
[2017-11-17 05:40] LABS: BICARBONATE 28.2 MEQ/L (21.0-32.0); CALCIUM 7.3 MG/DL (8.5-10.1); CREATININE 3.57 MG/DL (0.60-1.30); MAGNESIUM 1.5 MG/DL (1.5-2.5); PHOSPHORUS 3.7 MG/DL (2.5-4.9)
[2017-11-17] MEDS: MIDODRINE 5 MG TAB PO SCH ×3 (05:57→18:15)
[2017-11-17 06:00] LABS: TOTAL PROTEIN 7.3 GM/DL (6.4-8.2)
[2017-11-17 06:04] LABS: CALCIUM-PROTEIN CORRECTED 7.3 MG/DL (8.5-10.1)
[2017-11-17 06:11] LABS: AUTOMATED NEUTROPHIL # 5.5 TH/MM3 (1.8-7.7); BASOPHIL # 0.1 TH/MM3 (0-0.2); BASOPHIL % 1.2 % (0.0-2.0); EOSINOPHIL # 0.3 TH/MM3 (0-0.4); EOSINOPHIL % 4.3 % (0.0-4.0); HEMATOCRIT 25.1 % (39.0-51.0); HEMOGLOBIN 8.4 GM/DL (13.0-17.0); LYMPH % 11.7 % (9.0-44.0); LYMPHOCYTE # 0.9 TH/MM3 (1.0-4.8); MEAN CELL VOLUME 87.3 FL (80.0-100.0); MEAN CORPUSCULAR HEMOGLOBIN 29.2 PG (27.0-34.0); MEAN CORPUSCULAR HGB CONC 33.5 % (32.0-36.0); MEAN PLATELET VOLUME 8.5 FL (7.0-11.0); MONO % 7.1 % (0.0-8.0); MONOCYTE # 0.5 TH/MM3 (0-0.9); NEUT % 75.7 % (16.0-70.0); PLATELET COUNT 108 TH/MM3 (150-450); RED BLOOD COUNT 2.88 MIL/MM3 (4.50-5.90); RED CELL DISTRIBUTION WIDTH 21.2 % (11.6-17.2); WHITE BLOOD COUNT 7.3 TH/MM3 (4.0-11.0)
[2017-11-17] MEDS: RESP: ALBUTEROL 2.5 MG/3 ML NEB (PRN) NEB ×3 (06:12→15:25)
[2017-11-17] MEDS ORDERED: POTASSIUM CHLORIDE 20 MEQ CONTROLLED RELEASE TAB PO ONE (06:15)
[2017-11-17] MEDS ORDERED: CALCIUM GLUCONATE INJ 2 GM in DEXTROSE 5% IN WATER 100ML INJ 100 ML IV ONE ×2 (06:15)
[2017-11-17] MEDS: SODIUM CHLORIDE 0.9% FLUSH 10 ML FLUSH IV FLUSH PRN (06:46)
[2017-11-17 07:57] LABS: OVALOCYTES 1+ (NORMAL)
[2017-11-17] MEDS: CHLORHEXIDINE 0.12% (ORAL KIT) 15 ML CUP MT SCH ×2 (08:00→20:00)
[2017-11-17] MEDS: SODIUM CHLORIDE 1 GRAM TAB PO SCH (09:20)
[2017-11-17] MEDS: LACTOBACILLUS ACIDOPHILUS TAB PO SCH ×3 (09:21→18:15)
[2017-11-17] MEDS: PANTOPRAZOLE SOD 40 MG DELAYED RELEASE TAB PO SCH ×2 (09:21→22:35)
[2017-11-17] MEDS: CALCIUM ACETATE 667 MG CAP PO SCH ×3 (09:21→18:14)
[2017-11-17] MEDS: DOCUSATE SODIUM 50 MG/SENNA 8.6 MG TAB PO SCH ×2 (09:21→22:35)
[2017-11-17] MEDS: METOPROLOL TARTRATE 25 MG TAB PO SCH ×2 (09:22→22:33)
[2017-11-17] MEDS: DULoxetine HCl DR 60 MG CAP PO SCH (09:22)
[2017-11-17] MEDS: HEPARIN SODIUM - SQ 10,000 UNITS/ML VIAL SQ SCH ×2 (09:22→22:35)
[2017-11-17] MEDS: SODIUM CHLORIDE 0.9% FLUSH 10 ML FLUSH IV FLUSH SCH ×2 (09:25→22:34)
[2017-11-17] MEDS: FLUTICASONE PROPIONATE 44 MCG/ACT 10.6 GM INHALER INH SCH ×2 (09:26→21:00)
[2017-11-17] MEDS: COLLAGENASE OINT 30 GM TUBE TOPICAL SCH (09:26)
[2017-11-17] MEDS: SODIUM HYPOCHLORITE 0.125% 500 ML BTL TOPICAL SCH (09:27)
[2017-11-17] MEDS: FUROSEMIDE 100 MG/10 ML VIAL IV PUSH SCH ×2 (11:54→22:35)
--- NOTE | 2017-11-17 11:57 | HHI.IDPN ---
Subjective Subjective Remarks is a 27 y/o CM with remote history of IV drug abuse, states he last used heroin 2 months ago, presents for evaluation of body aches, 7 days of diarrhea with development of subjective fever yesterday. Patient denies any nausea or vomiting. He denies any chest pain. This has developed within the last 24 hours. Patient does have a cough with clear sputum. Denies any prior history of endocarditis. Denies any abdominal pain. Does report some left back pain, worse while lying flat. He is well reports generalized weakness. Patient met criteria for sepsis on admission. Flu antigen negative. CXR with bilateral infiltrates. performed a bedside 2D ECHO and verbally reported a large ~4.5 cm vegetation on TV. CXR suspicious for septic emboli. Blood cultures drawn but it appears patient has received augmentin at some point and cultures may possibly be negative. ID is following for evaluation and M'ment of Severe Sepsis and Endocarditis. Notes reviewed Peritoneal fluid C/S negative so far, negative for malignant cells HD T//SA through vas cath Patient is afebrile he complains of increased SOB, cough with persistent sputum production, now on supplemental oxygen states he feels awful today denies any diarrhea No rash HR 101 WBC WNL No rash Antibiotics Ancef Current Medications Medications (Trade) Dose Ordered Sig/Willem Route Start Time Stop Time Status Last Admin (NS Flush) 2 ml UNSCH PRN IV FLUSH 10/03/17 21:15 10/15/17 20:58 (NS Flush) 2 ml BID IV FLUSH 10/04/17 09:00 11/10/17 09:58 (Zofran Inj) 4 mg Q6H PRN IV PUSH 10/03/17 21:15 11/05/17 12:44 (Restoril) 15 mg HS PRN PO 10/03/17 21:15 10/27/17 20:29 Miscellaneous Information 1 Q361D XX 10/03/17 21:15 (Chlorhexidine 2% Cloth) Taper DAILY@04 TOP 10/04/17 04:00 09/30/18 03:59 10/26/17 21:40 (Chlorhexidine 2% Cloth) 3 pack UNSCH PRN TOP 10/03/17 21:15 (Renita-Colace) 1 tab BID PO 2/10/18 09:00 11/09/17 09:15 (Senokot) 17.2 mg Q12H PRN PO 10/03/17 21:15 (Dulcolax Supp) 10 mg DAILY PRN RECTAL 10/03/17 21:15 10/11/17 17:08 (Lactulose Liq) 30 ml DAILY PRN PO 10/03/17 21:15 10/11/17 17:08 (Flovent Hfa 44 Mcg Inh) 2 puff BID INH 10/04/17 09:00 11/10/17 09:58 (Peridex 0.12% Liq) 15 ml BID@08,20 MT 10/04/17 20:00 11/10/17 10:13 Sodium Chloride 1,000 ml @ 0 mls/hr Q0M PRN OTHER 10/08/17 10:33 10/25/17 10:39 (Heparin Inj) 8,000 units UNSCH PRN IV FLUSH 10/08/17 10:45 Sodium Chloride 1,000 ml @ 200 mls/hr Q5H PRN IV 10/08/17 11:15 11/08/17 09:57 Sodium Chloride 1,000 ml @ 0 mls/hr Q0M PRN OTHER 10/08/17 11:15 (Mannitol Inj) 12.5 gm UNSCH PRN IV 10/08/17 11:15 11/06/17 14:30 Albumin Human 100 ml @ 60 mls/hr UNSCH PRN IV 10/08/17 11:30 11/06/17 14:30 (NS Flush) 5 ml UNSCH PRN IV FLUSH 10/08/17 11:15 10/25/17 10:40 (Heparin Inj) UNSCH PRN .XX 10/08/17 11:15 11/08/17 09:57 (Gentamicin Inj) 20 mg UNSCH PRN OTHER 10/08/17 11:15 11/08/17 09:58 (Zofran Inj) 4 mg UNSCH PRN IV PUSH 10/08/17 11:15 (Nitrostat Sl) 0.4 mg UNSCH PRN SL 10/08/17 11:30 (Catapres) 0.1 mg UNSCH PRN PO 10/08/17 11:30 (Epogen Inj) 10,000 units UNSCH PRN IV PUSH 10/08/17 11:30 11/08/17 09:58 (Gelfoam 12 Mm/7 Mm Top) 1 foam UNSCH PRN TOP 10/08/17 11:30 (Lactinex) 1 tab TID PO 10/17/17 13:00 11/10/17 10:10 (Duragesic 100 Mcg Patch.72 Hr) 1 patch Q3D T-DERMAL 10/18/17 12:00 11/08/17 13:18 Miscellaneous Information 1 Q3D T-DERMAL 10/21/17 12:00 11/08/17 13:18 (Santyl Oint) 1 applic DAILY TOPICAL 10/20/17 16:00 11/10/17 10:22 (Albuterol Neb) 2.5 mg Q2HR NEB PRN NEB 10/21/17 13:30 11/10/17 10:35 (Protonix) 40 mg Q12HR PO 10/21/17 21:00 11/10/17 09:57 (Heparin Inj) 5,000 units Q12HR SQ 10/21/17 21:00 11/09/17 22:27 (Phoslo) 667 mg TID PO 10/23/17 13:00 11/10/17 09:57 Cefazolin Sodium 1000 mg/Sodium Chloride 100 ml @ 200 mls/hr Q12H IV 10/24/17 03:00 11/10/17 02:02 (Haldol Inj) 5 mg Q4H PRN IV PUSH 10/23/17 23:30 10/26/17 23:39 (Lopressor) 25 mg Q8HR PO 10/25/17 22:00 11/03/17 14:24 (Sodium Chloride) 1 gm DAILY PO 10/26/17 09:00 11/10/17 09:57 (Ferrous Sulfate) 325 mg BID@12,17 PO 10/27/17 12:00 11/09/17 17:25 (Tylenol) 500 mg Q6HR PO 10/31/17 00:00 11/10/17 06:09 (Roxicodone) 5 mg Q6H PRN PO 10/30/17 20:00 11/10/17 10:10 (Zanaflex) 2 mg Q8HR PO 10/30/17 22:00 11/10/17 06:09 (Atarax) 50 mg Q8H PRN PO 10/31/17 17:15 11/10/17 10:33 (Cymbalta Dr) 60 mg DAILY PO 11/03/17 12:00 11/10/17 09:57 (Neurontin) 300 mg Q24H PO 11/06/17 13:00 11/09/17 11:43 (Narcan Inj) 0.4 mg Q2M PRN IV PUSH 11/08/17 20:15 11/08/17 20:16 (Proamatine) 5 mg TID@07,12,17 PO 11/09/17 17:00 11/10/17 06:09 Albumin Human 0 ml @ 60 mls/hr ONCE ONCE IV 11/10/17 13:00 11/10/17 13:01 UNV Lines Line sites with no e.o infection Past Medical History Asthma HCV Past Surgical History No surgical history per records. (Jacqueline Solorzano) Allergies: Coded Allergies: erythromycin base (Verified Allergy, Severe, Nausea/Vomiting, 10/03/17) raspberry (Unverified Allergy, Mild, 10/03/17) Objective . Vital Signs Date Time Temp Pulse Resp B/P (MAP) Pulse Ox O2 Delivery O2 Flow Rate FiO2 11/17/17 09:10 101 11/17/17 08:00 97.6 99 20 109/66 (80) 91 11/17/17 03:40 102 11/17/17 03:36 Room Air 11/17/17 03:35 97.6 88 20 102/62 (75) 91 11/17/17 00:00 Nasal Cannula 4.00 11/17/17 00:00 96.0 85 18 104/60 (75) 99 11/16/17 23:41 86 11/16/17 22:16 95 Nasal Cannula 4.00 11/16/17 20:39 Nasal Cannula 4.00 11/16/17 20:00 97.6 85 20 105/59 (74) 97 11/16/17 19:43 84 11/16/17 16:00 83 11/16/17 16:00 97.5 90 20 94/56 (69) 96 11/16/17 12:00 97.8 89 20 96/59 (71) 96 11/16/17 12:00 94 11/17/17 11/17/17 11/18/17 15:00 23:00 07:00 Intake Total 300 ml Output Total 1600 ml Balance -1300 ml Intake Oral 300 ml Output Urine Total 1600 ml . Laboratory Tests Test 11/15/17 22:56 11/17/17 03:50 White Blood Count 8.9 TH/MM3 7.3 TH/MM3 Red Blood Count 2.85 MIL/MM3 2.88 MIL/MM3 Hemoglobin 8.8 GM/DL 8.4 GM/DL Hematocrit 24.8 % 25.1 % Mean Corpuscular Volume 87.0 FL 87.3 FL Mean Corpuscular Hemoglobin 31.0 PG 29.2 PG Mean Corpuscular Hemoglobin Concent 35.6 % 33.5 % Red Cell Distribution Width 21.4 % 21.2 % Platelet Count 90 TH/MM3 108 TH/MM3 Mean Platelet Volume 8.5 FL 8.5 FL Neutrophils (%) (Auto) 73.9 % 75.7 % Lymphocytes (%) (Auto) 12.3 % 11.7 % Monocytes (%) (Auto) 8.5 % 7.1 % Eosinophils (%) (Auto) 4.2 % 4.3 % Basophils (%) (Auto) 1.1 % 1.2 % Neutrophils # (Auto) 6.6 TH/MM3 5.5 TH/MM3 Lymphocytes # (Auto) 1.1 TH/MM3 0.9 TH/MM3 Monocytes # (Auto) 0.8 TH/MM3 0.5 TH/MM3 Eosinophils # (Auto) 0.4 TH/MM3 0.3 TH/MM3 Basophils # (Auto) 0.1 TH/MM3 0.1 TH/MM3 CBC Comment AUTO DIFF AUTO DIFF Differential Comment AUTO DIFF CONFIRMED AUTO DIFF CONFIRMED Toxic Granulation 2+ Platelet Estimate LOW LOW Platelet Morphology Comment NORMAL NORMAL Basophilic Stippling FAINT Acanthocytes OCC Ovalocytes 1+ Laboratory Tests Test 11/15/17 22:56 11/16/17 14:40 11/17/17 03:50 Blood Urea Nitrogen 23 MG/DL 26 MG/DL 29 MG/DL Creatinine 3.46 MG/DL 3.62 MG/DL 3.57 MG/DL Random Glucose 94 MG/DL 81 MG/DL 76 MG/DL Total Protein 7.2 GM/DL 7.3 GM/DL Albumin 2.5 GM/DL Calcium Level 7.8 MG/DL 7.6 MG/DL 7.3 MG/DL Phosphorus Level 3.7 MG/DL 3.7 MG/DL Magnesium Level 1.7 MG/DL 1.5 MG/DL Alkaline Phosphatase 65 U/L Aspartate Amino Transf (AST/SGOT) 6 U/L Alanine Aminotransferase (ALT/SGPT) LESS THAN 6 U/L Total Bilirubin 1.0 MG/DL Sodium Level 133 MEQ/L 132 MEQ/L 132 MEQ/L Potassium Level 3.5 MEQ/L 3.8 MEQ/L 3.4 MEQ/L Chloride Level 94 MEQ/L 93 MEQ/L 93 MEQ/L Carbon Dioxide Level 27.2 MEQ/L 27.0 MEQ/L 28.2 MEQ/L Anion Gap 12 MEQ/L 12 MEQ/L 11 MEQ/L Estimat Glomerular Filtration Rate 22 ML/MIN 20 ML/MIN 21 ML/MIN Protein Corrected Calcium 7.3 MG/DL Imaging Chest X-Ray 10/30/17 0000 Signed Impressions: Service Date/Time: October 17:04 - CONCLUSION: Increasing bilateral scattered pulmonary infiltrates compared to the prior study. Victorino Vang MD Liver Ultrasound 10/24/17 0000 Signed Impressions: Service Date/Time: Tuesday, October 24, 2017 16:43 - CONCLUSION: Hepatosplenomegaly with ascites. Echogenic kidney Madi Mccartney MD Abdomen/Pelvis CT 10/24/17 0000 Signed Impressions: Service Date/Time: Tuesday, October 24, 2017 21:37 - CONCLUSION: 1. Hepatosplenomegaly. 2. Moderate amount of ascites. 3. Diffuse anasarca. 4. Bibasilar pleural effusions and scattered infiltrates. Khoi Padilla MD Tunnelled Chest Tube Removal 10/20/17 0000 Signed Impressions: Service Date/Time: Friday, October 20, 2017 00:00 - CONCLUSION: Uncomplicated chest tube removal. Madi Mccartney MD Chest CT 10/14/17 0000 Signed Impressions: Service Date/Time: Saturday, October 14, 2017 00:26 - CONCLUSION: 1. Bilateral scattered pulmonary nodules are again noted. Several of the right nodules are now cavitary and likely represent septic emboli given the history of IV drug abuse. 2. Interval placement of bilateral chest tubes with small pleural effusions noted. 3. Dense consolidation remains in the posterior lower lobes. Jorge Jang MD Upper Extremity Ultrasound 10/13/17 0000 Signed Impressions: Service Date/Time: Friday, October 13, 2017 11:25 - CONCLUSION: Normal examination. Christian Kaur MD Abdomen X-Ray 10/10/17 0000 Signed Impressions: Service Date/Time: Tuesday, October 10, 2017 16:46 - CONCLUSION: Negative for free air or obstruction. Rahul Yarbrough MD FACR Chest Tube Insertion 10/06/17 0000 Signed Impressions: Service Date/Time: Friday, October 06, 2017 15:37 - CONCLUSION: Uncomplicated chest tube placement as above. Emerson Hui MD Physical Exam GENERAL: WDWN male, INAD. Awake and alert. SKIN: No generalized rash. Cool and dry. Multiple tattoos. HEAD: Atraumatic. Normocephalic. EYES: Pupils equal round and reactive. Extraocular motions intact. No petechia, no hemorrhage ENT: Moist oral mucosa, no nasal drainage NECK: Trachea midline. Supple, nontender, no meningeal signs. CARDIOVASCULAR: Has systolic murmur RESPIRATORY: Decreased air entry bilaterally bases. GASTROINTESTINAL: Abdomen soft, not tender, distended (+) BS. MUSCULOSKELETAL: Extremities without clubbing, cyanosis. (+) bilateral pedal edema, improved. No embolic lesion seen. NEUROLOGICAL: Awake and alert, follows commands Psych cooperative IV line sites with no e.o infection. 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 MR. Ascites: likely from 3rd spacing. Bilateral pleural effusions: left side appears loculated possible empyema. Pneumonia: septic emboli, aspiration pneumonia. - CT chest 11/03 improving - sputum culture with normal respiratory heri - 11/17 increased dyspnea. Patient is afebrile. Requiring 4LNC. Respiratory failure, self extubated 10/17 IVDA: heroin, cocaine and methamphetamine. Acute renal failure: Sepsis, meds, contrast. - on HD // Low platelets: ? meds, sepsis. HIT, stable. Ascites: 3rd spacing vs infection related. Recs: Continue Ancef IV (for MSSA TV endocarditis) Repeat Sputum Cx Repeat CXR ordered showing pleural thickening and/or fluid right lateral chest wall, mild pulmonary edema Dyspnea may improve after HD tomorrow Will consider CT chest after HD, will discuss with Nephrology 2D ECHO moderate to severe TR. Follow peritoneal fluid analysis - no growth in 72hrs Monitor progress (Jacqueline Solorzano) Remarks The exam, history, and the medical decision-making described in the above note were completed with the assistance of the mid-level provider. I reviewed the historical facts with patient again, along with pertinent ROS and performed an independent physical examination. I agree with the findings presented. I attest that I had a [id number] encounter with the patient on the same day, and personally performed and documented my assessment/plan and findings in the medical record. Follow clinically. If SOB persists may need repeat CT with PE protocol but need to check with Nephrology. Clinically appears improved compared to when last seen by me approx 10 days back. (Lakia Macias MD) Jacqueline Solorzano Nov 17, 2017 11:57 Lakia Macias MD Nov 17, 2017 21:24
[2017-11-17] MEDS: fentaNYL 100 MCG/HR PATCH T-DERMAL SCH (12:00)
[2017-11-17] MEDS: REMOVE OLD PATCH T-DERMAL SCH (12:00)
[2017-11-17] MEDS: GABAPENTIN 100 MG CAP PO SCH (12:53)
[2017-11-17] MEDS: FERROUS SULFATE 325 MG (65 MG ELEMENTAL IRON) TAB PO SCH ×2 (12:53→18:15)
[2017-11-17] MEDS ORDERED: CALCIUM CHLORIDE INJ 2 GM in DEXTROSE 5% IN WATER 100ML INJ 100 ML IV ONE ×2 (13:00)
--- NOTE | 2017-11-17 13:20 | HHI.PR ---
Subjective Remarks Patient states he feels horrible states has been coughin a lot. Denies fevers or chills Afebrile Still on 4 liters nasal canula Objective Vitals Vital Signs Date Time Temp Pulse Resp B/P (MAP) Pulse Ox O2 Delivery O2 Flow Rate FiO2 11/17/17 12:00 105 11/17/17 12:00 97.7 105 20 102/62 (75) 100 11/17/17 09:10 101 11/17/17 08:00 97.6 99 20 109/66 (80) 91 11/17/17 08:00 Nasal Cannula 4.00 11/17/17 03:40 102 11/17/17 03:36 Room Air 11/17/17 03:35 97.6 88 20 102/62 (75) 91 11/17/17 00:00 Nasal Cannula 4.00 11/17/17 00:00 96.0 85 18 104/60 (75) 99 11/16/17 23:41 86 11/16/17 22:16 95 Nasal Cannula 4.00 11/16/17 20:39 Nasal Cannula 4.00 11/16/17 20:00 97.6 85 20 105/59 (74) 97 11/16/17 19:43 84 11/16/17 16:00 83 11/16/17 16:00 97.5 90 20 94/56 (69) 96 I/O 11/16/17 11/16/17 11/16/17 11/17/17 11/17/17 11/17/17 07:00 15:00 23:00 07:00 15:00 23:00 Intake Total 100 ml 480 ml 100 ml 300 ml Output Total 400 ml 600 ml 1600 ml Balance -300 ml -120 ml 100 ml -1300 ml Intake Oral 480 ml 300 ml IV Total 100 ml 100 ml Output Urine Total 400 ml 600 ml 1600 ml # Bowel Movements 1 Result Diagram: 11/17/17 0350 11/17/17 0350 Imaging Last Impressions Chest X-Ray 11/14/17 0000 Signed Impressions: Service Date/Time: Tuesday, November 14, 2017 14:46 - CONCLUSION: Cardiomegaly with improving bilateral perihilar edema. Moderate right pleural effusion. Chaitanya Copeland MD Cyst Biopsy Asp-Paracentesis US 11/10/17 0000 Signed Impressions: Service Date/Time: Friday, November 10, 2017 10:52 - CONCLUSION: Uncomplicated ultrasound guided paracentesis. Madi Mccartney MD Abdomen Ultrasound 11/07/17 0000 Signed Impressions: Service Date/Time: Tuesday, November 07, 2017 11:36 - CONCLUSION: Moderate amount of ascites confirmed for subsequent paracentesis but the patient refused the procedure and therefore was sent back to the floor. Khoi Padilla MD Chest CT 11/03/17 0000 Signed Impressions: Service Date/Time: Friday, November 03, 2017 10:16 - CONCLUSION: Scattered areas of consolidation and scattered nodular foci identified, a overall improved from the previous study however the consolidation in the right middle lobe is increased and is a change from previous studies. Chadwick Diaz MD Liver Ultrasound 10/24/17 0000 Signed Impressions: Service Date/Time: Tuesday, October 24, 2017 16:43 - CONCLUSION: Hepatosplenomegaly with ascites. Echogenic kidney Madi Mccartney MD Abdomen/Pelvis CT 10/24/17 0000 Signed Impressions: Service Date/Time: Tuesday, October 24, 2017 21:37 - CONCLUSION: 1. Hepatosplenomegaly. 2. Moderate amount of ascites. 3. Diffuse anasarca. 4. Bibasilar pleural effusions and scattered infiltrates. Khoi Padilla MD Tunnelled Chest Tube Removal 10/20/17 0000 Signed Impressions: Service Date/Time: Friday, October 20, 2017 00:00 - CONCLUSION: Uncomplicated chest tube removal. Madi Mccartney MD Upper Extremity Ultrasound 10/13/17 0000 Signed Impressions: Service Date/Time: Friday, October 13, 2017 11:25 - CONCLUSION: Normal examination. Christian Kaur MD Abdomen X-Ray 10/10/17 0000 Signed Impressions: Service Date/Time: Tuesday, October 10, 2017 16:46 - CONCLUSION: Negative for free air or obstruction. Rahul Yarbrough MD FACR Chest Tube Insertion 10/06/17 0000 Signed Impressions: Service Date/Time: Friday, October 06, 2017 15:37 - CONCLUSION: Uncomplicated chest tube placement as above. Emerson Hui MD Objective Remarks AAOx3 nad S1S2 RRR, soft 2/6 systolic murmur Abdomen soft, nt, mildly, distended Clear lungs BL +1 edema in lower extremities BL Procedures CT-guided chest tube placement on left chest. Date 10/06/17. Medications and IVs Current Medications Medications (Trade) Dose Ordered Sig/Willem Route Start Time Stop Time Status Last Admin (NS Flush) 2 ml UNSCH PRN IV FLUSH 10/03/17 21:15 11/17/17 06:46 (NS Flush) 2 ml BID IV FLUSH 10/04/17 09:00 11/17/17 09:25 (Zofran Inj) 4 mg Q6H PRN IV PUSH 10/03/17 21:15 11/11/17 11:45 (Restoril) 15 mg HS PRN PO 10/03/17 21:15 11/13/17 22:49 Miscellaneous Information 1 Q361D XX 10/03/17 21:15 (Chlorhexidine 2% Cloth) Taper DAILY@04 TOP 10/04/17 04:00 09/30/18 03:59 10/26/17 21:40 (Chlorhexidine 2% Cloth) 3 pack UNSCH PRN TOP 10/03/17 21:15 (Renita-Colace) 1 tab BID PO 10/04/17 09:00 11/17/17 09:21 (Senokot) 17.2 mg Q12H PRN PO 10/03/17 21:15 (Dulcolax Supp) 10 mg DAILY PRN RECTAL 10/03/17 21:15 10/11/17 17:08 (Lactulose Liq) 30 ml DAILY PRN PO 10/03/17 21:15 10/11/17 17:08 (Flovent Hfa 44 Mcg Inh) 2 puff BID INH 10/04/17 09:00 11/17/17 09:26 (Peridex 0.12% Liq) 15 ml BID@08,20 MT 10/04/17 20:00 11/14/17 08:00 Sodium Chloride 1,000 ml @ 0 mls/hr Q0M PRN OTHER 10/08/17 10:33 11/15/17 14:56 (Heparin Inj) 8,000 units UNSCH PRN IV FLUSH 10/08/17 10:45 Sodium Chloride 1,000 ml @ 200 mls/hr Q5H PRN IV 10/08/17 11:15 11/08/17 09:57 Sodium Chloride 1,000 ml @ 0 mls/hr Q0M PRN OTHER 10/08/17 11:15 (Mannitol Inj) 12.5 gm UNSCH PRN IV 10/08/17 11:15 11/13/17 11:06 Albumin Human 100 ml @ 60 mls/hr UNSCH PRN IV 10/08/17 11:30 11/13/17 11:05 (NS Flush) 5 ml UNSCH PRN IV FLUSH 10/08/17 11:15 11/15/17 14:56 (Heparin Inj) UNSCH PRN .XX 10/08/17 11:15 11/15/17 14:57 (Gentamicin Inj) 20 mg UNSCH PRN OTHER 10/08/17 11:15 11/15/17 14:57 (Zofran Inj) 4 mg UNSCH PRN IV PUSH 10/08/17 11:15 11/15/17 15:48 (Nitrostat Sl) 0.4 mg UNSCH PRN SL 10/08/17 11:30 (Catapres) 0.1 mg UNSCH PRN PO 10/08/17 11:30 (Epogen Inj) 10,000 units UNSCH PRN IV PUSH 10/08/17 11:30 11/15/17 14:57 (Gelfoam 12 Mm/7 Mm Top) 1 foam UNSCH PRN TOP 10/08/17 11:30 (Lactinex) 1 tab TID PO 10/17/17 13:00 11/17/17 12:53 (Duragesic 100 Mcg Patch.72 Hr) 1 patch Q3D T-DERMAL 10/18/17 12:00 11/08/17 13:18 Miscellaneous Information 1 Q3D T-DERMAL 10/21/17 12:00 11/14/17 12:00 (Albuterol Neb) 2.5 mg Q2HR NEB PRN NEB 10/21/17 13:30 11/17/17 10:21 (Protonix) 40 mg Q12HR PO 10/21/17 21:00 11/17/17 09:21 (Heparin Inj) 5,000 units Q12HR SQ 10/21/17 21:00 11/17/17 09:22 (Phoslo) 667 mg TID PO 10/23/17 13:00 11/17/17 09:21 Cefazolin Sodium 1000 mg/Sodium Chloride 100 ml @ 200 mls/hr Q12H IV 10/24/17 03:00 11/17/17 02:30 (Haldol Inj) 5 mg Q4H PRN IV PUSH 10/23/17 23:30 10/26/17 23:39 (Sodium Chloride) 1 gm DAILY PO 10/26/17 09:00 11/17/17 09:20 (Ferrous Sulfate) 325 mg BID@12,17 PO 10/27/17 12:00 11/17/17 12:53 (Tylenol) 500 mg Q6HR PO 10/31/17 00:00 11/17/17 12:53 (Roxicodone) 5 mg Q6H PRN PO 10/30/17 20:00 11/17/17 09:20 (Zanaflex) 2 mg Q8HR PO 10/30/17 22:00 11/17/17 05:56 (Atarax) 50 mg Q8H PRN PO 10/31/17 17:15 11/10/17 10:33 (Cymbalta Dr) 60 mg DAILY PO 11/03/17 12:00 11/17/17 09:22 (Neurontin) 300 mg Q24H PO 11/06/17 13:00 11/17/17 12:53 (Narcan Inj) 0.4 mg Q2M PRN IV PUSH 11/08/17 20:15 11/08/17 20:16 (Santyl Oint) 1 applic DAILY TOPICAL 11/11/17 09:00 11/17/17 09:26 (Dakin'S 0.125% Soln) 500 ml DAILY TOPICAL 11/11/17 09:00 11/17/17 09:27 (Proamatine) 10 mg TID@07,12,17 PO 11/11/17 12:00 11/17/17 12:53 (Lopressor) 12.5 mg BID PO 11/11/17 21:00 11/17/17 09:22 (Pill Splitter) 1 ea UNSCH PRN OTHER 11/11/17 19:00 (Lasix Inj) 120 mg BID IV PUSH 11/16/17 21:00 11/17/17 11:54 A/P Problem List: (1) Endocarditis ICD Code: I38 - Endocarditis, valve unspecified Status: Acute (2) MSSA bacteremia ICD Code: R78.81 - Bacteremia (3) Tricuspid valve vegetation ICD Code: I33.0 - Acute and subacute infective endocarditis (4) IV drug abuse ICD Code: F19.10 - Other psychoactive substance abuse, uncomplicated (5) Pleural effusion, bilateral ICD Code: J90 - Pleural effusion, not elsewhere classified (6) Septic embolism ICD Code: I26.90 - Septic pulmonary embolism without acute cor pulmonale Status: Acute (7) Hepatitis C ICD Code: B19.20 - Unspecified viral hepatitis C without hepatic coma (8) Hepatosplenomegaly ICD Code: R16.2 - Hepatomegaly with splenomegaly, not elsewhere classified (9) Sacral decubitus ulcer, stage IV ICD Code: L89.154 - Pressure ulcer of sacral region, stage 4 Status: Acute (10) Anasarca ICD Code: R60.1 - Generalized edema (11) Acute systolic heart failure ICD Code: I50.21 - Acute systolic (congestive) heart failure (12) Moderate protein-calorie malnutrition ICD Code: E44.0 - Moderate protein-calorie malnutrition Status: Acute (13) Hyponatremia ICD Code: E87.1 - Hypo-osmolality and hyponatremia Status: Acute (14) ZEUS (acute kidney injury) ICD Code: N17.9 - Acute kidney failure, unspecified (15) Anemia ICD Code: D64.9 - Anemia, unspecified (16) Debility ICD Code: R53.81 - Other malaise Status: Acute (17) Transaminitis ICD Code: R74.0 - Nonspecific elevation of levels of transaminase and lactic acid dehydrogenase [LDH] Status: Resolved (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 Repeat bedside echocardiogram on 10/18 showed a similar size vegetation. Cardiology and CT surgery has followed. D/W Dr. Charles declined surgery due to active IV drug use, multiple medical complications. Discussed with [facility] who agreed with plan of our cardiothoracic surgeon. [facility] administration has denied the patient as well per CM. ID consulted. Continue IV antibiotics as per ID. Currently on IV cefazolin. (2) MSSA bacteremia Plan: Continue IV antibiotics as per ID. Last blood cultures on 10/18 negative 5. (3) Tricuspid valve vegetation Plan: Cardiology consulted and following. Dr Mirna aranda performing surgery on patient. (4) IV drug abuse Plan: The patient states he has not used drugs in 3 months. Advised and reinforced drug cessation. (5) Pleural effusion, bilateral Plan: Likely secondary to fluid overload and acute systolic heart failure. The patient hasis being dialyzed repeat chest x-ray on 11/14 showed cardiomegaly with improving bilateral perihilar edema. Moderate right pleural effusion. Images reviewed by me. We will continue to follow and repeat chest x-ray in a couple days to see evolution of pleural effusion. The patient might require thoracentesis. 11/17 Patient coughing - check CXR. (6) Septic embolism Plan: Secondary to tricuspid valve endocarditis. 11/12 previously on 4 L nasal cannula, respiratory status improving with patient on 2 L nasal cannula. (7) Hepatitis C Plan: Hepatitis C antibody reactive. Hepatitis C viral load 83250. Hepatitis C genotype 1A. Hepatitic ultrasound revealed hepatosplenomegaly. We will refer to GI as an outpatient for treatment. (8) Hepatosplenomegaly Plan: As seen on CT of the abdomen and pelvis with moderate amount of ascites and diffuse anasarca. (9) Sacral decubitus ulcer, stage IV Plan: wound care consulted - fu recommendations. Recommended plastic surgery consult for debridement. 11/12 consult plastic surgery. Continue wound care. (10) Anasarca Plan: As evidenced by bilateral pleural effusions, ascites and anasarca described on CT abdomen and pelvis. Patient refused abdominal paracentesis. Patient being dialyzed. 11/10 For Diagnostic and therapeutic abdominal paracentesis today. SP abdominal paracentesis on 11/10. Ascitic fluid non infectious. (11) Acute systolic heart failure Plan: Echo with EF of 35-40%. Treat fluid overload with dialysis. (12) Moderate protein-calorie malnutrition Plan: Dietitian consulted, recommends liberalize diet to allow more fluid options and hopefully increase p.o. intake. Nepro twice daily with encouragement. (13) Hyponatremia Plan: On fluid restriction - continue. Sodium stable at 131. (14) ZEUS (acute kidney injury) Plan: Most likely due to ATN from sepsis and low blood pressure. HD started on 10/08. Continue dialysis as per nephrology. Dialysis currently on Friday/ and Friday schedule. Avoid nephrotoxins, continue to monitor BUN and creatinine. (15) Anemia Plan: On ferrous sulfate and Epogen as per nephrology. Anemia likely secondary to chronic kidney disease. 11/09 hemoglobin dropped from 8.9-7.7. No obvious bleeding. Continue to monitor hemoglobin and hematocrit. Transfuse as needed for hemoglobin less than 7 or symptomatic anemia. 11/12 continue Epogen with dialysis as per nephrology. Hemoglobin trending up now 9.5. (16) Debility Plan: Continue PT and OT. Patient will need to go to rehab upon discharge. (17) Transaminitis Plan: Now resolved. Continue to monitor liver function tests. Transaminitis likely secondary to sepsis and hepatitis C. 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 Pain seems to be controlled. (19) MARTÍN positive Plan: The patient also has a positive MARTÍN with a titer of 1: 40 with a diffuse pattern. This is a low pattern and the patient does not have any other symptoms consistent with rheumatic disease. Will not pursue any further testing. The patient will need to follow-up as an outpatient by his primary care physician. (20) Hypotension Plan: Unclear etiology of hypotension. However the patient is on hemodialysis and is hypoalbuminemic, also patient is on several medications to control pain including fentanyl patch, Roxicodone, gabapentin. All of these factors could be contributing to the patient's hypotension. Upon review of records the patient has been hypotensive for some time now. Patient's hypotension started on 10/31/17 and blood pressure occasionally goes up , however it is most consistently in the high 80s to low 90s systolic. Start midodrine for blood pressure support. 11/10 BP better but bp still lowin the 90's systolic. Increase Midodrine dose to 10 mg po tid. BP still borderline low, continue midodrine. Patient asymptomatic. DVT prophylaxis: SCDs, heparin subcutaneously. Discharge Planning Continue to monitor the medical floor. Pending clinical improvement and infectious disease clearance. Problem Qualifiers (1) Endocarditis: (2) Hepatitis C: (3) Anemia: (4) Hypotension: Qualified Codes: I95.9 - Hypotension, unspecified Nathan Krishnan MD Nov 17, 2017 13:20
--- NOTE | 2017-11-17 13:52 | RADRPT ---
EXAM DATE/TIME: 11/17/2017 13:05 [place] COMPARISON: CT THORAX W/O CONTRAST, November 03, 2017, 10:16. CHEST SINGLE AP, October 30, 2017, 17:04. CHEST SINGLE AP, November 14, 2017, 14:46. INDICATIONS : Infiltrate MEDICAL HISTORY : Hepatitis C. MRSA, Endocarditis SURGICAL HISTORY : dialysis ENCOUNTER: Initial ACUITY: 1 month PAIN SCORE: 0/10 LOCATION: Bilateral chest FINDINGS: 2 AP semierect portable views of the chest were obtained and demonstrate interval removal of the prev iously noted right central line. The heart size remains moderately enlarged. Abnormal thickening or f luid remains along the right lateral chest wall without significant change. The costophrenic angle is blunted. There is mild patchy perihilar and bibasilar opacities. The bony thorax is intact. CONCLUSION: 1. Pleural thickening and/or fluid remains along the right lateral chest wall. 2. Cardiomegaly and apparent mild pulmonary edema again noted. 3. Interval removal of central venous line. 1. Jorge Jang MD on November 17, 2017 at 13:47 Board Certified Radiologist. This report was verified electronically.
--- NOTE | 2017-11-17 15:19 | HHI.NPPN ---
Subjective Complaints: Shortness of Breath Renal Failure: Acute History of Present Illness Patient is 27-year-old male who reported to ER with body aches, 7 days of diarrhea with development fever. Past medical history of IV drug use. Patient is sedated and ventilated FiO2 at 40 %. Nephrology is consulted for ZEUS and fluid over load status. Patients creatinine is 3.02 and GFR 25ml/min. Patient is UOP at 800cc for last 24 hours. Weight has increased by over 10 kg since admission. IVF's have been stopped and lasix has been given. Patient has endocarditis with large tricuspid valve vegetation, and pulmonic vegetation. Noted to have bacteremia with hypotension with SBP in the 90's. Additional Remarks Patient is short of breath with cough present. (Venus Barrett) Review of Systems Respiratory Lungs: SOB, Cough, Sputum (Venus Barrett) Cardiovascular Cardiac Remarks denies CP (Venus Barrett) Gastrointestinal GI Remarks No abdominal pain (Vneus Barrett) Psych Psych: Depression, Anxiety (Venus Barrett) Objective Data Data 11/17/17 11/18/17 19:00 07:00 Intake Total 660 ml Output Total 2200 ml Balance -1540 ml Intake Oral 660 ml Output Urine Total 2200 ml Vital Signs Date Time Temp Pulse Resp B/P (MAP) Pulse Ox O2 Delivery O2 Flow Rate FiO2 11/17/17 12:00 98 Nasal Cannula 4.00 11/17/17 12:00 105 11/17/17 12:00 97.7 105 20 102/62 (75) 100 11/17/17 09:10 101 11/17/17 08:00 97.6 99 20 109/66 (80) 91 11/17/17 08:00 Nasal Cannula 4.00 11/17/17 03:40 102 11/17/17 03:36 Room Air 11/17/17 03:35 97.6 88 20 102/62 (75) 91 11/17/17 00:00 Nasal Cannula 4.00 11/17/17 00:00 96.0 85 18 104/60 (75) 99 11/16/17 23:41 86 11/16/17 22:16 95 Nasal Cannula 4.00 3/25/18 20:39 Nasal Cannula 4.00 11/16/17 20:00 97.6 85 20 105/59 (74) 97 11/16/17 19:43 84 11/16/17 16:00 83 11/16/17 16:00 97.5 90 20 94/56 (69) 96 (Corinne Barrettne MirnaNguyễn MCKEON) -: 11/17/17 0350 11/17/17 0350 Imaging Last Impressions Chest X-Ray 11/14/17 0000 Signed Impressions: Service Date/Time: Tuesday, November 14, 2017 14:46 - CONCLUSION: Cardiomegaly with improving bilateral perihilar edema. Moderate right pleural effusion. Chaitanya Copeland MD Cyst Biopsy Asp-Paracentesis US 11/10/17 0000 Signed Impressions: Service Date/Time: Friday, November 10, 2017 10:52 - CONCLUSION: Uncomplicated ultrasound guided paracentesis. Madi Mccartney MD Abdomen Ultrasound 11/07/17 0000 Signed Impressions: Service Date/Time: Tuesday, November 07, 2017 11:36 - CONCLUSION: Moderate amount of ascites confirmed for subsequent paracentesis but the patient refused the procedure and therefore was sent back to the floor. Khoi Padilla MD Chest CT 11/03/17 0000 Signed Impressions: Service Date/Time: Friday, November 03, 2017 10:16 - CONCLUSION: Scattered areas of consolidation and scattered nodular foci identified, a overall improved from the previous study however the consolidation in the right middle lobe is increased and is a change from previous studies. Chadwick Diaz MD Liver Ultrasound 10/24/17 0000 Signed Impressions: Service Date/Time: Tuesday, October 24, 2017 16:43 - CONCLUSION: Hepatosplenomegaly with ascites. Echogenic kidney Madi Mccartney MD Abdomen/Pelvis CT 10/24/17 0000 Signed Impressions: Service Date/Time: Tuesday, October 24, 2017 21:37 - CONCLUSION: 1. Hepatosplenomegaly. 2. Moderate amount of ascites. 3. Diffuse anasarca. 4. Bibasilar pleural effusions and scattered infiltrates. Khoi Padilla MD Tunnelled Chest Tube Removal 10/20/17 0000 Signed Impressions: Service Date/Time: Friday, October 20, 2017 00:00 - CONCLUSION: Uncomplicated chest tube removal. Madi Mccartney MD Upper Extremity Ultrasound 10/13/17 0000 Signed Impressions: Service Date/Time: Friday, October 13, 2017 11:25 - CONCLUSION: Normal examination. Christian Kaur MD Abdomen X-Ray 10/10/17 0000 Signed Impressions: Service Date/Time: Tuesday, October 10, 2017 16:46 - CONCLUSION: Negative for free air or obstruction. Rahul Yarbrough MD FACR Chest Tube Insertion 10/06/17 0000 Signed Impressions: Service Date/Time: Friday, October 06, 2017 15:37 - CONCLUSION: Uncomplicated chest tube placement as above. Emerson Hui MD (Gellermann,Venus [employer]) Physical Exam General Appearance: Well Developed, Anxious (Gellermann,Venus [employer]) Eyes Eye Exam: Pupils Equal (Gellermann,Venus [employer] SUPER[employer]) Pulmonary Resp Exam: Breath Sounds Equal, Crackles, Rhonchi, Decreased Bases, Diminished Breath Sounds (Gellermann,Venus [employer]PER[employer]) Cardiology CV Exam: Regular, Murmur (Gellermann,Venus [employer] SUPER[employer]OR) Gastrointestinal/Abdomen GI Exam: Soft, Non-Tender, Bowel Sounds Present, Distended (Gellermann,Venus [employer]PER[employer]) Integumentary Skin Exam: Clear, Warm (Gellermann,Venus [employer] SUPER[employer]OR) Extremeties Extremities Exam: Trace Edema (Gellermann,Venus [employer] SUPER[employer]OR) Neurologic Neuro Exam: Awake (Gellermann,Venus [employer]PER[employer]) Psychiatric Psych Exam: Appropriate Responses (Gellermann,Venus [employer]PER[employer]OR) Assessment/Plan Assessment Summary: ZEUS/Acute Renal Failure Electrolyte Assessment: Hyponatremia Problem List: (1) ZEUS (acute kidney injury) ICD Codes: N17.9 - Acute kidney failure, unspecified Plan: ZEUS most likely ATN from sepsis and low blood pressure. Other differential will be ATN, Acute interstitial nephritis, and Post infectious GN,unlikely. HD started on 10/08 Plan Dialysis currently / through vas cath Reinsert vas cath today Hypocalcemia replacement already given. Continue Lasix at 120 mg twice a day UOP at 600 yesterday with creatinine of 3.57. Continue to monitor UOP, BMP, and watch for renal recovery. Labs ordered for AM Dialysis planned for tomorrow (2) Sepsis ICD Codes: A41.9 - Sepsis, unspecified organism Status: Acute Plan: Antibiotics per ID (3) Endocarditis ICD Codes: I38 - Endocarditis, valve unspecified Status: Acute Plan: antibiotics renal dosing (Venus Barrett) Problem List: (1) ZEUS (acute kidney injury) ICD Codes: N17.9 - Acute kidney failure, unspecified Plan: ZEUS most likely ATN from sepsis and low blood pressure. Other differential will be ATN, Acute interstitial nephritis, and Post infectious GN,unlikely. HD started on 10/08 Plan Dialysis currently / through vas cath Reinsert vas cath today Hypocalcemia replacement already given. Continue Lasix at 120 mg twice a day UOP at 600 yesterday with creatinine of 3.57. Continue to monitor UOP, BMP, and watch for renal recovery. Labs ordered for AM Patient seen and examine, agree with above. Dialysis planned for tomorrow if Creatinine is worsening. (2) Sepsis ICD Codes: A41.9 - Sepsis, unspecified organism Status: Acute Plan: Antibiotics per ID (3) Endocarditis ICD Codes: I38 - Endocarditis, valve unspecified Status: Acute Plan: antibiotics renal dosing (Darek Tapia MD) Problem Qualifiers (1) Sepsis: Qualified Codes: A41.9 - Sepsis, unspecified organism (2) Endocarditis: Venus Barrett Nov 17, 2017 15:19 Darek Tapia MD Nov 18, 2017 21:57
--- NOTE | 2017-11-17 21:16 | HHI.PR ---
Subjective Remarks 27 YOWM with bilat infilt, pl eff, MSSA Endocarditis up in chair Cough with small amount of sp Breathing better Weaned to RA Objective Vital Signs Vital Signs Date Time Temp Pulse Resp B/P (MAP) Pulse Ox O2 Delivery O2 Flow Rate FiO2 11/17/17 16:00 115 11/17/17 16:00 98.1 105 20 113/73 (86) 99 11/17/17 12:00 98 Nasal Cannula 4.00 11/17/17 12:00 105 11/17/17 12:00 97.7 105 20 102/62 (75) 100 11/17/17 09:10 101 11/17/17 08:00 97.6 99 20 109/66 (80) 91 11/17/17 08:00 Nasal Cannula 4.00 11/17/17 03:40 102 11/17/17 03:36 Room Air 11/17/17 03:35 97.6 88 20 102/62 (75) 91 11/17/17 00:00 Nasal Cannula 4.00 11/17/17 00:00 96.0 85 18 104/60 (75) 99 11/16/17 23:41 86 11/16/17 22:16 95 Nasal Cannula 4.00 I/O 11/16/17 11/16/17 11/16/17 11/17/17 11/17/17 11/17/17 06:59 14:59 22:59 06:59 14:59 22:59 Intake Total 100 ml 480 ml 100 ml 660 ml 100 ml Output Total 400 ml 600 ml 2200 ml Balance -300 ml -120 ml 100 ml -1540 ml 100 ml Intake Oral 480 ml 660 ml IV Total 100 ml 100 ml 100 ml Output Urine Total 400 ml 600 ml 2200 ml # Bowel Movements 1 Result Diagram: 11/17/17 0350 11/17/17 0350 Objective Remarks GENERAL: MBMN WM, mild sob SKIN: Warm and dry. HEAD: Normocephalic. EYES: No scleral icterus. No injection or drainage. NECK: Supple, trachea midline. No JVD or lymphadenopathy. CARDIOVASCULAR: Regular rate and rhythm without murmurs, gallops, or rubs. RESPIRATORY: Breath sounds equal bilaterally. No accessory muscle use. GASTROINTESTINAL: Abdomen soft, non-tender, nondistended. Abd distended, non tender MUSCULOSKELETAL: No cyanosis, ++ edema. BACK: Nontender without obvious deformity. No CVA tenderness. A/P Assessment and Plan Bilat infilterates improving Pl eff small Abd distension MSSA Endocarditis renal failure PLAN: Aerosol nebs Cont Abx per ID Supplement 02 Pl eff small, will monitor HD per renal Jony Bustamante MD Nov 17, 2017 21:16
[2017-11-18] VITALS (11 sets, daily range): BP systolic 100–120; BP diastolic 55–67; PULSE 80–104; RESP 18–20; TEMP 97.2–98.8; O2SAT 92–100
[2017-11-18] MEDS: CHLORHEXIDINE GLUCONATE 2 % 1 PACK (2 CLOTHS) TOP SCH (04:00)
[2017-11-18] MEDS: ACETAMINOPHEN 500 MG CPLT PO SCH ×3 (04:30→17:07)
[2017-11-18] MEDS: MIDODRINE 5 MG TAB PO SCH ×3 (06:58→16:25)
[2017-11-18 07:43] LABS: HEMATOCRIT 25.8 % (39.0-51.0); HEMOGLOBIN 8.7 GM/DL (13.0-17.0); MEAN CELL VOLUME 86.1 FL (80.0-100.0); MEAN CORPUSCULAR HEMOGLOBIN 28.9 PG (27.0-34.0); MEAN CORPUSCULAR HGB CONC 33.6 % (32.0-36.0); MEAN PLATELET VOLUME 8.3 FL (7.0-11.0); PLATELET COUNT 139 TH/MM3 (150-450); RED CELL DISTRIBUTION WIDTH 21.1 % (11.6-17.2); WHITE BLOOD COUNT 7.4 TH/MM3 (4.0-11.0)
[2017-11-18] MEDS: RESP: ALBUTEROL 2.5 MG/3 ML NEB (PRN) NEB (07:51)
[2017-11-18] MEDS: CHLORHEXIDINE 0.12% (ORAL KIT) 15 ML CUP MT SCH ×2 (08:00→20:00)
[2017-11-18] MEDS ORDERED: LIDOCAINE HCL 2% JELLY 5 ML SYRINGE TOPICAL STA (08:09)
[2017-11-18] MEDS: SODIUM CHLORIDE 0.9% FLUSH 10 ML FLUSH IV FLUSH SCH ×2 (08:10→22:21)
[2017-11-18] MEDS: SODIUM CHLORIDE 1 GRAM TAB PO SCH (08:11)
[2017-11-18] MEDS: LACTOBACILLUS ACIDOPHILUS TAB PO SCH ×3 (08:11→17:07)
[2017-11-18] MEDS: CALCIUM ACETATE 667 MG CAP PO SCH ×3 (08:11→17:07)
[2017-11-18] MEDS: DULoxetine HCl DR 60 MG CAP PO SCH (08:11)
[2017-11-18] MEDS: PANTOPRAZOLE SOD 40 MG DELAYED RELEASE TAB PO SCH ×2 (08:11→22:19)
[2017-11-18] MEDS: FLUTICASONE PROPIONATE 44 MCG/ACT 10.6 GM INHALER INH SCH ×2 (08:11→22:28)
[2017-11-18] MEDS: DOCUSATE SODIUM 50 MG/SENNA 8.6 MG TAB PO SCH ×2 (08:11→22:20)
[2017-11-18] MEDS: HEPARIN SODIUM - SQ 10,000 UNITS/ML VIAL SQ SCH ×2 (08:11→22:20)
[2017-11-18] MEDS: SODIUM HYPOCHLORITE 0.125% 500 ML BTL TOPICAL SCH (08:12)
[2017-11-18] MEDS: COLLAGENASE OINT 30 GM TUBE TOPICAL SCH (08:12)
[2017-11-18] MEDS: METOPROLOL TARTRATE 25 MG TAB PO SCH ×2 (08:14→22:19)
[2017-11-18 08:19] LABS: BICARBONATE 24.5 MEQ/L (21.0-32.0); CALCIUM 7.9 MG/DL (8.5-10.1); CREATININE 3.64 MG/DL (0.60-1.30)
[2017-11-18] MEDS: FUROSEMIDE 100 MG/10 ML VIAL IV PUSH SCH ×2 (09:00→22:21)
[2017-11-18] MEDS: GABAPENTIN 100 MG CAP PO SCH (12:34)
[2017-11-18] MEDS: FERROUS SULFATE 325 MG (65 MG ELEMENTAL IRON) TAB PO SCH ×2 (12:34→16:25)
--- NOTE | 2017-11-18 14:30 | HHI.PR ---
Subjective Remarks Denies cp/sob Afebrile. Refused Vas Cath placement. States is urinating very well. Urine output seems to be greatly improved. Objective Vitals Vital Signs Date Time Temp Pulse Resp B/P (MAP) Pulse Ox O2 Delivery O2 Flow Rate FiO2 11/18/17 12:00 97.4 104 20 120/56 (77) 94 11/18/17 08:00 97.2 84 20 100/59 (73) 97 11/18/17 07:51 97 Nasal Cannula 2.00 11/18/17 04:38 97.6 83 18 104/55 (71) 92 11/18/17 04:00 87 11/18/17 01:30 Nasal Cannula 4.00 11/18/17 00:00 93 11/18/17 00:00 98.8 101 19 108/65 (79) 100 11/17/17 22:00 Nasal Cannula 4.00 11/17/17 20:00 98.4 105 18 105/58 (74) 99 11/17/17 20:00 96 11/17/17 16:00 115 11/17/17 16:00 98.1 105 20 113/73 (86) 99 I/O 11/17/17 11/17/17 11/17/17 11/18/17 11/18/17 11/18/17 07:00 15:00 23:00 07:00 15:00 23:00 Intake Total 100 ml 660 ml 100 ml 100 ml Output Total 2200 ml 1400 ml Balance 100 ml -1540 ml 100 ml -1300 ml Intake Oral 660 ml 100 ml IV Total 100 ml 100 ml Output Urine Total 2200 ml 1400 ml # Bowel Movements 2 Result Diagram: 11/18/17 0720 11/18/17 0720 Imaging Last Impressions Chest X-Ray 11/17/17 0000 Signed Impressions: Service Date/Time: Friday, November 17, 2017 13:05 - CONCLUSION: 1. Pleural thickening and/or fluid remains along the right lateral chest wall. 2. Cardiomegaly and apparent mild pulmonary edema again noted. 3. Interval removal of central venous line. 1. Jorge Jang MD Cyst Biopsy Asp-Paracentesis US 11/10/17 0000 Signed Impressions: Service Date/Time: Friday, November 10, 2017 10:52 - CONCLUSION: Uncomplicated ultrasound guided paracentesis. Madi Mccartney MD Abdomen Ultrasound 11/07/17 0000 Signed Impressions: Service Date/Time: Tuesday, November 07, 2017 11:36 - CONCLUSION: Moderate amount of ascites confirmed for subsequent paracentesis but the patient refused the procedure and therefore was sent back to the floor. Khoi Padilla MD Chest CT 11/03/17 0000 Signed Impressions: Service Date/Time: Friday, November 03, 2017 10:16 - CONCLUSION: Scattered areas of consolidation and scattered nodular foci identified, a overall improved from the previous study however the consolidation in the right middle lobe is increased and is a change from previous studies. Chadwick Diaz MD Liver Ultrasound 10/24/17 0000 Signed Impressions: Service Date/Time: Tuesday, October 24, 2017 16:43 - CONCLUSION: Hepatosplenomegaly with ascites. Echogenic kidney Madi Mccartney MD Abdomen/Pelvis CT 10/24/17 0000 Signed Impressions: Service Date/Time: Tuesday, October 24, 2017 21:37 - CONCLUSION: 1. Hepatosplenomegaly. 2. Moderate amount of ascites. 3. Diffuse anasarca. 4. Bibasilar pleural effusions and scattered infiltrates. Khoi Padilla MD Tunnelled Chest Tube Removal 10/20/17 0000 Signed Impressions: Service Date/Time: Friday, October 20, 2017 00:00 - CONCLUSION: Uncomplicated chest tube removal. Madi Mccartney MD Upper Extremity Ultrasound 10/13/17 0000 Signed Impressions: Service Date/Time: Friday, October 13, 2017 11:25 - CONCLUSION: Normal examination. Christian Kaur MD Abdomen X-Ray 10/10/17 0000 Signed Impressions: Service Date/Time: Tuesday, October 10, 2017 16:46 - CONCLUSION: Negative for free air or obstruction. Rahul Yarbrough MD FACR Chest Tube Insertion 10/06/17 0000 Signed Impressions: Service Date/Time: Friday, October 06, 2017 15:37 - CONCLUSION: Uncomplicated chest tube placement as above. Emerson Hui MD Objective Remarks AAOx3 nad S1S2 RRR, soft 2/6 systolic murmur Abdomen soft, nt, mildly, distended Clear lungs BL +1 edema in lower extremities BL Procedures CT-guided chest tube placement on left chest. Date 10/06/17. Medications and IVs Current Medications Medications (Trade) Dose Ordered Sig/Willem Route Start Time Stop Time Status Last Admin (NS Flush) 2 ml UNSCH PRN IV FLUSH 10/03/17 21:15 11/17/17 06:46 (NS Flush) 2 ml BID IV FLUSH 10/04/17 09:00 11/18/17 08:10 (Zofran Inj) 4 mg Q6H PRN IV PUSH 10/03/17 21:15 11/11/17 11:45 (Restoril) 15 mg HS PRN PO 10/03/17 21:15 11/13/17 22:49 Miscellaneous Information 1 Q361D XX 10/03/17 21:15 (Chlorhexidine 2% Cloth) Taper DAILY@04 TOP 10/04/17 04:00 09/30/18 03:59 10/26/17 21:40 (Chlorhexidine 2% Cloth) 3 pack UNSCH PRN TOP 10/03/17 21:15 (Renita-Colace) 1 tab BID PO 10/04/17 09:00 11/18/17 08:11 (Senokot) 17.2 mg Q12H PRN PO 10/03/17 21:15 (Dulcolax Supp) 10 mg DAILY PRN RECTAL 10/03/17 21:15 10/11/17 17:08 (Lactulose Liq) 30 ml DAILY PRN PO 10/03/17 21:15 10/11/17 17:08 (Flovent Hfa 44 Mcg Inh) 2 puff BID INH 10/04/17 09:00 11/18/17 08:11 (Peridex 0.12% Liq) 15 ml BID@08,20 MT 10/04/17 20:00 11/18/17 08:00 Sodium Chloride 1,000 ml @ 0 mls/hr Q0M PRN OTHER 10/08/17 10:33 11/15/17 14:56 (Heparin Inj) 8,000 units UNSCH PRN IV FLUSH 10/08/17 10:45 Sodium Chloride 1,000 ml @ 200 mls/hr Q5H PRN IV 10/08/17 11:15 11/08/17 09:57 Sodium Chloride 1,000 ml @ 0 mls/hr Q0M PRN OTHER 10/08/17 11:15 (Mannitol Inj) 12.5 gm UNSCH PRN IV 10/08/17 11:15 11/13/17 11:06 Albumin Human 100 ml @ 60 mls/hr UNSCH PRN IV 10/08/17 11:30 11/13/17 11:05 (NS Flush) 5 ml UNSCH PRN IV FLUSH 10/08/17 11:15 11/15/17 14:56 (Heparin Inj) UNSCH PRN .XX 10/08/17 11:15 11/15/17 14:57 (Gentamicin Inj) 20 mg UNSCH PRN OTHER 10/08/17 11:15 11/15/17 14:57 (Zofran Inj) 4 mg UNSCH PRN IV PUSH 10/08/17 11:15 11/15/17 15:48 (Nitrostat Sl) 0.4 mg UNSCH PRN SL 10/08/17 11:30 (Catapres) 0.1 mg UNSCH PRN PO 10/08/17 11:30 (Epogen Inj) 10,000 units UNSCH PRN IV PUSH 10/08/17 11:30 11/15/17 14:57 (Gelfoam 12 Mm/7 Mm Top) 1 foam UNSCH PRN TOP 10/08/17 11:30 (Lactinex) 1 tab TID PO 10/17/17 13:00 11/18/17 12:34 (Duragesic 100 Mcg Patch.72 Hr) 1 patch Q3D T-DERMAL 10/18/17 12:00 11/08/17 13:18 Miscellaneous Information 1 Q3D T-DERMAL 10/21/17 12:00 11/14/17 12:00 (Albuterol Neb) 2.5 mg Q2HR NEB PRN NEB 10/21/17 13:30 11/18/17 07:51 (Protonix) 40 mg Q12HR PO 10/21/17 21:00 11/18/17 08:11 (Heparin Inj) 5,000 units Q12HR SQ 10/21/17 21:00 11/18/17 08:11 (Phoslo) 667 mg TID PO 10/23/17 13:00 11/18/17 12:35 Cefazolin Sodium 1000 mg/Sodium Chloride 100 ml @ 200 mls/hr Q12H IV 10/24/17 03:00 11/17/17 15:21 (Haldol Inj) 5 mg Q4H PRN IV PUSH 10/23/17 23:30 10/26/17 23:39 (Sodium Chloride) 1 gm DAILY PO 10/26/17 09:00 11/18/17 08:11 (Ferrous Sulfate) 325 mg BID@12,17 PO 10/27/17 12:00 11/18/17 12:34 (Tylenol) 500 mg Q6HR PO 10/31/17 00:00 11/18/17 12:35 (Roxicodone) 5 mg Q6H PRN PO 10/30/17 20:00 11/18/17 08:18 (Zanaflex) 2 mg Q8HR PO 10/30/17 22:00 11/18/17 13:26 (Atarax) 50 mg Q8H PRN PO 10/31/17 17:15 11/10/17 10:33 (Cymbalta Dr) 60 mg DAILY PO 11/03/17 12:00 11/18/17 08:11 (Neurontin) 300 mg Q24H PO 11/06/17 13:00 11/18/17 12:34 (Narcan Inj) 0.4 mg Q2M PRN IV PUSH 11/08/17 20:15 11/08/17 20:16 (Santyl Oint) 1 applic DAILY TOPICAL 11/11/17 09:00 11/18/17 08:12 (Dakin'S 0.125% Soln) 500 ml DAILY TOPICAL 11/11/17 09:00 11/18/17 08:12 (Proamatine) 10 mg TID@07,12,17 PO 11/11/17 12:00 11/18/17 12:34 (Lopressor) 12.5 mg BID PO 11/11/17 21:00 11/17/17 22:33 (Pill Splitter) 1 ea UNSCH PRN OTHER 11/11/17 19:00 (Lasix Inj) 120 mg BID IV PUSH 11/16/17 21:00 11/17/17 22:35 A/P Problem List: (1) Endocarditis ICD Code: I38 - Endocarditis, valve unspecified Status: Acute (2) MSSA bacteremia ICD Code: R78.81 - Bacteremia (3) Tricuspid valve vegetation ICD Code: I33.0 - Acute and subacute infective endocarditis (4) IV drug abuse ICD Code: F19.10 - Other psychoactive substance abuse, uncomplicated (5) Pleural effusion, bilateral ICD Code: J90 - Pleural effusion, not elsewhere classified (6) Septic embolism ICD Code: I26.90 - Septic pulmonary embolism without acute cor pulmonale Status: Acute (7) Hepatitis C ICD Code: B19.20 - Unspecified viral hepatitis C without hepatic coma (8) Hepatosplenomegaly ICD Code: R16.2 - Hepatomegaly with splenomegaly, not elsewhere classified (9) Sacral decubitus ulcer, stage IV ICD Code: L89.154 - Pressure ulcer of sacral region, stage 4 Status: Acute (10) Anasarca ICD Code: R60.1 - Generalized edema (11) Acute systolic heart failure ICD Code: I50.21 - Acute systolic (congestive) heart failure (12) Moderate protein-calorie malnutrition ICD Code: E44.0 - Moderate protein-calorie malnutrition Status: Acute (13) Hyponatremia ICD Code: E87.1 - Hypo-osmolality and hyponatremia Status: Acute (14) ZEUS (acute kidney injury) ICD Code: N17.9 - Acute kidney failure, unspecified (15) Anemia ICD Code: D64.9 - Anemia, unspecified (16) Debility ICD Code: R53.81 - Other malaise Status: Acute (17) Transaminitis ICD Code: R74.0 - Nonspecific elevation of levels of transaminase and lactic acid dehydrogenase [LDH] Status: Resolved (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 Repeat bedside echocardiogram on 10/18 showed a similar size vegetation. Cardiology and CT surgery has followed. D/W Dr. Charles declined surgery due to active IV drug use, multiple medical complications. Discussed with [facility] who agreed with plan of our cardiothoracic surgeon. [facility] administration has denied the patient as well per CM. ID consulted. Continue IV antibiotics as per ID. Currently on IV cefazolin. (2) MSSA bacteremia Plan: Continue IV antibiotics as per ID. Last blood cultures on 10/18 negative 5. (3) Tricuspid valve vegetation Plan: Cardiology consulted and following. Dr Bradley decilned performing surgery on patient. (4) IV drug abuse Plan: The patient states he has not used drugs in 3 months. Advised and reinforced drug cessation. (5) Pleural effusion, bilateral Plan: Likely secondary to fluid overload and acute systolic heart failure. The patient hasis being dialyzed repeat chest x-ray on 11/14 showed cardiomegaly with improving bilateral perihilar edema. Moderate right pleural effusion. Images reviewed by me. We will continue to follow and repeat chest x-ray in a couple days to see evolution of pleural effusion. The patient might require thoracentesis. 11/17 Patient coughing - check CXR. (6) Septic embolism Plan: Secondary to tricuspid valve endocarditis. 11/12 previously on 4 L nasal cannula, respiratory status improving with patient on 2 L nasal cannula. (7) Hepatitis C Plan: Hepatitis C antibody reactive. Hepatitis C viral load 53251. Hepatitis C genotype 1A. Hepatitic ultrasound revealed hepatosplenomegaly. We will refer to GI as an outpatient for treatment. (8) Hepatosplenomegaly Plan: As seen on CT of the abdomen and pelvis with moderate amount of ascites and diffuse anasarca. (9) Sacral decubitus ulcer, stage IV Plan: wound care consulted - fu recommendations. Recommended plastic surgery consult for debridement. 11/12 consult plastic surgery. Continue wound care. (10) Anasarca Plan: As evidenced by bilateral pleural effusions, ascites and anasarca described on CT abdomen and pelvis. Patient refused abdominal paracentesis. Patient being dialyzed. 11/10 For Diagnostic and therapeutic abdominal paracentesis today. SP abdominal paracentesis on 11/10. Ascitic fluid non infectious. (11) Acute systolic heart failure Plan: Echo with EF of 35-40%. Treat fluid overload with dialysis. (12) Moderate protein-calorie malnutrition Plan: Dietitian consulted, recommends liberalize diet to allow more fluid options and hopefully increase p.o. intake. Nepro twice daily with encouragement. (13) Hyponatremia Plan: On fluid restriction - continue. Sodium stable at 131. (14) ZEUS (acute kidney injury) Plan: Most likely due to ATN from sepsis and low blood pressure. HD started on 10/08. Continue dialysis as per nephrology. Dialysis currently on Friday/ and Friday schedule. Avoid nephrotoxins, continue to monitor BUN and creatinine. (15) Anemia Plan: On ferrous sulfate and Epogen as per nephrology. Anemia likely secondary to chronic kidney disease. 11/09 hemoglobin dropped from 8.9-7.7. No obvious bleeding. Continue to monitor hemoglobin and hematocrit. Transfuse as needed for hemoglobin less than 7 or symptomatic anemia. Epogen as per nephrology. Hemoglobin stable. (16) Debility Plan: Continue PT and OT. Patient will need to go to rehab upon discharge. (17) Transaminitis Plan: Now resolved. Continue to monitor liver function tests. Transaminitis likely secondary to sepsis and hepatitis C. 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 Pain seems to be controlled. (19) MARTÍN positive Plan: The patient also has a positive MARTÍN with a titer of 1: 40 with a diffuse pattern. This is a low pattern and the patient does not have any other symptoms consistent with rheumatic disease. Will not pursue any further testing. The patient will need to follow-up as an outpatient by his primary care physician. (20) Hypotension Plan: Unclear etiology of hypotension. However the patient is on hemodialysis and is hypoalbuminemic, also patient is on several medications to control pain including fentanyl patch, Roxicodone, gabapentin. All of these factors could be contributing to the patient's hypotension. Upon review of records the patient has been hypotensive for some time now. Patient's hypotension started on 10/31/17 and blood pressure occasionally goes up , however it is most consistently in the high 80s to low 90s systolic. Start midodrine for blood pressure support. 11/10 BP better but bp still lowin the 90's systolic. Increase Midodrine dose to 10 mg po tid. BP still borderline low, continue midodrine. Patient asymptomatic. DVT prophylaxis: SCDs, heparin subcutaneously. Discharge Planning Continue to monitor the medical floor. Pending clinical improvement and infectious disease clearance. Problem Qualifiers (1) Endocarditis: (2) Hepatitis C: (3) Anemia: (4) Hypotension: Qualified Codes: I95.9 - Hypotension, unspecified Nathan Krishnan MD Nov 18, 2017 14:30
--- NOTE | 2017-11-18 15:54 | PD.WCN.NOT ---
Wound Consult Description: Patient seen for follow up of Sacral wound. Communicated with: [facility] [address] [place] [address], Lluvia VAZ [address] [place] [address], Doctor Solis Recommendation: Please continue current wound care orders until seen by plastics for possible debridement of previously noted unstageable pressure injury, that is now a stage 4 sacral pressure injury. 1.Please cleanse wound to sacrum, coccyx, and bilateral buttocks with normal saline only and pat dry. 2.Apply Santyl tj thickness to wound bed only 3. Pack wound loosely with 0.125% dakin's solution moistened gauze 4.Cover with bordered gauze and Change dressing daily.Until seen by plastics. 5. Apply skin prep to periwound and before securing dressing. 4.Turn patient every 2 hours and PRN for comfort and offloading of pressure from bhargavi prominences. For R posterior leg. 1.Cleanse wound with normal saline and pat dry. 2. Apply Santyl tj thickness to wound bed and cover with dry 4x4 gauze. 3. Secure dressing with rolled gauze and tape. 4. Change dressing daily. Additional Information: Patient seen on [address] [place] [address] for follow up of sacral stage 4 pressure injury. Patient able to turn to R side with minimal assistance of freelance copywriter. Patient seen with Doctor Solis.Wound presents with ~30% loosely adherent yellow slough,~10% facia, and~60% red granulation tissue. Wound has minimal sero-sanguinous drainage and foul odor. Patient refused bedside debridement of sacral wound from Doctor Solis. Wound measures ~9 cm x ~8cm x ~3.5cm. Wound was cleansed with normal saline and patted dry applied 0.125% Dakin's solution moistened gauze to wound packed loosely. Applied skin prep to periwound and then applied bordered gauze over wound. No Santyl was available at bedside. Rn to order from pharmacy and apply with next dressing change . Call was placed to Plastics Doctor Madhavi's office twice left message about plastics consult. Aury Arceo [facility] Nov 18, 2017 15:54
--- NOTE | 2017-11-18 20:02 | HHI.PR ---
Subjective Remarks 27 YOWM with bilat infilt, pl eff, MSSA Endocarditis up in chair Cough with small amount of sp Breathing better Weaned to RA Good urine output Objective Vital Signs Vital Signs Date Time Temp Pulse Resp B/P (MAP) Pulse Ox O2 Delivery O2 Flow Rate FiO2 11/18/17 16:00 98.7 96 20 112/67 (82) 96 11/18/17 15:45 92 11/18/17 12:00 97.4 104 20 120/56 (77) 94 11/18/17 11:35 101 11/18/17 08:00 97.2 84 20 100/59 (73) 97 11/18/17 07:55 80 11/18/17 07:51 97 Nasal Cannula 2.00 11/18/17 04:38 97.6 83 18 104/55 (71) 92 11/18/17 04:00 87 11/18/17 01:30 Nasal Cannula 4.00 11/18/17 00:00 93 11/18/17 00:00 98.8 101 19 108/65 (79) 100 11/17/17 22:00 Nasal Cannula 4.00 I/O 11/17/17 11/17/17 11/17/17 11/18/17 11/18/17 11/18/17 07:00 15:00 23:00 07:00 15:00 23:00 Intake Total 100 ml 660 ml 100 ml 100 ml 360 ml 100 ml Output Total 2200 ml 1400 ml 200 ml Balance 100 ml -1540 ml 100 ml -1300 ml 160 ml 100 ml Intake Oral 660 ml 100 ml 360 ml IV Total 100 ml 100 ml 100 ml Output Urine Total 2200 ml 1400 ml 200 ml # Bowel Movements 2 Result Diagram: 11/18/17 0711/18/17 07 Objective Remarks GENERAL: MBMN WM, mild sob SKIN: Warm and dry. HEAD: Normocephalic. EYES: No scleral icterus. No injection or drainage. NECK: Supple, trachea midline. No JVD or lymphadenopathy. CARDIOVASCULAR: Regular rate and rhythm without murmurs, gallops, or rubs. RESPIRATORY: Breath sounds equal bilaterally. No accessory muscle use. GASTROINTESTINAL: Abdomen soft, non-tender, nondistended. Abd distended, non tender MUSCULOSKELETAL: No cyanosis, ++ edema. BACK: Nontender without obvious deformity. No CVA tenderness. A/P Assessment and Plan Bilat infilterates improving Pl eff small Abd distension MSSA Endocarditis renal failure PLAN: Aerosol nebs Cont Abx per ID Supplement 02 Pl eff small, will monitor Jony Bustamante MD Nov 18, 2017 20:02
--- NOTE | 2017-11-18 22:03 | HHI.NPPN ---
Subjective Complaints: Shortness of Breath Renal Failure: Acute History of Present Illness Patient is 27-year-old male who reported to ER with body aches, 7 days of diarrhea with development fever. Past medical history of IV drug use. Patient is sedated and ventilated FiO2 at 40 %. Nephrology is consulted for ZEUS and fluid over load status. Patients creatinine is 3.02 and GFR 25ml/min. Patient is UOP at 800cc for last 24 hours. Weight has increased by over 10 kg since admission. IVF's have been stopped and lasix has been given. Patient has endocarditis with large tricuspid valve vegetation, and pulmonic vegetation. Noted to have bacteremia with hypotension with SBP in the 90's. Additional Remarks Patient is short of breath with cough present, not in distress. Review of Systems Respiratory Lungs: SOB, Cough, Sputum Cardiovascular Cardiac Remarks denies CP Gastrointestinal GI Remarks No abdominal pain Psych Psych: Depression, Anxiety Objective Data Data 11/18/17 11/19/17 19:00 07:00 Intake Total 360 ml 100 ml Output Total 200 ml Balance 160 ml 100 ml Intake Oral 360 ml IV Total 100 ml Output Urine Total 200 ml Vital Signs Date Time Temp Pulse Resp B/P (MAP) Pulse Ox O2 Delivery O2 Flow Rate FiO2 11/18/17 21:26 Nasal Cannula 2.00 11/18/17 16:00 98.7 96 20 112/67 (82) 96 11/18/17 15:45 92 11/18/17 12:00 97.4 104 20 120/56 (77) 94 11/18/17 11:35 101 11/18/17 08:00 97.2 84 20 100/59 (73) 97 11/18/17 07:55 80 11/18/17 07:51 97 Nasal Cannula 2.00 11/18/17 04:38 97.6 83 18 104/55 (71) 92 11/18/17 04:00 87 11/18/17 01:30 Nasal Cannula 4.00 11/18/17 00:00 93 11/18/17 00:00 98.8 101 19 108/65 (79) 100 -: 11/18/17 0720 11/18/17 0720 Physical Exam General Appearance: Well Developed, Anxious Eyes Eye Exam: Pupils Equal Pulmonary Resp Exam: Breath Sounds Equal, Crackles, Rhonchi, Decreased Bases, Diminished Breath Sounds Cardiology CV Exam: Regular, Murmur Gastrointestinal/Abdomen GI Exam: Soft, Non-Tender, Bowel Sounds Present, Distended Integumentary Skin Exam: Clear, Warm Extremeties Extremities Exam: Trace Edema Neurologic Neuro Exam: Awake Psychiatric Psych Exam: Appropriate Responses Assessment/Plan Assessment Summary: ZEUS/Acute Renal Failure Electrolyte Assessment: Hyponatremia Problem List: (1) ZEUS (acute kidney injury) ICD Codes: N17.9 - Acute kidney failure, unspecified Plan: ZEUS most likely ATN from sepsis and low blood pressure. Other differential will be ATN, Acute interstitial nephritis, and Post infectious GN,unlikely. HD started on 10/08 Plan Dialysis currently through vas cath Reinsert vas cath today Hypocalcemia replacement already given. Continue Lasix at 120 mg twice a day UOP at 600 yesterday with creatinine of 3.57. Continue to monitor UOP, BMP, and watch for renal recovery. Creatinine almost same. Urine out put increased. HD to hold for now. (2) Sepsis ICD Codes: A41.9 - Sepsis, unspecified organism Status: Acute Plan: Antibiotics per ID (3) Endocarditis ICD Codes: I38 - Endocarditis, valve unspecified Status: Acute Plan: antibiotics renal dosing Problem Qualifiers (1) Sepsis: Qualified Codes: A41.9 - Sepsis, unspecified organism (2) Endocarditis: Darek Tapia MD Nov 18, 2017 22:03
[2017-11-18] MEDS: hydrOXYzine HCL 25 MG TAB PO PRN (22:32)
[2017-11-19] VITALS (10 sets, daily range): BP systolic 100–115; BP diastolic 58–71; PULSE 82–104; RESP 17–20; TEMP 97.1–98.7; O2SAT 92–98
[2017-11-19] MEDS: ACETAMINOPHEN 500 MG CPLT PO SCH ×7 (02:30→17:07)
[2017-11-19] MEDS: CHLORHEXIDINE GLUCONATE 2 % 1 PACK (2 CLOTHS) TOP SCH (02:35)
[2017-11-19] MEDS: MIDODRINE 5 MG TAB PO SCH ×3 (05:45→17:08)
[2017-11-19] MEDS: CHLORHEXIDINE 0.12% (ORAL KIT) 15 ML CUP MT SCH ×2 (08:00→20:00)
[2017-11-19] MEDS: COLLAGENASE OINT 30 GM TUBE TOPICAL SCH (09:00)
[2017-11-19] MEDS: DOCUSATE SODIUM 50 MG/SENNA 8.6 MG TAB PO SCH ×2 (09:00→20:50)
[2017-11-19] MEDS: SODIUM HYPOCHLORITE 0.125% 500 ML BTL TOPICAL SCH (09:00)
[2017-11-19] MEDS: SODIUM CHLORIDE 1 GRAM TAB PO SCH (09:56)
[2017-11-19] MEDS: METOPROLOL TARTRATE 25 MG TAB PO SCH ×2 (09:56→20:47)
[2017-11-19] MEDS: LACTOBACILLUS ACIDOPHILUS TAB PO SCH ×3 (09:56→17:08)
[2017-11-19] MEDS: DULoxetine HCl DR 60 MG CAP PO SCH (09:57)
[2017-11-19] MEDS: PANTOPRAZOLE SOD 40 MG DELAYED RELEASE TAB PO SCH ×2 (09:57→20:46)
[2017-11-19] MEDS: CALCIUM ACETATE 667 MG CAP PO SCH ×3 (09:57→17:08)
[2017-11-19] MEDS: SODIUM CHLORIDE 0.9% FLUSH 10 ML FLUSH IV FLUSH SCH ×2 (09:58→20:48)
[2017-11-19] MEDS: FUROSEMIDE 100 MG/10 ML VIAL IV PUSH SCH ×2 (09:59→20:48)
[2017-11-19] MEDS: HEPARIN SODIUM - SQ 10,000 UNITS/ML VIAL SQ SCH ×2 (10:02→20:47)
[2017-11-19] MEDS: FLUTICASONE PROPIONATE 44 MCG/ACT 10.6 GM INHALER INH SCH ×2 (10:03→20:48)
[2017-11-19] MEDS: FERROUS SULFATE 325 MG (65 MG ELEMENTAL IRON) TAB PO SCH ×2 (13:33→17:07)
[2017-11-19] MEDS: GABAPENTIN 100 MG CAP PO SCH (13:36)
--- NOTE | 2017-11-19 13:41 | HHI.PR ---
Subjective Remarks The patient denies fevers or chills. Patient denies abdominal pain, nausea vomiting. States he is urinating very well Denies chest pain or shortness of breath. Denies cough. Objective Vitals Vital Signs Date Time Temp Pulse Resp B/P (MAP) Pulse Ox O2 Delivery O2 Flow Rate FiO2 11/19/17 12:18 97.5 90 17 100/71 (81) 97 11/19/17 08:06 97.1 84 17 106/67 (80) 98 11/19/17 08:00 85 11/19/17 07:15 Nasal Cannula 4.00 11/19/17 04:00 98.7 89 18 115/58 (77) 93 11/19/17 00:00 100 11/19/17 00:00 97.8 104 18 112/63 (79) 92 11/18/17 21:45 Nasal Cannula 4.00 11/18/17 21:26 Nasal Cannula 2.00 11/18/17 20:00 100 11/18/17 20:00 97.5 94 19 105/66 (79) 99 11/18/17 16:00 98.7 96 20 112/67 (82) 96 11/18/17 15:45 92 I/O 11/18/17 11/18/17 11/18/17 11/19/17 11/19/17 11/19/17 07:00 15:00 23:00 07:00 15:00 23:00 Intake Total 100 ml 360 ml 100 ml 100 ml Output Total 1400 ml 200 ml 2400 ml Balance -1300 ml 160 ml 100 ml -2300 ml Intake Oral 100 ml 360 ml 100 ml IV Total 100 ml Output Urine Total 1400 ml 200 ml 2400 ml # Voids 1 # Bowel Movements 2 1 Result Diagram: 11/18/17 0720 11/18/17 0720 Imaging Last Impressions Chest X-Ray 11/17/17 0000 Signed Impressions: Service Date/Time: Friday, November 17, 2017 13:05 - CONCLUSION: 1. Pleural thickening and/or fluid remains along the right lateral chest wall. 2. Cardiomegaly and apparent mild pulmonary edema again noted. 3. Interval removal of central venous line. 1. Jorge Jang MD Cyst Biopsy Asp-Paracentesis US 11/10/17 0000 Signed Impressions: Service Date/Time: Friday, November 10, 2017 10:52 - CONCLUSION: Uncomplicated ultrasound guided paracentesis. Madi Mccartney MD Abdomen Ultrasound 11/07/17 0000 Signed Impressions: Service Date/Time: Tuesday, November 07, 2017 11:36 - CONCLUSION: Moderate amount of ascites confirmed for subsequent paracentesis but the patient refused the procedure and therefore was sent back to the floor. Khoi Padilla MD Chest CT 11/03/17 0000 Signed Impressions: Service Date/Time: Friday, November 03, 2017 10:16 - CONCLUSION: Scattered areas of consolidation and scattered nodular foci identified, a overall improved from the previous study however the consolidation in the right middle lobe is increased and is a change from previous studies. Chadwick Diaz MD Liver Ultrasound 10/24/17 0000 Signed Impressions: Service Date/Time: Tuesday, October 24, 2017 16:43 - CONCLUSION: Hepatosplenomegaly with ascites. Echogenic kidney Madi Mccartney MD Abdomen/Pelvis CT 10/24/17 0000 Signed Impressions: Service Date/Time: Tuesday, October 24, 2017 21:37 - CONCLUSION: 1. Hepatosplenomegaly. 2. Moderate amount of ascites. 3. Diffuse anasarca. 4. Bibasilar pleural effusions and scattered infiltrates. Khoi Padilla MD Tunnelled Chest Tube Removal 10/20/17 0000 Signed Impressions: Service Date/Time: Friday, October 20, 2017 00:00 - CONCLUSION: Uncomplicated chest tube removal. Madi Mccartney MD Upper Extremity Ultrasound 10/13/17 0000 Signed Impressions: Service Date/Time: Friday, October 13, 2017 11:25 - CONCLUSION: Normal examination. Christian Kaur MD Abdomen X-Ray 10/10/17 0000 Signed Impressions: Service Date/Time: Tuesday, October 10, 2017 16:46 - CONCLUSION: Negative for free air or obstruction. Rahul Yarbrough MD FACR Chest Tube Insertion 10/06/17 0000 Signed Impressions: Service Date/Time: Friday, October 06, 2017 15:37 - CONCLUSION: Uncomplicated chest tube placement as above. Emerson Hui MD Objective Remarks AAOx3 nad S1S2 RRR, soft 2/6 systolic murmur Abdomen soft, nt, mildly, distended Clear lungs BL +1 edema in lower extremities BL Procedures CT-guided chest tube placement on left chest. Date 10/06/17. Medications and IVs Current Medications Medications (Trade) Dose Ordered Sig/Willem Route Start Time Stop Time Status Last Admin (NS Flush) 2 ml UNSCH PRN IV FLUSH 10/03/17 21:15 11/17/17 06:46 (NS Flush) 2 ml BID IV FLUSH 10/04/17 09:00 11/19/17 09:58 (Zofran Inj) 4 mg Q6H PRN IV PUSH 10/03/17 21:15 11/11/17 11:45 (Restoril) 15 mg HS PRN PO 10/03/17 21:15 11/13/17 22:49 Miscellaneous Information 1 Q361D XX 10/03/17 21:15 (Chlorhexidine 2% Cloth) Taper DAILY@04 TOP 10/04/17 04:00 09/30/18 03:59 10/26/17 21:40 (Chlorhexidine 2% Cloth) 3 pack UNSCH PRN TOP 10/03/17 21:15 (Renita-Colace) 1 tab BID PO 10/04/17 09:00 11/18/17 22:20 (Senokot) 17.2 mg Q12H PRN PO 10/03/17 21:15 (Dulcolax Supp) 10 mg DAILY PRN RECTAL 10/03/17 21:15 10/11/17 17:08 (Lactulose Liq) 30 ml DAILY PRN PO 10/03/17 21:15 10/11/17 17:08 (Flovent Hfa 44 Mcg Inh) 2 puff BID INH 10/04/17 09:00 11/19/17 10:03 (Peridex 0.12% Liq) 15 ml BID@08,20 MT 10/04/17 20:00 11/18/17 08:00 Sodium Chloride 1,000 ml @ 0 mls/hr Q0M PRN OTHER 10/08/17 10:33 11/15/17 14:56 (Heparin Inj) 8,000 units UNSCH PRN IV FLUSH 10/08/17 10:45 Sodium Chloride 1,000 ml @ 200 mls/hr Q5H PRN IV 10/08/17 11:15 11/08/17 09:57 Sodium Chloride 1,000 ml @ 0 mls/hr Q0M PRN OTHER 10/08/17 11:15 (Mannitol Inj) 12.5 gm UNSCH PRN IV 10/08/17 11:15 11/13/17 11:06 Albumin Human 100 ml @ 60 mls/hr UNSCH PRN IV 10/08/17 11:30 11/13/17 11:05 (NS Flush) 5 ml UNSCH PRN IV FLUSH 10/08/17 11:15 11/15/17 14:56 (Heparin Inj) UNSCH PRN .XX 10/08/17 11:15 11/15/17 14:57 (Gentamicin Inj) 20 mg UNSCH PRN OTHER 10/08/17 11:15 11/15/17 14:57 (Zofran Inj) 4 mg UNSCH PRN IV PUSH 10/08/17 11:15 11/15/17 15:48 (Nitrostat Sl) 0.4 mg UNSCH PRN SL 10/08/17 11:30 (Catapres) 0.1 mg UNSCH PRN PO 10/08/17 11:30 (Epogen Inj) 10,000 units UNSCH PRN IV PUSH 10/08/17 11:30 11/15/17 14:57 (Gelfoam 12 Mm/7 Mm Top) 1 foam UNSCH PRN TOP 10/08/17 11:30 (Lactinex) 1 tab TID PO 10/17/17 13:00 11/19/17 09:56 (Duragesic 100 Mcg Patch.72 Hr) 1 patch Q3D T-DERMAL 10/18/17 12:00 11/08/17 13:18 Miscellaneous Information 1 Q3D T-DERMAL 10/21/17 12:00 11/14/17 12:00 (Albuterol Neb) 2.5 mg Q2HR NEB PRN NEB 10/21/17 13:30 11/18/17 07:51 (Protonix) 40 mg Q12HR PO 10/21/17 21:00 11/19/17 09:57 (Heparin Inj) 5,000 units Q12HR SQ 10/21/17 21:00 11/19/17 10:02 (Phoslo) 667 mg TID PO 10/23/17 13:00 11/19/17 09:57 Cefazolin Sodium 1000 mg/Sodium Chloride 100 ml @ 200 mls/hr Q12H IV 10/24/17 03:00 11/19/17 02:35 (Haldol Inj) 5 mg Q4H PRN IV PUSH 10/23/17 23:30 10/26/17 23:39 (Sodium Chloride) 1 gm DAILY PO 10/26/17 09:00 11/19/17 09:56 (Ferrous Sulfate) 325 mg BID@12,17 PO 10/27/17 12:00 11/18/17 16:25 (Tylenol) 500 mg Q6HR PO 10/31/17 00:00 11/19/17 05:45 (Roxicodone) 5 mg Q6H PRN PO 10/30/17 20:00 11/19/17 08:17 (Zanaflex) 2 mg Q8HR PO 10/30/17 22:00 11/19/17 05:45 (Atarax) 50 mg Q8H PRN PO 10/31/17 17:15 11/18/17 22:32 (Cymbalta Dr) 60 mg DAILY PO 11/03/17 12:00 11/19/17 09:57 (Neurontin) 300 mg Q24H PO 11/06/17 13:00 11/18/17 12:34 (Narcan Inj) 0.4 mg Q2M PRN IV PUSH 11/08/17 20:15 11/08/17 20:16 (Santyl Oint) 1 applic DAILY TOPICAL 11/11/17 09:00 11/18/17 08:12 (Dakin'S 0.125% Soln) 500 ml DAILY TOPICAL 11/11/17 09:00 11/18/17 08:12 (Proamatine) 10 mg TID@,,17 PO 11/11/17 12:00 11/19/17 05:45 (Lopressor) 12.5 mg BID PO 11/11/17 21:00 11/19/17 09:56 (Pill Splitter) 1 ea UNSCH PRN OTHER 11/11/17 19:00 (Lasix Inj) 120 mg BID IV PUSH 11/16/17 21:00 11/19/17 09:59 A/P Problem List: (1) Endocarditis ICD Code: I38 - Endocarditis, valve unspecified Status: Acute (2) MSSA bacteremia ICD Code: R78.81 - Bacteremia (3) Tricuspid valve vegetation ICD Code: I33.0 - Acute and subacute infective endocarditis (4) IV drug abuse ICD Code: F19.10 - Other psychoactive substance abuse, uncomplicated (5) Pleural effusion, bilateral ICD Code: J90 - Pleural effusion, not elsewhere classified (6) Septic embolism ICD Code: I26.90 - Septic pulmonary embolism without acute cor pulmonale Status: Acute (7) Hepatitis C ICD Code: B19.20 - Unspecified viral hepatitis C without hepatic coma (8) Hepatosplenomegaly ICD Code: R16.2 - Hepatomegaly with splenomegaly, not elsewhere classified (9) Sacral decubitus ulcer, stage IV ICD Code: L89.154 - Pressure ulcer of sacral region, stage 4 Status: Acute (10) Anasarca ICD Code: R60.1 - Generalized edema (11) Acute systolic heart failure ICD Code: I50.21 - Acute systolic (congestive) heart failure (12) Moderate protein-calorie malnutrition ICD Code: E44.0 - Moderate protein-calorie malnutrition Status: Acute (13) Hyponatremia ICD Code: E87.1 - Hypo-osmolality and hyponatremia Status: Acute (14) ZEUS (acute kidney injury) ICD Code: N17.9 - Acute kidney failure, unspecified (15) Anemia ICD Code: D64.9 - Anemia, unspecified (16) Debility ICD Code: R53.81 - Other malaise Status: Acute (17) Transaminitis ICD Code: R74.0 - Nonspecific elevation of levels of transaminase and lactic acid dehydrogenase [LDH] Status: Resolved (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 Repeat bedside echocardiogram on 10/18 showed a similar size vegetation. Cardiology and CT surgery has followed. D/W Dr. Charles declined surgery due to active IV drug use, multiple medical complications. Discussed with [facility] who agreed with plan of our cardiothoracic surgeon. [facility] administration has denied the patient as well per CM. ID consulted. Continue IV antibiotics as per ID. Currently on IV cefazolin. (2) MSSA bacteremia Plan: Continue IV antibiotics as per ID. Last blood cultures on 10/18 negative 5. (3) Tricuspid valve vegetation Plan: Cardiology consulted and following. Dr Mirna rosadoned performing surgery on patient. (4) IV drug abuse Plan: The patient states he has not used drugs in 3 months. Advised and reinforced drug cessation. (5) Pleural effusion, bilateral Plan: Likely secondary to fluid overload and acute systolic heart failure. The patient hasis being dialyzed repeat chest x-ray on 11/14 showed cardiomegaly with improving bilateral perihilar edema. Moderate right pleural effusion. Images reviewed by me. We will continue to follow and repeat chest x-ray in a couple days to see evolution of pleural effusion. The patient might require thoracentesis. 11/17 Patient coughing - check CXR. (6) Septic embolism Plan: Secondary to tricuspid valve endocarditis. 11/12 previously on 4 L nasal cannula, respiratory status improving with patient on 2 L nasal cannula. (7) Hepatitis C Plan: Hepatitis C antibody reactive. Hepatitis C viral load 24086. Hepatitis C genotype 1A. Hepatitic ultrasound revealed hepatosplenomegaly. We will refer to GI as an outpatient for treatment. (8) Hepatosplenomegaly Plan: As seen on CT of the abdomen and pelvis with moderate amount of ascites and diffuse anasarca. (9) Sacral decubitus ulcer, stage IV Plan: wound care consulted - fu recommendations. Recommended plastic surgery consult for debridement. 11/12 consult plastic surgery. Continue wound care. (10) Anasarca Plan: As evidenced by bilateral pleural effusions, ascites and anasarca described on CT abdomen and pelvis. Patient refused abdominal paracentesis. Patient being dialyzed. 11/10 For Diagnostic and therapeutic abdominal paracentesis today. SP abdominal paracentesis on 11/10. Ascitic fluid non infectious. (11) Acute systolic heart failure Plan: Echo with EF of 35-40%. Treat fluid overload with dialysis. (12) Moderate protein-calorie malnutrition Plan: Dietitian consulted, recommends liberalize diet to allow more fluid options and hopefully increase p.o. intake. Nepro twice daily with encouragement. (13) Hyponatremia Plan: On fluid restriction - continue. Sodium stable at 131. (14) ZEUS (acute kidney injury) Plan: Most likely due to ATN from sepsis and low blood pressure. HD started on 10/08. Continue dialysis as per nephrology. Dialysis currently on Friday/ and Friday schedule. Avoid nephrotoxins, continue to monitor BUN and creatinine. (15) Anemia Plan: On ferrous sulfate and Epogen as per nephrology. Anemia likely secondary to chronic kidney disease. 11/09 hemoglobin dropped from 8.9-7.7. No obvious bleeding. Continue to monitor hemoglobin and hematocrit. Transfuse as needed for hemoglobin less than 7 or symptomatic anemia. Epogen as per nephrology. Hemoglobin stable. (16) Debility Plan: Continue PT and OT. Patient will need to go to rehab upon discharge. (17) Transaminitis Plan: Now resolved. Continue to monitor liver function tests. Transaminitis likely secondary to sepsis and hepatitis C. 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 Pain seems to be controlled. (19) MARTÍN positive Plan: The patient also has a positive MARTÍN with a titer of 1: 40 with a diffuse pattern. This is a low pattern and the patient does not have any other symptoms consistent with rheumatic disease. Will not pursue any further testing. The patient will need to follow-up as an outpatient by his primary care physician. (20) Hypotension Plan: Unclear etiology of hypotension. However the patient is on hemodialysis and is hypoalbuminemic, also patient is on several medications to control pain including fentanyl patch, Roxicodone, gabapentin. All of these factors could be contributing to the patient's hypotension. Upon review of records the patient has been hypotensive for some time now. Patient's hypotension started on 10/31/17 and blood pressure occasionally goes up , however it is most consistently in the high 80s to low 90s systolic. Start midodrine for blood pressure support. 11/10 BP better but bp still lowin the 90's systolic. Increase Midodrine dose to 10 mg po tid. BP still borderline low, continue midodrine. Patient asymptomatic. DVT prophylaxis: SCDs, heparin subcutaneously. Discharge Planning Patient with endocarditis/MSSA bacteremia, ZEUS on IV antibiotics and hemodialysis which is on hold. Will need ID and nephrology clearance. Problem Qualifiers (1) Endocarditis: (2) Hepatitis C: (3) Anemia: (4) Hypotension: Qualified Codes: I95.9 - Hypotension, unspecified Nathan Krishnan MD Nov 19, 2017 13:41
[2017-11-19 14:03] LABS: BICARBONATE 29.3 MEQ/L (21.0-32.0); CREATININE 3.4 MG/DL (0.60-1.30)
[2017-11-19 14:09] LABS: HEMATOCRIT 28.3 % (39.0-51.0); HEMOGLOBIN 9.4 GM/DL (13.0-17.0); MEAN CELL VOLUME 85.7 FL (80.0-100.0); MEAN CORPUSCULAR HEMOGLOBIN 28.4 PG (27.0-34.0); MEAN CORPUSCULAR HGB CONC 33.2 % (32.0-36.0); MEAN PLATELET VOLUME 8.1 FL (7.0-11.0); PLATELET COUNT 164 TH/MM3 (150-450); RED BLOOD COUNT 3.31 MIL/MM3 (4.50-5.90); RED CELL DISTRIBUTION WIDTH 20.9 % (11.6-17.2); WHITE BLOOD COUNT 6.7 TH/MM3 (4.0-11.0)
--- NOTE | 2017-11-19 15:32 | HHI.NPPN ---
Subjective Complaints: Shortness of Breath Renal Failure: Acute History of Present Illness Patient is 27-year-old male who reported to ER with body aches, 7 days of diarrhea with development fever. Past medical history of IV drug use. Patient is sedated and ventilated FiO2 at 40 %. Nephrology is consulted for ZEUS and fluid over load status. Patients creatinine is 3.02 and GFR 25ml/min. Patient is UOP at 800cc for last 24 hours. Weight has increased by over 10 kg since admission. IVF's have been stopped and lasix has been given. Patient has endocarditis with large tricuspid valve vegetation, and pulmonic vegetation. Noted to have bacteremia with hypotension with SBP in the 90's. Additional Remarks Patient is resting comfortably this morning. Continues to have good UOP (Venus Barrett) Review of Systems Respiratory Lungs: SOB Respiratory Remarks Improved (Venus Barrett) Cardiovascular Cardiac Remarks denies CP (Venus Barrett) Gastrointestinal GI Remarks No abdominal pain (Venus Barrett) Psych Psych: Depression, Anxiety (Venus Barrett) Objective Data Data Vital Signs Date Time Temp Pulse Resp B/P (MAP) Pulse Ox O2 Delivery O2 Flow Rate FiO2 11/19/17 12:18 97.5 90 17 100/71 (81) 97 11/19/17 08:06 97.1 84 17 106/67 (80) 98 11/19/17 08:00 85 11/19/17 07:15 Nasal Cannula 4.00 11/19/17 04:00 98.7 89 18 115/58 (77) 93 11/19/17 00:00 100 11/19/17 00:00 97.8 104 18 112/63 (79) 92 11/18/17 21:45 Nasal Cannula 4.00 11/18/17 21:26 Nasal Cannula 2.00 11/18/17 20:00 100 11/18/17 20:00 97.5 94 19 105/66 (79) 99 11/18/17 16:00 98.7 96 20 112/67 (82) 96 11/18/17 15:45 92 (Venus Barrett) -: 11/19/17 1301 11/19/17 1301 Physical Exam General Appearance: Well Developed, Anxious (Venus Barrett. SUBJECT SCIENTIFIC RESEARCH) Eyes Eye Exam: Pupils Equal (Venus Barrett SUBJECT SCIENTIFIC RESEARCH) Pulmonary Resp Exam: Breath Sounds Equal, Crackles, Rhonchi, Decreased Bases, Diminished Breath Sounds (Venus Barrett M. SUBJECT SCIENTIFIC RESEARCH) Cardiology CV Exam: Regular, Murmur (Venus Barrett. SUBJECT SCIENTIFIC RESEARCH) Gastrointestinal/Abdomen GI Exam: Soft, Non-Tender, Bowel Sounds Present, Distended (Venus Barrett. SUBJECT SCIENTIFIC RESEARCH) Integumentary Skin Exam: Clear, Warm (Venus Barrett. SUBJECT SCIENTIFIC RESEARCH) Extremeties Extremities Exam: Trace Edema (Venus Barrett. SUBJECT SCIENTIFIC RESEARCH) Neurologic Neuro Exam: Awake (Venus Barrett SUBJECT SCIENTIFIC RESEARCH) Psychiatric Psych Exam: Appropriate Responses (Venus Barrett SUBJECT SCIENTIFIC RESEARCH) Assessment/Plan Assessment Summary: ZEUS/Acute Renal Failure Electrolyte Assessment: Hyponatremia Problem List: (1) ZEUS (acute kidney injury) ICD Codes: N17.9 - Acute kidney failure, unspecified Plan: ZEUS most likely ATN from sepsis and low blood pressure. Other differential will be ATN, Acute interstitial nephritis, and Post infectious GN,unlikely. HD started on 10/08 Plan Dialysis currently T/ through vas cath Continue Lasix at 120 mg twice a day good UOP and creatinine has remained stable. Continue to monitor UOP, BMP, and monitor renal recovery. HD to hold for now. (2) Sepsis ICD Codes: A41.9 - Sepsis, unspecified organism Status: Acute Plan: Antibiotics per ID (3) Endocarditis ICD Codes: I38 - Endocarditis, valve unspecified Status: Acute Plan: antibiotics renal dosing (Venus Barrett. SUBJECT SCIENTIFIC RESEARCH) Problem List: (1) ZEUS (acute kidney injury) ICD Codes: N17.9 - Acute kidney failure, unspecified Plan: ZEUS most likely ATN from sepsis and low blood pressure. Other differential will be ATN, Acute interstitial nephritis, and Post infectious GN,unlikely. HD started on 10/08 Plan Dialysis currently T/ through vas cath Continue Lasix at 120 mg twice a day good UOP and creatinine has remained stable. Continue to monitor UOP, BMP, and monitor renal recovery. HD to hold for now. Patient seen and examined, agree with above. Follow the urine out put and BMP. (2) Sepsis ICD Codes: A41.9 - Sepsis, unspecified organism Status: Acute Plan: Antibiotics per ID (3) Endocarditis ICD Codes: I38 - Endocarditis, valve unspecified Status: Acute Plan: antibiotics renal dosing (Darek Tapia MD) Problem Qualifiers (1) Sepsis: Qualified Codes: A41.9 - Sepsis, unspecified organism (2) Endocarditis: Venus Barrett Nov 19, 2017 15:32 Darek Tapia MD Nov 19, 2017 18:39
--- NOTE | 2017-11-19 21:46 | HHI.PR ---
Subjective Remarks 27 YOWM with bilat infilt, pl eff, MSSA Endocarditis up in chair Cough with small amount of sp Breathing better Weaned to RA Good urine output Objective Vital Signs Vital Signs Date Time Temp Pulse Resp B/P (MAP) Pulse Ox O2 Delivery O2 Flow Rate FiO2 11/19/17 21:21 Nasal Cannula 2.00 11/19/17 21:03 97.7 98 20 109/58 (75) 97 11/19/17 16:06 98.0 92 17 107/70 (82) 93 11/19/17 16:00 82 11/19/17 12:18 97.5 90 17 100/71 (81) 97 11/19/17 12:00 86 11/19/17 08:06 97.1 84 17 106/67 (80) 98 11/19/17 08:00 85 11/19/17 07:15 Nasal Cannula 4.00 11/19/17 04:00 98.7 89 18 115/58 (77) 93 11/19/17 00:00 100 11/19/17 00:00 97.8 104 18 112/63 (79) 92 I/O 11/18/17 11/18/17 11/18/17 11/19/17 11/19/17 11/19/17 07:00 15:00 23:00 07:00 15:00 23:00 Intake Total 100 ml 360 ml 100 ml 100 ml 480 ml Output Total 1400 ml 200 ml 2400 ml 1750 ml Balance -1300 ml 160 ml 100 ml -2300 ml -1270 ml Intake Oral 100 ml 360 ml 100 ml 480 ml IV Total 100 ml Output Urine Total 1400 ml 200 ml 2400 ml 1750 ml # Voids 1 # Bowel Movements 2 1 0 Result Diagram: 11/19/17 1301 11/19/17 1301 Objective Remarks GENERAL: MBMN WM, mild sob SKIN: Warm and dry. HEAD: Normocephalic. EYES: No scleral icterus. No injection or drainage. NECK: Supple, trachea midline. No JVD or lymphadenopathy. CARDIOVASCULAR: Regular rate and rhythm without murmurs, gallops, or rubs. RESPIRATORY: Breath sounds equal bilaterally. No accessory muscle use. GASTROINTESTINAL: Abdomen soft, non-tender, nondistended. Abd distended, non tender MUSCULOSKELETAL: No cyanosis, ++ edema. BACK: Nontender without obvious deformity. No CVA tenderness. A/P Assessment and Plan Bilat infilterates improving Pl eff small Abd distension MSSA Endocarditis renal failure PLAN: Aerosol nebs Cont Abx per ID Supplement 02 Pl eff small, will monitor Stable from Pulm standpoint Jony Bustamante MD Nov 19, 2017 21:46
[2017-11-19] MEDS: TEMAZEPAM 15 MG CAP PO PRN (23:13)
[2017-11-20] VITALS (14 sets, daily range): BP systolic 99–121; BP diastolic 58–79; PULSE 70–108; RESP 17–20; TEMP 97.7–98.3; O2SAT 94–98
[2017-11-20] MEDS: ACETAMINOPHEN 500 MG CPLT PO SCH
--- NOTE | 2017-11-20 02:22 | HHI.PR ---
Subjective Remarks NOT SEEN Objective Vitals Vital Signs Date Time Temp Pulse Resp B/P (MAP) Pulse Ox O2 Delivery O2 Flow Rate FiO2 11/20/17 01:05 98.1 70 18 109/70 (83) 96 11/20/17 00:29 100 11/19/17 21:21 Nasal Cannula 2.00 11/19/17 21:03 97.7 98 20 109/58 (75) 97 11/19/17 20:04 91 11/19/17 16:06 98.0 92 17 107/70 (82) 93 11/19/17 16:00 82 11/19/17 12:18 97.5 90 17 100/71 (81) 97 11/19/17 12:00 86 11/19/17 08:06 97.1 84 17 106/67 (80) 98 11/19/17 08:00 85 11/19/17 07:15 Nasal Cannula 4.00 11/19/17 04:00 98.7 89 18 115/58 (77) 93 I/O 11/19/17 11/19/17 11/19/17 11/20/17 11/20/17 11/20/17 07:00 15:00 23:00 07:00 15:00 23:00 Intake Total 100 ml 480 ml Output Total 2400 ml 1750 ml Balance -2300 ml -1270 ml Intake Oral 100 ml 480 ml Output Urine Total 2400 ml 1750 ml # Voids 1 # Bowel Movements 1 0 Result Diagram: 11/19/17 1301 11/19/17 1301 Imaging Last Impressions Chest X-Ray 11/17/17 0000 Signed Impressions: Service Date/Time: Friday, November 17, 2017 13:05 - CONCLUSION: 1. Pleural thickening and/or fluid remains along the right lateral chest wall. 2. Cardiomegaly and apparent mild pulmonary edema again noted. 3. Interval removal of central venous line. 1. Jorge Jang MD Cyst Biopsy Asp-Paracentesis US 11/10/17 0000 Signed Impressions: Service Date/Time: Friday, November 10, 2017 10:52 - CONCLUSION: Uncomplicated ultrasound guided paracentesis. Madi Mccartney MD Abdomen Ultrasound 11/07/17 0000 Signed Impressions: Service Date/Time: Tuesday, November 07, 2017 11:36 - CONCLUSION: Moderate amount of ascites confirmed for subsequent paracentesis but the patient refused the procedure and therefore was sent back to the floor. Khoi Padilla MD Chest CT 11/03/17 0000 Signed Impressions: Service Date/Time: Friday, November 03, 2017 10:16 - CONCLUSION: Scattered areas of consolidation and scattered nodular foci identified, a overall improved from the previous study however the consolidation in the right middle lobe is increased and is a change from previous studies. Chadwick Diaz MD Liver Ultrasound 10/24/17 0000 Signed Impressions: Service Date/Time: Tuesday, October 24, 2017 16:43 - CONCLUSION: Hepatosplenomegaly with ascites. Echogenic kidney Madi Mccartney MD Abdomen/Pelvis CT 10/24/17 0000 Signed Impressions: Service Date/Time: Tuesday, October 24, 2017 21:37 - CONCLUSION: 1. Hepatosplenomegaly. 2. Moderate amount of ascites. 3. Diffuse anasarca. 4. Bibasilar pleural effusions and scattered infiltrates. Khoi Padilla MD Tunnelled Chest Tube Removal 10/20/17 0000 Signed Impressions: Service Date/Time: Friday, October 20, 2017 00:00 - CONCLUSION: Uncomplicated chest tube removal. Madi Mccartney MD Upper Extremity Ultrasound 10/13/17 0000 Signed Impressions: Service Date/Time: Friday, October 13, 2017 11:25 - CONCLUSION: Normal examination. Christian Kaur MD Abdomen X-Ray 10/10/17 0000 Signed Impressions: Service Date/Time: Tuesday, October 10, 2017 16:46 - CONCLUSION: Negative for free air or obstruction. Rahul Yarbrough MD FACR Chest Tube Insertion 10/06/17 0000 Signed Impressions: Service Date/Time: Friday, October 06, 2017 15:37 - CONCLUSION: Uncomplicated chest tube placement as above. Emerson Hui MD Objective Remarks AAOx3 nad S1S2 RRR, soft 2/6 systolic murmur Abdomen soft, nt, mildly, distended Clear lungs BL +1 edema in lower extremities BL Procedures CT-guided chest tube placement on left chest. Date 10/06/17. Paracentesis central line A/P Problem List: (1) Endocarditis ICD Code: I38 - Endocarditis, valve unspecified Status: Acute (2) MSSA bacteremia ICD Code: R78.81 - Bacteremia (3) Tricuspid valve vegetation ICD Code: I33.0 - Acute and subacute infective endocarditis (4) IV drug abuse ICD Code: F19.10 - Other psychoactive substance abuse, uncomplicated (5) Pleural effusion, bilateral ICD Code: J90 - Pleural effusion, not elsewhere classified (6) Septic embolism ICD Code: I26.90 - Septic pulmonary embolism without acute cor pulmonale Status: Acute (7) Hepatitis C ICD Code: B19.20 - Unspecified viral hepatitis C without hepatic coma (8) Hepatosplenomegaly ICD Code: R16.2 - Hepatomegaly with splenomegaly, not elsewhere classified (9) Sacral decubitus ulcer, stage IV ICD Code: L89.154 - Pressure ulcer of sacral region, stage 4 Status: Acute (10) Anasarca ICD Code: R60.1 - Generalized edema (11) Acute systolic heart failure ICD Code: I50.21 - Acute systolic (congestive) heart failure (12) Moderate protein-calorie malnutrition ICD Code: E44.0 - Moderate protein-calorie malnutrition Status: Acute (13) Hyponatremia ICD Code: E87.1 - Hypo-osmolality and hyponatremia Status: Acute (14) ZEUS (acute kidney injury) ICD Code: N17.9 - Acute kidney failure, unspecified (15) Anemia ICD Code: D64.9 - Anemia, unspecified (16) Debility ICD Code: R53.81 - Other malaise Status: Acute (17) Transaminitis ICD Code: R74.0 - Nonspecific elevation of levels of transaminase and lactic acid dehydrogenase [LDH] Status: Resolved (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 Repeat bedside echocardiogram on 10/18 showed a similar size vegetation. Cardiology and CT surgery has followed. D/W Dr. Charles declined surgery due to active IV drug use, multiple medical complications. Discussed with [facility] who agreed with plan of our cardiothoracic surgeon. [facility] administration has denied the patient as well per CM. ID consulted. Continue IV antibiotics as per ID. Currently on IV cefazolin. (2) MSSA bacteremia Plan: Continue IV antibiotics as per ID. Last blood cultures on 10/18 negative 5. (3) Tricuspid valve vegetation Plan: Cardiology consulted and following. Dr Charles declined performing surgery on patient. (4) IV drug abuse Plan: The patient states he has not used drugs in 3 months. Advised and reinforced drug cessation. (5) Pleural effusion, bilateral Plan: Likely secondary to fluid overload and acute systolic heart failure. The patient is being dialyzed s/p thoracentesis. (6) Septic embolism Plan: Secondary to tricuspid valve endocarditis. 11/12 previously on 4 L nasal cannula, respiratory status improving with patient on 2 L nasal cannula. (7) Hepatitis C Plan: Hepatitis C antibody reactive. Hepatitis C viral load 35491. Hepatitis C genotype 1A. Hepatitic ultrasound revealed hepatosplenomegaly. We will refer to GI as an outpatient for treatment. (8) Hepatosplenomegaly Plan: As seen on CT of the abdomen and pelvis with moderate amount of ascites and diffuse anasarca. (9) Sacral decubitus ulcer, stage IV Plan: wound care consulted - fu recommendations. 11/12 consulted plastic surgery. Continue wound care. (10) Anasarca Plan: As evidenced by bilateral pleural effusions, ascites and anasarca described on CT abdomen and pelvis. Patient being dialyzed. 11/10 For Diagnostic and therapeutic abdominal paracentesis today. SP abdominal paracentesis on 11/10. Ascitic fluid non infectious. (11) Acute systolic heart failure Plan: Echo with EF of 35-40%. Treat fluid overload with dialysis. (12) Moderate protein-calorie malnutrition Plan: Dietitian consulted, recommends liberalize diet to allow more fluid options and hopefully increase p.o. intake. Nepro twice daily with encouragement. (13) Hyponatremia Plan: On fluid restriction - continue. Sodium stable at 131. (14) ZEUS (acute kidney injury) Plan: Most likely due to ATN from sepsis and low blood pressure. HD started on 10/08. Continue dialysis as per nephrology. Dialysis currently on Friday/ and Friday schedule. Avoid nephrotoxins, continue to monitor BUN and creatinine. (15) Anemia Plan: On ferrous sulfate and Epogen as per nephrology. Anemia likely secondary to chronic kidney disease. 11/09 hemoglobin dropped from 8.9-7.7. No obvious bleeding. Continue to monitor hemoglobin and hematocrit. Transfuse as needed for hemoglobin less than 7 or symptomatic anemia. Epogen as per nephrology. Hemoglobin stable. (16) Debility Plan: Continue PT and OT. Patient will need to go to rehab upon discharge. (17) Transaminitis Plan: Now resolved. Continue to monitor liver function tests. Transaminitis likely secondary to sepsis and hepatitis C. (18) Chronic pain syndrome Continue gabapentin, duloxetine, tizanidine, oxycodone. Pain seems to be controlled. (19) MARTÍN positive Plan: The patient also has a positive MARTÍN with a titer of 1: 40 with a diffuse pattern. This is a low pattern and the patient does not have any other symptoms consistent with rheumatic disease. Will not pursue any further testing. The patient will need to follow-up as an outpatient by his primary care physician. (20) Hypotension Plan: Unclear etiology of hypotension. However the patient is on hemodialysis and is hypoalbuminemic, also patient is on several medications to control pain including fentanyl patch, Roxicodone, gabapentin. All of these factors could be contributing to the patient's hypotension. Upon review of records the patient has been hypotensive for some time now. Patient's hypotension started on 10/31/17 and blood pressure occasionally goes up , however it is usually in the high 80s to low 90s systolic. Start midodrine for blood pressure support. 11/10 BP better but bp still lowin the 90's systolic. Increase Midodrine dose to 10 mg po tid. BP still borderline low, continue midodrine. Patient asymptomatic. DVT prophylaxis: SCDs, heparin subcutaneously. Discharge Planning Patient with endocarditis/MSSA bacteremia on IV antibiotics and ZEUS on hemodialysis. Will need ID and nephrology clearance. Problem Qualifiers (1) Endocarditis: (2) Hepatitis C: (3) Anemia: (4) Hypotension: Qualified Codes: I95.9 - Hypotension, unspecified Rashad Langston MD Nov 20, 2017 02:22
[2017-11-20] MEDS ORDERED: ACETAMINOPHEN 500 MG CPLT PO PRN (02:45)
[2017-11-20] MEDS: MIDODRINE 5 MG TAB PO SCH ×3 (05:21→17:16)
[2017-11-20] MEDS: RESP: ALBUTEROL 2.5 MG/3 ML NEB (PRN) NEB ×3 (08:30→19:39)
[2017-11-20] MEDS: HEPARIN SODIUM - SQ 10,000 UNITS/ML VIAL SQ SCH ×3 (09:00→21:24)
[2017-11-20] MEDS: DOCUSATE SODIUM 50 MG/SENNA 8.6 MG TAB PO SCH ×2 (09:00→21:00)
[2017-11-20 09:23] LABS: HEMATOCRIT 29.3 % (39.0-51.0); HEMOGLOBIN 9.6 GM/DL (13.0-17.0); MEAN CELL VOLUME 85.5 FL (80.0-100.0); MEAN CORPUSCULAR HGB CONC 32.8 % (32.0-36.0); MEAN PLATELET VOLUME 7.9 FL (7.0-11.0); PLATELET COUNT 179 TH/MM3 (150-450); RED BLOOD COUNT 3.43 MIL/MM3 (4.50-5.90); RED CELL DISTRIBUTION WIDTH 20.3 % (11.6-17.2); WHITE BLOOD COUNT 7.3 TH/MM3 (4.0-11.0)
[2017-11-20] MEDS: PANTOPRAZOLE SOD 40 MG DELAYED RELEASE TAB PO SCH ×2 (09:37→21:23)
[2017-11-20] MEDS: CALCIUM ACETATE 667 MG CAP PO SCH ×3 (09:39→17:17)
[2017-11-20] MEDS: LACTOBACILLUS ACIDOPHILUS TAB PO SCH ×3 (09:40→17:16)
[2017-11-20] MEDS: SODIUM CHLORIDE 0.9% FLUSH 10 ML FLUSH IV FLUSH SCH ×2 (09:40→21:24)
[2017-11-20] MEDS: SODIUM CHLORIDE 1 GRAM TAB PO SCH (09:40)
[2017-11-20] MEDS: FUROSEMIDE 100 MG/10 ML VIAL IV PUSH SCH (09:40)
[2017-11-20] MEDS: DULoxetine HCl DR 60 MG CAP PO SCH (09:40)
[2017-11-20] MEDS: CHLORHEXIDINE 0.12% (ORAL KIT) 15 ML CUP MT SCH ×2 (09:41→20:00)
[2017-11-20] MEDS: SODIUM HYPOCHLORITE 0.125% 500 ML BTL TOPICAL SCH (09:44)
[2017-11-20] MEDS: COLLAGENASE OINT 30 GM TUBE TOPICAL SCH (09:44)
[2017-11-20] MEDS: FLUTICASONE PROPIONATE 44 MCG/ACT 10.6 GM INHALER INH SCH ×2 (09:44→21:00)
[2017-11-20] MEDS: METOPROLOL TARTRATE 25 MG TAB PO SCH ×2 (09:46→21:24)
[2017-11-20 09:49] LABS: BICARBONATE 30.5 MEQ/L (21.0-32.0); CALCIUM 8.1 MG/DL (8.5-10.1); CREATININE 3.27 MG/DL (0.60-1.30)
--- NOTE | 2017-11-20 10:58 | HHI.NPPN ---
Subjective Complaints: Shortness of Breath Renal Failure: Acute History of Present Illness Patient is 27-year-old male who reported to ER with body aches, 7 days of diarrhea with development fever. Past medical history of IV drug use. Patient is sedated and ventilated FiO2 at 40 %. Nephrology is consulted for ZEUS and fluid over load status. Patients creatinine is 3.02 and GFR 25ml/min. Patient is UOP at 800cc for last 24 hours. Weight has increased by over 10 kg since admission. IVF's have been stopped and lasix has been given. Patient has endocarditis with large tricuspid valve vegetation, and pulmonic vegetation. Noted to have bacteremia with hypotension with SBP in the 90's. Additional Remarks Patient is resting comfortably this morning. Continues to have good UOP. Abdomen is distended. (eVnus Barrett) Review of Systems Respiratory Lungs: SOB Respiratory Remarks Improved (Venus Barrett) Cardiovascular Cardiac Remarks denies CP (Venus Barrett) Gastrointestinal GI Remarks No abdominal pain (Venus Barrett) Psych Psych: Depression, Anxiety (Venus Barrett) Objective Data Data Vital Signs Date Time Temp Pulse Resp B/P (MAP) Pulse Ox O2 Delivery O2 Flow Rate FiO2 11/20/17 08:06 97.9 97 17 99/67 (78) 94 11/20/17 07:59 95 11/20/17 07:30 Nasal Cannula 2.00 30 11/20/17 04:24 97.8 92 20 104/58 (73) 95 11/20/17 04:24 Nasal Cannula 2.00 11/20/17 03:59 97 11/20/17 01:05 98.1 70 18 109/70 (83) 96 11/20/17 01:05 Nasal Cannula 2.00 11/20/17 00:29 100 11/19/17 21:21 Nasal Cannula 2.00 11/19/17 21:03 Nasal Cannula 2.00 11/19/17 21:03 97.7 98 20 109/58 (75) 97 11/19/17 20:04 91 11/19/17 16:06 98.0 92 17 107/70 (82) 93 11/19/17 16:00 82 11/19/17 12:18 97.5 90 17 100/71 (81) 97 11/19/17 12:00 86 (Venus Barrett) -: 11/20/17 0909 11/20/17 0909 Physical Exam General Appearance: Well Developed, No Acute Distress, Comfortable (Venus Barrett) Eyes Eye Exam: Pupils Equal (Venus Barrett) Pulmonary Resp Exam: Breath Sounds Equal, Crackles, Decreased Bases, Diminished Breath Sounds (Venus Barrett) Cardiology CV Exam: Regular, Murmur (Venus Barrett) Gastrointestinal/Abdomen GI Exam: Soft, Non-Tender, Bowel Sounds Present, Distended (Venus Barrett) Integumentary Skin Exam: Clear, Warm (Venus Barrett) Extremeties Extremities Exam: Trace Edema (Venus Barrett) Neurologic Neuro Exam: Awake (Venus Barrett) Psychiatric Psych Exam: Appropriate Responses (Venus Barrett) Assessment/Plan Assessment Summary: ZEUS/Acute Renal Failure Electrolyte Assessment: Hyponatremia Problem List: (1) ZEUS (acute kidney injury) ICD Codes: N17.9 - Acute kidney failure, unspecified Plan: ZEUS most likely ATN from sepsis and low blood pressure. Other differential will be ATN, Acute interstitial nephritis, and Post infectious GN,unlikely. HD started on 10/08 and last HD on 11/15 Plan Lasix decreased to 40 mg twice a day continue to have good UOP and creatinine has remained stable at 3.27 today Continue to monitor UOP, BMP, and monitor renal recovery. HD on hold for now last HD 11/15 (2) Sepsis ICD Codes: A41.9 - Sepsis, unspecified organism Status: Acute Plan: Antibiotics per ID (3) Endocarditis ICD Codes: I38 - Endocarditis, valve unspecified Status: Acute Plan: antibiotics renal dosing (Venus Barrett) Problem List: (1) ZEUS (acute kidney injury) ICD Codes: N17.9 - Acute kidney failure, unspecified Plan: ZEUS most likely ATN from sepsis and low blood pressure. Other differential will be ATN, Acute interstitial nephritis, and Post infectious GN,unlikely. HD started on 10/08 and last HD on 11/15 Plan Lasix decreased to 40 mg twice a day continue to have good UOP and creatinine has remained stable at 3.27 today Continue to monitor UOP, BMP, and monitor renal recovery. HD on hold for now last HD 11/15. Patient seen and examined, agree with above. Creatinine improving, decrease Lasix, edema is better. (2) Sepsis ICD Codes: A41.9 - Sepsis, unspecified organism Status: Acute Plan: Antibiotics per ID (3) Endocarditis ICD Codes: I38 - Endocarditis, valve unspecified Status: Acute Plan: antibiotics renal dosing (Darek Tapia MD) Problem Qualifiers (1) Sepsis: Qualified Codes: A41.9 - Sepsis, unspecified organism (2) Endocarditis: Venus Barrett Nov 20, 2017 10:58 Darek Tapia MD Nov 20, 2017 17:58
[2017-11-20] MEDS: fentaNYL 100 MCG/HR PATCH T-DERMAL SCH (12:00)
[2017-11-20] MEDS: REMOVE OLD PATCH T-DERMAL SCH (12:00)
[2017-11-20] MEDS: FERROUS SULFATE 325 MG (65 MG ELEMENTAL IRON) TAB PO SCH ×2 (12:01→17:17)
[2017-11-20] MEDS: GABAPENTIN 100 MG CAP PO SCH (12:01)
--- NOTE | 2017-11-20 13:15 | HHI.PR ---
Subjective Remarks Follow-up endocarditis. Seen with mother. Discussed with nursing. Improving shortness of breath currently on 2 L. Objective Vitals Vital Signs Date Time Temp Pulse Resp B/P (MAP) Pulse Ox O2 Delivery O2 Flow Rate FiO2 11/20/17 12:08 97.8 98 18 109/61 (77) 98 11/20/17 12:00 96 11/20/17 08:06 97.9 97 17 99/67 (78) 94 11/20/17 07:59 95 11/20/17 07:30 Nasal Cannula 2.00 30 11/20/17 04:24 97.8 92 20 104/58 (73) 95 11/20/17 04:24 Nasal Cannula 2.00 11/20/17 03:59 97 11/20/17 01:05 98.1 70 18 109/70 (83) 96 11/20/17 01:05 Nasal Cannula 2.00 11/20/17 00:29 100 11/19/17 21:21 Nasal Cannula 2.00 11/19/17 21:03 Nasal Cannula 2.00 11/19/17 21:03 97.7 98 20 109/58 (75) 97 11/19/17 20:04 91 11/19/17 16:06 98.0 92 17 107/70 (82) 93 11/19/17 16:00 82 I/O 11/19/17 11/19/17 11/19/17 11/20/17 11/20/17 11/20/17 07:00 15:00 23:00 07:00 15:00 23:00 Intake Total 100 ml 480 ml 980 ml Output Total 2400 ml 1750 ml 2250 ml Balance -2300 ml -1270 ml -1270 ml Intake Oral 100 ml 480 ml 880 ml IV Total 100 ml Output Urine Total 2400 ml 1750 ml 2250 ml # Voids 1 # Bowel Movements 1 0 1 Result Diagram: 11/20/17 0909 11/20/17 0909 Imaging Last Impressions Chest X-Ray 11/17/17 0000 Signed Impressions: Service Date/Time: Friday, November 17, 2017 13:05 - CONCLUSION: 1. Pleural thickening and/or fluid remains along the right lateral chest wall. 2. Cardiomegaly and apparent mild pulmonary edema again noted. 3. Interval removal of central venous line. 1. Jorge Jang MD Cyst Biopsy Asp-Paracentesis US 11/10/17 0000 Signed Impressions: Service Date/Time: Friday, November 10, 2017 10:52 - CONCLUSION: Uncomplicated ultrasound guided paracentesis. Madi Mccartney MD Abdomen Ultrasound 11/07/17 0000 Signed Impressions: Service Date/Time: Tuesday, November 07, 2017 11:36 - CONCLUSION: Moderate amount of ascites confirmed for subsequent paracentesis but the patient refused the procedure and therefore was sent back to the floor. Khoi Padilla MD Chest CT 11/03/17 0000 Signed Impressions: Service Date/Time: Friday, November 03, 2017 10:16 - CONCLUSION: Scattered areas of consolidation and scattered nodular foci identified, a overall improved from the previous study however the consolidation in the right middle lobe is increased and is a change from previous studies. Chadwick Diaz MD Liver Ultrasound 10/24/17 0000 Signed Impressions: Service Date/Time: Tuesday, October 24, 2017 16:43 - CONCLUSION: Hepatosplenomegaly with ascites. Echogenic kidney Madi Mccartney MD Abdomen/Pelvis CT 10/24/17 0000 Signed Impressions: Service Date/Time: Tuesday, October 24, 2017 21:37 - CONCLUSION: 1. Hepatosplenomegaly. 2. Moderate amount of ascites. 3. Diffuse anasarca. 4. Bibasilar pleural effusions and scattered infiltrates. Khoi Padilla MD Tunnelled Chest Tube Removal 10/20/17 0000 Signed Impressions: Service Date/Time: Friday, October 20, 2017 00:00 - CONCLUSION: Uncomplicated chest tube removal. Madi Mccartney MD Upper Extremity Ultrasound 10/13/17 0000 Signed Impressions: Service Date/Time: Friday, October 13, 2017 11:25 - CONCLUSION: Normal examination. Christian Kaur MD Abdomen X-Ray 10/10/17 0000 Signed Impressions: Service Date/Time: Tuesday, October 10, 2017 16:46 - CONCLUSION: Negative for free air or obstruction. Rahul Yarbrough MD FACR Chest Tube Insertion 10/06/17 0000 Signed Impressions: Service Date/Time: Friday, October 06, 2017 15:37 - CONCLUSION: Uncomplicated chest tube placement as above. Emerson Hui MD Objective Remarks AAOx3 nad S1S2 RRR, soft 2/6 systolic murmur Abdomen soft, nt, mildly, distended Clear lungs BL +1 edema in lower extremities BL. Patient refused inspection of decubitus Procedures CT-guided chest tube placement on left chest. Date 10/06/17. Paracentesis central line CARMEN A/P Problem List: (1) Endocarditis ICD Code: I38 - Endocarditis, valve unspecified Status: Acute (2) MSSA bacteremia ICD Code: R78.81 - Bacteremia (3) Tricuspid valve vegetation ICD Code: I33.0 - Acute and subacute infective endocarditis (4) IV drug abuse ICD Code: F19.10 - Other psychoactive substance abuse, uncomplicated (5) Pleural effusion, bilateral ICD Code: J90 - Pleural effusion, not elsewhere classified (6) Septic embolism ICD Code: I26.90 - Septic pulmonary embolism without acute cor pulmonale Status: Acute (7) Hepatitis C ICD Code: B19.20 - Unspecified viral hepatitis C without hepatic coma (8) Hepatosplenomegaly ICD Code: R16.2 - Hepatomegaly with splenomegaly, not elsewhere classified (9) Sacral decubitus ulcer, stage IV ICD Code: L89.154 - Pressure ulcer of sacral region, stage 4 Status: Acute (10) Anasarca ICD Code: R60.1 - Generalized edema (11) Acute systolic heart failure ICD Code: I50.21 - Acute systolic (congestive) heart failure (12) Moderate protein-calorie malnutrition ICD Code: E44.0 - Moderate protein-calorie malnutrition Status: Acute (13) Hyponatremia ICD Code: E87.1 - Hypo-osmolality and hyponatremia Status: Acute (14) ZEUS (acute kidney injury) ICD Code: N17.9 - Acute kidney failure, unspecified (15) Anemia ICD Code: D64.9 - Anemia, unspecified (16) Debility ICD Code: R53.81 - Other malaise Status: Acute (17) Transaminitis ICD Code: R74.0 - Nonspecific elevation of levels of transaminase and lactic acid dehydrogenase [LDH] Status: Resolved (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 Repeat bedside echocardiogram on 10/18 showed a similar size vegetation. Cardiology and CT surgery ff. D/W Dr. Charles declined surgery due to active IV drug use, multiple medical complications. Discussed with [facility] who agreed with plan of our cardiothoracic surgeon. [facility] administration has denied the patient as well per CM. ID consulted. Continue IV cefazolin will clarify stop the. (2) MSSA bacteremia Plan: Continue IV antibiotics as per ID. Last blood cultures on 10/18 negative 5. (3) Tricuspid valve vegetation Plan: Cardiology consulted and following. Dr Charles declined performing surgery on patient. (4) IV drug abuse Plan: The patient states he has not used drugs in 3 months. Advised and reinforced drug cessation. (5) Pleural effusion, bilateral Plan: Likely secondary to fluid overload and acute systolic heart failure. The patient is being dialyzed s/p thoracentesis. (6) Septic embolism Plan: Secondary to tricuspid valve endocarditis. 11/12 previously on 4 L nasal cannula, respiratory status improving with patient on 2 L nasal cannula. (7) Hepatitis C Plan: Hepatitis C antibody reactive. Hepatitis C viral load [id number]. Hepatitis C genotype 1A. Hepatitic ultrasound revealed hepatosplenomegaly. We will refer to GI as an outpatient for treatment. (8) Hepatosplenomegaly Plan: As seen on CT of the abdomen and pelvis with moderate amount of ascites and diffuse anasarca. (9) Sacral decubitus ulcer, stage IV Plan: wound care consulted - fu recommendations. 11/12 consulted plastic surgery. Continue wound care. (10) Anasarca Plan: As evidenced by bilateral pleural effusions, ascites and anasarca described on CT abdomen and pelvis. Patient being dialyzed. SP abdominal paracentesis on 11/10. Ascitic fluid non infectious. (11) Acute systolic heart failure Plan: Echo with EF of 35-40%. Treat fluid overload with dialysis. Continue beta-ashutosh. Unable to start FLETCHER inhibitor secondary to ZEUS (12) Moderate protein-calorie malnutrition Plan: Dietitian consulted, recommends liberalize diet to allow more fluid options and hopefully increase p.o. intake. Nepro twice daily with encouragement. (13) Hyponatremia Plan: On fluid restriction - continue. Sodium stable at 131. (14) ZEUS (acute kidney injury) Plan: Most likely due to ATN from sepsis and low blood pressure. HD started on 10/08. Continue dialysis as per nephrology. Dialysis on Friday/ and Friday schedule currently on hold last hemodialysis November 15. Creatinine improving. Avoid nephrotoxins, continue to monitor BUN and creatinine. (15) Anemia Plan: On ferrous sulfate and Epogen as per nephrology. Anemia likely secondary to chronic kidney disease. 11/09 hemoglobin dropped from 8.9-7.7. No obvious bleeding. Continue to monitor hemoglobin and hematocrit. Transfuse as needed for hemoglobin less than 7 or symptomatic anemia. Epogen as per nephrology. Hemoglobin stable. (16) Debility Plan: Continue PT and OT. Patient will need to go to rehab upon discharge. (17) Transaminitis Plan: Now resolved. Continue to monitor liver function tests. Transaminitis likely secondary to sepsis and hepatitis C. (18) Chronic pain syndrome Continue gabapentin, duloxetine, tizanidine, oxycodone. Pain seems to be controlled. Will wean narcs when dc date known will f/u with ID stop date of Cefazolin (19) MARTÍN positive Plan: The patient also has a positive MARTÍN with a titer of 1: 40 with a diffuse pattern. This is a low pattern and the patient does not have any other symptoms consistent with rheumatic disease. Will not pursue any further testing. The patient will need to follow-up as an outpatient by his primary care physician. (20) Hypotension Plan: Unclear etiology of hypotension. However the patient is on hemodialysis and is hypoalbuminemic, also patient is on several medications to control pain including fentanyl patch, Roxicodone, gabapentin. All of these factors could be contributing to the patient's hypotension. Upon review of records the patient has been hypotensive for some time now. Patient's hypotension started on 10/31/17 and blood pressure occasionally goes up , however it is usually in the high 80s to low 90s systolic. Start midodrine for blood pressure support. 11/10 BP better but bp still lowin the 90's systolic. Increase Midodrine dose to 10 mg po tid. BP still borderline low, continue midodrine. Patient asymptomatic. DVT prophylaxis: SCDs, heparin subcutaneously. Discharge Planning Patient with endocarditis/MSSA bacteremia on IV antibiotics and ZEUS on hemodialysis. Will need ID and nephrology clearance. Problem Qualifiers (1) Endocarditis: (2) Hepatitis C: (3) Anemia: (4) Hypotension: Qualified Codes: I95.9 - Hypotension, unspecified Rashad Langston MD Nov 20, 2017 13:15
[2017-11-20] MEDS: FUROSEMIDE 40 MG/4 ML VIAL IV PUSH SCH (17:17)
--- NOTE | 2017-11-20 20:22 | HHI.PR ---
Subjective Remarks 27 YOWM with bilat infilt, pl eff, MSSA Endocarditis Breathing better Weaned to RA Good urine output Denies sob Objective Vital Signs Vital Signs Date Time Temp Pulse Resp B/P (MAP) Pulse Ox O2 Delivery O2 Flow Rate FiO2 11/20/17 19:39 96 Nasal Cannula 2.00 11/20/17 16:06 97.7 99 18 108/79 (89) 97 11/20/17 16:00 103 11/20/17 12:08 97.8 98 18 109/61 (77) 98 11/20/17 12:00 96 11/20/17 08:06 97.9 97 17 99/67 (78) 94 11/20/17 07:59 95 11/20/17 07:30 Nasal Cannula 2.00 30 11/20/17 04:24 97.8 92 20 104/58 (73) 95 11/20/17 04:24 Nasal Cannula 2.00 11/20/17 03:59 97 11/20/17 01:05 98.1 70 18 109/70 (83) 96 11/20/17 01:05 Nasal Cannula 2.00 11/20/17 00:29 100 11/19/17 21:21 Nasal Cannula 2.00 11/19/17 21:03 Nasal Cannula 2.00 11/19/17 21:03 97.7 98 20 109/58 (75) 97 I/O 11/19/17 11/19/17 11/19/17 11/20/17 11/20/17 11/20/17 07:00 15:00 23:00 07:00 15:00 23:00 Intake Total 100 ml 480 ml 980 ml 940 ml Output Total 2400 ml 1750 ml 2250 ml 800 ml Balance -2300 ml -1270 ml -1270 ml 140 ml Intake Oral 100 ml 480 ml 880 ml 840 ml IV Total 100 ml 100 ml Output Urine Total 2400 ml 1750 ml 2250 ml 800 ml # Voids 1 # Bowel Movements 1 0 1 0 Result Diagram: 11/20/1790811/20/17 09 Objective Remarks GENERAL: MBMN WM, mild sob SKIN: Warm and dry. HEAD: Normocephalic. EYES: No scleral icterus. No injection or drainage. NECK: Supple, trachea midline. No JVD or lymphadenopathy. CARDIOVASCULAR: Regular rate and rhythm without murmurs, gallops, or rubs. RESPIRATORY: Breath sounds equal bilaterally. No accessory muscle use. GASTROINTESTINAL: Abdomen soft, non-tender, nondistended. Abd distended, non tender MUSCULOSKELETAL: No cyanosis, ++ edema. BACK: Nontender without obvious deformity. No CVA tenderness. A/P Assessment and Plan Bilat infilterates improving Pl eff small Abd distension MSSA Endocarditis renal failure PLAN: Aerosol nebs Cont Abx per ID Supplement 02 Pl eff small, will monitor Stable from Pulm standpoint Jony Bustamante MD Nov 20, 2017 20:21
[2017-11-20] MEDS: TEMAZEPAM 15 MG CAP PO PRN (21:23)
[2017-11-21] VITALS (10 sets, daily range): BP systolic 103–119; BP diastolic 56–78; PULSE 100–116; RESP 16–20; TEMP 97.4–99.7; O2SAT 94–100
[2017-11-21] MEDS: MIDODRINE 5 MG TAB PO SCH ×3 (05:48→17:33)
[2017-11-21] MEDS: RESP: ALBUTEROL 2.5 MG/3 ML NEB (PRN) NEB ×3 (06:20→20:57)
[2017-11-21 08:12] LABS: BICARBONATE 30.4 MEQ/L (21.0-32.0); CALCIUM 7.9 MG/DL (8.5-10.1); CREATININE 2.78 MG/DL (0.60-1.30); PHOSPHORUS 3.9 MG/DL (2.5-4.9)
[2017-11-21] MEDS: CALCIUM ACETATE 667 MG CAP PO SCH ×3 (08:22→17:33)
[2017-11-21] MEDS: LACTOBACILLUS ACIDOPHILUS TAB PO SCH ×3 (08:22→17:33)
[2017-11-21] MEDS: DULoxetine HCl DR 60 MG CAP PO SCH (08:22)
[2017-11-21] MEDS: SODIUM CHLORIDE 1 GRAM TAB PO SCH (08:22)
[2017-11-21] MEDS: PANTOPRAZOLE SOD 40 MG DELAYED RELEASE TAB PO SCH ×2 (08:22→20:49)
[2017-11-21] MEDS: DOCUSATE SODIUM 50 MG/SENNA 8.6 MG TAB PO SCH ×2 (08:22→20:49)
[2017-11-21] MEDS: HEPARIN SODIUM - SQ 10,000 UNITS/ML VIAL SQ SCH ×2 (08:23→20:54)
[2017-11-21] MEDS: SODIUM HYPOCHLORITE 0.125% 500 ML BTL TOPICAL SCH (08:23)
[2017-11-21] MEDS: COLLAGENASE OINT 30 GM TUBE TOPICAL SCH (08:23)
[2017-11-21] MEDS: FLUTICASONE PROPIONATE 44 MCG/ACT 10.6 GM INHALER INH SCH ×2 (08:24→20:51)
[2017-11-21] MEDS: SODIUM CHLORIDE 0.9% FLUSH 10 ML FLUSH IV FLUSH SCH ×2 (08:25→20:49)
[2017-11-21] MEDS: CHLORHEXIDINE 0.12% (ORAL KIT) 15 ML CUP MT SCH ×2 (08:25→20:00)
[2017-11-21] MEDS: METOPROLOL TARTRATE 25 MG TAB PO SCH ×2 (08:27→20:49)
[2017-11-21] MEDS: FUROSEMIDE 40 MG/4 ML VIAL IV PUSH SCH ×2 (08:36→17:37)
--- NOTE | 2017-11-21 11:12 | HHI.NPPN ---
Subjective Complaints: Shortness of Breath Renal Failure: Acute History of Present Illness Patient is 27-year-old male who reported to ER with body aches, 7 days of diarrhea with development fever. Past medical history of IV drug use. Patient is sedated and ventilated FiO2 at 40 %. Nephrology is consulted for ZEUS and fluid over load status. Patients creatinine is 3.02 and GFR 25ml/min. Patient is UOP at 800cc for last 24 hours. Weight has increased by over 10 kg since admission. IVF's have been stopped and lasix has been given. Patient has endocarditis with large tricuspid valve vegetation, and pulmonic vegetation. Noted to have bacteremia with hypotension with SBP in the 90's. Additional Remarks Patient is resting comfortably this morning. Creatinine is improving and continues to have good UOP. (Venus Barrett) Review of Systems Respiratory Lungs: SOB Respiratory Remarks Improved (Venus Barrett) Cardiovascular Cardiac Remarks denies CP (Venus Barrett) Gastrointestinal GI Remarks No abdominal pain (Venus Barrett) Psych Psych: Depression, Anxiety (Venus Barrett) Objective Data Data Vital Signs Date Time Temp Pulse Resp B/P (MAP) Pulse Ox O2 Delivery O2 Flow Rate FiO2 11/21/17 09:11 96 Nasal Cannula 2.00 11/21/17 08:00 107 11/21/17 08:00 97.4 107 18 103/56 (72) 96 11/21/17 07:30 Nasal Cannula 2.00 30 11/21/17 03:59 Nasal Cannula 2.00 11/21/17 03:59 99.7 103 20 119/78 (92) 95 11/21/17 03:40 116 11/21/17 00:00 98.1 114 16 117/66 (83) 96 11/20/17 23:46 104 11/20/17 20:00 98.3 108 18 121/74 (90) 94 11/20/17 20:00 Room Air 11/20/17 19:42 100 11/20/17 19:39 96 Nasal Cannula 2.00 11/20/17 16:06 97.7 99 18 108/79 (89) 97 11/20/17 16:00 103 3/29/18 12:08 97.8 98 18 109/61 (77) 98 11/20/17 12:00 96 (Venus Barrett) -: 11/20/17 0909 11/21/17 0548 Physical Exam General Appearance: Well Developed, No Acute Distress, Comfortable (Venus Barrett) Eyes Eye Exam: Pupils Equal (Venus Barrett) Pulmonary Resp Exam: Breath Sounds Equal, Crackles, Decreased Bases, Diminished Breath Sounds (Venus Barrett) Cardiology CV Exam: Regular, Murmur (Venus Barrett) Gastrointestinal/Abdomen GI Exam: Soft, Non-Tender, Bowel Sounds Present, Distended (Venus Barrett) Integumentary Skin Exam: Clear, Warm (Venus Barrett) Extremeties Extremities Exam: Trace Edema (Venus Barrett) Neurologic Neuro Exam: Awake (Venus Barrett) Psychiatric Psych Exam: Appropriate Responses (Venus Barrett) Assessment/Plan Assessment Summary: ZEUS/Acute Renal Failure Electrolyte Assessment: Hyponatremia Problem List: (1) ZEUS (acute kidney injury) ICD Codes: N17.9 - Acute kidney failure, unspecified Plan: ZEUS most likely ATN from sepsis and low blood pressure. Other differential will be ATN, Acute interstitial nephritis, and Post infectious GN,unlikely. HD started on 10/08 and last HD on 11/15 Plan Will discontinue lasix as patient has no edema. Continue to monitor UOP, BMP, and monitor renal recovery. HD on hold for now last HD 11/15 creatine improving daily at 2.78 from 2.27 yesterday. (2) Sepsis ICD Codes: A41.9 - Sepsis, unspecified organism Status: Acute Plan: Antibiotics per ID (3) Endocarditis ICD Codes: I38 - Endocarditis, valve unspecified Status: Acute Plan: antibiotics renal dosing (Vneus Barrett) Problem List: (1) ZEUS (acute kidney injury) ICD Codes: N17.9 - Acute kidney failure, unspecified Plan: ZEUS most likely ATN from sepsis and low blood pressure. Other differential will be ATN, Acute interstitial nephritis, and Post infectious GN,unlikely. HD started on 10/08 and last HD on 11/15 Plan Will discontinue lasix as patient has no edema. Continue to monitor UOP, BMP, and monitor renal recovery. HD on hold for now last HD 11/15 creatine improving daily at 2.78 from 2.27 yesterday. Patient seen and examined, agree with above. D/C Lasix, Creatinine is improving. (2) Sepsis ICD Codes: A41.9 - Sepsis, unspecified organism Status: Acute Plan: Antibiotics per ID (3) Endocarditis ICD Codes: I38 - Endocarditis, valve unspecified Status: Acute Plan: antibiotics renal dosing (Darek Tapia MD) Problem Qualifiers (1) Sepsis: Qualified Codes: A41.9 - Sepsis, unspecified organism (2) Endocarditis: Venus Barrett Nov 21, 2017 11:12 Darek Tapia MD Nov 21, 2017 18:21
[2017-11-21] MEDS: FERROUS SULFATE 325 MG (65 MG ELEMENTAL IRON) TAB PO SCH ×2 (12:34→17:33)
[2017-11-21] MEDS: GABAPENTIN 100 MG CAP PO SCH (12:34)
--- NOTE | 2017-11-21 13:22 | HHI.PR ---
Subjective Remarks Follow-up ascites and sacral decubitus. Denies abdominal pain. Patient has stage IV sacral pressure ulcer and was so tender during examination. Discussed with nursing, follow-up with plastic surgery was consulted days ago. Objective Vitals Vital Signs Date Time Temp Pulse Resp B/P (MAP) Pulse Ox O2 Delivery O2 Flow Rate FiO2 11/21/17 12:00 97.4 100 18 104/60 (75) 100 11/21/17 09:11 96 Nasal Cannula 2.00 11/21/17 08:00 107 11/21/17 08:00 97.4 107 18 103/56 (72) 96 11/21/17 07:30 Nasal Cannula 2.00 30 11/21/17 03:59 Nasal Cannula 2.00 11/21/17 03:59 99.7 103 20 119/78 (92) 95 11/21/17 03:40 116 11/21/17 00:00 98.1 114 16 117/66 (83) 96 11/20/17 23:46 104 11/20/17 20:00 98.3 108 18 121/74 (90) 94 11/20/17 20:00 Room Air 11/20/17 19:42 100 11/20/17 19:39 96 Nasal Cannula 2.00 11/20/17 16:06 97.7 99 18 108/79 (89) 97 11/20/17 16:00 103 I/O 11/20/17 11/20/17 11/20/17 11/21/17 11/21/17 11/21/17 07:00 15:00 23:00 07:00 15:00 23:00 Intake Total 980 ml 940 ml 1680 ml Output Total 2250 ml 800 ml 1700 ml Balance -1270 ml 140 ml -20 ml Intake Oral 880 ml 840 ml 1580 ml IV Total 100 ml 100 ml 100 ml Output Urine Total 2250 ml 800 ml 1700 ml # Bowel Movements 1 0 1 Result Diagram: 11/20/17 0909 11/21/17 0548 Imaging Last Impressions Chest X-Ray 11/17/17 0000 Signed Impressions: Service Date/Time: Friday, November 17, 2017 13:05 - CONCLUSION: 1. Pleural thickening and/or fluid remains along the right lateral chest wall. 2. Cardiomegaly and apparent mild pulmonary edema again noted. 3. Interval removal of central venous line. 1. Jorge Jang MD Cyst Biopsy Asp-Paracentesis US 11/10/17 0000 Signed Impressions: Service Date/Time: Friday, November 10, 2017 10:52 - CONCLUSION: Uncomplicated ultrasound guided paracentesis. Madi Mccartney MD Abdomen Ultrasound 11/07/17 0000 Signed Impressions: Service Date/Time: Tuesday, November 07, 2017 11:36 - CONCLUSION: Moderate amount of ascites confirmed for subsequent paracentesis but the patient refused the procedure and therefore was sent back to the floor. Khoi Padilla MD Chest CT 11/03/17 0000 Signed Impressions: Service Date/Time: Friday, November 03, 2017 10:16 - CONCLUSION: Scattered areas of consolidation and scattered nodular foci identified, a overall improved from the previous study however the consolidation in the right middle lobe is increased and is a change from previous studies. Chadwick Diaz MD Liver Ultrasound 10/24/17 0000 Signed Impressions: Service Date/Time: Tuesday, October 24, 2017 16:43 - CONCLUSION: Hepatosplenomegaly with ascites. Echogenic kidney Madi Mccartney MD Abdomen/Pelvis CT 10/24/17 0000 Signed Impressions: Service Date/Time: Tuesday, October 24, 2017 21:37 - CONCLUSION: 1. Hepatosplenomegaly. 2. Moderate amount of ascites. 3. Diffuse anasarca. 4. Bibasilar pleural effusions and scattered infiltrates. Khoi Padilla MD Tunnelled Chest Tube Removal 10/20/17 0000 Signed Impressions: Service Date/Time: Friday, October 20, 2017 00:00 - CONCLUSION: Uncomplicated chest tube removal. Madi Mccartney MD Upper Extremity Ultrasound 10/13/17 0000 Signed Impressions: Service Date/Time: Friday, October 13, 2017 11:25 - CONCLUSION: Normal examination. Christian Kaur MD Abdomen X-Ray 10/10/17 0000 Signed Impressions: Service Date/Time: Tuesday, October 10, 2017 16:46 - CONCLUSION: Negative for free air or obstruction. Rahul Yarbrough MD FACR Chest Tube Insertion 10/06/17 0000 Signed Impressions: Service Date/Time: Friday, October 06, 2017 15:37 - CONCLUSION: Uncomplicated chest tube placement as above. Emerson Hui MD Objective Remarks AAOx3 nad S1S2 RRR, soft 2/6 systolic murmur Abdomen soft, nt, mildly, distended Clear lungs BL +1 edema in lower extremities BL. Stage IV sacral pressure ulcer Procedures CT-guided chest tube placement on left chest. Date 10/06/17. Paracentesis central line CARMEN A/P Problem List: (1) Endocarditis ICD Code: I38 - Endocarditis, valve unspecified Status: Acute (2) MSSA bacteremia ICD Code: R78.81 - Bacteremia (3) Tricuspid valve vegetation ICD Code: I33.0 - Acute and subacute infective endocarditis (4) IV drug abuse ICD Code: F19.10 - Other psychoactive substance abuse, uncomplicated (5) Pleural effusion, bilateral ICD Code: J90 - Pleural effusion, not elsewhere classified (6) Septic embolism ICD Code: I26.90 - Septic pulmonary embolism without acute cor pulmonale Status: Acute (7) Hepatitis C ICD Code: B19.20 - Unspecified viral hepatitis C without hepatic coma (8) Hepatosplenomegaly ICD Code: R16.2 - Hepatomegaly with splenomegaly, not elsewhere classified (9) Sacral decubitus ulcer, stage IV ICD Code: L89.154 - Pressure ulcer of sacral region, stage 4 Status: Acute (10) Anasarca ICD Code: R60.1 - Generalized edema (11) Acute systolic heart failure ICD Code: I50.21 - Acute systolic (congestive) heart failure (12) Moderate protein-calorie malnutrition ICD Code: E44.0 - Moderate protein-calorie malnutrition Status: Acute (13) Hyponatremia ICD Code: E87.1 - Hypo-osmolality and hyponatremia Status: Acute (14) ZEUS (acute kidney injury) ICD Code: N17.9 - Acute kidney failure, unspecified (15) Anemia ICD Code: D64.9 - Anemia, unspecified (16) Debility ICD Code: R53.81 - Other malaise Status: Acute (17) Transaminitis ICD Code: R74.0 - Nonspecific elevation of levels of transaminase and lactic acid dehydrogenase [LDH] Status: Resolved (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 Repeat bedside echocardiogram on 10/18 showed a similar size vegetation. Cardiology and CT surgery ff. D/W Dr. Charles declined surgery due to active IV drug use, multiple medical complications. Discussed with [facility] who agreed with plan of our cardiothoracic surgeon. [facility] administration has denied the patient as well per CM. ID consulted. Continue IV cefazolin will clarify stop date (2) MSSA bacteremia Plan: Continue IV antibiotics as per ID. Last blood cultures on 10/18 negative 5. (3) Tricuspid valve vegetation Plan: Cardiology consulted and following. Dr Charles declined performing surgery on patient. (4) IV drug abuse Plan: The patient states he has not used drugs in 3 months. Advised and reinforced drug cessation. (5) Pleural effusion, bilateral Plan: Likely secondary to fluid overload and acute systolic heart failure. The patient is being dialyzed s/p thoracentesis. (6) Septic embolism Plan: Secondary to tricuspid valve endocarditis. 11/12 previously on 4 L nasal cannula, respiratory status improving with patient on 2 L nasal cannula. (7) Hepatitis C Plan: Hepatitis C antibody reactive. Hepatitis C viral load [id number]. Hepatitis C genotype 1A. Hepatitic ultrasound revealed hepatosplenomegaly. We will refer to GI as an outpatient for treatment. (8) Hepatosplenomegaly Plan: As seen on CT of the abdomen and pelvis with moderate amount of ascites and diffuse anasarca. (9) Sacral decubitus ulcer, stage IV Plan: wound care consulted - fu recommendations. 11/12 consulted plastic surgery will follow up. Continue wound care. (10) Anasarca Plan: As evidenced by bilateral pleural effusions, ascites and anasarca described on CT abdomen and pelvis. Patient being dialyzed. SP abdominal paracentesis on 11/10. Ascitic fluid non infectious. Continue IV Lasix (11) Acute systolic heart failure Plan: Echo with EF of 35-40%. Treat fluid overload with dialysis. Continue beta-ashutosh. Unable to start FLETCHER inhibitor secondary to ZEUS (12) Moderate protein-calorie malnutrition Plan: Dietitian consulted, recommends liberalize diet to allow more fluid options and hopefully increase p.o. intake. Nepro twice daily with encouragement. (13) Hyponatremia Plan: On fluid restriction - continue. Sodium stable at 131. (14) ZEUS (acute kidney injury) Plan: Most likely due to ATN from sepsis and low blood pressure. HD started on 10/08. Continue dialysis as per nephrology. Dialysis on Friday/ and Friday schedule currently on hold last hemodialysis November 15. Creatinine improving. Avoid nephrotoxins, continue to monitor BUN and creatinine. (15) Anemia Plan: On ferrous sulfate and Epogen as per nephrology. Anemia likely secondary to chronic kidney disease. 11/09 hemoglobin dropped from 8.9-7.7. No obvious bleeding. Continue to monitor hemoglobin and hematocrit. Transfuse as needed for hemoglobin less than 7 or symptomatic anemia. Epogen as per nephrology. Hemoglobin stable. (16) Debility Plan: Continue PT and OT. Patient will need to go to rehab upon discharge. (17) Transaminitis Plan: Now resolved. Continue to monitor liver function tests. Transaminitis likely secondary to sepsis and hepatitis C. (18) Chronic pain syndrome Continue gabapentin, duloxetine, tizanidine, oxycodone. Pain seems to be controlled. Will wean narcs when dc date known will f/u with ID stop date of Cefazolin (19) MARTÍN positive Plan: The patient also has a positive MARTÍN with a titer of 1: 40 with a diffuse pattern. This is a low pattern and the patient does not have any other symptoms consistent with rheumatic disease. Will not pursue any further testing. The patient will need to follow-up as an outpatient by his primary care physician. (20) Hypotension Plan: Unclear etiology of hypotension. However the patient is on hemodialysis and is hypoalbuminemic, also patient is on several medications to control pain including fentanyl patch, Roxicodone, gabapentin. All of these factors could be contributing to the patient's hypotension. Upon review of records the patient has been hypotensive for some time now. Patient's hypotension started on 10/31/17 and blood pressure occasionally goes up , however it is usually in the high 80s to low 90s systolic. Start midodrine for blood pressure support. 11/10 BP better but bp still lowin the 90's systolic. Increase Midodrine dose to 10 mg po tid. BP still borderline low, continue midodrine. Patient asymptomatic. DVT prophylaxis: SCDs, heparin subcutaneously. Discharge Planning Patient with endocarditis/MSSA bacteremia on IV antibiotics and ZEUS on hemodialysis. Will need ID and nephrology clearance. Problem Qualifiers (1) Endocarditis: (2) Hepatitis C: (3) Anemia: (4) Hypotension: Qualified Codes: I95.9 - Hypotension, unspecified Rashad Langston MD Nov 21, 2017 13:22
--- NOTE | 2017-11-21 17:05 | HHI.PR ---
Subjective Remarks 27 YOWM with bilat infilt, pl eff, MSSA Endocarditis Breathing better Weaned to RA Good urine output Denies sob Objective Vital Signs Vital Signs Date Time Temp Pulse Resp B/P (MAP) Pulse Ox O2 Delivery O2 Flow Rate FiO2 11/21/17 16:00 98.6 105 18 116/78 (91) 94 11/21/17 12:00 97.4 100 18 104/60 (75) 100 11/21/17 09:11 96 Nasal Cannula 2.00 11/21/17 08:00 107 11/21/17 08:00 97.4 107 18 103/56 (72) 96 11/21/17 07:30 Nasal Cannula 2.00 30 11/21/17 03:59 Nasal Cannula 2.00 11/21/17 03:59 99.7 103 20 119/78 (92) 95 11/21/17 03:40 116 11/21/17 00:00 98.1 114 16 117/66 (83) 96 11/20/17 23:46 104 11/20/17 20:00 98.3 108 18 121/74 (90) 94 11/20/17 20:00 Room Air 11/20/17 19:42 100 11/20/17 19:39 96 Nasal Cannula 2.00 I/O 11/20/17 11/20/17 11/20/17 11/21/17 11/21/17 11/21/17 07:00 15:00 23:00 07:00 15:00 23:00 Intake Total 980 ml 940 ml 1680 ml Output Total 2250 ml 800 ml 1700 ml Balance -1270 ml 140 ml -20 ml Intake Oral 880 ml 840 ml 1580 ml IV Total 100 ml 100 ml 100 ml Output Urine Total 2250 ml 800 ml 1700 ml # Bowel Movements 1 0 1 Result Diagram: 11/20/17 0909 11/21/17 0548 Objective Remarks GENERAL: MBMN WM, mild sob SKIN: Warm and dry. HEAD: Normocephalic. EYES: No scleral icterus. No injection or drainage. NECK: Supple, trachea midline. No JVD or lymphadenopathy. CARDIOVASCULAR: Regular rate and rhythm without murmurs, gallops, or rubs. RESPIRATORY: Breath sounds equal bilaterally. No accessory muscle use. GASTROINTESTINAL: Abdomen soft, non-tender, nondistended. Abd distended, non tender MUSCULOSKELETAL: No cyanosis, ++ edema. BACK: Nontender without obvious deformity. No CVA tenderness. A/P Assessment and Plan Bilat infilterates improving Pl eff small Abd distension MSSA Endocarditis renal failure PLAN: Aerosol nebs Cont Abx per ID Supplement 02 Pl eff small, will monitor Stable from Pulm standpoint I will sign off Available prn Jony Bustamante MD Nov 21, 2017 17:05
[2017-11-22] VITALS (11 sets, daily range): BP systolic 106–144; BP diastolic 58–78; PULSE 99–114; RESP 20; TEMP 97.4–98.3; O2SAT 95–100
[2017-11-22] MEDS: RESP: ALBUTEROL 2.5 MG/3 ML NEB (PRN) NEB ×3 (01:48→13:26)
[2017-11-22] MEDS: MIDODRINE 5 MG TAB PO SCH ×3 (07:24→16:29)
[2017-11-22] MEDS: CHLORHEXIDINE 0.12% (ORAL KIT) 15 ML CUP MT SCH ×2 (07:46→20:00)
[2017-11-22] MEDS: DOCUSATE SODIUM 50 MG/SENNA 8.6 MG TAB PO SCH ×2 (09:00→21:00)
[2017-11-22] MEDS: METOPROLOL TARTRATE 25 MG TAB PO SCH ×2 (09:00→21:41)
[2017-11-22] MEDS: DULoxetine HCl DR 60 MG CAP PO SCH (09:23)
[2017-11-22] MEDS: CALCIUM ACETATE 667 MG CAP PO SCH ×3 (09:23→16:29)
[2017-11-22] MEDS: LACTOBACILLUS ACIDOPHILUS TAB PO SCH ×3 (09:23→16:28)
[2017-11-22] MEDS: SODIUM CHLORIDE 1 GRAM TAB PO SCH (09:23)
[2017-11-22] MEDS: PANTOPRAZOLE SOD 40 MG DELAYED RELEASE TAB PO SCH ×2 (09:23→21:41)
[2017-11-22] MEDS: SODIUM CHLORIDE 0.9% FLUSH 10 ML FLUSH IV FLUSH SCH ×2 (09:24→21:42)
[2017-11-22] MEDS: SODIUM HYPOCHLORITE 0.125% 500 ML BTL TOPICAL SCH (09:24)
[2017-11-22] MEDS: HEPARIN SODIUM - SQ 10,000 UNITS/ML VIAL SQ SCH ×2 (09:24→21:42)
[2017-11-22] MEDS: COLLAGENASE OINT 30 GM TUBE TOPICAL SCH (09:24)
[2017-11-22] MEDS: FLUTICASONE PROPIONATE 44 MCG/ACT 10.6 GM INHALER INH SCH ×2 (09:26→21:43)
--- NOTE | 2017-11-22 10:49 | HHI.NPPN ---
Subjective Complaints: Shortness of Breath Renal Failure: Acute History of Present Illness Patient is 27-year-old male who reported to ER with body aches, 7 days of diarrhea with development fever. Past medical history of IV drug use. Patient is sedated and ventilated FiO2 at 40 %. Nephrology is consulted for ZEUS and fluid over load status. Patients creatinine is 3.02 and GFR 25ml/min. Patient is UOP at 800cc for last 24 hours. Weight has increased by over 10 kg since admission. IVF's have been stopped and lasix has been given. Patient has endocarditis with large tricuspid valve vegetation, and pulmonic vegetation. Noted to have bacteremia with hypotension with SBP in the 90's. Additional Remarks Patient is alert, mild abd. distension, not in distress. Review of Systems Respiratory Lungs: SOB Respiratory Remarks Improved Cardiovascular Cardiac Remarks denies CP Gastrointestinal GI Remarks No abdominal pain Psych Psych: Depression, Anxiety Objective Data Data Vital Signs Date Time Temp Pulse Resp B/P (MAP) Pulse Ox O2 Delivery O2 Flow Rate FiO2 11/22/17 08:00 97.8 104 20 109/71 (84) 99 11/22/17 08:00 Nasal Cannula 2.00 11/22/17 07:54 95 Nasal Cannula 2.00 11/22/17 05:07 98.3 104 20 117/78 (91) 98 11/22/17 00:00 98.0 99 20 118/58 (78) 96 11/21/17 20:59 98 Nasal Cannula 2.00 11/21/17 20:00 98.7 115 18 111/73 (86) 96 11/21/17 19:00 Nasal Cannula 2.00 11/21/17 16:00 98.6 105 18 116/78 (91) 94 11/21/17 15:00 112 11/21/17 12:00 97.4 100 18 104/60 (75) 100 11/21/17 12:00 112 -: 11/20/17 0909 11/21/17 0548 Physical Exam General Appearance: Well Developed, No Acute Distress, Comfortable Eyes Eye Exam: Pupils Equal Pulmonary Resp Exam: Breath Sounds Equal, Crackles, Decreased Bases, Diminished Breath Sounds Cardiology CV Exam: Regular, Murmur Gastrointestinal/Abdomen GI Exam: Soft, Non-Tender, Bowel Sounds Present, Distended Integumentary Skin Exam: Clear, Warm Extremeties Extremities Exam: Trace Edema Neurologic Neuro Exam: Awake Psychiatric Psych Exam: Appropriate Responses Assessment/Plan Assessment Summary: ZEUS/Acute Renal Failure Electrolyte Assessment: Hyponatremia Problem List: (1) ZEUS (acute kidney injury) ICD Codes: N17.9 - Acute kidney failure, unspecified Plan: ZEUS most likely ATN from sepsis and low blood pressure. Other differential will be ATN, Acute interstitial nephritis, and Post infectious GN,unlikely. HD started on 10/08 and last HD on 11/15 Plan Will discontinue lasix as patient has no edema. Continue to monitor UOP, BMP, and monitor renal recovery. HD on hold for now last HD 11/15 creatine improving daily at 2.78 from 2.27 yesterday. Creatinine is improving, off Lasix, edema improved. (2) Sepsis ICD Codes: A41.9 - Sepsis, unspecified organism Status: Acute Plan: Antibiotics per ID (3) Endocarditis ICD Codes: I38 - Endocarditis, valve unspecified Status: Acute Plan: antibiotics renal dosing Problem Qualifiers (1) Sepsis: Qualified Codes: A41.9 - Sepsis, unspecified organism (2) Endocarditis: Darek Tapia MD Nov 22, 2017 10:48
--- NOTE | 2017-11-22 11:10 | HHI.PR ---
Subjective Remarks Follow-up endocarditis. Patient is tired this morning did not sleep well last night because of visitors who left late. Discussed with nursing Objective Vitals Vital Signs Date Time Temp Pulse Resp B/P (MAP) Pulse Ox O2 Delivery O2 Flow Rate FiO2 11/22/17 08:00 97.8 104 20 109/71 (84) 99 11/22/17 08:00 Nasal Cannula 2.00 11/22/17 07:54 95 Nasal Cannula 2.00 11/22/17 05:07 98.3 104 20 117/78 (91) 98 11/22/17 00:00 98.0 99 20 118/58 (78) 96 11/21/17 20:59 98 Nasal Cannula 2.00 11/21/17 20:00 98.7 115 18 111/73 (86) 96 11/21/17 19:00 Nasal Cannula 2.00 11/21/17 16:00 98.6 105 18 116/78 (91) 94 11/21/17 15:00 112 11/21/17 12:00 97.4 100 18 104/60 (75) 100 11/21/17 12:00 112 I/O 11/21/17 11/21/17 11/21/17 11/22/17 11/22/17 11/22/17 07:00 15:00 23:00 07:00 15:00 23:00 Intake Total 1680 ml 820 ml 240 ml Output Total 1700 ml 2000 ml 825 ml Balance -20 ml -1180 ml -585 ml Intake Oral 1580 ml 720 ml 240 ml IV Total 100 ml 100 ml Output Urine Total 1700 ml 2000 ml 825 ml # Bowel Movements 1 1 Result Diagram: 11/20/17 0909 11/21/17 0548 Imaging Last Impressions Chest X-Ray 11/17/17 0000 Signed Impressions: Service Date/Time: Friday, November 17, 2017 13:05 - CONCLUSION: 1. Pleural thickening and/or fluid remains along the right lateral chest wall. 2. Cardiomegaly and apparent mild pulmonary edema again noted. 3. Interval removal of central venous line. 1. Jorge Jang MD Cyst Biopsy Asp-Paracentesis US 11/10/17 0000 Signed Impressions: Service Date/Time: Friday, November 10, 2017 10:52 - CONCLUSION: Uncomplicated ultrasound guided paracentesis. Madi Mccartney MD Abdomen Ultrasound 11/07/17 0000 Signed Impressions: Service Date/Time: Tuesday, November 07, 2017 11:36 - CONCLUSION: Moderate amount of ascites confirmed for subsequent paracentesis but the patient refused the procedure and therefore was sent back to the floor. Khoi Padilla MD Chest CT 11/03/17 0000 Signed Impressions: Service Date/Time: Friday, November 03, 2017 10:16 - CONCLUSION: Scattered areas of consolidation and scattered nodular foci identified, a overall improved from the previous study however the consolidation in the right middle lobe is increased and is a change from previous studies. Chadwick Diaz MD Liver Ultrasound 10/24/17 0000 Signed Impressions: Service Date/Time: Tuesday, October 24, 2017 16:43 - CONCLUSION: Hepatosplenomegaly with ascites. Echogenic kidney Madi Mccartney MD Abdomen/Pelvis CT 10/24/17 0000 Signed Impressions: Service Date/Time: Tuesday, October 24, 2017 21:37 - CONCLUSION: 1. Hepatosplenomegaly. 2. Moderate amount of ascites. 3. Diffuse anasarca. 4. Bibasilar pleural effusions and scattered infiltrates. Khoi Padilla MD Tunnelled Chest Tube Removal 10/20/17 0000 Signed Impressions: Service Date/Time: Friday, October 20, 2017 00:00 - CONCLUSION: Uncomplicated chest tube removal. Madi Mccartney MD Upper Extremity Ultrasound 10/13/17 0000 Signed Impressions: Service Date/Time: Friday, October 13, 2017 11:25 - CONCLUSION: Normal examination. Christian Kaur MD Abdomen X-Ray 10/10/17 0000 Signed Impressions: Service Date/Time: Tuesday, October 10, 2017 16:46 - CONCLUSION: Negative for free air or obstruction. Rahul Yarbrough MD FACR Chest Tube Insertion 10/06/17 0000 Signed Impressions: Service Date/Time: Friday, October 06, 2017 15:37 - CONCLUSION: Uncomplicated chest tube placement as above. Emerson Hui MD Objective Remarks AAOx3 nad S1S2 RRR, soft 2/6 systolic murmur Abdomen soft, nt, mildly, distended Clear lungs BL +1 edema in lower extremities B/L. Stage IV sacral pressure ulcer Procedures CT-guided chest tube placement on left chest. Date 10/06/17. Paracentesis central line CARMEN A/P Problem List: (1) Endocarditis ICD Code: I38 - Endocarditis, valve unspecified Status: Acute (2) MSSA bacteremia ICD Code: R78.81 - Bacteremia (3) Tricuspid valve vegetation ICD Code: I33.0 - Acute and subacute infective endocarditis (4) IV drug abuse ICD Code: F19.10 - Other psychoactive substance abuse, uncomplicated (5) Pleural effusion, bilateral ICD Code: J90 - Pleural effusion, not elsewhere classified (6) Septic embolism ICD Code: I26.90 - Septic pulmonary embolism without acute cor pulmonale Status: Acute (7) Hepatitis C ICD Code: B19.20 - Unspecified viral hepatitis C without hepatic coma (8) Hepatosplenomegaly ICD Code: R16.2 - Hepatomegaly with splenomegaly, not elsewhere classified (9) Sacral decubitus ulcer, stage IV ICD Code: L89.154 - Pressure ulcer of sacral region, stage 4 Status: Acute (10) Anasarca ICD Code: R60.1 - Generalized edema (11) Acute systolic heart failure ICD Code: I50.21 - Acute systolic (congestive) heart failure (12) Moderate protein-calorie malnutrition ICD Code: E44.0 - Moderate protein-calorie malnutrition Status: Acute (13) Hyponatremia ICD Code: E87.1 - Hypo-osmolality and hyponatremia Status: Acute (14) ZEUS (acute kidney injury) ICD Code: N17.9 - Acute kidney failure, unspecified (15) Anemia ICD Code: D64.9 - Anemia, unspecified (16) Debility ICD Code: R53.81 - Other malaise Status: Acute (17) Transaminitis ICD Code: R74.0 - Nonspecific elevation of levels of transaminase and lactic acid dehydrogenase [LDH] Status: Resolved (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 Repeat bedside echocardiogram on 10/18 showed a similar size vegetation. Cardiology and CT surgery ff. D/W Dr. Charles declined surgery due to active IV drug use, multiple medical complications. Discussed with [facility] who agreed with plan of our cardiothoracic surgeon. [facility] administration has denied the patient as well per CM. Continue IV cefazolin no stop date at this time discussed with infectious disease (2) MSSA bacteremia Plan: Continue IV antibiotics as per ID. Last blood cultures on 10/18 negative 5. (3) Tricuspid valve vegetation Plan: Cardiology consulted and following. Dr Charles declined performing surgery on patient. (4) IV drug abuse Plan: The patient states he has not used drugs in 3 months. Advised and reinforced drug cessation. (5) Pleural effusion, bilateral Plan: Likely secondary to fluid overload and acute systolic heart failure. The patient is being dialyzed s/p thoracentesis. (6) Septic embolism Plan: Secondary to tricuspid valve endocarditis. 11/12 previously on 4 L nasal cannula, respiratory status improving with patient on 2 L nasal cannula. (7) Hepatitis C Plan: Hepatitis C antibody reactive. Hepatitis C viral load 27513. Hepatitis C genotype 1A. Hepatitic ultrasound revealed hepatosplenomegaly. We will refer to GI as an outpatient for treatment. (8) Hepatosplenomegaly Plan: As seen on CT of the abdomen and pelvis with moderate amount of ascites and diffuse anasarca. (9) Sacral decubitus ulcer, stage IV Plan: wound care consulted - fu recommendations. 11/12 consulted plastic surgery will follow up discussed with nursing. Continue wound care. (10) Anasarca Plan: As evidenced by bilateral pleural effusions, ascites and anasarca described on CT abdomen and pelvis. Patient being dialyzed. SP abdominal paracentesis on 11/10. Ascitic fluid non infectious. Will monitor off diuresis (11) Acute systolic heart failure Plan: Echo with EF of 35-40%. Treat fluid overload with dialysis. Continue beta-ashutosh. Unable to start FLETCHER inhibitor secondary to ZEUS (12) Moderate protein-calorie malnutrition Plan: Dietitian consulted, recommends liberalize diet to allow more fluid options and hopefully increase p.o. intake. Nepro twice daily with encouragement. (13) Hyponatremia Plan: On fluid restriction - continue. Sodium stable at 131. (14) ZEUS (acute kidney injury) Plan: Most likely due to ATN from sepsis and low blood pressure. HD started on 10/08. Continue dialysis as per nephrology. Dialysis on Friday/ and Friday schedule currently on hold last hemodialysis November 15. Creatinine improving. Avoid nephrotoxins, continue to monitor BUN and creatinine. (15) Anemia Plan: On ferrous sulfate and Epogen as per nephrology. Anemia likely secondary to chronic kidney disease. 11/09 hemoglobin dropped from 8.9-7.7. No obvious bleeding. Continue to monitor hemoglobin and hematocrit. Transfuse as needed for hemoglobin less than 7 or symptomatic anemia. Epogen as per nephrology. Hemoglobin stable. (16) Debility Plan: Continue PT and OT. Patient will need to go to rehab upon discharge. (17) Transaminitis Plan: Now resolved. Continue to monitor liver function tests. Transaminitis likely secondary to sepsis and hepatitis C. (18) Chronic pain syndrome Continue gabapentin, duloxetine, tizanidine, oxycodone. Pain seems to be controlled. Will wean narcs when dc date known will f/u with ID stop date of Cefazolin (19) MARTÍN positive Plan: The patient also has a positive MARTÍN with a titer of 1: 40 with a diffuse pattern. This is a low pattern and the patient does not have any other symptoms consistent with rheumatic disease. Will not pursue any further testing. The patient will need to follow-up as an outpatient by his primary care physician. (20) Hypotension Plan: Unclear etiology of hypotension. However the patient is on hemodialysis and is hypoalbuminemic, also patient is on several medications to control pain including fentanyl patch, Roxicodone, gabapentin. All of these factors could be contributing to the patient's hypotension. Upon review of records the patient has been hypotensive for some time now. Patient's hypotension started on 10/31/17 and blood pressure occasionally goes up , however it is usually in the high 80s to low 90s systolic. Start midodrine for blood pressure support. 11/10 BP better but bp still lowin the 90's systolic. Increase Midodrine dose to 10 mg po tid. BP still borderline low, continue midodrine. Patient asymptomatic. DVT prophylaxis: SCDs, heparin subcutaneously. Discharge Planning Patient with endocarditis/MSSA bacteremia on IV antibiotics and ZEUS on hemodialysis. Will need ID and nephrology clearance. Problem Qualifiers (1) Endocarditis: (2) Hepatitis C: (3) Anemia: (4) Hypotension: Qualified Codes: I95.9 - Hypotension, unspecified Abando,Lior MD Nov 22, 2017 11:10
[2017-11-22] MEDS: FERROUS SULFATE 325 MG (65 MG ELEMENTAL IRON) TAB PO SCH ×2 (14:07→16:28)
[2017-11-22] MEDS: GABAPENTIN 100 MG CAP PO SCH (14:07)
[2017-11-22] MEDS: MORPHINE SULFATE 2 MG/ML SYRINGE IV PUSH PRN (14:08)
--- NOTE | 2017-11-22 20:07 | PD.CONS ---
History of Present Illness Service Plastic Surgery I was not notified of the consult until the charge nurse called today. I drove in specifically to see the patient. Upon meeting the patient, he refuses any examination or intervention. Consult Requested By Primary Care Physician No Primary Care Physician Diagnoses: Past Family Social History Allergies: Coded Allergies: erythromycin base (Verified Allergy, Severe, Nausea/Vomiting, 10/03/17) raspberry (Unverified Allergy, Mild, 10/03/17) Physical Exam Result Diagram: 11/20/17 0909 11/21/17 0548 Odin Oro MD Nov 22, 2017 20:07
[2017-11-22] MEDS: TEMAZEPAM 15 MG CAP PO PRN (21:46)
[2017-11-23] VITALS (11 sets, daily range): BP systolic 96–124; BP diastolic 61–70; PULSE 90–122; RESP 18–22; TEMP 97.8–98.3; O2SAT 97–100
[2017-11-23] MEDS: RESP: ALBUTEROL 2.5 MG/3 ML NEB (PRN) NEB ×5 (02:30→21:06)
[2017-11-23] MEDS: MIDODRINE 5 MG TAB PO SCH ×3 (05:49→17:43)
[2017-11-23] MEDS: CHLORHEXIDINE 0.12% (ORAL KIT) 15 ML CUP MT SCH ×2 (08:00→20:00)
[2017-11-23 08:37] LABS: BICARBONATE 29.9 MEQ/L (21.0-32.0); CALCIUM 7.7 MG/DL (8.5-10.1); CREATININE 2.11 MG/DL (0.60-1.30); MAGNESIUM 1.2 MG/DL (1.5-2.5)
[2017-11-23] MEDS: DOCUSATE SODIUM 50 MG/SENNA 8.6 MG TAB PO SCH ×2 (09:00→21:00)
[2017-11-23] MEDS: METOPROLOL TARTRATE 25 MG TAB PO SCH ×2 (09:00→22:13)
[2017-11-23] MEDS: PANTOPRAZOLE SOD 40 MG DELAYED RELEASE TAB PO SCH ×2 (10:26→22:13)
[2017-11-23] MEDS: LACTOBACILLUS ACIDOPHILUS TAB PO SCH ×3 (10:27→17:43)
[2017-11-23] MEDS: CALCIUM ACETATE 667 MG CAP PO SCH ×3 (10:27→17:43)
[2017-11-23] MEDS: SODIUM CHLORIDE 1 GRAM TAB PO SCH (10:27)
[2017-11-23] MEDS: SODIUM CHLORIDE 0.9% FLUSH 10 ML FLUSH IV FLUSH SCH ×2 (10:28→21:00)
[2017-11-23] MEDS: FLUTICASONE PROPIONATE 44 MCG/ACT 10.6 GM INHALER INH SCH ×2 (10:28→22:19)
[2017-11-23] MEDS: DULoxetine HCl DR 60 MG CAP PO SCH (10:28)
[2017-11-23] MEDS: HEPARIN SODIUM - SQ 10,000 UNITS/ML VIAL SQ SCH ×2 (10:28→21:00)
[2017-11-23] MEDS: SODIUM HYPOCHLORITE 0.125% 500 ML BTL TOPICAL SCH (10:29)
[2017-11-23] MEDS: COLLAGENASE OINT 30 GM TUBE TOPICAL SCH (10:29)
--- NOTE | 2017-11-23 10:43 | HHI.PR ---
Subjective Remarks Follow-up endocarditis and sacral pressure ulcer. States he is hungry confirms he is refusing surgical intervention of sacral pressure ulcer discussed with nursing Objective Vitals Vital Signs Date Time Temp Pulse Resp B/P (MAP) Pulse Ox O2 Delivery O2 Flow Rate FiO2 11/23/17 08:00 Nasal Cannula 3.00 11/23/17 08:00 97.8 90 18 98/70 (79) 98 11/23/17 05:35 98.3 115 22 96/61 (73) 100 11/23/17 04:00 116 11/23/17 00:00 98.3 109 20 107/69 (82) 98 11/23/17 00:00 109 11/22/17 20:59 100 Nasal Cannula 2.00 11/22/17 20:00 Nasal Cannula 3.00 11/22/17 20:00 98.0 113 20 106/69 (81) 97 11/22/17 20:00 114 11/22/17 16:07 113 11/22/17 16:00 97.4 100 20 110/63 (79) 100 11/22/17 16:00 Nasal Cannula 3.00 11/22/17 12:16 106 11/22/17 12:00 97.6 106 20 144/74 (97) 96 11/22/17 12:00 Nasal Cannula 2.00 I/O 11/22/17 11/22/17 11/22/17 11/23/17 11/23/17 11/23/17 07:00 15:00 23:00 07:00 15:00 23:00 Intake Total 240 ml 560 ml 240 ml Output Total 825 ml 750 ml 1275 ml Balance -585 ml -190 ml -1035 ml Intake Oral 240 ml 560 ml 240 ml Output Urine Total 825 ml 750 ml 1275 ml Result Diagram: 11/20/17 0909 11/23/17 0700 Imaging Last Impressions Chest X-Ray 11/17/17 0000 Signed Impressions: Service Date/Time: Friday, November 17, 2017 13:05 - CONCLUSION: 1. Pleural thickening and/or fluid remains along the right lateral chest wall. 2. Cardiomegaly and apparent mild pulmonary edema again noted. 3. Interval removal of central venous line. 1. Jorge Jang MD Cyst Biopsy Asp-Paracentesis US 11/10/17 0000 Signed Impressions: Service Date/Time: Friday, November 10, 2017 10:52 - CONCLUSION: Uncomplicated ultrasound guided paracentesis. Madi Mccartney MD Abdomen Ultrasound 11/07/17 0000 Signed Impressions: Service Date/Time: Tuesday, November 07, 2017 11:36 - CONCLUSION: Moderate amount of ascites confirmed for subsequent paracentesis but the patient refused the procedure and therefore was sent back to the floor. Khoi Padilla MD Chest CT 11/03/17 0000 Signed Impressions: Service Date/Time: Friday, November 03, 2017 10:16 - CONCLUSION: Scattered areas of consolidation and scattered nodular foci identified, a overall improved from the previous study however the consolidation in the right middle lobe is increased and is a change from previous studies. Chadwick Diaz MD Liver Ultrasound 10/24/17 0000 Signed Impressions: Service Date/Time: Tuesday, October 24, 2017 16:43 - CONCLUSION: Hepatosplenomegaly with ascites. Echogenic kidney Madi Mccartney MD Abdomen/Pelvis CT 10/24/17 0000 Signed Impressions: Service Date/Time: Tuesday, October 24, 2017 21:37 - CONCLUSION: 1. Hepatosplenomegaly. 2. Moderate amount of ascites. 3. Diffuse anasarca. 4. Bibasilar pleural effusions and scattered infiltrates. Khoi Padilla MD Tunnelled Chest Tube Removal 10/20/17 0000 Signed Impressions: Service Date/Time: Friday, October 20, 2017 00:00 - CONCLUSION: Uncomplicated chest tube removal. Madi Mccartney MD Upper Extremity Ultrasound 10/13/17 0000 Signed Impressions: Service Date/Time: Friday, October 13, 2017 11:25 - CONCLUSION: Normal examination. Christian Kaur MD Abdomen X-Ray 10/10/17 0000 Signed Impressions: Service Date/Time: Tuesday, October 10, 2017 16:46 - CONCLUSION: Negative for free air or obstruction. Rahul Yarbrough MD FACR Chest Tube Insertion 10/06/17 0000 Signed Impressions: Service Date/Time: Friday, October 06, 2017 15:37 - CONCLUSION: Uncomplicated chest tube placement as above. Emerson Hui MD Objective Remarks AAOx3 nad S1S2 RRR, soft 2/6 systolic murmur Abdomen soft, nt, mildly, distended Clear lungs BL +1 edema in lower extremities B/L. Stage IV sacral pressure ulcer Procedures CT-guided chest tube placement on left chest. Date 10/06/17. Paracentesis central line CARMEN A/P Problem List: (1) Endocarditis ICD Code: I38 - Endocarditis, valve unspecified Status: Acute (2) MSSA bacteremia ICD Code: R78.81 - Bacteremia (3) Tricuspid valve vegetation ICD Code: I33.0 - Acute and subacute infective endocarditis (4) IV drug abuse ICD Code: F19.10 - Other psychoactive substance abuse, uncomplicated (5) Pleural effusion, bilateral ICD Code: J90 - Pleural effusion, not elsewhere classified (6) Septic embolism ICD Code: I26.90 - Septic pulmonary embolism without acute cor pulmonale Status: Acute (7) Hepatitis C ICD Code: B19.20 - Unspecified viral hepatitis C without hepatic coma (8) Hepatosplenomegaly ICD Code: R16.2 - Hepatomegaly with splenomegaly, not elsewhere classified (9) Sacral decubitus ulcer, stage IV ICD Code: L89.154 - Pressure ulcer of sacral region, stage 4 Status: Acute (10) Anasarca ICD Code: R60.1 - Generalized edema (11) Acute systolic heart failure ICD Code: I50.21 - Acute systolic (congestive) heart failure (12) Moderate protein-calorie malnutrition ICD Code: E44.0 - Moderate protein-calorie malnutrition Status: Acute (13) Hyponatremia ICD Code: E87.1 - Hypo-osmolality and hyponatremia Status: Acute (14) ZEUS (acute kidney injury) ICD Code: N17.9 - Acute kidney failure, unspecified (15) Anemia ICD Code: D64.9 - Anemia, unspecified (16) Debility ICD Code: R53.81 - Other malaise Status: Acute (17) Transaminitis ICD Code: R74.0 - Nonspecific elevation of levels of transaminase and lactic acid dehydrogenase [LDH] Status: Resolved (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 Repeat bedside echocardiogram on 10/18 showed a similar size vegetation. Cardiology and CT surgery ff. D/W Dr. Charles declined surgery due to active IV drug use, multiple medical complications. Discussed with [facility] who agreed with plan of our cardiothoracic surgeon. [facility] administration has denied the patient as well per CM. Continue IV cefazolin no stop date at this time discussed with infectious disease (2) MSSA bacteremia Plan: Continue IV antibiotics as per ID. Last blood cultures on 10/18 negative 5. (3) Tricuspid valve vegetation Plan: Cardiology consulted and following. Dr Charles declined performing surgery on patient. (4) IV drug abuse Plan: The patient states he has not used drugs in 3 months. Advised and reinforced drug cessation. (5) Pleural effusion, bilateral Plan: Likely secondary to fluid overload and acute systolic heart failure. The patient is being dialyzed s/p thoracentesis. (6) Septic embolism Plan: Secondary to tricuspid valve endocarditis. 11/12 previously on 4 L nasal cannula, respiratory status improving with patient on 2 L nasal cannula. (7) Hepatitis C Plan: Hepatitis C antibody reactive. Hepatitis C viral load 42805. Hepatitis C genotype 1A. Hepatitic ultrasound revealed hepatosplenomegaly. We will refer to GI as an outpatient for treatment. (8) Hepatosplenomegaly Plan: As seen on CT of the abdomen and pelvis with moderate amount of ascites and diffuse anasarca status post diuresis. (9) Sacral decubitus ulcer, stage IV Plan: wound care consulted - fu recommendations. 11/12 consulted plastic surgery, patient refused examination since he does not want surgical intervention. Continue wound care. (10) Anasarca Plan: As evidenced by bilateral pleural effusions, ascites and anasarca described on CT abdomen and pelvis. Patient being dialyzed. SP abdominal paracentesis on 11/10. Ascitic fluid non infectious. Will monitor off diuresis (11) Acute systolic heart failure Plan: Echo with EF of 35-40%. Treat fluid overload with dialysis. Continue beta-ashutosh. Unable to start FLETCHER inhibitor secondary to ZEUS (12) Moderate protein-calorie malnutrition Plan: Dietitian consulted, recommends liberalize diet to allow more fluid options and hopefully increase p.o. intake. Nepro twice daily with encouragement. (13) Hyponatremia Plan: On fluid restriction - continue. Sodium stable at 131. (14) ZEUS (acute kidney injury) Plan: Most likely due to ATN from sepsis and low blood pressure. HD started on 10/08. Continue dialysis as per nephrology. Dialysis on Friday/ and Friday schedule currently on hold last hemodialysis November 15. Creatinine improving. Avoid nephrotoxins, continue to monitor BUN and creatinine. (15) Anemia Plan: On ferrous sulfate and Epogen as per nephrology. Anemia likely secondary to chronic kidney disease. 11/09 hemoglobin dropped from 8.9-7.7. No obvious bleeding. Continue to monitor hemoglobin and hematocrit. Transfuse as needed for hemoglobin less than 7 or symptomatic anemia. Epogen as per nephrology. Hemoglobin stable. (16) Debility Plan: Continue PT and OT. Patient will need to go to rehab upon discharge. (17) Transaminitis Plan: Now resolved. Continue to monitor liver function tests. Transaminitis likely secondary to sepsis and hepatitis C. (18) Chronic pain syndrome Continue gabapentin, duloxetine, tizanidine, oxycodone. Pain seems to be controlled. Will wean narcs when dc date known will f/u with ID stop date of Cefazolin (19) MARTÍN positive Plan: The patient also has a positive MARTÍN with a titer of 1: 40 with a diffuse pattern. This is a low pattern and the patient does not have any other symptoms consistent with rheumatic disease. Will not pursue any further testing. The patient will need to follow-up as an outpatient by his primary care physician. (20) Hypotension Plan: Unclear etiology of hypotension. However the patient is on hemodialysis and is hypoalbuminemic, also patient is on several medications to control pain including fentanyl patch, Roxicodone, gabapentin. All of these factors could be contributing to the patient's hypotension. Upon review of records the patient has been hypotensive for some time now. Patient's hypotension started on 10/31/17 and blood pressure occasionally goes up , however it is usually in the high 80s to low 90s systolic. Start midodrine for blood pressure support. 11/10 BP better but bp still lowin the 90's systolic. Increase Midodrine dose to 10 mg po tid. BP still borderline low, continue midodrine. Patient asymptomatic. DVT prophylaxis: SCDs, heparin subcutaneously. Discharge Planning Patient with endocarditis/MSSA bacteremia on IV antibiotics and ZEUS on hemodialysis. Will need ID and nephrology clearance. Problem Qualifiers (1) Endocarditis: (2) Hepatitis C: (3) Anemia: (4) Hypotension: Qualified Codes: I95.9 - Hypotension, unspecified Rashad Langston MD Nov 23, 2017 10:43
[2017-11-23] MEDS: fentaNYL 100 MCG/HR PATCH T-DERMAL SCH (12:00)
[2017-11-23] MEDS: REMOVE OLD PATCH T-DERMAL SCH (12:00)
[2017-11-23] MEDS: MAGNESIUM SULFATE 1 GM PREMIX 100 ML IV SCH ×2 (14:28→17:44)
[2017-11-23] MEDS: GABAPENTIN 100 MG CAP PO SCH (14:28)
[2017-11-23] MEDS: FERROUS SULFATE 325 MG (65 MG ELEMENTAL IRON) TAB PO SCH ×2 (14:28→17:43)
--- NOTE | 2017-11-23 14:30 | HHI.NPPN ---
Subjective Complaints: Shortness of Breath Renal Failure: Acute History of Present Illness Patient is 27-year-old male who reported to ER with body aches, 7 days of diarrhea with development fever. Past medical history of IV drug use. Patient is sedated and ventilated FiO2 at 40 %. Nephrology is consulted for ZEUS and fluid over load status. Patients creatinine is 3.02 and GFR 25ml/min. Patient is UOP at 800cc for last 24 hours. Weight has increased by over 10 kg since admission. IVF's have been stopped and lasix has been given. Patient has endocarditis with large tricuspid valve vegetation, and pulmonic vegetation. Noted to have bacteremia with hypotension with SBP in the 90's. Additional Remarks Patient is alert, mild abd. distension, no vomiting, eating well. Review of Systems Respiratory Lungs: SOB Respiratory Remarks Improved Cardiovascular Cardiac Remarks denies CP Gastrointestinal GI Remarks No abdominal pain Psych Psych: Depression, Anxiety Objective Data Data Vital Signs Date Time Temp Pulse Resp B/P (MAP) Pulse Ox O2 Delivery O2 Flow Rate FiO2 11/23/17 12:06 97 Nasal Cannula 3.00 11/23/17 12:00 97.9 99 18 124/64 (84) 99 11/23/17 08:00 Nasal Cannula 3.00 11/23/17 08:00 97.8 90 18 98/70 (79) 98 11/23/17 05:35 98.3 115 22 96/61 (73) 100 11/23/17 04:00 116 11/23/17 00:00 98.3 109 20 107/69 (82) 98 11/23/17 00:00 109 11/22/17 20:59 100 Nasal Cannula 2.00 11/22/17 20:00 Nasal Cannula 3.00 11/22/17 20:00 98.0 113 20 106/69 (81) 97 11/22/17 20:00 114 11/22/17 16:07 113 11/22/17 16:00 97.4 100 20 110/63 (79) 100 11/22/17 16:00 Nasal Cannula 3.00 -: 11/20/17 0909 11/23/17 0700 Physical Exam General Appearance: Well Developed, No Acute Distress, Comfortable Eyes Eye Exam: Pupils Equal Pulmonary Resp Exam: Breath Sounds Equal, Crackles, Decreased Bases, Diminished Breath Sounds Cardiology CV Exam: Regular, Murmur Gastrointestinal/Abdomen GI Exam: Soft, Non-Tender, Bowel Sounds Present, Distended Integumentary Skin Exam: Clear, Warm Extremeties Extremities Exam: Trace Edema Neurologic Neuro Exam: Awake Psychiatric Psych Exam: Appropriate Responses Assessment/Plan Assessment Summary: ZEUS/Acute Renal Failure Electrolyte Assessment: Hyponatremia Problem List: (1) ZEUS (acute kidney injury) ICD Codes: N17.9 - Acute kidney failure, unspecified Plan: ZEUS most likely ATN from sepsis and low blood pressure. Other differential will be ATN, Acute interstitial nephritis, and Post infectious GN,unlikely. HD started on 10/08 and last HD on 11/15 Plan Will discontinue lasix as patient has no edema. Continue to monitor UOP, BMP, and monitor renal recovery. HD on hold for now last HD 11/15. Creatinine is continue to improve. Edema is better. (2) Sepsis ICD Codes: A41.9 - Sepsis, unspecified organism Status: Acute Plan: Antibiotics per ID (3) Endocarditis ICD Codes: I38 - Endocarditis, valve unspecified Status: Acute Plan: antibiotics renal dosing Problem Qualifiers (1) Sepsis: Qualified Codes: A41.9 - Sepsis, unspecified organism (2) Endocarditis: Darek Tapia MD Nov 23, 2017 14:30
[2017-11-23] MEDS: MORPHINE SULFATE 2 MG/ML SYRINGE IV PUSH PRN (14:31)
[2017-11-24] VITALS (10 sets, daily range): BP systolic 105–129; BP diastolic 61–85; PULSE 100–125; RESP 19–21; TEMP 97.4–98.7; O2SAT 95–100
[2017-11-24] MEDS: MIDODRINE 5 MG TAB PO SCH ×3 (05:52→18:36)
[2017-11-24] MEDS: RESP: ALBUTEROL 2.5 MG/3 ML NEB (PRN) NEB ×2 (06:23→13:52)
[2017-11-24 07:32] LABS: BICARBONATE 31.5 MEQ/L (21.0-32.0); CALCIUM 7.8 MG/DL (8.5-10.1); CREATININE 1.85 MG/DL (0.60-1.30); MAGNESIUM 1.5 MG/DL (1.5-2.5)
[2017-11-24] MEDS: CHLORHEXIDINE 0.12% (ORAL KIT) 15 ML CUP MT SCH ×2 (08:00→20:00)
[2017-11-24] MEDS ORDERED: POTASSIUM CHLORIDE 20 MEQ CONTROLLED RELEASE TAB PO ONE (08:15)
[2017-11-24] MEDS: FLUTICASONE PROPIONATE 44 MCG/ACT 10.6 GM INHALER INH SCH ×2 (09:00→21:37)
[2017-11-24] MEDS: COLLAGENASE OINT 30 GM TUBE TOPICAL SCH (09:00)
[2017-11-24] MEDS: DOCUSATE SODIUM 50 MG/SENNA 8.6 MG TAB PO SCH ×2 (09:00→21:46)
[2017-11-24] MEDS: SODIUM HYPOCHLORITE 0.125% 500 ML BTL TOPICAL SCH (09:00)
[2017-11-24] MEDS: SODIUM CHLORIDE 0.9% FLUSH 10 ML FLUSH IV FLUSH SCH ×2 (09:00→21:46)
[2017-11-24] MEDS: SODIUM CHLORIDE 1 GRAM TAB PO SCH (09:52)
[2017-11-24] MEDS: METOPROLOL TARTRATE 25 MG TAB PO SCH ×2 (09:53→21:38)
[2017-11-24] MEDS: DULoxetine HCl DR 60 MG CAP PO SCH (09:54)
[2017-11-24] MEDS: HEPARIN SODIUM - SQ 10,000 UNITS/ML VIAL SQ SCH ×2 (09:54→21:45)
[2017-11-24] MEDS: LACTOBACILLUS ACIDOPHILUS TAB PO SCH ×3 (09:54→18:36)
[2017-11-24] MEDS: PANTOPRAZOLE SOD 40 MG DELAYED RELEASE TAB PO SCH ×2 (09:54→21:38)
[2017-11-24] MEDS: CALCIUM ACETATE 667 MG CAP PO SCH ×3 (09:54→18:36)
[2017-11-24] MEDS: MORPHINE SULFATE 2 MG/ML SYRINGE IV PUSH PRN (10:11)
--- NOTE | 2017-11-24 11:13 | HHI.PR ---
Subjective Remarks Follow-up endocarditis and sacral pressure ulcer. Patient has no new complaints still refusing surgical intervention to his sacral pressure ulcer. Discussed with nursing Objective Vitals Vital Signs Date Time Temp Pulse Resp B/P (MAP) Pulse Ox O2 Delivery O2 Flow Rate FiO2 11/24/17 10:01 95 Nasal Cannula 3.00 11/24/17 08:00 97.4 101 20 107/78 (88) 95 11/24/17 06:23 96 Nasal Cannula 3.00 11/24/17 04:20 18 11/24/17 04:01 100 11/24/17 04:00 98.6 111 19 105/73 (84) 100 11/24/17 00:00 119 11/24/17 00:00 98.7 112 19 110/72 (85) 100 11/23/17 22:15 Nasal Cannula 3.00 11/23/17 20:00 98.1 116 19 109/70 (83) 100 11/23/17 20:00 118 11/23/17 20:00 118 11/23/17 16:23 116 11/23/17 16:00 Nasal Cannula 3.00 11/23/17 16:00 97.9 99 18 124/64 (84) 99 11/23/17 15:15 97 Nasal Cannula 3.00 11/23/17 12:06 97 Nasal Cannula 3.00 11/23/17 12:00 97.9 99 18 124/64 (84) 99 11/23/17 12:00 Nasal Cannula 3.00 11/23/17 12:00 111 I/O 11/23/17 11/23/17 11/23/17 11/24/17 11/24/17 11/24/17 07:00 15:00 23:00 07:00 15:00 23:00 Intake Total 240 ml 580 ml Output Total 1275 ml 600 ml Balance -1035 ml 580 ml -600 ml Intake Oral 240 ml 480 ml IV Total 100 ml Output Urine Total 1275 ml 600 ml # Voids 3 # Bowel Movements 2 Result Diagram: 11/20/17 0909 11/24/17 0645 Imaging Last Impressions Chest X-Ray 11/17/17 0000 Signed Impressions: Service Date/Time: Friday, November 17, 2017 13:05 - CONCLUSION: 1. Pleural thickening and/or fluid remains along the right lateral chest wall. 2. Cardiomegaly and apparent mild pulmonary edema again noted. 3. Interval removal of central venous line. 1. Jorge Jang MD Cyst Biopsy Asp-Paracentesis US 11/10/17 0000 Signed Impressions: Service Date/Time: Friday, November 10, 2017 10:52 - CONCLUSION: Uncomplicated ultrasound guided paracentesis. Madi Mccartney MD Abdomen Ultrasound 11/07/17 0000 Signed Impressions: Service Date/Time: Tuesday, November 07, 2017 11:36 - CONCLUSION: Moderate amount of ascites confirmed for subsequent paracentesis but the patient refused the procedure and therefore was sent back to the floor. Khio Padilla MD Chest CT 11/03/17 0000 Signed Impressions: Service Date/Time: Friday, November 03, 2017 10:16 - CONCLUSION: Scattered areas of consolidation and scattered nodular foci identified, a overall improved from the previous study however the consolidation in the right middle lobe is increased and is a change from previous studies. Chadwick Diaz MD Liver Ultrasound 10/24/17 0000 Signed Impressions: Service Date/Time: Tuesday, October 24, 2017 16:43 - CONCLUSION: Hepatosplenomegaly with ascites. Echogenic kidney Madi Mccartney MD Abdomen/Pelvis CT 10/24/17 0000 Signed Impressions: Service Date/Time: Tuesday, October 24, 2017 21:37 - CONCLUSION: 1. Hepatosplenomegaly. 2. Moderate amount of ascites. 3. Diffuse anasarca. 4. Bibasilar pleural effusions and scattered infiltrates. Khoi Padilla MD Tunnelled Chest Tube Removal 10/20/17 0000 Signed Impressions: Service Date/Time: Friday, October 20, 2017 00:00 - CONCLUSION: Uncomplicated chest tube removal. Madi Mccartney MD Upper Extremity Ultrasound 10/13/17 0000 Signed Impressions: Service Date/Time: Friday, October 13, 2017 11:25 - CONCLUSION: Normal examination. Christian Kaur MD Abdomen X-Ray 10/10/17 0000 Signed Impressions: Service Date/Time: Tuesday, October 10, 2017 16:46 - CONCLUSION: Negative for free air or obstruction. Rahul Yarbrough MD FACR Chest Tube Insertion 10/06/17 0000 Signed Impressions: Service Date/Time: Friday, October 06, 2017 15:37 - CONCLUSION: Uncomplicated chest tube placement as above. Emerson Hui MD Objective Remarks AAOx3 nad S1S2 RRR, soft 2/6 systolic murmur Abdomen soft, nt, mildly, distended Clear lungs BL +1 edema in lower extremities B/L. Stage IV sacral pressure ulcer Procedures CT-guided chest tube placement on left chest. Date 10/06/17. Paracentesis central line CARMEN A/P Problem List: (1) Endocarditis ICD Code: I38 - Endocarditis, valve unspecified Status: Acute (2) MSSA bacteremia ICD Code: R78.81 - Bacteremia (3) Tricuspid valve vegetation ICD Code: I33.0 - Acute and subacute infective endocarditis (4) IV drug abuse ICD Code: F19.10 - Other psychoactive substance abuse, uncomplicated (5) Pleural effusion, bilateral ICD Code: J90 - Pleural effusion, not elsewhere classified (6) Septic embolism ICD Code: I26.90 - Septic pulmonary embolism without acute cor pulmonale Status: Acute (7) Hepatitis C ICD Code: B19.20 - Unspecified viral hepatitis C without hepatic coma (8) Hepatosplenomegaly ICD Code: R16.2 - Hepatomegaly with splenomegaly, not elsewhere classified (9) Sacral decubitus ulcer, stage IV ICD Code: L89.154 - Pressure ulcer of sacral region, stage 4 Status: Acute (10) Anasarca ICD Code: R60.1 - Generalized edema (11) Acute systolic heart failure ICD Code: I50.21 - Acute systolic (congestive) heart failure (12) Moderate protein-calorie malnutrition ICD Code: E44.0 - Moderate protein-calorie malnutrition Status: Acute (13) Hyponatremia ICD Code: E87.1 - Hypo-osmolality and hyponatremia Status: Acute (14) ZEUS (acute kidney injury) ICD Code: N17.9 - Acute kidney failure, unspecified (15) Anemia ICD Code: D64.9 - Anemia, unspecified (16) Debility ICD Code: R53.81 - Other malaise Status: Acute (17) Transaminitis ICD Code: R74.0 - Nonspecific elevation of levels of transaminase and lactic acid dehydrogenase [LDH] Status: Resolved (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 Repeat bedside echocardiogram on 10/18 showed a similar size vegetation. Cardiology and CT surgery ff. D/W Dr. Charles declined surgery due to active IV drug use, multiple medical complications. Discussed with [facility] who agreed with plan of our cardiothoracic surgeon. [facility] administration has denied the patient as well per CM. Continue IV cefazolin no stop date at this time discussed with infectious disease (2) MSSA bacteremia Plan: Continue IV antibiotics as per ID. Last blood cultures on 10/18 negative 5. (3) Tricuspid valve vegetation Plan: Cardiology consulted and following. Dr Charles declined performing surgery on patient. (4) IV drug abuse Plan: The patient states he has not used drugs in 3 months. Advised and reinforced drug cessation. (5) Pleural effusion, bilateral Plan: Likely secondary to fluid overload and acute systolic heart failure. The patient is being dialyzed s/p thoracentesis. (6) Septic embolism Plan: Secondary to tricuspid valve endocarditis. 11/12 previously on 4 L nasal cannula, respiratory status improving with patient on 2 L nasal cannula. (7) Hepatitis C Plan: Hepatitis C antibody reactive. Hepatitis C viral load 39222. Hepatitis C genotype 1A. Hepatitic ultrasound revealed hepatosplenomegaly. We will refer to GI as an outpatient for treatment. (8) Hepatosplenomegaly Plan: As seen on CT of the abdomen and pelvis with moderate amount of ascites and diffuse anasarca status post diuresis. (9) Sacral decubitus ulcer, stage IV Plan: wound care consulted - fu recommendations. 11/12 consulted plastic surgery, patient refused examination since he does not want surgical intervention. Continue wound care. (10) Anasarca Plan: As evidenced by bilateral pleural effusions, ascites and anasarca described on CT abdomen and pelvis. Patient being dialyzed. SP abdominal paracentesis on 11/10. Ascitic fluid non infectious. Will monitor off diuresis (11) Acute systolic heart failure Plan: Echo with EF of 35-40%. Treat fluid overload with dialysis. Continue beta-ashutosh. Unable to start FLETCHER inhibitor secondary to ZEUS (12) Moderate protein-calorie malnutrition Plan: Dietitian consulted, recommends liberalize diet to allow more fluid options and hopefully increase p.o. intake. Nepro twice daily with encouragement. (13) Hyponatremia Plan: On fluid restriction - continue. Sodium stable at 131. (14) ZEUS (acute kidney injury) Plan: Most likely due to ATN from sepsis and low blood pressure. HD started on 10/08. Continue dialysis as per nephrology. Dialysis on Friday/ and Friday schedule currently on hold last hemodialysis November 15. Creatinine improving. Avoid nephrotoxins, continue to monitor BUN and creatinine. (15) Anemia Plan: On ferrous sulfate and Epogen as per nephrology. Anemia likely secondary to chronic kidney disease. 11/09 hemoglobin dropped from 8.9-7.7. No obvious bleeding. Continue to monitor hemoglobin and hematocrit. Transfuse as needed for hemoglobin less than 7 or symptomatic anemia. Epogen as per nephrology. Hemoglobin stable. (16) Debility Plan: Continue PT and OT. Patient will need to go to rehab upon discharge. (17) Transaminitis Plan: Now resolved. Continue to monitor liver function tests. Transaminitis likely secondary to sepsis and hepatitis C. (18) Chronic pain syndrome Continue gabapentin, duloxetine, tizanidine, oxycodone. Pain seems to be controlled. Will wean narcs when dc date known will f/u with ID stop date of Cefazolin (19) MARTÍN positive Plan: The patient also has a positive MARTÍN with a titer of 1: 40 with a diffuse pattern. This is a low pattern and the patient does not have any other symptoms consistent with rheumatic disease. Will not pursue any further testing. The patient will need to follow-up as an outpatient by his primary care physician. (20) Hypotension Plan: Unclear etiology of hypotension. However the patient is on hemodialysis and is hypoalbuminemic, also patient is on several medications to control pain including fentanyl patch, Roxicodone, gabapentin. All of these factors could be contributing to the patient's hypotension. Upon review of records the patient has been hypotensive for some time now. Patient's hypotension started on 10/31/17 and blood pressure occasionally goes up , however it is usually in the high 80s to low 90s systolic. Start midodrine for blood pressure support. 11/10 BP better but bp still low in the 90's systolic. Increase Midodrine dose to 10 mg po tid. BP still borderline low, continue midodrine. Patient asymptomatic. DVT prophylaxis: SCDs, heparin subcutaneously. Discharge Planning Patient with endocarditis/MSSA bacteremia on IV antibiotics and ZEUS on hemodialysis. Will need ID and nephrology clearance. Problem Qualifiers (1) Endocarditis: (2) Hepatitis C: (3) Anemia: (4) Hypotension: Qualified Codes: I95.9 - Hypotension, unspecified Rashad Langston MD Nov 24, 2017 11:13
--- NOTE | 2017-11-24 13:29 | HHI.IDPN ---
Subjective Subjective Remarks is a 27 y/o CM with remote history of IV drug abuse, states he last used heroin 2 months ago, presents for evaluation of body aches, 7 days of diarrhea with development of subjective fever yesterday. Patient denies any nausea or vomiting. He denies any chest pain. This has developed within the last 24 hours. Patient does have a cough with clear sputum. Denies any prior history of endocarditis. Denies any abdominal pain. Does report some left back pain, worse while lying flat. He is well reports generalized weakness. Patient met criteria for sepsis on admission. Flu antigen negative. CXR with bilateral infiltrates. performed a bedside 2D ECHO and verbally reported a large ~4.5 cm vegetation on TV. CXR suspicious for septic emboli. Blood cultures drawn but it appears patient has received augmentin at some point and cultures may possibly be negative. ID is following for evaluation and M'ment of Severe Sepsis and Endocarditis. Notes reviewed Off HD. Participating in PT/OT Walked in hallways. s/p completion of endocarditis treatment plus few extra days. Feels well and wishes to go home with Parents. Dad in room and will help him. denies any diarrhea No rash Antibiotics Ancef Current Medications Current Medications Medications (Trade) Dose Ordered Sig/Willem Route Start Time Stop Time Status Last Admin (NS Flush) 2 ml UNSCH PRN IV FLUSH 10/03/17 21:15 11/17/17 06:46 (NS Flush) 2 ml BID IV FLUSH 10/04/17 09:00 11/24/17 09:00 (Zofran Inj) 4 mg Q6H PRN IV PUSH 10/03/17 21:15 11/11/17 11:45 (Restoril) 15 mg HS PRN PO 10/03/17 21:15 11/22/17 21:46 (Renita-Colace) 1 tab BID PO 10/04/17 09:00 11/18/17 22:20 (Senokot) 17.2 mg Q12H PRN PO 10/03/17 21:15 (Dulcolax Supp) 10 mg DAILY PRN RECTAL 10/03/17 21:15 10/11/17 17:08 (Lactulose Liq) 30 ml DAILY PRN PO 10/03/17 21:15 10/11/17 17:08 (Flovent Hfa 44 Mcg Inh) 2 puff BID INH 10/04/17 09:00 11/24/17 09:00 (Peridex 0.12% Liq) 15 ml BID@08,20 MT 10/04/17 20:00 11/21/17 08:25 Sodium Chloride 1,000 ml @ 0 mls/hr Q0M PRN OTHER 10/08/17 10:33 11/15/17 14:56 (Heparin Inj) 8,000 units UNSCH PRN IV FLUSH 10/08/17 10:45 Sodium Chloride 1,000 ml @ 200 mls/hr Q5H PRN IV 10/08/17 11:15 11/08/17 09:57 Sodium Chloride 1,000 ml @ 0 mls/hr Q0M PRN OTHER 10/08/17 11:15 (Mannitol Inj) 12.5 gm UNSCH PRN IV 10/08/17 11:15 11/13/17 11:06 Albumin Human 100 ml @ 60 mls/hr UNSCH PRN IV 10/08/17 11:30 11/13/17 11:05 (NS Flush) 5 ml UNSCH PRN IV FLUSH 10/08/17 11:15 11/15/17 14:56 (Heparin Inj) UNSCH PRN .XX 10/08/17 11:15 11/15/17 14:57 (Gentamicin Inj) 20 mg UNSCH PRN OTHER 10/08/17 11:15 11/15/17 14:57 (Zofran Inj) 4 mg UNSCH PRN IV PUSH 10/08/17 11:15 11/15/17 15:48 (Nitrostat Sl) 0.4 mg UNSCH PRN SL 10/08/17 11:30 (Catapres) 0.1 mg UNSCH PRN PO 10/08/17 11:30 (Epogen Inj) 10,000 units UNSCH PRN IV PUSH 10/08/17 11:30 11/15/17 14:57 (Gelfoam 12 Mm/7 Mm Top) 1 foam UNSCH PRN TOP 10/08/17 11:30 (Lactinex) 1 tab TID PO 10/17/17 13:00 11/24/17 09:54 (Duragesic 100 Mcg Patch.72 Hr) 1 patch Q3D T-DERMAL 10/18/17 12:00 11/08/17 13:18 Miscellaneous Information 1 Q3D T-DERMAL 10/21/17 12:00 11/14/17 12:00 (Albuterol Neb) 2.5 mg Q2HR NEB PRN NEB 10/21/17 13:30 11/24/17 06:23 (Protonix) 40 mg Q12HR PO 10/21/17 21:00 11/24/17 09:54 (Heparin Inj) 5,000 units Q12HR SQ 10/21/17 21:00 11/24/17 09:54 (Phoslo) 667 mg TID PO 10/23/17 13:00 11/24/17 09:54 (Haldol Inj) 5 mg Q4H PRN IV PUSH 10/23/17 23:30 10/26/17 23:39 (Sodium Chloride) 1 gm DAILY PO 10/26/17 09:00 11/24/17 09:52 (Ferrous Sulfate) 325 mg BID@, PO 10/27/17 12:00 11/23/17 17:43 (Roxicodone) 5 mg Q6H PRN PO 10/30/17 20:00 11/24/17 09:53 (Zanaflex) 2 mg Q8HR PO 10/30/17 22:00 11/24/17 05:52 (Atarax) 50 mg Q8H PRN PO 10/31/17 17:15 11/18/17 22:32 (Cymbalta Dr) 60 mg DAILY PO 11/03/17 12:00 11/24/17 09:54 (Neurontin) 300 mg Q24H PO 11/06/17 13:00 11/23/17 14:28 (Narcan Inj) 0.4 mg Q2M PRN IV PUSH 11/08/17 20:15 11/08/17 20:16 (Santyl Oint) 1 applic DAILY TOPICAL 11/11/17 09:00 11/24/17 09:00 (Dakin'S 0.125% Soln) 500 ml DAILY TOPICAL 11/11/17 09:00 11/24/17 09:00 (Proamatine) 10 mg TID@,, PO 11/11/17 12:00 11/24/17 05:52 (Lopressor) 12.5 mg BID PO 11/11/17 21:00 11/24/17 09:53 (Pill Splitter) 1 ea UNSCH PRN OTHER 11/11/17 19:00 (Tylenol) 500 mg Q6HR PRN PO 11/20/17 02:45 (Morphine Inj) 1 mg DAILY PRN IV PUSH 11/21/17 13:30 11/24/17 10:11 Lines Line sites with no e.o infection Past Medical History Asthma HCV Past Surgical History No surgical history per records. Allergies: Coded Allergies: erythromycin base (Verified Allergy, Severe, Nausea/Vomiting, 10/03/17) raspberry (Unverified Allergy, Mild, 10/03/17) Objective . Vital Signs Date Time Temp Pulse Resp B/P (MAP) Pulse Ox O2 Delivery O2 Flow Rate FiO2 11/24/17 10:01 95 Nasal Cannula 3.00 11/24/17 08:00 97.4 101 20 107/78 (88) 95 11/24/17 06:23 96 Nasal Cannula 3.00 11/24/17 04:20 18 11/24/17 04:01 100 11/24/17 04:00 98.6 111 19 105/73 (84) 100 11/24/17 00:00 119 11/24/17 00:00 98.7 112 19 110/72 (85) 100 11/23/17 22:15 Nasal Cannula 3.00 11/23/17 20:00 98.1 116 19 109/70 (83) 100 11/23/17 20:00 118 11/23/17 20:00 118 11/23/17 16:23 116 11/23/17 16:00 Nasal Cannula 3.00 11/23/17 16:00 97.9 99 18 124/64 (84) 99 11/23/17 15:15 97 Nasal Cannula 3.00 11/24/17 11/24/17 11/25/17 15:00 23:00 07:00 Output Total 600 ml Balance -600 ml Output Urine Total 600 ml . Laboratory Tests Test 11/23/17 07:00 11/24/17 06:45 Blood Urea Nitrogen 39 MG/DL 34 MG/DL Creatinine 2.11 MG/DL 1.85 MG/DL Random Glucose 82 MG/DL 78 MG/DL Calcium Level 7.7 MG/DL 7.8 MG/DL Magnesium Level 1.2 MG/DL 1.5 MG/DL Sodium Level 133 MEQ/L 134 MEQ/L Potassium Level 3.5 MEQ/L 3.6 MEQ/L Chloride Level 93 MEQ/L 94 MEQ/L Carbon Dioxide Level 29.9 MEQ/L 31.5 MEQ/L Anion Gap 10 MEQ/L 9 MEQ/L Estimat Glomerular Filtration Rate 38 ML/MIN 44 ML/MIN Imaging Chest X-Ray 10/30/17 0000 Signed Impressions: Service Date/Time: October 17:04 - CONCLUSION: Increasing bilateral scattered pulmonary infiltrates compared to the prior study. Victorino Vang MD Liver Ultrasound 10/24/17 0000 Signed Impressions: Service Date/Time: Tuesday, October 24, 2017 16:43 - CONCLUSION: Hepatosplenomegaly with ascites. Echogenic kidney Madi Mccartney MD Abdomen/Pelvis CT 10/24/17 0000 Signed Impressions: Service Date/Time: Tuesday, October 24, 2017 21:37 - CONCLUSION: 1. Hepatosplenomegaly. 2. Moderate amount of ascites. 3. Diffuse anasarca. 4. Bibasilar pleural effusions and scattered infiltrates. Khoi Padilla MD Tunnelled Chest Tube Removal 10/20/17 0000 Signed Impressions: Service Date/Time: Friday, October 20, 2017 00:00 - CONCLUSION: Uncomplicated chest tube removal. Madi Mccartney MD Chest CT 10/14/17 0000 Signed Impressions: Service Date/Time: Saturday, October 14, 2017 00:26 - CONCLUSION: 1. Bilateral scattered pulmonary nodules are again noted. Several of the right nodules are now cavitary and likely represent septic emboli given the history of IV drug abuse. 2. Interval placement of bilateral chest tubes with small pleural effusions noted. 3. Dense consolidation remains in the posterior lower lobes. Jorge Jang MD Upper Extremity Ultrasound 10/13/17 0000 Signed Impressions: Service Date/Time: Friday, October 13, 2017 11:25 - CONCLUSION: Normal examination. Christian Kaur MD Abdomen X-Ray 10/10/17 0000 Signed Impressions: Service Date/Time: Tuesday, October 10, 2017 16:46 - CONCLUSION: Negative for free air or obstruction. Rahul Yarbrough MD FACR Chest Tube Insertion 10/06/17 0000 Signed Impressions: Service Date/Time: Friday, October 06, 2017 15:37 - CONCLUSION: Uncomplicated chest tube placement as above. Emerson Hui MD Physical Exam GENERAL: WDWN male, INAD. Awake and alert. SKIN: No generalized rash. Cool and dry. Multiple tattoos. HEAD: Atraumatic. Normocephalic. EYES: Pupils equal round and reactive. Extraocular motions intact. No petechia, no hemorrhage ENT: Moist oral mucosa, no nasal drainage NECK: Trachea midline. Supple, nontender, no meningeal signs. CARDIOVASCULAR: Has systolic murmur RESPIRATORY: Decreased air entry bilaterally bases. GASTROINTESTINAL: Abdomen soft, not tender, distended (+) BS. MUSCULOSKELETAL: Extremities without clubbing, cyanosis. (+) bilateral pedal edema, improved. No embolic lesion seen. NEUROLOGICAL: Awake and alert, follows commands Psych cooperative IV line sites with no e.o infection. Assessment & Plan Remarks Severe Sepsis present on admission resolved. MSSA endocarditis. - TV and Pulmonic valve endocarditis. s/p completion of treatment today. Moderate to severe TR. MR. Surgery per CTS. Ascites: likely from 3rd spacing. Bilateral pleural effusions: left side appears loculated possible empyema. IVDA: heroin, cocaine and methamphetamine. Acute renal failure: appears improving. Off HD. Low platelets: ? meds, sepsis. HIT. Ascites: 3rd spacing from valve regurg etc Recs: DC Ancef IV (for MSSA TV endocarditis) Follow clinically off antibiotics. Ok to DC home from ID standpoint once cleared by other consultants. Will sign off please call back if any change in clinical condition or questions. Lakia Macias MD Nov 24, 2017 13:29
[2017-11-24] MEDS: GABAPENTIN 100 MG CAP PO SCH (14:04)
[2017-11-24] MEDS: FERROUS SULFATE 325 MG (65 MG ELEMENTAL IRON) TAB PO SCH ×2 (14:04→18:36)
--- NOTE | 2017-11-24 15:04 | HHI.NPPN ---
Subjective Complaints: Shortness of Breath Renal Failure: Acute History of Present Illness Patient is 27-year-old male who reported to ER with body aches, 7 days of diarrhea with development fever. Past medical history of IV drug use. Patient is sedated and ventilated FiO2 at 40 %. Nephrology is consulted for ZEUS and fluid over load status. Patients creatinine is 3.02 and GFR 25ml/min. Patient is UOP at 800cc for last 24 hours. Weight has increased by over 10 kg since admission. IVF's have been stopped and lasix has been given. Patient has endocarditis with large tricuspid valve vegetation, and pulmonic vegetation. Noted to have bacteremia with hypotension with SBP in the 90's. Additional Remarks Patient is resting comfortable. Less nausea today. (Venus Barrett) Review of Systems Cardiovascular Cardiac Remarks denies CP (Venus Barrett) Gastrointestinal GI Remarks No abdominal pain (Venus Barrett) Psych Psych: Depression, Anxiety (Venus Barrett) Objective Data Data 11/24/17 11/25/17 19:00 07:00 Output Total 600 ml Balance -600 ml Output Urine Total 600 ml Vital Signs Date Time Temp Pulse Resp B/P (MAP) Pulse Ox O2 Delivery O2 Flow Rate FiO2 11/24/17 12:00 97.8 106 20 129/85 (100) 100 11/24/17 10:01 95 Nasal Cannula 3.00 11/24/17 08:00 97.4 101 20 107/78 (88) 95 11/24/17 06:23 96 Nasal Cannula 3.00 11/24/17 04:20 18 11/24/17 04:01 100 11/24/17 04:00 98.6 111 19 105/73 (84) 100 11/24/17 00:00 119 11/24/17 00:00 98.7 112 19 110/72 (85) 100 11/23/17 22:15 Nasal Cannula 3.00 11/23/17 20:00 98.1 116 19 109/70 (83) 100 11/23/17 20:00 118 11/23/17 20:00 118 11/23/17 16:23 116 11/23/17 16:00 Nasal Cannula 3.00 11/23/17 16:00 97.9 99 18 124/64 (84) 99 11/23/17 15:15 97 Nasal Cannula 3.00 (Venus Barrett) -: 11/20/17 0909 11/24/17 0645 Physical Exam General Appearance: Well Developed, No Acute Distress, Comfortable (Venus Barrtet) Eyes Eye Exam: Pupils Equal (Venus Barrett) Pulmonary Resp Exam: Breath Sounds Equal, Crackles, Decreased Bases, Diminished Breath Sounds (Venus Barrett) Cardiology CV Exam: Regular, Murmur (Venus Barrett) Gastrointestinal/Abdomen GI Exam: Soft, Non-Tender, Bowel Sounds Present, Distended (Venus Barrett) Integumentary Skin Exam: Clear, Warm (Venus Barrett) Extremeties Extremities Exam: No Edema (Venus Barrett) Neurologic Neuro Exam: Awake (Venus Barrett) Psychiatric Psych Exam: Appropriate Responses (Venus Barrett) Assessment/Plan Assessment Summary: ZEUS/Acute Renal Failure Electrolyte Assessment: Hyponatremia Problem List: (1) ZEUS (acute kidney injury) ICD Codes: N17.9 - Acute kidney failure, unspecified Plan: ZEUS most likely ATN from sepsis and low blood pressure. Other differential will be ATN, Acute interstitial nephritis, and Post infectious GN,unlikely. HD started on 10/08 and last HD on 11/15 Plan Continue to monitor UOP, BMP, and monitor renal recovery. Creatinine improving daily creatinine at 1.84 today and good UOP HD on hold for now last HD 11/15. Cleared for discharge from nephrology standpoint (2) Sepsis ICD Codes: A41.9 - Sepsis, unspecified organism Status: Acute Plan: Resolved (3) Endocarditis ICD Codes: I38 - Endocarditis, valve unspecified Status: Acute Plan: Completed (Venus Barrett) Problem List: (1) ZEUS (acute kidney injury) ICD Codes: N17.9 - Acute kidney failure, unspecified Plan: ZEUS most likely ATN from sepsis and low blood pressure. Other differential will be ATN, Acute interstitial nephritis, and Post infectious GN,unlikely. HD started on 10/08 and last HD on 11/15 Plan Continue to monitor UOP, BMP, and monitor renal recovery. Creatinine improving daily creatinine at 1.84 today and good UOP HD on hold for now last HD 11/15. Cleared for discharge from nephrology standpoint. Patient seen and examined, agree with above. Creatinine continue to improve. (2) Sepsis ICD Codes: A41.9 - Sepsis, unspecified organism Status: Acute Plan: Resolved (3) Endocarditis ICD Codes: I38 - Endocarditis, valve unspecified Status: Acute Plan: Completed (Darek Tapia MD) Problem Qualifiers (1) Sepsis: Qualified Codes: A41.9 - Sepsis, unspecified organism (2) Endocarditis: Venus Barrett Nov 24, 2017 15:03 Darek Tapia MD Nov 24, 2017 18:07
[2017-11-25] VITALS (10 sets, daily range): BP systolic 108–138; BP diastolic 61–76; PULSE 103–126; RESP 18–21; TEMP 97.9–99.4; O2SAT 96–100
[2017-11-25] MEDS: MIDODRINE 5 MG TAB PO SCH ×3 (06:11→17:30)
[2017-11-25] MEDS: CHLORHEXIDINE 0.12% (ORAL KIT) 15 ML CUP MT SCH (08:00)
[2017-11-25] MEDS: METOPROLOL TARTRATE 25 MG TAB PO SCH (08:48)
[2017-11-25] MEDS: PANTOPRAZOLE SOD 40 MG DELAYED RELEASE TAB PO SCH (08:48)
[2017-11-25] MEDS: SODIUM CHLORIDE 1 GRAM TAB PO SCH (08:48)
[2017-11-25] MEDS: LACTOBACILLUS ACIDOPHILUS TAB PO SCH ×2 (08:48→12:08)
[2017-11-25] MEDS: CALCIUM ACETATE 667 MG CAP PO SCH ×2 (08:49→12:08)
[2017-11-25] MEDS: DULoxetine HCl DR 60 MG CAP PO SCH (08:49)
[2017-11-25] MEDS: DOCUSATE SODIUM 50 MG/SENNA 8.6 MG TAB PO SCH (08:50)
[2017-11-25] MEDS: HEPARIN SODIUM - SQ 10,000 UNITS/ML VIAL SQ SCH (08:50)
[2017-11-25] MEDS: COLLAGENASE OINT 30 GM TUBE TOPICAL SCH (08:51)
[2017-11-25] MEDS: SODIUM HYPOCHLORITE 0.125% 500 ML BTL TOPICAL SCH (08:51)
[2017-11-25] MEDS: SODIUM CHLORIDE 0.9% FLUSH 10 ML FLUSH IV FLUSH SCH (08:51)
[2017-11-25] MEDS: FLUTICASONE PROPIONATE 44 MCG/ACT 10.6 GM INHALER INH SCH (08:52)
--- NOTE | 2017-11-25 09:13 | HHI.DCPOC ---
Discharge Care Plan Diagnosis: (1) Endocarditis Your Health Problems Are: Difficulty with ADL Exercise Tolerance Goals to Promote Your Health * To prevent worsening of your condition and complications * To maintain your health at the optimal level Directions to Meet Your Goals Take your medications as prescribed Follow your dietary instruction Follow activity as directed Keep your appointments as scheduled Take your immunizations and boosters as scheduled If your symptoms worsen call your PCP, if no PCP go to Urgent Care Center or Emergency Room Smoking is Dangerous to Your Health. Avoid second hand smoke Call the 24-hour hour crisis hotline for domestic abuse at Rashad Langston MD Nov 25, 2017 09:13
--- NOTE | 2017-11-25 09:15 | HHI.FF ---
Face to Face Verification Diagnosis: (1) Endocarditis Occupational Therapy Order: Evaluate and Treat, Improve ADL, Gross motor coordination, Fine motor coordination I have seen patient Mendoza Gonzales Jr Virgen on 11/25/17. My clinical findings support the need for the requested home health care services because: Patient has SOB Deconditioned w/ increased weakness I certify that my clinical findings support that this patient is homebound because: Unsafe to leave home unassisted Rashad Langston MD Nov 25, 2017 09:15
--- NOTE | 2017-11-25 09:15 | HHI.FF ---
Face to Face Verification Diagnosis: (1) Endocarditis Physical Therapy Order: Evaluate and Treat, Improve ambulation, Strength and gait training Home Health Nursing Order: Medical education Signs/symptoms of disease process Oxygen administration education Medication education-adverse effect Wound care and dressing changes Nursing assessment with vital signs I have seen patient Mendoza Gonzales Jr Virgen on 11/25/17. My clinical findings support the need for the requested home health care services because: Ltd mobility - disease progression I certify that my clinical findings support that this patient is homebound because: Unsafe to leave home unassisted Rashad Langston MD Nov 25, 2017 09:15
[2017-11-25] MEDS ORDERED: OXYC-392 PO (09:22)
[2017-11-25] MEDS ORDERED: LACT PO (09:22)
[2017-11-25] MEDS ORDERED: METO25TA3 PO (09:22)
[2017-11-25] MEDS ORDERED: PANT40TA3 PO (09:22)
[2017-11-25] MEDS ORDERED: DULO1CAP3 PO (09:22)
[2017-11-25] MEDS ORDERED: MIDO5TAB PO (09:22)
[2017-11-25] MEDS ORDERED: CALC667C PO (09:22)
[2017-11-25] MEDS ORDERED: OXYGENDME NAS.CANULA (09:22)
[2017-11-25] MEDS ORDERED: FERR325T20 PO (09:22)
[2017-11-25] MEDS ORDERED: GABA100C4 PO (09:22)
[2017-11-25] MEDS ORDERED: DAKI0.12 TOPICAL (09:22)
[2017-11-25] MEDS ORDERED: COLL30T TOPICAL (09:22)
[2017-11-25] MEDS: RESP: ALBUTEROL 2.5 MG/3 ML NEB (PRN) NEB (09:46)
--- NOTE | 2017-11-25 10:43 | HHI.NPPN ---
Subjective Complaints: Shortness of Breath Renal Failure: Acute History of Present Illness Patient is 27-year-old male who reported to ER with body aches, 7 days of diarrhea with development fever. Past medical history of IV drug use. Patient is sedated and ventilated FiO2 at 40 %. Nephrology is consulted for ZEUS and fluid over load status. Patients creatinine is 3.02 and GFR 25ml/min. Patient is UOP at 800cc for last 24 hours. Weight has increased by over 10 kg since admission. IVF's have been stopped and lasix has been given. Patient has endocarditis with large tricuspid valve vegetation, and pulmonic vegetation. Noted to have bacteremia with hypotension with SBP in the 90's. Additional Remarks Patient is resting comfortable. Vomited this morning. No edema. (Venus Barrett) Review of Systems Cardiovascular Cardiac Remarks denies CP (Venus Barrett) Gastrointestinal GI Remarks No abdominal pain (Venus Barrett) Psych Psych: Depression, Anxiety (Venus Barrett) Objective Data Data Vital Signs Date Time Temp Pulse Resp B/P (MAP) Pulse Ox O2 Delivery O2 Flow Rate FiO2 11/25/17 09:50 100 Nasal Cannula 3.00 11/25/17 08:00 97.9 113 20 117/61 (79) 96 11/25/17 08:00 103 11/25/17 05:49 16 11/25/17 04:00 98.4 116 18 110/73 (85) 100 11/25/17 03:54 126 11/25/17 00:25 119 11/25/17 00:00 99.4 110 21 111/64 (80) 96 11/24/17 22:35 97 Nasal Cannula 3.00 11/24/17 21:40 Nasal Cannula 3.00 30 11/24/17 20:00 115 11/24/17 20:00 97.8 117 21 108/81 (90) 98 11/24/17 16:00 98.2 125 20 117/61 (79) 99 11/24/17 16:00 116 11/24/17 12:00 116 11/24/17 12:00 97.8 106 20 129/85 (100) 100 (Venus Barrett) -: 11/24/17 0645 Physical Exam General Appearance: Well Developed, No Acute Distress, Comfortable (Venus Barrett. 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) Eyes Eye Exam: Pupils Equal (Venus Barrett 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) Pulmonary Resp Exam: Breath Sounds Equal, Crackles, Decreased Bases, Diminished Breath Sounds (Venus Barrett 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) Cardiology CV Exam: Regular, Murmur (Venus BarrettP) Gastrointestinal/Abdomen GI Exam: Soft, Non-Tender, Bowel Sounds Present, Distended (Venus Barrett 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) Integumentary Skin Exam: Clear, Warm (Venus BarrettP) Extremeties Extremities Exam: No Edema (Venus BarrettP) Neurologic Neuro Exam: Awake (Venus BarrettP) Psychiatric Psych Exam: Appropriate Responses (Venus Barrett) Assessment/Plan Assessment Summary: ZEUS/Acute Renal Failure Electrolyte Assessment: Hyponatremia Problem List: (1) ZEUS (acute kidney injury) ICD Codes: N17.9 - Acute kidney failure, unspecified Plan: ZEUS most likely ATN from sepsis and low blood pressure. Other differential will be ATN, Acute interstitial nephritis, and Post infectious GN,unlikely. HD started on 10/08 and last HD on 11/15 Plan Continue to monitor UOP, BMP, and monitor renal recovery. Creatinine improving daily creatinine and continues to have good UOP HD on hold for now last HD 11/15. Cleared for discharge from nephrology standpoint. (2) Sepsis ICD Codes: A41.9 - Sepsis, unspecified organism Status: Acute Plan: Resolved (3) Endocarditis ICD Codes: I38 - Endocarditis, valve unspecified Status: Acute Plan: Completed (Venus Barrett) Problem List: (1) ZEUS (acute kidney injury) ICD Codes: N17.9 - Acute kidney failure, unspecified Plan: ZEUS most likely ATN from sepsis and low blood pressure. Other differential will be ATN, Acute interstitial nephritis, and Post infectious GN,unlikely. HD started on 10/08 and last HD on 11/15 Plan Continue to monitor UOP, BMP, and monitor renal recovery. Creatinine improving daily creatinine and continues to have good UOP HD on hold for now last HD 11/15. Cleared for discharge from nephrology standpoint. Patient seen and examined, agree with above. For discharge , to follow as out patient. (2) Sepsis ICD Codes: A41.9 - Sepsis, unspecified organism Status: Acute Plan: Resolved (3) Endocarditis ICD Codes: I38 - Endocarditis, valve unspecified Status: Acute Plan: Completed (Darek Tapia MD) Problem Qualifiers (1) Sepsis: Qualified Codes: A41.9 - Sepsis, unspecified organism (2) Endocarditis: Venus Barrett Nov 25, 2017 10:43 Darek Tapia MD Nov 25, 2017 18:47
--- NOTE | 2017-11-25 10:54 | HHI.PR ---
Subjective Remarks Follow-up endocarditis. Patient doing okay he is eager to go home. Denies shortness of breath still on nasal cannula. Reports his abdominal swelling is improving denies pain. He is stooling. No UTI symptoms. Case discussed with mother, nursing staff and rifle case repairer Objective Vitals Vital Signs Date Time Temp Pulse Resp B/P (MAP) Pulse Ox O2 Delivery O2 Flow Rate FiO2 11/25/17 09:50 100 Nasal Cannula 3.00 11/25/17 08:00 97.9 113 20 117/61 (79) 96 11/25/17 08:00 103 11/25/17 05:49 16 11/25/17 04:00 98.4 116 18 110/73 (85) 100 11/25/17 03:54 126 11/25/17 00:25 119 11/25/17 00:00 99.4 110 21 111/64 (80) 96 11/24/17 22:35 97 Nasal Cannula 3.00 11/24/17 21:40 Nasal Cannula 3.00 30 11/24/17 20:00 115 11/24/17 20:00 97.8 117 21 108/81 (90) 98 11/24/17 16:00 98.2 125 20 117/61 (79) 99 11/24/17 16:00 116 11/24/17 12:00 116 11/24/17 12:00 97.8 106 20 129/85 (100) 100 I/O 11/24/17 11/24/17 11/24/17 11/25/17 11/25/17 11/25/17 07:00 15:00 23:00 07:00 15:00 23:00 Intake Total 580 ml 720 ml 480 ml Output Total 1350 ml 200 ml 500 ml Balance 580 ml -630 ml -200 ml -20 ml Intake Oral 480 ml 720 ml 480 ml IV Total 100 ml Output Urine Total 1350 ml 200 ml 500 ml # Voids 3 0 # Bowel Movements 2 1 0 Result Diagram: 11/24/17 0645 Imaging Last Impressions Chest X-Ray 11/17/17 0000 Signed Impressions: Service Date/Time: Friday, November 17, 2017 13:05 - CONCLUSION: 1. Pleural thickening and/or fluid remains along the right lateral chest wall. 2. Cardiomegaly and apparent mild pulmonary edema again noted. 3. Interval removal of central venous line. 1. Jorge Jang MD Cyst Biopsy Asp-Paracentesis US 11/10/17 0000 Signed Impressions: Service Date/Time: Friday, November 10, 2017 10:52 - CONCLUSION: Uncomplicated ultrasound guided paracentesis. Madi Mccartney MD Abdomen Ultrasound 11/07/17 0000 Signed Impressions: Service Date/Time: Tuesday, November 07, 2017 11:36 - CONCLUSION: Moderate amount of ascites confirmed for subsequent paracentesis but the patient refused the procedure and therefore was sent back to the floor. Khoi Padilla MD Chest CT 11/03/17 0000 Signed Impressions: Service Date/Time: Friday, November 03, 2017 10:16 - CONCLUSION: Scattered areas of consolidation and scattered nodular foci identified, a overall improved from the previous study however the consolidation in the right middle lobe is increased and is a change from previous studies. Chadwick Diaz MD Liver Ultrasound 10/24/17 0000 Signed Impressions: Service Date/Time: Tuesday, October 24, 2017 16:43 - CONCLUSION: Hepatosplenomegaly with ascites. Echogenic kidney Madi Mccartney MD Abdomen/Pelvis CT 10/24/17 0000 Signed Impressions: Service Date/Time: Tuesday, October 24, 2017 21:37 - CONCLUSION: 1. Hepatosplenomegaly. 2. Moderate amount of ascites. 3. Diffuse anasarca. 4. Bibasilar pleural effusions and scattered infiltrates. Khoi Padilla MD Tunnelled Chest Tube Removal 10/20/17 0000 Signed Impressions: Service Date/Time: Friday, October 20, 2017 00:00 - CONCLUSION: Uncomplicated chest tube removal. Madi Mccartney MD Upper Extremity Ultrasound 10/13/17 0000 Signed Impressions: Service Date/Time: Friday, October 13, 2017 11:25 - CONCLUSION: Normal examination. Christian Kaur MD Abdomen X-Ray 10/10/17 0000 Signed Impressions: Service Date/Time: Tuesday, October 10, 2017 16:46 - CONCLUSION: Negative for free air or obstruction. Rahul Yarbrough MD FACR Chest Tube Insertion 10/06/17 0000 Signed Impressions: Service Date/Time: Friday, October 06, 2017 15:37 - CONCLUSION: Uncomplicated chest tube placement as above. Emerson Hui MD Objective Remarks AAOx3 nad S1S2 RRR, soft 2/6 systolic murmur Abdomen soft, nt, improving abdominal distention Clear lungs BL Improved bilateral lower extremity pitting edema Stage IV sacral pressure ulcer Procedures CT-guided chest tube placement on left chest. Date 10/06/17. Paracentesis central line CARMEN A/P Problem List: (1) Endocarditis ICD Code: I38 - Endocarditis, valve unspecified Status: Acute (2) MSSA bacteremia ICD Code: R78.81 - Bacteremia (3) Tricuspid valve vegetation ICD Code: I33.0 - Acute and subacute infective endocarditis (4) IV drug abuse ICD Code: F19.10 - Other psychoactive substance abuse, uncomplicated (5) Pleural effusion, bilateral ICD Code: J90 - Pleural effusion, not elsewhere classified (6) Septic embolism ICD Code: I26.90 - Septic pulmonary embolism without acute cor pulmonale Status: Acute (7) Hepatitis C ICD Code: B19.20 - Unspecified viral hepatitis C without hepatic coma (8) Hepatosplenomegaly ICD Code: R16.2 - Hepatomegaly with splenomegaly, not elsewhere classified (9) Sacral decubitus ulcer, stage IV ICD Code: L89.154 - Pressure ulcer of sacral region, stage 4 Status: Acute (10) Anasarca ICD Code: R60.1 - Generalized edema (11) Acute systolic heart failure ICD Code: I50.21 - Acute systolic (congestive) heart failure (12) Moderate protein-calorie malnutrition ICD Code: E44.0 - Moderate protein-calorie malnutrition Status: Acute (13) Hyponatremia ICD Code: E87.1 - Hypo-osmolality and hyponatremia Status: Acute (14) ZEUS (acute kidney injury) ICD Code: N17.9 - Acute kidney failure, unspecified (15) Anemia ICD Code: D64.9 - Anemia, unspecified (16) Debility ICD Code: R53.81 - Other malaise Status: Acute (17) Transaminitis ICD Code: R74.0 - Nonspecific elevation of levels of transaminase and lactic acid dehydrogenase [LDH] Status: Resolved (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 Repeat bedside echocardiogram on 10/18 showed a similar size vegetation. Cardiology and CT surgery ff. D/W Dr. Charles declined surgery due to active IV drug use, multiple medical complications. Discussed with [facility] who agreed with plan of our cardiothoracic surgeon. [facility] administration has denied the patient as well per CM. Status post IV cefazolin per infectious disease Outpatient follow-up with [facility] (2) MSSA bacteremia Last blood cultures on 10/18 negative 5. Status post IV antibiotic (3) Tricuspid valve vegetation Plan: Cardiology consulted and following. Dr Charles declined performing surgery on patient. (4) IV drug abuse Plan: The patient states he has not used drugs in 3 months. Advised and reinforced drug cessation. (5) Pleural effusion, bilateral Plan: Likely secondary to fluid overload and acute systolic heart failure. The patient is being dialyzed s/p thoracentesis. (6) Septic embolism Plan: Secondary to tricuspid valve endocarditis. 11/12 previously on 4 L nasal cannula, respiratory status improving with patient on 2 L nasal cannula. Wean and DC nasal cannula. He failed oxygen walk test (7) Hepatitis C Plan: Hepatitis C antibody reactive. Hepatitis C viral load 57807. Hepatitis C genotype 1A. Hepatitic ultrasound revealed hepatosplenomegaly. We will refer to GI as an outpatient for treatment. (8) Hepatosplenomegaly Plan: As seen on CT of the abdomen and pelvis with moderate amount of ascites and diffuse anasarca status post diuresis. (9) Sacral decubitus ulcer, stage IV Plan: wound care consulted - fu recommendations. Mother has been educated on wound care Consulted plastic surgery, patient refused examination since he does not want surgical intervention. Continue wound care. (10) Anasarca Plan: As evidenced by bilateral pleural effusions, ascites and anasarca described on CT abdomen and pelvis. Patient being dialyzed. SP abdominal paracentesis on 11/10. Ascitic fluid non infectious. Will monitor off diuresis. Improving (11) Acute systolic heart failure Plan: Echo with EF of 35-40%. Treat fluid overload with dialysis. Continue beta-ashutosh. Unable to start FLETCHER inhibitor secondary to ZEUS (12) Moderate protein-calorie malnutrition Plan: Dietitian consulted, recommends liberalize diet to allow more fluid options and hopefully increase p.o. intake. Nepro twice daily with encouragement. (13) Hyponatremia Plan: On fluid restriction - continue. Sodium stable at 131. (14) ZEUS (acute kidney injury) Plan: Most likely due to ATN from sepsis and low blood pressure. HD started on 10/08. Continue dialysis as per nephrology. Dialysis on Friday/ and Friday schedule currently on hold last hemodialysis November 15. Creatinine improving. Avoid nephrotoxins, continue to monitor BUN and creatinine. (15) Anemia Plan: On ferrous sulfate and Epogen as per nephrology. Anemia likely secondary to chronic kidney disease. 11/09 hemoglobin dropped from 8.9-7.7. No obvious bleeding. Continue to monitor hemoglobin and hematocrit. Transfuse as needed for hemoglobin less than 7 or symptomatic anemia. Epogen as per nephrology. Hemoglobin stable. (16) Debility Plan: Continue PT and OT. Patient will need to go to rehab upon discharge. (17) Transaminitis Plan: Now resolved. Continue to monitor liver function tests. Transaminitis likely secondary to sepsis and hepatitis C. (18) Chronic pain syndrome Continue gabapentin, duloxetine, tizanidine, oxycodone. Pain seems to be controlled. Will wean narcs when dc date known will f/u with ID stop date of Cefazolin (19) MARTÍN positive Plan: The patient also has a positive MARTÍN with a titer of 1: 40 with a diffuse pattern. This is a low pattern and the patient does not have any other symptoms consistent with rheumatic disease. Will not pursue any further testing. The patient will need to follow-up as an outpatient by his primary care physician. (20) Hypotension Plan: Unclear etiology of hypotension. However the patient is on hemodialysis and is hypoalbuminemic, also patient is on several medications to control pain including fentanyl patch, Roxicodone, gabapentin. All of these factors could be contributing to the patient's hypotension. Upon review of records the patient has been hypotensive for some time now. Patient's hypotension started on 10/31/17 and blood pressure occasionally goes up , however it is usually in the high 80s to low 90s systolic. Start midodrine for blood pressure support. 11/10 BP better but bp still low in the 90's systolic. Increase Midodrine dose to 10 mg po tid. BP still borderline low, continue midodrine. Patient asymptomatic. DVT prophylaxis: SCDs, heparin subcutaneously. Discharge Planning ID and nephrology cleared patient for discharge Problem Qualifiers (1) Endocarditis: (2) Hepatitis C: (3) Anemia: (4) Hypotension: Qualified Codes: I95.9 - Hypotension, unspecified Rashad Langston MD Nov 25, 2017 10:54
[2017-11-25] MEDS: MORPHINE SULFATE 2 MG/ML SYRINGE IV PUSH PRN (11:54)
[2017-11-25] MEDS: FERROUS SULFATE 325 MG (65 MG ELEMENTAL IRON) TAB PO SCH ×2 (11:55→17:30)
[2017-11-25] MEDS: GABAPENTIN 100 MG CAP PO SCH (12:08)
--- NOTE | 2017-11-25 13:40 | HHI.FF ---
Face to Face Verification Diagnosis: (1) Endocarditis Home Health Nursing Order: Signs/symptoms of disease process Oxygen administration education Wound care and dressing changes I have seen patient Mendoza Gonzales Jr Virgen on 11/25/17. My clinical findings support the need for the requested home health care services because: Deconditioned w/ increased weakness I certify that my clinical findings support that this patient is homebound because: Unsafe to leave home unassisted Rashad Langston MD Nov 25, 2017 13:40
[2017-11-25] MEDS ORDERED: WALKER WHEELS/F1 MIS (13:41)
--- NOTE | 2017-11-25 16:26 | HHI.DS ---
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 - Acute and subacute infective endocarditis Diagnosis: Principal (5) IV drug abuse ICD Code: F19.10 - Other psychoactive substance abuse, uncomplicated Diagnosis: Principal (6) Pleural effusion, bilateral ICD Code: J90 - Pleural effusion, not elsewhere classified Diagnosis: Principal (7) Septic embolism ICD Code: I26.90 - Septic pulmonary embolism without acute cor pulmonale Diagnosis: Principal Status: Acute (8) Hepatitis C ICD Code: B19.20 - Unspecified viral hepatitis C without hepatic coma Diagnosis: Principal (9) Hepatosplenomegaly ICD Code: R16.2 - Hepatomegaly with splenomegaly, not elsewhere classified Diagnosis: Principal (10) Sacral decubitus ulcer, stage IV ICD Code: L89.154 - Pressure ulcer of sacral region, stage 4 Diagnosis: Principal Status: Acute (11) Anasarca ICD Code: R60.1 - Generalized edema Diagnosis: Principal (12) Acute systolic heart failure ICD Code: I50.21 - Acute systolic (congestive) heart failure Diagnosis: Principal (13) Moderate protein-calorie malnutrition ICD Code: E44.0 - Moderate protein-calorie malnutrition Diagnosis: Principal Status: Acute (14) Hyponatremia ICD Code: E87.1 - Hypo-osmolality and hyponatremia Diagnosis: Principal Status: Acute (15) ZEUS (acute kidney injury) ICD Code: N17.9 - Acute kidney failure, unspecified Diagnosis: Principal (16) Anemia ICD Code: D64.9 - Anemia, unspecified Diagnosis: Principal (17) Debility ICD Code: R53.81 - Other malaise Diagnosis: Principal Status: Acute (18) Transaminitis ICD Code: R74.0 - Nonspecific elevation of levels of transaminase and lactic acid dehydrogenase [LDH] Diagnosis: Principal Status: Resolved (19) MARTÍN positive ICD Code: R76.8 - Other specified abnormal immunological findings in serum Status: Acute (20) Hypotension ICD Code: I95.9 - Hypotension, unspecified Diagnosis: Principal (21) Insomnia ICD Code: G47.00 - Insomnia, unspecified Diagnosis: Secondary Procedures CT-guided chest tube placement on left chest. Date 10/06/17. Paracentesis central line CARMEN Brief History - From Admission 27-year-old male with remote history of IV drug abuse, states he last used heroin 2 months ago, presents for evaluation of 8 days of body aches, 7 days of diarrhea with development of subjective fever yesterday. Patient denies any nausea or vomiting. He denies any chest pain. States that he is short of breath and feels anxious. This has developed within the last 24 hours. Patient does have a cough with clear sputum. Denies any prior history of endocarditis. Denies any abdominal pain. Does report some left back pain, worse while lying flat. He is well reports generalized weakness. CBC/BMP: 11/24/17 0645 Significant Findings Laboratory Tests Test 11/23/17 07:00 11/24/17 06:45 Blood Urea Nitrogen 39 MG/DL (7-18) 34 MG/DL (7-18) Creatinine 2.11 MG/DL (0.60-1.30) 1.85 MG/DL (0.60-1.30) Calcium Level 7.7 MG/DL (8.5-10.1) 7.8 MG/DL (8.5-10.1) Magnesium Level 1.2 MG/DL (1.5-2.5) Sodium Level 133 MEQ/L (136-145) 134 MEQ/L (136-145) Chloride Level 93 MEQ/L (98-107) 94 MEQ/L (98-107) Estimat Glomerular Filtration Rate 38 ML/MIN (>89) 44 ML/MIN (>89) Imaging Last Impressions Chest X-Ray 11/17/17 0000 Signed Impressions: Service Date/Time: Friday, November 17, 2017 13:05 - CONCLUSION: 1. Pleural thickening and/or fluid remains along the right lateral chest wall. 2. Cardiomegaly and apparent mild pulmonary edema again noted. 3. Interval removal of central venous line. 1. Jorge Jang MD Cyst Biopsy Asp-Paracentesis US 11/10/17 0000 Signed Impressions: Service Date/Time: Friday, November 10, 2017 10:52 - CONCLUSION: Uncomplicated ultrasound guided paracentesis. Madi Mccartney MD Abdomen Ultrasound 11/07/17 0000 Signed Impressions: Service Date/Time: Tuesday, November 07, 2017 11:36 - CONCLUSION: Moderate amount of ascites confirmed for subsequent paracentesis but the patient refused the procedure and therefore was sent back to the floor. Khoi Padilla MD Chest CT 11/03/17 0000 Signed Impressions: Service Date/Time: Friday, November 03, 2017 10:16 - CONCLUSION: Scattered areas of consolidation and scattered nodular foci identified, a overall improved from the previous study however the consolidation in the right middle lobe is increased and is a change from previous studies. Chadwick Diaz MD Liver Ultrasound 10/24/17 0000 Signed Impressions: Service Date/Time: Tuesday, October 24, 2017 16:43 - CONCLUSION: Hepatosplenomegaly with ascites. Echogenic kidney Madi Mccartney MD Abdomen/Pelvis CT 10/24/17 0000 Signed Impressions: Service Date/Time: Tuesday, October 24, 2017 21:37 - CONCLUSION: 1. Hepatosplenomegaly. 2. Moderate amount of ascites. 3. Diffuse anasarca. 4. Bibasilar pleural effusions and scattered infiltrates. Khoi Padilla MD Tunnelled Chest Tube Removal 10/20/17 0000 Signed Impressions: Service Date/Time: Friday, October 20, 2017 00:00 - CONCLUSION: Uncomplicated chest tube removal. Madi Mccartney MD Upper Extremity Ultrasound 10/13/17 0000 Signed Impressions: Service Date/Time: Friday, October 13, 2017 11:25 - CONCLUSION: Normal examination. Christian Kaur MD Abdomen X-Ray 10/10/17 0000 Signed Impressions: Service Date/Time: Tuesday, October 10, 2017 16:46 - CONCLUSION: Negative for free air or obstruction. Rahul Yarbrough MD FACR Chest Tube Insertion 10/06/17 0000 Signed Impressions: Service Date/Time: Friday, October 06, 2017 15:37 - CONCLUSION: Uncomplicated chest tube placement as above. Emerson Hui MD PE at Discharge AAOx3 nad S1S2 RRR, soft 2/6 systolic murmur Abdomen soft, nt, improving abdominal distention Clear lungs BL Improved bilateral lower extremity pitting edema Stage IV sacral pressure ulcer Hospital Course 1) Endocarditis 2D echocardiogram showed a large tricuspid valve vegetation. Repeat bedside echocardiogram on 10/18 showed a similar size vegetation. Cardiology and CT surgery ff. D/W Dr. Charles declined surgery due to active IV drug use, multiple medical complications. Discussed with [facility] who agreed with plan of our cardiothoracic surgeon. [facility] [address] administration has denied the patient as well per CM. Status post IV cefazolin per infectious disease Outpatient follow-up with CTS (2) MSSA bacteremia Last blood cultures on 10/18 negative 5. Status post IV antibiotic (3) Tricuspid valve vegetation Plan: Cardiology consulted and following. Dr Charles declined performing surgery on patient. (4) IV drug abuse Plan: The patient states he has not used drugs in 3 months. Advised and reinforced drug cessation. (5) Pleural effusion, bilateral Plan: Likely secondary to fluid overload and acute systolic heart failure. The patient is being dialyzed s/p thoracentesis. (6) Septic embolism Plan: Secondary to tricuspid valve endocarditis. 11/12 previously on 4 L nasal cannula, respiratory status improving with patient on 2 L nasal cannula. Wean and DC nasal cannula. He failed oxygen walk test (7) Hepatitis C Plan: Hepatitis C antibody reactive. Hepatitis C viral load [id number]. Hepatitis C genotype 1A. Hepatitic ultrasound revealed hepatosplenomegaly. We will refer to GI as an outpatient for treatment. (8) Hepatosplenomegaly Plan: As seen on CT of the abdomen and pelvis with moderate amount of ascites and diffuse anasarca status post diuresis. (9) Sacral decubitus ulcer, stage IV Plan: wound care consulted - fu recommendations. Mother has been educated on wound care Consulted plastic surgery, patient refused examination since he does not want surgical intervention. Continue wound care. (10) Anasarca Plan: As evidenced by bilateral pleural effusions, ascites and anasarca described on CT abdomen and pelvis. Patient being dialyzed. SP abdominal paracentesis on 11/10. Ascitic fluid non infectious. Will monitor off diuresis. Improving (11) Acute systolic heart failure Plan: Echo with EF of 35-40%. Treat fluid overload with dialysis. Continue beta-ashutosh. Unable to start FLETCHER inhibitor secondary to ZEUS (12) Moderate protein-calorie malnutrition Plan: Dietitian consulted, recommends liberalize diet to allow more fluid options and hopefully increase p.o. intake. Nepro twice daily with encouragement. (13) Hyponatremia Plan: On fluid restriction - continue. Sodium stable at 131. (14) ZEUS (acute kidney injury) Plan: Most likely due to ATN from sepsis and low blood pressure. HD started on 10/08. Continue dialysis as per nephrology. Dialysis on Friday/ and Friday schedule currently on hold last hemodialysis November 15. Creatinine improving. Avoid nephrotoxins, continue to monitor BUN and creatinine. (15) Anemia Plan: On ferrous sulfate and Epogen as per nephrology. Anemia likely secondary to chronic kidney disease. 11/09 hemoglobin dropped from 8.9-7.7. No obvious bleeding. Continue to monitor hemoglobin and hematocrit. Transfuse as needed for hemoglobin less than 7 or symptomatic anemia. Epogen as per nephrology. Hemoglobin stable. (16) Debility Plan: Continue PT and OT. Patient will need to go to rehab upon discharge. (17) Transaminitis Plan: Now resolved. Continue to monitor liver function tests. Transaminitis likely secondary to sepsis and hepatitis C. (18) Chronic pain syndrome Continue gabapentin, duloxetine, tizanidine, oxycodone. Pain seems to be controlled. Will wean narcs when dc date known will f/u with ID stop date of Cefazolin (19) MARTÍN positive Plan: The patient also has a positive MARTÍN with a titer of 1: 40 with a diffuse pattern. This is a low pattern and the patient does not have any other symptoms consistent with rheumatic disease. Will not pursue any further testing. The patient will need to follow-up as an outpatient by his primary care physician. (20) Hypotension Plan: Unclear etiology of hypotension. However the patient is on hemodialysis and is hypoalbuminemic, also patient is on several medications to control pain including fentanyl patch, Roxicodone, gabapentin. All of these factors could be contributing to the patient's hypotension. Upon review of records the patient has been hypotensive for some time now. Patient's hypotension started on 10/31/17 and blood pressure occasionally goes up , however it is usually in the high 80s to low 90s systolic. Start midodrine for blood pressure support. 11/10 BP better but bp still low in the 90's systolic. Increase Midodrine dose to 10 mg po tid. BP still borderline low, continue midodrine. Patient asymptomatic. DVT prophylaxis: SCDs, heparin subcutaneously. Pt Condition on Discharge: Stable Discharge Disposition: Disch w/ Home Health Serv Discharge Time: > 30 minutes Discharge Instructions DIET: Follow Instructions for: Heart Healthy Diet Activities you can perform: Regular-No Restrictions Activities to Avoid: Driving Follow up Referrals: Appointment for Follow Up with wound Gastroenterology - 1 Week Nephrology - 1 Week PCP Follow-up - 1 Week PCP Follow-up with No Pcp Wound Care Clinic - 1 Week New Orders: BASIC METABOLIC PROF - 1 Week New Medications: Oxygen (O2) (Oxygen (O2)) Device LITER JENY.CANULA CONTINUOUS for Prevent Hypoxemia, #2 Oxygen Concentrator Portable Gaseous 2 L/min via Nasal Canula Continuous For 99 months Walker with Front Wheels (Walker with Front Wheels) 1 Mis Mis EA .XX DIRECTED, #1 0 Refills Calcium Acetate (Phosphate Bin (Calcium Acetate) 667 Mg Cap 667 MG PO TID for kidneys, #90 CAP Collagenase (Santyl) 250 Unit/Gram Oin 1 APPLIC TOPICAL DAILY for wound, #[address] (Duloxetine DR) 60 Mg Capdr 60 MG PO DAILY for Control Depression, #30 CAP Ferrous Sulfate (Ferosul) 325 Mg (65 Mg Iron) Tablet 325 MG PO BID@12,17 for Build Red Blood Cells, #60 TAB Gabapentin (Gabapentin) 100 Mg Cap 300 MG PO Q24H for Pain Management, #90 CAP Lactobacillus Acidophilus (Acidophilus/l-Sporogenes) 35 Million Cell-25 Million Cell Tab 1 TAB PO TID for Bowel Management, #90 TAB Metoprolol Tartrate (Metoprolol Tartrate) 25 Mg Tab 12.5 MG PO BID for Regulate Heart Beat, #60 TAB Midodrine (Midodrine) 5 Mg Tab 10 MG PO TID@07,12,17 for Blood Pressure Management, #90 TAB Oxycodone (Oxycodone) 5 Mg Tab 5 MG PO Q6H PRN for pain 6-10, #28 TAB Pantoprazole (Pantoprazole) 40 Mg Tab 40 MG PO Q12HR for Manage Heartburn, #60 TAB Sodium Hypochlorite Topical (Dakins Solution Quarter Strength Topical) 0.125% Soln 500 ML TOPICAL DAILY for wound, #9000 ML Continued Medications: Albuterol Sulfate (Proventil Mdi) 17 Gm Aero Fluticasone Propionate (Flovent Hfa) 44 Mcg Aero 2 PUFF INH BID, #1 2 Refills Methocarbamol (Methocarbamol) 500 Mg Tab 500 MG PO QID, #28 1 Refill Rashad Langston MD Nov 25, 2017 16:25
== END 2017-11-25 17:49 | disposition home health service (06) | DRG 870 ==
LOC: NEPE 16:45 → NEDA 18:44 → HIME 22:35 → N04A 10-27 17:25
PROVIDERS: ADMIT Internal Medicine; ATTEND Internal Medicine
PROC: 5A1955Z Respiratory Ventilation, Greater than 96 Consecutive Hours (ICD-10-PCS; principal; 2017-10-04)
PROC: 0BH17EZ Insertion of Endotracheal Airway into Trachea, Via Natural or Artificial Opening (ICD-10-PCS; 2017-10-04)
PROC: B246ZZ4 Ultrasonography of Right and Left Heart, Transesophageal (ICD-10-PCS; 2017-10-04)
PROC: 30233N1 Transfusion of Nonautologous Red Blood Cells into Peripheral Vein, Percutaneous Approach (ICD-10-PCS; 2017-10-04)
PROC: 0W9B30Z Drainage of Left Pleural Cavity with Drainage Device, Percutaneous Approach (ICD-10-PCS; 2017-10-06)
PROC: 05H533Z Insertion of Infusion Device into Right Subclavian Vein, Percutaneous Approach (ICD-10-PCS; 2017-10-07)
PROC: 5A1D70Z Performance of Urinary Filtration, Intermittent, Less than 6 Hours Per Day (ICD-10-PCS; 2017-10-08)
PROC: 05HM33Z Insertion of Infusion Device into Right Internal Jugular Vein, Percutaneous Approach (ICD-10-PCS; 2017-10-08)
PROC: 0W9930Z Drainage of Right Pleural Cavity with Drainage Device, Percutaneous Approach (ICD-10-PCS; 2017-10-09)
PROC: 05H533Z Insertion of Infusion Device into Right Subclavian Vein, Percutaneous Approach (ICD-10-PCS; 2017-10-13)
PROC: 0W9G3ZZ Drainage of Peritoneal Cavity, Percutaneous Approach (ICD-10-PCS; 2017-11-10)
DX: A41.01 Sepsis due to Methicillin susceptible Staphylococcus aureus (principal); J96.21 Acute and chronic respiratory failure with hypoxia; D65 Disseminated intravascular coagulation [defibrination syndrome]; N17.0 Acute kidney failure with tubular necrosis; I26.90 Septic pulmonary embolism without acute cor pulmonale; I33.0 Acute and subacute infective endocarditis; J69.0 Pneumonitis due to inhalation of food and vomit; R18.8 Other ascites; I31.3 Pericardial effusion (noninflammatory); J15.211 Pneumonia due to Methicillin susceptible Staphylococcus aureus; I50.21 Acute systolic (congestive) heart failure; E87.1 Hypo-osmolality and hyponatremia; F11.20 Opioid dependence, uncomplicated; I76 Septic arterial embolism; N10 Acute pyelonephritis; E44.0 Moderate protein-calorie malnutrition; F15.20 Other stimulant dependence, uncomplicated; L89.154 Pressure ulcer of sacral region, stage 4; L89.324 Pressure ulcer of left buttock, stage 4; L89.314 Pressure ulcer of right buttock, stage 4; I27.20 Pulmonary hypertension, unspecified; I07.1 Rheumatic tricuspid insufficiency; I37.1 Nonrheumatic pulmonary valve insufficiency; R16.2 Hepatomegaly with splenomegaly, not elsewhere classified; E86.0 Dehydration; F17.210 Nicotine dependence, cigarettes, uncomplicated; J45.909 Unspecified asthma, uncomplicated; R00.0 Tachycardia, unspecified; M54.9 Dorsalgia, unspecified; R19.7 Diarrhea, unspecified; R65.20 Severe sepsis without septic shock; D63.1 Anemia in chronic kidney disease; E83.51 Hypocalcemia; D64.89 Other specified anemias; B19.20 Unspecified viral hepatitis C without hepatic coma; F12.10 Cannabis abuse, uncomplicated; G89.0 Central pain syndrome; T40.2X5A Adverse effect of other opioids, initial encounter; R20.0 Anesthesia of skin; Y92.230 Patient room in hospital as the place of occurrence of the external cause; W01.0XXA Fall on same level from slipping, tripping and stumbling without subsequent striking against object, initial encounter; Z51.5 Encounter for palliative care; F41.1 Generalized anxiety disorder; F32.9 Major depressive disorder, single episode, unspecified; Z81.8 Family history of other mental and behavioral disorders; Z80.52 Family history of malignant neoplasm of bladder; G47.00 Insomnia, unspecified; Z84.89 Family history of other specified conditions; N18.9 Chronic kidney disease, unspecified; R76.8 Other specified abnormal immunological findings in serum
CPT/HCPCS: 32551; 32557; 36430; 36556; 36600; 49083; 71045; 71250; 71260; 74018; 74176; 74177; 76700; 76705; 76937; 80048; 80053; 80061; 80069; 80074; 80076; 80202; 80307; 81001; 82042; 82140; 82150; 82247; 82248; 82390; 82533; 82550; 82728; 82805; 82945; 83010; 83520; 83540; 83605; 83615; 83690; 83735; 83930; 83935; 83986; 84100; 84132; 84155; 84157; 84300; 84484; 84550; 85007; 85018; 85025; 85027; 85610; 85652; 85730; 86022; 86038; 86039; 86140; 86160; 86255; 86403; 86703; 86850; 86900; 86901; 86920; 87015; 87040; 87070; 87086; 87102; 87116; 87147; 87186; 87205; 87206; 87449; 87493; 87522; 87535; 87641; 87804; 87902; 88112; 88305; 89051; 90935; 92960; 93005; 93306; 93308; 93312; 93320; 93325; 93970; 94002; 94003; 94150; 94640; 94664; 94667; 94668; 96374; 96375; 99152; 99153; 99291; C1729; C1769; C9113; J0131; J0456; J0610; J0690; J0692; J0712; J1580; J1630; J1644; J1815; J1940; J2060; J2150; J2250; J2270; J2310; J2405; J2543; J2700; J2997; J3010; J3370; J3475; J3480; J7030; J7040; J7050; J7613; P9016; P9047; Q4081; Q9963; Q9967